=== PATIENT | female | born 1960 | race Caucasian/White ===

== ENCOUNTER → 2017-06-06 | Outpatient (CLI) | payer BC, MEDICARE ==
--- NOTE | 2017-06-06 13:04 | MR ---
EXAMINATION TYPE: MR lumbar spine wo con DATE OF EXAM: 06/06/2017 12:48 PM COMPARISON: 01/25/2013 HISTORY: Low back pain radiating into rt leg Multiplanar, MultiSpin echo imaging of the lumbar spine was performed. L1-L2: Normal disc appearance without desiccation. No herniation, protrusion or disc bulging. No ca nal stenosis is present. Foramina are patent bilaterally. L2-L3: Vacuum disc changes are again noted. Degenerative endplate marrow changes identified. Mild pos terocentral disc protrusion. No evidence for lateral recess stenosis or central stenosis. Visualized foramina are patent bilaterally. Ventral spurring is noted. L3 hemangioma again seen. L3-L4: Normal disc appearance without desiccation. No herniation, protrusion or disc bulging. No ca nal stenosis is present. Foramina are patent bilaterally. L4-L5: Mild disc desiccation noted. Mild posterocentral disc bulge. No herniation identified. No evid ence for central stenosis or foraminal encroachment. No evidence for foraminal encroachment. Mild fac et joint arthropathy. L5-S1: Mild disc desiccation seen. 2 mm anterolisthesis L5 on S1. Severe facet joint arthropathy. Mil d disc bulging posteriorly. No evidence for lateral recess stenosis or central stenosis. Lumbar segments are intact. No paraspinal masses are identified. Conus medullaris has a normal appe arance. IMPRESSION: 1. Progressive degenerative disc disease at L2-3 with the mild posterocentral disc protrusion. 2. Mild disc desiccation L4-5 and L5-S1. Mild disc bulging at each of these levels. 3. Grade 1 anterolisthesis L5 on S1.
== END | disposition home or self-care (01) ==
LOC: RADMRIMAIN 12:05
PROVIDERS: ATTEND Psychiatry & Neurology Neurology
DX: M51.36 Other intervertebral disc degeneration, lumbar region (principal); M51.26 Other intervertebral disc displacement, lumbar region; M47.816 Spondylosis without myelopathy or radiculopathy, lumbar region
CPT/HCPCS: 72148

== ENCOUNTER → 2017-07-28 | Outpatient (CLI) | payer BC, MEDICARE ==
[2017-07-28 12:05] LABS: ALT 54 U/L (9-52); AST 29 U/L (14-36); Alkaline Phosphatase 68 U/L (38-126); Anion Gap 8 mmol/L; Blood Urea Nitrogen 16 mg/dL (7-17); CH 29.4; CHCM 33.3; Calcium 9.8 mg/dL (8.4-10.2); Carbon Dioxide 25 mmol/L (22-30); Chloride 108 mmol/L (98-107); Glucose 81 mg/dL (74-99); HCT 40.6 % (34.0-46.0); HDW 2.91; HGB 13.3 gm/dL (11.4-16.0); MCH 29.1 pg (25.0-35.0); MCHC 32.8 g/dL (31.0-37.0); MCV 88.7 fL (80.0-100.0); Mean Platelet Volume 7.6; Non-African American GFR(MDRD) >60 (>60 ml/min/1.73 sqM); Potassium 4.4 mmol/L (3.5-5.1); RBC 4.58 m/uL (3.80-5.40); RDW 14.1 % (11.5-15.5); Sodium 141 mmol/L (137-145); Total Bilirubin 1.1 mg/dL (0.2-1.3); WBC 5.7 k/uL (3.8-10.6)
[2017-07-28 12:21] LABS: Rheumatoid Factor, Qnt 174 IU/mL (<12)
[2017-07-28 13:24] LABS: Erythrocyte Sedimentation Rate 9 mm/hr (0-20)
== END | disposition home or self-care (01) ==
LOC: LABWHC1 11:32
PROVIDERS: ATTEND Internal Medicine
DX: M06.9 Rheumatoid arthritis, unspecified (principal)
CPT/HCPCS: 36415; 80053; 82746; 85027; 85652; 86431

== ENCOUNTER → 2017-08-08 | Outpatient (CLI) | payer BC, MEDICARE ==
--- NOTE | 2017-08-08 16:35 | US ---
EXAMINATION TYPE: US axilla RT DATE OF EXAM: 08/08/2017 COMPARISON: NONE CLINICAL HISTORY: R22.9 Right Axilla Mass. Right axilla tenderness x 1 month, no palpable by patient or physician, no recent infection or illness Scanned right axilla and single mildly enlarged right axillary lymph node measures 1.3 cm in short ax is and demonstrates eccentric cortical thickening of 5 mm. IMPRESSION: Minimally enlarged mildly suspicious right axillary lymph node demonstrates eccentric co rtical thickening. This appears to be a deep lymph node. Surveillance could be performed. Mammography is also recommended if not recently performed.
== END | disposition home or self-care (01) ==
LOC: RADUSWWP 15:59
PROVIDERS: ATTEND Internal Medicine
DX: R22.9 Localized swelling, mass and lump, unspecified (principal); Z88.0 Allergy status to penicillin; Z88.2 Allergy status to sulfonamides; Z88.1 Allergy status to other antibiotic agents; Z88.5 Allergy status to narcotic agent; Z88.6 Allergy status to analgesic agent; Z88.8 Allergy status to other drugs, medicaments and biological substances; Z91.030 Bee allergy status; Z91.018 Allergy to other foods

== ENCOUNTER → 2017-08-22 | Outpatient (CLI) | payer BC, MEDICARE ==
--- NOTE | 2017-08-22 11:57 | MM ---
Reason for exam: clinical finding. Last mammogram was performed 12 years and 8 months ago. Physical Findings: Nurse did not find any significant physical abnormalities on exam. MG 3D Diag Mammo W/Cad LOGAN Bilateral CC and MLO view(s) were taken. Prior study comparison: December 28, 2004, bilateral screening mammogram. The breast tissue is heterogeneously dense. This may lower the sensitivity of mammography. No suspicious abnormality on the left breast. Upper outer quadrant focal asymmetry on the right breast 10cm from nipple. Possible summation artifact. Precautionary ultrasound will be performed. These results were verbally communicated with the patient and result sheet given to the patient on 08/22/17. ASSESSMENT: Incomplete: need additional imaging evaluation, BI-RAD 0 RECOMMENDATION: Ultrasound of the right breast. (upper outer quadrant)
--- NOTE | 2017-08-22 11:58 | USB ---
Reason for exam: additional evaluation requested from abnormal screening. US Breast Limited RT Right breast ultrasound demonstrates no cystic or solid lesion seen. No suspicious sonographic finding. These results were verbally communicated with the patient and result sheet given to the patient on 08/22/17. ASSESSMENT: Negative, BI-RAD 1 RECOMMENDATION: Routine screening mammogram of both breasts in 1 year.
== END | disposition home or self-care (01) ==
LOC: RADMAMWWP 09:36
PROVIDERS: ATTEND Internal Medicine
DX: R92.8 Other abnormal and inconclusive findings on diagnostic imaging of breast (principal); N64.4 Mastodynia; N63.0 Unspecified lump in unspecified breast
CPT/HCPCS: 76642; G0204; G0279

== ENCOUNTER → 2017-11-10 | Outpatient (CLI) | payer BC, MEDICARE ==
[2017-11-10 14:05] LABS: INR 1.6 (<1.2); Prothrombin Time 14.4 sec (9.0-12.0)
== END | disposition home or self-care (01) ==
LOC: EDSTATUS 11:32 → LABWHC1 13:28
PROVIDERS: ATTEND Internal Medicine
DX: M06.9 Rheumatoid arthritis, unspecified (principal); R94.5 Abnormal results of liver function studies; Z86.718 Personal history of other venous thrombosis and embolism
CPT/HCPCS: 36415; 85610

== ENCOUNTER → 2017-12-13 | Outpatient (CLI) | payer BC, MEDICARE ==
[2017-12-13 20:50] LABS: Cardiolipin Ab IgG Interp NEGATIVE (NEGATIVE); Cardiolipin Ab IgM Interp NEGATIVE (NEGATIVE); Cardiolipin IgA Antibody <0.5 U/mL; Cardiolipin IgM Antibody 2.8 U/mL
== END | disposition home or self-care (01) ==
LOC: LABWHC1 13:53
PROVIDERS: ATTEND Internal Medicine Hematology & Oncology
DX: I82.409 Acute embolism and thrombosis of unspecified deep veins of unspecified lower extremity (principal)
CPT/HCPCS: 36415; 86146; 86147

== ENCOUNTER → 2018-12-04 | Outpatient (CLI) | payer BC, MEDICARE ==
[2018-12-04 13:07] LABS: HCT 41.7 % (34.0-46.0); HGB 13.2 gm/dL (11.4-16.0); MCH 27.8 pg (25.0-35.0); MCHC 31.6 g/dL (31.0-37.0); Platelet Count 290 k/uL (150-450); RBC 4.73 m/uL (3.80-5.40); RDW 14.5 % (11.5-15.5); WBC 6.2 k/uL (3.8-10.6)
[2018-12-04 13:14] LABS: INR 1.8 (<1.2); Prothrombin Time 17.4 sec (9.0-12.0)
[2018-12-04 15:22] LABS: Erythrocyte Sedimentation Rate 9 mm/hr (0-20)
[2018-12-04 19:03] LABS: Albumin 4.2 g/dL (3.80-4.90); Anion Gap 9.2 mmol/L (4.00-12.00); Bilirubin, Conjugated 0.2 mg/dL (0.20-0.40); Bilirubin,Unconjugated 0.5 mg/dL; Carbon Dioxide 24.8 mmol/L (21.6-31.8); Globulin 2.1 g/dL (1.6-3.3); Potassium 3.8 mmol/L (3.5-5.5); Total Bilirubin 0.7 mg/dL (0.2-1.2); Total Protein 6.3 g/dL (6.2-8.2)
[2018-12-04 19:07] LABS: Folate, Serum 3.2 ng/mL; Vitamin D 25 Hydroxy 15.6 ng/mL (30.0-100.0)
== END | disposition home or self-care (01) ==
LOC: LABWHC1 12:15
PROVIDERS: ATTEND Internal Medicine
DX: E55.9 Vitamin D deficiency, unspecified (principal); M06.9 Rheumatoid arthritis, unspecified; Z79.01 Long term (current) use of anticoagulants
CPT/HCPCS: 36415; 80053; 82248; 82306; 82607; 82746; 84439; 84443; 85027; 85610; 85652; 86431

== ENCOUNTER → 2019-03-13 | Outpatient (CLI) | payer BC, MEDICARE ==
--- NOTE | 2019-03-14 13:24 | MM ---
Reason for exam: screening (asymptomatic). Last mammogram was performed 1 year and 7 months ago. Physical Findings: A clinical breast exam by your physician is recommended on an annual basis and results should be correlated with mammographic findings. MG 3D Screening Mammo W/Cad Bilateral CC and MLO view(s) were taken. Prior study comparison: August 22, 2017, bilateral MG 3d diag mammo w/cad LOGAN. December 28, 2004, bilateral screening mammogram. The breast tissue is heterogeneously dense. This may lower the sensitivity of mammography. There is a oval left upper outer quadrant middle depth mass. Right lateral middle depth distortion on 3D CC. ASSESSMENT: Incomplete: need additional imaging evaluation, BI-RAD 0 RECOMMENDATION: Special view mammogram of both breasts. If lesion persists on supplemental views, image directed ultrasound is recommended. [facility] will attempt to contact patient to return for supplemental views and ultrasound if indicated.
== END | disposition home or self-care (01) ==
LOC: RADMAMWWP 09:26
PROVIDERS: ATTEND Internal Medicine
DX: Z12.31 Encounter for screening mammogram for malignant neoplasm of breast (principal)
CPT/HCPCS: 77063; 77067

== ENCOUNTER → 2019-03-19 | Outpatient (CLI) | payer BC, MEDICARE ==
--- NOTE | 2019-03-19 14:45 | MM ---
Reason for exam: additional evaluation requested from abnormal screening. Last mammogram was performed less than 1 month ago. Physical Findings: Nurse did not find any significant physical abnormalities on exam. MG 3D Work Up W/Cad LOGAN Bilateral spot compression CC and spot compression MLO view(s) were taken. ML view(s) were taken of the left breast. Prior study comparison: March 13, 2019, bilateral MG 3d screening mammo w/cad. August 22, 2017, bilateral MG 3d diag mammo w/cad LOGAN. There are scattered fibroglandular densities. Benign appearing bilateral calcifications. These results were verbally communicated with the patient and result sheet given to the patient on 03/19/19. ASSESSMENT: Incomplete: need additional imaging evaluation, BI-RAD 0 RECOMMENDATION: Ultrasound of both breasts.
--- NOTE | 2019-03-19 14:46 | USB ---
Reason for exam: additional evaluation requested from abnormal screening. US Breast Workup Limited LOGAN Left limited breast ultrasound including focal area of concern, retroareolar and axilla demonstrates a 0.7 x 0.3 x 0.8cm cystic lesion at 2 o'clock and a 0.8 x 0.3 x 0.5cm mixed lesion at 3 o'clock. Right limited breast ultrasound including focal area of concern, retroareolar and axilla demonstrates no cystic or solid lesion seen. These results were verbally communicated with the patient and result sheet given to the patient on 03/19/19. ASSESSMENT: Probably benign, BI-RAD 3 RECOMMENDATION: Follow-up diagnostic mammogram and ultrasound of both breasts in 6 months.
== END | disposition home or self-care (01) ==
LOC: RADMAMWWP 13:14
PROVIDERS: ATTEND Internal Medicine
DX: R92.8 Other abnormal and inconclusive findings on diagnostic imaging of breast (principal)
CPT/HCPCS: 77062; 77066

== ENCOUNTER → 2019-07-26 | Outpatient (CLI) | payer BC, MEDICARE ==
[2019-07-26 12:28] LABS: HCT 40.2 % (34.0-46.0); MCH 30.1 pg (25.0-35.0); MCHC 34.9 g/dL (31.0-37.0); MCV 86.2 fL (80.0-100.0); Mean Platelet Volume 6.3; Platelet Count 317 k/uL (150-450); RBC 4.66 m/uL (3.80-5.40); RDW 13.2 % (11.5-15.5); WBC 11.5 k/uL (3.8-10.6)
[2019-07-26 12:41] LABS: INR 0.9 (<1.2); Prothrombin Time 10.1 sec (9.0-12.0)
[2019-07-26 13:46] LABS: Erythrocyte Sedimentation Rate 9 mm/hr (0-20)
[2019-07-26 19:01] LABS: Folate, Serum 5.9 ng/mL
[2019-07-26 19:14] LABS: Albumin 4.1 g/dL (3.80-4.90); Albumin/Globulin Ratio 2.05 (1.60-3.17); Bilirubin, Conjugated 0.4 mg/dL (0.20-0.40); Bilirubin,Unconjugated 1.3 mg/dL; Total Bilirubin 1.7 mg/dL (0.3-1.2); Total Protein 6.1 g/dL (6.2-8.2)
== END | disposition home or self-care (01) ==
LOC: LABWHC1 11:38
PROVIDERS: ATTEND Internal Medicine
DX: M06.9 Rheumatoid arthritis, unspecified (principal); E55.9 Vitamin D deficiency, unspecified; D68.318 Other hemorrhagic disorder due to intrinsic circulating anticoagulants, antibodies, or inhibitors; Z79.899 Other long term (current) drug therapy
CPT/HCPCS: 36415; 80076; 82306; 82607; 82746; 84439; 84443; 85027; 85610; 85652; 86431

== ENCOUNTER → 2019-09-20 | Outpatient (CLI) | payer BC, MEDICARE ==
--- NOTE | 2019-09-20 11:50 | MM ---
Reason for exam: follow-up at short interval from prior study. Last mammogram was performed 6 months ago. Physical Findings: Nurse did not find any significant physical abnormalities on exam. MG 3D Diag Mammo W/Cad LOGAN Bilateral CC and MLO view(s) were taken. XCCL view(s) were taken of the right breast. Prior study comparison: March 19, 2019, bilateral MG 3d work up w/cad LOGAN. March 13, 2019, bilateral MG 3d screening mammo w/cad. There are scattered fibroglandular densities. There is chronic nodularity bilaterally. No significant new findings when compared with previous films. These results were verbally communicated with the patient and result sheet given to the patient on 09/20/19. ASSESSMENT: Incomplete: need additional imaging evaluation, BI-RAD 0 RECOMMENDATION: Ultrasound of both breasts. (upper outer quadrant as follow up from prior)
--- NOTE | 2019-09-20 11:54 | USB ---
Reason for exam: follow-up at short interval from prior study. US Breast Limited BILAT Right limited breast ultrasound including focal area of concern, retroareolar and axilla demonstrates a 2.3 x 2.5 x 1.3cm lymph node at the axilla. Left limited breast ultrasound including focal area of concern, retroareolar and axilla demonstrates a 0.5 x 0.6 x 0.4cm oval, lobular, cystic, benign lesion at 2 o'clock, a 0.8 x 0.4 x 0.2cm oval, cystic, benign lesion at 3 o'clock, questionable ductal ectasia and a 2.1 x 2.3 x 0.8cm lymph node at the axilla. Scanned bilateral upper outer quadrants. These results were verbally communicated with the patient and result sheet given to the patient on 09/20/19. ASSESSMENT: Probably benign, BI-RAD 3 RECOMMENDATION: Follow-up diagnostic mammogram of both breasts in 6 months. Manage on a clinical basis with regard to mildly enlarged bilateral axillary lymph nodes likely reactive. Unchanged in appearance on mammogram back to 2017. These can be followed clinically.
== END | disposition home or self-care (01) ==
LOC: RADMAMWWP 09:27
PROVIDERS: ATTEND Internal Medicine
DX: R92.8 Other abnormal and inconclusive findings on diagnostic imaging of breast (principal)
CPT/HCPCS: 77062; 77066

== ENCOUNTER → 2020-04-24 | Outpatient (CLI) | payer BC, MEDICARE ==
[2020-04-24 09:21] LABS: Basophils # (A) 0.1 k/uL (0-0.2); Basophils % (A) 1 %; Eosinophils # (A) 0.1 k/uL (0-0.7); Eosinophils % (A) 1 %; HCT 38.9 % (34.0-46.0); HGB 12.6 gm/dL (11.4-16.0); Lymphocytes # (A) 1.8 k/uL (1.0-4.8); Lymphocytes % (A) 30 %; MCH 28.6 pg (25.0-35.0); MCHC 32.4 g/dL (31.0-37.0); MCV 88.1 fL (80.0-100.0); Monocytes # (A) 0.3 k/uL (0-1.0); Monocytes % (A) 5 %; Neutrophils # (A) 3.9 k/uL (1.3-7.7); Neutrophils % (A) 62 %; Platelet Count 312 k/uL (150-450); RBC 4.42 m/uL (3.80-5.40); RDW 14.7 % (11.5-15.5); WBC 6.2 k/uL (3.8-10.6)
[2020-04-24 09:31] LABS: INR 1.2 (<1.2); Prothrombin Time 12.3 sec (9.0-12.0)
[2020-04-24 09:35] LABS: ALT 43 U/L (4-34); AST 34 U/L (14-36); African American GFR (CKD) >90 (>60 ml/min/1.73 sqM); Alkaline Phosphatase 70 U/L (38-126); Anion Gap 6 mmol/L; Blood Urea Nitrogen 16 mg/dL (7-17); Calcium 9.2 mg/dL (8.4-10.2); Carbon Dioxide 25 mmol/L (22-30); Chloride 109 mmol/L (98-107); Cholesterol 237 mg/dL (<200); Glucose 98 mg/dL (74-99); HDL Cholesterol 66 mg/dL (40-60); LDL Cholesterol,Calculated 155 mg/dL (0-99); Non-African American GFR(CKD) >90 (>60 ml/min/1.73 sqM); Sodium 140 mmol/L (137-145); Total Bilirubin 1.2 mg/dL (0.2-1.3); Total Protein 6.8 g/dL (6.3-8.2); Triglycerides 80 mg/dL (<150)
[2020-04-24 09:51] LABS: T4, Free (Free Thyroxine) 0.92 ng/dL (0.78-2.19)
--- NOTE | 2020-04-28 11:56 | MM ---
Reason for exam: additional evaluation requested from prior study. Last mammogram was performed 7 months ago. History: Patient is postmenopausal. Physical Findings: Nurse did not find any significant physical abnormalities on exam. MG 3D Diag Mammo W/Cad LOGAN Bilateral CC, MLO, and XCCL view(s) were taken. Prior study comparison: September 20, 2019, bilateral MG 3d diag mammo w/cad LOGAN. March 19, 2019, bilateral MG 3d work up w/cad LOGAN. The breast tissue is heterogeneously dense. This may lower the sensitivity of mammography. There is chronic nodularity bilaterally. These results were verbally communicated with the patient and result sheet given to the patient on 04/24/20. ASSESSMENT: Benign, BI-RAD 2 RECOMMENDATION: Routine screening mammogram of both breasts in 6 months.
--- NOTE | 2020-04-28 11:57 | USB ---
Reason for exam: follow-up at short interval from prior study. History: Patient is postmenopausal. US Breast Limited BILAT Right limited breast ultrasound including focal area of concern, retroareolar and axilla demonstrates a 11mm lymph node at the axilla tail. Left limited breast ultrasound including focal area of concern, retroareolar and axilla demonstrates a 8mm lymph node at the axilla tail. These results were verbally communicated with the patient and result sheet given to the patient on 04/24/20. ASSESSMENT: Benign, BI-RAD 2 RECOMMENDATION: Routine screening mammogram of both breasts in 6 months. Back on schedule.
== END | disposition home or self-care (01) ==
LOC: RADMAMWWP 08:42
PROVIDERS: ATTEND Internal Medicine
DX: R92.8 Other abnormal and inconclusive findings on diagnostic imaging of breast (principal); E03.9 Hypothyroidism, unspecified; M06.9 Rheumatoid arthritis, unspecified; Z79.01 Long term (current) use of anticoagulants; Z79.899 Other long term (current) drug therapy
CPT/HCPCS: 36415; 77062; 77066; 80053; 80061; 80299; 82306; 82607; 84439; 84443; 84481; 85025; 85610

== ENCOUNTER → 2020-07-01 | Outpatient (CLI) | payer BC, MEDICARE ==
[2020-07-01 13:42] LABS: INR 1.4 (<1.2); Prothrombin Time 13.5 sec (9.0-12.0)
== END | disposition home or self-care (01) ==
LOC: LABWHC1 12:44
PROVIDERS: ATTEND Orthopaedic Surgery Hand Surgery
DX: Z01.818 Encounter for other preprocedural examination (principal)
CPT/HCPCS: 36415; 85610

== ENCOUNTER 2020-07-04 16:33 | Emergency (ER) | payer BC, MEDICARE ==
[2020-07-04 16:47] VITALS: TEMP 98.1
[2020-07-04] MEDS ORDERED: SODIUM CHLORIDE 0.9% 1,000 ML IV STA (16:53)
[2020-07-04] MEDS ORDERED: MORPHINE SULFATE 4 MG/ML SYRINGE IV STA (16:53)
--- NOTE | 2020-07-04 16:54 | ED ---
SOB HPI - General Chief Complaint: Shortness of Breath Stated Complaint: trouble breathing Time Seen by Provider: 07/04/20 16:53 Source: patient, RN notes reviewed, old records reviewed Mode of arrival: ambulatory Limitations: no limitations - History of Present Illness Initial Comments: This is a 5-year-old female DF for evaluation she has left under arm pain, patient did recently have carpal surgery L surgery. Head pain and left-sided of her chest. Surgery done by Dr. Rodgers about a week ago she started Coumadin yesterday has history of DVT and PE coming in for concern of possible PE. Otherwise patient has no shortness of breath no cough or congestion no other significant symptoms. Patient here for rule out PE MD Complaint: chest pain (Left-sided chest pain under arm pain), anxiety (Patient feels like she does have a PE) -: days(s) Radiation: left arm Severity: mild Severity scale (1-10): 3 Quality: aching Consistency: constant Improves With: nothing Worsens With: nothing Known History Of: DVT Context: other (Recent surgery) Associated Symptoms: chest pain Treatments Prior to Arrival: none - Related Data Home Medications Medication Instructions Recorded Confirmed Celecoxib [CeleBREX] 200 mg PO DAILY 07/04/20 07/04/20 Ergocalciferol [Vitamin D2] 50,000 unit PO MORRIS 07/04/20 07/04/20 Gabapentin 300 mg PO DAILY 07/04/20 07/04/20 LORazepam [Ativan] 0.5 mg PO DAILY PRN 07/04/20 07/04/20 Meloxicam [Mobic] 7.5 mg PO DAILY 07/04/20 07/04/20 Warfarin Sodium [Jantoven] 6 mg PO DAILY 07/04/20 07/04/20 metHOTREXate sodium [Methotrexate] 20 mg PO MORRIS 07/04/20 07/04/20 Allergies Allergy/AdvReac Type Severity Reaction Status Date / Time cefaclor [From Ceclor] Allergy Unknown Verified 07/04/20 18:57 cephalexin [From Keflex] Allergy Unknown Verified 07/04/20 18:57 cyclobenzaprine Allergy Unknown Verified 07/04/20 18:57 [From Flexeril] Penicillins Allergy Unknown Verified 07/04/20 18:57 Sulfa (Sulfonamide Allergy Unknown Verified 07/04/20 18:57 Antibiotics) acetaminophen [From Tylenol] AdvReac Rash/Hives Verified 07/04/20 18:57 codeine AdvReac Rash/Hives Verified 07/04/20 18:57 erythromycin base AdvReac Rash/Hives Verified 07/04/20 18:57 Review of Systems ROS Statement: Those systems with pertinent positive or pertinent negative responses have been documented in the HPI. ROS Other: All systems not noted in ROS Statement are negative. Past Medical History Additional Past Medical History / Comment(s): Clotting disorder. arthritis. 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 plate neck Past Psychological History: No Psychological Hx Reported Smoking Status: Never smoker Past Alcohol Use History: None Reported Past Drug Use History: None Reported General Exam Limitations: no limitations General appearance: alert, in no apparent distress Head exam: Present: atraumatic, normocephalic, normal inspection Eye exam: Present: normal appearance, PERRL, EOMI. Absent: scleral icterus, conjunctival injection, periorbital swelling ENT exam: Present: normal exam, mucous membranes moist Neck exam: Present: normal inspection. Absent: tenderness, meningismus, lymphadenopathy Respiratory exam: Present: normal lung sounds bilaterally. Absent: respiratory distress, wheezes, rales, rhonchi, stridor Cardiovascular Exam: Present: regular rate, normal rhythm, normal heart sounds. Absent: systolic murmur, diastolic murmur, rubs, gallop, clicks GI/Abdominal exam: Present: soft, normal bowel sounds. Absent: distended, tenderness, guarding, rebound, rigid Extremities exam: Present: normal inspection, full ROM, normal capillary refill. Absent: tenderness, pedal edema, joint swelling, calf tenderness Back exam: Present: normal inspection Neurological exam: Present: alert, oriented X3, CN II-XII intact Psychiatric exam: Present: normal affect, normal mood Skin exam: Present: warm, dry, intact, normal color. Absent: rash Course Vital Signs 07/04/20 07/04/20 16:42 18:45 Temperature 98.1 F Pulse Rate 64 69 Respiratory 20 18 Rate Blood Pressure 194/79 162/82 O2 Sat by Pulse 97 98 Oximetry - Reevaluation(s) Reevaluation #1: 07/04/20 19:02 Medical records reviewed Reevaluation #2: 07/04/20 19:02 Spoke patient regarding findings and symptoms here in the emergency room Reevaluation #3: 07/04/20 19:02 Patient informed of negative speed test, she is happy with results, Medical Decision Making - Medical Decision Making 59 female DF for evaluation rule out PE history of DVT PE been off Coumadin secondary surgery did start Coumadin again yesterday although not currently therapeutic. Patient will continue medication, CT negative for PE and patient can be discharged home - Lab Data Result diagrams: 07/04/20 17:14 07/04/20 17:14 Lab Results 07/04/20 07/04/20 07/04/20 Range/Units 17:14 17:14 17:14 WBC 6.7 (3.8-10.6) k/uL RBC 4.65 (3.80-5.40) m/uL Hgb 13.9 (11.4-16.0) gm/dL Hct 41.6 (34.0-46.0) % MCV 89.5 (80.0-100.0) fL MCH 29.8 (25.0-35.0) pg MCHC 33.4 (31.0-37.0) g/dL RDW 14.1 (11.5-15.5) % Plt Count 315 (150-450) k/uL Neutrophils % 53 % Lymphocytes % 35 % Monocytes % 7 % Eosinophils % 2 % Basophils % 1 % Neutrophils # 3.6 (1.3-7.7) k/uL Lymphocytes # 2.4 (1.0-4.8) k/uL Monocytes # 0.5 (0-1.0) k/uL Eosinophils # 0.1 (0-0.7) k/uL Basophils # 0.1 (0-0.2) k/uL PT 10.3 (9.0-12.0) sec INR 1.0 (<1.2) APTT 22.2 (22.0-30.0) sec D-Dimer 0.70 H (<0.60) mg/L FEU Sodium 139 (137-145) mmol/L Potassium 4.1 (3.5-5.1) mmol/L Chloride 106 (98-107) mmol/L Carbon Dioxide 25 (22-30) mmol/L Anion Gap 8 mmol/L BUN 19 H (7-17) mg/dL Creatinine 0.80 (0.52-1.04) mg/dL Est GFR (CKD-EPI)AfAm >90 (>60 ml/min/1.73 sqM) Est GFR (CKD-EPI)NonAf 81 (>60 ml/min/1.73 sqM) Glucose 167 H (74-99) mg/dL Calcium 9.6 (8.4-10.2) mg/dL Magnesium 2.2 (1.6-2.3) mg/dL Total Bilirubin 0.9 (0.2-1.3) mg/dL AST 27 (14-36) U/L ALT 20 (4-34) U/L Alkaline Phosphatase 79 (38-126) U/L Troponin I (0.000-0.034) ng/mL NT-Pro-B Natriuret Pep pg/mL Total Protein 7.2 (6.3-8.2) g/dL Albumin 4.2 (3.5-5.0) g/dL 07/04/20 07/04/20 Range/Units 17:14 17:14 WBC (3.8-10.6) k/uL RBC (3.80-5.40) m/uL Hgb (11.4-16.0) gm/dL Hct (34.0-46.0) % MCV (80.0-100.0) fL MCH (25.0-35.0) pg MCHC (31.0-37.0) g/dL RDW (11.5-15.5) % Plt Count (150-450) k/uL Neutrophils % % Lymphocytes % % Monocytes % % Eosinophils % % Basophils % % Neutrophils # (1.3-7.7) k/uL Lymphocytes # (1.0-4.8) k/uL Monocytes # (0-1.0) k/uL Eosinophils # (0-0.7) k/uL Basophils # (0-0.2) k/uL PT (9.0-12.0) sec INR (<1.2) APTT (22.0-30.0) sec D-Dimer (<0.60) mg/L FEU Sodium (137-145) mmol/L Potassium (3.5-5.1) mmol/L Chloride (98-107) mmol/L Carbon Dioxide (22-30) mmol/L Anion Gap mmol/L BUN (7-17) mg/dL Creatinine (0.52-1.04) mg/dL Est GFR (CKD-EPI)AfAm (>60 ml/min/1.73 sqM) Est GFR (CKD-EPI)NonAf (>60 ml/min/1.73 sqM) Glucose (74-99) mg/dL Calcium (8.4-10.2) mg/dL Magnesium (1.6-2.3) mg/dL Total Bilirubin (0.2-1.3) mg/dL AST (14-36) U/L ALT (4-34) U/L Alkaline Phosphatase (38-126) U/L Troponin I <0.012 (0.000-0.034) ng/mL NT-Pro-B Natriuret Pep 41 pg/mL Total Protein (6.3-8.2) g/dL Albumin (3.5-5.0) g/dL - EKG Data -: EKG Interpreted by Me (EKG shows sinus rhythm 60 [place] 202 QRS 96 QTc 424) - Radiology Data Radiology results: report reviewed (CT negative for PE), image reviewed Disposition Clinical Impression: Left arm pain Narrative: ro PE Disposition: HOME SELF-CARE Condition: Good Instructions (If sedation given, give patient instructions): Arm Pain (ED) Is patient prescribed a controlled substance at d/c from ED?: No Referrals: Luis Felipe Gay MD [Primary Care Provider] - 1-2 days
[2020-07-04 17:32] LABS: Basophils # (A) 0.1 k/uL (0-0.2); Basophils % (A) 1 %; Eosinophils # (A) 0.1 k/uL (0-0.7); Eosinophils % (A) 2 %; HCT 41.6 % (34.0-46.0); HGB 13.9 gm/dL (11.4-16.0); Lymphocytes # (A) 2.4 k/uL (1.0-4.8); Lymphocytes % (A) 35 %; MCH 29.8 pg (25.0-35.0); MCHC 33.4 g/dL (31.0-37.0); MCV 89.5 fL (80.0-100.0); Monocytes # (A) 0.5 k/uL (0-1.0); Monocytes % (A) 7 %; Neutrophils # (A) 3.6 k/uL (1.3-7.7); Neutrophils % (A) 53 %; Platelet Count 315 k/uL (150-450); RBC 4.65 m/uL (3.80-5.40); RDW 14.1 % (11.5-15.5); WBC 6.7 k/uL (3.8-10.6)
[2020-07-04 17:37] LABS: ALT 20 U/L (4-34); AST 27 U/L (14-36); African American GFR (CKD) >90 (>60 ml/min/1.73 sqM); Albumin 4.2 g/dL (3.5-5.0); Alkaline Phosphatase 79 U/L (38-126); Anion Gap 8 mmol/L; Blood Urea Nitrogen 19 mg/dL (7-17); Calcium 9.6 mg/dL (8.4-10.2); Carbon Dioxide 25 mmol/L (22-30); Chloride 106 mmol/L (98-107); Glucose 167 mg/dL (74-99); Magnesium 2.2 mg/dL (1.6-2.3); Non-African American GFR(CKD) 81 (>60 ml/min/1.73 sqM); Potassium 4.1 mmol/L (3.5-5.1); Sodium 139 mmol/L (137-145); Total Bilirubin 0.9 mg/dL (0.2-1.3); Total Protein 7.2 g/dL (6.3-8.2)
[2020-07-04 17:41] LABS: Partial Thromboplastin Time 22.2 sec (22.0-30.0); Prothrombin Time 10.3 sec (9.0-12.0)
[2020-07-04 17:46] LABS: D-Dimer 0.7 mg/L FEU (<0.60)
--- NOTE | 2020-07-04 18:40 | CT ---
EXAMINATION TYPE: CT angio chest DATE OF EXAM: 07/04/2020 COMPARISON: None HISTORY: LEFT SIDE CHEST PAIN, SOB CT DLP: 441.5 mGycm Automated exposure control for dose reduction was used. CONTRAST: Performed with IV Contrast, patient injected with 100 mL of Isovue 370. There are 3-D post processed images. The lungs are clear of consolidation. There is no evidence of a pulmonary mass. There is no pericardi al effusion. There is no pleural effusion. There is normal contrast opacification of the pulmonary arteries. There are no filling defects. There is mild aneurysm of the ascending aorta that measures 4 cm. There is no dissection. The bony thorax is intact. IMPRESSION: No evidence of pulmonary embolism. Mild cardiomegaly and mild aneurysm of the thoracic aorta.
[2020-07-04 19:02] VITALS: BP 165/80; PULSE 80; RESP 16
== END 2020-07-04 19:01 | disposition home or self-care (01) ==
LOC: EC 16:33
DX: M79.602 Pain in left arm (principal); M19.90 Unspecified osteoarthritis, unspecified site; Z79.01 Long term (current) use of anticoagulants; Z79.1 Long term (current) use of non-steroidal anti-inflammatories (NSAID); Z79.899 Other long term (current) drug therapy; Z88.1 Allergy status to other antibiotic agents; Z88.8 Allergy status to other drugs, medicaments and biological substances; Z88.5 Allergy status to narcotic agent; Z88.2 Allergy status to sulfonamides; Z88.0 Allergy status to penicillin; Z88.6 Allergy status to analgesic agent; Z86.711 Personal history of pulmonary embolism; Z86.718 Personal history of other venous thrombosis and embolism
CPT/HCPCS: 36415; 93005; 85379; 83880; 80053; 83735; 84484; 85025; 85610; 85730; 71275; 99285; 96360; Q9967

== ENCOUNTER → 2021-01-07 | Outpatient (CLI) | payer BC, MEDICARE ==
--- NOTE | 2021-01-07 12:03 | MM ---
Reason for exam: follow-up at short interval from prior study. Last mammogram was performed 8 months ago. History: Patient is postmenopausal. Physical Findings: Nurse Summary: 0.5cm nodule in the left breast at 4 o'clock (nurse ignacio). MG 3D Diag Mammo W/Cad LOGAN Bilateral CC and MLO view(s) were taken. Prior study comparison: April 24, 2020, bilateral MG 3d diag mammo w/cad LOGAN. September 20, 2019, bilateral MG 3d diag mammo w/cad LOGAN. There are scattered fibroglandular densities. Finding: There are typically benign vascular, round, linear calcifications in both breasts. There is a chronic nodularity in the left breast. There is no discrete abnormality. These results were verbally communicated with the patient and result sheet given to the patient on 01/07/21. ASSESSMENT: Incomplete: need additional imaging evaluation, BI-RAD 0 RECOMMENDATION: Ultrasound of the left breast.
--- NOTE | 2021-01-07 12:05 | USB ---
Reason for exam: additional evaluation requested from abnormal screening. History: Patient is postmenopausal. US Breast Limited LT Left limited breast ultrasound including focal area of concern, retroareolar and axilla demonstrates a 1.0 x 0.4 x 0.6cm oval, mixed lesion at 4 o'clock, stable from ultrasound of 09/20/19 3 o'clock lesion and a 1.8cm lymph node at the axilla. These results were verbally communicated with the patient and result sheet given to the patient on 01/07/21. ASSESSMENT: Benign, BI-RAD 2 RECOMMENDATION: Routine screening mammogram of both breasts. Manage patient on a clinical basis.
== END | disposition home or self-care (01) ==
LOC: RADMAMWWP 10:15
PROVIDERS: ATTEND Internal Medicine
DX: N63.20 Unspecified lump in the left breast, unspecified quadrant (principal); R92.8 Other abnormal and inconclusive findings on diagnostic imaging of breast
CPT/HCPCS: 77062; 77066

== ENCOUNTER → 2021-06-29 | Outpatient (CLI) | payer BC, MEDICARE ==
[2021-06-29 16:11] LABS: HCT 41.5 % (37.2-46.3); MCH 27.4 pg (27.0-32.0); MCHC 31.3 g/dL (32.0-37.0); MCV 87.4 fL (80.0-97.0); Mean Platelet Volume 11.4 fL (9.5-12.2); Platelet Count 339 X 10*3/uL (140-440); RBC 4.75 X 10*6/uL (4.10-5.20); RDW 13.4 % (11.5-14.5); WBC 9.06 X 10*3/uL (4.50-10.00)
[2021-06-29 21:51] LABS: African American GFR (CKD) 86.7 (60.0-200.0); Albumin 3.9 g/dL (3.8-4.9); Albumin/Globulin Ratio 1.55 (1.60-3.17); Anion Gap 15.8 mmol/L (4.00-12.00); BUN/Creat Ratio 18.53 Ratio (12.00-20.00); Blood Urea Nitrogen 15.6 mg/dL (9.0-27.0); Carbon Dioxide 19.3 mmol/L (21.6-31.8); Chol/HDL Ratio 3.33 Ratio; Globulin 2.5 g/dL (1.6-3.3); HDL Cholesterol 68.8 mg/dL (40.00-60.00); LDL Cholesterol,Calculated 138.6 mg/dL (0.0-131.0); Non-African American GFR(CKD) 74.8 (60.0-200.0); Potassium 4.2 mmol/L (3.5-5.5); T4, Free (Free Thyroxine) 1.09 ng/dL (0.800-1.800); Total Bilirubin 1.3 mg/dL (0.30-1.20); Total Protein 6.5 g/dL (6.2-8.2); VLDL Calculation 21.6 mg/dL (5.00-40.00)
== END | disposition home or self-care (01) ==
LOC: LABWHC1 08:30
PROVIDERS: ATTEND Internal Medicine
DX: E78.5 Hyperlipidemia, unspecified (principal); R53.82 Chronic fatigue, unspecified
CPT/HCPCS: 36415; 80053; 80061; 82306; 82607; 84439; 84443; 84481; 85027

== ENCOUNTER 2021-09-23 17:26 | Inpatient (IN) | payer BC, MEDICARE ==
--- NOTE | 2021-09-23 17:42 | ED ---
General Adult HPI - General Stated complaint: SOB Time Seen by Provider: 09/23/21 17:26 Source: patient, EMS, RN notes reviewed, old records reviewed Mode of arrival: EMS Limitations: no limitations - History of Present Illness Initial comments: This is a 61-year-old female who presents to the emergency department complaining of difficulty breathing since . Patient states it got progressively worse. Patient states she typically gets bronchitis 3 times here in the past which she thinks this. EMS stated her pulse ox on room air was in the 70s. They put her on a nonrebreather and is still only came up into the 80s. Patient denies chest pain difficulty breathing shortest breath per patient states she did not get COVID vaccine. Patient states she has a blood clotting disorder. Patient is on Coumadin. Patient denies any abdominal pain patient denies nausea vomiting diarrhea. Patient denies headache patient denies any numbness or weakness. Patient denies any syncopal episode. - Related Data Home Medications Medication Instructions Recorded Confirmed Ergocalciferol [Vitamin D2] 50,000 unit PO MORRIS 07/04/20 09/23/21 Meloxicam [Mobic] 7.5 mg PO DAILY 07/04/20 09/23/21 Warfarin Sodium [Jantoven] 6 mg PO DAILY 07/04/20 09/23/21 metHOTREXate sodium [Methotrexate] 20 mg PO FR 07/04/20 09/23/21 Allergies Allergy/AdvReac Type Severity Reaction Status Date / Time cefaclor [From Ceclor] Allergy Unknown Verified 09/23/21 19:51 cephalexin [From Keflex] Allergy Unknown Verified 09/23/21 19:51 cyclobenzaprine Allergy Unknown Verified 09/23/21 19:51 [From Flexeril] Penicillins Allergy Unknown Verified 09/23/21 19:51 Sulfa (Sulfonamide Allergy Unknown Verified 09/23/21 19:51 Antibiotics) acetaminophen [From Tylenol] AdvReac Rash/Hives Verified 09/23/21 19:51 codeine AdvReac Rash/Hives Verified 09/23/21 19:51 erythromycin base AdvReac Rash/Hives Verified 09/23/21 19:51 Review of Systems ROS Statement: Those systems with pertinent positive or pertinent negative responses have been documented in the HPI. ROS Other: All systems not noted in ROS Statement are negative. Past Medical History Past Medical History: Deep Vein Thrombosis (DVT), Fibromyalgia, Pneumonia Additional Past Medical History / Comment(s): Clotting disorder. arthritis. 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 plate neck Past Psychological History: No Psychological Hx Reported Smoking Status: Never smoker Past Alcohol Use History: None Reported Past Drug Use History: None Reported General Exam - General Exam Comments Initial Comments: GENERAL: Patient is well-developed and well-nourished. Patient is nontoxic and well-hydrated and is in mild distress. ENT: Neck is soft and supple. No significant lymphadenopathy is noted. Oropharynx is clear. Moist mucous membranes. Neck has full range of motion without eliciting any pain. EYES: The sclera were anicteric and conjunctiva were pink and moist. Extraocular movements were intact and pupils were equal round and reactive to light. Eyelids were unremarkable. PULMONARY: Patient has crackles on the left side and in the right base. CARDIOVASCULAR: There is a regular rate and rhythm without any murmurs gallops or rubs. ABDOMEN: Soft and nontender with normal bowel sounds. SKIN: Skin is clear with no lesions or rashes and otherwise unremarkable. NEUROLOGIC: Patient is alert and oriented x3. Cranial nerves II through XII are grossly intact. Motor and sensory are also intact. Normal speech, volume and content. Symmetrical smile. MUSCULOSKELETAL: Normal extremities with adequate strength and full range of motion. No lower extremity swelling or edema. No calf tenderness. LYMPHATICS: No significant lymphadenopathy is noted PSYCHIATRIC: Normal psychiatric evaluation. Limitations: no limitations Course Vital Signs 09/23/21 09/23/21 17:29 17:58 Temperature 98.5 F Pulse Rate 78 Respiratory 16 22 Rate Blood Pressure 110/64 O2 Sat by Pulse 80 L Oximetry Medical Decision Making - Medical Decision Making EKG shows normal sinus rhythm at 84 bpm NE interval 194 QRS is 96 QT interval 352 QTC is 4:15. Patient's EKG shows no ST segment elevation or depression. Patient received 125 Solu-Medrol in route to the ER. Patient was initially put on high flow oxygen and was satting about 85%. There were no BiPAP patient's available until later eventually switched to a BiPAP machine and she was doing better felt more comfortable and she was oxygenating 88%. Patient stated she absolutely refuses to be intubated. was in the room when she was asked these questions. I spoke with Dr. Waddell agreed to admit the patient admitted the patient wrote admitting orders. I spoke with Dr. Toshia Pope felt that the patient to be admitted to the floor and I agreed. - Lab Data Result diagrams: 09/23/21 17:53 09/23/21 18:45 Lab Results 09/23/21 09/23/21 09/23/21 Range/Units 17:39 17:53 17:53 WBC 12.1 H (3.8-10.6) k/uL RBC 4.90 (3.80-5.40) m/uL Hgb 13.4 (11.4-16.0) gm/dL Hct 41.4 (34.0-46.0) % MCV 84.5 (80.0-100.0) fL MCH 27.3 (25.0-35.0) pg MCHC 32.3 (31.0-37.0) g/dL RDW 14.1 (11.5-15.5) % Plt Count 289 (150-450) k/uL MPV 9.1 Neutrophils % 80 % Lymphocytes % 11 % Monocytes % 5 % Eosinophils % 1 % Basophils % 1 % Neutrophils # 9.8 H (1.3-7.7) k/uL Lymphocytes # 1.4 (1.0-4.8) k/uL Monocytes # 0.7 (0-1.0) k/uL Eosinophils # 0.1 (0-0.7) k/uL Basophils # 0.1 (0-0.2) k/uL PT 24.2 H (9.0-12.0) sec INR 2.5 H (<1.2) APTT 29.5 (22.0-30.0) sec D-Dimer 32.13 H (<0.60) mg/L FEU Sodium (137-145) mmol/L Potassium (3.5-5.1) mmol/L Chloride (98-107) mmol/L Carbon Dioxide (22-30) mmol/L Anion Gap mmol/L BUN (7-17) mg/dL Creatinine (0.52-1.04) mg/dL Est GFR (CKD-EPI)AfAm (>60 ml/min/1.73 sqM) Est GFR (CKD-EPI)NonAf (>60 ml/min/1.73 sqM) Glucose (74-99) mg/dL Plasma Lactic Acid El (0.7-2.0) mmol/L Calcium (8.4-10.2) mg/dL Magnesium (1.6-2.3) mg/dL Total Bilirubin (0.2-1.3) mg/dL AST (14-36) U/L ALT (4-34) U/L Alkaline Phosphatase (38-126) U/L Troponin I (0.000-0.034) ng/mL NT-Pro-B Natriuret Pep pg/mL Total Protein (6.3-8.2) g/dL Albumin (3.5-5.0) g/dL Coronavirus (PCR) Not Detected (Not Detectd) 09/23/21 09/23/21 09/23/21 Range/Units 17:53 18:45 18:45 WBC (3.8-10.6) k/uL RBC (3.80-5.40) m/uL Hgb (11.4-16.0) gm/dL Hct (34.0-46.0) % MCV (80.0-100.0) fL MCH (25.0-35.0) pg MCHC (31.0-37.0) g/dL RDW (11.5-15.5) % Plt Count (150-450) k/uL MPV Neutrophils % % Lymphocytes % % Monocytes % % Eosinophils % % Basophils % % Neutrophils # (1.3-7.7) k/uL Lymphocytes # (1.0-4.8) k/uL Monocytes # (0-1.0) k/uL Eosinophils # (0-0.7) k/uL Basophils # (0-0.2) k/uL PT (9.0-12.0) sec INR (<1.2) APTT (22.0-30.0) sec D-Dimer (<0.60) mg/L FEU Sodium (137-145) mmol/L Potassium (3.5-5.1) mmol/L Chloride (98-107) mmol/L Carbon Dioxide (22-30) mmol/L Anion Gap mmol/L BUN (7-17) mg/dL Creatinine (0.52-1.04) mg/dL Est GFR (CKD-EPI)AfAm (>60 ml/min/1.73 sqM) Est GFR (CKD-EPI)NonAf (>60 ml/min/1.73 sqM) Glucose (74-99) mg/dL Plasma Lactic Acid El 1.5 (0.7-2.0) mmol/L Calcium (8.4-10.2) mg/dL Magnesium (1.6-2.3) mg/dL Total Bilirubin (0.2-1.3) mg/dL AST (14-36) U/L ALT (4-34) U/L Alkaline Phosphatase (38-126) U/L Troponin I <0.012 (0.000-0.034) ng/mL NT-Pro-B Natriuret Pep 259 pg/mL Total Protein (6.3-8.2) g/dL Albumin (3.5-5.0) g/dL Coronavirus (PCR) (Not Detectd) 09/23/21 Range/Units 18:45 WBC (3.8-10.6) k/uL RBC (3.80-5.40) m/uL Hgb (11.4-16.0) gm/dL Hct (34.0-46.0) % MCV (80.0-100.0) fL MCH (25.0-35.0) pg MCHC (31.0-37.0) g/dL RDW (11.5-15.5) % Plt Count (150-450) k/uL MPV Neutrophils % % Lymphocytes % % Monocytes % % Eosinophils % % Basophils % % Neutrophils # (1.3-7.7) k/uL Lymphocytes # (1.0-4.8) k/uL Monocytes # (0-1.0) k/uL Eosinophils # (0-0.7) k/uL Basophils # (0-0.2) k/uL PT (9.0-12.0) sec INR (<1.2) APTT (22.0-30.0) sec D-Dimer (<0.60) mg/L FEU Sodium 138 (137-145) mmol/L Potassium 3.1 L (3.5-5.1) mmol/L Chloride 106 (98-107) mmol/L Carbon Dioxide 20 L (22-30) mmol/L Anion Gap 12 mmol/L BUN 47 H (7-17) mg/dL Creatinine 1.50 H (0.52-1.04) mg/dL Est GFR (CKD-EPI)AfAm 43 (>60 ml/min/1.73 sqM) Est GFR (CKD-EPI)NonAf 37 (>60 ml/min/1.73 sqM) Glucose 122 H (74-99) mg/dL Plasma Lactic Acid El (0.7-2.0) mmol/L Calcium 8.2 L (8.4-10.2) mg/dL Magnesium 2.6 H (1.6-2.3) mg/dL Total Bilirubin 1.2 (0.2-1.3) mg/dL AST 95 H (14-36) U/L ALT 60 H (4-34) U/L Alkaline Phosphatase 90 (38-126) U/L Troponin I (0.000-0.034) ng/mL NT-Pro-B Natriuret Pep pg/mL Total Protein 6.3 (6.3-8.2) g/dL Albumin 2.9 L (3.5-5.0) g/dL Coronavirus (PCR) (Not Detectd) Critical Care Time Critical Care Time: Yes Total Critical Care Time: 35 Disposition Clinical Impression: Pneumonia, Pneumonia due to COVID-19 virus Disposition: ADMITTED IP TO THIS HOSP Referrals: Luis Felipe Gay MD [Primary Care Provider] - 1-2 days Time of Disposition: 20:54
[2021-09-23 18:12] LABS: Basophils # (A) 0.1 k/uL (0-0.2); Basophils % (A) 1 %; Eosinophils # (A) 0.1 k/uL (0-0.7); Eosinophils % (A) 1 %; HCT 41.4 % (34.0-46.0); HGB 13.4 gm/dL (11.4-16.0); Lymphocytes # (A) 1.4 k/uL (1.0-4.8); Lymphocytes % (A) 11 %; MCH 27.3 pg (25.0-35.0); MCHC 32.3 g/dL (31.0-37.0); MCV 84.5 fL (80.0-100.0); Mean Platelet Volume 9.1; Monocytes # (A) 0.7 k/uL (0-1.0); Monocytes % (A) 5 %; Neutrophils # (A) 9.8 k/uL (1.3-7.7); Neutrophils % (A) 80 %; Platelet Count 289 k/uL (150-450); RDW 14.1 % (11.5-15.5); WBC 12.1 k/uL (3.8-10.6)
[2021-09-23 18:31] LABS: INR 2.5 (<1.2); Partial Thromboplastin Time 29.5 sec (22.0-30.0); Prothrombin Time 24.2 sec (9.0-12.0)
[2021-09-23] MEDS ORDERED: LEVOFLOXACIN 750MG-D5W PMX 750 MG in DEXTROSE/WATER 1 150ML.BAG IVPB STA (18:43)
--- NOTE | 2021-09-23 19:14 | XR ---
EXAMINATION TYPE: XR chest 1V portable DATE OF EXAM: 09/23/2021 COMPARISON: Concurrent CT. HISTORY: Shortness of breath. TECHNIQUE: Single frontal view of the chest is obtained. FINDINGS: There are bilateral diffuse patchy airspace opacities. No pleural effusion, or pneumothora x seen. The cardiac silhouette size is mildly enlarged. The osseous structures are intact. IMPRESSION: Diffuse infiltrates with probable underlying pulmonary edema.
[2021-09-23] MEDS ORDERED: POTASSIUM CHLORIDE ER 20 MEQ TAB.ER PO STA (19:15)
[2021-09-23] MEDS ORDERED: POTASSIUM CHLORIDE 20 MEQ in WATER FOR INJECTION 1 100ML.BAG IVPB ONE (19:45)
[2021-09-23 19:48] LABS: Albumin 2.9 g/dL (3.5-5.0); Calcium 8.2 mg/dL (8.4-10.2); Magnesium 2.6 mg/dL (1.6-2.3); Potassium 3.1 mmol/L (3.5-5.1); Total Bilirubin 1.2 mg/dL (0.2-1.3); Total Protein 6.3 g/dL (6.3-8.2)
[2021-09-23] MEDS ORDERED: LORazepam 2 MG/ML INJ IV STA (19:59)
--- NOTE | 2021-09-23 20:14 | CT ---
EXAMINATION TYPE: CT chest angio for PE DATE OF EXAM: 09/23/2021 COMPARISON: Same-day radiograph. CT 07/04/2020. HISTORY: SOB CT DLP: 463.5 mGycm Automated exposure control for dose reduction was used. CONTRAST: CT Chest for pulmonary embolism performed with with IV Contrast, patient injected with 100 mL of Isov ue 370. FINDINGS: LUNGS: There are bilateral diffuse marked patchy groundglass opacities. There is no pleural effusio n or pneumothorax seen. The tracheobronchial tree is patent. MEDIASTINUM: There is satisfactory enhancement of the pulmonary artery and its branches, there is no CT evidence for pulmonary embolism. There are no greater than 1 cm hilar or mediastinal lymph nodes. No pericardial effusion is seen. OTHER: No additional significant abnormality is seen. Cholecystectomy noted. IMPRESSION: Findings consistent with atypical pneumonia including Covid. No acute PE.
[2021-09-23] MEDS ORDERED: PNEUMONIA PROTOCOL UTILIZED 1 EACH MISC PO PRN (21:19)
[2021-09-23] MEDS ORDERED: SODIUM CHLORIDE 0.9% 1,000 ML IV STA (21:22)
[2021-09-23] MEDS ORDERED: SODIUM CHLORIDE 0.9% 500 ML 500 ML IV ONE (21:22)
[2021-09-23 23:22] LABS: Influenza A Not Detected (Not Detectd); Influenza B Not Detected (Not Detectd)
[2021-09-24] MEDS: dexAMETHasone 2 MG TAB PO SCH (08:48)
--- NOTE | 2021-09-24 10:02 | XR ---
EXAMINATION TYPE: XR chest 1V portable DATE OF EXAM: 09/24/2021 COMPARISON: 09/23/2021 INDICATION: Pneumonia TECHNIQUE: Single frontal view of the chest is obtained. FINDINGS: The heart size is now a prominent. The pulmonary vasculature is prominent. Diffuse scattered infiltrates are present. This has improved from comparison. IMPRESSION: 1. Improving bilateral lung infiltrates. Continued follow-up is recommended.
[2021-09-24 12:22] LABS: INR 2.8 (<1.2); Prothrombin Time 26.7 sec (9.0-12.0)
--- NOTE | 2021-09-24 12:23 | P.CNPUL ---
History of Present Illness Consult date: 09/24/21 Requesting physician: Juan Trevino Reason for consult: dyspnea, cough, hypoxemia, pneumonia, abnormal CXR/CT Chief complaint: Shortness of breath. History of present illness: Pulmonary consult dated 09/24/2021. 61-year-old female who states that she's been having symptoms, since September 10. The symptoms included shortness of breath, cough, fatigue, muscle aches, and generally just not feeling well. The patient is on vaccinated. She tested positive for coronavirus on September 23. Currently, she is on BiPAP with settings of 16/8, at 100%. Her primary care physician is Dr. Dionte Bal. The patient takes Coumadin chronically for her factor V or Leiden factor deficiency. Initially, on room air, her saturations were in the 70s, and on a nonrebreather, only got up into the mid 80s. In addition to the primary hypercoagulable state, she has a history of DVT, fibromyalgia, pneumonia, arthritis, and degenerative disc disease. She is a lifelong nonsmoker. She is getting saline at 50 mL an hour currently. White count 12.1, with a normal hemoglobin, hematocrit, and platelet count. PTT 24.2 INR 2.5, and d-dimer was 32.13. Sodium 1:30, potassium 3.1, chlorides 106, CO2 20, anion gap 12, BUN 47, and creatinine 1.5. Lactic acid was 1.5. AST was 95 with an ALT of 60. Pro-calcitonin level was 0.52. N-terminal proBNP is 259. Chest x-ray reveals diffuse bilateral infiltrates. CT angiogram was negative for pulmonary embolism, but did show diffuse infiltrates consistent with coronavirus pneumonia. Review of Systems REVIEW OF SYSTEMS: CONSTITUTIONAL: Fatigue, weakness, decreased appetite. NEUROLOGIC: [ Negative.] HEENT: [ Negative.] CARDIAC: [Negative.] PULMONARY: Shortness of breath, cough, chest congestion. GI: [Negative.] : [Negative.] RHEUMATOLOGIC: Muscle aches. IMMUNOLOGIC: [ Negative.] ENDOCRINE: [Negative. ] DERMATOLOGIC: [Negative.] Past Medical History Past Medical History: Deep Vein Thrombosis (DVT), Fibromyalgia, Pneumonia Additional Past Medical History / Comment(s): Clotting disorder. arthritis. 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 plate neck Past Psychological History: No Psychological Hx Reported Smoking Status: Never smoker Past Alcohol Use History: None Reported Past Drug Use History: None Reported Medications and Allergies Home Medications Medication Instructions Recorded Confirmed Type Ergocalciferol [Vitamin D2] 50,000 unit PO MORRIS 07/04/20 09/23/21 History Meloxicam [Mobic] 7.5 mg PO DAILY 07/04/20 09/23/21 History Warfarin Sodium [Jantoven] 6 mg PO DAILY 07/04/20 09/23/21 History metHOTREXate sodium [Methotrexate] 20 mg PO FR 07/04/20 09/23/21 History Allergies Allergy/AdvReac Type Severity Reaction Status Date / Time cefaclor [From Ceclor] Allergy Unknown Verified 09/23/21 19:51 cephalexin [From Keflex] Allergy Unknown Verified 09/23/21 19:51 cyclobenzaprine Allergy Unknown Verified 09/23/21 19:51 [From Flexeril] Penicillins Allergy Unknown Verified 09/23/21 19:51 Sulfa (Sulfonamide Allergy Unknown Verified 09/23/21 19:51 Antibiotics) acetaminophen [From Tylenol] AdvReac Rash/Hives Verified 09/23/21 19:51 codeine AdvReac Rash/Hives Verified 09/23/21 19:51 erythromycin base AdvReac Rash/Hives Verified 09/23/21 19:51 Physical Exam Osteopathic Statement: *. No significant issues noted on an osteopathic struc tural exam other than those noted in the History and Physical/Consult. Vitals: Vital Signs Temp Pulse Pulse Resp BP BP Pulse Ox 09/24/21 08:00 98.2 F 72 37 H 125/72 94 L 09/24/21 04:00 26 H 09/24/21 03:24 90 26 H 124/76 88 L 09/23/21 21:00 86 20 113/65 90 L 09/23/21 17:58 22 09/23/21 17:29 98.5 F 78 16 110/64 80 L Intake and Output 09/23/21 09/24/21 09/24/21 22:59 06:59 14:59 Intake Total 0 Balance 0 Intake: Oral 0 Other: # Voids 1 Weight 86.183 kg 86 kg No acute distress, oriented 3. BiPAP mask in place. Saturations are 94%. HEENT examination is grossly unremarkable. Neck supple. Full range of motion. No adenopathy thyromegaly or neck vein distention. Cardiovascular examination reveals regular rhythm rate. S1-S2 normal. No S3 or S4. No discernible murmur noted. Heart rate 72 bpm. Lungs reveal coarse bilateral rhonchi. Breath sounds are equal bilaterally. No wheezes. No crackles. Abdomen soft, with bowel sounds. No masses or tenderness. Extremities are intact. No cyanosis clubbing or edema. Skin is without rash or lesion. Neurologic examination is brief but nonfocal. Results - Laboratory Findings CBC and BMP: 09/23/21 17:53 09/23/21 18:45 PT/INR, D-dimer PT 24.2 sec (9.0-12.0) H 09/23/21 17:53 INR 2.5 (<1.2) H 09/23/21 17:53 D-Dimer 32.13 mg/L FEU (<0.60) H 09/23/21 17:53 Abnormal lab findings: Abnormal Labs 09/23/21 09/23/21 09/23/21 17:53 17:53 18:45 WBC 12.1 H Neutrophils # 9.8 H PT 24.2 H INR 2.5 H D-Dimer 32.13 H Potassium 3.1 L Carbon Dioxide 20 L BUN 47 H Creatinine 1.50 H Glucose 122 H Calcium 8.2 L Magnesium 2.6 H AST 95 H ALT 60 H Albumin 2.9 L Procalcitonin SARS-CoV-2 (PCR) 09/23/21 09/23/21 18:45 Unknown WBC Neutrophils # PT INR D-Dimer Potassium Carbon Dioxide BUN Creatinine Glucose Calcium Magnesium AST ALT Albumin Procalcitonin 0.52 H SARS-CoV-2 (PCR) Detected A - Diagnostic Findings Chest x-ray: image reviewed CT scan - chest: image reviewed Assessment and Plan Assessment: Acute hypoxemic respiratory failure secondary to coronavirus associated pneumonia. Mild transaminitis secondary to coronavirus infection. Primary hypercoagulable state in the form of Leiden factor deficiency/factor V deficiency. Prior history of DVT. History of fibromyalgia. History of arthritis. History of degenerative disc disease. Lifelong non-tobacco user. Plan: Plan dated 09/24/2021. The patient is not a candidate for REM, and she's had symptoms for more than 7 days. Actually sees, symptoms date back to September 10. 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 The patient does qualify for Decadron. In addition, the patient should be on vitamin C, vitamin D3, and zinc. Additional recommendations and suggestions are forthcoming. Prognosis is guarded. The patient is currently on Levaquin. That may disqualify her from [facility]. Time with Patient: Greater than 30
[2021-09-24] MEDS: ZINC SULFATE 220 MG CAP PO SCH (13:02)
[2021-09-24] MEDS: ASCORBIC ACID 500 MG TAB PO SCH ×2 (13:02→21:21)
[2021-09-24] MEDS ORDERED: WARFARIN 0.5 MG TAB PO ONE (18:00)
--- NOTE | 2021-09-24 18:45 | P.HPIM ---
History of Present Illness H&P Date: 09/24/21 Chief Complaint: COVID-19 within 61-year-old female, with history of DVT/clotting disorder-factor V or Leiden factor deficiency , fibromyalgia, arthritis who presents to the emergency department complaining of difficulty breathing since . Patient states it got progressively worse. Patient states she typically gets bronchitis 3 times here in the past which she thinks this. EMS stated her pulse ox on room air was in the 70s. They put her on a nonrebreather and is still only came up into the 80s. Patient denies chest pain difficulty breathing shortest breath per patient states she did not get COVID vaccine. Patient states she has a blood clotting disorder. Patient is on Coumadin. Patient denies any abdominal pain patient denies nausea vomiting diarrhea. Patient denies headache patient denies any numbness or weakness. Patient denies any syncopal episode. Initially, on room air, her saturations were in the 70s, and on a nonrebreather, only got up into the mid 80s. In addition to the primary hypercoagulable state, she has a history of DVT, fibromyalgia, pneumonia, arthritis, and degenerative disc disease. She is a lifelong nonsmoker. She is getting saline at 50 mL an hour currently. White count 12.1, with a normal hemoglobin, hematocrit, and platelet count. PTT 24.2 INR 2.5, and d-dimer was 32.13. Sodium 1:30, potassium 3.1, chlorides 106, CO2 20, anion gap 12, BUN 47, and creatinine 1.5. Lactic acid was 1.5. AST was 95 with an ALT of 60. Pro- calcitonin level was 0.52. N-terminal proBNP is 259. Chest x-ray reveals diffuse bilateral infiltrates. CT angiogram was negative for pulmonary embolism, but did show diffuse infiltrates consistent with coronavirus pneumonia. Review of Systems Inserted review of systems Past Medical History Past Medical History: Deep Vein Thrombosis (DVT), Fibromyalgia, Pneumonia Additional Past Medical History / Comment(s): Clotting disorder. arthritis. 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 plate neck Past Psychological History: No Psychological Hx Reported Smoking Status: Never smoker Past Alcohol Use History: None Reported Past Drug Use History: None Reported Medications and Allergies Home Medications Medication Instructions Recorded Confirmed Type Ergocalciferol [Vitamin D2] 50,000 unit PO MORRIS 07/04/20 09/23/21 History Meloxicam [Mobic] 7.5 mg PO DAILY 07/04/20 09/23/21 History Warfarin Sodium [Jantoven] 6 mg PO DAILY 07/04/20 09/23/21 History metHOTREXate sodium [Methotrexate] 20 mg PO FR 07/04/20 09/23/21 History Allergies Allergy/AdvReac Type Severity Reaction Status Date / Time cefaclor [From Ceclor] Allergy Unknown Verified 09/23/21 19:51 cephalexin [From Keflex] Allergy Unknown Verified 09/23/21 19:51 cyclobenzaprine Allergy Unknown Verified 09/23/21 19:51 [From Flexeril] Penicillins Allergy Unknown Verified 09/23/21 19:51 Sulfa (Sulfonamide Allergy Unknown Verified 09/23/21 19:51 Antibiotics) acetaminophen [From Tylenol] AdvReac Rash/Hives Verified 09/23/21 19:51 codeine AdvReac Rash/Hives Verified 09/23/21 19:51 erythromycin base AdvReac Rash/Hives Verified 09/23/21 19:51 Physical Exam Vitals: Vital Signs Temp Pulse Pulse Resp BP BP Pulse Ox 09/24/21 08:00 98.2 F 72 37 H 125/72 94 L 09/24/21 04:00 26 H 09/24/21 03:24 90 26 H 124/76 88 L 09/23/21 21:00 86 20 113/65 90 L 09/23/21 17:58 22 09/23/21 17:29 98.5 F 78 16 110/64 80 L Intake and Output 09/23/21 09/24/21 09/24/21 22:59 06:59 14:59 Intake Total 0 Balance 0 Intake: Oral 0 Other: # Voids 1 Weight 86.183 kg 86 kg No acute distress, oriented 3. BiPAP mask in place. Saturations are 94%. HEENT examination is grossly unremarkable. Neck supple. Full range of motion. No adenopathy thyromegaly or neck vein distention. Cardiovascular examination reveals regular rhythm rate. S1-S2 normal. No S3 or S4. No discernible murmur noted. Heart rate 72 bpm. Lungs reveal coarse bilateral rhonchi. Breath sounds are equal bilaterally. No wheezes. No crackles. Abdomen soft, with bowel sounds. No masses or tenderness. Extremities are intact. No cyanosis clubbing or edema. Skin is without rash or lesion. Neurologic examination is brief but nonfocal. Results CBC & Chem 7: 09/23/21 17:53 09/23/21 18:45 Labs: Abnormal Lab Results - Last 24 Hours (Table) 09/23/21 09/23/21 09/23/21 Range/Units 17:53 17:53 18:45 WBC 12.1 H (3.8-10.6) k/uL Neutrophils # 9.8 H (1.3-7.7) k/uL PT 24.2 H (9.0-12.0) sec INR 2.5 H (<1.2) D-Dimer 32.13 H (<0.60) mg/L FEU Potassium 3.1 L (3.5-5.1) mmol/L Carbon Dioxide 20 L (22-30) mmol/L BUN 47 H (7-17) mg/dL Creatinine 1.50 H (0.52-1.04) mg/dL Glucose 122 H (74-99) mg/dL Calcium 8.2 L (8.4-10.2) mg/dL Magnesium 2.6 H (1.6-2.3) mg/dL AST 95 H (14-36) U/L ALT 60 H (4-34) U/L Albumin 2.9 L (3.5-5.0) g/dL Procalcitonin (0.02-0.09) ng/mL SARS-CoV-2 (PCR) (Not Detectd) 09/23/21 09/23/21 Range/Units 18:45 Unknown WBC (3.8-10.6) k/uL Neutrophils # (1.3-7.7) k/uL PT (9.0-12.0) sec INR (<1.2) D-Dimer (<0.60) mg/L FEU Potassium (3.5-5.1) mmol/L Carbon Dioxide (22-30) mmol/L BUN (7-17) mg/dL Creatinine (0.52-1.04) mg/dL Glucose (74-99) mg/dL Calcium (8.4-10.2) mg/dL Magnesium (1.6-2.3) mg/dL AST (14-36) U/L ALT (4-34) U/L Albumin (3.5-5.0) g/dL Procalcitonin 0.52 H (0.02-0.09) ng/mL SARS-CoV-2 (PCR) Detected A (Not Detectd) Thrombosis Risk Factor Assmnt - Choose All That Apply Any of the Below Risk Factors Present?: No Other Risk Factors: Yes Each Risk Factor Represents 2 Points: Age 61-74 years Thrombosis Risk Factor Assessment Total Risk Factor Score: 2 Thrombosis Risk Factor Assessment Level: Low Risk Assessment and Plan Assessment: 1. Acute hypoxemic respiratory failure - Patient remains on BiPAP at FiO2 of 100%; keeping O2 saturation barely around 90; we will continue to titrate as able 2. COVID-19 viral pneumonia; pulmonary on board; patient not a candidate for Remdesivir, since onset of symptoms is over one week - Patient has been placed on Decadron, vitamin C, vitamin D3 and sitting - Patient placed on Levaquin from ED which may disqualify her for [facility] 3. Hypercoagulable state; factor V Leiden deficiency; INR is therapeutic at 2.5 ; we will continue with Coumadin and monitor PT/INR daily 4. History of DVT; continue anticoagulation with Coumadin 5. Transaminitis; possibly related to COVID-19 infection; we will monitor liver enzymes periodically 6. History of degenerative disc disease/arthritis; patient takes meloxicam at home and methotrexate at home 7. Fibromyalgia; continue home dose of Mobic 7.5 mg daily DVT prophylaxis; SCDs/Coumadin CODE STATUS; full code
[2021-09-24] MEDS: LEVOFLOXACIN 750MG-D5W PMX 750 MG in DEXTROSE/WATER 1 150ML.BAG IVPB SCH (21:21)
[2021-09-25] MEDS: MELOXICAM 7.5 MG TAB PO SCH ×2 (08:38→12:09)
[2021-09-25] MEDS: dexAMETHasone 2 MG TAB PO SCH ×2 (08:38→12:07)
[2021-09-25] MEDS: ZINC SULFATE 220 MG CAP PO SCH ×2 (08:38→12:10)
[2021-09-25] MEDS: ASCORBIC ACID 500 MG TAB PO SCH ×3 (08:39→19:52)
[2021-09-25] MEDS ORDERED: WARFARIN SODIUM 6 MG PO SCH (09:00)
[2021-09-25 09:35] LABS: Calcium 8.6 mg/dL (8.4-10.2); Potassium 3.7 mmol/L (3.5-5.1)
[2021-09-25 09:39] LABS: INR 3.5 (<1.2); Prothrombin Time 33.3 sec (9.0-12.0)
[2021-09-25 11:40] LABS: ABG Base Excess -3.7 mmol/L; ABG HCO3 21 mmol/L (21-25); ABG Oxygen Saturation 84.7 % (94-97); ABG PCO2 32 mmHg (35-45); ABG PH 7.42 (7.35-7.45); ABG TCO2 22 mmol/L (19-24); Allen Test Performed? Yes
[2021-09-25 11:49] LABS: ABG PO2 49 mmHg (83-108)
[2021-09-25 13:25] LABS: Glucose,Whole Blood 97 mg/dL (75-99)
[2021-09-25] MEDS ORDERED: NALOXONE 0.4 MG/ML 1 ML VIAL IV PRN (13:26)
[2021-09-25 13:45] LABS: Basophils # (A) 0.1 k/uL (0-0.2); Basophils % (A) 0 %; Eosinophils % (A) 0 %; HCT 37.5 % (34.0-46.0); HGB 11.9 gm/dL (11.4-16.0); Hypochromasia Slight; Lymphocytes # (A) 1.3 k/uL (1.0-4.8); Lymphocytes % (A) 8 %; MCH 27.5 pg (25.0-35.0); MCHC 31.6 g/dL (31.0-37.0); MCV 86.8 fL (80.0-100.0); Mean Platelet Volume 9.9; Monocytes # (A) 0.9 k/uL (0-1.0); Monocytes % (A) 5 %; Neutrophils # (A) 14.6 k/uL (1.3-7.7); Neutrophils % (A) 86 %; Platelet Count 309 k/uL (150-450); RBC 4.32 m/uL (3.80-5.40); RDW 14.4 % (11.5-15.5); WBC 17.1 k/uL (3.8-10.6)
--- NOTE | 2021-09-25 14:02 | P.PN ---
Subjective Progress Note Date: 09/25/21 Principal diagnosis: Hypoxemic respiratory failure. Pulmonary consult dated 09/24/2021. 61-year-old female who states that she's been having symptoms, since September 10. The symptoms included shortness of breath, cough, fatigue, muscle aches, and generally just not feeling well. The patient is on vaccinated. She tested positive for coronavirus on September 23. Currently, she is on BiPAP with settings of 16/8, at 100%. Her primary care physician is Dr. Dionte Bal. The patient takes Coumadin chronically for her factor V or Leiden factor deficiency. Initially, on room air, her saturations were in the 70s, and on a nonrebreather, only got up into the mid 80s. In addition to the primary hypercoagulable state, she has a history of DVT, fibromyalgia, pneumonia, arthritis, and degenerative disc disease. She is a lifelong nonsmoker. She is getting saline at 50 mL an hour currently. White count 12.1, with a normal hemoglobin, hematocrit, and platelet count. PTT 24.2 INR 2.5, and d-dimer was 32.13. Sodium 1:30, potassium 3.1, chlorides 106, CO2 20, anion gap 12, BUN 47, and creatinine 1.5. Lactic acid was 1.5. AST was 95 with an ALT of 60. Pro-calcitonin level was 0.52. N-terminal proBNP is 259. Chest x-ray reveals diffuse bilateral infiltrates. CT angiogram was negative for pulmonary embolism, but did show diffuse infiltrates consistent with coronavirus pneumonia. Progress note dated 09/25/2021. 62-year-old female that I saw yesterday in consultation. She's been having coronavirus symptoms since September 10. The patient sees Dr. Dionte Bal as a primary. Yesterday, she was on BiPAP, at 16/8 and 100%. She was doing okay. Today, her saturations are quite low, she is much more tachypnea, and I decided to go ahead and move her to the ICU. The patient may require intubation and mechanical ventilation before the end of the day. CT angiogram was negative for pulmonary embolism. I did speak to her daughter, and her . White count 17.1, hemoglobin 11.9, hematocrit 37.5, platelet count 390,000. PTT is 33.3 INR is 3.5. Blood gases done on 100% show pO2 of only 49, pCO2 32, and a pH is 7.42. Sodium is 142, potassium 3.7, chlorides 113, CO2 21, anion gap 8, BUN 35, with a creatinine of 1.01. Objective - Vital Signs Vital signs: Vital Signs Temp 97 F L 09/25/21 08:00 Pulse 70 09/25/21 08:00 Resp 29 H 09/25/21 08:00 BP 117/56 09/25/21 08:00 Pulse Ox 90 L 09/25/21 08:00 Intake & Output 09/24/21 09/25/21 09/25/21 18:59 06:59 18:59 Intake Total 325 Output Total 400 500 Balance 325 -400 -500 Intake: Intake, IV Titration 225 Amount Sodium Chloride 0.9% 1, 225 000 ml @ 130 mls/hr IV . Q7H42M STA Rx#:[id number] Oral 100 Output: Urine 400 500 Other: Voiding Method External Catheter External Catheter - Exam No acute distress, oriented 3. BiPAP mask in place. Saturations are 88%. HEENT examination is grossly unremarkable. Neck supple. Full range of motion. No adenopathy thyromegaly or neck vein distention. Cardiovascular examination reveals regular rhythm rate. S1-S2 normal. No S3 or S4. No discernible murmur noted. Heart rate 70 bpm. Lungs reveal coarse bilateral rhonchi. Breath sounds are equal bilaterally. No wheezes. No crackles. Abdomen soft, with bowel sounds. No masses or tenderness. Extremities are intact. No cyanosis clubbing or edema. Skin is without rash or lesion. Neurologic examination is brief but nonfocal. - Labs CBC & Chem 7: 09/25/21 09:01 09/25/21 09:01 Labs: Abnormal Lab Results - Last 24 Hours (Table) 09/25/21 09/25/21 09/25/21 Range/Units 09:01 09:01 09:01 WBC 17.1 H (3.8-10.6) k/uL Neutrophils # 14.6 H (1.3-7.7) k/uL PT 33.3 H (9.0-12.0) sec INR 3.5 H (<1.2) ABG pCO2 (35-45) mmHg ABG pO2 (83-108) mmHg ABG O2 Saturation (94-97) % Chloride 113 H (98-107) mmol/L Carbon Dioxide 21 L (22-30) mmol/L BUN 35 H (7-17) mg/dL Glucose 103 H (74-99) mg/dL 09/25/21 Range/Units 11:26 WBC (3.8-10.6) k/uL Neutrophils # (1.3-7.7) k/uL PT (9.0-12.0) sec INR (<1.2) ABG pCO2 32 L (35-45) mmHg ABG pO2 49 L* (83-108) mmHg ABG O2 Saturation 84.7 L (94-97) % Chloride (98-107) mmol/L Carbon Dioxide (22-30) mmol/L BUN (7-17) mg/dL Glucose (74-99) mg/dL Microbiology - Last 24 Hours (Table) 09/23/21 17:40 Blood Culture - Preliminary Blood No Growth after 24 hours 09/23/21 17:53 Blood Culture - Preliminary Blood No Growth after 24 hours Assessment and Plan Assessment: Acute hypoxemic respiratory failure secondary to coronavirus associated pneumonia. Mild transaminitis secondary to coronavirus infection. Primary hypercoagulable state in the form of Leiden factor deficiency/factor V deficiency. Prior history of DVT. History of fibromyalgia. History of arthritis. History of degenerative disc disease. Lifelong non-tobacco user. Plan: Plan dated 09/24/2021. The patient is not a candidate for REM, and she's had symptoms for more than 7 days. Actually sees, symptoms date back to September 10. 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 The patient does qualify for Decadron. In addition, the patient should be on vitamin C, vitamin D3, and zinc. Additional recommendations and suggestions are forthcoming. Prognosis is guarded. The patient is currently on Levaquin. That may disqualify her from [facility]. Plan dated 09/25/2021. The patient's blood gases suggests worsening respiratory status, and therefore, the patient was transferred down to the intensive care unit. The patient was on saline, at 50 mL an hour. Blood gases again showed a pO2 of only 49, and a pCO2 32, with a pH is 7.42. This is on BiPAP, at 100%. I did speak to her and her about the fact that she may require intubation and mechanical ventilation, before the end of the day. She will continue on Coumadin, as well as Decadron, and vitamins. The patient was placed on Levaquin. Her pro- calcitonin level was elevated. This likely disqualifies her for [facility]. We will continue to follow and make recommendations where appropriate. Prognosis is certainly guarded. Time with Patient: Less than 30
[2021-09-25] MEDS ORDERED: CISATRACURIUM 2 MG/ML 5 ML VIAL IV ONE (16:57)
[2021-09-25] MEDS: CISATRACURIUM 200 MG in SODIUM CHLORIDE 0.9% 180 ML IV SCH (17:00)
--- NOTE | 2021-09-25 17:15 | XR ---
EXAMINATION TYPE: XR chest 1V portable DATE OF EXAM: 09/25/2021 COMPARISON: Yesterday HISTORY: Respiratory failure TECHNIQUE: Single view FINDINGS: There is endotracheal tube 1.8 cm from the jahaira. There is nasogastric tube in the body of the stomach. There is patchy pulmonary interstitial and airspace edema. There are chest leads. IMPRESSION: Patchy pulmonary edema which is not significantly different than yesterday and consistent with RDS.
[2021-09-25 17:19] LABS: ABG Base Excess -5.3 mmol/L; ABG HCO3 20 mmol/L (21-25); ABG Oxygen Saturation 91.5 % (94-97); ABG PCO2 37 mmHg (35-45); ABG PH 7.35 (7.35-7.45); ABG PO2 65 mmHg (83-108); ABG TCO2 22 mmol/L (19-24); Allen Test Performed? Yes
[2021-09-25] MEDS ORDERED: HYDROmorphone 1 MG/ML 1 ML SYRINGE ONE (17:33)
--- NOTE | 2021-09-25 17:50 | XR ---
EXAMINATION TYPE: XR chest 1V portable DATE OF EXAM: 09/25/2021 COMPARISON: Today HISTORY: Central line placement TECHNIQUE: Single view FINDINGS: There is left subclavian catheter with the tip in the superior vena cava. Endotracheal tube is 1.4 cm from the jahaira. There is pulmonary interstitial and airspace edema. There are chest leads . There is nasogastric tube in the stomach. IMPRESSION: Catheter in good position. Pulmonary edema without change.
[2021-09-25] MEDS ORDERED: SODIUM CHLORIDE 0.9% 2,000 ML IV ONE (17:53)
[2021-09-25] MEDS ORDERED: WARFARIN 0.5 MG TAB PO ONE (18:00)
--- NOTE | 2021-09-25 19:07 | PCN ---
PROCEDURE NOTE SERVICE ENGINEER: Dr. Pope and Dr. Ansari TRIPLE LUMEN CATHETER PLACEMENT: Indication: Hemodynamic monitoring/Intravenous access. PREOP DIAGNOSIS: Administration of fluids and pressors. POSTOP DIAGNOSIS: Administration of fluids and pressors. DESCRIPTION OF PROCEDURE: A time-out was completed verifying correct patient, procedure, site, positioning, and implant(s) or special equipment if applicable. The patient was placed in a dependent position appropriate for triple lumen catheter placement based on the vein to be cannulated. The patient's left shoulder was prepped and draped in sterile fashion. 1% Lidocaine was used to anesthetize the surrounding skin area. A triple lumen 9F Cordis catheter was introduced into the subclavian vein using Seldinger technique. The catheter was threaded smoothly over the guide wire and appropriate blood return was obtained. Each lumen of the catheter was evacuated of air and flushed with sterile saline. The catheter was then sutured in place to the skin and a sterile dressing applied. Perfusion to the extremity distal to the point of catheter insertion was checked and found to be adequate. There was universal timeout. We used the left subclavian site. There was no immediate complication. The patient tolerated the procedure well. There was good blood return from all 3 ports. The catheter was sutured in place. Sterile dressing was applied by the nurse. MMODL / RICHIEN: [id number] /
--- NOTE | 2021-09-25 19:07 | PCN ---
PROCEDURE NOTE RIGHT RADIAL ART LINE: PREOP DIAGNOSIS: Frequent blood draws and blood gas monitoring. POSTOP DIAGNOSIS: Frequent blood draws and blood gas monitoring. ARTERIAL LINE PLACEMENT: BUSINESS DIVISION CHAIR: Dr. Pope and Dr. Ansari Indications: Hemodynamic monitoring. A time-out was completed verifying correct patient, procedure, site, positioning, and implant(s) or special equipment if applicable. Silvino's test was performed to ensure adequate perfusion. The patient's right wrist was prepped and draped in sterile fashion. 1% Lidocaine was used to anesthetize the area. An 18G Arrow arterial line was introduced into the radial artery. The catheter was threaded over the guide wire and the needle was removed with appropriate pulsatile blood return. Blood loss was minimal. The catheter was then sutured in place to the skin and a sterile dressing applied. Perfusion to the extremity distal to the point of catheter insertion was checked and found to be adequate. The patient tolerated the procedure well and there were no complications. We used the right radial artery. There was universal timeout. The patient tolerated procedure well. There was no immediate complication. There was good blood return and waveform. Catheter was sutured in place. Sterile dressing was applied by the nurse. MMODL / IJN: [id number] /
[2021-09-25] MEDS: CHLORHEXIDINE GLUCONATE 15 ML CUP MUCOUS MEM SCH (19:52)
[2021-09-25] MEDS: LEVOFLOXACIN 750MG-D5W PMX 750 MG in DEXTROSE/WATER 1 150ML.BAG IVPB SCH (20:22)
[2021-09-25] MEDS: NOREPINEPHRINE 32 MG in SODIUM CHLORIDE 0.9% 218 ML IV SCH (23:58)
[2021-09-26 03:27] LABS: Basophils % (A) 0 %; Eosinophils % (A) 0 %; HCT 32.4 % (34.0-46.0); HGB 10.5 gm/dL (11.4-16.0); Hypochromasia Slight; Lymphocytes # (A) 0.8 k/uL (1.0-4.8); Lymphocytes % (A) 6 %; MCH 28.1 pg (25.0-35.0); MCHC 32.5 g/dL (31.0-37.0); MCV 86.7 fL (80.0-100.0); Monocytes # (A) 0.7 k/uL (0-1.0); Monocytes % (A) 5 %; Neutrophils # (A) 12.7 k/uL (1.3-7.7); Neutrophils % (A) 88 %; Platelet Count 250 k/uL (150-450); Poikilocytosis Slight; RBC 3.74 m/uL (3.80-5.40); RDW 14.9 % (11.5-15.5); WBC 14.4 k/uL (3.8-10.6)
[2021-09-26 03:32] LABS: INR 3.6 (<1.2); Prothrombin Time 34.5 sec (9.0-12.0)
[2021-09-26 03:44] LABS: Calcium 7.8 mg/dL (8.4-10.2)
[2021-09-26 04:02] LABS: C Reactive Protein 16.2 mg/dL (<1.0)
[2021-09-26 06:03] LABS: ABG Base Excess -5.5 mmol/L; ABG HCO3 21 mmol/L (21-25); ABG Oxygen Saturation 95.6 % (94-97); ABG PCO2 46 mmHg (35-45); ABG PH 7.27 (7.35-7.45); ABG PO2 82 mmHg (83-108); ABG TCO2 23 mmol/L (19-24); Allen Test Performed? Yes
--- NOTE | 2021-09-26 06:37 | XR ---
EXAMINATION TYPE: XR chest 1V portable DATE OF EXAM: 09/26/2021 CLINICAL HISTORY: Difficulty breathing progress study. TECHNIQUE: Single AP portable semiupright view of the chest is obtained. COMPARISON: Chest x-ray from one day earlier and older studies. CTA chest 3 days ago FINDINGS: Stable endotracheal and orogastric tubes. Stable left-sided subclavian central venous cath eter. Persistent bilateral multifocal and confluent increased opacities greatest in the lower lungs. Cardia c silhouette size is stable and upper limits of normal. Subcutaneous emphysema right supraclavicular region remains present. Osseous structures are intact. IMPRESSION: Bilateral multifocal and confluent opacities redemonstrated show continued slight improve ment over the last few days suggesting improving covid-19 infiltrates. Improving or resolving subcuta neous emphysema also noted.
[2021-09-26] MEDS: CHLORHEXIDINE GLUCONATE 15 ML CUP MUCOUS MEM SCH ×2 (08:54→19:55)
[2021-09-26] MEDS: dexAMETHasone 2 MG TAB PO SCH (08:55)
[2021-09-26] MEDS: ASCORBIC ACID 500 MG TAB PO SCH ×2 (08:55→19:55)
[2021-09-26] MEDS: PANTOPRAZOLE 40 MG/10 ML VIAL IV SCH (08:55)
[2021-09-26] MEDS: ZINC SULFATE 220 MG CAP PO SCH (08:55)
[2021-09-26] MEDS: ERGOCALCIFEROL 1,250 MCG (50,000 IU) CAPSULE PO SCH ×2 (09:00→09:15)
--- NOTE | 2021-09-26 09:13 | P.PN ---
Subjective Progress Note Date: 09/26/21 Principal diagnosis: Hypoxemic respiratory failure. Pulmonary consult dated 09/24/2021. 61-year-old female who states that she's been having symptoms, since September 10. The symptoms included shortness of breath, cough, fatigue, muscle aches, and generally just not feeling well. The patient is on vaccinated. She tested positive for coronavirus on September 23. Currently, she is on BiPAP with settings of 16/8, at 100%. Her primary care physician is Dr. Dionte Bal. The patient takes Coumadin chronically for her factor V or Leiden factor deficiency. Initially, on room air, her saturations were in the 70s, and on a nonrebreather, only got up into the mid 80s. In addition to the primary hypercoagulable state, she has a history of DVT, fibromyalgia, pneumonia, arthritis, and degenerative disc disease. She is a lifelong nonsmoker. She is getting saline at 50 mL an hour currently. White count 12.1, with a normal hemoglobin, hematocrit, and platelet count. PTT 24.2 INR 2.5, and d-dimer was 32.13. Sodium 1:30, potassium 3.1, chlorides 106, CO2 20, anion gap 12, BUN 47, and creatinine 1.5. Lactic acid was 1.5. AST was 95 with an ALT of 60. Pro-calcitonin level was 0.52. N-terminal proBNP is 259. Chest x-ray reveals diffuse bilateral infiltrates. CT angiogram was negative for pulmonary embolism, but did show diffuse infiltrates consistent with coronavirus pneumonia. Progress note dated 09/25/2021. 62-year-old female that I saw yesterday in consultation. She's been having coronavirus symptoms since September 10. The patient sees Dr. Dionte Bal as a primary. Yesterday, she was on BiPAP, at 16/8 and 100%. She was doing okay. Today, her saturations are quite low, she is much more tachypnea, and I decided to go ahead and move her to the ICU. The patient may require intubation and mechanical ventilation before the end of the day. CT angiogram was negative for pulmonary embolism. I did speak to her daughter, and her . White count 17.1, hemoglobin 11.9, hematocrit 37.5, platelet count 390,000. PTT is 33.3 INR is 3.5. Blood gases done on 100% show pO2 of only 49, pCO2 32, and a pH is 7.42. Sodium is 142, potassium 3.7, chlorides 113, CO2 21, anion gap 8, BUN 35, with a creatinine of 1.01. Progress note dated 09/26/2021. 62-year-old female, who was admitted with a diagnosis of hypoxemic respiratory failure secondary to coronavirus associated pneumonia. She's had coronavirus symptoms since September 10. Yesterday, she was transferred down to the intensive care unit for worsening respiratory status, and required intubation and mechanical ventilation. In addition, she had a central line placed and an arterial line placed yesterday. She remains on the ventilator, she is on the volume assist control mode, rate 26, tidal volume 400, FiO2 100%, and PEEP of 15. Arterial blood gases show pO2 of 82, pCO2 46, and a pH is 7.27. The patient's getting saline at 50 mL an hour, Nimbex at 1 mcg/kg/m, propofol at 50 mcg/kg/m, and norepinephrine at 2 mcg/m. Tube feedings have yet to be started. Chest x-ray shows a properly placed endotracheal tube, and diffuse bilateral infiltrates, which are essentially unchanged. White count 14.4, hemoglobin 10.5, hematocrit 32.4, and platelet count 250,000. PTT 34.5 with an INR 3.6. Sodium 143, potassium 4, chlorides 118, CO2 22, anion gap 3, BUN 27, and creatinine 0.95. LDH is 930. C-reactive protein is 16.2. CT angiogram was negative for pulmonary embolism. Objective - Vital Signs Vital signs: Vital Signs Temp 98 F 09/26/21 04:00 Pulse 90 09/26/21 07:00 Resp 26 H 09/26/21 07:00 BP 105/52 09/26/21 06:00 Pulse Ox 90 L 09/26/21 07:00 Intake & Output 09/25/21 09/26/21 09/26/21 18:59 06:59 18:59 Intake Total 1250 1965.790 79.842 Output Total 750 675 50 Balance 500 1290.790 29.842 Weight 90.7 kg Intake: IV 1250 1650 50 0.9 NACL 250 550 50 0.9 NACL bolus 1000 1000 Levofloxacin 750Mg-D5w 100 Pmx 750 mg In Dextrose/ Water 1 150ml.bag @ 100 mls/hr IVPB Q24H AB[facility] Rx#: [id number] Intake, IV Titration 315.790 29.842 Amount Cisatracurium 200 mg In 93.224 29.842 Sodium Chloride 0.9% 180 ml @ 1 MCG/KG/MIN 5.16 mls/hr IV .Q24H AB[facility] Rx#: [id number] Norepinephrine 32 mg In 0.067 Sodium Chloride 0.9% 218 ml @ 0.05 MCG/KG/MIN 2. 016 mls/hr IV .Q24H [facility] Rx#:[id number] propofoL 1,000 mg In 222.499 Empty Bag 1 bag @ Titrate IV .Q0M AB[facility] Rx#: [id number] Output: Urine 750 675 50 Other: Voiding Method External Catheter Indwelling Catheter ABP, PAP, CO, CI - Last Documented Arterial Blood Pressure 93/53 - Exam No acute distress, sedated and paralyzed, with an orally placed endotracheal tube and nasogastric tube. HEENT examination is grossly unremarkable. Neck supple. Full range of motion. No adenopathy thyromegaly or neck vein distention. Cardiovascular examination reveals regular rhythm rate. S1-S2 normal. No S3 or S4. No discernible murmur noted. Heart rate 90 bpm. Heart sounds are distant. Lungs reveal coarse bilateral rhonchi. Breath sounds are equal bilaterally. No wheezes. No crackles. Saturations are 93%. Abdomen soft, without bowel sounds. No masses. Extremities are intact. No cyanosis clubbing or edema. Skin is without rash or lesion. Neurologic examination cannot be assessed as the patient is currently sedated and paralyzed. - Labs CBC & Chem 7: 09/26/21 03:00 09/26/21 03:00 Labs: Abnormal Lab Results - Last 24 Hours (Table) 09/25/21 09/25/21 09/25/21 Range/Units 09:01 09:01 09:01 WBC 17.1 H (3.8-10.6) k/uL RBC (3.80-5.40) m/uL Hgb (11.4-16.0) gm/dL Hct (34.0-46.0) % Neutrophils # 14.6 H (1.3-7.7) k/uL Lymphocytes # (1.0-4.8) k/uL PT 33.3 H (9.0-12.0) sec INR 3.5 H (<1.2) ABG pH (7.35-7.45) ABG pCO2 (35-45) mmHg ABG pO2 (83-108) mmHg ABG HCO3 (21-25) mmol/L ABG O2 Saturation (94-97) % Chloride 113 H (98-107) mmol/L Carbon Dioxide 21 L (22-30) mmol/L BUN 35 H (7-17) mg/dL Glucose 103 H (74-99) mg/dL Calcium (8.4-10.2) mg/dL Lactate Dehydrogenase (313-618) U/L C-Reactive Protein (<1.0) mg/dL 09/25/21 09/25/21 09/26/21 Range/Units 11:26 17:18 03:00 WBC (3.8-10.6) k/uL RBC (3.80-5.40) m/uL Hgb (11.4-16.0) gm/dL Hct (34.0-46.0) % Neutrophils # (1.3-7.7) k/uL Lymphocytes # (1.0-4.8) k/uL PT 34.5 H (9.0-12.0) sec INR 3.6 H (<1.2) ABG pH (7.35-7.45) ABG pCO2 32 L (35-45) mmHg ABG pO2 49 L* 65 L (83-108) mmHg ABG HCO3 20 L (21-25) mmol/L ABG O2 Saturation 84.7 L 91.5 L (94-97) % Chloride (98-107) mmol/L Carbon Dioxide (22-30) mmol/L BUN (7-17) mg/dL Glucose (74-99) mg/dL Calcium (8.4-10.2) mg/dL Lactate Dehydrogenase (313-618) U/L C-Reactive Protein (<1.0) mg/dL 09/26/21 09/26/21 09/26/21 Range/Units 03:00 03:00 05:59 WBC 14.4 H (3.8-10.6) k/uL RBC 3.74 L (3.80-5.40) m/uL Hgb 10.5 L (11.4-16.0) gm/dL Hct 32.4 L (34.0-46.0) % Neutrophils # 12.7 H (1.3-7.7) k/uL Lymphocytes # 0.8 L (1.0-4.8) k/uL PT (9.0-12.0) sec INR (<1.2) ABG pH 7.27 L (7.35-7.45) ABG pCO2 46 H (35-45) mmHg ABG pO2 82 L (83-108) mmHg ABG HCO3 (21-25) mmol/L ABG O2 Saturation (94-97) % Chloride 118 H (98-107) mmol/L Carbon Dioxide (22-30) mmol/L BUN 27 H (7-17) mg/dL Glucose 110 H (74-99) mg/dL Calcium 7.8 L (8.4-10.2) mg/dL Lactate Dehydrogenase 930 H (313-618) U/L C-Reactive Protein 16.2 H (<1.0) mg/dL Microbiology - Last 24 Hours (Table) 09/23/21 17:40 Blood Culture - Preliminary Blood No Growth after 48 hours 09/23/21 17:53 Blood Culture - Preliminary Blood No Growth after 48 hours Assessment and Plan Assessment: Acute hypoxemic respiratory failure secondary to coronavirus associated pneumonia, status post intubation, and mechanical ventilation on 09/25/2021. No evidence of pulmonary embolism on CT angiogram. Mild transaminitis secondary to coronavirus infection. Primary hypercoagulable state in the form of Leiden factor deficiency/factor V deficiency. Prior history of DVT. History of fibromyalgia. History of arthritis. History of degenerative disc disease. Lifelong non-tobacco user. Plan: Plan dated 09/24/2021. The patient is not a candidate for REM, and she's had symptoms for more than 7 days. Actually sees, symptoms date back to September 10. 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 The patient does qualify for Decadron. In addition, the patient should be on vitamin C, vitamin D3, and zinc. Additional recommendations and suggestions are forthcoming. Prognosis is guarded. The patient is currently on Levaquin. That may disqualify her from [facility]. Plan dated 09/25/2021. The patient's blood gases suggests worsening respiratory status, and therefore, the patient was transferred down to the intensive care unit. The patient was on saline, at 50 mL an hour. Blood gases again showed a pO2 of only 49, and a pCO2 32, with a pH is 7.42. This is on BiPAP, at 100%. I did speak to her and her about the fact that she may require intubation and mechanical ventilation, before the end of the day. She will continue on Coumadin, as well as Decadron, and vitamins. The patient was placed on Levaquin. Her pro- calcitonin level was elevated. This likely disqualifies her for [facility]. We will continue to follow and make recommendations where appropriate. Prognosis is certainly guarded. Plan dated 09/26/2021. The patient was intubated and mechanically ventilated yesterday. A right radial art line was placed as was a left-sided triple-lumen catheter. The patient's currently sedated and paralyzed. Tube feedings will start today. She did get fluid resuscitation yesterday. She remains on a small dose of norepinephrine. The patient will have labs ordered for the morning including a CBC, basic metabolic profile, and blood gas. The patient remains on Coumadin. In addition, the patient will have a chest x-ray ordered for the morning. Tube fee dings will be started today. Prognosis is guarded. We will continue to follow and make recommendations where appropriate. Prognosis is certainly very guarded. Time with Patient: Greater than 30
--- NOTE | 2021-09-26 15:40 | P.PN ---
Subjective Progress Note Date: 09/25/21 Principal diagnosis: Acute hypoxemic respiratory failure secondary to coronavirus associated pneumonia. Mild transaminitis secondary to coronavirus infection. Primary hypercoagulable state in the form of Leiden factor deficiency/factor V deficiency 61-year-old female, with history of DVT/clotting disorder-factor V or Leiden factor deficiency , fibromyalgia, arthritis who presents to the emergency department complaining of difficulty breathing since [place]. Patient states it got progressively worse. Patient states she typically gets bronchitis 3 times here in the past which she thinks this. EMS stated her pulse ox on room air was in the 70s. They put her on a nonrebreather and is still only came up into the 80s. Patient denies chest pain difficulty breathing shortest breath per patient states she did not get COVID vaccine. Patient states she has a blood clotting disorder. Patient is on Coumadin. Patient denies any abdominal pain patient denies nausea vomiting diarrhea. Patient denies headache patient denies any numbness or weakness. Patient denies any syncopal episode. Initially, on room air, her saturations were in the 70s, and on a nonrebreather, only got up into the mid 80s. In addition to the primary hypercoagulable state, she has a history of DVT, fibromyalgia, pneumonia, arthritis, and degenerative disc disease. She is a lifelong nonsmoker. She is getting saline at 50 mL an hour currently. White count 12.1, with a normal hemoglobin, hematocrit, and platelet count. PTT 24.2 INR 2.5, and d-dimer was 32.13. Sodium 1:30, potassium 3.1, chlorides 106, CO2 20, anion gap 12, BUN 47, and creatinine 1.5. Lactic acid was 1.5. AST was 95 with an ALT of 60. Pro- calcitonin level was 0.52. N-terminal proBNP is 259. Chest x-ray reveals diffuse bilateral infiltrates. CT angiogram was negative for pulmonary embolism, but did show diffuse infiltrates consistent with coronavirus pneumonia. 09/25/2021 Patient has been evaluated by pulmonary service; continue to decline on BiPAP and is recommended to be transferred to ICU; plan is for possible intubation and mechanical ventilation if patient continues to deteriorate CT angiogram was negative for pulmonary embolism. White count 17.1, hemoglobin 11.9, hematocrit 37.5, platelet count 390,000. PTT is 33.3 INR is 3.5. Blood g ases done on 100% show pO2 of only 49, pCO2 32, and a pH is 7.42. Sodium is 142, potassium 3.7, chlorides 113, CO2 21, anion gap 8, BUN 35, with a creatinine of 1.01. Objective - Vital Signs Vital signs: Vital Signs Temp 97 F L 09/25/21 08:00 Pulse 70 09/25/21 08:00 Resp 29 H 09/25/21 08:00 BP 117/56 09/25/21 08:00 Pulse Ox 90 L 09/25/21 08:00 Intake & Output 09/24/21 09/25/21 09/25/21 18:59 06:59 18:59 Intake Total 325 Output Total 400 500 Balance 325 -400 -500 Intake: Intake, IV Titration 225 Amount Sodium Chloride 0.9% 1, 225 000 ml @ 130 mls/hr IV . Q7H42M STA Rx#:[id number] Oral 100 Output: Urine 400 500 Other: Voiding Method External Catheter External Catheter - Exam PHYSICAL EXAMINATION: GENERAL: The patient is alert and oriented x3, not in any acute distress. Well developed, well nourished. HEENT: Pupils are round and equally reacting to light. EOMI. No scleral icterus. No conjunctival pallor. Normocephalic, atraumatic. No pharyngeal erythema. No thyromegaly. CARDIOVASCULAR: S1 and S2 present. No murmurs, rubs, or gallops. PULMONARY: Scattered wheezing with diffusely decreased breath sound. ABDOMEN: Soft, nontender, nondistended, normoactive bowel sounds. No palpable organomegaly. MUSCULOSKELETAL: No joint swelling or deformity. EXTREMITIES: No cyanosis, clubbing, or pedal edema. NEUROLOGICAL: Gross neurological examination did not reveal any focal deficits. SKIN: No rashes. - Labs CBC & Chem 7: 09/26/21 03:00 09/26/21 03:00 Labs: Abnormal Lab Results - Last 24 Hours (Table) 09/25/21 09/25/21 09/25/21 Range/Units 09:01 09:01 09:01 WBC 17.1 H (3.8-10.6) k/uL Neutrophils # 14.6 H (1.3-7.7) k/uL PT 33.3 H (9.0-12.0) sec INR 3.5 H (<1.2) ABG pCO2 (35-45) mmHg ABG pO2 (83-108) mmHg ABG O2 Saturation (94-97) % Chloride 113 H (98-107) mmol/L Carbon Dioxide 21 L (22-30) mmol/L BUN 35 H (7-17) mg/dL Glucose 103 H (74-99) mg/dL 09/25/21 Range/Units 11:26 WBC (3.8-10.6) k/uL Neutrophils # (1.3-7.7) k/uL PT (9.0-12.0) sec INR (<1.2) ABG pCO2 32 L (35-45) mmHg ABG pO2 49 L* (83-108) mmHg ABG O2 Saturation 84.7 L (94-97) % Chloride (98-107) mmol/L Carbon Dioxide (22-30) mmol/L BUN (7-17) mg/dL Glucose (74-99) mg/dL Microbiology - Last 24 Hours (Table) 09/23/21 17:40 Blood Culture - Preliminary Blood No Growth after 24 hours 09/23/21 17:53 Blood Culture - Preliminary Blood No Growth after 24 hours Assessment and Plan Assessment: 1. Acute hypoxemic respiratory failure - Patient remains on BiPAP at FiO2 of 100%; keeping O2 saturation barely around 90; we will continue to titrate as able 2. COVID-19 viral pneumonia; pulmonary on board; patient not a candidate for Remdesivir, since onset of symptoms is over one week - Patient has been placed on Decadron, vitamin C, vitamin D3 and sitting - Patient placed on Levaquin from ED which may disqualify her for Baricitnib 3. Hypercoagulable state; factor V Leiden deficiency; INR is therapeutic at 2.5; we will continue with Coumadin and monitor PT/INR daily 4. History of DVT; continue anticoagulation with Coumadin 5. Transaminitis; possibly related to COVID-19 infection; we will monitor liver enzymes periodically 6. History of degenerative disc disease/arthritis; patient takes meloxicam at home and methotrexate at home 7. Fibromyalgia; continue home dose of Mobic 7.5 mg daily DVT prophylaxis; SCDs/Coumadin CODE STATUS; full code
--- NOTE | 2021-09-26 15:51 | P.PN ---
Subjective Progress Note Date: 09/26/21 Principal diagnosis: Acute hypoxemic respiratory failure secondary to coronavirus associated pneumonia. Mild transaminitis secondary to coronavirus infection. Primary hypercoagulable state in the form of Leiden factor deficiency/factor V deficiency 61-year-old female, with history of DVT/clotting disorder-factor V or Leiden factor deficiency , fibromyalgia, arthritis who presents to the emergency department complaining of difficulty breathing since [place] [facility]. Patient states it got progressively worse. Patient states she typically gets bronchitis 3 times here in the past which she thinks this. EMS stated her pulse ox on room air was in the 70s. They put her on a nonrebreather and is still only came up into the 80s. Patient denies chest pain difficulty breathing shortest breath per patient states she did not get COVID vaccine. Patient states she has a blood clotting disorder. Patient is on Coumadin. Patient denies any abdominal pain patient denies nausea vomiting diarrhea. Patient denies headache patient denies any numbness or weakness. Patient denies any syncopal episode. Initially, on room air, her saturations were in the 70s, and on a nonrebreather, only got up into the mid 80s. In addition to the primary hypercoagulable state, she has a history of DVT, fibromyalgia, pneumonia, arthritis, and degenerative disc disease. She is a lifelong nonsmoker. She is getting saline at 50 mL an hour currently. White count 12.1, with a normal hemoglobin, hematocrit, and platelet count. PTT 24.2 INR 2.5, and d-dimer was 32.13. Sodium 1:30, potassium 3.1, chlorides 106, CO2 20, anion gap 12, BUN 47, and creatinine 1.5. Lactic acid was 1.5. AST was 95 with an ALT of 60. Pro- calcitonin level was 0.52. N-terminal proBNP is 259. Chest x-ray reveals diffuse bilateral infiltrates. CT angiogram was negative for pulmonary embolism, but did show diffuse infiltrates consistent with coronavirus pneumonia. 09/25/2021 Patient has been evaluated by pulmonary service; continue to decline on BiPAP and is recommended to be transferred to ICU; plan is for possible intubation and mechanical ventilation if patient continues to deteriorate CT angiogram was negative for pulmonary embolism. White count 17.1, hemoglobin 11.9, hematocrit 37.5, platelet count 390,000. PTT is 33.3 INR is 3.5. Blood g ases done on 100% show pO2 of only 49, pCO2 32, and a pH is 7.42. Sodium is 142, potassium 3.7, chlorides 113, CO2 21, anion gap 8, BUN 35, with a creatinine of 1.01. 09/26/2021 Patient is seen and evaluated in ICU; remains on the ventilator. Patient was intubated after transferred to ICU yesterday Arterial blood gases show pO2 of 82, pCO2 46, and a pH is 7.27. Chest x-ray shows a properly placed endotracheal tube, and diffuse bilateral infiltrates, which are essentially unchanged. White count 14.4, hemoglobin 10.5, hematocrit 32.4, and platelet count 250,000. PTT 34.5 with an INR 3.6. Sodium 143, potassium 4, chlorides 118, CO2 22, anion gap 3, BUN 27, and creatinine 0.95. LDH is 930. C-reactive protein is 16.2. CT angiogram was negative for pulmonary embolism. Objective - Vital Signs Vital signs: Vital Signs Temp 98.3 F 09/26/21 12:00 Pulse 82 09/26/21 13:00 Resp 26 H 09/26/21 13:00 BP 131/69 09/26/21 13:00 Pulse Ox 90 L 09/26/21 13:00 Intake & Output 09/25/21 09/26/21 09/26/21 18:59 06:59 18:59 Intake Total 1250 2065.790 348.247 Output Total 750 675 290 Balance 500 1390.790 58.247 Weight 90.7 kg Intake: IV 1250 1650 250 0.9 NACL 250 550 250 0.9 NACL bolus 1000 1000 Levofloxacin 750Mg-D5w 100 Pmx 750 mg In Dextrose/ Water 1 150ml.bag @ 100 mls/hr IVPB Q24H [facility] Rx#: [id number] Intake, IV Titration 415.790 98.247 Amount Cisatracurium 200 mg In 93.224 29.842 Sodium Chloride 0.9% 180 ml @ 1 MCG/KG/MIN 5.16 mls/hr IV .Q24H [facility] Rx#: [id number] Norepinephrine 32 mg In 0.067 7.321 Sodium Chloride 0.9% 218 ml @ 0.05 MCG/KG/MIN 2. 016 mls/hr IV .Q24H [facility] Rx#:[id number] propofoL 1,000 mg In 322.499 61.084 Empty Bag 1 bag @ Titrate IV .Q0M [facility] Rx#: [id number] Output: Urine 750 675 290 Other: Voiding Method External Catheter Indwelling Catheter Indwelling Catheter ABP, PAP, CO, CI - Last Documented Arterial Blood Pressure 134/65 - Exam PHYSICAL EXAMINATION: GENERAL: The patient is alert and oriented x3, not in any acute distress. Well developed, well nourished. HEENT: Pupils are round and equally reacting to light. EOMI. No scleral icterus. No conjunctival pallor. Normocephalic, atraumatic. No pharyngeal erythema. No thyromegaly. CARDIOVASCULAR: S1 and S2 present. No murmurs, rubs, or gallops. PULMONARY: Scattered wheezing with diffusely decreased breath sound. ABDOMEN: Soft, nontender, nondistended, normoactive bowel sounds. No palpable organomegaly. MUSCULOSKELETAL: No joint swelling or deformity. EXTREMITIES: No cyanosis, clubbing, or pedal edema. NEUROLOGICAL: Gross neurological examination did not reveal any focal deficits. SKIN: No rashes. - Labs CBC & Chem 7: 09/26/21 03:00 09/26/21 03:00 Labs: Abnormal Lab Results - Last 24 Hours (Table) 09/25/21 09/25/21 09/26/21 Range/Units 09:01 17:18 03:00 WBC 17.1 H (3.8-10.6) k/uL RBC (3.80-5.40) m/uL Hgb (11.4-16.0) gm/dL Hct (34.0-46.0) % Neutrophils # 14.6 H (1.3-7.7) k/uL Lymphocytes # (1.0-4.8) k/uL PT 34.5 H (9.0-12.0) sec INR 3.6 H (<1.2) ABG pH (7.35-7.45) ABG pCO2 (35-45) mmHg ABG pO2 65 L (83-108) mmHg ABG HCO3 20 L (21-25) mmol/L ABG O2 Saturation 91.5 L (94-97) % Chloride (98-107) mmol/L BUN (7-17) mg/dL Glucose (74-99) mg/dL Calcium (8.4-10.2) mg/dL Lactate Dehydrogenase (313-618) U/L C-Reactive Protein (<1.0) mg/dL 09/26/21 09/26/21 09/26/21 Range/Units 03:00 03:00 05:59 WBC 14.4 H (3.8-10.6) k/uL RBC 3.74 L (3.80-5.40) m/uL Hgb 10.5 L (11.4-16.0) gm/dL Hct 32.4 L (34.0-46.0) % Neutrophils # 12.7 H (1.3-7.7) k/uL Lymphocytes # 0.8 L (1.0-4.8) k/uL PT (9.0-12.0) sec INR (<1.2) ABG pH 7.27 L (7.35-7.45) ABG pCO2 46 H (35-45) mmHg ABG pO2 82 L (83-108) mmHg ABG HCO3 (21-25) mmol/L ABG O2 Saturation (94-97) % Chloride 118 H (98-107) mmol/L BUN 27 H (7-17) mg/dL Glucose 110 H (74-99) mg/dL Calcium 7.8 L (8.4-10.2) mg/dL Lactate Dehydrogenase 930 H (313-618) U/L C-Reactive Protein 16.2 H (<1.0) mg/dL Microbiology - Last 24 Hours (Table) 09/25/21 20:54 Sputum Culture - Preliminary Sputum 09/23/21 17:40 Blood Culture - Preliminary Blood No Growth after 48 hours 09/23/21 17:53 Blood Culture - Preliminary Blood No Growth after 48 hours Assessment and Plan Assessment: 1. Acute hypoxemic respiratory failure - Patient remains on BiPAP at FiO2 of 100%; keeping O2 saturation barely around 90; we will continue to titrate as able 2. COVID-19 viral pneumonia; pulmonary on board; patient not a candidate for Remdesivir, since onset of symptoms is over one week - Patient has been placed on Decadron, vitamin C, vitamin D3 and sitting - Patient placed on Levaquin from ED which may disqualify her for Baricitnib 3. Hypercoagulable state; factor V Leiden deficiency; INR is therapeutic at 2.5; we will continue with Coumadin and monitor PT/INR daily 4. History of DVT; continue anticoagulation with Coumadin 5. Transaminitis; possibly related to COVID-19 infection; we will monitor liver enzymes periodically 6. History of degenerative disc disease/arthritis; patient takes meloxicam at home and methotrexate at home 7. Fibromyalgia; continue home dose of Mobic 7.5 mg daily DVT prophylaxis; SCDs/Coumadin CODE STATUS; full code
[2021-09-26] MEDS: CISATRACURIUM 200 MG in SODIUM CHLORIDE 0.9% 180 ML IV SCH (16:31)
[2021-09-26] MEDS: NOREPINEPHRINE 32 MG in SODIUM CHLORIDE 0.9% 218 ML IV SCH (18:13)
[2021-09-26] MEDS: LEVOFLOXACIN 750MG-D5W PMX 750 MG in DEXTROSE/WATER 1 150ML.BAG IVPB SCH (19:54)
[2021-09-26] MEDS ORDERED: ARTIFICIAL TEARS-HYPROMELLOSE DROPS 15 ML BTL BOTH EYES PRN (22:30)
[2021-09-26] MEDS: ARTIFICIAL TEARS-HYPROMELLOSE DROPS 15 ML BTL BOTH EYES SCH (23:20)
[2021-09-27 03:59] LABS: Basophils % (A) 0 %; Eosinophils % (A) 0 %; HCT 33.4 % (34.0-46.0); HGB 10.9 gm/dL (11.4-16.0); Hypochromasia Slight; Lymphocytes # (A) 1.4 k/uL (1.0-4.8); Lymphocytes % (A) 10 %; MCH 27.9 pg (25.0-35.0); MCHC 32.6 g/dL (31.0-37.0); MCV 85.5 fL (80.0-100.0); Mean Platelet Volume 8.4; Monocytes # (A) 0.8 k/uL (0-1.0); Monocytes % (A) 5 %; Neutrophils % (A) 83 %; Platelet Count 256 k/uL (150-450); Poikilocytosis Slight; RDW 14.6 % (11.5-15.5); WBC 14.4 k/uL (3.8-10.6)
[2021-09-27 04:20] LABS: INR 2.2 (<1.2); Prothrombin Time 21.2 sec (9.0-12.0)
[2021-09-27 04:41] LABS: African American GFR (CKD) >90 (>60 ml/min/1.73 sqM); Anion Gap 6 mmol/L; Blood Urea Nitrogen 23 mg/dL (7-17); Calcium 8.1 mg/dL (8.4-10.2); Carbon Dioxide 20 mmol/L (22-30); Chloride 118 mmol/L (98-107); Glucose 84 mg/dL (74-99); Non-African American GFR(CKD) 88 (>60 ml/min/1.73 sqM); Potassium 4.1 mmol/L (3.5-5.1); Sodium 144 mmol/L (137-145)
[2021-09-27 06:04] LABS: ABG Base Excess -5.5 mmol/L; ABG HCO3 22 mmol/L (21-25); ABG Oxygen Saturation 93.9 % (94-97); ABG PCO2 47 mmHg (35-45); ABG PH 7.27 (7.35-7.45); ABG PO2 72 mmHg (83-108); ABG TCO2 23 mmol/L (19-24); Allen Test Performed? Yes
--- NOTE | 2021-09-27 07:21 | XR ---
EXAMINATION TYPE: XR chest 1V portable DATE OF EXAM: 09/27/2021 COMPARISON: 09/26/2021 HISTORY: Tube placement TECHNIQUE: Single frontal view of the chest is obtained. FINDINGS: ET, NG tube and left-sided central line stable. There is a interstitial infiltrates. Small bilateral effusions. Lucency along the left hilum could reflect a degree of pneumomediastinum. Soft tissue emphysema along the right neck remains. IMPRESSION: 1. Bilateral diffuse infiltrates. Degree of pneumomediastinum involving the left chest in the differe ntial diagnosis. Report called to the patient's nurse 7:00 AM 09/27/2021
--- NOTE | 2021-09-27 07:23 | P.PN ---
Subjective Progress Note Date: 09/27/21 61-year-old female who is in the MICU with COVID-19 related pneumonia. The patient stated that she was having symptoms since September 10. The symptoms included shortness of breath, cough, fatigue, muscle aches, and generally just not feeling well. The patient is non vaccinated. She tested positive for coronavirus on September 23. The patient takes Coumadin chronically for her factor V or Leiden factor deficiency. Initially, on room air, her saturations were in the 70s, and on a nonrebreather, only got up into the mid 80s. In addition to the primary hypercoagulable state, she has a history of DVT, fibromyalgia, pneumonia, arthritis, and degenerative disc disease. She is a lifelong nonsmoker. Chest x-ray reveals diffuse bilateral infiltrates. CT angiogram was negative for pulmonary embolism, but did show diffuse infiltrates consistent with coronavirus pneumonia. Subsequently, the patient was placed on a BiPAP for respiratory support. Following that, on 09/25/2021 required intubation and mechanical ventilation. She remains on the ventilator, she is on the volume assist control mode, rate 26, tidal volume 400, FiO2 100%, and PEEP of 15. Arterial blood gases show pO2 of 72 with a pH of 7.27 and pO2 of 47. The patient's peak airway pressure is 39. The patient static pressure is 37. The chest x-ray from today is showing diffuse bilateral pulmonary infiltrates thought the lung patterson more so on the lung bases. ET tube is around 2 cm above the jahaira. The patient has a subclavian triple lumen catheter on the left. The patient is a or G-tube and good location.. The patient's getting saline at 50 mL an hour, Nimbex at 1 mcg/kg/m, propofol at 50 mcg/kg/m, and norepinephrine at 2 mcg/m. the patient has not was started on enteral feeding for nutritional support. Dietary consultation has been obtained. Meanwhile, the blood work shows normal electrolytes, sodium is at 144, BUN is at 23 with a creatinine of 0.7. The LDH level is at 930 from yesterday with a CRP level of 16.2. The patient has a d-dimer of 9.46. The patient has been maintained on long-term medical evaluation with warfarin and INR from today is at 2.2. The patient meanwhile remains on treatment and the patient is on Decadron 6 mg by mouth on a daily basis. The patient has been covered empirically with Levaquin as an I'm antibiotic coverage. Anticoagulation is with warfarin and daily PT/INR is being monitored and the warfarin has been held for now monitoring her PT/INR. Noted the patient has been taking 6 mg of warfarin on outpatient basis. The patient is also on methotrexate for rheumatoid arthritis. Note that the patient's sputum cultures still pending. Blood culture has been negative. Pro-calcitonin level at a time of admission was 0.52. Objective - Vital Signs Vital signs: Vital Signs Temp 98.1 F 09/27/21 04:00 Pulse 69 09/27/21 07:00 Resp 26 H 09/27/21 07:00 BP 114/60 09/27/21 07:00 Pulse Ox 91 L 09/27/21 07:00 Intake & Output 09/26/21 09/27/21 09/27/21 18:59 06:59 18:59 Intake Total 814.131 908.934 0.248 Output Total 645 530 Balance 169.131 378.934 0.248 Weight 90.3 kg Intake: IV 550 650 0.9 NACL 550 650 Intake, IV Titration 264.131 258.934 0.248 Amount Cisatracurium 200 mg In 87.505 Sodium Chloride 0.9% 180 ml @ 1 MCG/KG/MIN 5.16 mls/hr IV .Q24H [facility] Rx#: [id number] Norepinephrine 32 mg In 15.542 3.808 0.248 Sodium Chloride 0.9% 218 ml @ 0.05 MCG/KG/MIN 2. 016 mls/hr IV .Q24H [facility] Rx#:[id number] propofoL 1,000 mg In 161.084 255.126 Empty Bag 1 bag @ Titrate IV .Q0M [facility] Rx#: [id number] Output: Urine 645 530 Other: Voiding Method Indwelling Catheter Indwelling Catheter ABP, PAP, CO, CI - Last Documented Arterial Blood Pressure 105/49 - Exam No acute distress, sedated and paralyzed, with an orally placed endotracheal tube and nasogastric tube. Head exam was generally normal. There was no scleral icterus or corneal arcus. Mucous membranes were moist. Neck was supple and without jugular venous distension, thyromegaly, or carotid bruits. Carotids were easily palpable bilaterally. There was no adenopathy Lungs were clear to auscultation and percussion, and with normal diaphragmatic excursion. No wheezes or rales were noted. Cardiac exam revealed the PMI to be normally situated and sized. The rhythm was regular and no extrasystoles were noted during several minutes of auscultation. The first and second heart sounds were normal and physiologic splitting of the second heart sound was noted. There were no murmurs, rubs, clicks, or gallops. Abdominal exam revealed normal bowel sounds. The abdomen was soft, non-tender, and without masses, organomegaly, or appreciable enlargement of the abdominal aorta. Examination of the extremities revealed easily palpable radial, femoral and pedal pulses. There was no cyanosis, clubbing or edema. Examination of the skin revealed no evidence of significant rashes, suspicious appearing nevi or other concerning lesions. Neurologic examination cannot be assessed as the patient is currently sedated and paralyzed. - Labs CBC & Chem 7: 09/27/21 03:30 09/27/21 03:30 Labs: Abnormal Lab Results - Last 24 Hours (Table) 09/26/21 09/27/21 09/27/21 Range/Units 15:44 03:30 03:30 WBC 14.4 H (3.8-10.6) k/uL Hgb 10.9 L (11.4-16.0) gm/dL Hct 33.4 L (34.0-46.0) % Neutrophils # 12.0 H (1.3-7.7) k/uL PT 21.2 H (9.0-12.0) sec INR 2.2 H (<1.2) D-Dimer 9.46 H (<0.60) mg/L FEU ABG pH (7.35-7.45) ABG pCO2 (35-45) mmHg ABG pO2 (83-108) mmHg ABG O2 Saturation (94-97) % Chloride (98-107) mmol/L Carbon Dioxide (22-30) mmol/L BUN (7-17) mg/dL Calcium (8.4-10.2) mg/dL 09/27/21 09/27/21 Range/Units 03:30 06:00 WBC (3.8-10.6) k/uL Hgb (11.4-16.0) gm/dL Hct (34.0-46.0) % Neutrophils # (1.3-7.7) k/uL PT (9.0-12.0) sec INR (<1.2) D-Dimer (<0.60) mg/L FEU ABG pH 7.27 L (7.35-7.45) ABG pCO2 47 H (35-45) mmHg ABG pO2 72 L (83-108) mmHg ABG O2 Saturation 93.9 L (94-97) % Chloride 118 H (98-107) mmol/L Carbon Dioxide 20 L (22-30) mmol/L BUN 23 H (7-17) mg/dL Calcium 8.1 L (8.4-10.2) mg/dL Microbiology - Last 24 Hours (Table) 09/23/21 17:40 Blood Culture - Preliminary Blood No Growth after 72 hours 09/23/21 17:53 Blood Culture - Preliminary Blood No Growth after 72 hours 09/25/21 20:54 Gram Stain - Preliminary Sputum Sputum Culture - Preliminary Assessment and Plan Plan: 1 Acute hypoxemic respiratory failure secondary to coronavirus associated pneumonia, status post intubation, and mechanical ventilation on 09/25/2021.No evidence of pulmonary embolism on CT angiogram. The patient continues to have diffuse bilateral pulmonary infiltrates consistent with COVID 19 related pneumonia. The patient is currently on Decadron 6 mg by mouth on a daily basis. The patient is also on long-term anticoagulation with warfarin and INR is therapeutic for now. Anti-coagulation was given to the patient because of an underlying hypercoagulable state. On today's evaluation, the patient continues to have borderline oxygenation. PEEP is at 15 identified to 100%. Inflammatory markers are mildly elevated. D-dimer is also mildly elevated. The chest x-ray from today also shows a mild component of no mediastinum. She is essentially on the left. There is no evidence of any pneumothorax. 2 acute COVID 19 related pneumonia 3 Mild transaminitis secondary to coronavirus infection. 4 Primary hypercoagulable state in the form of Leiden factor deficiency/factor V deficiency. The patient has been maintained on warfarin on outpatient basis. 5 Prior history of DVT. 6 History of fibromyalgia. 7 History of arthritis. 8 History of degenerative disc disease. Plan Continue ventilator support for now. Increase the PEEP up to 18 and gradually wean down the FiO2. Also take the opportunity to drop because of volume down to 3 50 mL. Keep the patient sedated and paralyzed. IV fluids are running in the form of 1 ventilator complete an hour. Wean off the norepinephrine drip and discontinue Repeat inflammatory markers for tomorrow Initiate enteral feeding for nutritional support The patient will be started on Eliquis 5 minutes by mouth twice a day and warfarin will be discontinued I'm not sure why the patient was on methotrexate. Methotrexate will be kept on hold for now. I'm assuming the patient had a component of rheumatoid arthritis. Data chest x-ray in the blood gases. Obtain Doppler of the lower and upper extremity. The patient has some increased swelling in the right upper extremity We'll continue to follow make further recommendations based on her progress. This is a critically care evaluation was done and more than 30 minutes. Time with Patient: Greater than 30
[2021-09-27] MEDS: ZINC SULFATE 220 MG CAP PO SCH (09:30)
[2021-09-27] MEDS: CHLORHEXIDINE GLUCONATE 15 ML CUP MUCOUS MEM SCH ×2 (09:30→21:11)
[2021-09-27] MEDS: APIXABAN 5 MG TAB PO SCH ×2 (09:30→21:11)
[2021-09-27] MEDS: ASCORBIC ACID 500 MG TAB PO SCH ×2 (09:30→21:11)
[2021-09-27] MEDS: dexAMETHasone 2 MG TAB PO SCH (09:31)
[2021-09-27] MEDS: PANTOPRAZOLE 40 MG/10 ML VIAL IV SCH (09:31)
[2021-09-27] MEDS: ARTIFICIAL TEARS-HYPROMELLOSE DROPS 15 ML BTL BOTH EYES SCH ×4 (09:33→21:11)
--- NOTE | 2021-09-27 11:32 | US ---
EXAMINATION TYPE: US venous doppler duplex LE DATE OF EXAM: 09/27/2021 11:24 AM COMPARISON: NONE CLINICAL HISTORY: assess for DVT. Covid patient is ICU. SIDE PERFORMED: Bilateral TECHNIQUE: The lower extremity deep venous system is examined utilizing real time linear array sonog dawson with graded compression, doppler sonography and color-flow sonography. VESSELS IMAGED: Common Femoral Vein Deep Femoral Vein Greater Saphenous Vein * Femoral Vein Popliteal Vein Small Saphenous Vein * Proximal Calf Veins (* superficial vessels) Right Leg: Negative for DVT Left Leg: Positive for DVT. Non occluding DVT seen from CFV through distal FV. Occluding DVT noted p op vein through prox calf veins. IMPRESSION: 1. Exam positive for DVT left common femoral vein through the distal superficial femoral vein. There also appears to be involvement of the popliteal and proximal calf veins.
--- NOTE | 2021-09-27 11:33 | US ---
EXAMINATION TYPE: US venous doppler duplex UE BI DATE OF EXAM: 09/27/2021 COMPARISON: NONE CLINICAL HISTORY: assess for dvt. Exam done portable on covid patient in ICU SIDE PERFORMED: Bilateral Right Arm: Appear negative for DVT Left Arm: Proximal and mid subclavian vein not seen due to bandage covering area, basilic not seen, v isualized portions appear negative for DVT IMPRESSION: Limited exam of the left upper extremity. The visualized portions of the deep venous system bilateral ly demonstrate no definite DVT. See above.
[2021-09-27] MEDS ORDERED: SODIUM CHLORIDE 0.9% 1,000 ML IV ONE (12:09)
[2021-09-27] MEDS: NOREPINEPHRINE 32 MG in SODIUM CHLORIDE 0.9% 218 ML IV SCH (19:49)
[2021-09-27] MEDS: CISATRACURIUM 200 MG in SODIUM CHLORIDE 0.9% 180 ML IV SCH (19:50)
--- NOTE | 2021-09-27 20:04 | PN ---
PROGRESS NOTE DATE OF SERVICE: 09/27/2021 This 61-year-old woman who was admitted with acute Covid-19 pneumonia and acute Covid- 19 bilateral interstitial pneumonia also had mild transaminitis. Patient also had factor 5 Leiden deficiency. Multiple consultants are following the patient closely. The venous ultrasound study showed evidence of medications left leg DVT positive. Otherwise, the patient is being closely monitored. Dr. Harris is following the patient closely. PAST MEDICAL HISTORY: Reviewed. REVIEW OF SYSTEMS: Could not be taken, the patient is mechanically sedated. CURRENT MEDICATIONS: Reviewed include Eliquis, vitamin C, Peridex, dexamethasone. Doses and other medications reviewed. PHYSICAL EXAMINATION: Patient mechanically sedated. Pulse 87, blood pressure 140/58, respiration 20, temperature is normal, pulse ox 94% on 100% FIO2 HEENT: Conjunctivae normal. Oral mucosa moist. NECK: No jugular venous distention. No lymph node enlargement. CARDIOVASCULAR: S1, S2, muffled. No S3, no S4, RESPIRATORY: Diminished breath sounds at the bases. A few scattered rhonchi. ABDOMEN: Soft, nontender. LEGS: No edema, no swelling. NERVOUS SYSTEM: No focal deficits. LAB STUDIES: WBC 14.2, hemoglobin is 13.9. INR is 2.2. D-dimer is 9.46. ASSESSMENT: 1. Acute Covid-19 infection with acute Covid-19 bilateral interstitial pneumonia with acute hypoxic hypercarbic respiratory failure. 2. Acute left leg deep vein thrombosis. 3. Primary hypercoagulable state and factor V Leiden deficiency. 4. Mild transaminitis, possibly secondary to Covid-19. 5. History of deep vein thrombosis. 6. History of DJD. 7. History of fibromyalgia. 8. Acute respiratory acidosis. 9. Increased WBC. 10.Anemia. 11.Elevated inflammatory markers of Covid-19. 12.Obesity with body mass index of 36.4. 13.History of pneumonia. 14.History of DJD. 15.History of cholecystectomy. 16.FULL CODE. RECOMMENDATIONS: In this 61-year-old woman presented with multiple complex medical issues, we will monitor the patient closely, continue with current medications, continue to monitor, continue mechanical ventilation. Closely follow with Dr. Harris. The patient is 100% FIO2 and 18 of PEEP also. At this time continue to monitor. See orders for further details. Prognosis guarded. MMODL / IJN: [id number] /
[2021-09-27] MEDS: LEVOFLOXACIN 750MG-D5W PMX 750 MG in DEXTROSE/WATER 1 150ML.BAG IVPB SCH (21:10)
[2021-09-28 04:28] LABS: Basophils # (A) 0.1 k/uL (0-0.2); Basophils % (A) 0 %; Eosinophils % (A) 0 %; HCT 35.8 % (34.0-46.0); Hypochromasia Moderate; Lymphocytes # (A) 1.4 k/uL (1.0-4.8); Lymphocytes % (A) 7 %; MCHC 30.6 g/dL (31.0-37.0); MCV 88.2 fL (80.0-100.0); Monocytes # (A) 0.9 k/uL (0-1.0); Monocytes % (A) 5 %; Neutrophils # (A) 16.8 k/uL (1.3-7.7); Neutrophils % (A) 86 %; Platelet Count 299 k/uL (150-450); Poikilocytosis Slight; RBC 4.06 m/uL (3.80-5.40); RDW 15.3 % (11.5-15.5); WBC 19.4 k/uL (3.8-10.6)
[2021-09-28 04:54] LABS: African American GFR (CKD) >90 (>60 ml/min/1.73 sqM); Anion Gap 4 mmol/L; Blood Urea Nitrogen 23 mg/dL (7-17); Calcium 7.9 mg/dL (8.4-10.2); Carbon Dioxide 21 mmol/L (22-30); Chloride 119 mmol/L (98-107); Glucose 107 mg/dL (74-99); Non-African American GFR(CKD) 89 (>60 ml/min/1.73 sqM); Potassium 4.4 mmol/L (3.5-5.1); Sodium 144 mmol/L (137-145)
[2021-09-28 05:03] LABS: ABG Base Excess -4.3 mmol/L; ABG HCO3 23 mmol/L (21-25); ABG Oxygen Saturation 91.8 % (94-97); ABG PCO2 54 mmHg (35-45); ABG PH 7.24 (7.35-7.45); ABG PO2 63 mmHg (83-108); ABG TCO2 25 mmol/L (19-24)
[2021-09-28 05:48] LABS: Allen Test Performed? no
--- NOTE | 2021-09-28 07:16 | P.PN ---
Subjective Progress Note Date: 09/28/21 61-year-old female who is in the MICU with COVID-19 related pneumonia. The patient stated that she was having symptoms since September 10. The symptoms included shortness of breath, cough, fatigue, muscle aches, and generally just not feeling well. The patient is non vaccinated. She tested positive for coronavirus on September 23. The patient takes Coumadin chronically for her factor V or Leiden factor deficiency. Initially, on room air, her saturations were in the 70s, and on a nonrebreather, only got up into the mid 80s. In addition to the primary hypercoagulable state, she has a history of DVT, fibromyalgia, pneumonia, arthritis, and degenerative disc disease. She is a lifelong nonsmoker. Chest x-ray reveals diffuse bilateral infiltrates. CT angiogram was negative for pulmonary embolism, but did show diffuse infiltrates consistent with coronavirus pneumonia. Subsequently, the patient was placed on a BiPAP for respiratory support. Following that, on 09/25/2021 required intubation and mechanical ventilation. She remains on the ventilator, she is on the volume assist control mode, rate 26, tidal volume 400, FiO2 100%, and PEEP of 15. Arterial blood gases show pO2 of 72 with a pH of 7.27 and pO2 of 47. The patient's peak airway pressure is 39. The patient static pressure is 37. The chest x-ray from today is showing diffuse bilateral pulmonary infiltrates thought the lung patterson more so on the lung bases. ET tube is around 2 cm above the jahaira. The patient has a subclavian triple lumen catheter on the left. The patient is a or G-tube and good location.. The patient's getting saline at 50 mL an hour, Nimbex at 1 mcg/kg/m, propofol at 50 mcg/kg/m, and norepinephrine at 2 mcg/m. the patient has not was started on enteral feeding for nutritional support. Dietary consultation has been obtained. Meanwhile, the blood work shows normal electrolytes, sodium is at 144, BUN is at 23 with a creatinine of 0.7. The LDH level is at 930 from yesterday with a CRP level of 16.2. The patient has a d-dimer of 9.46. The patient has been maintained on long-term medical evaluation with warfarin and INR from today is at 2.2. The patient meanwhile remains on treatment and the patient is on Decadron 6 mg by mouth on a daily basis. The patient has been covered empirically with Levaquin as an I'm antibiotic coverage. Anticoagulation is with warfarin and daily PT/INR is being monitored and the warfarin has been held for now monitoring her PT/INR. Noted the patient has been taking 6 mg of warfarin on outpatient basis. The patient is also on methotrexate for rheumatoid arthritis. Note that the patient's sputum cultures still pending. Blood culture has been negative. Pro-calcitonin level at a time of admission was 0.52. On 09/28/2021, I'm seeing the patient for a follow-up. This is a 59-year-old. Patient is currently intubated on a mechanical ventilator due to COVID 19 related pneumonia with secondary hypoxic respiratory failure. The patient was intubated on 09/25/2021. At this point in time, the patient has sedated with a combination of propofol which is running at 45 mcg/kg per minute and the patient is off fentanyl. The patient is running Nimbex for paralysis as one might respiratory and per minute. The patient is quite interested mechanical ventilator and she is well sedated and paralyzed at this point in time. She is on assist-control mode of mechanical ventilation and she is currently at the rate of 26, tidal volume of 350, FiO2 is at 70% with a PEEP of 18. The blood gases from today showed a pH of 7.24 with a pCO2 of 54 and pO2 of 63. The peak airway pressure is 37. The static pressure is 35. The chest x-ray shows no jess or interval change and the patient continues to have diffuse bilateral pulmonary infiltrates which is essentially unchanged compared to yesterday. ET tube is in a good location. In terms of her inflammatory markers, no new values are not available from today. The last LDH level was from 09/26/2021 and was 9:30 with a CRP of 16.2. Otherwise, the patient remains on treatment and the patient is c urrently on Decadron running at a dose of 6 mg IV every 24 hours. Anti- coagulation was modified. The patient is currently on Eliquis 5 mg by mouth twice a day. Doppler of the lower extremity was completed yesterday and the Doppler showed evidence of DVT in the left common femoral vein through the distal superficial femoral vein. Based on that, the patient was placed on oral Eliquis. Note that the d-dimer was elevated at 9.46 from yesterday. I took the patient off the warfarin. Her INR from yesterday was at 2.2. Hemodynamically, the patient is stable. She is on no pressors. IV fluids are running at the rate of 50 mL an hour of normal saline. The patient was covered apparently with Levaquin. The Pronestyl level was at 0.5. Cultures are negative thus far. The patient was started on enteral feeding for nutritional support. The patient is currently receiving vital high protein at the rate of 24 mL an hour. She is tolerating her enteral feeding. The overall fluid balance is +2.1 L over the past 24 hours. No other significant events otherwise for now. Objective - Vital Signs Vital signs: Vital Signs Temp 98.4 F 09/28/21 04:00 Pulse 85 09/28/21 07:00 Resp 26 H 09/28/21 07:00 BP 118/58 09/28/21 07:00 Pulse Ox 92 L 09/28/21 07:00 Intake & Output 09/27/21 09/28/21 09/28/21 18:59 06:59 18:59 Intake Total 9428.569 2825.772 74 Output Total 565 715 45 Balance 1397.769 778.772 29 Weight 90.3 kg 92 kg Intake: IV 1450 650 50 0.9 NACL 450 650 50 0.9 NACL bolus 1000 Intake, IV Titration 386.769 441.772 Amount Cisatracurium 200 mg In 200 Sodium Chloride 0.9% 180 ml @ 1 MCG/KG/MIN 5.16 mls/hr IV .Q24H [facility] Rx#: [id number] Norepinephrine 32 mg In 0.248 Sodium Chloride 0.9% 218 ml @ 0.05 MCG/KG/MIN 2. 016 mls/hr IV .Q24H [facility] Rx#:[id number] propofoL 1,000 mg In 386.521 241.772 Empty Bag 1 bag @ Titrate IV .Q0M [facility] Rx#: [id number] Tube Feeding 96 312 24 Other 30 90 Output: Urine 565 715 45 Other: Voiding Method Indwelling Catheter Indwelling Catheter # Bowel Movements 1 ABP, PAP, CO, CI - Last Documented Arterial Blood Pressure 143/47 - Exam No acute distress, sedated and paralyzed, with an orally placed endotracheal tube and nasogastric tube. Head exam was generally normal. There was no scleral icterus or corneal arcus. Mucous membranes were moist. Neck was supple and without jugular venous distension, thyromegaly, or carotid bruits. Carotids were easily palpable bilaterally. There was no adenopathy Lungs were clear to auscultation and percussion, and with normal diaphragmatic excursion. No wheezes or rales were noted. Cardiac exam revealed the PMI to be normally situated and sized. The rhythm was regular and no extrasystoles were noted during several minutes of auscultation. The first and second heart sounds were normal and physiologic splitting of the second heart sound was noted. There were no murmurs, rubs, clicks, or gallops. Abdominal exam revealed normal bowel sounds. The abdomen was soft, non-tender, and without masses, organomegaly, or appreciable enlargement of the abdominal aorta. Examination of the extremities revealed easily palpable radial, femoral and pedal pulses. There was no cyanosis, clubbing or edema. Examination of the skin revealed no evidence of significant rashes, suspicious appearing nevi or other concerning lesions. Neurologic examination cannot be assessed as the patient is currently sedated and paralyzed. - Labs CBC & Chem 7: 09/28/21 04:15 09/28/21 04:15 Labs: Abnormal Lab Results - Last 24 Hours (Table) 09/28/21 09/28/21 09/28/21 Range/Units 04:15 04:15 04:55 WBC 19.4 H (3.8-10.6) k/uL Hgb 11.0 L (11.4-16.0) gm/dL MCHC 30.6 L (31.0-37.0) g/dL Neutrophils # 16.8 H (1.3-7.7) k/uL ABG pH 7.24 L (7.35-7.45) ABG pCO2 54 H (35-45) mmHg ABG pO2 63 L (83-108) mmHg ABG Total CO2 25 H (19-24) mmol/L ABG O2 Saturation 91.8 L (94-97) % Chloride 119 H (98-107) mmol/L Carbon Dioxide 21 L (22-30) mmol/L BUN 23 H (7-17) mg/dL Glucose 107 H (74-99) mg/dL Calcium 7.9 L (8.4-10.2) mg/dL Microbiology - Last 24 Hours (Table) 09/23/21 17:40 Blood Culture - Preliminary Blood No Growth after 96 hours 09/23/21 17:53 Blood Culture - Preliminary Blood No Growth after 96 hours Assessment and Plan Plan: 1 Acute hypoxemic respiratory failure secondary to coronavirus associated pneumonia, status post intubation, and mechanical ventilation on 09/25/2021.No evidence of pulmonary embolism on CT angiogram. The patient continues to have diffuse bilateral pulmonary infiltrates consistent with COVID 19 related pneumo lanie. The patient is currently on Decadron 6 mg by mouth on a daily basis. The patient is also on long-term anticoagulation with warfarin and INR is therapeutic for now. Anti-coagulation was given to the patient because of an underlying hypercoagulable state. The less, the Doppler of the lower extremity showed a DVT in the left common femoral vein and the patient was started on Eliquis 5 mg by mouth twice a day and warfarin was discontinued. For now, the patient is an active of 18 with an FiO2 of 70%. The peak and it static pressures continue to be quite elevated and the patient has diffuse bilateral pulmonary infiltrates on the chest x-ray. Not a whole room for further weaning on today's evaluation. 2 acute COVID 19 related pneumonia 3 Mild transaminitis secondary to coronavirus infection. 4 acute left lower extremity femoral DVT currently on Eliquis. The patient is known to have a Primary hypercoagulable state in the form of Leiden factor deficiency/factor V deficiency. The patient has been maintained on warfarin on outpatient basis. 5 Prior history of DVT. 6 History of fibromyalgia. 7 History of arthritis. 8 History of degenerative disc disease. Plan Continue ventilator support for now. Keep the ventilator settings are unchanged. The PEEP will be kept at 80 with an FiO2 of 70%. No role for any further weaning at this point in time. Continue Decadron Continue anticoagulation with Eliquis 5 mg by mouth twice a day Repeat inflammatory markers for tomorrow Cover The patient with IV cefepime 2 g every 12 hours and discontinue the Levaquin No pressors Repeat inflammatory markers for tomorrow Initiate enteral feeding for nutritional support I'm not sure why the patient was on methotrexate. Methotrexate will be kept on hold for now. I'm assuming the patient had a component of rheumatoid arthritis. lasix 40 mg IVP x1 We'll continue to follow make further recommendations based on her progress. This is a critically care evaluation was done and more than 30 minutes. Time with Patient: Greater than 30
[2021-09-28] MEDS ORDERED: FUROSEMIDE 10 MG/ML 4 ML VIAL IV STA (07:32)
[2021-09-28] MEDS: CISATRACURIUM 200 MG in SODIUM CHLORIDE 0.9% 180 ML IV SCH (08:30)
[2021-09-28] MEDS: CHLORHEXIDINE GLUCONATE 15 ML CUP MUCOUS MEM SCH ×2 (08:34→20:38)
[2021-09-28] MEDS: APIXABAN 5 MG TAB PO SCH ×2 (08:34→20:37)
[2021-09-28] MEDS: ASCORBIC ACID 500 MG TAB PO SCH ×2 (08:35→20:37)
[2021-09-28] MEDS: dexAMETHasone 2 MG TAB PO SCH (08:35)
[2021-09-28] MEDS: ZINC SULFATE 220 MG CAP PO SCH (08:35)
[2021-09-28] MEDS: PANTOPRAZOLE 40 MG/10 ML VIAL IV SCH (08:35)
[2021-09-28] MEDS: CEFEPIME 2 GM in SODIUM CHLORIDE 0.9% 100 ML IVPB SCH ×2 (08:35→20:38)
--- NOTE | 2021-09-28 08:45 | XR ---
EXAMINATION TYPE: XR chest 1V portable DATE OF EXAM: 09/28/2021 Comparison: 09/27/2021 Clinical History: 61-year-old female Tube placement Findings: NG tube and ET tube satisfactory. Left subclavian CVC tip at the cavoatrial junction. Heart upper yañez its of normal in size. Diffuse groundglass and patchy lower lung opacities persist without significan t change. No pneumothorax. Impression: Similar diffuse interstitial and patchy mid and lower lung COVID pneumonia.
[2021-09-28] MEDS: ARTIFICIAL TEARS-HYPROMELLOSE DROPS 15 ML BTL BOTH EYES SCH ×4 (09:13→21:01)
--- NOTE | 2021-09-28 11:07 | CDI ---
Documentation Clarification Form Date: 09/28/2021 10:53:36 AM From: Gracie HairstonGENEVIEVE biswas, CCDS Admit Date: 09/23/2021 09:19:00 PM Patient Name: Matti Estrelal Visit Number: [id number] Discharge Date: ATTENTION: The Clinical Documentation Specialists (CDI) and [facility] Coding Staff appreciate your assistance in clarifying documentation. Please respond to the clarification below the line at the bottom and electronically sign. The CDI & [facility] Coding staff will review the response and follow-up if needed. Please note: Queries are made part of the Legal Health Record. If you have any questions, please contact the author of this message via ITS. Dr. Christine Mcclain: Unspecified anemia is documented in the 09/27 Attending Progress Note without further specificity. Additional specificity regarding the Type and Acuity of Anemia is requested. History/Risk Factors per the 09/24 H/P: DVT, Clotting disorder: Factor V Leiden deficiency on Coumadin, Fibromyalgia, Arthritis, Bronchitis, Pneumonia. Clinical indicators: Presented to the ED on 09/23 via EMS with low pulse ox, in 70s per EMS, put on nrb, up to 80s. Patient has had difficulty breathing since 09/10. Admit with COVID Pneumonia. Hemoglobin 09/23: 13.4; 09/25: 11.9; 09/26: 10.5; 09/27: 10.9; 09/28: 11.0 Hematocrit 09/23: 41.4; 09/25: 37.5; 09/26: 32.4; 09/27: 33.4; 09/28: 35.8 Treatment 09/23: Pulmonary Consulted, Blood Cultures, O2 15L nrb to 60% High Flow to 100% BiPAP. (Intubated on 09/25); IV Levaquin, IV Kcl, IV Ativan, IV Na Cl 500 mls @ 999 mls/hr 131M, IV Na Cl 1,000 mls @ 130 mls/hr q7H. 09/24: po Hexadrol daily, po Vit C BID, po Orazinc daily, IV Levaquin q24. 09/25: Intubated on vent, remains on vent as of 09/28. IV Nimbex, IV Propofol, IV Na Cl 2,000 mls @ 999 mls/hr q2H 09/26: po Vit D2, IV Protonix. 09/27: po Eliquis 5 mg BID, IV Na Cl 1,000 mls @ 999 mls/hr q1H 09/28: IV Lasix 40 mg x1, IV Cefepime q12H. Please clarify the type and acuity of anemia: [ ] Acute blood loss anemia, please specify cause if known: [ ] Acute on chronic blood loss anemia [ ] Chronic blood loss anemia, specify cause if known: [ ] Hemolytic anemia [ ] Drug induced anemia, please specify drug(s) if known: [ ] Nutritional anemia [ ] Unable to determine [ ] Other, please specify: (Template Last Revised: October 2020) Unable to determine MTDD
--- NOTE | 2021-09-28 14:12 | P.PN ---
Subjective Progress Note Date: 09/28/21 This is a 61-year-old female who was recently admitted with acute COVID-19 pneumonia with acute COVID-19 bilateral interstitial pneumonia and also with transaminitis and being closely monitored. Patient remains in the ICU and currently intubated and sedated with an FiO2 of 70% and PEEP is 18. 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 Patient did have a venous Doppler study done recently which showed left leg DVT and patient is maintained on Eliquis will continue. Patient also continues on empiric antibiotics and awaiting for sputum culture finalized. Patient was started on IV cefepime and will continue. Patient is also continued on oral dexamethasone along with vitamin and zinc supplements and will continue. Patient with some mild volume overload and given a dose of IV Lasix push today. Review of systems: Unable to obtain as patient is mechanically intubated and sedated Labs: WBC is 19.4, hemoglobin is 11.0, platelets are 299, sodium is 144, potassium is 4.4, BUN is 23, creatinine 0.73 Active Medications Apixaban (Apixaban 5 Mg Tab) 5 mg PO BID [facility]; Protocol Last Admin: 09/28/21 08:34 Dose: 5 mg Documented by: Artificial Tears (Artificial Tears-Hypromellose Drops 15 Ml Btl) 2 drops BOTH EYES QID [facility] [place] Last Admin: 09/28/21 09:13 Dose: 2 drops Documented by: Ascorbic Acid (Ascorbic Acid 500 Mg Tab) 500 mg PO BID [facility] Last Admin: 09/28/21 08:35 Dose: 500 mg Documented by: Chlorhexidine Gluconate (Chlorhexidine Gluconate 15 Ml Cup) 15 ml MUCOUS MEM BID [facility] Last Admin: 09/28/21 08:34 Dose: 15 ml Documented by: Dexamethasone (Dexamethasone 2 Mg Tab) 6 mg PO DAILY [facility] Last Admin: 09/28/21 08:35 Dose: 6 mg Documented by: Ergocalciferol (Ergocalciferol 1,250 Mcg (50,000 Iu) Capsule) 1,250 mcg PO MORRIS [facility] [place] Last Admin: 09/26/21 09:15 Dose: 1,250 mcg Documented by: Propofol 1,000 mg/ IV Solution 100 mls @ 0 mls/hr IV .Q0M [facility] [place]; Protocol Last Admin: 09/28/21 12:08 Dose: 50 mcg/kg/min, 27.6 mls/hr Documented by: Cisatracurium Besylate 200 mg/ (Sodium Chloride) 200 mls @ 5.16 mls/hr IV .Q24H [facility] [place]; Protocol Last Admin: 09/28/21 08:30 Dose: 2 mcg/kg/min, 10.32 mls/hr Documented by: Norepinephrine Bitartrate 32 (mg/ Sodium Chloride) 250 mls @ 2.016 mls/hr IV .Q24H [facility] [place]; Protocol Last Admin: 09/27/21 19:49 Dose: Not Given Documented by: Cefepime HCl 2 gm/ Sodium (Chloride) 100 mls @ 25 mls/hr IVPB Q12HR [facility] [place] Last Admin: 09/28/21 08:35 Dose: 25 mls/hr Documented by: Miscellaneous Information (Pneumonia Protocol [facility] 1 each PO ONCE PRN PRN Reason: Per Protocol Naloxone HCl (Naloxone 0.4 Mg/Ml 1 Ml Vial) 0.2 mg IV Q2M PRN PRN Reason: Opioid Reversal Pantoprazole Sodium (Pantoprazole 40 Mg/10 Ml Vial) 40 mg IV DAILY [facility] [place] Last Admin: 09/28/21 08:35 Dose: 40 mg Documented by: Zinc Sulfate (Zinc Sulfate 220 Mg Cap) 220 mg PO DAILY [facility] [place] Last Admin: 09/28/21 08:35 Dose: 220 mg Documented by: Physical Exam: Gen: This is a this is a 61-year-old female currently sedated and intubated. HEENT: Head is atraumatic, normocephalic. Pupils equal, round. Sclerae is anicteric. NECK: Supple. No JVD. No lymphadenopathy. No thyromegaly. LUNGS: Clear to auscultation. No wheezes or rhonchi. No intercostal retractions. HEART: Regular rate and rhythm. No murmur. ABDOMEN: Soft. Bowel sounds are present. No masses. No tenderness. EXTREMITIES: No pedal edema. No calf tenderness. NEUROLOGICAL: Patient is awake, alert and oriented x3. Cranial nerves 2 through 12 are grossly intact. Assessment: Acute COVID-19 infection with acute COVID-19 bilateral interstitial pneumonia with hypoxic hypercarbic respiratory failure Acute left leg deep vein thrombosis Primary hypercoagulable state and factor V week deficiency Mild transaminitis, possibly secondary to COVID-19 History of DVT History of degenerative joint disease History of fibromyalgia Acute respiratory acidosis Increased white blood count anemia, unknown etiology Elevated inflammatory markers of COVID-19 Obesity with a body mass index of 36.4 History of pneumonia History of cholecystectomy Full code Plan: Recommend to continue with current medications and follow along closely with multiple medical consultations. Prognosis remains guarded with multiple complex medical issues noted. Patient continues on mechanical ventilation with an FiO2 of 70% and PEEP is 18 with no room for weaning at this time. Recommend continue with current medications and patient has been hard on IV cefepime and will await sputum cultures. Blood cultures thus far remain negative. Recommend patient to continue on Eliquis and monitor closely for any signs of bleeding. Chest x-ray done today shows similar diffuse interstitial and patchy mid and lower lung Covid pneumonia without significant change. Recommend repeat labs and chest x- ray in the morning. Again due to multiple complex medical issues prognosis is guarded. Objective - Vital Signs Vital signs: Vital Signs Temp 98.6 F 09/28/21 12:00 Pulse 85 09/28/21 12:00 Resp 24 09/28/21 12:00 BP 118/58 09/28/21 08:00 Pulse Ox 90 L 09/28/21 12:00 Intake & Output 09/27/21 09/28/21 09/28/21 18:59 06:59 18:59 Intake Total 8659.024 6718.772 652.852 Output Total 226 141 3156 Balance 1397.769 778.772 -1042.148 Weight 90.3 kg 92 kg Intake: IV 1450 650 300 0.9 NACL 450 650 300 0.9 NACL bolus 1000 Intake, IV Titration 386.769 441.772 148.852 Amount Cisatracurium 200 mg In 200 Sodium Chloride 0.9% 180 ml @ 1 MCG/KG/MIN 5.16 mls/hr IV .Q24H [facility] Rx#: [id number] Norepinephrine 32 mg In 0.248 Sodium Chloride 0.9% 218 ml @ 0.05 MCG/KG/MIN 2. 016 mls/hr IV .Q24H [facility] Rx#:[id number] propofoL 1,000 mg In 386.521 241.772 148.852 Empty Bag 1 bag @ Titrate IV .Q0M [facility] Rx#: [id number] Tube Feeding 96 312 144 Other 30 90 60 Output: Urine 535 567 5856 Other: Voiding Method Indwelling Catheter Indwelling Catheter Indwelling Catheter # Bowel Movements 1 ABP, PAP, CO, CI - Last Documented Arterial Blood Pressure 114/55 - Labs CBC & Chem 7: 09/28/21 04:15 09/28/21 04:15 Labs: Abnormal Lab Results - Last 24 Hours (Table) 09/28/21 09/28/21 09/28/21 Range/Units 04:15 04:15 04:55 WBC 19.4 H (3.8-10.6) k/uL Hgb 11.0 L (11.4-16.0) gm/dL MCHC 30.6 L (31.0-37.0) g/dL Neutrophils # 16.8 H (1.3-7.7) k/uL ABG pH 7.24 L (7.35-7.45) ABG pCO2 54 H (35-45) mmHg ABG pO2 63 L (83-108) mmHg ABG Total CO2 25 H (19-24) mmol/L ABG O2 Saturation 91.8 L (94-97) % Chloride 119 H (98-107) mmol/L Carbon Dioxide 21 L (22-30) mmol/L BUN 23 H (7-17) mg/dL Glucose 107 H (74-99) mg/dL Calcium 7.9 L (8.4-10.2) mg/dL Microbiology - Last 24 Hours (Table) 09/25/21 20:54 Gram Stain - Final Sputum Sputum Culture - Final 09/23/21 17:40 Blood Culture - Preliminary Blood No Growth after 96 hours 09/23/21 17:53 Blood Culture - Preliminary Blood No Growth after 96 hours
[2021-09-28] MEDS: NOREPINEPHRINE 32 MG in SODIUM CHLORIDE 0.9% 218 ML IV SCH (18:48)
[2021-09-29] MEDS ORDERED: fentaNYL (PF). 1,000 MCG in SODIUM CHLORIDE 0.9% 80 ML IV SCH (03:00)
[2021-09-29 04:43] LABS: ABG Base Excess 1.7 mmol/L; ABG HCO3 28 mmol/L (21-25); ABG Oxygen Saturation 89.8 % (94-97); ABG PCO2 52 mmHg (35-45); ABG PH 7.33 (7.35-7.45); ABG TCO2 29 mmol/L (19-24)
[2021-09-29 04:58] LABS: ABG PO2 56 mmHg (83-108); Allen Test Performed? no
[2021-09-29] MEDS: SODIUM CHLORIDE 0.9% 1,000 ML IV SCH (05:00)
[2021-09-29 05:18] LABS: African American GFR (CKD) >90 (>60 ml/min/1.73 sqM); Anion Gap 5 mmol/L; Blood Urea Nitrogen 27 mg/dL (7-17); C Reactive Protein 5.8 mg/dL (<1.0); Calcium 7.9 mg/dL (8.4-10.2); Carbon Dioxide 25 mmol/L (22-30); Chloride 114 mmol/L (98-107); Glucose 115 mg/dL (74-99); LDH 650 U/L (313-618); Non-African American GFR(CKD) >90 (>60 ml/min/1.73 sqM); Sodium 144 mmol/L (137-145)
[2021-09-29 05:28] LABS: Basophils % (A) 0 %; Eosinophils # (A) 0.1 k/uL (0-0.7); Eosinophils % (A) 1 %; HCT 33.7 % (34.0-46.0); HGB 10.5 gm/dL (11.4-16.0); Hypochromasia Moderate; Lymphocytes # (A) 1.4 k/uL (1.0-4.8); Lymphocytes % (A) 9 %; MCH 27.2 pg (25.0-35.0); MCHC 31.3 g/dL (31.0-37.0); MCV 87.1 fL (80.0-100.0); Mean Platelet Volume 8.4; Monocytes % (A) 6 %; Neutrophils # (A) 13.5 k/uL (1.3-7.7); Neutrophils % (A) 84 %; Platelet Count 268 k/uL (150-450); Poikilocytosis Slight; RBC 3.87 m/uL (3.80-5.40); RDW 15.3 % (11.5-15.5); WBC 16.1 k/uL (3.8-10.6)
--- NOTE | 2021-09-29 06:27 | XR ---
EXAMINATION TYPE: XR chest 1V portable DATE OF EXAM: 09/29/2021 CLINICAL HISTORY: Difficulty breathing and tube placement progress study. TECHNIQUE: Single AP portable semi-upright view of the chest is obtained. COMPARISON: Chest x-ray from one day earlier and older studies. FINDINGS: Stable endotracheal and orogastric tubes. Stable left-sided subclavian central venous cath eter. Persistent bilateral multifocal and confluent increased opacities greatest in the lower lungs. Cardia c silhouette size is stable and upper limits of normal. Recurrent subcutaneous emphysema is present. There is new small left apical pneumothorax estimated under 5%. New pneumomediastinum is seen. Show v isualization of fusion hardware in the cervical spine. IMPRESSION: Bilateral multifocal and confluent opacities redemonstrated consistent with covid-19 infe ction are redemonstrated. No significant change from one day earlier. New small left apical pneumotho rax estimated under 5%. New Pneumomediastinum. Recurrent overlying subcutaneous emphysema. Results communicated to patient's nurse via telephone at time of dictation. A Document Only message has been documented for Ash Pope [id number] in the Team [employer] Result system on 09/29/2021 6:25 AM, Message ID [id number].
[2021-09-29] MEDS ORDERED: FUROSEMIDE 10 MG/ML 4 ML VIAL IV STA (07:24)
--- NOTE | 2021-09-29 07:30 | P.PN ---
Subjective Progress Note Date: 09/29/21 61-year-old female who is in the MICU with COVID-19 related pneumonia. The patient stated that she was having symptoms since September 10. The symptoms included shortness of breath, cough, fatigue, muscle aches, and generally just not feeling well. The patient is non vaccinated. She tested positive for coronavirus on September 23. The patient takes Coumadin chronically for her factor V or Leiden factor deficiency. Initially, on room air, her saturations were in the 70s, and on a nonrebreather, only got up into the mid 80s. In addition to the primary hypercoagulable state, she has a history of DVT, fibromyalgia, pneumonia, arthritis, and degenerative disc disease. She is a lifelong nonsmoker. Chest x-ray reveals diffuse bilateral infiltrates. CT angiogram was negative for pulmonary embolism, but did show diffuse infiltrates consistent with coronavirus pneumonia. Subsequently, the patient was placed on a BiPAP for respiratory support. Following that, on 09/25/2021 required intubation and mechanical ventilation. She remains on the ventilator, she is on the volume assist control mode, rate 26, tidal volume 400, FiO2 100%, and PEEP of 15. Arterial blood gases show pO2 of 72 with a pH of 7.27 and pO2 of 47. The patient's peak airway pressure is 39. The patient static pressure is 37. The chest x-ray from today is showing diffuse bilateral pulmonary infiltrates thought the lung patterson more so on the lung bases. ET tube is around 2 cm above the jahaira. The patient has a subclavian triple lumen catheter on the left. The patient is a or G-tube and good location.. The patient's getting saline at 50 mL an hour, Nimbex at 1 mcg/kg/m, propofol at 50 mcg/kg/m, and norepinephrine at 2 mcg/m. the patient has not was started on enteral feeding for nutritional support. Dietary consultation has been obtained. Meanwhile, the blood work shows normal electrolytes, sodium is at 144, BUN is at 23 with a creatinine of 0.7. The LDH level is at 930 from yesterday with a CRP level of 16.2. The patient has a d-dimer of 9.46. The patient has been maintained on long-term medical evaluation with warfarin and INR from today is at 2.2. The patient meanwhile remains on treatment and the patient is on Decadron 6 mg by mouth on a daily basis. The patient has been covered empirically with Levaquin as an I'm antibiotic coverage. Anticoagulation is with warfarin and daily PT/INR is being monitored and the warfarin has been held for now monitoring her PT/INR. Noted the patient has been taking 6 mg of warfarin on outpatient basis. The patient is also on methotrexate for rheumatoid arthritis. Note that the patient's sputum cultures still pending. Blood culture has been negative. Pro-calcitonin level at a time of admission was 0.52. On 09/28/2021, I'm seeing the patient for a follow-up. This is a 59-year-old. Patient is currently intubated on a mechanical ventilator due to COVID 19 related pneumonia with secondary hypoxic respiratory failure. The patient was intubated on 09/25/2021. At this point in time, the patient has sedated with a combination of propofol which is running at 45 mcg/kg per minute and the patient is off fentanyl. The patient is running Nimbex for paralysis as one might respiratory and per minute. The patient is quite interested mechanical ventilator and she is well sedated and paralyzed at this point in time. She is on assist-control mode of mechanical ventilation and she is currently at the rate of 26, tidal volume of 350, FiO2 is at 70% with a PEEP of 18. The blood gases from today showed a pH of 7.24 with a pCO2 of 54 and pO2 of 63. The peak airway pressure is 37. The static pressure is 35. The chest x-ray shows no jess or interval change and the patient continues to have diffuse bilateral pulmonary infiltrates which is essentially unchanged compared to yesterday. ET tube is in a good location. In terms of her inflammatory markers, no new values are not available from today. The last LDH level was from 09/26/2021 and was 9:30 with a CRP of 16.2. Otherwise, the patient remains on treatment and the patient is c urrently on Decadron running at a dose of 6 mg IV every 24 hours. Anti- coagulation was modified. The patient is currently on Eliquis 5 mg by mouth twice a day. Doppler of the lower extremity was completed yesterday and the Doppler showed evidence of DVT in the left common femoral vein through the distal superficial femoral vein. Based on that, the patient was placed on oral Eliquis. Note that the d-dimer was elevated at 9.46 from yesterday. I took the patient off the warfarin. Her INR from yesterday was at 2.2. Hemodynamically, the patient is stable. She is on no pressors. IV fluids are running at the rate of 50 mL an hour of normal saline. The patient was covered apparently with Levaquin. The Pronestyl level was at 0.5. Cultures are negative thus far. The patient was started on enteral feeding for nutritional support. The patient is currently receiving vital high protein at the rate of 24 mL an hour. She is tolerating her enteral feeding. The overall fluid balance is +2.1 L over the past 24 hours. No other significant events otherwise for now. 09/29/2021, the patient is being seen for a follow-up. This is a 59-year-old female patient is currently intubated on a mechanical ventilator and she's been intubated since 09/25/2021 for COVID 19 related pneumonia and respiratory failure. The patient remains on a mechanical ventilator this morning. The patient is currently on propofol which is running at 45 Ash as per kilogram per minute and the patient remains on fentanyl at 0.5 mcg/kg/h. The patient is also paralyzed with Nimbex. The ventilator setting today shows an assist- control of 26, tidal volume of 350, FiO2 of 70% with a PEEP of 18. Peak airway pressure is 39. Static pressures 37. The chest x-ray from today obviously showing evidence of subcutaneous emphysema in the neck which is obviously a new finding. There is also a very tiny less than 5% pneumothorax in the left apex. There is diffuse bilateral pulmonary infiltrates consistent with COVID 19 related pneumonia. Note that the subcutaneous emphysema is also extending on her anterior chest area. ET tube is in a good location. The blood gases from today show a pH of 7.33 with a pCO2 of 50-56. In terms of her COVID 19 infection, the patient carries a d-dimer of 2.19. The LDH level is at 650 with a CRP level of 5.8. Note that the LDH level is lower compared to her earlier values. Rest of the blood work essentially negative. The patient has a white cell count of 16 with a hemoglobin of 10.5. Electrodes are still pending for now. The patient remains on empiric antibiotic coverage with IV cefepime. The patient remains on Decadron 6 mg by mouth on a daily basis and the patient is on anticoagulants utilizing Coumadin and we are doing daily PT/INR monitoring. INR from today is still pending. INR from yesterday was therapeutic at 2.2. The patient has been maintained on warfarin on outpatient basis. switched patient to Eliquis which will be easier to manage without monitoring her PT/INR on a daily basis. The cultures of been all negative. The neck fluid balance over the past 24 hours has been +2.1 L. She is on Tube feeds on vital HP @ 24 cc/hr. She is on NSS @ 50 cc/hr Objective - Vital Signs Vital signs: Vital Signs Temp 98.5 F 09/29/21 04:00 Pulse 71 09/29/21 07:00 Resp 26 H 09/29/21 07:00 BP 103/57 09/29/21 07:00 Pulse Ox 87 L 09/29/21 07:00 Intake & Output 09/28/21 09/29/21 09/29/21 18:59 06:59 18:59 Intake Total 9960.362 2625.584 90.146 Output Total 2470 595 30 Balance -1202.768 911.584 60.146 Weight 92 kg Intake: IV 600 550 50 0.9 NACL 600 550 50 Intake, IV Titration 319.232 602.584 16.146 Amount Cefepime 2 gm In Sodium 100 Chloride 0.9% 100 ml @ 25 mls/hr IVPB Q12HR [facility] Rx #:[id number] Cisatracurium 200 mg In 200.000 Sodium Chloride 0.9% 180 ml @ 1 MCG/KG/MIN 5.16 mls/hr IV .Q24H [facility] Rx#: [id number] propofoL 1,000 mg In 319.232 302.584 16.146 Empty Bag 1 bag @ Titrate IV .Q0M [facility] Rx#: [id number] Tube Feeding 288 264 24 Other 60 90 Output: Urine 2470 595 30 Other: Voiding Method Indwelling Catheter Indwelling Catheter ABP, PAP, CO, CI - Last Documented Arterial Blood Pressure 116/43 - Exam No acute distress, sedated and paralyzed, with an orally placed endotracheal tube and nasogastric tube. The patient has evidence of subcutaneous emphysema in the neck and anterior chest area and this can be easily palpated on today's evaluation. Head exam was generally normal. There was no scleral icterus or corneal arcus. Mucous membranes were moist. Neck was supple and without jugular venous distension, thyromegaly, or carotid bruits. Carotids were easily palpable bilaterally. There was no adenopathy Lungs were clear to auscultation and percussion, and with normal diaphragmatic excursion. No wheezes or rales were noted. Cardiac exam revealed the PMI to be normally situated and sized. The rhythm was regular and no extrasystoles were noted during several minutes of auscultation. The first and second heart sounds were normal and physiologic splitting of the second heart sound was noted. There were no murmurs, rubs, clicks, or gallops. Abdominal exam revealed normal bowel sounds. The abdomen was soft, non-tender, and without masses, organomegaly, or appreciable enlargement of the abdominal aorta. Examination of the extremities revealed easily palpable radial, femoral and pedal pulses. There was no cyanosis, clubbing or edema. Examination of the skin revealed no evidence of significant rashes, suspicious appearing nevi or other concerning lesions. Neurologic examination cannot be assessed as the patient is currently sedated and paralyzed. - Labs CBC & Chem 7: 09/29/21 04:48 09/29/21 04:48 Labs: Abnormal Lab Results - Last 24 Hours (Table) 09/29/21 09/29/21 09/29/21 Range/Units 04:40 04:48 04:48 WBC 16.1 H (3.8-10.6) k/uL Hgb 10.5 L (11.4-16.0) gm/dL Hct 33.7 L (34.0-46.0) % Neutrophils # 13.5 H (1.3-7.7) k/uL D-Dimer (<0.60) mg/L FEU ABG pH 7.33 L (7.35-7.45) ABG pCO2 52 H (35-45) mmHg ABG pO2 56 L* (83-108) mmHg ABG HCO3 28 H (21-25) mmol/L ABG Total CO2 29 H (19-24) mmol/L ABG O2 Saturation 89.8 L (94-97) % Chloride 114 H (98-107) mmol/L BUN 27 H (7-17) mg/dL Glucose 115 H (74-99) mg/dL Calcium 7.9 L (8.4-10.2) mg/dL Lactate Dehydrogenase 650 H (313-618) U/L C-Reactive Protein 5.8 H (<1.0) mg/dL 09/29/21 Range/Units 04:48 WBC (3.8-10.6) k/uL Hgb (11.4-16.0) gm/dL Hct (34.0-46.0) % Neutrophils # (1.3-7.7) k/uL D-Dimer 2.19 H (<0.60) mg/L FEU ABG pH (7.35-7.45) ABG pCO2 (35-45) mmHg ABG pO2 (83-108) mmHg ABG HCO3 (21-25) mmol/L ABG Total CO2 (19-24) mmol/L ABG O2 Saturation (94-97) % Chloride (98-107) mmol/L BUN (7-17) mg/dL Glucose (74-99) mg/dL Calcium (8.4-10.2) mg/dL Lactate Dehydrogenase (313-618) U/L C-Reactive Protein (<1.0) mg/dL Microbiology - Last 24 Hours (Table) 09/23/21 17:53 Blood Culture - Preliminary Blood No Growth after 120 hours 09/23/21 17:40 Blood Culture - Preliminary Blood No Growth after 120 hours 09/25/21 20:54 Gram Stain - Final Sputum Sputum Culture - Final Assessment and Plan Plan: 1 Acute hypoxemic respiratory failure secondary to coronavirus associated pneumonia, status post intubation, and mechanical ventilation on 09/25/2021.No evidence of pulmonary embolism on CT angiogram. The patient continues to have diffuse bilateral pulmonary infiltrates consistent with COVID 19 related pneumonia. The patient is currently on Decadron 6 mg by mouth on a daily basis. The patient is also on long-term anticoagulation with warfarin and INR is the rapeutic for now. Anti-coagulation was given to the patient because of an underlying hypercoagulable state. The less, the Doppler of the lower extremity showed a DVT in the left common femoral vein and the patient was started on Eliquis 5 mg by mouth twice a day and warfarin was discontinued. For now, the patient has developed a tiny left apical pneumothorax in addition subcutaneous emphysema. The peak and static pressures are 39 and 37 respectively. I'm suggesting further drop and tidal volume down to 325 and having done that, the static pressure dropped down to 35. We'll make some adjustments on the FiO2 and will bring it up to 80%. We'll give the patient dose of Lasix. Chest x-ray findings was noted. Blood gases was noted. The patient has developed a tiny left apical pneumothorax in addition to subcutaneous emphysema. 2 acute COVID 19 related pneumonia 3 subcutaneous emphysema involving the neck and the chest in addition to a tiny left apical pneumothorax. 4 acute left lower extremity femoral DVT currently on Eliquis. The patient is known to have a Primary hypercoagulable state in the form of Leiden factor deficiency/factor V deficiency. The patient has been maintained on warfarin on outpatient basis. 5 Prior history of DVT. 6 History of fibromyalgia. 7 History of arthritis. 8 History of degenerative disc disease. 9 Mild transaminitis secondary to coronavirus infection. Plan Continue ventilator support for now. Keep the ventilator settings are unch anged. The PEEP will be kept at18 with an FiO2 of 80%. Drop TV to 325 Continue Decadron Continue anticoagulation with Eliquis 5 mg by mouth twice a day Repeat inflammatory markers show improvement Cover The patient with IV cefepime 2 g every 12 hours Lasix 40 mg IVP No pressors enteral feeding for nutritional support I'm not sure why the patient was on methotrexate. Methotrexate will be kept on hold for now. I'm assuming the patient had a component of rheumatoid arthritis. We'll continue to follow make further recommendations based on her progress. This is a critically care evaluation was done and more than 30 minutes. Time with Patient: Greater than 30
[2021-09-29] MEDS: dexAMETHasone 2 MG TAB PO SCH (07:48)
[2021-09-29] MEDS: CHLORHEXIDINE GLUCONATE 15 ML CUP MUCOUS MEM SCH ×2 (07:48→20:06)
[2021-09-29] MEDS: ASCORBIC ACID 500 MG TAB PO SCH ×2 (07:48→20:06)
[2021-09-29] MEDS: APIXABAN 5 MG TAB PO SCH ×2 (07:48→20:06)
[2021-09-29] MEDS: PANTOPRAZOLE 40 MG/10 ML VIAL IV SCH (07:48)
[2021-09-29] MEDS: ZINC SULFATE 220 MG CAP PO SCH (07:48)
[2021-09-29] MEDS: ARTIFICIAL TEARS-HYPROMELLOSE DROPS 15 ML BTL BOTH EYES SCH ×4 (07:49→22:40)
[2021-09-29] MEDS: CEFEPIME 2 GM in SODIUM CHLORIDE 0.9% 100 ML IVPB SCH ×2 (07:49→20:07)
[2021-09-29] MEDS: fentaNYL (PF) 2,500 MCG in SODIUM CHLORIDE 0.9% 200 ML IV SCH (13:18)
[2021-09-29] MEDS: CISATRACURIUM 200 MG in SODIUM CHLORIDE 0.9% 180 ML IV SCH (19:37)
[2021-09-29] MEDS: NOREPINEPHRINE 8 MG in SODIUM CHLORIDE 0.9% 250 ML IV SCH (20:30)
[2021-09-30] MEDS: SODIUM CHLORIDE 0.9% 1,000 ML IV SCH (02:41)
[2021-09-30 04:16] LABS: Basophils # (A) 0.1 k/uL (0-0.2); Basophils % (A) 0 %; Eosinophils # (A) 0.1 k/uL (0-0.7); Eosinophils % (A) 1 %; HCT 34.5 % (34.0-46.0); HGB 10.6 gm/dL (11.4-16.0); Hypochromasia Moderate; Lymphocytes # (A) 1.5 k/uL (1.0-4.8); Lymphocytes % (A) 10 %; MCHC 30.8 g/dL (31.0-37.0); MCV 87.9 fL (80.0-100.0); Mean Platelet Volume 8.1; Monocytes # (A) 1.1 k/uL (0-1.0); Monocytes % (A) 7 %; Neutrophils # (A) 12.8 k/uL (1.3-7.7); Neutrophils % (A) 81 %; Platelet Count 261 k/uL (150-450); Poikilocytosis Slight; RBC 3.93 m/uL (3.80-5.40); RDW 14.9 % (11.5-15.5); WBC 15.8 k/uL (3.8-10.6)
[2021-09-30 04:35] LABS: African American GFR (CKD) >90 (>60 ml/min/1.73 sqM); Anion Gap 1 mmol/L; Blood Urea Nitrogen 35 mg/dL (7-17); C Reactive Protein 5.3 mg/dL (<1.0); Carbon Dioxide 31 mmol/L (22-30); Chloride 111 mmol/L (98-107); Glucose 126 mg/dL (74-99); LDH 599 U/L (313-618); Non-African American GFR(CKD) >90 (>60 ml/min/1.73 sqM); Potassium 4.1 mmol/L (3.5-5.1); Sodium 143 mmol/L (137-145)
[2021-09-30 05:27] LABS: ABG Base Excess 3.3 mmol/L; ABG HCO3 30 mmol/L (21-25); ABG Oxygen Saturation 94.6 % (94-97); ABG PCO2 66 mmHg (35-45); ABG PH 7.27 (7.35-7.45); ABG PO2 75 mmHg (83-108); ABG TCO2 32 mmol/L (19-24); Allen Test Performed? Yes
--- NOTE | 2021-09-30 07:10 | P.PN ---
Subjective Progress Note Date: 09/30/21 61-year-old female who is in the MICU with COVID-19 related pneumonia. The patient stated that she was having symptoms since September 10. The symptoms included shortness of breath, cough, fatigue, muscle aches, and generally just not feeling well. The patient is non vaccinated. She tested positive for coronavirus on September 23. The patient takes Coumadin chronically for her factor V or Leiden factor deficiency. Initially, on room air, her saturations were in the 70s, and on a nonrebreather, only got up into the mid 80s. In addition to the primary hypercoagulable state, she has a history of DVT, fibromyalgia, pneumonia, arthritis, and degenerative disc disease. She is a lifelong nonsmoker. Chest x-ray reveals diffuse bilateral infiltrates. CT angiogram was negative for pulmonary embolism, but did show diffuse infiltrates consistent with coronavirus pneumonia. Subsequently, the patient was placed on a BiPAP for respiratory support. Following that, on 09/25/2021 required intubation and mechanical ventilation. She remains on the ventilator, she is on the volume assist control mode, rate 26, tidal volume 400, FiO2 100%, and PEEP of 15. Arterial blood gases show pO2 of 72 with a pH of 7.27 and pO2 of 47. The patient's peak airway pressure is 39. The patient static pressure is 37. The chest x-ray from today is showing diffuse bilateral pulmonary infiltrates thought the lung patterson more so on the lung bases. ET tube is around 2 cm above the jahaira. The patient has a subclavian triple lumen catheter on the left. The patient is a or G-tube and good location.. The patient's getting saline at 50 mL an hour, Nimbex at 1 mcg/kg/m, propofol at 50 mcg/kg/m, and norepinephrine at 2 mcg/m. the patient has not was started on enteral feeding for nutritional support. Dietary consultation has been obtained. Meanwhile, the blood work shows normal electrolytes, sodium is at 144, BUN is at 23 with a creatinine of 0.7. The LDH level is at 930 from yesterday with a CRP level of 16.2. The patient has a d-dimer of 9.46. The patient has been maintained on long-term medical evaluation with warfarin and INR from today is at 2.2. The patient meanwhile remains on treatment and the patient is on Decadron 6 mg by mouth on a daily basis. The patient has been covered empirically with Levaquin as an I'm antibiotic coverage. Anticoagulation is with warfarin and daily PT/INR is being monitored and the warfarin has been held for now monitoring her PT/INR. Noted the patient has been taking 6 mg of warfarin on outpatient basis. The patient is also on methotrexate for rheumatoid arthritis. Note that the patient's sputum cultures still pending. Blood culture has been negative. Pro-calcitonin level at a time of admission was 0.52. On 09/28/2021, I'm seeing the patient for a follow-up. This is a 59-year-old. Patient is currently intubated on a mechanical ventilator due to COVID 19 related pneumonia with secondary hypoxic respiratory failure. The patient was intubated on 09/25/2021. At this point in time, the patient has sedated with a combination of propofol which is running at 45 mcg/kg per minute and the patient is off fentanyl. The patient is running Nimbex for paralysis as one might respiratory and per minute. The patient is quite interested mechanical ventilator and she is well sedated and paralyzed at this point in time. She is on assist-control mode of mechanical ventilation and she is currently at the rate of 26, tidal volume of 350, FiO2 is at 70% with a PEEP of 18. The blood gases from today showed a pH of 7.24 with a pCO2 of 54 and pO2 of 63. The peak airway pressure is 37. The static pressure is 35. The chest x-ray shows no jess or interval change and the patient continues to have diffuse bilateral pulmonary infiltrates which is essentially unchanged compared to yesterday. ET tube is in a good location. In terms of her inflammatory markers, no new values are not available from today. The last LDH level was from 09/26/2021 and was 9:30 with a CRP of 16.2. Otherwise, the patient remains on treatment and the patient is c urrently on Decadron running at a dose of 6 mg IV every 24 hours. Anti- coagulation was modified. The patient is currently on Eliquis 5 mg by mouth twice a day. Doppler of the lower extremity was completed yesterday and the Doppler showed evidence of DVT in the left common femoral vein through the distal superficial femoral vein. Based on that, the patient was placed on oral Eliquis. Note that the d-dimer was elevated at 9.46 from yesterday. I took the patient off the warfarin. Her INR from yesterday was at 2.2. Hemodynamically, the patient is stable. She is on no pressors. IV fluids are running at the rate of 50 mL an hour of normal saline. The patient was covered apparently with Levaquin. The Pronestyl level was at 0.5. Cultures are negative thus far. The patient was started on enteral feeding for nutritional support. The patient is currently receiving vital high protein at the rate of 24 mL an hour. She is tolerating her enteral feeding. The overall fluid balance is +2.1 L over the past 24 hours. No other significant events otherwise for now. 09/29/2021, the patient is being seen for a follow-up. This is a 59-year-old female patient is currently intubated on a mechanical ventilator and she's been intubated since 09/25/2021 for COVID 19 related pneumonia and respiratory failure. The patient remains on a mechanical ventilator this morning. The patient is currently on propofol which is running at 45 Ash as per kilogram per minute and the patient remains on fentanyl at 0.5 mcg/kg/h. The patient is also paralyzed with Nimbex. The ventilator setting today shows an assist- control of 26, tidal volume of 350, FiO2 of 70% with a PEEP of 18. Peak airway pressure is 39. Static pressures 37. The chest x-ray from today obviously showing evidence of subcutaneous emphysema in the neck which is obviously a new finding. There is also a very tiny less than 5% pneumothorax in the left apex. There is diffuse bilateral pulmonary infiltrates consistent with COVID 19 related pneumonia. Note that the subcutaneous emphysema is also extending on her anterior chest area. ET tube is in a good location. The blood gases from today show a pH of 7.33 with a pCO2 of 50-56. In terms of her COVID 19 infection, the patient carries a d-dimer of 2.19. The LDH level is at 650 with a CRP level of 5.8. Note that the LDH level is lower compared to her earlier values. Rest of the blood work essentially negative. The patient has a white cell count of 16 with a hemoglobin of 10.5. Electrodes are still pending for now. The patient remains on empiric antibiotic coverage with IV cefepime. The patient remains on Decadron 6 mg by mouth on a daily basis and the patient is on anticoagulants utilizing Coumadin and we are doing daily PT/INR monitoring. INR from today is still pending. INR from yesterday was therapeutic at 2.2. The patient has been maintained on warfarin on outpatient basis. switched patient to Eliquis which will be easier to manage without monitoring her PT/INR on a daily basis. The cultures of been all negative. The neck fluid balance over the past 24 hours has been +2.1 L. She is on Tube feeds on vital HP @ 24 cc/hr. She is on NSS @ 50 cc/hr On today's evaluation of 09/30/2021, the patient is being seen for a follow-up. He remains intubated on mechanical ventilator. He remains sedated with propofol running at 50 mcg/kg per minute and fentanyl is running at 1 mcg/kg/h and the patient is also on the Nimbex drip at 1.5 mcg/kg per minute. The patient is adequately sedated paralyzed. The patient is hemodynamically stable. The patient is afebrile. She is producing adequate urine output in the order of 30- 40 mL an hour. On a mechanical ventilator, she is an assist-control mode with a rate of 26, tidal volume of 350, and this was reduced yesterday DrIsis 325 and FiO2 is currently at 80% with a PEEP of 18. The blood gases from today shows a pH of 7.26 with a pCO2 of 66 and pO2 of 74. Chest x-ray showing worsening in the subcutaneous emphysema. No evidence of any pneumothorax. Clinically, the subcutaneous emphysema is also worse. The peak pressure 37. Static pressures 36. The patient has no significant orotracheal secretions. ET tube is in a good location on today's chest x-ray. The patient is covered empirically with IV cefepime. All of the cultures are negative for now. Meanwhile, inflammatory markers are being monitored on a periodic basis. LDH is down to 599 and a CRP level is at 5.3. The patient remains on Decadron 6 mg IV every 24 hours. The patient is also on long-term anticoagulation and I switched her to Eliquis milligrams by mouth twice a day. Her electrolytes showed BUN of 35 with a creatinine of 0.7, resident electrodes are all within normal limits. Serum bicarb is up to 31. The white cell count today is at 15.8 hemoglobin of 10.6. The patient is tolerating enteral feeding for nutritional support and the patient is currently on vital high protein at the rate of 24 mL an hour. I updated the yesterday over the phone and had a lengthy discussion with him and explained to him the ongoing condition. In general, her condition has remained stable. The patient is not showing any significant progress over the past 24-48 hours. Furthermore, there is evidence of subcutaneous emphysema that has developed as a complication of COVID 19 related infection/pneumonia. Objective - Vital Signs Vital signs: Vital Signs Temp 98.4 F 09/30/21 04:00 Pulse 81 09/30/21 06:00 Resp 26 H 09/30/21 06:00 BP 126/60 09/30/21 04:00 Pulse Ox 93 L 09/30/21 06:00 Intake & Output 09/29/21 09/30/21 09/30/21 18:59 06:59 18:59 Intake Total 1023.870 769.046 Output Total 2040 390 Balance -1016.130 379.046 Intake: IV 270 240 0.9 NACL 270 240 Intake, IV Titration 375.870 241.046 Amount Cefepime 2 gm In Sodium 100 Chloride 0.9% 100 ml @ 25 mls/hr IVPB Q12HR [facility] Rx #:[id number] Norepinephrine 8 mg In 15.933 Sodium Chloride 0.9% 250 ml @ 0.05 MCG/KG/MIN 8. 901 mls/hr IV .Q24H [facility] Rx#:[id number] fentaNYL (PF) 2,500 mcg 36.877 66.969 In Sodium Chloride 0.9% 200 ml @ 0.5 MCG/KG/HR 4. 6 mls/hr IV .Q24H [facility] Rx# :[id number] fentaNYL (PF). 1,000 mcg 22.847 In Sodium Chloride 0.9% 80 ml @ 0.5 MCG/KG/HR 4.6 mls/hr IV .[id number] [facility] Rx#:[id number] propofoL 1,000 mg In 216.146 158.144 Empty Bag 1 bag @ Titrate IV .Q0M [facility] Rx#: [id number] Tube Feeding 288 288 Other 90 Output: Urine 2040 390 Other: Voiding Method Indwelling Catheter Indwelling Catheter ABP, PAP, CO, CI - Last Documented Arterial Blood Pressure 160/57 - Exam No acute distress, sedated and paralyzed, with an orally placed endotracheal tube and nasogastric tube. The patient has evidence of subcutaneous emphysema in the neck and anterior chest area and this can be easily palpated on today's evaluation. Head exam was generally normal. There was no scleral icterus or corneal arcus. Mucous membranes were moist. Neck was supple and without jugular venous distension, thyromegaly, or carotid bruits. Carotids were easily palpable bilaterally. There was no adenopathy Lungs were clear to auscultation and percussion, and with normal diaphragmatic excursion. No wheezes or rales were noted. Cardiac exam revealed the PMI to be normally situated and sized. The rhythm was regular and no extrasystoles were noted during several minutes of auscultation. The first and second heart sounds were normal and physiologic splitting of the second heart sound was noted. There were no murmurs, rubs, clicks, or gallops. Abdominal exam revealed normal bowel sounds. The abdomen was soft, non-tender, and without masses, organomegaly, or appreciable enlargement of the abdominal aorta. Examination of the extremities revealed easily palpable radial, femoral and pedal pulses. There was no cyanosis, clubbing or edema. Examination of the skin revealed no evidence of significant rashes, suspicious appearing nevi or other concerning lesions. Neurologic examination cannot be assessed as the patient is currently sedated and paralyzed. - Labs CBC & Chem 7: 09/30/21 04:00 09/30/21 04:00 Labs: Abnormal Lab Results - Last 24 Hours (Table) 09/29/21 09/30/21 09/30/21 Range/Units 04:48 04:00 04:00 WBC 15.8 H (3.8-10.6) k/uL Hgb 10.6 L (11.4-16.0) gm/dL MCHC 30.8 L (31.0-37.0) g/dL Neutrophils # 12.8 H (1.3-7.7) k/uL Monocytes # 1.1 H (0-1.0) k/uL D-Dimer (<0.60) mg/L FEU ABG pH (7.35-7.45) ABG pCO2 (35-45) mmHg ABG pO2 (83-108) mmHg ABG HCO3 (21-25) mmol/L ABG Total CO2 (19-24) mmol/L Chloride 111 H (98-107) mmol/L Carbon Dioxide 31 H (22-30) mmol/L BUN 35 H (7-17) mg/dL Glucose 126 H (74-99) mg/dL Calcium 8.0 L (8.4-10.2) mg/dL C-Reactive Protein 5.3 H (<1.0) mg/dL Procalcitonin 0.18 H (0.02-0.09) ng/mL 09/30/21 09/30/21 Range/Units 04:00 05:40 WBC (3.8-10.6) k/uL Hgb (11.4-16.0) gm/dL MCHC (31.0-37.0) g/dL Neutrophils # (1.3-7.7) k/uL Monocytes # (0-1.0) k/uL D-Dimer 2.30 H (<0.60) mg/L FEU ABG pH 7.27 L (7.35-7.45) ABG pCO2 66 H (35-45) mmHg ABG pO2 75 L (83-108) mmHg ABG HCO3 30 H (21-25) mmol/L ABG Total CO2 32 H (19-24) mmol/L Chloride (98-107) mmol/L Carbon Dioxide (22-30) mmol/L BUN (7-17) mg/dL Glucose (74-99) mg/dL Calcium (8.4-10.2) mg/dL C-Reactive Protein (<1.0) mg/dL Procalcitonin (0.02-0.09) ng/mL Microbiology - Last 24 Hours (Table) 09/23/21 17:40 Blood Culture - Final Blood No Growth after 144 hours 09/23/21 17:53 Blood Culture - Final Blood No Growth after 144 hours Assessment and Plan Plan: 1 Acute hypoxemic respiratory failure secondary to coronavirus associated pneumonia, status post intubation, and mechanical ventilation on 09/25/2021.No evidence of pulmonary embolism on CT angiogram. The patient continues to have diffuse bilateral pulmonary infiltrates consistent with COVID 19 related pneumonia. The patient is currently on Decadron 6 mg by mouth on a daily basis. The patient is also on long-term anticoagulation with warfarin and INR is therapeutic for now. Anti-coagulation was given to the patient because of an underlying hypercoagulable state. The less, the Doppler of the lower extremity showed a DVT in the left common femoral vein and the patient was started on Eliquis 5 mg by mouth twice a day and warfarin was discontinued. For now, the patient has developed a tiny left apical pneumothorax in addition subcutaneous emphysema. The peak and static pressures are 37 and 36 respectively. Tidal volume is 325 and having done that, the static pressure dropped down to 35. We'll make some adjustments on the FiO2 a 80%. The patient has developed a tiny left apical pneumothorax in addition to subcutaneous emphysema. There is interval worsening in the subq emphysema clinically and on the CXR. 2 acute COVID 19 related pneumonia 3 subcutaneous emphysema involving the neck and the chest in addition to a tiny left apical pneumothorax. 4 acute left lower extremity femoral DVT currently on Eliquis. The patient is known to have a Primary hypercoagulable state in the form of Leiden factor deficiency/factor V deficiency. The patient has been maintained on warfarin on outpatient basis. 5 Prior history of DVT. 6 History of fibromyalgia. 7 History of arthritis. 8 History of degenerative disc disease. 9 Mild transaminitis secondary to coronavirus infection. Plan Continue ventilator support for now. Keep the ventilator settings are unchanged. Continue Decadron Continue anticoagulation with Eliquis 5 mg by mouth twice a day Repeat inflammatory markers show improvement Cover The patient with IV cefepime 2 g every 12 hours Lasix 40 mg IVP daily No pressors enteral feeding for nutritional support I'm not sure why the patient was on methotrexate. Methotrexate will be kept on hold for now. I'm assuming the patient had a component of rheumatoid arthritis. ' Updated the family No major changes for today We'll continue to follow make further recommendations based on her progress. This is a critically care evaluation was done and more than 30 minutes. Time with Patient: Greater than 30
[2021-09-30] MEDS ORDERED: FUROSEMIDE 10 MG/ML 4 ML VIAL IV ONE (08:00)
[2021-09-30] MEDS: PANTOPRAZOLE 40 MG/10 ML VIAL IV SCH (08:17)
[2021-09-30] MEDS: CEFEPIME 2 GM in SODIUM CHLORIDE 0.9% 100 ML IVPB SCH ×2 (08:18→21:00)
[2021-09-30] MEDS: CHLORHEXIDINE GLUCONATE 15 ML CUP MUCOUS MEM SCH ×2 (08:18→21:00)
[2021-09-30] MEDS: dexAMETHasone 2 MG TAB PO SCH (08:18)
[2021-09-30] MEDS: ASCORBIC ACID 500 MG TAB PO SCH ×2 (08:18→21:00)
[2021-09-30] MEDS: APIXABAN 5 MG TAB PO SCH ×2 (08:18→21:00)
[2021-09-30] MEDS: ARTIFICIAL TEARS-HYPROMELLOSE DROPS 15 ML BTL BOTH EYES SCH ×4 (08:18→21:01)
[2021-09-30] MEDS: ZINC SULFATE 220 MG CAP PO SCH (08:18)
--- NOTE | 2021-09-30 08:29 | P.PN ---
Subjective Progress Note Date: 09/29/21 This is a 61-year-old female who was recently admitted with acute COVID-19 pneumonia with acute COVID-19 bilateral interstitial pneumonia and also with transaminitis and being closely monitored. Patient remains in the ICU and currently intubated and sedated with an FiO2 of 70% and PEEP is 18. 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 Patient did have a venous Doppler study done recently which showed left leg DVT and patient is maintained on Eliquis will continue. Patient also continues on empiric antibiotics and awaiting for sputum culture finalized. Patient was started on IV cefepime and will continue. Patient is also continued on oral dexamethasone along with vitamin and zinc supplements and will continue. Patient with some mild volume overload and given a dose of IV Lasix push today. 09/29/2021 Patient is seen and evaluated this morning continues to be closely monitored in the ICU and continues to be on mechanical ventilation and sedated. FiO2 was increased at 80% with a PEEP of 18 and oxygen saturations between 87-91%. Patient developing subcutaneous emphysema in the neck and chest wall area and chest x-ray today shows bilateral multifocal and confluent opacification is redemonstrated consistent with COVID-19 infection with a new small left apical pneumothorax estimated under 5% with new pneumomediastinum and recurrent overlying subcutaneous emphysema noted. Patient is white blood count mildly elevated at 16.1 and is continued on oral dexamethasone along with oral eliquis for anticoagulation. Patient continues to be on IV cefepime and blood and sputum cultures are negative thus far. Review of systems: Unable to obtain as patient is mechanically intubated and sedated Labs: WBC is 16.1, hemoglobin is 10.5, platelets are 268, d-dimer is 2.19, sodium is 144, potassium is 4.0, BUN is 27, creatinine 0.68, calcium is 7.9, LDH is 650, CRP is 5.8 Active Medications Apixaban (Apixaban 5 Mg Tab) 5 mg PO BID [facility]; Protocol Last Admin: 09/29/21 07:48 Dose: 5 mg Documented by: Artificial Tears (Artificial Tears-Hypromellose Drops 15 Ml Btl) 2 drops BOTH EYES QID [facility] Last Admin: 09/29/21 13:20 Dose: 2 drops Documented by: Ascorbic Acid (Ascorbic Acid 500 Mg Tab) 500 mg PO BID [facility] Last Admin: 09/29/21 07:48 Dose: 500 mg Documented by: Chlorhexidine Gluconate (Chlorhexidine Gluconate 15 Ml Cup) 15 ml MUCOUS MEM BID [facility] Last Admin: 09/29/21 07:48 Dose: 15 ml Documented by: Dexamethasone (Dexamethasone 2 Mg Tab) 6 mg PO DAILY [facility] Last Admin: 09/29/21 07:48 Dose: 6 mg Documented by: Ergocalciferol (Ergocalciferol 1,250 Mcg (50,000 Iu) Capsule) 1,250 mcg PO MORRIS [facility] Last Admin: 09/26/21 09:15 Dose: 1,250 mcg Documented by: Propofol 1,000 mg/ IV Solution 100 mls @ 0 mls/hr IV .Q0M [facility]; Protocol Last Admin: 09/29/21 13:19 Dose: 45 mcg/kg/min, 24.84 mls/hr Documented by: Cisatracurium Besylate 200 mg/ (Sodium Chloride) 200 mls @ 5.16 mls/hr IV .Q24H [facility]; Protocol Last Titration: 09/29/21 06:55 Dose: Infused Documented by: Cefepime HCl 2 gm/ Sodium (Chloride) 100 mls @ 25 mls/hr IVPB Q12HR [facility] Last Admin: 09/29/21 07:49 Dose: 25 mls/hr Documented by: Sodium Chloride (Saline 0.9%) 1,000 mls @ 20 mls/hr IV .Q24H [facility] Last Admin: 09/29/21 05:00 Dose: 50 mls/hr Documented by: Fentanyl Citrate 2,500 mcg/ (Sodium Chloride) 250 mls @ 4.6 mls/hr IV .Q24H [facility]; Protocol Last Titration: 09/29/21 13:19 Dose: 0.75 mcg/kg/hr, 6.9 mls/hr Documented by: Miscellaneous Information (Pneumonia Protocol Utilized 1 Each Misc) 1 each PO ONCE PRN PRN Reason: Per Protocol Naloxone HCl (Naloxone 0.4 Mg/Ml 1 Ml Vial) 0.2 mg IV Q2M PRN PRN Reason: Opioid Reversal Pantoprazole Sodium (Pantoprazole 40 Mg/10 Ml Vial) 40 mg IV DAILY [facility] Last Admin: 09/29/21 07:48 Dose: 40 mg Documented by: Zinc Sulfate (Zinc Sulfate 220 Mg Cap) 220 mg PO DAILY [facility] Last Admin: 09/29/21 07:48 Dose: 220 mg Documented by: Physical Exam: Gen: This is a this is a 61-year-old female currently sedated and intubated. Temp is 98.9F, pulse is 96, respirations are 26, arterial blood pressure is 106/54, oxygen saturation is 87% on 80% mechanical ventilation with a PEEP of 18 HEENT: Head is atraumatic, normocephalic. Pupils equal, round. Sclerae is anicteric. NECK: Supple. No JVD. No lymphadenopathy. No thyromegaly. LUNGS: Diminished breath sounds bilaterally with coarse rhonchi and crackles noted. No intercostal retractions. HEART: S1, S2 are muffled ABDOMEN: Soft. Bowel sounds are present. No masses. No tenderness. EXTREMITIES: No pedal edema. No calf tenderness. Bilateral upper extremity edema noted NEUROLOGICAL: Patient is currently intubated and sedated Assessment: Acute COVID-19 infection with acute COVID-19 bilateral interstitial pneumonia with hypoxic hypercarbic respiratory failure Subcutaneous emphysema of the neck and chest with a left apical pneumothorax less than 5% Acute left leg deep vein thrombosis Primary hypercoagulable state and factor V week deficiency Mild transaminitis, possibly secondary to COVID-19 History of DVT History of degenerative joint disease History of fibromyalgia Acute respiratory acidosis Increased white blood count anemia, unknown etiology Elevated inflammatory markers of COVID-19 Obesity with a body mass index of 36.4 History of pneumonia History of cholecystectomy Full code Plan: Recommend to continue with current medications and follow along closely with multiple medical consultations. Prognosis remains guarded with multiple complex medical issues noted. Patient continues on mechanical ventilation with an FiO2 of 80% and PEEP is 18. Recommend continue with current medications and patient has been maintained on IV cefepime and sputum cultures and Blood cultures thus far remain negative. Recommend patient to continue on Eliquis and monitor closely for any signs of bleeding. Chest x-ray done today shows new pneumomediastinum with subcutaneous emphysema and a new small left apical pneumothorax estimated under 5%. Recommend repeat labs and chest x-ray in the morning. Again due to multiple complex medical issues prognosis is quite guarded. Objective - Vital Signs Vital signs: Vital Signs Temp 98.8 F 09/29/21 08:00 Pulse 85 09/29/21 09:00 Resp 26 H 09/29/21 09:00 BP 126/60 09/29/21 09:00 Pulse Ox 86 L 09/29/21 09:00 Intake & Output 09/28/21 09/29/21 09/29/21 18:59 06:59 18:59 Intake Total 6234.124 4706.584 330.993 Output Total 2470 595 360 Balance -1202.768 911.584 -29.007 Weight 92 kg Intake: IV 600 550 90 0.9 NACL 600 550 90 Intake, IV Titration 319.232 602.584 138.993 Amount Cefepime 2 gm In Sodium 100 100 Chloride 0.9% 100 ml @ 25 mls/hr IVPB Q12HR [facility] Rx #:[id number] Cisatracurium 200 mg In 200.000 Sodium Chloride 0.9% 180 ml @ 1 MCG/KG/MIN 5.16 mls/hr IV .Q24H [facility] Rx#: [id number] fentaNYL (PF). 1,000 mcg 22.847 In Sodium Chloride 0.9% 80 ml @ 0.5 MCG/KG/HR 4.6 mls/hr IV .[id number] [facility] Rx#:[id number] propofoL 1,000 mg In 319.232 302.584 16.146 Empty Bag 1 bag @ Titrate IV .Q0M [facility] Rx#: [id number] Tube Feeding 288 264 72 Other 60 90 30 Output: Urine 2470 595 360 Other: Voiding Method Indwelling Catheter Indwelling Catheter Indwelling Catheter ABP, PAP, CO, CI - Last Documented Arterial Blood Pressure 155/59 - Labs CBC & Chem 7: 09/30/21 04:00 09/30/21 04:00 Labs: Abnormal Lab Results - Last 24 Hours (Table) 09/29/21 09/29/21 09/29/21 Range/Units 04:40 04:48 04:48 WBC 16.1 H (3.8-10.6) k/uL Hgb 10.5 L (11.4-16.0) gm/dL Hct 33.7 L (34.0-46.0) % Neutrophils # 13.5 H (1.3-7.7) k/uL D-Dimer (<0.60) mg/L FEU ABG pH 7.33 L (7.35-7.45) ABG pCO2 52 H (35-45) mmHg ABG pO2 56 L* (83-108) mmHg ABG HCO3 28 H (21-25) mmol/L ABG Total CO2 29 H (19-24) mmol/L ABG O2 Saturation 89.8 L (94-97) % Chloride 114 H (98-107) mmol/L BUN 27 H (7-17) mg/dL Glucose 115 H (74-99) mg/dL Calcium 7.9 L (8.4-10.2) mg/dL Lactate Dehydrogenase 650 H (313-618) U/L C-Reactive Protein 5.8 H (<1.0) mg/dL 09/29/21 Range/Units 04:48 WBC (3.8-10.6) k/uL Hgb (11.4-16.0) gm/dL Hct (34.0-46.0) % Neutrophils # (1.3-7.7) k/uL D-Dimer 2.19 H (<0.60) mg/L FEU ABG pH (7.35-7.45) ABG pCO2 (35-45) mmHg ABG pO2 (83-108) mmHg ABG HCO3 (21-25) mmol/L ABG Total CO2 (19-24) mmol/L ABG O2 Saturation (94-97) % Chloride (98-107) mmol/L BUN (7-17) mg/dL Glucose (74-99) mg/dL Calcium (8.4-10.2) mg/dL Lactate Dehydrogenase (313-618) U/L C-Reactive Protein (<1.0) mg/dL Microbiology - Last 24 Hours (Table) 09/23/21 17:53 Blood Culture - Preliminary Blood No Growth after 120 hours 09/23/21 17:40 Blood Culture - Preliminary Blood No Growth after 120 hours 09/25/21 20:54 Gram Stain - Final Sputum Sputum Culture - Final
--- NOTE | 2021-09-30 08:39 | XR ---
EXAMINATION TYPE: XR chest 1V portable DATE OF EXAM: 09/30/2021 Comparison: 09/29/2021 Clinical History: 61-year-old female Tube placement Findings: ET tube satisfactory. NG tube courses below the diaphragm. Left subclavian CVC tip at the mid to lowe r SVC. Extensive bilateral subcutaneous emphysema persists. Heart upper limits of normal in size. Dif fuse interstitial changes persist. On the patchy densities in the lower lungs show some improvement n ow. X-rays 7 mm left apical pneumothorax is slightly smaller compared to 1.0 cm, previously. Impression: 1. A trace left apical pneumothorax is minimally smaller 7 mm versus 1 cm, previously. 2. Extensive bilateral subcutaneous emphysema persists. 3. Diffuse interstitial changes and patchy bibasilar opacities persist. Slightly improving aeration i n the lower lungs.
[2021-09-30] MEDS ORDERED: FUROSEMIDE 10 MG/ML 4 ML VIAL IV SCH (09:00)
[2021-09-30] MEDS: FLUCONAZOLE IN NACL,ISO-OSM 100 MG in SALINE 1 50ML.BAG IVPB SCH (11:59)
[2021-09-30] MEDS: CISATRACURIUM 200 MG in SODIUM CHLORIDE 0.9% 180 ML IV SCH (16:47)
[2021-09-30] MEDS: fentaNYL (PF) 2,500 MCG in SODIUM CHLORIDE 0.9% 200 ML IV SCH (16:48)
[2021-09-30] MEDS: NOREPINEPHRINE 8 MG in SODIUM CHLORIDE 0.9% 250 ML IV SCH (19:13)
[2021-10-01] MEDS: fentaNYL (PF) 2,500 MCG in SODIUM CHLORIDE 0.9% 200 ML IV SCH ×2 (02:20→18:40)
[2021-10-01] MEDS: SODIUM CHLORIDE 0.9% 1,000 ML IV SCH (03:38)
[2021-10-01 05:15] LABS: ABG Base Excess 7.9 mmol/L; ABG HCO3 34 mmol/L (21-25); ABG Oxygen Saturation 92.3 % (94-97); ABG PCO2 67 mmHg (35-45); ABG PH 7.32 (7.35-7.45); ABG PO2 64 mmHg (83-108); ABG TCO2 36 mmol/L (19-24); Allen Test Performed? Yes
[2021-10-01 08:25] LABS: Basophils % (A) 0 %; Eosinophils # (A) 0.1 k/uL (0-0.7); Eosinophils % (A) 1 %; HGB 10.6 gm/dL (11.4-16.0); Hypochromasia Marked; Lymphocytes # (A) 1.9 k/uL (1.0-4.8); Lymphocytes % (A) 12 %; MCH 26.8 pg (25.0-35.0); MCHC 30.2 g/dL (31.0-37.0); MCV 88.9 fL (80.0-100.0); Mean Platelet Volume 8.6; Monocytes % (A) 7 %; Neutrophils # (A) 12.1 k/uL (1.3-7.7); Neutrophils % (A) 79 %; Platelet Count 286 k/uL (150-450); Poikilocytosis Slight; RBC 3.93 m/uL (3.80-5.40); RDW 15.2 % (11.5-15.5); WBC 15.2 k/uL (3.8-10.6)
--- NOTE | 2021-10-01 08:36 | XR ---
EXAMINATION TYPE: XR chest 1V portable DATE OF EXAM: 10/01/2021 COMPARISON: 09/30/2021 INDICATION: Tube placement TECHNIQUE: Single frontal view of the chest is obtained. FINDINGS: The heart size is normal. The pulmonary vasculature is normal. Diffuse patchy infiltrate is present. The lung bases. Extensive subcutaneous emphysema is present bilaterally. Endotracheal tube tip is above the jahaira. Nasogastric tube transverses the thorax. Left central veno us catheter has its tip in the superior vena cava no pneumothorax is evident. IMPRESSION: 1. Stable extensive subcutaneous emphysema. 2. No pneumothorax. 3. Patchy bilateral lung infiltrates remain present greater than one bases.
--- NOTE | 2021-10-01 08:36 | P.PN ---
Subjective Progress Note Date: 09/30/21 This is a 61-year-old female who was recently admitted with acute COVID-19 pneumonia with acute COVID-19 bilateral interstitial pneumonia and also with transaminitis and being closely monitored. Patient remains in the ICU and currently intubated and sedated with an FiO2 of 70% and PEEP is 18. 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 Patient did have a venous Doppler study done recently which showed left leg DVT and patient is maintained on Eliquis will continue. Patient also continues on empiric antibiotics and awaiting for sputum culture finalized. Patient was started on IV cefepime and will continue. Patient is also continued on oral dexamethasone along with vitamin and zinc supplements and will continue. Patient with some mild volume overload and given a dose of IV Lasix push today. 09/29/2021 Patient is seen and evaluated this morning continues to be closely monitored in the ICU and continues to be on mechanical ventilation and sedated. FiO2 was increased at 80% with a PEEP of 18 and oxygen saturations between 87-91%. Patient developing subcutaneous emphysema in the neck and chest wall area and chest x-ray today shows bilateral multifocal and confluent opacification is redemonstrated consistent with COVID-19 infection with a new small left apical pneumothorax estimated under 5% with new pneumomediastinum and recurrent overlying subcutaneous emphysema noted. Patient is white blood count mildly elevated at 16.1 and is continued on oral dexamethasone along with oral eliquis for anticoagulation. Patient continues to be on IV cefepime and blood and sputum cultures are negative thus far. 09/30/2021 Patient is seen today continues to be closely monitored in the ICU with multiple medical consultations following. Patient continues to be mechanically intubated and sedated with continued subcutaneous emphysema noted. Chest xray shows a trace left apical pneumothorax that is minimally smaller 7mm versus 1cm previously, extensive bilateral subcutaneous emphysema persists and diffuse interstitial changes and bilateral patchy opacities persist with slight improvement in aeration in the lower lungs. Per nursing staff corbin was clogged with copious amounts of white discharge and will add diflucan and corbin catheter has been changed and draining adequately. Patient continues on IV cefepime. Patient tolerating tube feeds and will continue. Review of systems: Unable to obtain as patient is mechanically intubated and sedated Labs: WBC is 15.8, hemoglobin is 10.6, platelets are 261, d-dimer is 2.30, sodium is 143, potassium 4.1, BUN 35, creatinine 0.72, calcium 8.0, LDH 599, CRP 5.3 Active Medications Apixaban (Apixaban 5 Mg Tab) 5 mg PO BID [facility]; Protocol Last Admin: 09/30/21 08:18 Dose: 5 mg Documented by: Artificial Tears (Artificial Tears-Hypromellose Drops 15 Ml Btl) 2 drops BOTH EYES QID [facility] Last Admin: 09/30/21 08:18 Dose: 2 drops Documented by: Ascorbic Acid (Ascorbic Acid 500 Mg Tab) 500 mg PO BID [facility] Last Admin: 09/30/21 08:18 Dose: 500 mg Documented by: Chlorhexidine Gluconate (Chlorhexidine Gluconate 15 Ml Cup) 15 ml MUCOUS MEM BID [facility] Last Admin: 09/30/21 08:18 Dose: 15 ml Documented by: Dexamethasone (Dexamethasone 2 Mg Tab) 6 mg PO DAILY [facility] Last Admin: 09/30/21 08:18 Dose: 6 mg Documented by: Ergocalciferol (Ergocalciferol 1,250 Mcg (50,000 Iu) Capsule) 1,250 mcg PO MORRIS [facility] Last Admin: 09/26/21 09:15 Dose: 1,250 mcg Documented by: Propofol 1,000 mg/ IV Solution 100 mls @ 0 mls/hr IV .Q0M [facility]; Protocol Last Admin: 09/30/21 15:00 Dose: 50 mcg/kg/min, 27.6 mls/hr Documented by: Cisatracurium Besylate 200 mg/ (Sodium Chloride) 200 mls @ 5.16 mls/hr IV .Q24H [facility]; Protocol Last Admin: 09/29/21 19:37 Dose: Not Given Documented by: Cefepime HCl 2 gm/ Sodium (Chloride) 100 mls @ 25 mls/hr IVPB Q12HR [facility] Last Admin: 09/30/21 08:18 Dose: 25 mls/hr Documented by: Sodium Chloride (Saline 0.9%) 1,000 mls @ 20 mls/hr IV .Q24H [facility] Last Admin: 09/30/21 02:41 Dose: 20 mls/hr Documented by: Fentanyl Citrate 2,500 mcg/ (Sodium Chloride) 250 mls @ 4.6 mls/hr IV .Q24H [facility]; Protocol Last Titration: 09/30/21 06:11 Dose: 1 mcg/kg/hr, 9.2 mls/hr Documented by: Norepinephrine Bitartrate 8 mg (/ Sodium Chloride) 258 mls @ 8.901 mls/hr IV .Q24H [facility]; Protocol Last Titration: 09/29/21 23:15 Dose: 0 mcg/kg/min, 0 mls/hr Documented by: Fluconazole/Sodium Chloride (100 mg/ IV Solution) 50 mls @ 50 mls/hr IVPB DAILY@1200 [facility] Last Admin: 09/30/21 11:59 Dose: 50 mls/hr Documented by: Miscellaneous Information (Pneumonia Protocol Utilized 1 Each Misc) 1 each PO ONCE PRN PRN Reason: Per Protocol Naloxone HCl (Naloxone 0.4 Mg/Ml 1 Ml Vial) 0.2 mg IV Q2M PRN PRN Reason: Opioid Reversal Pantoprazole Sodium (Pantoprazole 40 Mg/10 Ml Vial) 40 mg IV DAILY [facility] Last Admin: 09/30/21 08:17 Dose: 40 mg Documented by: Zinc Sulfate (Zinc Sulfate 220 Mg Cap) 220 mg PO DAILY [facility] Last Admin: 09/30/21 08:18 Dose: 220 mg Documented by: Physical Exam: Gen: This is a this is a 61-year-old female currently sedated and intubated. Temp is 98.7F, pulse is 82, respirations are 26, arterial blood pressure is 162/55, oxygen saturation is 91% on 80% mechanical ventilation with a PEEP of 18 HEENT: Head is atraumatic, normocephalic. Pupils equal, round. Sclerae is anicteric. NECK: Supple. No JVD. No lymphadenopathy. No thyromegaly. subcutaneous emphysema noted in the neck and chest wall area bilateral. LUNGS: Diminished breath sounds bilaterally with coarse rhonchi and crackles n oted. No intercostal retractions. HEART: S1, S2 are muffled ABDOMEN: Soft. Bowel sounds are present. No masses. No tenderness. EXTREMITIES: No pedal edema. No calf tenderness. Bilateral upper extremity edema noted NEUROLOGICAL: Patient is currently intubated and sedated Assessment: Acute COVID-19 infection with acute COVID-19 bilateral interstitial pneumonia with hypoxic hypercarbic respiratory failure Subcutaneous emphysema of the neck and chest with a left apical pneumothorax less than 5% Acute left leg deep vein thrombosis Primary hypercoagulable state and factor V week deficiency Possible candidiasis secondary to prolonged indwelling Corbin catheter Mild transaminitis, possibly secondary to COVID-19 History of DVT History of degenerative joint disease History of fibromyalgia Acute respiratory acidosis Increased white blood count anemia, unknown etiology Elevated inflammatory markers of COVID-19 Obesity with a body mass index of 36.4 History of pneumonia History of cholecystectomy Full code Plan: Recommend to continue with current medications and follow along closely with multiple medical consultations. Prognosis remains guarded with multiple complex medical issues noted. Patient continues on mechanical ventilation with an FiO2 of 80% and PEEP is 18. Recommend continue with current medications and patient has been maintained on IV cefepime and sputum cultures and Blood cultures thus far remain negative. Recommend patient to continue on Eliquis and monitor close ly for any signs of bleeding. Chest x-ray reviewed as mentioned above. Per nursing staff patient was having some copious amounts of white discharge and issues with the Corbin catheter and clogged catheter and Corbin catheter was exchanged and replaced and will start patient on Diflucan. Recommend repeat labs and chest x-ray in the morning. Again due to multiple complex medical issues prognosis is quite guarded. Objective - Vital Signs Vital signs: Vital Signs Temp 98.4 F 09/30/21 04:00 Pulse 81 09/30/21 06:00 Resp 26 H 09/30/21 06:00 BP 126/60 09/30/21 04:00 Pulse Ox 93 L 09/30/21 06:00 Intake & Output 09/29/21 09/30/21 09/30/21 18:59 06:59 18:59 Intake Total 1023.870 769.046 174 Output Total 2040 390 40 Balance -1016.130 379.046 134 Intake: IV 270 240 20 0.9 NACL 270 240 20 Intake, IV Titration 375.870 241.046 100 Amount Cefepime 2 gm In Sodium 100 100 Chloride 0.9% 100 ml @ 25 mls/hr IVPB Q12HR [facility] Rx #:[id number] Norepinephrine 8 mg In 15.933 Sodium Chloride 0.9% 250 ml @ 0.05 MCG/KG/MIN 8. 901 mls/hr IV .Q24H [facility] Rx#:[id number] fentaNYL (PF) 2,500 mcg 36.877 66.969 In Sodium Chloride 0.9% 200 ml @ 0.5 MCG/KG/HR 4. 6 mls/hr IV .Q24H [facility] Rx# :[id number] fentaNYL (PF). 1,000 mcg 22.847 In Sodium Chloride 0.9% 80 ml @ 0.5 MCG/KG/HR 4.6 mls/hr IV .[id number] [facility] Rx#:[id number] propofoL 1,000 mg In 216.146 158.144 Empty Bag 1 bag @ Titrate IV .Q0M [facility] Rx#: [id number] Tube Feeding 288 288 24 Other 90 30 Output: Urine 2040 390 40 Other: Voiding Method Indwelling Catheter Indwelling Catheter Indwelling Catheter ABP, PAP, CO, CI - Last Documented Arterial Blood Pressure 160/57 - Labs CBC & Chem 7: 09/30/21 04:00 09/30/21 04:00 Labs: Abnormal Lab Results - Last 24 Hours (Table) 09/29/21 09/30/21 09/30/21 Range/Units 04:48 04:00 04:00 WBC 15.8 H (3.8-10.6) k/uL Hgb 10.6 L (11.4-16.0) gm/dL MCHC 30.8 L (31.0-37.0) g/dL Neutrophils # 12.8 H (1.3-7.7) k/uL Monocytes # 1.1 H (0-1.0) k/uL D-Dimer (<0.60) mg/L FEU ABG pH (7.35-7.45) ABG pCO2 (35-45) mmHg ABG pO2 (83-108) mmHg ABG HCO3 (21-25) mmol/L ABG Total CO2 (19-24) mmol/L Chloride 111 H (98-107) mmol/L Carbon Dioxide 31 H (22-30) mmol/L BUN 35 H (7-17) mg/dL Glucose 126 H (74-99) mg/dL Calcium 8.0 L (8.4-10.2) mg/dL C-Reactive Protein 5.3 H (<1.0) mg/dL Procalcitonin 0.18 H (0.02-0.09) ng/mL 09/30/21 09/30/21 Range/Units 04:00 05:40 WBC (3.8-10.6) k/uL Hgb (11.4-16.0) gm/dL MCHC (31.0-37.0) g/dL Neutrophils # (1.3-7.7) k/uL Monocytes # (0-1.0) k/uL D-Dimer 2.30 H (<0.60) mg/L FEU ABG pH 7.27 L (7.35-7.45) ABG pCO2 66 H (35-45) mmHg ABG pO2 75 L (83-108) mmHg ABG HCO3 30 H (21-25) mmol/L ABG Total CO2 32 H (19-24) mmol/L Chloride (98-107) mmol/L Carbon Dioxide (22-30) mmol/L BUN (7-17) mg/dL Glucose (74-99) mg/dL Calcium (8.4-10.2) mg/dL C-Reactive Protein (<1.0) mg/dL Procalcitonin (0.02-0.09) ng/mL Microbiology - Last 24 Hours (Table) 09/23/21 17:40 Blood Culture - Final Blood No Growth after 144 hours 09/23/21 17:53 Blood Culture - Final Blood No Growth after 144 hours
--- NOTE | 2021-10-01 08:40 | P.PN ---
Subjective Progress Note Date: 10/01/21 61-year-old female who is in the MICU with COVID-19 related pneumonia. The patient stated that she was having symptoms since September 10. The symptoms included shortness of breath, cough, fatigue, muscle aches, and generally just not feeling well. The patient is non vaccinated. She tested positive for coronavirus on September 23. The patient takes Coumadin chronically for her factor V or Leiden factor deficiency. Initially, on room air, her saturations were in the 70s, and on a nonrebreather, only got up into the mid 80s. In addition to the primary hypercoagulable state, she has a history of DVT, fibromyalgia, pneumonia, arthritis, and degenerative disc disease. She is a lifelong nonsmoker. Chest x-ray reveals diffuse bilateral infiltrates. CT angiogram was negative for pulmonary embolism, but did show diffuse infiltrates consistent with coronavirus pneumonia. Subsequently, the patient was placed on a BiPAP for respiratory support. Following that, on 09/25/2021 required intubation and mechanical ventilation. She remains on the ventilator, she is on the volume assist control mode, rate 26, tidal volume 400, FiO2 100%, and PEEP of 15. Arterial blood gases show pO2 of 72 with a pH of 7.27 and pO2 of 47. The patient's peak airway pressure is 39. The patient static pressure is 37. The chest x-ray from today is showing diffuse bilateral pulmonary infiltrates thought the lung patterson more so on the lung bases. ET tube is around 2 cm above the jahaira. The patient has a subclavian triple lumen catheter on the left. The patient is a or G-tube and good location.. The patient's getting saline at 50 mL an hour, Nimbex at 1 mcg/kg/m, propofol at 50 mcg/kg/m, and norepinephrine at 2 mcg/m. the patient has not was started on enteral feeding for nutritional support. Dietary consultation has been obtained. Meanwhile, the blood work shows normal electrolytes, sodium is at 144, BUN is at 23 with a creatinine of 0.7. The LDH level is at 930 from yesterday with a CRP level of 16.2. The patient has a d-dimer of 9.46. The patient has been maintained on long-term medical evaluation with warfarin and INR from today is at 2.2. The patient meanwhile remains on treatment and the patient is on Decadron 6 mg by mouth on a daily basis. The patient has been covered empirically with Levaquin as an I'm antibiotic coverage. Anticoagulation is with warfarin and daily PT/INR is being monitored and the warfarin has been held for now monitoring her PT/INR. Noted the patient has been taking 6 mg of warfarin on outpatient basis. The patient is also on methotrexate for rheumatoid arthritis. Note that the patient's sputum cultures still pending. Blood culture has been negative. Pro-calcitonin level at a time of admission was 0.52. On 09/28/2021, I'm seeing the patient for a follow-up. This is a 59-year-old. Patient is currently intubated on a mechanical ventilator due to COVID 19 related pneumonia with secondary hypoxic respiratory failure. The patient was intubated on 09/25/2021. At this point in time, the patient has sedated with a combination of propofol which is running at 45 mcg/kg per minute and the patient is off fentanyl. The patient is running Nimbex for paralysis as one might respiratory and per minute. The patient is quite interested mechanical ventilator and she is well sedated and paralyzed at this point in time. She is on assist-control mode of mechanical ventilation and she is currently at the rate of 26, tidal volume of 350, FiO2 is at 70% with a PEEP of 18. The blood gases from today showed a pH of 7.24 with a pCO2 of 54 and pO2 of 63. The peak airway pressure is 37. The static pressure is 35. The chest x-ray shows no jess or interval change and the patient continues to have diffuse bilateral pulmonary infiltrates which is essentially unchanged compared to yesterday. ET tube is in a good location. In terms of her inflammatory markers, no new values are not available from today. The last LDH level was from 09/26/2021 and was 9:30 with a CRP of 16.2. Otherwise, the patient remains on treatment and the patient is c urrently on Decadron running at a dose of 6 mg IV every 24 hours. Anti- coagulation was modified. The patient is currently on Eliquis 5 mg by mouth twice a day. Doppler of the lower extremity was completed yesterday and the Doppler showed evidence of DVT in the left common femoral vein through the distal superficial femoral vein. Based on that, the patient was placed on oral Eliquis. Note that the d-dimer was elevated at 9.46 from yesterday. I took the patient off the warfarin. Her INR from yesterday was at 2.2. Hemodynamically, the patient is stable. She is on no pressors. IV fluids are running at the rate of 50 mL an hour of normal saline. The patient was covered apparently with Levaquin. The Pronestyl level was at 0.5. Cultures are negative thus far. The patient was started on enteral feeding for nutritional support. The patient is currently receiving vital high protein at the rate of 24 mL an hour. She is tolerating her enteral feeding. The overall fluid balance is +2.1 L over the past 24 hours. No other significant events otherwise for now. 09/29/2021, the patient is being seen for a follow-up. This is a 59-year-old female patient is currently intubated on a mechanical ventilator and she's been intubated since 09/25/2021 for COVID 19 related pneumonia and respiratory failure. The patient remains on a mechanical ventilator this morning. The patient is currently on propofol which is running at 45 Ash as per kilogram per minute and the patient remains on fentanyl at 0.5 mcg/kg/h. The patient is also paralyzed with Nimbex. The ventilator setting today shows an assist- control of 26, tidal volume of 350, FiO2 of 70% with a PEEP of 18. Peak airway pressure is 39. Static pressures 37. The chest x-ray from today obviously showing evidence of subcutaneous emphysema in the neck which is obviously a new finding. There is also a very tiny less than 5% pneumothorax in the left apex. There is diffuse bilateral pulmonary infiltrates consistent with COVID 19 related pneumonia. Note that the subcutaneous emphysema is also extending on her anterior chest area. ET tube is in a good location. The blood gases from today show a pH of 7.33 with a pCO2 of 50-56. In terms of her COVID 19 infection, the patient carries a d-dimer of 2.19. The LDH level is at 650 with a CRP level of 5.8. Note that the LDH level is lower compared to her earlier values. Rest of the blood work essentially negative. The patient has a white cell count of 16 with a hemoglobin of 10.5. Electrodes are still pending for now. The patient remains on empiric antibiotic coverage with IV cefepime. The patient remains on Decadron 6 mg by mouth on a daily basis and the patient is on anticoagulants utilizing Coumadin and we are doing daily PT/INR monitoring. INR from today is still pending. INR from yesterday was therapeutic at 2.2. The patient has been maintained on warfarin on outpatient basis. switched patient to Eliquis which will be easier to manage without monitoring her PT/INR on a daily basis. The cultures of been all negative. The neck fluid balance over the past 24 hours has been +2.1 L. She is on Tube feeds on vital HP @ 24 cc/hr. She is on NSS @ 50 cc/hr On today's evaluation of 09/30/2021, the patient is being seen for a follow-up. He remains intubated on mechanical ventilator. He remains sedated with propofol running at 50 mcg/kg per minute and fentanyl is running at 1 mcg/kg/h and the patient is also on the Nimbex drip at 1.5 mcg/kg per minute. The patient is adequately sedated paralyzed. The patient is hemodynamically stable. The patient is afebrile. She is producing adequate urine output in the order of 30- 40 mL an hour. On a mechanical ventilator, she is an assist-control mode with a rate of 26, tidal volume of 350, and this was reduced yesterday DrIsis 325 and FiO2 is currently at 80% with a PEEP of 18. The blood gases from today shows a pH of 7.26 with a pCO2 of 66 and pO2 of 74. Chest x-ray showing worsening in the subcutaneous emphysema. No evidence of any pneumothorax. Clinically, the subcutaneous emphysema is also worse. The peak pressure 37. Static pressures 36. The patient has no significant orotracheal secretions. ET tube is in a good location on today's chest x-ray. The patient is covered empirically with IV cefepime. All of the cultures are negative for now. Meanwhile, inflammatory markers are being monitored on a periodic basis. LDH is down to 599 and a CRP level is at 5.3. The patient remains on Decadron 6 mg IV every 24 hours. The patient is also on long-term anticoagulation and I switched her to Eliquis milligrams by mouth twice a day. Her electrolytes showed BUN of 35 with a creatinine of 0.7, resident electrodes are all within normal limits. Serum bicarb is up to 31. The white cell count today is at 15.8 hemoglobin of 10.6. The patient is tolerating enteral feeding for nutritional support and the patient is currently on vital high protein at the rate of 24 mL an hour. I updated the yesterday over the phone and had a lengthy discussion with him and explained to him the ongoing condition. In general, her condition has remained stable. The patient is not showing any significant progress over the past 24-48 hours. Furthermore, there is evidence of subcutaneous emphysema that has developed as a complication of COVID 19 related infection/pneumonia. 10/01 2021, the patient continues to have extensive subcutaneous emphysema. There is worsening of subcutaneous edema clinically and on today's chest x-ray. Note that there is no evidence of any pneumothorax and ET tube remains in a good location. On today's evaluation, the patient remains sedated on propofol which is currently running at 45 mcg/kg per minute and the fentanyl is running at 1 mcg/kg/h. The patient remains sedated and paralyzed and she is on Nimbex running at 1 mcg/kg per minute. The patient remains on a mechanical ventilator. No ventilator changes were done yesterday. She remains on assist-control at the rate of 26, tidal volume of 325, PEEP is currently at 18 with an FiO2 of 80%. Peak airway pressure is still elevated at 38. No significant orotracheal secretions. The blood gases from today shows a pH of 7.32 with a pCO2 of 67 and pO2 of 64. LDH to from yesterday was 599, CRP was at 5.3, d-dimer is at 2.3. The patient remains on Decadron 6 January grams IV every 24 hours. The patient is in a negative fluid balance of 637 mL over the past 24 hours. She remains on anticoagulation with Eliquis and she is also on empiric antibiotic coverage with IV cefepime. She continues to receive enteral feeding for nutritional support. She is on vital high protein at the rate of 24 mL an hour. No significant progress in her condition. In fact, there is worsening in the subcutaneous emphysema. Otherwise, no pneumothorax, no improvement and chest x-ray findings, no improvement in the blood gas, no improvement in the airway pressures on today's evaluation. She remains sedated and paralyzed. Objective - Vital Signs Vital signs: Vital Signs Temp 98.0 F 10/01/21 08:00 Pulse 86 10/01/21 08:00 Resp 21 10/01/21 08:00 BP 109/49 10/01/21 07:00 Pulse Ox 91 L 10/01/21 08:00 Intake & Output 09/30/21 10/01/21 10/01/21 18:59 06:59 18:59 Intake Total 918 830.154 23 Output Total 1490 480 40 Balance -572 350.154 -17 Intake: IV 240 220 23 .9 3 0.9 NACL 240 220 20 Intake, IV Titration 300 346.154 Amount Cefepime 2 gm In Sodium 100 Chloride 0.9% 100 ml @ 25 mls/hr IVPB Q12HR [facility] Rx #:[id number] fentaNYL (PF) 2,500 mcg 146.154 In Sodium Chloride 0.9% 200 ml @ 0.5 MCG/KG/HR 4. 6 mls/hr IV .Q24H [facility] Rx# :[id number] propofoL 1,000 mg In 200 200 Empty Bag 1 bag @ Titrate IV .Q0M [facility] Rx#: [id number] Tube Feeding 288 264 Other 90 Output: Urine 1490 480 40 Other: Voiding Method Indwelling Catheter Indwelling Catheter ABP, PAP, CO, CI - Last Documented Arterial Blood Pressure 157/61 - Exam No acute distress, sedated and paralyzed, with an orally placed endotracheal tube and nasogastric tube. The patient has evidence of subcutaneous emphysema in the neck and anterior chest area and this can be easily palpated on today's evaluation. Head exam was generally normal. There was no scleral icterus or corneal arcus. Mucous membranes were moist. Neck was supple and without jugular venous distension, thyromegaly, or carotid bruits. Carotids were easily palpable bilaterally. There was no adenopathy Lungs were clear to auscultation and percussion, and with normal diaphragmatic excursion. No wheezes or rales were noted. Cardiac exam revealed the PMI to be normally situated and sized. The rhythm was regular and no extrasystoles were noted during several minutes of auscultation. The first and second heart sounds were normal and physiologic splitting of the second heart sound was noted. There were no murmurs, rubs, clicks, or gallops. Abdominal exam revealed normal bowel sounds. The abdomen was soft, non-tender, and without masses, organomegaly, or appreciable enlargement of the abdominal aorta. Examination of the extremities revealed easily palpable radial, femoral and pedal pulses. There was no cyanosis, clubbing or edema. Examination of the skin revealed no evidence of significant rashes, suspicious appearing nevi or other concerning lesions. Neurologic examination cannot be assessed as the patient is currently sedated and paralyzed. - Labs CBC & Chem 7: 10/01/21 08:13 09/30/21 04:00 Labs: Abnormal Lab Results - Last 24 Hours (Table) 10/01/21 10/01/21 Range/Units 05:10 08:13 WBC 15.2 H (3.8-10.6) k/uL Hgb 10.6 L (11.4-16.0) gm/dL MCHC 30.2 L (31.0-37.0) g/dL Neutrophils # 12.1 H (1.3-7.7) k/uL ABG pH 7.32 L (7.35-7.45) ABG pCO2 67 H (35-45) mmHg ABG pO2 64 L (83-108) mmHg ABG HCO3 34 H (21-25) mmol/L ABG Total CO2 36 H (19-24) mmol/L ABG O2 Saturation 92.3 L (94-97) % Assessment and Plan Plan: 1 Acute hypoxemic respiratory failure/ARDS secondary to coronavirus associated pneumonia, status post intubation, and mechanical ventilation on 09/25/2021.No evidence of pulmonary embolism on CT angiogram. The patient continues to have diffuse bilateral pulmonary infiltrates consistent with COVID 19 related pneumonia. The patient is currently on Decadron 6 mg by mouth on a daily basis. The patient is also on long-term anticoagulation with warfarin and INR is therapeutic for now. Anti-coagulation was given to the patient because of an underlying hypercoagulable state. The less, the Doppler of the lower extremity showed a DVT in the left common femoral vein and the patient was started on Eliquis 5 mg by mouth twice a day and warfarin was discontinued. For now, the patient has developed a tiny left apical pneumothorax in addition subcutaneous emphysema. The peak and static pressures are 38-41 , there is bilateral subcutaneous emphysema with interval worsening. There is no evidence of any pneumothorax at this point in time. No much progress in her condition. She remains on Decadron. Obviously she is in ARDS. Inflammatory markers regarding her covid 19 infection have improved. 2 acute COVID 19 related pneumonia 3 subcutaneous emphysema involving the neck and the chest in addition to a tiny left apical pneumothorax. 4 acute left lower extremity femoral DVT currently on Eliquis. The patient is known to have a Primary hypercoagulable state in the form of Leiden factor deficiency/factor V deficiency. The patient has been maintained on warfarin on outpatient basis. 5 Prior history of DVT. 6 History of fibromyalgia. 7 History of arthritis. 8 History of degenerative disc disease. 9 Mild transaminitis secondary to coronavirus infection. Plan Continue ventilator support for now. Keep the ventilator settings are unchanged. Insert angiocaths to deflate the subcutaneous emphysema Continue Decadron Continue anticoagulation with Eliquis 5 mg by mouth twice a day Repeat inflammatory markers show improvement IV cefepime 2 g every 12 hours No pressors enteral feeding for nutritional support No major changes for today We'll continue to follow make further recommendations based on her progress. This is a critically care evaluation was done and more than 30 minutes. Time with Patient: Greater than 30
[2021-10-01] MEDS: ARTIFICIAL TEARS-HYPROMELLOSE DROPS 15 ML BTL BOTH EYES SCH ×4 (08:42→20:31)
[2021-10-01] MEDS: dexAMETHasone 2 MG TAB PO SCH (08:42)
[2021-10-01] MEDS: ASCORBIC ACID 500 MG TAB PO SCH ×2 (08:42→20:30)
[2021-10-01] MEDS: APIXABAN 5 MG TAB PO SCH ×2 (08:42→20:29)
[2021-10-01] MEDS: PANTOPRAZOLE 40 MG/10 ML VIAL IV SCH (08:42)
[2021-10-01] MEDS: CEFEPIME 2 GM in SODIUM CHLORIDE 0.9% 100 ML IVPB SCH ×2 (08:42→20:30)
[2021-10-01] MEDS: ZINC SULFATE 220 MG CAP PO SCH (08:43)
[2021-10-01] MEDS: CHLORHEXIDINE GLUCONATE 15 ML CUP MUCOUS MEM SCH ×2 (08:43→20:31)
[2021-10-01 08:46] LABS: African American GFR (CKD) >90 (>60 ml/min/1.73 sqM); Anion Gap 0 mmol/L; Blood Urea Nitrogen 43 mg/dL (7-17); C Reactive Protein 4.2 mg/dL (<1.0); Calcium 8.4 mg/dL (8.4-10.2); Carbon Dioxide 35 mmol/L (22-30); Chloride 109 mmol/L (98-107); Glucose 138 mg/dL (74-99); LDH 531 U/L (313-618); Non-African American GFR(CKD) >90 (>60 ml/min/1.73 sqM); Potassium 3.9 mmol/L (3.5-5.1); Sodium 144 mmol/L (137-145)
[2021-10-01] MEDS: FLUCONAZOLE IN NACL,ISO-OSM 100 MG in SALINE 1 50ML.BAG IVPB SCH (11:14)
[2021-10-01 11:27] LABS: Glucose,Whole Blood 133 mg/dL (75-99)
[2021-10-01] MEDS: NOREPINEPHRINE 8 MG in SODIUM CHLORIDE 0.9% 250 ML IV SCH (16:49)
[2021-10-01 18:46] LABS: Glucose,Whole Blood 167 mg/dL (75-99)
[2021-10-02] MEDS: CISATRACURIUM 200 MG in SODIUM CHLORIDE 0.9% 180 ML IV SCH (00:27)
[2021-10-02 04:17] LABS: Basophils % (A) 0 %; Eosinophils # (A) 0.1 k/uL (0-0.7); Eosinophils % (A) 1 %; HCT 32.1 % (34.0-46.0); HGB 9.8 gm/dL (11.4-16.0); Hypochromasia Marked; Lymphocytes # (A) 1.3 k/uL (1.0-4.8); Lymphocytes % (A) 10 %; MCH 27.5 pg (25.0-35.0); MCHC 30.6 g/dL (31.0-37.0); MCV 89.9 fL (80.0-100.0); Mean Platelet Volume 8.4; Monocytes # (A) 0.9 k/uL (0-1.0); Monocytes % (A) 7 %; Neutrophils # (A) 10.6 k/uL (1.3-7.7); Neutrophils % (A) 82 %; Platelet Count 250 k/uL (150-450); RBC 3.57 m/uL (3.80-5.40); RDW 15.1 % (11.5-15.5)
[2021-10-02 04:26] LABS: African American GFR (CKD) >90 (>60 ml/min/1.73 sqM); Anion Gap 3 mmol/L; Blood Urea Nitrogen 44 mg/dL (7-17); Calcium 8.4 mg/dL (8.4-10.2); Carbon Dioxide 33 mmol/L (22-30); Chloride 107 mmol/L (98-107); Glucose 137 mg/dL (74-99); Non-African American GFR(CKD) >90 (>60 ml/min/1.73 sqM); Potassium 4.2 mmol/L (3.5-5.1); Sodium 143 mmol/L (137-145)
[2021-10-02 05:33] LABS: ABG Base Excess 7.3 mmol/L; ABG HCO3 34 mmol/L (21-25); ABG Oxygen Saturation 96.3 % (94-97); ABG PH 7.27 (7.35-7.45); ABG PO2 85 mmHg (83-108); ABG TCO2 36 mmol/L (19-24)
[2021-10-02] MEDS: SODIUM CHLORIDE 0.9% 1,000 ML IV SCH (05:34)
[2021-10-02 05:36] LABS: ABG PCO2 74 mmHg (35-45)
[2021-10-02 05:37] LABS: Allen Test Performed? no
--- NOTE | 2021-10-02 07:13 | P.PN ---
Subjective Progress Note Date: 10/02/21 61-year-old female who is in the MICU with COVID-19 related pneumonia. The patient stated that she was having symptoms since September 10. The symptoms included shortness of breath, cough, fatigue, muscle aches, and generally just not feeling well. The patient is non vaccinated. She tested positive for coronavirus on September 23. The patient takes Coumadin chronically for her factor V or Leiden factor deficiency. Initially, on room air, her saturations were in the 70s, and on a nonrebreather, only got up into the mid 80s. In addition to the primary hypercoagulable state, she has a history of DVT, fibromyalgia, pneumonia, arthritis, and degenerative disc disease. She is a lifelong nonsmoker. Chest x-ray reveals diffuse bilateral infiltrates. CT angiogram was negative for pulmonary embolism, but did show diffuse infiltrates consistent with coronavirus pneumonia. Subsequently, the patient was placed on a BiPAP for respiratory support. Following that, on 09/25/2021 required intubation and mechanical ventilation. She remains on the ventilator, she is on the volume assist control mode, rate 26, tidal volume 400, FiO2 100%, and PEEP of 15. Arterial blood gases show pO2 of 72 with a pH of 7.27 and pO2 of 47. The patient's peak airway pressure is 39. The patient static pressure is 37. The chest x-ray from today is showing diffuse bilateral pulmonary infiltrates thought the lung patterson more so on the lung bases. ET tube is around 2 cm above the jahaira. The patient has a subclavian triple lumen catheter on the left. The patient is a or G-tube and good location.. The patient's getting saline at 50 mL an hour, Nimbex at 1 mcg/kg/m, propofol at 50 mcg/kg/m, and norepinephrine at 2 mcg/m. the patient has not was started on enteral feeding for nutritional support. Dietary consultation has been obtained. Meanwhile, the blood work shows normal electrolytes, sodium is at 144, BUN is at 23 with a creatinine of 0.7. The LDH level is at 930 from yesterday with a CRP level of 16.2. The patient has a d-dimer of 9.46. The patient has been maintained on long-term medical evaluation with warfarin and INR from today is at 2.2. The patient meanwhile remains on treatment and the patient is on Decadron 6 mg by mouth on a daily basis. The patient has been covered empirically with Levaquin as an I'm antibiotic coverage. Anticoagulation is with warfarin and daily PT/INR is being monitored and the warfarin has been held for now monitoring her PT/INR. Noted the patient has been taking 6 mg of warfarin on outpatient basis. The patient is also on methotrexate for rheumatoid arthritis. Note that the patient's sputum cultures still pending. Blood culture has been negative. Pro-calcitonin level at a time of admission was 0.52. On 09/28/2021, I'm seeing the patient for a follow-up. This is a 59-year-old. Patient is currently intubated on a mechanical ventilator due to COVID 19 related pneumonia with secondary hypoxic respiratory failure. The patient was intubated on 09/25/2021. At this point in time, the patient has sedated with a combination of propofol which is running at 45 mcg/kg per minute and the patient is off fentanyl. The patient is running Nimbex for paralysis as one might respiratory and per minute. The patient is quite interested mechanical ventilator and she is well sedated and paralyzed at this point in time. She is on assist-control mode of mechanical ventilation and she is currently at the rate of 26, tidal volume of 350, FiO2 is at 70% with a PEEP of 18. The blood gases from today showed a pH of 7.24 with a pCO2 of 54 and pO2 of 63. The peak airway pressure is 37. The static pressure is 35. The chest x-ray shows no jess or interval change and the patient continues to have diffuse bilateral pulmonary infiltrates which is essentially unchanged compared to yesterday. ET tube is in a good location. In terms of her inflammatory markers, no new values are not available from today. The last LDH level was from 09/26/2021 and was 9:30 with a CRP of 16.2. Otherwise, the patient remains on treatment and the patient is c urrently on Decadron running at a dose of 6 mg IV every 24 hours. Anti- coagulation was modified. The patient is currently on Eliquis 5 mg by mouth twice a day. Doppler of the lower extremity was completed yesterday and the Doppler showed evidence of DVT in the left common femoral vein through the distal superficial femoral vein. Based on that, the patient was placed on oral Eliquis. Note that the d-dimer was elevated at 9.46 from yesterday. I took the patient off the warfarin. Her INR from yesterday was at 2.2. Hemodynamically, the patient is stable. She is on no pressors. IV fluids are running at the rate of 50 mL an hour of normal saline. The patient was covered apparently with Levaquin. The Pronestyl level was at 0.5. Cultures are negative thus far. The patient was started on enteral feeding for nutritional support. The patient is currently receiving vital high protein at the rate of 24 mL an hour. She is tolerating her enteral feeding. The overall fluid balance is +2.1 L over the past 24 hours. No other significant events otherwise for now. 09/29/2021, the patient is being seen for a follow-up. This is a 59-year-old female patient is currently intubated on a mechanical ventilator and she's been intubated since 09/25/2021 for COVID 19 related pneumonia and respiratory failure. The patient remains on a mechanical ventilator this morning. The patient is currently on propofol which is running at 45 Ash as per kilogram per minute and the patient remains on fentanyl at 0.5 mcg/kg/h. The patient is also paralyzed with Nimbex. The ventilator setting today shows an assist- control of 26, tidal volume of 350, FiO2 of 70% with a PEEP of 18. Peak airway pressure is 39. Static pressures 37. The chest x-ray from today obviously showing evidence of subcutaneous emphysema in the neck which is obviously a new finding. There is also a very tiny less than 5% pneumothorax in the left apex. There is diffuse bilateral pulmonary infiltrates consistent with COVID 19 related pneumonia. Note that the subcutaneous emphysema is also extending on her anterior chest area. ET tube is in a good location. The blood gases from today show a pH of 7.33 with a pCO2 of 50-56. In terms of her COVID 19 infection, the patient carries a d-dimer of 2.19. The LDH level is at 650 with a CRP level of 5.8. Note that the LDH level is lower compared to her earlier values. Rest of the blood work essentially negative. The patient has a white cell count of 16 with a hemoglobin of 10.5. Electrodes are still pending for now. The patient remains on empiric antibiotic coverage with IV cefepime. The patient remains on Decadron 6 mg by mouth on a daily basis and the patient is on anticoagulants utilizing Coumadin and we are doing daily PT/INR monitoring. INR from today is still pending. INR from yesterday was therapeutic at 2.2. The patient has been maintained on warfarin on outpatient basis. switched patient to Eliquis which will be easier to manage without monitoring her PT/INR on a daily basis. The cultures of been all negative. The neck fluid balance over the past 24 hours has been +2.1 L. She is on Tube feeds on vital HP @ 24 cc/hr. She is on NSS @ 50 cc/hr On today's evaluation of 09/30/2021, the patient is being seen for a follow-up. He remains intubated on mechanical ventilator. He remains sedated with propofol running at 50 mcg/kg per minute and fentanyl is running at 1 mcg/kg/h and the patient is also on the Nimbex drip at 1.5 mcg/kg per minute. The patient is adequately sedated paralyzed. The patient is hemodynamically stable. The patient is afebrile. She is producing adequate urine output in the order of 30- 40 mL an hour. On a mechanical ventilator, she is an assist-control mode with a rate of 26, tidal volume of 350, and this was reduced yesterday DrIsis 325 and FiO2 is currently at 80% with a PEEP of 18. The blood gases from today shows a pH of 7.26 with a pCO2 of 66 and pO2 of 74. Chest x-ray showing worsening in the subcutaneous emphysema. No evidence of any pneumothorax. Clinically, the subcutaneous emphysema is also worse. The peak pressure 37. Static pressures 36. The patient has no significant orotracheal secretions. ET tube is in a good location on today's chest x-ray. The patient is covered empirically with IV cefepime. All of the cultures are negative for now. Meanwhile, inflammatory markers are being monitored on a periodic basis. LDH is down to 599 and a CRP level is at 5.3. The patient remains on Decadron 6 mg IV every 24 hours. The patient is also on long-term anticoagulation and I switched her to Eliquis milligrams by mouth twice a day. Her electrolytes showed BUN of 35 with a creatinine of 0.7, resident electrodes are all within normal limits. Serum bicarb is up to 31. The white cell count today is at 15.8 hemoglobin of 10.6. The patient is tolerating enteral feeding for nutritional support and the patient is currently on vital high protein at the rate of 24 mL an hour. I updated the yesterday over the phone and had a lengthy discussion with him and explained to him the ongoing condition. In general, her condition has remained stable. The patient is not showing any significant progress over the past 24-48 hours. Furthermore, there is evidence of subcutaneous emphysema that has developed as a complication of COVID 19 related infection/pneumonia. 10/01 2021, the patient continues to have extensive subcutaneous emphysema. There is worsening of subcutaneous edema clinically and on today's chest x-ray. Note that there is no evidence of any pneumothorax and ET tube remains in a good location. On today's evaluation, the patient remains sedated on propofol which is currently running at 45 mcg/kg per minute and the fentanyl is running at 1 mcg/kg/h. The patient remains sedated and paralyzed and she is on Nimbex running at 1 mcg/kg per minute. The patient remains on a mechanical ventilator. No ventilator changes were done yesterday. She remains on assist-control at the rate of 26, tidal volume of 325, PEEP is currently at 18 with an FiO2 of 80%. Peak airway pressure is still elevated at 38. No significant orotracheal secretions. The blood gases from today shows a pH of 7.32 with a pCO2 of 67 and pO2 of 64. LDH to from yesterday was 599, CRP was at 5.3, d-dimer is at 2.3. The patient remains on Decadron 6 January grams IV every 24 hours. The patient is in a negative fluid balance of 637 mL over the past 24 hours. She remains on anticoagulation with Eliquis and she is also on empiric antibiotic coverage with IV cefepime. She continues to receive enteral feeding for nutritional support. She is on vital high protein at the rate of 24 mL an hour. No significant progress in her condition. In fact, there is worsening in the subcutaneous emphysema. Otherwise, no pneumothorax, no improvement and chest x-ray findings, no improvement in the blood gas, no improvement in the airway pressures on today's evaluation. She remains sedated and paralyzed. 10/02/2021, the patient is being seen for a follow-up and the patient remains intubated on a mechanical ventilator. She remains on a propofol 50 mcg/kg per minute, fentanyl is still running at 1 mcg/kg/h and Nimbex is running at 1.5 mcg/kg per minute. She remains on essentially the same ventilator settings pH is at the rate of 26 with a tidal volume of 325, her PEEP is currently at 18 with an FiO2 of 80%. The blood gases from this morning shows a pH of 7.27 with a pCO2 of 74 and pO2 of 85. As such, there is some limited improvement in the oxygenation. The chest x-ray from yesterday was showing extensive subcutaneous emphysema and based on that several liters were applied to the chest to the flatus obtain his emphysema clinically the amount of emphysema is less compared to yesterday. The peak airway pressure still elevated around 37-41. A follow- up chest x-ray from today is pending. Meanwhile, the patient remains on Decadron. The patient is also on IV cefepime 2 g every 12 hours and the patient is also on IV Diflucan. The patient remains on anticoagulation with Eliquis 5 mg by mouth twice a day. No fever. No chills. Cultures were all negative. Remains on a white cell count of 13 with a hemoglobin of 9.8 and a platelet count of 250. Is a 44 with a creatinine of 0.6 and the sodium level is at 143. LDH from yesterday was 531 with a CRP level of 4.2. The patient is tolerating enteral feeding for nutritional support. The patient is currently on vitamin H. Rate of 24 mL an hour. Overall fluid balance has been -600 mL over the past 24 hours and the patient shows no significant signs of fluid overload. Progress has been extremely slow with this patient. No significant improvement in the oxygenation. Her condition is essentially at a standstill as the patient has suffered a COVID 19 associated pneumonia/ARDS. Objective - Vital Signs Vital signs: Vital Signs Temp 97.9 F 10/02/21 04:00 Pulse 64 10/02/21 06:00 Resp 26 H 10/02/21 06:00 BP 98/49 10/02/21 05:00 Pulse Ox 93 L 10/02/21 06:00 Intake & Output 10/01/21 10/02/21 10/02/21 18:59 06:59 18:59 Intake Total 928.614 925.832 Output Total 672 655 Balance 256.614 270.832 Weight 91.5 kg 91 kg Intake: IV 276 276 .9 36 36 0.9 NACL 240 240 Intake, IV Titration 580.614 337.832 Amount Cefepime 2 gm In Sodium 100 Chloride 0.9% 100 ml @ 25 mls/hr IVPB Q12HR [facility] Rx #:[id number] Fluconazole in NaCl,Iso- 50 Osm 100 mg In Saline 1 50ml.bag @ 50 mls/hr IVPB DAILY@1200 [facility] Rx#: [id number] fentaNYL (PF) 2,500 mcg 185.994 141.757 In Sodium Chloride 0.9% 200 ml @ 0.5 MCG/KG/HR 4. 6 mls/hr IV .Q24H [facility] Rx# :[id number] propofoL 1,000 mg In 244.62 196.075 Empty Bag 1 bag @ Titrate IV .Q0M [facility] Rx#: [id number] Tube Feeding 72 312 Output: Urine 672 655 Other: Voiding Method Indwelling Catheter Indwelling Catheter ABP, PAP, CO, CI - Last Documented Arterial Blood Pressure 101/46 - Exam No acute distress, sedated and paralyzed, with an orally placed endotracheal tube and nasogastric tube. The patient has evidence of subcutaneous emphysema in the neck and anterior chest area and this can be easily palpated on today's evaluation. Head exam was generally normal. There was no scleral icterus or corneal arcus. Mucous membranes were moist. Neck was supple and without jugular venous distension, thyromegaly, or carotid bruits. Carotids were easily palpable bilaterally. There was no adenopathy Lungs were clear to auscultation and percussion, and with normal diaphragmatic excursion. No wheezes or rales were noted. Cardiac exam revealed the PMI to be normally situated and sized. The rhythm was regular and no extrasystoles were noted during several minutes of auscultation. The first and second heart sounds were normal and physiologic splitting of the second heart sound was noted. There were no murmurs, rubs, clicks, or gallops. Abdominal exam revealed normal bowel sounds. The abdomen was soft, non-tender, and without masses, organomegaly, or appreciable enlargement of the abdominal aorta. Examination of the extremities revealed easily palpable radial, femoral and pedal pulses. There was no cyanosis, clubbing or edema. Examination of the skin revealed no evidence of significant rashes, suspicious appearing nevi or other concerning lesions. Neurologic examination cannot be assessed as the patient is currently sedated and paralyzed. - Labs CBC & Chem 7: 10/02/21 03:45 10/02/21 03:45 Labs: Abnormal Lab Results - Last 24 Hours (Table) 10/01/21 10/01/21 10/01/21 Range/Units 08:13 08:13 08:13 WBC 15.2 H (3.8-10.6) k/uL RBC (3.80-5.40) m/uL Hgb 10.6 L (11.4-16.0) gm/dL Hct (34.0-46.0) % MCHC 30.2 L (31.0-37.0) g/dL Neutrophils # 12.1 H (1.3-7.7) k/uL D-Dimer 2.58 H (<0.60) mg/L FEU ABG pH (7.35-7.45) ABG pCO2 (35-45) mmHg ABG HCO3 (21-25) mmol/L ABG Total CO2 (19-24) mmol/L Chloride 109 H (98-107) mmol/L Carbon Dioxide 35 H (22-30) mmol/L BUN 43 H (7-17) mg/dL Glucose 138 H (74-99) mg/dL POC Glucose (mg/dL) (75-99) mg/dL C-Reactive Protein 4.2 H (<1.0) mg/dL 10/01/21 10/01/21 10/02/21 Range/Units 11:25 18:44 03:45 WBC 13.0 H (3.8-10.6) k/uL RBC 3.57 L (3.80-5.40) m/uL Hgb 9.8 L (11.4-16.0) gm/dL Hct 32.1 L (34.0-46.0) % MCHC 30.6 L (31.0-37.0) g/dL Neutrophils # 10.6 H (1.3-7.7) k/uL D-Dimer (<0.60) mg/L FEU ABG pH (7.35-7.45) ABG pCO2 (35-45) mmHg ABG HCO3 (21-25) mmol/L ABG Total CO2 (19-24) mmol/L Chloride (98-107) mmol/L Carbon Dioxide (22-30) mmol/L BUN (7-17) mg/dL Glucose (74-99) mg/dL POC Glucose (mg/dL) 133 H 167 H (75-99) mg/dL C-Reactive Protein (<1.0) mg/dL 10/02/21 10/02/21 Range/Units 03:45 05:26 WBC (3.8-10.6) k/uL RBC (3.80-5.40) m/uL Hgb (11.4-16.0) gm/dL Hct (34.0-46.0) % MCHC (31.0-37.0) g/dL Neutrophils # (1.3-7.7) k/uL D-Dimer (<0.60) mg/L FEU ABG pH 7.27 L (7.35-7.45) ABG pCO2 74 H* (35-45) mmHg ABG HCO3 34 H (21-25) mmol/L ABG Total CO2 36 H (19-24) mmol/L Chloride (98-107) mmol/L Carbon Dioxide 33 H (22-30) mmol/L BUN 44 H (7-17) mg/dL Glucose 137 H (74-99) mg/dL POC Glucose (mg/dL) (75-99) mg/dL C-Reactive Protein (<1.0) mg/dL Assessment and Plan Plan: 1 Acute hypoxemic respiratory failure/ARDS secondary to coronavirus associated pneumonia, status post intubation, and mechanical ventilation on 09/25/2021.No evidence of pulmonary embolism on CT angiogram. The patient continues to have diffuse bilateral pulmonary infiltrates consistent with COVID 19 related pneumonia. The patient is currently on Decadron 6 mg by mouth on a daily basis. The patient is also on long-term anticoagulation with warfarin and INR is therapeutic for now. Anti-coagulation was given to the patient because of an underlying hypercoagulable state. The less, the Doppler of the lower extremity showed a DVT in the left common femoral vein and the patient was started on Eliquis 5 mg by mouth twice a day and warfarin was discontinued. For now, the patient has developed a tiny left apical pneumothorax in addition subcutaneous emphysema. The peak and static pressures are 38-41 , there is bilateral subcutaneous emphysema with interval worsening. No major changes in her condition. Some limited improvement in her oxygenation. 2 acute COVID 19 related pneumonia 3 subcutaneous emphysema involving the neck and the chest in addition to a tiny left apical pneumothorax. 4 acute left lower extremity femoral DVT currently on Eliquis. The patient is known to have a Primary hypercoagulable state in the form of Leiden factor deficiency/factor V deficiency. The patient has been maintained on warfarin on outpatient basis. 5 Prior history of DVT. 6 History of fibromyalgia. 7 History of arthritis. 8 History of degenerative disc disease. 9 Mild transaminitis secondary to coronavirus infection. Plan Continue ventilator support for now. Keep the ventilator settings same and drop the FiO2 down to 70%. Keep angiocaths to deflate the subcutaneous emphysema Continue Decadron Continue anticoagulation with Eliquis 5 mg by mouth twice a day Repeat inflammatory markers show improvement IV cefepime 2 g every 12 hours No pressors enteral feeding for nutritional support No major changes for today We'll continue to follow make further recommendations based on her progress. This is a critically care evaluation was done and more than 30 minutes. Time with Patient: Greater than 30
--- NOTE | 2021-10-02 08:06 | XR ---
EXAMINATION TYPE: XR chest 1V portable DATE OF EXAM: 10/02/2021 COMPARISON: 10/01/2021 HISTORY: Tube placement TECHNIQUE: Single frontal view of the chest is obtained. FINDINGS: There is an ET tube 4.6 cm above the jahaira. There is an NG tube within the stomach. There is been a mild reduction in the diffuse subcutaneous emphysema. There are scattered partially consolidative and interstitial opacities bilaterally essentially unchan ged compared to previous. Heart size is normal. The osseous structures are intact. IMPRESSION: ET tube 4.6 cm above the jahaira. No change in the diffuse lung infiltrates. Mild reducti on in the subcutaneous emphysema.
--- NOTE | 2021-10-02 08:42 | P.PN ---
Subjective Progress Note Date: 10/01/21 This is a 61-year-old female who was recently admitted with acute COVID-19 pneumonia with acute COVID-19 bilateral interstitial pneumonia and also with transaminitis and being closely monitored. Patient remains in the ICU and currently intubated and sedated with an FiO2 of 70% and PEEP is 18. 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 Patient did have a venous Doppler study done recently which showed left leg DVT and patient is maintained on Eliquis will continue. Patient also continues on empiric antibiotics and awaiting for sputum culture finalized. Patient was started on IV cefepime and will continue. Patient is also continued on oral dexamethasone along with vitamin and zinc supplements and will continue. Patient with some mild volume overload and given a dose of IV Lasix push today. 09/29/2021 Patient is seen and evaluated this morning continues to be closely monitored in the ICU and continues to be on mechanical ventilation and sedated. FiO2 was increased at 80% with a PEEP of 18 and oxygen saturations between 87-91%. Patient developing subcutaneous emphysema in the neck and chest wall area and chest x-ray today shows bilateral multifocal and confluent opacification is redemonstrated consistent with COVID-19 infection with a new small left apical pneumothorax estimated under 5% with new pneumomediastinum and recurrent overlying subcutaneous emphysema noted. Patient is white blood count mildly elevated at 16.1 and is continued on oral dexamethasone along with oral eliquis for anticoagulation. Patient continues to be on IV cefepime and blood and sputum cultures are negative thus far. 09/30/2021 Patient is seen today continues to be closely monitored in the ICU with multiple medical consultations following. Patient continues to be mechanically intubated and sedated with continued subcutaneous emphysema noted. Chest xray shows a trace left apical pneumothorax that is minimally smaller 7mm versus 1cm previously, extensive bilateral subcutaneous emphysema persists and diffuse interstitial changes and bilateral patchy opacities persist with slight improvement in aeration in the lower lungs. Per nursing staff corbin was clogged with copious amounts of white discharge and will add diflucan and corbin catheter has been changed and draining adequately. Patient continues on IV cefepime. Patient tolerating tube feeds and will continue. 10/01/2021 Patient is seen and evaluated in follow up this morning and continues to be closely monitored. Multiple medical consultations following and patient c ontinues to be on mechanical vent and sedated. Patient continues on IV Cefepime and diflucan. Patient chest xray today shows stable extensive subcutaneous emphysema, no pneumothorax, and patchy bilateral lung infiltrates remain present. INflammatory markers trending down. Review of systems: Unable to obtain as patient is mechanically intubated and sedated Labs: WBC is 15.2, hemoglobin is 10.6, platelets are 286, d-dimer is 2.58, sodium is 144, potassium 3.9, BUN 43, creatinine 0.68, calcium 8.4, LDH 531, CRP 4.2 Active Medications Apixaban (Apixaban 5 Mg Tab) 5 mg PO BID [facility]; Protocol Last Admin: 10/01/21 08:42 Dose: 5 mg Documented by: Artificial Tears (Artificial Tears-Hypromellose Drops 15 Ml Btl) 2 drops BOTH EYES QID [facility] Last Admin: 10/01/21 11:14 Dose: 2 drops Documented by: Ascorbic Acid (Ascorbic Acid 500 Mg Tab) 500 mg PO BID [facility] Last Admin: 10/01/21 08:42 Dose: 500 mg Documented by: Chlorhexidine Gluconate (Chlorhexidine Gluconate 15 Ml Cup) 15 ml MUCOUS MEM BID [facility] Last Admin: 10/01/21 08:43 Dose: 15 ml Documented by: Dexamethasone (Dexamethasone 2 Mg Tab) 6 mg PO DAILY [facility] Last Admin: 10/01/21 08:42 Dose: 6 mg Documented by: Ergocalciferol (Ergocalciferol 1,250 Mcg (50,000 Iu) Capsule) 1,250 mcg PO [facility] Last Admin: 09/26/21 09:15 Dose: 1,250 mcg Documented by: Propofol 1,000 mg/ IV Solution 100 mls @ 0 mls/hr IV .Q0M [facility]; Protocol Last Admin: 10/01/21 12:51 Dose: 50 mcg/kg/min, 27.6 mls/hr Documented by: Cisatracurium Besylate 200 mg/ (Sodium Chloride) 200 mls @ 5.16 mls/hr IV .Q24H [facility]; Protocol Last Admin: 09/30/21 16:47 Dose: Not Given Documented by: Cefepime HCl 2 gm/ Sodium (Chloride) 100 mls @ 25 mls/hr IVPB Q12HR [facility] Last Admin: 10/01/21 08:42 Dose: 25 mls/hr Documented by: Sodium Chloride (Saline 0.9%) 1,000 mls @ 20 mls/hr IV .Q24H [facility] Last Admin: 10/01/21 03:38 Dose: Not Given Documented by: Fentanyl Citrate 2,500 mcg/ (Sodium Chloride) 250 mls @ 4.6 mls/hr IV .Q24H [facility]; Protocol Last Titration: 10/01/21 09:01 Dose: 1.5 mcg/kg/hr, 13.8 mls/hr Documented by: Norepinephrine Bitartrate 8 mg (/ Sodium Chloride) 258 mls @ 8.901 mls/hr IV .Q24H [facility]; Protocol Last Admin: 09/30/21 19:13 Dose: Not Given Documented by: Fluconazole/Sodium Chloride (100 mg/ IV Solution) 50 mls @ 50 mls/hr IVPB DAILY@1200 [facility] Last Admin: 10/01/21 11:14 Dose: 50 mls/hr Documented by: Miscellaneous Information (Pneumonia Protocol Utilized 1 Each Misc) 1 each PO ONCE PRN PRN Reason: Per Protocol Naloxone HCl (Naloxone 0.4 Mg/Ml 1 Ml Vial) 0.2 mg IV Q2M PRN PRN Reason: Opioid Reversal Pantoprazole Sodium (Pantoprazole 40 Mg/10 Ml Vial) 40 mg IV DAILY [facility] Last Admin: 10/01/21 08:42 Dose: 40 mg Documented by: Zinc Sulfate (Zinc Sulfate 220 Mg Cap) 220 mg PO DAILY [facility] Last Admin: 10/01/21 08:43 Dose: 220 mg Documented by: Physical Exam: Gen: This is a this is a 61-year-old female currently sedated and intubated. Temp is 98.0F, pulse is 86, respirations are 26, arterial blood pressure is 157/61, oxygen saturation is 91% on 80% mechanical ventilation with a PEEP of 18 HEENT: Head is atraumatic, normocephalic. Pupils equal, round. Sclerae is a nicteric. NECK: Supple. No JVD. No lymphadenopathy. No thyromegaly. subcutaneous emphysema noted in the neck and chest wall area bilaterally. LUNGS: Diminished breath sounds bilaterally with coarse rhonchi and crackles noted. No intercostal retractions. HEART: S1, S2 are muffled ABDOMEN: Soft. Bowel sounds are present. No masses. No tenderness. EXTREMITIES: No pedal edema. No calf tenderness. Bilateral upper extremity edema noted NEUROLOGICAL: Patient is currently intubated and sedated Assessment: Acute COVID-19 infection with acute COVID-19 bilateral interstitial pneumonia with hypoxic hypercarbic respiratory failure Subcutaneous emphysema of the neck and chest with a left apical pneumothorax less than 5% Acute left leg deep vein thrombosis Primary hypercoagulable state and factor V week deficiency Possible candidiasis secondary to prolonged indwelling Corbin catheter Mild transaminitis, possibly secondary to COVID-19 History of DVT History of degenerative joint disease History of fibromyalgia Acute respiratory acidosis Increased white blood count anemia, unknown etiology Elevated inflammatory markers of COVID-19 Obesity with a body mass index of 36.4 History of pneumonia History of cholecystectomy Full code Plan: Recommend to continue with current medications and follow along closely with multiple medical consultations. Prognosis remains guarded with multiple complex medical issues noted. Patient continues on mechanical ventilation with an FiO2 of 80% and PEEP is 18. No room for titrating today. Recommend continue with current medications and patient has been maintained on IV cefepime and sputum cultures and Blood cultures thus far remain negative. Diflucan added as well. Recommend patient to continue on Eliquis and monitor closely for any signs of bleeding. Chest x-ray reviewed as mentioned above. Recommend repeat labs and chest x-ray in the morning. Again due to multiple complex medical issues prognosis is quite guarded. Objective - Vital Signs Vital signs: Vital Signs Temp 98.0 F 10/01/21 08:00 Pulse 86 10/01/21 08:00 Resp 21 10/01/21 08:00 BP 109/49 10/01/21 07:00 Pulse Ox 91 L 10/01/21 08:00 Intake & Output 09/30/21 10/01/21 10/01/21 18:59 06:59 18:59 Intake Total 918 830.154 23 Output Total 1490 480 40 Balance -572 350.154 -17 Intake: IV 240 220 23 .9 3 0.9 NACL 240 220 20 Intake, IV Titration 300 346.154 Amount Cefepime 2 gm In Sodium 100 Chloride 0.9% 100 ml @ 25 mls/hr IVPB Q12HR [facility] Rx #:[id number] fentaNYL (PF) 2,500 mcg 146.154 In Sodium Chloride 0.9% 200 ml @ 0.5 MCG/KG/HR 4. 6 mls/hr IV .Q24H [facility] Rx# :[id number] propofoL 1,000 mg In 200 200 Empty Bag 1 bag @ Titrate IV .Q0M [facility] Rx#: [id number] Tube Feeding 288 264 Other 90 Output: Urine 1490 480 40 Other: Voiding Method Indwelling Catheter Indwelling Catheter ABP, PAP, CO, CI - Last Documented Arterial Blood Pressure 157/61 - Labs CBC & Chem 7: 10/02/21 03:45 10/02/21 03:45 Labs: Abnormal Lab Results - Last 24 Hours (Table) 10/01/21 10/01/21 Range/Units 05:10 08:13 WBC 15.2 H (3.8-10.6) k/uL Hgb 10.6 L (11.4-16.0) gm/dL MCHC 30.2 L (31.0-37.0) g/dL Neutrophils # 12.1 H (1.3-7.7) k/uL ABG pH 7.32 L (7.35-7.45) ABG pCO2 67 H (35-45) mmHg ABG pO2 64 L (83-108) mmHg ABG HCO3 34 H (21-25) mmol/L ABG Total CO2 36 H (19-24) mmol/L ABG O2 Saturation 92.3 L (94-97) %
[2021-10-02 10:00] LABS: ABG Base Excess 8.7 mmol/L; ABG HCO3 35 mmol/L (21-25); ABG Oxygen Saturation 91.4 % (94-97); ABG PCO2 69 mmHg (35-45); ABG PH 7.31 (7.35-7.45); ABG PO2 63 mmHg (83-108); ABG TCO2 37 mmol/L (19-24)
[2021-10-02] MEDS: dexAMETHasone 2 MG TAB PO SCH (10:19)
[2021-10-02] MEDS: APIXABAN 5 MG TAB PO SCH ×2 (10:19→20:32)
[2021-10-02] MEDS: CEFEPIME 2 GM in SODIUM CHLORIDE 0.9% 100 ML IVPB SCH ×2 (10:20→20:33)
[2021-10-02] MEDS: PANTOPRAZOLE 40 MG/10 ML VIAL IV SCH (10:20)
[2021-10-02] MEDS: CHLORHEXIDINE GLUCONATE 15 ML CUP MUCOUS MEM SCH ×2 (10:20→20:33)
[2021-10-02] MEDS: ZINC SULFATE 220 MG CAP PO SCH (10:20)
[2021-10-02] MEDS: ASCORBIC ACID 500 MG TAB PO SCH ×2 (10:21→20:33)
[2021-10-02 11:48] LABS: Glucose,Whole Blood 123 mg/dL (75-99)
[2021-10-02] MEDS: ARTIFICIAL TEARS-HYPROMELLOSE DROPS 15 ML BTL BOTH EYES SCH ×4 (12:15→20:34)
[2021-10-02] MEDS: FLUCONAZOLE IN NACL,ISO-OSM 100 MG in SALINE 1 50ML.BAG IVPB SCH (13:08)
--- NOTE | 2021-10-02 18:18 | PN ---
PROGRESS NOTE DATE OF SERVICE: 10/02/2021 This is a 61-year-old woman who was admitted with COVID-19 pneumonia and acute hypoxic respiratory failure on mechanical ventilation. The patient also had acute left leg DVT. The most recent chest x-ray which was done today and reviewed personally by me showed bilateral consolidations and multiple consultants are following the patient closely. The cultures are negative so far. The patient still has acute respiratory acidosis. PAST MEDICAL HISTORY: Reviewed. REVIEW OF SYSTEMS: Could not be taken, the patient is mechanically sedated. CURRENT MEDICATIONS: Reviewed include Eliquis, Artificial Tears, vitamin C, cefepime, chlorhexidine, Hexadrol. Doses reviewed. PHYSICAL EXAMINATION: Patient is mechanically sedated. Pulse is 64, blood pressure 101/46, respirations 26, temperature 97.9, pulse ox 93% on mechanical sedation, 80% FIO2, PEEP of 18. HEENT: Conjunctivae normal. Oral mucosa moist. NECK: No jugular venous distention. No lymph node enlargement. CARDIOVASCULAR: S1, S2, muffled. No S3, no S4, RESPIRATORY: Diminished breath sounds at the bases. A few scattered rhonchi. ABDOMEN: Soft, obese. LEGS: No edema, no swelling. NERVOUS SYSTEM: Mechanically sedated. LABS: WBC 13, hemoglobin 16.2. Other labs are noted. ASSESSMENT: 1. Acute COVID-19 infection with acute COVID-19 bilateral interstitial pneumonia with acute hypoxic hypercarbic respiratory failure. 2. Subcutaneous emphysema of the neck and chest with left pneumothorax less than 5%. 3. Acute left leg deep vein thrombosis. 4. Acute respiratory acidosis. 5. Primary hypercoagulable state and factor 5 deficiency. 6. Possible ( ) secondary to prolonged indwelling Golden catheter. 7. Mild transaminitis possibly secondary to COVID-19. 8. History of DVT. 9. History of DJD. 10.History of fibromyalgia. 11.Acute respiratory acidosis. 12.Increased WBC. 13.Anemia of undetermined etiology. 14.Elevated inflammatory markers of COVID-19. 15.Obesity, body mass of 36.4. 16.History of pneumonia. 17.History of cholecystectomy. 18.FULL CODE. RECOMMENDATIONS: Recommend to continue current management and continue symptomatic treatment. Continue mechanical vent. Continue antibiotics. Follow the cultures. The prognosis is extremely guarded because of multiple complex medical issues. Further recommendations to follow. MMODL / IJN: [id number] /
[2021-10-02] MEDS: fentaNYL (PF) 2,500 MCG in SODIUM CHLORIDE 0.9% 200 ML IV SCH (22:48)
[2021-10-03] MEDS: DOCUSATE ORAL SOLN 100 MG/10 ML CUP PO PRN ×2 (00:23→14:39)
[2021-10-03] MEDS: CISATRACURIUM 200 MG in SODIUM CHLORIDE 0.9% 180 ML IV SCH (04:32)
[2021-10-03 04:55] LABS: African American GFR (CKD) >90 (>60 ml/min/1.73 sqM); Anion Gap 1 mmol/L; Blood Urea Nitrogen 43 mg/dL (7-17); Calcium 8.5 mg/dL (8.4-10.2); Carbon Dioxide 33 mmol/L (22-30); Chloride 107 mmol/L (98-107); Glucose 162 mg/dL (74-99); Non-African American GFR(CKD) >90 (>60 ml/min/1.73 sqM); Potassium 4.3 mmol/L (3.5-5.1); Sodium 141 mmol/L (137-145)
[2021-10-03 04:56] LABS: Basophils % (A) 0 %; Eosinophils % (A) 0 %; HCT 31.7 % (34.0-46.0); HGB 9.5 gm/dL (11.4-16.0); Hypochromasia Marked; Lymphocytes # (A) 0.9 k/uL (1.0-4.8); Lymphocytes % (A) 9 %; MCH 27.2 pg (25.0-35.0); MCV 90.4 fL (80.0-100.0); Mean Platelet Volume 9.3; Monocytes # (A) 0.6 k/uL (0-1.0); Monocytes % (A) 6 %; Neutrophils # (A) 8.4 k/uL (1.3-7.7); Neutrophils % (A) 83 %; Platelet Count 252 k/uL (150-450); RBC 3.51 m/uL (3.80-5.40); WBC 10.1 k/uL (3.8-10.6)
[2021-10-03 06:05] LABS: ABG Base Excess 8.6 mmol/L; ABG HCO3 34 mmol/L (21-25); ABG Oxygen Saturation 90.9 % (94-97); ABG PCO2 64 mmHg (35-45); ABG PH 7.34 (7.35-7.45); ABG PO2 61 mmHg (83-108); ABG TCO2 36 mmol/L (19-24); Allen Test Performed? Yes
--- NOTE | 2021-10-03 06:56 | XR ---
EXAMINATION TYPE: XR chest 1V portable DATE OF EXAM: 10/03/2021 COMPARISON: 10/01/2021 HISTORY: Difficulty breathing TECHNIQUE: Single frontal view of the chest is obtained. FINDINGS: There are interstitial and partially consolidative opacities in the mid and lower lung zon es with mild interval improvement in the left lung base. There is no pneumothorax or large pleural effusion. Heart size normal vasculature is not congested. There is been significant reduction in the subcutaneous emphysema compared to previous. ET tube is 4 cm above the jahaira. There is been no change in the left central venous catheter or NG t ube. The osseous structures remain intact IMPRESSION: Significant reduction in the subcutaneous emphysema. 2. Mild interval improvement in the left lung infiltrates and stable right lung infiltrates.
--- NOTE | 2021-10-03 08:02 | P.PN ---
Subjective Progress Note Date: 10/03/21 61-year-old female who is in the MICU with COVID-19 related pneumonia. The patient stated that she was having symptoms since September 10. The symptoms included shortness of breath, cough, fatigue, muscle aches, and generally just not feeling well. The patient is non vaccinated. She tested positive for coronavirus on September 23. The patient takes Coumadin chronically for her factor V or Leiden factor deficiency. Initially, on room air, her saturations were in the 70s, and on a nonrebreather, only got up into the mid 80s. In addition to the primary hypercoagulable state, she has a history of DVT, fibromyalgia, pneumonia, arthritis, and degenerative disc disease. She is a lifelong nonsmoker. Chest x-ray reveals diffuse bilateral infiltrates. CT angiogram was negative for pulmonary embolism, but did show diffuse infiltrates consistent with coronavirus pneumonia. Subsequently, the patient was placed on a BiPAP for respiratory support. Following that, on 09/25/2021 required intubation and mechanical ventilation. She remains on the ventilator, she is on the volume assist control mode, rate 26, tidal volume 400, FiO2 100%, and PEEP of 15. Arterial blood gases show pO2 of 72 with a pH of 7.27 and pO2 of 47. The patient's peak airway pressure is 39. The patient static pressure is 37. The chest x-ray from today is showing diffuse bilateral pulmonary infiltrates thought the lung patterson more so on the lung bases. ET tube is around 2 cm above the jahaira. The patient has a subclavian triple lumen catheter on the left. The patient is a or G-tube and good location.. The patient's getting saline at 50 mL an hour, Nimbex at 1 mcg/kg/m, propofol at 50 mcg/kg/m, and norepinephrine at 2 mcg/m. the patient has not was started on enteral feeding for nutritional support. Dietary consultation has been obtained. Meanwhile, the blood work shows normal electrolytes, sodium is at 144, BUN is at 23 with a creatinine of 0.7. The LDH level is at 930 from yesterday with a CRP level of 16.2. The patient has a d-dimer of 9.46. The patient has been maintained on long-term medical evaluation with warfarin and INR from today is at 2.2. The patient meanwhile remains on treatment and the patient is on Decadron 6 mg by mouth on a daily basis. The patient has been covered empirically with Levaquin as an I'm antibiotic coverage. Anticoagulation is with warfarin and daily PT/INR is being monitored and the warfarin has been held for now monitoring her PT/INR. Noted the patient has been taking 6 mg of warfarin on outpatient basis. The patient is also on methotrexate for rheumatoid arthritis. Note that the patient's sputum cultures still pending. Blood culture has been negative. Pro-calcitonin level at a time of admission was 0.52. On 09/28/2021, I'm seeing the patient for a follow-up. This is a 59-year-old. Patient is currently intubated on a mechanical ventilator due to COVID 19 related pneumonia with secondary hypoxic respiratory failure. The patient was intubated on 09/25/2021. At this point in time, the patient has sedated with a combination of propofol which is running at 45 mcg/kg per minute and the patient is off fentanyl. The patient is running Nimbex for paralysis as one might respiratory and per minute. The patient is quite interested mechanical ventilator and she is well sedated and paralyzed at this point in time. She is on assist-control mode of mechanical ventilation and she is currently at the rate of 26, tidal volume of 350, FiO2 is at 70% with a PEEP of 18. The blood gases from today showed a pH of 7.24 with a pCO2 of 54 and pO2 of 63. The peak airway pressure is 37. The static pressure is 35. The chest x-ray shows no jess or interval change and the patient continues to have diffuse bilateral pulmonary infiltrates which is essentially unchanged compared to yesterday. ET tube is in a good location. In terms of her inflammatory markers, no new values are not available from today. The last LDH level was from 09/26/2021 and was 9:30 with a CRP of 16.2. Otherwise, the patient remains on treatment and the patient is c urrently on Decadron running at a dose of 6 mg IV every 24 hours. Anti- coagulation was modified. The patient is currently on Eliquis 5 mg by mouth twice a day. Doppler of the lower extremity was completed yesterday and the Doppler showed evidence of DVT in the left common femoral vein through the distal superficial femoral vein. Based on that, the patient was placed on oral Eliquis. Note that the d-dimer was elevated at 9.46 from yesterday. I took the patient off the warfarin. Her INR from yesterday was at 2.2. Hemodynamically, the patient is stable. She is on no pressors. IV fluids are running at the rate of 50 mL an hour of normal saline. The patient was covered apparently with Levaquin. The Pronestyl level was at 0.5. Cultures are negative thus far. The patient was started on enteral feeding for nutritional support. The patient is currently receiving vital high protein at the rate of 24 mL an hour. She is tolerating her enteral feeding. The overall fluid balance is +2.1 L over the past 24 hours. No other significant events otherwise for now. 09/29/2021, the patient is being seen for a follow-up. This is a 59-year-old female patient is currently intubated on a mechanical ventilator and she's been intubated since 09/25/2021 for COVID 19 related pneumonia and respiratory failure. The patient remains on a mechanical ventilator this morning. The patient is currently on propofol which is running at 45 Ash as per kilogram per minute and the patient remains on fentanyl at 0.5 mcg/kg/h. The patient is also paralyzed with Nimbex. The ventilator setting today shows an assist- control of 26, tidal volume of 350, FiO2 of 70% with a PEEP of 18. Peak airway pressure is 39. Static pressures 37. The chest x-ray from today obviously showing evidence of subcutaneous emphysema in the neck which is obviously a new finding. There is also a very tiny less than 5% pneumothorax in the left apex. There is diffuse bilateral pulmonary infiltrates consistent with COVID 19 related pneumonia. Note that the subcutaneous emphysema is also extending on her anterior chest area. ET tube is in a good location. The blood gases from today show a pH of 7.33 with a pCO2 of 50-56. In terms of her COVID 19 infection, the patient carries a d-dimer of 2.19. The LDH level is at 650 with a CRP level of 5.8. Note that the LDH level is lower compared to her earlier values. Rest of the blood work essentially negative. The patient has a white cell count of 16 with a hemoglobin of 10.5. Electrodes are still pending for now. The patient remains on empiric antibiotic coverage with IV cefepime. The patient remains on Decadron 6 mg by mouth on a daily basis and the patient is on anticoagulants utilizing Coumadin and we are doing daily PT/INR monitoring. INR from today is still pending. INR from yesterday was therapeutic at 2.2. The patient has been maintained on warfarin on outpatient basis. switched patient to Eliquis which will be easier to manage without monitoring her PT/INR on a daily basis. The cultures of been all negative. The neck fluid balance over the past 24 hours has been +2.1 L. She is on Tube feeds on vital HP @ 24 cc/hr. She is on NSS @ 50 cc/hr On today's evaluation of 09/30/2021, the patient is being seen for a follow-up. He remains intubated on mechanical ventilator. He remains sedated with propofol running at 50 mcg/kg per minute and fentanyl is running at 1 mcg/kg/h and the patient is also on the Nimbex drip at 1.5 mcg/kg per minute. The patient is adequately sedated paralyzed. The patient is hemodynamically stable. The patient is afebrile. She is producing adequate urine output in the order of 30- 40 mL an hour. On a mechanical ventilator, she is an assist-control mode with a rate of 26, tidal volume of 350, and this was reduced yesterday DrIsis 325 and FiO2 is currently at 80% with a PEEP of 18. The blood gases from today shows a pH of 7.26 with a pCO2 of 66 and pO2 of 74. Chest x-ray showing worsening in the subcutaneous emphysema. No evidence of any pneumothorax. Clinically, the subcutaneous emphysema is also worse. The peak pressure 37. Static pressures 36. The patient has no significant orotracheal secretions. ET tube is in a good location on today's chest x-ray. The patient is covered empirically with IV cefepime. All of the cultures are negative for now. Meanwhile, inflammatory markers are being monitored on a periodic basis. LDH is down to 599 and a CRP level is at 5.3. The patient remains on Decadron 6 mg IV every 24 hours. The patient is also on long-term anticoagulation and I switched her to Eliquis milligrams by mouth twice a day. Her electrolytes showed BUN of 35 with a creatinine of 0.7, resident electrodes are all within normal limits. Serum bicarb is up to 31. The white cell count today is at 15.8 hemoglobin of 10.6. The patient is tolerating enteral feeding for nutritional support and the patient is currently on vital high protein at the rate of 24 mL an hour. I updated the yesterday over the phone and had a lengthy discussion with him and explained to him the ongoing condition. In general, her condition has remained stable. The patient is not showing any significant progress over the past 24-48 hours. Furthermore, there is evidence of subcutaneous emphysema that has developed as a complication of COVID 19 related infection/pneumonia. 10/01 2021, the patient continues to have extensive subcutaneous emphysema. There is worsening of subcutaneous edema clinically and on today's chest x-ray. Note that there is no evidence of any pneumothorax and ET tube remains in a good location. On today's evaluation, the patient remains sedated on propofol which is currently running at 45 mcg/kg per minute and the fentanyl is running at 1 mcg/kg/h. The patient remains sedated and paralyzed and she is on Nimbex running at 1 mcg/kg per minute. The patient remains on a mechanical ventilator. No ventilator changes were done yesterday. She remains on assist-control at the rate of 26, tidal volume of 325, PEEP is currently at 18 with an FiO2 of 80%. Peak airway pressure is still elevated at 38. No significant orotracheal secretions. The blood gases from today shows a pH of 7.32 with a pCO2 of 67 and pO2 of 64. LDH to from yesterday was 599, CRP was at 5.3, d-dimer is at 2.3. The patient remains on Decadron 6 January grams IV every 24 hours. The patient is in a negative fluid balance of 637 mL over the past 24 hours. She remains on anticoagulation with Eliquis and she is also on empiric antibiotic coverage with IV cefepime. She continues to receive enteral feeding for nutritional support. She is on vital high protein at the rate of 24 mL an hour. No significant progress in her condition. In fact, there is worsening in the subcutaneous emphysema. Otherwise, no pneumothorax, no improvement and chest x-ray findings, no improvement in the blood gas, no improvement in the airway pressures on today's evaluation. She remains sedated and paralyzed. 10/02/2021, the patient is being seen for a follow-up and the patient remains intubated on a mechanical ventilator. She remains on a propofol 50 mcg/kg per minute, fentanyl is still running at 1 mcg/kg/h and Nimbex is running at 1.5 mcg/kg per minute. She remains on essentially the same ventilator settings pH is at the rate of 26 with a tidal volume of 325, her PEEP is currently at 18 with an FiO2 of 80%. The blood gases from this morning shows a pH of 7.27 with a pCO2 of 74 and pO2 of 85. As such, there is some limited improvement in the oxygenation. The chest x-ray from yesterday was showing extensive subcutaneous emphysema and based on that several liters were applied to the chest to the flatus obtain his emphysema clinically the amount of emphysema is less compared to yesterday. The peak airway pressure still elevated around 37-41. A follow- up chest x-ray from today is pending. Meanwhile, the patient remains on Decadron. The patient is also on IV cefepime 2 g every 12 hours and the patient is also on IV Diflucan. The patient remains on anticoagulation with Eliquis 5 mg by mouth twice a day. No fever. No chills. Cultures were all negative. Remains on a white cell count of 13 with a hemoglobin of 9.8 and a platelet count of 250. Is a 44 with a creatinine of 0.6 and the sodium level is at 143. LDH from yesterday was 531 with a CRP level of 4.2. The patient is tolerating enteral feeding for nutritional support. The patient is currently on vitamin H. Rate of 24 mL an hour. Overall fluid balance has been -600 mL over the past 24 hours and the patient shows no significant signs of fluid overload. Progress has been extremely slow with this patient. No significant improvement in the oxygenation. Her condition is essentially at a standstill as the patient has suffered a COVID 19 associated pneumonia/ARDS. 10/03/2021, the patient remains essentially unchanged. In fact I haven't seen much of a progress on this patient's condition over the past 1 week. She remains in ARDS post COVID 19 related pneumonia on the chest x-ray showed diffuse bilateral pulmonary infiltrates along with some subcutaneous emphysema. The patient remains sedated and paralyzed. The patient remains on propofol running at 50 mcg/kg per minute and the patient is also on fentanyl at 1 mcg/kg per minute and the patient is also on Nimbex at 1.5 Ash respiratory kilo gram per minutes. The mechanical ventilator settings essentially unchanged. I was able to drop her FiO2 down to 65%. PEEP is at 18. The Tidal volumes of 325 and the rate is at 26. Peak airway pressure is 41. Chest x-ray is unchanged. This appears emphysema has somewhat improved. angio Catheter replaced in to deflate the edema further. She remains on anticoagulation with Eliquis regarding her lower extremity DVT. Inflammatory markers have not been checked today. Most recent inflammatory markers showed marked drop in the LDH and a CRP. The patient remains on Decadron. The patient remains on Eliquis. Decadron is being used at a dose of 60 mg IV on a daily basis. The patient remains on empiric antibiotic coverage with IV cefepime and Diflucan. He modynamically stable. She is on no pressors. No fever. No chills. Her overall fluid balance has been -221 mL over the past 24 hours. She continues to have some edema in the upper and lower extremities bilaterally. She is tolerating her enteral feeding for nutritional support. She is on vitamin H. The rate of 24 mL an hour. She is having bowel movements with the help of Colace. Cardiac rhythm remains sinus. Her white cell count of 10.1 with a hemoglobin of 9.5. Platelet count is at 252. Creatinine is at 43 with a creatinine of 0.5. Cultures of been all negative. The patient has been on cefepime since 09/28/2021. Objective - Vital Signs Vital signs: Vital Signs Temp 97.7 F 10/03/21 04:00 Pulse 53 L 10/03/21 07:00 Resp 26 H 10/03/21 07:00 BP 117/51 10/03/21 04:00 Pulse Ox 92 L 10/03/21 07:00 Intake & Output 10/02/21 10/03/21 10/03/21 18:59 06:59 18:59 Intake Total 884.243 896.414 Output Total 585 680 Balance 299.243 216.414 Weight 93.3 kg Intake: IV 240 240 .9 240 240 Intake, IV Titration 308.243 320.414 Amount Cisatracurium 200 mg In 200 Sodium Chloride 0.9% 180 ml @ 1 MCG/KG/MIN 5.16 mls/hr IV .Q24H [facility] Rx#: [id number] fentaNYL (PF) 2,500 mcg 108.243 In Sodium Chloride 0.9% 200 ml @ 0.5 MCG/KG/HR 4. 6 mls/hr IV .Q24H [facility] Rx# :[id number] propofoL 1,000 mg In 200 120.414 Empty Bag 1 bag @ Titrate IV .Q0M [facility] Rx#: [id number] Tube Feeding 336 336 Output: Urine 585 680 Other: Voiding Method Indwelling Catheter Indwelling Catheter ABP, PAP, CO, CI - Last Documented Arterial Blood Pressure 115/54 - Exam No acute distress, sedated and paralyzed, with an orally placed endotracheal tube and nasogastric tube. The patient has evidence of subcutaneous emphysema in the neck and anterior chest area and this can be easily palpated on today's evaluation. Head exam was generally normal. There was no scleral icterus or corneal arcus. Mucous membranes were moist. Neck was supple and without jugular venous distension, thyromegaly, or carotid bruits. Carotids were easily palpable bilaterally. There was no adenopathy Lungs were clear to auscultation and percussion, and with normal diaphragmatic excursion. No wheezes or rales were noted. Cardiac exam revealed the PMI to be normally situated and sized. The rhythm was regular and no extrasystoles were noted during several minutes of auscultation. The first and second heart sounds were normal and physiologic splitting of the second heart sound was noted. There were no murmurs, rubs, clicks, or gallops. Abdominal exam revealed normal bowel sounds. The abdomen was soft, non-tender, and without masses, organomegaly, or appreciable enlargement of the abdominal aorta. Examination of the extremities revealed easily palpable radial, femoral and pedal pulses. There was no cyanosis, clubbing or edema. Examination of the skin revealed no evidence of significant rashes, suspicious appearing nevi or other concerning lesions. Neurologic examination cannot be assessed as the patient is currently sedated and paralyzed. - Labs CBC & Chem 7: 10/03/21 04:10 10/03/21 04:10 Labs: Abnormal Lab Results - Last 24 Hours (Table) 10/02/21 10/02/21 10/03/21 Range/Units 09:56 11:46 04:10 RBC 3.51 L (3.80-5.40) m/uL Hgb 9.5 L (11.4-16.0) gm/dL Hct 31.7 L (34.0-46.0) % MCHC 30.0 L (31.0-37.0) g/dL Neutrophils # 8.4 H (1.3-7.7) k/uL Lymphocytes # 0.9 L (1.0-4.8) k/uL ABG pH 7.31 L (7.35-7.45) ABG pCO2 69 H (35-45) mmHg ABG pO2 63 L (83-108) mmHg ABG HCO3 35 H (21-25) mmol/L ABG Total CO2 37 H (19-24) mmol/L ABG O2 Saturation 91.4 L (94-97) % Carbon Dioxide (22-30) mmol/L BUN (7-17) mg/dL Glucose (74-99) mg/dL POC Glucose (mg/dL) 123 H (75-99) mg/dL 10/03/21 10/03/21 Range/Units 04:10 06:01 RBC (3.80-5.40) m/uL Hgb (11.4-16.0) gm/dL Hct (34.0-46.0) % MCHC (31.0-37.0) g/dL Neutrophils # (1.3-7.7) k/uL Lymphocytes # (1.0-4.8) k/uL ABG pH 7.34 L (7.35-7.45) ABG pCO2 64 H (35-45) mmHg ABG pO2 61 L (83-108) mmHg ABG HCO3 34 H (21-25) mmol/L ABG Total CO2 36 H (19-24) mmol/L ABG O2 Saturation 90.9 L (94-97) % Carbon Dioxide 33 H (22-30) mmol/L BUN 43 H (7-17) mg/dL Glucose 162 H (74-99) mg/dL POC Glucose (mg/dL) (75-99) mg/dL Assessment and Plan Plan: 1 Acute hypoxemic respiratory failure/ARDS secondary to coronavirus associated pneumonia, status post intubation, and mechanical ventilation on 09/25/2021.No evidence of pulmonary embolism on CT angiogram. The patient continues to have diffuse bilateral pulmonary infiltrates consistent with COVID 19 related pneumonia. The patient is currently on Decadron 6 mg by mouth on a daily basis. The patient is also on long-term anticoagulation with warfarin and INR is therapeutic for now. Anti-coagulation was given to the patient because of an underlying hypercoagulable state. The less, the Doppler of the lower extremity showed a DVT in the left common femoral vein and the patient was started on Eliquis 5 mg by mouth twice a day and warfarin was discontinued. For now, the patient has developed a tiny left apical pneumothorax in addition subcutaneous emphysema that recovered. The peak and static pressures are 41 , there is bilateral subcutaneous emphysema without interval worsening and the patient has bilateral angiocaths. No major changes in her condition. Some limited im provement in her oxygenation. She has an Fio2 of 65 and PEEP is 18 2 acute COVID 19 related pneumonia 3 subcutaneous emphysema involving the neck and the chest in addition to a tiny left apical pneumothorax. 4 acute left lower extremity femoral DVT currently on Eliquis. The patient is known to have a Primary hypercoagulable state in the form of Leiden factor deficiency/factor V deficiency. The patient has been maintained on warfarin on outpatient basis. 5 Prior history of DVT. 6 History of fibromyalgia. 7 History of arthritis. 8 History of degenerative disc disease. 9 Mild transaminitis secondary to coronavirus infection. Plan Continue ventilator support for now. Keep the ventilator settings Keep angiocaths to deflate the subcutaneous emphysema Continue Decadron Continue anticoagulation with Eliquis 5 mg by mouth twice a day Repeat inflammatory markers show improvement IV cefepime 2 g every 12 hours , completed total of 7 day course and then stop. The patient's cultures of been all negative. No pressors enteral feeding for nutritional support No major changes for today I contacted the and I gave a detailed explanation to him regarding her condition. I also contacted the daughter. Unfortunately, not a lot of improvement and has been achieved on this patient's condition over the past 1 week. She continues to be in ARDS with limited improvement in oxygenation over the past. With this being said, her prognosis is extremely poor. On today's evaluation, we'll give the patient and paralytic holiday. Repeat another blood gas probably around noontime and decide if there is any room for further weaning of the FiO2 and PEEP. We'll continue to follow make further recommendations based on her progress. This is a critically care evaluation was done and more than 30 minutes. Time with Patient: Greater than 30
[2021-10-03] MEDS: PANTOPRAZOLE 40 MG/10 ML VIAL IV SCH (08:16)
[2021-10-03] MEDS: dexAMETHasone 2 MG TAB PO SCH (08:21)
[2021-10-03] MEDS: CHLORHEXIDINE GLUCONATE 15 ML CUP MUCOUS MEM SCH ×2 (08:21→19:52)
[2021-10-03] MEDS: ASCORBIC ACID 500 MG TAB PO SCH ×2 (08:21→19:52)
[2021-10-03] MEDS: APIXABAN 5 MG TAB PO SCH ×2 (08:21→19:52)
[2021-10-03] MEDS: ZINC SULFATE 220 MG CAP PO SCH (08:21)
[2021-10-03] MEDS: NOREPINEPHRINE 8 MG in SODIUM CHLORIDE 0.9% 250 ML IV SCH ×2 (08:22→19:39)
[2021-10-03] MEDS: SODIUM CHLORIDE 0.9% 1,000 ML IV SCH (08:24)
[2021-10-03] MEDS: CEFEPIME 2 GM in SODIUM CHLORIDE 0.9% 100 ML IVPB SCH ×2 (08:26→19:52)
[2021-10-03] MEDS: ERGOCALCIFEROL 1,250 MCG (50,000 IU) CAPSULE PO SCH (08:38)
[2021-10-03] MEDS: CLEVIDIPINE BUTYRATE 25 MG in EMPTY BAG 1 BAG IV SCH ×3 (09:17→21:10)
[2021-10-03] MEDS: ARTIFICIAL TEARS-HYPROMELLOSE DROPS 15 ML BTL BOTH EYES SCH ×4 (09:32→22:35)
[2021-10-03 12:14] LABS: ABG Base Excess 8.4 mmol/L; ABG HCO3 35 mmol/L (21-25); ABG Oxygen Saturation 89.2 % (94-97); ABG PH 7.28 (7.35-7.45); ABG PO2 60 mmHg (83-108); ABG TCO2 37 mmol/L (19-24)
[2021-10-03 12:15] LABS: ABG PCO2 74 mmHg (35-45)
[2021-10-03] MEDS: FLUCONAZOLE IN NACL,ISO-OSM 100 MG in SALINE 1 50ML.BAG IVPB SCH (12:40)
[2021-10-03 12:53] LABS: Glucose,Whole Blood 195 mg/dL (75-99)
[2021-10-03 14:18] LABS: Glucose,Whole Blood 216 mg/dL (75-99)
[2021-10-03] MEDS: INSULIN ASPART (NovoLOG) 100 UNIT/ML VIAL SQ SCH ×2 (14:20→18:29)
--- NOTE | 2021-10-03 17:31 | PN ---
PROGRESS NOTE DATE OF SERVICE: 10/03/2021 This 61-year-old woman was admitted with Covid-19 infection with Covid-19 bilateral interstitial pneumonia, on mechanical ventilation. The patient is on PEEP of 18. The patient also had left DVT. Dr. Harris is planning weaning at this time. Most recent chest x-ray which was reviewed personally by me showed significant bilateral interstitial pneumonia highly suggestive of Covid-19, predominantly lower lobes. Patient has got acute respiratory acidosis also. PAST MEDICAL HISTORY: Reviewed. REVIEW OF SYSTEMS: Could not be taken, the patient is mechanically sedated. CURRENT MEDICATIONS: Reviewed include Eliquis, vitamin C, cefepime, Peridex. Doses and other medications are reviewed. PHYSICAL EXAMINATION: Patient is mechanically ventilated. Pulse 75, blood pressure is 149/57, respiration 26, temperature normal, pulse ox 91% on mechanical ventilation. HEENT: Conjunctivae normal. Oral mucosa moist. NECK: No jugular venous distention. No lymph node enlargement. CARDIOVASCULAR: S1, S2, muffled. No S3, no S4, RESPIRATORY: Diminished breath sounds at the bases. A few scattered rhonchi and crackles. ABDOMEN: Soft, nontender. LEGS: No edema, no swelling. NERVOUS SYSTEM: No focal deficits. LABS: Accu-Cheks noted. WBC 10.2, hemoglobin 9.6. Chest x-ray reviewed personally. ASSESSMENT: 1. Acute Covid-19 infection with acute Covid-19 bilateral interstitial pneumonia with acute hypoxic hypercarbic respiratory failure on mechanical ventilation. 2. Subcutaneous emphysema of the neck as well as left pneumothorax less than 5%. 3. Acute left leg deep vein thrombosis. 4. Acute respiratory acidosis. 5. Primary hypercoagulable state and factor 5 deficiency. 6. Mild transaminitis, possibly secondary to Covid-19. 7. History of DVT. 8. History of DJD. 9. History of fibromyalgia. 10.Increased WBC. 11.Anemia of undetermined etiology. 12.Elevated inflammatory markers of Covid-19. 13.Obesity with body mass index of 36.4. 14.History of pneumonia. 15.History of cholecystectomy. 16.FULL CODE. RECOMMENDATIONS: Recommend to continue current management, continue symptomatic treatment. Continue with bronchodilators. Continue with broad-spectrum IV antibiotics. Continue mechanical ventilation. Cultures are negative so far. Further weaning events per Pulmonary. Closely monitor. Further recommendations to follow. MMODL / IJN: [id number] /
[2021-10-03 17:44] LABS: Glucose,Whole Blood 240 mg/dL (75-99)
[2021-10-03 23:52] LABS: Glucose,Whole Blood 168 mg/dL (75-99)
[2021-10-04] MEDS: fentaNYL (PF) 2,500 MCG in SODIUM CHLORIDE 0.9% 200 ML IV SCH (01:16)
[2021-10-04] MEDS: SODIUM CHLORIDE 0.9% 1,000 ML IV SCH (01:18)
[2021-10-04] MEDS: CISATRACURIUM 200 MG in SODIUM CHLORIDE 0.9% 180 ML IV SCH ×2 (01:33→02:18)
[2021-10-04 01:55] LABS: Potassium 4.1 mmol/L (3.5-5.1)
[2021-10-04] MEDS: INSULIN ASPART (NovoLOG) 100 UNIT/ML VIAL SQ SCH ×5 (02:18→23:58)
[2021-10-04 04:55] LABS: Basophils # (A) 0.1 k/uL (0-0.2); Basophils % (A) 1 %; Eosinophils # (A) 0.1 k/uL (0-0.7); Eosinophils % (A) 1 %; HCT 29.5 % (34.0-46.0); HGB 9.2 gm/dL (11.4-16.0); Hypochromasia Moderate; Lymphocytes % (A) 9 %; MCHC 31.3 g/dL (31.0-37.0); MCV 89.4 fL (80.0-100.0); Mean Platelet Volume 9.1; Monocytes # (A) 0.7 k/uL (0-1.0); Monocytes % (A) 7 %; Neutrophils # (A) 8.8 k/uL (1.3-7.7); Neutrophils % (A) 82 %; Platelet Count 241 k/uL (150-450); RDW 15.3 % (11.5-15.5); WBC 10.8 k/uL (3.8-10.6)
[2021-10-04 05:27] LABS: ALT 48 U/L (4-34); AST 29 U/L (14-36); African American GFR (CKD) >90 (>60 ml/min/1.73 sqM); Albumin 2.1 g/dL (3.5-5.0); Alkaline Phosphatase 48 U/L (38-126); Anion Gap -2 mmol/L; Blood Urea Nitrogen 35 mg/dL (7-17); Calcium 8.4 mg/dL (8.4-10.2); Carbon Dioxide 35 mmol/L (22-30); Chloride 107 mmol/L (98-107); Glucose 133 mg/dL (74-99); Non-African American GFR(CKD) >90 (>60 ml/min/1.73 sqM); Potassium 3.9 mmol/L (3.5-5.1); Sodium 140 mmol/L (137-145); Total Bilirubin 0.4 mg/dL (0.2-1.3); Total Protein 4.7 g/dL (6.3-8.2)
[2021-10-04 05:36] LABS: ABG Base Excess 9.6 mmol/L; ABG HCO3 35 mmol/L (21-25); ABG Oxygen Saturation 94.3 % (94-97); ABG PCO2 59 mmHg (35-45); ABG PH 7.38 (7.35-7.45); ABG PO2 69 mmHg (83-108); ABG TCO2 37 mmol/L (19-24)
[2021-10-04 05:38] LABS: Allen Test Performed? no
--- NOTE | 2021-10-04 07:21 | XR ---
EXAMINATION TYPE: XR chest 1V portable DATE OF EXAM: 10/04/2021 COMPARISON: 10/03/2021 INDICATION: Mechanical ventilator difficulty breathing TECHNIQUE: Single frontal view of the chest is obtained. FINDINGS: The heart size is normal. The pulmonary vasculature is indistinct. Diffuse increased lung markings are present bilaterally Endotracheal tube tip is above the jahaira. Left-sided central venous catheter is present with the tip in the distal superior vena cava region. Nasogastric tube transverses the thorax. Extensive subcutan eous emphysema is present. No pneumothorax. IMPRESSION: 1. Diffuse increased lung markings are nonspecific but can be compatible with RDS and atypical pneumo lanie. 2. multiple lines and catheters discussed above.
[2021-10-04] MEDS: dexAMETHasone 2 MG TAB PO SCH (10:25)
[2021-10-04] MEDS: PANTOPRAZOLE 40 MG/10 ML VIAL IV SCH (10:25)
[2021-10-04] MEDS: ZINC SULFATE 220 MG CAP PO SCH (10:25)
[2021-10-04] MEDS: APIXABAN 5 MG TAB PO SCH ×2 (10:25→20:18)
[2021-10-04] MEDS: ASCORBIC ACID 500 MG TAB PO SCH ×2 (10:25→20:18)
[2021-10-04] MEDS: CHLORHEXIDINE GLUCONATE 15 ML CUP MUCOUS MEM SCH ×2 (10:26→20:18)
[2021-10-04] MEDS: CEFEPIME 2 GM in SODIUM CHLORIDE 0.9% 100 ML IVPB SCH ×2 (10:27→20:18)
[2021-10-04] MEDS: ARTIFICIAL TEARS-HYPROMELLOSE DROPS 15 ML BTL BOTH EYES SCH ×4 (10:27→23:05)
[2021-10-04 11:26] LABS: Glucose,Whole Blood 134 mg/dL (75-99)
[2021-10-04] MEDS: FLUCONAZOLE IN NACL,ISO-OSM 100 MG in SALINE 1 50ML.BAG IVPB SCH (12:13)
--- NOTE | 2021-10-04 14:57 | P.PN ---
Subjective Progress Note Date: 10/04/21 Principal diagnosis: Acute hypoxic respiratory failure secondary to COVID-19 pneumonia 10/03/2021, the patient remains essentially unchanged. In fact I haven't seen much of a progress on this patient's condition over the past 1 week. She remains in ARDS post COVID 19 related pneumonia on the chest x-ray showed diffuse bilateral pulmonary infiltrates along with some subcutaneous emphysema. The patient remains sedated and paralyzed. The patient remains on propofol running at 50 mcg/kg per minute and the patient is also on fentanyl at 1 mcg/kg per minute and the patient is also on Nimbex at 1.5 Ash respiratory kilo gram per minutes. The mechanical ventilator settings essentially unchanged. I was able to drop her FiO2 down to 65%. PEEP is at 18. The Tidal volumes of 325 and the rate is at 26. Peak airway pressure is 41. Chest x-ray is unchanged. This appears emphysema has somewhat improved. angio Catheter replaced in to deflate the edema further. She remains on anticoagulation with Eliquis regarding her lower extremity DVT. Inflammatory markers have not been checked today. Most recent inflammatory markers showed marked drop in the LDH and a CRP. The patient remains on Decadron. The patient remains on Eliquis. Decadron is being used at a dose of 60 mg IV on a daily basis. The patient remains on empiric antibiotic coverage with IV cefepime and Diflucan. Hemodynamically stable. She is on no pressors. No fever. No chills. Her overall fluid balance has been -221 mL over the past 24 hours. She continues to have some edema in the upper and lower extremities bilaterally. She is tolerating her enteral feeding for nutritional support. She is on vitamin H. The rate of 24 mL an hour. She is having bowel movements with the help of Col ricky. Cardiac rhythm remains sinus. Her white cell count of 10.1 with a hemoglobin of 9.5. Platelet count is at 252. Creatinine is at 43 with a creatinine of 0.5. Cultures of been all negative. The patient has been on cefepime since 09/28/2021. Patient was reevaluated today on 10/04/2021, patient remains in the ICU, intubated and mechanically ventilated. Patient was initially intubated on 09/25/2021, her ventilator settings are assist control rate 26, volume 325 FiO2 65% and PEEP is 18. ABG showed a pO2 of 69 pCO2 of 59 pH of 7.38. Respiratory rate was increased to 30 and the flow rate was cut down to 50 L/m. Patient remains on propofol at 60 mcg/kg/m Nimbex at 2 mcg/kg/m fentanyl 1 mcg/kg/h, and on clevidipine at 4 mg per hour. Patient is receiving enteral feeding vital HP at . Patient is on Decadron 6 mg IV push daily, she is on Eliquis because she was diagnosed as having left lower extremity deep vein thrombosis. Chest x-ray continues to show bilateral interstitial infiltrates, subcu emphysema, adequate positioning of the endotracheal tube, and that catheter/triple-lumen catheter. Patient is sedated and paralyzed. WBC count is 10.8 hemoglobin is 9.2. Electrolytes are normal renal profile is normal liver enzymes are relatively unremarkable. Slightly elevated ALT 48, blood sugar is 134 today. Objective - Vital Signs Vital signs: Vital Signs Temp 97.5 F L 10/04/21 09:15 Pulse 72 10/04/21 13:00 Resp 29 H 10/04/21 13:00 BP 131/54 10/04/21 13:00 Pulse Ox 88 L 10/04/21 13:00 Intake & Output 10/03/21 10/04/21 10/04/21 18:59 06:59 18:59 Intake Total 5510.039 2596.353 548.620 Output Total 1075 745 280 Balance -58.153 550.353 268.620 Weight 94.5 kg 94.5 kg Intake: IV 220 240 120 .9 220 240 120 Intake, IV Titration 442.847 677.353 224.620 Amount Cefepime 2 gm In Sodium 100 Chloride 0.9% 100 ml @ 25 mls/hr IVPB Q12HR [facility] Rx #:[id number] Cisatracurium 200 mg In 75.981 96.105 23.306 Sodium Chloride 0.9% 180 ml @ 1 MCG/KG/MIN 5.16 mls/hr IV .Q24H [facility] Rx#: [id number] Clevidipine Butyrate 25 68.233 60.800 mg In Empty Bag 1 bag @ 1 MG/HR 2 mls/hr IV .Q24H [facility] Rx#:[id number] Fluconazole in NaCl,Iso- 50 50 Osm 100 mg In Saline 1 50ml.bag @ 50 mls/hr IVPB DAILY@1200 [facility] Rx#: [id number] fentaNYL (PF) 2,500 mcg 276.766 In Sodium Chloride 0.9% 200 ml @ 0.5 MCG/KG/HR 4. 6 mls/hr IV .Q24H [facility] Rx# :[id number] propofoL 1,000 mg In 248.633 243.682 51.314 Empty Bag 1 bag @ Titrate IV .Q0M [facility] Rx#: [id number] Tube Feeding 264 288 144 Other 90 90 60 Output: Urine 1075 745 280 Other: Voiding Method Indwelling Catheter Indwelling Catheter Indwelling Catheter ABP, PAP, CO, CI - Last Documented Arterial Blood Pressure 122/47 - Exam Physical Exam: Revealed a 61-year-old female in no distress. Intubated, sedated and paralyzed. Head: Atraumatic, normocephalic, endotracheal tube and orogastric tube is intact. There is evidence of subcutaneous emphysema in the neck region and anterior chest wall. HEENT:[Neck is supple.] [No neck masses.] [No thyromegaly.] [No JVD.] Subcutaneous emphysema is noted. Chest: [Symmetrical chest expansion crackles at the bases bilaterally. Cardiac Exam: [Distant S1 and S2, no S3 gallop. Abdomen: [Soft, nontender, no megaly, no rebound, no guarding, normal bowel sounds.] Extremities: [No clubbing, trace of bipedal edema, no cyanosis.] Good pulses bi laterally. Neurological Exam: Cannot assess, patient is sedated and paralyzed. Psychiatric: Cannot assess patient is sedated and paralyzed. Skin: No rashes. - Labs CBC & Chem 7: 10/04/21 04:40 10/04/21 04:40 Labs: Abnormal Lab Results - Last 24 Hours (Table) 10/03/21 10/03/21 10/04/21 Range/Units 17:43 23:50 01:30 WBC (3.8-10.6) k/uL RBC (3.80-5.40) m/uL Hgb (11.4-16.0) gm/dL Hct (34.0-46.0) % Neutrophils # (1.3-7.7) k/uL ABG pCO2 (35-45) mmHg ABG pO2 (83-108) mmHg ABG HCO3 (21-25) mmol/L ABG Total CO2 (19-24) mmol/L Carbon Dioxide 35 H (22-30) mmol/L BUN (7-17) mg/dL Glucose (74-99) mg/dL POC Glucose (mg/dL) 240 H 168 H (75-99) mg/dL ALT (4-34) U/L Total Protein (6.3-8.2) g/dL Albumin (3.5-5.0) g/dL 10/04/21 10/04/21 10/04/21 Range/Units 04:40 04:40 05:30 WBC 10.8 H (3.8-10.6) k/uL RBC 3.30 L (3.80-5.40) m/uL Hgb 9.2 L (11.4-16.0) gm/dL Hct 29.5 L (34.0-46.0) % Neutrophils # 8.8 H (1.3-7.7) k/uL ABG pCO2 59 H (35-45) mmHg ABG pO2 69 L (83-108) mmHg ABG HCO3 35 H (21-25) mmol/L ABG Total CO2 37 H (19-24) mmol/L Carbon Dioxide 35 H (22-30) mmol/L BUN 35 H (7-17) mg/dL Glucose 133 H (74-99) mg/dL POC Glucose (mg/dL) (75-99) mg/dL ALT 48 H (4-34) U/L Total Protein 4.7 L (6.3-8.2) g/dL Albumin 2.1 L (3.5-5.0) g/dL 10/04/21 Range/Units 11:25 WBC (3.8-10.6) k/uL RBC (3.80-5.40) m/uL Hgb (11.4-16.0) gm/dL Hct (34.0-46.0) % Neutrophils # (1.3-7.7) k/uL ABG pCO2 (35-45) mmHg ABG pO2 (83-108) mmHg ABG HCO3 (21-25) mmol/L ABG Total CO2 (19-24) mmol/L Carbon Dioxide (22-30) mmol/L BUN (7-17) mg/dL Glucose (74-99) mg/dL POC Glucose (mg/dL) 134 H (75-99) mg/dL ALT (4-34) U/L Total Protein (6.3-8.2) g/dL Albumin (3.5-5.0) g/dL Assessment and Plan Assessment: Impression: Acute hypoxic respiratory failure secondary to COVID-19 pneumonia and complicated with ARDS. Patient was intubated on 09/25/2021. CT angiogram was negative for pulmonary embolism, however the patient was found to have DVT and she is on Eliquis. Patient continues to have relatively high peak airway pressure and plateau pressure. She has subcutaneous emphysema, this is a complication from COVID-19 pneumonia. Acute COVID-19 pneumonia Subcutaneous emphysema Acute left lower extremity DVT, on Eliquis. Prior history of DVT History of fibromyalgia Degenerative joint disease Mildly elevated liver enzymes secondary to cardona virus infection. Recommendation: Continue ventilatory support. Adjust on daily basis based on ABG and based on airway mechanics. Continue nutritional support/enteral feeding Continue to monitor closely the subcutaneous emphysema Continue GI and DVT prophylaxis, patient is on Protonix is also on Eliquis. Continue cefepime until she finishes a full course then discontinue. Continue COVID-19 cocktail. Continue to monitor inflammatory markers and address accordingly Continue Decadron. Prognosis remains relatively guarded Patient is critically ill. Critical care time is over 30 minutes. Time with Patient: Greater than 30
[2021-10-04] MEDS: DOCUSATE ORAL SOLN 100 MG/10 ML CUP PO PRN (17:30)
[2021-10-04 17:36] LABS: Glucose,Whole Blood 197 mg/dL (75-99)
[2021-10-04] MEDS: CLEVIDIPINE BUTYRATE 25 MG in EMPTY BAG 1 BAG IV SCH ×3 (19:05→22:23)
[2021-10-04] MEDS ORDERED: Potassium Replacement Protocol 1 EACH MISC MISCELLANE PRN (20:57)
[2021-10-04] MEDS ORDERED: POTASSIUM BICARBONATE/CIT AC 20 MEQ TABLET.EFF NG-TUBE SCH (21:00)
[2021-10-04] MEDS: NOREPINEPHRINE 8 MG in SODIUM CHLORIDE 0.9% 250 ML IV SCH (23:04)
[2021-10-04 23:42] LABS: Glucose,Whole Blood 177 mg/dL (75-99)
[2021-10-05] MEDS: CLEVIDIPINE BUTYRATE 25 MG in EMPTY BAG 1 BAG IV SCH ×6 (00:08→22:27)
[2021-10-05] MEDS: SODIUM CHLORIDE 0.9% 1,000 ML IV SCH (01:41)
[2021-10-05] MEDS: CISATRACURIUM 200 MG in SODIUM CHLORIDE 0.9% 180 ML IV SCH ×2 (01:53→20:01)
[2021-10-05] MEDS: fentaNYL (PF) 2,500 MCG in SODIUM CHLORIDE 0.9% 200 ML IV SCH (02:04)
--- NOTE | 2021-10-05 02:43 | P.PN ---
Subjective Progress Note Date: 10/04/21 This is a 61-year-old female who was recently admitted with acute COVID-19 pneumonia with acute COVID-19 bilateral interstitial pneumonia and also with transaminitis and being closely monitored. Patient remains in the ICU and currently intubated and sedated with an FiO2 of 70% and PEEP is 18. 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 Patient did have a venous Doppler study done recently which showed left leg DVT and patient is maintained on Eliquis will continue. Patient also continues on empiric antibiotics and awaiting for sputum culture finalized. Patient was started on IV cefepime and will continue. Patient is also continued on oral dexamethasone along with vitamin and zinc supplements and will continue. Patient with some mild volume overload and given a dose of IV Lasix push today. 09/29/2021 Patient is seen and evaluated this morning continues to be closely monitored in the ICU and continues to be on mechanical ventilation and sedated. FiO2 was increased at 80% with a PEEP of 18 and oxygen saturations between 87-91%. Patient developing subcutaneous emphysema in the neck and chest wall area and chest x-ray today shows bilateral multifocal and confluent opacification is redemonstrated consistent with COVID-19 infection with a new small left apical pneumothorax estimated under 5% with new pneumomediastinum and recurrent overlying subcutaneous emphysema noted. Patient is white blood count mildly elevated at 16.1 and is continued on oral dexamethasone along with oral eliquis for anticoagulation. Patient continues to be on IV cefepime and blood and sputum cultures are negative thus far. 09/30/2021 Patient is seen today continues to be closely monitored in the ICU with multiple medical consultations following. Patient continues to be mechanically intubated and sedated with continued subcutaneous emphysema noted. Chest xray shows a trace left apical pneumothorax that is minimally smaller 7mm versus 1cm previously, extensive bilateral subcutaneous emphysema persists and diffuse interstitial changes and bilateral patchy opacities persist with slight improvement in aeration in the lower lungs. Per nursing staff corbin was clogged with copious amounts of white discharge and will add diflucan and corbin catheter has been changed and draining adequately. Patient continues on IV cefepime. Patient tolerating tube feeds and will continue. 10/01/2021 Patient is seen and evaluated in follow up this morning and continues to be closely monitored. Multiple medical consultations following and patient c ontinues to be on mechanical vent and sedated. Patient continues on IV Cefepime and diflucan. Patient chest xray today shows stable extensive subcutaneous emphysema, no pneumothorax, and patchy bilateral lung infiltrates remain present. INflammatory markers trending down. 10/04/2021 Patient is seen in follow-up continues to be closely monitored in the ICU. Patient remains on mechanical vent with an FI02 of 65% and peep is 18. Weaning trials being attempted with pulmonary black top raker following closely. Patient continues with extensive subq emphysema noted on exam. Review of systems: Unable to obtain as patient is mechanically intubated and sedated Labs: WBC is 10.8, hemoglobin is 9.2, platelets are 241, sodium is 140, potassium 3.9, BUN 35, creatinine 0.57, calcium 8.4 Active Medications Apixaban (Apixaban 5 Mg Tab) 5 mg PO BID [facility]; Protocol Last Admin: 10/04/21 10:25 Dose: 5 mg Documented by: Artificial Tears (Artificial Tears-Hypromellose Drops 15 Ml Btl) 2 drops BOTH EYES QID [facility] Last Admin: 10/04/21 16:37 Dose: 2 drops Documented by: Ascorbic Acid (Ascorbic Acid 500 Mg Tab) 500 mg PO BID [facility] Last Admin: 10/04/21 10:25 Dose: 500 mg Documented by: Chlorhexidine Gluconate (Chlorhexidine Gluconate 15 Ml Cup) 15 ml MUCOUS MEM BID [facility] Last Admin: 10/04/21 10:26 Dose: 15 ml Documented by: Dexamethasone (Dexamethasone 2 Mg Tab) 6 mg PO DAILY [facility] Last Admin: 10/04/21 10:25 Dose: 6 mg Documented by: Docusate Sodium (Docusate Oral Soln 100 Mg/10 Ml Cup) 100 mg PO DAILY PRN PRN Reason: Constipation Last Admin: 10/03/21 14:39 Dose: 100 mg Documented by: Ergocalciferol (Ergocalciferol 1,250 Mcg (50,000 Iu) Capsule) 1,250 mcg PO MORRIS [facility] Last Admin: 10/03/21 08:38 Dose: Not Given Documented by: Propofol 1,000 mg/ IV Solution 100 mls @ 0 mls/hr IV .Q0M [facility]; Protocol Last Admin: 10/04/21 16:36 Dose: 50 mcg/kg/min, 28.35 mls/hr Documented by: Cisatracurium Besylate 200 mg/ (Sodium Chloride) 200 mls @ 5.16 mls/hr IV .Q24H [facility]; Protocol Last Titration: 10/04/21 09:00 Dose: 2 mcg/kg/min, 10.32 mls/hr Documented by: Cefepime HCl 2 gm/ Sodium (Chloride) 100 mls @ 25 mls/hr IVPB Q12HR [facility] Last Admin: 10/04/21 10:27 Dose: 25 mls/hr Documented by: Sodium Chloride (Saline 0.9%) 1,000 mls @ 20 mls/hr IV .Q24H [facility] Last Admin: 10/04/21 01:18 Dose: 20 mls/hr Documented by: Fentanyl Citrate 2,500 mcg/ (Sodium Chloride) 250 mls @ 4.6 mls/hr IV .Q24H [facility]; Protocol Last Titration: 10/04/21 04:29 Dose: 1 mcg/kg/hr, 9.2 mls/hr Documented by: Norepinephrine Bitartrate 8 mg (/ Sodium Chloride) 258 mls @ 8.901 mls/hr IV .Q24H [facility]; Protocol Last Admin: 10/03/21 19:39 Dose: Not Given Documented by: Fluconazole/Sodium Chloride (100 mg/ IV Solution) 50 mls @ 50 mls/hr IVPB DAILY@1200 [facility] Last Admin: 10/04/21 12:13 Dose: 50 mls/hr Documented by: Clevidipine 25 mg/ IV Solution 50 mls @ 2 mls/hr IV .Q24H [facility]; Protocol Last Titration: 10/04/21 03:41 Dose: Infused Documented by: Insulin Aspart (Insulin Aspart (Novolog) 100 Unit/Ml Vial) 0 unit SQ Q6HR [facility]; Protocol Last Admin: 10/04/21 12:12 Dose: 1 unit Documented by: Miscellaneous Information (Pneumonia Protocol Utilized 1 Each Misc) 1 each PO ONCE PRN PRN Reason: Per Protocol Naloxone HCl (Naloxone 0.4 Mg/Ml 1 Ml Vial) 0.2 mg IV Q2M PRN PRN Reason: Opioid Reversal Pantoprazole Sodium (Pantoprazole 40 Mg/10 Ml Vial) 40 mg IV DAILY [facility] Last Admin: 10/04/21 10:25 Dose: 40 mg Documented by: Zinc Sulfate (Zinc Sulfate 220 Mg Cap) 220 mg PO DAILY [facility] Last Admin: 10/04/21 10:25 Dose: 220 mg Documented by: Physical Exam: Gen: This is a this is a 61-year-old female currently sedated and intubated. Temp is 97.5F, pulse is 52, respirations are 26, arterial blood pressure is 122/47, blood pressure is 102/54 oxygen saturation is 96% on 65% mechanical ventilation with a PEEP of 18 HEENT: Head is atraumatic, normocephalic. Pupils equal, round. Sclerae is anicteric. NECK: Supple. No JVD. No lymphadenopathy. No thyromegaly. subcutaneous emphysema noted in the neck and chest wall area bilaterally. LUNGS: Diminished breath sounds bilaterally with coarse rhonchi and crackles noted. No intercostal retractions. HEART: S1, S2 are muffled ABDOMEN: Soft. Bowel sounds are present. No masses. No tenderness. EXTREMITIES: No pedal edema. No calf tenderness. Bilateral upper extremity edema noted NEUROLOGICAL: Patient is currently intubated and sedated Assessment: Acute COVID-19 infection with acute COVID-19 bilateral interstitial pneumonia with hypoxic hypercarbic respiratory failure on mechanical vent Subcutaneous emphysema of the neck and chest with a left apical pneumothorax less than 5% Acute left leg deep vein thrombosis Acute respiratory acidosis Primary hypercoagulable state and factor V week deficiency Possible candidiasis secondary to prolonged indwelling Corbin catheter Mild transaminitis, possibly secondary to COVID-19 History of DVT History of degenerative joint disease History of fibromyalgia Acute respiratory acidosis Increased white blood count anemia, of undetermined etiology Elevated inflammatory markers of COVID-19 Obesity with a body mass index of 38.1 History of pneumonia History of cholecystectomy Full code Plan: Recommend to continue with current medications and follow along closely with multiple medical consultations. Prognosis remains guarded with multiple complex medical issues noted. Patient continues on mechanical ventilation with an FiO2 of 65% and PEEP is 18. Attempts at weaning trials being done. Recommend continue with current medications and patient has been maintained on IV cefepime and sputum cultures and Blood cultures thus far remain negative. Diflucan as well. Recommend patient to continue on Eliquis and monitor closely for any si gns of bleeding. Chest x-ray reviewed as mentioned above. Recommend repeat labs and continued close monitoring. Again due to multiple complex medical issues prognosis is quite guarded. Objective - Vital Signs Vital signs: Vital Signs Temp 97.9 F 10/04/21 04:00 Pulse 53 L 10/04/21 07:00 Resp 26 H 10/04/21 07:00 BP 98/55 10/04/21 07:00 Pulse Ox 96 10/04/21 07:00 Intake & Output 10/03/21 10/04/21 10/04/21 18:59 06:59 18:59 Intake Total 1594.269 9363.353 44 Output Total 1075 745 40 Balance -58.153 550.353 4 Weight 94.5 kg Intake: IV 220 240 20 .9 220 240 20 Intake, IV Titration 442.847 677.353 Amount Cisatracurium 200 mg In 75.981 96.105 Sodium Chloride 0.9% 180 ml @ 1 MCG/KG/MIN 5.16 mls/hr IV .Q24H [facility] Rx#: [id number] Clevidipine Butyrate 25 68.233 60.800 mg In Empty Bag 1 bag @ 1 MG/HR 2 mls/hr IV .Q24H [facility] Rx#:[id number] Fluconazole in NaCl,Iso- 50 Osm 100 mg In Saline 1 50ml.bag @ 50 mls/hr IVPB DAILY@1200 [facility] Rx#: [id number] fentaNYL (PF) 2,500 mcg 276.766 In Sodium Chloride 0.9% 200 ml @ 0.5 MCG/KG/HR 4. 6 mls/hr IV .Q24H [facility] Rx# :[id number] propofoL 1,000 mg In 248.633 243.682 Empty Bag 1 bag @ Titrate IV .Q0M [facility] Rx#: [id number] Tube Feeding 264 288 24 Other 90 90 Output: Urine 1075 745 40 Other: Voiding Method Indwelling Catheter Indwelling Catheter ABP, PAP, CO, CI - Last Documented Arterial Blood Pressure 101/46 - Labs CBC & Chem 7: 10/04/21 04:40 10/04/21 04:40 Labs: Abnormal Lab Results - Last 24 Hours (Table) 10/03/21 10/03/21 10/03/21 Range/Units 12:08 12:51 14:16 WBC (3.8-10.6) k/uL RBC (3.80-5.40) m/uL Hgb (11.4-16.0) gm/dL Hct (34.0-46.0) % Neutrophils # (1.3-7.7) k/uL ABG pH 7.28 L (7.35-7.45) ABG pCO2 74 H* (35-45) mmHg ABG pO2 60 L (83-108) mmHg ABG HCO3 35 H (21-25) mmol/L ABG Total CO2 37 H (19-24) mmol/L ABG O2 Saturation 89.2 L (94-97) % Carbon Dioxide (22-30) mmol/L BUN (7-17) mg/dL Glucose (74-99) mg/dL POC Glucose (mg/dL) 195 H 216 H (75-99) mg/dL ALT (4-34) U/L Total Protein (6.3-8.2) g/dL Albumin (3.5-5.0) g/dL 10/03/21 10/03/21 10/04/21 Range/Units 17:43 23:50 01:30 WBC (3.8-10.6) k/uL RBC (3.80-5.40) m/uL Hgb (11.4-16.0) gm/dL Hct (34.0-46.0) % Neutrophils # (1.3-7.7) k/uL ABG pH (7.35-7.45) ABG pCO2 (35-45) mmHg ABG pO2 (83-108) mmHg ABG HCO3 (21-25) mmol/L ABG Total CO2 (19-24) mmol/L ABG O2 Saturation (94-97) % Carbon Dioxide 35 H (22-30) mmol/L BUN (7-17) mg/dL Glucose (74-99) mg/dL POC Glucose (mg/dL) 240 H 168 H (75-99) mg/dL ALT (4-34) U/L Total Protein (6.3-8.2) g/dL Albumin (3.5-5.0) g/dL 10/04/21 10/04/21 10/04/21 Range/Units 04:40 04:40 05:30 WBC 10.8 H (3.8-10.6) k/uL RBC 3.30 L (3.80-5.40) m/uL Hgb 9.2 L (11.4-16.0) gm/dL Hct 29.5 L (34.0-46.0) % Neutrophils # 8.8 H (1.3-7.7) k/uL ABG pH (7.35-7.45) ABG pCO2 59 H (35-45) mmHg ABG pO2 69 L (83-108) mmHg ABG HCO3 35 H (21-25) mmol/L ABG Total CO2 37 H (19-24) mmol/L ABG O2 Saturation (94-97) % Carbon Dioxide 35 H (22-30) mmol/L BUN 35 H (7-17) mg/dL Glucose 133 H (74-99) mg/dL POC Glucose (mg/dL) (75-99) mg/dL ALT 48 H (4-34) U/L Total Protein 4.7 L (6.3-8.2) g/dL Albumin 2.1 L (3.5-5.0) g/dL
[2021-10-05 05:10] LABS: African American GFR (CKD) >90 (>60 ml/min/1.73 sqM); Anion Gap 2 mmol/L; Basophils # (A) 0.1 k/uL (0-0.2); Basophils % (A) 1 %; Blood Urea Nitrogen 35 mg/dL (7-17); Calcium 8.7 mg/dL (8.4-10.2); Carbon Dioxide 35 mmol/L (22-30); Chloride 102 mmol/L (98-107); Eosinophils # (A) 0.1 k/uL (0-0.7); Eosinophils % (A) 1 %; Glucose 147 mg/dL (74-99); HCT 35.3 % (34.0-46.0); HGB 11.2 gm/dL (11.4-16.0); Hypochromasia Moderate; Lymphocytes # (A) 1.5 k/uL (1.0-4.8); Lymphocytes % (A) 8 %; MCH 28.2 pg (25.0-35.0); MCHC 31.6 g/dL (31.0-37.0); MCV 89.2 fL (80.0-100.0); Mean Platelet Volume 8.9; Monocytes # (A) 1.1 k/uL (0-1.0); Monocytes % (A) 6 %; Neutrophils # (A) 15.1 k/uL (1.3-7.7); Neutrophils % (A) 84 %; Non-African American GFR(CKD) >90 (>60 ml/min/1.73 sqM); Platelet Count 358 k/uL (150-450); Potassium 4.1 mmol/L (3.5-5.1); RBC 3.96 m/uL (3.80-5.40); Sodium 139 mmol/L (137-145); WBC 18.1 k/uL (3.8-10.6)
[2021-10-05 06:07] LABS: ABG Base Excess 12.5 mmol/L; ABG HCO3 38 mmol/L (21-25); ABG Oxygen Saturation 90.1 % (94-97); ABG PCO2 63 mmHg (35-45); ABG PH 7.39 (7.35-7.45); ABG TCO2 40 mmol/L (19-24)
[2021-10-05 06:10] LABS: ABG PO2 58 mmHg (83-108); Allen Test Performed? No
[2021-10-05 06:19] LABS: Glucose,Whole Blood 135 mg/dL (75-99)
[2021-10-05] MEDS: INSULIN ASPART (NovoLOG) 100 UNIT/ML VIAL SQ SCH ×3 (06:29→18:07)
--- NOTE | 2021-10-05 06:33 | XR ---
EXAMINATION TYPE: XR chest 1V portable DATE OF EXAM: 10/05/2021 CLINICAL HISTORY: Difficulty breathing progress study. TECHNIQUE: Single AP portable semiupright view of the chest is obtained. COMPARISON: Chest x-ray from one day earlier and older studies. FINDINGS: Stable endotracheal and orogastric tubes. Stable left-sided subclavian central venous cath eter. Persistent bilateral multifocal and confluent increased opacities. Cardiac silhouette size is stable and upper limits of normal. Increasing overlying subcutaneous emphysema is present. There is recurren t tiny left apical pneumothorax estimated under 5%. Pneumomediastinum is redemonstrated. Minimal visu alization of fusion hardware in the cervical spine. IMPRESSION: Recurrent tiny left apical pneumothorax estimated under 5%. Worsening overlying subcutane ous emphysema. Pneumomediastinum redemonstrated. Multifocal and confluent opacities redemonstrated co nsistent with covid-19 infection and/or ARDS are redemonstrated. No significant change from one day marga duncan
[2021-10-05] MEDS: PANTOPRAZOLE 40 MG/10 ML VIAL IV SCH (08:51)
[2021-10-05] MEDS: CHLORHEXIDINE GLUCONATE 15 ML CUP MUCOUS MEM SCH ×2 (08:51→20:43)
[2021-10-05] MEDS: ASCORBIC ACID 500 MG TAB PO SCH ×2 (08:52→20:43)
[2021-10-05] MEDS: APIXABAN 5 MG TAB PO SCH (08:52)
[2021-10-05] MEDS: CEFEPIME 2 GM in SODIUM CHLORIDE 0.9% 100 ML IVPB SCH (08:52)
[2021-10-05] MEDS: dexAMETHasone 2 MG TAB PO SCH (08:52)
[2021-10-05] MEDS: ZINC SULFATE 220 MG CAP PO SCH (08:52)
[2021-10-05] MEDS: ARTIFICIAL TEARS-HYPROMELLOSE DROPS 15 ML BTL BOTH EYES SCH ×4 (08:53→20:43)
[2021-10-05 11:55] LABS: Glucose,Whole Blood 152 mg/dL (75-99)
--- NOTE | 2021-10-05 12:38 | P.PN ---
Subjective Progress Note Date: 10/05/21 Principal diagnosis: Acute hypoxic respiratory failure secondary to COVID-19 pneumonia 10/03/2021, the patient remains essentially unchanged. In fact I haven't seen much of a progress on this patient's condition over the past 1 week. She remains in ARDS post COVID 19 related pneumonia on the chest x-ray showed diffuse bilateral pulmonary infiltrates along with some subcutaneous emphysema. The patient remains sedated and paralyzed. The patient remains on propofol running at 50 mcg/kg per minute and the patient is also on fentanyl at 1 mcg/kg per minute and the patient is also on Nimbex at 1.5 Ash respiratory kilo gram per minutes. The mechanical ventilator settings essentially unchanged. I was able to drop her FiO2 down to 65%. PEEP is at 18. The Tidal volumes of 325 and the rate is at 26. Peak airway pressure is 41. Chest x-ray is unchanged. This appears emphysema has somewhat improved. angio Catheter replaced in to deflate the edema further. She remains on anticoagulation with Eliquis regarding her lower extremity DVT. Inflammatory markers have not been checked today. Most recent inflammatory markers showed marked drop in the LDH and a CRP. The patient remains on Decadron. The patient remains on Eliquis. Decadron is being used at a dose of 60 mg IV on a daily basis. The patient remains on empiric antibiotic coverage with IV cefepime and Diflucan. Hemodynamically stable. She is on no pressors. No fever. No chills. Her overall fluid balance has been -221 mL over the past 24 hours. She continues to have some edema in the upper and lower extremities bilaterally. She is tolerating her enteral feeding for nutritional support. She is on vitamin H. The rate of 24 mL an hour. She is having bowel movements with the help of Col ricky. Cardiac rhythm remains sinus. Her white cell count of 10.1 with a hemoglobin of 9.5. Platelet count is at 252. Creatinine is at 43 with a creatinine of 0.5. Cultures of been all negative. The patient has been on cefepime since 09/28/2021. Patient was reevaluated today on 10/04/2021, patient remains in the ICU, intubated and mechanically ventilated. Patient was initially intubated on 09/25/2021, her ventilator settings are assist control rate 26, volume 325 FiO2 65% and PEEP is 18. ABG showed a pO2 of 69 pCO2 of 59 pH of 7.38. Respiratory rate was increased to 30 and the flow rate was cut down to 50 L/m. Patient remains on propofol at 60 mcg/kg/m Nimbex at 2 mcg/kg/m fentanyl 1 mcg/kg/h, and on clevidipine at 4 mg per hour. Patient is receiving enteral feeding vital HP at . Patient is on Decadron 6 mg IV push daily, she is on Eliquis because she was diagnosed as having left lower extremity deep vein thrombosis. Chest x-ray continues to show bilateral interstitial infiltrates, subcu emphysema, adequate positioning of the endotracheal tube, and that catheter/triple-lumen catheter. Patient is sedated and paralyzed. WBC count is 10.8 hemoglobin is 9.2. Electrolytes are normal renal profile is normal liver enzymes are relatively unremarkable. Slightly elevated ALT 48, blood sugar is 134 today. Patient was reevaluated today on 10/05/2021, patient remains in the ICU, intubated, mechanically ventilated. Patient is on assist control rate of 30, tidal volume is 325, PEEP was cut down to 14, it was initially at 18, FiO2 is 65%. And I plan to taper the FiO2 down if tolerated. ABG earlier today showed a pO2 of 58 pCO2 of 63 pH of 7.39, however her O2 saturation on the monitor. Pulse oximetry is actually 99%. Hence I cut down the PEEP, and kept her on the same FiO2 for now. She seemed to be doing a bit better with lower PEEP. Patient remains on Nimbex at 2 mcg/kg/m fentanyl and 0.5 mcg/kg per hour. Patient is receiving vital HP at 10 mL per hour. And she is on propofol at 40 mcg/kg/m. Peak airway pressure today is 57 plateau pressure is 31. Patient is off clevidipine this morning. And considering her leukocytosis is noted on the WBC count today being 18, I will keep the patient on cefepime for now. Asked x- ray is basically showing no major change. And today I discussed her condition with her daughter over the phone, and recommended a tracheostomy and PEG tube placement, the daughter requested Dr. balbuena to do it. And we will consult Dr. balbuena for that purpose. Not much of a change otherwise over the last 24 hours, patient remains on Eliquis for left lower extremity deep vein thrombosis. A hayward seems to have worsening subcutaneous emphysema today, I went ahead and placed to 14-gauge Angiocaths, one in the left anterior chest and one in the right anterior chest in the subcutaneous tissue. Hoping that will decompress her subcutaneous emphysema. This was done under sterile conditions. Objective - Vital Signs Vital signs: Vital Signs Temp 97.9 F 10/05/21 09:00 Pulse 58 L 10/05/21 11:00 Resp 30 H 10/05/21 11:00 BP 130/69 10/05/21 11:00 Pulse Ox 94 L 10/05/21 11:00 Intake & Output 10/04/21 10/05/21 10/05/21 18:59 06:59 18:59 Intake Total 768.556 4890.029 174.333 Output Total 580 1245 135 Balance 218.620 104.029 39.333 Weight 94.5 kg 95.7 kg Intake: IV 220 260 40 .9 220 260 40 Intake, IV Titration 324.620 919.029 114.333 Amount Cefepime 2 gm In Sodium 100 Chloride 0.9% 100 ml @ 25 mls/hr IVPB Q12HR [facility] Rx #:[id number] Cisatracurium 200 mg In 23.306 159.795 Sodium Chloride 0.9% 180 ml @ 1 MCG/KG/MIN 5.16 mls/hr IV .Q24H [facility] Rx#: [id number] Clevidipine Butyrate 25 260.667 14.333 mg In Empty Bag 1 bag @ 1 MG/HR 2 mls/hr IV .Q24H [facility] Rx#:[id number] Fluconazole in NaCl,Iso- 50 Osm 100 mg In Saline 1 50ml.bag @ 50 mls/hr IVPB DAILY@1200 [facility] Rx#: [id number] fentaNYL (PF) 2,500 mcg 198.567 In Sodium Chloride 0.9% 200 ml @ 0.5 MCG/KG/HR 4. 6 mls/hr IV .Q24H [facility] Rx# :[id number] propofoL 1,000 mg In 151.314 300.000 100 Empty Bag 1 bag @ Titrate IV .Q0M [facility] Rx#: [id number] Tube Feeding 194 140 20 Other 60 30 Output: Urine 580 1245 135 Other: Voiding Method Indwelling Catheter Indwelling Catheter Indwelling Catheter ABP, PAP, CO, CI - Last Documented Arterial Blood Pressure 168/58 - Exam Physical Exam: Revealed a 61-year-old female in no distress. Intubated, sedated and paralyzed. Head: Atraumatic, normocephalic, endotracheal tube and orogastric tube is intact. Worsening subcutaneous emphysema noted in the anterior chest wall area and in the neck area bilaterally. HEENT:[Neck is supple.] [No neck masses.] [No thyromegaly.] [No JVD.] Subcutaneous emphysema is noted. Chest: [Symmetrical chest expansion crackles at the bases bilaterally. Cardiac Exam: [Distant S1 and S2, no S3 gallop. Abdomen: [Soft, nontender, no megaly, no rebound, no guarding, normal bowel sounds.] Extremities: [No clubbing, trace of bipedal edema, no cyanosis.] Good pulses bilaterally. Neurological Exam: Cannot assess, patient is sedated and paralyzed. Psychiatric: Cannot assess patient is sedated and paralyzed. Skin: No rashes. - Labs CBC & Chem 7: 10/05/21 04:22 10/05/21 04:22 Labs: Abnormal Lab Results - Last 24 Hours (Table) 10/04/21 10/04/21 10/05/21 Range/Units 17:33 23:41 04:22 WBC 18.1 H (3.8-10.6) k/uL Hgb 11.2 L (11.4-16.0) gm/dL RDW 16.0 H (11.5-15.5) % Neutrophils # 15.1 H (1.3-7.7) k/uL Monocytes # 1.1 H (0-1.0) k/uL D-Dimer (<0.60) mg/L FEU ABG pCO2 (35-45) mmHg ABG pO2 (83-108) mmHg ABG HCO3 (21-25) mmol/L ABG Total CO2 (19-24) mmol/L ABG O2 Saturation (94-97) % Carbon Dioxide (22-30) mmol/L BUN (7-17) mg/dL Glucose (74-99) mg/dL POC Glucose (mg/dL) 197 H 177 H (75-99) mg/dL C-Reactive Protein (<1.0) mg/dL 10/05/21 10/05/21 10/05/21 Range/Units 04:22 04:22 04:22 WBC (3.8-10.6) k/uL Hgb (11.4-16.0) gm/dL RDW (11.5-15.5) % Neutrophils # (1.3-7.7) k/uL Monocytes # (0-1.0) k/uL D-Dimer 1.69 H (<0.60) mg/L FEU ABG pCO2 (35-45) mmHg ABG pO2 (83-108) mmHg ABG HCO3 (21-25) mmol/L ABG Total CO2 (19-24) mmol/L ABG O2 Saturation (94-97) % Carbon Dioxide 35 H (22-30) mmol/L BUN 35 H (7-17) mg/dL Glucose 147 H (74-99) mg/dL POC Glucose (mg/dL) (75-99) mg/dL C-Reactive Protein 2.1 H (<1.0) mg/dL 10/05/21 10/05/21 10/05/21 Range/Units 05:22 06:17 11:53 WBC (3.8-10.6) k/uL Hgb (11.4-16.0) gm/dL RDW (11.5-15.5) % Neutrophils # (1.3-7.7) k/uL Monocytes # (0-1.0) k/uL D-Dimer (<0.60) mg/L FEU ABG pCO2 63 H (35-45) mmHg ABG pO2 58 L* (83-108) mmHg ABG HCO3 38 H (21-25) mmol/L ABG Total CO2 40 H (19-24) mmol/L ABG O2 Saturation 90.1 L (94-97) % Carbon Dioxide (22-30) mmol/L BUN (7-17) mg/dL Glucose (74-99) mg/dL POC Glucose (mg/dL) 135 H 152 H (75-99) mg/dL C-Reactive Protein (<1.0) mg/dL Assessment and Plan Assessment: Impression: Acute hypoxic respiratory failure secondary to COVID-19 pneumonia and complicated with ARDS. Patient was intubated on 09/25/2021. Acute deep vein thrombosis, on Eliquis. Says involving the left lower extrem ity. Acute COVID-19 pneumonia Subcutaneous emphysema, this is a complication of COVID-19 infection/pneumonia Prior history of DVT History of fibromyalgia Degenerative joint disease Mildly elevated liver enzymes secondary to cardona virus infection. Recommendation: Continue ventilatory support. Patient is now on rate of 30 tidal volume 325 PEEP 14 and FiO2 is at 65%. Continue nutritional support/enteral feeding Continue to monitor closely the subcutaneous emphysema, two 14 gauge Angio catheters were placed in anterior chest wall area. Continue GI and DVT prophylaxis, patient is on Protonix is also on Eliquis. Continue cefepime, we'll extend the course of cefepime mostly because of her leukocytosis today. Continue COVID-19 cocktail. Continue to monitor inflammatory markers and address accordingly Continue Decadron. Prognosis remains relatively guarded Discussed her condition today and updated her daughter of her status. Consulted general surgery for tracheostomy and PEG tube placement Patient is critically ill. Critical care time is over 30 minutes. Time with Patient: Greater than 30
[2021-10-05] MEDS: FLUCONAZOLE IN NACL,ISO-OSM 100 MG in SALINE 1 50ML.BAG IVPB SCH (12:54)
--- NOTE | 2021-10-05 13:30 | P.GSCN ---
<Bernadette Hallman - Last Filed: 10/05/21 12:45> History of Present Illness Consult date: 10/05/21 Reason for Consult: PEG tube and tracheostomy placement Requesting physician: Jose Manuel Ramirez History of present illness: CHIEF COMPLAINT: Shortness of breath HISTORY OF PRESENT ILLNESS: This is a 61-year-old female who presented to the emergency department on 09/23/2021 which complaints of shortness of breath and difficulty breathing since . He is admitted to the ICU with acute hypoxic respiratory failure secondary to COVID-19 pneumonia and complicated with acute respiratory distress syndrome. She was intubated on 09/25/2021. She remains intubated on mechanical ventilation and sedated. She was diagnosed with an acute deep vein thrombosis and is currently on Eliquis. Patient has not been making much improvement and general surgery was consulted for PEG tube placement and tracheostomy. Patient is on assist-control rate of 30, tidal volume is 325, peak cut down to 14, FiO2 is 65% ABG showed pO2 of 58 pCO2 of 63 pH of 7.39 patient remains on Nimbex. PAST MEDICAL HISTORY: Factor V Leiden, DVT, fibromyalgia, pneumonia PAST SURGICAL HISTORY: Cholecystectomy, hysterectomy, carpal tunnel surgery, cervical surgery MEDICATIONS: See list. ALLERGIES: See list. SOCIAL HISTORY: No illicit drug use. REVIEW OF SYSTEMS: Unable to obtain due to intubation and sedation PHYSICAL EXAM: VITAL SIGNS: Reviewed GENERAL: Intubated on mechanical ventilation, sedated. HEENT: No sclera icterus. Atraumatic. Intubated. ABDOMEN: Soft. Obese. Nondistended. NEUROLOGIC: Intubated and sedated. LABORATORY DATA: WBC 18.1 hemoglobin 11.2 platelet count 350,000 d-dimer 1.69 Sodium 139 potassium 4.1 BUN 35 creatinine 0.5 glucose 147 therapy 2.1 IMAGING: Chest x-ray shows recurrent tiny left apical pneumothorax estimated under 5%. Worsening overlying subcutaneous emphysema. Pneumomediastinum redemonstrated. Multifocal and confluent opacities redemonstrated consistent with COVID-19 infection and or ARDS are redemonstrated. No significant change from 1 day earlier. ASSESSMENT: 1. Acute hypoxic respiratory failure secondary to COVID-19 pneumonia and complicated with ARDS currently intubated and on enteral nutrition 2. Requiring tracheostomy and gastrostomy tube secondary to above 3. Left lower extremity DVT currently on Eliquis PLAN: 1. Continue symptomatic and supportive care 2. Hold Eliquis 3. Further recommendations forthcoming per surgeon on timing Thank you for this consultation. The impression and plan of care has been dictated as directed. I performed a history and examination of this patient, discussed the same with the dictator. I agree with the dictator's note ,documented as a scribe. Any additional findings or plans will be noted. Past Medical History Past Medical History: Deep Vein Thrombosis (DVT), Fibromyalgia, Pneumonia Additional Past Medical History / Comment(s): Clotting disorder. arthritis. 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 plate neck Past Psychological History: No Psychological Hx Reported Smoking Status: Never smoker Past Alcohol Use History: None Reported Past Drug Use History: None Reported Medications and Allergies Home Medications Medication Instructions Recorded Confirmed Type Ergocalciferol [Vitamin D2] 50,000 unit PO MORRIS 07/04/20 09/23/21 History Meloxicam [Mobic] 7.5 mg PO DAILY 07/04/20 09/23/21 History Warfarin Sodium [Jantoven] 6 mg PO DAILY 07/04/20 09/23/21 History metHOTREXate sodium [Methotrexate] 20 mg PO FR 07/04/20 09/23/21 History Allergies Allergy/AdvReac Type Severity Reaction Status Date / Time cefaclor [From Ceclor] Allergy Unknown Verified 09/23/21 19:51 cephalexin [From Keflex] Allergy Unknown Verified 09/23/21 19:51 cyclobenzaprine Allergy Unknown Verified 09/23/21 19:51 [From Flexeril] Penicillins Allergy Unknown Verified 09/23/21 19:51 Sulfa (Sulfonamide Allergy Unknown Verified 09/23/21 19:51 Antibiotics) acetaminophen [From Tylenol] AdvReac Rash/Hives Verified 09/23/21 19:51 codeine AdvReac Rash/Hives Verified 09/23/21 19:51 erythromycin base AdvReac Rash/Hives Verified 09/23/21 19:51 Surgical - Exam Vital Signs Temp Pulse Resp BP Pulse Ox 98.5 F 78 16 110/64 80 L 09/23/21 17:29 09/23/21 17:29 09/23/21 17:29 09/23/21 17:29 09/23/21 17:29 Results - Labs 10/05/21 04:22 10/05/21 04:22 Abnormal Lab Results - Last 24 Hours (Table) 10/04/21 10/04/21 10/05/21 Range/Units 17:33 23:41 04:22 WBC 18.1 H (3.8-10.6) k/uL Hgb 11.2 L (11.4-16.0) gm/dL RDW 16.0 H (11.5-15.5) % Neutrophils # 15.1 H (1.3-7.7) k/uL Monocytes # 1.1 H (0-1.0) k/uL D-Dimer (<0.60) mg/L FEU ABG pCO2 (35-45) mmHg ABG pO2 (83-108) mmHg ABG HCO3 (21-25) mmol/L ABG Total CO2 (19-24) mmol/L ABG O2 Saturation (94-97) % Carbon Dioxide (22-30) mmol/L BUN (7-17) mg/dL Glucose (74-99) mg/dL POC Glucose (mg/dL) 197 H 177 H (75-99) mg/dL C-Reactive Protein (<1.0) mg/dL 10/05/21 10/05/21 10/05/21 Range/Units 04:22 04:22 04:22 WBC (3.8-10.6) k/uL Hgb (11.4-16.0) gm/dL RDW (11.5-15.5) % Neutrophils # (1.3-7.7) k/uL Monocytes # (0-1.0) k/uL D-Dimer 1.69 H (<0.60) mg/L FEU ABG pCO2 (35-45) mmHg ABG pO2 (83-108) mmHg ABG HCO3 (21-25) mmol/L ABG Total CO2 (19-24) mmol/L ABG O2 Saturation (94-97) % Carbon Dioxide 35 H (22-30) mmol/L BUN 35 H (7-17) mg/dL Glucose 147 H (74-99) mg/dL POC Glucose (mg/dL) (75-99) mg/dL C-Reactive Protein 2.1 H (<1.0) mg/dL 10/05/21 10/05/21 10/05/21 Range/Units 05:22 06:17 11:53 WBC (3.8-10.6) k/uL Hgb (11.4-16.0) gm/dL RDW (11.5-15.5) % Neutrophils # (1.3-7.7) k/uL Monocytes # (0-1.0) k/uL D-Dimer (<0.60) mg/L FEU ABG pCO2 63 H (35-45) mmHg ABG pO2 58 L* (83-108) mmHg ABG HCO3 38 H (21-25) mmol/L ABG Total CO2 40 H (19-24) mmol/L ABG O2 Saturation 90.1 L (94-97) % Carbon Dioxide (22-30) mmol/L BUN (7-17) mg/dL Glucose (74-99) mg/dL POC Glucose (mg/dL) 135 H 152 H (75-99) mg/dL C-Reactive Protein (<1.0) mg/dL Diabetes panel 10/05/21 Range/Units 04:22 Sodium 139 (137-145) mmol/L Potassium 4.1 (3.5-5.1) mmol/L Chloride 102 (98-107) mmol/L Carbon Dioxide 35 H (22-30) mmol/L BUN 35 H (7-17) mg/dL Creatinine 0.55 (0.52-1.04) mg/dL Glucose 147 H (74-99) mg/dL Calcium 8.7 (8.4-10.2) mg/dL Calcium panel 10/05/21 Range/Units 04:22 Calcium 8.7 (8.4-10.2) mg/dL Pituitary panel 10/05/21 Range/Units 04:22 Sodium 139 (137-145) mmol/L Potassium 4.1 (3.5-5.1) mmol/L Chloride 102 (98-107) mmol/L Carbon Dioxide 35 H (22-30) mmol/L BUN 35 H (7-17) mg/dL Creatinine 0.55 (0.52-1.04) mg/dL Glucose 147 H (74-99) mg/dL Calcium 8.7 (8.4-10.2) mg/dL Adrenal panel 10/05/21 Range/Units 04:22 Sodium 139 (137-145) mmol/L Potassium 4.1 (3.5-5.1) mmol/L Chloride 102 (98-107) mmol/L Carbon Dioxide 35 H (22-30) mmol/L BUN 35 H (7-17) mg/dL Creatinine 0.55 (0.52-1.04) mg/dL Glucose 147 H (74-99) mg/dL Calcium 8.7 (8.4-10.2) mg/dL <Pedrito Nelson - Last Filed: 10/05/21 14:41> History of Present Illness History of present illness: I have personally seen and examined the patient, reviewed the OWNER CONSULTING ENGINEER /PAs history, exam and MDM and agree with the assessment and plan as written. Based on total visit time, I have performed more than 50% of the visit. As above. Patient remains critically ill with Covid pneumonia. Patient's chest x-ray and examination reveals significant subcutaneous emphysema. Small pneumothorax on the left. The patient's PEEP was decreased today and she is maintaining her sats. Will hold eloquis for possible tracheostomy and PEG tube placement as long as the patient's condition remains stable or improving. Called the patient's daughter Carla who I know and she was not available so I left a message and will try her again later. Surgical - Exam Vital Signs Temp Pulse Resp BP Pulse Ox 98.5 F 78 16 110/64 80 L 09/23/21 17:29 09/23/21 17:29 09/23/21 17:29 09/23/21 17:29 09/23/21 17:29 Results - Labs 10/05/21 04:22 10/05/21 04:22 Abnormal Lab Results - Last 24 Hours (Table) 10/04/21 10/04/21 10/05/21 Range/Units 17:33 23:41 04:22 WBC 18.1 H (3.8-10.6) k/uL Hgb 11.2 L (11.4-16.0) gm/dL RDW 16.0 H (11.5-15.5) % Neutrophils # 15.1 H (1.3-7.7) k/uL Monocytes # 1.1 H (0-1.0) k/uL D-Dimer (<0.60) mg/L FEU ABG pCO2 (35-45) mmHg ABG pO2 (83-108) mmHg ABG HCO3 (21-25) mmol/L ABG Total CO2 (19-24) mmol/L ABG O2 Saturation (94-97) % Carbon Dioxide (22-30) mmol/L BUN (7-17) mg/dL Glucose (74-99) mg/dL POC Glucose (mg/dL) 197 H 177 H (75-99) mg/dL C-Reactive Protein (<1.0) mg/dL 10/05/21 10/05/21 10/05/21 Range/Units 04:22 04:22 04:22 WBC (3.8-10.6) k/uL Hgb (11.4-16.0) gm/dL RDW (11.5-15.5) % Neutrophils # (1.3-7.7) k/uL Monocytes # (0-1.0) k/uL D-Dimer 1.69 H (<0.60) mg/L FEU ABG pCO2 (35-45) mmHg ABG pO2 (83-108) mmHg ABG HCO3 (21-25) mmol/L ABG Total CO2 (19-24) mmol/L ABG O2 Saturation (94-97) % Carbon Dioxide 35 H (22-30) mmol/L BUN 35 H (7-17) mg/dL Glucose 147 H (74-99) mg/dL POC Glucose (mg/dL) (75-99) mg/dL C-Reactive Protein 2.1 H (<1.0) mg/dL 10/05/21 10/05/21 10/05/21 Range/Units 05:22 06:17 11:53 WBC (3.8-10.6) k/uL Hgb (11.4-16.0) gm/dL RDW (11.5-15.5) % Neutrophils # (1.3-7.7) k/uL Monocytes # (0-1.0) k/uL D-Dimer (<0.60) mg/L FEU ABG pCO2 63 H (35-45) mmHg ABG pO2 58 L* (83-108) mmHg ABG HCO3 38 H (21-25) mmol/L ABG Total CO2 40 H (19-24) mmol/L ABG O2 Saturation 90.1 L (94-97) % Carbon Dioxide (22-30) mmol/L BUN (7-17) mg/dL Glucose (74-99) mg/dL POC Glucose (mg/dL) 135 H 152 H (75-99) mg/dL C-Reactive Protein (<1.0) mg/dL Diabetes panel 10/05/21 Range/Units 04:22 Sodium 139 (137-145) mmol/L Potassium 4.1 (3.5-5.1) mmol/L Chloride 102 (98-107) mmol/L Carbon Dioxide 35 H (22-30) mmol/L BUN 35 H (7-17) mg/dL Creatinine 0.55 (0.52-1.04) mg/dL Glucose 147 H (74-99) mg/dL Calcium 8.7 (8.4-10.2) mg/dL Calcium panel 10/05/21 Range/Units 04:22 Calcium 8.7 (8.4-10.2) mg/dL Pituitary panel 10/05/21 Range/Units 04:22 Sodium 139 (137-145) mmol/L Potassium 4.1 (3.5-5.1) mmol/L Chloride 102 (98-107) mmol/L Carbon Dioxide 35 H (22-30) mmol/L BUN 35 H (7-17) mg/dL Creatinine 0.55 (0.52-1.04) mg/dL Glucose 147 H (74-99) mg/dL Calcium 8.7 (8.4-10.2) mg/dL Adrenal panel 10/05/21 Range/Units 04:22 Sodium 139 (137-145) mmol/L Potassium 4.1 (3.5-5.1) mmol/L Chloride 102 (98-107) mmol/L Carbon Dioxide 35 H (22-30) mmol/L BUN 35 H (7-17) mg/dL Creatinine 0.55 (0.52-1.04) mg/dL Glucose 147 H (74-99) mg/dL Calcium 8.7 (8.4-10.2) mg/dL
--- NOTE | 2021-10-05 13:56 | P.PN ---
Subjective Progress Note Date: 10/05/21 This is a 61-year-old female who was recently admitted with acute COVID-19 pneumonia with acute COVID-19 bilateral interstitial pneumonia and also with transaminitis and being closely monitored. Patient remains in the ICU and currently intubated and sedated with an FiO2 of 70% and PEEP is 18. 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 Patient did have a venous Doppler study done recently which showed left leg DVT and patient is maintained on Eliquis will continue. Patient also continues on empiric antibiotics and awaiting for sputum culture finalized. Patient was started on IV cefepime and will continue. Patient is also continued on oral dexamethasone along with vitamin and zinc supplements and will continue. Patient with some mild volume overload and given a dose of IV Lasix push today. 09/29/2021 Patient is seen and evaluated this morning continues to be closely monitored in the ICU and continues to be on mechanical ventilation and sedated. FiO2 was increased at 80% with a PEEP of 18 and oxygen saturations between 87-91%. Patient developing subcutaneous emphysema in the neck and chest wall area and chest x-ray today shows bilateral multifocal and confluent opacification is redemonstrated consistent with COVID-19 infection with a new small left apical pneumothorax estimated under 5% with new pneumomediastinum and recurrent overlying subcutaneous emphysema noted. Patient is white blood count mildly elevated at 16.1 and is continued on oral dexamethasone along with oral eliquis for anticoagulation. Patient continues to be on IV cefepime and blood and sputum cultures are negative thus far. 09/30/2021 Patient is seen today continues to be closely monitored in the ICU with multiple medical consultations following. Patient continues to be mechanically intubated and sedated with continued subcutaneous emphysema noted. Chest xray shows a trace left apical pneumothorax that is minimally smaller 7mm versus 1cm previously, extensive bilateral subcutaneous emphysema persists and diffuse interstitial changes and bilateral patchy opacities persist with slight improvement in aeration in the lower lungs. Per nursing staff corbin was clogged with copious amounts of white discharge and will add diflucan and corbin catheter has been changed and draining adequately. Patient continues on IV cefepime. Patient tolerating tube feeds and will continue. 10/01/2021 Patient is seen and evaluated in follow up this morning and continues to be closely monitored. Multiple medical consultations following and patient c ontinues to be on mechanical vent and sedated. Patient continues on IV Cefepime and diflucan. Patient chest xray today shows stable extensive subcutaneous emphysema, no pneumothorax, and patchy bilateral lung infiltrates remain present. INflammatory markers trending down. 10/04/2021 Patient is seen in follow-up continues to be closely monitored in the ICU. Patient remains on mechanical vent with an FI02 of 65% and peep is 18. Weaning trials being attempted with pulmonary supervisor plate forming following closely. Patient continues with extensive subq emphysema noted on exam. 10/05/2021 Patient Is seen and evaluated this morning with continued attempts at weaning and continues on mechanical vent and intubated with pulmonary supervisor plate forming following closely. Patient remains on Eliquis which will be held as surgery Dr. Nelson was consulted for possible PEG and trach tube placement for unsuccessful attempts at weaning from ventilation and prolonged hospitalization on mechanical vent. Chest x-ray today shows recurrent tiny left apical pneumothorax estimated under 5% with worsening overlying subcutaneous emphysema and again pneumomediastinum redemonstrated with multifocal confluent opacification's redemonstrated consistent with COVID-19 infection and/or arts are redemonstrated with no significant change from one day previously. Patient continues on FiO2 of 65% and PEEP was weaned down to 14 today. IV cefepime discontinued. Review of systems: Unable to obtain as patient is mechanically intubated and sedated Labs: WBC is 18.1, hemoglobin is 11.2, platelets are 358, d-dimer is 1.69, sodium 139, potassium 4.1, BUN 35, creatinine 0.55, calcium 8.7, CRP 2.1 Active Medications Artificial Tears (Artificial Tears-Hypromellose Drops 15 Ml Btl) 2 drops BOTH EYES QID [facility] Last Admin: 10/05/21 12:56 Dose: 2 drops Documented by: Ascorbic Acid (Ascorbic Acid 500 Mg Tab) 500 mg PO BID [facility] Last Admin: 10/05/21 08:52 Dose: 500 mg Documented by: Chlorhexidine Gluconate (Chlorhexidine Gluconate 15 Ml Cup) 15 ml MUCOUS MEM BID [facility] Last Admin: 10/05/21 08:51 Dose: 15 ml Documented by: Dexamethasone (Dexamethasone 2 Mg Tab) 6 mg PO DAILY [facility] Last Admin: 10/05/21 08:52 Dose: 6 mg Documented by: Docusate Sodium (Docusate Oral Soln 100 Mg/10 Ml Cup) 100 mg PO DAILY PRN PRN Reason: Constipation Last Admin: 10/04/21 17:30 Dose: 100 mg Documented by: Ergocalciferol (Ergocalciferol 1,250 Mcg (50,000 Iu) Capsule) 1,250 mcg PO [facility] Last Admin: 10/03/21 08:38 Dose: Not Given Documented by: Propofol 1,000 mg/ IV Solution 100 mls @ 0 mls/hr IV .Q0M [facility]; Protocol Last Admin: 10/05/21 09:15 Dose: 50 mcg/kg/min, 28.71 mls/hr Documented by: Cisatracurium Besylate 200 mg/ (Sodium Chloride) 200 mls @ 5.16 mls/hr IV .Q24H [facility]; Protocol Last Admin: 10/05/21 01:53 Dose: 2 mcg/kg/min, 10.32 mls/hr Documented by: Sodium Chloride (Saline 0.9%) 1,000 mls @ 20 mls/hr IV .Q24H [facility] Last Admin: 10/05/21 01:41 Dose: Not Given Documented by: Fentanyl Citrate 2,500 mcg/ (Sodium Chloride) 250 mls @ 4.6 mls/hr IV .Q24H [facility]; Protocol Last Admin: 10/05/21 02:04 Dose: 1 mcg/kg/hr, 9.2 mls/hr Documented by: Norepinephrine Bitartrate 8 mg (/ Sodium Chloride) 258 mls @ 8.901 mls/hr IV .Q24H [facility]; Protocol Last Admin: 10/04/21 23:04 Dose: Not Given Documented by: Fluconazole/Sodium Chloride (100 mg/ IV Solution) 50 mls @ 50 mls/hr IVPB DAILY@1200 [facility] Last Admin: 10/05/21 12:54 Dose: 50 mls/hr Documented by: Clevidipine 25 mg/ IV Solution 50 mls @ 2 mls/hr IV .Q24H [facility]; Protocol Last Titration: 10/05/21 11:40 Dose: 4 mg/hr, 8 mls/hr Documented by: Insulin Aspart (Insulin Aspart (Novolog) 100 Unit/Ml Vial) 0 unit SQ Q6HR [facility]; Protocol Last Admin: 10/05/21 12:19 Dose: 1 unit Documented by: Miscellaneous Information (Pneumonia Protocol Utilized 1 Each Mis) 1 each PO ONCE PRN PRN Reason: Per Protocol Miscellaneous Information (Potassium Replacement Protocol 1 Each [facility] [place]) 1 each MISCELLANE DAILY PRN; Protocol PRN Reason: Per Protocol Naloxone HCl (Naloxone 0.4 Mg/Ml 1 Ml Vial) 0.2 mg IV Q2M PRN PRN Reason: Opioid Reversal Pantoprazole Sodium (Pantoprazole 40 Mg/10 Ml Vial) 40 mg IV DAILY [facility] Last Admin: 10/05/21 08:51 Dose: 40 mg Documented by: Zinc Sulfate (Zinc Sulfate 220 Mg Cap) 220 mg PO DAILY [facility] Last Admin: 10/05/21 08:52 Dose: 220 mg Documented by: Physical Exam: Gen: This is a 61-year-old female currently sedated and intubated. Temp is 97.9F, pulse is 30, respirations are 30, blood pressure is 90/53, oxygen saturation is 96% on 65% mechanical ventilation with a PEEP of 14 HEENT: Head is atraumatic, normocephalic. Pupils equal, round. Sclerae is anicteric. NECK: Supple. No JVD. No lymphadenopathy. No thyromegaly. subcutaneous emphysema noted in the neck and chest wall area bilaterally. LUNGS: Diminished breath sounds bilaterally with coarse rhonchi and crackles noted. No intercostal retractions. HEART: S1, S2 are muffled ABDOMEN: Soft. Bowel sounds are present. No masses. No tenderness. EXTREMITIES: No pedal edema. No calf tenderness. Bilateral upper extremity edema noted NEUROLOGICAL: Patient is currently intubated and sedated Assessment: Acute COVID-19 infection with acute COVID-19 bilateral interstitial pneumonia with hypoxic hypercarbic respiratory failure on mechanical vent Subcutaneous emphysema of the neck and chest with a left apical pneumothorax less than 5% Acute left leg deep vein thrombosis Acute respiratory acidosis Primary hypercoagulable state and factor V week deficiency Possible candidiasis secondary to prolonged indwelling Corbin catheter Mild transaminitis, possibly secondary to COVID-19 History of DVT History of degenerative joint disease History of fibromyalgia Acute respiratory acidosis Increased white blood count anemia, of undetermined etiology Elevated inflammatory markers of COVID-19 Obesity with a body mass index of 38.1 Full code Plan: Recommend to continue with current medications and follow along closely with multiple medical consultations. Prognosis remains guarded with multiple complex medical issues noted. Patient continues on mechanical ventilation with an FiO2 of 65% and PEEP is being titrated down to 14. . Attempts at weaning trials being done. Patient has had prolonged hospitalization and prolonged mechanical ventilation and general surgery Dr. Nelson consulted for PEG and trach placement. Will hold eliquis. Recommend continue with current medications and patient has been maintained on IV cefepime and sputum cultures and Blood cultures thus far remain negative. Cefepime discontinued. Chest x-ray reviewed as mentioned above. Recommend repeat labs and continued close monitoring. Again due to multiple complex medical issues prognosis is quite guarded. Objective - Vital Signs Vital signs: Vital Signs Temp 97.9 F 10/05/21 08:00 Pulse 71 10/05/21 08:00 Resp 30 H 10/05/21 08:00 BP 98/54 10/05/21 08:00 Pulse Ox 90 L 10/05/21 08:00 Intake & Output 10/04/21 10/05/21 10/05/21 18:59 06:59 18:59 Intake Total 522.009 1156.029 74.333 Output Total 580 1245 135 Balance 218.620 104.029 -60.667 Weight 94.5 kg 95.7 kg Intake: IV 220 260 40 .9 220 260 40 Intake, IV Titration 324.620 919.029 14.333 Amount Cefepime 2 gm In Sodium 100 Chloride 0.9% 100 ml @ 25 mls/hr IVPB Q12HR [facility] Rx #:[id number] Cisatracurium 200 mg In 23.306 159.795 Sodium Chloride 0.9% 180 ml @ 1 MCG/KG/MIN 5.16 mls/hr IV .Q24H [facility] Rx#: [id number] Clevidipine Butyrate 25 260.667 14.333 mg In Empty Bag 1 bag @ 1 MG/HR 2 mls/hr IV .Q24H [facility] Rx#:[id number] Fluconazole in NaCl,Iso- 50 Osm 100 mg In Saline 1 50ml.bag @ 50 mls/hr IVPB DAILY@1200 [facility] Rx#: [id number] fentaNYL (PF) 2,500 mcg 198.567 In Sodium Chloride 0.9% 200 ml @ 0.5 MCG/KG/HR 4. 6 mls/hr IV .Q24H [facility] Rx# :[id number] propofoL 1,000 mg In 151.314 300.000 Empty Bag 1 bag @ Titrate IV .Q0M [facility] Rx#: [id number] Tube Feeding 194 140 20 Other 60 30 Output: Urine 580 1245 135 Other: Voiding Method Indwelling Catheter Indwelling Catheter ABP, PAP, CO, CI - Last Documented Arterial Blood Pressure 168/58 - Labs CBC & Chem 7: 10/05/21 04:22 10/05/21 04:22 Labs: Abnormal Lab Results - Last 24 Hours (Table) 10/04/21 10/04/21 10/04/21 Range/Units 11:25 17:33 23:41 WBC (3.8-10.6) k/uL Hgb (11.4-16.0) gm/dL RDW (11.5-15.5) % Neutrophils # (1.3-7.7) k/uL Monocytes # (0-1.0) k/uL D-Dimer (<0.60) mg/L FEU ABG pCO2 (35-45) mmHg ABG pO2 (83-108) mmHg ABG HCO3 (21-25) mmol/L ABG Total CO2 (19-24) mmol/L ABG O2 Saturation (94-97) % Carbon Dioxide (22-30) mmol/L BUN (7-17) mg/dL Glucose (74-99) mg/dL POC Glucose (mg/dL) 134 H 197 H 177 H (75-99) mg/dL C-Reactive Protein (<1.0) mg/dL 10/05/21 10/05/21 10/05/21 Range/Units 04:22 04:22 04:22 WBC 18.1 H (3.8-10.6) k/uL Hgb 11.2 L (11.4-16.0) gm/dL RDW 16.0 H (11.5-15.5) % Neutrophils # 15.1 H (1.3-7.7) k/uL Monocytes # 1.1 H (0-1.0) k/uL D-Dimer 1.69 H (<0.60) mg/L FEU ABG pCO2 (35-45) mmHg ABG pO2 (83-108) mmHg ABG HCO3 (21-25) mmol/L ABG Total CO2 (19-24) mmol/L ABG O2 Saturation (94-97) % Carbon Dioxide 35 H (22-30) mmol/L BUN 35 H (7-17) mg/dL Glucose 147 H (74-99) mg/dL POC Glucose (mg/dL) (75-99) mg/dL C-Reactive Protein (<1.0) mg/dL 10/05/21 10/05/21 10/05/21 Range/Units 04:22 05:22 06:17 WBC (3.8-10.6) k/uL Hgb (11.4-16.0) gm/dL RDW (11.5-15.5) % Neutrophils # (1.3-7.7) k/uL Monocytes # (0-1.0) k/uL D-Dimer (<0.60) mg/L FEU ABG pCO2 63 H (35-45) mmHg ABG pO2 58 L* (83-108) mmHg ABG HCO3 38 H (21-25) mmol/L ABG Total CO2 40 H (19-24) mmol/L ABG O2 Saturation 90.1 L (94-97) % Carbon Dioxide (22-30) mmol/L BUN (7-17) mg/dL Glucose (74-99) mg/dL POC Glucose (mg/dL) 135 H (75-99) mg/dL C-Reactive Protein 2.1 H (<1.0) mg/dL
[2021-10-05] MEDS ORDERED: bisacodyL 10 MG SUPP RECTAL STA (16:28)
[2021-10-05 16:46] LABS: Potassium 4.1 mmol/L (3.5-5.1)
[2021-10-05 16:47] LABS: Magnesium 2.3 mg/dL (1.6-2.3)
[2021-10-05] MEDS: DOCUSATE ORAL SOLN 100 MG/10 ML CUP PO PRN (16:57)
[2021-10-05 17:31] LABS: Glucose,Whole Blood 196 mg/dL (75-99)
[2021-10-05] MEDS: NOREPINEPHRINE 8 MG in SODIUM CHLORIDE 0.9% 250 ML IV SCH (19:19)
[2021-10-05 21:52] LABS: ABG Base Excess -0.6 mmol/L; ABG HCO3 24 mmol/L (21-25); ABG Oxygen Saturation 84.4 % (94-97); ABG PCO2 35 mmHg (35-45); ABG PH 7.43 (7.35-7.45); ABG TCO2 25 mmol/L (19-24); Allen Test Performed? Yes
--- NOTE | 2021-10-05 22:05 | XR ---
EXAMINATION TYPE: XR chest 1V portable DATE OF EXAM: 10/05/2021 COMPARISON: 10/05/2021 HISTORY: Respiratory failure TECHNIQUE: FINDINGS: Endotracheal tube is 11 mm from the jahaira. There is moderate pulmonary interstitial and ai rspace edema. There is extensive soft tissue air over the chest. Left subclavian catheter with tip in the superior vena cava. There is nasogastric tube in the stomach. There are chest leads. IMPRESSION: Moderate pulmonary edema is consistent with RDS and unchanged. Extensive soft tissue air without change. No pneumothorax. Endotracheal tube is low and should be pulled back 2 cm.
[2021-10-05 22:06] LABS: ABG PO2 47 mmHg (83-108)
[2021-10-05 23:53] LABS: Glucose,Whole Blood 137 mg/dL (75-99)
[2021-10-05 23:57] LABS: ABG Base Excess 13.2 mmol/L; ABG HCO3 38 mmol/L (21-25); ABG Oxygen Saturation 93.4 % (94-97); ABG PCO2 60 mmHg (35-45); ABG PH 7.41 (7.35-7.45); ABG PO2 69 mmHg (83-108); ABG TCO2 40 mmol/L (19-24)
[2021-10-05 23:58] LABS: Allen Test Performed? No
[2021-10-06] MEDS ORDERED: LIDOCAINE 2% SYG (PF) 100 MG/5 ML IV ONE (00:11)
[2021-10-06] MEDS: LIDOCAINE-D5W PMX 2G/250ML 2,000 MG in DEXTROSE/WATER 1 250ML.BAG IV SCH (00:16)
[2021-10-06] MEDS: INSULIN ASPART (NovoLOG) 100 UNIT/ML VIAL SQ SCH ×4 (00:16→17:56)
[2021-10-06] MEDS: SODIUM CHLORIDE 0.9% 1,000 ML IV SCH (02:15)
[2021-10-06] MEDS: CLEVIDIPINE BUTYRATE 25 MG in EMPTY BAG 1 BAG IV SCH ×3 (02:19→09:17)
[2021-10-06 04:40] LABS: African American GFR (CKD) >90 (>60 ml/min/1.73 sqM); Anion Gap 2 mmol/L; Blood Urea Nitrogen 30 mg/dL (7-17); Calcium 8.7 mg/dL (8.4-10.2); Carbon Dioxide 36 mmol/L (22-30); Chloride 100 mmol/L (98-107); Glucose 130 mg/dL (74-99); Non-African American GFR(CKD) >90 (>60 ml/min/1.73 sqM); Sodium 138 mmol/L (137-145)
[2021-10-06 05:35] LABS: Anisocytosis Slight; HCT 36.1 % (34.0-46.0); HGB 11.2 gm/dL (11.4-16.0); Hypochromasia Moderate; MCH 27.6 pg (25.0-35.0); MCHC 31.2 g/dL (31.0-37.0); MCV 88.5 fL (80.0-100.0); Mean Platelet Volume 9.3; Platelet Count 325 k/uL (150-450); RBC 4.08 m/uL (3.80-5.40); RDW 16.1 % (11.5-15.5); WBC 16.1 k/uL (3.8-10.6)
[2021-10-06 05:54] LABS: ABG Base Excess 14.8 mmol/L; ABG HCO3 39 mmol/L (21-25); ABG Oxygen Saturation 93.9 % (94-97); ABG PCO2 58 mmHg (35-45); ABG PH 7.44 (7.35-7.45); ABG PO2 67 mmHg (83-108); ABG TCO2 41 mmol/L (19-24)
[2021-10-06 06:28] LABS: Allen Test Performed? No
[2021-10-06 07:04] LABS: Band Neutrophils % 10 %; Eosinophils # (M) 0.32 k/uL (0-0.7); Lymphocytes # (M) 3.06 k/uL (1.0-4.8); Metamyelocytes # (M) 0.16 k/uL (0); Metamyelocytes % 1 %; Monocytes # (M) 0.48 k/uL (0-1.0); Neutrophils % (M) 67 %; Nucleated Red Blood Cells 0 /100 WBC (0-0); Total Cells Counted 200
[2021-10-06 07:05] LABS: Basophilic Stippling Present; Polychromasia Present
--- NOTE | 2021-10-06 07:43 | XR ---
EXAMINATION TYPE: XR chest 1V portable DATE OF EXAM: 10/06/2021 COMPARISON: 10/05/2021 INDICATION: Assess lungs, difficulty breathing TECHNIQUE: Single frontal view of the chest is obtained. FINDINGS: The heart size is normal. The pulmonary vasculature is indistinct. Diffuse increased lung markings are present bilaterally. Overlying subcutaneous emphysema is present which appears slightly improved. Endotracheal tube tip is 1.9 cm above the jahaira. Nasogastric tube transverses the thorax. No pneumot horax is identified. Left central venous catheter is present with the tip in the distal superior vena cava region. IMPRESSION: 1. Multiple lines and catheters discussed above. 2. Diffuse increased nonspecific lung markings similar to comparison. Continued follow-up is recommen ded.
[2021-10-06] MEDS: ASCORBIC ACID 500 MG TAB PO SCH ×2 (09:06→19:55)
[2021-10-06] MEDS: ZINC SULFATE 220 MG CAP PO SCH (09:06)
[2021-10-06] MEDS: PANTOPRAZOLE 40 MG/10 ML VIAL IV SCH (09:06)
[2021-10-06] MEDS: dexAMETHasone 2 MG TAB PO SCH (09:06)
[2021-10-06] MEDS: CHLORHEXIDINE GLUCONATE 15 ML CUP MUCOUS MEM SCH ×2 (09:06→19:55)
[2021-10-06] MEDS: ARTIFICIAL TEARS-HYPROMELLOSE DROPS 15 ML BTL BOTH EYES SCH ×4 (09:25→19:54)
[2021-10-06] MEDS: CISATRACURIUM 200 MG in SODIUM CHLORIDE 0.9% 180 ML IV SCH (10:16)
[2021-10-06] MEDS: fentaNYL (PF) 2,500 MCG in SODIUM CHLORIDE 0.9% 200 ML IV SCH ×2 (10:17→17:34)
[2021-10-06 11:42] LABS: Glucose,Whole Blood 149 mg/dL (75-99)
--- NOTE | 2021-10-06 12:19 | ECHOF ---
Referral Reason:LV function MEASUREMENTS -------- HEIGHT: 157.5 cm WEIGHT: 96.2 kg BP: FINDINGS -------- This was a technically difficult study with suboptimal views. Pt. on a vent. Limited study due to covid 19 exposure. Unable to visualize the heart . CONCLUSIONS -------- 1. Pt. on a vent. 2. Limited study due to covid 19 exposure. Unable to visualize the heart. CELL TENDER HELPER: Selma Cerda RDCS
--- NOTE | 2021-10-06 12:41 | P.CRDCN ---
History of Present Illness Consult date: 10/06/21 History of present illness: HISTORY OF PRESENTING ILLNESS This is a pleasant 61-year-old female past medical history significant for factor V Leiden treated with warfarin, DVT, fibromyalgia, pneumonia. She does not follow with a mounter. This patient was admitted with Covid pneumonia on 09/23/2021. She was admitted to the ICU with acute hypoxic respiratory luz maria lure secondary to Covid pneumonia requiring intubation and mechanical ventilation on 09/25/2021. She is found to have an acute deep vein thrombosis and is currently being treated with request. We have been asked to see in consultation for ventricular tachycardia. Patient was noted last night to have nonsustained runs of ventricular tachycardia, multifocal PVCs, and ectopy. Patient is on levo. Patient was started on a lidocaine drip, patient's ectopy has greatly improved only having occasional PVCs. Patient examined resting comfortably mechanically ventilated. Will obtain a magnesium level and supplement if needed. Will check a troponin. Will order an echocardiogram. Blood pressure 111/52, heart rate 68, respirations 30, 93% on mechanical ventilation, afebrile. DIAGNOSTICS Telemetry monitoring shows patient in sinus rhythm Echocardiogram pending Chest xray diffuse increased nonspecific lung markings similar to comparison. Laboratory reviewed, WBC 16.1, hemoglobin 11.2, platelets 325, sodium 138, potassium 4, BUN 30, creatinine 0.55. Current cardiac medications include Lasix 40 mg IV daily, Levo gtt Review of Systems REVIEW OF SYSTEMS At the time of my exam: CONSTITUTIONAL: Denies fever or chills. EYES: Negative for vision changes ENT: Negative for hearing loss CARDIOVASCULAR: Denies chest pain, shortness of breath, diaphoresis, orthopnea, PND or palpitations. VASCULAR: Denies edema RESPIRATORY: Denies cough. GASTROINTESTINAL: Denies abdominal pain, diarrhea, constipation, nausea or vomiting. MUSCULOSKELETAL: Denies myalgias. NEUROLOGIC: Denies numbness, tingling, headache or weakness. ENDOCRINE: Denies fatigue, weight change, polydipsia or polyurina. GENITOURINARY: Denies burning, hematuria or urgency with micturation. HEMATOLOGIC: Denies history of anemia or bleeding. DERMATOLOGY: Denies rash or skin sores PSYCH: Negative for depression or hallucinations. Past Medical History Past Medical History: Deep Vein Thrombosis (DVT), Fibromyalgia, Pneumonia Additional Past Medical History / Comment(s): Clotting disorder. arthritis. 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 plate neck Past Psychological History: No Psychological Hx Reported Smoking Status: Never smoker Past Alcohol Use History: None Reported Past Drug Use History: None Reported Medications and Allergies Home Medications Medication Instructions Recorded Confirmed Type Ergocalciferol [Vitamin D2] 50,000 unit PO MORRIS 07/04/20 09/23/21 History Meloxicam [Mobic] 7.5 mg PO DAILY 07/04/20 09/23/21 History Warfarin Sodium [Jantoven] 6 mg PO DAILY 07/04/20 09/23/21 History metHOTREXate sodium [Methotrexate] 20 mg PO FR 07/04/20 09/23/21 History Allergies Allergy/AdvReac Type Severity Reaction Status Date / Time cefaclor [From Ceclor] Allergy Unknown Verified 09/23/21 19:51 cephalexin [From Keflex] Allergy Unknown Verified 09/23/21 19:51 cyclobenzaprine Allergy Unknown Verified 09/23/21 19:51 [From Flexeril] Penicillins Allergy Unknown Verified 09/23/21 19:51 Sulfa (Sulfonamide Allergy Unknown Verified 09/23/21 19:51 Antibiotics) acetaminophen [From Tylenol] AdvReac Rash/Hives Verified 09/23/21 19:51 codeine AdvReac Rash/Hives Verified 09/23/21 19:51 erythromycin base AdvReac Rash/Hives Verified 09/23/21 19:51 Physical Exam Vitals: Vital Signs Temp Pulse Resp BP Pulse Ox 10/06/21 10:00 68 30 H 111/52 93 L 10/06/21 09:00 64 30 H 118/57 92 L 10/06/21 08:00 97.8 F 67 30 H 110/56 93 L 10/06/21 07:00 61 30 H 119/59 93 L 10/06/21 06:00 70 30 H 110/57 94 L 10/06/21 05:00 62 30 H 133/56 95 10/06/21 04:00 97.5 F L 69 30 H 135/57 95 10/06/21 03:00 70 30 H 146/74 94 L 10/06/21 02:00 67 30 H 119/56 93 L 10/06/21 01:00 72 30 H 127/55 93 L 10/06/21 00:00 97.8 F 74 30 H 159/77 94 L 10/05/21 23:16 68 30 H 157/71 95 10/05/21 23:00 75 30 H 140/76 95 10/05/21 22:00 74 30 H 123/83 93 L 10/05/21 21:00 60 30 H 92/54 95 10/05/21 20:00 98.2 F 59 L 30 H 97/49 95 10/05/21 19:00 69 30 H 94/54 96 10/05/21 18:00 64 30 H 132/63 93 L 10/05/21 17:00 70 30 H 128/60 92 L 10/05/21 16:00 98.1 F 70 30 H 142/68 90 L 10/05/21 15:00 75 30 H 156/72 91 L 10/05/21 14:00 79 30 H 155/67 91 L 10/05/21 13:00 67 30 H 163/69 90 L Intake and Output 10/05/21 10/06/21 10/06/21 22:59 06:59 14:59 Intake Total 898.562 628.692 288.722 Output Total 1020 1100 200 Balance -121.438 -471.308 88.722 Intake: IV 160 90 30 .9 160 90 30 Intake, IV Titration 598.562 388.692 198.722 Amount Cisatracurium 200 mg In 187.136 34.056 141.255 Sodium Chloride 0.9% 180 ml @ 1 MCG/KG/MIN 5.16 mls/hr IV .Q24H [facility] Rx#: [id number] Clevidipine Butyrate 25 60.000 93.467 57.467 mg In Empty Bag 1 bag @ 1 MG/HR 2 mls/hr IV .Q24H [facility] Rx#:[id number] fentaNYL (PF) 2,500 mcg 166.827 83.173 In Sodium Chloride 0.9% 200 ml @ 0.5 MCG/KG/HR 4. 6 mls/hr IV .Q24H [facility] Rx# :[id number] propofoL 1,000 mg In 184.599 177.996 Empty Bag 1 bag @ Titrate IV .Q0M [facility] Rx#: [id number] Tube Feeding 80 90 30 Other 60 60 30 Output: Urine 1020 1100 200 Other: Voiding Method Indwelling Catheter Indwelling Catheter Indwelling Catheter Weight 96.3 kg 96.3 kg Limited due to Covid pneumonia PHYSICAL EXAMINATION Vital signs reviewed CONSTITUTIONAL: No apparent distress. HEENT: Head is normocephalic. NECK: No JVD. RESPIRATORY: Sedated and mechanically ventilated CARDIAC: Regular rate and rhythm. NEUROLOGIC EXAMINATION: Patient is sedated Results 10/06/21 04:03 10/06/21 04:03 CBC 10/06/21 Range/Units 04:03 WBC 16.1 H (3.8-10.6) k/uL RBC 4.08 (3.80-5.40) m/uL Hgb 11.2 L (11.4-16.0) gm/dL Hct 36.1 (34.0-46.0) % Plt Count 325 (150-450) k/uL Comprehensive Metabolic Panel 10/05/21 10/06/21 Range/Units 16:03 04:03 Sodium 138 (137-145) mmol/L Potassium 4.1 4.0 (3.5-5.1) mmol/L Chloride 100 (98-107) mmol/L Carbon Dioxide 36 H (22-30) mmol/L BUN 30 H (7-17) mg/dL Creatinine 0.55 (0.52-1.04) mg/dL Glucose 130 H (74-99) mg/dL Calcium 8.7 (8.4-10.2) mg/dL Current Medications Generic Name Dose Route Start Last Admin Trade Name Freq PRN Reason Stop Dose Admin Artificial Tears 2 drops 09/26/21 23:00 10/06/21 09:25 Artificial Tears-Hypromellose Drops 15 Ml Btl BOTH EYES 2 drops QID [facility] Administration Ascorbic Acid 500 mg 09/24/21 12:15 10/06/21 09:06 Ascorbic Acid 500 Mg Tab PO 500 mg BID [facility] Administration Chlorhexidine Gluconate 15 ml 09/25/21 21:00 10/06/21 09:06 Chlorhexidine Gluconate 15 Ml Cup MUCOUS MEM 15 ml BID ABRA[facility]AM Administration Dexamethasone 6 mg 09/24/21 09:00 10/06/21 09:06 Dexamethasone 2 Mg Tab PO 6 mg DAILY [facility] Administration Docusate Sodium 100 mg 10/02/21 19:23 10/05/21 16:57 Docusate Oral Soln 100 Mg/10 Ml Cup PO 100 mg DAILY PRN Administration Constipation Ergocalciferol 1,250 mcg 09/26/21 09:00 10/03/21 08:38 Ergocalciferol 1,250 Mcg (50,000 Iu) Capsule PO Not Given MORRIS AB[facility] Furosemide 40 mg 10/06/21 11:30 Furosemide 10 Mg/Ml 4 Ml Vial IV DAILY AB[facility] Propofol 1,000 mg/ IV Solution 100 mls @ 0 mls/hr 09/25/21 16:30 10/06/21 05:02 IV 50 mcg/kg/min .Q0M [facility]AM 28.71 mls/hr Administration Protocol Titrate Cisatracurium Besylate 200 mg/ 200 mls @ 5.16 mls/hr 09/25/21 16:30 10/06/21 10:16 Sodium Chloride IV 2.5 mcg/kg/min .Q24H [facility] 12.9 mls/hr Administration Protocol 1 MCG/KG/MIN Sodium Chloride 1,000 mls @ 20 mls/hr 09/29/21 05:00 10/06/21 02:15 Saline 0.9% IV 20 mls/hr .Q24H [facility] Administration Fentanyl Citrate 2,500 mcg/ 250 mls @ 4.6 mls/hr 09/29/21 12:30 10/06/21 10:17 Sodium Chloride IV 1 mcg/kg/hr .Q24H [facility] 9.2 mls/hr Administration Protocol 0.5 MCG/KG/HR Norepinephrine Bitartrate 8 mg 258 mls @ 8.901 mls/hr 09/29/21 19:15 10/05/21 19:19 / Sodium Chloride IV Not Given .Q24H [facility] Protocol 0.05 MCG/KG/MIN Fluconazole/Sodium Chloride 50 mls @ 50 mls/hr 09/30/21 12:00 10/05/21 12:54 100 mg/ IV Solution IVPB 50 mls/hr DAILY@1200 [facility] Administration Clevidipine 25 mg/ IV Solution 50 mls @ 2 mls/hr 10/03/21 09:15 10/06/21 10:23 IV 0 mg/hr .Q24H [facility] 0 mls/hr Titration Protocol 1 MG/HR Lidocaine HCl/Dextrose 2,000 250 mls @ 7.5 mls/hr 10/06/21 00:15 10/06/21 00:16 mg/ IV Solution IV 1 mg/min .Q24H [facility] 7.5 mls/hr Administration 1 MG/MIN Insulin Aspart 0 unit 10/03/21 13:15 10/06/21 05:03 Insulin Aspart (Novolog) 100 Unit/Ml Vial SQ Not Given Q6HR [facility] Protocol Miscellaneous Information 1 each 09/23/21 21:19 Pneumonia Protocol Utilized 1 Each Misc PO ONCE PRN Per Protocol Miscellaneous Information 1 each 10/04/21 20:57 Potassium Replacement Protocol 1 Each Misc MISCELLANE DAILY PRN Per Protocol Protocol Naloxone HCl 0.2 mg 09/25/21 13:26 Naloxone 0.4 Mg/Ml 1 Ml Vial IV Q2M PRN Opioid Reversal Pantoprazole Sodium 40 mg 09/26/21 09:00 10/06/21 09:06 Pantoprazole 40 Mg/10 Ml Vial IV 40 mg DAILY ABRA[facility]AM Administration Zinc Sulfate 220 mg 09/24/21 12:15 10/06/21 09:06 Zinc Sulfate 220 Mg Cap PO 220 mg DAILY AB[facility]AM Administration Intake and Output 10/05/21 10/06/21 10/06/21 22:59 06:59 14:59 Intake Total 898.562 628.692 288.722 Output Total 1020 1100 200 Balance -121.438 -471.308 88.722 Intake: IV 160 90 30 .9 160 90 30 Intake, IV Titration 598.562 388.692 198.722 Amount Cisatracurium 200 mg In 187.136 34.056 141.255 Sodium Chloride 0.9% 180 ml @ 1 MCG/KG/MIN 5.16 mls/hr IV .Q24H [facility] Rx#: [id number] Clevidipine Butyrate 25 60.000 93.467 57.467 mg In Empty Bag 1 bag @ 1 MG/HR 2 mls/hr IV .Q24H [facility] Rx#:[id number] fentaNYL (PF) 2,500 mcg 166.827 83.173 In Sodium Chloride 0.9% 200 ml @ 0.5 MCG/KG/HR 4. 6 mls/hr IV .Q24H [facility] Rx# :[id number] propofoL 1,000 mg In 184.599 177.996 Empty Bag 1 bag @ Titrate IV .Q0M [facility] Rx#: [id number] Tube Feeding 80 90 30 Other 60 60 30 Output: Urine 1020 1100 200 Other: Voiding Method Indwelling Catheter Indwelling Catheter Indwelling Catheter Weight 96.3 kg 96.3 kg Patient Weight 10/07/21 06:59 Weight 96.3 kg 10/06/21 04:03 10/06/21 04:03 Assessment and Plan Assessment: Nonsustained ventricular tachycardia Left lower extremity deep vein thrombosis Acute hypoxic respiratory failure secondary to Covid pneumonia requiring mechanical ventilation Factor V Leiden Plan: Continue with lidocaine drip for 24 hours Check magnesium level stat, supplement if necessary Check troponin x1 Obtained an EKG Obtain a 2-D echocardiogram Continue with Eliqus Continue on levo and titrate as blood pressure tolerates Continue with all other current cardiac medications Continue telemetry monitoring Further recommendations based on clinical course The above impression and plan of care have been discussed and directed by the signing physician. Genesis Jewell, nurse practitioner, acting as scribe for signing physician.
[2021-10-06] MEDS: FLUCONAZOLE IN NACL,ISO-OSM 100 MG in SALINE 1 50ML.BAG IVPB SCH (12:56)
[2021-10-06] MEDS: FUROSEMIDE 10 MG/ML 4 ML VIAL IV SCH (12:56)
--- NOTE | 2021-10-06 13:48 | P.PN ---
Subjective Progress Note Date: 10/06/21 Principal diagnosis: Acute hypoxic respiratory failure secondary to COVID-19 pneumonia 10/03/2021, the patient remains essentially unchanged. In fact I haven't seen much of a progress on this patient's condition over the past 1 week. She remains in ARDS post COVID 19 related pneumonia on the chest x-ray showed diffuse bilateral pulmonary infiltrates along with some subcutaneous emphysema. The patient remains sedated and paralyzed. The patient remains on propofol running at 50 mcg/kg per minute and the patient is also on fentanyl at 1 mcg/kg per minute and the patient is also on Nimbex at 1.5 Ash respiratory kilo gram per minutes. The mechanical ventilator settings essentially unchanged. I was able to drop her FiO2 down to 65%. PEEP is at 18. The Tidal volumes of 325 and the rate is at 26. Peak airway pressure is 41. Chest x-ray is unchanged. This appears emphysema has somewhat improved. angio Catheter replaced in to deflate the edema further. She remains on anticoagulation with Eliquis regarding her lower extremity DVT. Inflammatory markers have not been checked today. Most recent inflammatory markers showed marked drop in the LDH and a CRP. The patient remains on Decadron. The patient remains on Eliquis. Decadron is being used at a dose of 60 mg IV on a daily basis. The patient remains on empiric antibiotic coverage with IV cefepime and Diflucan. Hemodynamically stable. She is on no pressors. No fever. No chills. Her overall fluid balance has been -221 mL over the past 24 hours. She continues to have some edema in the upper and lower extremities bilaterally. She is tolerating her enteral feeding for nutritional support. She is on vitamin H. The rate of 24 mL an hour. She is having bowel movements with the help of Col ricky. Cardiac rhythm remains sinus. Her white cell count of 10.1 with a hemoglobin of 9.5. Platelet count is at 252. Creatinine is at 43 with a creatinine of 0.5. Cultures of been all negative. The patient has been on cefepime since 09/28/2021. Patient was reevaluated today on 10/04/2021, patient remains in the ICU, intubated and mechanically ventilated. Patient was initially intubated on 09/25/2021, her ventilator settings are assist control rate 26, volume 325 FiO2 65% and PEEP is 18. ABG showed a pO2 of 69 pCO2 of 59 pH of 7.38. Respiratory rate was increased to 30 and the flow rate was cut down to 50 L/m. Patient remains on propofol at 60 mcg/kg/m Nimbex at 2 mcg/kg/m fentanyl 1 mcg/kg/h, and on clevidipine at 4 mg per hour. Patient is receiving enteral feeding vital HP at . Patient is on Decadron 6 mg IV push daily, she is on Eliquis because she was diagnosed as having left lower extremity deep vein thrombosis. Chest x-ray continues to show bilateral interstitial infiltrates, subcu emphysema, adequate positioning of the endotracheal tube, and that catheter/triple-lumen catheter. Patient is sedated and paralyzed. WBC count is 10.8 hemoglobin is 9.2. Electrolytes are normal renal profile is normal liver enzymes are relatively unremarkable. Slightly elevated ALT 48, blood sugar is 134 today. Patient was reevaluated today on 10/05/2021, patient remains in the ICU, intubated, mechanically ventilated. Patient is on assist control rate of 30, tidal volume is 325, PEEP was cut down to 14, it was initially at 18, FiO2 is 65%. And I plan to taper the FiO2 down if tolerated. ABG earlier today showed a pO2 of 58 pCO2 of 63 pH of 7.39, however her O2 saturation on the monitor. Pulse oximetry is actually 99%. Hence I cut down the PEEP, and kept her on the same FiO2 for now. She seemed to be doing a bit better with lower PEEP. Patient remains on Nimbex at 2 mcg/kg/m fentanyl and 0.5 mcg/kg per hour. Patient is receiving vital HP at 10 mL per hour. And she is on propofol at 40 mcg/kg/m. Peak airway pressure today is 57 plateau pressure is 31. Patient is off clevidipine this morning. And considering her leukocytosis is noted on the WBC count today being 18, I will keep the patient on cefepime for now. Asked x- ray is basically showing no major change. And today I discussed her condition with her daughter over the phone, and recommended a tracheostomy and PEG tube placement, the daughter requested Dr. balbuena to do it. And we will consult Dr. balbuena for that purpose. Not much of a change otherwise over the last 24 hours, patient remains on Eliquis for left lower extremity deep vein thrombosis. A hayward seems to have worsening subcutaneous emphysema today, I went ahead and placed to 14-gauge Angiocaths, one in the left anterior chest and one in the right anterior chest in the subcutaneous tissue. Hoping that will decompress her subcutaneous emphysema. This was done under sterile conditions. Patient was reevaluated today on 10/06/2021, patient remains intubated and mechanically ventilated, remains in the ICU, she developed last night intermittent episodes of nonsustained ventricular tachycardia, patient was seen by cardiology on consultation, recommended lidocaine, and she is on lidocaine drip. Patient required increase in her FiO2, and she is now on assist control rate of 30, tidal volume 325 FiO2 is 100%, PEEP is at 14, increased PEEP to 16 this morning. FiO2 was increased apparently last night the 100%. ABG this mor minna on 100% FiO2 showed a pO2 of 67 pCO2 of 58 pH of 7.44. I did cut down the FiO2 to 90%, and I recommended that the patient could be tried on prone position hopefully today. Also recommended a dose of Lasix 40 mg IV push to be given. Chest x-ray continues to show significantdisease, ARDS, not much of a change noted on the chest x-ray, continues to have significant subcutaneous emphysema but clinically improved compared to the subcutaneous emphysema noted yesterday. Ration is now on lidocaine drip, she is also on propofol 50 Nimbex at 2.5, fentanyl at 1 mcg/kg/h, and IV fluid at 20 mL per hour in the form of 0.9 normal saline. Again her PEEP was increased to 16. During my evaluation, patient was noted to be in sinus rhythm, no arrhythmia noted, however the patient is on lidocaine drip. CBC showed leukocytosis with WBC of 16.1 hemoglobin is 11.2. Basic metabolic profile is normal, bicarb is 36. Blood sugar is 130. Magnesium is 2.5. Objective - Vital Signs Vital signs: Vital Signs Temp 97.8 F 10/06/21 12:00 Pulse 64 10/06/21 13:00 Resp 31 H 10/06/21 13:00 BP 146/73 10/06/21 13:00 Pulse Ox 93 L 10/06/21 13:00 Intake & Output 10/05/21 10/06/21 10/06/21 18:59 06:59 18:59 Intake Total 222.676 9846.587 378.722 Output Total 1675 1280 425 Balance -909.000 -74.413 -46.278 Weight 96.3 kg 96.3 kg Intake: IV 240 150 60 .9 240 150 60 Intake, IV Titration 356.000 845.587 198.722 Amount Cisatracurium 200 mg In 221.192 141.255 Sodium Chloride 0.9% 180 ml @ 1 MCG/KG/MIN 5.16 mls/hr IV .Q24H [facility] Rx#: [id number] Clevidipine Butyrate 25 56.000 111.800 57.467 mg In Empty Bag 1 bag @ 1 MG/HR 2 mls/hr IV .Q24H [facility] Rx#:[id number] fentaNYL (PF) 2,500 mcg 250.000 In Sodium Chloride 0.9% 200 ml @ 0.5 MCG/KG/HR 4. 6 mls/hr IV .Q24H [facility] Rx# :[id number] propofoL 1,000 mg In 300 262.595 Empty Bag 1 bag @ Titrate IV .Q0M [facility] Rx#: [id number] Tube Feeding 110 120 60 Other 60 90 60 Output: Urine 1675 1280 425 Other: Voiding Method Indwelling Catheter Indwelling Catheter Indwelling Catheter ABP, PAP, CO, CI - Last Documented Arterial Blood Pressure 168/58 - Exam Physical Exam: Revealed a 61-year-old female in no distress. Intubated, sedated and paralyzed. Head: Atraumatic, normocephalic, endotracheal tube and orogastric tube is intact. Less upper cutaneous emphysema noted clinically on examination today. Patient continues to have angiocatheters bilaterally HEENT:[Neck is supple.] [No neck masses.] [No thyromegaly.] [No JVD.] Subcutaneous emphysema is noted. But significantly less. Chest: [Symmetrical chest expansion crackles at the bases bilaterally. Cardiac Exam: [Distant S1 and S2, no S3 gallop. Abdomen: [Soft, nontender, no megaly, no rebound, no guarding, normal bowel sounds.] Extremities: [No clubbing, trace of bipedal edema, no cyanosis.] Good pulses bilaterally. Neurological Exam: Cannot assess, patient is sedated and paralyzed. Psychiatric: Cannot assess patient is sedated and paralyzed. Skin: No rashes. - Labs CBC & Chem 7: 10/06/21 04:03 10/06/21 04:03 Labs: Abnormal Lab Results - Last 24 Hours (Table) 10/05/21 10/05/21 10/05/21 Range/Units 17:29 21:48 23:49 WBC (3.8-10.6) k/uL Hgb (11.4-16.0) gm/dL RDW (11.5-15.5) % Neutrophils # (Manual) (1.3-7.7) k/uL Metamyelocytes # (Man) (0) k/uL ABG pCO2 60 H (35-45) mmHg ABG pO2 47 L* 69 L (83-108) mmHg ABG HCO3 38 H (21-25) mmol/L ABG Total CO2 25 H 40 H (19-24) mmol/L ABG O2 Saturation 84.4 L 93.4 L (94-97) % Carbon Dioxide (22-30) mmol/L BUN (7-17) mg/dL Glucose (74-99) mg/dL POC Glucose (mg/dL) 196 H (75-99) mg/dL Magnesium (1.6-2.3) mg/dL 10/05/21 10/06/21 10/06/21 Range/Units 23:51 04:03 04:03 WBC 16.1 H (3.8-10.6) k/uL Hgb 11.2 L (11.4-16.0) gm/dL RDW 16.1 H (11.5-15.5) % Neutrophils # (Manual) 12.30 H (1.3-7.7) k/uL Metamyelocytes # (Man) 0.16 H (0) k/uL ABG pCO2 (35-45) mmHg ABG pO2 (83-108) mmHg ABG HCO3 (21-25) mmol/L ABG Total CO2 (19-24) mmol/L ABG O2 Saturation (94-97) % Carbon Dioxide 36 H (22-30) mmol/L BUN 30 H (7-17) mg/dL Glucose 130 H (74-99) mg/dL POC Glucose (mg/dL) 137 H (75-99) mg/dL Magnesium (1.6-2.3) mg/dL 0110/06/21 10/06/21 Range/Units 04:03 05:47 11:40 WBC (3.8-10.6) k/uL Hgb (11.4-16.0) gm/dL RDW (11.5-15.5) % Neutrophils # (Manual) (1.3-7.7) k/uL Metamyelocytes # (Man) (0) k/uL ABG pCO2 58 H (35-45) mmHg ABG pO2 67 L (83-108) mmHg ABG HCO3 39 H (21-25) mmol/L ABG Total CO2 41 H (19-24) mmol/L ABG O2 Saturation 93.9 L (94-97) % Carbon Dioxide (22-30) mmol/L BUN (7-17) mg/dL Glucose (74-99) mg/dL POC Glucose (mg/dL) 149 H (75-99) mg/dL Magnesium 2.5 H (1.6-2.3) mg/dL Assessment and Plan Assessment: Impression: Acute hypoxic respiratory failure secondary to COVID-19 pneumonia and complicated with ARDS. Patient was intubated on 09/25/2021. Acute deep vein thrombosis, on Eliquis. Presently on hold as the patient may undergo tracheostomy and PEG tube placement tomorrow. Acute COVID-19 pneumonia Subcutaneous emphysema, this is a complication of COVID-19 infection/pneumonia Prior history of DVT History of fibromyalgia Degenerative joint disease Mildly elevated liver enzymes secondary to cardona virus infection. Nonsustained ventricular tachycardia, requiring lidocaine drip, being followed by cardiology. Recommendation: Continue lidocaine drip. Will start trials of prone positioning on this patient. Since the patient is requiring relatively high FiO2 and she is on relatively high PEEP at 16 today. Continue ventilatory support. Titrate oxygen accordingly and maintain O2 saturation above 93%. Continue nutritional support/enteral feeding Continue to monitor closely the subcutaneous emphysema on a today seems to be less compared to the last few days. Continue GI and DVT prophylaxis, patient is on Protonix , Eliquis is presently on hold until the patient gets a tracheostomy place. Continue cefepime, empirically. Continue COVID-19 cocktail. Continue to monitor inflammatory markers and address accordingly Continue Decadron. Prognosis remains relatively guarded Today I had a long discussion with the family of this patient including and daughter, updated on her status, and made aware of her critical illness, and made aware that she is quite ill, prognosis is guarded, and mortality is anywhere between 60-70% at this point. Patient is critically ill. Critical care time is over 30 minutes. Time with Patient: Greater than 30
--- NOTE | 2021-10-06 14:59 | P.PN ---
Subjective Progress Note Date: 10/06/21 This is a 61-year-old female who was recently admitted with acute COVID-19 pneumonia with acute COVID-19 bilateral interstitial pneumonia and also with transaminitis and being closely monitored. Patient remains in the ICU and currently intubated and sedated with an FiO2 of 70% and PEEP is 18. 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 Patient did have a venous Doppler study done recently which showed left leg DVT and patient is maintained on Eliquis will continue. Patient also continues on empiric antibiotics and awaiting for sputum culture finalized. Patient was started on IV cefepime and will continue. Patient is also continued on oral dexamethasone along with vitamin and zinc supplements and will continue. Patient with some mild volume overload and given a dose of IV Lasix push today. 09/29/2021 Patient is seen and evaluated this morning continues to be closely monitored in the ICU and continues to be on mechanical ventilation and sedated. FiO2 was increased at 80% with a PEEP of 18 and oxygen saturations between 87-91%. Patient developing subcutaneous emphysema in the neck and chest wall area and chest x-ray today shows bilateral multifocal and confluent opacification is redemonstrated consistent with COVID-19 infection with a new small left apical pneumothorax estimated under 5% with new pneumomediastinum and recurrent overlying subcutaneous emphysema noted. Patient is white blood count mildly elevated at 16.1 and is continued on oral dexamethasone along with oral eliquis for anticoagulation. Patient continues to be on IV cefepime and blood and sputum cultures are negative thus far. 09/30/2021 Patient is seen today continues to be closely monitored in the ICU with multiple medical consultations following. Patient continues to be mechanically intubated and sedated with continued subcutaneous emphysema noted. Chest xray shows a trace left apical pneumothorax that is minimally smaller 7mm versus 1cm previously, extensive bilateral subcutaneous emphysema persists and diffuse interstitial changes and bilateral patchy opacities persist with slight improvement in aeration in the lower lungs. Per nursing staff corbin was clogged with copious amounts of white discharge and will add diflucan and corbin catheter has been changed and draining adequately. Patient continues on IV cefepime. Patient tolerating tube feeds and will continue. 10/01/2021 Patient is seen and evaluated in follow up this morning and continues to be closely monitored. Multiple medical consultations following and patient c ontinues to be on mechanical vent and sedated. Patient continues on IV Cefepime and diflucan. Patient chest xray today shows stable extensive subcutaneous emphysema, no pneumothorax, and patchy bilateral lung infiltrates remain present. INflammatory markers trending down. 10/04/2021 Patient is seen in follow-up continues to be closely monitored in the ICU. Patient remains on mechanical vent with an FI02 of 65% and peep is 18. Weaning trials being attempted with pulmonary gear and spline grinder following closely. Patient continues with extensive subq emphysema noted on exam. 10/05/2021 Patient Is seen and evaluated this morning with continued attempts at weaning and continues on mechanical vent and intubated with pulmonary gear and spline grinder following closely. Patient remains on Eliquis which will be held as surgery Dr. Nelson was consulted for possible PEG and trach tube placement for unsuccessful attempts at weaning from ventilation and prolonged hospitalization on mechanical vent. Chest x-ray today shows recurrent tiny left apical pneumothorax estimated under 5% with worsening overlying subcutaneous emphysema and again pneumomediastinum redemonstrated with multifocal confluent opacification's redemonstrated consistent with COVID-19 infection and/or arts are redemonstrated with no significant change from one day previously. Patient continues on FiO2 of 65% and PEEP was weaned down to 14 today. IV cefepime discontinued. 10/06/2021 Patient is seen in follow-up this morning per nursing staff patient had multiple runs of ectopy an irregular heart rate and rhythms with PVCs and cardiology consulted. Patient was placed on lidocaine drip and was originally on eliquis is currently on hold for possible PEG and trach placement with general surgery following. Patient had difficulty maintaining oxygen saturations and FiO2 was increased to 100% and PEEP continues at 14. Multiple medical consultations following and patient continues on oral steroids along with vitamin and zinc supplements along with fluconazole. Patient being started on IV Lasix daily and recommend close monitoring of electrolytes and kidney functions. Review of systems: Unable to obtain as patient is mechanically intubated and sedated Labs: WBC is 16.1, hemoglobin is 11.2, platelets are 325, sodium is 138, potassium 4.0, BUN 30, creatinine 0.55, calcium 8.7, magnesium 2.5, troponin 0.012. Active Medications Artificial Tears (Artificial Tears-Hypromellose Drops 15 Ml Btl) 2 drops BOTH EYES QID [facility] Last Admin: 10/06/21 13:13 Dose: 2 drops Documented by: Ascorbic Acid (Ascorbic Acid 500 Mg Tab) 500 mg PO BID [facility] Last Admin: 10/06/21 09:06 Dose: 500 mg Documented by: Chlorhexidine Gluconate (Chlorhexidine Gluconate 15 Ml Cup) 15 ml MUCOUS MEM BID [facility] Last Admin: 10/06/21 09:06 Dose: 15 ml Documented by: Dexamethasone (Dexamethasone 2 Mg Tab) 6 mg PO DAILY [facility] Last Admin: 10/06/21 09:06 Dose: 6 mg Documented by: Docusate Sodium (Docusate Oral Soln 100 Mg/10 Ml Cup) 100 mg PO DAILY PRN PRN Reason: Constipation Last Admin: 10/05/21 16:57 Dose: 100 mg Documented by: Ergocalciferol (Ergocalciferol 1,250 Mcg (50,000 Iu) Capsule) 1,250 mcg PO MORRIS [facility] Last Admin: 10/03/21 08:38 Dose: Not Given Documented by: Furosemide (Furosemide 10 Mg/Ml 4 Ml Vial) 40 mg IV DAILY [facility] Last Admin: 10/06/21 12:56 Dose: 40 mg Documented by: Propofol 1,000 mg/ IV Solution 100 mls @ 0 mls/hr IV .Q0M [facility]; Protocol Last Admin: 10/06/21 05:02 Dose: 50 mcg/kg/min, 28.71 mls/hr Documented by: Cisatracurium Besylate 200 mg/ (Sodium Chloride) 200 mls @ 5.16 mls/hr IV .Q24H [facility]; Protocol Last Admin: 10/06/21 10:16 Dose: 2.5 mcg/kg/min, 12.9 mls/hr Documented by: Sodium Chloride (Saline 0.9%) 1,000 mls @ 20 mls/hr IV .Q24H [facility] Last Admin: 10/06/21 02:15 Dose: 20 mls/hr Documented by: Fentanyl Citrate 2,500 mcg/ (Sodium Chloride) 250 mls @ 4.6 mls/hr IV .Q24H [facility]; Protocol Last Admin: 10/06/21 10:17 Dose: 1 mcg/kg/hr, 9.2 mls/hr Documented by: Norepinephrine Bitartrate 8 mg (/ Sodium Chloride) 258 mls @ 8.901 mls/hr IV .Q24H [facility]; Protocol Last Admin: 10/05/21 19:19 Dose: Not Given Documented by: Fluconazole/Sodium Chloride (100 mg/ IV Solution) 50 mls @ 50 mls/hr IVPB DAILY@1200 [facility] Last Admin: 10/06/21 12:56 Dose: 50 mls/hr Documented by: Clevidipine 25 mg/ IV Solution 50 mls @ 2 mls/hr IV .Q24H [facility]; Protocol Last Titration: 10/06/21 10:23 Dose: 0 mg/hr, 0 mls/hr Documented by: Lidocaine HCl/Dextrose 2,000 (mg/ IV Solution) 250 mls @ 7.5 mls/hr IV .Q24H [facility] Last Admin: 10/06/21 00:16 Dose: 1 mg/min, 7.5 mls/hr Documented by: Insulin Aspart (Insulin Aspart (Novolog) 100 Unit/Ml Vial) 0 unit SQ Q6HR [facility]; Protocol Last Admin: 10/06/21 12:56 Dose: 1 unit Documented by: Miscellaneous Information (Pneumonia Protocol Utilized 1 Each Misc) 1 each PO ONCE PRN PRN Reason: Per Protocol Miscellaneous Information (Potassium Replacement Protocol 1 Each Misc) 1 each MISCELLANE DAILY PRN; Protocol PRN Reason: Per Protocol Naloxone HCl (Naloxone 0.4 Mg/Ml 1 Ml Vial) 0.2 mg IV Q2M PRN PRN Reason: Opioid Reversal Pantoprazole Sodium (Pantoprazole 40 Mg/10 Ml Vial) 40 mg IV DAILY [facility] Last Admin: 10/06/21 09:06 Dose: 40 mg Documented by: Zinc Sulfate (Zinc Sulfate 220 Mg Cap) 220 mg PO DAILY [facility] Last Admin: 10/06/21 09:06 Dose: 220 mg Documented by: Physical Exam: Gen: This is a 61-year-old female currently sedated and intubated. Temp is 97.8F, pulse is 67, respirations are 30, blood pressure is 110/56, oxygen saturation is 93% on 100% mechanical ventilation with a PEEP of 14 HEENT: Head is atraumatic, normocephalic. Pupils equal, round. Sclerae is anicteric. NECK: Supple. No JVD. No lymphadenopathy. No thyromegaly. subcutaneous emphysema noted in the neck and chest wall area bilaterally. LUNGS: Diminished breath sounds bilaterally with coarse rhonchi and crackles not ed. No intercostal retractions. HEART: S1, S2 are muffled ABDOMEN: Soft. Bowel sounds are present. No masses. No tenderness. EXTREMITIES: No pedal edema. No calf tenderness. Bilateral upper extremity edema noted NEUROLOGICAL: Patient is currently intubated and sedated Assessment: Acute COVID-19 infection with acute COVID-19 bilateral interstitial pneumonia with hypoxic hypercarbic respiratory failure on mechanical vent Subcutaneous emphysema of the neck and chest with a left apical pneumothorax less than 5% Non-sustained ventricular tachycardia Acute left leg deep vein thrombosis Acute respiratory acidosis Primary hypercoagulable state and factor V week deficiency Possible candidiasis secondary to prolonged indwelling Corbin catheter Mild transaminitis, possibly secondary to COVID-19 History of DVT History of degenerative joint disease History of fibromyalgia Acute respiratory acidosis Increased white blood count anemia, of undetermined etiology Elevated inflammatory markers of COVID-19 Obesity with a body mass index of 38.1 Full code Plan: Recommend to continue with current medications and follow along closely with multiple medical consultations. Prognosis remains guarded with multiple complex medical issues noted. Patient continues on mechanical ventilation and having difficulties overnight maintaining oxygen saturations an FiO2 increased to 100% with PEEP 14. . No room for weaning attempts today. Patient is not currently on Levophed although had frequent runs of ectopy and PVCs and cardiology was consulted Limited 2-D echo was done although on diagnostic.. She was started on lidocaine drip and cardiology now following. Patient has had prolonged hospitalization and prolonged mechanical ventilation and general surgery Dr. Nelson consulted for PEG and trach placement. Will continue to hold eliquis. Recommend to continue with current medications. Chest x-ray reviewed as mentioned above. Recommend repeat labs and continued close monitoring. Again due to multiple complex medical issues prognosis is quite guarded. Objective - Vital Signs Vital signs: Vital Signs Temp 97.5 F L 10/06/21 04:00 Pulse 70 10/06/21 06:00 Resp 30 H 10/06/21 06:00 BP 110/57 10/06/21 06:00 Pulse Ox 94 L 10/06/21 06:00 Intake & Output 10/05/21 10/06/21 10/06/21 18:59 06:59 18:59 Intake Total 063.326 7164.414 Output Total 1675 1280 Balance -909.000 -157.586 Weight 96.3 kg Intake: IV 240 150 .9 240 150 Intake, IV Titration 356.000 762.414 Amount Cisatracurium 200 mg In 221.192 Sodium Chloride 0.9% 180 ml @ 1 MCG/KG/MIN 5.16 mls/hr IV .Q24H [facility] Rx#: [id number] Clevidipine Butyrate 25 56.000 111.800 mg In Empty Bag 1 bag @ 1 MG/HR 2 mls/hr IV .Q24H [facility] Rx#:[id number] fentaNYL (PF) 2,500 mcg 166.827 In Sodium Chloride 0.9% 200 ml @ 0.5 MCG/KG/HR 4. 6 mls/hr IV .Q24H [facility] Rx# :[id number] propofoL 1,000 mg In 300 262.595 Empty Bag 1 bag @ Titrate IV .Q0M [facility] Rx#: [id number] Tube Feeding 110 120 Other 60 90 Output: Urine 1675 1280 Other: Voiding Method Indwelling Catheter Indwelling Catheter ABP, PAP, CO, CI - Last Documented Arterial Blood Pressure 168/58 - Labs CBC & Chem 7: 10/06/21 04:03 10/06/21 04:03 Labs: Abnormal Lab Results - Last 24 Hours (Table) 10/05/21 10/05/21 10/05/21 Range/Units 11:53 17:29 21:48 WBC (3.8-10.6) k/uL Hgb (11.4-16.0) gm/dL RDW (11.5-15.5) % Neutrophils # (Manual) (1.3-7.7) k/uL Metamyelocytes # (Man) (0) k/uL ABG pCO2 (35-45) mmHg ABG pO2 47 L* (83-108) mmHg ABG HCO3 (21-25) mmol/L ABG Total CO2 25 H (19-24) mmol/L ABG O2 Saturation 84.4 L (94-97) % Carbon Dioxide (22-30) mmol/L BUN (7-17) mg/dL Glucose (74-99) mg/dL POC Glucose (mg/dL) 152 H 196 H (75-99) mg/dL 10/05/21 10/05/21 10/06/21 Range/Units 23:49 23:51 04:03 WBC 16.1 H (3.8-10.6) k/uL Hgb 11.2 L (11.4-16.0) gm/dL RDW 16.1 H (11.5-15.5) % Neutrophils # (Manual) 12.30 H (1.3-7.7) k/uL Metamyelocytes # (Man) 0.16 H (0) k/uL ABG pCO2 60 H (35-45) mmHg ABG pO2 69 L (83-108) mmHg ABG HCO3 38 H (21-25) mmol/L ABG Total CO2 40 H (19-24) mmol/L ABG O2 Saturation 93.4 L (94-97) % Carbon Dioxide (22-30) mmol/L BUN (7-17) mg/dL Glucose (74-99) mg/dL POC Glucose (mg/dL) 137 H (75-99) mg/dL 10/06/21 10/06/21 Range/Units 04:03 05:47 WBC (3.8-10.6) k/uL Hgb (11.4-16.0) gm/dL RDW (11.5-15.5) % Neutrophils # (Manual) (1.3-7.7) k/uL Metamyelocytes # (Man) (0) k/uL ABG pCO2 58 H (35-45) mmHg ABG pO2 67 L (83-108) mmHg ABG HCO3 39 H (21-25) mmol/L ABG Total CO2 41 H (19-24) mmol/L ABG O2 Saturation 93.9 L (94-97) % Carbon Dioxide 36 H (22-30) mmol/L BUN 30 H (7-17) mg/dL Glucose 130 H (74-99) mg/dL POC Glucose (mg/dL) (75-99) mg/dL
--- NOTE | 2021-10-06 15:17 | P.PN ---
<Bernadette Hallman - Last Filed: 10/06/21 15:06> Subjective Progress Note Date: 10/06/21 CHIEF COMPLAINT: Shortness of breath, COVID-19 infection HISTORY OF PRESENT ILLNESS: A 61-year-old female who is admitted to the ICU and was intubated on 09/25/2021 from complications related to COVID-19 pneumonia and acute respiratory distress syndrome. Patient has remained mechanically ventilated and sedated. Respiratory status has declined today and she required increase in her FiO2 with assist control rate of 30, tidal volume FiO2 is 100%. PHYSICAL EXAM: VITAL SIGNS: Reviewed. GENERAL: Well-developed in no acute distress. HEENT: No sclera icterus. Extraocular movements grossly intact. Moist buccal mucosa. Head is atraumatic, normocephalic. ABDOMEN: Soft. Nondistended. Nontender. NEUROLOGIC: Alert and oriented. Cranial nerves II through XII grossly intact. ASSESSMENT: 1. Acute hypoxic respiratory failure secondary to COVID-19 pneumonia and complicated with ARDS currently intubated and on enteral nutrition 2. Requiring tracheostomy and gastrostomy tube secondary to above 3. Left lower extremity DVT currently on Eliquis PLAN: 1. Continue symptomatic and supportive care 2. Hold Eliquis 3. NPO after midnight (hold enteral feedings) 4. Plan for PEG tube and tracheostomy placement The impression and plan of care has been dictated as directed. I performed a history and examination of this patient, discussed the same with the dictator. I agree with the dictator's note ,documented as a scribe. Any additional findings or plans will be noted. Objective - Vital Signs Vital signs: Vital Signs Temp 97.8 F 10/06/21 12:00 Pulse 66 10/06/21 14:00 Resp 30 H 10/06/21 14:00 BP 156/82 10/06/21 14:00 Pulse Ox 94 L 10/06/21 14:00 Intake & Output 10/05/21 10/06/21 10/06/21 18:59 06:59 18:59 Intake Total 143.065 4780.587 498.722 Output Total 1675 1280 1275 Balance -909.000 -74.413 -776.278 Weight 96.3 kg 96.3 kg Intake: IV 240 150 70 .9 240 150 70 Intake, IV Titration 356.000 845.587 298.722 Amount Cisatracurium 200 mg In 221.192 141.255 Sodium Chloride 0.9% 180 ml @ 1 MCG/KG/MIN 5.16 mls/hr IV .Q24H [facility] Rx#: [id number] Clevidipine Butyrate 25 56.000 111.800 57.467 mg In Empty Bag 1 bag @ 1 MG/HR 2 mls/hr IV .Q24H [facility] Rx#:[id number] fentaNYL (PF) 2,500 mcg 250.000 In Sodium Chloride 0.9% 200 ml @ 0.5 MCG/KG/HR 4. 6 mls/hr IV .Q24H [facility] Rx# :[id number] propofoL 1,000 mg In 300 262.595 100 Empty Bag 1 bag @ Titrate IV .Q0M [facility] Rx#: [id number] Tube Feeding 110 120 70 Other 60 90 60 Output: Urine 1675 1280 1275 Other: Voiding Method Indwelling Catheter Indwelling Catheter Indwelling Catheter ABP, PAP, CO, CI - Last Documented Arterial Blood Pressure 168/58 - Labs CBC & Chem 7: 10/06/21 04:03 10/06/21 04:03 Labs: Abnormal Lab Results - Last 24 Hours (Table) 10/05/21 10/05/21 10/05/21 Range/Units 17:29 21:48 23:49 WBC (3.8-10.6) k/uL Hgb (11.4-16.0) gm/dL RDW (11.5-15.5) % Neutrophils # (Manual) (1.3-7.7) k/uL Metamyelocytes # (Man) (0) k/uL ABG pCO2 60 H (35-45) mmHg ABG pO2 47 L* 69 L (83-108) mmHg ABG HCO3 38 H (21-25) mmol/L ABG Total CO2 25 H 40 H (19-24) mmol/L ABG O2 Saturation 84.4 L 93.4 L (94-97) % Carbon Dioxide (22-30) mmol/L BUN (7-17) mg/dL Glucose (74-99) mg/dL POC Glucose (mg/dL) 196 H (75-99) mg/dL Magnesium (1.6-2.3) mg/dL 10/05/21 10/06/21 10/06/21 Range/Units 23:51 04:03 04:03 WBC 16.1 H (3.8-10.6) k/uL Hgb 11.2 L (11.4-16.0) gm/dL RDW 16.1 H (11.5-15.5) % Neutrophils # (Manual) 12.30 H (1.3-7.7) k/uL Metamyelocytes # (Man) 0.16 H (0) k/uL ABG pCO2 (35-45) mmHg ABG pO2 (83-108) mmHg ABG HCO3 (21-25) mmol/L ABG Total CO2 (19-24) mmol/L ABG O2 Saturation (94-97) % Carbon Dioxide 36 H (22-30) mmol/L BUN 30 H (7-17) mg/dL Glucose 130 H (74-99) mg/dL POC Glucose (mg/dL) 137 H (75-99) mg/dL Magnesium (1.6-2.3) mg/dL 10/06/21 10/06/21 10/06/21 Range/Units 04:03 05:47 11:40 WBC (3.8-10.6) k/uL Hgb (11.4-16.0) gm/dL RDW (11.5-15.5) % Neutrophils # (Manual) (1.3-7.7) k/uL Metamyelocytes # (Man) (0) k/uL ABG pCO2 58 H (35-45) mmHg ABG pO2 67 L (83-108) mmHg ABG HCO3 39 H (21-25) mmol/L ABG Total CO2 41 H (19-24) mmol/L ABG O2 Saturation 93.9 L (94-97) % Carbon Dioxide (22-30) mmol/L BUN (7-17) mg/dL Glucose (74-99) mg/dL POC Glucose (mg/dL) 149 H (75-99) mg/dL Magnesium 2.5 H (1.6-2.3) mg/dL <Pedrito Nelson - Last Filed: 10/06/21 17:53> Subjective I have personally seen and examined the patient, reviewed the INFORMATION SYSTEMS ANALYST /PAs history, exam and MDM and agree with the assessment and plan as written. Based on total visit time, I have performed more than 50% of the visit. As above. The patient developed worsening respiratory status earlier today with increased FiO2 and PEEP. Tentatively have patient scheduled for tracheostomy and PEG tube placement tomorrow if the patient's respiratory status is improved. Objective - Vital Signs Vital signs: Vital Signs Temp 97.8 F 10/06/21 12:00 Pulse 73 10/06/21 15:00 Resp 30 H 10/06/21 15:00 BP 124/67 10/06/21 15:00 Pulse Ox 95 10/06/21 15:00 Intake & Output 10/05/21 10/06/21 10/06/21 18:59 06:59 18:59 Intake Total 167.524 3439.587 518.722 Output Total 1675 1280 1725 Balance -909.000 -74.413 -1206.278 Weight 96.3 kg 96.3 kg Intake: IV 240 150 80 .9 240 150 80 Intake, IV Titration 356.000 845.587 298.722 Amount Cisatracurium 200 mg In 221.192 141.255 Sodium Chloride 0.9% 180 ml @ 1 MCG/KG/MIN 5.16 mls/hr IV .Q24H [facility] Rx#: [id number] Clevidipine Butyrate 25 56.000 111.800 57.467 mg In Empty Bag 1 bag @ 1 MG/HR 2 mls/hr IV .Q24H [facility] Rx#:[id number] fentaNYL (PF) 2,500 mcg 250.000 In Sodium Chloride 0.9% 200 ml @ 0.5 MCG/KG/HR 4. 6 mls/hr IV .Q24H [facility] Rx# :[id number] propofoL 1,000 mg In 300 262.595 100 Empty Bag 1 bag @ Titrate IV .Q0M [facility] Rx#: [id number] Tube Feeding 110 120 80 Other 60 90 60 Output: Urine 1675 1280 1725 Other: Voiding Method Indwelling Catheter Indwelling Catheter Indwelling Catheter ABP, PAP, CO, CI - Last Documented Arterial Blood Pressure 168/58 - Labs CBC & Chem 7: 10/06/21 04:03 10/06/21 04:03 Labs: Abnormal Lab Results - Last 24 Hours (Table) 10/05/21 10/05/21 10/05/21 Range/Units 04:22 21:48 23:49 WBC (3.8-10.6) k/uL Hgb (11.4-16.0) gm/dL RDW (11.5-15.5) % Neutrophils # (Manual) (1.3-7.7) k/uL Metamyelocytes # (Man) (0) k/uL ABG pCO2 60 H (35-45) mmHg ABG pO2 47 L* 69 L (83-108) mmHg ABG HCO3 38 H (21-25) mmol/L ABG Total CO2 25 H 40 H (19-24) mmol/L ABG O2 Saturation 84.4 L 93.4 L (94-97) % Carbon Dioxide (22-30) mmol/L BUN (7-17) mg/dL Glucose (74-99) mg/dL POC Glucose (mg/dL) (75-99) mg/dL Magnesium (1.6-2.3) mg/dL Procalcitonin 0.14 H (0.02-0.09) ng/mL 10/05/21 10/06/21 10/06/21 Range/Units 23:51 04:03 04:03 WBC 16.1 H (3.8-10.6) k/uL Hgb 11.2 L (11.4-16.0) gm/dL RDW 16.1 H (11.5-15.5) % Neutrophils # (Manual) 12.30 H (1.3-7.7) k/uL Metamyelocytes # (Man) 0.16 H (0) k/uL ABG pCO2 (35-45) mmHg ABG pO2 (83-108) mmHg ABG HCO3 (21-25) mmol/L ABG Total CO2 (19-24) mmol/L ABG O2 Saturation (94-97) % Carbon Dioxide 36 H (22-30) mmol/L BUN 30 H (7-17) mg/dL Glucose 130 H (74-99) mg/dL POC Glucose (mg/dL) 137 H (75-99) mg/dL Magnesium (1.6-2.3) mg/dL Procalcitonin (0.02-0.09) ng/mL 10/06/21 10/06/21 10/06/21 Range/Units 04:03 05:47 11:40 WBC (3.8-10.6) k/uL Hgb (11.4-16.0) gm/dL RDW (11.5-15.5) % Neutrophils # (Manual) (1.3-7.7) k/uL Metamyelocytes # (Man) (0) k/uL ABG pCO2 58 H (35-45) mmHg ABG pO2 67 L (83-108) mmHg ABG HCO3 39 H (21-25) mmol/L ABG Total CO2 41 H (19-24) mmol/L ABG O2 Saturation 93.9 L (94-97) % Carbon Dioxide (22-30) mmol/L BUN (7-17) mg/dL Glucose (74-99) mg/dL POC Glucose (mg/dL) 149 H (75-99) mg/dL Magnesium 2.5 H (1.6-2.3) mg/dL Procalcitonin (0.02-0.09) ng/mL 10/06/21 Range/Units 17:47 WBC (3.8-10.6) k/uL Hgb (11.4-16.0) gm/dL RDW (11.5-15.5) % Neutrophils # (Manual) (1.3-7.7) k/uL Metamyelocytes # (Man) (0) k/uL ABG pCO2 (35-45) mmHg ABG pO2 (83-108) mmHg ABG HCO3 (21-25) mmol/L ABG Total CO2 (19-24) mmol/L ABG O2 Saturation (94-97) % Carbon Dioxide (22-30) mmol/L BUN (7-17) mg/dL Glucose (74-99) mg/dL POC Glucose (mg/dL) 195 H (75-99) mg/dL Magnesium (1.6-2.3) mg/dL Procalcitonin (0.02-0.09) ng/mL
[2021-10-06 17:48] LABS: Glucose,Whole Blood 195 mg/dL (75-99)
[2021-10-06] MEDS ORDERED: SODIUM CHLORIDE 0.9% 1,000 ML IV ONE (18:01)
--- NOTE | 2021-10-06 18:42 | XR ---
EXAMINATION TYPE: XR chest 1V portable DATE OF EXAM: 10/06/2021 COMPARISON: 10/06/2021 HISTORY: Short of breath TECHNIQUE: Single view FINDINGS: Endotracheal tube is 1.4 cm from the jahaira. There is some pulmonary interstitial edema. Th ere is soft tissue air over the entire chest. There is left-sided central venous catheter with tip in the superior vena cava. No pneumothorax. Trachea is midline. Heart size is normal. There is nasogast alejandra tube in the stomach. IMPRESSION: Extensive soft tissue air without change. Pulmonary interstitial edema appears the same o r slightly improved.
[2021-10-06] MEDS: NOREPINEPHRINE 32 MG in SODIUM CHLORIDE 0.9% 218 ML IV SCH (19:53)
[2021-10-07 00:06] LABS: Glucose,Whole Blood 124 mg/dL (75-99)
[2021-10-07] MEDS: LIDOCAINE-D5W PMX 2G/250ML 2,000 MG in DEXTROSE/WATER 1 250ML.BAG IV SCH (00:38)
[2021-10-07] MEDS: INSULIN ASPART (NovoLOG) 100 UNIT/ML VIAL SQ SCH ×4 (00:38→18:13)
[2021-10-07] MEDS: CISATRACURIUM 200 MG in SODIUM CHLORIDE 0.9% 180 ML IV SCH ×2 (00:38→16:45)
[2021-10-07] MEDS: SODIUM CHLORIDE 0.9% 1,000 ML IV SCH (01:36)
[2021-10-07] MEDS: CLEVIDIPINE BUTYRATE 25 MG in EMPTY BAG 1 BAG IV SCH ×4 (01:36→19:13)
[2021-10-07 05:44] LABS: African American GFR (CKD) >90 (>60 ml/min/1.73 sqM); Anion Gap 6 mmol/L; Blood Urea Nitrogen 35 mg/dL (7-17); Calcium 8.7 mg/dL (8.4-10.2); Carbon Dioxide 34 mmol/L (22-30); Chloride 99 mmol/L (98-107); Glucose 131 mg/dL (74-99); Non-African American GFR(CKD) 86 (>60 ml/min/1.73 sqM); Potassium 3.7 mmol/L (3.5-5.1); Sodium 139 mmol/L (137-145)
[2021-10-07 05:45] LABS: Anisocytosis Slight; Basophils # (A) 0.1 k/uL (0-0.2); Basophils % (A) 1 %; Eosinophils # (A) 0.2 k/uL (0-0.7); Eosinophils % (A) 1 %; HCT 37.7 % (34.0-46.0); HGB 11.7 gm/dL (11.4-16.0); Hypochromasia Moderate; Lymphocytes # (A) 1.6 k/uL (1.0-4.8); Lymphocytes % (A) 10 %; MCH 27.6 pg (25.0-35.0); MCV 89.2 fL (80.0-100.0); Mean Platelet Volume 9.3; Monocytes % (A) 6 %; Neutrophils # (A) 12.9 k/uL (1.3-7.7); Platelet Count 325 k/uL (150-450); RBC 4.23 m/uL (3.80-5.40); RDW 16.8 % (11.5-15.5); WBC 15.9 k/uL (3.8-10.6)
[2021-10-07 05:58] LABS: Band Neutrophils % 6 %; Lymphocytes # (M) 1.91 k/uL (1.0-4.8); Metamyelocytes # (M) 0.64 k/uL (0); Metamyelocytes % 4 %; Monocytes # (M) 0.48 k/uL (0-1.0); Myelocytes # (M) 0.16 k/uL (0); Myelocytes % 1 %; Neutrophils % (M) 74 %; Nucleated Red Blood Cells 0 /100 WBC (0-0); Total Cells Counted 200
[2021-10-07 05:59] LABS: Anisocytosis (M) Present; Polychromasia Present; Toxic Granulation Present
[2021-10-07 06:00] LABS: ABG Base Excess 11.7 mmol/L; ABG HCO3 36 mmol/L (21-25); ABG Oxygen Saturation 90.9 % (94-97); ABG PCO2 57 mmHg (35-45); ABG PH 7.41 (7.35-7.45); ABG PO2 61 mmHg (83-108); ABG TCO2 38 mmol/L (19-24); Allen Test Performed? Yes
[2021-10-07] MEDS ORDERED: POTASSIUM CHLORIDE 20 MEQ in WATER FOR INJECTION 1 100ML.BAG IVPB ONE (06:00)
[2021-10-07] MEDS: dexAMETHasone 2 MG TAB PO SCH (07:55)
[2021-10-07] MEDS: CHLORHEXIDINE GLUCONATE 15 ML CUP MUCOUS MEM SCH ×2 (07:55→19:59)
[2021-10-07] MEDS: ARTIFICIAL TEARS-HYPROMELLOSE DROPS 15 ML BTL BOTH EYES SCH ×4 (07:56→19:59)
[2021-10-07] MEDS: ASCORBIC ACID 500 MG TAB PO SCH ×2 (07:56→19:59)
[2021-10-07] MEDS: FUROSEMIDE 10 MG/ML 4 ML VIAL IV SCH (07:56)
[2021-10-07] MEDS: PANTOPRAZOLE 40 MG/10 ML VIAL IV SCH (07:56)
[2021-10-07] MEDS: ZINC SULFATE 220 MG CAP PO SCH (07:56)
--- NOTE | 2021-10-07 10:16 | XR ---
EXAMINATION TYPE: XR chest 1V portable DATE OF EXAM: 10/07/2021 COMPARISON: 10/06/2021 INDICATION: Assess lungs TECHNIQUE: Single frontal view of the chest is obtained. FINDINGS: The heart size is mildly prominent. The pulmonary vasculature is prominent. Diffuse increased lung markings are present, stable from comparison. There is diffuse subcutaneous emphysema present bilaterally. No pneumothorax is evident. Left central venous catheter is present with the tip in the superior vena cava region. Endotracheal t ube tip is above the jahaira. Nasogastric tube transverses the thorax. IMPRESSION: 1. Multiple lines and catheters discussed above. 2. Stable bilateral lung infiltrates.
[2021-10-07 11:52] LABS: Glucose,Whole Blood 196 mg/dL (75-99)
--- NOTE | 2021-10-07 11:55 | P.PN ---
Subjective Progress Note Date: 10/07/21 This is a pleasant 61-year-old female past medical history significant for factor V Leiden treated with warfarin, DVT, fibromyalgia, pneumonia. 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 She is acute hypoxic respiratory failure secondary to Covid pneumonia requiring intubation and mechanical ventilation. Nicola mayes remains on Eliquis for DVT. She began having nonsustained runs of ventricular tachycardia, multifocal PVCs, and ectopy. she was started on a lidocaine drip. She is only having occasional PVCs. Will discontinue the lidocaine drip and monitor patient for ectopy. Patient examined today in ICU vented with no signs of acute distress. Patient is maintaining her blood pressure and is not requiring pressors at this time blood pressure 10/47, heart rate 63, respirations 30, afebrile, mechanically ventilated. Troponin was negative. DIAGNOSTICS Telemetry monitoring shows patient in sinus rhythm with occasional PVCs Echocardiogram was limited due to Covid, unable to visualize heart. Chest xray stable bilateral lung infiltrates Laboratory reviewed, WBC 15.9, hemoglobin 11.7, platelets 325, sodium 139, potassium 3.7, BUN 35, creatinine 0.75. Current cardiac medications include Lasix 40 mg IV daily, lido gtt Objective - Vital Signs Vital signs: Vital Signs Temp 95.9 F L 10/07/21 08:00 Pulse 63 10/07/21 10:00 Resp 30 H 10/07/21 10:00 BP 103/57 10/07/21 10:00 Pulse Ox 93 L 10/07/21 10:00 Intake & Output 10/06/21 10/07/21 10/07/21 18:59 06:59 18:59 Intake Total 1728.722 835.270 257.352 Output Total 2425 600 400 Balance -696.278 235.270 -142.648 Weight 96.3 kg 96.3 kg Intake: IV 1120 120 .9 120 120 Sodium Chloride 0.9% 1, 1000 000 ml @ 999 mls/hr IV . Q1H1M [facility] Rx#:[id number] Intake, IV Titration 398.722 645.270 227.352 Amount Cisatracurium 200 mg In 141.255 239.08 Sodium Chloride 0.9% 180 ml @ 1 MCG/KG/MIN 5.16 mls/hr IV .Q24H [facility] Rx#: [id number] Clevidipine Butyrate 25 57.467 38.267 40.2 mg In Empty Bag 1 bag @ 1 MG/HR 2 mls/hr IV .Q24H [facility] Rx#:[id number] Lidocaine-D5w Pmx 2G/ 182.75 250Ml 2,000 mg In Dextrose/Water 1 250ml. bag @ 1 MG/MIN 7.5 mls/hr IV .Q24H [facility] Rx#: [id number] Potassium Chloride 20 meq 100 In Water For Injection 1 100ml.bag @ 50 mls/hr IVPB ONCE [facility] Rx#: [id number] propofoL 1,000 mg In 200 185.173 87.152 Empty Bag 1 bag @ Titrate IV .Q0M [facility] Rx#: [id number] Oral 30 Tube Feeding 120 40 Other 90 30 Output: Urine 2425 600 400 Other: Voiding Method Indwelling Catheter Indwelling Catheter Indwelling Catheter ABP, PAP, CO, CI - Last Documented Arterial Blood Pressure 127/56 - Exam Limited due to Covid pneumonia PHYSICAL EXAMINATION Vital signs reviewed CONSTITUTIONAL: No apparent distress. HEENT: Head is normocephalic. NECK: No JVD. RESPIRATORY: Sedated and mechanically ventilated CARDIAC: Regular rate and rhythm. NEUROLOGIC EXAMINATION: Patient is sedated - Labs CBC & Chem 7: 10/07/21 04:25 10/07/21 04:25 Labs: Abnormal Lab Results - Last 24 Hours (Table) 10/05/21 10/06/21 10/06/21 Range/Units 04:22 04:03 11:40 WBC (3.8-10.6) k/uL RDW (11.5-15.5) % Neutrophils # (1.3-7.7) k/uL Neutrophils # (Manual) (1.3-7.7) k/uL Metamyelocytes # (Man) (0) k/uL Myelocytes # (Manual) (0) k/uL ABG pCO2 (35-45) mmHg ABG pO2 (83-108) mmHg ABG HCO3 (21-25) mmol/L ABG Total CO2 (19-24) mmol/L ABG O2 Saturation (94-97) % Carbon Dioxide (22-30) mmol/L BUN (7-17) mg/dL Glucose (74-99) mg/dL POC Glucose (mg/dL) 149 H (75-99) mg/dL Magnesium 2.5 H (1.6-2.3) mg/dL Procalcitonin 0.14 H (0.02-0.09) ng/mL 10/06/21 10/07/21 10/07/21 Range/Units 17:47 00:05 04:25 WBC 15.9 H (3.8-10.6) k/uL RDW 16.8 H (11.5-15.5) % Neutrophils # 12.9 H (1.3-7.7) k/uL Neutrophils # (Manual) 12.70 H (1.3-7.7) k/uL Metamyelocytes # (Man) 0.64 H (0) k/uL Myelocytes # (Manual) 0.16 H (0) k/uL ABG pCO2 (35-45) mmHg ABG pO2 (83-108) mmHg ABG HCO3 (21-25) mmol/L ABG Total CO2 (19-24) mmol/L ABG O2 Saturation (94-97) % Carbon Dioxide (22-30) mmol/L BUN (7-17) mg/dL Glucose (74-99) mg/dL POC Glucose (mg/dL) 195 H 124 H (75-99) mg/dL Magnesium (1.6-2.3) mg/dL Procalcitonin (0.02-0.09) ng/mL 10/07/21 10/07/21 Range/Units 04:25 05:55 WBC (3.8-10.6) k/uL RDW (11.5-15.5) % Neutrophils # (1.3-7.7) k/uL Neutrophils # (Manual) (1.3-7.7) k/uL Metamyelocytes # (Man) (0) k/uL Myelocytes # (Manual) (0) k/uL ABG pCO2 57 H (35-45) mmHg ABG pO2 61 L (83-108) mmHg ABG HCO3 36 H (21-25) mmol/L ABG Total CO2 38 H (19-24) mmol/L ABG O2 Saturation 90.9 L (94-97) % Carbon Dioxide 34 H (22-30) mmol/L BUN 35 H (7-17) mg/dL Glucose 131 H (74-99) mg/dL POC Glucose (mg/dL) (75-99) mg/dL Magnesium (1.6-2.3) mg/dL Procalcitonin (0.02-0.09) ng/mL Assessment and Plan Assessment: Nonsustained ventricular tachycardia Left lower extremity deep vein thrombosis Acute hypoxic respiratory failure secondary to Covid pneumonia requiring mechanical ventilation Factor V Leiden Plan: Disontinue lidocaine drip, continue to monitor patient for ectopyor V. tach Continue with Eliqus Continue on levo and titrate as blood pressure tolerates Continue with all other current cardiac medications Continue telemetry monitoring Further recommendations based on clinical course The above impression and plan of care have been discussed and directed by the signing physician. Genesis Jewell, nurse practitioner, acting as scribe for signing physician.
[2021-10-07] MEDS: fentaNYL (PF) 2,500 MCG in SODIUM CHLORIDE 0.9% 200 ML IV SCH (11:57)
[2021-10-07] MEDS: FLUCONAZOLE IN NACL,ISO-OSM 100 MG in SALINE 1 50ML.BAG IVPB SCH (12:00)
--- NOTE | 2021-10-07 12:25 | P.PN ---
Subjective Progress Note Date: 10/07/21 Principal diagnosis: Acute hypoxic respiratory failure secondary to COVID-19 pneumonia 10/03/2021, the patient remains essentially unchanged. In fact I haven't seen much of a progress on this patient's condition over the past 1 week. She remains in ARDS post COVID 19 related pneumonia on the chest x-ray showed diffuse bilateral pulmonary infiltrates along with some subcutaneous emphysema. The patient remains sedated and paralyzed. The patient remains on propofol running at 50 mcg/kg per minute and the patient is also on fentanyl at 1 mcg/kg per minute and the patient is also on Nimbex at 1.5 Ash respiratory kilo gram per minutes. The mechanical ventilator settings essentially unchanged. I was able to drop her FiO2 down to 65%. PEEP is at 18. The Tidal volumes of 325 and the rate is at 26. Peak airway pressure is 41. Chest x-ray is unchanged. This appears emphysema has somewhat improved. angio Catheter replaced in to deflate the edema further. She remains on anticoagulation with Eliquis regarding her lower extremity DVT. Inflammatory markers have not been checked today. Most recent inflammatory markers showed marked drop in the LDH and a CRP. The patient remains on Decadron. The patient remains on Eliquis. Decadron is being used at a dose of 60 mg IV on a daily basis. The patient remains on empiric antibiotic coverage with IV cefepime and Diflucan. Hemodynamically stable. She is on no pressors. No fever. No chills. Her overall fluid balance has been -221 mL over the past 24 hours. She continues to have some edema in the upper and lower extremities bilaterally. She is tolerating her enteral feeding for nutritional support. She is on vitamin H. The rate of 24 mL an hour. She is having bowel movements with the help of Col ricky. Cardiac rhythm remains sinus. Her white cell count of 10.1 with a hemoglobin of 9.5. Platelet count is at 252. Creatinine is at 43 with a creatinine of 0.5. Cultures of been all negative. The patient has been on cefepime since 09/28/2021. Patient was reevaluated today on 10/04/2021, patient remains in the ICU, intubated and mechanically ventilated. Patient was initially intubated on 09/25/2021, her ventilator settings are assist control rate 26, volume 325 FiO2 65% and PEEP is 18. ABG showed a pO2 of 69 pCO2 of 59 pH of 7.38. Respiratory rate was increased to 30 and the flow rate was cut down to 50 L/m. Patient remains on propofol at 60 mcg/kg/m Nimbex at 2 mcg/kg/m fentanyl 1 mcg/kg/h, and on clevidipine at 4 mg per hour. Patient is receiving enteral feeding vital HP at . Patient is on Decadron 6 mg IV push daily, she is on Eliquis because she was diagnosed as having left lower extremity deep vein thrombosis. Chest x-ray continues to show bilateral interstitial infiltrates, subcu emphysema, adequate positioning of the endotracheal tube, and that catheter/triple-lumen catheter. Patient is sedated and paralyzed. WBC count is 10.8 hemoglobin is 9.2. Electrolytes are normal renal profile is normal liver enzymes are relatively unremarkable. Slightly elevated ALT 48, blood sugar is 134 today. Patient was reevaluated today on 10/05/2021, patient remains in the ICU, intubated, mechanically ventilated. Patient is on assist control rate of 30, tidal volume is 325, PEEP was cut down to 14, it was initially at 18, FiO2 is 65%. And I plan to taper the FiO2 down if tolerated. ABG earlier today showed a pO2 of 58 pCO2 of 63 pH of 7.39, however her O2 saturation on the monitor. Pulse oximetry is actually 99%. Hence I cut down the PEEP, and kept her on the same FiO2 for now. She seemed to be doing a bit better with lower PEEP. Patient remains on Nimbex at 2 mcg/kg/m fentanyl and 0.5 mcg/kg per hour. Patient is receiving vital HP at 10 mL per hour. And she is on propofol at 40 mcg/kg/m. Peak airway pressure today is 57 plateau pressure is 31. Patient is off clevidipine this morning. And considering her leukocytosis is noted on the WBC count today being 18, I will keep the patient on cefepime for now. Asked x- ray is basically showing no major change. And today I discussed her condition with her daughter over the phone, and recommended a tracheostomy and PEG tube placement, the daughter requested Dr. balbuena to do it. And we will consult Dr. balbuena for that purpose. Not much of a change otherwise over the last 24 hours, patient remains on Eliquis for left lower extremity deep vein thrombosis. A hayward seems to have worsening subcutaneous emphysema today, I went ahead and placed to 14-gauge Angiocaths, one in the left anterior chest and one in the right anterior chest in the subcutaneous tissue. Hoping that will decompress her subcutaneous emphysema. This was done under sterile conditions. Patient was reevaluated today on 10/06/2021, patient remains intubated and mechanically ventilated, remains in the ICU, she developed last night intermittent episodes of nonsustained ventricular tachycardia, patient was seen by cardiology on consultation, recommended lidocaine, and she is on lidocaine drip. Patient required increase in her FiO2, and she is now on assist control rate of 30, tidal volume 325 FiO2 is 100%, PEEP is at 14, increased PEEP to 16 this morning. FiO2 was increased apparently last night the 100%. ABG this mor minna on 100% FiO2 showed a pO2 of 67 pCO2 of 58 pH of 7.44. I did cut down the FiO2 to 90%, and I recommended that the patient could be tried on prone position hopefully today. Also recommended a dose of Lasix 40 mg IV push to be given. Chest x-ray continues to show significantdisease, ARDS, not much of a change noted on the chest x-ray, continues to have significant subcutaneous emphysema but clinically improved compared to the subcutaneous emphysema noted yesterday. Ration is now on lidocaine drip, she is also on propofol 50 Nimbex at 2.5, fentanyl at 1 mcg/kg/h, and IV fluid at 20 mL per hour in the form of 0.9 normal saline. Again her PEEP was increased to 16. During my evaluation, patient was noted to be in sinus rhythm, no arrhythmia noted, however the patient is on lidocaine drip. CBC showed leukocytosis with WBC of 16.1 hemoglobin is 11.2. Basic metabolic profile is normal, bicarb is 36. Blood sugar is 130. Magnesium is 2.5. Reevaluated today on 10/07/21, patient remains in the ICU, intubated and mechanically ventilated. Remains on assist control rate of 30 tidal volume 325 FiO2 90% overnight and I cut it down to 80% this morning, she is on a PEEP of 16. ABG showed a pO2 of 61 pCO2 57 pH of 7.41 and this was on 90%. Electrolytes are normal renal profile is normal her bicarb is 34. WBC count is 15.9 hemoglobin 11.2. Chest x-ray continues to show bilateral infiltrates consistent with COVID-19 pneumonia, not much of a change noted on the chest x- ray. Patient remains on multiple drips including fentanyl 1 mcg/kg/h, propofol 50 mcg/kg/m, Nimbex 2 mcg/kg/m, lidocaine 1 mg/m. No further issues related to her arrhythmias. Remains on lidocaine patient is supposed to have tracheostomy and PEG tube placement today, and that is yet to be decided upon by Dr. balbuena on the case. Overall not much of a change overnight, patient continues to have significant subcutaneous emphysema. Remains on enteral feeding which is presently on hold because of plans for tracheostomy. Patient has been up to goal. Sedate I updated her family including her and her daughter about her overall status. And they are very well aware that she is critically ill, and prognosis is guarded, but definitely not futile and not hopeless yet. Objective - Vital Signs Vital signs: Vital Signs Temp 95.9 F L 10/07/21 08:00 Pulse 63 10/07/21 10:00 Resp 30 H 10/07/21 10:00 BP 103/57 10/07/21 10:00 Pulse Ox 93 L 10/07/21 10:00 Intake & Output 10/06/21 10/07/21 10/07/21 18:59 06:59 18:59 Intake Total 1728.722 835.270 613.152 Output Total 2425 600 750 Balance -696.278 235.270 -136.848 Weight 96.3 kg 96.3 kg Intake: IV 1120 120 .9 120 120 Sodium Chloride 0.9% 1, 1000 000 ml @ 999 mls/hr IV . Q1H1M [facility] Rx#:[id number] Intake, IV Titration 398.722 645.270 573.152 Amount Cisatracurium 200 mg In 141.255 239.08 Sodium Chloride 0.9% 180 ml @ 1 MCG/KG/MIN 5.16 mls/hr IV .Q24H [facility] Rx#: [id number] Clevidipine Butyrate 25 57.467 38.267 49.867 mg In Empty Bag 1 bag @ 1 MG/HR 2 mls/hr IV .Q24H [facility] Rx#:[id number] Lidocaine-D5w Pmx 2G/ 182.75 250Ml 2,000 mg In Dextrose/Water 1 250ml. bag @ 1 MG/MIN 7.5 mls/hr IV .Q24H [facility] Rx#: [id number] Potassium Chloride 20 meq 100 In Water For Injection 1 100ml.bag @ 50 mls/hr IVPB ONCE ONE Rx#: [id number] fentaNYL (PF) 2,500 mcg 236.133 In Sodium Chloride 0.9% 200 ml @ 0.5 MCG/KG/HR 4. 6 mls/hr IV .Q24H [facility] Rx# :[id number] propofoL 1,000 mg In 200 185.173 187.152 Empty Bag 1 bag @ Titrate IV .Q0M [facility] Rx#: [id number] Oral 40 Tube Feeding 120 40 Other 90 30 Output: Urine 2425 600 750 Other: Voiding Method Indwelling Catheter Indwelling Catheter Indwelling Catheter ABP, PAP, CO, CI - Last Documented Arterial Blood Pressure 127/56 - Exam Physical Exam: Revealed a 61-year-old female in no distress. Intubated, sedated and paralyzed. Head: Atraumatic, normocephalic, endotracheal tube and orogastric tube is intact. Subcutaneous emphysema persists, mostly in the upper chest wall area. HEENT:[Neck is supple.] [No neck masses.] [No thyromegaly.] [No JVD.] Subcutaneous emphysema is noted. But significantly less. Chest: [Symmetrical chest expansion crackles and rhonchi at the bases. Cardiac Exam: [Distant S1 and S2, no S3 gallop. No murmur. Abdomen: [Soft, nontender, no megaly, no rebound, no guarding, normal bowel sounds.] Extremities: [No clubbing, trace of bipedal edema, no cyanosis.] Good pulses bilaterally. Neurological Exam: Cannot assess, patient is sedated and paralyzed. Psychiatric: Cannot assess patient is sedated and paralyzed. Skin: No rashes. - Labs CBC & Chem 7: 10/07/21 04:25 10/07/21 04:25 Labs: Abnormal Lab Results - Last 24 Hours (Table) 10/05/21 10/06/21 10/06/21 Range/Units 04:22 04:03 17:47 WBC (3.8-10.6) k/uL RDW (11.5-15.5) % Neutrophils # (1.3-7.7) k/uL Neutrophils # (Manual) (1.3-7.7) k/uL Metamyelocytes # (Man) (0) k/uL Myelocytes # (Manual) (0) k/uL ABG pCO2 (35-45) mmHg ABG pO2 (83-108) mmHg ABG HCO3 (21-25) mmol/L ABG Total CO2 (19-24) mmol/L ABG O2 Saturation (94-97) % Carbon Dioxide (22-30) mmol/L BUN (7-17) mg/dL Glucose (74-99) mg/dL POC Glucose (mg/dL) 195 H (75-99) mg/dL Magnesium 2.5 H (1.6-2.3) mg/dL Procalcitonin 0.14 H (0.02-0.09) ng/mL 10/07/21 10/07/21 10/07/21 Range/Units 00:05 04:25 04:25 WBC 15.9 H (3.8-10.6) k/uL RDW 16.8 H (11.5-15.5) % Neutrophils # 12.9 H (1.3-7.7) k/uL Neutrophils # (Manual) 12.70 H (1.3-7.7) k/uL Metamyelocytes # (Man) 0.64 H (0) k/uL Myelocytes # (Manual) 0.16 H (0) k/uL ABG pCO2 (35-45) mmHg ABG pO2 (83-108) mmHg ABG HCO3 (21-25) mmol/L ABG Total CO2 (19-24) mmol/L ABG O2 Saturation (94-97) % Carbon Dioxide 34 H (22-30) mmol/L BUN 35 H (7-17) mg/dL Glucose 131 H (74-99) mg/dL POC Glucose (mg/dL) 124 H (75-99) mg/dL Magnesium (1.6-2.3) mg/dL Procalcitonin (0.02-0.09) ng/mL 10/07/21 10/07/21 Range/Units 05:55 11:50 WBC (3.8-10.6) k/uL RDW (11.5-15.5) % Neutrophils # (1.3-7.7) k/uL Neutrophils # (Manual) (1.3-7.7) k/uL Metamyelocytes # (Man) (0) k/uL Myelocytes # (Manual) (0) k/uL ABG pCO2 57 H (35-45) mmHg ABG pO2 61 L (83-108) mmHg ABG HCO3 36 H (21-25) mmol/L ABG Total CO2 38 H (19-24) mmol/L ABG O2 Saturation 90.9 L (94-97) % Carbon Dioxide (22-30) mmol/L BUN (7-17) mg/dL Glucose (74-99) mg/dL POC Glucose (mg/dL) 196 H (75-99) mg/dL Magnesium (1.6-2.3) mg/dL Procalcitonin (0.02-0.09) ng/mL Assessment and Plan Assessment: Impression: Acute hypoxic respiratory failure secondary to COVID-19 pneumonia and co mplicated with ARDS. Patient was intubated on 09/25/2021. Acute deep vein thrombosis, on Eliquis. Presently on hold as the patient may undergo tracheostomy and PEG tube placement tomorrow. Acute COVID-19 pneumonia Subcutaneous emphysema, this is a complication of COVID-19 infection/pneumonia Prior history of DVT History of fibromyalgia Degenerative joint disease Mildly elevated liver enzymes secondary to cardona virus infection. Nonsustained ventricular tachycardia, remains on lidocaine. 1 mg/m. Recommendation: Continue lidocaine drip. As per cardiology. Proceed with tracheostomy and PEG tube placement if possible today. Patient did poorly with prone positions, hence no further trials to prone the patient. Continue ventilatory support. Titrate oxygen accordingly and maintain O2 satur ation above 93%. Continue nutritional support/enteral feeding Continue to monitor closely the subcutaneous emphysema on a today seems to be less compared to the last few days. Continue GI and DVT prophylaxis, patient is on Protonix , resume Eliquis after tracheostomy Continue cefepime, empirically. Continue COVID-19 cocktail. Continue to monitor inflammatory markers and address accordingly Continue Decadron. Prognosis remains relatively guarded Mayra was updated yesterday on her status. Patient is critically ill. Critical care time is over 30 minutes. Time with Patient: Greater than 30
--- NOTE | 2021-10-07 16:12 | P.PN ---
Subjective Progress Note Date: 10/07/21 This is a 61-year-old female who was recently admitted with acute COVID-19 pneumonia with acute COVID-19 bilateral interstitial pneumonia and also with transaminitis and being closely monitored. Patient remains in the ICU and currently intubated and sedated with an FiO2 of 70% and PEEP is 18. 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 Patient did have a venous Doppler study done recently which showed left leg DVT and patient is maintained on Eliquis will continue. Patient also continues on empiric antibiotics and awaiting for sputum culture finalized. Patient was started on IV cefepime and will continue. Patient is also continued on oral dexamethasone along with vitamin and zinc supplements and will continue. Patient with some mild volume overload and given a dose of IV Lasix push today. 09/29/2021 Patient is seen and evaluated this morning continues to be closely monitored in the ICU and continues to be on mechanical ventilation and sedated. FiO2 was increased at 80% with a PEEP of 18 and oxygen saturations between 87-91%. Patient developing subcutaneous emphysema in the neck and chest wall area and chest x-ray today shows bilateral multifocal and confluent opacification is redemonstrated consistent with COVID-19 infection with a new small left apical pneumothorax estimated under 5% with new pneumomediastinum and recurrent overlying subcutaneous emphysema noted. Patient is white blood count mildly elevated at 16.1 and is continued on oral dexamethasone along with oral eliquis for anticoagulation. Patient continues to be on IV cefepime and blood and sputum cultures are negative thus far. 09/30/2021 Patient is seen today continues to be closely monitored in the ICU with multiple medical consultations following. Patient continues to be mechanically intubated and sedated with continued subcutaneous emphysema noted. Chest xray shows a trace left apical pneumothorax that is minimally smaller 7mm versus 1cm previously, extensive bilateral subcutaneous emphysema persists and diffuse interstitial changes and bilateral patchy opacities persist with slight improvement in aeration in the lower lungs. Per nursing staff corbin was clogged with copious amounts of white discharge and will add diflucan and corbin catheter has been changed and draining adequately. Patient continues on IV cefepime. Patient tolerating tube feeds and will continue. 10/01/2021 Patient is seen and evaluated in follow up this morning and continues to be closely monitored. Multiple medical consultations following and patient c ontinues to be on mechanical vent and sedated. Patient continues on IV Cefepime and diflucan. Patient chest xray today shows stable extensive subcutaneous emphysema, no pneumothorax, and patchy bilateral lung infiltrates remain present. INflammatory markers trending down. 10/04/2021 Patient is seen in follow-up continues to be closely monitored in the ICU. Patient remains on mechanical vent with an FI02 of 65% and peep is 18. Weaning trials being attempted with pulmonary interactive media marketing director following closely. Patient continues with extensive subq emphysema noted on exam. 10/05/2021 Patient Is seen and evaluated this morning with continued attempts at weaning and continues on mechanical vent and intubated with pulmonary interactive media marketing director following closely. Patient remains on Eliquis which will be held as surgery Dr. Nelson was consulted for possible PEG and trach tube placement for unsuccessful attempts at weaning from ventilation and prolonged hospitalization on mechanical vent. Chest x-ray today shows recurrent tiny left apical pneumothorax estimated under 5% with worsening overlying subcutaneous emphysema and again pneumomediastinum redemonstrated with multifocal confluent opacification's redemonstrated consistent with COVID-19 infection and/or arts are redemonstrated with no significant change from one day previously. Patient continues on FiO2 of 65% and PEEP was weaned down to 14 today. IV cefepime discontinued. 10/06/2021 Patient is seen in follow-up this morning per nursing staff patient had multiple runs of ectopy an irregular heart rate and rhythms with PVCs and cardiology consulted. Patient was placed on lidocaine drip and was originally on eliquis is currently on hold for possible PEG and trach placement with general surgery following. Patient had difficulty maintaining oxygen saturations and FiO2 was increased to 100% and PEEP continues at 14. Multiple medical consultations following and patient continues on oral steroids along with vitamin and zinc supplements along with fluconazole. Patient being started on IV Lasix daily and recommend close monitoring of electrolytes and kidney functions. 10/07/2021 Patient is seen in follow-up this morning continues to be monitored closely in the ICU with multiple medical consultations following. Patient is currently on mechanical vent with an FiO2 of 80% and PEEP is 16. General surgery also following for possible PEG and trach placement and will need to discuss with surgery about when this will occur. Patient remains on fluconazole. She also continues on vitamin and zinc supplements along with oral dexamethasone, clevidipine, Nimbex, IV Lasix, fentanyl and propofol and is off norepinephrine. Chest x-ray shows stable bilateral lung infiltrates. Review of systems: Unable to obtain as patient is mechanically intubated and sedated Labs: WBC is 15.9, hemoglobin is 11.7, platelets 325, sodium 139, potassium 3.7, BUN 35, creatinine 0.75, calcium 8.7. Active Medications Artificial Tears (Artificial Tears-Hypromellose Drops 15 Ml Btl) 2 drops BOTH EYES QID [facility] Last Admin: 10/07/21 12:01 Dose: 2 drops Documented by: Ascorbic Acid (Ascorbic Acid 500 Mg Tab) 500 mg PO BID [facility] Last Admin: 10/07/21 07:56 Dose: 500 mg Documented by: Chlorhexidine Gluconate (Chlorhexidine Gluconate 15 Ml Cup) 15 ml MUCOUS MEM BID [facility] Last Admin: 10/07/21 07:55 Dose: 15 ml Documented by: Dexamethasone (Dexamethasone 2 Mg Tab) 6 mg PO DAILY [facility] Last Admin: 10/07/21 07:55 Dose: 6 mg Documented by: Docusate Sodium (Docusate Oral Soln 100 Mg/10 Ml Cup) 100 mg PO DAILY PRN PRN Reason: Constipation Last Admin: 10/05/21 16:57 Dose: 100 mg Documented by: Ergocalciferol (Ergocalciferol 1,250 Mcg (50,000 Iu) Capsule) 1,250 mcg PO [facility] Last Admin: 10/03/21 08:38 Dose: Not Given Documented by: Furosemide (Furosemide 10 Mg/Ml 4 Ml Vial) 40 mg IV DAILY [facility] Last Admin: 10/07/21 07:56 Dose: 40 mg Documented by: Propofol 1,000 mg/ IV Solution 100 mls @ 0 mls/hr IV .Q0M [facility]; Protocol Last Admin: 10/07/21 12:00 Dose: 50 mcg/kg/min, 28.89 mls/hr Documented by: Cisatracurium Besylate 200 mg/ (Sodium Chloride) 200 mls @ 5.16 mls/hr IV .Q24H [facility]; Protocol Last Titration: 10/07/21 04:48 Dose: 2 mcg/kg/min, 10.32 mls/hr Documented by: Sodium Chloride (Saline 0.9%) 1,000 mls @ 20 mls/hr IV .Q24H [facility] Last Admin: 10/07/21 01:36 Dose: 20 mls/hr Documented by: Fentanyl Citrate 2,500 mcg/ (Sodium Chloride) 250 mls @ 4.6 mls/hr IV .Q24H [facility]; Protocol Last Admin: 10/07/21 11:57 Dose: 1 mcg/kg/hr, 9.2 mls/hr Documented by: Fluconazole/Sodium Chloride (100 mg/ IV Solution) 50 mls @ 50 mls/hr IVPB DAILY@1200 [facility] Last Admin: 10/07/21 12:00 Dose: 50 mls/hr Documented by: Clevidipine 25 mg/ IV Solution 50 mls @ 2 mls/hr IV .Q24H [facility]; Protocol Last Titration: 10/07/21 10:56 Dose: 2 mg/hr, 4 mls/hr Documented by: Lidocaine HCl/Dextrose 2,000 (mg/ IV Solution) 250 mls @ 7.5 mls/hr IV .Q24H [facility] Last Admin: 10/07/21 00:38 Dose: 1 mg/min, 7.5 mls/hr Documented by: Norepinephrine Bitartrate 32 (mg/ Sodium Chloride) 250 mls @ 2.257 mls/hr IV .Q24H [facility]; Protocol Last Admin: 10/06/21 19:53 Dose: Not Given Documented by: Insulin Aspart (Insulin Aspart (Novolog) 100 Unit/Ml Vial) 0 unit SQ Q6HR [facility]; Protocol Last Admin: 10/07/21 12:00 Dose: 2 unit Documented by: Miscellaneous Information (Pneumonia Protocol Utilized 1 Each Misc) 1 each PO ONCE PRN PRN Reason: Per Protocol Miscellaneous Information (Potassium Replacement Protocol 1 Each Misc) 1 each MISCELLANE DAILY PRN; Protocol PRN Reason: Per Protocol Naloxone HCl (Naloxone 0.4 Mg/Ml 1 Ml Vial) 0.2 mg IV Q2M PRN PRN Reason: Opioid Reversal Pantoprazole Sodium (Pantoprazole 40 Mg/10 Ml Vial) 40 mg IV DAILY [facility] Last Admin: 10/07/21 07:56 Dose: 40 mg Documented by: Zinc Sulfate (Zinc Sulfate 220 Mg Cap) 220 mg PO DAILY [facility] Last Admin: 10/07/21 07:56 Dose: 220 mg Documented by: Physical Exam: Gen: This is a 61-year-old female currently sedated and intubated. mechanical ventilation Fio2 titrated down to 80% with a PEEP of 16 HEENT: Head is atraumatic, normocephalic. Pupils equal, round. Sclerae is anicteric. NECK: Supple. No JVD. No lymphadenopathy. No thyromegaly. subcutaneous emphysema noted in the neck and chest wall area bilaterally. LUNGS: Diminished breath sounds bilaterally with coarse rhonchi and crackles noted. No intercostal retractions. HEART: S1, S2 are muffled ABDOMEN: Soft. Bowel sounds are present. No masses. No tenderness. EXTREMITIES: No pedal edema. No calf tenderness. Bilateral upper extremity moon ma noted NEUROLOGICAL: Patient is currently intubated and sedated Assessment: Acute COVID-19 infection with acute COVID-19 bilateral interstitial pneumonia with hypoxic hypercarbic respiratory failure on mechanical vent Subcutaneous emphysema of the neck and chest with a left apical pneumothorax l ess than 5% Non-sustained ventricular tachycardia Acute left leg deep vein thrombosis Acute respiratory acidosis Primary hypercoagulable state and factor V week deficiency Possible candidiasis secondary to prolonged indwelling Corbin catheter Mild transaminitis, possibly secondary to COVID-19 History of DVT History of degenerative joint disease History of fibromyalgia Acute respiratory acidosis Increased white blood count anemia, of undetermined etiology Elevated inflammatory markers of COVID-19 Obesity with a body mass index of 38.1 Full code Plan: Recommend to continue with current medications and follow along closely with multiple medical consultations. Prognosis remains guarded with multiple complex medical issues noted. Patient continues on mechanical ventilation and having difficulties overnight maintaining oxygen saturations an FiO2 was at 100% and titrated down to 80% with PEEP 14. No room for weaning attempts today. Cardiology following and continued on lidocaine drip. Patient has had prolonged hospitalization and prolonged mechanical ventilation and general surgery Dr. Nelson consulted for PEG and trach placement. Will continue to hold eliquis. Recommend to continue with current medications. Chest x-ray reviewed as mentioned above. Recommend repeat labs and continued close monitoring. Again due to multiple complex medical issues prognosis is quite guarded. Objective - Vital Signs Vital signs: Vital Signs Temp 97.4 F L 10/07/21 04:00 Pulse 67 10/07/21 07:00 Resp 30 H 10/07/21 07:00 BP 109/53 10/07/21 07:00 Pulse Ox 91 L 10/07/21 07:00 Intake & Output 10/06/21 10/07/21 10/07/21 18:59 06:59 18:59 Intake Total 1728.722 835.270 127.352 Output Total 2425 600 Balance -696.278 235.270 127.352 Weight 96.3 kg 96.3 kg Intake: IV 1120 120 .9 120 120 Sodium Chloride 0.9% 1, 1000 000 ml @ 999 mls/hr IV . Q1H1M [facility] Rx#:[id number] Intake, IV Titration 398.722 645.270 127.352 Amount Cisatracurium 200 mg In 141.255 239.08 Sodium Chloride 0.9% 180 ml @ 1 MCG/KG/MIN 5.16 mls/hr IV .Q24H [facility] Rx#: [id number] Clevidipine Butyrate 25 57.467 38.267 40.2 mg In Empty Bag 1 bag @ 1 MG/HR 2 mls/hr IV .Q24H [facility] Rx#:[id number] Lidocaine-D5w Pmx 2G/ 182.75 250Ml 2,000 mg In Dextrose/Water 1 250ml. bag @ 1 MG/MIN 7.5 mls/hr IV .Q24H [facility] Rx#: [id number] propofoL 1,000 mg In 200 185.173 87.152 Empty Bag 1 bag @ Titrate IV .Q0M [facility] Rx#: [id number] Tube Feeding 120 40 Other 90 30 Output: Urine 2425 600 Other: Voiding Method Indwelling Catheter Indwelling Catheter ABP, PAP, CO, CI - Last Documented Arterial Blood Pressure 124/50 - Labs CBC & Chem 7: 10/07/21 04:25 10/07/21 04:25 Labs: Abnormal Lab Results - Last 24 Hours (Table) 10/05/21 10/06/21 10/06/21 Range/Units 04:22 04:03 11:40 WBC (3.8-10.6) k/uL RDW (11.5-15.5) % Neutrophils # (1.3-7.7) k/uL Neutrophils # (Manual) (1.3-7.7) k/uL Metamyelocytes # (Man) (0) k/uL Myelocytes # (Manual) (0) k/uL ABG pCO2 (35-45) mmHg ABG pO2 (83-108) mmHg ABG HCO3 (21-25) mmol/L ABG Total CO2 (19-24) mmol/L ABG O2 Saturation (94-97) % Carbon Dioxide (22-30) mmol/L BUN (7-17) mg/dL Glucose (74-99) mg/dL POC Glucose (mg/dL) 149 H (75-99) mg/dL Magnesium 2.5 H (1.6-2.3) mg/dL Procalcitonin 0.14 H (0.02-0.09) ng/mL 10/06/21 10/07/21 10/07/21 Range/Units 17:47 00:05 04:25 WBC 15.9 H (3.8-10.6) k/uL RDW 16.8 H (11.5-15.5) % Neutrophils # 12.9 H (1.3-7.7) k/uL Neutrophils # (Manual) 12.70 H (1.3-7.7) k/uL Metamyelocytes # (Man) 0.64 H (0) k/uL Myelocytes # (Manual) 0.16 H (0) k/uL ABG pCO2 (35-45) mmHg ABG pO2 (83-108) mmHg ABG HCO3 (21-25) mmol/L ABG Total CO2 (19-24) mmol/L ABG O2 Saturation (94-97) % Carbon Dioxide (22-30) mmol/L BUN (7-17) mg/dL Glucose (74-99) mg/dL POC Glucose (mg/dL) 195 H 124 H (75-99) mg/dL Magnesium (1.6-2.3) mg/dL Procalcitonin (0.02-0.09) ng/mL 10/07/21 10/07/21 Range/Units 04:25 05:55 WBC (3.8-10.6) k/uL RDW (11.5-15.5) % Neutrophils # (1.3-7.7) k/uL Neutrophils # (Manual) (1.3-7.7) k/uL Metamyelocytes # (Man) (0) k/uL Myelocytes # (Manual) (0) k/uL ABG pCO2 57 H (35-45) mmHg ABG pO2 61 L (83-108) mmHg ABG HCO3 36 H (21-25) mmol/L ABG Total CO2 38 H (19-24) mmol/L ABG O2 Saturation 90.9 L (94-97) % Carbon Dioxide 34 H (22-30) mmol/L BUN 35 H (7-17) mg/dL Glucose 131 H (74-99) mg/dL POC Glucose (mg/dL) (75-99) mg/dL Magnesium (1.6-2.3) mg/dL Procalcitonin (0.02-0.09) ng/mL
--- NOTE | 2021-10-07 17:25 | P.PN ---
Subjective Progress Note Date: 10/07/21 Principal diagnosis: Respiratory failure Patient has been somewhat stable on the ventilator since yesterday evening. They tried to prone position the patient yesterday and the patient did not tolerate that well. Patient is on 80% FiO2 and 16 of PEEP. X-rays still show significant volume of subcutaneous emphysema without obvious pneumothorax. No further ventricular tachycardia and lidocaine drip was being weaned off. Objective - Vital Signs Vital signs: Vital Signs Temp 97.2 F L 10/07/21 16:00 Pulse 64 10/07/21 16:00 Resp 31 H 10/07/21 16:00 BP 119/64 10/07/21 16:00 Pulse Ox 91 L 10/07/21 16:00 Intake & Output 10/06/21 10/07/21 10/07/21 18:59 06:59 18:59 Intake Total 1728.722 894.557 8669.345 Output Total 2425 600 1350 Balance -696.278 235.270 -310.655 Weight 96.3 kg 96.3 kg Intake: IV 1120 120 .9 120 120 Sodium Chloride 0.9% 1, 1000 000 ml @ 999 mls/hr IV . Q1H1M [facility] Rx#:[id number] Intake, IV Titration 398.722 645.270 979.345 Amount Cisatracurium 200 mg In 141.255 239.08 123.324 Sodium Chloride 0.9% 180 ml @ 1 MCG/KG/MIN 5.16 mls/hr IV .Q24H [facility] Rx#: [id number] Clevidipine Butyrate 25 57.467 38.267 49.867 mg In Empty Bag 1 bag @ 1 MG/HR 2 mls/hr IV .Q24H [facility] Rx#:[id number] Fluconazole in NaCl,Iso- 50 Osm 100 mg In Saline 1 50ml.bag @ 50 mls/hr IVPB DAILY@1200 [facility] Rx#: [id number] Lidocaine-D5w Pmx 2G/ 182.75 108.125 250Ml 2,000 mg In Dextrose/Water 1 250ml. bag @ 1 MG/MIN 7.5 mls/hr IV .Q24H [facility] Rx#: [id number] Potassium Chloride 20 meq 100 In Water For Injection 1 100ml.bag @ 50 mls/hr IVPB ONCE [facility] Rx#: [id number] Sodium Chloride 0.9% 1, 40 000 ml @ 20 mls/hr IV . Q24H [facility] Rx#:[id number] fentaNYL (PF) 2,500 mcg 236.133 In Sodium Chloride 0.9% 200 ml @ 0.5 MCG/KG/HR 4. 6 mls/hr IV .Q24H [facility] Rx# :[id number] propofoL 1,000 mg In 200 185.173 271.896 Empty Bag 1 bag @ Titrate IV .Q0M [facility] Rx#: [id number] Oral 60 Tube Feeding 120 40 Other 90 30 Output: Urine 2425 600 1350 Other: Voiding Method Indwelling Catheter Indwelling Catheter Indwelling Catheter ABP, PAP, CO, CI - Last Documented Arterial Blood Pressure 119/53 - Exam Neck and chest with subcutaneous emphysema and angiocatheters present overall volume of swelling slightly decreased Abdomen: Soft, nontender, nondistended - Labs CBC & Chem 7: 10/07/21 04:25 10/07/21 04:25 Labs: Abnormal Lab Results - Last 24 Hours (Table) 10/06/21 10/07/21 10/07/21 Range/Units 17:47 00:05 04:25 WBC 15.9 H (3.8-10.6) k/uL RDW 16.8 H (11.5-15.5) % Neutrophils # 12.9 H (1.3-7.7) k/uL Neutrophils # (Manual) 12.70 H (1.3-7.7) k/uL Metamyelocytes # (Man) 0.64 H (0) k/uL Myelocytes # (Manual) 0.16 H (0) k/uL ABG pCO2 (35-45) mmHg ABG pO2 (83-108) mmHg ABG HCO3 (21-25) mmol/L ABG Total CO2 (19-24) mmol/L ABG O2 Saturation (94-97) % Carbon Dioxide (22-30) mmol/L BUN (7-17) mg/dL Glucose (74-99) mg/dL POC Glucose (mg/dL) 195 H 124 H (75-99) mg/dL 10/07/21 10/07/21 10/07/21 Range/Units 04:25 05:55 11:50 WBC (3.8-10.6) k/uL RDW (11.5-15.5) % Neutrophils # (1.3-7.7) k/uL Neutrophils # (Manual) (1.3-7.7) k/uL Metamyelocytes # (Man) (0) k/uL Myelocytes # (Manual) (0) k/uL ABG pCO2 57 H (35-45) mmHg ABG pO2 61 L (83-108) mmHg ABG HCO3 36 H (21-25) mmol/L ABG Total CO2 38 H (19-24) mmol/L ABG O2 Saturation 90.9 L (94-97) % Carbon Dioxide 34 H (22-30) mmol/L BUN 35 H (7-17) mg/dL Glucose 131 H (74-99) mg/dL POC Glucose (mg/dL) 196 H (75-99) mg/dL Assessment and Plan (1) Respiratory failure Narrative/Plan: Since initially seen 48 hours ago the patient has had a decline in her respiratory status. She does seem about the same or maybe slightly improved fr om yesterday morning. Patient did not tolerate prone positioning. I had the patient evaluated by anesthesia. Dr. Sanchez came and assessed the patient earlier this afternoon as she was scheduled for tracheostomy and PEG tube placement. After discussing with him we decided to hold off on tracheostomy and PEG tube placement today given the concerns for perioperative morbidity and mortality. We'll continue to reassess on a daily basis. Case discussed with the patient's daughter Carla by phone. Current Visit: Yes Status: Acute Code(s): J96.90 - RESPIRATORY FAILURE, UNSP, UNSP W HYPOXIA OR HYPERCAPNIA SNOMED Code(s): 507687288
[2021-10-07 18:02] LABS: Glucose,Whole Blood 134 mg/dL (75-99)
[2021-10-07] MEDS: NOREPINEPHRINE 32 MG in SODIUM CHLORIDE 0.9% 218 ML IV SCH (18:14)
[2021-10-07] MEDS: APIXABAN 5 MG TAB PO SCH (19:59)
[2021-10-08 00:11] LABS: Glucose,Whole Blood 149 mg/dL (75-99)
[2021-10-08] MEDS: LIDOCAINE-D5W PMX 2G/250ML 2,000 MG in DEXTROSE/WATER 1 250ML.BAG IV SCH ×2 (00:22→23:52)
[2021-10-08] MEDS: INSULIN ASPART (NovoLOG) 100 UNIT/ML VIAL SQ SCH ×5 (00:23→23:52)
[2021-10-08] MEDS: CLEVIDIPINE BUTYRATE 25 MG in EMPTY BAG 1 BAG IV SCH (03:50)
[2021-10-08] MEDS: SODIUM CHLORIDE 0.9% 1,000 ML IV SCH (04:05)
[2021-10-08 04:53] LABS: ABG Base Excess 13.5 mmol/L; ABG HCO3 38 mmol/L (21-25); ABG Oxygen Saturation 91.4 % (94-97); ABG PCO2 57 mmHg (35-45); ABG PH 7.43 (7.35-7.45); ABG PO2 61 mmHg (83-108); ABG TCO2 40 mmol/L (19-24); Allen Test Performed? Yes
[2021-10-08 05:41] LABS: Anisocytosis Slight; Basophils % (A) 0 %; Eosinophils # (A) 0.1 k/uL (0-0.7); Eosinophils % (A) 1 %; HGB 10.4 gm/dL (11.4-16.0); Hypochromasia Moderate; Lymphocytes # (A) 1.3 k/uL (1.0-4.8); Lymphocytes % (A) 10 %; MCH 26.8 pg (25.0-35.0); MCHC 29.8 g/dL (31.0-37.0); MCV 89.9 fL (80.0-100.0); Mean Platelet Volume 7.9; Monocytes # (A) 0.7 k/uL (0-1.0); Monocytes % (A) 5 %; Neutrophils # (A) 10.6 k/uL (1.3-7.7); Neutrophils % (A) 82 %; Platelet Count 255 k/uL (150-450); RDW 17.2 % (11.5-15.5)
[2021-10-08 05:52] LABS: Calcium 8.4 mg/dL (8.4-10.2); Potassium 4.2 mmol/L (3.5-5.1)
[2021-10-08] MEDS: NOREPINEPHRINE 32 MG in SODIUM CHLORIDE 0.9% 218 ML IV SCH (05:53)
--- NOTE | 2021-10-08 06:05 | XR ---
EXAMINATION TYPE: XR chest 1V portable DATE OF EXAM: 10/08/2021 CLINICAL HISTORY: Difficulty breathing progress study. TECHNIQUE: Single AP portable semiupright view of the chest is obtained. COMPARISON: Chest x-ray from one day earlier and older studies FINDINGS: Stable endotracheal and orogastric tubes. Stable left-sided subclavian central venous cath eter. Persistent bilateral multifocal and confluent increased opacities. Cardiac silhouette size is stable and upper limits of normal. Persistent overlying subcutaneous emphysema is present. No visualized pne umothorax currently. Pneumomediastinum is redemonstrated. Osseous structures are intact. IMPRESSION colon overlying subcutaneous emphysema and pneumomediastinum redemonstrated. Bilateral Mul tifocal and confluent opacities redemonstrated consistent with covid-19 infection and/or ARDS are red emonstrated. No significant change from one day earlier.
[2021-10-08] MEDS ORDERED: NOREPINEPHRIN 4 MG-0.9% NS PMX 4 MG/250 ML ML IV ONE (06:51)
[2021-10-08] MEDS: CISATRACURIUM 200 MG in SODIUM CHLORIDE 0.9% 180 ML IV SCH ×2 (06:58→20:49)
[2021-10-08] MEDS: NOREPINEPHRINE 4 MG in SODIUM CHLORIDE 0.9% 250 ML IV SCH ×2 (07:15→19:31)
[2021-10-08] MEDS: ASCORBIC ACID 500 MG TAB PO SCH ×2 (08:26→19:49)
[2021-10-08] MEDS: dexAMETHasone 2 MG TAB PO SCH (08:26)
[2021-10-08] MEDS: ZINC SULFATE 220 MG CAP PO SCH (08:26)
[2021-10-08] MEDS: APIXABAN 5 MG TAB PO SCH ×2 (08:26→19:49)
[2021-10-08] MEDS: ARTIFICIAL TEARS-HYPROMELLOSE DROPS 15 ML BTL BOTH EYES SCH ×4 (08:26→19:49)
[2021-10-08] MEDS: PANTOPRAZOLE 40 MG/10 ML VIAL IV SCH (08:26)
[2021-10-08] MEDS: CHLORHEXIDINE GLUCONATE 15 ML CUP MUCOUS MEM SCH ×2 (08:26→19:49)
[2021-10-08] MEDS: FUROSEMIDE 10 MG/ML 4 ML VIAL IV SCH (08:26)
--- NOTE | 2021-10-08 11:15 | P.PN ---
Subjective This is a pleasant 61-year-old female past medical history significant for factor V Leiden treated with warfarin, DVT, fibromyalgia, pneumonia. 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 She is acute hypoxic respiratory failure secondary to Covid pneumonia requiring intubation and mechanical ventilation. Patient remains on Eliquis for DVT. we have be asked to see for nonsustained runs of ventricular tachycardia, multifocal PVCs, and ectopy. The lidocaine drip has been discontinued for 24 hours. She was start on clevidipine, she then became hypotension. Clevidipine was stopped and levo was restarted. She she began having idioventricular beats with the levo. Levo was stopped. Patient's blood pressure has been maintained on her own at 127/54. If patient becomes hypotensive again will consider starting dopamine over the levo to prevent ec topy. She is examined today in ICU vented with no signs of acute distress. Patient's heart rate 55, respirations 30, afebrile, mechanically ventilated. DIAGNOSTICS Telemetry monitoring shows patient in sinus rhythm with occasional PVCs Chest xray subcutaneous emphysema and pneumomediastinum redemonstrated. Bilateral multifocal anti-insulin outpacing these stent with Covid. No significant changes from prior Laboratory reviewed, WBC 10.4, hemoglobin 13, platelets 255, sodium 138, potassium 4.2, BUN 29, creatinine 0.84. Objective - Vital Signs Vital signs: Vital Signs Temp 97.9 F 10/08/21 08:00 Pulse 55 L 10/08/21 10:00 Resp 30 H 10/08/21 10:00 BP 105/55 10/08/21 09:00 Pulse Ox 94 L 10/08/21 10:00 Intake & Output 10/07/21 10/08/21 10/08/21 18:59 06:59 18:59 Intake Total 1159.345 858.953 224.801 Output Total 1450 830 410 Balance -290.655 28.953 -185.199 Weight 96.8 kg 96.8 kg Intake: IV 110 10 .9 110 10 Intake, IV Titration 1089.345 538.953 204.801 Amount Cisatracurium 200 mg In 123.324 154.757 Sodium Chloride 0.9% 180 ml @ 1 MCG/KG/MIN 5.16 mls/hr IV .Q24H [facility] Rx#: [id number] Clevidipine Butyrate 25 49.867 85.133 0 mg In Empty Bag 1 bag @ 1 MG/HR 2 mls/hr IV .Q24H [facility] Rx#:[id number] Fluconazole in NaCl,Iso- 50 Osm 100 mg In Saline 1 50ml.bag @ 50 mls/hr IVPB DAILY@1200 [facility] Rx#: [id number] Lidocaine-D5w Pmx 2G/ 108.125 70.125 250Ml 2,000 mg In Dextrose/Water 1 250ml. bag @ 1 MG/MIN 7.5 mls/hr IV .Q24H [facility] Rx#: [id number] Norepinephrine 32 mg In 0.948 Sodium Chloride 0.9% 218 ml @ 0.05 MCG/KG/MIN 2. 257 mls/hr IV .Q24H [facility] Rx#:[id number] Norepinephrine 4 mg In 18.44 Sodium Chloride 0.9% 250 ml @ 0.05 MCG/KG/MIN 18. 44 mls/hr IV .[id number] [facility] Rx#:[id number] Potassium Chloride 20 meq 100 In Water For Injection 1 100ml.bag @ 50 mls/hr IVPB ONCE ONE Rx#: [id number] Sodium Chloride 0.9% 1, 50 10 30 000 ml @ 20 mls/hr IV . Q24H [facility] Rx#:[id number] fentaNYL (PF) 2,500 mcg 236.133 In Sodium Chloride 0.9% 200 ml @ 0.5 MCG/KG/HR 4. 6 mls/hr IV .Q24H [facility] Rx# :[id number] propofoL 1,000 mg In 371.896 288.115 86.236 Empty Bag 1 bag @ Titrate IV .Q0M [facility] Rx#: [id number] Oral 60 Tube Feeding 10 120 10 Other 90 Output: Urine 1450 830 410 Other: Voiding Method Indwelling Catheter Indwelling Catheter Indwelling Catheter ABP, PAP, CO, CI - Last Documented Arterial Blood Pressure 178/65 - Exam Limited due to Covid pneumonia PHYSICAL EXAMINATION Vital signs reviewed CONSTITUTIONAL: No apparent distress. HEENT: Head is normocephalic. NECK: No JVD. RESPIRATORY: Sedated and mechanically ventilated CARDIAC: Regular rate and rhythm. NEUROLOGIC EXAMINATION: Patient is sedated - Labs CBC & Chem 7: 10/08/21 04:52 10/08/21 04:52 Labs: Abnormal Lab Results - Last 24 Hours (Table) 10/07/21 10/07/21 10/08/21 Range/Units 11:50 18:00 00:09 WBC (3.8-10.6) k/uL Hgb (11.4-16.0) gm/dL MCHC (31.0-37.0) g/dL RDW (11.5-15.5) % Neutrophils # (1.3-7.7) k/uL ABG pCO2 (35-45) mmHg ABG pO2 (83-108) mmHg ABG HCO3 (21-25) mmol/L ABG Total CO2 (19-24) mmol/L ABG O2 Saturation (94-97) % Carbon Dioxide (22-30) mmol/L BUN (7-17) mg/dL Glucose (74-99) mg/dL POC Glucose (mg/dL) 196 H 134 H 149 H (75-99) mg/dL 10/08/21 10/08/21 10/08/21 Range/Units 04:50 04:52 04:52 WBC 13.0 H (3.8-10.6) k/uL Hgb 10.4 L (11.4-16.0) gm/dL MCHC 29.8 L (31.0-37.0) g/dL RDW 17.2 H (11.5-15.5) % Neutrophils # 10.6 H (1.3-7.7) k/uL ABG pCO2 57 H (35-45) mmHg ABG pO2 61 L (83-108) mmHg ABG HCO3 38 H (21-25) mmol/L ABG Total CO2 40 H (19-24) mmol/L ABG O2 Saturation 91.4 L (94-97) % Carbon Dioxide 36 H (22-30) mmol/L BUN 29 H (7-17) mg/dL Glucose 111 H (74-99) mg/dL POC Glucose (mg/dL) (75-99) mg/dL Assessment and Plan Assessment: Nonsustained ventricular tachycardia Idioventricular rhythm Hypotensive History of hypertension Left lower extremity deep vein thrombosis Acute hypoxic respiratory failure secondary to Covid pneumonia requiring mechanical ventilation Factor V Leiden Plan: Continue with Eliqus Continue monitor blood patient becomes hypotensive will consider starting dopamine over levo Continue with all other current cardiac medications Continue telemetry monitoring Further recommendations based on clinical course The above impression and plan of care have been discussed and directed by the signing physician. Genesis Jewell, nurse practitioner, acting as scribe for signing physician.
[2021-10-08 11:37] LABS: Glucose,Whole Blood 148 mg/dL (75-99)
[2021-10-08] MEDS: FLUCONAZOLE IN NACL,ISO-OSM 100 MG in SALINE 1 50ML.BAG IVPB SCH (11:59)
--- NOTE | 2021-10-08 12:08 | P.PN ---
Subjective Progress Note Date: 10/08/21 Principal diagnosis: Acute hypoxic respiratory failure secondary to COVID-19 pneumonia 10/03/2021, the patient remains essentially unchanged. In fact I haven't seen much of a progress on this patient's condition over the past 1 week. She remains in ARDS post COVID 19 related pneumonia on the chest x-ray showed diffuse bilateral pulmonary infiltrates along with some subcutaneous emphysema. The patient remains sedated and paralyzed. The patient remains on propofol running at 50 mcg/kg per minute and the patient is also on fentanyl at 1 mcg/kg per minute and the patient is also on Nimbex at 1.5 Ash respiratory kilo gram per minutes. The mechanical ventilator settings essentially unchanged. I was able to drop her FiO2 down to 65%. PEEP is at 18. The Tidal volumes of 325 and the rate is at 26. Peak airway pressure is 41. Chest x-ray is unchanged. This appears emphysema has somewhat improved. angio Catheter replaced in to deflate the edema further. She remains on anticoagulation with Eliquis regarding her lower extremity DVT. Inflammatory markers have not been checked today. Most recent inflammatory markers showed marked drop in the LDH and a CRP. The patient remains on Decadron. The patient remains on Eliquis. Decadron is being used at a dose of 60 mg IV on a daily basis. The patient remains on empiric antibiotic coverage with IV cefepime and Diflucan. Hemodynamically stable. She is on no pressors. No fever. No chills. Her overall fluid balance has been -221 mL over the past 24 hours. She continues to have some edema in the upper and lower extremities bilaterally. She is tolerating her enteral feeding for nutritional support. She is on vitamin H. The rate of 24 mL an hour. She is having bowel movements with the help of Col ricky. Cardiac rhythm remains sinus. Her white cell count of 10.1 with a hemoglobin of 9.5. Platelet count is at 252. Creatinine is at 43 with a creatinine of 0.5. Cultures of been all negative. The patient has been on cefepime since 09/28/2021. Patient was reevaluated today on 10/04/2021, patient remains in the ICU, intubated and mechanically ventilated. Patient was initially intubated on 09/25/2021, her ventilator settings are assist control rate 26, volume 325 FiO2 65% and PEEP is 18. ABG showed a pO2 of 69 pCO2 of 59 pH of 7.38. Respiratory rate was increased to 30 and the flow rate was cut down to 50 L/m. Patient remains on propofol at 60 mcg/kg/m Nimbex at 2 mcg/kg/m fentanyl 1 mcg/kg/h, and on clevidipine at 4 mg per hour. Patient is receiving enteral feeding vital HP at . Patient is on Decadron 6 mg IV push daily, she is on Eliquis because she was diagnosed as having left lower extremity deep vein thrombosis. Chest x-ray continues to show bilateral interstitial infiltrates, subcu emphysema, adequate positioning of the endotracheal tube, and that catheter/triple-lumen catheter. Patient is sedated and paralyzed. WBC count is 10.8 hemoglobin is 9.2. Electrolytes are normal renal profile is normal liver enzymes are relatively unremarkable. Slightly elevated ALT 48, blood sugar is 134 today. Patient was reevaluated today on 10/05/2021, patient remains in the ICU, intubated, mechanically ventilated. Patient is on assist control rate of 30, tidal volume is 325, PEEP was cut down to 14, it was initially at 18, FiO2 is 65%. And I plan to taper the FiO2 down if tolerated. ABG earlier today showed a pO2 of 58 pCO2 of 63 pH of 7.39, however her O2 saturation on the monitor. Pulse oximetry is actually 99%. Hence I cut down the PEEP, and kept her on the same FiO2 for now. She seemed to be doing a bit better with lower PEEP. Patient remains on Nimbex at 2 mcg/kg/m fentanyl and 0.5 mcg/kg per hour. Patient is receiving vital HP at 10 mL per hour. And she is on propofol at 40 mcg/kg/m. Peak airway pressure today is 57 plateau pressure is 31. Patient is off clevidipine this morning. And considering her leukocytosis is noted on the WBC count today being 18, I will keep the patient on cefepime for now. Asked x- ray is basically showing no major change. And today I discussed her condition with her daughter over the phone, and recommended a tracheostomy and PEG tube placement, the daughter requested Dr. balbuena to do it. And we will consult Dr. balbuena for that purpose. Not much of a change otherwise over the last 24 hours, patient remains on Eliquis for left lower extremity deep vein thrombosis. A hayward seems to have worsening subcutaneous emphysema today, I went ahead and placed to 14-gauge Angiocaths, one in the left anterior chest and one in the right anterior chest in the subcutaneous tissue. Hoping that will decompress her subcutaneous emphysema. This was done under sterile conditions. Patient was reevaluated today on 10/06/2021, patient remains intubated and mechanically ventilated, remains in the ICU, she developed last night intermittent episodes of nonsustained ventricular tachycardia, patient was seen by cardiology on consultation, recommended lidocaine, and she is on lidocaine drip. Patient required increase in her FiO2, and she is now on assist control rate of 30, tidal volume 325 FiO2 is 100%, PEEP is at 14, increased PEEP to 16 this morning. FiO2 was increased apparently last night the 100%. ABG this mor minna on 100% FiO2 showed a pO2 of 67 pCO2 of 58 pH of 7.44. I did cut down the FiO2 to 90%, and I recommended that the patient could be tried on prone position hopefully today. Also recommended a dose of Lasix 40 mg IV push to be given. Chest x-ray continues to show significantdisease, ARDS, not much of a change noted on the chest x-ray, continues to have significant subcutaneous emphysema but clinically improved compared to the subcutaneous emphysema noted yesterday. Ration is now on lidocaine drip, she is also on propofol 50 Nimbex at 2.5, fentanyl at 1 mcg/kg/h, and IV fluid at 20 mL per hour in the form of 0.9 normal saline. Again her PEEP was increased to 16. During my evaluation, patient was noted to be in sinus rhythm, no arrhythmia noted, however the patient is on lidocaine drip. CBC showed leukocytosis with WBC of 16.1 hemoglobin is 11.2. Basic metabolic profile is normal, bicarb is 36. Blood sugar is 130. Magnesium is 2.5. Reevaluated today on 10/07/21, patient remains in the ICU, intubated and mechanically ventilated. Remains on assist control rate of 30 tidal volume 325 FiO2 90% overnight and I cut it down to 80% this morning, she is on a PEEP of 16. ABG showed a pO2 of 61 pCO2 57 pH of 7.41 and this was on 90%. Electrolytes are normal renal profile is normal her bicarb is 34. WBC count is 15.9 hemoglobin 11.2. Chest x-ray continues to show bilateral infiltrates consistent with COVID-19 pneumonia, not much of a change noted on the chest x- ray. Patient remains on multiple drips including fentanyl 1 mcg/kg/h, propofol 50 mcg/kg/m, Nimbex 2 mcg/kg/m, lidocaine 1 mg/m. No further issues related to her arrhythmias. Remains on lidocaine patient is supposed to have tracheostomy and PEG tube placement today, and that is yet to be decided upon by Dr. balbuena on the case. Overall not much of a change overnight, patient continues to have significant subcutaneous emphysema. Remains on enteral feeding which is presently on hold because of plans for tracheostomy. Patient has been up to goal. Sedate I updated her family including her and her daughter about her overall status. And they are very well aware that she is critically ill, and prognosis is guarded, but definitely not futile and not hopeless yet. Reevaluated today on 10/08/21, patient remains in the ICU, intubated, mechanically ventilated, does not seem to be doing much better today. Patient is basically about the same, remains on assist control rate of 30 tidal volume 325 FiO2 is up to 85% PEEP remains at 16. Try to increase the PEEP, however there was a significant increase in her peak airway pressure and plateau pressure. Presently her peak airway pressure is 38, and plateau pressure is 34. Patient remains on propofol at 40 mcg/kg/m Nimbex of 0.5 but granted kilo per minute fentanyl 1 mcg/kg/h clevidipine 5 mg per hour. Chest x-ray is basically about the same, continues to show bilateral infiltrates and most likely underlying ARDS. Her labs showed WBC count of 13.0 hemoglobin 10.4. Electrolytes are normal renal profile is normal. ABG showed a pO2 of 61 pCO2 57 pH of 7.47. This was on 75%, and increase her FiO2 to 80% O2 saturation seems to be marginal on the monitor. Patient is off lidocaine drip today. Objective - Vital Signs Vital signs: Vital Signs Temp 97.9 F 10/08/21 08:00 Pulse 64 10/08/21 11:00 Resp 31 H 10/08/21 11:00 BP 148/67 10/08/21 11:00 Pulse Ox 91 L 10/08/21 11:00 Intake & Output 10/07/21 10/08/21 10/08/21 18:59 06:59 18:59 Intake Total 1159.345 858.953 264.801 Output Total 1476 436 1713 Balance -290.655 28.953 -1245.199 Weight 96.8 kg 96.8 kg Intake: IV 110 10 .9 110 10 Intake, IV Titration 1089.345 538.953 224.801 Amount Cisatracurium 200 mg In 123.324 154.757 Sodium Chloride 0.9% 180 ml @ 1 MCG/KG/MIN 5.16 mls/hr IV .Q24H [facility] Rx#: [id number] Clevidipine Butyrate 25 49.867 85.133 0 mg In Empty Bag 1 bag @ 1 MG/HR 2 mls/hr IV .Q24H [facility] Rx#:[id number] Fluconazole in NaCl,Iso- 50 Osm 100 mg In Saline 1 50ml.bag @ 50 mls/hr IVPB DAILY@1200 [facility] Rx#: [id number] Lidocaine-D5w Pmx 2G/ 108.125 70.125 250Ml 2,000 mg In Dextrose/Water 1 250ml. bag @ 1 MG/MIN 7.5 mls/hr IV .Q24H [facility] Rx#: [id number] Norepinephrine 32 mg In 0.948 Sodium Chloride 0.9% 218 ml @ 0.05 MCG/KG/MIN 2. 257 mls/hr IV .Q24H [facility] Rx#:[id number] Norepinephrine 4 mg In 18.44 Sodium Chloride 0.9% 250 ml @ 0.05 MCG/KG/MIN 18. 44 mls/hr IV .[id number] [facility] Rx#:[id number] Potassium Chloride 20 meq 100 In Water For Injection 1 100ml.bag @ 50 mls/hr IVPB ONCE ONE Rx#: [id number] Sodium Chloride 0.9% 1, 50 10 50 000 ml @ 20 mls/hr IV . Q24H [facility] Rx#:[id number] fentaNYL (PF) 2,500 mcg 236.133 In Sodium Chloride 0.9% 200 ml @ 0.5 MCG/KG/HR 4. 6 mls/hr IV .Q24H [facility] Rx# :[id number] propofoL 1,000 mg In 371.896 288.115 86.236 Empty Bag 1 bag @ Titrate IV .Q0M [facility] Rx#: [id number] Oral 60 Tube Feeding 10 120 30 Other 90 Output: Urine 5882 666 2557 Other: Voiding Method Indwelling Catheter Indwelling Catheter Indwelling Catheter ABP, PAP, CO, CI - Last Documented Arterial Blood Pressure 163/57 - Exam Physical Exam: Revealed a 61-year-old female in no distress. Intubated, sedated and paralyzed. Head: Atraumatic, normocephalic, endotracheal tube and orogastric tube is intact. Subcutaneous emphysema is about the same. HEENT:[Neck is supple.] [No neck masses.] [No thyromegaly.] [No JVD.] Subcutaneous emphysema is noted. But significantly less. Chest: [Symmetrical chest expansion crackles and rhonchi at the bases. Cardiac Exam: [Distant S1 and S2, no S3 gallop. No murmur. Abdomen: [Soft, nontender, no megaly, no rebound, no guarding, normal bowel sounds.] Extremities: [No clubbing, trace of bipedal edema, no cyanosis.] Good pulses bilaterally. Neurological Exam: Cannot assess, patient is sedated and paralyzed. Psychiatric: Cannot assess patient is sedated and paralyzed. Skin: No rashes. - Labs CBC & Chem 7: 10/08/21 04:52 10/08/21 04:52 Labs: Abnormal Lab Results - Last 24 Hours (Table) 10/07/21 10/08/21 10/08/21 Range/Units 18:00 00:09 04:50 WBC (3.8-10.6) k/uL Hgb (11.4-16.0) gm/dL MCHC (31.0-37.0) g/dL RDW (11.5-15.5) % Neutrophils # (1.3-7.7) k/uL ABG pCO2 57 H (35-45) mmHg ABG pO2 61 L (83-108) mmHg ABG HCO3 38 H (21-25) mmol/L ABG Total CO2 40 H (19-24) mmol/L ABG O2 Saturation 91.4 L (94-97) % Carbon Dioxide (22-30) mmol/L BUN (7-17) mg/dL Glucose (74-99) mg/dL POC Glucose (mg/dL) 134 H 149 H (75-99) mg/dL 10/08/21 10/08/21 10/08/21 Range/Units 04:52 04:52 11:36 WBC 13.0 H (3.8-10.6) k/uL Hgb 10.4 L (11.4-16.0) gm/dL MCHC 29.8 L (31.0-37.0) g/dL RDW 17.2 H (11.5-15.5) % Neutrophils # 10.6 H (1.3-7.7) k/uL ABG pCO2 (35-45) mmHg ABG pO2 (83-108) mmHg ABG HCO3 (21-25) mmol/L ABG Total CO2 (19-24) mmol/L ABG O2 Saturation (94-97) % Carbon Dioxide 36 H (22-30) mmol/L BUN 29 H (7-17) mg/dL Glucose 111 H (74-99) mg/dL POC Glucose (mg/dL) 148 H (75-99) mg/dL Assessment and Plan Assessment: Impression: Acute hypoxic respiratory failure secondary to COVID-19 pneumonia and complicated with ARDS. Patient was intubated on 09/25/2021. Patient was supposed to have tracheostomy yesterday, however this was delayed by surgery until next week, hence the patient was placed back on Eliquis. Acute deep vein thrombosis, on Eliquis. Acute COVID-19 pneumonia Subcutaneous emphysema, this is a complication of COVID-19 infection/pneumonia Prior history of DVT History of fibromyalgia Degenerative joint disease Mildly elevated liver enzymes secondary to cardona virus infection. Nonsustained ventricular tachycardia, treated with lidocaine, presently she is off lidocaine drip. Recommendation: Continue ventilatory support. Agree with the leg tracheostomy until next week. Considering the patient had poor tolerance to prone positions, no further trials will be given. Patient also had poor tolerance to increasing PEEP. Hence people remain at 16 for now. Continue ventilatory support. Titrate oxygen accordingly and maintain O2 saturation above 93%. Continue nutritional support/enteral feeding Continue to monitor closely the subcutaneous emphysema Continue GI and DVT prophylaxis, patient is on Protonix , resume Eliquis Continue cefepime, empirically. Continue COVID-19 cocktail. Continue to monitor inflammatory markers and address accordingly Continue Decadron. Prognosis remains relatively guarded Patient is critically ill. Critical care time is over 30 minutes. Time with Patient: Greater than 30
--- NOTE | 2021-10-08 15:20 | P.PN ---
Subjective Progress Note Date: 10/08/21 This is a 61-year-old female who was recently admitted with acute COVID-19 pneumonia with acute COVID-19 bilateral interstitial pneumonia and also with transaminitis and being closely monitored. Patient remains in the ICU and currently intubated and sedated with an FiO2 of 70% and PEEP is 18. 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 Patient did have a venous Doppler study done recently which showed left leg DVT and patient is maintained on Eliquis will continue. Patient also continues on empiric antibiotics and awaiting for sputum culture finalized. Patient was started on IV cefepime and will continue. Patient is also continued on oral dexamethasone along with vitamin and zinc supplements and will continue. Patient with some mild volume overload and given a dose of IV Lasix push today. 09/29/2021 Patient is seen and evaluated this morning continues to be closely monitored in the ICU and continues to be on mechanical ventilation and sedated. FiO2 was increased at 80% with a PEEP of 18 and oxygen saturations between 87-91%. Patient developing subcutaneous emphysema in the neck and chest wall area and chest x-ray today shows bilateral multifocal and confluent opacification is redemonstrated consistent with COVID-19 infection with a new small left apical pneumothorax estimated under 5% with new pneumomediastinum and recurrent overlying subcutaneous emphysema noted. Patient is white blood count mildly elevated at 16.1 and is continued on oral dexamethasone along with oral eliquis for anticoagulation. Patient continues to be on IV cefepime and blood and sputum cultures are negative thus far. 09/30/2021 Patient is seen today continues to be closely monitored in the ICU with multiple medical consultations following. Patient continues to be mechanically intubated and sedated with continued subcutaneous emphysema noted. Chest xray shows a trace left apical pneumothorax that is minimally smaller 7mm versus 1cm previously, extensive bilateral subcutaneous emphysema persists and diffuse interstitial changes and bilateral patchy opacities persist with slight improvement in aeration in the lower lungs. Per nursing staff corbin was clogged with copious amounts of white discharge and will add diflucan and corbin catheter has been changed and draining adequately. Patient continues on IV cefepime. Patient tolerating tube feeds and will continue. 10/01/2021 Patient is seen and evaluated in follow up this morning and continues to be closely monitored. Multiple medical consultations following and patient c ontinues to be on mechanical vent and sedated. Patient continues on IV Cefepime and diflucan. Patient chest xray today shows stable extensive subcutaneous emphysema, no pneumothorax, and patchy bilateral lung infiltrates remain present. INflammatory markers trending down. 10/04/2021 Patient is seen in follow-up continues to be closely monitored in the ICU. Patient remains on mechanical vent with an FI02 of 65% and peep is 18. Weaning trials being attempted with pulmonary webbing weaver following closely. Patient continues with extensive subq emphysema noted on exam. 10/05/2021 Patient Is seen and evaluated this morning with continued attempts at weaning and continues on mechanical vent and intubated with pulmonary webbing weaver following closely. Patient remains on Eliquis which will be held as surgery Dr. Nelson was consulted for possible PEG and trach tube placement for unsuccessful attempts at weaning from ventilation and prolonged hospitalization on mechanical vent. Chest x-ray today shows recurrent tiny left apical pneumothorax estimated under 5% with worsening overlying subcutaneous emphysema and again pneumomediastinum redemonstrated with multifocal confluent opacification's redemonstrated consistent with COVID-19 infection and/or arts are redemonstrated with no significant change from one day previously. Patient continues on FiO2 of 65% and PEEP was weaned down to 14 today. IV cefepime discontinued. 10/06/2021 Patient is seen in follow-up this morning per nursing staff patient had multiple runs of ectopy an irregular heart rate and rhythms with PVCs and cardiology consulted. Patient was placed on lidocaine drip and was originally on eliquis is currently on hold for possible PEG and trach placement with general surgery following. Patient had difficulty maintaining oxygen saturations and FiO2 was increased to 100% and PEEP continues at 14. Multiple medical consultations following and patient continues on oral steroids along with vitamin and zinc supplements along with fluconazole. Patient being started on IV Lasix daily and recommend close monitoring of electrolytes and kidney functions. 10/07/2021 Patient is seen in follow-up this morning continues to be monitored closely in the ICU with multiple medical consultations following. Patient is currently on mechanical vent with an FiO2 of 80% and PEEP is 16. General surgery also following for possible PEG and trach placement and will need to discuss with surgery about when this will occur. Patient remains on fluconazole. She also continues on vitamin and zinc supplements along with oral dexamethasone, clevidipine, Nimbex, IV Lasix, fentanyl and propofol and is off norepinephrine. Chest x-ray shows stable bilateral lung infiltrates. 10/08/2021 Patient is seen this morning continues to be on mechanical vent with an FiO2 of 85% and PEEP of 16. Patient continues with extensive subcutaneous emphysema and plans are for possible PEG and trach placement although on hold until possibly next week once more stable. Patient continues on Cleviprex along with fentanyl and propofol and is receiving IV Lasix daily. Patient also continues on lidocaine drip which is currently on hold and cardiology is following closely. Anticoagulant was resumed for now again until more stable to undergo PEG and trach placement. Chest x-ray today shows persistent bilateral multifocal and confluent increased opacification is with persistent overlying subcutaneous emphysema noted in pneumomediastinum is again redemonstrated. Review of systems: Unable to obtain as patient is mechanically intubated and sedated Labs: WBC is 13.0, hemoglobin is 10.4, platelets are 255, sodium is 138, potassium 4.2, BUN 29, creatinine 0.84, calcium is 8.4 Active Medications Apixaban (Apixaban 5 Mg Tab) 5 mg PO BID [facility]; Protocol Last Admin: 10/08/21 08:26 Dose: 5 mg Documented by: Artificial Tears (Artificial Tears-Hypromellose Drops 15 Ml Btl) 2 drops BOTH EYES QID [facility] Last Admin: 10/08/21 12:24 Dose: 2 drops Documented by: Ascorbic Acid (Ascorbic Acid 500 Mg Tab) 500 mg PO BID [facility] Last Admin: 10/08/21 08:26 Dose: 500 mg Documented by: Chlorhexidine Gluconate (Chlorhexidine Gluconate 15 Ml Cup) 15 ml MUCOUS MEM BID [facility] Last Admin: 10/08/21 08:26 Dose: 15 ml Documented by: Dexamethasone (Dexamethasone 2 Mg Tab) 6 mg PO DAILY [facility] Last Admin: 10/08/21 08:26 Dose: 6 mg Documented by: Docusate Sodium (Docusate Oral Soln 100 Mg/10 Ml Cup) 100 mg PO DAILY PRN PRN Reason: Constipation Last Admin: 10/05/21 16:57 Dose: 100 mg Documented by: Ergocalciferol (Ergocalciferol 1,250 Mcg (50,000 Iu) Capsule) 1,250 mcg PO [facility] Last Admin: 10/03/21 08:38 Dose: Not Given Documented by: Furosemide (Furosemide 10 Mg/Ml 4 Ml Vial) 40 mg IV DAILY [facility] Last Admin: 10/08/21 08:26 Dose: 40 mg Documented by: Propofol 1,000 mg/ IV Solution 100 mls @ 0 mls/hr IV .Q0M [facility]; Protocol Last Admin: 10/08/21 10:26 Dose: 40 mcg/kg/min, 23.232 mls/hr Documented by: Cisatracurium Besylate 200 mg/ (Sodium Chloride) 200 mls @ 5.16 mls/hr IV .Q24H [facility]; Protocol Last Titration: 10/08/21 12:24 Dose: 3 mcg/kg/min, 15.48 mls/hr Documented by: Sodium Chloride (Saline 0.9%) 1,000 mls @ 20 mls/hr IV .Q24H [facility] Last Admin: 10/08/21 04:05 Dose: 20 mls/hr Documented by: Fentanyl Citrate 2,500 mcg/ (Sodium Chloride) 250 mls @ 4.6 mls/hr IV .Q24H [facility] ; Protocol Last Admin: 10/07/21 11:57 Dose: 1 mcg/kg/hr, 9.2 mls/hr Documented by: Fluconazole/Sodium Chloride (100 mg/ IV Solution) 50 mls @ 50 mls/hr IVPB DAILY@1200 [facility] Last Admin: 10/08/21 11:59 Dose: 50 mls/hr Documented by: Clevidipine 25 mg/ IV Solution 50 mls @ 2 mls/hr IV .Q24H [facility]; Protocol Last Titration: 10/08/21 10:27 Dose: 4 mg/hr, 8 mls/hr Documented by: Lidocaine HCl/Dextrose 2,000 (mg/ IV Solution) 250 mls @ 7.5 mls/hr IV .Q24H [facility] Last Infusion: 10/08/21 09:45 Dose: 0 mg/min, 0 mls/hr Documented by: Norepinephrine Bitartrate 4 mg (/ Sodium Chloride) 254 mls @ 18.44 mls/hr IV .[id number] [facility]; Protocol Last Titration: 10/08/21 09:45 Dose: 0 mcg/kg/min, 0 mls/hr Documented by: Insulin Aspart (Insulin Aspart (Novolog) 100 Unit/Ml Vial) 0 unit SQ Q6HR [facility]; Protocol Last Admin: 10/08/21 11:59 Dose: 1 unit Documented by: Miscellaneous Information (Pneumonia Protocol Utilized 1 Each [facility]) 1 each PO ONCE PRN PRN Reason: Per Protocol Miscellaneous Information (Potassium Replacement Protocol 1 Each [facility]) 1 each MISCELLANE DAILY PRN; Protocol PRN Reason: Per Protocol Naloxone HCl (Naloxone 0.4 Mg/Ml 1 Ml Vial) 0.2 mg IV Q2M PRN PRN Reason: Opioid Reversal Pantoprazole Sodium (Pantoprazole 40 Mg/10 Ml Vial) 40 mg IV DAILY [facility] Last Admin: 10/08/21 08:26 Dose: 40 mg Documented by: Zinc Sulfate (Zinc Sulfate 220 Mg Cap) 220 mg PO DAILY [facility] Last Admin: 10/08/21 08:26 Dose: 220 mg Documented by: Physical Exam: Gen: This is a 61-year-old female currently sedated and intubated. mechanical ventilation Fio2 titrated down to 85% with a PEEP of 16 HEENT: Head is atraumatic, normocephalic. Pupils equal, round. Sclerae is anicteric. NECK: Supple. No JVD. No lymphadenopathy. No thyromegaly. subcutaneous emphysema noted in the neck and chest wall area bilaterally. LUNGS: Diminished breath sounds bilaterally with coarse rhonchi and crackles noted. No intercostal retractions. HEART: S1, S2 are muffled ABDOMEN: Soft. Bowel sounds are present. No masses. No tenderness. EXTREMITIES: No pedal edema. No calf tenderness. Bilateral upper extremity edema noted NEUROLOGICAL: Patient is currently intubated and sedated Assessment: Acute COVID-19 infection with acute COVID-19 bilateral interstitial pneumonia with hypoxic hypercarbic respiratory failure on mechanical vent Subcutaneous emphysema of the neck and chest with a left apical pneumothorax less than 5% Non-sustained ventricular tachycardia Acute left leg deep vein thrombosis Acute respiratory acidosis Primary hypercoagulable state and factor V week deficiency Possible candidiasis secondary to prolonged indwelling Corbin catheter Mild transaminitis, possibly secondary to COVID-19 History of DVT History of degenerative joint disease History of fibromyalgia Acute respiratory acidosis Increased white blood count anemia, of undetermined etiology Elevated inflammatory markers of COVID-19 Obesity with a body mass index of 38.1 Full code Plan: Recommend to continue with current medications and follow along closely with multiple medical consultations. Prognosis remains guarded with multiple complex medical issues noted. Patient continues on mechanical ventilation and FiO2 titrated down to 85% with PEEP 16. No room for weaning attempts today. Cardiology following and anticoagulant being resumed until patient is more stable for PEG and trach placement. Patient has had prolonged hospitalization and prolonged mechanical ventilation and general surgery Dr. Nelson following for PEG and trach placement. Not likely to occur before sometime next week. Per nursing staff patient has been off and on of Cleviprex and Levophed as blood pressure and heart rate are extremely variable. Recommend to continue with current medications. Chest x-ray reviewed as mentioned above. Recommend repeat labs and continued close monitoring. Again due to multiple complex medical issues overall prognosis is quite guarded. Objective - Vital Signs Vital signs: Vital Signs Temp 97.8 F 10/08/21 04:00 Pulse 49 L 10/08/21 07:00 Resp 30 H 10/08/21 07:00 BP 90/46 10/08/21 07:00 Pulse Ox 98 10/08/21 07:00 Intake & Output 10/07/21 10/08/21 10/08/21 18:59 06:59 18:59 Intake Total 1159.345 858.953 41.186 Output Total 1450 830 60 Balance -290.655 28.953 -18.814 Weight 96.8 kg Intake: IV 110 10 .9 110 10 Intake, IV Titration 1089.345 538.953 21.186 Amount Cisatracurium 200 mg In 123.324 154.757 Sodium Chloride 0.9% 180 ml @ 1 MCG/KG/MIN 5.16 mls/hr IV .Q24H [facility] Rx#: [id number] Clevidipine Butyrate 25 49.867 85.133 mg In Empty Bag 1 bag @ 1 MG/HR 2 mls/hr IV .Q24H [facility] Rx#:[id number] Fluconazole in NaCl,Iso- 50 Osm 100 mg In Saline 1 50ml.bag @ 50 mls/hr IVPB DAILY@1200 [facility] Rx#: [id number] Lidocaine-D5w Pmx 2G/ 108.125 250Ml 2,000 mg In Dextrose/Water 1 250ml. bag @ 1 MG/MIN 7.5 mls/hr IV .Q24H [facility] Rx#: [id number] Norepinephrine 32 mg In 0.948 Sodium Chloride 0.9% 218 ml @ 0.05 MCG/KG/MIN 2. 257 mls/hr IV .Q24H [facility] Rx#:[id number] Potassium Chloride 20 meq 100 In Water For Injection 1 100ml.bag @ 50 mls/hr IVPB ONCE ONE Rx#: [id number] Sodium Chloride 0.9% 1, 50 10 000 ml @ 20 mls/hr IV . Q24H [facility] Rx#:[id number] fentaNYL (PF) 2,500 mcg 236.133 In Sodium Chloride 0.9% 200 ml @ 0.5 MCG/KG/HR 4. 6 mls/hr IV .Q24H [facility] Rx# :[id number] propofoL 1,000 mg In 371.896 288.115 21.186 Empty Bag 1 bag @ Titrate IV .Q0M [facility] Rx#: [id number] Oral 60 Tube Feeding 10 120 10 Other 90 Output: Urine 1450 830 60 Other: Voiding Method Indwelling Catheter Indwelling Catheter ABP, PAP, CO, CI - Last Documented Arterial Blood Pressure 103/53 - Labs CBC & Chem 7: 10/08/21 04:52 10/08/21 04:52 Labs: Abnormal Lab Results - Last 24 Hours (Table) 10/07/21 10/07/21 10/08/21 Range/Units 11:50 18:00 00:09 WBC (3.8-10.6) k/uL Hgb (11.4-16.0) gm/dL MCHC (31.0-37.0) g/dL RDW (11.5-15.5) % Neutrophils # (1.3-7.7) k/uL ABG pCO2 (35-45) mmHg ABG pO2 (83-108) mmHg ABG HCO3 (21-25) mmol/L ABG Total CO2 (19-24) mmol/L ABG O2 Saturation (94-97) % Carbon Dioxide (22-30) mmol/L BUN (7-17) mg/dL Glucose (74-99) mg/dL POC Glucose (mg/dL) 196 H 134 H 149 H (75-99) mg/dL 10/08/21 10/08/21 10/08/21 Range/Units 04:50 04:52 04:52 WBC 13.0 H (3.8-10.6) k/uL Hgb 10.4 L (11.4-16.0) gm/dL MCHC 29.8 L (31.0-37.0) g/dL RDW 17.2 H (11.5-15.5) % Neutrophils # 10.6 H (1.3-7.7) k/uL ABG pCO2 57 H (35-45) mmHg ABG pO2 61 L (83-108) mmHg ABG HCO3 38 H (21-25) mmol/L ABG Total CO2 40 H (19-24) mmol/L ABG O2 Saturation 91.4 L (94-97) % Carbon Dioxide 36 H (22-30) mmol/L BUN 29 H (7-17) mg/dL Glucose 111 H (74-99) mg/dL POC Glucose (mg/dL) (75-99) mg/dL
[2021-10-08] MEDS: fentaNYL (PF) 2,500 MCG in SODIUM CHLORIDE 0.9% 200 ML IV SCH (16:48)
--- NOTE | 2021-10-08 17:05 | P.PN ---
Subjective Progress Note Date: 10/08/21 CHIEF COMPLAINT: Respiratory failure HISTORY OF PRESENT ILLNESS: Patient remains on mechanical ventilation. She is on PEEP of 16 and FiO2 of 85%. She remains on propofol, Nimbex and fentanyl. Patient is off a lidocaine drip today. Afebrile. WBC 13 hemoglobin 10.4 PHYSICAL EXAM: VITAL SIGNS: Reviewed. GENERAL: Well-developed in no acute distress. HEENT: Moist buccal mucosa. Head is atraumatic, normocephalic. ABDOMEN: Soft. Nondistended. Nontender. NEUROLOGIC: Intubated and sedated ASSESSMENT: 1. Acute hypoxic respiratory failure secondary to COVID-19 pneumonia requiring mechanical ventilation. 2. Severe protein calorie nutrition PLAN: -Tracheostomy and PEG tube placement are postponed until next week -Further recommendations forthcoming per surgeon -Continue to reassess on a daily basis -Continue ICU management and supportive care Physician Packaging Line Operator note has been reviewed by physician. Signing provider agrees with the documented findings, assessment, and plan of care. Objective - Vital Signs Vital signs: Vital Signs Temp 97.9 F 10/08/21 08:00 Pulse 81 10/08/21 15:00 Resp 30 H 10/08/21 15:00 BP 135/59 10/08/21 15:00 Pulse Ox 92 L 10/08/21 15:00 Intake & Output 10/07/21 10/08/21 10/08/21 18:59 06:59 18:59 Intake Total 1159.345 858.953 822.891 Output Total 7336 851 1485 Balance -290.655 28.953 -1287.109 Weight 96.8 kg 96.8 kg Intake: IV 110 10 .9 110 10 Intake, IV Titration 1089.345 538.953 752.891 Amount Cisatracurium 200 mg In 123.324 154.757 70.09 Sodium Chloride 0.9% 180 ml @ 1 MCG/KG/MIN 5.16 mls/hr IV .Q24H [facility] Rx#: [id number] Clevidipine Butyrate 25 49.867 85.133 48 mg In Empty Bag 1 bag @ 1 MG/HR 2 mls/hr IV .Q24H [facility] Rx#:[id number] Fluconazole in NaCl,Iso- 50 Osm 100 mg In Saline 1 50ml.bag @ 50 mls/hr IVPB DAILY@1200 [facility] Rx#: [id number] Lidocaine-D5w Pmx 2G/ 108.125 70.125 250Ml 2,000 mg In Dextrose/Water 1 250ml. bag @ 1 MG/MIN 7.5 mls/hr IV .Q24H [facility] Rx#: [id number] Norepinephrine 32 mg In 0.948 Sodium Chloride 0.9% 218 ml @ 0.05 MCG/KG/MIN 2. 257 mls/hr IV .Q24H [facility] Rx#:[id number] Norepinephrine 4 mg In 18.44 Sodium Chloride 0.9% 250 ml @ 0.05 MCG/KG/MIN 18. 44 mls/hr IV .[id number] [facility] Rx#:[id number] Potassium Chloride 20 meq 100 In Water For Injection 1 100ml.bag @ 50 mls/hr IVPB ONCE ONE Rx#: [id number] Sodium Chloride 0.9% 1, 50 10 110 000 ml @ 20 mls/hr IV . Q24H [facility] Rx#:[id number] fentaNYL (PF) 2,500 mcg 236.133 250 In Sodium Chloride 0.9% 200 ml @ 0.5 MCG/KG/HR 4. 6 mls/hr IV .Q24H [facility] Rx# :[id number] propofoL 1,000 mg In 371.896 288.115 186.236 Empty Bag 1 bag @ Titrate IV .Q0M [facility] Rx#: [id number] Oral 60 Tube Feeding 10 120 60 Other 90 Output: Urine 1472 216 9265 Other: Voiding Method Indwelling Catheter Indwelling Catheter Indwelling Catheter ABP, PAP, CO, CI - Last Documented Arterial Blood Pressure 135/58 - Labs CBC & Chem 7: 10/08/21 04:52 10/08/21 04:52 Labs: Abnormal Lab Results - Last 24 Hours (Table) 10/07/21 10/08/21 10/08/21 Range/Units 18:00 00:09 04:50 WBC (3.8-10.6) k/uL Hgb (11.4-16.0) gm/dL MCHC (31.0-37.0) g/dL RDW (11.5-15.5) % Neutrophils # (1.3-7.7) k/uL ABG pCO2 57 H (35-45) mmHg ABG pO2 61 L (83-108) mmHg ABG HCO3 38 H (21-25) mmol/L ABG Total CO2 40 H (19-24) mmol/L ABG O2 Saturation 91.4 L (94-97) % Carbon Dioxide (22-30) mmol/L BUN (7-17) mg/dL Glucose (74-99) mg/dL POC Glucose (mg/dL) 134 H 149 H (75-99) mg/dL 10/08/21 10/08/21 10/08/21 Range/Units 04:52 04:52 11:36 WBC 13.0 H (3.8-10.6) k/uL Hgb 10.4 L (11.4-16.0) gm/dL MCHC 29.8 L (31.0-37.0) g/dL RDW 17.2 H (11.5-15.5) % Neutrophils # 10.6 H (1.3-7.7) k/uL ABG pCO2 (35-45) mmHg ABG pO2 (83-108) mmHg ABG HCO3 (21-25) mmol/L ABG Total CO2 (19-24) mmol/L ABG O2 Saturation (94-97) % Carbon Dioxide 36 H (22-30) mmol/L BUN 29 H (7-17) mg/dL Glucose 111 H (74-99) mg/dL POC Glucose (mg/dL) 148 H (75-99) mg/dL
[2021-10-08 18:02] LABS: Glucose,Whole Blood 165 mg/dL (75-99)
[2021-10-08 23:47] LABS: Glucose,Whole Blood 105 mg/dL (75-99)
[2021-10-09] MEDS: CLEVIDIPINE BUTYRATE 25 MG in EMPTY BAG 1 BAG IV SCH ×7 (01:50→23:43)
[2021-10-09] MEDS: SODIUM CHLORIDE 0.9% 1,000 ML IV SCH ×2 (02:15→23:43)
[2021-10-09 04:57] LABS: ABG Base Excess 11.8 mmol/L; ABG HCO3 36 mmol/L (21-25); ABG Oxygen Saturation 91.8 % (94-97); ABG PCO2 56 mmHg (35-45); ABG PH 7.42 (7.35-7.45); ABG PO2 62 mmHg (83-108); ABG TCO2 38 mmol/L (19-24); Allen Test Performed? Yes
[2021-10-09 05:45] LABS: Anisocytosis Slight; Basophils # (A) 0.1 k/uL (0-0.2); Basophils % (A) 0 %; Eosinophils # (A) 0.2 k/uL (0-0.7); Eosinophils % (A) 1 %; HCT 39.1 % (34.0-46.0); HGB 11.6 gm/dL (11.4-16.0); Hypochromasia Marked; Lymphocytes # (A) 1.6 k/uL (1.0-4.8); Lymphocytes % (A) 9 %; MCH 26.9 pg (25.0-35.0); MCHC 29.6 g/dL (31.0-37.0); MCV 90.7 fL (80.0-100.0); Mean Platelet Volume 7.9; Monocytes # (A) 1.1 k/uL (0-1.0); Monocytes % (A) 6 %; Neutrophils % (A) 82 %; Platelet Count 298 k/uL (150-450); RBC 4.32 m/uL (3.80-5.40); RDW 17.4 % (11.5-15.5); WBC 17.1 k/uL (3.8-10.6)
[2021-10-09] MEDS: INSULIN ASPART (NovoLOG) 100 UNIT/ML VIAL SQ SCH ×4 (06:04→23:07)
[2021-10-09 06:05] LABS: Glucose,Whole Blood 118 mg/dL (75-99)
[2021-10-09 06:39] LABS: Albumin 2.8 g/dL (3.5-5.0); Calcium 8.7 mg/dL (8.4-10.2); Potassium 3.8 mmol/L (3.5-5.1); Total Bilirubin 0.8 mg/dL (0.2-1.3); Total Protein 5.9 g/dL (6.3-8.2)
[2021-10-09] MEDS ORDERED: POTASSIUM BICARBONATE/CIT AC 20 MEQ TABLET.EFF NG-TUBE SCH (07:00)
[2021-10-09] MEDS: CISATRACURIUM 200 MG in SODIUM CHLORIDE 0.9% 180 ML IV SCH ×2 (07:42→16:41)
[2021-10-09] MEDS: PANTOPRAZOLE 40 MG/10 ML VIAL IV SCH (08:21)
[2021-10-09] MEDS: ARTIFICIAL TEARS-HYPROMELLOSE DROPS 15 ML BTL BOTH EYES SCH ×4 (08:21→23:07)
[2021-10-09] MEDS: CHLORHEXIDINE GLUCONATE 15 ML CUP MUCOUS MEM SCH ×2 (08:22→22:54)
[2021-10-09] MEDS: ASCORBIC ACID 500 MG TAB PO SCH ×2 (08:22→22:54)
[2021-10-09] MEDS: APIXABAN 5 MG TAB PO SCH ×2 (08:22→22:54)
[2021-10-09] MEDS: ZINC SULFATE 220 MG CAP PO SCH (08:22)
[2021-10-09] MEDS: dexAMETHasone 2 MG TAB PO SCH (08:22)
[2021-10-09] MEDS: FUROSEMIDE 10 MG/ML 4 ML VIAL IV SCH (08:22)
--- NOTE | 2021-10-09 11:16 | XR ---
EXAMINATION TYPE: XR chest 1V DATE OF EXAM: 10/09/2021 11:10 AM COMPARISON:Chest radiograph from one day prior. TECHNIQUE: Portable AP radiograph of the chest.. CLINICAL INDICATION:Female, 61 years old with history of covid; FINDINGS: Lungs/Pleura: Similar multifocal airspace opacities. No evidence of pneumothorax or pleural effusion. Pulmonary vascularity: Unremarkable. Heart/mediastinum: Cardiomediastinal silhouette is partially obscured due to overlying and adjacent o pacities. Musculoskeletal: No acute osseous pathology. Other findings: Subcutaneous emphysema scattered throughout the visualized thorax. Lines/Tubes: Endotracheal tube with distal tip at the level of the aortic arch Nasogastric tube with its distal tip and side-port projecting under the diaphragm. Left central venous catheter with distal tip at the cavoatrial junction. IMPRESSION: 1. Similar multifocal airspace opacities. 2. Stable support lines and tubes. 3. Similar Subcutaneous emphysema scattered throughout the visualized thorax.
--- NOTE | 2021-10-09 11:34 | P.PN ---
Subjective Progress Note Date: 10/09/21 This is a 61-year-old female who was recently admitted with acute COVID-19 pneumonia with acute COVID-19 bilateral interstitial pneumonia and also with transaminitis and being closely monitored. Patient remains in the ICU and currently intubated and sedated with an FiO2 of 70% and PEEP is 18. 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 Patient did have a venous Doppler study done recently which showed left leg DVT and patient is maintained on Eliquis will continue. Patient also continues on empiric antibiotics and awaiting for sputum culture finalized. Patient was started on IV cefepime and will continue. Patient is also continued on oral dexamethasone along with vitamin and zinc supplements and will continue. Patient with some mild volume overload and given a dose of IV Lasix push today. 09/29/2021 Patient is seen and evaluated this morning continues to be closely monitored in the ICU and continues to be on mechanical ventilation and sedated. FiO2 was increased at 80% with a PEEP of 18 and oxygen saturations between 87-91%. Patient developing subcutaneous emphysema in the neck and chest wall area and chest x-ray today shows bilateral multifocal and confluent opacification is redemonstrated consistent with COVID-19 infection with a new small left apical pneumothorax estimated under 5% with new pneumomediastinum and recurrent overlying subcutaneous emphysema noted. Patient is white blood count mildly elevated at 16.1 and is continued on oral dexamethasone along with oral eliquis for anticoagulation. Patient continues to be on IV cefepime and blood and sputum cultures are negative thus far. 09/30/2021 Patient is seen today continues to be closely monitored in the ICU with multiple medical consultations following. Patient continues to be mechanically intubated and sedated with continued subcutaneous emphysema noted. Chest xray shows a trace left apical pneumothorax that is minimally smaller 7mm versus 1cm previously, extensive bilateral subcutaneous emphysema persists and diffuse interstitial changes and bilateral patchy opacities persist with slight improvement in aeration in the lower lungs. Per nursing staff corbin was clogged with copious amounts of white discharge and will add diflucan and corbin catheter has been changed and draining adequately. Patient continues on IV cefepime. Patient tolerating tube feeds and will continue. 10/01/2021 Patient is seen and evaluated in follow up this morning and continues to be closely monitored. Multiple medical consultations following and patient cont inues to be on mechanical vent and sedated. Patient continues on IV Cefepime and diflucan. Patient chest xray today shows stable extensive subcutaneous emphysema, no pneumothorax, and patchy bilateral lung infiltrates remain present. INflammatory markers trending down. 10/04/2021 Patient is seen in follow-up continues to be closely monitored in the ICU. Patient remains on mechanical vent with an FI02 of 65% and peep is 18. Weaning trials being attempted with pulmonary marketing education teacher following closely. Patient continues with extensive subq emphysema noted on exam. 10/05/2021 Patient Is seen and evaluated this morning with continued attempts at weaning and continues on mechanical vent and intubated with pulmonary marketing education teacher following closely. Patient remains on Eliquis which will be held as surgery Dr. Nelson was consulted for possible PEG and trach tube placement for unsuccessful attempts at weaning from ventilation and prolonged hospitalization on mechanical vent. Chest x-ray today shows recurrent tiny left apical pneumothorax estimated under 5% with worsening overlying subcutaneous emphysema and again pneumomediastinum redemonstrated with multifocal confluent opacification's r edemonstrated consistent with COVID-19 infection and/or arts are redemonstrated with no significant change from one day previously. Patient continues on FiO2 of 65% and PEEP was weaned down to 14 today. IV cefepime discontinued. 10/06/2021 Patient is seen in follow-up this morning per nursing staff patient had multiple runs of ectopy an irregular heart rate and rhythms with PVCs and cardiology consulted. Patient was placed on lidocaine drip and was originally on eliquis is currently on hold for possible PEG and trach placement with general surgery following. Patient had difficulty maintaining oxygen saturations and FiO2 was increased to 100% and PEEP continues at 14. Multiple medical consultations following and patient continues on oral steroids along with vitamin and zinc supplements along with fluconazole. Patient being started on IV Lasix daily and recommend close monitoring of electrolytes and kidney functions. 10/07/2021 Patient is seen in follow-up this morning continues to be monitored closely in the ICU with multiple medical consultations following. Patient is currently on mechanical vent with an FiO2 of 80% and PEEP is 16. General surgery also following for possible PEG and trach placement and will need to discuss with surgery about when this will occur. Patient remains on fluconazole. She also continues on vitamin and zinc supplements along with oral dexamethasone, clevidipine, Nimbex, IV Lasix, fentanyl and propofol and is off norepinephrine. Chest x-ray shows stable bilateral lung infiltrates. 10/08/2021 Patient is seen this morning continues to be on mechanical vent with an FiO2 of 85% and PEEP of 16. Patient continues with extensive subcutaneous emphysema and plans are for possible PEG and trach placement although on hold until possibly n ext week once more stable. Patient continues on Cleviprex along with fentanyl and propofol and is receiving IV Lasix daily. Patient also continues on lidocaine drip which is currently on hold and cardiology is following closely. Anticoagulant was resumed for now again until more stable to undergo PEG and trach placement. Chest x-ray today shows persistent bilateral multifocal and confluent increased opacification is with persistent overlying subcutaneous emphysema noted in pneumomediastinum is again redemonstrated. Labs:WBC is 13.0, hemoglobin is 10.4, platelets are 255, sodium is 138, po tassium 4.2, BUN 29, creatinine 0.84, calcium is 8.4 Patient evaluated today in ICU mechanical ventilation with FiO2 of 80%. Chest x-ray this morning shows similar multifocal airspace opacities and stable support lines and tubes. Similar subcutaneous emphysema scattered throughout the visualized thorax. PEG and trach plan for next week once more stable. Current meds include Cleviprex, Nimbex, fentanyl, propofol. She is receiving IV fluconazole, as well as IV Lasix. Levophed and Lidocaine gtt;s are on hold. Positive bowel sounds. Current vitals afebrile, heart rate 71, blood pressure 135/60 and oxygen saturation is 93%. Respirations 30. Labs today, white count 17, hemoglobin 11.6, sodium 139, potassium 3.8, BUN 34, creatinine 0.91, CO2 33, calcium 8.7, ALT 54, albumin 2.8 with blood sugars in the 100s. Review of systems: Unable to obtain as patient is mechanically intubated and sedated Physical Exam: Gen: This is a 61-year-old female currently sedated and intubated. mechanical ventilation Fio2 titrated down to 80% HEENT: Head is atraumatic, normocephalic. Pupils equal, round. Sclerae is anicteric. NECK: Supple. No JVD. No lymphadenopathy. No thyromegaly. subcutaneous emphysema noted in the neck and chest wall area bilaterally. LUNGS: Diminished breath sounds bilaterally with coarse rhonchi and crackles noted. No intercostal retractions. HEART: S1, S2 are muffled ABDOMEN: Soft. Bowel sounds are present. No masses. No tenderness. EXTREMITIES: No pedal edema. No calf tenderness. Bilateral upper extremity edema noted NEUROLOGICAL: Patient is currently intubated and sedated Assessment: Acute COVID-19 infection with acute COVID-19 bilateral interstitial pneumonia with hypoxic hypercarbic respiratory failure on mechanical vent Subcutaneous emphysema of the neck and chest with a left apical pneumothorax less than 5% Non-sustained ventricular tachycardia Acute left leg deep vein thrombosis Acute respiratory acidosis Primary hypercoagulable state and factor V week deficiency Possible candidiasis secondary to prolonged indwelling Corbin catheter Mild transaminitis, possibly secondary to COVID-19 History of DVT History of degenerative joint disease History of fibromyalgia Acute respiratory acidosis Increased white blood count anemia, of undetermined etiology Elevated inflammatory markers of COVID-19 Obesity with a body mass index of 38.1 Full code DVT Prophylaxis: Eliquis GI Prophylaxis: Protonix Plan: Recommend to continue with current medications and follow along closely with multiple medical consultations. Prognosis remains guarded with multiple complex medical issues noted. Patient continues on mechanical ventilation and FiO2 titrated down to 80%. No room for weaning attempts today. Patient has had prolonged hospitalization and prolonged mechanical ventilation and general surgery Dr. Nelson following for PEG and trach placement. Not likely to occur before sometime next week. Per nursing staff patient has been off and on of Cleviprex and Levophed as blood pressure and heart rate are extremely variable. Recommend to continue with current medications. Chest x-ray reviewed as mentioned above. Recommend repeat labs and continued close monitoring. Again due to multiple complex medical issues overall prognosis is quite guarded. Objective - Vital Signs Vital signs: Vital Signs Temp 97.6 F 10/09/21 08:00 Pulse 71 10/09/21 09:00 Resp 30 H 10/09/21 09:00 BP 135/60 10/09/21 09:00 Pulse Ox 93 L 10/09/21 09:00 Intake & Output 10/08/21 10/09/21 10/09/21 18:59 06:59 18:59 Intake Total 912.891 956.843 432.070 Output Total 2560 820 150 Balance -1647.109 136.843 282.070 Weight 96.8 kg 102.3 kg Intake: IV 10 260 40 .9 10 260 40 Intake, IV Titration 812.891 476.843 342.070 Amount Cisatracurium 200 mg In 70.09 129.91 195.736 Sodium Chloride 0.9% 180 ml @ 1 MCG/KG/MIN 5.16 mls/hr IV .Q24H [facility] Rx#: [id number] Clevidipine Butyrate 25 48 46.933 46.334 mg In Empty Bag 1 bag @ 1 MG/HR 2 mls/hr IV .Q24H [facility] Rx#:[id number] Lidocaine-D5w Pmx 2G/ 70.125 250Ml 2,000 mg In Dextrose/Water 1 250ml. bag @ 1 MG/MIN 7.5 mls/hr IV .Q24H [facility] Rx#: [id number] Norepinephrine 4 mg In 18.44 Sodium Chloride 0.9% 250 ml @ 0.05 MCG/KG/MIN 18. 44 mls/hr IV .[id number] [facility] Rx#:[id number] Sodium Chloride 0.9% 1, 170 000 ml @ 20 mls/hr IV . Q24H [facility] Rx#:[id number] fentaNYL (PF) 2,500 mcg 250 In Sodium Chloride 0.9% 200 ml @ 0.5 MCG/KG/HR 4. 6 mls/hr IV .Q24H [facility] Rx# :[id number] propofoL 1,000 mg In 186.236 300 100 Empty Bag 1 bag @ Titrate IV .Q0M [facility] Rx#: [id number] Tube Feeding 90 130 20 Other 90 30 Output: Urine 2560 820 150 Other: Voiding Method Indwelling Catheter Indwelling Catheter Indwelling Catheter ABP, PAP, CO, CI - Last Documented Arterial Blood Pressure 150/56 - Labs CBC & Chem 7: 10/09/21 05:32 10/09/21 05:32 Labs: Abnormal Lab Results - Last 24 Hours (Table) 10/08/21 10/08/21 10/08/21 Range/Units 11:36 18:01 23:46 WBC (3.8-10.6) k/uL MCHC (31.0-37.0) g/dL RDW (11.5-15.5) % Neutrophils # (1.3-7.7) k/uL Monocytes # (0-1.0) k/uL ABG pCO2 (35-45) mmHg ABG pO2 (83-108) mmHg ABG HCO3 (21-25) mmol/L ABG Total CO2 (19-24) mmol/L ABG O2 Saturation (94-97) % Carbon Dioxide (22-30) mmol/L BUN (7-17) mg/dL Glucose (74-99) mg/dL POC Glucose (mg/dL) 148 H 165 H 105 H (75-99) mg/dL ALT (4-34) U/L Total Protein (6.3-8.2) g/dL Albumin (3.5-5.0) g/dL 10/09/21 10/09/21 10/09/21 Range/Units 04:55 05:32 05:32 WBC 17.1 H (3.8-10.6) k/uL MCHC 29.6 L (31.0-37.0) g/dL RDW 17.4 H (11.5-15.5) % Neutrophils # 14.0 H (1.3-7.7) k/uL Monocytes # 1.1 H (0-1.0) k/uL ABG pCO2 56 H (35-45) mmHg ABG pO2 62 L (83-108) mmHg ABG HCO3 36 H (21-25) mmol/L ABG Total CO2 38 H (19-24) mmol/L ABG O2 Saturation 91.8 L (94-97) % Carbon Dioxide 33 H (22-30) mmol/L BUN 34 H (7-17) mg/dL Glucose 127 H (74-99) mg/dL POC Glucose (mg/dL) (75-99) mg/dL ALT 54 H (4-34) U/L Total Protein 5.9 L (6.3-8.2) g/dL Albumin 2.8 L (3.5-5.0) g/dL 10/09/21 Range/Units 06:03 WBC (3.8-10.6) k/uL MCHC (31.0-37.0) g/dL RDW (11.5-15.5) % Neutrophils # (1.3-7.7) k/uL Monocytes # (0-1.0) k/uL ABG pCO2 (35-45) mmHg ABG pO2 (83-108) mmHg ABG HCO3 (21-25) mmol/L ABG Total CO2 (19-24) mmol/L ABG O2 Saturation (94-97) % Carbon Dioxide (22-30) mmol/L BUN (7-17) mg/dL Glucose (74-99) mg/dL POC Glucose (mg/dL) 118 H (75-99) mg/dL ALT (4-34) U/L Total Protein (6.3-8.2) g/dL Albumin (3.5-5.0) g/dL
--- NOTE | 2021-10-09 12:30 | P.PN ---
Subjective Progress Note Date: 10/09/21 Principal diagnosis: Acute hypoxic respiratory failure secondary to COVID-19 pneumonia 10/03/2021, the patient remains essentially unchanged. In fact I haven't seen much of a progress on this patient's condition over the past 1 week. She remains in ARDS post COVID 19 related pneumonia on the chest x-ray showed diffuse bilateral pulmonary infiltrates along with some subcutaneous emphysema. The patient remains sedated and paralyzed. The patient remains on propofol running at 50 mcg/kg per minute and the patient is also on fentanyl at 1 mcg/kg per minute and the patient is also on Nimbex at 1.5 Ash respiratory kilo gram per minutes. The mechanical ventilator settings essentially unchanged. I was able to drop her FiO2 down to 65%. PEEP is at 18. The Tidal volumes of 325 and the rate is at 26. Peak airway pressure is 41. Chest x-ray is unchanged. This appears emphysema has somewhat improved. angio Catheter replaced in to deflate the edema further. She remains on anticoagulation with Eliquis regarding her lower extremity DVT. Inflammatory markers have not been checked today. Most recent inflammatory markers showed marked drop in the LDH and a CRP. The patient remains on Decadron. The patient remains on Eliquis. Decadron is being used at a dose of 60 mg IV on a daily basis. The patient remains on empiric antibiotic coverage with IV cefepime and Diflucan. Hemodynamically stable. She is on no pressors. No fever. No chills. Her overall fluid balance has been -221 mL over the past 24 hours. She continues to have some edema in the upper and lower extremities bilaterally. She is tolerating her enteral feeding for nutritional support. She is on vitamin H. The rate of 24 mL an hour. She is having bowel movements with the help of Col ricky. Cardiac rhythm remains sinus. Her white cell count of 10.1 with a hemoglobin of 9.5. Platelet count is at 252. Creatinine is at 43 with a creatinine of 0.5. Cultures of been all negative. The patient has been on cefepime since 09/28/2021. Patient was reevaluated today on 10/04/2021, patient remains in the ICU, intubated and mechanically ventilated. Patient was initially intubated on 09/25/2021, her ventilator settings are assist control rate 26, volume 325 FiO2 65% and PEEP is 18. ABG showed a pO2 of 69 pCO2 of 59 pH of 7.38. Respiratory rate was increased to 30 and the flow rate was cut down to 50 L/m. Patient remains on propofol at 60 mcg/kg/m Nimbex at 2 mcg/kg/m fentanyl 1 mcg/kg/h, and on clevidipine at 4 mg per hour. Patient is receiving enteral feeding vital HP at . Patient is on Decadron 6 mg IV push daily, she is on Eliquis because she was diagnosed as having left lower extremity deep vein thrombosis. Chest x-ray continues to show bilateral interstitial infiltrates, subcu emphysema, adequate positioning of the endotracheal tube, and that catheter/triple-lumen catheter. Patient is sedated and paralyzed. WBC count is 10.8 hemoglobin is 9.2. Electrolytes are normal renal profile is normal liver enzymes are relatively unremarkable. Slightly elevated ALT 48, blood sugar is 134 today. Patient was reevaluated today on 10/05/2021, patient remains in the ICU, intubated, mechanically ventilated. Patient is on assist control rate of 30, tidal volume is 325, PEEP was cut down to 14, it was initially at 18, FiO2 is 65%. And I plan to taper the FiO2 down if tolerated. ABG earlier today showed a pO2 of 58 pCO2 of 63 pH of 7.39, however her O2 saturation on the monitor. Pulse oximetry is actually 99%. Hence I cut down the PEEP, and kept her on the same FiO2 for now. She seemed to be doing a bit better with lower PEEP. Patient remains on Nimbex at 2 mcg/kg/m fentanyl and 0.5 mcg/kg per hour. Patient is receiving vital HP at 10 mL per hour. And she is on propofol at 40 mcg/kg/m. Peak airway pressure today is 57 plateau pressure is 31. Patient is off clevidipine this morning. And considering her leukocytosis is noted on the WBC count today being 18, I will keep the patient on cefepime for now. Asked x- ray is basically showing no major change. And today I discussed her condition with her daughter over the phone, and recommended a tracheostomy and PEG tube placement, the daughter requested Dr. balbuena to do it. And we will consult Dr. balbuena for that purpose. Not much of a change otherwise over the last 24 hours, patient remains on Eliquis for left lower extremity deep vein thrombosis. A hayward seems to have worsening subcutaneous emphysema today, I went ahead and placed to 14-gauge Angiocaths, one in the left anterior chest and one in the right anterior chest in the subcutaneous tissue. Hoping that will decompress her subcutaneous emphysema. This was done under sterile conditions. Patient was reevaluated today on 10/06/2021, patient remains intubated and mechanically ventilated, remains in the ICU, she developed last night intermittent episodes of nonsustained ventricular tachycardia, patient was seen by cardiology on consultation, recommended lidocaine, and she is on lidocaine drip. Patient required increase in her FiO2, and she is now on assist control rate of 30, tidal volume 325 FiO2 is 100%, PEEP is at 14, increased PEEP to 16 this morning. FiO2 was increased apparently last night the 100%. ABG this mor minna on 100% FiO2 showed a pO2 of 67 pCO2 of 58 pH of 7.44. I did cut down the FiO2 to 90%, and I recommended that the patient could be tried on prone position hopefully today. Also recommended a dose of Lasix 40 mg IV push to be given. Chest x-ray continues to show significantdisease, ARDS, not much of a change noted on the chest x-ray, continues to have significant subcutaneous emphysema but clinically improved compared to the subcutaneous emphysema noted yesterday. Ration is now on lidocaine drip, she is also on propofol 50 Nimbex at 2.5, fentanyl at 1 mcg/kg/h, and IV fluid at 20 mL per hour in the form of 0.9 normal saline. Again her PEEP was increased to 16. During my evaluation, patient was noted to be in sinus rhythm, no arrhythmia noted, however the patient is on lidocaine drip. CBC showed leukocytosis with WBC of 16.1 hemoglobin is 11.2. Basic metabolic profile is normal, bicarb is 36. Blood sugar is 130. Magnesium is 2.5. Reevaluated today on 10/07/21, patient remains in the ICU, intubated and mechanically ventilated. Remains on assist control rate of 30 tidal volume 325 FiO2 90% overnight and I cut it down to 80% this morning, she is on a PEEP of 16. ABG showed a pO2 of 61 pCO2 57 pH of 7.41 and this was on 90%. Electrolytes are normal renal profile is normal her bicarb is 34. WBC count is 15.9 hemoglobin 11.2. Chest x-ray continues to show bilateral infiltrates consistent with COVID-19 pneumonia, not much of a change noted on the chest x- ray. Patient remains on multiple drips including fentanyl 1 mcg/kg/h, propofol 50 mcg/kg/m, Nimbex 2 mcg/kg/m, lidocaine 1 mg/m. No further issues related to her arrhythmias. Remains on lidocaine patient is supposed to have tracheostomy and PEG tube placement today, and that is yet to be decided upon by Dr. balbuena on the case. Overall not much of a change overnight, patient continues to have significant subcutaneous emphysema. Remains on enteral feeding which is presently on hold because of plans for tracheostomy. Patient has been up to goal. Sedate I updated her family including her and her daughter about her overall status. And they are very well aware that she is critically ill, and prognosis is guarded, but definitely not futile and not hopeless yet. Reevaluated today on 10/08/21, patient remains in the ICU, intubated, mechanically ventilated, does not seem to be doing much better today. Patient is basically about the same, remains on assist control rate of 30 tidal volume 325 FiO2 is up to 85% PEEP remains at 16. Try to increase the PEEP, however there was a significant increase in her peak airway pressure and plateau pressure. Presently her peak airway pressure is 38, and plateau pressure is 34. Patient remains on propofol at 40 mcg/kg/m Nimbex of 0.5 but granted kilo per minute fentanyl 1 mcg/kg/h clevidipine 5 mg per hour. Chest x-ray is basically about the same, continues to show bilateral infiltrates and most likely underlying ARDS. Her labs showed WBC count of 13.0 hemoglobin 10.4. Electrolytes are normal renal profile is normal. ABG showed a pO2 of 61 pCO2 57 pH of 7.47. This was on 75%, and increase her FiO2 to 80% O2 saturation seems to be marginal on the monitor. Patient is off lidocaine drip today. Reevaluated today on 10/09/21, patient remains in the ICU, intubated and mechanically ventilated. Not much of the changes noted in the last few days, remains on assist control rate of 11/18/2024 FiO2 80% and PEEP of 16. ABG remains marginal, her pO2 is 62 pCO2 56 pH of 7.42. Patient remains on Nimbex at 3 mcg/kg/m fentanyl 1 mcg/kg/h propofol 40 mcg/kg/m, she is on clevidipine for milligrams per hour, IV fluids at KVO. Her WBC count is 17.1, and hemoglobin is 11.6. Electrolytes are normal and renal profile is normal. Chest x-ray continues to show multifocalopacities. And subcutaneous emphysema. No evidence of pneumothorax. Endotracheal tube, nasogastric tube and left central line are all in proper positions. Objective - Vital Signs Vital signs: Vital Signs Temp 97.6 F 10/09/21 08:00 Pulse 87 10/09/21 11:00 Resp 30 H 10/09/21 11:00 BP 128/60 10/09/21 11:00 Pulse Ox 92 L 10/09/21 11:00 Intake & Output 10/08/21 10/09/21 10/09/21 18:59 06:59 18:59 Intake Total 912.891 956.843 432.070 Output Total 2560 820 150 Balance -1647.109 136.843 282.070 Weight 96.8 kg 102.3 kg Intake: IV 10 260 40 .9 10 260 40 Intake, IV Titration 812.891 476.843 342.070 Amount Cisatracurium 200 mg In 70.09 129.91 195.736 Sodium Chloride 0.9% 180 ml @ 1 MCG/KG/MIN 5.16 mls/hr IV .Q24H [facility] Rx#: [id number] Clevidipine Butyrate 25 48 46.933 46.334 mg In Empty Bag 1 bag @ 1 MG/HR 2 mls/hr IV .Q24H [facility] Rx#:[id number] Lidocaine-D5w Pmx 2G/ 70.125 250Ml 2,000 mg In Dextrose/Water 1 250ml. bag @ 1 MG/MIN 7.5 mls/hr IV .Q24H [facility] Rx#: [id number] Norepinephrine 4 mg In 18.44 Sodium Chloride 0.9% 250 ml @ 0.05 MCG/KG/MIN 18. 44 mls/hr IV .[id number] [facility] Rx#:[id number] Sodium Chloride 0.9% 1, 170 000 ml @ 20 mls/hr IV . Q24H [facility] Rx#:[id number] fentaNYL (PF) 2,500 mcg 250 In Sodium Chloride 0.9% 200 ml @ 0.5 MCG/KG/HR 4. 6 mls/hr IV .Q24H [facility] Rx# :[id number] propofoL 1,000 mg In 186.236 300 100 Empty Bag 1 bag @ Titrate IV .Q0M [facility] Rx#: [id number] Tube Feeding 90 130 20 Other 90 30 Output: Urine 2560 820 150 Other: Voiding Method Indwelling Catheter Indwelling Catheter Indwelling Catheter ABP, PAP, CO, CI - Last Documented Arterial Blood Pressure 162/70 - Exam Physical Exam: Revealed a 61-year-old female in no distress. Intubated, sedated and paralyzed. Head: Atraumatic, normocephalic, endotracheal tube and orogastric tube is intact. HEENT:[Neck is supple.] [No neck masses.] [No thyromegaly.] [No JVD.] Chest: [Symmetrical chest expansion crackles and rhonchi at the bases. Cardiac Exam: [Distant S1 and S2, no S3 gallop. No murmur. Abdomen: [Soft, nontender, no megaly, no rebound, no guarding, normal bowel sounds.] Extremities: [No clubbing, trace of bipedal edema, no cyanosis.] Good pulses bilaterally. Neurological Exam: Cannot assess, patient is sedated and paralyzed. Psychiatric: Cannot assess patient is sedated and paralyzed. Skin: No rashes. - Labs CBC & Chem 7: 10/09/21 05:32 10/09/21 05:32 Labs: Abnormal Lab Results - Last 24 Hours (Table) 10/08/21 10/08/21 10/09/21 Range/Units 18:01 23:46 04:55 WBC (3.8-10.6) k/uL MCHC (31.0-37.0) g/dL RDW (11.5-15.5) % Neutrophils # (1.3-7.7) k/uL Monocytes # (0-1.0) k/uL ABG pCO2 56 H (35-45) mmHg ABG pO2 62 L (83-108) mmHg ABG HCO3 36 H (21-25) mmol/L ABG Total CO2 38 H (19-24) mmol/L ABG O2 Saturation 91.8 L (94-97) % Carbon Dioxide (22-30) mmol/L BUN (7-17) mg/dL Glucose (74-99) mg/dL POC Glucose (mg/dL) 165 H 105 H (75-99) mg/dL ALT (4-34) U/L Total Protein (6.3-8.2) g/dL Albumin (3.5-5.0) g/dL 10/09/21 10/09/21 10/09/21 Range/Units 05:32 05:32 06:03 WBC 17.1 H (3.8-10.6) k/uL MCHC 29.6 L (31.0-37.0) g/dL RDW 17.4 H (11.5-15.5) % Neutrophils # 14.0 H (1.3-7.7) k/uL Monocytes # 1.1 H (0-1.0) k/uL ABG pCO2 (35-45) mmHg ABG pO2 (83-108) mmHg ABG HCO3 (21-25) mmol/L ABG Total CO2 (19-24) mmol/L ABG O2 Saturation (94-97) % Carbon Dioxide 33 H (22-30) mmol/L BUN 34 H (7-17) mg/dL Glucose 127 H (74-99) mg/dL POC Glucose (mg/dL) 118 H (75-99) mg/dL ALT 54 H (4-34) U/L Total Protein 5.9 L (6.3-8.2) g/dL Albumin 2.8 L (3.5-5.0) g/dL Assessment and Plan Assessment: Impression: Acute hypoxic respiratory failure secondary to COVID-19 pneumonia and complicated with ARDS. Patient was intubated on 09/25/2021. Possible tracheostomy in few days. Acute deep vein thrombosis, on Eliquis. Acute COVID-19 pneumonia Subcutaneous emphysema, this is a complication of COVID-19 infection/pneumonia Prior history of DVT History of fibromyalgia Degenerative joint disease Mildly elevated liver enzymes secondary to cardona virus infection. Nonsustained ventricular tachycardia, resolved with lidocaine drip. Presently off lidocaine. Recommendation: Continue ventilatory support. Tracheostomy next week possible Continue ventilatory support. Titrate oxygen accordingly and maintain O2 saturation above 93%. Continue nutritional support/enteral feeding Continue to monitor closely the subcutaneous emphysema Continue GI and DVT prophylaxis, patient is on Protonix , resume Eliquis Continue cefepime, empirically. Continue COVID-19 cocktail. Continue to monitor inflammatory markers Continue Decadron. Patient is critically ill. Critical care time is over 30 minutes. Time with Patient: Greater than 30
--- NOTE | 2021-10-09 12:40 | P.PN ---
Progress Note - Text Progress Note Date: 10/09/21 Patient remains unchanged from yesterday. She is scheduled for tracheostomy PEG tube on Monday.
[2021-10-09 12:43] LABS: Glucose,Whole Blood 190 mg/dL (75-99)
[2021-10-09] MEDS: NOREPINEPHRINE 4 MG in SODIUM CHLORIDE 0.9% 250 ML IV SCH ×2 (12:45→23:16)
[2021-10-09] MEDS: FLUCONAZOLE IN NACL,ISO-OSM 100 MG in SALINE 1 50ML.BAG IVPB SCH (12:48)
--- NOTE | 2021-10-09 14:46 | PN ---
PROGRESS NOTE This 61-year-old lady was admitted to hospital with COVID pneumonia, intubated on vent. We have been consulted because of ventricular tachycardia. She was briefly on lidocaine. That has been stopped and she remains in sinus rhythm with episodes of bradycardia at times. On exam, comfortable at rest. Vital signs are stable. Chest exam reveals diminished air entry at the bases. Heart exam reveals first and second heart sounds. No gallop. No murmur. Abdomen is soft. Examination of extremities did not reveal any edema. Peripheral pulses are felt. Labs show a hemoglobin of 11.6, platelet count is 298, potassium is 3.8. Creatinine is 0.9. ASSESSMENT: 1. Ventricular tachycardia. 2. COVID pneumonia. 3. Respiratory failure. PLAN: Patient is stable from cardiac standpoint. Continue current medications. MMODL / IJN: [id number] /
[2021-10-09] MEDS: fentaNYL (PF) 2,500 MCG in SODIUM CHLORIDE 0.9% 200 ML IV SCH (15:20)
[2021-10-09 17:51] LABS: Glucose,Whole Blood 167 mg/dL (75-99)
[2021-10-09 23:05] LABS: Glucose,Whole Blood 136 mg/dL (75-99)
[2021-10-09] MEDS: LIDOCAINE-D5W PMX 2G/250ML 2,000 MG in DEXTROSE/WATER 1 250ML.BAG IV SCH (23:16)
[2021-10-10 01:37] LABS: LD Isoenzymes 1 19 % (19-38); LD Isoenzymes 2 29 % (30-43); LD Isoenzymes 3 18 % (16-26); LD Isoenzymes 4 12 % (3-12); LD Isoenzymes 5 22 % (3-14); Lactacte Dehydrogenase(LD) ISO 263 U/L (120-250)
[2021-10-10] MEDS: CISATRACURIUM 200 MG in SODIUM CHLORIDE 0.9% 180 ML IV SCH ×2 (02:59→16:44)
[2021-10-10] MEDS: CLEVIDIPINE BUTYRATE 25 MG in EMPTY BAG 1 BAG IV SCH ×6 (03:38→23:45)
[2021-10-10 03:53] LABS: Anisocytosis Slight; Basophils # (A) 0.1 k/uL (0-0.2); Basophils % (A) 1 %; Eosinophils # (A) 0.2 k/uL (0-0.7); Eosinophils % (A) 1 %; HCT 32.7 % (34.0-46.0); HGB 10.7 gm/dL (11.4-16.0); Hypochromasia Moderate; Lymphocytes # (A) 1.5 k/uL (1.0-4.8); Lymphocytes % (A) 9 %; MCH 29.4 pg (25.0-35.0); MCHC 32.8 g/dL (31.0-37.0); MCV 89.6 fL (80.0-100.0); Mean Platelet Volume 9.2; Monocytes # (A) 0.9 k/uL (0-1.0); Monocytes % (A) 6 %; Neutrophils # (A) 12.7 k/uL (1.3-7.7); Neutrophils % (A) 82 %; Platelet Count 266 k/uL (150-450); RBC 3.65 m/uL (3.80-5.40); RDW 17.6 % (11.5-15.5); WBC 15.6 k/uL (3.8-10.6)
[2021-10-10 04:14] LABS: African American GFR (CKD) >90 (>60 ml/min/1.73 sqM); Anion Gap 1 mmol/L; Blood Urea Nitrogen 35 mg/dL (7-17); Calcium 8.2 mg/dL (8.4-10.2); Carbon Dioxide 37 mmol/L (22-30); Chloride 100 mmol/L (98-107); Glucose 117 mg/dL (74-99); Non-African American GFR(CKD) >90 (>60 ml/min/1.73 sqM); Potassium 3.9 mmol/L (3.5-5.1); Sodium 138 mmol/L (137-145)
[2021-10-10 05:27] LABS: ABG Base Excess 13.9 mmol/L; ABG HCO3 37 mmol/L (21-25); ABG Oxygen Saturation 96.9 % (94-97); ABG PCO2 48 mmHg (35-45); ABG PO2 79 mmHg (83-108); ABG TCO2 39 mmol/L (19-24); Allen Test Performed? Yes
[2021-10-10 05:37] LABS: Glucose,Whole Blood 101 mg/dL (75-99)
[2021-10-10] MEDS: INSULIN ASPART (NovoLOG) 100 UNIT/ML VIAL SQ SCH ×4 (05:38→23:42)
[2021-10-10] MEDS ORDERED: POTASSIUM BICARBONATE/CIT AC 20 MEQ TABLET.EFF NG-TUBE SCH (06:00)
--- NOTE | 2021-10-10 07:49 | XR ---
EXAMINATION TYPE: XR chest 1V portable DATE OF EXAM: 10/10/2021 COMPARISON: Chest x-ray 10/09/2021 HISTORY: Respiratory failure, intubated TECHNIQUE: Single frontal view of the chest is obtained. FINDINGS: Endotracheal tube, NG tube, left-sided central venous catheter are all again noted. There are overlying appropriate positions. Bilateral airspace disease is suspected, there is extensive subc utaneous emphysema, suspected pneumomediastinum change. No evident pneumothorax or pleural effusion, cardiac mediastinal silhouette is stable. IMPRESSION: Correlate for pneumonia, ARDS, additional findings above
[2021-10-10] MEDS: PANTOPRAZOLE 40 MG/10 ML VIAL IV SCH (08:01)
[2021-10-10] MEDS: FUROSEMIDE 10 MG/ML 4 ML VIAL IV SCH (08:02)
[2021-10-10] MEDS: APIXABAN 5 MG TAB PO SCH ×2 (08:02→20:16)
[2021-10-10] MEDS: dexAMETHasone 2 MG TAB PO SCH (08:02)
[2021-10-10] MEDS: ERGOCALCIFEROL 1,250 MCG (50,000 IU) CAPSULE PO SCH ×2 (08:02→08:06)
[2021-10-10] MEDS: CHLORHEXIDINE GLUCONATE 15 ML CUP MUCOUS MEM SCH ×2 (08:02→20:16)
[2021-10-10] MEDS: ASCORBIC ACID 500 MG TAB PO SCH ×2 (08:02→20:17)
[2021-10-10] MEDS: ARTIFICIAL TEARS-HYPROMELLOSE DROPS 15 ML BTL BOTH EYES SCH ×4 (08:03→23:06)
[2021-10-10] MEDS: CEFEPIME 2 GM in SODIUM CHLORIDE 0.9% 100 ML IVPB SCH ×3 (08:06→23:45)
[2021-10-10] MEDS: ZINC SULFATE 220 MG CAP PO SCH (08:06)
[2021-10-10 11:41] LABS: Glucose,Whole Blood 166 mg/dL (75-99)
--- NOTE | 2021-10-10 12:06 | P.PN ---
Progress Note - Text Progress Note Date: 10/10/21 Patient maintained stable. She is planned for tracheostomy and PEG tube tomorrow with Dr. Markham.
[2021-10-10] MEDS: FLUCONAZOLE IN NACL,ISO-OSM 100 MG in SALINE 1 50ML.BAG IVPB SCH (12:33)
--- NOTE | 2021-10-10 13:19 | P.PN ---
Subjective Progress Note Date: 10/10/21 This is a 61-year-old female who was recently admitted with acute COVID-19 pneumonia with acute COVID-19 bilateral interstitial pneumonia and also with transaminitis and being closely monitored. Patient remains in the ICU and currently intubated and sedated with an FiO2 of 70% and PEEP is 18. 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 Patient did have a venous Doppler study done recently which showed left leg DVT and patient is maintained on Eliquis will continue. Patient also continues on empiric antibiotics and awaiting for sputum culture finalized. Patient was started on IV cefepime and will continue. Patient is also continued on oral dexamethasone along with vitamin and zinc supplements and will continue. Patient with some mild volume overload and given a dose of IV Lasix push today. 09/29/2021 Patient is seen and evaluated this morning continues to be closely monitored in the ICU and continues to be on mechanical ventilation and sedated. FiO2 was increased at 80% with a PEEP of 18 and oxygen saturations between 87-91%. Patient developing subcutaneous emphysema in the neck and chest wall area and chest x-ray today shows bilateral multifocal and confluent opacification is redemonstrated consistent with COVID-19 infection with a new small left apical pneumothorax estimated under 5% with new pneumomediastinum and recurrent overlying subcutaneous emphysema noted. Patient is white blood count mildly elevated at 16.1 and is continued on oral dexamethasone along with oral eliquis for anticoagulation. Patient continues to be on IV cefepime and blood and sputum cultures are negative thus far. 09/30/2021 Patient is seen today continues to be closely monitored in the ICU with multiple medical consultations following. Patient continues to be mechanically intubated and sedated with continued subcutaneous emphysema noted. Chest xray shows a trace left apical pneumothorax that is minimally smaller 7mm versus 1cm previously, extensive bilateral subcutaneous emphysema persists and diffuse interstitial changes and bilateral patchy opacities persist with slight improvement in aeration in the lower lungs. Per nursing staff corbin was clogged with copious amounts of white discharge and will add diflucan and corbin catheter has been changed and draining adequately. Patient continues on IV cefepime. Patient tolerating tube feeds and will continue. 10/01/2021 Patient is seen and evaluated in follow up this morning and continues to be closely monitored. Multiple medical consultations following and patient cont inues to be on mechanical vent and sedated. Patient continues on IV Cefepime and diflucan. Patient chest xray today shows stable extensive subcutaneous emphysema, no pneumothorax, and patchy bilateral lung infiltrates remain present. INflammatory markers trending down. 10/04/2021 Patient is seen in follow-up continues to be closely monitored in the ICU. Patient remains on mechanical vent with an FI02 of 65% and peep is 18. 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 Patient continues with extensive subq emphysema noted on exam. 10/05/2021 Patient Is seen and evaluated this morning with continued attempts at weaning and continues on mechanical vent and intubated with pulmonary sole leather cutting machine operator following closely. Patient remains on Eliquis which will be held as surgery Dr. Nelson was consulted for possible PEG and trach tube placement for unsuccessful attempts at weaning from ventilation and prolonged hospitalization on mechanical vent. Chest x-ray today shows recurrent tiny left apical pneumothorax estimated under 5% with worsening overlying subcutaneous emphysema and again pneumomediastinum redemonstrated with multifocal confluent opacification's r edemonstrated consistent with COVID-19 infection and/or arts are redemonstrated with no significant change from one day previously. Patient continues on FiO2 of 65% and PEEP was weaned down to 14 today. IV cefepime discontinued. 10/06/2021 Patient is seen in follow-up this morning per nursing staff patient had multiple runs of ectopy an irregular heart rate and rhythms with PVCs and cardiology consulted. Patient was placed on lidocaine drip and was originally on eliquis is currently on hold for possible PEG and trach placement with general surgery following. Patient had difficulty maintaining oxygen saturations and FiO2 was increased to 100% and PEEP continues at 14. Multiple medical consultations following and patient continues on oral steroids along with vitamin and zinc supplements along with fluconazole. Patient being started on IV Lasix daily and recommend close monitoring of electrolytes and kidney functions. 10/07/2021 Patient is seen in follow-up this morning continues to be monitored closely in the ICU with multiple medical consultations following. Patient is currently on mechanical vent with an FiO2 of 80% and PEEP is 16. General surgery also following for possible PEG and trach placement and will need to discuss with surgery about when this will occur. Patient remains on fluconazole. She also continues on vitamin and zinc supplements along with oral dexamethasone, clevidipine, Nimbex, IV Lasix, fentanyl and propofol and is off norepinephrine. Chest x-ray shows stable bilateral lung infiltrates. 10/08/2021 Patient is seen this morning continues to be on mechanical vent with an FiO2 of 85% and PEEP of 16. Patient continues with extensive subcutaneous emphysema and plans are for possible PEG and trach placement although on hold until possibly n ext week once more stable. Patient continues on Cleviprex along with fentanyl and propofol and is receiving IV Lasix daily. Patient also continues on lidocaine drip which is currently on hold and cardiology is following closely. Anticoagulant was resumed for now again until more stable to undergo PEG and trach placement. Chest x-ray today shows persistent bilateral multifocal and confluent increased opacification is with persistent overlying subcutaneous emphysema noted in pneumomediastinum is again redemonstrated. Labs:WBC is 13.0, hemoglobin is 10.4, platelets are 255, sodium is 138, po tassium 4.2, BUN 29, creatinine 0.84, calcium is 8.4 Patient evaluated today in ICU mechanical ventilation with FiO2 of 80%. Chest x-ray this morning shows similar multifocal airspace opacities and stable support lines and tubes. Similar subcutaneous emphysema scattered throughout the visualized thorax. PEG and trach plan for next week once more stable. Current meds include Cleviprex, Nimbex, fentanyl, propofol. She is receiving IV fluconazole, as well as IV Lasix. Levophed and Lidocaine gtt;s are on hold. Positive bowel sounds. Current vitals afebrile, heart rate 71, blood pressure 135/60 and oxygen saturation is 93%. Respirations 30. Labs today, white count 17, hemoglobin 11.6, sodium 139, potassium 3.8, BUN 34, creatinine 0.91, CO2 33, calcium 8.7, ALT 54, albumin 2.8 with blood sugars in the 100s. 10/10/2021 Patient evaluated today in the ICU on the mechanical VENT with fio2 of 100%. Positive bowel movement today, Stage 2 pressure ulcer on coccyx per RN, optifoam ordered. Per RN they were unable to patient as she was desaturating. They're unable to wean Fi02 currently as she does desaturate with any time of movement. She was lying more on her right side during evaluation and pulse ox was dropping into high 80s she was being repositioned by nurses. Plan is to PEG/TRACH patient tomorrow. Last family update was 4 days ago. We will call and discuss case today. Patient is afebrile, heart rate 84, respirations 30, blood pressure 141/55, 92% oxygen saturation on 100% Fi02, which was increased today up from 70 Fi02%. Labs today show WBC of 15.6, hgbl 10.7, sodium 138, potassium 3.9, chloride 100, CO2 37, glucose 117, calcium 8.2. Chest xray today shows pneumonia, ARDS. Review of systems: Unable to obtain as patient is mechanically intubated and sedated Physical Exam: Gen: This is a 61-year-old female currently sedated and intubated. mechanical ventilation Fio2 100% HEENT: Head is atraumatic, normocephalic. Pupils equal, round. Sclerae is anicteric. NECK: Supple. No JVD. No lymphadenopathy. No thyromegaly. subcutaneous emphysema noted in the neck and chest wall area bilaterally. LUNGS: Diminished breath sounds bilaterally with coarse rhonchi and crackles noted. Having intercostal retractions and desaturating with movement HEART: S1, S2 are muffled ABDOMEN: Soft. Bowel sounds are present. No masses. No tenderness. +BM on 10/10 EXTREMITIES: Trace pedal edema +2 bilat dorsalis pedis pulse. No calf tenderness. Bilateral upper extremity edema noted NEUROLOGICAL: Patient is currently intubated and sedated Assessment: Acute COVID-19 infection with acute COVID-19 bilateral interstitial pneumonia with hypoxic hypercarbic respiratory failure on mechanical vent now 100% Fi02 Subcutaneous emphysema of the neck and chest with a left apical pneumothorax less than 5% Non-sustained ventricular tachycardia, lidocaine gtt off, resolved, stable per cardiology perspective Acute left leg deep vein thrombosis Acute respiratory acidosis Primary hypercoagulable state and factor V week deficiency Possible candidiasis secondary to prolonged indwelling Corbin catheter Mild transaminitis, possibly secondary to COVID-19 History of DVT History of degenerative joint disease History of fibromyalgia Acute respiratory acidosis Increased white blood count, stable anemia, of undetermined etiology Elevated inflammatory markers of COVID-19 Obesity with a body mass index of 38.1 Full code DVT Prophylaxis: Eliquis GI Prophylaxis: Protonix Plan: Recommend to continue with current medications and follow along closely with multiple medical consultations. Prognosis remains guarded with multiple complex medical issues noted. Patient continues on mechanical ventilation and FiO2 has now been increased back up to 100% today. Unable to tolerate much movement as she desaturates. Patient has had prolonged hospitalization and prolonged m echanical ventilation and general surgery Dr. Nelson following for PEG and trach placement which is tentative for tomorrow. Per nursing staff patient has been off and on of Cleviprex and Levophed as blood pressure and heart rate are extremely variable. Now with stage 2 pressure ulcer reported by nurse. Recommend to continue with current medications. Chest x-ray reviewed as mentioned above. Recommend repeat labs and continued close monitoring. Again due to multiple complex medical issues overall prognosis is quite guarded. Will attempt to discuss prognosis with family today. Objective - Vital Signs Vital signs: Vital Signs Temp 97.9 F 10/10/21 08:00 Pulse 84 10/10/21 12:00 Resp 30 H 10/10/21 12:00 BP 144/64 10/10/21 12:00 Pulse Ox 92 L 10/10/21 12:00 Intake & Output 10/09/21 10/10/21 10/10/21 18:59 06:59 18:59 Intake Total 8997.783 4764.947 355.745 Output Total 1510 865 585 Balance -128.041 157.947 -229.255 Weight 94.6 kg Intake: IV 270 273 75 .9 220 240 60 Fluconazole in NaCl,Iso- 50 Osm 100 mg In Saline 1 50ml.bag @ 50 mls/hr IVPB DAILY@1200 [facility] Rx#: [id number] pressure bag 33 15 Intake, IV Titration 911.959 549.947 230.745 Amount Cefepime 2 gm In Sodium 100 Chloride 0.9% 100 ml @ 25 mls/hr IVPB Q8HR [facility] Rx# :[id number] Cisatracurium 200 mg In 300.484 159.444 Sodium Chloride 0.9% 180 ml @ 1 MCG/KG/MIN 5.16 mls/hr IV .Q24H [facility] Rx#: [id number] Clevidipine Butyrate 25 140.667 110.867 0 mg In Empty Bag 1 bag @ 1 MG/HR 2 mls/hr IV .Q24H [facility] Rx#:[id number] fentaNYL (PF) 2,500 mcg 207.307 In Sodium Chloride 0.9% 200 ml @ 0.5 MCG/KG/HR 4. 6 mls/hr IV .Q24H [facility] Rx# :[id number] propofoL 1,000 mg In 263.501 279.636 130.745 Empty Bag 1 bag @ Titrate IV .Q0M [facility] Rx#: [id number] Tube Feeding 110 110 50 Other 90 90 Output: Urine 1510 865 585 Other: Voiding Method Indwelling Catheter Indwelling Catheter Indwelling Catheter # Bowel Movements 1 ABP, PAP, CO, CI - Last Documented Arterial Blood Pressure 141/55 - Labs CBC & Chem 7: 10/10/21 03:45 10/10/21 03:45 Labs: Abnormal Lab Results - Last 24 Hours (Table) 10/05/21 10/09/21 10/09/21 Range/Units 04:22 17:50 23:03 WBC (3.8-10.6) k/uL RBC (3.80-5.40) m/uL Hgb (11.4-16.0) gm/dL Hct (34.0-46.0) % RDW (11.5-15.5) % Neutrophils # (1.3-7.7) k/uL ABG pH (7.35-7.45) ABG pCO2 (35-45) mmHg ABG pO2 (83-108) mmHg ABG HCO3 (21-25) mmol/L ABG Total CO2 (19-24) mmol/L Carbon Dioxide (22-30) mmol/L BUN (7-17) mg/dL Glucose (74-99) mg/dL POC Glucose (mg/dL) 167 H 136 H (75-99) mg/dL Calcium (8.4-10.2) mg/dL LD Isoenzymes 263 H (120-250) U/L LD 2 29 L (30-43) % LD 5 22 H (3-14) % 10/10/21 10/10/21 10/10/21 Range/Units 03:45 03:45 05:25 WBC 15.6 H (3.8-10.6) k/uL RBC 3.65 L (3.80-5.40) m/uL Hgb 10.7 L (11.4-16.0) gm/dL Hct 32.7 L (34.0-46.0) % RDW 17.6 H (11.5-15.5) % Neutrophils # 12.7 H (1.3-7.7) k/uL ABG pH 7.50 H (7.35-7.45) ABG pCO2 48 H (35-45) mmHg ABG pO2 79 L (83-108) mmHg ABG HCO3 37 H (21-25) mmol/L ABG Total CO2 39 H (19-24) mmol/L Carbon Dioxide 37 H (22-30) mmol/L BUN 35 H (7-17) mg/dL Glucose 117 H (74-99) mg/dL POC Glucose (mg/dL) (75-99) mg/dL Calcium 8.2 L (8.4-10.2) mg/dL LD Isoenzymes (120-250) U/L LD 2 (30-43) % LD 5 (3-14) % 10/10/21 10/10/21 Range/Units 05:35 11:40 WBC (3.8-10.6) k/uL RBC (3.80-5.40) m/uL Hgb (11.4-16.0) gm/dL Hct (34.0-46.0) % RDW (11.5-15.5) % Neutrophils # (1.3-7.7) k/uL ABG pH (7.35-7.45) ABG pCO2 (35-45) mmHg ABG pO2 (83-108) mmHg ABG HCO3 (21-25) mmol/L ABG Total CO2 (19-24) mmol/L Carbon Dioxide (22-30) mmol/L BUN (7-17) mg/dL Glucose (74-99) mg/dL POC Glucose (mg/dL) 101 H 166 H (75-99) mg/dL Calcium (8.4-10.2) mg/dL LD Isoenzymes (120-250) U/L LD 2 (30-43) % LD 5 (3-14) %
--- NOTE | 2021-10-10 13:21 | P.PN ---
Subjective Progress Note Date: 10/10/21 Principal diagnosis: Acute hypoxic respiratory failure secondary to COVID-19 pneumonia 10/03/2021, the patient remains essentially unchanged. In fact I haven't seen much of a progress on this patient's condition over the past 1 week. She remains in ARDS post COVID 19 related pneumonia on the chest x-ray showed diffuse bilateral pulmonary infiltrates along with some subcutaneous emphysema. The patient remains sedated and paralyzed. The patient remains on propofol running at 50 mcg/kg per minute and the patient is also on fentanyl at 1 mcg/kg per minute and the patient is also on Nimbex at 1.5 Ash respiratory kilo gram per minutes. The mechanical ventilator settings essentially unchanged. I was able to drop her FiO2 down to 65%. PEEP is at 18. The Tidal volumes of 325 and the rate is at 26. Peak airway pressure is 41. Chest x-ray is unchanged. This appears emphysema has somewhat improved. angio Catheter replaced in to deflate the edema further. She remains on anticoagulation with Eliquis regarding her lower extremity DVT. Inflammatory markers have not been checked today. Most recent inflammatory markers showed marked drop in the LDH and a CRP. The patient remains on Decadron. The patient remains on Eliquis. Decadron is being used at a dose of 60 mg IV on a daily basis. The patient remains on empiric antibiotic coverage with IV cefepime and Diflucan. Hemodynamically stable. She is on no pressors. No fever. No chills. Her overall fluid balance has been -221 mL over the past 24 hours. She continues to have some edema in the upper and lower extremities bilaterally. She is tolerating her enteral feeding for nutritional support. She is on vitamin H. The rate of 24 mL an hour. She is having bowel movements with the help of Col ricky. Cardiac rhythm remains sinus. Her white cell count of 10.1 with a hemoglobin of 9.5. Platelet count is at 252. Creatinine is at 43 with a creatinine of 0.5. Cultures of been all negative. The patient has been on cefepime since 09/28/2021. Patient was reevaluated today on 10/04/2021, patient remains in the ICU, intubated and mechanically ventilated. Patient was initially intubated on 09/25/2021, her ventilator settings are assist control rate 26, volume 325 FiO2 65% and PEEP is 18. ABG showed a pO2 of 69 pCO2 of 59 pH of 7.38. Respiratory rate was increased to 30 and the flow rate was cut down to 50 L/m. Patient remains on propofol at 60 mcg/kg/m Nimbex at 2 mcg/kg/m fentanyl 1 mcg/kg/h, and on clevidipine at 4 mg per hour. Patient is receiving enteral feeding vital HP at . Patient is on Decadron 6 mg IV push daily, she is on Eliquis because she was diagnosed as having left lower extremity deep vein thrombosis. Chest x-ray continues to show bilateral interstitial infiltrates, subcu emphysema, adequate positioning of the endotracheal tube, and that catheter/triple-lumen catheter. Patient is sedated and paralyzed. WBC count is 10.8 hemoglobin is 9.2. Electrolytes are normal renal profile is normal liver enzymes are relatively unremarkable. Slightly elevated ALT 48, blood sugar is 134 today. Patient was reevaluated today on 10/05/2021, patient remains in the ICU, intubated, mechanically ventilated. Patient is on assist control rate of 30, tidal volume is 325, PEEP was cut down to 14, it was initially at 18, FiO2 is 65%. And I plan to taper the FiO2 down if tolerated. ABG earlier today showed a pO2 of 58 pCO2 of 63 pH of 7.39, however her O2 saturation on the monitor. Pulse oximetry is actually 99%. Hence I cut down the PEEP, and kept her on the same FiO2 for now. She seemed to be doing a bit better with lower PEEP. Patient remains on Nimbex at 2 mcg/kg/m fentanyl and 0.5 mcg/kg per hour. Patient is receiving vital HP at 10 mL per hour. And she is on propofol at 40 mcg/kg/m. Peak airway pressure today is 57 plateau pressure is 31. Patient is off clevidipine this morning. And considering her leukocytosis is noted on the WBC count today being 18, I will keep the patient on cefepime for now. Asked x- ray is basically showing no major change. And today I discussed her condition with her daughter over the phone, and recommended a tracheostomy and PEG tube placement, the daughter requested Dr. balbuena to do it. And we will consult Dr. balbuena for that purpose. Not much of a change otherwise over the last 24 hours, patient remains on Eliquis for left lower extremity deep vein thrombosis. A hayward seems to have worsening subcutaneous emphysema today, I went ahead and placed to 14-gauge Angiocaths, one in the left anterior chest and one in the right anterior chest in the subcutaneous tissue. Hoping that will decompress her subcutaneous emphysema. This was done under sterile conditions. Patient was reevaluated today on 10/06/2021, patient remains intubated and mechanically ventilated, remains in the ICU, she developed last night intermittent episodes of nonsustained ventricular tachycardia, patient was seen by cardiology on consultation, recommended lidocaine, and she is on lidocaine drip. Patient required increase in her FiO2, and she is now on assist control rate of 30, tidal volume 325 FiO2 is 100%, PEEP is at 14, increased PEEP to 16 this morning. FiO2 was increased apparently last night the 100%. ABG this mor minna on 100% FiO2 showed a pO2 of 67 pCO2 of 58 pH of 7.44. I did cut down the FiO2 to 90%, and I recommended that the patient could be tried on prone position hopefully today. Also recommended a dose of Lasix 40 mg IV push to be given. Chest x-ray continues to show significantdisease, ARDS, not much of a change noted on the chest x-ray, continues to have significant subcutaneous emphysema but clinically improved compared to the subcutaneous emphysema noted yesterday. Ration is now on lidocaine drip, she is also on propofol 50 Nimbex at 2.5, fentanyl at 1 mcg/kg/h, and IV fluid at 20 mL per hour in the form of 0.9 normal saline. Again her PEEP was increased to 16. During my evaluation, patient was noted to be in sinus rhythm, no arrhythmia noted, however the patient is on lidocaine drip. CBC showed leukocytosis with WBC of 16.1 hemoglobin is 11.2. Basic metabolic profile is normal, bicarb is 36. Blood sugar is 130. Magnesium is 2.5. Reevaluated today on 10/07/21, patient remains in the ICU, intubated and mechanically ventilated. Remains on assist control rate of 30 tidal volume 325 FiO2 90% overnight and I cut it down to 80% this morning, she is on a PEEP of 16. ABG showed a pO2 of 61 pCO2 57 pH of 7.41 and this was on 90%. Electrolytes are normal renal profile is normal her bicarb is 34. WBC count is 15.9 hemoglobin 11.2. Chest x-ray continues to show bilateral infiltrates consistent with COVID-19 pneumonia, not much of a change noted on the chest x- ray. Patient remains on multiple drips including fentanyl 1 mcg/kg/h, propofol 50 mcg/kg/m, Nimbex 2 mcg/kg/m, lidocaine 1 mg/m. No further issues related to her arrhythmias. Remains on lidocaine patient is supposed to have tracheostomy and PEG tube placement today, and that is yet to be decided upon by Dr. balbuena on the case. Overall not much of a change overnight, patient continues to have significant subcutaneous emphysema. Remains on enteral feeding which is presently on hold because of plans for tracheostomy. Patient has been up to goal. Sedate I updated her family including her and her daughter about her overall status. And they are very well aware that she is critically ill, and prognosis is guarded, but definitely not futile and not hopeless yet. Reevaluated today on 10/08/21, patient remains in the ICU, intubated, mechanically ventilated, does not seem to be doing much better today. Patient is basically about the same, remains on assist control rate of 30 tidal volume 325 FiO2 is up to 85% PEEP remains at 16. Try to increase the PEEP, however there was a significant increase in her peak airway pressure and plateau pressure. Presently her peak airway pressure is 38, and plateau pressure is 34. Patient remains on propofol at 40 mcg/kg/m Nimbex of 0.5 but granted kilo per minute fentanyl 1 mcg/kg/h clevidipine 5 mg per hour. Chest x-ray is basically about the same, continues to show bilateral infiltrates and most likely underlying ARDS. Her labs showed WBC count of 13.0 hemoglobin 10.4. Electrolytes are normal renal profile is normal. ABG showed a pO2 of 61 pCO2 57 pH of 7.47. This was on 75%, and increase her FiO2 to 80% O2 saturation seems to be marginal on the monitor. Patient is off lidocaine drip today. Reevaluated today on 10/09/21, patient remains in the ICU, intubated and mechanically ventilated. Not much of the changes noted in the last few days, remains on assist control rate of 11/18/2024 FiO2 80% and PEEP of 16. ABG remains marginal, her pO2 is 62 pCO2 56 pH of 7.42. Patient remains on Nimbex at 3 mcg/kg/m fentanyl 1 mcg/kg/h propofol 40 mcg/kg/m, she is on clevidipine for milligrams per hour, IV fluids at KVO. Her WBC count is 17.1, and hemoglobin is 11.6. Electrolytes are normal and renal profile is normal. Chest x-ray continues to show multifocalopacities. And subcutaneous emphysema. No evidence of pneumothorax. Endotracheal tube, nasogastric tube and left central line are all in proper positions. Reevaluated today on 10/10/21, patient remains in the ICU, intubated and mechanically ventilated. She is presently on assist control rate of 30 tidal volume 325 FiO2 70% PEEP of 16. Her ABG showed a pO2 of 79 pCO2 48 pH of 7.50. Chest x-ray is basically showing no change. Continues to have bilateral infiltrates. Electrolytes are normal bicarb is 37 BUN is 35 creatinine 0.69 WBC count is 15.6 hemoglobin is 10.7. Patient remains on vital HPI 10 mL per hour. She is off level Prax, and her blood pressure seems to be relatively stable. Patient remains sedated and paralyzed, she is on propofol at 50 mcg/kg/m Nimbex at 3 mcg/kg/m fentanyl 12 mcg/kg/h, she is supposed to undergo tracheostomy and PEG tube placement next week, her Eliquis was restarted, needs to be placed on hold once the decision was made whether she is undergoing tracheostomy and PEG tube tomorrow by Dr. balbuena Objective - Vital Signs Vital signs: Vital Signs Temp 97.9 F 10/10/21 08:00 Pulse 84 10/10/21 12:00 Resp 30 H 10/10/21 12:00 BP 144/64 10/10/21 12:00 Pulse Ox 92 L 10/10/21 12:00 Intake & Output 10/09/21 10/10/21 10/10/21 18:59 06:59 18:59 Intake Total 8089.495 8227.947 355.745 Output Total 1510 865 585 Balance -128.041 157.947 -229.255 Weight 94.6 kg Intake: IV 270 273 75 .9 220 240 60 Fluconazole in NaCl,Iso- 50 Osm 100 mg In Saline 1 50ml.bag @ 50 mls/hr IVPB DAILY@1200 [facility] Rx#: [id number] pressure bag 33 15 Intake, IV Titration 911.959 549.947 230.745 Amount Cefepime 2 gm In Sodium 100 Chloride 0.9% 100 ml @ 25 mls/hr IVPB Q8HR [facility] Rx# :[id number] Cisatracurium 200 mg In 300.484 159.444 Sodium Chloride 0.9% 180 ml @ 1 MCG/KG/MIN 5.16 mls/hr IV .Q24H [facility] Rx#: [id number] Clevidipine Butyrate 25 140.667 110.867 0 mg In Empty Bag 1 bag @ 1 MG/HR 2 mls/hr IV .Q24H [facility] Rx#:[id number] fentaNYL (PF) 2,500 mcg 207.307 In Sodium Chloride 0.9% 200 ml @ 0.5 MCG/KG/HR 4. 6 mls/hr IV .Q24H [facility] Rx# :[id number] propofoL 1,000 mg In 263.501 279.636 130.745 Empty Bag 1 bag @ Titrate IV .Q0M [facility] Rx#: [id number] Tube Feeding 110 110 50 Other 90 90 Output: Urine 1510 865 585 Other: Voiding Method Indwelling Catheter Indwelling Catheter Indwelling Catheter # Bowel Movements 1 ABP, PAP, CO, CI - Last Documented Arterial Blood Pressure 141/55 - Exam Physical Exam: Revealed a 61-year-old female in no distress. Intubated, sedated and paralyzed. Head: Atraumatic, normocephalic, endotracheal tube and orogastric tube is intact. HEENT:[Neck is supple.] [No neck masses.] [No thyromegaly.] [No JVD.] Chest: [Symmetrical chest expansion crackles and rhonchi at the bases. Cardiac Exam: [Distant S1 and S2, no S3 gallop. No murmur. Abdomen: [Soft, nontender, no megaly, no rebound, no guarding, normal bowel sounds.] Extremities: [No clubbing, trace of bipedal edema, no cyanosis.] Good pulses bilaterally. Neurological Exam: Cannot assess, patient is sedated and paralyzed. Psychiatric: Cannot assess patient is sedated and paralyzed. Skin: No rashes. - Labs CBC & Chem 7: 10/10/21 03:45 10/10/21 03:45 Labs: Abnormal Lab Results - Last 24 Hours (Table) 10/05/21 10/09/21 10/09/21 Range/Units 04:22 17:50 23:03 WBC (3.8-10.6) k/uL RBC (3.80-5.40) m/uL Hgb (11.4-16.0) gm/dL Hct (34.0-46.0) % RDW (11.5-15.5) % Neutrophils # (1.3-7.7) k/uL ABG pH (7.35-7.45) ABG pCO2 (35-45) mmHg ABG pO2 (83-108) mmHg ABG HCO3 (21-25) mmol/L ABG Total CO2 (19-24) mmol/L Carbon Dioxide (22-30) mmol/L BUN (7-17) mg/dL Glucose (74-99) mg/dL POC Glucose (mg/dL) 167 H 136 H (75-99) mg/dL Calcium (8.4-10.2) mg/dL LD Isoenzymes 263 H (120-250) U/L LD 2 29 L (30-43) % LD 5 22 H (3-14) % 10/10/21 10/10/21 10/10/21 Range/Units 03:45 03:45 05:25 WBC 15.6 H (3.8-10.6) k/uL RBC 3.65 L (3.80-5.40) m/uL Hgb 10.7 L (11.4-16.0) gm/dL Hct 32.7 L (34.0-46.0) % RDW 17.6 H (11.5-15.5) % Neutrophils # 12.7 H (1.3-7.7) k/uL ABG pH 7.50 H (7.35-7.45) ABG pCO2 48 H (35-45) mmHg ABG pO2 79 L (83-108) mmHg ABG HCO3 37 H (21-25) mmol/L ABG Total CO2 39 H (19-24) mmol/L Carbon Dioxide 37 H (22-30) mmol/L BUN 35 H (7-17) mg/dL Glucose 117 H (74-99) mg/dL POC Glucose (mg/dL) (75-99) mg/dL Calcium 8.2 L (8.4-10.2) mg/dL LD Isoenzymes (120-250) U/L LD 2 (30-43) % LD 5 (3-14) % 10/10/21 10/10/21 Range/Units 05:35 11:40 WBC (3.8-10.6) k/uL RBC (3.80-5.40) m/uL Hgb (11.4-16.0) gm/dL Hct (34.0-46.0) % RDW (11.5-15.5) % Neutrophils # (1.3-7.7) k/uL ABG pH (7.35-7.45) ABG pCO2 (35-45) mmHg ABG pO2 (83-108) mmHg ABG HCO3 (21-25) mmol/L ABG Total CO2 (19-24) mmol/L Carbon Dioxide (22-30) mmol/L BUN (7-17) mg/dL Glucose (74-99) mg/dL POC Glucose (mg/dL) 101 H 166 H (75-99) mg/dL Calcium (8.4-10.2) mg/dL LD Isoenzymes (120-250) U/L LD 2 (30-43) % LD 5 (3-14) % Assessment and Plan Assessment: Impression: Acute hypoxic respiratory failure secondary to COVID-19 pneumonia and complicated with ARDS. Patient was intubated on 09/25/2021. Possible tracheostomy in the next couple of days possibly tomorrow Acute deep vein thrombosis, on Eliquis. May have to placed on hold if a decision is made to have tracheostomy tomorrow. Acute COVID-19 pneumonia Subcutaneous emphysema, this is a complication of COVID-19 infection/pneumonia Prior history of DVT History of fibromyalgia Degenerative joint disease Mildly elevated liver enzymes secondary to cardona virus infection. Nonsustained ventricular tachycardia, resolved Recommendation: Continue ventilatory support. Tracheostomy next week possible Continue ventilatory support. No changes were made today and her ventilatory settings. Continue to titrate oxygen and FiO2 as tolerated. Continue nutritional support/enteral feeding Continue to monitor closely the subcutaneous emphysema Continue GI and DVT prophylaxis, patient is on Protonix , will decide on Eliquis depending whether the decision is to proceed with tracheostomy and PEG tube placement tomorrow. Continue cefepime, empirically. Continue COVID-19 cocktail. Continue to monitor inflammatory markers Continue Decadron. Patient is critically ill. Critical care time is over 30 minutes. Time with Patient: Greater than 30
--- NOTE | 2021-10-10 14:15 | P.PN ---
Subjective Overall clinical condition remains unchanged from cardiac standpoint she is in sinus rhythm and does not have any episodes of ventricular tachycardia with very little movement patient is becoming hypoxic Patient is on a liquid is for DVT Physical exam shows that she is in sinus rhythm blood pressure is well- controlled Continue to watch her on telemetric Prognosis guarded Objective - Vital Signs Vital signs: Vital Signs Temp 97.9 F 10/10/21 08:00 Pulse 84 10/10/21 12:00 Resp 30 H 10/10/21 12:00 BP 144/64 10/10/21 12:00 Pulse Ox 92 L 10/10/21 12:00 Intake & Output 10/09/21 10/10/21 10/10/21 18:59 06:59 18:59 Intake Total 5175.885 2041.947 355.745 Output Total 1510 865 585 Balance -128.041 157.947 -229.255 Weight 94.6 kg Intake: IV 270 273 75 .9 220 240 60 Fluconazole in NaCl,Iso- 50 Osm 100 mg In Saline 1 50ml.bag @ 50 mls/hr IVPB DAILY@1200 [facility] Rx#: [id number] pressure bag 33 15 Intake, IV Titration 911.959 549.947 230.745 Amount Cefepime 2 gm In Sodium 100 Chloride 0.9% 100 ml @ 25 mls/hr IVPB Q8HR [facility] Rx# :[id number] Cisatracurium 200 mg In 300.484 159.444 Sodium Chloride 0.9% 180 ml @ 1 MCG/KG/MIN 5.16 mls/hr IV .Q24H [facility] Rx#: [id number] Clevidipine Butyrate 25 140.667 110.867 0 mg In Empty Bag 1 bag @ 1 MG/HR 2 mls/hr IV .Q24H [facility] Rx#:[id number] fentaNYL (PF) 2,500 mcg 207.307 In Sodium Chloride 0.9% 200 ml @ 0.5 MCG/KG/HR 4. 6 mls/hr IV .Q24H [facility] Rx# :[id number] propofoL 1,000 mg In 263.501 279.636 130.745 Empty Bag 1 bag @ Titrate IV .Q0M [facility] Rx#: [id number] Tube Feeding 110 110 50 Other 90 90 Output: Urine 1510 865 585 Other: Voiding Method Indwelling Catheter Indwelling Catheter Indwelling Catheter # Bowel Movements 1 ABP, PAP, CO, CI - Last Documented Arterial Blood Pressure 141/55 - Labs CBC & Chem 7: 10/10/21 03:45 10/10/21 03:45 Labs: Abnormal Lab Results - Last 24 Hours (Table) 10/05/21 10/09/21 10/09/21 Range/Units 04:22 17:50 23:03 WBC (3.8-10.6) k/uL RBC (3.80-5.40) m/uL Hgb (11.4-16.0) gm/dL Hct (34.0-46.0) % RDW (11.5-15.5) % Neutrophils # (1.3-7.7) k/uL ABG pH (7.35-7.45) ABG pCO2 (35-45) mmHg ABG pO2 (83-108) mmHg ABG HCO3 (21-25) mmol/L ABG Total CO2 (19-24) mmol/L Carbon Dioxide (22-30) mmol/L BUN (7-17) mg/dL Glucose (74-99) mg/dL POC Glucose (mg/dL) 167 H 136 H (75-99) mg/dL Calcium (8.4-10.2) mg/dL LD Isoenzymes 263 H (120-250) U/L LD 2 29 L (30-43) % LD 5 22 H (3-14) % 10/10/21 10/10/21 10/10/21 Range/Units 03:45 03:45 05:25 WBC 15.6 H (3.8-10.6) k/uL RBC 3.65 L (3.80-5.40) m/uL Hgb 10.7 L (11.4-16.0) gm/dL Hct 32.7 L (34.0-46.0) % RDW 17.6 H (11.5-15.5) % Neutrophils # 12.7 H (1.3-7.7) k/uL ABG pH 7.50 H (7.35-7.45) ABG pCO2 48 H (35-45) mmHg ABG pO2 79 L (83-108) mmHg ABG HCO3 37 H (21-25) mmol/L ABG Total CO2 39 H (19-24) mmol/L Carbon Dioxide 37 H (22-30) mmol/L BUN 35 H (7-17) mg/dL Glucose 117 H (74-99) mg/dL POC Glucose (mg/dL) (75-99) mg/dL Calcium 8.2 L (8.4-10.2) mg/dL LD Isoenzymes (120-250) U/L LD 2 (30-43) % LD 5 (3-14) % 10/10/21 10/10/21 Range/Units 05:35 11:40 WBC (3.8-10.6) k/uL RBC (3.80-5.40) m/uL Hgb (11.4-16.0) gm/dL Hct (34.0-46.0) % RDW (11.5-15.5) % Neutrophils # (1.3-7.7) k/uL ABG pH (7.35-7.45) ABG pCO2 (35-45) mmHg ABG pO2 (83-108) mmHg ABG HCO3 (21-25) mmol/L ABG Total CO2 (19-24) mmol/L Carbon Dioxide (22-30) mmol/L BUN (7-17) mg/dL Glucose (74-99) mg/dL POC Glucose (mg/dL) 101 H 166 H (75-99) mg/dL Calcium (8.4-10.2) mg/dL LD Isoenzymes (120-250) U/L LD 2 (30-43) % LD 5 (3-14) %
[2021-10-10] MEDS: NOREPINEPHRINE 4 MG in SODIUM CHLORIDE 0.9% 250 ML IV SCH (16:43)
[2021-10-10 18:04] LABS: Glucose,Whole Blood 149 mg/dL (75-99)
[2021-10-10] MEDS: fentaNYL (PF) 2,500 MCG in SODIUM CHLORIDE 0.9% 200 ML IV SCH (19:55)
[2021-10-10] MEDS: LIDOCAINE-D5W PMX 2G/250ML 2,000 MG in DEXTROSE/WATER 1 250ML.BAG IV SCH (23:42)
[2021-10-10 23:43] LABS: Glucose,Whole Blood 125 mg/dL (75-99)
[2021-10-11] MEDS: CISATRACURIUM 200 MG in SODIUM CHLORIDE 0.9% 180 ML IV SCH ×3 (00:46→22:33)
[2021-10-11] MEDS: CLEVIDIPINE BUTYRATE 25 MG in EMPTY BAG 1 BAG IV SCH ×5 (02:11→22:44)
[2021-10-11] MEDS: SODIUM CHLORIDE 0.9% 1,000 ML IV SCH ×2 (02:12→22:52)
[2021-10-11] MEDS: NOREPINEPHRINE 4 MG in SODIUM CHLORIDE 0.9% 250 ML IV SCH (04:32)
[2021-10-11 04:38] LABS: Anisocytosis Slight; Basophils # (A) 0.1 k/uL (0-0.2); Basophils % (A) 0 %; Eosinophils # (A) 0.3 k/uL (0-0.7); Eosinophils % (A) 2 %; HCT 34.5 % (34.0-46.0); HGB 10.6 gm/dL (11.4-16.0); Hypochromasia Moderate; Lymphocytes # (A) 1.8 k/uL (1.0-4.8); Lymphocytes % (A) 11 %; MCHC 30.7 g/dL (31.0-37.0); MCV 91.1 fL (80.0-100.0); Mean Platelet Volume 7.7; Monocytes % (A) 6 %; Neutrophils % (A) 79 %; Platelet Count 248 k/uL (150-450); RBC 3.79 m/uL (3.80-5.40); WBC 16.5 k/uL (3.8-10.6)
[2021-10-11 04:57] LABS: African American GFR (CKD) >90 (>60 ml/min/1.73 sqM); Anion Gap 1 mmol/L; Blood Urea Nitrogen 32 mg/dL (7-17); Calcium 8.4 mg/dL (8.4-10.2); Carbon Dioxide 36 mmol/L (22-30); Chloride 99 mmol/L (98-107); Glucose 115 mg/dL (74-99); Non-African American GFR(CKD) >90 (>60 ml/min/1.73 sqM); Potassium 3.6 mmol/L (3.5-5.1); Sodium 136 mmol/L (137-145)
[2021-10-11 05:30] LABS: Glucose,Whole Blood 111 mg/dL (75-99)
[2021-10-11] MEDS: INSULIN ASPART (NovoLOG) 100 UNIT/ML VIAL SQ SCH ×4 (05:31→23:55)
[2021-10-11 05:41] LABS: ABG Base Excess 12.9 mmol/L; ABG HCO3 37 mmol/L (21-25); ABG Oxygen Saturation 92.4 % (94-97); ABG PCO2 51 mmHg (35-45); ABG PH 7.47 (7.35-7.45); ABG PO2 62 mmHg (83-108); ABG TCO2 38 mmol/L (19-24); Allen Test Performed? Yes
[2021-10-11] MEDS ORDERED: POTASSIUM BICARBONATE/CIT AC 20 MEQ TABLET.EFF NG-TUBE SCH (06:00)
--- NOTE | 2021-10-11 06:29 | XR ---
"EXAMINATION TYPE: XR chest 1V portable DATE OF EXAM: 10/11/2021 CLINICAL HISTORY: Difficulty breathing progress study. TECHNIQUE: Single AP portable semiupright view of the chest is obtained. COMPARISON: Chest x-ray from one day earlier and older studies. FINDINGS: Stable endotracheal and orogastric tubes. Stable left-sided subclavian central venous cath eter. Persistent bilateral multifocal and confluent increased opacities. New Lateral left-sided pneumothorax estimated 10-20%. No new mediastinal shift. Cardiac silhouette size i s stable and upper limits of normal. Persistent overlying subcutaneous emphysema is present. Pneumome diastinum is redemonstrated. Osseous structures are intact. IMPRESSION: New left-sided pneumothorax estimated 10-20%. Overlying subcutaneous emphysema and pneumo mediastinum redemonstrated. Bilateral Multifocal and confluent opacities redemonstrated consistent wi th covid-19 infection and/or ARDS are redemonstrated. No significant change from one day earlier. Case discussed with patient's ICU nurse via telephone at time of dictation. A Document Only message has been documented for Jose Manuel Ramirez in the [employer] | Critical Result s ystem on 10/11/2021 6:26 AM, Message ID [id number]."
--- NOTE | 2021-10-11 07:33 | P.PN ---
Subjective Progress Note Date: 10/11/21 Principal diagnosis: Cardiac arrhythmia/COVID-19 pneumonia The patient is a 62-year-old female patient who was admitted to the intensive care unit with COVID-19 pneumonia and subsequently she developed acute hypoxic respiratory failure requiring intubation and mechanical ventilation. The infection was complicated by deep venous thrombosis. We consulted to see the patient mainly because of cardiac arrhythmia mainly in the term of ventricular arrhythmia. Subsequently the patient was started on lidocaine. Currently she is off lidocaine. She has been maintaining normal sinus rhythm without any more evidence of ventricular arrhythmia. An echocardiogram was attempted but was technically very difficult. She remains hemodynamically stable with a chest x-ray was reviewed today and continues to show signs of pneumonia along with left sided pneumothorax. Objective - Vital Signs Vital signs: Vital Signs Temp 97.9 F 10/11/21 04:00 Pulse 62 10/11/21 07:00 Resp 30 H 10/11/21 07:00 BP 119/62 10/11/21 07:00 Pulse Ox 100 10/11/21 07:00 Intake & Output 10/10/21 10/11/21 10/11/21 18:59 06:59 18:59 Intake Total 2507.171 8986.834 Output Total 1735 725 Balance -323.316 484.834 Weight 94 kg Intake: IV 213 479 .9 180 440 pressure bag 33 39 Intake, IV Titration 968.684 560.834 Amount Cefepime 2 gm In Sodium 100 Chloride 0.9% 100 ml @ 25 mls/hr IVPB Q8HR [facility] Rx# :[id number] Cisatracurium 200 mg In 200 124.356 Sodium Chloride 0.9% 180 ml @ 1 MCG/KG/MIN 5.16 mls/hr IV .Q24H [facility] Rx#: [id number] Clevidipine Butyrate 25 120.300 169.233 mg In Empty Bag 1 bag @ 1 MG/HR 2 mls/hr IV .Q24H [facility] Rx#:[id number] fentaNYL (PF) 2,500 mcg 250 In Sodium Chloride 0.9% 200 ml @ 0.5 MCG/KG/HR 4. 6 mls/hr IV .Q24H [facility] Rx# :[id number] propofoL 1,000 mg In 298.384 267.245 Empty Bag 1 bag @ Titrate IV .Q0M [facility] Rx#: [id number] Tube Feeding 170 110 Other 60 60 Output: Urine 1735 725 Other: Voiding Method Indwelling Catheter Indwelling Catheter # Bowel Movements 1 ABP, PAP, CO, CI - Last Documented Arterial Blood Pressure 142/57 - Constitutional General appearance: Present: no acute distress - Labs CBC & Chem 7: 10/11/21 04:05 10/11/21 04:05 Labs: Abnormal Lab Results - Last 24 Hours (Table) 10/10/21 10/10/21 10/10/21 Range/Units 11:40 18:03 23:41 WBC (3.8-10.6) k/uL RBC (3.80-5.40) m/uL Hgb (11.4-16.0) gm/dL MCHC (31.0-37.0) g/dL RDW (11.5-15.5) % Neutrophils # (1.3-7.7) k/uL ABG pH (7.35-7.45) ABG pCO2 (35-45) mmHg ABG pO2 (83-108) mmHg ABG HCO3 (21-25) mmol/L ABG Total CO2 (19-24) mmol/L ABG O2 Saturation (94-97) % Sodium (137-145) mmol/L Carbon Dioxide (22-30) mmol/L BUN (7-17) mg/dL Glucose (74-99) mg/dL POC Glucose (mg/dL) 166 H 149 H 125 H (75-99) mg/dL 10/11/21 10/11/21 10/11/21 Range/Units 04:05 04:05 05:28 WBC 16.5 H (3.8-10.6) k/uL RBC 3.79 L (3.80-5.40) m/uL Hgb 10.6 L (11.4-16.0) gm/dL MCHC 30.7 L (31.0-37.0) g/dL RDW 18.0 H (11.5-15.5) % Neutrophils # 13.0 H (1.3-7.7) k/uL ABG pH (7.35-7.45) ABG pCO2 (35-45) mmHg ABG pO2 (83-108) mmHg ABG HCO3 (21-25) mmol/L ABG Total CO2 (19-24) mmol/L ABG O2 Saturation (94-97) % Sodium 136 L (137-145) mmol/L Carbon Dioxide 36 H (22-30) mmol/L BUN 32 H (7-17) mg/dL Glucose 115 H (74-99) mg/dL POC Glucose (mg/dL) 111 H (75-99) mg/dL 10/11/21 Range/Units 05:37 WBC (3.8-10.6) k/uL RBC (3.80-5.40) m/uL Hgb (11.4-16.0) gm/dL MCHC (31.0-37.0) g/dL RDW (11.5-15.5) % Neutrophils # (1.3-7.7) k/uL ABG pH 7.47 H (7.35-7.45) ABG pCO2 51 H (35-45) mmHg ABG pO2 62 L (83-108) mmHg ABG HCO3 37 H (21-25) mmol/L ABG Total CO2 38 H (19-24) mmol/L ABG O2 Saturation 92.4 L (94-97) % Sodium (137-145) mmol/L Carbon Dioxide (22-30) mmol/L BUN (7-17) mg/dL Glucose (74-99) mg/dL POC Glucose (mg/dL) (75-99) mg/dL Assessment and Plan Assessment: Assessment #1 COVID-19 pneumonia #2 acute hypoxic respiratory failure #3 acute deep venous thrombosis #4 subcutaneous emphysema #5 ventricular arrhythmia in the term of nonsustained VT which has resolved Plan #1 the patient has been stable from the arrhythmia standpoint overview #2 continue the current medical regimen #3 continue supportive care #4 continue monitoring the electrolytes especially potassium and magnesium #5 follow-up with the patient
[2021-10-11] MEDS: ARTIFICIAL TEARS-HYPROMELLOSE DROPS 15 ML BTL BOTH EYES SCH ×4 (08:03→20:55)
[2021-10-11] MEDS: ZINC SULFATE 220 MG CAP PO SCH (08:04)
[2021-10-11] MEDS: ASCORBIC ACID 500 MG TAB PO SCH ×2 (08:04→20:54)
[2021-10-11] MEDS: CEFEPIME 2 GM in SODIUM CHLORIDE 0.9% 100 ML IVPB SCH ×3 (08:04→23:56)
[2021-10-11] MEDS: APIXABAN 5 MG TAB PO SCH (08:04)
[2021-10-11] MEDS: PANTOPRAZOLE 40 MG/10 ML VIAL IV SCH (08:04)
[2021-10-11] MEDS: FUROSEMIDE 10 MG/ML 4 ML VIAL IV SCH (08:04)
[2021-10-11] MEDS: dexAMETHasone 2 MG TAB PO SCH (08:04)
[2021-10-11] MEDS: CHLORHEXIDINE GLUCONATE 15 ML CUP MUCOUS MEM SCH ×2 (08:05→20:54)
--- NOTE | 2021-10-11 09:57 | PCN ---
PROCEDURE NOTE PROCEDURE: Placement of left chest tube. PREOPERATIVE DIAGNOSIS: Left pneumothorax. POSTOPERATIVE DIAGNOSIS: Left pneumothorax. OPERATORS: 1. Dr. Pope. 2. Dr. Granado. PROCEDURE DESCRIPTION: We used a 28-Samoan chest tube. The area was prepped in the usual way. A small incision was made between the anterior and mid axillary line at the level of the fifth intercostal space. A blunt dissection was used to puncture into the pleural space. There was a whoosh of air. The 28 Samoan chest tube was placed. There was no immediate complication. The chest tube was sutured into place. A sterile dressing was applied. The patient tolerated the procedure well. A chest x-ray will be ordered to check placement.The chest x-ray showed excellent placement of the chest tube. MMMAKL / RICHIEN: [id number] / MTDD
--- NOTE | 2021-10-11 10:33 | PCN ---
PROCEDURE NOTE PULMONARY/CRITICAL CARE PROCEDURE NOTE: Placement of left radial arterial line. PREOPERATIVE DIAGNOSIS: Multiple blood draws and also blood gases. POSTOPERATIVE DIAGNOSIS: Multiple blood gases and respiratory failure. OPERATORS: 1. Dr. Pope. 2. Dr. Granado. PROCEDURE DESCRIPTION: A time-out was completed verifying correct patient, procedure, site, positioning, and implant(s) or special equipment if applicable. Silvino's test was performed to ensure adequate perfusion. The patient's left wrist was prepped and draped in sterile fashion. 1% Lidocaine was used to anesthetize the area. An 18G Arrow arterial line was introduced into the left radial artery. The catheter was threaded over the guide wire and the needle was removed with appropriate pulsatile blood return. There was good blood return and waveform. Blood loss was minimal. The catheter was then sutured in place to the skin and a sterile dressing applied by the nurse. Perfusion to the extremity distal to the point of catheter insertion was checked and found to be adequate. The patient tolerated the procedure well and there were no immediate complications. MMODL / IJN: [id number] /
--- NOTE | 2021-10-11 10:51 | XR ---
EXAMINATION TYPE: XR chest 1V portable DATE OF EXAM: 10/11/2021 CLINICAL HISTORY: Pneumothorax status post chest tube insertion. TECHNIQUE: Single AP portable semiupright view of the chest is obtained. COMPARISON: Chest x-ray from earlier today and older studies FINDINGS: Stable endotracheal and orogastric tubes. Stable left-sided subclavian central venous cath eter. New left-sided chest tube with resolution of the small left-sided pneumothorax. Persistent bilateral multifocal and confluent increased opacities. Cardiac silhouette size is stable and upper limits of normal. Persistent overlying subcutaneous emphysema and pneumomediastinum are re demonstrated. Osseous structures are intact. IMPRESSION: New left-sided chest tube with resolution of prior visualized small left-sided pneumothor ax.
--- NOTE | 2021-10-11 11:33 | P.PN ---
<Alden Hallmanee - Last Filed: 10/11/21 11:19> Subjective Progress Note Date: 10/11/21 CHIEF COMPLAINT: Shortness of breath, COVID-19 infection HISTORY OF PRESENT ILLNESS: A 61-year-old female who is admitted to the ICU and was intubated on 09/25/2021 from complications related to COVID-19 pneumonia and acute respiratory distress syndrome. Patient has remained mechanically ventilated and sedated. Repeat chest x-ray showed left sided pneumothorax 10- 20%. Subcutaneous emphysema and pneumomediastinum redemonstrated. This morning she underwent placement of a left chest tube. FiO2 80%, PEEP 16. Eliquis was held this morning. PHYSICAL EXAM: VITAL SIGNS: Reviewed. GENERAL: Sedated on mechanical ventilation. HEENT: No sclera icterus. Head is atraumatic, normocephalic. Facial and neck and chest swelling. CHEST: Left chest tube in place. ABDOMEN: Soft. Nondistended. Nontender. NEUROLOGIC: Sedated and intubated. ASSESSMENT: 1. Acute hypoxic respiratory failure secondary to COVID-19 pneumonia and complicated with ARDS currently intubated and on enteral nutrition 2. Requiring tracheostomy and gastrostomy tube secondary to above 3. Left lower extremity DVT currently on Eliquis, now on hold PLAN: 1. Continue symptomatic and supportive care 2. Hold Eliquis 3. NPO after midnight (hold enteral feedings) 4. Plan for PEG tube and tracheostomy placement tomorrow The impression and plan of care has been dictated as directed. I performed a history and examination of this patient, discussed the same with the dictator. I agree with the dictator's note ,documented as a scribe. Any additional findings or plans will be noted. Objective - Vital Signs Vital signs: Vital Signs Temp 98.1 F 10/11/21 08:00 Pulse 72 10/11/21 11:00 Resp 30 H 10/11/21 11:00 BP 98/58 10/11/21 09:00 Pulse Ox 94 L 10/11/21 11:00 Intake & Output 10/10/21 10/11/21 10/11/21 18:59 06:59 18:59 Intake Total 8381.894 7580.834 358.216 Output Total 4296 963 0761 Balance -323.316 484.834 -671.784 Weight 94 kg Intake: IV 213 479 192 .9 180 440 80 Cefepime 2 gm In Sodium 100 Chloride 0.9% 100 ml @ 25 mls/hr IVPB Q8HR [facility] Rx# :[id number] pressure bag 33 39 12 Intake, IV Titration 968.684 560.834 96.216 Amount Cefepime 2 gm In Sodium 100 Chloride 0.9% 100 ml @ 25 mls/hr IVPB Q8HR [facility] Rx# :[id number] Cisatracurium 200 mg In 200 124.356 Sodium Chloride 0.9% 180 ml @ 1 MCG/KG/MIN 5.16 mls/hr IV .Q24H [facility] Rx#: [id number] Clevidipine Butyrate 25 120.300 169.233 mg In Empty Bag 1 bag @ 1 MG/HR 2 mls/hr IV .Q24H [facility] Rx#:[id number] fentaNYL (PF) 2,500 mcg 250 In Sodium Chloride 0.9% 200 ml @ 0.5 MCG/KG/HR 4. 6 mls/hr IV .Q24H [facility] Rx# :[id number] propofoL 1,000 mg In 298.384 267.245 96.216 Empty Bag 1 bag @ Titrate IV .Q0M [facility] Rx#: [id number] Tube Feeding 170 110 40 Other 60 60 30 Output: Urine 3520 305 4817 Other: Voiding Method Indwelling Catheter Indwelling Catheter Indwelling Catheter # Bowel Movements 1 ABP, PAP, CO, CI - Last Documented Arterial Blood Pressure 157/81 - Labs CBC & Chem 7: 10/11/21 04:05 10/11/21 04:05 Labs: Abnormal Lab Results - Last 24 Hours (Table) 10/10/21 10/10/21 10/10/21 Range/Units 11:40 18:03 23:41 WBC (3.8-10.6) k/uL RBC (3.80-5.40) m/uL Hgb (11.4-16.0) gm/dL MCHC (31.0-37.0) g/dL RDW (11.5-15.5) % Neutrophils # (1.3-7.7) k/uL ABG pH (7.35-7.45) ABG pCO2 (35-45) mmHg ABG pO2 (83-108) mmHg ABG HCO3 (21-25) mmol/L ABG Total CO2 (19-24) mmol/L ABG O2 Saturation (94-97) % Sodium (137-145) mmol/L Carbon Dioxide (22-30) mmol/L BUN (7-17) mg/dL Glucose (74-99) mg/dL POC Glucose (mg/dL) 166 H 149 H 125 H (75-99) mg/dL 10/11/21 10/11/21 10/11/21 Range/Units 04:05 04:05 05:28 WBC 16.5 H (3.8-10.6) k/uL RBC 3.79 L (3.80-5.40) m/uL Hgb 10.6 L (11.4-16.0) gm/dL MCHC 30.7 L (31.0-37.0) g/dL RDW 18.0 H (11.5-15.5) % Neutrophils # 13.0 H (1.3-7.7) k/uL ABG pH (7.35-7.45) ABG pCO2 (35-45) mmHg ABG pO2 (83-108) mmHg ABG HCO3 (21-25) mmol/L ABG Total CO2 (19-24) mmol/L ABG O2 Saturation (94-97) % Sodium 136 L (137-145) mmol/L Carbon Dioxide 36 H (22-30) mmol/L BUN 32 H (7-17) mg/dL Glucose 115 H (74-99) mg/dL POC Glucose (mg/dL) 111 H (75-99) mg/dL 10/11/21 Range/Units 05:37 WBC (3.8-10.6) k/uL RBC (3.80-5.40) m/uL Hgb (11.4-16.0) gm/dL MCHC (31.0-37.0) g/dL RDW (11.5-15.5) % Neutrophils # (1.3-7.7) k/uL ABG pH 7.47 H (7.35-7.45) ABG pCO2 51 H (35-45) mmHg ABG pO2 62 L (83-108) mmHg ABG HCO3 37 H (21-25) mmol/L ABG Total CO2 38 H (19-24) mmol/L ABG O2 Saturation 92.4 L (94-97) % Sodium (137-145) mmol/L Carbon Dioxide (22-30) mmol/L BUN (7-17) mg/dL Glucose (74-99) mg/dL POC Glucose (mg/dL) (75-99) mg/dL <[email or web address] - Last Filed: 10/11/21 17:59> Subjective As above. Patient had chest tube placed today for a larger pneumothorax. Hopefully this will help with the patient's respiratory status and subcutaneous emphysema. Discuss case again with the patient's daughter. Tentatively patient placed on the schedule tomorrow for tracheostomy and PEG tube placement. Eloquis has been held. Objective - Vital Signs Vital signs: Vital Signs Temp 97.8 F 10/11/21 16:00 Pulse 78 10/11/21 17:00 Resp 30 H 10/11/21 17:00 BP 121/53 10/11/21 17:00 Pulse Ox 90 L 10/11/21 17:00 Intake & Output 10/10/21 10/11/21 10/11/21 18:59 06:59 18:59 Intake Total 1659.346 1383.834 1328.900 Output Total 3006 876 0874 Balance -323.316 484.834 -1301.100 Weight 94 kg 94 kg Intake: IV 213 479 457 .9 180 440 180 Cefepime 2 gm In Sodium 200 Chloride 0.9% 100 ml @ 25 mls/hr IVPB Q8HR [facility] Rx# :[id number] Fluconazole in NaCl,Iso- 50 Osm 100 mg In Saline 1 50ml.bag @ 50 mls/hr IVPB DAILY@1200 [facility] Rx#: [id number] pressure bag 33 39 27 Intake, IV Titration 968.684 560.834 731.900 Amount Cefepime 2 gm In Sodium 100 Chloride 0.9% 100 ml @ 25 mls/hr IVPB Q8HR [facility] Rx# :[id number] Cisatracurium 200 mg In 200 124.356 172.516 Sodium Chloride 0.9% 180 ml @ 1 MCG/KG/MIN 5.16 mls/hr IV .Q24H [facility] Rx#: [id number] Clevidipine Butyrate 25 120.300 169.233 80.767 mg In Empty Bag 1 bag @ 1 MG/HR 2 mls/hr IV .Q24H [facility] Rx#:[id number] fentaNYL (PF) 2,500 mcg 250 199.947 In Sodium Chloride 0.9% 200 ml @ 0.5 MCG/KG/HR 4. 6 mls/hr IV .Q24H [facility] Rx# :[id number] propofoL 1,000 mg In 298.384 267.245 278.670 Empty Bag 1 bag @ Titrate IV .Q0M [facility] Rx#: [id number] Tube Feeding 170 110 80 Other 60 60 60 Output: Urine 3500 487 0386 Other: Voiding Method Indwelling Catheter Indwelling Catheter Indwelling Catheter # Bowel Movements 1 ABP, PAP, CO, CI - Last Documented Arterial Blood Pressure 134/63 - Labs CBC & Chem 7: 10/11/21 14:10 10/11/21 04:05 Labs: Abnormal Lab Results - Last 24 Hours (Table) 10/10/21 10/10/21 10/11/21 Range/Units 18:03 23:41 04:05 WBC 16.5 H (3.8-10.6) k/uL RBC 3.79 L (3.80-5.40) m/uL Hgb 10.6 L (11.4-16.0) gm/dL MCHC 30.7 L (31.0-37.0) g/dL RDW 18.0 H (11.5-15.5) % Neutrophils # 13.0 H (1.3-7.7) k/uL APTT (22.0-30.0) sec ABG pH (7.35-7.45) ABG pCO2 (35-45) mmHg ABG pO2 (83-108) mmHg ABG HCO3 (21-25) mmol/L ABG Total CO2 (19-24) mmol/L ABG O2 Saturation (94-97) % Sodium (137-145) mmol/L Carbon Dioxide (22-30) mmol/L BUN (7-17) mg/dL Glucose (74-99) mg/dL POC Glucose (mg/dL) 149 H 125 H (75-99) mg/dL 10/11/21 10/11/21 10/11/21 Range/Units 04:05 05:28 05:37 WBC (3.8-10.6) k/uL RBC (3.80-5.40) m/uL Hgb (11.4-16.0) gm/dL MCHC (31.0-37.0) g/dL RDW (11.5-15.5) % Neutrophils # (1.3-7.7) k/uL APTT (22.0-30.0) sec ABG pH 7.47 H (7.35-7.45) ABG pCO2 51 H (35-45) mmHg ABG pO2 62 L (83-108) mmHg ABG HCO3 37 H (21-25) mmol/L ABG Total CO2 38 H (19-24) mmol/L ABG O2 Saturation 92.4 L (94-97) % Sodium 136 L (137-145) mmol/L Carbon Dioxide 36 H (22-30) mmol/L BUN 32 H (7-17) mg/dL Glucose 115 H (74-99) mg/dL POC Glucose (mg/dL) 111 H (75-99) mg/dL 10/11/21 10/11/21 10/11/21 Range/Units 11:42 14:10 14:10 WBC 18.0 H (3.8-10.6) k/uL RBC 3.73 L (3.80-5.40) m/uL Hgb 10.7 L (11.4-16.0) gm/dL MCHC (31.0-37.0) g/dL RDW 17.9 H (11.5-15.5) % Neutrophils # (1.3-7.7) k/uL APTT 21.8 L (22.0-30.0) sec ABG pH (7.35-7.45) ABG pCO2 (35-45) mmHg ABG pO2 (83-108) mmHg ABG HCO3 (21-25) mmol/L ABG Total CO2 (19-24) mmol/L ABG O2 Saturation (94-97) % Sodium (137-145) mmol/L Carbon Dioxide (22-30) mmol/L BUN (7-17) mg/dL Glucose (74-99) mg/dL POC Glucose (mg/dL) 164 H (75-99) mg/dL 10/11/21 Range/Units 17:45 WBC (3.8-10.6) k/uL RBC (3.80-5.40) m/uL Hgb (11.4-16.0) gm/dL MCHC (31.0-37.0) g/dL RDW (11.5-15.5) % Neutrophils # (1.3-7.7) k/uL APTT (22.0-30.0) sec ABG pH (7.35-7.45) ABG pCO2 (35-45) mmHg ABG pO2 (83-108) mmHg ABG HCO3 (21-25) mmol/L ABG Total CO2 (19-24) mmol/L ABG O2 Saturation (94-97) % Sodium (137-145) mmol/L Carbon Dioxide (22-30) mmol/L BUN (7-17) mg/dL Glucose (74-99) mg/dL POC Glucose (mg/dL) 164 H (75-99) mg/dL Assessment and Plan (1) Respiratory failure Current Visit: Yes Status: Acute Code(s): J96.90 - RESPIRATORY FAILURE, UNSP, UNSP W HYPOXIA OR HYPERCAPNIA SNOMED Code(s): 797890390
[2021-10-11 11:44] LABS: Glucose,Whole Blood 164 mg/dL (75-99)
[2021-10-11] MEDS: FLUCONAZOLE IN NACL,ISO-OSM 100 MG in SALINE 1 50ML.BAG IVPB SCH (11:46)
[2021-10-11] MEDS: LACTATED RINGERS 1,000 ML IV SCH (12:02)
--- NOTE | 2021-10-11 12:25 | P.PN ---
Subjective Progress Note Date: 10/11/21 Principal diagnosis: Hypoxemic respiratory failure. Pulmonary consult dated 09/24/2021. 61-year-old female who states that she's been having symptoms, since September 10. The symptoms included shortness of breath, cough, fatigue, muscle aches, and generally just not feeling well. The patient is on vaccinated. She tested positive for coronavirus on September 23. Currently, she is on BiPAP with settings of 16/8, at 100%. Her primary care physician is Dr. Dionte Bal. The patient takes Coumadin chronically for her factor V or Leiden factor deficiency. Initially, on room air, her saturations were in the 70s, and on a nonrebreather, only got up into the mid 80s. In addition to the primary hypercoagulable state, she has a history of DVT, fibromyalgia, pneumonia, arthritis, and degenerative disc disease. She is a lifelong nonsmoker. She is getting saline at 50 mL an hour currently. White count 12.1, with a normal hemoglobin, hematocrit, and platelet count. PTT 24.2 INR 2.5, and d-dimer was 32.13. Sodium 1:30, potassium 3.1, chlorides 106, CO2 20, anion gap 12, BUN 47, and creatinine 1.5. Lactic acid was 1.5. AST was 95 with an ALT of 60. Pro-calcitonin level was 0.52. N-terminal proBNP is 259. Chest x-ray reveals diffuse bilateral infiltrates. CT angiogram was negative for pulmonary embolism, but did show diffuse infiltrates consistent with coronavirus pneumonia. Progress note dated 09/25/2021. 62-year-old female that I saw yesterday in consultation. She's been having coronavirus symptoms since September 10. The patient sees Dr. Dionte Bal as a primary. Yesterday, she was on BiPAP, at 16/8 and 100%. She was doing okay. Today, her saturations are quite low, she is much more tachypnea, and I decided to go ahead and move her to the ICU. The patient may require intubation and mechanical ventilation before the end of the day. CT angiogram was negative for pulmonary embolism. I did speak to her daughter, and her . White count 17.1, hemoglobin 11.9, hematocrit 37.5, platelet count 390,000. PTT is 33.3 INR is 3.5. Blood gases done on 100% show pO2 of only 49, pCO2 32, and a pH is 7.42. Sodium is 142, potassium 3.7, chlorides 113, CO2 21, anion gap 8, BUN 35, with a creatinine of 1.01. Progress note dated 09/26/2021. 62-year-old female, who was admitted with a diagnosis of hypoxemic respiratory failure secondary to coronavirus associated pneumonia. She's had coronavirus symptoms since September 10. Yesterday, she was transferred down to the intensive care unit for worsening respiratory status, and required intubation and mechanical ventilation. In addition, she had a central line placed and an arterial line placed yesterday. She remains on the ventilator, she is on the volume assist control mode, rate 26, tidal volume 400, FiO2 100%, and PEEP of 15. Arterial blood gases show pO2 of 82, pCO2 46, and a pH is 7.27. The patient's getting saline at 50 mL an hour, Nimbex at 1 mcg/kg/m, propofol at 50 mcg/kg/m, and norepinephrine at 2 mcg/m. Tube feedings have yet to be started. Chest x-ray shows a properly placed endotracheal tube, and diffuse bilateral infiltrates, which are essentially unchanged. White count 14.4, hemoglobin 10.5, hematocrit 32.4, and platelet count 250,000. PTT 34.5 with an INR 3.6. Sodium 143, potassium 4, chlorides 118, CO2 22, anion gap 3, BUN 27, and creatinine 0.95. LDH is 930. C-reactive protein is 16.2. CT angiogram was negative for pulmonary embolism. Reevaluated today on 10/08/21, patient remains in the ICU, intubated, mechanically ventilated, does not seem to be doing much better today. Patient is basically about the same, remains on assist control rate of 30 tidal volume 325 FiO2 is up to 85% PEEP remains at 16. Try to increase the PEEP, however there was a significant increase in her peak airway pressure and plateau pressure. Presently her peak airway pressure is 38, and plateau pressure is 34. Patient remains on propofol at 40 mcg/kg/m Nimbex of 0.5 but granted kilo per minute fentanyl 1 mcg/kg/h clevidipine 5 mg per hour. Chest x-ray is basically about the same, continues to show bilateral infiltrates and most likely underlying ARDS. Her labs showed WBC count of 13.0 hemoglobin 10.4. Electrolytes are normal renal profile is normal. ABG showed a pO2 of 61 pCO2 57 pH of 7.47. This was on 75%, and increase her FiO2 to 80% O2 saturation seems to be marginal on the monitor. Patient is off lidocaine drip today. Reevaluated today on 10/09/21, patient remains in the ICU, intubated and mechanically ventilated. Not much of the changes noted in the last few days, remains on assist control rate of 11/18/2024 FiO2 80% and PEEP of 16. ABG remains marginal, her pO2 is 62 pCO2 56 pH of 7.42. Patient remains on Nimbex at 3 mcg/kg/m fentanyl 1 mcg/kg/h propofol 40 mcg/kg/m, she is on clevidipine for milligrams per hour, IV fluids at KVO. Her WBC count is 17.1, and hemoglobin is 11.6. Electrolytes are normal and renal profile is normal. Chest x-ray continues to show multifocalopacities. And subcutaneous emphysema. No evidence of pneumothorax. Endotracheal tube, nasogastric tube and left central line are all in proper positions. Reevaluated today on 10/10/21, patient remains in the ICU, intubated and mechanically ventilated. She is presently on assist control rate of 30 tidal volume 325 FiO2 70% PEEP of 16. Her ABG showed a pO2 of 79 pCO2 48 pH of 7.50. Chest x-ray is basically showing no change. Continues to have bilateral infiltrates. Electrolytes are normal bicarb is 37 BUN is 35 creatinine 0.69 WBC count is 15.6 hemoglobin is 10.7. Patient remains on vital HPI 10 mL per hour. She is off level Prax, and her blood pressure seems to be relatively stable. Patient remains sedated and paralyzed, she is on propofol at 50 mcg/kg/m Nimbex at 3 mcg/kg/m fentanyl 12 mcg/kg/h, she is supposed to undergo tracheostomy and PEG tube placement next week, her Eliquis was restarted, needs to be placed on hold once the decision was made whether she is undergoing tracheostomy and PEG tube tomorrow by Dr. balbuena Progress note dated 10/11/2021. 61-year-old female admitted back on September 23. She came in with a diagnosis of coronavirus associated pneumonia. She came to the intensive care unit on the eighth, and was intubated for respiratory failure on 09/25/2021. The patient remains on mechanical ventilator. The patient's on the volume assist control mode, rate 30, tidal volume 325, FiO2 90%, PEEP of 16. Blood gases show pO2 of 62, pCO2 of 51, and a pH is 7.47. The patient's getting saline at 20 mL an hour, propofol at 40 mcg/kg/m, fentanyl at 1 mcg/kg/h, Nimbex at 3 mcg/kg/m, and vital high protein at 10 mL an hour, which is goal. The patient's chest x-ray showed a left-sided pneumothorax, about 20-25%. A #28-Maori chest tube was inserted today. Also, a fresh arterial line was placed today, and the left radial artery. White count 16.5, hemoglobin 10.6, hematocrit 34.5, platelet count 2 48,000. Sodium 136, potassium 3.6, chlorides 99, CO2 36, anion gap 1, BUN 32, with a creatinine 0.7. Microbiologic studies are all negative. Chest x-ray shows a very properly placed left-sided chest tube, with complete resolution of prior left-sided pneumothorax. Objective - Vital Signs Vital signs: Vital Signs Temp 97.8 F 10/11/21 12:00 Pulse 84 10/11/21 12:00 Resp 30 H 10/11/21 12:00 BP 162/70 10/11/21 12:00 Pulse Ox 91 L 10/11/21 12:00 Intake & Output 10/10/21 10/11/21 10/11/21 18:59 06:59 18:59 Intake Total 7420.571 3285.834 666.606 Output Total 2243 303 4360 Balance -323.316 484.834 -863.394 Weight 94 kg Intake: IV 213 479 265 .9 180 440 100 Cefepime 2 gm In Sodium 100 Chloride 0.9% 100 ml @ 25 mls/hr IVPB Q8HR [facility] Rx# :[id number] Fluconazole in NaCl,Iso- 50 Osm 100 mg In Saline 1 50ml.bag @ 50 mls/hr IVPB DAILY@1200 [facility] Rx#: [id number] pressure bag 33 39 15 Intake, IV Titration 968.684 560.834 291.606 Amount Cefepime 2 gm In Sodium 100 Chloride 0.9% 100 ml @ 25 mls/hr IVPB Q8HR [facility] Rx# :[id number] Cisatracurium 200 mg In 200 124.356 172.516 Sodium Chloride 0.9% 180 ml @ 1 MCG/KG/MIN 5.16 mls/hr IV .Q24H [facility] Rx#: [id number] Clevidipine Butyrate 25 120.300 169.233 6.8 mg In Empty Bag 1 bag @ 1 MG/HR 2 mls/hr IV .Q24H [facility] Rx#:[id number] fentaNYL (PF) 2,500 mcg 250 In Sodium Chloride 0.9% 200 ml @ 0.5 MCG/KG/HR 4. 6 mls/hr IV .Q24H [facility] Rx# :[id number] propofoL 1,000 mg In 298.384 267.245 112.290 Empty Bag 1 bag @ Titrate IV .Q0M [facility] Rx#: [id number] Tube Feeding 170 110 50 Other 60 60 60 Output: Urine 6572 806 6649 Other: Voiding Method Indwelling Catheter Indwelling Catheter Indwelling Catheter # Bowel Movements 1 ABP, PAP, CO, CI - Last Documented Arterial Blood Pressure 132/71 - Exam No acute distress, sedated and paralyzed, with an orally placed endotracheal tube and nasogastric tube. Saturations are 91%. HEENT examination is grossly unremarkable. Neck supple. Full range of motion. No adenopathy thyromegaly or neck vein distention. Cardiovascular examination reveals regular rhythm rate. S1-S2 normal. No S3 or S4. No discernible murmur noted. Heart rate 84 bpm. Heart sounds are distant. Lungs reveal coarse bilateral rhonchi. Breath sounds are equal bilaterally. No wheezes. No crackles. Saturations are 93%. Abdomen soft, without bowel sounds. No masses. Extremities are intact. No cyanosis clubbing or edema. Skin is without rash or lesion. Neurologic examination cannot be assessed as the patient is currently sedated and paralyzed. - Labs CBC & Chem 7: 10/11/21 04:05 10/11/21 04:05 Labs: Abnormal Lab Results - Last 24 Hours (Table) 10/10/21 10/10/21 10/11/21 Range/Units 18:03 23:41 04:05 WBC 16.5 H (3.8-10.6) k/uL RBC 3.79 L (3.80-5.40) m/uL Hgb 10.6 L (11.4-16.0) gm/dL MCHC 30.7 L (31.0-37.0) g/dL RDW 18.0 H (11.5-15.5) % Neutrophils # 13.0 H (1.3-7.7) k/uL ABG pH (7.35-7.45) ABG pCO2 (35-45) mmHg ABG pO2 (83-108) mmHg ABG HCO3 (21-25) mmol/L ABG Total CO2 (19-24) mmol/L ABG O2 Saturation (94-97) % Sodium (137-145) mmol/L Carbon Dioxide (22-30) mmol/L BUN (7-17) mg/dL Glucose (74-99) mg/dL POC Glucose (mg/dL) 149 H 125 H (75-99) mg/dL 10/11/21 10/11/21 10/11/21 Range/Units 04:05 05:28 05:37 WBC (3.8-10.6) k/uL RBC (3.80-5.40) m/uL Hgb (11.4-16.0) gm/dL MCHC (31.0-37.0) g/dL RDW (11.5-15.5) % Neutrophils # (1.3-7.7) k/uL ABG pH 7.47 H (7.35-7.45) ABG pCO2 51 H (35-45) mmHg ABG pO2 62 L (83-108) mmHg ABG HCO3 37 H (21-25) mmol/L ABG Total CO2 38 H (19-24) mmol/L ABG O2 Saturation 92.4 L (94-97) % Sodium 136 L (137-145) mmol/L Carbon Dioxide 36 H (22-30) mmol/L BUN 32 H (7-17) mg/dL Glucose 115 H (74-99) mg/dL POC Glucose (mg/dL) 111 H (75-99) mg/dL 10/11/21 Range/Units 11:42 WBC (3.8-10.6) k/uL RBC (3.80-5.40) m/uL Hgb (11.4-16.0) gm/dL MCHC (31.0-37.0) g/dL RDW (11.5-15.5) % Neutrophils # (1.3-7.7) k/uL ABG pH (7.35-7.45) ABG pCO2 (35-45) mmHg ABG pO2 (83-108) mmHg ABG HCO3 (21-25) mmol/L ABG Total CO2 (19-24) mmol/L ABG O2 Saturation (94-97) % Sodium (137-145) mmol/L Carbon Dioxide (22-30) mmol/L BUN (7-17) mg/dL Glucose (74-99) mg/dL POC Glucose (mg/dL) 164 H (75-99) mg/dL Assessment and Plan Assessment: Acute hypoxemic respiratory failure secondary to coronavirus associated pneumonia, status post intubation, and mechanical ventilation on 09/25/2021. No evidence of pulmonary embolism on CT angiogram. Acute left-sided pneumothorax, status post chest tube placement, 10/11/2021. Extensive subcutaneous emphysema, as a complication of mechanical ventilation and coronavirus associated pneumonia. Acute deep vein thrombosis. Mild transaminitis secondary to coronavirus infection. Primary hypercoagulable state in the form of Leiden factor deficiency/factor V deficiency. Prior history of DVT. History of fibromyalgia. History of arthritis. History of degenerative disc disease. Lifelong non-tobacco user. Plan: Plan dated 09/24/2021. The patient is not a candidate for REM, and she's had symptoms for more than 7 days. Actually sees, symptoms date back to September 10. 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 The patient does qualify for Decadron. In addition, the patient should be on vitamin C, vitamin D3, and zinc. Additional recommendations and suggestions are forthcoming. Prognosis is guarded. The patient is currently on Levaquin. That may disqualify her from [facility]. Plan dated 09/25/2021. The patient's blood gases suggests worsening respiratory status, and therefore, the patient was transferred down to the intensive care unit. The patient was on saline, at 50 mL an hour. Blood gases again showed a pO2 of only 49, and a pCO2 32, with a pH is 7.42. This is on BiPAP, at 100%. I did speak to her and her about the fact that she may require intubation and mechanical ventilation, before the end of the day. She will continue on Coumadin, as well as Decadron, and vitamins. The patient was placed on Levaquin. Her pro- calcitonin level was elevated. This likely disqualifies her for [facility]. We will continue to follow and make recommendations where appropriate. Prognosis is certainly guarded. Plan dated 09/26/2021. The patient was intubated and mechanically ventilated yesterday. A right radial art line was placed as was a left-sided triple-lumen catheter. The patient's currently sedated and paralyzed. Tube feedings will start today. She did get fluid resuscitation yesterday. She remains on a small dose of norepinephrine. The patient will have labs ordered for the morning including a CBC, basic metabolic profile, and blood gas. The patient remains on Coumadin. In addition, the patient will have a chest x-ray ordered for the morning. Tube feedings will be started today. Prognosis is guarded. We will continue to follow and make recommendations where appropriate. Prognosis is certainly very guarded. Plan dated 10/11/2021. Labs, x-rays, and medications are reviewed. A left-sided chest tube was placed by our team today. In addition, surgery has been consulted for possible tracheostomy and PEG tube placement. The patient remains on propofol, fentanyl, and Nimbex. The patient is on the mechanical ventilator, on 90% FiO2 and PEEP o f 16. Additional recommendations and suggestions are forthcoming. Tube feedings are currently going to be placed on hold for possible tracheostomy and PEG tube placement. We will continue to follow and make recommendations where appropriate. Time with Patient: Greater than 30
[2021-10-11 14:21] LABS: Anisocytosis Slight; HGB 10.7 gm/dL (11.4-16.0); Hypochromasia Marked; MCH 28.6 pg (25.0-35.0); MCHC 31.5 g/dL (31.0-37.0); Mean Platelet Volume 7.7; Platelet Count 259 k/uL (150-450); RBC 3.73 m/uL (3.80-5.40); RDW 17.9 % (11.5-15.5)
[2021-10-11] MEDS ORDERED: LIDOCAINE 1% INJ 10MG/ML (20 ML MDV) ONE (14:31)
--- NOTE | 2021-10-11 14:35 | XR ---
EXAMINATION TYPE: XR chest 1V DATE OF EXAM: 10/11/2021 COMPARISON: NONE HISTORY: Pain TECHNIQUE: Single frontal view of the chest is obtained. FINDINGS: Stable endotracheal and orogastric tubes. Stable left-sided subclavian central venous cath eter. left-sided chest tube noted. Persistent bilateral multifocal and confluent increased opacities. Cardiac silhouette size is stable and upper limits of normal. Persistent overlying subcutaneous emphysema and pneumomediastinum are red emonstrated. Osseous structures are intact. IMPRESSION: 1. Severe diffuse subcutaneous emphysema cannot exclude pneumomediastinum. 2. Diffuse bilateral infiltrates are stable.
[2021-10-11 14:39] LABS: INR 0.9 (<1.2); Prothrombin Time 10.3 sec (9.0-12.0)
[2021-10-11] MEDS ORDERED: LIDOCAINE 1% INJ 10MG/ML (20 ML MDV) SQ ONE (15:00)
[2021-10-11 15:16] LABS: Partial Thromboplastin Time 21.8 sec (22.0-30.0)
--- NOTE | 2021-10-11 15:31 | XR ---
EXAMINATION TYPE: XR chest 1V confirm line [facility] DATE OF EXAM: 10/11/2021 CLINICAL HISTORY: PICC line placement. TECHNIQUE: Single AP portable semi-upright view of the chest is obtained. COMPARISON: Chest x-ray from earlier today an older studies FINDINGS: New Right-sided PICC line terminates in the SVC. Stable endotracheal and orogastric tubes. Stable left-sided subclavian central venous catheter. Stabl e left-sided chest tube . Persistent bilateral multifocal and confluent increased opacities. Cardiac silhouette size is stable and upper limits of normal. Persistent overlying subcutaneous emphysema and pneumomediastinum are re demonstrated. Osseous structures are intact. IMPRESSION: As above.
[2021-10-11] MEDS: fentaNYL (PF) 2,500 MCG in SODIUM CHLORIDE 0.9% 200 ML IV SCH ×2 (17:39→22:34)
[2021-10-11 17:46] LABS: Glucose,Whole Blood 164 mg/dL (75-99)
--- NOTE | 2021-10-11 17:54 | XR ---
EXAMINATION TYPE: XR chest 1V DATE OF EXAM: 10/11/2021 5:38 PM COMPARISON: Same day radiograph TECHNIQUE: Frontal view of the chest. CLINICAL INDICATION:Female, 61 years old with history of NG tube placement ; FINDINGS: Lungs/Pleura: Multifocal airspace opacities. A visceral pleural line is seen in the right new from pr ior. Pulmonary vascularity: Unremarkable. Heart/mediastinum: Cardiomediastinal silhouette is partially obscured due to overlying and adjacent o pacities. Musculoskeletal:No acute osseous pathology. Other findings: Subcutaneous emphysema scattered throughout the visualized thorax. Lines/Tubes: Endotracheal tube with distal tip 2.5 cm above the jahaira Interval placement of nasogastric and side-port projecting under the diaphragm. Right-sided PICC line with distal tip at the cavoatrial junction. Left central venous catheter with distal tip at the cavoatrial junction. Left thoracotomy tube is present without evidence of pneumothorax. IMPRESSION: 1. New small Right pneumothorax. 2. Interval placement of nasogastric tube with tip and side-port in appropriate position. Remainder o f the lines and tubes are in appropriate position. 3. Left thoracotomy tube without appreciable pneumothorax. 4. Similar multifocal airspace opacities. 5. Subcutaneous emphysema has been seen before.
--- NOTE | 2021-10-11 18:05 | P.PN ---
Subjective Progress Note Date: 10/11/21 This is a 61-year-old female who was recently admitted with acute COVID-19 pneumonia with acute COVID-19 bilateral interstitial pneumonia and also with transaminitis and being closely monitored. Patient remains in the ICU and currently intubated and sedated with an FiO2 of 70% and PEEP is 18. 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 Patient did have a venous Doppler study done recently which showed left leg DVT and patient is maintained on Eliquis will continue. Patient also continues on empiric antibiotics and awaiting for sputum culture finalized. Patient was started on IV cefepime and will continue. Patient is also continued on oral dexamethasone along with vitamin and zinc supplements and will continue. Patient with some mild volume overload and given a dose of IV Lasix push today. 09/29/2021 Patient is seen and evaluated this morning continues to be closely monitored in the ICU and continues to be on mechanical ventilation and sedated. FiO2 was increased at 80% with a PEEP of 18 and oxygen saturations between 87-91%. Patient developing subcutaneous emphysema in the neck and chest wall area and chest x-ray today shows bilateral multifocal and confluent opacification is redemonstrated consistent with COVID-19 infection with a new small left apical pneumothorax estimated under 5% with new pneumomediastinum and recurrent overlying subcutaneous emphysema noted. Patient is white blood count mildly elevated at 16.1 and is continued on oral dexamethasone along with oral eliquis for anticoagulation. Patient continues to be on IV cefepime and blood and sputum cultures are negative thus far. 09/30/2021 Patient is seen today continues to be closely monitored in the ICU with multiple medical consultations following. Patient continues to be mechanically intubated and sedated with continued subcutaneous emphysema noted. Chest xray shows a trace left apical pneumothorax that is minimally smaller 7mm versus 1cm previously, extensive bilateral subcutaneous emphysema persists and diffuse interstitial changes and bilateral patchy opacities persist with slight improvement in aeration in the lower lungs. Per nursing staff corbin was clogged with copious amounts of white discharge and will add diflucan and corbin catheter has been changed and draining adequately. Patient continues on IV cefepime. Patient tolerating tube feeds and will continue. 10/01/2021 Patient is seen and evaluated in follow up this morning and continues to be closely monitored. Multiple medical consultations following and patient c ontinues to be on mechanical vent and sedated. Patient continues on IV Cefepime and diflucan. Patient chest xray today shows stable extensive subcutaneous emphysema, no pneumothorax, and patchy bilateral lung infiltrates remain present. INflammatory markers trending down. 10/04/2021 Patient is seen in follow-up continues to be closely monitored in the ICU. Patient remains on mechanical vent with an FI02 of 65% and peep is 18. Weaning trials being attempted with pulmonary public relations sales marketing following closely. Patient continues with extensive subq emphysema noted on exam. 10/05/2021 Patient Is seen and evaluated this morning with continued attempts at weaning and continues on mechanical vent and intubated with pulmonary public relations sales marketing following closely. Patient remains on Eliquis which will be held as surgery Dr. Nelson was consulted for possible PEG and trach tube placement for unsuccessful attempts at weaning from ventilation and prolonged hospitalization on mechanical vent. Chest x-ray today shows recurrent tiny left apical pneumothorax estimated under 5% with worsening overlying subcutaneous emphysema and again pneumomediastinum redemonstrated with multifocal confluent opacification's redemonstrated consistent with COVID-19 infection and/or arts are redemonstrated with no significant change from one day previously. Patient continues on FiO2 of 65% and PEEP was weaned down to 14 today. IV cefepime discontinued. 10/06/2021 Patient is seen in follow-up this morning per nursing staff patient had multiple runs of ectopy an irregular heart rate and rhythms with PVCs and cardiology consulted. Patient was placed on lidocaine drip and was originally on eliquis is currently on hold for possible PEG and trach placement with general surgery following. Patient had difficulty maintaining oxygen saturations and FiO2 was increased to 100% and PEEP continues at 14. Multiple medical consultations following and patient continues on oral steroids along with vitamin and zinc supplements along with fluconazole. Patient being started on IV Lasix daily and recommend close monitoring of electrolytes and kidney functions. 10/07/2021 Patient is seen in follow-up this morning continues to be monitored closely in the ICU with multiple medical consultations following. Patient is currently on mechanical vent with an FiO2 of 80% and PEEP is 16. General surgery also following for possible PEG and trach placement and will need to discuss with surgery about when this will occur. Patient remains on fluconazole. She also continues on vitamin and zinc supplements along with oral dexamethasone, clevidipine, Nimbex, IV Lasix, fentanyl and propofol and is off norepinephrine. Chest x-ray shows stable bilateral lung infiltrates. 10/08/2021 Patient is seen this morning continues to be on mechanical vent with an FiO2 of 85% and PEEP of 16. Patient continues with extensive subcutaneous emphysema and plans are for possible PEG and trach placement although on hold until possibly next week once more stable. Patient continues on Cleviprex along with fentanyl and propofol and is receiving IV Lasix daily. Patient also continues on lidocaine drip which is currently on hold and cardiology is following closely. Anticoagulant was resumed for now again until more stable to undergo PEG and trach placement. Chest x-ray today shows persistent bilateral multifocal and confluent increased opacification is with persistent overlying subcutaneous emphysema noted in pneumomediastinum is again redemonstrated. 10/09/2021 Patient evaluated today in ICU mechanical ventilation with FiO2 of 80%. Chest x-ray this morning shows similar multifocal airspace opacities and stable support lines and tubes. Similar subcutaneous emphysema scattered throughout the visualized thorax. PEG and trach plan for next week once more stable. Current meds include Cleviprex, Nimbex, fentanyl, propofol. She is receiving IV fluconazole, as well as IV Lasix. Levophed and Lidocaine gtt;s are on hold. Positive bowel sounds. Current vitals afebrile, heart rate 71, blood pressure 135/60 and oxygen saturation is 93%. Respirations 30. Labs today, white count 17, hemoglobin 11.6, sodium 139, potassium 3.8, BUN 34, creatinine 0.91, CO2 33, calcium 8.7, ALT 54, albumin 2.8 with blood sugars in the 100s. 10/10/2021 Patient evaluated today in the ICU on the mechanical VENT with fio2 of 100%. Positive bowel movement today, Stage 2 pressure ulcer on coccyx per RN, optifoam ordered. Per RN they were unable to patient as she was desaturating. They're unable to wean Fi02 currently as she does desaturate with any time of movement. She was lying more on her right side during evaluation and pulse ox was dropping into high 80s she was being repositioned by nurses. Plan is to PEG/TRACH patient tomorrow. Last family update was 4 days ago. We will call and discuss case today. Patient is afebrile, heart rate 84, respirations 30, blood pressure 141/55, 92% oxygen saturation on 100% Fi02, which was increased today up from 70 Fi02%. Labs today show WBC of 15.6, hgbl 10.7, sodium 138, potassium 3.9, chloride 100, CO2 37, glucose 117, calcium 8.2. Chest xray today shows pneumonia, ARDS. 10/11/2021 Patient is seen and evaluated in follow-up this morning continues to be closely monitored in the ICU and patient is continued on FiO2 of 90% and PEEP is 16 with multiple medical consultations following. Chest x-ray today shows new left- sided pneumothorax estimated 10-20% with overlying subcutaneous emphysema and pneumomediastinum redemonstrated with bilateral multifocal and confluent op acification's redemonstrated consistent with COVID-19 infection and/or arts and no significant change from one day previous. Patient is status post left chest tube insertion with pulmonary public relations sales marketing. Cardiology following and patient is off lidocaine drip and maintaining sinus rhythm. Patient also continues on vitamin and zinc supplements along with oral dexamethasone and patient continues on IV Lasix 40 mg daily. Patient also continues off norepinephrine and is currently maintained on IV cefepime along with fluconazole. General surgery following as well and plan is for peg and trach placement in the am Review of systems: Unable to obtain as patient is mechanically intubated and sedated Labs: WBC is 18.0, hemoglobin is 10.7, platelets are 259, sodium is 136, potassium 3.6, BUN 32, creatinine 0.70 Active Medications Artificial Tears (Artificial Tears-Hypromellose Drops 15 Ml Btl) 2 drops BOTH EYES QID [facility] Last Admin: 10/11/21 08:03 Dose: 2 drops Documented by: Ascorbic Acid (Ascorbic Acid 500 Mg Tab) 500 mg PO BID [facility] Last Admin: 10/11/21 08:04 Dose: 500 mg Documented by: Chlorhexidine Gluconate (Chlorhexidine Gluconate 15 Ml Cup) 15 ml MUCOUS MEM BID [facility] Last Admin: 10/11/21 08:05 Dose: 15 ml Documented by: Dexamethasone (Dexamethasone 2 Mg Tab) 6 mg PO DAILY [facility] Last Admin: 10/11/21 08:04 Dose: 6 mg Documented by: Docusate Sodium (Docusate Oral Soln 100 Mg/10 Ml Cup) 100 mg PO DAILY PRN PRN Reason: Constipation Last Admin: 10/05/21 16:57 Dose: 100 mg Documented by: Ergocalciferol (Ergocalciferol 1,250 Mcg (50,000 Iu) Capsule) 1,250 mcg PO MORRIS [facility] Last Admin: 10/10/21 08:06 Dose: 1,250 mcg Documented by: Furosemide (Furosemide 10 Mg/Ml 4 Ml Vial) 40 mg IV DAILY [facility] Last Admin: 10/11/21 08:04 Dose: 40 mg Documented by: Propofol 1,000 mg/ IV Solution 100 mls @ 0 mls/hr IV .Q0M [facility]; Protocol Last Titration: 10/11/21 05:42 Dose: 40 mcg/kg/min, 22.56 mls/hr Documented by: Cisatracurium Besylate 200 mg/ (Sodium Chloride) 200 mls @ 5.16 mls/hr IV .Q24H [facility]; Protocol Last Admin: 10/11/21 00:46 Dose: 3 mcg/kg/min, 15.48 mls/hr Documented by: Sodium Chloride (Saline 0.9%) 1,000 mls @ 20 mls/hr IV .Q24H [facility] Last Admin: 10/11/21 02:12 Dose: 20 mls/hr Documented by: Fentanyl Citrate 2,500 mcg/ (Sodium Chloride) 250 mls @ 4.6 mls/hr IV .Q24H [facility]; Protocol Last Admin: 10/10/21 19:55 Dose: 1 mcg/kg/hr, 9.2 mls/hr Documented by: Fluconazole/Sodium Chloride (100 mg/ IV Solution) 50 mls @ 50 mls/hr IVPB DAILY@1200 [facility] Last Admin: 10/10/21 12:33 Dose: 50 mls/hr Documented by: Clevidipine 25 mg/ IV Solution 50 mls @ 2 mls/hr IV .Q24H [facility]; Protocol Last Titration: 10/11/21 05:02 Dose: 2 mg/hr, 4 mls/hr Documented by: Lidocaine HCl/Dextrose 2,000 (mg/ IV Solution) 250 mls @ 7.5 mls/hr IV .Q24H [facility] Last Admin: 10/10/21 23:42 Dose: Not Given Documented by: Norepinephrine Bitartrate 4 mg (/ Sodium Chloride) 254 mls @ 18.44 mls/hr IV .[id number] [facility]; Protocol Last Admin: 10/11/21 04:32 Dose: Not Given Documented by: Cefepime HCl 2 gm/ Sodium (Chloride) 100 mls @ 25 mls/hr IVPB Q8HR [facility] Last Admin: 10/11/21 08:04 Dose: 25 mls/hr Documented by: Insulin Aspart (Insulin Aspart (Novolog) 100 Unit/Ml Vial) 0 unit SQ Q6HR [facility]; Protocol Last Admin: 10/11/21 05:31 Dose: Not Given Documented by: Miscellaneous Information (Pneumonia Protocol Utilized 1 Each [facility] [place]) 1 each PO ONCE PRN PRN Reason: Per Protocol Miscellaneous Information (Potassium Replacement Protocol 1 Each [facility] [place]) 1 each MISCELLANE DAILY PRN; Protocol PRN Reason: Per Protocol Naloxone HCl (Naloxone 0.4 Mg/Ml 1 Ml Vial) 0.2 mg IV Q2M PRN PRN Reason: Opioid Reversal Non-Formulary Medication (Pharmacy To Dose 1 Each [facility] [place]) 1 each MISCELLANE DIRECTED PRN PRN Reason: See Comments Pantoprazole Sodium (Pantoprazole 40 Mg/10 Ml Vial) 40 mg IV DAILY [facility] Last Admin: 10/11/21 08:04 Dose: 40 mg Documented by: Zinc Sulfate (Zinc Sulfate 220 Mg Cap) 220 mg PO DAILY [facility] Last Admin: 10/11/21 08:04 Dose: 220 mg Documented by: Physical Exam: Gen: This is a 61-year-old female currently sedated and intubated. mechanical ventilation Fio2 90% with a PEEP of 16 HEENT: Head is atraumatic, normocephalic. Pupils equal, round. Sclerae is anicteric. NECK: Supple. No JVD. No lymphadenopathy. No thyromegaly. subcutaneous emphysema noted in the neck and chest wall area bilaterally extensive. LUNGS: Diminished breath sounds bilaterally with coarse rhonchi and crackles noted. Left more diminished than right. No intercostal retractions. HEART: S1, S2 are muffled ABDOMEN: Soft. Bowel sounds are present. No masses. No tenderness. EXTREMITIES: No pedal edema. No calf tenderness. Bilateral upper extremity edema noted NEUROLOGICAL: Patient is currently intubated and sedated Assessment: Acute COVID-19 infection with acute COVID-19 bilateral interstitial pneumonia with hypoxic hypercarbic respiratory failure on mechanical vent Subcutaneous emphysema of the neck and chest with a left pneumothorax 10-15% Left pneumothorax status post chest tube placement Non-sustained ventricular tachycardia, currently sinus Acute left leg deep vein thrombosis Acute respiratory acidosis Primary hypercoagulable state and factor V week deficiency candidiasis secondary to prolonged indwelling Corbin catheter Mild transaminitis, possibly secondary to COVID-19 History of DVT History of degenerative joint disease History of fibromyalgia Acute respiratory acidosis Increased white blood count anemia, of undetermined etiology Elevated inflammatory markers of COVID-19 Obesity with a body mass index of 38.1 Full code Plan: Recommend to continue with current medications and follow along closely with multiple medical consultations. Prognosis remains guarded with multiple complex medical issues noted. Patient continues on mechanical ventilation and FiO2 90% with PEEP 16. No room for weaning attempts today. Cardiology following and anticoagulant on hold for PEG and trach placement. Patient is in sinus rhythm currently and off lidocaine. Peg and trach in the am. Recommend to continue with current medications. Chest x-ray reviewed as mentioned above and is status post chest tube placement on the left. Recommend repeat labs and continued close monitoring. Again due to multiple complex medical issues overall prognosis is extremely poor and quite guarded. Objective - Vital Signs Vital signs: Vital Signs Temp 97.9 F 10/11/21 04:00 Pulse 62 10/11/21 07:00 Resp 30 H 10/11/21 07:00 BP 119/62 10/11/21 07:00 Pulse Ox 100 10/11/21 07:00 Intake & Output 10/10/21 10/11/21 10/11/21 18:59 06:59 18:59 Intake Total 1509.466 9490.834 Output Total 1735 725 Balance -323.316 484.834 Weight 94 kg Intake: IV 213 479 .9 180 440 pressure bag 33 39 Intake, IV Titration 968.684 560.834 Amount Cefepime 2 gm In Sodium 100 Chloride 0.9% 100 ml @ 25 mls/hr IVPB Q8HR [facility] Rx# :[id number] Cisatracurium 200 mg In 200 124.356 Sodium Chloride 0.9% 180 ml @ 1 MCG/KG/MIN 5.16 mls/hr IV .Q24H [facility] Rx#: [id number] Clevidipine Butyrate 25 120.300 169.233 mg In Empty Bag 1 bag @ 1 MG/HR 2 mls/hr IV .Q24H [facility] Rx#:[id number] fentaNYL (PF) 2,500 mcg 250 In Sodium Chloride 0.9% 200 ml @ 0.5 MCG/KG/HR 4. 6 mls/hr IV .Q24H [facility] Rx# :[id number] propofoL 1,000 mg In 298.384 267.245 Empty Bag 1 bag @ Titrate IV .Q0M [facility] Rx#: [id number] Tube Feeding 170 110 Other 60 60 Output: Urine 1735 725 Other: Voiding Method Indwelling Catheter Indwelling Catheter # Bowel Movements 1 ABP, PAP, CO, CI - Last Documented Arterial Blood Pressure 142/57 - Labs CBC & Chem 7: 10/11/21 14:10 10/11/21 04:05 Labs: Abnormal Lab Results - Last 24 Hours (Table) 10/10/21 10/10/21 10/10/21 Range/Units 11:40 18:03 23:41 WBC (3.8-10.6) k/uL RBC (3.80-5.40) m/uL Hgb (11.4-16.0) gm/dL MCHC (31.0-37.0) g/dL RDW (11.5-15.5) % Neutrophils # (1.3-7.7) k/uL ABG pH (7.35-7.45) ABG pCO2 (35-45) mmHg ABG pO2 (83-108) mmHg ABG HCO3 (21-25) mmol/L ABG Total CO2 (19-24) mmol/L ABG O2 Saturation (94-97) % Sodium (137-145) mmol/L Carbon Dioxide (22-30) mmol/L BUN (7-17) mg/dL Glucose (74-99) mg/dL POC Glucose (mg/dL) 166 H 149 H 125 H (75-99) mg/dL 10/11/21 10/11/21 10/11/21 Range/Units 04:05 04:05 05:28 WBC 16.5 H (3.8-10.6) k/uL RBC 3.79 L (3.80-5.40) m/uL Hgb 10.6 L (11.4-16.0) gm/dL MCHC 30.7 L (31.0-37.0) g/dL RDW 18.0 H (11.5-15.5) % Neutrophils # 13.0 H (1.3-7.7) k/uL ABG pH (7.35-7.45) ABG pCO2 (35-45) mmHg ABG pO2 (83-108) mmHg ABG HCO3 (21-25) mmol/L ABG Total CO2 (19-24) mmol/L ABG O2 Saturation (94-97) % Sodium 136 L (137-145) mmol/L Carbon Dioxide 36 H (22-30) mmol/L BUN 32 H (7-17) mg/dL Glucose 115 H (74-99) mg/dL POC Glucose (mg/dL) 111 H (75-99) mg/dL 10/11/21 Range/Units 05:37 WBC (3.8-10.6) k/uL RBC (3.80-5.40) m/uL Hgb (11.4-16.0) gm/dL MCHC (31.0-37.0) g/dL RDW (11.5-15.5) % Neutrophils # (1.3-7.7) k/uL ABG pH 7.47 H (7.35-7.45) ABG pCO2 51 H (35-45) mmHg ABG pO2 62 L (83-108) mmHg ABG HCO3 37 H (21-25) mmol/L ABG Total CO2 38 H (19-24) mmol/L ABG O2 Saturation 92.4 L (94-97) % Sodium (137-145) mmol/L Carbon Dioxide (22-30) mmol/L BUN (7-17) mg/dL Glucose (74-99) mg/dL POC Glucose (mg/dL) (75-99) mg/dL
--- NOTE | 2021-10-11 18:57 | PCN ---
PROCEDURE NOTE PROCEDURE: Right-sided chest tube placement. PREOPERATIVE DIAGNOSIS: Right pleural effusion. POSTOPERATIVE DIAGNOSIS: Right pleural effusion. OPERATORS: 1. Dr. Pope. 2. Dr. Granado. PROCEDURE DESCRIPTION: The area where a #28 [place] tube was to be inserted was cleansed with Betadine. The area was draped. A small incision was made at the level of the fifth intercostal space, between the anterior and mid axillary line. Blunt dissection took place with forceps. There was a whoosh of air once the pleural space was entered. A #28 [place] tube was inserted in that opening. The chest tube was sutured in place. There was no immediate complication. The tube was connected to a Pleur-evac. The patient tolerated the procedure well. A sterile dressing was applied. A chest x-ray was ordered to check placement and to exclude a persistent right-sided pneumothorax. MMODL / IJN: [id number] /
--- NOTE | 2021-10-11 19:19 | XR ---
EXAMINATION TYPE: XR chest 1V portable DATE OF EXAM: 10/11/2021 6:47 PM COMPARISON:Multiple radiographs, with the most recent on same day earlier in the day. TECHNIQUE: Frontal view of the chest. CLINICAL INDICATION:Female, 61 years old with history of chest tube placement; FINDINGS: Lungs/Pleura: There is pneumothorax in the right is no longer visualized. Similar multifocal airspace opacities scattered throughout the lungs. Pulmonary vascularity: Mild pulmonary vascular congestion. Heart/mediastinum: Cardiomediastinal silhouette is unremarkable. Musculoskeletal:No acute osseous pathology. Other findings: Subcutaneous emphysema scattered throughout the visualized thorax. Lines/Tubes: Endotracheal tube with distal tip 4.2 cm above the jahaira Nasogastric tube with its distal tip and side-port projecting under the diaphragm. Right thoracotomy tube is present without evidence of pneumothorax. Left thoracotomy tube is present without evidence of pneumothorax. Right-sided PICC line with distal tip at the cavoatrial junction. Left internal jugular central venous catheter with distal tip at the cavoatrial junction. IMPRESSION: 1. Interval placement of right thoracotomy tube with no appreciable pneumothorax. 2. Other lines and tubes are in appropriate position. 3. Multifocal pneumonia.
[2021-10-11 23:47] LABS: Glucose,Whole Blood 136 mg/dL (75-99)
[2021-10-12 00:24] LABS: Anisocytosis Slight; Basophils # (A) 0.2 k/uL (0-0.2); Basophils % (A) 1 %; Eosinophils # (A) 0.1 k/uL (0-0.7); Eosinophils % (A) 0 %; HCT 31.8 % (34.0-46.0); HGB 10.1 gm/dL (11.4-16.0); Hypochromasia Moderate; Lymphocytes # (A) 1.2 k/uL (1.0-4.8); Lymphocytes % (A) 5 %; MCH 28.5 pg (25.0-35.0); MCHC 31.8 g/dL (31.0-37.0); MCV 89.7 fL (80.0-100.0); Mean Platelet Volume 9.3; Monocytes # (A) 1.6 k/uL (0-1.0); Monocytes % (A) 7 %; Neutrophils # (A) 20.3 k/uL (1.3-7.7); Neutrophils % (A) 87 %; Platelet Count 290 k/uL (150-450); RBC 3.55 m/uL (3.80-5.40); RDW 17.7 % (11.5-15.5); WBC 23.4 k/uL (3.8-10.6)
[2021-10-12 00:41] LABS: INR 0.9 (<1.2); Prothrombin Time 10.4 sec (9.0-12.0)
[2021-10-12 01:01] LABS: Partial Thromboplastin Time 21.5 sec (22.0-30.0)
[2021-10-12] MEDS ORDERED: Kcentra PER PHARMACY 1 EACH MISC MISCELLANE PRN (01:18)
[2021-10-12] MEDS ORDERED: PHYTONADIONE 10 MG in SODIUM CHLORIDE 0.9% 50 ML IVPB STA (01:18)
[2021-10-12] MEDS ORDERED: HUMAN PROTHROMBIN COMPLX IV ONE (01:30)
[2021-10-12] MEDS: CLEVIDIPINE BUTYRATE 25 MG in EMPTY BAG 1 BAG IV SCH ×4 (01:39→19:40)
[2021-10-12] MEDS ORDERED: HUMAN PROTHROMBIN COMPLX 500 UNIT/16 ML VIAL IV ONE (01:50)
[2021-10-12 06:16] LABS: ABG Base Excess 12.1 mmol/L; ABG HCO3 37 mmol/L (21-25); ABG Oxygen Saturation 95.6 % (94-97); ABG PCO2 58 mmHg (35-45); ABG PH 7.41 (7.35-7.45); ABG PO2 74 mmHg (83-108); ABG TCO2 39 mmol/L (19-24); Allen Test Performed? Yes
[2021-10-12] MEDS: CISATRACURIUM 200 MG in SODIUM CHLORIDE 0.9% 180 ML IV SCH ×2 (06:21→18:51)
[2021-10-12 06:26] LABS: Glucose,Whole Blood 129 mg/dL (75-99)
[2021-10-12] MEDS: INSULIN ASPART (NovoLOG) 100 UNIT/ML VIAL SQ SCH ×4 (06:28→23:11)
--- NOTE | 2021-10-12 07:21 | P.PN ---
Subjective Progress Note Date: 10/12/21 Principal diagnosis: Cardiac arrhythmia/COVID-19 pneumonia The patient is a 62-year-old female patient who was admitted to the intensive care unit with COVID-19 pneumonia and subsequently she developed acute hypoxic respiratory failure requiring intubation and mechanical ventilation. The infection was complicated by deep venous thrombosis. The patient was evaluated today. She has been maintaining normal sinus mechanism and no evidence of any more ventricular arrhythmia. Hemodynamically she is stable and not requiring any vasopressors. Yesterday she underwent left sided chest tube placement for pneumothorax. An echocardiogram was attempted to assess ejection fraction but that was unsuccessful because the patient [place] habit[place]. She continues to be intubated on mechanical ventilation. Objective - Vital Signs Vital signs: Vital Signs Temp 97.5 F L 10/12/21 06:17 Pulse 79 10/12/21 07:00 Resp 30 H 10/12/21 07:00 BP 109/61 10/12/21 07:00 Pulse Ox 94 L 10/12/21 07:00 Intake & Output 10/11/21 10/12/21 10/12/21 18:59 06:59 18:59 Intake Total 9923.976 7680.388 118.357 Output Total 3080 695 40 Balance -4873.380 6917.388 78.357 Weight 94 kg 94.5 kg Intake: IV 526 320 20 .9 240 220 20 Cefepime 2 gm In Sodium 200 100 Chloride 0.9% 100 ml @ 25 mls/hr IVPB Q8HR [facility] Rx# :[id number] Fluconazole in NaCl,Iso- 50 Osm 100 mg In Saline 1 50ml.bag @ 50 mls/hr IVPB DAILY@1200 [facility] Rx#: [id number] pressure bag 36 Intake, IV Titration 731.900 844.388 98.357 Amount Cisatracurium 200 mg In 172.516 360.992 Sodium Chloride 0.9% 180 ml @ 1 MCG/KG/MIN 5.16 mls/hr IV .Q24H [facility] Rx#: [id number] Clevidipine Butyrate 25 80.767 174.133 1.067 mg In Empty Bag 1 bag @ 1 MG/HR 2 mls/hr IV .Q24H [facility] Rx#:[id number] fentaNYL (PF) 2,500 mcg 199.947 45.233 In Sodium Chloride 0.9% 200 ml @ 0.5 MCG/KG/HR 4. 6 mls/hr IV .Q24H [facility] Rx# :[id number] propofoL 1,000 mg In 278.670 264.03 97.29 Empty Bag 1 bag @ Titrate IV .Q0M [facility] Rx#: [id number] Tube Feeding 110 40 Blood Product 611 Ffp 24 Cpd Unit 291 [id number] Ffp 24 Cpd Unit 320 [id number] Other 60 30 Output: Chest Tube Drainage 15 Chest Tube Right Lateral 15 Chest Urine 3080 680 40 Other: Voiding Method Indwelling Catheter Indwelling Catheter ABP, PAP, CO, CI - Last Documented Arterial Blood Pressure 103/49 - Constitutional General appearance: Present: no acute distress - Labs CBC & Chem 7: 10/12/21 00:10 10/11/21 04:05 Labs: Abnormal Lab Results - Last 24 Hours (Table) 10/11/21 10/11/21 10/11/21 Range/Units 11:42 14:10 14:10 WBC 18.0 H (3.8-10.6) k/uL RBC 3.73 L (3.80-5.40) m/uL Hgb 10.7 L (11.4-16.0) gm/dL Hct (34.0-46.0) % RDW 17.9 H (11.5-15.5) % Neutrophils # (1.3-7.7) k/uL Monocytes # (0-1.0) k/uL APTT 21.8 L (22.0-30.0) sec D-Dimer (<0.60) mg/L FEU ABG pCO2 (35-45) mmHg ABG pO2 (83-108) mmHg ABG HCO3 (21-25) mmol/L ABG Total CO2 (19-24) mmol/L POC Glucose (mg/dL) 164 H (75-99) mg/dL 10/11/21 10/11/21 10/11/21 Range/Units 17:45 23:45 23:46 WBC (3.8-10.6) k/uL RBC (3.80-5.40) m/uL Hgb (11.4-16.0) gm/dL Hct (34.0-46.0) % RDW (11.5-15.5) % Neutrophils # (1.3-7.7) k/uL Monocytes # (0-1.0) k/uL APTT 21.5 L (22.0-30.0) sec D-Dimer 1.24 H (<0.60) mg/L FEU ABG pCO2 (35-45) mmHg ABG pO2 (83-108) mmHg ABG HCO3 (21-25) mmol/L ABG Total CO2 (19-24) mmol/L POC Glucose (mg/dL) 164 H 136 H (75-99) mg/dL 10/12/21 10/12/21 10/12/21 Range/Units 00:10 06:13 06:24 WBC 23.4 H (3.8-10.6) k/uL RBC 3.55 L (3.80-5.40) m/uL Hgb 10.1 L (11.4-16.0) gm/dL Hct 31.8 L (34.0-46.0) % RDW 17.7 H (11.5-15.5) % Neutrophils # 20.3 H (1.3-7.7) k/uL Monocytes # 1.6 H (0-1.0) k/uL APTT (22.0-30.0) sec D-Dimer (<0.60) mg/L FEU ABG pCO2 58 H (35-45) mmHg ABG pO2 74 L (83-108) mmHg ABG HCO3 37 H (21-25) mmol/L ABG Total CO2 39 H (19-24) mmol/L POC Glucose (mg/dL) 129 H (75-99) mg/dL Assessment and Plan Assessment: Assessment #1 COVID-19 pneumonia #2 acute hypoxic respiratory failure #3 history of deep venous thrombosis #4 subcutaneous emphysema #5 ventricular arrhythmia in the term of nonsustained VT which has resolved Plan #1 the patient has been stable from the arrhythmia standpoint overview #2 continue the current medical regimen #3 continue supportive care #4 determine the need for anticoagulation for the DVT, acute versus chronic #5 follow-up with the patient
[2021-10-12] MEDS ORDERED: SODIUM CHLORIDE 0.9% 1,000 ML IV ONE (07:30)
[2021-10-12 07:32] LABS: Anisocytosis Slight; Basophils # (A) 0.1 k/uL (0-0.2); Basophils % (A) 0 %; Eosinophils # (A) 0.3 k/uL (0-0.7); Eosinophils % (A) 2 %; HCT 20.4 % (34.0-46.0); Hypochromasia Moderate; Lymphocytes # (A) 1.7 k/uL (1.0-4.8); Lymphocytes % (A) 10 %; MCH 28.6 pg (25.0-35.0); MCHC 31.9 g/dL (31.0-37.0); MCV 89.6 fL (80.0-100.0); Monocytes # (A) 1.1 k/uL (0-1.0); Monocytes % (A) 6 %; Neutrophils # (A) 14.1 k/uL (1.3-7.7); Neutrophils % (A) 81 %; Platelet Count 194 k/uL (150-450); RBC 2.27 m/uL (3.80-5.40); RDW 17.8 % (11.5-15.5); WBC 17.3 k/uL (3.8-10.6)
[2021-10-12] MEDS: NOREPINEPHRINE 8 MG in SODIUM CHLORIDE 0.9% 250 ML IV SCH ×2 (07:44→23:54)
[2021-10-12 07:45] LABS: HGB 6.5 gm/dL (11.4-16.0)
[2021-10-12 07:46] LABS: African American GFR (CKD) >90 (>60 ml/min/1.73 sqM); Anion Gap 1 mmol/L; Blood Urea Nitrogen 30 mg/dL (7-17); Calcium 8.2 mg/dL (8.4-10.2); Carbon Dioxide 36 mmol/L (22-30); Chloride 101 mmol/L (98-107); Glucose 125 mg/dL (74-99); Non-African American GFR(CKD) >90 (>60 ml/min/1.73 sqM); Potassium 3.6 mmol/L (3.5-5.1); Sodium 138 mmol/L (137-145)
[2021-10-12 07:57] LABS: Prothrombin Time 10.6 sec (9.0-12.0)
[2021-10-12] MEDS: CEFEPIME 2 GM in SODIUM CHLORIDE 0.9% 100 ML IVPB SCH ×3 (08:10→23:11)
[2021-10-12 08:18] LABS: Partial Thromboplastin Time 20.6 sec (22.0-30.0)
--- NOTE | 2021-10-12 08:24 | XR ---
EXAMINATION TYPE: XR chest 1V portable DATE OF EXAM: 10/12/2021 Comparison: 10/11/2021 Clinical History: 61 year-old female respiratory failure Findings: Jahaira is difficult to clearly identify on the present exam. The ET tube tip may be approximately 1 c m from the jahaira. NG tube courses below the diaphragm. Bilateral chest tubes are present. No appreci able pneumothorax. Left subclavian CVC tip at the lower SVC. Right PICC tip at the cavoatrial junctio n. Continued diffuse interstitial opacities and more focal bibasilar opacities. Subcutaneous emphysem a persists along the upper chest with slight improvement on the left. Impression: 1. Jahaira difficult to visualize on the present exam. The ET tube tip may be 1 cm from the jahaira. At tention on follow-up. It may need to be pulled back by 1 to 2 cm. 2. Bilateral chest tubes in place. No appreciable pneumothorax. 3. Continued interstitial changes and patchy left greater than right bibasilar airspace disease.
--- NOTE | 2021-10-12 09:12 | IR ---
PICC LINE PLACEMENT: HISTORY: Infection requiring long-term antibiotic therapy PROCEDURE: Ultrasound guidance of PICC line placement. COMPLICATIONS: None ANESTHESIA: 1. 1% Lidocaine locally. FINDINGS/TECHNIQUE: The procedure was explained to the patient. The risks, complications, benefits and alternatives were discussed and any questions were answered. Informed consent was obtained. The patient was placed supine on the fluoroscopic table and prepped and draped in the usual sterile fash ion. Utilizing a 21 gauge needle and sonographic guidance, access in the right basilic vein was ach ieved and there is placement of a 0.018 guidewire. The vein is patent. A 5-F. sheath was placed ove r the guidewire. The guidewire and dilator were removed and a 5-F. Double lumen PICC line was placed through the sheath with the chest x-ray confirming the tip at the level of the SVC. The sheath was removed, the catheter was flushed and sutured into position. The patient was stable throughout the p rocedure and remained stable upon discharge from the Department of Radiology. The vein puncture was patent under ultrasound. A chery scale image was obtained to document patency of the vein punctured. All elements of the maximal barrier technique were utilized. IMPRESSION: 1. Successful PICC line placement under ultrasound performed bedside within the ICU.
[2021-10-12 09:30] LABS: ALT 28 U/L (4-34); AST 19 U/L (14-36); Albumin 2.4 g/dL (3.5-5.0); Alkaline Phosphatase 50 U/L (38-126); Total Bilirubin 0.7 mg/dL (0.2-1.3); Total Protein 4.7 g/dL (6.3-8.2)
[2021-10-12] MEDS: ARTIFICIAL TEARS-HYPROMELLOSE DROPS 15 ML BTL BOTH EYES SCH ×4 (10:03→21:49)
[2021-10-12] MEDS: PANTOPRAZOLE 40 MG/10 ML VIAL IV SCH (10:06)
[2021-10-12] MEDS: CHLORHEXIDINE GLUCONATE 15 ML CUP MUCOUS MEM SCH ×2 (10:06→20:51)
[2021-10-12] MEDS: dexAMETHasone 2 MG TAB PO SCH (10:07)
[2021-10-12] MEDS: ASCORBIC ACID 500 MG TAB PO SCH ×2 (10:07→20:51)
[2021-10-12] MEDS: ZINC SULFATE 220 MG CAP PO SCH (10:08)
--- NOTE | 2021-10-12 10:15 | P.PN ---
Subjective Progress Note Date: 10/12/21 Principal diagnosis: Hypoxemic respiratory failure. Pulmonary consult dated 09/24/2021. 61-year-old female who states that she's been having symptoms, since September 10. The symptoms included shortness of breath, cough, fatigue, muscle aches, and generally just not feeling well. The patient is on vaccinated. She tested positive for coronavirus on September 23. Currently, she is on BiPAP with settings of 16/8, at 100%. Her primary care physician is Dr. Dionte Bal. The patient takes Coumadin chronically for her factor V or Leiden factor deficiency. Initially, on room air, her saturations were in the 70s, and on a nonrebreather, only got up into the mid 80s. In addition to the primary hypercoagulable state, she has a history of DVT, fibromyalgia, pneumonia, arthritis, and degenerative disc disease. She is a lifelong nonsmoker. She is getting saline at 50 mL an hour currently. White count 12.1, with a normal hemoglobin, hematocrit, and platelet count. PTT 24.2 INR 2.5, and d-dimer was 32.13. Sodium 1:30, potassium 3.1, chlorides 106, CO2 20, anion gap 12, BUN 47, and creatinine 1.5. Lactic acid was 1.5. AST was 95 with an ALT of 60. Pro-calcitonin level was 0.52. N-terminal proBNP is 259. Chest x-ray reveals diffuse bilateral infiltrates. CT angiogram was negative for pulmonary embolism, but did show diffuse infiltrates consistent with coronavirus pneumonia. Progress note dated 09/25/2021. 62-year-old female that I saw yesterday in consultation. She's been having coronavirus symptoms since September 10. The patient sees Dr. Dionte Bal as a primary. Yesterday, she was on BiPAP, at 16/8 and 100%. She was doing okay. Today, her saturations are quite low, she is much more tachypnea, and I decided to go ahead and move her to the ICU. The patient may require intubation and mechanical ventilation before the end of the day. CT angiogram was negative for pulmonary embolism. I did speak to her daughter, and her . White count 17.1, hemoglobin 11.9, hematocrit 37.5, platelet count 390,000. PTT is 33.3 INR is 3.5. Blood gases done on 100% show pO2 of only 49, pCO2 32, and a pH is 7.42. Sodium is 142, potassium 3.7, chlorides 113, CO2 21, anion gap 8, BUN 35, with a creatinine of 1.01. Progress note dated 09/26/2021. 62-year-old female, who was admitted with a diagnosis of hypoxemic respiratory failure secondary to coronavirus associated pneumonia. She's had coronavirus symptoms since September 10. Yesterday, she was transferred down to the intensive care unit for worsening respiratory status, and required intubation and mechanical ventilation. In addition, she had a central line placed and an arterial line placed yesterday. She remains on the ventilator, she is on the volume assist control mode, rate 26, tidal volume 400, FiO2 100%, and PEEP of 15. Arterial blood gases show pO2 of 82, pCO2 46, and a pH is 7.27. The patient's getting saline at 50 mL an hour, Nimbex at 1 mcg/kg/m, propofol at 50 mcg/kg/m, and norepinephrine at 2 mcg/m. Tube feedings have yet to be started. Chest x-ray shows a properly placed endotracheal tube, and diffuse bilateral infiltrates, which are essentially unchanged. White count 14.4, hemoglobin 10.5, hematocrit 32.4, and platelet count 250,000. PTT 34.5 with an INR 3.6. Sodium 143, potassium 4, chlorides 118, CO2 22, anion gap 3, BUN 27, and creatinine 0.95. LDH is 930. C-reactive protein is 16.2. CT angiogram was negative for pulmonary embolism. Reevaluated today on 10/08/21, patient remains in the ICU, intubated, mechanically ventilated, does not seem to be doing much better today. Patient is basically about the same, remains on assist control rate of 30 tidal volume 325 FiO2 is up to 85% PEEP remains at 16. Try to increase the PEEP, however there was a significant increase in her peak airway pressure and plateau pressure. Presently her peak airway pressure is 38, and plateau pressure is 34. Patient remains on propofol at 40 mcg/kg/m Nimbex of 0.5 but granted kilo per minute fentanyl 1 mcg/kg/h clevidipine 5 mg per hour. Chest x-ray is basically about the same, continues to show bilateral infiltrates and most likely underlying ARDS. Her labs showed WBC count of 13.0 hemoglobin 10.4. Electrolytes are normal renal profile is normal. ABG showed a pO2 of 61 pCO2 57 pH of 7.47. This was on 75%, and increase her FiO2 to 80% O2 saturation seems to be marginal on the monitor. Patient is off lidocaine drip today. Reevaluated today on 10/09/21, patient remains in the ICU, intubated and mechanically ventilated. Not much of the changes noted in the last few days, remains on assist control rate of 11/18/2024 FiO2 80% and PEEP of 16. ABG remains marginal, her pO2 is 62 pCO2 56 pH of 7.42. Patient remains on Nimbex at 3 mcg/kg/m fentanyl 1 mcg/kg/h propofol 40 mcg/kg/m, she is on clevidipine for milligrams per hour, IV fluids at KVO. Her WBC count is 17.1, and hemoglobin is 11.6. Electrolytes are normal and renal profile is normal. Chest x-ray continues to show multifocalopacities. And subcutaneous emphysema. No evidence of pneumothorax. Endotracheal tube, nasogastric tube and left central line are all in proper positions. Reevaluated today on 10/10/21, patient remains in the ICU, intubated and mechanically ventilated. She is presently on assist control rate of 30 tidal volume 325 FiO2 70% PEEP of 16. Her ABG showed a pO2 of 79 pCO2 48 pH of 7.50. Chest x-ray is basically showing no change. Continues to have bilateral infiltrates. Electrolytes are normal bicarb is 37 BUN is 35 creatinine 0.69 WBC count is 15.6 hemoglobin is 10.7. Patient remains on vital HPI 10 mL per hour. She is off level Prax, and her blood pressure seems to be relatively stable. Patient remains sedated and paralyzed, she is on propofol at 50 mcg/kg/m Nimbex at 3 mcg/kg/m fentanyl 12 mcg/kg/h, she is supposed to undergo tracheostomy and PEG tube placement next week, her Eliquis was restarted, needs to be placed on hold once the decision was made whether she is undergoing tracheostomy and PEG tube tomorrow by Dr. balbuena Progress note dated 10/11/2021. 61-year-old female admitted back on September 23. She came in with a diagnosis of coronavirus associated pneumonia. She came to the intensive care unit on the , and was intubated for respiratory failure on 09/25/2021. The patient remains on mechanical ventilator. The patient's on the volume assist control mode, rate 30, tidal volume 325, FiO2 90%, PEEP of 16. Blood gases show pO2 of 62, pCO2 of 51, and a pH is 7.47. The patient's getting saline at 20 mL an hour, propofol at 40 mcg/kg/m, fentanyl at 1 mcg/kg/h, Nimbex at 3 mcg/kg/m, and vital high protein at 10 mL an hour, which is goal. The patient's chest x-ray showed a left-sided pneumothorax, about 20-25%. A #28-Chinese chest tube was inserted today. Also, a fresh arterial line was placed today, and the left radial artery. White count 16.5, hemoglobin 10.6, hematocrit 34.5, platelet count 2 48,000. Sodium 136, potassium 3.6, chlorides 99, CO2 36, anion gap 1, BUN 32, with a creatinine 0.7. Microbiologic studies are all negative. Chest x-ray shows a very properly placed left-sided chest tube, with complete resolution of prior left-sided pneumothorax. Progress note dated 10/12/2021. 61-year-old female admitted back on 09/23/2021. She came in with a diagnosis of coronavirus associated pneumonia. The patient came to the intensive care unit on 09/25/2021, and was intubated on 09/25/2021 for worsening respiratory status. The patient remains on the mechanical ventilator. The patient was to have a tracheostomy and PEG tube placed today, but unfortunately, her hospital course is now been complicated by bilateral pneumothorax, requiring bilateral chest tube placements on October 11, and bleeding from the left chest tube site, since yesterday. That is despite the fact that the patient received fresh frozen plasma, vitamin K, and 4 factor prothrombin complex concentrate. Currently, the patient remains on the volume assist control, rate 30, tidal volume 325, FiO2 90%, and PEEP of 16. Blood gases show pO2 of 74, pCO2 of 58, and a pH is 7.41. The patient's on saline at KVO, propofol at 40 mics per kilogram per minute, Nimbex at 3 mcg/kg/m, fentanyl at 1 mcg/kg/h, norepinephrine at 2 mcg/m, and tube feeds are currently on hold. I did order 1 unit packed red blood cells. I told the nurse to call the physician, they canceled the anticipated surgery today. I was able to speak to the patient's , Taco, at [phone]. He was going to talk to the family about CODE STATUS, and possibly withdrawing life support. White count 17.3, hemoglobin 6.5, down from 10.1, hematocrit 20.4, and platelet count 194,000. PT 10.6 INR 1 PTT fibrinogen 326, and d-dimer is 0.92. Sodium 138, potassium 3.6, chlorides 101, CO2 36, anion gap 1, BUN 30, creatinine 0.69. Sputum is negative. Blood cultures are negative. Chest x-ray shows bilateral chest tubes, without pneumothorax, and diffuse patchy bilateral infiltrates. Objective - Vital Signs Vital signs: Vital Signs Temp 97.4 F L 10/12/21 09:11 Pulse 54 L 10/12/21 09:11 Resp 30 H 10/12/21 09:11 BP 98/50 10/12/21 09:11 Pulse Ox 100 10/12/21 09:11 Intake & Output 10/11/21 10/12/21 10/12/21 18:59 06:59 18:59 Intake Total 1225.823 7369.388 160.999 Output Total 3080 695 40 Balance -4461.915 4471.388 120.999 Weight 94 kg 94.5 kg Intake: IV 526 320 20 .9 240 220 20 Cefepime 2 gm In Sodium 200 100 Chloride 0.9% 100 ml @ 25 mls/hr IVPB Q8HR [facility] Rx# :[id number] Fluconazole in NaCl,Iso- 50 Osm 100 mg In Saline 1 50ml.bag @ 50 mls/hr IVPB DAILY@1200 [facility] Rx#: [id number] pressure bag 36 Intake, IV Titration 731.900 844.388 140.999 Amount Cisatracurium 200 mg In 172.516 360.992 16.856 Sodium Chloride 0.9% 180 ml @ 1 MCG/KG/MIN 5.16 mls/hr IV .Q24H [facility] Rx#: [id number] Clevidipine Butyrate 25 80.767 174.133 1.067 mg In Empty Bag 1 bag @ 1 MG/HR 2 mls/hr IV .Q24H [facility] Rx#:[id number] Norepinephrine 8 mg In 16.61 Sodium Chloride 0.9% 250 ml @ 0.05 MCG/KG/MIN 9. 143 mls/hr IV .Q24H [facility] Rx#:[id number] fentaNYL (PF) 2,500 mcg 199.947 45.233 In Sodium Chloride 0.9% 200 ml @ 0.5 MCG/KG/HR 4. 6 mls/hr IV .Q24H [facility] Rx# :[id number] propofoL 1,000 mg In 278.670 264.03 106.466 Empty Bag 1 bag @ Titrate IV .Q0M [facility] Rx#: [id number] Tube Feeding 110 40 Blood Product 611 0 Ffp 24 Cpd Unit 291 [id number] Ffp 24 Cpd Unit 320 [id number] Rc As-1 Unit 0 [id number] Other 60 30 Output: Chest Tube Drainage 15 Chest Tube Right Lateral 15 Chest Urine 3080 680 40 Other: Voiding Method Indwelling Catheter Indwelling Catheter ABP, PAP, CO, CI - Last Documented Arterial Blood Pressure 103/49 - Exam No acute distress, sedated and paralyzed, with an orally placed endotracheal tube and nasogastric tube. Saturations are 99 %. HEENT examination is grossly unremarkable. Neck supple. Full range of motion. No adenopathy thyromegaly or neck vein distention. Cardiovascular examination reveals regular rhythm rate. S1-S2 normal. No S3 or S4. No discernible murmur noted. Heart rate 58 bpm. Heart sounds are distant. Lungs reveal coarse bilateral rhonchi. Breath sounds are equal bilaterally. No wheezes. No crackles. Saturations are 99%. The patient has bilateral chest tubes. Abdomen soft, without bowel sounds. No masses. Extremities are intact. No cyanosis clubbing or edema. Skin is without rash or lesion. Neurologic examination cannot be assessed as the patient is currently sedated and paralyzed. - Labs CBC & Chem 7: 10/12/21 07:20 10/12/21 07:20 Labs: Abnormal Lab Results - Last 24 Hours (Table) 10/11/21 10/11/21 10/11/21 Range/Units 11:42 14:10 14:10 WBC 18.0 H (3.8-10.6) k/uL RBC 3.73 L (3.80-5.40) m/uL Hgb 10.7 L (11.4-16.0) gm/dL Hct (34.0-46.0) % RDW 17.9 H (11.5-15.5) % Neutrophils # (1.3-7.7) k/uL Monocytes # (0-1.0) k/uL APTT 21.8 L (22.0-30.0) sec D-Dimer (<0.60) mg/L FEU ABG pCO2 (35-45) mmHg ABG pO2 (83-108) mmHg ABG HCO3 (21-25) mmol/L ABG Total CO2 (19-24) mmol/L Carbon Dioxide (22-30) mmol/L BUN (7-17) mg/dL Glucose (74-99) mg/dL POC Glucose (mg/dL) 164 H (75-99) mg/dL Calcium (8.4-10.2) mg/dL Total Protein (6.3-8.2) g/dL Albumin (3.5-5.0) g/dL Crossmatch 10/11/21 10/11/21 10/11/21 Range/Units 17:45 23:45 23:46 WBC (3.8-10.6) k/uL RBC (3.80-5.40) m/uL Hgb (11.4-16.0) gm/dL Hct (34.0-46.0) % RDW (11.5-15.5) % Neutrophils # (1.3-7.7) k/uL Monocytes # (0-1.0) k/uL APTT 21.5 L (22.0-30.0) sec D-Dimer 1.24 H (<0.60) mg/L FEU ABG pCO2 (35-45) mmHg ABG pO2 (83-108) mmHg ABG HCO3 (21-25) mmol/L ABG Total CO2 (19-24) mmol/L Carbon Dioxide (22-30) mmol/L BUN (7-17) mg/dL Glucose (74-99) mg/dL POC Glucose (mg/dL) 164 H 136 H (75-99) mg/dL Calcium (8.4-10.2) mg/dL Total Protein (6.3-8.2) g/dL Albumin (3.5-5.0) g/dL Crossmatch 10/12/21 10/12/21 10/12/21 Range/Units 00:10 02:23 06:13 WBC 23.4 H (3.8-10.6) k/uL RBC 3.55 L (3.80-5.40) m/uL Hgb 10.1 L (11.4-16.0) gm/dL Hct 31.8 L (34.0-46.0) % RDW 17.7 H (11.5-15.5) % Neutrophils # 20.3 H (1.3-7.7) k/uL Monocytes # 1.6 H (0-1.0) k/uL APTT (22.0-30.0) sec D-Dimer (<0.60) mg/L FEU ABG pCO2 58 H (35-45) mmHg ABG pO2 74 L (83-108) mmHg ABG HCO3 37 H (21-25) mmol/L ABG Total CO2 39 H (19-24) mmol/L Carbon Dioxide (22-30) mmol/L BUN (7-17) mg/dL Glucose (74-99) mg/dL POC Glucose (mg/dL) (75-99) mg/dL Calcium (8.4-10.2) mg/dL Total Protein (6.3-8.2) g/dL Albumin (3.5-5.0) g/dL Crossmatch See Detail 10/12/21 10/12/21 10/12/21 Range/Units 06:24 07:20 07:20 WBC 17.3 H (3.8-10.6) k/uL RBC 2.27 L (3.80-5.40) m/uL Hgb 6.5 L* D (11.4-16.0) gm/dL Hct 20.4 L (34.0-46.0) % RDW 17.8 H (11.5-15.5) % Neutrophils # 14.1 H (1.3-7.7) k/uL Monocytes # 1.1 H (0-1.0) k/uL APTT (22.0-30.0) sec D-Dimer (<0.60) mg/L FEU ABG pCO2 (35-45) mmHg ABG pO2 (83-108) mmHg ABG HCO3 (21-25) mmol/L ABG Total CO2 (19-24) mmol/L Carbon Dioxide 36 H (22-30) mmol/L BUN 30 H (7-17) mg/dL Glucose 125 H (74-99) mg/dL POC Glucose (mg/dL) 129 H (75-99) mg/dL Calcium 8.2 L (8.4-10.2) mg/dL Total Protein 4.7 L (6.3-8.2) g/dL Albumin 2.4 L (3.5-5.0) g/dL Crossmatch 10/12/21 Range/Units 07:20 WBC (3.8-10.6) k/uL RBC (3.80-5.40) m/uL Hgb (11.4-16.0) gm/dL Hct (34.0-46.0) % RDW (11.5-15.5) % Neutrophils # (1.3-7.7) k/uL Monocytes # (0-1.0) k/uL APTT 20.6 L (22.0-30.0) sec D-Dimer 0.92 H (<0.60) mg/L FEU ABG pCO2 (35-45) mmHg ABG pO2 (83-108) mmHg ABG HCO3 (21-25) mmol/L ABG Total CO2 (19-24) mmol/L Carbon Dioxide (22-30) mmol/L BUN (7-17) mg/dL Glucose (74-99) mg/dL POC Glucose (mg/dL) (75-99) mg/dL Calcium (8.4-10.2) mg/dL Total Protein (6.3-8.2) g/dL Albumin (3.5-5.0) g/dL Crossmatch Assessment and Plan Assessment: Acute hypoxemic respiratory failure secondary to coronavirus associated pneumonia, status post intubation, and mechanical ventilation on 09/25/2021. No evidence of pulmonary embolism on CT angiogram. Acute bilateral pneumothoraces, status post bilateral chest tube placements, on 10/11/2021. Acute blood loss anemia. Extensive subcutaneous emphysema, as a complication of mechanical ventilation and coronavirus associated pneumonia. Acute deep vein thrombosis. Mild transaminitis secondary to coronavirus infection. Primary hypercoagulable state in the form of Leiden factor deficiency/factor V deficiency. Prior history of DVT. History of fibromyalgia. History of arthritis. History of degenerative disc disease. Lifelong non-tobacco user. Plan: Plan dated 09/24/2021. The patient is not a candidate for REM, and she's had symptoms for more than 7 days. Actually sees, symptoms date back to September 10. 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 The patient does qualify for Decadron. In addition, the patient should be on vitamin C, vitamin D3, and zinc. Additional recommendations and suggestions are forthcoming. Prognosis is guarded. The patient is currently on Levaquin. That may disqualify her from [facility]. Plan dated 09/25/2021. The patient's blood gases suggests worsening respiratory status, and therefore, the patient was transferred down to the intensive care unit. The patient was on saline, at 50 mL an hour. Blood gases again showed a pO2 of only 49, and a pCO2 32, with a pH is 7.42. This is on BiPAP, at 100%. I did speak to her and her about the fact that she may require intubation and mechanical ventilation, before the end of the day. She will continue on Coumadin, as well as Decadron, and vitamins. The patient was placed on Levaquin. Her pro- calcitonin level was elevated. This likely disqualifies her for BANNER. We will continue to follow and make recommendations where appropriate. Prognosis is certainly guarded. Plan dated 09/26/2021. The patient was intubated and mechanically ventilated yesterday. A right radial art line was placed as was a left-sided triple-lumen catheter. The patient's currently sedated and paralyzed. Tube feedings will start today. She did get fluid resuscitation yesterday. She remains on a small dose of norepinephrine. The patient will have labs ordered for the morning including a CBC, basic metabolic profile, and blood gas. The patient remains on Coumadin. In addition , the patient will have a chest x-ray ordered for the morning. Tube feedings will be started today. Prognosis is guarded. We will continue to follow and make recommendations where appropriate. Prognosis is certainly very guarded. Plan dated 10/11/2021. Labs, x-rays, and medications are reviewed. A left-sided chest tube was placed by our team today. In addition, surgery has been consulted for possible tracheostomy and PEG tube placement. The patient remains on propofol, fentanyl, and Nimbex. The patient is on the mechanical ventilator, on 90% FiO2 and PEEP of 16. Additional recommendations and suggestions are forthcoming. Tube feedings are currently going to be placed on hold for possible tracheostomy and PEG tube placement. We will continue to follow and make recommendations where appropriate. Plan dated 10/12/2021. The patient developed bilateral pneumothoraces, and required bilateral chest tube placements, on October 11. There is some bleeding from the left-sided ches t tube. The patient did receive vitamin K, fresh shows some plasma, and 4 factor prothrombin complex concentrate. In addition, the patient is going to receive 1 unit of packed red blood cells. I asked the nurse to call the surgeon to delay surgery. I was able to speak to the patient's , Taco. He is going to talk to the rest of the family about CODE STATUS and whether or not they wish to withdrawal of I support. I spoke to him for about 20 minutes on the phone. The patient remains on propofol, fentanyl, Nimbex, and norepinephrine. Prognosis is poor. We will continue to follow and make recommendations where appropriate. Time with Patient: Greater than 30
[2021-10-12 11:57] LABS: Anisocytosis Slight; Basophils # (A) 0.1 k/uL (0-0.2); Basophils % (A) 0 %; Eosinophils # (A) 0.5 k/uL (0-0.7); Eosinophils % (A) 3 %; HCT 23.3 % (34.0-46.0); HGB 7.7 gm/dL (11.4-16.0); Hypochromasia Moderate; Lymphocytes # (A) 1.6 k/uL (1.0-4.8); Lymphocytes % (A) 11 %; MCH 29.2 pg (25.0-35.0); MCHC 32.9 g/dL (31.0-37.0); MCV 88.7 fL (80.0-100.0); Mean Platelet Volume 9.7; Monocytes % (A) 7 %; Neutrophils # (A) 11.2 k/uL (1.3-7.7); Neutrophils % (A) 78 %; Platelet Count 173 k/uL (150-450); Poikilocytosis Slight; RBC 2.63 m/uL (3.80-5.40); RDW 17.5 % (11.5-15.5); WBC 14.4 k/uL (3.8-10.6)
[2021-10-12 12:03] LABS: Glucose,Whole Blood 128 mg/dL (75-99)
[2021-10-12] MEDS: FLUCONAZOLE IN NACL,ISO-OSM 100 MG in SALINE 1 50ML.BAG IVPB SCH (12:57)
[2021-10-12] MEDS: FUROSEMIDE 10 MG/ML 4 ML VIAL IV SCH (13:11)
--- NOTE | 2021-10-12 14:27 | P.PN ---
<Alden Hallmanee - Last Filed: 10/12/21 14:21> Subjective Progress Note Date: 10/12/21 CHIEF COMPLAINT: Shortness of breath, COVID-19 infection HISTORY OF PRESENT ILLNESS: A 61-year-old female who is admitted to the ICU and was intubated on 09/25/2021 from complications related to COVID-19 pneumonia and acute respiratory distress syndrome. Patient has remained mechanically ventilated and sedated. Patient was seen and examined in the ICU as a follow- up. Yesterday patient underwent a second right chest tube placement for pleural effusion. She was initially scheduled to undergo tracheostomy and PEG tube placement today however she had bleeding from her left chest tube and the PEG tube and tracheostomy was canceled per recommendations from pulmonary/ICU intensivists. She had a drop in her hemoglobin to 6.5, she is status post 2 units of FFP and 1 unit of PRBC transfusion. Also received vitamin K and K Centra. FiO2 90%, PEEP of 16. Patient was hypotensive started on Levophed. PHYSICAL EXAM: VITAL SIGNS: Reviewed. GENERAL: Sedated on mechanical ventilation. HEENT: No sclera icterus. Head is atraumatic, normocephalic. Facial and neck and chest swelling. CHEST: Left and right chest tube in place. ABDOMEN: Soft. Nondistended. Nontender. NEUROLOGIC: Sedated and intubated. ASSESSMENT: 1. Acute hypoxic respiratory failure secondary to COVID-19 pneumonia and complicated with ARDS currently intubated and on enteral nutrition 2. Requiring tracheostomy and gastrostomy tube secondary to above 3. Left lower extremity DVT currently on Eliquis, now on hold 4. Pneumothorax with bilateral chest tubes 5. Acute blood loss anemia secondary to chest tube PLAN: 1. Continue symptomatic and supportive care 2. Hold Eliquis 3. PEG tube and tracheostomy placement canceled for today 4. Will await decision making by family, they will be addressing CODE STATUS and possible comfort care The impression and plan of care has been dictated as directed. I performed a history and examination of this patient, discussed the same with the dictator. I agree with the dictator's note ,documented as a scribe. Any additional findings or plans will be noted. Objective - Vital Signs Vital signs: Vital Signs Temp 97.4 F L 10/12/21 09:11 Pulse 54 L 10/12/21 09:11 Resp 30 H 10/12/21 09:11 BP 98/50 10/12/21 09:11 Pulse Ox 100 10/12/21 09:11 Intake & Output 10/11/21 10/12/21 10/12/21 18:59 06:59 18:59 Intake Total 8341.757 3785.388 160.999 Output Total 3080 695 40 Balance -9204.572 4060.388 120.999 Weight 94 kg 94.5 kg Intake: IV 526 320 20 .9 240 220 20 Cefepime 2 gm In Sodium 200 100 Chloride 0.9% 100 ml @ 25 mls/hr IVPB Q8HR [facility] Rx# :[id number] Fluconazole in NaCl,Iso- 50 Osm 100 mg In Saline 1 50ml.bag @ 50 mls/hr IVPB DAILY@1200 [facility] Rx#: [id number] pressure bag 36 Intake, IV Titration 731.900 844.388 140.999 Amount Cisatracurium 200 mg In 172.516 360.992 16.856 Sodium Chloride 0.9% 180 ml @ 1 MCG/KG/MIN 5.16 mls/hr IV .Q24H [facility] Rx#: [id number] Clevidipine Butyrate 25 80.767 174.133 1.067 mg In Empty Bag 1 bag @ 1 MG/HR 2 mls/hr IV .Q24H [facility] Rx#:[id number] Norepinephrine 8 mg In 16.61 Sodium Chloride 0.9% 250 ml @ 0.05 MCG/KG/MIN 9. 143 mls/hr IV .Q24H [facility] Rx#:[id number] fentaNYL (PF) 2,500 mcg 199.947 45.233 In Sodium Chloride 0.9% 200 ml @ 0.5 MCG/KG/HR 4. 6 mls/hr IV .Q24H [facility] Rx# :[id number] propofoL 1,000 mg In 278.670 264.03 106.466 Empty Bag 1 bag @ Titrate IV .Q0M [facility] Rx#: [id number] Tube Feeding 110 40 Blood Product 611 0 Ffp 24 Cpd Unit 291 [id number] Ffp 24 Cpd Unit 320 [id number] Rc As-1 Unit 0 [id number] Other 60 30 Output: Chest Tube Drainage 15 Chest Tube Right Lateral 15 Chest Urine 3080 680 40 Other: Voiding Method Indwelling Catheter Indwelling Catheter ABP, PAP, CO, CI - Last Documented Arterial Blood Pressure 103/49 - Labs CBC & Chem 7: 10/12/21 11:47 10/12/21 07:20 Labs: Abnormal Lab Results - Last 24 Hours (Table) 10/11/21 10/11/21 10/11/21 Range/Units 11:42 14:10 14:10 WBC 18.0 H (3.8-10.6) k/uL RBC 3.73 L (3.80-5.40) m/uL Hgb 10.7 L (11.4-16.0) gm/dL Hct (34.0-46.0) % RDW 17.9 H (11.5-15.5) % Neutrophils # (1.3-7.7) k/uL Monocytes # (0-1.0) k/uL APTT 21.8 L (22.0-30.0) sec D-Dimer (<0.60) mg/L FEU ABG pCO2 (35-45) mmHg ABG pO2 (83-108) mmHg ABG HCO3 (21-25) mmol/L ABG Total CO2 (19-24) mmol/L Carbon Dioxide (22-30) mmol/L BUN (7-17) mg/dL Glucose (74-99) mg/dL POC Glucose (mg/dL) 164 H (75-99) mg/dL Calcium (8.4-10.2) mg/dL Total Protein (6.3-8.2) g/dL Albumin (3.5-5.0) g/dL Crossmatch 10/11/21 10/11/21 10/11/21 Range/Units 17:45 23:45 23:46 WBC (3.8-10.6) k/uL RBC (3.80-5.40) m/uL Hgb (11.4-16.0) gm/dL Hct (34.0-46.0) % RDW (11.5-15.5) % Neutrophils # (1.3-7.7) k/uL Monocytes # (0-1.0) k/uL APTT 21.5 L (22.0-30.0) sec D-Dimer 1.24 H (<0.60) mg/L FEU ABG pCO2 (35-45) mmHg ABG pO2 (83-108) mmHg ABG HCO3 (21-25) mmol/L ABG Total CO2 (19-24) mmol/L Carbon Dioxide (22-30) mmol/L BUN (7-17) mg/dL Glucose (74-99) mg/dL POC Glucose (mg/dL) 164 H 136 H (75-99) mg/dL Calcium (8.4-10.2) mg/dL Total Protein (6.3-8.2) g/dL Albumin (3.5-5.0) g/dL Crossmatch 10/12/21 10/12/21 10/12/21 Range/Units 00:10 02:23 06:13 WBC 23.4 H (3.8-10.6) k/uL RBC 3.55 L (3.80-5.40) m/uL Hgb 10.1 L (11.4-16.0) gm/dL Hct 31.8 L (34.0-46.0) % RDW 17.7 H (11.5-15.5) % Neutrophils # 20.3 H (1.3-7.7) k/uL Monocytes # 1.6 H (0-1.0) k/uL APTT (22.0-30.0) sec D-Dimer (<0.60) mg/L FEU ABG pCO2 58 H (35-45) mmHg ABG pO2 74 L (83-108) mmHg ABG HCO3 37 H (21-25) mmol/L ABG Total CO2 39 H (19-24) mmol/L Carbon Dioxide (22-30) mmol/L BUN (7-17) mg/dL Glucose (74-99) mg/dL POC Glucose (mg/dL) (75-99) mg/dL Calcium (8.4-10.2) mg/dL Total Protein (6.3-8.2) g/dL Albumin (3.5-5.0) g/dL Crossmatch See Detail 10/12/21 10/12/21 10/12/21 Range/Units 06:24 07:20 07:20 WBC 17.3 H (3.8-10.6) k/uL RBC 2.27 L (3.80-5.40) m/uL Hgb 6.5 L* D (11.4-16.0) gm/dL Hct 20.4 L (34.0-46.0) % RDW 17.8 H (11.5-15.5) % Neutrophils # 14.1 H (1.3-7.7) k/uL Monocytes # 1.1 H (0-1.0) k/uL APTT (22.0-30.0) sec D-Dimer (<0.60) mg/L FEU ABG pCO2 (35-45) mmHg ABG pO2 (83-108) mmHg ABG HCO3 (21-25) mmol/L ABG Total CO2 (19-24) mmol/L Carbon Dioxide 36 H (22-30) mmol/L BUN 30 H (7-17) mg/dL Glucose 125 H (74-99) mg/dL POC Glucose (mg/dL) 129 H (75-99) mg/dL Calcium 8.2 L (8.4-10.2) mg/dL Total Protein 4.7 L (6.3-8.2) g/dL Albumin 2.4 L (3.5-5.0) g/dL Crossmatch 10/12/21 Range/Units 07:20 WBC (3.8-10.6) k/uL RBC (3.80-5.40) m/uL Hgb (11.4-16.0) gm/dL Hct (34.0-46.0) % RDW (11.5-15.5) % Neutrophils # (1.3-7.7) k/uL Monocytes # (0-1.0) k/uL APTT 20.6 L (22.0-30.0) sec D-Dimer 0.92 H (<0.60) mg/L FEU ABG pCO2 (35-45) mmHg ABG pO2 (83-108) mmHg ABG HCO3 (21-25) mmol/L ABG Total CO2 (19-24) mmol/L Carbon Dioxide (22-30) mmol/L BUN (7-17) mg/dL Glucose (74-99) mg/dL POC Glucose (mg/dL) (75-99) mg/dL Calcium (8.4-10.2) mg/dL Total Protein (6.3-8.2) g/dL Albumin (3.5-5.0) g/dL Crossmatch <Pedrito Nelson - Last Filed: 10/12/21 17:08> Subjective As above. 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 Based on total visit time, I have performed more than 50% of the visit. Spoke to the patient's daughter and her for 20-30 minutes at the bedside. Surgery was held today given the patient's instability earlier and the consideration for life support withdrawal. Family still discussing options and in the meanwhile will tentatively schedule for repeat attempts at tracheostomy and PEG tube placement on . Risks of both procedures discussed with both of them at length and these were noted to include but not limited to bleeding, infection, catheter misplacement, bowel injury, ventilatory dependence, cardiac complications, and . They express understanding and state they will continue to discuss extent of care. Objective - Vital Signs Vital signs: Vital Signs Temp 97.4 F L 10/12/21 10:15 Pulse 54 L 10/12/21 16:00 Resp 30 H 10/12/21 16:00 BP 85/48 10/12/21 13:00 Pulse Ox 100 10/12/21 16:00 Intake & Output 10/11/21 10/12/21 10/12/21 18:59 06:59 18:59 Intake Total 2567.155 7419.388 946.164 Output Total 3080 695 335 Balance -0020.623 1694.388 611.164 Weight 94 kg 94.5 kg 94.5 kg Intake: IV 526 320 327 .9 240 220 200 Cefepime 2 gm In Sodium 200 100 100 Chloride 0.9% 100 ml @ 25 mls/hr IVPB Q8HR [facility] Rx# :[id number] Fluconazole in NaCl,Iso- 50 Osm 100 mg In Saline 1 50ml.bag @ 50 mls/hr IVPB DAILY@1200 [facility] Rx#: [id number] pressure bag 36 27 Intake, IV Titration 731.900 844.388 249.164 Amount Cisatracurium 200 mg In 172.516 360.992 16.856 Sodium Chloride 0.9% 180 ml @ 1 MCG/KG/MIN 5.16 mls/hr IV .Q24H [facility] Rx#: [id number] Clevidipine Butyrate 25 80.767 174.133 1.067 mg In Empty Bag 1 bag @ 1 MG/HR 2 mls/hr IV .Q24H [facility] Rx#:[id number] Norepinephrine 8 mg In 33.951 Sodium Chloride 0.9% 250 ml @ 0.05 MCG/KG/MIN 9. 143 mls/hr IV .Q24H [facility] Rx#:[id number] fentaNYL (PF) 2,500 mcg 199.947 45.233 In Sodium Chloride 0.9% 200 ml @ 0.5 MCG/KG/HR 4. 6 mls/hr IV .Q24H [facility] Rx# :[id number] propofoL 1,000 mg In 278.670 264.03 197.290 Empty Bag 1 bag @ Titrate IV .Q0M [facility] Rx#: [id number] Tube Feeding 110 40 30 Blood Product 611 310 Ffp 24 Cpd Unit 291 [id number] Ffp 24 Cpd Unit 320 [id number] Rc As-1 Unit 310 [id number] Other 60 30 30 Output: Chest Tube Drainage 15 Chest Tube Right Lateral 15 Chest Urine 3080 680 335 Other: Voiding Method Indwelling Catheter Indwelling Catheter Indwelling Catheter ABP, PAP, CO, CI - Last Documented Arterial Blood Pressure 155/60 - Labs CBC & Chem 7: 10/12/21 16:58 10/12/21 07:20 Labs: Abnormal Lab Results - Last 24 Hours (Table) 10/11/21 10/11/21 10/11/21 Range/Units 17:45 23:45 23:46 WBC (3.8-10.6) k/uL RBC (3.80-5.40) m/uL Hgb (11.4-16.0) gm/dL Hct (34.0-46.0) % RDW (11.5-15.5) % Neutrophils # (1.3-7.7) k/uL Lymphocytes # (1.0-4.8) k/uL Monocytes # (0-1.0) k/uL APTT 21.5 L (22.0-30.0) sec D-Dimer 1.24 H (<0.60) mg/L FEU ABG pCO2 (35-45) mmHg ABG pO2 (83-108) mmHg ABG HCO3 (21-25) mmol/L ABG Total CO2 (19-24) mmol/L Carbon Dioxide (22-30) mmol/L BUN (7-17) mg/dL Glucose (74-99) mg/dL POC Glucose (mg/dL) 164 H 136 H (75-99) mg/dL Calcium (8.4-10.2) mg/dL Total Protein (6.3-8.2) g/dL Albumin (3.5-5.0) g/dL Crossmatch 10/12/21 10/12/21 10/12/21 Range/Units 00:10 02:23 06:13 WBC 23.4 H (3.8-10.6) k/uL RBC 3.55 L (3.80-5.40) m/uL Hgb 10.1 L (11.4-16.0) gm/dL Hct 31.8 L (34.0-46.0) % RDW 17.7 H (11.5-15.5) % Neutrophils # 20.3 H (1.3-7.7) k/uL Lymphocytes # (1.0-4.8) k/uL Monocytes # 1.6 H (0-1.0) k/uL APTT (22.0-30.0) sec D-Dimer (<0.60) mg/L FEU ABG pCO2 58 H (35-45) mmHg ABG pO2 74 L (83-108) mmHg ABG HCO3 37 H (21-25) mmol/L ABG Total CO2 39 H (19-24) mmol/L Carbon Dioxide (22-30) mmol/L BUN (7-17) mg/dL Glucose (74-99) mg/dL POC Glucose (mg/dL) (75-99) mg/dL Calcium (8.4-10.2) mg/dL Total Protein (6.3-8.2) g/dL Albumin (3.5-5.0) g/dL Crossmatch See Detail 10/12/21 10/12/21 10/12/21 Range/Units 06:24 07:20 07:20 WBC 17.3 H (3.8-10.6) k/uL RBC 2.27 L (3.80-5.40) m/uL Hgb 6.5 L* D (11.4-16.0) gm/dL Hct 20.4 L (34.0-46.0) % RDW 17.8 H (11.5-15.5) % Neutrophils # 14.1 H (1.3-7.7) k/uL Lymphocytes # (1.0-4.8) k/uL Monocytes # 1.1 H (0-1.0) k/uL APTT (22.0-30.0) sec D-Dimer (<0.60) mg/L FEU ABG pCO2 (35-45) mmHg ABG pO2 (83-108) mmHg ABG HCO3 (21-25) mmol/L ABG Total CO2 (19-24) mmol/L Carbon Dioxide 36 H (22-30) mmol/L BUN 30 H (7-17) mg/dL Glucose 125 H (74-99) mg/dL POC Glucose (mg/dL) 129 H (75-99) mg/dL Calcium 8.2 L (8.4-10.2) mg/dL Total Protein 4.7 L (6.3-8.2) g/dL Albumin 2.4 L (3.5-5.0) g/dL Crossmatch 10/12/21 10/12/21 10/12/21 Range/Units 07:20 11:47 12:02 WBC 14.4 H (3.8-10.6) k/uL RBC 2.63 L (3.80-5.40) m/uL Hgb 7.7 L (11.4-16.0) gm/dL Hct 23.3 L (34.0-46.0) % RDW 17.5 H (11.5-15.5) % Neutrophils # 11.2 H (1.3-7.7) k/uL Lymphocytes # (1.0-4.8) k/uL Monocytes # (0-1.0) k/uL APTT 20.6 L (22.0-30.0) sec D-Dimer 0.92 H (<0.60) mg/L FEU ABG pCO2 (35-45) mmHg ABG pO2 (83-108) mmHg ABG HCO3 (21-25) mmol/L ABG Total CO2 (19-24) mmol/L Carbon Dioxide (22-30) mmol/L BUN (7-17) mg/dL Glucose (74-99) mg/dL POC Glucose (mg/dL) 128 H (75-99) mg/dL Calcium (8.4-10.2) mg/dL Total Protein (6.3-8.2) g/dL Albumin (3.5-5.0) g/dL Crossmatch 10/12/21 Range/Units 16:58 WBC 14.9 H (3.8-10.6) k/uL RBC 2.76 L (3.80-5.40) m/uL Hgb 7.9 L (11.4-16.0) gm/dL Hct 24.7 L (34.0-46.0) % RDW 17.9 H (11.5-15.5) % Neutrophils # 13.0 H (1.3-7.7) k/uL Lymphocytes # 0.9 L (1.0-4.8) k/uL Monocytes # (0-1.0) k/uL APTT (22.0-30.0) sec D-Dimer (<0.60) mg/L FEU ABG pCO2 (35-45) mmHg ABG pO2 (83-108) mmHg ABG HCO3 (21-25) mmol/L ABG Total CO2 (19-24) mmol/L Carbon Dioxide (22-30) mmol/L BUN (7-17) mg/dL Glucose (74-99) mg/dL POC Glucose (mg/dL) (75-99) mg/dL Calcium (8.4-10.2) mg/dL Total Protein (6.3-8.2) g/dL Albumin (3.5-5.0) g/dL Crossmatch Assessment and Plan (1) Respiratory failure Current Visit: Yes Status: Acute Code(s): J96.90 - RESPIRATORY FAILURE, UNSP, UNSP W HYPOXIA OR HYPERCAPNIA SNOMED Code(s): 653308274
--- NOTE | 2021-10-12 14:41 | P.PN ---
Subjective Progress Note Date: 10/12/21 This is a 61-year-old female who was recently admitted with acute COVID-19 pneumonia with acute COVID-19 bilateral interstitial pneumonia and also with transaminitis and being closely monitored. Patient remains in the ICU and currently intubated and sedated with an FiO2 of 70% and PEEP is 18. 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 Patient did have a venous Doppler study done recently which showed left leg DVT and patient is maintained on Eliquis will continue. Patient also continues on empiric antibiotics and awaiting for sputum culture finalized. Patient was started on IV cefepime and will continue. Patient is also continued on oral dexamethasone along with vitamin and zinc supplements and will continue. Patient with some mild volume overload and given a dose of IV Lasix push today. 09/29/2021 Patient is seen and evaluated this morning continues to be closely monitored in the ICU and continues to be on mechanical ventilation and sedated. FiO2 was increased at 80% with a PEEP of 18 and oxygen saturations between 87-91%. Patient developing subcutaneous emphysema in the neck and chest wall area and chest x-ray today shows bilateral multifocal and confluent opacification is redemonstrated consistent with COVID-19 infection with a new small left apical pneumothorax estimated under 5% with new pneumomediastinum and recurrent overlying subcutaneous emphysema noted. Patient is white blood count mildly elevated at 16.1 and is continued on oral dexamethasone along with oral eliquis for anticoagulation. Patient continues to be on IV cefepime and blood and sputum cultures are negative thus far. 09/30/2021 Patient is seen today continues to be closely monitored in the ICU with multiple medical consultations following. Patient continues to be mechanically intubated and sedated with continued subcutaneous emphysema noted. Chest xray shows a trace left apical pneumothorax that is minimally smaller 7mm versus 1cm previously, extensive bilateral subcutaneous emphysema persists and diffuse interstitial changes and bilateral patchy opacities persist with slight improvement in aeration in the lower lungs. Per nursing staff corbin was clogged with copious amounts of white discharge and will add diflucan and corbin catheter has been changed and draining adequately. Patient continues on IV cefepime. Patient tolerating tube feeds and will continue. 10/01/2021 Patient is seen and evaluated in follow up this morning and continues to be closely monitored. Multiple medical consultations following and patient c ontinues to be on mechanical vent and sedated. Patient continues on IV Cefepime and diflucan. Patient chest xray today shows stable extensive subcutaneous emphysema, no pneumothorax, and patchy bilateral lung infiltrates remain present. INflammatory markers trending down. 10/04/2021 Patient is seen in follow-up continues to be closely monitored in the ICU. Patient remains on mechanical vent with an FI02 of 65% and peep is 18. Weaning trials being attempted with pulmonary ballroom dance instructor following closely. Patient continues with extensive subq emphysema noted on exam. 10/05/2021 Patient Is seen and evaluated this morning with continued attempts at weaning and continues on mechanical vent and intubated with pulmonary ballroom dance instructor following closely. Patient remains on Eliquis which will be held as surgery Dr. Nelson was consulted for possible PEG and trach tube placement for unsuccessful attempts at weaning from ventilation and prolonged hospitalization on mechanical vent. Chest x-ray today shows recurrent tiny left apical pneumothorax estimated under 5% with worsening overlying subcutaneous emphysema and again pneumomediastinum redemonstrated with multifocal confluent opacification's redemonstrated consistent with COVID-19 infection and/or arts are redemonstrated with no significant change from one day previously. Patient continues on FiO2 of 65% and PEEP was weaned down to 14 today. IV cefepime discontinued. 10/06/2021 Patient is seen in follow-up this morning per nursing staff patient had multiple runs of ectopy an irregular heart rate and rhythms with PVCs and cardiology consulted. Patient was placed on lidocaine drip and was originally on eliquis is currently on hold for possible PEG and trach placement with general surgery following. Patient had difficulty maintaining oxygen saturations and FiO2 was increased to 100% and PEEP continues at 14. Multiple medical consultations following and patient continues on oral steroids along with vitamin and zinc supplements along with fluconazole. Patient being started on IV Lasix daily and recommend close monitoring of electrolytes and kidney functions. 10/07/2021 Patient is seen in follow-up this morning continues to be monitored closely in the ICU with multiple medical consultations following. Patient is currently on mechanical vent with an FiO2 of 80% and PEEP is 16. General surgery also following for possible PEG and trach placement and will need to discuss with surgery about when this will occur. Patient remains on fluconazole. She also continues on vitamin and zinc supplements along with oral dexamethasone, clevidipine, Nimbex, IV Lasix, fentanyl and propofol and is off norepinephrine. Chest x-ray shows stable bilateral lung infiltrates. 10/08/2021 Patient is seen this morning continues to be on mechanical vent with an FiO2 of 85% and PEEP of 16. Patient continues with extensive subcutaneous emphysema and plans are for possible PEG and trach placement although on hold until possibly next week once more stable. Patient continues on Cleviprex along with fentanyl and propofol and is receiving IV Lasix daily. Patient also continues on lidocaine drip which is currently on hold and cardiology is following closely. Anticoagulant was resumed for now again until more stable to undergo PEG and trach placement. Chest x-ray today shows persistent bilateral multifocal and confluent increased opacification is with persistent overlying subcutaneous emphysema noted in pneumomediastinum is again redemonstrated. 10/09/2021 Patient evaluated today in ICU mechanical ventilation with FiO2 of 80%. Chest x-ray this morning shows similar multifocal airspace opacities and stable support lines and tubes. Similar subcutaneous emphysema scattered throughout the visualized thorax. PEG and trach plan for next week once more stable. Current meds include Cleviprex, Nimbex, fentanyl, propofol. She is receiving IV fluconazole, as well as IV Lasix. Levophed and Lidocaine gtt;s are on hold. Positive bowel sounds. Current vitals afebrile, heart rate 71, blood pressure 135/60 and oxygen saturation is 93%. Respirations 30. Labs today, white count 17, hemoglobin 11.6, sodium 139, potassium 3.8, BUN 34, creatinine 0.91, CO2 33, calcium 8.7, ALT 54, albumin 2.8 with blood sugars in the 100s. 10/10/2021 Patient evaluated today in the ICU on the mechanical VENT with fio2 of 100%. Positive bowel movement today, Stage 2 pressure ulcer on coccyx per RN, optifoam ordered. Per RN they were unable to patient as she was desaturating. They're unable to wean Fi02 currently as she does desaturate with any time of movement. She was lying more on her right side during evaluation and pulse ox was dropping into high 80s she was being repositioned by nurses. Plan is to PEG/TRACH patient tomorrow. Last family update was 4 days ago. We will call and discuss case today. Patient is afebrile, heart rate 84, respirations 30, blood pressure 141/55, 92% oxygen saturation on 100% Fi02, which was increased today up from 70 Fi02%. Labs today show WBC of 15.6, hgbl 10.7, sodium 138, potassium 3.9, chloride 100, CO2 37, glucose 117, calcium 8.2. Chest xray today shows pneumonia, ARDS. 10/11/2021 Patient is seen and evaluated in follow-up this morning continues to be closely monitored in the ICU and patient is continued on FiO2 of 90% and PEEP is 16 with multiple medical consultations following. Chest x-ray today shows new left- sided pneumothorax estimated 10-20% with overlying subcutaneous emphysema and pneumomediastinum redemonstrated with bilateral multifocal and confluent op acification's redemonstrated consistent with COVID-19 infection and/or arts and no significant change from one day previous. Patient is status post left chest tube insertion with pulmonary ballroom dance instructor. Cardiology following and patient is off lidocaine drip and maintaining sinus rhythm. Patient also continues on vitamin and zinc supplements along with oral dexamethasone and patient continues on IV Lasix 40 mg daily. Patient also continues off norepinephrine and is currently maintained on IV cefepime along with fluconazole. General surgery following as well and plan is for peg and trach placement in the am 10/12/2021 Patient is seen in the ICU this morning continues to be closely monitored by multiple medical consultations. Patient was scheduled for PEG and trach placement with general surgery Dr. Nelson today although canceled as patient became hypotensive requiring Levophed along with acute blood loss anemia and hemoglobin dropped to 6.5 this morning requiring 1 unit of PRBC. Patient continues with left chest tube with pneumothorax and chest x-ray today shows the jahaira is difficult to clearly identify on the present exam and the ET tube may be approximately 1 cm from the jahaira and there are bilateral chest tubes present with continued diffuse interstitial opacification is and more focal bibasilar opacification is with subcutaneous emphysema persists along the upper chest with slight improvement on the left. No appreciable pneumothorax noted. Patient having worsening right pleural effusion last night and received a right- sided chest tube with pulmonary ballroom dance instructor. FiO2 is 90% and PEEP of 16. Again overall prognosis remains extremely poor and guarded. Review of systems: Unable to obtain as patient is mechanically intubated and sedated Labs: WBC is 17.3, hemoglobin is 6.5, platelets are 194, d-dimer 0.92, sodium 138, potassium 3.6, BUN 30, creatinine 0.69, calcium 8.2 Active Medications Artificial Tears (Artificial Tears-Hypromellose Drops 15 Ml Btl) 2 drops BOTH EYES QID [facility] Last Admin: 10/12/21 10:03 Dose: 2 drops Documented by: Ascorbic Acid (Ascorbic Acid 500 Mg Tab) 500 mg PO BID [facility] Last Admin: 10/12/21 10:07 Dose: 500 mg Documented by: Chlorhexidine Gluconate (Chlorhexidine Gluconate 15 Ml Cup) 15 ml MUCOUS MEM BID [facility] Last Admin: 10/12/21 10:06 Dose: 15 ml Documented by: Dexamethasone (Dexamethasone 2 Mg Tab) 6 mg PO DAILY [facility] Last Admin: 10/12/21 10:07 Dose: 6 mg Documented by: Docusate Sodium (Docusate Oral Soln 100 Mg/10 Ml Cup) 100 mg PO DAILY PRN PRN Reason: Constipation Last Admin: 10/05/21 16:57 Dose: 100 mg Documented by: Ergocalciferol (Ergocalciferol 1,250 Mcg (50,000 Iu) Capsule) 1,250 mcg PO [facility]IS [facility] Last Admin: 10/10/21 08:06 Dose: 1,250 mcg Documented by: Furosemide (Furosemide 10 Mg/Ml 4 Ml Vial) 40 mg IV DAILY [facility] Last Admin: 10/12/21 13:11 Dose: Not Given Documented by: Propofol 1,000 mg/ IV Solution 100 mls @ 0 mls/hr IV .Q0M [facility]; Protocol Last Titration: 10/12/21 07:20 Dose: 40 mcg/kg/min, 22.68 mls/hr Documented by: Cisatracurium Besylate 200 mg/ (Sodium Chloride) 200 mls @ 5.16 mls/hr IV .Q24H [facility]; Protocol Last Titration: 10/12/21 07:10 Dose: 3 mcg/kg/min, 15.48 mls/hr Documented by: Sodium Chloride (Saline 0.9%) 1,000 mls @ 20 mls/hr IV .Q24H [facility] Last Admin: 10/11/21 22:52 Dose: 20 mls/hr Documented by: Fentanyl Citrate 2,500 mcg/ (Sodium Chloride) 250 mls @ 4.6 mls/hr IV .Q24H [facility]; Protocol Last Admin: 10/11/21 22:34 Dose: 1 mcg/kg/hr, 9.2 mls/hr Documented by: Fluconazole/Sodium Chloride (100 mg/ IV Solution) 50 mls @ 50 mls/hr IVPB DAILY@1200 [facility] Last Admin: 10/12/21 12:57 Dose: 50 mls/hr Documented by: Clevidipine 25 mg/ IV Solution 50 mls @ 2 mls/hr IV .Q24H [facility]; Protocol Last Titration: 10/12/21 07:07 Dose: 0 mg/hr, 0 mls/hr Documented by: Cefepime HCl 2 gm/ Sodium (Chloride) 100 mls @ 25 mls/hr IVPB Q8HR [facility] Last Admin: 10/12/21 08:10 Dose: 25 mls/hr Documented by: Lactated Ringer's (Lactated Ringers) 1,000 mls @ 20 mls/hr IV .Q24H [facility] Last Admin: 10/11/21 12:02 Dose: Not Given Documented by: Norepinephrine Bitartrate 8 mg (/ Sodium Chloride) 258 mls @ 9.143 mls/hr IV .Q24H [facility]; Protocol Last Titration: 10/12/21 11:00 Dose: 0 mcg/kg/min, 0 mls/hr Documented by: Insulin Aspart (Insulin Aspart (Novolog) 100 Unit/Ml Vial) 0 unit SQ Q6HR [facility]; Protocol Last Admin: 10/12/21 13:11 Dose: Not Given Documented by: Miscellaneous Information (Pneumonia Protocol Utilized 1 Each Misc) 1 each PO ONCE PRN PRN Reason: Per Protocol Miscellaneous Information (Potassium Replacement Protocol 1 Each Misc) 1 each MISCELLANE DAILY PRN; Protocol PRN Reason: Per Protocol Naloxone HCl (Naloxone 0.4 Mg/Ml 1 Ml Vial) 0.2 mg IV Q2M PRN PRN Reason: Opioid Reversal Pantoprazole Sodium (Pantoprazole 40 Mg/10 Ml Vial) 40 mg IV DAILY [facility] Last Admin: 10/12/21 10:06 Dose: 40 mg Documented by: Zinc Sulfate (Zinc Sulfate 220 Mg Cap) 220 mg PO DAILY [facility] Last Admin: 10/12/21 10:08 Dose: 220 mg Documented by: Physical Exam: Gen: This is a 61-year-old female currently sedated and intubated. mechanical ventilation Fio2 90% with a PEEP of 16 HEENT: Head is atraumatic, normocephalic. Pupils equal, round. Sclerae is anicteric. NECK: Supple. No JVD. No lymphadenopathy. No thyromegaly. subcutaneous emphysema noted in the neck and chest wall area bilaterally extensive. LUNGS: Diminished breath sounds bilaterally with coarse rhonchi and crackles noted. Left more diminished than right. No intercostal retractions. Bilateral chest tubes of the left and right HEART: S1, S2 are muffled ABDOMEN: Soft. Bowel sounds are present. No masses. No tenderness. EXTREMITIES: No pedal edema. No calf tenderness. Bilateral upper extremity edema noted NEUROLOGICAL: Patient is currently intubated and sedated Assessment: Acute COVID-19 infection with acute COVID-19 bilateral interstitial pneumonia with hypoxic hypercarbic respiratory failure on mechanical vent Subcutaneous emphysema of the neck and chest with a left pneumothorax 10-15% Left pneumothorax status post chest tube placement Right-sided pleural effusion with new small right pneumothorax status post chest tube placement Acute blood loss anemia secondary to bilateral chest tube placements with a drop in hemoglobin to 6.5 and was given 1 unit of PRBC Non-sustained ventricular tachycardia, currently sinus Acute left leg deep vein thrombosis Acute respiratory acidosis Primary hypercoagulable state and factor V week deficiency candidiasis secondary to prolonged indwelling Corbin catheter Mild transaminitis, possibly secondary to COVID-19 History of DVT History of degenerative joint disease History of fibromyalgia Acute respiratory acidosis Increased white blood count anemia, of undetermined etiology Elevated inflammatory markers of COVID-19 Obesity with a body mass index of 38.1 Full code Plan: Recommend to continue with current medications and follow along closely with multiple medical consultations. Prognosis remains guarded with multiple complex medical issues noted. Patient continues on mechanical ventilation and FiO2 90% with PEEP 16. No room for weaning attempts today. Patient is status post bilateral chest tube placements of the left and right for bilateral pneumothorax and chest x-ray today in follow-up continues to show patchy bilateral bases and no evidence of pneumothorax today. Patient was scheduled for PEG and trach placement although on hold secondary to these chest tubes and patient became hypotensive requiring Levophed and also had a drop in hemoglobin requiring a unit of PRBC and was given vitamin K along with fresh frozen plasma. Cardiology following and anticoagulant on hold for PEG and trach placement. Surgical interventional PEG and trach have been canceled today. Recommend to continue with current medications. Chest x-ray reviewed as mentioned above and is status post chest tube placement on the left and right with no evidence of pneumothorax at this time. Recommend repeat labs and continued close monitoring. Again due to multiple complex medical issues overall prognosis is extremely poor and quite guarded. Family to discuss further about CODE STATUS and treatment plan moving further. Pulmonary ballroom dance instructor had a lengthy discussion with the family today. Again prognosis is extremely poor and guarded. Objective - Vital Signs Vital signs: Vital Signs Temp 97.4 F L 10/12/21 09:11 Pulse 54 L 10/12/21 09:11 Resp 30 H 10/12/21 09:11 BP 98/50 10/12/21 09:11 Pulse Ox 100 10/12/21 09:11 Intake & Output 10/11/21 10/12/21 10/12/21 18:59 06:59 18:59 Intake Total 4683.476 4195.388 160.999 Output Total 3080 695 40 Balance -1206.647 0758.388 120.999 Weight 94 kg 94.5 kg Intake: IV 526 320 20 .9 240 220 20 Cefepime 2 gm In Sodium 200 100 Chloride 0.9% 100 ml @ 25 mls/hr IVPB Q8HR [facility] Rx# :[id number] Fluconazole in NaCl,Iso- 50 Osm 100 mg In Saline 1 50ml.bag @ 50 mls/hr IVPB DAILY@1200 [facility] Rx#: [id number] pressure bag 36 Intake, IV Titration 731.900 844.388 140.999 Amount Cisatracurium 200 mg In 172.516 360.992 16.856 Sodium Chloride 0.9% 180 ml @ 1 MCG/KG/MIN 5.16 mls/hr IV .Q24H [facility] Rx#: [id number] Clevidipine Butyrate 25 80.767 174.133 1.067 mg In Empty Bag 1 bag @ 1 MG/HR 2 mls/hr IV .Q24H [facility] Rx#:[id number] Norepinephrine 8 mg In 16.61 Sodium Chloride 0.9% 250 ml @ 0.05 MCG/KG/MIN 9. 143 mls/hr IV .Q24H [facility] Rx#:[id number] fentaNYL (PF) 2,500 mcg 199.947 45.233 In Sodium Chloride 0.9% 200 ml @ 0.5 MCG/KG/HR 4. 6 mls/hr IV .Q24H [facility] Rx# :[id number] propofoL 1,000 mg In 278.670 264.03 106.466 Empty Bag 1 bag @ Titrate IV .Q0M [facility] Rx#: [id number] Tube Feeding 110 40 Blood Product 611 0 Ffp 24 Cpd Unit 291 [id number] Ffp 24 Cpd Unit 320 [id number] Rc As-1 Unit 0 [id number] Other 60 30 Output: Chest Tube Drainage 15 Chest Tube Right Lateral 15 Chest Urine 3080 680 40 Other: Voiding Method Indwelling Catheter Indwelling Catheter ABP, PAP, CO, CI - Last Documented Arterial Blood Pressure 103/49 - Labs CBC & Chem 7: 10/12/21 11:47 10/12/21 07:20 Labs: Abnormal Lab Results - Last 24 Hours (Table) 10/11/21 10/11/21 10/11/21 Range/Units 11:42 14:10 14:10 WBC 18.0 H (3.8-10.6) k/uL RBC 3.73 L (3.80-5.40) m/uL Hgb 10.7 L (11.4-16.0) gm/dL Hct (34.0-46.0) % RDW 17.9 H (11.5-15.5) % Neutrophils # (1.3-7.7) k/uL Monocytes # (0-1.0) k/uL APTT 21.8 L (22.0-30.0) sec D-Dimer (<0.60) mg/L FEU ABG pCO2 (35-45) mmHg ABG pO2 (83-108) mmHg ABG HCO3 (21-25) mmol/L ABG Total CO2 (19-24) mmol/L Carbon Dioxide (22-30) mmol/L BUN (7-17) mg/dL Glucose (74-99) mg/dL POC Glucose (mg/dL) 164 H (75-99) mg/dL Calcium (8.4-10.2) mg/dL Total Protein (6.3-8.2) g/dL Albumin (3.5-5.0) g/dL Crossmatch 10/11/21 10/11/21 10/11/21 Range/Units 17:45 23:45 23:46 WBC (3.8-10.6) k/uL RBC (3.80-5.40) m/uL Hgb (11.4-16.0) gm/dL Hct (34.0-46.0) % RDW (11.5-15.5) % Neutrophils # (1.3-7.7) k/uL Monocytes # (0-1.0) k/uL APTT 21.5 L (22.0-30.0) sec D-Dimer 1.24 H (<0.60) mg/L FEU ABG pCO2 (35-45) mmHg ABG pO2 (83-108) mmHg ABG HCO3 (21-25) mmol/L ABG Total CO2 (19-24) mmol/L Carbon Dioxide (22-30) mmol/L BUN (7-17) mg/dL Glucose (74-99) mg/dL POC Glucose (mg/dL) 164 H 136 H (75-99) mg/dL Calcium (8.4-10.2) mg/dL Total Protein (6.3-8.2) g/dL Albumin (3.5-5.0) g/dL Crossmatch 10/12/21 10/12/21 10/12/21 Range/Units 00:10 02:23 06:13 WBC 23.4 H (3.8-10.6) k/uL RBC 3.55 L (3.80-5.40) m/uL Hgb 10.1 L (11.4-16.0) gm/dL Hct 31.8 L (34.0-46.0) % RDW 17.7 H (11.5-15.5) % Neutrophils # 20.3 H (1.3-7.7) k/uL Monocytes # 1.6 H (0-1.0) k/uL APTT (22.0-30.0) sec D-Dimer (<0.60) mg/L FEU ABG pCO2 58 H (35-45) mmHg ABG pO2 74 L (83-108) mmHg ABG HCO3 37 H (21-25) mmol/L ABG Total CO2 39 H (19-24) mmol/L Carbon Dioxide (22-30) mmol/L BUN (7-17) mg/dL Glucose (74-99) mg/dL POC Glucose (mg/dL) (75-99) mg/dL Calcium (8.4-10.2) mg/dL Total Protein (6.3-8.2) g/dL Albumin (3.5-5.0) g/dL Crossmatch See Detail 10/12/21 10/12/21 10/12/21 Range/Units 06:24 07:20 07:20 WBC 17.3 H (3.8-10.6) k/uL RBC 2.27 L (3.80-5.40) m/uL Hgb 6.5 L* D (11.4-16.0) gm/dL Hct 20.4 L (34.0-46.0) % RDW 17.8 H (11.5-15.5) % Neutrophils # 14.1 H (1.3-7.7) k/uL Monocytes # 1.1 H (0-1.0) k/uL APTT (22.0-30.0) sec D-Dimer (<0.60) mg/L FEU ABG pCO2 (35-45) mmHg ABG pO2 (83-108) mmHg ABG HCO3 (21-25) mmol/L ABG Total CO2 (19-24) mmol/L Carbon Dioxide 36 H (22-30) mmol/L BUN 30 H (7-17) mg/dL Glucose 125 H (74-99) mg/dL POC Glucose (mg/dL) 129 H (75-99) mg/dL Calcium 8.2 L (8.4-10.2) mg/dL Total Protein 4.7 L (6.3-8.2) g/dL Albumin 2.4 L (3.5-5.0) g/dL Crossmatch 10/12/21 Range/Units 07:20 WBC (3.8-10.6) k/uL RBC (3.80-5.40) m/uL Hgb (11.4-16.0) gm/dL Hct (34.0-46.0) % RDW (11.5-15.5) % Neutrophils # (1.3-7.7) k/uL Monocytes # (0-1.0) k/uL APTT 20.6 L (22.0-30.0) sec D-Dimer 0.92 H (<0.60) mg/L FEU ABG pCO2 (35-45) mmHg ABG pO2 (83-108) mmHg ABG HCO3 (21-25) mmol/L ABG Total CO2 (19-24) mmol/L Carbon Dioxide (22-30) mmol/L BUN (7-17) mg/dL Glucose (74-99) mg/dL POC Glucose (mg/dL) (75-99) mg/dL Calcium (8.4-10.2) mg/dL Total Protein (6.3-8.2) g/dL Albumin (3.5-5.0) g/dL Crossmatch
[2021-10-12] MEDS: LACTATED RINGERS 1,000 ML IV SCH (16:44)
[2021-10-12 17:03] LABS: Anisocytosis Slight; Basophils % (A) 0 %; Eosinophils # (A) 0.2 k/uL (0-0.7); Eosinophils % (A) 1 %; HCT 24.7 % (34.0-46.0); HGB 7.9 gm/dL (11.4-16.0); Hypochromasia Moderate; Lymphocytes # (A) 0.9 k/uL (1.0-4.8); Lymphocytes % (A) 6 %; MCH 28.5 pg (25.0-35.0); MCHC 31.9 g/dL (31.0-37.0); MCV 89.4 fL (80.0-100.0); Mean Platelet Volume 9.4; Monocytes # (A) 0.6 k/uL (0-1.0); Monocytes % (A) 4 %; Neutrophils % (A) 88 %; Platelet Count 197 k/uL (150-450); Poikilocytosis Slight; RBC 2.76 m/uL (3.80-5.40); RDW 17.9 % (11.5-15.5); WBC 14.9 k/uL (3.8-10.6)
[2021-10-12 18:50] LABS: Glucose,Whole Blood 172 mg/dL (75-99)
[2021-10-12 23:07] LABS: Glucose,Whole Blood 133 mg/dL (75-99)
[2021-10-13] MEDS: SODIUM CHLORIDE 0.9% 1,000 ML IV SCH (01:46)
[2021-10-13] MEDS: fentaNYL (PF) 2,500 MCG in SODIUM CHLORIDE 0.9% 200 ML IV SCH (02:52)
[2021-10-13 04:29] LABS: Anisocytosis Slight; Basophils % (A) 0 %; Eosinophils # (A) 0.1 k/uL (0-0.7); Eosinophils % (A) 1 %; HCT 22.8 % (34.0-46.0); HGB 7.3 gm/dL (11.4-16.0); Hypochromasia Moderate; Lymphocytes # (A) 1.6 k/uL (1.0-4.8); Lymphocytes % (A) 9 %; MCH 28.4 pg (25.0-35.0); MCHC 31.9 g/dL (31.0-37.0); MCV 89.1 fL (80.0-100.0); Mean Platelet Volume 9.4; Monocytes % (A) 5 %; Neutrophils # (A) 15.1 k/uL (1.3-7.7); Neutrophils % (A) 84 %; Platelet Count 208 k/uL (150-450); Poikilocytosis Moderate; RBC 2.56 m/uL (3.80-5.40); RDW 18.4 % (11.5-15.5)
[2021-10-13 04:46] LABS: African American GFR (CKD) >90 (>60 ml/min/1.73 sqM); Anion Gap 2 mmol/L; Blood Urea Nitrogen 27 mg/dL (7-17); Calcium 8.1 mg/dL (8.4-10.2); Carbon Dioxide 32 mmol/L (22-30); Chloride 104 mmol/L (98-107); Glucose 106 mg/dL (74-99); Non-African American GFR(CKD) >90 (>60 ml/min/1.73 sqM); Potassium 3.6 mmol/L (3.5-5.1); Sodium 138 mmol/L (137-145)
[2021-10-13] MEDS ORDERED: Potassium Replacement Protocol 1 EACH MISC MISCELLANE PRN (04:54)
[2021-10-13] MEDS ORDERED: POTASSIUM BICARBONATE/CIT AC 20 MEQ TABLET.EFF NG-TUBE SCH (05:00)
[2021-10-13 05:21] LABS: ABG Base Excess 9.7 mmol/L; ABG HCO3 34 mmol/L (21-25); ABG Oxygen Saturation 98.1 % (94-97); ABG PCO2 50 mmHg (35-45); ABG PH 7.44 (7.35-7.45); ABG PO2 89 mmHg (83-108); ABG TCO2 35 mmol/L (19-24); Allen Test Performed? Yes
[2021-10-13 05:27] LABS: Glucose,Whole Blood 102 mg/dL (75-99)
[2021-10-13] MEDS: INSULIN ASPART (NovoLOG) 100 UNIT/ML VIAL SQ SCH ×3 (05:31→18:06)
[2021-10-13] MEDS: CISATRACURIUM 200 MG in SODIUM CHLORIDE 0.9% 180 ML IV SCH ×2 (06:30→18:29)
[2021-10-13] MEDS: CLEVIDIPINE BUTYRATE 25 MG in EMPTY BAG 1 BAG IV SCH ×5 (06:52→15:47)
--- NOTE | 2021-10-13 07:16 | P.PN ---
Subjective Progress Note Date: 10/13/21 Principal diagnosis: Cardiac arrhythmia/COVID-19 pneumonia The patient is a 62-year-old female patient who was admitted to the intensive care unit with COVID-19 pneumonia and subsequently she developed acute hypoxic respiratory failure requiring intubation and mechanical ventilation. The infection was complicated by deep venous thrombosis. The patient was evaluated this morning. Last night she required small doses of norepinephrine but currently she is off norepinephrine. She has been gaining normal sinus mechanism and no more evidence of ventricular arrhythmia noted. . She continues to be on Lasix IV as well. Kidney function is within normal limits. Hemoglobin is 7.2. At this point we'll continue supportive care. Consider starting the patient on anticoagulation Objective - Vital Signs Vital signs: Vital Signs Temp 97.4 F L 10/13/21 04:00 Pulse 79 10/13/21 07:00 Resp 30 H 10/13/21 07:00 BP 135/58 10/13/21 07:00 Pulse Ox 89 L 10/13/21 07:00 Intake & Output 10/12/21 10/13/21 10/13/21 18:59 06:59 18:59 Intake Total 1004.347 0455.184 30 Output Total 405 734 35 Balance 788.022 656.184 -5 Weight 94.5 kg Intake: IV 373 343 20 .9 240 240 20 Cefepime 2 gm In Sodium 100 100 Chloride 0.9% 100 ml @ 25 mls/hr IVPB Q8HR [facility] Rx# :[id number] pressure bag 33 3 Intake, IV Titration 430.022 837.184 Amount Cisatracurium 200 mg In 197.714 180.342 Sodium Chloride 0.9% 180 ml @ 1 MCG/KG/MIN 5.16 mls/hr IV .Q24H [facility] Rx#: [id number] Clevidipine Butyrate 25 1.067 39.267 mg In Empty Bag 1 bag @ 1 MG/HR 2 mls/hr IV .Q24H [facility] Rx#:[id number] Norepinephrine 8 mg In 33.951 22.064 Sodium Chloride 0.9% 250 ml @ 0.05 MCG/KG/MIN 9. 143 mls/hr IV .Q24H [facility] Rx#:[id number] fentaNYL (PF) 2,500 mcg 250 In Sodium Chloride 0.9% 200 ml @ 0.5 MCG/KG/HR 4. 6 mls/hr IV .Q24H [facility] Rx# :[id number] propofoL 1,000 mg In 197.290 345.511 Empty Bag 1 bag @ Titrate IV .Q0M [facility] Rx#: [id number] Tube Feeding 50 120 10 Blood Product 310 Rc As-1 Unit 310 [id number] Other 30 90 Output: Chest Tube Drainage 39 Chest Tube Left Lateral 13 Chest Chest Tube Right Lateral 26 Chest Urine 405 695 35 Other: Voiding Method Indwelling Catheter Indwelling Catheter ABP, PAP, CO, CI - Last Documented Arterial Blood Pressure 143/50 - Constitutional General appearance: Present: no acute distress - Labs CBC & Chem 7: 10/13/21 04:13 10/13/21 04:13 Labs: Abnormal Lab Results - Last 24 Hours (Table) 10/12/21 10/12/21 10/12/21 Range/Units 02:23 07:20 07:20 WBC 17.3 H (3.8-10.6) k/uL RBC 2.27 L (3.80-5.40) m/uL Hgb 6.5 L* D (11.4-16.0) gm/dL Hct 20.4 L (34.0-46.0) % RDW 17.8 H (11.5-15.5) % Neutrophils # 14.1 H (1.3-7.7) k/uL Lymphocytes # (1.0-4.8) k/uL Monocytes # 1.1 H (0-1.0) k/uL APTT (22.0-30.0) sec D-Dimer (<0.60) mg/L FEU ABG pCO2 (35-45) mmHg ABG HCO3 (21-25) mmol/L ABG Total CO2 (19-24) mmol/L ABG O2 Saturation (94-97) % Carbon Dioxide 36 H (22-30) mmol/L BUN 30 H (7-17) mg/dL Glucose 125 H (74-99) mg/dL POC Glucose (mg/dL) (75-99) mg/dL Calcium 8.2 L (8.4-10.2) mg/dL Total Protein 4.7 L (6.3-8.2) g/dL Albumin 2.4 L (3.5-5.0) g/dL Crossmatch See Detail 10/12/21 10/12/21 10/12/21 Range/Units 07:20 11:47 12:02 WBC 14.4 H (3.8-10.6) k/uL RBC 2.63 L (3.80-5.40) m/uL Hgb 7.7 L (11.4-16.0) gm/dL Hct 23.3 L (34.0-46.0) % RDW 17.5 H (11.5-15.5) % Neutrophils # 11.2 H (1.3-7.7) k/uL Lymphocytes # (1.0-4.8) k/uL Monocytes # (0-1.0) k/uL APTT 20.6 L (22.0-30.0) sec D-Dimer 0.92 H (<0.60) mg/L FEU ABG pCO2 (35-45) mmHg ABG HCO3 (21-25) mmol/L ABG Total CO2 (19-24) mmol/L ABG O2 Saturation (94-97) % Carbon Dioxide (22-30) mmol/L BUN (7-17) mg/dL Glucose (74-99) mg/dL POC Glucose (mg/dL) 128 H (75-99) mg/dL Calcium (8.4-10.2) mg/dL Total Protein (6.3-8.2) g/dL Albumin (3.5-5.0) g/dL Crossmatch 10/12/21 10/12/21 10/12/21 Range/Units 16:58 18:48 23:05 WBC 14.9 H (3.8-10.6) k/uL RBC 2.76 L (3.80-5.40) m/uL Hgb 7.9 L (11.4-16.0) gm/dL Hct 24.7 L (34.0-46.0) % RDW 17.9 H (11.5-15.5) % Neutrophils # 13.0 H (1.3-7.7) k/uL Lymphocytes # 0.9 L (1.0-4.8) k/uL Monocytes # (0-1.0) k/uL APTT (22.0-30.0) sec D-Dimer (<0.60) mg/L FEU ABG pCO2 (35-45) mmHg ABG HCO3 (21-25) mmol/L ABG Total CO2 (19-24) mmol/L ABG O2 Saturation (94-97) % Carbon Dioxide (22-30) mmol/L BUN (7-17) mg/dL Glucose (74-99) mg/dL POC Glucose (mg/dL) 172 H 133 H (75-99) mg/dL Calcium (8.4-10.2) mg/dL Total Protein (6.3-8.2) g/dL Albumin (3.5-5.0) g/dL Crossmatch 10/13/21 10/13/21 10/13/21 Range/Units 04:13 04:13 05:17 WBC 18.0 H (3.8-10.6) k/uL RBC 2.56 L (3.80-5.40) m/uL Hgb 7.3 L (11.4-16.0) gm/dL Hct 22.8 L (34.0-46.0) % RDW 18.4 H (11.5-15.5) % Neutrophils # 15.1 H (1.3-7.7) k/uL Lymphocytes # (1.0-4.8) k/uL Monocytes # (0-1.0) k/uL APTT (22.0-30.0) sec D-Dimer (<0.60) mg/L FEU ABG pCO2 50 H (35-45) mmHg ABG HCO3 34 H (21-25) mmol/L ABG Total CO2 35 H (19-24) mmol/L ABG O2 Saturation 98.1 H (94-97) % Carbon Dioxide 32 H (22-30) mmol/L BUN 27 H (7-17) mg/dL Glucose 106 H (74-99) mg/dL POC Glucose (mg/dL) (75-99) mg/dL Calcium 8.1 L (8.4-10.2) mg/dL Total Protein (6.3-8.2) g/dL Albumin (3.5-5.0) g/dL Crossmatch 10/13/21 Range/Units 05:25 WBC (3.8-10.6) k/uL RBC (3.80-5.40) m/uL Hgb (11.4-16.0) gm/dL Hct (34.0-46.0) % RDW (11.5-15.5) % Neutrophils # (1.3-7.7) k/uL Lymphocytes # (1.0-4.8) k/uL Monocytes # (0-1.0) k/uL APTT (22.0-30.0) sec D-Dimer (<0.60) mg/L FEU ABG pCO2 (35-45) mmHg ABG HCO3 (21-25) mmol/L ABG Total CO2 (19-24) mmol/L ABG O2 Saturation (94-97) % Carbon Dioxide (22-30) mmol/L BUN (7-17) mg/dL Glucose (74-99) mg/dL POC Glucose (mg/dL) 102 H (75-99) mg/dL Calcium (8.4-10.2) mg/dL Total Protein (6.3-8.2) g/dL Albumin (3.5-5.0) g/dL Crossmatch Assessment and Plan Assessment: Assessment #1 COVID-19 pneumonia #2 acute hypoxic respiratory failure #3 history of deep venous thrombosis #4 subcutaneous emphysema #5 ventricular arrhythmia in the term of nonsustained VT which has resolved Plan #1 the patient has been stable from the arrhythmia standpoint overview #2 continue the current medical regimen #3 continue IV Lasix with continuing monitoring her kidney function and electrolyte #4 start the patient on oral anticoagulation #5 follow-up with the patient
--- NOTE | 2021-10-13 07:27 | XR ---
EXAMINATION TYPE: XR chest 1V portable DATE OF EXAM: 10/13/2021 COMPARISON: 10/12/2021 HISTORY: SOB, Follow Up FINDINGS: Indwelling tubes and catheters are unchanged. Bilateral chest tubes without sizable pneumothorax iden tified this time. Subcutaneous air persists. Persistent interstitial changes bilaterally with airspace disease at the bilateral lung bases unchang ed. Stable appearance of the cardio-mediastinal structures at this time. Pleural effusion unchanged. IMPRESSION: 1. Stable portable chest. Clinical correlation and follow up until resolution is recommended.
[2021-10-13] MEDS: PANTOPRAZOLE 40 MG/10 ML VIAL IV SCH (08:48)
[2021-10-13] MEDS: FUROSEMIDE 10 MG/ML 4 ML VIAL IV SCH (08:48)
[2021-10-13] MEDS: CEFEPIME 2 GM in SODIUM CHLORIDE 0.9% 100 ML IVPB SCH ×2 (08:48→15:49)
[2021-10-13] MEDS: dexAMETHasone 2 MG TAB PO SCH (08:49)
[2021-10-13] MEDS: ASCORBIC ACID 500 MG TAB PO SCH ×2 (08:49→20:26)
[2021-10-13] MEDS: ZINC SULFATE 220 MG CAP PO SCH (08:49)
[2021-10-13] MEDS: ARTIFICIAL TEARS-HYPROMELLOSE DROPS 15 ML BTL BOTH EYES SCH ×4 (08:51→20:27)
[2021-10-13] MEDS: CHLORHEXIDINE GLUCONATE 15 ML CUP MUCOUS MEM SCH ×2 (08:51→20:25)
--- NOTE | 2021-10-13 09:02 | P.PN ---
Subjective Progress Note Date: 10/13/21 Principal diagnosis: Hypoxemic respiratory failure. Pulmonary consult dated 09/24/2021. 61-year-old female who states that she's been having symptoms, since September 10. The symptoms included shortness of breath, cough, fatigue, muscle aches, and generally just not feeling well. The patient is on vaccinated. She tested positive for coronavirus on September 23. Currently, she is on BiPAP with settings of 16/8, at 100%. Her primary care physician is Dr. Dionte Bal. The patient takes Coumadin chronically for her factor V or Leiden factor deficiency. Initially, on room air, her saturations were in the 70s, and on a nonrebreather, only got up into the mid 80s. In addition to the primary hypercoagulable state, she has a history of DVT, fibromyalgia, pneumonia, arthritis, and degenerative disc disease. She is a lifelong nonsmoker. She is getting saline at 50 mL an hour currently. White count 12.1, with a normal hemoglobin, hematocrit, and platelet count. PTT 24.2 INR 2.5, and d-dimer was 32.13. Sodium 1:30, potassium 3.1, chlorides 106, CO2 20, anion gap 12, BUN 47, and creatinine 1.5. Lactic acid was 1.5. AST was 95 with an ALT of 60. Pro-calcitonin level was 0.52. N-terminal proBNP is 259. Chest x-ray reveals diffuse bilateral infiltrates. CT angiogram was negative for pulmonary embolism, but did show diffuse infiltrates consistent with coronavirus pneumonia. Progress note dated 09/25/2021. 62-year-old female that I saw yesterday in consultation. She's been having coronavirus symptoms since September 10. The patient sees Dr. Dionte Bal as a primary. Yesterday, she was on BiPAP, at 16/8 and 100%. She was doing okay. Today, her saturations are quite low, she is much more tachypnea, and I decided to go ahead and move her to the ICU. The patient may require intubation and mechanical ventilation before the end of the day. CT angiogram was negative for pulmonary embolism. I did speak to her daughter, and her . White count 17.1, hemoglobin 11.9, hematocrit 37.5, platelet count 390,000. PTT is 33.3 INR is 3.5. Blood gases done on 100% show pO2 of only 49, pCO2 32, and a pH is 7.42. Sodium is 142, potassium 3.7, chlorides 113, CO2 21, anion gap 8, BUN 35, with a creatinine of 1.01. Progress note dated 09/26/2021. 62-year-old female, who was admitted with a diagnosis of hypoxemic respiratory failure secondary to coronavirus associated pneumonia. She's had coronavirus symptoms since September 10. Yesterday, she was transferred down to the intensive care unit for worsening respiratory status, and required intubation and mechanical ventilation. In addition, she had a central line placed and an arterial line placed yesterday. She remains on the ventilator, she is on the volume assist control mode, rate 26, tidal volume 400, FiO2 100%, and PEEP of 15. Arterial blood gases show pO2 of 82, pCO2 46, and a pH is 7.27. The patient's getting saline at 50 mL an hour, Nimbex at 1 mcg/kg/m, propofol at 50 mcg/kg/m, and norepinephrine at 2 mcg/m. Tube feedings have yet to be started. Chest x-ray shows a properly placed endotracheal tube, and diffuse bilateral infiltrates, which are essentially unchanged. White count 14.4, hemoglobin 10.5, hematocrit 32.4, and platelet count 250,000. PTT 34.5 with an INR 3.6. Sodium 143, potassium 4, chlorides 118, CO2 22, anion gap 3, BUN 27, and creatinine 0.95. LDH is 930. C-reactive protein is 16.2. CT angiogram was negative for pulmonary embolism. Reevaluated today on 10/08/21, patient remains in the ICU, intubated, mechanically ventilated, does not seem to be doing much better today. Patient is basically about the same, remains on assist control rate of 30 tidal volume 325 FiO2 is up to 85% PEEP remains at 16. Try to increase the PEEP, however there was a significant increase in her peak airway pressure and plateau pressure. Presently her peak airway pressure is 38, and plateau pressure is 34. Patient remains on propofol at 40 mcg/kg/m Nimbex of 0.5 but granted kilo per minute fentanyl 1 mcg/kg/h clevidipine 5 mg per hour. Chest x-ray is basically about the same, continues to show bilateral infiltrates and most likely underlying ARDS. Her labs showed WBC count of 13.0 hemoglobin 10.4. Electrolytes are normal renal profile is normal. ABG showed a pO2 of 61 pCO2 57 pH of 7.47. This was on 75%, and increase her FiO2 to 80% O2 saturation seems to be marginal on the monitor. Patient is off lidocaine drip today. Reevaluated today on 10/09/21, patient remains in the ICU, intubated and mechanically ventilated. Not much of the changes noted in the last few days, remains on assist control rate of 11/18/2024 FiO2 80% and PEEP of 16. ABG remains marginal, her pO2 is 62 pCO2 56 pH of 7.42. Patient remains on Nimbex at 3 mcg/kg/m fentanyl 1 mcg/kg/h propofol 40 mcg/kg/m, she is on clevidipine for milligrams per hour, IV fluids at KVO. Her WBC count is 17.1, and hemoglobin is 11.6. Electrolytes are normal and renal profile is normal. Chest x-ray continues to show multifocalopacities. And subcutaneous emphysema. No evidence of pneumothorax. Endotracheal tube, nasogastric tube and left central line are all in proper positions. Reevaluated today on 10/10/21, patient remains in the ICU, intubated and mechanically ventilated. She is presently on assist control rate of 30 tidal volume 325 FiO2 70% PEEP of 16. Her ABG showed a pO2 of 79 pCO2 48 pH of 7.50. Chest x-ray is basically showing no change. Continues to have bilateral infiltrates. Electrolytes are normal bicarb is 37 BUN is 35 creatinine 0.69 WBC count is 15.6 hemoglobin is 10.7. Patient remains on vital HPI 10 mL per hour. She is off level Prax, and her blood pressure seems to be relatively stable. Patient remains sedated and paralyzed, she is on propofol at 50 mcg/kg/m Nimbex at 3 mcg/kg/m fentanyl 12 mcg/kg/h, she is supposed to undergo tracheostomy and PEG tube placement next week, her Eliquis was restarted, needs to be placed on hold once the decision was made whether she is undergoing tracheostomy and PEG tube tomorrow by Dr. balbuena Progress note dated 10/11/2021. 61-year-old female admitted back on September 23. She came in with a diagnosis of coronavirus associated pneumonia. She came to the intensive care unit on the , and was intubated for respiratory failure on 09/25/2021. The patient remains on mechanical ventilator. The patient's on the volume assist control mode, rate 30, tidal volume 325, FiO2 90%, PEEP of 16. Blood gases show pO2 of 62, pCO2 of 51, and a pH is 7.47. The patient's getting saline at 20 mL an hour, propofol at 40 mcg/kg/m, fentanyl at 1 mcg/kg/h, Nimbex at 3 mcg/kg/m, and vital high protein at 10 mL an hour, which is goal. The patient's chest x-ray showed a left-sided pneumothorax, about 20-25%. A #28-Arabic chest tube was inserted today. Also, a fresh arterial line was placed today, and the left radial artery. White count 16.5, hemoglobin 10.6, hematocrit 34.5, platelet count 2 48,000. Sodium 136, potassium 3.6, chlorides 99, CO2 36, anion gap 1, BUN 32, with a creatinine 0.7. Microbiologic studies are all negative. Chest x-ray shows a very properly placed left-sided chest tube, with complete resolution of prior left-sided pneumothorax. Progress note dated 10/12/2021. 61-year-old female admitted back on 09/23/2021. She came in with a diagnosis of coronavirus associated pneumonia. The patient came to the intensive care unit on 09/25/2021, and was intubated on 09/25/2021 for worsening respiratory status. The patient remains on the mechanical ventilator. The patient was to have a tracheostomy and PEG tube placed today, but unfortunately, her hospital course is now been complicated by bilateral pneumothorax, requiring bilateral chest tube placements on October 11, and bleeding from the left chest tube site, since yesterday. That is despite the fact that the patient received fresh frozen plasma, vitamin K, and 4 factor prothrombin complex concentrate. Currently, the patient remains on the volume assist control, rate 30, tidal volume 325, FiO2 90%, and PEEP of 16. Blood gases show pO2 of 74, pCO2 of 58, and a pH is 7.41. The patient's on saline at KVO, propofol at 40 mics per kilogram per minute, Nimbex at 3 mcg/kg/m, fentanyl at 1 mcg/kg/h, norepinephrine at 2 mcg/m, and tube feeds are currently on hold. I did order 1 unit packed red blood cells. I told the nurse to call the physician, they canceled the anticipated surgery today. I was able to speak to the patient's , Taco, at [phone]. He was going to talk to the family about CODE STATUS, and possibly withdrawing life support. White count 17.3, hemoglobin 6.5, down from 10.1, hematocrit 20.4, and platelet count 194,000. PT 10.6 INR 1 PTT fibrinogen 326, and d-dimer is 0.92. Sodium 138, potassium 3.6, chlorides 101, CO2 36, anion gap 1, BUN 30, creatinine 0.69. Sputum is negative. Blood cultures are negative. Chest x-ray shows bilateral chest tubes, without pneumothorax, and diffuse patchy bilateral infiltrates. Progress note dated 10/13/2021. 61-year-old female, admitted back on 09/23/2021. She was admitted with a diagnosis of coronavirus associated pneumonia. He came to the intensive care unit on 09/25/2021, and was intubated on the same day for worsening respiratory status. She remains on mechanical ventilator. The patient was to have a trache ostomy and PEG tube placed, but that was put on hold. She did develop bilateral pneumothoraces, and required bilateral chest tube insertions. At one point, she was bleeding from the left chest tube site. That subsequently, has stopped. She remains on the ventilator, volume assist control, rate 30, tidal volume 325, FiO2 60%, and PEEP of 16. Blood gases show pO2 of 89, pCO2 of 50, and pH is 7. 44. The patient's currently on Nimbex at 3 mics per kilogram per minute, propofol at 50 mcg/kg/m, fentanyl 1 mcg/kg/h, Cleveprex at 11 mg an hour, saline at 20 mL an hour, and vital high protein at 10 mL an hour, which is goal. The tube feeds are currently on hold in anticipation of tracheostomy and PEG tube placement. White count 18, hemoglobin 7.3, hematocrit 22.8, and platelet count 208,000. Sodium 138, potassium 3.6, chlorides 104, CO2 32, anion gap 2, BUN 27, and creatinine 0.62. Microbiologic studies are negative. Chest x-ray shows bilateral chest tubes. No sizable pneumothorax is noted. Subcutaneous air persist. Persistent interstitial densities are noted bilaterally. Objective - Vital Signs Vital signs: Vital Signs Temp 97.4 F L 10/13/21 04:00 Pulse 79 10/13/21 07:00 Resp 30 H 10/13/21 07:00 BP 135/58 10/13/21 07:00 Pulse Ox 89 L 10/13/21 07:00 Intake & Output 10/12/21 10/13/21 10/13/21 18:59 06:59 18:59 Intake Total 2717.883 5168.184 157.95 Output Total 405 734 35 Balance 788.022 656.184 122.95 Weight 94.5 kg Intake: IV 373 343 20 .9 240 240 20 Cefepime 2 gm In Sodium 100 100 Chloride 0.9% 100 ml @ 25 mls/hr IVPB Q8HR [facility] Rx# :[id number] pressure bag 33 3 Intake, IV Titration 430.022 837.184 127.95 Amount Cisatracurium 200 mg In 197.714 180.342 Sodium Chloride 0.9% 180 ml @ 1 MCG/KG/MIN 5.16 mls/hr IV .Q24H [facility] Rx#: [id number] Clevidipine Butyrate 25 1.067 39.267 42.9 mg In Empty Bag 1 bag @ 1 MG/HR 2 mls/hr IV .Q24H [facility] Rx#:[id number] Norepinephrine 8 mg In 33.951 22.064 Sodium Chloride 0.9% 250 ml @ 0.05 MCG/KG/MIN 9. 143 mls/hr IV .Q24H [facility] Rx#:[id number] fentaNYL (PF) 2,500 mcg 250 In Sodium Chloride 0.9% 200 ml @ 0.5 MCG/KG/HR 4. 6 mls/hr IV .Q24H [facility] Rx# :[id number] propofoL 1,000 mg In 197.290 345.511 85.05 Empty Bag 1 bag @ Titrate IV .Q0M [facility] Rx#: [id number] Tube Feeding 50 120 10 Blood Product 310 Rc As-1 Unit 310 [id number] Other 30 90 Output: Chest Tube Drainage 39 Chest Tube Left Lateral 13 Chest Chest Tube Right Lateral 26 Chest Urine 405 695 35 Other: Voiding Method Indwelling Catheter Indwelling Catheter ABP, PAP, CO, CI - Last Documented Arterial Blood Pressure 143/50 - Exam No acute distress, sedated and paralyzed, with an orally placed endotracheal tube and nasogastric tube. Saturations are 97 %. HEENT examination is grossly unremarkable. Neck supple. Full range of motion. No adenopathy thyromegaly or neck vein distention. Cardiovascular examination reveals regular rhythm rate. S1-S2 normal. No S3 or S4. No discernible murmur noted. Heart rate 79 bpm. Heart sounds are distant. Lungs reveal coarse bilateral rhonchi. Breath sounds are equal bilaterally. No wheezes. No crackles. Saturations are 99%. The patient has bilateral chest tubes. Abdomen soft, without bowel sounds. No masses. Extremities are intact. No cyanosis clubbing or edema. Skin is without rash or lesion. Neurologic examination cannot be assessed as the patient is currently sedated and paralyzed. - Labs CBC & Chem 7: 10/13/21 04:13 10/13/21 04:13 Labs: Abnormal Lab Results - Last 24 Hours (Table) 10/12/21 10/12/21 10/12/21 Range/Units 02:23 07:20 11:47 WBC 14.4 H (3.8-10.6) k/uL RBC 2.63 L (3.80-5.40) m/uL Hgb 7.7 L (11.4-16.0) gm/dL Hct 23.3 L (34.0-46.0) % RDW 17.5 H (11.5-15.5) % Neutrophils # 11.2 H (1.3-7.7) k/uL Lymphocytes # (1.0-4.8) k/uL ABG pCO2 (35-45) mmHg ABG HCO3 (21-25) mmol/L ABG Total CO2 (19-24) mmol/L ABG O2 Saturation (94-97) % Carbon Dioxide 36 H (22-30) mmol/L BUN 30 H (7-17) mg/dL Glucose 125 H (74-99) mg/dL POC Glucose (mg/dL) (75-99) mg/dL Calcium 8.2 L (8.4-10.2) mg/dL Total Protein 4.7 L (6.3-8.2) g/dL Albumin 2.4 L (3.5-5.0) g/dL Crossmatch See Detail 10/12/21 10/12/21 10/12/21 Range/Units 12:02 16:58 18:48 WBC 14.9 H (3.8-10.6) k/uL RBC 2.76 L (3.80-5.40) m/uL Hgb 7.9 L (11.4-16.0) gm/dL Hct 24.7 L (34.0-46.0) % RDW 17.9 H (11.5-15.5) % Neutrophils # 13.0 H (1.3-7.7) k/uL Lymphocytes # 0.9 L (1.0-4.8) k/uL ABG pCO2 (35-45) mmHg ABG HCO3 (21-25) mmol/L ABG Total CO2 (19-24) mmol/L ABG O2 Saturation (94-97) % Carbon Dioxide (22-30) mmol/L BUN (7-17) mg/dL Glucose (74-99) mg/dL POC Glucose (mg/dL) 128 H 172 H (75-99) mg/dL Calcium (8.4-10.2) mg/dL Total Protein (6.3-8.2) g/dL Albumin (3.5-5.0) g/dL Crossmatch 10/12/21 10/13/21 10/13/21 Range/Units 23:05 04:13 04:13 WBC 18.0 H (3.8-10.6) k/uL RBC 2.56 L (3.80-5.40) m/uL Hgb 7.3 L (11.4-16.0) gm/dL Hct 22.8 L (34.0-46.0) % RDW 18.4 H (11.5-15.5) % Neutrophils # 15.1 H (1.3-7.7) k/uL Lymphocytes # (1.0-4.8) k/uL ABG pCO2 (35-45) mmHg ABG HCO3 (21-25) mmol/L ABG Total CO2 (19-24) mmol/L ABG O2 Saturation (94-97) % Carbon Dioxide 32 H (22-30) mmol/L BUN 27 H (7-17) mg/dL Glucose 106 H (74-99) mg/dL POC Glucose (mg/dL) 133 H (75-99) mg/dL Calcium 8.1 L (8.4-10.2) mg/dL Total Protein (6.3-8.2) g/dL Albumin (3.5-5.0) g/dL Crossmatch 10/13/21 10/13/21 Range/Units 05:17 05:25 WBC (3.8-10.6) k/uL RBC (3.80-5.40) m/uL Hgb (11.4-16.0) gm/dL Hct (34.0-46.0) % RDW (11.5-15.5) % Neutrophils # (1.3-7.7) k/uL Lymphocytes # (1.0-4.8) k/uL ABG pCO2 50 H (35-45) mmHg ABG HCO3 34 H (21-25) mmol/L ABG Total CO2 35 H (19-24) mmol/L ABG O2 Saturation 98.1 H (94-97) % Carbon Dioxide (22-30) mmol/L BUN (7-17) mg/dL Glucose (74-99) mg/dL POC Glucose (mg/dL) 102 H (75-99) mg/dL Calcium (8.4-10.2) mg/dL Total Protein (6.3-8.2) g/dL Albumin (3.5-5.0) g/dL Crossmatch Assessment and Plan Assessment: Acute hypoxemic respiratory failure secondary to coronavirus associated pneumonia, status post intubation, and mechanical ventilation on 09/25/2021. No evidence of pulmonary embolism on CT angiogram. Acute bilateral pneumothoraces, status post bilateral chest tube placements, on 10/11/2021. Acute blood loss anemia. Extensive subcutaneous emphysema, as a complication of mechanical ventilation and coronavirus associated pneumonia. Acute deep vein thrombosis. Mild transaminitis secondary to coronavirus infection. Primary hypercoagulable state in the form of Leiden factor deficiency/factor V deficiency. Prior history of DVT. History of fibromyalgia. History of arthritis. History of degenerative disc disease. Lifelong non-tobacco user. Plan: Plan dated 09/24/2021. The patient is not a candidate for REM, and she's had symptoms for more than 7 days. Actually sees, symptoms date back to September 10. 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 The patient does qualify for Decadron. In addition, the patient should be on vitamin C, vitamin D3, and zinc. Additional recommendations and suggestions are forthcoming. Prognosis is guarded. The patient is currently on Levaquin. That may disqualify her from [facility]. Plan dated 09/25/2021. The patient's blood gases suggests worsening respiratory status, and therefore, the patient was transferred down to the intensive care unit. The patient was on saline, at 50 mL an hour. Blood gases again showed a pO2 of only 49, and a pCO2 32, with a pH is 7.42. This is on BiPAP, at 100%. I did speak to her and her about the fact that she may require intubation and mechanical ventilation, before the end of the day. She will continue on Coumadin, as well as Decadron, and vitamins. The patient was placed on Levaquin. Her pro- calcitonin level was elevated. This likely disqualifies her for [facility]. We will continue to follow and make recommendations where appropriate. Prognosis is certainly guarded. Plan dated 09/26/2021. The patient was intubated and mechanically ventilated yesterday. A right radial art line was placed as was a left-sided triple-lumen catheter. The patient's currently sedated and paralyzed. Tube feedings will start today. She did get fluid resuscitation yesterday. She remains on a small dose of norepinephrine. The patient will have labs ordered for the morning including a CBC, basic metabolic profile, and blood gas. The patient remains on Coumadin. In addition, the patient will have a chest x-ray ordered for the morning. Tube feedings will be started today. Prognosis is guarded. We will continue to follow and make recommendations where appropriate. Prognosis is certainly very guarded. Plan dated 10/11/2021. Labs, x-rays, and medications are reviewed. A left-sided chest tube was placed by our team today. In addition, surgery has been consulted for possible tracheostomy and PEG tube placement. The patient remains on propofol, fentanyl, and Nimbex. The patient is on the mechanical ventilator, on 90% FiO2 and PEEP of 16. Additional recommendations and suggestions are forthcoming. Tube feedings are currently going to be placed on hold for possible tracheostomy and PEG tube placement. We will continue to follow and make recommendations where appropriate. Plan dated 10/12/2021. The patient developed bilateral pneumothoraces, and required bilateral chest tube placements, on October 11. There is some bleeding from the left-sided chest tube. The patient did receive vitamin K, fresh shows some plasma, and 4 factor prothrombin complex concentrate. In addition, the patient is going to r eceive 1 unit of packed red blood cells. I asked the nurse to call the surgeon to delay surgery. I was able to speak to the patient's , Taco. He is going to talk to the rest of the family about CODE STATUS and whether or not they wish to withdrawal of I support. I spoke to him for about 20 minutes on the phone. The patient remains on propofol, fentanyl, Nimbex, and norepinephrine. Prognosis is poor. We will continue to follow and make recommendations where appropriate. Plan dated 10/13/2021. The patient hopefully will proceed to tracheostomy and PEG tube placement. The patient's currently much more stable today than she was yesterday. We did talk to the about CODE STATUS. He has not made any decision as yet. The patient remains on Nimbex, propofol, and fentanyl. The patient is also receiving Cleveprex for elevated blood pressure. We will continue to follow pr mitchell recommendations where appropriate. Prognosis is guarded. Labs, x-rays, and medications are all reviewed. Time with Patient: Greater than 30
[2021-10-13 12:01] LABS: Glucose,Whole Blood 169 mg/dL (75-99)
[2021-10-13] MEDS: FLUCONAZOLE IN NACL,ISO-OSM 100 MG in SALINE 1 50ML.BAG IVPB SCH (12:19)
[2021-10-13] MEDS: LACTATED RINGERS 1,000 ML IV SCH (12:19)
--- NOTE | 2021-10-13 13:17 | P.PN ---
<Lexx,Renee - Last Filed: 10/13/21 13:12> Subjective Progress Note Date: 10/13/21 CHIEF COMPLAINT: Shortness of breath, COVID-19 infection HISTORY OF PRESENT ILLNESS: A 61-year-old female who is admitted to the ICU and was intubated on 09/25/2021 from complications related to COVID-19 pneumonia and acute respiratory distress syndrome. Patient has remained mechanically ventilated and sedated. Patient was seen and examined in the ICU as a follow- up. She continues to have a chest tube in place bilaterally. She has had some improvement through the night. No further bleeding from her chest tube sites. Hemoglobin is stable at 7.3. FiO2 60%, PEEP 16. She remains on Levophed, Nimbex. Cosmetician discussed with family patient's poor prognosis yesterday, however family would like to keep patient a full code and proceed with care including PEG tube placement and tracheostomy placement. PHYSICAL EXAM: VITAL SIGNS: Reviewed. GENERAL: Sedated on mechanical ventilation. HEENT: No sclera icterus. Head is atraumatic, normocephalic. Facial and neck and chest swelling. CHEST: Left and right chest tube in place. ABDOMEN: Soft. Nondistended. Nontender. NEUROLOGIC: Sedated and intubated. ASSESSMENT: 1. Acute hypoxic respiratory failure secondary to COVID-19 pneumonia and co mplicated with ARDS currently intubated and on enteral nutrition 2. Requiring tracheostomy and gastrostomy tube secondary to above 3. Left lower extremity DVT currently on Eliquis, now on hold 4. Pneumothorax with bilateral chest tubes 5. Acute blood loss anemia secondary to chest tube PLAN: 1. Continue symptomatic and supportive care 2. Hold Eliquis 3. PEG tube and tracheostomy placement scheduled for tomorrow The impression and plan of care has been dictated as directed. I performed a history and examination of this patient, discussed the same with the dictator. I agree with the dictator's note ,documented as a scribe. Any additional findings or plans will be noted. Objective - Vital Signs Vital signs: Vital Signs Temp 97.6 F 10/13/21 12:00 Pulse 85 10/13/21 13:00 Resp 30 H 10/13/21 13:00 BP 128/62 10/13/21 13:00 Pulse Ox 88 L 10/13/21 13:00 Intake & Output 10/12/21 10/13/21 10/13/21 18:59 06:59 18:59 Intake Total 3419.961 7558.184 657.95 Output Total 805 828 8108 Balance 788.022 656.184 -607.05 Weight 94.5 kg Intake: IV 373 343 220 .9 240 240 120 Cefepime 2 gm In Sodium 100 100 100 Chloride 0.9% 100 ml @ 25 mls/hr IVPB Q8HR [facility] Rx# :[id number] pressure bag 33 3 Intake, IV Titration 430.022 837.184 277.95 Amount Cisatracurium 200 mg In 197.714 180.342 Sodium Chloride 0.9% 180 ml @ 1 MCG/KG/MIN 5.16 mls/hr IV .Q24H [facility] Rx#: [id number] Clevidipine Butyrate 25 1.067 39.267 92.9 mg In Empty Bag 1 bag @ 1 MG/HR 2 mls/hr IV .Q24H [facility] Rx#:[id number] Norepinephrine 8 mg In 33.951 22.064 Sodium Chloride 0.9% 250 ml @ 0.05 MCG/KG/MIN 9. 143 mls/hr IV .Q24H [facility] Rx#:[id number] fentaNYL (PF) 2,500 mcg 250 In Sodium Chloride 0.9% 200 ml @ 0.5 MCG/KG/HR 4. 6 mls/hr IV .Q24H [facility] Rx# :[id number] propofoL 1,000 mg In 197.290 345.511 185.05 Empty Bag 1 bag @ Titrate IV .Q0M [facility] Rx#: [id number] Tube Feeding 50 120 70 Blood Product 310 Rc As-1 Unit 310 [id number] Other 30 90 90 Output: Chest Tube Drainage 39 Chest Tube Left Lateral 13 Chest Chest Tube Right Lateral 26 Chest Urine 229 632 2459 Other: Voiding Method Indwelling Catheter Indwelling Catheter Indwelling Catheter ABP, PAP, CO, CI - Last Documented Arterial Blood Pressure 131/51 - Labs CBC & Chem 7: 10/13/21 04:13 10/13/21 04:13 Labs: Abnormal Lab Results - Last 24 Hours (Table) 10/12/21 10/12/21 10/12/21 Range/Units 16:58 18:48 23:05 WBC 14.9 H (3.8-10.6) k/uL RBC 2.76 L (3.80-5.40) m/uL Hgb 7.9 L (11.4-16.0) gm/dL Hct 24.7 L (34.0-46.0) % RDW 17.9 H (11.5-15.5) % Neutrophils # 13.0 H (1.3-7.7) k/uL Lymphocytes # 0.9 L (1.0-4.8) k/uL ABG pCO2 (35-45) mmHg ABG HCO3 (21-25) mmol/L ABG Total CO2 (19-24) mmol/L ABG O2 Saturation (94-97) % Carbon Dioxide (22-30) mmol/L BUN (7-17) mg/dL Glucose (74-99) mg/dL POC Glucose (mg/dL) 172 H 133 H (75-99) mg/dL Calcium (8.4-10.2) mg/dL 10/13/21 10/13/21 10/13/21 Range/Units 04:13 04:13 05:17 WBC 18.0 H (3.8-10.6) k/uL RBC 2.56 L (3.80-5.40) m/uL Hgb 7.3 L (11.4-16.0) gm/dL Hct 22.8 L (34.0-46.0) % RDW 18.4 H (11.5-15.5) % Neutrophils # 15.1 H (1.3-7.7) k/uL Lymphocytes # (1.0-4.8) k/uL ABG pCO2 50 H (35-45) mmHg ABG HCO3 34 H (21-25) mmol/L ABG Total CO2 35 H (19-24) mmol/L ABG O2 Saturation 98.1 H (94-97) % Carbon Dioxide 32 H (22-30) mmol/L BUN 27 H (7-17) mg/dL Glucose 106 H (74-99) mg/dL POC Glucose (mg/dL) (75-99) mg/dL Calcium 8.1 L (8.4-10.2) mg/dL 10/13/21 10/13/21 Range/Units 05:25 11:59 WBC (3.8-10.6) k/uL RBC (3.80-5.40) m/uL Hgb (11.4-16.0) gm/dL Hct (34.0-46.0) % RDW (11.5-15.5) % Neutrophils # (1.3-7.7) k/uL Lymphocytes # (1.0-4.8) k/uL ABG pCO2 (35-45) mmHg ABG HCO3 (21-25) mmol/L ABG Total CO2 (19-24) mmol/L ABG O2 Saturation (94-97) % Carbon Dioxide (22-30) mmol/L BUN (7-17) mg/dL Glucose (74-99) mg/dL POC Glucose (mg/dL) 102 H 169 H (75-99) mg/dL Calcium (8.4-10.2) mg/dL <Pedrito Nelson - Last Filed: 10/14/21 13:47> Subjective I have personally seen and examined the patient, reviewed the [employer] /PAs history, exam and MDM and agree with the assessment and plan as written. Based on total visit time, I have performed more than 50% of the visit. As above. Patient has had some improvement in her pulmonary status. Remains on the schedule for tracheostomy and PEG tube placement tomorrow. Objective - Vital Signs Vital signs: Vital Signs Temp 97.4 F L 10/14/21 12:00 Pulse 93 10/14/21 13:00 Resp 30 H 10/14/21 13:00 BP 127/68 10/14/21 12:00 Pulse Ox 97 10/14/21 13:00 Intake & Output 10/13/21 10/14/21 10/14/21 18:59 06:59 18:59 Intake Total 1268.027 918.108 657.033 Output Total 9838 838 4300 Balance -621.973 198.108 -942.967 Weight 96 kg Intake: IV 358 276 313 .9 240 240 120 Cefepime 2 gm In Sodium 100 75 Chloride 0.9% 100 ml @ 25 mls/hr IVPB Q8HR [facility] Rx# :[id number] Fluconazole in NaCl,Iso- 100 Osm 100 mg In Saline 1 50ml.bag @ 50 mls/hr IVPB DAILY@1200 [facility] Rx#: [id number] pressure bag 18 36 18 Intake, IV Titration 690.027 602.108 344.033 Amount Cisatracurium 200 mg In 185.502 Sodium Chloride 0.9% 180 ml @ 1 MCG/KG/MIN 5.16 mls/hr IV .Q24H [facility] Rx#: [id number] Clevidipine Butyrate 25 240.567 50 44.033 mg In Empty Bag 1 bag @ 1 MG/HR 2 mls/hr IV .Q24H [facility] Rx#:[id number] Norepinephrine 8 mg In 14.628 Sodium Chloride 0.9% 250 ml @ 0.05 MCG/KG/MIN 9. 143 mls/hr IV .Q24H [facility] Rx#:[id number] Potassium Chloride 10 meq 100 In Water For Injection 1 100ml.bag @ 100 mls/hr IVPB Q1HR [facility] Rx#: [id number] fentaNYL (PF) 2,500 mcg 239.2 In Sodium Chloride 0.9% 200 ml @ 0.5 MCG/KG/HR 4. 6 mls/hr IV .Q24H [facility] Rx# :[id number] propofoL 1,000 mg In 263.958 298.28 200 Empty Bag 1 bag @ Titrate IV .Q0M [facility] Rx#: [id number] Tube Feeding 130 40 Other 90 Output: Chest Tube Drainage 5 0 Chest Tube Left Lateral 5 0 Chest Chest Tube Right Lateral 0 Chest Urine 2539 701 2303 Other: Voiding Method Indwelling Catheter Indwelling Catheter Indwelling Catheter ABP, PAP, CO, CI - Last Documented Arterial Blood Pressure 157/68 - Labs CBC & Chem 7: 10/14/21 08:40 10/14/21 08:40 Labs: Abnormal Lab Results - Last 24 Hours (Table) 10/13/21 10/13/21 10/14/21 Range/Units 17:55 23:46 05:50 WBC (3.8-10.6) k/uL RBC (3.80-5.40) m/uL Hgb (11.4-16.0) gm/dL Hct (34.0-46.0) % RDW (11.5-15.5) % Neutrophils # (1.3-7.7) k/uL Monocytes # (0-1.0) k/uL ABG pCO2 57 H (35-45) mmHg ABG pO2 53 L* (83-108) mmHg ABG HCO3 34 H (21-25) mmol/L ABG Total CO2 36 H (19-24) mmol/L ABG O2 Saturation 86.6 L (94-97) % Potassium (3.5-5.1) mmol/L Carbon Dioxide (22-30) mmol/L BUN (7-17) mg/dL Glucose (74-99) mg/dL POC Glucose (mg/dL) 191 H 111 H (75-99) mg/dL 10/14/21 10/14/21 10/14/21 Range/Units 06:09 08:40 08:40 WBC 21.7 H (3.8-10.6) k/uL RBC 3.00 L (3.80-5.40) m/uL Hgb 8.7 L (11.4-16.0) gm/dL Hct 27.4 L (34.0-46.0) % RDW 18.6 H (11.5-15.5) % Neutrophils # 17.4 H (1.3-7.7) k/uL Monocytes # 1.3 H (0-1.0) k/uL ABG pCO2 (35-45) mmHg ABG pO2 (83-108) mmHg ABG HCO3 (21-25) mmol/L ABG Total CO2 (19-24) mmol/L ABG O2 Saturation (94-97) % Potassium 3.4 L (3.5-5.1) mmol/L Carbon Dioxide 35 H (22-30) mmol/L BUN 25 H (7-17) mg/dL Glucose 111 H (74-99) mg/dL POC Glucose (mg/dL) 118 H (75-99) mg/dL 10/14/21 Range/Units 11:31 WBC (3.8-10.6) k/uL RBC (3.80-5.40) m/uL Hgb (11.4-16.0) gm/dL Hct (34.0-46.0) % RDW (11.5-15.5) % Neutrophils # (1.3-7.7) k/uL Monocytes # (0-1.0) k/uL ABG pCO2 (35-45) mmHg ABG pO2 (83-108) mmHg ABG HCO3 (21-25) mmol/L ABG Total CO2 (19-24) mmol/L ABG O2 Saturation (94-97) % Potassium (3.5-5.1) mmol/L Carbon Dioxide (22-30) mmol/L BUN (7-17) mg/dL Glucose (74-99) mg/dL POC Glucose (mg/dL) 110 H (75-99) mg/dL Assessment and Plan (1) Respiratory failure Current Visit: Yes Status: Acute Code(s): J96.90 - RESPIRATORY FAILURE, UNSP, UNSP W HYPOXIA OR HYPERCAPNIA SNOMED Code(s): 258842945
--- NOTE | 2021-10-13 16:43 | CDI ---
Documentation Clarification Form Date: 10/13/2021 04:31:19 PM From: Gracie HairstonGENEVIEVE biswas, CCDS Admit Date: 09/23/2021 09:19:00 PM Patient Name: Matti Estrella Visit Number: [id number] Discharge Date: ATTENTION: The Clinical Documentation Specialists (CDI) and [facility] Coding Staff appreciate your assistance in clarifying documentation. Please respond to the clarification below the line at the bottom and electronically sign. The CDI & [facility] Coding staff will review the response and follow-up if needed. Please note: Queries are made part of the Legal Health Record. If you have any questions, please contact the author of this message via ITS. Dr. Anand Garcia: Per the 10/13 Attending Physician Progress Note: Patient was scheduled for PEG and Trach placement with general surgery Dr. Nelson today although canceled as patient became hypotensive requiring Levophed along with acute blood loss anemia and hemoglobin dropped to 6.5 this morning requiring 1 unit of PRBC. Additional clarification regarding the patient's condition resulting in Hypotension requiring Vasopressors and Blood Transfusion. Patient history/risk factors per the 09/24 H/P: DVT, Clotting disorder: Factor V or Leiden Factor Deficiency on Coumadin, Fibromyalgia, Arthritis, Bronchitis, Pneumonia. Clinical Indicators: Presented to the ED on 09/23 via EMS with SOB. Admit with Pneumonia due to COVID 19 virus. 10/12 VS: T 97.4, P 58, R 30 (vent), BP 87/48, PO 100 (intubated/vent) 10/12 LAB: WBC 17.3, RBC 2.27, Hgb 6.5, Hct 20.4, Neut 14.1, [place] 1.1; APTT 20.6, D Dimer 0.92; CO2 36, BUN 30, Glucose 125, Calcium 8.2, Total Protein 4.7, Albumin 2.4 10/12 ABG: pCO2 58, pO2 74, HCO3 37, total CO 2 39 Treatment 10/12: Blood Transfusions: 2 Units FFP, 1 Unit PRBCs, IV Vit K 51 mls @ 100 mls/hr, IV Prothrombin Complex (Human) 504 mls/hr q9M, IV Na Cl 1,000 mls @ 999 ls/hr q1H, IV Levophed 258 mls @ 9.143 mls/hr q24H Please clarify the following: : [ x ] Septic Shock [ ] Hypovolemic Shock [ ] Hemorrhagic Shock [ ] Other, please specify [ ] Unable to determine (Template Last Revised: November 2020) MTDD
[2021-10-13 17:57] LABS: Glucose,Whole Blood 191 mg/dL (75-99)
[2021-10-13 23:47] LABS: Glucose,Whole Blood 111 mg/dL (75-99)
[2021-10-14] MEDS: INSULIN ASPART (NovoLOG) 100 UNIT/ML VIAL SQ SCH ×4 (00:27→18:54)
[2021-10-14] MEDS: CEFEPIME 2 GM in SODIUM CHLORIDE 0.9% 100 ML IVPB SCH ×2 (00:32→08:14)
[2021-10-14] MEDS: CLEVIDIPINE BUTYRATE 25 MG in EMPTY BAG 1 BAG IV SCH ×3 (01:00→22:37)
--- NOTE | 2021-10-14 01:12 | P.PN ---
Subjective Progress Note Date: 10/13/21 This is a 61-year-old female who was recently admitted with acute COVID-19 pneumonia with acute COVID-19 bilateral interstitial pneumonia and also with transaminitis and being closely monitored. Patient remains in the ICU and currently intubated and sedated with an FiO2 of 70% and PEEP is 18. 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 Patient did have a venous Doppler study done recently which showed left leg DVT and patient is maintained on Eliquis will continue. Patient also continues on empiric antibiotics and awaiting for sputum culture finalized. Patient was started on IV cefepime and will continue. Patient is also continued on oral dexamethasone along with vitamin and zinc supplements and will continue. Patient with some mild volume overload and given a dose of IV Lasix push today. 09/29/2021 Patient is seen and evaluated this morning continues to be closely monitored in the ICU and continues to be on mechanical ventilation and sedated. FiO2 was increased at 80% with a PEEP of 18 and oxygen saturations between 87-91%. Patient developing subcutaneous emphysema in the neck and chest wall area and chest x-ray today shows bilateral multifocal and confluent opacification is redemonstrated consistent with COVID-19 infection with a new small left apical pneumothorax estimated under 5% with new pneumomediastinum and recurrent overlying subcutaneous emphysema noted. Patient is white blood count mildly elevated at 16.1 and is continued on oral dexamethasone along with oral eliquis for anticoagulation. Patient continues to be on IV cefepime and blood and sputum cultures are negative thus far. 09/30/2021 Patient is seen today continues to be closely monitored in the ICU with multiple medical consultations following. Patient continues to be mechanically intubated and sedated with continued subcutaneous emphysema noted. Chest xray shows a trace left apical pneumothorax that is minimally smaller 7mm versus 1cm previously, extensive bilateral subcutaneous emphysema persists and diffuse interstitial changes and bilateral patchy opacities persist with slight improvement in aeration in the lower lungs. Per nursing staff corbin was clogged with copious amounts of white discharge and will add diflucan and corbin catheter has been changed and draining adequately. Patient continues on IV cefepime. Patient tolerating tube feeds and will continue. 10/01/2021 Patient is seen and evaluated in follow up this morning and continues to be closely monitored. Multiple medical consultations following and patient c ontinues to be on mechanical vent and sedated. Patient continues on IV Cefepime and diflucan. Patient chest xray today shows stable extensive subcutaneous emphysema, no pneumothorax, and patchy bilateral lung infiltrates remain present. INflammatory markers trending down. 10/04/2021 Patient is seen in follow-up continues to be closely monitored in the ICU. Patient remains on mechanical vent with an FI02 of 65% and peep is 18. Weaning trials being attempted with pulmonary aluminum molding machine operator following closely. Patient continues with extensive subq emphysema noted on exam. 10/05/2021 Patient Is seen and evaluated this morning with continued attempts at weaning and continues on mechanical vent and intubated with pulmonary aluminum molding machine operator following closely. Patient remains on Eliquis which will be held as surgery Dr. Nelson was consulted for possible PEG and trach tube placement for unsuccessful attempts at weaning from ventilation and prolonged hospitalization on mechanical vent. Chest x-ray today shows recurrent tiny left apical pneumothorax estimated under 5% with worsening overlying subcutaneous emphysema and again pneumomediastinum redemonstrated with multifocal confluent opacification's redemonstrated consistent with COVID-19 infection and/or arts are redemonstrated with no significant change from one day previously. Patient continues on FiO2 of 65% and PEEP was weaned down to 14 today. IV cefepime discontinued. 10/06/2021 Patient is seen in follow-up this morning per nursing staff patient had multiple runs of ectopy an irregular heart rate and rhythms with PVCs and cardiology consulted. Patient was placed on lidocaine drip and was originally on eliquis is currently on hold for possible PEG and trach placement with general surgery following. Patient had difficulty maintaining oxygen saturations and FiO2 was increased to 100% and PEEP continues at 14. Multiple medical consultations following and patient continues on oral steroids along with vitamin and zinc supplements along with fluconazole. Patient being started on IV Lasix daily and recommend close monitoring of electrolytes and kidney functions. 10/07/2021 Patient is seen in follow-up this morning continues to be monitored closely in the ICU with multiple medical consultations following. Patient is currently on mechanical vent with an FiO2 of 80% and PEEP is 16. General surgery also following for possible PEG and trach placement and will need to discuss with surgery about when this will occur. Patient remains on fluconazole. She also continues on vitamin and zinc supplements along with oral dexamethasone, clevidipine, Nimbex, IV Lasix, fentanyl and propofol and is off norepinephrine. Chest x-ray shows stable bilateral lung infiltrates. 10/08/2021 Patient is seen this morning continues to be on mechanical vent with an FiO2 of 85% and PEEP of 16. Patient continues with extensive subcutaneous emphysema and plans are for possible PEG and trach placement although on hold until possibly next week once more stable. Patient continues on Cleviprex along with fentanyl and propofol and is receiving IV Lasix daily. Patient also continues on lidocaine drip which is currently on hold and cardiology is following closely. Anticoagulant was resumed for now again until more stable to undergo PEG and trach placement. Chest x-ray today shows persistent bilateral multifocal and confluent increased opacification is with persistent overlying subcutaneous emphysema noted in pneumomediastinum is again redemonstrated. 10/09/2021 Patient evaluated today in ICU mechanical ventilation with FiO2 of 80%. Chest x-ray this morning shows similar multifocal airspace opacities and stable support lines and tubes. Similar subcutaneous emphysema scattered throughout the visualized thorax. PEG and trach plan for next week once more stable. Current meds include Cleviprex, Nimbex, fentanyl, propofol. She is receiving IV fluconazole, as well as IV Lasix. Levophed and Lidocaine gtt;s are on hold. Positive bowel sounds. Current vitals afebrile, heart rate 71, blood pressure 135/60 and oxygen saturation is 93%. Respirations 30. Labs today, white count 17, hemoglobin 11.6, sodium 139, potassium 3.8, BUN 34, creatinine 0.91, CO2 33, calcium 8.7, ALT 54, albumin 2.8 with blood sugars in the 100s. 10/10/2021 Patient evaluated today in the ICU on the mechanical VENT with fio2 of 100%. Positive bowel movement today, Stage 2 pressure ulcer on coccyx per RN, optifoam ordered. Per RN they were unable to patient as she was desaturating. They're unable to wean Fi02 currently as she does desaturate with any time of movement. She was lying more on her right side during evaluation and pulse ox was dropping into high 80s she was being repositioned by nurses. Plan is to PEG/TRACH patient tomorrow. Last family update was 4 days ago. We will call and discuss case today. Patient is afebrile, heart rate 84, respirations 30, blood pressure 141/55, 92% oxygen saturation on 100% Fi02, which was increased today up from 70 Fi02%. Labs today show WBC of 15.6, hgbl 10.7, sodium 138, potassium 3.9, chloride 100, CO2 37, glucose 117, calcium 8.2. Chest xray today shows pneumonia, ARDS. 10/11/2021 Patient is seen and evaluated in follow-up this morning continues to be closely monitored in the ICU and patient is continued on FiO2 of 90% and PEEP is 16 with multiple medical consultations following. Chest x-ray today shows new left- sided pneumothorax estimated 10-20% with overlying subcutaneous emphysema and pneumomediastinum redemonstrated with bilateral multifocal and confluent op acification's redemonstrated consistent with COVID-19 infection and/or arts and no significant change from one day previous. Patient is status post left chest tube insertion with pulmonary aluminum molding machine operator. Cardiology following and patient is off lidocaine drip and maintaining sinus rhythm. Patient also continues on vitamin and zinc supplements along with oral dexamethasone and patient continues on IV Lasix 40 mg daily. Patient also continues off norepinephrine and is currently maintained on IV cefepime along with fluconazole. General surgery following as well and plan is for peg and trach placement in the am 10/12/2021 Patient is seen in the ICU this morning continues to be closely monitored by multiple medical consultations. Patient was scheduled for PEG and trach placement with general surgery Dr. Nelson today although canceled as patient became hypotensive requiring Levophed along with acute blood loss anemia and hemoglobin dropped to 6.5 this morning requiring 1 unit of PRBC. Patient continues with left chest tube with pneumothorax and chest x-ray today shows the jahaira is difficult to clearly identify on the present exam and the ET tube may be approximately 1 cm from the jahaira and there are bilateral chest tubes present with continued diffuse interstitial opacification is and more focal bibasilar opacification is with subcutaneous emphysema persists along the upper chest with slight improvement on the left. No appreciable pneumothorax noted. Patient having worsening right pleural effusion last night and received a right- sided chest tube with pulmonary aluminum molding machine operator. FiO2 is 90% and PEEP of 16. Again overall prognosis remains extremely poor and guarded. 10/13/2021 Patient is seen in follow-up this morning in the ICU with multiple medical consultations following. Lengthy discussion was had with pulmonary aluminum molding machine operator and family members and would like to continue with full CODE STATUS and plan is in place for PEG tube and tracheostomy placement tomorrow. Anticoagulant on hold and Dr. Nelson plans for surgery tomorrow. Patient continues on oral dexamethasone along with IV cefepime, vitamin and zinc supplements. Patient also continues on Cleviprex and Nimbex. Patient also continues on fentanyl and propofol and will continue. Chest x-ray today shows stable portable chest with bilateral chest tubes without sizable pneumothorax identified and continued subcutaneous air persists with persistent interstitial changes bilaterally with airspace disease in the bilateral lung bases that are unchanged. FiO2 is 60% and PEEP of 16. Review of systems: Unable to obtain as patient is mechanically intubated and sedated Labs: WBC is 18, hemoglobin is 7.3, platelets are 208, sodium is 138, potassium 3.6, BUN 27, creatinine 0.62, calcium 8.1 Active Medications Artificial Tears (Artificial Tears-Hypromellose Drops 15 Ml Btl) 2 drops BOTH EYES QID [facility] Last Admin: 10/13/21 12:20 Dose: 2 drops Documented by: Ascorbic Acid (Ascorbic Acid 500 Mg Tab) 500 mg PO BID [facility] Last Admin: 10/13/21 08:49 Dose: 500 mg Documented by: Chlorhexidine Gluconate (Chlorhexidine Gluconate 15 Ml Cup) 15 ml MUCOUS MEM BID [facility] Last Admin: 10/13/21 08:51 Dose: 15 ml Documented by: Dexamethasone (Dexamethasone 2 Mg Tab) 6 mg PO DAILY [facility] Last Admin: 10/13/21 08:49 Dose: 6 mg Documented by: Docusate Sodium (Docusate Oral Soln 100 Mg/10 Ml Cup) 100 mg PO DAILY PRN PRN Reason: Constipation Last Admin: 10/05/21 16:57 Dose: 100 mg Documented by: Ergocalciferol (Ergocalciferol 1,250 Mcg (50,000 Iu) Capsule) 1,250 mcg PO [facility] Last Admin: 10/10/21 08:06 Dose: 1,250 mcg Documented by: Furosemide (Furosemide 10 Mg/Ml 4 Ml Vial) 40 mg IV DAILY [facility] Last Admin: 10/13/21 08:48 Dose: 40 mg Documented by: Propofol 1,000 mg/ IV Solution 100 mls @ 0 mls/hr IV .Q0M [facility]; Protocol Last Admin: 10/13/21 13:16 Dose: 50 mcg/kg/min, 28.35 mls/hr Documented by: Cisatracurium Besylate 200 mg/ (Sodium Chloride) 200 mls @ 5.16 mls/hr IV .Q24H [facility]; Protocol Last Admin: 10/13/21 06:30 Dose: 3 mcg/kg/min, 15.48 mls/hr Documented by: Sodium Chloride (Saline 0.9%) 1,000 mls @ 20 mls/hr IV .Q24H [facility] Last Admin: 10/13/21 01:46 Dose: Not Given Documented by: Fentanyl Citrate 2,500 mcg/ (Sodium Chloride) 250 mls @ 4.6 mls/hr IV .Q24H [facility]; Protocol Last Admin: 10/13/21 02:52 Dose: 1 mcg/kg/hr, 9.2 mls/hr Documented by: Fluconazole/Sodium Chloride (100 mg/ IV Solution) 50 mls @ 50 mls/hr IVPB DAILY@1200 [facility] Last Admin: 10/13/21 12:19 Dose: 50 mls/hr Documented by: Clevidipine 25 mg/ IV Solution 50 mls @ 2 mls/hr IV .Q24H [facility]; Protocol Last Admin: 10/13/21 13:26 Dose: 11 mg/hr, 22 mls/hr Documented by: Cefepime HCl 2 gm/ Sodium (Chloride) 100 mls @ 25 mls/hr IVPB Q8HR [facility] Last Admin: 10/13/21 08:48 Dose: 25 mls/hr Documented by: Lactated Ringer's (Lactated Ringers) 1,000 mls @ 20 mls/hr IV .Q24H [facility] Last Admin: 10/13/21 12:19 Dose: 20 mls/hr Documented by: Norepinephrine Bitartrate 8 mg (/ Sodium Chloride) 258 mls @ 9.143 mls/hr IV .Q24H [facility]; Protocol Last Titration: 10/13/21 05:31 Dose: 0 mcg/kg/min, 0 mls/hr Documented by: Insulin Aspart (Insulin Aspart (Novolog) 100 Unit/Ml Vial) 0 unit SQ Q6HR [facility]; Protocol Last Admin: 10/13/21 12:19 Dose: 2 unit Documented by: Miscellaneous Information (Pneumonia Protocol Utilized 1 Each Misc) 1 each PO ONCE PRN PRN Reason: Per Protocol Miscellaneous Information (Potassium Replacement Protocol 1 Each Misc) 1 each MISCELLANE DAILY PRN; Protocol PRN Reason: Per Protocol Naloxone HCl (Naloxone 0.4 Mg/Ml 1 Ml Vial) 0.2 mg IV Q2M PRN PRN Reason: Opioid Reversal Pantoprazole Sodium (Pantoprazole 40 Mg/10 Ml Vial) 40 mg IV DAILY [facility] Last Admin: 10/13/21 08:48 Dose: 40 mg Documented by: Zinc Sulfate (Zinc Sulfate 220 Mg Cap) 220 mg PO DAILY [facility] Last Admin: 10/13/21 08:49 Dose: 220 mg Documented by: Physical Exam: Gen: This is a 61-year-old female currently sedated and intubated. mechanical ventilation Fio2 60% with a PEEP of 16 HEENT: Head is atraumatic, normocephalic. Pupils equal, round. Sclerae is anicteric. NECK: Supple. No JVD. No lymphadenopathy. No thyromegaly. subcutaneous emphysema noted in the neck and chest wall area bilaterally extensive. LUNGS: Diminished breath sounds bilaterally with coarse rhonchi and crackles noted. Left more diminished than right. No intercostal retractions. Bilateral chest tubes of the left and right HEART: S1, S2 are muffled ABDOMEN: Soft. Bowel sounds are present. No masses. No tenderness. EXTREMITIES: No pedal edema. No calf tenderness. Bilateral upper extremity edema noted NEUROLOGICAL: Patient is currently intubated and sedated Assessment: Acute COVID-19 infection with acute COVID-19 bilateral interstitial pneumonia with hypoxic hypercarbic respiratory failure on mechanical vent Subcutaneous emphysema of the neck and chest with a left pneumothorax 10-15% Left pneumothorax status post chest tube placement Right-sided pleural effusion with new small right pneumothorax status post chest tube placement Acute blood loss anemia secondary to bilateral chest tube placements with a drop in hemoglobin to 6.5 and was given 1 unit of PRBC, possible hypovolemic shock requiring pressor support Non-sustained ventricular tachycardia, currently sinus Acute left leg deep vein thrombosis Acute respiratory acidosis Primary hypercoagulable state and factor V week deficiency candidiasis secondary to prolonged indwelling Corbin catheter Mild transaminitis, possibly secondary to COVID-19 History of DVT History of degenerative joint disease History of fibromyalgia Acute respiratory acidosis Increased white blood count anemia, of undetermined etiology Elevated inflammatory markers of COVID-19 Obesity with a body mass index of 38.1 Full code Plan: Recommend to continue with current medications and follow along closely with multiple medical consultations. Prognosis remains extremely poor and guarded with multiple complex medical issues noted. Patient continues on mechanical ventilation and FiO2 60% with PEEP 16. Patient is status post bilateral chest tube placements of the left and right for bilateral pneumothorax. Patient was scheduled for PEG and trach placement and is tentatively planned for 10/14/21. Cardiology following and anticoagulant on hold for PEG and trach placement. Recommend to continue with current medications. Recommend repeat labs and continued close monitoring. Again due to multiple complex medical issues overall prognosis is extremely poor and quite guarded. Family to discuss further about CODE STATUS and treatment plan moving further. Family would like to continue full code and is agreeable to peg and trach. Aware of guarded prognosis. Objective - Vital Signs Vital signs: Vital Signs Temp 97.4 F L 10/13/21 04:00 Pulse 79 10/13/21 07:00 Resp 30 H 10/13/21 07:00 BP 135/58 10/13/21 07:00 Pulse Ox 89 L 10/13/21 07:00 Intake & Output 10/12/21 10/13/21 10/13/21 18:59 06:59 18:59 Intake Total 5650.191 4636.184 157.95 Output Total 405 734 35 Balance 788.022 656.184 122.95 Weight 94.5 kg Intake: IV 373 343 20 .9 240 240 20 Cefepime 2 gm In Sodium 100 100 Chloride 0.9% 100 ml @ 25 mls/hr IVPB Q8HR [facility] Rx# :[id number] pressure bag 33 3 Intake, IV Titration 430.022 837.184 127.95 Amount Cisatracurium 200 mg In 197.714 180.342 Sodium Chloride 0.9% 180 ml @ 1 MCG/KG/MIN 5.16 mls/hr IV .Q24H [facility] Rx#: [id number] Clevidipine Butyrate 25 1.067 39.267 42.9 mg In Empty Bag 1 bag @ 1 MG/HR 2 mls/hr IV .Q24H [facility] Rx#:[id number] Norepinephrine 8 mg In 33.951 22.064 Sodium Chloride 0.9% 250 ml @ 0.05 MCG/KG/MIN 9. 143 mls/hr IV .Q24H [facility] Rx#:[id number] fentaNYL (PF) 2,500 mcg 250 In Sodium Chloride 0.9% 200 ml @ 0.5 MCG/KG/HR 4. 6 mls/hr IV .Q24H [facility] Rx# :[id number] propofoL 1,000 mg In 197.290 345.511 85.05 Empty Bag 1 bag @ Titrate IV .Q0M [facility] Rx#: [id number] Tube Feeding 50 120 10 Blood Product 310 Rc As-1 Unit 310 [id number] Other 30 90 Output: Chest Tube Drainage 39 Chest Tube Left Lateral 13 Chest Chest Tube Right Lateral 26 Chest Urine 405 695 35 Other: Voiding Method Indwelling Catheter Indwelling Catheter ABP, PAP, CO, CI - Last Documented Arterial Blood Pressure 143/50 - Labs CBC & Chem 7: 10/13/21 04:13 10/13/21 04:13 Labs: Abnormal Lab Results - Last 24 Hours (Table) 10/12/21 10/12/21 10/12/21 Range/Units 02:23 07:20 11:47 WBC 14.4 H (3.8-10.6) k/uL RBC 2.63 L (3.80-5.40) m/uL Hgb 7.7 L (11.4-16.0) gm/dL Hct 23.3 L (34.0-46.0) % RDW 17.5 H (11.5-15.5) % Neutrophils # 11.2 H (1.3-7.7) k/uL Lymphocytes # (1.0-4.8) k/uL ABG pCO2 (35-45) mmHg ABG HCO3 (21-25) mmol/L ABG Total CO2 (19-24) mmol/L ABG O2 Saturation (94-97) % Carbon Dioxide (22-30) mmol/L BUN (7-17) mg/dL Glucose (74-99) mg/dL POC Glucose (mg/dL) (75-99) mg/dL Calcium (8.4-10.2) mg/dL Total Protein 4.7 L (6.3-8.2) g/dL Albumin 2.4 L (3.5-5.0) g/dL Crossmatch See Detail 10/12/21 10/12/21 10/12/21 Range/Units 12:02 16:58 18:48 WBC 14.9 H (3.8-10.6) k/uL RBC 2.76 L (3.80-5.40) m/uL Hgb 7.9 L (11.4-16.0) gm/dL Hct 24.7 L (34.0-46.0) % RDW 17.9 H (11.5-15.5) % Neutrophils # 13.0 H (1.3-7.7) k/uL Lymphocytes # 0.9 L (1.0-4.8) k/uL ABG pCO2 (35-45) mmHg ABG HCO3 (21-25) mmol/L ABG Total CO2 (19-24) mmol/L ABG O2 Saturation (94-97) % Carbon Dioxide (22-30) mmol/L BUN (7-17) mg/dL Glucose (74-99) mg/dL POC Glucose (mg/dL) 128 H 172 H (75-99) mg/dL Calcium (8.4-10.2) mg/dL Total Protein (6.3-8.2) g/dL Albumin (3.5-5.0) g/dL Crossmatch 10/12/21 10/13/21 10/13/21 Range/Units 23:05 04:13 04:13 WBC 18.0 H (3.8-10.6) k/uL RBC 2.56 L (3.80-5.40) m/uL Hgb 7.3 L (11.4-16.0) gm/dL Hct 22.8 L (34.0-46.0) % RDW 18.4 H (11.5-15.5) % Neutrophils # 15.1 H (1.3-7.7) k/uL Lymphocytes # (1.0-4.8) k/uL ABG pCO2 (35-45) mmHg ABG HCO3 (21-25) mmol/L ABG Total CO2 (19-24) mmol/L ABG O2 Saturation (94-97) % Carbon Dioxide 32 H (22-30) mmol/L BUN 27 H (7-17) mg/dL Glucose 106 H (74-99) mg/dL POC Glucose (mg/dL) 133 H (75-99) mg/dL Calcium 8.1 L (8.4-10.2) mg/dL Total Protein (6.3-8.2) g/dL Albumin (3.5-5.0) g/dL Crossmatch 10/13/21 10/13/21 Range/Units 05:17 05:25 WBC (3.8-10.6) k/uL RBC (3.80-5.40) m/uL Hgb (11.4-16.0) gm/dL Hct (34.0-46.0) % RDW (11.5-15.5) % Neutrophils # (1.3-7.7) k/uL Lymphocytes # (1.0-4.8) k/uL ABG pCO2 50 H (35-45) mmHg ABG HCO3 34 H (21-25) mmol/L ABG Total CO2 35 H (19-24) mmol/L ABG O2 Saturation 98.1 H (94-97) % Carbon Dioxide (22-30) mmol/L BUN (7-17) mg/dL Glucose (74-99) mg/dL POC Glucose (mg/dL) 102 H (75-99) mg/dL Calcium (8.4-10.2) mg/dL Total Protein (6.3-8.2) g/dL Albumin (3.5-5.0) g/dL Crossmatch
[2021-10-14] MEDS: SODIUM CHLORIDE 0.9% 1,000 ML IV SCH (04:50)
[2021-10-14] MEDS: fentaNYL (PF) 2,500 MCG in SODIUM CHLORIDE 0.9% 200 ML IV SCH (04:52)
[2021-10-14 05:54] LABS: ABG Base Excess 8.6 mmol/L; ABG HCO3 34 mmol/L (21-25); ABG Oxygen Saturation 86.6 % (94-97); ABG PCO2 57 mmHg (35-45); ABG PH 7.38 (7.35-7.45); ABG TCO2 36 mmol/L (19-24); Allen Test Performed? Yes
[2021-10-14 06:11] LABS: Glucose,Whole Blood 118 mg/dL (75-99)
[2021-10-14 06:13] LABS: ABG PO2 53 mmHg (83-108)
--- NOTE | 2021-10-14 07:44 | P.PN ---
Subjective Progress Note Date: 10/14/21 Principal diagnosis: Cardiac arrhythmia/COVID-19 pneumonia The patient is a 62-year-old female patient who was admitted to the intensive care unit with COVID-19 pneumonia and subsequently she developed acute hypoxic respiratory failure requiring intubation and mechanical ventilation. The infection was complicated by deep venous thrombosis. She has been untreated for long time right now. The patient was evaluated this morning. Unfortunately she continues to be intubated on mechanical ventilation. She continues to be a small dose of norepinephrine. She is in process of having tracheostomy and PEG tube later on today. For that reason anticoagulation are on hold at this point. Otherwise she has been maintaining normal sinus mechanism. No evidence of any ventricular arrhythmia anymore at this point. Objective - Vital Signs Vital signs: Vital Signs Temp 97.5 F L 10/14/21 04:00 Pulse 84 10/14/21 07:00 Resp 30 H 10/14/21 07:00 BP 123/67 10/13/21 19:00 Pulse Ox 92 L 10/14/21 07:00 Intake & Output 10/13/21 10/14/21 10/14/21 18:59 06:59 18:59 Intake Total 1268.027 918.108 Output Total 1890 720 Balance -621.973 198.108 Weight 96 kg Intake: IV 358 276 .9 240 240 Cefepime 2 gm In Sodium 100 Chloride 0.9% 100 ml @ 25 mls/hr IVPB Q8HR [facility] Rx# :[id number] pressure bag 18 36 Intake, IV Titration 690.027 602.108 Amount Cisatracurium 200 mg In 185.502 Sodium Chloride 0.9% 180 ml @ 1 MCG/KG/MIN 5.16 mls/hr IV .Q24H [facility] Rx#: [id number] Clevidipine Butyrate 25 240.567 50 mg In Empty Bag 1 bag @ 1 MG/HR 2 mls/hr IV .Q24H [facility] Rx#:[id number] Norepinephrine 8 mg In 14.628 Sodium Chloride 0.9% 250 ml @ 0.05 MCG/KG/MIN 9. 143 mls/hr IV .Q24H [facility] Rx#:[id number] fentaNYL (PF) 2,500 mcg 239.2 In Sodium Chloride 0.9% 200 ml @ 0.5 MCG/KG/HR 4. 6 mls/hr IV .Q24H [facility] Rx# :[id number] propofoL 1,000 mg In 263.958 298.28 Empty Bag 1 bag @ Titrate IV .Q0M [facility] Rx#: [id number] Tube Feeding 130 40 Other 90 Output: Chest Tube Drainage 5 Chest Tube Left Lateral 5 Chest Urine 1890 715 Other: Voiding Method Indwelling Catheter Indwelling Catheter ABP, PAP, CO, CI - Last Documented Arterial Blood Pressure 123/50 - Constitutional General appearance: Present: no acute distress - Labs CBC & Chem 7: 10/13/21 04:13 10/13/21 04:13 Labs: Abnormal Lab Results - Last 24 Hours (Table) 10/13/21 10/13/21 10/13/21 Range/Units 11:59 17:55 23:46 ABG pCO2 (35-45) mmHg ABG pO2 (83-108) mmHg ABG HCO3 (21-25) mmol/L ABG Total CO2 (19-24) mmol/L ABG O2 Saturation (94-97) % POC Glucose (mg/dL) 169 H 191 H 111 H (75-99) mg/dL 10/14/21 10/14/21 Range/Units 05:50 06:09 ABG pCO2 57 H (35-45) mmHg ABG pO2 53 L* (83-108) mmHg ABG HCO3 34 H (21-25) mmol/L ABG Total CO2 36 H (19-24) mmol/L ABG O2 Saturation 86.6 L (94-97) % POC Glucose (mg/dL) 118 H (75-99) mg/dL Assessment and Plan Assessment: Assessment #1 COVID-19 pneumonia #2 acute hypoxic respiratory failure #3 history of deep venous thrombosis #4 subcutaneous emphysema #5 ventricular arrhythmia in the term of nonsustained VT which has resolved Plan #1 continue the current medical regimen #2 hold oral anticoagulation because she is in process of having tracheostomy and PEG tube #3 follow-up with the patient
[2021-10-14] MEDS: CHLORHEXIDINE GLUCONATE 15 ML CUP MUCOUS MEM SCH ×2 (08:08→21:10)
[2021-10-14] MEDS: FUROSEMIDE 10 MG/ML 4 ML VIAL IV SCH (08:08)
[2021-10-14] MEDS: PANTOPRAZOLE 40 MG/10 ML VIAL IV SCH (08:08)
--- NOTE | 2021-10-14 08:32 | XR ---
EXAMINATION TYPE: XR chest 1V portable DATE OF EXAM: 10/14/2021 COMPARISON: 10/13/2021 INDICATION: Ventilated difficulty breathing TECHNIQUE: Single frontal view of the chest is obtained. FINDINGS: The heart size is upper limit of normal. The pulmonary vasculature is normal. Mild diffuse increased lung markings are present. This is improved from comparison. Endotracheal tube tip is above the jahaira. Nasogastric tube transverses the thorax. Left-sided chest tube is present. Right-sided PICC line is present with tip in superior vena cava region. Left central venous catheter is present with tip in superior vena cava. Right-sided chest tube is present. No pne umothorax is evident either side. Subcutaneous emphysema is present. IMPRESSION: 1. Improving infiltrate with bibasilar residual. Continued follow-up is recommended. 2. Multiple lines and catheters discussed above.
[2021-10-14 08:58] LABS: Anisocytosis Slight; Basophils # (A) 0.1 k/uL (0-0.2); Basophils % (A) 1 %; Eosinophils # (A) 0.4 k/uL (0-0.7); Eosinophils % (A) 2 %; HCT 27.4 % (34.0-46.0); HGB 8.7 gm/dL (11.4-16.0); Hypochromasia Marked; Lymphocytes # (A) 2.2 k/uL (1.0-4.8); Lymphocytes % (A) 10 %; MCH 28.9 pg (25.0-35.0); MCHC 31.7 g/dL (31.0-37.0); MCV 91.1 fL (80.0-100.0); Mean Platelet Volume 8.5; Monocytes # (A) 1.3 k/uL (0-1.0); Monocytes % (A) 6 %; Neutrophils # (A) 17.4 k/uL (1.3-7.7); Neutrophils % (A) 80 %; Platelet Count 279 k/uL (150-450); Poikilocytosis Slight; RDW 18.6 % (11.5-15.5); WBC 21.7 k/uL (3.8-10.6)
[2021-10-14 09:18] LABS: African American GFR (CKD) >90 (>60 ml/min/1.73 sqM); Anion Gap 0 mmol/L; Blood Urea Nitrogen 25 mg/dL (7-17); Calcium 8.4 mg/dL (8.4-10.2); Carbon Dioxide 35 mmol/L (22-30); Chloride 103 mmol/L (98-107); Glucose 111 mg/dL (74-99); Non-African American GFR(CKD) >90 (>60 ml/min/1.73 sqM); Potassium 3.4 mmol/L (3.5-5.1); Sodium 138 mmol/L (137-145)
[2021-10-14] MEDS: ARTIFICIAL TEARS-HYPROMELLOSE DROPS 15 ML BTL BOTH EYES SCH ×4 (09:47→21:10)
[2021-10-14] MEDS: ASCORBIC ACID 500 MG TAB PO SCH ×2 (09:47→21:10)
[2021-10-14] MEDS: NOREPINEPHRINE 8 MG in SODIUM CHLORIDE 0.9% 250 ML IV SCH (09:48)
[2021-10-14] MEDS: dexAMETHasone 2 MG TAB PO SCH (09:48)
[2021-10-14] MEDS: ZINC SULFATE 220 MG CAP PO SCH (09:48)
--- NOTE | 2021-10-14 10:44 | P.PN ---
Subjective Progress Note Date: 10/14/21 Principal diagnosis: Hypoxemic respiratory failure. Pulmonary consult dated 09/24/2021. 61-year-old female who states that she's been having symptoms, since September 10. The symptoms included shortness of breath, cough, fatigue, muscle aches, and generally just not feeling well. The patient is on vaccinated. She tested positive for coronavirus on September 23. Currently, she is on BiPAP with settings of 16/8, at 100%. Her primary care physician is Dr. Dionte Bal. The patient takes Coumadin chronically for her factor V or Leiden factor deficiency. Initially, on room air, her saturations were in the 70s, and on a nonrebreather, only got up into the mid 80s. In addition to the primary hypercoagulable state, she has a history of DVT, fibromyalgia, pneumonia, arthritis, and degenerative disc disease. She is a lifelong nonsmoker. She is getting saline at 50 mL an hour currently. White count 12.1, with a normal hemoglobin, hematocrit, and platelet count. PTT 24.2 INR 2.5, and d-dimer was 32.13. Sodium 1:30, potassium 3.1, chlorides 106, CO2 20, anion gap 12, BUN 47, and creatinine 1.5. Lactic acid was 1.5. AST was 95 with an ALT of 60. Pro-calcitonin level was 0.52. N-terminal proBNP is 259. Chest x-ray reveals diffuse bilateral infiltrates. CT angiogram was negative for pulmonary embolism, but did show diffuse infiltrates consistent with coronavirus pneumonia. Progress note dated 09/25/2021. 62-year-old female that I saw yesterday in consultation. She's been having coronavirus symptoms since September 10. The patient sees Dr. Dionte Bal as a primary. Yesterday, she was on BiPAP, at 16/8 and 100%. She was doing okay. Today, her saturations are quite low, she is much more tachypnea, and I decided to go ahead and move her to the ICU. The patient may require intubation and mechanical ventilation before the end of the day. CT angiogram was negative for pulmonary embolism. I did speak to her daughter, and her . White count 17.1, hemoglobin 11.9, hematocrit 37.5, platelet count 390,000. PTT is 33.3 INR is 3.5. Blood gases done on 100% show pO2 of only 49, pCO2 32, and a pH is 7.42. Sodium is 142, potassium 3.7, chlorides 113, CO2 21, anion gap 8, BUN 35, with a creatinine of 1.01. Progress note dated 09/26/2021. 62-year-old female, who was admitted with a diagnosis of hypoxemic respiratory failure secondary to coronavirus associated pneumonia. She's had coronavirus symptoms since September 10. Yesterday, she was transferred down to the intensive care unit for worsening respiratory status, and required intubation and mechanical ventilation. In addition, she had a central line placed and an arterial line placed yesterday. She remains on the ventilator, she is on the volume assist control mode, rate 26, tidal volume 400, FiO2 100%, and PEEP of 15. Arterial blood gases show pO2 of 82, pCO2 46, and a pH is 7.27. The patient's getting saline at 50 mL an hour, Nimbex at 1 mcg/kg/m, propofol at 50 mcg/kg/m, and norepinephrine at 2 mcg/m. Tube feedings have yet to be started. Chest x-ray shows a properly placed endotracheal tube, and diffuse bilateral infiltrates, which are essentially unchanged. White count 14.4, hemoglobin 10.5, hematocrit 32.4, and platelet count 250,000. PTT 34.5 with an INR 3.6. Sodium 143, potassium 4, chlorides 118, CO2 22, anion gap 3, BUN 27, and creatinine 0.95. LDH is 930. C-reactive protein is 16.2. CT angiogram was negative for pulmonary embolism. Reevaluated today on 10/08/21, patient remains in the ICU, intubated, mechanically ventilated, does not seem to be doing much better today. Patient is basically about the same, remains on assist control rate of 30 tidal volume 325 FiO2 is up to 85% PEEP remains at 16. Try to increase the PEEP, however there was a significant increase in her peak airway pressure and plateau pressure. Presently her peak airway pressure is 38, and plateau pressure is 34. Patient remains on propofol at 40 mcg/kg/m Nimbex of 0.5 but granted kilo per minute fentanyl 1 mcg/kg/h clevidipine 5 mg per hour. Chest x-ray is basically about the same, continues to show bilateral infiltrates and most likely underlying ARDS. Her labs showed WBC count of 13.0 hemoglobin 10.4. Electrolytes are normal renal profile is normal. ABG showed a pO2 of 61 pCO2 57 pH of 7.47. This was on 75%, and increase her FiO2 to 80% O2 saturation seems to be marginal on the monitor. Patient is off lidocaine drip today. Reevaluated today on 10/09/21, patient remains in the ICU, intubated and mechanically ventilated. Not much of the changes noted in the last few days, remains on assist control rate of 11/18/2024 FiO2 80% and PEEP of 16. ABG remains marginal, her pO2 is 62 pCO2 56 pH of 7.42. Patient remains on Nimbex at 3 mcg/kg/m fentanyl 1 mcg/kg/h propofol 40 mcg/kg/m, she is on clevidipine for milligrams per hour, IV fluids at KVO. Her WBC count is 17.1, and hemoglobin is 11.6. Electrolytes are normal and renal profile is normal. Chest x-ray continues to show multifocalopacities. And subcutaneous emphysema. No evidence of pneumothorax. Endotracheal tube, nasogastric tube and left central line are all in proper positions. Reevaluated today on 10/10/21, patient remains in the ICU, intubated and mechanically ventilated. She is presently on assist control rate of 30 tidal volume 325 FiO2 70% PEEP of 16. Her ABG showed a pO2 of 79 pCO2 48 pH of 7.50. Chest x-ray is basically showing no change. Continues to have bilateral infiltrates. Electrolytes are normal bicarb is 37 BUN is 35 creatinine 0.69 WBC count is 15.6 hemoglobin is 10.7. Patient remains on vital HPI 10 mL per hour. She is off level Prax, and her blood pressure seems to be relatively stable. Patient remains sedated and paralyzed, she is on propofol at 50 mcg/kg/m Nimbex at 3 mcg/kg/m fentanyl 12 mcg/kg/h, she is supposed to undergo tracheostomy and PEG tube placement next week, her Eliquis was restarted, needs to be placed on hold once the decision was made whether she is undergoing tracheostomy and PEG tube tomorrow by Dr. balbuena Progress note dated 10/11/2021. 61-year-old female admitted back on September 23. She came in with a diagnosis of coronavirus associated pneumonia. She came to the intensive care unit on the , and was intubated for respiratory failure on 09/25/2021. The patient remains on mechanical ventilator. The patient's on the volume assist control mode, rate 30, tidal volume 325, FiO2 90%, PEEP of 16. Blood gases show pO2 of 62, pCO2 of 51, and a pH is 7.47. The patient's getting saline at 20 mL an hour, propofol at 40 mcg/kg/m, fentanyl at 1 mcg/kg/h, Nimbex at 3 mcg/kg/m, and vital high protein at 10 mL an hour, which is goal. The patient's chest x-ray showed a left-sided pneumothorax, about 20-25%. A #[id number] chest tube was inserted today. Also, a fresh arterial line was placed today, and the left radial artery. White count 16.5, hemoglobin 10.6, hematocrit 34.5, platelet count 2 48,000. Sodium 136, potassium 3.6, chlorides 99, CO2 36, anion gap 1, BUN 32, with a creatinine 0.7. Microbiologic studies are all negative. Chest x-ray shows a very properly placed left-sided chest tube, with complete resolution of prior left-sided pneumothorax. Progress note dated 10/12/2021. 61-year-old female admitted back on 09/23/2021. She came in with a diagnosis of coronavirus associated pneumonia. The patient came to the intensive care unit on 09/25/2021, and was intubated on 09/25/2021 for worsening respiratory status. The patient remains on the mechanical ventilator. The patient was to have a tracheostomy and PEG tube placed today, but unfortunately, her hospital course is now been complicated by bilateral pneumothorax, requiring bilateral chest tube placements on October 11, and bleeding from the left chest tube site, since yesterday. That is despite the fact that the patient received fresh frozen plasma, vitamin K, and 4 factor prothrombin complex concentrate. Currently, the patient remains on the volume assist control, rate 30, tidal volume 325, FiO2 90%, and PEEP of 16. Blood gases show pO2 of 74, pCO2 of 58, and a pH is 7.41. The patient's on saline at KVO, propofol at 40 mics per kilogram per minute, Nimbex at 3 mcg/kg/m, fentanyl at 1 mcg/kg/h, norepinephrine at 2 mcg/m, and tube feeds are currently on hold. I did order 1 unit packed red blood cells. I told the nurse to call the physician, they canceled the anticipated surgery today. I was able to speak to the patient's , Taco, at [phone]. He was going to talk to the family about CODE STATUS, and possibly withdrawing life support. White count 17.3, hemoglobin 6.5, down from 10.1, hematocrit 20.4, and platelet count 194,000. PT 10.6 INR 1 PTT fibrinogen 326, and d-dimer is 0.92. Sodium 138, potassium 3.6, chlorides 101, CO2 36, anion gap 1, BUN 30, creatinine 0.69. Sputum is negative. Blood cultures are negative. Chest x-ray shows bilateral chest tubes, without pneumothorax, and diffuse patchy bilateral infiltrates. Progress note dated 10/13/2021. 61-year-old female, admitted back on 09/23/2021. She was admitted with a diagnosis of coronavirus associated pneumonia. He came to the intensive care unit on 09/25/2021, and was intubated on the same day for worsening respiratory status. She remains on mechanical ventilator. The patient was to have a trache ostomy and PEG tube placed, but that was put on hold. She did develop bilateral pneumothoraces, and required bilateral chest tube insertions. At one point, she was bleeding from the left chest tube site. That subsequently, has stopped. She remains on the ventilator, volume assist control, rate 30, tidal volume 325, FiO2 60%, and PEEP of 16. Blood gases show pO2 of 89, pCO2 of 50, and pH is 7. 44. The patient's currently on Nimbex at 3 mics per kilogram per minute, propofol at 50 mcg/kg/m, fentanyl 1 mcg/kg/h, Cleveprex at 11 mg an hour, saline at 20 mL an hour, and vital high protein at 10 mL an hour, which is goal. The tube feeds are currently on hold in anticipation of tracheostomy and PEG tube placement. White count 18, hemoglobin 7.3, hematocrit 22.8, and platelet count 208,000. Sodium 138, potassium 3.6, chlorides 104, CO2 32, anion gap 2, BUN 27, and creatinine 0.62. Microbiologic studies are negative. Chest x-ray shows bilateral chest tubes. No sizable pneumothorax is noted. Subcutaneous air persist. Persistent interstitial densities are noted bilaterally. Progress note dated 10/14/2021. 61-year-old female, admitted back on 09/23/2021. She was admitted with a diagnosis of coronavirus associated pneumonia. She came to the intensive care unit 2 days later, on September 25. She was intubated on the same day, for worsening hypoxemic respiratory failure. The patient is apparently scheduled to have a tracheostomy and PEG tube placement performed today. Tube feeds are on hold. She remains on the ventilator. She is on the volume assist control mode, rate 30, tidal volume 325, FiO2 70%, and PEEP of 16. Arterial blood gases on 60%, show pO2 of 53, pCO2 of 57, and pH is 7.38. The patient's on Cleveprex at 4 mg an hour, fentanyl 1.5 mcg/kg/h, Nimbex at 3 mcg/kg/m, propofol at 50 mcg/kg/m, and saline at KVO. The patient is again seen in room 253. White count was 21.7. Hemoglobin 8.7, hematocrit 27.4, and platelet count was normal. Sodium 138, potassium 3.4, chlorides 103, CO2 35, BUN 25, and creatinine 0.59. Chest x-ray shows improving bilateral infiltrates. Objective - Vital Signs Vital signs: Vital Signs Temp 97.5 F L 10/14/21 09:00 Pulse 75 10/14/21 10:00 Resp 30 H 10/14/21 10:00 BP 123/67 10/13/21 19:00 Pulse Ox 97 10/14/21 10:00 Intake & Output 10/13/21 10/14/21 10/14/21 18:59 06:59 18:59 Intake Total 1268.027 918.108 213.033 Output Total 1890 720 750 Balance -621.973 198.108 -536.967 Weight 96 kg Intake: IV 358 276 69 .9 240 240 60 Cefepime 2 gm In Sodium 100 Chloride 0.9% 100 ml @ 25 mls/hr IVPB Q8HR [facility] Rx# :[id number] pressure bag 18 36 9 Intake, IV Titration 690.027 602.108 144.033 Amount Cisatracurium 200 mg In 185.502 Sodium Chloride 0.9% 180 ml @ 1 MCG/KG/MIN 5.16 mls/hr IV .Q24H [facility] Rx#: [id number] Clevidipine Butyrate 25 240.567 50 44.033 mg In Empty Bag 1 bag @ 1 MG/HR 2 mls/hr IV .Q24H [facility] Rx#:[id number] Norepinephrine 8 mg In 14.628 Sodium Chloride 0.9% 250 ml @ 0.05 MCG/KG/MIN 9. 143 mls/hr IV .Q24H [facility] Rx#:[id number] fentaNYL (PF) 2,500 mcg 239.2 In Sodium Chloride 0.9% 200 ml @ 0.5 MCG/KG/HR 4. 6 mls/hr IV .Q24H [facility] Rx# :[id number] propofoL 1,000 mg In 263.958 298.28 100 Empty Bag 1 bag @ Titrate IV .Q0M [facility] Rx#: [id number] Tube Feeding 130 40 Other 90 Output: Chest Tube Drainage 5 Chest Tube Left Lateral 5 Chest Urine 1890 715 750 Other: Voiding Method Indwelling Catheter Indwelling Catheter ABP, PAP, CO, CI - Last Documented Arterial Blood Pressure 97/50 - Exam No acute distress, sedated and paralyzed, with an orally placed endotracheal tube and nasogastric tube. Saturations are 97 %. HEENT examination is grossly unremarkable. Neck supple. Full range of motion. No adenopathy thyromegaly or neck vein distention. Cardiovascular examination reveals regular rhythm rate. S1-S2 normal. No S3 or S4. No discernible murmur noted. Heart rate 75 bpm. Heart sounds are distant. Lungs reveal coarse bilateral rhonchi. Breath sounds are equal bilaterally. No wheezes. No crackles. Saturations are 99%. The patient has bilateral chest tubes. Abdomen soft, without bowel sounds. No masses. Extremities are intact. No cyanosis clubbing or edema. Skin is without rash or lesion. Neurologic examination cannot be assessed as the patient is currently sedated and paralyzed. - Labs CBC & Chem 7: 10/14/21 08:40 10/14/21 08:40 Labs: Abnormal Lab Results - Last 24 Hours (Table) 10/13/21 10/13/21 10/13/21 Range/Units 11:59 17:55 23:46 WBC (3.8-10.6) k/uL RBC (3.80-5.40) m/uL Hgb (11.4-16.0) gm/dL Hct (34.0-46.0) % RDW (11.5-15.5) % Neutrophils # (1.3-7.7) k/uL Monocytes # (0-1.0) k/uL ABG pCO2 (35-45) mmHg ABG pO2 (83-108) mmHg ABG HCO3 (21-25) mmol/L ABG Total CO2 (19-24) mmol/L ABG O2 Saturation (94-97) % Potassium (3.5-5.1) mmol/L Carbon Dioxide (22-30) mmol/L BUN (7-17) mg/dL Glucose (74-99) mg/dL POC Glucose (mg/dL) 169 H 191 H 111 H (75-99) mg/dL 10/14/21 10/14/21 10/14/21 Range/Units 05:50 06:09 08:40 WBC (3.8-10.6) k/uL RBC (3.80-5.40) m/uL Hgb (11.4-16.0) gm/dL Hct (34.0-46.0) % RDW (11.5-15.5) % Neutrophils # (1.3-7.7) k/uL Monocytes # (0-1.0) k/uL ABG pCO2 57 H (35-45) mmHg ABG pO2 53 L* (83-108) mmHg ABG HCO3 34 H (21-25) mmol/L ABG Total CO2 36 H (19-24) mmol/L ABG O2 Saturation 86.6 L (94-97) % Potassium 3.4 L (3.5-5.1) mmol/L Carbon Dioxide 35 H (22-30) mmol/L BUN 25 H (7-17) mg/dL Glucose 111 H (74-99) mg/dL POC Glucose (mg/dL) 118 H (75-99) mg/dL 10/14/21 Range/Units 08:40 WBC 21.7 H (3.8-10.6) k/uL RBC 3.00 L (3.80-5.40) m/uL Hgb 8.7 L (11.4-16.0) gm/dL Hct 27.4 L (34.0-46.0) % RDW 18.6 H (11.5-15.5) % Neutrophils # 17.4 H (1.3-7.7) k/uL Monocytes # 1.3 H (0-1.0) k/uL ABG pCO2 (35-45) mmHg ABG pO2 (83-108) mmHg ABG HCO3 (21-25) mmol/L ABG Total CO2 (19-24) mmol/L ABG O2 Saturation (94-97) % Potassium (3.5-5.1) mmol/L Carbon Dioxide (22-30) mmol/L BUN (7-17) mg/dL Glucose (74-99) mg/dL POC Glucose (mg/dL) (75-99) mg/dL Assessment and Plan Assessment: Acute hypoxemic respiratory failure secondary to coronavirus associated pneumonia, status post intubation, and mechanical ventilation on 09/25/2021, with anticipated tracheostomy and PEG tube placement on 10/14/2021. No evidence of pulmonary embolism on CT angiogram. Acute bilateral pneumothoraces, status post bilateral chest tube placements, on 10/11/2021. Acute blood loss anemia. Extensive subcutaneous emphysema, as a complication of mechanical ventilation and coronavirus associated pneumonia. Acute deep vein thrombosis. Mild transaminitis secondary to coronavirus infection. Primary hypercoagulable state in the form of Leiden factor deficiency/factor V deficiency. Prior history of DVT. History of fibromyalgia. History of arthritis. History of degenerative disc disease. Lifelong non-tobacco user. Plan: Plan dated 09/24/2021. The patient is not a candidate for REM, and she's had symptoms for more than 7 days. Actually sees, symptoms date back to September 10. 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 The patient does qualify for Decadron. In addition, the patient should be on vitamin C, vitamin D3, and zinc. Additional recommendations and suggestions are forthcoming. Prognosis is guarded. The patient is currently on Levaquin. That may disqualify her from [facility]. Plan dated 09/25/2021. The patient's blood gases suggests worsening respiratory status, and therefore, the patient was transferred down to the intensive care unit. The patient was on saline, at 50 mL an hour. Blood gases again showed a pO2 of only 49, and a pCO2 32, with a pH is 7.42. This is on BiPAP, at 100%. I did speak to her and her about the fact that she may require intubation and mechanical holly tilation, before the end of the day. She will continue on Coumadin, as well as Decadron, and vitamins. The patient was placed on Levaquin. Her pro-calcitonin level was elevated. This likely disqualifies her for [facility]. We will continue to follow and make recommendations where appropriate. Prognosis is certainly guarded. Plan dated 09/26/2021. The patient was intubated and mechanically ventilated yesterday. A right radial art line was placed as was a left-sided triple-lumen catheter. The patient's currently sedated and paralyzed. Tube feedings will start today. She did get fluid resuscitation yesterday. She remains on a small dose of norepinephrine. The patient will have labs ordered for the morning including a CBC, basic metabolic profile, and blood gas. The patient remains on Coumadin. In addition, the patient will have a chest x-ray ordered for the morning. Tube feedings will be started today. Prognosis is guarded. We will continue to follow and make recommendations where appropriate. Prognosis is certainly very guarded. Plan dated 10/11/2021. Labs, x-rays, and medications are reviewed. A left-sided chest tube was placed by our team today. In addition, surgery has been consulted for possible tracheostomy and PEG tube placement. The patient remains on propofol, fentanyl, and Nimbex. The patient is on the mechanical ventilator, on 90% FiO2 and PEEP of 16. Additional recommendations and suggestions are forthcoming. Tube feedings are currently going to be placed on hold for possible tracheostomy and PEG tube placement. We will continue to follow and make recommendations where appropriate. Plan dated 10/12/2021. The patient developed bilateral pneumothoraces, and required bilateral chest tube placements, on October 11. There is some bleeding from the left-sided chest tube. The patient did receive vitamin K, fresh shows some plasma, and 4 f actor prothrombin complex concentrate. In addition, the patient is going to receive 1 unit of packed red blood cells. I asked the nurse to call the surgeon to delay surgery. I was able to speak to the patient's , Taco. He is going to talk to the rest of the family about CODE STATUS and whether or not they wish to withdrawal of I support. I spoke to him for about 20 minutes on the phone. The patient remains on propofol, fentanyl, Nimbex, and norepinephrine. Prognosis is poor. We will continue to follow and make recommendations where appropriate. Plan dated 10/13/2021. The patient hopefully will proceed to tracheostomy and PEG tube placement. The patient's currently much more stable today than she was yesterday. We did talk to the about CODE STATUS. He has not made any decision as yet. The patient remains on Nimbex, propofol, and fentanyl. The patient is also r eceiving Cleveprex for elevated blood pressure. We will continue to follow make recommendations where appropriate. Prognosis is guarded. Labs, x-rays, and medications are all reviewed. Plan dated 10/14/2021. The patient should have a tracheostomy and PEG tube placed today. Currently, the patient remains on fentanyl, Nimbex, and propofol. In addition, the patient's on Cleveprex for blood pressure control. The patient's FiO2 was increased from 60% up to 70%, based on the blood gas today. We will continue to follow and make recommendations where appropriate. Labs, x-rays, and medication s are all reviewed. Prognosis is guarded. I did speak to the about CODE STATUS. The patient is full code for now. Time with Patient: Greater than 30
[2021-10-14] MEDS ORDERED: Potassium Replacement Protocol 1 EACH MISC MISCELLANE PRN ×3 (10:50→22:16)
[2021-10-14] MEDS ORDERED: POTASSIUM CHLORIDE 20 MEQ in WATER FOR INJECTION 1 100ML.BAG IVPB SCH (11:00)
[2021-10-14] MEDS ORDERED: POTASSIUM CHLORIDE 10 MEQ in WATER FOR INJECTION 1 100ML.BAG IVPB SCH (11:00)
[2021-10-14 11:32] LABS: Glucose,Whole Blood 110 mg/dL (75-99)
[2021-10-14] MEDS: FLUCONAZOLE IN NACL,ISO-OSM 100 MG in SALINE 1 50ML.BAG IVPB SCH (12:10)
[2021-10-14] MEDS: POTASSIUM CHLORIDE 10 MEQ in WATER FOR INJECTION 1 100ML.BAG IVPB SCH ×4 (13:00→18:10)
[2021-10-14] MEDS: LACTATED RINGERS 1,000 ML IV SCH (14:50)
[2021-10-14] MEDS: CISATRACURIUM 200 MG in SODIUM CHLORIDE 0.9% 180 ML IV SCH (15:00)
[2021-10-14] MEDS ORDERED: fentaNYL (PF) 50 MCG/ML 2 ML AMP ONE (15:50)
[2021-10-14] MEDS ORDERED: PHENYLEPHRINE-0.9% NACL SYG 1,000 MCG/10 ML SYRINGE ONE (15:50)
[2021-10-14] MEDS ORDERED: ROCURONIUM 10 MG/ML (5 ML VIAL) IV ONE (15:50)
[2021-10-14] MEDS ORDERED: SODIUM CHLORIDE 0.9% 1,000 ML IV ONE ×2 (16:13→17:10)
--- NOTE | 2021-10-14 17:49 | P.OP ---
Date of Procedure: 10/14/21 Procedure(s) Performed: PREOPERATIVE DIAGNOSIS: Respiratory failure, malnutrition POSTOPERATIVE DIAGNOSIS: Same PROCEDURE: Tracheostomy, EGD with PEG tube placement SURGEON: Leslie EBL: Minimal ANESTHESIA: General COMPLICATIONS: None OPERATIVE PROCEDURE: Patient was kept on her hospital bed in the supine pos ition. A shoulder roll was utilized. The neck was prepped and draped in usual sterile fashion. The skin was infiltrated with local anesthesia. A small cervical incision was created using the scalpel. Dissection through the subcutaneous fat and platysma layer took place using electrocautery. The underlying strap muscles were divided in the midline. The thyroid isthmus was divided using electrocautery as well. No bleeding was seen. The trachea was easily identified at this time. From the patient's x-ray I suspected the patient's balloon was distal to the third tracheal ring. Ventilation was held. A vertical tracheostomy was created using electrocautery. This went through the first and second tracheal ring. The student was utilized. Carefully the endotracheal tube was withdrawn just proximal to our tracheostomy. The 8-[place] Shiley nonfenestrated tracheostomy catheter was advanced under direct visualization into the trachea. This was then connected to the ventilator. Po sitive end tidal CO2 was confirmed. The tracheal ties were utilized. The tube was sutured to the skin superiorly using 2 separate 0 silk sutures. The skin was closed using 3-0 Vicryl sutures. A dressing was applied. The patient was kept in the supine position on the operating room table. The Olympus gastroscope was inserted into the oropharynx and passed under direct visualization to the region of the duodenum. No obstruction was seen. The pylorus was widely patent. The stomach was carefully inspected. The stomach was fully insufflated with air. The abdominal wall was inspected. The light was seen shining through the abdominal wall in the left upper quadrant. This site was chosen for PEG tube placement. The area was prepped in the usual sterile fashion. A small vertical incision was made using the scalpel. The Seldinger needle was advanced into the lumen of the stomach the wire was advanced. The wire was grasped with an endoscopic snare. The wire was pulled through the oropharynx. The catheter was then threaded over the guidewire and the guidewire and catheter were pulled anteriorly until the hub of the PEG tube catheter was seated against the anterior wall the stomach. The circular bolster was applied and tightened down. The endoscope was then readvanced into the stomach. There was no evidence of any bleeding and there was appropriate tightness on the bolster. The catheter was cut appropriately. The dual port feeding adapter was applied. DISPOSITION: Stable to ICU
[2021-10-14 18:36] LABS: Glucose,Whole Blood 91 mg/dL (75-99)
[2021-10-14] MEDS: POTASSIUM BICARBONATE/CIT AC 20 MEQ TABLET.EFF NG-TUBE SCH (22:47)
--- NOTE | 2021-10-14 23:13 | P.PN ---
Subjective Progress Note Date: 10/14/21 This is a 61-year-old female who was recently admitted with acute COVID-19 pneumonia with acute COVID-19 bilateral interstitial pneumonia and also with transaminitis and being closely monitored. Patient remains in the ICU and currently intubated and sedated with an FiO2 of 70% and PEEP is 18. 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 Patient did have a venous Doppler study done recently which showed left leg DVT and patient is maintained on Eliquis will continue. Patient also continues on empiric antibiotics and awaiting for sputum culture finalized. Patient was started on IV cefepime and will continue. Patient is also continued on oral dexamethasone along with vitamin and zinc supplements and will continue. Patient with some mild volume overload and given a dose of IV Lasix push today. 09/29/2021 Patient is seen and evaluated this morning continues to be closely monitored in the ICU and continues to be on mechanical ventilation and sedated. FiO2 was increased at 80% with a PEEP of 18 and oxygen saturations between 87-91%. Patient developing subcutaneous emphysema in the neck and chest wall area and chest x-ray today shows bilateral multifocal and confluent opacification is redemonstrated consistent with COVID-19 infection with a new small left apical pneumothorax estimated under 5% with new pneumomediastinum and recurrent overlying subcutaneous emphysema noted. Patient is white blood count mildly elevated at 16.1 and is continued on oral dexamethasone along with oral eliquis for anticoagulation. Patient continues to be on IV cefepime and blood and sputum cultures are negative thus far. 09/30/2021 Patient is seen today continues to be closely monitored in the ICU with multiple medical consultations following. Patient continues to be mechanically intubated and sedated with continued subcutaneous emphysema noted. Chest xray shows a trace left apical pneumothorax that is minimally smaller 7mm versus 1cm previously, extensive bilateral subcutaneous emphysema persists and diffuse interstitial changes and bilateral patchy opacities persist with slight improvement in aeration in the lower lungs. Per nursing staff corbin was clogged with copious amounts of white discharge and will add diflucan and corbin catheter has been changed and draining adequately. Patient continues on IV cefepime. Patient tolerating tube feeds and will continue. 10/01/2021 Patient is seen and evaluated in follow up this morning and continues to be closely monitored. Multiple medical consultations following and patient c ontinues to be on mechanical vent and sedated. Patient continues on IV Cefepime and diflucan. Patient chest xray today shows stable extensive subcutaneous emphysema, no pneumothorax, and patchy bilateral lung infiltrates remain present. INflammatory markers trending down. 10/04/2021 Patient is seen in follow-up continues to be closely monitored in the ICU. Patient remains on mechanical vent with an FI02 of 65% and peep is 18. Weaning trials being attempted with pulmonary research animal attendant following closely. Patient continues with extensive subq emphysema noted on exam. 10/05/2021 Patient Is seen and evaluated this morning with continued attempts at weaning and continues on mechanical vent and intubated with pulmonary research animal attendant following closely. Patient remains on Eliquis which will be held as surgery Dr. Nelson was consulted for possible PEG and trach tube placement for unsuccessful attempts at weaning from ventilation and prolonged hospitalization on mechanical vent. Chest x-ray today shows recurrent tiny left apical pneumothorax estimated under 5% with worsening overlying subcutaneous emphysema and again pneumomediastinum redemonstrated with multifocal confluent opacification's redemonstrated consistent with COVID-19 infection and/or arts are redemonstrated with no significant change from one day previously. Patient continues on FiO2 of 65% and PEEP was weaned down to 14 today. IV cefepime discontinued. 10/06/2021 Patient is seen in follow-up this morning per nursing staff patient had multiple runs of ectopy an irregular heart rate and rhythms with PVCs and cardiology consulted. Patient was placed on lidocaine drip and was originally on eliquis is currently on hold for possible PEG and trach placement with general surgery following. Patient had difficulty maintaining oxygen saturations and FiO2 was increased to 100% and PEEP continues at 14. Multiple medical consultations following and patient continues on oral steroids along with vitamin and zinc supplements along with fluconazole. Patient being started on IV Lasix daily and recommend close monitoring of electrolytes and kidney functions. 10/07/2021 Patient is seen in follow-up this morning continues to be monitored closely in the ICU with multiple medical consultations following. Patient is currently on mechanical vent with an FiO2 of 80% and PEEP is 16. General surgery also following for possible PEG and trach placement and will need to discuss with surgery about when this will occur. Patient remains on fluconazole. She also continues on vitamin and zinc supplements along with oral dexamethasone, clevidipine, Nimbex, IV Lasix, fentanyl and propofol and is off norepinephrine. Chest x-ray shows stable bilateral lung infiltrates. 10/08/2021 Patient is seen this morning continues to be on mechanical vent with an FiO2 of 85% and PEEP of 16. Patient continues with extensive subcutaneous emphysema and plans are for possible PEG and trach placement although on hold until possibly next week once more stable. Patient continues on Cleviprex along with fentanyl and propofol and is receiving IV Lasix daily. Patient also continues on lidocaine drip which is currently on hold and cardiology is following closely. Anticoagulant was resumed for now again until more stable to undergo PEG and trach placement. Chest x-ray today shows persistent bilateral multifocal and confluent increased opacification is with persistent overlying subcutaneous emphysema noted in pneumomediastinum is again redemonstrated. 10/09/2021 Patient evaluated today in ICU mechanical ventilation with FiO2 of 80%. Chest x-ray this morning shows similar multifocal airspace opacities and stable support lines and tubes. Similar subcutaneous emphysema scattered throughout the visualized thorax. PEG and trach plan for next week once more stable. Current meds include Cleviprex, Nimbex, fentanyl, propofol. She is receiving IV fluconazole, as well as IV Lasix. Levophed and Lidocaine gtt;s are on hold. Positive bowel sounds. Current vitals afebrile, heart rate 71, blood pressure 135/60 and oxygen saturation is 93%. Respirations 30. Labs today, white count 17, hemoglobin 11.6, sodium 139, potassium 3.8, BUN 34, creatinine 0.91, CO2 33, calcium 8.7, ALT 54, albumin 2.8 with blood sugars in the 100s. 10/10/2021 Patient evaluated today in the ICU on the mechanical VENT with fio2 of 100%. Positive bowel movement today, Stage 2 pressure ulcer on coccyx per RN, optifoam ordered. Per RN they were unable to patient as she was desaturating. They're unable to wean Fi02 currently as she does desaturate with any time of movement. She was lying more on her right side during evaluation and pulse ox was dropping into high 80s she was being repositioned by nurses. Plan is to PEG/TRACH patient tomorrow. Last family update was 4 days ago. We will call and discuss case today. Patient is afebrile, heart rate 84, respirations 30, blood pressure 141/55, 92% oxygen saturation on 100% Fi02, which was increased today up from 70 Fi02%. Labs today show WBC of 15.6, hgbl 10.7, sodium 138, potassium 3.9, chloride 100, CO2 37, glucose 117, calcium 8.2. Chest xray today shows pneumonia, ARDS. 10/11/2021 Patient is seen and evaluated in follow-up this morning continues to be closely monitored in the ICU and patient is continued on FiO2 of 90% and PEEP is 16 with multiple medical consultations following. Chest x-ray today shows new left- sided pneumothorax estimated 10-20% with overlying subcutaneous emphysema and pneumomediastinum redemonstrated with bilateral multifocal and confluent op acification's redemonstrated consistent with COVID-19 infection and/or arts and no significant change from one day previous. Patient is status post left chest tube insertion with pulmonary research animal attendant. Cardiology following and patient is off lidocaine drip and maintaining sinus rhythm. Patient also continues on vitamin and zinc supplements along with oral dexamethasone and patient continues on IV Lasix 40 mg daily. Patient also continues off norepinephrine and is currently maintained on IV cefepime along with fluconazole. General surgery following as well and plan is for peg and trach placement in the am 10/12/2021 Patient is seen in the ICU this morning continues to be closely monitored by multiple medical consultations. Patient was scheduled for PEG and trach placement with general surgery Dr. Nelson today although canceled as patient became hypotensive requiring Levophed along with acute blood loss anemia and hemoglobin dropped to 6.5 this morning requiring 1 unit of PRBC. Patient continues with left chest tube with pneumothorax and chest x-ray today shows the jahaira is difficult to clearly identify on the present exam and the ET tube may be approximately 1 cm from the jahaira and there are bilateral chest tubes present with continued diffuse interstitial opacification is and more focal bibasilar opacification is with subcutaneous emphysema persists along the upper chest with slight improvement on the left. No appreciable pneumothorax noted. Patient having worsening right pleural effusion last night and received a right- sided chest tube with pulmonary research animal attendant. FiO2 is 90% and PEEP of 16. Again overall prognosis remains extremely poor and guarded. 10/13/2021 Patient is seen in follow-up this morning in the ICU with multiple medical consultations following. Lengthy discussion was had with pulmonary research animal attendant and family members and would like to continue with full CODE STATUS and plan is in place for PEG tube and tracheostomy placement tomorrow. Anticoagulant on hold and Dr. Nelson plans for surgery tomorrow. Patient continues on oral dexamethasone along with IV cefepime, vitamin and zinc supplements. Patient also continues on Cleviprex and Nimbex. Patient also continues on fentanyl and propofol and will continue. Chest x-ray today shows stable portable chest with bilateral chest tubes without sizable pneumothorax identified and continued subcutaneous air persists with persistent interstitial changes bilaterally with airspace disease in the bilateral lung bases that are unchanged. FiO2 is 60% and PEEP of 16. 10/14/2021 Patient is seen and evaluated in the ICU being closely monitored with multiple medical consultations following. at the bedside today and had detailed discussion with overall prognosis. Plan is to proceed with PEG tube and tracheostomy placement with surgery Dr. Nelson today and anticoagulant continues to be on hold for this procedure. Patient continues on mechanical ventilation with an FiO2 of 70% and PEEP of 16. Chest x-ray today shows improving infiltrate with bibasilar residual and bilateral chest tubes remain present with no pneumothorax evident on either side and again subcutaneous emphysema is noted. Review of systems: Unable to obtain as patient is mechanically intubated and sedated Labs: WBC is 21.7, hemoglobin is 8.7, platelets are 279, sodium is 138, potassium 3.4, BUN 25, creatinine 0.59, calcium 8.4, magnesium 2.1 Physical Exam: Gen: This is a 61-year-old female currently sedated and intubated. mechanical ventilation Fio2 70% with a PEEP of 16 HEENT: Head is atraumatic, normocephalic. Pupils equal, round. Sclerae is anicteric. NECK: Supple. No JVD. No lymphadenopathy. No thyromegaly. subcutaneous emphysema noted in the neck and chest wall area bilaterally extensive. LUNGS: Diminished breath sounds bilaterally with coarse rhonchi and crackles noted. Left more diminished than right. No intercostal retractions. Bilateral chest tubes of the left and right HEART: S1, S2 are muffled ABDOMEN: Soft. Bowel sounds are present. No masses. No tenderness. EXTREMITIES: No pedal edema. No calf tenderness. Bilateral upper extremity edema noted NEUROLOGICAL: Patient is currently intubated and sedated Assessment: Acute COVID-19 infection with acute COVID-19 bilateral interstitial pneumonia with hypoxic hypercarbic respiratory failure on mechanical vent Subcutaneous emphysema of the neck and chest with a left pneumothorax 10-15% Left pneumothorax status post chest tube placement Right-sided pleural effusion with new small right pneumothorax status post chest tube placement Acute blood loss anemia secondary to bilateral chest tube placements with a drop in hemoglobin to 6.5 and was given 1 unit of PRBC, possible hypovolemic shock requiring pressor support Non-sustained ventricular tachycardia, currently sinus Acute left leg deep vein thrombosis Acute respiratory acidosis Primary hypercoagulable state and factor V week deficiency candidiasis secondary to prolonged indwelling Corbin catheter Mild transaminitis, possibly secondary to COVID-19 History of DVT History of degenerative joint disease History of fibromyalgia Acute respiratory acidosis Increased white blood count anemia, of undetermined etiology Elevated inflammatory markers of COVID-19 Obesity with a body mass index of 38.1 Full code Plan: Recommend to continue with current medications and follow along closely with multiple medical consultations. Prognosis remains extremely poor and guarded with multiple complex medical issues noted. Patient continues on mechanical ventilation and FiO2 70% with PEEP 16. Patient is status post bilateral chest tube placements of the left and right for bilateral pneumothorax. Patient scheduled for PEG and trach placement today with DR. Nelson. Cardiology following and anticoagulant on hold for PEG and trach placement. Recommend to continue with current medications. Recommend repeat labs and continued close monitoring. Again due to multiple complex medical issues overall prognosis is extremely poor and quite guarded. Family to discuss further about CODE STATUS and treatment plan moving further and spoke with the at the bedside and would like to see how patient tolerates tracheostomy and peg tube. Family would like to continue full code and is agreeable to peg and trach. Aware of guarded prognosis. Objective - Vital Signs Vital signs: Vital Signs Temp 97.5 F L 10/14/21 08:00 Pulse 85 10/14/21 08:00 Resp 30 H 10/14/21 08:00 BP 123/67 10/13/21 19:00 Pulse Ox 93 L 10/14/21 08:00 Intake & Output 10/13/21 10/14/21 10/14/21 18:59 06:59 18:59 Intake Total 1268.027 918.108 123 Output Total 1890 720 50 Balance -621.973 198.108 73 Weight 96 kg Intake: IV 358 276 23 .9 240 240 20 Cefepime 2 gm In Sodium 100 Chloride 0.9% 100 ml @ 25 mls/hr IVPB Q8HR [facility] Rx# :[id number] pressure bag 18 36 3 Intake, IV Titration 690.027 602.108 100 Amount Cisatracurium 200 mg In 185.502 Sodium Chloride 0.9% 180 ml @ 1 MCG/KG/MIN 5.16 mls/hr IV .Q24H [facility] Rx#: [id number] Clevidipine Butyrate 25 240.567 50 mg In Empty Bag 1 bag @ 1 MG/HR 2 mls/hr IV .Q24H [facility] Rx#:[id number] Norepinephrine 8 mg In 14.628 Sodium Chloride 0.9% 250 ml @ 0.05 MCG/KG/MIN 9. 143 mls/hr IV .Q24H [facility] Rx#:[id number] fentaNYL (PF) 2,500 mcg 239.2 In Sodium Chloride 0.9% 200 ml @ 0.5 MCG/KG/HR 4. 6 mls/hr IV .Q24H [facility] Rx# :[id number] propofoL 1,000 mg In 263.958 298.28 100 Empty Bag 1 bag @ Titrate IV .Q0M [facility] Rx#: [id number] Tube Feeding 130 40 Other 90 Output: Chest Tube Drainage 5 Chest Tube Left Lateral 5 Chest Urine 1890 715 50 Other: Voiding Method Indwelling Catheter Indwelling Catheter ABP, PAP, CO, CI - Last Documented Arterial Blood Pressure 136/53 - Labs CBC & Chem 7: 10/14/21 08:40 10/14/21 21:30 Labs: Abnormal Lab Results - Last 24 Hours (Table) 10/13/21 10/13/21 10/13/21 Range/Units 11:59 17:55 23:46 WBC (3.8-10.6) k/uL RBC (3.80-5.40) m/uL Hgb (11.4-16.0) gm/dL Hct (34.0-46.0) % RDW (11.5-15.5) % Neutrophils # (1.3-7.7) k/uL Monocytes # (0-1.0) k/uL ABG pCO2 (35-45) mmHg ABG pO2 (83-108) mmHg ABG HCO3 (21-25) mmol/L ABG Total CO2 (19-24) mmol/L ABG O2 Saturation (94-97) % Potassium (3.5-5.1) mmol/L Carbon Dioxide (22-30) mmol/L BUN (7-17) mg/dL Glucose (74-99) mg/dL POC Glucose (mg/dL) 169 H 191 H 111 H (75-99) mg/dL 10/14/21 10/14/21 10/14/21 Range/Units 05:50 06:09 08:40 WBC (3.8-10.6) k/uL RBC (3.80-5.40) m/uL Hgb (11.4-16.0) gm/dL Hct (34.0-46.0) % RDW (11.5-15.5) % Neutrophils # (1.3-7.7) k/uL Monocytes # (0-1.0) k/uL ABG pCO2 57 H (35-45) mmHg ABG pO2 53 L* (83-108) mmHg ABG HCO3 34 H (21-25) mmol/L ABG Total CO2 36 H (19-24) mmol/L ABG O2 Saturation 86.6 L (94-97) % Potassium 3.4 L (3.5-5.1) mmol/L Carbon Dioxide 35 H (22-30) mmol/L BUN 25 H (7-17) mg/dL Glucose 111 H (74-99) mg/dL POC Glucose (mg/dL) 118 H (75-99) mg/dL 10/14/21 Range/Units 08:40 WBC 21.7 H (3.8-10.6) k/uL RBC 3.00 L (3.80-5.40) m/uL Hgb 8.7 L (11.4-16.0) gm/dL Hct 27.4 L (34.0-46.0) % RDW 18.6 H (11.5-15.5) % Neutrophils # 17.4 H (1.3-7.7) k/uL Monocytes # 1.3 H (0-1.0) k/uL ABG pCO2 (35-45) mmHg ABG pO2 (83-108) mmHg ABG HCO3 (21-25) mmol/L ABG Total CO2 (19-24) mmol/L ABG O2 Saturation (94-97) % Potassium (3.5-5.1) mmol/L Carbon Dioxide (22-30) mmol/L BUN (7-17) mg/dL Glucose (74-99) mg/dL POC Glucose (mg/dL) (75-99) mg/dL
[2021-10-15] MEDS: POTASSIUM BICARBONATE/CIT AC 20 MEQ TABLET.EFF NG-TUBE SCH (00:02)
[2021-10-15 00:17] LABS: Glucose,Whole Blood 110 mg/dL (75-99)
[2021-10-15] MEDS: INSULIN ASPART (NovoLOG) 100 UNIT/ML VIAL SQ SCH ×4 (01:36→18:27)
[2021-10-15] MEDS: CISATRACURIUM 200 MG in SODIUM CHLORIDE 0.9% 180 ML IV SCH ×2 (01:38→18:29)
[2021-10-15] MEDS: CLEVIDIPINE BUTYRATE 25 MG in EMPTY BAG 1 BAG IV SCH ×3 (02:52→20:10)
[2021-10-15 05:15] LABS: Anisocytosis Slight; Basophils # (A) 0.1 k/uL (0-0.2); Basophils % (A) 1 %; Eosinophils # (A) 0.6 k/uL (0-0.7); Eosinophils % (A) 3 %; HCT 27.2 % (34.0-46.0); HGB 8.3 gm/dL (11.4-16.0); Hypochromasia Marked; Lymphocytes # (A) 1.8 k/uL (1.0-4.8); Lymphocytes % (A) 9 %; MCH 28.4 pg (25.0-35.0); MCHC 30.7 g/dL (31.0-37.0); MCV 92.6 fL (80.0-100.0); Macrocytosis Slight; Mean Platelet Volume 9.2; Monocytes # (A) 1.4 k/uL (0-1.0); Monocytes % (A) 6 %; Neutrophils # (A) 17.4 k/uL (1.3-7.7); Neutrophils % (A) 81 %; Platelet Count 244 k/uL (150-450); Poikilocytosis Slight; RBC 2.93 m/uL (3.80-5.40); RDW 18.6 % (11.5-15.5); WBC 21.5 k/uL (3.8-10.6)
[2021-10-15 05:25] LABS: African American GFR (CKD) >90 (>60 ml/min/1.73 sqM); Anion Gap 1 mmol/L; Blood Urea Nitrogen 22 mg/dL (7-17); Calcium 8.1 mg/dL (8.4-10.2); Carbon Dioxide 32 mmol/L (22-30); Chloride 104 mmol/L (98-107); Glucose 101 mg/dL (74-99); Non-African American GFR(CKD) >90 (>60 ml/min/1.73 sqM); Potassium 3.9 mmol/L (3.5-5.1); Sodium 137 mmol/L (137-145)
[2021-10-15] MEDS ORDERED: Potassium Replacement Protocol 1 EACH MISC MISCELLANE PRN (05:47)
[2021-10-15 05:55] LABS: ABG Base Excess 8.4 mmol/L; ABG HCO3 34 mmol/L (21-25); ABG Oxygen Saturation 97.9 % (94-97); ABG PCO2 61 mmHg (35-45); ABG PH 7.35 (7.35-7.45); ABG PO2 93 mmHg (83-108); ABG TCO2 36 mmol/L (19-24); Allen Test Performed? Yes
[2021-10-15] MEDS ORDERED: POTASSIUM BICARBONATE/CIT AC 20 MEQ TABLET.EFF NG-TUBE SCH (06:00)
[2021-10-15] MEDS: SODIUM CHLORIDE 0.9% 1,000 ML IV SCH (06:06)
[2021-10-15] MEDS: fentaNYL (PF) 2,500 MCG in SODIUM CHLORIDE 0.9% 200 ML IV SCH (06:22)
--- NOTE | 2021-10-15 07:10 | P.PN ---
Subjective Progress Note Date: 10/15/21 Principal diagnosis: Cardiac arrhythmia/COVID-19 pneumonia The patient is a 62-year-old female patient who was admitted to the intensive care unit with COVID-19 pneumonia and subsequently she developed acute hypoxic respiratory failure requiring intubation and mechanical ventilation. The infection was complicated by deep venous thrombosis. She has been untreated for long time right now. The patient was evaluated today. She underwent a PEG and trach tube yesterday. She has been not experiencing any ventricular arrhythmia so far. From the cardiac standpoint of view, we recommend continue the current medical regimen and restart the patient back on oral anticoagulation and follow-up with the patient on when necessary case. Objective - Vital Signs Vital signs: Vital Signs Temp 97.5 F L 10/15/21 04:00 Pulse 71 10/15/21 06:00 Resp 33 H 10/15/21 06:00 BP 114/56 10/15/21 06:00 Pulse Ox 100 10/15/21 06:00 Intake & Output 10/14/21 10/15/21 10/15/21 18:59 06:59 18:59 Intake Total 1909.499 766.340 5.364 Output Total 2167 1125 Balance -257.501 -358.660 5.364 Weight 95 kg Intake: IV 1051 276 .9 240 240 Cefepime 2 gm In Sodium 75 Chloride 0.9% 100 ml @ 25 mls/hr IVPB Q8HR [facility] Rx# :[id number] Fluconazole in NaCl,Iso- 100 Osm 100 mg In Saline 1 50ml.bag @ 50 mls/hr IVPB DAILY@1200 [facility] Rx#: [id number] pressure bag 36 36 Intake, IV Titration 858.499 490.340 5.364 Amount Cisatracurium 200 mg In 233.196 76.540 Sodium Chloride 0.9% 180 ml @ 1 MCG/KG/MIN 5.16 mls/hr IV .Q24H [facility] Rx#: [id number] Clevidipine Butyrate 25 44.033 63.8 mg In Empty Bag 1 bag @ 1 MG/HR 2 mls/hr IV .Q24H [facility] Rx#:[id number] Norepinephrine 8 mg In 0 5.364 Sodium Chloride 0.9% 250 ml @ 0.05 MCG/KG/MIN 9. 143 mls/hr IV .Q24H [facility] Rx#:[id number] Potassium Chloride 10 meq 100 In Water For Injection 1 100ml.bag @ 100 mls/hr IVPB Q1HR [facility] Rx#: [id number] Potassium Chloride 20 meq 100 In Water For Injection 1 100ml.bag @ 50 mls/hr IVPB Q2H [facility] Rx#: [id number] fentaNYL (PF) 2,500 mcg 250.000 In Sodium Chloride 0.9% 200 ml @ 0.5 MCG/KG/HR 4. 6 mls/hr IV .Q24H [facility] Rx# :[id number] propofoL 1,000 mg In 381.27 100 Empty Bag 1 bag @ Titrate IV .Q0M [facility] Rx#: [id number] Output: Chest Tube Drainage 25 20 Chest Tube Left Lateral 25 0 Chest Chest Tube Right Lateral 0 20 Chest Urine 2140 1105 Estimated Blood Loss 2 Other: Voiding Method Indwelling Catheter Indwelling Catheter ABP, PAP, CO, CI - Last Documented Arterial Blood Pressure 137/53 - Constitutional General appearance: Present: no acute distress - Labs CBC & Chem 7: 10/15/21 04:00 10/15/21 04:00 Labs: Abnormal Lab Results - Last 24 Hours (Table) 10/14/21 10/14/21 10/14/21 Range/Units 08:40 08:40 11:31 WBC 21.7 H (3.8-10.6) k/uL RBC 3.00 L (3.80-5.40) m/uL Hgb 8.7 L (11.4-16.0) gm/dL Hct 27.4 L (34.0-46.0) % MCHC (31.0-37.0) g/dL RDW 18.6 H (11.5-15.5) % Neutrophils # 17.4 H (1.3-7.7) k/uL Monocytes # 1.3 H (0-1.0) k/uL ABG pCO2 (35-45) mmHg ABG HCO3 (21-25) mmol/L ABG Total CO2 (19-24) mmol/L ABG O2 Saturation (94-97) % Potassium 3.4 L (3.5-5.1) mmol/L Carbon Dioxide 35 H (22-30) mmol/L BUN 25 H (7-17) mg/dL Glucose 111 H (74-99) mg/dL POC Glucose (mg/dL) 110 H (75-99) mg/dL Calcium (8.4-10.2) mg/dL 10/14/21 10/15/21 10/15/21 Range/Units 21:30 00:16 04:00 WBC (3.8-10.6) k/uL RBC (3.80-5.40) m/uL Hgb (11.4-16.0) gm/dL Hct (34.0-46.0) % MCHC (31.0-37.0) g/dL RDW (11.5-15.5) % Neutrophils # (1.3-7.7) k/uL Monocytes # (0-1.0) k/uL ABG pCO2 (35-45) mmHg ABG HCO3 (21-25) mmol/L ABG Total CO2 (19-24) mmol/L ABG O2 Saturation (94-97) % Potassium 3.3 L (3.5-5.1) mmol/L Carbon Dioxide 32 H (22-30) mmol/L BUN 22 H (7-17) mg/dL Glucose 101 H (74-99) mg/dL POC Glucose (mg/dL) 110 H (75-99) mg/dL Calcium 8.1 L (8.4-10.2) mg/dL 10/15/21 10/15/21 Range/Units 04:00 05:50 WBC 21.5 H (3.8-10.6) k/uL RBC 2.93 L (3.80-5.40) m/uL Hgb 8.3 L (11.4-16.0) gm/dL Hct 27.2 L (34.0-46.0) % MCHC 30.7 L (31.0-37.0) g/dL RDW 18.6 H (11.5-15.5) % Neutrophils # 17.4 H (1.3-7.7) k/uL Monocytes # 1.4 H (0-1.0) k/uL ABG pCO2 61 H (35-45) mmHg ABG HCO3 34 H (21-25) mmol/L ABG Total CO2 36 H (19-24) mmol/L ABG O2 Saturation 97.9 H (94-97) % Potassium (3.5-5.1) mmol/L Carbon Dioxide (22-30) mmol/L BUN (7-17) mg/dL Glucose (74-99) mg/dL POC Glucose (mg/dL) (75-99) mg/dL Calcium (8.4-10.2) mg/dL Assessment and Plan Assessment: Assessment #1 COVID-19 pneumonia #2 acute hypoxic respiratory failure #3 history of deep venous thrombosis #4 subcutaneous emphysema #5 ventricular arrhythmia in the term of nonsustained VT which has resolved Plan #1 continue the current medical regimen #2 restart the patient back on oral anticoagulation #3 from a cardiac standpoint overview will follow-up with the patient on when necessary.
--- NOTE | 2021-10-15 07:59 | XR ---
EXAMINATION TYPE: XR chest 1V portable DATE OF EXAM: 10/15/2021 COMPARISON: 10/14/2021 INDICATION: Assess lungs TECHNIQUE: Single frontal view of the chest is obtained. FINDINGS: The heart size is normal. The pulmonary vasculature is prominent. Diffuse increased lung markings are present greater on the right base. Over the interval was placement of a tracheostomy tube with the tip in the midline. Bilateral chest t ubes remain present. Endotracheal tube and nasogastric tube is been removed. PICC line enters on the right tip in the distal superior vena cava region. Subcutaneous emphysema on the right is diminished. IMPRESSION: 1. Patchy bilateral lung infiltrates greater at the right base. 2. Multiple lines and catheters discussed above.
[2021-10-15] MEDS: dexAMETHasone 2 MG TAB PO SCH (08:04)
[2021-10-15] MEDS: ASCORBIC ACID 500 MG TAB PO SCH ×2 (08:04→20:11)
[2021-10-15] MEDS: FUROSEMIDE 10 MG/ML 4 ML VIAL IV SCH (08:04)
[2021-10-15] MEDS: CHLORHEXIDINE GLUCONATE 15 ML CUP MUCOUS MEM SCH ×2 (08:05→20:11)
[2021-10-15] MEDS: ZINC SULFATE 220 MG CAP PO SCH (08:05)
[2021-10-15] MEDS: PANTOPRAZOLE 40 MG/10 ML VIAL IV SCH (08:05)
[2021-10-15] MEDS: ARTIFICIAL TEARS-HYPROMELLOSE DROPS 15 ML BTL BOTH EYES SCH ×4 (08:05→20:12)
[2021-10-15] MEDS: APIXABAN 5 MG TAB PO SCH ×2 (09:29→20:11)
--- NOTE | 2021-10-15 11:35 | P.PN ---
<LexxBernadette - Last Filed: 10/15/21 11:27> Subjective Progress Note Date: 10/15/21 CHIEF COMPLAINT: Shortness of breath, COVID-19 infection HISTORY OF PRESENT ILLNESS: A 61-year-old female who is admitted to the ICU and was intubated on 09/25/2021 from complications related to COVID-19 pneumonia and acute respiratory distress syndrome. Patient has remained mechanically ventilated and sedated. I Yesterday she underwent tracheostomy and PEG tube placement. Today she is seen and examined in the ICU. FiO2 50%, PEEP 16. Tube feedings had not been initiated yet this morning. No reported leakage from the tracheostomy site. She's been afebrile. PHYSICAL EXAM: VITAL SIGNS: Reviewed. GENERAL: Sedated on mechanical ventilation. HEENT: No sclera icterus. Head is atraumatic, normocephalic. Tracheostomy intact, no active bleeding or drainage noted. CHEST: Left and right chest tube in place. ABDOMEN: Soft. Nondistended. Nontender. NEUROLOGIC: Sedated with mechanical ventilation. ASSESSMENT: 1. Acute hypoxic respiratory failure secondary to COVID-19 pneumonia and complicated with ARDS currently intubated and on enteral nutrition 2. Requiring tracheostomy and gastrostomy tube secondary to above 3. Left lower extremity DVT, Eliquis resumed 4. Pneumothorax with bilateral chest tubes 5. Acute blood loss anemia secondary to chest tube, resolved PLAN: 1. Continue symptomatic and supportive care 2. Begin tube feeds at 20 mL per hour, increase rate by 10 mL per hour every 6 hours until goal achieved. 3. Head of bed greater than 45 at all times during feeding, check residuals every 4 hours and hold if greater than 100 mL 4. Dietitian consultation for nutrition support, PEG tube feedings Thank you for this consultation. The impression and plan of care has been dictated as directed. I performed a history and examination of this patient, discussed the same with the dictator. I agree with the dictator's note ,documented as a scribe. Any additional findings or plans will be noted. Objective - Vital Signs Vital signs: Vital Signs Temp 94.1 F L 10/15/21 09:00 Pulse 68 10/15/21 09:00 Resp 30 H 10/15/21 09:00 BP 114/56 10/15/21 06:00 Pulse Ox 95 10/15/21 09:00 Intake & Output 10/14/21 10/15/21 10/15/21 18:59 06:59 18:59 Intake Total 1909.499 866.340 99.163 Output Total 2167 1125 580 Balance -257.501 -258.660 -480.837 Weight 95 kg 95 kg Intake: IV 1051 276 69 .9 240 240 60 Cefepime 2 gm In Sodium 75 Chloride 0.9% 100 ml @ 25 mls/hr IVPB Q8HR [facility] Rx# :[id number] Fluconazole in NaCl,Iso- 100 Osm 100 mg In Saline 1 50ml.bag @ 50 mls/hr IVPB DAILY@1200 [facility] Rx#: [id number] pressure bag 36 36 9 Intake, IV Titration 858.499 590.340 30.163 Amount Cisatracurium 200 mg In 233.196 76.540 Sodium Chloride 0.9% 180 ml @ 1 MCG/KG/MIN 5.16 mls/hr IV .Q24H [facility] Rx#: [id number] Clevidipine Butyrate 25 44.033 63.8 0 mg In Empty Bag 1 bag @ 1 MG/HR 2 mls/hr IV .Q24H [facility] Rx#:[id number] Norepinephrine 8 mg In 0 16.823 Sodium Chloride 0.9% 250 ml @ 0.05 MCG/KG/MIN 9. 143 mls/hr IV .Q24H [facility] Rx#:[id number] Potassium Chloride 10 meq 100 In Water For Injection 1 100ml.bag @ 100 mls/hr IVPB Q1HR [facility] Rx#: [id number] Potassium Chloride 20 meq 100 In Water For Injection 1 100ml.bag @ 50 mls/hr IVPB Q2H [facility] Rx#: [id number] fentaNYL (PF) 2,500 mcg 250.000 13.34 In Sodium Chloride 0.9% 200 ml @ 0.5 MCG/KG/HR 4. 6 mls/hr IV .Q24H [facility] Rx# :[id number] propofoL 1,000 mg In 381.27 200 Empty Bag 1 bag @ Titrate IV .Q0M [facility] Rx#: [id number] Output: Chest Tube Drainage 25 20 Chest Tube Left Lateral 25 0 Chest Chest Tube Right Lateral 0 20 Chest Urine 2140 1105 580 Estimated Blood Loss 2 Other: Voiding Method Indwelling Catheter Indwelling Catheter ABP, PAP, CO, CI - Last Documented Arterial Blood Pressure 163/58 - Labs CBC & Chem 7: 10/15/21 04:00 10/15/21 04:00 Labs: Abnormal Lab Results - Last 24 Hours (Table) 10/14/21 10/14/21 10/15/21 Range/Units 11:31 21:30 00:16 WBC (3.8-10.6) k/uL RBC (3.80-5.40) m/uL Hgb (11.4-16.0) gm/dL Hct (34.0-46.0) % MCHC (31.0-37.0) g/dL RDW (11.5-15.5) % Neutrophils # (1.3-7.7) k/uL Monocytes # (0-1.0) k/uL ABG pCO2 (35-45) mmHg ABG HCO3 (21-25) mmol/L ABG Total CO2 (19-24) mmol/L ABG O2 Saturation (94-97) % Potassium 3.3 L (3.5-5.1) mmol/L Carbon Dioxide (22-30) mmol/L BUN (7-17) mg/dL Glucose (74-99) mg/dL POC Glucose (mg/dL) 110 H 110 H (75-99) mg/dL Calcium (8.4-10.2) mg/dL 10/15/21 10/15/21 10/15/21 Range/Units 04:00 04:00 05:50 WBC 21.5 H (3.8-10.6) k/uL RBC 2.93 L (3.80-5.40) m/uL Hgb 8.3 L (11.4-16.0) gm/dL Hct 27.2 L (34.0-46.0) % MCHC 30.7 L (31.0-37.0) g/dL RDW 18.6 H (11.5-15.5) % Neutrophils # 17.4 H (1.3-7.7) k/uL Monocytes # 1.4 H (0-1.0) k/uL ABG pCO2 61 H (35-45) mmHg ABG HCO3 34 H (21-25) mmol/L ABG Total CO2 36 H (19-24) mmol/L ABG O2 Saturation 97.9 H (94-97) % Potassium (3.5-5.1) mmol/L Carbon Dioxide 32 H (22-30) mmol/L BUN 22 H (7-17) mg/dL Glucose 101 H (74-99) mg/dL POC Glucose (mg/dL) (75-99) mg/dL Calcium 8.1 L (8.4-10.2) mg/dL <Pedrito Nelson - Last Filed: 10/15/21 12:05> Subjective I have personally seen and examined the patient, reviewed the EX CHEF /PAs history, exam and MDM and agree with the assessment and plan as written. Based on total visit time, I have performed more than 50% of the visit. As above. Tracheostomy slightly positional with some lower volumes at times. No air leak. No bleeding. Begin tube feeds today. Objective - Vital Signs Vital signs: Vital Signs Temp 94.1 F L 10/15/21 09:00 Pulse 68 10/15/21 09:00 Resp 30 H 10/15/21 09:00 BP 114/56 10/15/21 06:00 Pulse Ox 95 10/15/21 09:00 Intake & Output 10/14/21 10/15/21 10/15/21 18:59 06:59 18:59 Intake Total 1909.499 866.340 99.163 Output Total 2167 1125 580 Balance -257.501 -258.660 -480.837 Weight 95 kg 95 kg Intake: IV 1051 276 69 .9 240 240 60 Cefepime 2 gm In Sodium 75 Chloride 0.9% 100 ml @ 25 mls/hr IVPB Q8HR [facility] Rx# :[id number] Fluconazole in NaCl,Iso- 100 Osm 100 mg In Saline 1 50ml.bag @ 50 mls/hr IVPB DAILY@1200 [facility] Rx#: [id number] pressure bag 36 36 9 Intake, IV Titration 858.499 590.340 30.163 Amount Cisatracurium 200 mg In 233.196 76.540 Sodium Chloride 0.9% 180 ml @ 1 MCG/KG/MIN 5.16 mls/hr IV .Q24H [facility] Rx#: [id number] Clevidipine Butyrate 25 44.033 63.8 0 mg In Empty Bag 1 bag @ 1 MG/HR 2 mls/hr IV .Q24H [facility] Rx#:[id number] Norepinephrine 8 mg In 0 16.823 Sodium Chloride 0.9% 250 ml @ 0.05 MCG/KG/MIN 9. 143 mls/hr IV .Q24H [facility] Rx#:[id number] Potassium Chloride 10 meq 100 In Water For Injection 1 100ml.bag @ 100 mls/hr IVPB Q1HR [facility] Rx#: [id number] Potassium Chloride 20 meq 100 In Water For Injection 1 100ml.bag @ 50 mls/hr IVPB Q2H [facility] Rx#: [id number] fentaNYL (PF) 2,500 mcg 250.000 13.34 In Sodium Chloride 0.9% 200 ml @ 0.5 MCG/KG/HR 4. 6 mls/hr IV .Q24H [facility] Rx# :[id number] propofoL 1,000 mg In 381.27 200 Empty Bag 1 bag @ Titrate IV .Q0M [facility] Rx#: [id number] Output: Chest Tube Drainage 25 20 Chest Tube Left Lateral 25 0 Chest Chest Tube Right Lateral 0 20 Chest Urine 2140 1105 580 Estimated Blood Loss 2 Other: Voiding Method Indwelling Catheter Indwelling Catheter ABP, PAP, CO, CI - Last Documented Arterial Blood Pressure 163/58 - Labs CBC & Chem 7: 10/15/21 04:00 10/15/21 04:00 Labs: Abnormal Lab Results - Last 24 Hours (Table) 10/14/21 10/15/21 10/15/21 Range/Units 21:30 00:16 04:00 WBC (3.8-10.6) k/uL RBC (3.80-5.40) m/uL Hgb (11.4-16.0) gm/dL Hct (34.0-46.0) % MCHC (31.0-37.0) g/dL RDW (11.5-15.5) % Neutrophils # (1.3-7.7) k/uL Monocytes # (0-1.0) k/uL ABG pCO2 (35-45) mmHg ABG HCO3 (21-25) mmol/L ABG Total CO2 (19-24) mmol/L ABG O2 Saturation (94-97) % Potassium 3.3 L (3.5-5.1) mmol/L Carbon Dioxide 32 H (22-30) mmol/L BUN 22 H (7-17) mg/dL Glucose 101 H (74-99) mg/dL POC Glucose (mg/dL) 110 H (75-99) mg/dL Calcium 8.1 L (8.4-10.2) mg/dL 10/15/21 10/15/21 Range/Units 04:00 05:50 WBC 21.5 H (3.8-10.6) k/uL RBC 2.93 L (3.80-5.40) m/uL Hgb 8.3 L (11.4-16.0) gm/dL Hct 27.2 L (34.0-46.0) % MCHC 30.7 L (31.0-37.0) g/dL RDW 18.6 H (11.5-15.5) % Neutrophils # 17.4 H (1.3-7.7) k/uL Monocytes # 1.4 H (0-1.0) k/uL ABG pCO2 61 H (35-45) mmHg ABG HCO3 34 H (21-25) mmol/L ABG Total CO2 36 H (19-24) mmol/L ABG O2 Saturation 97.9 H (94-97) % Potassium (3.5-5.1) mmol/L Carbon Dioxide (22-30) mmol/L BUN (7-17) mg/dL Glucose (74-99) mg/dL POC Glucose (mg/dL) (75-99) mg/dL Calcium (8.4-10.2) mg/dL Assessment and Plan (1) Respiratory failure Current Visit: Yes Status: Acute Code(s): J96.90 - RESPIRATORY FAILURE, UNSP, UNSP W HYPOXIA OR HYPERCAPNIA SNOMED Code(s): 579147100
--- NOTE | 2021-10-15 11:43 | P.PN ---
Subjective Progress Note Date: 10/15/21 Principal diagnosis: Hypoxemic respiratory failure. Pulmonary consult dated 09/24/2021. 61-year-old female who states that she's been having symptoms, since September 10. The symptoms included shortness of breath, cough, fatigue, muscle aches, and generally just not feeling well. The patient is on vaccinated. She tested positive for coronavirus on September 23. Currently, she is on BiPAP with settings of 16/8, at 100%. Her primary care physician is Dr. Dionte Bal. The patient takes Coumadin chronically for her factor V or Leiden factor deficiency. Initially, on room air, her saturations were in the 70s, and on a nonrebreather, only got up into the mid 80s. In addition to the primary hypercoagulable state, she has a history of DVT, fibromyalgia, pneumonia, arthritis, and degenerative disc disease. She is a lifelong nonsmoker. She is getting saline at 50 mL an hour currently. White count 12.1, with a normal hemoglobin, hematocrit, and platelet count. PTT 24.2 INR 2.5, and d-dimer was 32.13. Sodium 1:30, potassium 3.1, chlorides 106, CO2 20, anion gap 12, BUN 47, and creatinine 1.5. Lactic acid was 1.5. AST was 95 with an ALT of 60. Pro-calcitonin level was 0.52. N-terminal proBNP is 259. Chest x-ray reveals diffuse bilateral infiltrates. CT angiogram was negative for pulmonary embolism, but did show diffuse infiltrates consistent with coronavirus pneumonia. Progress note dated 09/25/2021. 62-year-old female that I saw yesterday in consultation. She's been having coronavirus symptoms since September 10. The patient sees Dr. Dionte Bal as a primary. Yesterday, she was on BiPAP, at 16/8 and 100%. She was doing okay. Today, her saturations are quite low, she is much more tachypnea, and I decided to go ahead and move her to the ICU. The patient may require intubation and mechanical ventilation before the end of the day. CT angiogram was negative for pulmonary embolism. I did speak to her daughter, and her . White count 17.1, hemoglobin 11.9, hematocrit 37.5, platelet count 390,000. PTT is 33.3 INR is 3.5. Blood gases done on 100% show pO2 of only 49, pCO2 32, and a pH is 7.42. Sodium is 142, potassium 3.7, chlorides 113, CO2 21, anion gap 8, BUN 35, with a creatinine of 1.01. Progress note dated 09/26/2021. 62-year-old female, who was admitted with a diagnosis of hypoxemic respiratory failure secondary to coronavirus associated pneumonia. She's had coronavirus symptoms since September 10. Yesterday, she was transferred down to the intensive care unit for worsening respiratory status, and required intubation and mechanical ventilation. In addition, she had a central line placed and an arterial line placed yesterday. She remains on the ventilator, she is on the volume assist control mode, rate 26, tidal volume 400, FiO2 100%, and PEEP of 15. Arterial blood gases show pO2 of 82, pCO2 46, and a pH is 7.27. The patient's getting saline at 50 mL an hour, Nimbex at 1 mcg/kg/m, propofol at 50 mcg/kg/m, and norepinephrine at 2 mcg/m. Tube feedings have yet to be started. Chest x-ray shows a properly placed endotracheal tube, and diffuse bilateral infiltrates, which are essentially unchanged. White count 14.4, hemoglobin 10.5, hematocrit 32.4, and platelet count 250,000. PTT 34.5 with an INR 3.6. Sodium 143, potassium 4, chlorides 118, CO2 22, anion gap 3, BUN 27, and creatinine 0.95. LDH is 930. C-reactive protein is 16.2. CT angiogram was negative for pulmonary embolism. Reevaluated today on 10/08/21, patient remains in the ICU, intubated, mechanically ventilated, does not seem to be doing much better today. Patient is basically about the same, remains on assist control rate of 30 tidal volume 325 FiO2 is up to 85% PEEP remains at 16. Try to increase the PEEP, however there was a significant increase in her peak airway pressure and plateau pressure. Presently her peak airway pressure is 38, and plateau pressure is 34. Patient remains on propofol at 40 mcg/kg/m Nimbex of 0.5 but granted kilo per minute fentanyl 1 mcg/kg/h clevidipine 5 mg per hour. Chest x-ray is basically about the same, continues to show bilateral infiltrates and most likely underlying ARDS. Her labs showed WBC count of 13.0 hemoglobin 10.4. Electrolytes are normal renal profile is normal. ABG showed a pO2 of 61 pCO2 57 pH of 7.47. This was on 75%, and increase her FiO2 to 80% O2 saturation seems to be marginal on the monitor. Patient is off lidocaine drip today. Reevaluated today on 10/09/21, patient remains in the ICU, intubated and mechanically ventilated. Not much of the changes noted in the last few days, remains on assist control rate of 11/18/2024 FiO2 80% and PEEP of 16. ABG remains marginal, her pO2 is 62 pCO2 56 pH of 7.42. Patient remains on Nimbex at 3 mcg/kg/m fentanyl 1 mcg/kg/h propofol 40 mcg/kg/m, she is on clevidipine for milligrams per hour, IV fluids at KVO. Her WBC count is 17.1, and hemoglobin is 11.6. Electrolytes are normal and renal profile is normal. Chest x-ray continues to show multifocalopacities. And subcutaneous emphysema. No evidence of pneumothorax. Endotracheal tube, nasogastric tube and left central line are all in proper positions. Reevaluated today on 10/10/21, patient remains in the ICU, intubated and mechanically ventilated. She is presently on assist control rate of 30 tidal volume 325 FiO2 70% PEEP of 16. Her ABG showed a pO2 of 79 pCO2 48 pH of 7.50. Chest x-ray is basically showing no change. Continues to have bilateral infiltrates. Electrolytes are normal bicarb is 37 BUN is 35 creatinine 0.69 WBC count is 15.6 hemoglobin is 10.7. Patient remains on vital HPI 10 mL per hour. She is off level Prax, and her blood pressure seems to be relatively stable. Patient remains sedated and paralyzed, she is on propofol at 50 mcg/kg/m Nimbex at 3 mcg/kg/m fentanyl 12 mcg/kg/h, she is supposed to undergo tracheostomy and PEG tube placement next week, her Eliquis was restarted, needs to be placed on hold once the decision was made whether she is undergoing tracheostomy and PEG tube tomorrow by Dr. balbuena Progress note dated 10/11/2021. 61-year-old female admitted back on September 23. She came in with a diagnosis of coronavirus associated pneumonia. She came to the intensive care unit on the , and was intubated for respiratory failure on 09/25/2021. The patient remains on mechanical ventilator. The patient's on the volume assist control mode, rate 30, tidal volume 325, FiO2 90%, PEEP of 16. Blood gases show pO2 of 62, pCO2 of 51, and a pH is 7.47. The patient's getting saline at 20 mL an hour, propofol at 40 mcg/kg/m, fentanyl at 1 mcg/kg/h, Nimbex at 3 mcg/kg/m, and vital high protein at 10 mL an hour, which is goal. The patient's chest x-ray showed a left-sided pneumothorax, about 20-25%. A #28-Greenlandic chest tube was inserted today. Also, a fresh arterial line was placed today, and the left radial artery. White count 16.5, hemoglobin 10.6, hematocrit 34.5, platelet count 2 48,000. Sodium 136, potassium 3.6, chlorides 99, CO2 36, anion gap 1, BUN 32, with a creatinine 0.7. Microbiologic studies are all negative. Chest x-ray shows a very properly placed left-sided chest tube, with complete resolution of prior left-sided pneumothorax. Progress note dated 10/12/2021. 61-year-old female admitted back on 09/23/2021. She came in with a diagnosis of coronavirus associated pneumonia. The patient came to the intensive care unit on 09/25/2021, and was intubated on 09/25/2021 for worsening respiratory status. The patient remains on the mechanical ventilator. The patient was to have a tracheostomy and PEG tube placed today, but unfortunately, her hospital course is now been complicated by bilateral pneumothorax, requiring bilateral chest tube placements on October 11, and bleeding from the left chest tube site, since yesterday. That is despite the fact that the patient received fresh frozen plasma, vitamin K, and 4 factor prothrombin complex concentrate. Currently, the patient remains on the volume assist control, rate 30, tidal volume 325, FiO2 90%, and PEEP of 16. Blood gases show pO2 of 74, pCO2 of 58, and a pH is 7.41. The patient's on saline at KVO, propofol at 40 mics per kilogram per minute, Nimbex at 3 mcg/kg/m, fentanyl at 1 mcg/kg/h, norepinephrine at 2 mcg/m, and tube feeds are currently on hold. I did order 1 unit packed red blood cells. I told the nurse to call the physician, they canceled the anticipated surgery today. I was able to speak to the patient's , Taco, at [phone]. He was going to talk to the family about CODE STATUS, and possibly withdrawing life support. White count 17.3, hemoglobin 6.5, down from 10.1, hematocrit 20.4, and platelet count 194,000. PT 10.6 INR 1 PTT fibrinogen 326, and d-dimer is 0.92. Sodium 138, potassium 3.6, chlorides 101, CO2 36, anion gap 1, BUN 30, creatinine 0.69. Sputum is negative. Blood cultures are negative. Chest x-ray shows bilateral chest tubes, without pneumothorax, and diffuse patchy bilateral infiltrates. Progress note dated 10/13/2021. 61-year-old female, admitted back on 09/23/2021. She was admitted with a diagnosis of coronavirus associated pneumonia. He came to the intensive care unit on 09/25/2021, and was intubated on the same day for worsening respiratory status. She remains on mechanical ventilator. The patient was to have a trache ostomy and PEG tube placed, but that was put on hold. She did develop bilateral pneumothoraces, and required bilateral chest tube insertions. At one point, she was bleeding from the left chest tube site. That subsequently, has stopped. She remains on the ventilator, volume assist control, rate 30, tidal volume 325, FiO2 60%, and PEEP of 16. Blood gases show pO2 of 89, pCO2 of 50, and pH is 7. 44. The patient's currently on Nimbex at 3 mics per kilogram per minute, propofol at 50 mcg/kg/m, fentanyl 1 mcg/kg/h, Cleveprex at 11 mg an hour, saline at 20 mL an hour, and vital high protein at 10 mL an hour, which is goal. The tube feeds are currently on hold in anticipation of tracheostomy and PEG tube placement. White count 18, hemoglobin 7.3, hematocrit 22.8, and platelet count 208,000. Sodium 138, potassium 3.6, chlorides 104, CO2 32, anion gap 2, BUN 27, and creatinine 0.62. Microbiologic studies are negative. Chest x-ray shows bilateral chest tubes. No sizable pneumothorax is noted. Subcutaneous air persist. Persistent interstitial densities are noted bilaterally. Progress note dated 10/14/2021. 61-year-old female, admitted back on 09/23/2021. She was admitted with a diagnosis of coronavirus associated pneumonia. She came to the intensive care unit 2 days later, on September 25. She was intubated on the same day, for worsening hypoxemic respiratory failure. The patient is apparently scheduled to have a tracheostomy and PEG tube placement performed today. Tube feeds are on hold. She remains on the ventilator. She is on the volume assist control mode, rate 30, tidal volume 325, FiO2 70%, and PEEP of 16. Arterial blood gases on 60%, show pO2 of 53, pCO2 of 57, and pH is 7.38. The patient's on Cleveprex at 4 mg an hour, fentanyl 1.5 mcg/kg/h, Nimbex at 3 mcg/kg/m, propofol at 50 mcg/kg/m, and saline at KVO. The patient is again seen in room 253. White count was 21.7. Hemoglobin 8.7, hematocrit 27.4, and platelet count was normal. Sodium 138, potassium 3.4, chlorides 103, CO2 35, BUN 25, and creatinine 0.59. Chest x-ray shows improving bilateral infiltrates. Progress note dated 10/15/2021. 61-year-old female, admitted back on 09/23/2021. She is again seen in room 253. She was admitted with a diagnosis of coronavirus associated pneumonia. She came to the intensive care unit on 09/25/2021. She was intubated on 09/25/2021, for worsening respiratory status. The patient underwent tracheostomy and PEG tube placement yesterday, 10/14/2021. She remains on the ventilator. She is on the volume assist control mode, rate 30, tidal volume 325, FiO2 60%, to be dropped down to 50%, and a PEEP of 16. Blood gases show pO2 of 93, pCO2 61, pH is 7.35. The patient is on saline at KVO, propofol at 40 mcg/kg/m, Nimbex at 3 mcg/kg/m, and fentanyl 1 mcg/kg/h. The patient's also on norepinephrine at 2 mcg/m. Tube feedings are on hold. The patient has [address] This is slightly from the right chest tube. Thus far, microbiology is negative. We will discontinue the Diflucan. Currently, the patient is not on any antibiotics. We'll resume the patient's Eliquis, at 5 mg twice a day. White count 21.5, hemoglobin 8.3, hematocrit 27.2, and platelet count normal. Sodium 137, potassium 3.9, chlorides 104, CO2 32, anion gap 1, BUN 22, and creatinine 0.52. Chest x-ray shows patchy bilateral lung infiltrates. Objective - Vital Signs Vital signs: Vital Signs Temp 94.1 F L 10/15/21 09:00 Pulse 68 10/15/21 09:00 Resp 30 H 10/15/21 09:00 BP 114/56 10/15/21 06:00 Pulse Ox 95 10/15/21 09:00 Intake & Output 10/14/21 10/15/21 10/15/21 18:59 06:59 18:59 Intake Total 1909.499 866.340 99.163 Output Total 2167 1125 580 Balance -257.501 -258.660 -480.837 Weight 95 kg 95 kg Intake: IV 1051 276 69 .9 240 240 60 Cefepime 2 gm In Sodium 75 Chloride 0.9% 100 ml @ 25 mls/hr IVPB Q8HR [facility] Rx# :[id number] Fluconazole in NaCl,Iso- 100 Osm 100 mg In Saline 1 50ml.bag @ 50 mls/hr IVPB DAILY@1200 [facility] Rx#: [id number] pressure bag 36 36 9 Intake, IV Titration 858.499 590.340 30.163 Amount Cisatracurium 200 mg In 233.196 76.540 Sodium Chloride 0.9% 180 ml @ 1 MCG/KG/MIN 5.16 mls/hr IV .Q24H [facility] Rx#: [id number] Clevidipine Butyrate 25 44.033 63.8 0 mg In Empty Bag 1 bag @ 1 MG/HR 2 mls/hr IV .Q24H [facility] Rx#:[id number] Norepinephrine 8 mg In 0 16.823 Sodium Chloride 0.9% 250 ml @ 0.05 MCG/KG/MIN 9. 143 mls/hr IV .Q24H [facility] Rx#:[id number] Potassium Chloride 10 meq 100 In Water For Injection 1 100ml.bag @ 100 mls/hr IVPB Q1HR [facility] Rx#: [id number] Potassium Chloride 20 meq 100 In Water For Injection 1 100ml.bag @ 50 mls/hr IVPB Q2H [facility] Rx#: [id number] fentaNYL (PF) 2,500 mcg 250.000 13.34 In Sodium Chloride 0.9% 200 ml @ 0.5 MCG/KG/HR 4. 6 mls/hr IV .Q24H [facility] Rx# :[id number] propofoL 1,000 mg In 381.27 200 Empty Bag 1 bag @ Titrate IV .Q0M [facility] Rx#: [id number] Output: Chest Tube Drainage 25 20 Chest Tube Left Lateral 25 0 Chest Chest Tube Right Lateral 0 20 Chest Urine 2140 1105 580 Estimated Blood Loss 2 Other: Voiding Method Indwelling Catheter Indwelling Catheter ABP, PAP, CO, CI - Last Documented Arterial Blood Pressure 163/58 - Exam No acute distress, sedated and paralyzed, with a midline tracheostomy tube. HEENT examination is grossly unremarkable. Neck supple. Full range of motion. No adenopathy thyromegaly or neck vein distention. Midline tracheostomy tube is noted. Cardiovascular examination reveals regular rhythm rate. S1-S2 normal. No S3 or S4. No discernible murmur noted. Heart rate 68 bpm. Heart sounds are distant. Lungs reveal coarse bilateral rhonchi. Breath sounds are equal bilaterally. No wheezes. No crackles. Saturations are 99%. The patient has bilateral chest tubes. Abdomen soft, without bowel sounds. No masses. A PEG tube is now noted. Extremities are intact. No cyanosis clubbing or edema. Skin is without rash or lesion. Neurologic examination cannot be assessed as the patient is currently sedated and paralyzed. - Labs CBC & Chem 7: 10/15/21 04:00 10/15/21 04:00 Labs: Abnormal Lab Results - Last 24 Hours (Table) 10/14/21 10/15/21 10/15/21 Range/Units 21:30 00:16 04:00 WBC (3.8-10.6) k/uL RBC (3.80-5.40) m/uL Hgb (11.4-16.0) gm/dL Hct (34.0-46.0) % MCHC (31.0-37.0) g/dL RDW (11.5-15.5) % Neutrophils # (1.3-7.7) k/uL Monocytes # (0-1.0) k/uL ABG pCO2 (35-45) mmHg ABG HCO3 (21-25) mmol/L ABG Total CO2 (19-24) mmol/L ABG O2 Saturation (94-97) % Potassium 3.3 L (3.5-5.1) mmol/L Carbon Dioxide 32 H (22-30) mmol/L BUN 22 H (7-17) mg/dL Glucose 101 H (74-99) mg/dL POC Glucose (mg/dL) 110 H (75-99) mg/dL Calcium 8.1 L (8.4-10.2) mg/dL 10/15/21 10/15/21 Range/Units 04:00 05:50 WBC 21.5 H (3.8-10.6) k/uL RBC 2.93 L (3.80-5.40) m/uL Hgb 8.3 L (11.4-16.0) gm/dL Hct 27.2 L (34.0-46.0) % MCHC 30.7 L (31.0-37.0) g/dL RDW 18.6 H (11.5-15.5) % Neutrophils # 17.4 H (1.3-7.7) k/uL Monocytes # 1.4 H (0-1.0) k/uL ABG pCO2 61 H (35-45) mmHg ABG HCO3 34 H (21-25) mmol/L ABG Total CO2 36 H (19-24) mmol/L ABG O2 Saturation 97.9 H (94-97) % Potassium (3.5-5.1) mmol/L Carbon Dioxide (22-30) mmol/L BUN (7-17) mg/dL Glucose (74-99) mg/dL POC Glucose (mg/dL) (75-99) mg/dL Calcium (8.4-10.2) mg/dL Assessment and Plan Assessment: Acute hypoxemic respiratory failure secondary to coronavirus associated pneumonia, status post intubation, and mechanical ventilation on 09/25/2021, with tracheostomy and PEG tube placement on 10/14/2021. No evidence of pulmonary embolism on CT angiogram. Acute bilateral pneumothoraces, status post bilateral chest tube placements, on 10/11/2021. Acute blood loss anemia. Extensive subcutaneous emphysema, as a complication of mechanical ventilation and coronavirus associated pneumonia. Acute deep vein thrombosis. Mild transaminitis secondary to coronavirus infection. Primary hypercoagulable state in the form of Leiden factor deficiency/factor V deficiency. Prior history of DVT. History of fibromyalgia. History of arthritis. History of degenerative disc disease. Lifelong non-tobacco user. Plan: Plan dated 09/24/2021. The patient is not a candidate for REM, and she's had symptoms for more than 7 days. Actually sees, symptoms date back to September 10. 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 The patient does qualify for Decadron. In addition, the patient should be on vitamin C, vitamin D3, and zinc. Additional recommendations and suggestions are forthcoming. Prognosis is guarded. The patient is currently on Levaquin. That may disqualify her from [facility]. Plan dated 09/25/2021. The patient's blood gases suggests worsening respiratory status, and therefore, the patient was transferred down to the intensive care unit. The patient was on saline, at 50 mL an hour. Blood gases again showed a pO2 of only 49, and a pCO2 32, with a pH is 7.42. This is on BiPAP, at 100%. I did speak to her and her about the fact that she may require intubation and mechanical ventilation, before the end of the day. She will continue on Coumadin, as well as Decadron, and vitamins. The patient was placed on Levaquin. Her pro- calcitonin level was elevated. This likely disqualifies her for [facility]. We will continue to follow and make recommendations where appropriate. Prognosis is certainly guarded. Plan dated 09/26/2021. The patient was intubated and mechanically ventilated yesterday. A right radial art line was placed as was a left-sided triple-lumen catheter. The patient's currently sedated and paralyzed. Tube feedings will start today. She did get fluid resuscitation yesterday. She remains on a small dose of norepinephrine. The patient will have labs ordered for the morning including a CBC, basic metabolic profile, and blood gas. The patient remains on Coumadin. In addition, the patient will have a chest x-ray ordered for the morning. Tube feedings will be started today. Prognosis is guarded. We will continue to follow and make recommendations where appropriate. Prognosis is certainly very guarded. Plan dated 10/11/2021. Labs, x-rays, and medications are reviewed. A left-sided chest tube was placed by our team today. In addition, surgery has been consulted for possible tracheostomy and PEG tube placement. The patient remains on propofol, fentanyl, and Nimbex. The patient is on the mechanical ventilator, on 90% FiO2 and PEEP of 16. Additional recommendations and suggestions are forthcoming. Tube feedings are currently going to be placed on hold for possible tracheostomy and PEG tube placement. We will continue to follow and make recommendations where appropriate. Plan dated 10/12/2021. The patient developed bilateral pneumothoraces, and required bilateral chest tube placements, on October 11. There is some bleeding from the left-sided chest tube. The patient did receive vitamin K, fresh shows some plasma, and 4 factor prothrombin complex concentrate. In addition, the patient is going to receive 1 unit of packed red blood cells. I asked the nurse to call the surgeon to delay surgery. I was able to speak to the patient's , Taco. He is going to talk to the rest of the family about CODE STATUS and whether or not they wish to withdrawal of I support. I spoke to him for about 20 minutes on the phone. The patient remains on propofol, fentanyl, Nimbex, and norepinephrine. Prognosis is poor. We will continue to follow and make recommendations where appropriate. Plan dated 10/13/2021. The patient hopefully will proceed to tracheostomy and PEG tube placement. The patient's currently much more stable today than she was yesterday. We did talk to the about CODE STATUS. He has not made any decision as yet. The patient remains on Nimbex, propofol, and fentanyl. The patient is also receiving Cleveprex for elevated blood pressure. We will continue to follow make recommendations where appropriate. Prognosis is guarded. Labs, x-rays, and medications are all reviewed. Plan dated 10/14/2021. The patient should have a tracheostomy and PEG tube placed today. Currently, the patient remains on fentanyl, Nimbex, and propofol. In addition, the patient's on Cleveprex for blood pressure control. The patient's FiO2 was incre ased from 60% up to 70%, based on the blood gas today. We will continue to follow and make recommendations where appropriate. Labs, x-rays, and medications are all reviewed. Prognosis is guarded. I did speak to the about CODE STATUS. The patient is full code for now. Plan dated 10/15/2021. The patient had a tracheostomy and PEG tube placed on October 14. The patient remains on propofol, Nimbex, and fentanyl. We will attempt to discontinue the Nimbex at possible. The patient is started back on Eliquis, at 5 mg twice a day. Currently, we are going to DC Diflucan. There is a small air leak on the right chest tube area chest x-ray does not show any evidence of pneumothorax. She does have bilateral diffuse infiltrates. Currently, the patient is a full code. I did speak to the a couple days ago. Prognosis is guarded. We will continue to follow make recommendations where appropriate. The patient has now been in the hospital for 22 days. Time with Patient: Greater than 30
[2021-10-15 12:13] LABS: Glucose,Whole Blood 167 mg/dL (75-99)
[2021-10-15 13:48] LABS: Glucose,Whole Blood 151 mg/dL (75-99)
[2021-10-15] MEDS: NOREPINEPHRINE 8 MG in SODIUM CHLORIDE 0.9% 250 ML IV SCH (15:42)
[2021-10-15] MEDS: LACTATED RINGERS 1,000 ML IV SCH (15:42)
[2021-10-15 17:34] LABS: Glucose,Whole Blood 162 mg/dL (75-99)
[2021-10-16 00:29] LABS: Glucose,Whole Blood 134 mg/dL (75-99)
[2021-10-16] MEDS: INSULIN ASPART (NovoLOG) 100 UNIT/ML VIAL SQ SCH ×5 (01:00→23:36)
[2021-10-16] MEDS: CISATRACURIUM 200 MG in SODIUM CHLORIDE 0.9% 180 ML IV SCH ×2 (01:01→06:18)
--- NOTE | 2021-10-16 01:11 | P.PN ---
Subjective Progress Note Date: 10/15/21 This is a 61-year-old female who was recently admitted with acute COVID-19 pneumonia with acute COVID-19 bilateral interstitial pneumonia and also with transaminitis and being closely monitored. Patient remains in the ICU and currently intubated and sedated with an FiO2 of 70% and PEEP is 18. 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 Patient did have a venous Doppler study done recently which showed left leg DVT and patient is maintained on Eliquis will continue. Patient also continues on empiric antibiotics and awaiting for sputum culture finalized. Patient was started on IV cefepime and will continue. Patient is also continued on oral dexamethasone along with vitamin and zinc supplements and will continue. Patient with some mild volume overload and given a dose of IV Lasix push today. 09/29/2021 Patient is seen and evaluated this morning continues to be closely monitored in the ICU and continues to be on mechanical ventilation and sedated. FiO2 was increased at 80% with a PEEP of 18 and oxygen saturations between 87-91%. Patient developing subcutaneous emphysema in the neck and chest wall area and chest x-ray today shows bilateral multifocal and confluent opacification is redemonstrated consistent with COVID-19 infection with a new small left apical pneumothorax estimated under 5% with new pneumomediastinum and recurrent overlying subcutaneous emphysema noted. Patient is white blood count mildly elevated at 16.1 and is continued on oral dexamethasone along with oral eliquis for anticoagulation. Patient continues to be on IV cefepime and blood and sputum cultures are negative thus far. 09/30/2021 Patient is seen today continues to be closely monitored in the ICU with multiple medical consultations following. Patient continues to be mechanically intubated and sedated with continued subcutaneous emphysema noted. Chest xray shows a trace left apical pneumothorax that is minimally smaller 7mm versus 1cm previously, extensive bilateral subcutaneous emphysema persists and diffuse interstitial changes and bilateral patchy opacities persist with slight improvement in aeration in the lower lungs. Per nursing staff corbin was clogged with copious amounts of white discharge and will add diflucan and corbin catheter has been changed and draining adequately. Patient continues on IV cefepime. Patient tolerating tube feeds and will continue. 10/01/2021 Patient is seen and evaluated in follow up this morning and continues to be closely monitored. Multiple medical consultations following and patient c ontinues to be on mechanical vent and sedated. Patient continues on IV Cefepime and diflucan. Patient chest xray today shows stable extensive subcutaneous emphysema, no pneumothorax, and patchy bilateral lung infiltrates remain present. INflammatory markers trending down. 10/04/2021 Patient is seen in follow-up continues to be closely monitored in the ICU. Patient remains on mechanical vent with an FI02 of 65% and peep is 18. Weaning trials being attempted with pulmonary paper folder following closely. Patient continues with extensive subq emphysema noted on exam. 10/05/2021 Patient Is seen and evaluated this morning with continued attempts at weaning and continues on mechanical vent and intubated with pulmonary paper folder following closely. Patient remains on Eliquis which will be held as surgery Dr. Nelson was consulted for possible PEG and trach tube placement for unsuccessful attempts at weaning from ventilation and prolonged hospitalization on mechanical vent. Chest x-ray today shows recurrent tiny left apical pneumothorax estimated under 5% with worsening overlying subcutaneous emphysema and again pneumomediastinum redemonstrated with multifocal confluent opacification's redemonstrated consistent with COVID-19 infection and/or arts are redemonstrated with no significant change from one day previously. Patient continues on FiO2 of 65% and PEEP was weaned down to 14 today. IV cefepime discontinued. 10/06/2021 Patient is seen in follow-up this morning per nursing staff patient had multiple runs of ectopy an irregular heart rate and rhythms with PVCs and cardiology consulted. Patient was placed on lidocaine drip and was originally on eliquis is currently on hold for possible PEG and trach placement with general surgery following. Patient had difficulty maintaining oxygen saturations and FiO2 was increased to 100% and PEEP continues at 14. Multiple medical consultations following and patient continues on oral steroids along with vitamin and zinc supplements along with fluconazole. Patient being started on IV Lasix daily and recommend close monitoring of electrolytes and kidney functions. 10/07/2021 Patient is seen in follow-up this morning continues to be monitored closely in the ICU with multiple medical consultations following. Patient is currently on mechanical vent with an FiO2 of 80% and PEEP is 16. General surgery also following for possible PEG and trach placement and will need to discuss with surgery about when this will occur. Patient remains on fluconazole. She also continues on vitamin and zinc supplements along with oral dexamethasone, clevidipine, Nimbex, IV Lasix, fentanyl and propofol and is off norepinephrine. Chest x-ray shows stable bilateral lung infiltrates. 10/08/2021 Patient is seen this morning continues to be on mechanical vent with an FiO2 of 85% and PEEP of 16. Patient continues with extensive subcutaneous emphysema and plans are for possible PEG and trach placement although on hold until possibly next week once more stable. Patient continues on Cleviprex along with fentanyl and propofol and is receiving IV Lasix daily. Patient also continues on lidocaine drip which is currently on hold and cardiology is following closely. Anticoagulant was resumed for now again until more stable to undergo PEG and trach placement. Chest x-ray today shows persistent bilateral multifocal and confluent increased opacification is with persistent overlying subcutaneous emphysema noted in pneumomediastinum is again redemonstrated. 10/09/2021 Patient evaluated today in ICU mechanical ventilation with FiO2 of 80%. Chest x-ray this morning shows similar multifocal airspace opacities and stable support lines and tubes. Similar subcutaneous emphysema scattered throughout the visualized thorax. PEG and trach plan for next week once more stable. Current meds include Cleviprex, Nimbex, fentanyl, propofol. She is receiving IV fluconazole, as well as IV Lasix. Levophed and Lidocaine gtt;s are on hold. Positive bowel sounds. Current vitals afebrile, heart rate 71, blood pressure 135/60 and oxygen saturation is 93%. Respirations 30. Labs today, white count 17, hemoglobin 11.6, sodium 139, potassium 3.8, BUN 34, creatinine 0.91, CO2 33, calcium 8.7, ALT 54, albumin 2.8 with blood sugars in the 100s. 10/10/2021 Patient evaluated today in the ICU on the mechanical VENT with fio2 of 100%. Positive bowel movement today, Stage 2 pressure ulcer on coccyx per RN, optifoam ordered. Per RN they were unable to patient as she was desaturating. They're unable to wean Fi02 currently as she does desaturate with any time of movement. She was lying more on her right side during evaluation and pulse ox was dropping into high 80s she was being repositioned by nurses. Plan is to PEG/TRACH patient tomorrow. Last family update was 4 days ago. We will call and discuss case today. Patient is afebrile, heart rate 84, respirations 30, blood pressure 141/55, 92% oxygen saturation on 100% Fi02, which was increased today up from 70 Fi02%. Labs today show WBC of 15.6, hgbl 10.7, sodium 138, potassium 3.9, chloride 100, CO2 37, glucose 117, calcium 8.2. Chest xray today shows pneumonia, ARDS. 10/11/2021 Patient is seen and evaluated in follow-up this morning continues to be closely monitored in the ICU and patient is continued on FiO2 of 90% and PEEP is 16 with multiple medical consultations following. Chest x-ray today shows new left- sided pneumothorax estimated 10-20% with overlying subcutaneous emphysema and pneumomediastinum redemonstrated with bilateral multifocal and confluent op acification's redemonstrated consistent with COVID-19 infection and/or arts and no significant change from one day previous. Patient is status post left chest tube insertion with pulmonary paper folder. Cardiology following and patient is off lidocaine drip and maintaining sinus rhythm. Patient also continues on vitamin and zinc supplements along with oral dexamethasone and patient continues on IV Lasix 40 mg daily. Patient also continues off norepinephrine and is currently maintained on IV cefepime along with fluconazole. General surgery following as well and plan is for peg and trach placement in the am 10/12/2021 Patient is seen in the ICU this morning continues to be closely monitored by multiple medical consultations. Patient was scheduled for PEG and trach placement with general surgery Dr. Nelson today although canceled as patient became hypotensive requiring Levophed along with acute blood loss anemia and hemoglobin dropped to 6.5 this morning requiring 1 unit of PRBC. Patient continues with left chest tube with pneumothorax and chest x-ray today shows the jahaira is difficult to clearly identify on the present exam and the ET tube may be approximately 1 cm from the jahaira and there are bilateral chest tubes present with continued diffuse interstitial opacification is and more focal bibasilar opacification is with subcutaneous emphysema persists along the upper chest with slight improvement on the left. No appreciable pneumothorax noted. Patient having worsening right pleural effusion last night and received a right- sided chest tube with pulmonary paper folder. FiO2 is 90% and PEEP of 16. Again overall prognosis remains extremely poor and guarded. 10/13/2021 Patient is seen in follow-up this morning in the ICU with multiple medical consultations following. Lengthy discussion was had with pulmonary paper folder and family members and would like to continue with full CODE STATUS and plan is in place for PEG tube and tracheostomy placement tomorrow. Anticoagulant on hold and Dr. Nelson plans for surgery tomorrow. Patient continues on oral dexamethasone along with IV cefepime, vitamin and zinc supplements. Patient also continues on Cleviprex and Nimbex. Patient also continues on fentanyl and propofol and will continue. Chest x-ray today shows stable portable chest with bilateral chest tubes without sizable pneumothorax identified and continued subcutaneous air persists with persistent interstitial changes bilaterally with airspace disease in the bilateral lung bases that are unchanged. FiO2 is 60% and PEEP of 16. 10/14/2021 Patient is seen and evaluated in the ICU being closely monitored with multiple medical consultations following. at the bedside today and had detailed discussion with overall prognosis. Plan is to proceed with PEG tube and tracheostomy placement with surgery Dr. Nelson today and anticoagulant continues to be on hold for this procedure. Patient continues on mechanical ventilation with an FiO2 of 70% and PEEP of 16. Chest x-ray today shows improving infiltrate with bibasilar residual and bilateral chest tubes remain present with no pneumothorax evident on either side and again subcutaneous emphysema is noted. 10/15/2021 Patient is seen in the ICU being closely monitored. Patient is status post PEG and trach placement yesterday. Chest x-ray today shows bilateral patchy lung infiltrates greater at the right base with diffuse increased lung markings and bilateral chest tubes remain present and subcutaneous emphysema on the right is diminished. Patient continues with an FI02 of 60 and peep is 16. To resume tube feeds per surgery. Patient continues on norepinephrine and sedation. Patient is receiving IV lasix daily. Review of systems: Unable to obtain as patient is mechanically intubated and sedated Labs: WBC is 21.5, hemoglobin is 8.3, platelets are 244, sodium is 137, potassium is 3.9, BUN is 22, creatinine is 0.52, calcium is 8.1 Active Medications Apixaban (Apixaban 5 Mg Tab) 5 mg PO BID [facility]; Protocol Last Admin: 10/15/21 20:11 Dose: 5 mg Documented by: Artificial Tears (Artificial Tears-Hypromellose Drops 15 Ml Btl) 2 drops BOTH EYES QID [facility] Last Admin: 10/15/21 20:12 Dose: 2 drops Documented by: Ascorbic Acid (Ascorbic Acid 500 Mg Tab) 500 mg PO BID [facility] Last Admin: 10/15/21 20:11 Dose: 500 mg Documented by: Chlorhexidine Gluconate (Chlorhexidine Gluconate 15 Ml Cup) 15 ml MUCOUS MEM BID [facility] Last Admin: 10/15/21 20:11 Dose: 15 ml Documented by: Dexamethasone (Dexamethasone 2 Mg Tab) 6 mg PO DAILY [facility] Last Admin: 10/15/21 08:04 Dose: 6 mg Documented by: Docusate Sodium (Docusate Oral Soln 100 Mg/10 Ml Cup) 100 mg PO DAILY PRN PRN Reason: Constipation Last Admin: 10/05/21 16:57 Dose: 100 mg Documented by: Ergocalciferol (Ergocalciferol 1,250 Mcg (50,000 Iu) Capsule) 1,250 mcg PO MORRIS [facility] Last Admin: 10/10/21 08:06 Dose: 1,250 mcg Documented by: Furosemide (Furosemide 10 Mg/Ml 4 Ml Vial) 40 mg IV DAILY [facility] Last Admin: 10/15/21 08:04 Dose: 40 mg Documented by: Propofol 1,000 mg/ IV Solution 100 mls @ 0 mls/hr IV .Q0M [facility]; Protocol Last Admin: 10/16/21 00:10 Dose: 50 mcg/kg/min, 28.5 mls/hr Documented by: Cisatracurium Besylate 200 mg/ (Sodium Chloride) 200 mls @ 5.16 mls/hr IV .Q24H [facility]; Protocol Last Admin: 10/16/21 01:01 Dose: 6 mcg/kg/min, 30.96 mls/hr Documented by: Sodium Chloride (Saline 0.9%) 1,000 mls @ 20 mls/hr IV .Q24H [facility] Last Admin: 10/15/21 06:06 Dose: Not Given Documented by: Fentanyl Citrate 2,500 mcg/ (Sodium Chloride) 250 mls @ 4.6 mls/hr IV .Q24H [facility]; Protocol Last Titration: 10/15/21 07:20 Dose: 1 mcg/kg/hr, 9.2 mls/hr Documented by: Clevidipine 25 mg/ IV Solution 50 mls @ 2 mls/hr IV .Q24H [facility]; Protocol Last Titration: 10/15/21 22:45 Dose: 0 mg/hr, 0 mls/hr Documented by: Lactated Ringer's (Lactated Ringers) 1,000 mls @ 20 mls/hr IV .Q24H [facility] Last Admin: 10/15/21 15:42 Dose: Not Given Documented by: Norepinephrine Bitartrate 8 mg (/ Sodium Chloride) 258 mls @ 9.143 mls/hr IV .Q24H [facility]; Protocol Last Titration: 10/15/21 23:00 Dose: 0.02 mcg/kg/min, 3.657 mls/hr Documented by: Insulin Aspart (Insulin Aspart (Novolog) 100 Unit/Ml Vial) 0 unit SQ Q6HR [facility]; Protocol Last Admin: 10/16/21 01:00 Dose: 1 unit Documented by: Miscellaneous Information (Pneumonia Protocol Utilized 1 Each Misc) 1 each PO ONCE PRN PRN Reason: Per Protocol Miscellaneous Information (Potassium Replacement Protocol 1 Each Misc) 1 each MISCELLANE DAILY PRN; Protocol PRN Reason: Per Protocol Naloxone HCl (Naloxone 0.4 Mg/Ml 1 Ml Vial) 0.2 mg IV Q2M PRN PRN Reason: Opioid Reversal Pantoprazole Sodium (Pantoprazole 40 Mg/10 Ml Vial) 40 mg IV DAILY [facility] Last Admin: 10/15/21 08:05 Dose: 40 mg Documented by: Zinc Sulfate (Zinc Sulfate 220 Mg Cap) 220 mg PO DAILY [facility] Last Admin: 10/15/21 08:05 Dose: 220 mg Documented by: Physical Exam: Gen: This is a 61-year-old female currently sedated and intubated. mechanical ventilation Fio2 60% with a PEEP of 16 HEENT: Head is atraumatic, normocephalic. Pupils equal, round. Sclerae is anicteric. tracheostomy noted NECK: Supple. No JVD. No lymphadenopathy. No thyromegaly. subcutaneous emphysema noted in the neck and chest wall area bilaterally extensive. LUNGS: Diminished breath sounds bilaterally with coarse rhonchi and crackles noted. Left more diminished than right. No intercostal retractions. Bilateral chest tubes of the left and right HEART: S1, S2 are muffled ABDOMEN: Soft. Bowel sounds are present. No masses. No tenderness. peg tube noted. EXTREMITIES: No pedal edema. No calf tenderness. generalized edema noted NEUROLOGICAL: Patient is currently intubated and sedated Assessment: Acute COVID-19 infection with acute COVID-19 bilateral interstitial pneumonia with hypoxic hypercarbic respiratory failure on mechanical vent Subcutaneous emphysema of the neck and chest with a left pneumothorax 10-15% status post peg tube and tracheostomy placement Left pneumothorax status post chest tube placement Right-sided pleural effusion with new small right pneumothorax status post chest tube placement Acute blood loss anemia secondary to bilateral chest tube placements with a drop in hemoglobin to 6.5 and was given 1 unit of PRBC, possible hypovolemic shock requiring pressor support Non-sustained ventricular tachycardia, currently sinus Acute left leg deep vein thrombosis Acute respiratory acidosis Primary hypercoagulable state and factor V week deficiency candidiasis secondary to prolonged indwelling Corbin catheter Mild transaminitis, possibly secondary to COVID-19 History of DVT History of degenerative joint disease History of fibromyalgia Acute respiratory acidosis Increased white blood count anemia, of undetermined etiology Elevated inflammatory markers of COVID-19 Obesity with a body mass index of 38.1 Full code Plan: Recommend to continue with current medications and follow along closely with multiple medical consultations. Prognosis remains extremely poor and guarded with multiple complex medical issues noted. Patient continues on mechanical ventilation via tracheostomy and FiO2 60% with PEEP of 16. Patient is status post bilateral chest tube placements of the left and right for bilateral pneumothorax. Patient underwent PEG and trach placement yesterday and will be resuming tube feeding. Eliquis resumed. Recommend to continue with current medications. Recommend repeat labs and continued close monitoring. Again due to multiple complex medical issues overall prognosis is extremely poor and quite guarded. Family would like to continue full code and is aware of overall extremely guarded and poor prognosis. Objective - Vital Signs Vital signs: Vital Signs Temp 97.5 F L 10/15/21 04:00 Pulse 68 10/15/21 09:00 Resp 30 H 10/15/21 09:00 BP 114/56 10/15/21 06:00 Pulse Ox 95 10/15/21 09:00 Intake & Output 10/14/21 10/15/21 10/15/21 18:59 06:59 18:59 Intake Total 1909.499 866.340 53.163 Output Total 2167 1125 30 Balance -257.501 -258.660 23.163 Weight 95 kg 95 kg Intake: IV 1051 276 23 .9 240 240 20 Cefepime 2 gm In Sodium 75 Chloride 0.9% 100 ml @ 25 mls/hr IVPB Q8HR [facility] Rx# :[id number] Fluconazole in NaCl,Iso- 100 Osm 100 mg In Saline 1 50ml.bag @ 50 mls/hr IVPB DAILY@1200 [facility] Rx#: [id number] pressure bag 36 36 3 Intake, IV Titration 858.499 590.340 30.163 Amount Cisatracurium 200 mg In 233.196 76.540 Sodium Chloride 0.9% 180 ml @ 1 MCG/KG/MIN 5.16 mls/hr IV .Q24H [facility] Rx#: [id number] Clevidipine Butyrate 25 44.033 63.8 mg In Empty Bag 1 bag @ 1 MG/HR 2 mls/hr IV .Q24H [facility] Rx#:[id number] Norepinephrine 8 mg In 0 16.823 Sodium Chloride 0.9% 250 ml @ 0.05 MCG/KG/MIN 9. 143 mls/hr IV .Q24H [facility] Rx#:[id number] Potassium Chloride 10 meq 100 In Water For Injection 1 100ml.bag @ 100 mls/hr IVPB Q1HR [facility] Rx#: [id number] Potassium Chloride 20 meq 100 In Water For Injection 1 100ml.bag @ 50 mls/hr IVPB Q2H [facility] Rx#: [id number] fentaNYL (PF) 2,500 mcg 250.000 13.34 In Sodium Chloride 0.9% 200 ml @ 0.5 MCG/KG/HR 4. 6 mls/hr IV .Q24H [facility] Rx# :[id number] propofoL 1,000 mg In 381.27 200 Empty Bag 1 bag @ Titrate IV .Q0M [facility] Rx#: [id number] Output: Chest Tube Drainage 25 20 Chest Tube Left Lateral 25 0 Chest Chest Tube Right Lateral 0 20 Chest Urine 2140 1105 30 Estimated Blood Loss 2 Other: Voiding Method Indwelling Catheter Indwelling Catheter ABP, PAP, CO, CI - Last Documented Arterial Blood Pressure 163/58 - Labs CBC & Chem 7: 10/15/21 04:00 10/15/21 04:00 Labs: Abnormal Lab Results - Last 24 Hours (Table) 10/14/21 10/14/21 10/15/21 Range/Units 11:31 21:30 00:16 WBC (3.8-10.6) k/uL RBC (3.80-5.40) m/uL Hgb (11.4-16.0) gm/dL Hct (34.0-46.0) % MCHC (31.0-37.0) g/dL RDW (11.5-15.5) % Neutrophils # (1.3-7.7) k/uL Monocytes # (0-1.0) k/uL ABG pCO2 (35-45) mmHg ABG HCO3 (21-25) mmol/L ABG Total CO2 (19-24) mmol/L ABG O2 Saturation (94-97) % Potassium 3.3 L (3.5-5.1) mmol/L Carbon Dioxide (22-30) mmol/L BUN (7-17) mg/dL Glucose (74-99) mg/dL POC Glucose (mg/dL) 110 H 110 H (75-99) mg/dL Calcium (8.4-10.2) mg/dL 10/15/21 10/15/21 10/15/21 Range/Units 04:00 04:00 05:50 WBC 21.5 H (3.8-10.6) k/uL RBC 2.93 L (3.80-5.40) m/uL Hgb 8.3 L (11.4-16.0) gm/dL Hct 27.2 L (34.0-46.0) % MCHC 30.7 L (31.0-37.0) g/dL RDW 18.6 H (11.5-15.5) % Neutrophils # 17.4 H (1.3-7.7) k/uL Monocytes # 1.4 H (0-1.0) k/uL ABG pCO2 61 H (35-45) mmHg ABG HCO3 34 H (21-25) mmol/L ABG Total CO2 36 H (19-24) mmol/L ABG O2 Saturation 97.9 H (94-97) % Potassium (3.5-5.1) mmol/L Carbon Dioxide 32 H (22-30) mmol/L BUN 22 H (7-17) mg/dL Glucose 101 H (74-99) mg/dL POC Glucose (mg/dL) (75-99) mg/dL Calcium 8.1 L (8.4-10.2) mg/dL
[2021-10-16] MEDS: fentaNYL (PF) 2,500 MCG in SODIUM CHLORIDE 0.9% 200 ML IV SCH ×2 (04:39→21:14)
[2021-10-16] MEDS: SODIUM CHLORIDE 0.9% 1,000 ML IV SCH (05:42)
[2021-10-16 05:49] LABS: Glucose,Whole Blood 96 mg/dL (75-99)
[2021-10-16 05:55] LABS: ABG Base Excess 12.3 mmol/L; ABG HCO3 37 mmol/L (21-25); ABG Oxygen Saturation 96.9 % (94-97); ABG PCO2 58 mmHg (35-45); ABG PH 7.41 (7.35-7.45); ABG PO2 80 mmHg (83-108); ABG TCO2 39 mmol/L (19-24); Allen Test Performed? Yes
--- NOTE | 2021-10-16 06:31 | XR ---
EXAMINATION TYPE: XR chest 1V portable DATE OF EXAM: 10/16/2021 COMPARISON: 10/15/2021 HISTORY: Shortness of breath TECHNIQUE: Single frontal view of the chest is obtained. FINDINGS: There is been no change in the chest tubes or right-sided PICC line tracheostomy There is moderate diffuse airspace and interstitial infiltrate in the right lung unchanged. There is mild partially consolidative Heart size is normal. The pulmonary vasculature is not congested. There is no pneumothorax or large p leural infiltrate in the left lung base which is stable. IMPRESSION: No change in the acute cardiopulmonary disease.
[2021-10-16] MEDS: NOREPINEPHRINE 8 MG in SODIUM CHLORIDE 0.9% 250 ML IV SCH (08:23)
[2021-10-16] MEDS: APIXABAN 5 MG TAB PO SCH ×2 (08:25→19:43)
[2021-10-16] MEDS: ARTIFICIAL TEARS-HYPROMELLOSE DROPS 15 ML BTL BOTH EYES SCH ×4 (08:26→19:44)
[2021-10-16] MEDS: PANTOPRAZOLE 40 MG/10 ML VIAL IV SCH (08:29)
[2021-10-16] MEDS: FUROSEMIDE 10 MG/ML 4 ML VIAL IV SCH (08:29)
[2021-10-16] MEDS: CHLORHEXIDINE GLUCONATE 15 ML CUP MUCOUS MEM SCH ×2 (08:29→19:43)
[2021-10-16] MEDS: ASCORBIC ACID 500 MG TAB PO SCH ×2 (08:29→19:43)
[2021-10-16] MEDS: dexAMETHasone 2 MG TAB PO SCH (08:29)
[2021-10-16] MEDS: ZINC SULFATE 220 MG CAP PO SCH (08:29)
[2021-10-16 08:43] LABS: Anisocytosis Slight; Basophils # (A) 0.1 k/uL (0-0.2); Basophils % (A) 1 %; Eosinophils # (A) 0.2 k/uL (0-0.7); Eosinophils % (A) 1 %; HCT 28.2 % (34.0-46.0); HGB 8.9 gm/dL (11.4-16.0); Hypochromasia Marked; Lymphocytes # (A) 1.8 k/uL (1.0-4.8); Lymphocytes % (A) 11 %; MCH 29.7 pg (25.0-35.0); MCHC 31.7 g/dL (31.0-37.0); MCV 93.7 fL (80.0-100.0); Macrocytosis Slight; Mean Platelet Volume 8.8; Monocytes % (A) 6 %; Neutrophils # (A) 13.6 k/uL (1.3-7.7); Neutrophils % (A) 81 %; Platelet Count 278 k/uL (150-450); Poikilocytosis Slight; RBC 3.01 m/uL (3.80-5.40); RDW 19.2 % (11.5-15.5); WBC 16.9 k/uL (3.8-10.6)
[2021-10-16] MEDS: CLEVIDIPINE BUTYRATE 25 MG in EMPTY BAG 1 BAG IV SCH ×2 (08:43→13:52)
[2021-10-16 08:51] LABS: African American GFR (CKD) >90 (>60 ml/min/1.73 sqM); Anion Gap 2 mmol/L; Blood Urea Nitrogen 19 mg/dL (7-17); Calcium 8.1 mg/dL (8.4-10.2); Carbon Dioxide 33 mmol/L (22-30); Chloride 102 mmol/L (98-107); Glucose 114 mg/dL (74-99); Non-African American GFR(CKD) >90 (>60 ml/min/1.73 sqM); Potassium 3.6 mmol/L (3.5-5.1); Sodium 137 mmol/L (137-145)
[2021-10-16] MEDS: ROCURONIUM 400 MG in SODIUM CHLORIDE 0.9% 100 ML IV SCH ×2 (10:57→18:51)
--- NOTE | 2021-10-16 12:25 | P.PN ---
Subjective Progress Note Date: 10/16/21 Principal diagnosis: Hypoxemic respiratory failure. Pulmonary consult dated 09/24/2021. 61-year-old female who states that she's been having symptoms, since September 10. The symptoms included shortness of breath, cough, fatigue, muscle aches, and generally just not feeling well. The patient is on vaccinated. She tested positive for coronavirus on September 23. Currently, she is on BiPAP with settings of 16/8, at 100%. Her primary care physician is Dr. Dionte Bal. The patient takes Coumadin chronically for her factor V or Leiden factor deficiency. Initially, on room air, her saturations were in the 70s, and on a nonrebreather, only got up into the mid 80s. In addition to the primary hypercoagulable state, she has a history of DVT, fibromyalgia, pneumonia, arthritis, and degenerative disc disease. She is a lifelong nonsmoker. She is getting saline at 50 mL an hour currently. White count 12.1, with a normal hemoglobin, hematocrit, and platelet count. PTT 24.2 INR 2.5, and d-dimer was 32.13. Sodium 1:30, potassium 3.1, chlorides 106, CO2 20, anion gap 12, BUN 47, and creatinine 1.5. Lactic acid was 1.5. AST was 95 with an ALT of 60. Pro-calcitonin level was 0.52. N-terminal proBNP is 259. Chest x-ray reveals diffuse bilateral infiltrates. CT angiogram was negative for pulmonary embolism, but did show diffuse infiltrates consistent with coronavirus pneumonia. Progress note dated 09/25/2021. 62-year-old female that I saw yesterday in consultation. She's been having coronavirus symptoms since September 10. The patient sees Dr. Dionte Bal as a primary. Yesterday, she was on BiPAP, at 16/8 and 100%. She was doing okay. Today, her saturations are quite low, she is much more tachypnea, and I decided to go ahead and move her to the ICU. The patient may require intubation and mechanical ventilation before the end of the day. CT angiogram was negative for pulmonary embolism. I did speak to her daughter, and her . White count 17.1, hemoglobin 11.9, hematocrit 37.5, platelet count 390,000. PTT is 33.3 INR is 3.5. Blood gases done on 100% show pO2 of only 49, pCO2 32, and a pH is 7.42. Sodium is 142, potassium 3.7, chlorides 113, CO2 21, anion gap 8, BUN 35, with a creatinine of 1.01. Progress note dated 09/26/2021. 62-year-old female, who was admitted with a diagnosis of hypoxemic respiratory failure secondary to coronavirus associated pneumonia. She's had coronavirus symptoms since September 10. Yesterday, she was transferred down to the intensive care unit for worsening respiratory status, and required intubation and mechanical ventilation. In addition, she had a central line placed and an arterial line placed yesterday. She remains on the ventilator, she is on the volume assist control mode, rate 26, tidal volume 400, FiO2 100%, and PEEP of 15. Arterial blood gases show pO2 of 82, pCO2 46, and a pH is 7.27. The patient's getting saline at 50 mL an hour, Nimbex at 1 mcg/kg/m, propofol at 50 mcg/kg/m, and norepinephrine at 2 mcg/m. Tube feedings have yet to be started. Chest x-ray shows a properly placed endotracheal tube, and diffuse bilateral infiltrates, which are essentially unchanged. White count 14.4, hemoglobin 10.5, hematocrit 32.4, and platelet count 250,000. PTT 34.5 with an INR 3.6. Sodium 143, potassium 4, chlorides 118, CO2 22, anion gap 3, BUN 27, and creatinine 0.95. LDH is 930. C-reactive protein is 16.2. CT angiogram was negative for pulmonary embolism. Reevaluated today on 10/08/21, patient remains in the ICU, intubated, mechanically ventilated, does not seem to be doing much better today. Patient is basically about the same, remains on assist control rate of 30 tidal volume 325 FiO2 is up to 85% PEEP remains at 16. Try to increase the PEEP, however there was a significant increase in her peak airway pressure and plateau pressure. Presently her peak airway pressure is 38, and plateau pressure is 34. Patient remains on propofol at 40 mcg/kg/m Nimbex of 0.5 but granted kilo per minute fentanyl 1 mcg/kg/h clevidipine 5 mg per hour. Chest x-ray is basically about the same, continues to show bilateral infiltrates and most likely underlying ARDS. Her labs showed WBC count of 13.0 hemoglobin 10.4. Electrolytes are normal renal profile is normal. ABG showed a pO2 of 61 pCO2 57 pH of 7.47. This was on 75%, and increase her FiO2 to 80% O2 saturation seems to be marginal on the monitor. Patient is off lidocaine drip today. Reevaluated today on 10/09/21, patient remains in the ICU, intubated and mechanically ventilated. Not much of the changes noted in the last few days, remains on assist control rate of 11/18/2024 FiO2 80% and PEEP of 16. ABG remains marginal, her pO2 is 62 pCO2 56 pH of 7.42. Patient remains on Nimbex at 3 mcg/kg/m fentanyl 1 mcg/kg/h propofol 40 mcg/kg/m, she is on clevidipine for milligrams per hour, IV fluids at KVO. Her WBC count is 17.1, and hemoglobin is 11.6. Electrolytes are normal and renal profile is normal. Chest x-ray continues to show multifocalopacities. And subcutaneous emphysema. No evidence of pneumothorax. Endotracheal tube, nasogastric tube and left central line are all in proper positions. Reevaluated today on 10/10/21, patient remains in the ICU, intubated and mechanically ventilated. She is presently on assist control rate of 30 tidal volume 325 FiO2 70% PEEP of 16. Her ABG showed a pO2 of 79 pCO2 48 pH of 7.50. Chest x-ray is basically showing no change. Continues to have bilateral infiltrates. Electrolytes are normal bicarb is 37 BUN is 35 creatinine 0.69 WBC count is 15.6 hemoglobin is 10.7. Patient remains on vital HPI 10 mL per hour. She is off level Prax, and her blood pressure seems to be relatively stable. Patient remains sedated and paralyzed, she is on propofol at 50 mcg/kg/m Nimbex at 3 mcg/kg/m fentanyl 12 mcg/kg/h, she is supposed to undergo tracheostomy and PEG tube placement next week, her Eliquis was restarted, needs to be placed on hold once the decision was made whether she is undergoing tracheostomy and PEG tube tomorrow by Dr. balbuena Progress note dated 10/11/2021. 61-year-old female admitted back on September 23. She came in with a diagnosis of coronavirus associated pneumonia. She came to the intensive care unit on the , and was intubated for respiratory failure on 09/25/2021. The patient remains on mechanical ventilator. The patient's on the volume assist control mode, rate 30, tidal volume 325, FiO2 90%, PEEP of 16. Blood gases show pO2 of 62, pCO2 of 51, and a pH is 7.47. The patient's getting saline at 20 mL an hour, propofol at 40 mcg/kg/m, fentanyl at 1 mcg/kg/h, Nimbex at 3 mcg/kg/m, and vital high protein at 10 mL an hour, which is goal. The patient's chest x-ray showed a left-sided pneumothorax, about 20-25%. A #28-Bengali chest tube was inserted today. Also, a fresh arterial line was placed today, and the left radial artery. White count 16.5, hemoglobin 10.6, hematocrit 34.5, platelet count 2 48,000. Sodium 136, potassium 3.6, chlorides 99, CO2 36, anion gap 1, BUN 32, with a creatinine 0.7. Microbiologic studies are all negative. Chest x-ray shows a very properly placed left-sided chest tube, with complete resolution of prior left-sided pneumothorax. Progress note dated 10/12/2021. 61-year-old female admitted back on 09/23/2021. She came in with a diagnosis of coronavirus associated pneumonia. The patient came to the intensive care unit on 09/25/2021, and was intubated on 09/25/2021 for worsening respiratory status. The patient remains on the mechanical ventilator. The patient was to have a tracheostomy and PEG tube placed today, but unfortunately, her hospital course is now been complicated by bilateral pneumothorax, requiring bilateral chest tube placements on October 11, and bleeding from the left chest tube site, since yesterday. That is despite the fact that the patient received fresh frozen plasma, vitamin K, and 4 factor prothrombin complex concentrate. Currently, the patient remains on the volume assist control, rate 30, tidal volume 325, FiO2 90%, and PEEP of 16. Blood gases show pO2 of 74, pCO2 of 58, and a pH is 7.41. The patient's on saline at KVO, propofol at 40 mics per kilogram per minute, Nimbex at 3 mcg/kg/m, fentanyl at 1 mcg/kg/h, norepinephrine at 2 mcg/m, and tube feeds are currently on hold. I did order 1 unit packed red blood cells. I told the nurse to call the physician, they canceled the anticipated surgery today. I was able to speak to the patient's , Taco, at [phone]. He was going to talk to the family about CODE STATUS, and possibly withdrawing life support. White count 17.3, hemoglobin 6.5, down from 10.1, hematocrit 20.4, and platelet count 194,000. PT 10.6 INR 1 PTT fibrinogen 326, and d-dimer is 0.92. Sodium 138, potassium 3.6, chlorides 101, CO2 36, anion gap 1, BUN 30, creatinine 0.69. Sputum is negative. Blood cultures are negative. Chest x-ray shows bilateral chest tubes, without pneumothorax, and diffuse patchy bilateral infiltrates. Progress note dated 10/13/2021. 61-year-old female, admitted back on 09/23/2021. She was admitted with a diagnosis of coronavirus associated pneumonia. He came to the intensive care unit on 09/25/2021, and was intubated on the same day for worsening respiratory status. She remains on mechanical ventilator. The patient was to have a trache ostomy and PEG tube placed, but that was put on hold. She did develop bilateral pneumothoraces, and required bilateral chest tube insertions. At one point, she was bleeding from the left chest tube site. That subsequently, has stopped. She remains on the ventilator, volume assist control, rate 30, tidal volume 325, FiO2 60%, and PEEP of 16. Blood gases show pO2 of 89, pCO2 of 50, and pH is 7. 44. The patient's currently on Nimbex at 3 mics per kilogram per minute, propofol at 50 mcg/kg/m, fentanyl 1 mcg/kg/h, Cleveprex at 11 mg an hour, saline at 20 mL an hour, and vital high protein at 10 mL an hour, which is goal. The tube feeds are currently on hold in anticipation of tracheostomy and PEG tube placement. White count 18, hemoglobin 7.3, hematocrit 22.8, and platelet count 208,000. Sodium 138, potassium 3.6, chlorides 104, CO2 32, anion gap 2, BUN 27, and creatinine 0.62. Microbiologic studies are negative. Chest x-ray shows bilateral chest tubes. No sizable pneumothorax is noted. Subcutaneous air persist. Persistent interstitial densities are noted bilaterally. Progress note dated 10/14/2021. 61-year-old female, admitted back on 09/23/2021. She was admitted with a diagnosis of coronavirus associated pneumonia. She came to the intensive care unit 2 days later, on September 25. She was intubated on the same day, for worsening hypoxemic respiratory failure. The patient is apparently scheduled to have a tracheostomy and PEG tube placement performed today. Tube feeds are on hold. She remains on the ventilator. She is on the volume assist control mode, rate 30, tidal volume 325, FiO2 70%, and PEEP of 16. Arterial blood gases on 60%, show pO2 of 53, pCO2 of 57, and pH is 7.38. The patient's on Cleveprex at 4 mg an hour, fentanyl 1.5 mcg/kg/h, Nimbex at 3 mcg/kg/m, propofol at 50 mcg/kg/m, and saline at KVO. The patient is again seen in room 253. White count was 21.7. Hemoglobin 8.7, hematocrit 27.4, and platelet count was normal. Sodium 138, potassium 3.4, chlorides 103, CO2 35, BUN 25, and creatinine 0.59. Chest x-ray shows improving bilateral infiltrates. Progress note dated 10/15/2021. 61-year-old female, admitted back on 09/23/2021. She is again seen in room 253. She was admitted with a diagnosis of coronavirus associated pneumonia. She came to the intensive care unit on 09/25/2021. She was intubated on 09/25/2021, for worsening respiratory status. The patient underwent tracheostomy and PEG tube placement yesterday, 10/14/2021. She remains on the ventilator. She is on the volume assist control mode, rate 30, tidal volume 325, FiO2 60%, to be dropped down to 50%, and a PEEP of 16. Blood gases show pO2 of 93, pCO2 61, pH is 7.35. The patient is on saline at KVO, propofol at 40 mcg/kg/m, Nimbex at 3 mcg/kg/m, and fentanyl 1 mcg/kg/h. The patient's also on norepinephrine at 2 mcg/m. Tube feedings are on hold. The patient has [address] This is slightly from the right chest tube. Thus far, microbiology is negative. We will discontinue the Diflucan. Currently, the patient is not on any antibiotics. We'll resume the patient's Eliquis, at 5 mg twice a day. White count 21.5, hemoglobin 8.3, hematocrit 27.2, and platelet count normal. Sodium 137, potassium 3.9, chlorides 104, CO2 32, anion gap 1, BUN 22, and creatinine 0.52. Chest x-ray shows patchy bilateral lung infiltrates. Progress note dated 10/16/2021. 61-year-old female, admitted back on 09/23/2021. The patient was again seen in room 253. She was admitted with a diagnosis of coronavirus associated pneumonia. She came to the intensive care unit on September 25. She was intubated on 09/25/2021. The patient underwent tracheostomy and PEG tube placement on 10/14/2021. She remains on the ventilator. Currently, she is on the volume assist control mode, rate 30, with a respiratory rate of 33. Tidal volume is 325. FiO2 60%, and PEEP of 16. Blood gases show pO2 of 80, pCO2 of 58, and a pH is 7.41. The patient is currently on propofol at 50 mcg/kg/m, saline at 20 mL an hour, Nimbex at 5 mcg/kg/m, and fentanyl 1.5 mcg/kg/h. The patient's also getting Cleveprex 5 mg an hour, and vital 1.2 at 10 mL an hour, which is goal. Chest x-ray shows no change. Microbiologic studies are currently negative. There is a small intermittent leak from the right-sided chest tube. The left- sided chest tube shows no leak so ever. The patient should be paralyzed, but apparently is overbreathing the ventilator. We will switch to a different paralytic. In addition, the ventilator may need to be switched out. White count 16.9, hemoglobin 8.9, hematocrit 29.2, and platelet count 278,000. Sodium 137, potassium 3.6, 2, CO2 33, anion gap 2, BUN 19, and creatinine 0.5. Objective - Vital Signs Vital signs: Vital Signs Temp 97.1 F L 10/16/21 08:00 Pulse 99 10/16/21 09:00 Resp 33 H 10/16/21 09:00 BP 151/78 10/16/21 09:00 Pulse Ox 85 L 10/16/21 09:00 Intake & Output 10/15/21 10/16/21 10/16/21 18:59 06:59 18:59 Intake Total 709.448 5991.380 342.137 Output Total 3655 1150 245 Balance -2946.901 307.380 97.137 Weight 95 kg 94.8 kg Intake: IV 253 299 46 .9 220 260 40 pressure bag 33 39 6 Intake, IV Titration 107.515 1153.380 146.137 Amount Cisatracurium 200 mg In 154.936 363.572 Sodium Chloride 0.9% 180 ml @ 1 MCG/KG/MIN 5.16 mls/hr IV .Q24H [facility] Rx#: [id number] Clevidipine Butyrate 25 0 50.666 11.333 mg In Empty Bag 1 bag @ 1 MG/HR 2 mls/hr IV .Q24H ABRAHAM Rx#:[id number] Norepinephrine 8 mg In 16.823 24.929 Sodium Chloride 0.9% 250 ml @ 0.05 MCG/KG/MIN 9. 143 mls/hr IV .Q24H [facility] Rx#:[id number] Rocuronium 400 mg In 12.111 Sodium Chloride 0.9% 100 ml @ 5 MCG/KG/MIN 9.954 mls/hr IV .Q14H4M [facility] Rx# :[id number] fentaNYL (PF) 2,500 mcg 13.34 196.113 22.693 In Sodium Chloride 0.9% 200 ml @ 0.5 MCG/KG/HR 4. 6 mls/hr IV .Q24H [facility] Rx# :[id number] propofoL 1,000 mg In 200 393.1 100 Empty Bag 1 bag @ Titrate IV .Q0M ABRAHAM Rx#: [id number] Tube Feeding 40 130 20 Other 30 130 Output: Chest Tube Drainage 45 Chest Tube Left Lateral 15 Chest Chest Tube Right Lateral 30 Chest Urine 3655 1150 200 Other: Voiding Method Indwelling Catheter Indwelling Catheter Indwelling Catheter ABP, PAP, CO, CI - Last Documented Arterial Blood Pressure 115/69 - Exam No acute distress, sedated and paralyzed, with a midline tracheostomy tube. HEENT examination is grossly unremarkable. Neck supple. Full range of motion. No adenopathy thyromegaly or neck vein distention. Midline tracheostomy tube is noted. Cardiovascular examination reveals regular rhythm rate. S1-S2 normal. No S3 or S4. No discernible murmur noted. Heart rate 99 bpm. Heart sounds are distant. Lungs reveal coarse bilateral rhonchi. Breath sounds are equal bilaterally. No wheezes. No crackles. Saturations are 90 %. The patient has bilateral chest tubes. Abdomen soft, without bowel sounds. No masses. A PEG tube is now noted. Extremities are intact. No cyanosis clubbing or edema. Skin is without rash or lesion. Neurologic examination cannot be assessed as the patient is currently sedated and paralyzed. - Labs CBC & Chem 7: 10/16/21 08:00 10/16/21 08:00 Labs: Abnormal Lab Results - Last 24 Hours (Table) 10/15/21 10/15/21 10/16/21 Range/Units 13:47 17:32 00:27 WBC (3.8-10.6) k/uL RBC (3.80-5.40) m/uL Hgb (11.4-16.0) gm/dL Hct (34.0-46.0) % RDW (11.5-15.5) % Neutrophils # (1.3-7.7) k/uL ABG pCO2 (35-45) mmHg ABG pO2 (83-108) mmHg ABG HCO3 (21-25) mmol/L ABG Total CO2 (19-24) mmol/L Carbon Dioxide (22-30) mmol/L BUN (7-17) mg/dL Creatinine (0.52-1.04) mg/dL Glucose (74-99) mg/dL POC Glucose (mg/dL) 151 H 162 H 134 H (75-99) mg/dL Calcium (8.4-10.2) mg/dL 10/16/21 10/16/21 10/16/21 Range/Units 05:50 08:00 08:00 WBC 16.9 H (3.8-10.6) k/uL RBC 3.01 L (3.80-5.40) m/uL Hgb 8.9 L (11.4-16.0) gm/dL Hct 28.2 L (34.0-46.0) % RDW 19.2 H (11.5-15.5) % Neutrophils # 13.6 H (1.3-7.7) k/uL ABG pCO2 58 H (35-45) mmHg ABG pO2 80 L (83-108) mmHg ABG HCO3 37 H (21-25) mmol/L ABG Total CO2 39 H (19-24) mmol/L Carbon Dioxide 33 H (22-30) mmol/L BUN 19 H (7-17) mg/dL Creatinine 0.50 L (0.52-1.04) mg/dL Glucose 114 H (74-99) mg/dL POC Glucose (mg/dL) (75-99) mg/dL Calcium 8.1 L (8.4-10.2) mg/dL Assessment and Plan Assessment: Acute hypoxemic respiratory failure secondary to coronavirus associated pneumonia, status post intubation, and mechanical ventilation on 09/25/2021, with tracheostomy and PEG tube placement on 10/14/2021. No evidence of pulmonary embolism on CT angiogram. Acute bilateral pneumothoraces, status post bilateral chest tube placements, on 10/11/2021. Acute blood loss anemia. Extensive subcutaneous emphysema, as a complication of mechanical ventilation and coronavirus associated pneumonia. Acute deep vein thrombosis. Mild transaminitis secondary to coronavirus infection. Primary hypercoagulable state in the form of Leiden factor deficiency/factor V deficiency. Prior history of DVT. History of fibromyalgia. History of arthritis. History of degenerative disc disease. Lifelong non-tobacco user. Plan: Plan dated 09/24/2021. The patient is not a candidate for REM, and she's had symptoms for more than 7 days. Actually sees, symptoms date back to September 10. 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 The patient does qualify for Decadron. In addition, the patient should be on vitamin C, vitamin D3, and zinc. Additional recommendations and suggestions are forthcoming. Prognosis is guarded. The patient is currently on Levaquin. That may disqualify her from [facility]. Plan dated 09/25/2021. The patient's blood gases suggests worsening respiratory status, and therefore, the patient was transferred down to the intensive care unit. The patient was on saline, at 50 mL an hour. Blood gases again showed a pO2 of only 49, and a pCO2 32, with a pH is 7.42. This is on BiPAP, at 100%. I did speak to her and her about the fact that she may require intubation and mechanical ventilation, before the end of the day. She will continue on Coumadin, as well as Decadron, and vitamins. The patient was placed on Levaquin. Her pro- calcitonin level was elevated. This likely disqualifies her for [facility]. We will continue to follow and make recommendations where appropriate. Prognosis is certainly guarded. Plan dated 09/26/2021. The patient was intubated and mechanically ventilated yesterday. A right radial art line was placed as was a left-sided triple-lumen catheter. The patient's currently sedated and paralyzed. Tube feedings will start today. She did get fluid resuscitation yesterday. She remains on a small dose of norepinephrine. The patient will have labs ordered for the morning including a CBC, basic m etabolic profile, and blood gas. The patient remains on Coumadin. In addition, the patient will have a chest x-ray ordered for the morning. Tube feedings will be started today. Prognosis is guarded. We will continue to follow and make recommendations where appropriate. Prognosis is certainly very guarded. Plan dated 10/11/2021. Labs, x-rays, and medications are reviewed. A left-sided chest tube was placed by our team today. In addition, surgery has been consulted for possible tracheostomy and PEG tube placement. The patient remains on propofol, fentanyl, and Nimbex. The patient is on the mechanical ventilator, on 90% FiO2 and PEEP of 16. Additional recommendations and suggestions are forthcoming. Tube feedings are currently going to be placed on hold for possible tracheostomy and PEG tube placement. We will continue to follow and make recommendations where appropriate. Plan dated 10/12/2021. The patient developed bilateral pneumothoraces, and required bilateral chest t ube placements, on October 11. There is some bleeding from the left-sided chest tube. The patient did receive vitamin K, fresh shows some plasma, and 4 factor prothrombin complex concentrate. In addition, the patient is going to receive 1 unit of packed red blood cells. I asked the nurse to call the surgeon to delay surgery. I was able to speak to the patient's , Taco. He is going to t alk to the rest of the family about CODE STATUS and whether or not they wish to withdrawal of I support. I spoke to him for about 20 minutes on the phone. The patient remains on propofol, fentanyl, Nimbex, and norepinephrine. Prognosis is poor. We will continue to follow and make recommendations where appropriate. Plan dated 10/13/2021. The patient hopefully will proceed to tracheostomy and PEG tube placement. The patient's currently much more stable today than she was yesterday. We did talk to the about CODE STATUS. He has not made any decision as yet. The patient remains on Nimbex, propofol, and fentanyl. The patient is also receiving Cleveprex for elevated blood pressure. We will continue to follow make recommendations where appropriate. Prognosis is guarded. Labs, x-rays, and medications are all reviewed. Plan dated 10/14/2021. The patient should have a tracheostomy and PEG tube placed today. Currently, the patient remains on fentanyl, Nimbex, and propofol. In addition, the patient's on Cleveprex for blood pressure control. The patient's FiO2 was increased from 60% up to 70%, based on the blood gas today. We will continue to follow and make recommendations where appropriate. Labs, x-rays, and medications are all reviewed. Prognosis is guarded. I did speak to the about CODE STATUS. The patient is full code for now. Plan dated 10/15/2021. The patient had a tracheostomy and PEG tube placed on October 14. The patient remains on propofol, Nimbex, and fentanyl. We will attempt to discontinue the Nimbex at possible. The patient is started back on Eliquis, at 5 mg twice a day. Currently, we are going to DC Diflucan. There is a small air leak on the right chest tube area chest x-ray does not show any evidence of pneumothorax. She does have bilateral diffuse infiltrates. Currently, the patient is a full code. I did speak to the a couple days ago. Prognosis is guarded. We will continue to follow make recommendations where appropriate. The patient has now been in the hospital for 22 days. Plan dated 10/16/2021. The patient had a tracheostomy tube placed and PEG tube placement on October 14. The patient remains on Nimbex fentanyl and propofol. Interestingly, she does not appear that she is properly paralyzed. We may need to change to different paralytic or change off the ventilator. The patient remains on Cleveprex at 5 mg an hour. The patient's microbiologic studies are negative. Chest x-ray s hows no changes. Additional recommendations and suggestions are forthcoming. We will continue to follow make recommendations where appropriate. Culture data as mentioned is negative. The patient is not on any antibiotics. Prognosis is guarded. Time with Patient: Greater than 30
[2021-10-16 13:15] LABS: Glucose,Whole Blood 193 mg/dL (75-99)
--- NOTE | 2021-10-16 13:25 | XR ---
EXAMINATION TYPE: XR chest 1V portable DATE OF EXAM: 10/16/2021 COMPARISON: 10/16/2021 HISTORY: Covid pneumonia TECHNIQUE: Single frontal view of the chest is obtained. FINDINGS. No change in the tracheostomy tube, right PICC line, and chest tubes. No change in the diffuse interstitial and alveolar infiltrates. No pneumothorax or large pleural effusion. The osseous structures are intact. IMPRESSION: Acute cardiopulmonary disease as described above with no interval change.
[2021-10-16] MEDS: LACTATED RINGERS 1,000 ML IV SCH (13:51)
--- NOTE | 2021-10-16 14:09 | P.PN ---
Subjective Progress Note Date: 10/16/21 CHIEF COMPLAINT: Coronavirus pneumonia HISTORY OF PRESENT ILLNESS: The patient is a 61-year-old female status post tracheostomy and gastrostomy placement 10/14/2021. She is on anticoagulation. Patient is on full mechanical ventilatory support. She is on tube feeds. ROS: No fevers or chills. No new chest pain. No productive sputum PHYSICAL EXAM: VITAL SIGNS: Reviewed CONSTITUTIONAL: Well developed and in no acute distress. EYES: Conjuctivae without sclera icterus. Extraocular movements grossly intact. HEAD, EARS, NOSE, THROAT: Moist buccal mucosa. Head is atraumatic, normocephalic. No nasal drainage. Tracheostomy site intact. RESPIRATORY: Non-labored respirations and equal bilateral excursions. CARDIOVASCULAR: Palpable 2+ radial pulses. ABDOMEN: Gastrostomy tube intact. MUSCULOSKELETAL: No gross deformity of the lower extremities noted. No clubbing. No cyanosis. SKIN: Good skin turgor. Well perfused. NEUROLOGIC: Cranial nerves II through XII grossly intact. No focal or lateralizing signs. PSYCH: Sedated. CLINICAL LABS: Reviewed. WBC elevated over 16,000. ASSESSMENT: 1. Coronavirus pneumonia with complications 2. Status post tracheostomy and gastrostomy 3. Leukocytosis with sepsis 4. Anticoagulated PLAN: 1. Monitor for bleeding. 2. Tube feeds per dietitian Objective - Vital Signs Vital signs: Vital Signs Temp 97.1 F L 10/16/21 08:00 Pulse 99 10/16/21 09:00 Resp 33 H 10/16/21 09:00 BP 151/78 10/16/21 09:00 Pulse Ox 85 L 10/16/21 09:00 Intake & Output 10/15/21 10/16/21 10/16/21 18:59 06:59 18:59 Intake Total 020.593 5186.380 330.026 Output Total 3655 1150 245 Balance -2946.901 307.380 85.026 Weight 95 kg 94.8 kg Intake: IV 253 299 46 .9 220 260 40 pressure bag 33 39 6 Intake, IV Titration 841.341 7584.380 134.026 Amount Cisatracurium 200 mg In 154.936 363.572 Sodium Chloride 0.9% 180 ml @ 1 MCG/KG/MIN 5.16 mls/hr IV .Q24H [facility] Rx#: [id number] Clevidipine Butyrate 25 0 50.666 11.333 mg In Empty Bag 1 bag @ 1 MG/HR 2 mls/hr IV .Q24H [facility] Rx#:[id number] Norepinephrine 8 mg In 16.823 24.929 Sodium Chloride 0.9% 250 ml @ 0.05 MCG/KG/MIN 9. 143 mls/hr IV .Q24H [facility] Rx#:[id number] fentaNYL (PF) 2,500 mcg 13.34 196.113 22.693 In Sodium Chloride 0.9% 200 ml @ 0.5 MCG/KG/HR 4. 6 mls/hr IV .Q24H [facility] Rx# :[id number] propofoL 1,000 mg In 200 393.1 100 Empty Bag 1 bag @ Titrate IV .Q0M [facility] Rx#: [id number] Tube Feeding 40 130 20 Other 30 130 Output: Chest Tube Drainage 45 Chest Tube Left Lateral 15 Chest Chest Tube Right Lateral 30 Chest Urine 3655 1150 200 Other: Voiding Method Indwelling Catheter Indwelling Catheter Indwelling Catheter ABP, PAP, CO, CI - Last Documented Arterial Blood Pressure 115/69 - Labs CBC & Chem 7: 10/16/21 08:00 10/16/21 08:00 Labs: Abnormal Lab Results - Last 24 Hours (Table) 10/15/21 10/15/21 10/15/21 Range/Units 12:11 13:47 17:32 WBC (3.8-10.6) k/uL RBC (3.80-5.40) m/uL Hgb (11.4-16.0) gm/dL Hct (34.0-46.0) % RDW (11.5-15.5) % Neutrophils # (1.3-7.7) k/uL ABG pCO2 (35-45) mmHg ABG pO2 (83-108) mmHg ABG HCO3 (21-25) mmol/L ABG Total CO2 (19-24) mmol/L Carbon Dioxide (22-30) mmol/L BUN (7-17) mg/dL Creatinine (0.52-1.04) mg/dL Glucose (74-99) mg/dL POC Glucose (mg/dL) 167 H 151 H 162 H (75-99) mg/dL Calcium (8.4-10.2) mg/dL 10/16/21 10/16/21 10/16/21 Range/Units 00:27 05:50 08:00 WBC 16.9 H (3.8-10.6) k/uL RBC 3.01 L (3.80-5.40) m/uL Hgb 8.9 L (11.4-16.0) gm/dL Hct 28.2 L (34.0-46.0) % RDW 19.2 H (11.5-15.5) % Neutrophils # 13.6 H (1.3-7.7) k/uL ABG pCO2 58 H (35-45) mmHg ABG pO2 80 L (83-108) mmHg ABG HCO3 37 H (21-25) mmol/L ABG Total CO2 39 H (19-24) mmol/L Carbon Dioxide (22-30) mmol/L BUN (7-17) mg/dL Creatinine (0.52-1.04) mg/dL Glucose (74-99) mg/dL POC Glucose (mg/dL) 134 H (75-99) mg/dL Calcium (8.4-10.2) mg/dL 10/16/21 Range/Units 08:00 WBC (3.8-10.6) k/uL RBC (3.80-5.40) m/uL Hgb (11.4-16.0) gm/dL Hct (34.0-46.0) % RDW (11.5-15.5) % Neutrophils # (1.3-7.7) k/uL ABG pCO2 (35-45) mmHg ABG pO2 (83-108) mmHg ABG HCO3 (21-25) mmol/L ABG Total CO2 (19-24) mmol/L Carbon Dioxide 33 H (22-30) mmol/L BUN 19 H (7-17) mg/dL Creatinine 0.50 L (0.52-1.04) mg/dL Glucose 114 H (74-99) mg/dL POC Glucose (mg/dL) (75-99) mg/dL Calcium 8.1 L (8.4-10.2) mg/dL
[2021-10-16] MEDS ORDERED: SODIUM CHLORIDE 0.9% 1,000 ML IV ONE (14:23)
[2021-10-16 15:56] LABS: ABG Base Excess 15.5 mmol/L; ABG HCO3 37 mmol/L (21-25); ABG PCO2 40 mmHg (35-45); ABG PO2 185 mmHg (83-108); ABG TCO2 39 mmol/L (19-24); Allen Test Performed? Yes
[2021-10-16 16:08] LABS: ABG PH 7.58 (7.35-7.45)
[2021-10-16 18:17] LABS: Glucose,Whole Blood 132 mg/dL (75-99)
--- NOTE | 2021-10-16 18:48 | PCN ---
PROCEDURE NOTE PULMONARY/CRITICAL CARE PROCEDURE NOTE: PROCEDURE PERFORMED: Bronchoscopy, airway examination and therapeutic lavage. PREOP DIAGNOSIS: Increased airway pressures. POSTOP DIAGNOSIS: Increased airway pressures. OPERATORS: Dr. Pope, Dr. Ansari DESCRIPTION OF PROCEDURE: There was informed consent. There was universal timeout. We used a portable bronchoscope at the bedside. The patient's procedure took place in room 253. The patient was currently sedated and paralyzed at the time of the procedure. The patient was on 100% oxygen on the ventilator. The bronchoscope was inserted through the bronchoscope adapter connected to the tracheostomy tube. There were some secretions noted in the tracheostomy tube. They were suctioned. Next the bronchoscope was pushed down into the lung. We evaluated the right lung and left lung. We looked at the right upper lobe, right middle lobe, right lower lobe on the right, left upper lobe proper, lingula and left lower lobe on the left. There was minimal secretions. There was no dominant mass or tumor. There was no bleeding. No samples were taken. During the procedure, under direct visualization, we manipulated the tracheostomy tube to see if we could improve our returned tidal volumes. We did determine that the patient's tracheostomy tube needed to be in a slightly different position than it was to get better returns on the ventilator. The bronchoscope was then withdrawn. The patient tolerated the procedure well. There was no immediate complication. No samples were taken. TORY / RICHIEN: [id number] /
[2021-10-16 23:31] LABS: Glucose,Whole Blood 129 mg/dL (75-99)
[2021-10-17] MEDS: ROCURONIUM 400 MG in SODIUM CHLORIDE 0.9% 100 ML IV SCH ×3 (01:55→17:27)
[2021-10-17] MEDS: SODIUM CHLORIDE 0.9% 1,000 ML IV SCH (04:22)
[2021-10-17] MEDS: CLEVIDIPINE BUTYRATE 25 MG in EMPTY BAG 1 BAG IV SCH ×4 (04:27→23:15)
[2021-10-17 05:08] LABS: ABG Base Excess 9.1 mmol/L; ABG HCO3 33 mmol/L (21-25); ABG Oxygen Saturation 89.7 % (94-97); ABG PCO2 47 mmHg (35-45); ABG PH 7.46 (7.35-7.45); ABG TCO2 35 mmol/L (19-24)
[2021-10-17 05:11] LABS: ABG PO2 54 mmHg (83-108); Allen Test Performed? no
[2021-10-17 06:14] LABS: African American GFR (CKD) >90 (>60 ml/min/1.73 sqM); Anion Gap 5 mmol/L; Blood Urea Nitrogen 20 mg/dL (7-17); Calcium 7.2 mg/dL (8.4-10.2); Carbon Dioxide 27 mmol/L (22-30); Chloride 106 mmol/L (98-107); Glucose 104 mg/dL (74-99); Non-African American GFR(CKD) >90 (>60 ml/min/1.73 sqM); Potassium 2.9 mmol/L (3.5-5.1); Sodium 138 mmol/L (137-145)
--- NOTE | 2021-10-17 06:26 | XR ---
EXAMINATION TYPE: XR chest 1V portable DATE OF EXAM: 10/17/2021 COMPARISON: 10/16/2021 HISTORY: Shortness of breath TECHNIQUE: Single frontal view of the chest is obtained. FINDINGS: No change in tracheostomy tube, chest tube and right sided PICC line. No change in diffuse axial and airspace infiltrates. No pneumothorax or large pleural effusion. Osseous structures intact. IMPRESSION: No interval change in the acute cardiopulmonary disease.
[2021-10-17 06:59] LABS: Glucose,Whole Blood 120 mg/dL (75-99)
[2021-10-17] MEDS: INSULIN ASPART (NovoLOG) 100 UNIT/ML VIAL SQ SCH ×3 (07:03→17:36)
[2021-10-17 07:28] LABS: ABG HCO3 34 mmol/L (21-25); ABG Oxygen Saturation 95.4 % (94-97); ABG PCO2 48 mmHg (35-45); ABG PH 7.46 (7.35-7.45); ABG PO2 69 mmHg (83-108); ABG TCO2 35 mmol/L (19-24); Allen Test Performed? Yes
[2021-10-17] MEDS: NOREPINEPHRINE 8 MG in SODIUM CHLORIDE 0.9% 250 ML IV SCH (08:04)
[2021-10-17] MEDS: APIXABAN 5 MG TAB PO SCH ×2 (08:07→08:08)
[2021-10-17] MEDS: ARTIFICIAL TEARS-HYPROMELLOSE DROPS 15 ML BTL BOTH EYES SCH ×4 (08:08→21:01)
[2021-10-17] MEDS: ASCORBIC ACID 500 MG TAB PO SCH ×2 (08:08→21:00)
[2021-10-17] MEDS: dexAMETHasone 2 MG TAB PO SCH (08:09)
[2021-10-17] MEDS: CHLORHEXIDINE GLUCONATE 15 ML CUP MUCOUS MEM SCH ×2 (08:09→21:00)
[2021-10-17] MEDS: ZINC SULFATE 220 MG CAP PO SCH (08:13)
[2021-10-17] MEDS: PANTOPRAZOLE 40 MG/10 ML VIAL IV SCH (08:13)
[2021-10-17] MEDS: FUROSEMIDE 10 MG/ML 4 ML VIAL IV SCH (08:13)
[2021-10-17] MEDS: ERGOCALCIFEROL 1,250 MCG (50,000 IU) CAPSULE PO SCH (08:14)
[2021-10-17 08:57] LABS: ALT 24 U/L (4-34); AST 19 U/L (14-36); African American GFR (CKD) >90 (>60 ml/min/1.73 sqM); Albumin 2.3 g/dL (3.5-5.0); Alkaline Phosphatase 51 U/L (38-126); Anion Gap 4 mmol/L; Blood Urea Nitrogen 21 mg/dL (7-17); Calcium 7.8 mg/dL (8.4-10.2); Carbon Dioxide 32 mmol/L (22-30); Chloride 100 mmol/L (98-107); Glucose 111 mg/dL (74-99); Non-African American GFR(CKD) >90 (>60 ml/min/1.73 sqM); Potassium 3.1 mmol/L (3.5-5.1); Sodium 136 mmol/L (137-145); Total Bilirubin 0.4 mg/dL (0.2-1.3); Total Protein 4.6 g/dL (6.3-8.2)
[2021-10-17 08:59] LABS: Anisocytosis Slight; Basophils # (A) 0.1 k/uL (0-0.2); Basophils % (A) 0 %; Eosinophils # (A) 0.2 k/uL (0-0.7); Eosinophils % (A) 1 %; HCT 24.4 % (34.0-46.0); HGB 8.2 gm/dL (11.4-16.0); Hypochromasia Moderate; Lymphocytes # (A) 1.8 k/uL (1.0-4.8); Lymphocytes % (A) 12 %; MCH 30.7 pg (25.0-35.0); MCHC 33.7 g/dL (31.0-37.0); MCV 91.2 fL (80.0-100.0); Mean Platelet Volume 8.8; Monocytes # (A) 1.1 k/uL (0-1.0); Monocytes % (A) 7 %; Neutrophils # (A) 12.6 k/uL (1.3-7.7); Neutrophils % (A) 80 %; Platelet Count 271 k/uL (150-450); Poikilocytosis Slight; RBC 2.68 m/uL (3.80-5.40); RDW 18.8 % (11.5-15.5); WBC 15.8 k/uL (3.8-10.6)
[2021-10-17 11:21] LABS: Glucose,Whole Blood 131 mg/dL (75-99)
--- NOTE | 2021-10-17 11:43 | PCN ---
PROCEDURE NOTE PROCEDURE: Right radial arterial line. PREOP DIAGNOSIS: Frequent blood draws and blood gas monitoring. POSTOP DIAGNOSIS: Frequent blood draws and blood gas monitoring. There was universal timeout. PERCOLATOR OPERATOR: Dr. Pope and Dr. Ansari. ARTERIAL LINE PLACEMENT: Indications: Hemodynamic monitoring. A time-out was completed verifying correct patient, procedure, site, positioning, and implant(s) or special equipment if applicable. Silvino's test was performed to ensure adequate perfusion. The patient's right wrist was prepped and draped in sterile fashion. 1% Lidocaine was used to anesthetize the area. An 18G Arrow arterial line was introduced into the radial artery. The catheter was threaded over the guide wire and the needle was removed with appropriate pulsatile blood return. Blood loss was minimal. The catheter was then sutured in place to the skin and a sterile dressing applied. Perfusion to the extremity distal to the point of catheter insertion was checked and found to be adequate. The patient tolerated the procedure well and there were no complications. The catheter was sutured in place and sterile dressing was applied by the nurse. Again, there was no immediate complication and the patient tolerated the procedure very well. MMODL / IJN: [id number] /
[2021-10-17] MEDS: LACTATED RINGERS 1,000 ML IV SCH (12:01)
[2021-10-17] MEDS: fentaNYL (PF) 2,500 MCG in SODIUM CHLORIDE 0.9% 200 ML IV SCH (12:54)
--- NOTE | 2021-10-17 13:32 | P.PN ---
Subjective Progress Note Date: 10/17/21 Principal diagnosis: Hypoxemic respiratory failure. Pulmonary consult dated 09/24/2021. 61-year-old female who states that she's been having symptoms, since September 10. The symptoms included shortness of breath, cough, fatigue, muscle aches, and generally just not feeling well. The patient is on vaccinated. She tested positive for coronavirus on September 23. Currently, she is on BiPAP with settings of 16/8, at 100%. Her primary care physician is Dr. Dionte Bal. The patient takes Coumadin chronically for her factor V or Leiden factor deficiency. Initially, on room air, her saturations were in the 70s, and on a nonrebreather, only got up into the mid 80s. In addition to the primary hypercoagulable state, she has a history of DVT, fibromyalgia, pneumonia, arthritis, and degenerative disc disease. She is a lifelong nonsmoker. She is getting saline at 50 mL an hour currently. White count 12.1, with a normal hemoglobin, hematocrit, and platelet count. PTT 24.2 INR 2.5, and d-dimer was 32.13. Sodium 1:30, potassium 3.1, chlorides 106, CO2 20, anion gap 12, BUN 47, and creatinine 1.5. Lactic acid was 1.5. AST was 95 with an ALT of 60. Pro-calcitonin level was 0.52. N-terminal proBNP is 259. Chest x-ray reveals diffuse bilateral infiltrates. CT angiogram was negative for pulmonary embolism, but did show diffuse infiltrates consistent with coronavirus pneumonia. Progress note dated 09/25/2021. 62-year-old female that I saw yesterday in consultation. She's been having coronavirus symptoms since September 10. The patient sees Dr. Dionte Bal as a primary. Yesterday, she was on BiPAP, at 16/8 and 100%. She was doing okay. Today, her saturations are quite low, she is much more tachypnea, and I decided to go ahead and move her to the ICU. The patient may require intubation and mechanical ventilation before the end of the day. CT angiogram was negative for pulmonary embolism. I did speak to her daughter, and her . White count 17.1, hemoglobin 11.9, hematocrit 37.5, platelet count 390,000. PTT is 33.3 INR is 3.5. Blood gases done on 100% show pO2 of only 49, pCO2 32, and a pH is 7.42. Sodium is 142, potassium 3.7, chlorides 113, CO2 21, anion gap 8, BUN 35, with a creatinine of 1.01. Progress note dated 09/26/2021. 62-year-old female, who was admitted with a diagnosis of hypoxemic respiratory failure secondary to coronavirus associated pneumonia. She's had coronavirus symptoms since September 10. Yesterday, she was transferred down to the intensive care unit for worsening respiratory status, and required intubation and mechanical ventilation. In addition, she had a central line placed and an arterial line placed yesterday. She remains on the ventilator, she is on the volume assist control mode, rate 26, tidal volume 400, FiO2 100%, and PEEP of 15. Arterial blood gases show pO2 of 82, pCO2 46, and a pH is 7.27. The patient's getting saline at 50 mL an hour, Nimbex at 1 mcg/kg/m, propofol at 50 mcg/kg/m, and norepinephrine at 2 mcg/m. Tube feedings have yet to be started. Chest x-ray shows a properly placed endotracheal tube, and diffuse bilateral infiltrates, which are essentially unchanged. White count 14.4, hemoglobin 10.5, hematocrit 32.4, and platelet count 250,000. PTT 34.5 with an INR 3.6. Sodium 143, potassium 4, chlorides 118, CO2 22, anion gap 3, BUN 27, and creatinine 0.95. LDH is 930. C-reactive protein is 16.2. CT angiogram was negative for pulmonary embolism. Reevaluated today on 10/08/21, patient remains in the ICU, intubated, mechanically ventilated, does not seem to be doing much better today. Patient is basically about the same, remains on assist control rate of 30 tidal volume 325 FiO2 is up to 85% PEEP remains at 16. Try to increase the PEEP, however there was a significant increase in her peak airway pressure and plateau pressure. Presently her peak airway pressure is 38, and plateau pressure is 34. Patient remains on propofol at 40 mcg/kg/m Nimbex of 0.5 but granted kilo per minute fentanyl 1 mcg/kg/h clevidipine 5 mg per hour. Chest x-ray is basically about the same, continues to show bilateral infiltrates and most likely underlying ARDS. Her labs showed WBC count of 13.0 hemoglobin 10.4. Electrolytes are normal renal profile is normal. ABG showed a pO2 of 61 pCO2 57 pH of 7.47. This was on 75%, and increase her FiO2 to 80% O2 saturation seems to be marginal on the monitor. Patient is off lidocaine drip today. Reevaluated today on 10/09/21, patient remains in the ICU, intubated and mechanically ventilated. Not much of the changes noted in the last few days, remains on assist control rate of 11/18/2024 FiO2 80% and PEEP of 16. ABG remains marginal, her pO2 is 62 pCO2 56 pH of 7.42. Patient remains on Nimbex at 3 mcg/kg/m fentanyl 1 mcg/kg/h propofol 40 mcg/kg/m, she is on clevidipine for milligrams per hour, IV fluids at KVO. Her WBC count is 17.1, and hemoglobin is 11.6. Electrolytes are normal and renal profile is normal. Chest x-ray continues to show multifocalopacities. And subcutaneous emphysema. No evidence of pneumothorax. Endotracheal tube, nasogastric tube and left central line are all in proper positions. Reevaluated today on 10/10/21, patient remains in the ICU, intubated and mechanically ventilated. She is presently on assist control rate of 30 tidal volume 325 FiO2 70% PEEP of 16. Her ABG showed a pO2 of 79 pCO2 48 pH of 7.50. Chest x-ray is basically showing no change. Continues to have bilateral infiltrates. Electrolytes are normal bicarb is 37 BUN is 35 creatinine 0.69 WBC count is 15.6 hemoglobin is 10.7. Patient remains on vital HPI 10 mL per hour. She is off level Prax, and her blood pressure seems to be relatively stable. Patient remains sedated and paralyzed, she is on propofol at 50 mcg/kg/m Nimbex at 3 mcg/kg/m fentanyl 12 mcg/kg/h, she is supposed to undergo tracheostomy and PEG tube placement next week, her Eliquis was restarted, needs to be placed on hold once the decision was made whether she is undergoing tracheostomy and PEG tube tomorrow by Dr. balbuena Progress note dated 10/11/2021. 61-year-old female admitted back on September 23. She came in with a diagnosis of coronavirus associated pneumonia. She came to the intensive care unit on the , and was intubated for respiratory failure on 09/25/2021. The patient remains on mechanical ventilator. The patient's on the volume assist control mode, rate 30, tidal volume 325, FiO2 90%, PEEP of 16. Blood gases show pO2 of 62, pCO2 of 51, and a pH is 7.47. The patient's getting saline at 20 mL an hour, propofol at 40 mcg/kg/m, fentanyl at 1 mcg/kg/h, Nimbex at 3 mcg/kg/m, and vital high protein at 10 mL an hour, which is goal. The patient's chest x-ray showed a left-sided pneumothorax, about 20-25%. A #28-Indonesian chest tube was inserted today. Also, a fresh arterial line was placed today, and the left radial artery. White count 16.5, hemoglobin 10.6, hematocrit 34.5, platelet count 2 48,000. Sodium 136, potassium 3.6, chlorides 99, CO2 36, anion gap 1, BUN 32, with a creatinine 0.7. Microbiologic studies are all negative. Chest x-ray shows a very properly placed left-sided chest tube, with complete resolution of prior left-sided pneumothorax. Progress note dated 10/12/2021. 61-year-old female admitted back on 09/23/2021. She came in with a diagnosis of coronavirus associated pneumonia. The patient came to the intensive care unit on 09/25/2021, and was intubated on 09/25/2021 for worsening respiratory status. The patient remains on the mechanical ventilator. The patient was to have a tracheostomy and PEG tube placed today, but unfortunately, her hospital course is now been complicated by bilateral pneumothorax, requiring bilateral chest tube placements on October 11, and bleeding from the left chest tube site, since yesterday. That is despite the fact that the patient received fresh frozen plasma, vitamin K, and 4 factor prothrombin complex concentrate. Currently, the patient remains on the volume assist control, rate 30, tidal volume 325, FiO2 90%, and PEEP of 16. Blood gases show pO2 of 74, pCO2 of 58, and a pH is 7.41. The patient's on saline at KVO, propofol at 40 mics per kilogram per minute, Nimbex at 3 mcg/kg/m, fentanyl at 1 mcg/kg/h, norepinephrine at 2 mcg/m, and tube feeds are currently on hold. I did order 1 unit packed red blood cells. I told the nurse to call the physician, they canceled the anticipated surgery today. I was able to speak to the patient's , Taco, at [phone]. He was going to talk to the family about [facility], and possibly withdrawing life support. White count 17.3, hemoglobin 6.5, down from 10.1, hematocrit 20.4, and platelet count 194,000. PT 10.6 INR 1 PTT fibrinogen 326, and d-dimer is 0.92. Sodium 138, potassium 3.6, chlorides 101, CO2 36, anion gap 1, BUN 30, creatinine 0.69. Sputum is negative. Blood cultures are negative. Chest x-ray shows bilateral chest tubes, without pneumothorax, and diffuse patchy bilateral infiltrates. Progress note dated 10/13/2021. 61-year-old female, admitted back on 09/23/2021. She was admitted with a diagnosis of coronavirus associated pneumonia. He came to the intensive care unit on 09/25/2021, and was intubated on the same day for worsening respiratory status. She remains on mechanical ventilator. The patient was to have a trache ostomy and PEG tube placed, but that was put on hold. She did develop bilateral pneumothoraces, and required bilateral chest tube insertions. At one point, she was bleeding from the left chest tube site. That subsequently, has stopped. She remains on the ventilator, volume assist control, rate 30, tidal volume 325, FiO2 60%, and PEEP of 16. Blood gases show pO2 of 89, pCO2 of 50, and pH is 7. 44. The patient's currently on Nimbex at 3 mics per kilogram per minute, propofol at 50 mcg/kg/m, fentanyl 1 mcg/kg/h, Cleveprex at 11 mg an hour, saline at 20 mL an hour, and vital high protein at 10 mL an hour, which is goal. The tube feeds are currently on hold in anticipation of tracheostomy and PEG tube placement. White count 18, hemoglobin 7.3, hematocrit 22.8, and platelet count 208,000. Sodium 138, potassium 3.6, chlorides 104, CO2 32, anion gap 2, BUN 27, and creatinine 0.62. Microbiologic studies are negative. Chest x-ray shows bilateral chest tubes. No sizable pneumothorax is noted. Subcutaneous air persist. Persistent interstitial densities are noted bilaterally. Progress note dated 10/14/2021. 61-year-old female, admitted back on 09/23/2021. She was admitted with a diagnosis of coronavirus associated pneumonia. She came to the intensive care unit 2 days later, on September 25. She was intubated on the same day, for worsening hypoxemic respiratory failure. The patient is apparently scheduled to have a tracheostomy and PEG tube placement performed today. Tube feeds are on hold. She remains on the ventilator. She is on the volume assist control mode, rate 30, tidal volume 325, FiO2 70%, and PEEP of 16. Arterial blood gases on 60%, show pO2 of 53, pCO2 of 57, and pH is 7.38. The patient's on Cleveprex at 4 mg an hour, fentanyl 1.5 mcg/kg/h, Nimbex at 3 mcg/kg/m, propofol at 50 mcg/kg/m, and saline at KVO. The patient is again seen in room 253. White count was 21.7. Hemoglobin 8.7, hematocrit 27.4, and platelet count was normal. Sodium 138, potassium 3.4, chlorides 103, CO2 35, BUN 25, and creatinine 0.59. Chest x-ray shows improving bilateral infiltrates. Progress note dated 10/15/2021. 61-year-old female, admitted back on 09/23/2021. She is again seen in room 253. She was admitted with a diagnosis of coronavirus associated pneumonia. She came to the intensive care unit on 09/25/2021. She was intubated on 09/25/2021, for worsening respiratory status. The patient underwent tracheostomy and PEG tube placement yesterday, 10/14/2021. She remains on the ventilator. She is on the volume assist control mode, rate 30, tidal volume 325, FiO2 60%, to be dropped down to 50%, and a PEEP of 16. Blood gases show pO2 of 93, pCO2 61, pH is 7.35. The patient is on saline at KVO, propofol at 40 mcg/kg/m, Nimbex at 3 mcg/kg/m, and fentanyl 1 mcg/kg/h. The patient's also on norepinephrine at 2 mcg/m. Tube feedings are on hold. The patient has [address] This is slightly from the right chest tube. Thus far, microbiology is negative. We will discontinue the Diflucan. Currently, the patient is not on any antibiotics. We'll resume the patient's Eliquis, at 5 mg twice a day. White count 21.5, hemoglobin 8.3, hematocrit 27.2, and platelet count normal. Sodium 137, potassium 3.9, chlorides 104, CO2 32, anion gap 1, BUN 22, and creatinine 0.52. Chest x-ray shows patchy bilateral lung infiltrates. Progress note dated 10/16/2021. 61-year-old female, admitted back on 09/23/2021. The patient was again seen in room 253. She was admitted with a diagnosis of coronavirus associated pneumonia. She came to the intensive care unit on September 25. She was intubated on 09/25/2021. The patient underwent tracheostomy and PEG tube placement on 10/14/2021. She remains on the ventilator. Currently, she is on the volume assist control mode, rate 30, with a respiratory rate of 33. Tidal volume is 325. FiO2 60%, and PEEP of 16. Blood gases show pO2 of 80, pCO2 of 58, and a pH is 7.41. The patient is currently on propofol at 50 mcg/kg/m, saline at 20 mL an hour, Nimbex at 5 mcg/kg/m, and fentanyl 1.5 mcg/kg/h. The patient's also getting Cleveprex 5 mg an hour, and vital 1.2 at 10 mL an hour, which is goal. Chest x-ray shows no change. Microbiologic studies are currently negative. There is a small intermittent leak from the right-sided chest tube. The left- sided chest tube shows no leak so ever. The patient should be paralyzed, but apparently is overbreathing the ventilator. We will switch to a different paralytic. In addition, the ventilator may need to be switched out. White count 16.9, hemoglobin 8.9, hematocrit 29.2, and platelet count 278,000. Sodium 137, potassium 3.6, 2, CO2 33, anion gap 2, BUN 19, and creatinine 0.5. Progress note dated 10/17/2021. 61-year-old female, admitted back on 09/23/2021. The patient was again seen in room 253. She was admitted with a diagnosis of coronavirus associated pneumonia. She came to the intensive care unit on 09/25/2021, and was intubated on the same day. The patient underwent tracheostomy and PEG tube placement on 10/14/2021. She remains on the ventilator. Yesterday, or having issues with her tracheostomy tube. Her returned tidal lines were much lower than that should've been. We were able to do a bronchoscopy, suction her airway, and reposition the tracheostomy tube, which I believe was against the wall of the trachea. Currently, she is doing much better. She is on the volume assist control mode, rate 30, tidal volume 420, FiO2 80%, and PEEP of 16. Blood gases show a PaO2 of 69, pCO2 of 48, pH is 7.46. The patient is on propofol at 50 mcg/kg/m, saline at 20 mL an hour, fentanyl 1.5 mcg/kg/h, and rocuronium at 11 mcg/kg/m. The patient is also getting vital 1.2 at 10 mL an hour, which is goal. Today we will attempt to wean the FiO2. In addition, the patient will need a new arterial line, at the right radial site. Current labs include a white count 15.8, hemoglobin 8.2, hematocrit 24.4, and platelet count 271,000. Sodium 136, potassium 3.1, chlorides 100, CO2 32, anion gap 4, BUN 21, and creatinine 0.48. Chest x-ray today, shows diffuse infiltrates, and is largely unchanged. Objective - Vital Signs Vital signs: Vital Signs Temp 97.1 F L 10/17/21 08:00 Pulse 89 10/17/21 11:00 Resp 30 H 10/17/21 11:00 BP 158/83 10/17/21 11:00 Pulse Ox 99 10/17/21 11:00 Intake & Output 10/16/21 10/17/21 10/17/21 18:59 06:59 18:59 Intake Total 1277.526 945.252 753.313 Output Total 2350 585 1900 Balance -1072.474 360.252 -1146.687 Weight 94.5 kg Intake: IV 253 299 115 .9 220 260 100 pressure bag 33 39 15 Intake, IV Titration 724.526 486.252 468.313 Amount Cisatracurium 200 mg In 200 Sodium Chloride 0.9% 180 ml @ 1 MCG/KG/MIN 5.16 mls/hr IV .Q24H [facility] Rx#: [id number] Clevidipine Butyrate 25 61.833 29.5 0 mg In Empty Bag 1 bag @ 1 MG/HR 2 mls/hr IV .Q24H ABRAHAM Rx#:[id number] Norepinephrine 8 mg In 0 21.942 Sodium Chloride 0.9% 250 ml @ 0.05 MCG/KG/MIN 9. 143 mls/hr IV .Q24H [facility] Rx#:[id number] Rocuronium 400 mg In 140.000 140.000 140.000 Sodium Chloride 0.9% 100 ml @ 5 MCG/KG/MIN 9.954 mls/hr IV .Q14H4M [facility] Rx# :[id number] fentaNYL (PF) 2,500 mcg 22.693 194.81 228.313 In Sodium Chloride 0.9% 200 ml @ 0.5 MCG/KG/HR 4. 6 mls/hr IV .Q24H [facility] Rx# :[id number] propofoL 1,000 mg In 300 100 100 Empty Bag 1 bag @ Titrate IV .Q0M [facility] Rx#: [id number] Tube Feeding 110 160 40 Other 190 130 Output: Chest Tube Drainage 45 15 Chest Tube Left Lateral 15 0 Chest Chest Tube Right Lateral 30 15 Chest Urine 2305 585 1885 Other: Voiding Method Indwelling Catheter Indwelling Catheter Indwelling Catheter ABP, PAP, CO, CI - Last Documented Arterial Blood Pressure 166/69 - Exam No acute distress, sedated and paralyzed, with a midline tracheostomy tube. HEENT examination is grossly unremarkable. Neck supple. Full range of motion. No adenopathy thyromegaly or neck vein distention. Midline tracheostomy tube is noted. Cardiovascular examination reveals regular rhythm rate. S1-S2 normal. No S3 or S4. No discernible murmur noted. Heart rate 89 bpm. Heart sounds are distant. Lungs reveal coarse bilateral rhonchi. Breath sounds are equal bilaterally. No wheezes. No crackles. Saturations are 99 %. The patient has bilateral chest tubes. Abdomen soft, without bowel sounds. No masses. A PEG tube is now noted. Extremities are intact. No cyanosis clubbing or edema. Skin is without rash or lesion. Neurologic examination cannot be assessed as the patient is currently sedated and paralyzed. - Labs CBC & Chem 7: 10/17/21 08:33 10/17/21 08:33 Labs: Abnormal Lab Results - Last 24 Hours (Table) 10/16/21 10/16/21 10/16/21 Range/Units 15:29 18:16 23:29 WBC (3.8-10.6) k/uL RBC (3.80-5.40) m/uL Hgb (11.4-16.0) gm/dL Hct (34.0-46.0) % RDW (11.5-15.5) % Neutrophils # (1.3-7.7) k/uL Monocytes # (0-1.0) k/uL ABG pH 7.58 H* (7.35-7.45) ABG pCO2 (35-45) mmHg ABG pO2 185 H (83-108) mmHg ABG HCO3 37 H (21-25) mmol/L ABG Total CO2 39 H (19-24) mmol/L ABG O2 Saturation 100.0 H (94-97) % Sodium (137-145) mmol/L Potassium (3.5-5.1) mmol/L Carbon Dioxide (22-30) mmol/L BUN (7-17) mg/dL Creatinine (0.52-1.04) mg/dL Glucose (74-99) mg/dL POC Glucose (mg/dL) 132 H 129 H (75-99) mg/dL Calcium (8.4-10.2) mg/dL Total Protein (6.3-8.2) g/dL Albumin (3.5-5.0) g/dL 10/17/21 10/17/21 10/17/21 Range/Units 04:58 05:00 06:57 WBC (3.8-10.6) k/uL RBC (3.80-5.40) m/uL Hgb (11.4-16.0) gm/dL Hct (34.0-46.0) % RDW (11.5-15.5) % Neutrophils # (1.3-7.7) k/uL Monocytes # (0-1.0) k/uL ABG pH 7.46 H (7.35-7.45) ABG pCO2 47 H (35-45) mmHg ABG pO2 54 L* (83-108) mmHg ABG HCO3 33 H (21-25) mmol/L ABG Total CO2 35 H (19-24) mmol/L ABG O2 Saturation 89.7 L (94-97) % Sodium (137-145) mmol/L Potassium 2.9 L (3.5-5.1) mmol/L Carbon Dioxide (22-30) mmol/L BUN 20 H (7-17) mg/dL Creatinine 0.39 L (0.52-1.04) mg/dL Glucose 104 H (74-99) mg/dL POC Glucose (mg/dL) 120 H (75-99) mg/dL Calcium 7.2 L (8.4-10.2) mg/dL Total Protein (6.3-8.2) g/dL Albumin (3.5-5.0) g/dL 10/17/21 10/17/21 10/17/21 Range/Units 07:26 08:33 08:33 WBC 15.8 H (3.8-10.6) k/uL RBC 2.68 L (3.80-5.40) m/uL Hgb 8.2 L (11.4-16.0) gm/dL Hct 24.4 L (34.0-46.0) % RDW 18.8 H (11.5-15.5) % Neutrophils # 12.6 H (1.3-7.7) k/uL Monocytes # 1.1 H (0-1.0) k/uL ABG pH 7.46 H (7.35-7.45) ABG pCO2 48 H (35-45) mmHg ABG pO2 69 L (83-108) mmHg ABG HCO3 34 H (21-25) mmol/L ABG Total CO2 35 H (19-24) mmol/L ABG O2 Saturation (94-97) % Sodium 136 L (137-145) mmol/L Potassium 3.1 L (3.5-5.1) mmol/L Carbon Dioxide 32 H (22-30) mmol/L BUN 21 H (7-17) mg/dL Creatinine 0.48 L (0.52-1.04) mg/dL Glucose 111 H (74-99) mg/dL POC Glucose (mg/dL) (75-99) mg/dL Calcium 7.8 L (8.4-10.2) mg/dL Total Protein 4.6 L (6.3-8.2) g/dL Albumin 2.3 L (3.5-5.0) g/dL 10/17/21 Range/Units 11:20 WBC (3.8-10.6) k/uL RBC (3.80-5.40) m/uL Hgb (11.4-16.0) gm/dL Hct (34.0-46.0) % RDW (11.5-15.5) % Neutrophils # (1.3-7.7) k/uL Monocytes # (0-1.0) k/uL ABG pH (7.35-7.45) ABG pCO2 (35-45) mmHg ABG pO2 (83-108) mmHg ABG HCO3 (21-25) mmol/L ABG Total CO2 (19-24) mmol/L ABG O2 Saturation (94-97) % Sodium (137-145) mmol/L Potassium (3.5-5.1) mmol/L Carbon Dioxide (22-30) mmol/L BUN (7-17) mg/dL Creatinine (0.52-1.04) mg/dL Glucose (74-99) mg/dL POC Glucose (mg/dL) 131 H (75-99) mg/dL Calcium (8.4-10.2) mg/dL Total Protein (6.3-8.2) g/dL Albumin (3.5-5.0) g/dL Assessment and Plan Assessment: Acute hypoxemic respiratory failure secondary to coronavirus associated pneumonia, status post intubation, and mechanical ventilation on 09/25/2021, with tracheostomy and PEG tube placement on 10/14/2021. No evidence of pulmonary embolism on CT angiogram. Acute bilateral pneumothoraces, status post bilateral chest tube placements, on 10/11/2021. Status post bronchoscopy, on 10/16/2021, to reposition the tracheostomy tube. Acute blood loss anemia. Extensive subcutaneous emphysema, as a complication of mechanical ventilation and coronavirus associated pneumonia. Acute deep vein thrombosis. Mild transaminitis secondary to coronavirus infection. Primary hypercoagulable state in the form of Leiden factor deficiency/factor V deficiency. Prior history of DVT. History of fibromyalgia. History of arthritis. History of degenerative disc disease. Lifelong non-tobacco user. Plan: Plan dated 09/24/2021. The patient is not a candidate for REM, and she's had symptoms for more than 7 days. Actually sees, symptoms date back to September 10. 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 The patient does qualify for Decadron. In addition, the patient should be on vitamin C, vitamin D3, and zinc. Additional recommendations and suggestions are forthcoming. Prognosis is guarded. The patient is currently on Levaquin. That may disqualify her from [facility]. Plan dated 09/25/2021. The patient's blood gases suggests worsening respiratory status, and therefore, the patient was transferred down to the intensive care unit. The patient was on saline, at 50 mL an hour. Blood gases again showed a pO2 of only 49, and a pCO2 32, with a pH is 7.42. This is on BiPAP, at 100%. I did speak to her and her about the fact that she may require intubation and mechanical ventilation, before the end of the day. She will continue on Coumadin, as well as Decadron, and vitamins. The patient was placed on Levaquin. Her pro- calcitonin level was elevated. This likely disqualifies her for [facility]. We will continue to follow and make recommendations where appropriate. Prognosis is certainly guarded. Plan dated 09/26/2021. The patient was intubated and mechanically ventilated yesterday. A right radial art line was placed as was a left-sided triple-lumen catheter. The patient's currently sedated and paralyzed. Tube feedings will start today. She did get fluid resuscitation yesterday. She remains on a small dose of norepinephrine. The patient will have labs ordered for the morning including a CBC, basic metabolic profile, and blood gas. The patient remains on Coumadin. In addition, the patient will have a chest x-ray ordered for the morning. Tube feedings will be started today. Prognosis is guarded. We will continue to follow and make recommendations where appropriate. Prognosis is certainly very guarded. Plan dated 10/11/2021. Labs, x-rays, and medications are reviewed. A left-sided chest tube was placed by our team today. In addition, surgery has been consulted for possible tra cheostomy and PEG tube placement. The patient remains on propofol, fentanyl, and Nimbex. The patient is on the mechanical ventilator, on 90% FiO2 and PEEP of 16. Additional recommendations and suggestions are forthcoming. Tube feedings are currently going to be placed on hold for possible tracheostomy and PEG tube placement. We will continue to follow and make recommendations where appropriate. Plan dated 10/12/2021. The patient developed bilateral pneumothoraces, and required bilateral chest tube placements, on October 11. There is some bleeding from the left-sided chest tube. The patient did receive vitamin K, fresh shows some plasma, and 4 factor prothrombin complex concentrate. In addition, the patient is going to receive 1 unit of packed red blood cells. I asked the nurse to call the surgeon to delay surgery. I was able to speak to the patient's , Taco. He is going to talk to the rest of the family about CODE STATUS and whether or not they wish to withdrawal of I support. I spoke to him for about 20 minutes on the phone. The patient remains on propofol, fentanyl, Nimbex, and norepinephrine. Prognosis is poor. We will continue to follow and make recommendations where appropriate. Plan dated 10/13/2021. The patient hopefully will proceed to tracheostomy and PEG tube placement. The patient's currently much more stable today than she was yesterday. We did talk to the about CODE STATUS. He has not made any decision as yet. The patient remains on Nimbex, propofol, and fentanyl. The patient is also receiving Cleveprex for elevated blood pressure. We will continue to follow make recommendations where appropriate. Prognosis is guarded. Labs, x-rays, and medications are all reviewed. Plan dated 10/14/2021. The patient should have a tracheostomy and PEG tube placed today. Currently, the patient remains on fentanyl, Nimbex, and propofol. In addition, the patient's on Cleveprex for blood pressure control. The patient's FiO2 was increased from 60% up to 70%, based on the blood gas today. We will continue to follow and make recommendations where appropriate. Labs, x-rays, and medications are all reviewed. Prognosis is guarded. I did speak to the about CODE STATUS. The patient is full code for now. Plan dated 10/15/2021. The patient had a tracheostomy and PEG tube placed on October 14. The patient remains on propofol, Nimbex, and fentanyl. We will attempt to discontinue the Nimbex at possible. The patient is started back on Eliquis, at 5 mg twice a day. Currently, we are going to DC Diflucan. There is a small air leak on the right chest tube area chest x-ray does not show any evidence of pneumothorax. She does have bilateral diffuse infiltrates. Currently, the patient is a full code. I did speak to the a couple days ago. Prognosis is guarded. We will continue to follow make recommendations where appropriate. The patient has now been in the hospital for 22 days. Plan dated 10/16/2021. The patient had a tracheostomy tube placed and PEG tube placement on October 14. The patient remains on Nimbex fentanyl and propofol. Interestingly, she does not appear that she is properly paralyzed. We may need to change to different paralytic or change off the ventilator. The patient remains on Cleveprex at 5 mg an hour. The patient's microbiologic studies are negative. Chest x-ray shows no changes. Additional recommendations and suggestions are forthcoming. We will continue to follow make recommendations where appropriate. Culture data as mentioned is negative. The patient is not on any antibiotics. Prognosis is guarded. Plan dated 10/17/2021. The patient had a bronchoscopy performed yesterday, to help reposition the tracheostomy tube. I believe that was up against the wall of the trachea. The patient's exhaled tidal volumes are much lower than that should've been. The patient remains on rocuronium, fentanyl, and propofol. In addition, the patient had a new arterial line placed, in the right radial artery. The other arterial line was not working properly. Culture data thus far negative. The patient is currently not on antibiotics. We will continue to follow and make recommendations where appropriate. Prognosis is guarded. I did speak to the mayuri mayes's and daughter yesterday. Time with Patient: Greater than 30
--- NOTE | 2021-10-17 14:52 | P.PN ---
Subjective Progress Note Date: 10/17/21 CHIEF COMPLAINT: Coronavirus pneumonia HISTORY OF PRESENT ILLNESS: The patient is a 61-year-old female status post tracheostomy and gastrostomy placement 10/14/2021. She had an arterial line placement including bronchoscopy today. She is on full mechanical ventilation. ROS: No fevers or chills. No new chest pain. PHYSICAL EXAM: VITAL SIGNS: Reviewed CONSTITUTIONAL: Well developed and in no acute distress. EYES: Conjuctivae without sclera icterus. Extraocular movements grossly intact. HEAD, EARS, NOSE, THROAT: Moist buccal mucosa. Head is atraumatic, normocephalic. No nasal drainage. Tracheostomy site intact. RESPIRATORY: Non-labored respirations and equal bilateral excursions. CARDIOVASCULAR: Palpable 2+ radial pulses. ABDOMEN: Gastrostomy tube intact. MUSCULOSKELETAL: No gross deformity of the lower extremities noted. No clubbing. No cyanosis. SKIN: Good skin turgor. Well perfused. NEUROLOGIC: Cranial nerves II through XII grossly intact. No focal or lateralizing signs. PSYCH: Sedated. CLINICAL LABS: Reviewed. WBC elevated over 16,000, trending downward. ASSESSMENT: 1. Coronavirus pneumonia with complications 2. Status post tracheostomy and gastrostomy 3. Leukocytosis with sepsis PLAN: 1. Supportive management for pneumonia. 2. Continue ventilatory support Objective - Vital Signs Vital signs: Vital Signs Temp 97.2 F L 10/17/21 12:00 Pulse 90 10/17/21 14:00 Resp 30 H 10/17/21 14:00 BP 147/71 10/17/21 14:00 Pulse Ox 91 L 10/17/21 14:00 Intake & Output 10/16/21 10/17/21 10/17/21 18:59 06:59 18:59 Intake Total 1277.526 945.252 852.313 Output Total 2350 585 2325 Balance -1072.474 360.252 -1472.687 Weight 94.5 kg Intake: IV 253 299 184 .9 220 260 160 pressure bag 33 39 24 Intake, IV Titration 724.526 486.252 468.313 Amount Cisatracurium 200 mg In 200 Sodium Chloride 0.9% 180 ml @ 1 MCG/KG/MIN 5.16 mls/hr IV .Q24H [facility] Rx#: [id number] Clevidipine Butyrate 25 61.833 29.5 0 mg In Empty Bag 1 bag @ 1 MG/HR 2 mls/hr IV .Q24H [facility] Rx#:[id number] Norepinephrine 8 mg In 0 21.942 Sodium Chloride 0.9% 250 ml @ 0.05 MCG/KG/MIN 9. 143 mls/hr IV .Q24H [facility] Rx#:[id number] Rocuronium 400 mg In 140.000 140.000 140.000 Sodium Chloride 0.9% 100 ml @ 5 MCG/KG/MIN 9.954 mls/hr IV .Q14H4M [facility] Rx# :[id number] fentaNYL (PF) 2,500 mcg 22.693 194.81 228.313 In Sodium Chloride 0.9% 200 ml @ 0.5 MCG/KG/HR 4. 6 mls/hr IV .Q24H [facility] Rx# :[id number] propofoL 1,000 mg In 300 100 100 Empty Bag 1 bag @ Titrate IV .Q0M [facility] Rx#: [id number] Tube Feeding 110 160 70 Other 190 130 Output: Chest Tube Drainage 45 15 Chest Tube Left Lateral 15 0 Chest Chest Tube Right Lateral 30 15 Chest Urine 2305 585 2310 Other: Voiding Method Indwelling Catheter Indwelling Catheter Indwelling Catheter ABP, PAP, CO, CI - Last Documented Arterial Blood Pressure 155/64 - Labs CBC & Chem 7: 10/17/21 08:33 10/17/21 08:33 Labs: Abnormal Lab Results - Last 24 Hours (Table) 10/16/21 10/16/21 10/16/21 Range/Units 15:29 18:16 23:29 WBC (3.8-10.6) k/uL RBC (3.80-5.40) m/uL Hgb (11.4-16.0) gm/dL Hct (34.0-46.0) % RDW (11.5-15.5) % Neutrophils # (1.3-7.7) k/uL Monocytes # (0-1.0) k/uL ABG pH 7.58 H* (7.35-7.45) ABG pCO2 (35-45) mmHg ABG pO2 185 H (83-108) mmHg ABG HCO3 37 H (21-25) mmol/L ABG Total CO2 39 H (19-24) mmol/L ABG O2 Saturation 100.0 H (94-97) % Sodium (137-145) mmol/L Potassium (3.5-5.1) mmol/L Carbon Dioxide (22-30) mmol/L BUN (7-17) mg/dL Creatinine (0.52-1.04) mg/dL Glucose (74-99) mg/dL POC Glucose (mg/dL) 132 H 129 H (75-99) mg/dL Calcium (8.4-10.2) mg/dL Total Protein (6.3-8.2) g/dL Albumin (3.5-5.0) g/dL 10/17/21 10/17/21 10/17/21 Range/Units 04:58 05:00 06:57 WBC (3.8-10.6) k/uL RBC (3.80-5.40) m/uL Hgb (11.4-16.0) gm/dL Hct (34.0-46.0) % RDW (11.5-15.5) % Neutrophils # (1.3-7.7) k/uL Monocytes # (0-1.0) k/uL ABG pH 7.46 H (7.35-7.45) ABG pCO2 47 H (35-45) mmHg ABG pO2 54 L* (83-108) mmHg ABG HCO3 33 H (21-25) mmol/L ABG Total CO2 35 H (19-24) mmol/L ABG O2 Saturation 89.7 L (94-97) % Sodium (137-145) mmol/L Potassium 2.9 L (3.5-5.1) mmol/L Carbon Dioxide (22-30) mmol/L BUN 20 H (7-17) mg/dL Creatinine 0.39 L (0.52-1.04) mg/dL Glucose 104 H (74-99) mg/dL POC Glucose (mg/dL) 120 H (75-99) mg/dL Calcium 7.2 L (8.4-10.2) mg/dL Total Protein (6.3-8.2) g/dL Albumin (3.5-5.0) g/dL 10/17/21 10/17/21 10/17/21 Range/Units 07:26 08:33 08:33 WBC 15.8 H (3.8-10.6) k/uL RBC 2.68 L (3.80-5.40) m/uL Hgb 8.2 L (11.4-16.0) gm/dL Hct 24.4 L (34.0-46.0) % RDW 18.8 H (11.5-15.5) % Neutrophils # 12.6 H (1.3-7.7) k/uL Monocytes # 1.1 H (0-1.0) k/uL ABG pH 7.46 H (7.35-7.45) ABG pCO2 48 H (35-45) mmHg ABG pO2 69 L (83-108) mmHg ABG HCO3 34 H (21-25) mmol/L ABG Total CO2 35 H (19-24) mmol/L ABG O2 Saturation (94-97) % Sodium 136 L (137-145) mmol/L Potassium 3.1 L (3.5-5.1) mmol/L Carbon Dioxide 32 H (22-30) mmol/L BUN 21 H (7-17) mg/dL Creatinine 0.48 L (0.52-1.04) mg/dL Glucose 111 H (74-99) mg/dL POC Glucose (mg/dL) (75-99) mg/dL Calcium 7.8 L (8.4-10.2) mg/dL Total Protein 4.6 L (6.3-8.2) g/dL Albumin 2.3 L (3.5-5.0) g/dL 10/17/21 Range/Units 11:20 WBC (3.8-10.6) k/uL RBC (3.80-5.40) m/uL Hgb (11.4-16.0) gm/dL Hct (34.0-46.0) % RDW (11.5-15.5) % Neutrophils # (1.3-7.7) k/uL Monocytes # (0-1.0) k/uL ABG pH (7.35-7.45) ABG pCO2 (35-45) mmHg ABG pO2 (83-108) mmHg ABG HCO3 (21-25) mmol/L ABG Total CO2 (19-24) mmol/L ABG O2 Saturation (94-97) % Sodium (137-145) mmol/L Potassium (3.5-5.1) mmol/L Carbon Dioxide (22-30) mmol/L BUN (7-17) mg/dL Creatinine (0.52-1.04) mg/dL Glucose (74-99) mg/dL POC Glucose (mg/dL) 131 H (75-99) mg/dL Calcium (8.4-10.2) mg/dL Total Protein (6.3-8.2) g/dL Albumin (3.5-5.0) g/dL
[2021-10-17 17:28] LABS: Glucose,Whole Blood 200 mg/dL (75-99)
--- NOTE | 2021-10-17 22:14 | P.PN ---
Subjective Progress Note Date: 10/16/21 This is a 61-year-old female who was recently admitted with acute COVID-19 pneumonia with acute COVID-19 bilateral interstitial pneumonia and also with transaminitis and being closely monitored. Patient remains in the ICU and currently intubated and sedated with an FiO2 of 70% and PEEP is 18. 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 Patient did have a venous Doppler study done recently which showed left leg DVT and patient is maintained on Eliquis will continue. Patient also continues on empiric antibiotics and awaiting for sputum culture finalized. Patient was started on IV cefepime and will continue. Patient is also continued on oral dexamethasone along with vitamin and zinc supplements and will continue. Patient with some mild volume overload and given a dose of IV Lasix push today. 09/29/2021 Patient is seen and evaluated this morning continues to be closely monitored in the ICU and continues to be on mechanical ventilation and sedated. FiO2 was increased at 80% with a PEEP of 18 and oxygen saturations between 87-91%. Patient developing subcutaneous emphysema in the neck and chest wall area and chest x-ray today shows bilateral multifocal and confluent opacification is redemonstrated consistent with COVID-19 infection with a new small left apical pneumothorax estimated under 5% with new pneumomediastinum and recurrent overlying subcutaneous emphysema noted. Patient is white blood count mildly elevated at 16.1 and is continued on oral dexamethasone along with oral eliquis for anticoagulation. Patient continues to be on IV cefepime and blood and sputum cultures are negative thus far. 09/30/2021 Patient is seen today continues to be closely monitored in the ICU with multiple medical consultations following. Patient continues to be mechanically intubated and sedated with continued subcutaneous emphysema noted. Chest xray shows a trace left apical pneumothorax that is minimally smaller 7mm versus 1cm previously, extensive bilateral subcutaneous emphysema persists and diffuse interstitial changes and bilateral patchy opacities persist with slight improvement in aeration in the lower lungs. Per nursing staff corbin was clogged with copious amounts of white discharge and will add diflucan and corbin catheter has been changed and draining adequately. Patient continues on IV cefepime. Patient tolerating tube feeds and will continue. 10/01/2021 Patient is seen and evaluated in follow up this morning and continues to be closely monitored. Multiple medical consultations following and patient con tinues to be on mechanical vent and sedated. Patient continues on IV Cefepime and diflucan. Patient chest xray today shows stable extensive subcutaneous emphysema, no pneumothorax, and patchy bilateral lung infiltrates remain present. INflammatory markers trending down. 10/04/2021 Patient is seen in follow-up continues to be closely monitored in the ICU. Patient remains on mechanical vent with an FI02 of 65% and peep is 18. Weaning trials being attempted with pulmonary raised printer following closely. Patient continues with extensive subq emphysema noted on exam. 10/05/2021 Patient Is seen and evaluated this morning with continued attempts at weaning and continues on mechanical vent and intubated with pulmonary raised printer following closely. Patient remains on Eliquis which will be held as surgery Dr. Nelson was consulted for possible PEG and trach tube placement for unsuccessful attempts at weaning from ventilation and prolonged hospitalization on mechanical vent. Chest x-ray today shows recurrent tiny left apical pneumothorax estimated under 5% with worsening overlying subcutaneous emphysema and again pneumomediastinum redemonstrated with multifocal confluent opacification's redemonstrated consistent with COVID-19 infection and/or arts are redemonstrated with no significant change from one day previously. Patient continues on FiO2 of 65% and PEEP was weaned down to 14 today. IV cefepime discontinued. 10/06/2021 Patient is seen in follow-up this morning per nursing staff patient had multiple runs of ectopy an irregular heart rate and rhythms with PVCs and cardiology consulted. Patient was placed on lidocaine drip and was originally on eliquis is currently on hold for possible PEG and trach placement with general surgery following. Patient had difficulty maintaining oxygen saturations and FiO2 was increased to 100% and PEEP continues at 14. Multiple medical consultations following and patient continues on oral steroids along with vitamin and zinc supplements along with fluconazole. Patient being started on IV Lasix daily and recommend close monitoring of electrolytes and kidney functions. 10/07/2021 Patient is seen in follow-up this morning continues to be monitored closely in the ICU with multiple medical consultations following. Patient is currently on mechanical vent with an FiO2 of 80% and PEEP is 16. General surgery also following for possible PEG and trach placement and will need to discuss with surgery about when this will occur. Patient remains on fluconazole. She also continues on vitamin and zinc supplements along with oral dexamethasone, clevidipine, Nimbex, IV Lasix, fentanyl and propofol and is off norepinephrine. Chest x-ray shows stable bilateral lung infiltrates. 10/08/2021 Patient is seen this morning continues to be on mechanical vent with an FiO2 of 85% and PEEP of 16. Patient continues with extensive subcutaneous emphysema and plans are for possible PEG and trach placement although on hold until possibly next week once more stable. Patient continues on Cleviprex along with fentanyl and propofol and is receiving IV Lasix daily. Patient also continues on lidocaine drip which is currently on hold and cardiology is following closely. Anticoagulant was resumed for now again until more stable to undergo PEG and trach placement. Chest x-ray today shows persistent bilateral multifocal and confluent increased opacification is with persistent overlying subcutaneous emphysema noted in pneumomediastinum is again redemonstrated. 10/09/2021 Patient evaluated today in ICU mechanical ventilation with FiO2 of 80%. Chest x-ray this morning shows similar multifocal airspace opacities and stable support lines and tubes. Similar subcutaneous emphysema scattered throughout the visualized thorax. PEG and trach plan for next week once more stable. Current meds include Cleviprex, Nimbex, fentanyl, propofol. She is receiving IV fluconazole, as well as IV Lasix. Levophed and Lidocaine gtt;s are on hold. Positive bowel sounds. Current vitals afebrile, heart rate 71, blood pressure 135/60 and oxygen saturation is 93%. Respirations 30. Labs today, white count 17, hemoglobin 11.6, sodium 139, potassium 3.8, BUN 34, creatinine 0.91, CO2 33, calcium 8.7, ALT 54, albumin 2.8 with blood sugars in the 100s. 10/10/2021 Patient evaluated today in the ICU on the mechanical VENT with fio2 of 100%. Po sitive bowel movement today, Stage 2 pressure ulcer on coccyx per RN, optifoam ordered. Per RN they were unable to patient as she was desaturating. They're unable to wean Fi02 currently as she does desaturate with any time of movement. She was lying more on her right side during evaluation and pulse ox was dropping into high 80s she was being repositioned by nurses. Plan is to PEG/TRACH patient tomorrow. Last family update was 4 days ago. We will call and discuss case today. Patient is afebrile, heart rate 84, respirations 30, blood pressure 141/55, 92% oxygen saturation on 100% Fi02, which was increased today up from 70 Fi02%. Labs today show WBC of 15.6, hgbl 10.7, sodium 138, potassium 3.9, chloride 100, CO2 37, glucose 117, calcium 8.2. Chest xray today shows pneumonia, ARDS. 10/11/2021 Patient is seen and evaluated in follow-up this morning continues to be closely monitored in the ICU and patient is continued on FiO2 of 90% and PEEP is 16 with multiple medical consultations following. Chest x-ray today shows new left- sided pneumothorax estimated 10-20% with overlying subcutaneous emphysema and pneumomediastinum redemonstrated with bilateral multifocal and confluent opac ification's redemonstrated consistent with COVID-19 infection and/or arts and no significant change from one day previous. Patient is status post left chest tube insertion with pulmonary raised printer. Cardiology following and patient is off lidocaine drip and maintaining sinus rhythm. Patient also continues on vitamin and zinc supplements along with oral dexamethasone and patient continues on IV Lasix 40 mg daily. Patient also continues off norepinephrine and is currently maintained on IV cefepime along with fluconazole. General surgery following as well and plan is for peg and trach placement in the am 10/12/2021 Patient is seen in the ICU this morning continues to be closely monitored by multiple medical consultations. Patient was scheduled for PEG and trach placement with general surgery Dr. Nelson today although canceled as patient became hypotensive requiring Levophed along with acute blood loss anemia and hemoglobin dropped to 6.5 this morning requiring 1 unit of PRBC. Patient continues with left chest tube with pneumothorax and chest x-ray today shows the jahaira is difficult to clearly identify on the present exam and the ET tube may be approximately 1 cm from the jahaira and there are bilateral chest tubes present with continued diffuse interstitial opacification is and more focal bibasilar opacification is with subcutaneous emphysema persists along the upper chest with slight improvement on the left. No appreciable pneumothorax noted. Patient having worsening right pleural effusion last night and received a right- sided chest tube with pulmonary raised printer. FiO2 is 90% and PEEP of 16. Again overall prognosis remains extremely poor and guarded. 10/13/2021 Patient is seen in follow-up this morning in the ICU with multiple medical consultations following. Lengthy discussion was had with pulmonary raised printer and family members and would like to continue with full CODE STATUS and plan is in place for PEG tube and tracheostomy placement tomorrow. Anticoagulant on hold and Dr. Nelson plans for surgery tomorrow. Patient continues on oral dexamethasone along with IV cefepime, vitamin and zinc supplements. Patient also continues on Cleviprex and Nimbex. Patient also continues on fentanyl and propofol and will continue. Chest x-ray today shows stable portable chest with bilateral chest tubes without sizable pneumothorax identified and continued subcutaneous air persists with persistent interstitial changes bilaterally with airspace disease in the bilateral lung bases that are unchanged. FiO2 is 60% and PEEP of 16. 10/14/2021 Patient is seen and evaluated in the ICU being closely monitored with multiple medical consultations following. at the bedside today and had detailed discussion with overall prognosis. Plan is to proceed with PEG tube and tracheostomy placement with surgery Dr. Nelson today and anticoagulant continues to be on hold for this procedure. Patient continues on mechanical ventilation with an FiO2 of 70% and PEEP of 16. Chest x-ray today shows improving infiltrate with bibasilar residual and bilateral chest tubes remain present with no pneumothorax evident on either side and again subcutaneous emphysema is noted. 10/15/2021 Patient is seen in the ICU being closely monitored. Patient is status post PEG and trach placement yesterday. Chest x-ray today shows bilateral patchy lung infiltrates greater at the right base with diffuse increased lung markings and bilateral chest tubes remain present and subcutaneous emphysema on the right is diminished. Patient continues with an FI02 of 60 and peep is 16. To resume tube feeds per surgery. Patient continues on norepinephrine and sedation. Patient is receiving IV lasix daily. 10/16/2021 Patient is currently in the MICU and remains on ventilator. Status post tracheostomy and PEG tube placement on 10/14/2021. Patient is sedated and paralyzed. Also on Cleviprex. Chest x-ray showed no acute cardiopulmonary disease with no interval changes. Laboratory data showed WBC 16.9 hemoglobin 8.9 and platelets 278 BUN 19 and creatinine 0.5 and calcium 8.1 patient is being continued on dexamethasone 6 mg daily, Lasix 40 mg IV daily and multivitamins and anticoagulation with Eliquis. Pulmonary and general surgery is on board. Current medications reviewed. Review of systems: Unable to obtain as patient is mechanically intubated and sedated Objective - Vital Signs Vital signs: Vital Signs Temp 97.8 F 10/16/21 12:00 Pulse 91 10/16/21 14:00 Resp 30 H 10/16/21 14:00 BP 104/59 10/16/21 14:00 Pulse Ox 97 10/16/21 14:00 Intake & Output 10/15/21 10/16/21 10/16/21 18:59 06:59 18:59 Intake Total 921.339 8194.380 587.637 Output Total 3655 1150 2195 Balance -2946.901 307.380 -1607.363 Weight 95 kg 94.8 kg Intake: IV 253 299 161 .9 220 260 140 pressure bag 33 39 21 Intake, IV Titration 679.479 2356.380 196.637 Amount Cisatracurium 200 mg In 154.936 363.572 Sodium Chloride 0.9% 180 ml @ 1 MCG/KG/MIN 5.16 mls/hr IV .Q24H ABRA[facility]AM Rx#: [id number] Clevidipine Butyrate 25 0 50.666 61.833 mg In Empty Bag 1 bag @ 1 MG/HR 2 mls/hr IV .Q24H ABRAHAM Rx#:[id number] Norepinephrine 8 mg In 16.823 24.929 Sodium Chloride 0.9% 250 ml @ 0.05 MCG/KG/MIN 9. 143 mls/hr IV .Q24H [facility] Rx#:[id number] Rocuronium 400 mg In 12.111 Sodium Chloride 0.9% 100 ml @ 5 MCG/KG/MIN 9.954 mls/hr IV .Q14H4M [facility] Rx# :[id number] fentaNYL (PF) 2,500 mcg 13.34 196.113 22.693 In Sodium Chloride 0.9% 200 ml @ 0.5 MCG/KG/HR 4. 6 mls/hr IV .Q24H [facility] Rx# :[id number] propofoL 1,000 mg In 200 393.1 100 Empty Bag 1 bag @ Titrate IV .Q0M ABRAH[facility] Rx#: [id number] Tube Feeding 40 130 70 Other 30 160 Output: Chest Tube Drainage 45 Chest Tube Left Lateral 15 Chest Chest Tube Right Lateral 30 Chest Urine 3655 1150 2150 Other: Voiding Method Indwelling Catheter Indwelling Catheter Indwelling Catheter ABP, PAP, CO, CI - Last Documented Arterial Blood Pressure 102/54 - Exam Physical Exam: Gen: This is a 61-year-old female currently sedated and intubated. mechanical ventilation Fio2 60% with a PEEP of 16 HEENT: Head is atraumatic, normocephalic. Pupils equal, round. Sclerae is anicteric. tracheostomy noted NECK: Supple. No JVD. No lymphadenopathy. No thyromegaly. subcutaneous emphysema noted in the neck and chest wall area bilaterally extensive. LUNGS: Diminished breath sounds bilaterally with coarse rhonchi and crackles noted. Left more diminished than right. No intercostal retractions. Bilateral chest tubes of the left and right HEART: S1, S2 are muffled ABDOMEN: Soft. Bowel sounds are present. No masses. No tenderness. peg tube noted. EXTREMITIES: No pedal edema. No calf tenderness. generalized edema noted NEUROLOGICAL: Patient is currently intubated and sedated - Labs CBC & Chem 7: 10/17/21 08:33 10/17/21 08:33 Labs: Abnormal Lab Results - Last 24 Hours (Table) 10/15/21 10/16/21 10/16/21 Range/Units 17:32 00:27 05:50 WBC (3.8-10.6) k/uL RBC (3.80-5.40) m/uL Hgb (11.4-16.0) gm/dL Hct (34.0-46.0) % RDW (11.5-15.5) % Neutrophils # (1.3-7.7) k/uL ABG pCO2 58 H (35-45) mmHg ABG pO2 80 L (83-108) mmHg ABG HCO3 37 H (21-25) mmol/L ABG Total CO2 39 H (19-24) mmol/L Carbon Dioxide (22-30) mmol/L BUN (7-17) mg/dL Creatinine (0.52-1.04) mg/dL Glucose (74-99) mg/dL POC Glucose (mg/dL) 162 H 134 H (75-99) mg/dL Calcium (8.4-10.2) mg/dL 10/16/21 10/16/21 10/16/21 Range/Units 08:00 08:00 13:14 WBC 16.9 H (3.8-10.6) k/uL RBC 3.01 L (3.80-5.40) m/uL Hgb 8.9 L (11.4-16.0) gm/dL Hct 28.2 L (34.0-46.0) % RDW 19.2 H (11.5-15.5) % Neutrophils # 13.6 H (1.3-7.7) k/uL ABG pCO2 (35-45) mmHg ABG pO2 (83-108) mmHg ABG HCO3 (21-25) mmol/L ABG Total CO2 (19-24) mmol/L Carbon Dioxide 33 H (22-30) mmol/L BUN 19 H (7-17) mg/dL Creatinine 0.50 L (0.52-1.04) mg/dL Glucose 114 H (74-99) mg/dL POC Glucose (mg/dL) 193 H (75-99) mg/dL Calcium 8.1 L (8.4-10.2) mg/dL Assessment and Plan Assessment: Assessment: Acute COVID-19 infection with acute COVID-19 bilateral interstitial pneumonia with hypoxic hypercarbic respiratory failure on mechanical vent.S/p trach and PEG placement on 10/14/2021 Subcutaneous emphysema of the neck and chest with a left pneumothorax 10-15% status post peg tube and tracheostomy placement Left pneumothorax status post chest tube placement Right-sided pleural effusion with new small right pneumothorax status post chest tube placement Acute blood loss anemia secondary to bilateral chest tube placements with a drop in hemoglobin to 6.5 and was given 1 unit of PRBC, possible hypovolemic shock requiring pressor support Non-sustained ventricular tachycardia, currently sinus Acute left leg deep vein thrombosis Acute respiratory acidosis Primary hypercoagulable state and factor V week deficiency candidiasis secondary to prolonged indwelling Corbin catheter Mild transaminitis, possibly secondary to COVID-19 History of DVT History of degenerative joint disease History of fibromyalgia Acute respiratory acidosis Increased white blood count anemia, of undetermined etiology Elevated inflammatory markers of COVID-19 Obesity with a body mass index of 38.1 Full code Plan: Recommend to continue with current medications and follow along closely with multiple medical consultations. Prognosis remains extremely poor and guarded with multiple complex medical issues noted. Patient continues on mechanical ventilation via tracheostomy and FiO2 60% with PEEP of 16. Patient is status post bilateral chest tube placements of the left and right for bilateral pneumothorax. Patient underwent PEG and trach placement yesterday and will be resuming tube feeding. Og resumed. Recommend to continue with current medications. Recommend repeat labs and continued close monitoring. Again due to multiple complex medical issues overall prognosis is extremely poor and quite guarded. Family would like to continue full code and is aware of overall extremely guarded and poor prognosis. Time with Patient: Greater than 30
--- NOTE | 2021-10-17 22:17 | P.PN ---
Subjective Progress Note Date: 10/17/21 This is a 61-year-old female who was recently admitted with acute COVID-19 pneumonia with acute COVID-19 bilateral interstitial pneumonia and also with transaminitis and being closely monitored. Patient remains in the ICU and currently intubated and sedated with an FiO2 of 70% and PEEP is 18. 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 Patient did have a venous Doppler study done recently which showed left leg DVT and patient is maintained on Eliquis will continue. Patient also continues on empiric antibiotics and awaiting for sputum culture finalized. Patient was started on IV cefepime and will continue. Patient is also continued on oral dexamethasone along with vitamin and zinc supplements and will continue. Patient with some mild volume overload and given a dose of IV Lasix push today. 09/29/2021 Patient is seen and evaluated this morning continues to be closely monitored in the ICU and continues to be on mechanical ventilation and sedated. FiO2 was increased at 80% with a PEEP of 18 and oxygen saturations between 87-91%. Patient developing subcutaneous emphysema in the neck and chest wall area and chest x-ray today shows bilateral multifocal and confluent opacification is redemonstrated consistent with COVID-19 infection with a new small left apical pneumothorax estimated under 5% with new pneumomediastinum and recurrent overlying subcutaneous emphysema noted. Patient is white blood count mildly elevated at 16.1 and is continued on oral dexamethasone along with oral eliquis for anticoagulation. Patient continues to be on IV cefepime and blood and sputum cultures are negative thus far. 09/30/2021 Patient is seen today continues to be closely monitored in the ICU with multiple medical consultations following. Patient continues to be mechanically intubated and sedated with continued subcutaneous emphysema noted. Chest xray shows a trace left apical pneumothorax that is minimally smaller 7mm versus 1cm previously, extensive bilateral subcutaneous emphysema persists and diffuse interstitial changes and bilateral patchy opacities persist with slight improvement in aeration in the lower lungs. Per nursing staff corbin was clogged with copious amounts of white discharge and will add diflucan and corbin catheter has been changed and draining adequately. Patient continues on IV cefepime. Patient tolerating tube feeds and will continue. 10/01/2021 Patient is seen and evaluated in follow up this morning and continues to be closely monitored. Multiple medical consultations following and patient con tinues to be on mechanical vent and sedated. Patient continues on IV Cefepime and diflucan. Patient chest xray today shows stable extensive subcutaneous emphysema, no pneumothorax, and patchy bilateral lung infiltrates remain present. INflammatory markers trending down. 10/04/2021 Patient is seen in follow-up continues to be closely monitored in the ICU. Patient remains on mechanical vent with an FI02 of 65% and peep is 18. Weaning trials being attempted with pulmonary student driving instructor following closely. Patient continues with extensive subq emphysema noted on exam. 10/05/2021 Patient Is seen and evaluated this morning with continued attempts at weaning and continues on mechanical vent and intubated with pulmonary student driving instructor following closely. Patient remains on Eliquis which will be held as surgery Dr. Nelson was consulted for possible PEG and trach tube placement for unsuccessful attempts at weaning from ventilation and prolonged hospitalization on mechanical vent. Chest x-ray today shows recurrent tiny left apical pneumothorax estimated under 5% with worsening overlying subcutaneous emphysema and again pneumomediastinum redemonstrated with multifocal confluent opacification's redemonstrated consistent with COVID-19 infection and/or arts are redemonstrated with no significant change from one day previously. Patient continues on FiO2 of 65% and PEEP was weaned down to 14 today. IV cefepime discontinued. 10/06/2021 Patient is seen in follow-up this morning per nursing staff patient had multiple runs of ectopy an irregular heart rate and rhythms with PVCs and cardiology consulted. Patient was placed on lidocaine drip and was originally on eliquis is currently on hold for possible PEG and trach placement with general surgery following. Patient had difficulty maintaining oxygen saturations and FiO2 was increased to 100% and PEEP continues at 14. Multiple medical consultations following and patient continues on oral steroids along with vitamin and zinc supplements along with fluconazole. Patient being started on IV Lasix daily and recommend close monitoring of electrolytes and kidney functions. 10/07/2021 Patient is seen in follow-up this morning continues to be monitored closely in the ICU with multiple medical consultations following. Patient is currently on mechanical vent with an FiO2 of 80% and PEEP is 16. General surgery also following for possible PEG and trach placement and will need to discuss with surgery about when this will occur. Patient remains on fluconazole. She also continues on vitamin and zinc supplements along with oral dexamethasone, clevidipine, Nimbex, IV Lasix, fentanyl and propofol and is off norepinephrine. Chest x-ray shows stable bilateral lung infiltrates. 10/08/2021 Patient is seen this morning continues to be on mechanical vent with an FiO2 of 85% and PEEP of 16. Patient continues with extensive subcutaneous emphysema and plans are for possible PEG and trach placement although on hold until possibly next week once more stable. Patient continues on Cleviprex along with fentanyl and propofol and is receiving IV Lasix daily. Patient also continues on lidocaine drip which is currently on hold and cardiology is following closely. Anticoagulant was resumed for now again until more stable to undergo PEG and trach placement. Chest x-ray today shows persistent bilateral multifocal and confluent increased opacification is with persistent overlying subcutaneous emphysema noted in pneumomediastinum is again redemonstrated. 10/09/2021 Patient evaluated today in ICU mechanical ventilation with FiO2 of 80%. Chest x-ray this morning shows similar multifocal airspace opacities and stable support lines and tubes. Similar subcutaneous emphysema scattered throughout the visualized thorax. PEG and trach plan for next week once more stable. Current meds include Cleviprex, Nimbex, fentanyl, propofol. She is receiving IV fluconazole, as well as IV Lasix. Levophed and Lidocaine gtt;s are on hold. Positive bowel sounds. Current vitals afebrile, heart rate 71, blood pressure 135/60 and oxygen saturation is 93%. Respirations 30. Labs today, white count 17, hemoglobin 11.6, sodium 139, potassium 3.8, BUN 34, creatinine 0.91, CO2 33, calcium 8.7, ALT 54, albumin 2.8 with blood sugars in the 100s. 10/10/2021 Patient evaluated today in the ICU on the mechanical VENT with fio2 of 100%. Po sitive bowel movement today, Stage 2 pressure ulcer on coccyx per RN, optifoam ordered. Per RN they were unable to patient as she was desaturating. They're unable to wean Fi02 currently as she does desaturate with any time of movement. She was lying more on her right side during evaluation and pulse ox was dropping into high 80s she was being repositioned by nurses. Plan is to PEG/TRACH patient tomorrow. Last family update was 4 days ago. We will call and discuss case today. Patient is afebrile, heart rate 84, respirations 30, blood pressure 141/55, 92% oxygen saturation on 100% Fi02, which was increased today up from 70 Fi02%. Labs today show WBC of 15.6, hgbl 10.7, sodium 138, potassium 3.9, chloride 100, CO2 37, glucose 117, calcium 8.2. Chest xray today shows pneumonia, ARDS. 10/11/2021 Patient is seen and evaluated in follow-up this morning continues to be closely monitored in the ICU and patient is continued on FiO2 of 90% and PEEP is 16 with multiple medical consultations following. Chest x-ray today shows new left- sided pneumothorax estimated 10-20% with overlying subcutaneous emphysema and pneumomediastinum redemonstrated with bilateral multifocal and confluent opac ification's redemonstrated consistent with COVID-19 infection and/or arts and no significant change from one day previous. Patient is status post left chest tube insertion with pulmonary student driving instructor. Cardiology following and patient is off lidocaine drip and maintaining sinus rhythm. Patient also continues on vitamin and zinc supplements along with oral dexamethasone and patient continues on IV Lasix 40 mg daily. Patient also continues off norepinephrine and is currently maintained on IV cefepime along with fluconazole. General surgery following as well and plan is for peg and trach placement in the am 10/12/2021 Patient is seen in the ICU this morning continues to be closely monitored by multiple medical consultations. Patient was scheduled for PEG and trach placement with general surgery Dr. Nelson today although canceled as patient became hypotensive requiring Levophed along with acute blood loss anemia and hemoglobin dropped to 6.5 this morning requiring 1 unit of PRBC. Patient continues with left chest tube with pneumothorax and chest x-ray today shows the jahaira is difficult to clearly identify on the present exam and the ET tube may be approximately 1 cm from the jahaira and there are bilateral chest tubes present with continued diffuse interstitial opacification is and more focal bibasilar opacification is with subcutaneous emphysema persists along the upper chest with slight improvement on the left. No appreciable pneumothorax noted. Patient having worsening right pleural effusion last night and received a right- sided chest tube with pulmonary student driving instructor. FiO2 is 90% and PEEP of 16. Again overall prognosis remains extremely poor and guarded. 10/13/2021 Patient is seen in follow-up this morning in the ICU with multiple medical consultations following. Lengthy discussion was had with pulmonary student driving instructor and family members and would like to continue with full CODE STATUS and plan is in place for PEG tube and tracheostomy placement tomorrow. Anticoagulant on hold and Dr. Nelson plans for surgery tomorrow. Patient continues on oral dexamethasone along with IV cefepime, vitamin and zinc supplements. Patient also continues on Cleviprex and Nimbex. Patient also continues on fentanyl and propofol and will continue. Chest x-ray today shows stable portable chest with bilateral chest tubes without sizable pneumothorax identified and continued subcutaneous air persists with persistent interstitial changes bilaterally with airspace disease in the bilateral lung bases that are unchanged. FiO2 is 60% and PEEP of 16. 10/14/2021 Patient is seen and evaluated in the ICU being closely monitored with multiple medical consultations following. at the bedside today and had detailed discussion with overall prognosis. Plan is to proceed with PEG tube and tracheostomy placement with surgery Dr. Nelson today and anticoagulant continues to be on hold for this procedure. Patient continues on mechanical ventilation with an FiO2 of 70% and PEEP of 16. Chest x-ray today shows improving infiltrate with bibasilar residual and bilateral chest tubes remain present with no pneumothorax evident on either side and again subcutaneous emphysema is noted. 10/15/2021 Patient is seen in the ICU being closely monitored. Patient is status post PEG and trach placement yesterday. Chest x-ray today shows bilateral patchy lung infiltrates greater at the right base with diffuse increased lung markings and bilateral chest tubes remain present and subcutaneous emphysema on the right is diminished. Patient continues with an FI02 of 60 and peep is 16. To resume tube feeds per surgery. Patient continues on norepinephrine and sedation. Patient is receiving IV lasix daily. 10/16/2021 Patient is currently in the MICU and remains on ventilator. Status post tracheostomy and PEG tube placement on 10/14/2021. Patient is sedated and paralyzed. Also on Cleviprex. Chest x-ray showed no acute cardiopulmonary disease with no interval changes. Laboratory data showed WBC 16.9 hemoglobin 8.9 and platelets 278 BUN 19 and creatinine 0.5 and calcium 8.1 patient is being continued on dexamethasone 6 mg daily, Lasix 40 mg IV daily and multivitamins and anticoagulation with Eliquis. Pulmonary and general surgery is on board. 10/17/2021 Patient is in the MICU. Remains on the current ventilator via tracheostomy. Status post tracheostomy and PEG tube placement on 10/14/2021. Sedated and paralyzed and also on fentanyl drip. Currently on assist control with tidal volume of 420, FiO2 80% and PEEP of 16. Respiratory of 30. Chest x-ray showed no interval change in acute cardiopulmonary disease Laboratory data showed WBC 15.8 hemoglobin 8.2 and platelets 271 Sodium 136 potassium 3.1 chloride 100 bicarb is 32 BUN 21 creatinine 0.48 and albumin 2.3 Patient is being continued on Lasix IV, dexamethasone and anticoagulation with Eliquis. Current medications reviewed. Review of systems: Unable to obtain as patient is mechanically intubated and s edated Objective - Vital Signs Vital signs: Vital Signs Temp 97.2 F L 10/17/21 12:00 Pulse 90 10/17/21 14:00 Resp 30 H 10/17/21 14:00 BP 147/71 10/17/21 14:00 Pulse Ox 91 L 10/17/21 14:00 Intake & Output 10/16/21 10/17/21 10/17/21 18:59 06:59 18:59 Intake Total 1277.526 945.252 852.313 Output Total 2350 585 2325 Balance -1072.474 360.252 -1472.687 Weight 94.5 kg Intake: IV 253 299 184 .9 220 260 160 pressure bag 33 39 24 Intake, IV Titration 724.526 486.252 468.313 Amount Cisatracurium 200 mg In 200 Sodium Chloride 0.9% 180 ml @ 1 MCG/KG/MIN 5.16 mls/hr IV .Q24H ABRAHAM Rx#: [id number] Clevidipine Butyrate 25 61.833 29.5 0 mg In Empty Bag 1 bag @ 1 MG/HR 2 mls/hr IV .Q24H ABRAHAM Rx#:[id number] Norepinephrine 8 mg In 0 21.942 Sodium Chloride 0.9% 250 ml @ 0.05 MCG/KG/MIN 9. 143 mls/hr IV .Q24H ABRAHAM Rx#:[id number] Rocuronium 400 mg In 140.000 140.000 140.000 Sodium Chloride 0.9% 100 ml @ 5 MCG/KG/MIN 9.954 mls/hr IV .Q14H4M [facility] Rx# :[id number] fentaNYL (PF) 2,500 mcg 22.693 194.81 228.313 In Sodium Chloride 0.9% 200 ml @ 0.5 MCG/KG/HR 4. 6 mls/hr IV .Q24H [facility] Rx# :[id number] propofoL 1,000 mg In 300 100 100 Empty Bag 1 bag @ Titrate IV .Q0M ABRAHAM Rx#: [id number] Tube Feeding 110 160 70 Other 190 130 Output: Chest Tube Drainage 45 15 Chest Tube Left Lateral 15 0 Chest Chest Tube Right Lateral 30 15 Chest Urine 2305 585 2310 Other: Voiding Method Indwelling Catheter Indwelling Catheter Indwelling Catheter ABP, PAP, CO, CI - Last Documented Arterial Blood Pressure 155/64 - Exam Physical Exam: Gen: This is a 61-year-old female currently sedated and intubated. mechanical ventilation Fio2 60% with a PEEP of 16 HEENT: Head is atraumatic, normocephalic. Pupils equal, round. Sclerae is anicteric. tracheostomy noted NECK: Supple. No JVD. No lymphadenopathy. No thyromegaly. subcutaneous emphysema noted in the neck and chest wall area bilaterally extensive. LUNGS: Diminished breath sounds bilaterally with coarse rhonchi and crackles noted. Left more diminished than right. No intercostal retractions. Bilateral chest tubes of the left and right HEART: S1, S2 are muffled ABDOMEN: Soft. Bowel sounds are present. No masses. No tenderness. peg tube noted. EXTREMITIES: No pedal edema. No calf tenderness. generalized edema noted NEUROLOGICAL: Patient is currently intubated and sedated - Labs CBC & Chem 7: 10/17/21 08:33 10/17/21 08:33 Labs: Abnormal Lab Results - Last 24 Hours (Table) 10/16/21 10/16/21 10/16/21 Range/Units 15:29 18:16 23:29 WBC (3.8-10.6) k/uL RBC (3.80-5.40) m/uL Hgb (11.4-16.0) gm/dL Hct (34.0-46.0) % RDW (11.5-15.5) % Neutrophils # (1.3-7.7) k/uL Monocytes # (0-1.0) k/uL ABG pH 7.58 H* (7.35-7.45) ABG pCO2 (35-45) mmHg ABG pO2 185 H (83-108) mmHg ABG HCO3 37 H (21-25) mmol/L ABG Total CO2 39 H (19-24) mmol/L ABG O2 Saturation 100.0 H (94-97) % Sodium (137-145) mmol/L Potassium (3.5-5.1) mmol/L Carbon Dioxide (22-30) mmol/L BUN (7-17) mg/dL Creatinine (0.52-1.04) mg/dL Glucose (74-99) mg/dL POC Glucose (mg/dL) 132 H 129 H (75-99) mg/dL Calcium (8.4-10.2) mg/dL Total Protein (6.3-8.2) g/dL Albumin (3.5-5.0) g/dL 10/17/21 10/17/21 10/17/21 Range/Units 04:58 05:00 06:57 WBC (3.8-10.6) k/uL RBC (3.80-5.40) m/uL Hgb (11.4-16.0) gm/dL Hct (34.0-46.0) % RDW (11.5-15.5) % Neutrophils # (1.3-7.7) k/uL Monocytes # (0-1.0) k/uL ABG pH 7.46 H (7.35-7.45) ABG pCO2 47 H (35-45) mmHg ABG pO2 54 L* (83-108) mmHg ABG HCO3 33 H (21-25) mmol/L ABG Total CO2 35 H (19-24) mmol/L ABG O2 Saturation 89.7 L (94-97) % Sodium (137-145) mmol/L Potassium 2.9 L (3.5-5.1) mmol/L Carbon Dioxide (22-30) mmol/L BUN 20 H (7-17) mg/dL Creatinine 0.39 L (0.52-1.04) mg/dL Glucose 104 H (74-99) mg/dL POC Glucose (mg/dL) 120 H (75-99) mg/dL Calcium 7.2 L (8.4-10.2) mg/dL Total Protein (6.3-8.2) g/dL Albumin (3.5-5.0) g/dL 10/17/21 10/17/21 10/17/21 Range/Units 07:26 08:33 08:33 WBC 15.8 H (3.8-10.6) k/uL RBC 2.68 L (3.80-5.40) m/uL Hgb 8.2 L (11.4-16.0) gm/dL Hct 24.4 L (34.0-46.0) % RDW 18.8 H (11.5-15.5) % Neutrophils # 12.6 H (1.3-7.7) k/uL Monocytes # 1.1 H (0-1.0) k/uL ABG pH 7.46 H (7.35-7.45) ABG pCO2 48 H (35-45) mmHg ABG pO2 69 L (83-108) mmHg ABG HCO3 34 H (21-25) mmol/L ABG Total CO2 35 H (19-24) mmol/L ABG O2 Saturation (94-97) % Sodium 136 L (137-145) mmol/L Potassium 3.1 L (3.5-5.1) mmol/L Carbon Dioxide 32 H (22-30) mmol/L BUN 21 H (7-17) mg/dL Creatinine 0.48 L (0.52-1.04) mg/dL Glucose 111 H (74-99) mg/dL POC Glucose (mg/dL) (75-99) mg/dL Calcium 7.8 L (8.4-10.2) mg/dL Total Protein 4.6 L (6.3-8.2) g/dL Albumin 2.3 L (3.5-5.0) g/dL 10/17/21 Range/Units 11:20 WBC (3.8-10.6) k/uL RBC (3.80-5.40) m/uL Hgb (11.4-16.0) gm/dL Hct (34.0-46.0) % RDW (11.5-15.5) % Neutrophils # (1.3-7.7) k/uL Monocytes # (0-1.0) k/uL ABG pH (7.35-7.45) ABG pCO2 (35-45) mmHg ABG pO2 (83-108) mmHg ABG HCO3 (21-25) mmol/L ABG Total CO2 (19-24) mmol/L ABG O2 Saturation (94-97) % Sodium (137-145) mmol/L Potassium (3.5-5.1) mmol/L Carbon Dioxide (22-30) mmol/L BUN (7-17) mg/dL Creatinine (0.52-1.04) mg/dL Glucose (74-99) mg/dL POC Glucose (mg/dL) 131 H (75-99) mg/dL Calcium (8.4-10.2) mg/dL Total Protein (6.3-8.2) g/dL Albumin (3.5-5.0) g/dL Assessment and Plan Assessment: Assessment: Acute COVID-19 infection with acute COVID-19 bilateral interstitial pneumonia with hypoxic hypercarbic respiratory failure on mechanical vent.S/p trach and PEG placement on 10/14/2021 Subcutaneous emphysema of the neck and chest with a left pneumothorax 10-15% status post peg tube and tracheostomy placement Left pneumothorax status post chest tube placement Right-sided pleural effusion with new small right pneumothorax status post chest tube placement Acute blood loss anemia secondary to bilateral chest tube placements with a drop in hemoglobin to 6.5 and was given 1 unit of PRBC, possible hypovolemic shock requiring pressor support Non-sustained ventricular tachycardia, currently sinus Acute left leg deep vein thrombosis Acute respiratory acidosis Primary hypercoagulable state and factor V week deficiency candidiasis secondary to prolonged indwelling Corbin catheter Mild transaminitis, possibly secondary to COVID-19 History of DVT History of degenerative joint disease History of fibromyalgia Acute respiratory acidosis Increased white blood count anemia, of undetermined etiology Elevated inflammatory markers of COVID-19 Obesity with a body mass index of 38.1 Full code Plan: Recommend to continue with current medications and follow along closely with multiple medical consultations. Prognosis remains extremely poor and guarded with multiple complex medical issues noted. Patient continues on mechanical ventilation via tracheostomy and FiO2 60% with PEEP of 16. Patient is status post bilateral chest tube placements of the left and right for bilateral pneumothorax. Patient underwent PEG and trach placement yesterday and will be resuming tube feeding. Eliquis resumed. Recommend to continue with current medications. Recommend repeat labs and continued close monitoring. Again due to multiple complex medical issues overall prognosis is extremely poor and quite guarded. Family would like to continue full code and is aware of overall extremely guarded and poor prognosis.
[2021-10-17 23:04] LABS: Glucose,Whole Blood 135 mg/dL (75-99)
[2021-10-18] MEDS: ROCURONIUM 400 MG in SODIUM CHLORIDE 0.9% 100 ML IV SCH ×4 (00:25→23:52)
[2021-10-18] MEDS: INSULIN ASPART (NovoLOG) 100 UNIT/ML VIAL SQ SCH ×5 (00:40→23:55)
[2021-10-18] MEDS: fentaNYL (PF) 2,500 MCG in SODIUM CHLORIDE 0.9% 200 ML IV SCH ×2 (02:44→16:28)
[2021-10-18] MEDS: SODIUM CHLORIDE 0.9% 1,000 ML IV SCH ×2 (02:53→23:59)
[2021-10-18] MEDS: CLEVIDIPINE BUTYRATE 25 MG in EMPTY BAG 1 BAG IV SCH ×2 (03:34→11:33)
[2021-10-18 05:12] LABS: Glucose,Whole Blood 117 mg/dL (75-99)
[2021-10-18 05:18] LABS: ABG Base Excess 12.5 mmol/L; ABG HCO3 36 mmol/L (21-25); ABG Oxygen Saturation 85.7 % (94-97); ABG PCO2 49 mmHg (35-45); ABG PH 7.47 (7.35-7.45); ABG TCO2 38 mmol/L (19-24); Allen Test Performed? Yes
[2021-10-18 05:22] LABS: ABG PO2 49 mmHg (83-108)
[2021-10-18 05:33] LABS: Anisocytosis Slight; Basophils # (A) 0.1 k/uL (0-0.2); Basophils % (A) 1 %; Eosinophils # (A) 0.2 k/uL (0-0.7); Eosinophils % (A) 1 %; HCT 26.1 % (34.0-46.0); HGB 8.3 gm/dL (11.4-16.0); Hypochromasia Moderate; Lymphocytes # (A) 2.4 k/uL (1.0-4.8); Lymphocytes % (A) 12 %; MCHC 31.8 g/dL (31.0-37.0); MCV 91.4 fL (80.0-100.0); Macrocytosis Slight; Mean Platelet Volume 8.3; Monocytes # (A) 1.5 k/uL (0-1.0); Monocytes % (A) 7 %; Neutrophils # (A) 15.2 k/uL (1.3-7.7); Neutrophils % (A) 77 %; Platelet Count 321 k/uL (150-450); Poikilocytosis Slight; RBC 2.86 m/uL (3.80-5.40); WBC 19.7 k/uL (3.8-10.6)
[2021-10-18 05:47] LABS: ALT 24 U/L (4-34); AST 20 U/L (14-36); African American GFR (CKD) >90 (>60 ml/min/1.73 sqM); Albumin 2.6 g/dL (3.5-5.0); Alkaline Phosphatase 63 U/L (38-126); Anion Gap 1 mmol/L; Blood Urea Nitrogen 23 mg/dL (7-17); Calcium 8.1 mg/dL (8.4-10.2); Carbon Dioxide 36 mmol/L (22-30); Chloride 102 mmol/L (98-107); Glucose 107 mg/dL (74-99); Non-African American GFR(CKD) >90 (>60 ml/min/1.73 sqM); Potassium 3.3 mmol/L (3.5-5.1); Sodium 139 mmol/L (137-145); Total Bilirubin 0.6 mg/dL (0.2-1.3)
[2021-10-18] MEDS: NOREPINEPHRINE 8 MG in SODIUM CHLORIDE 0.9% 250 ML IV SCH (06:16)
--- NOTE | 2021-10-18 07:24 | XR ---
EXAMINATION TYPE: XR chest 1V portable DATE OF EXAM: 10/18/2021 Comparison: 10/17/2021 Clinical History: 61-year-old female SOB Findings: Tracheostomy cannula. Bilateral chest tubes. No appreciable pneumothorax. Right PICC tip upper right atrium. Part of the limits of normal in size. Diffuse interstitial and patchy opacities persist, righ t greater than left and also greatest at the lung bases. Impression: 1. Overall stable exam with interstitial changes and patchy bilateral opacities, right greater than l eft, and greater at the lung bases. 2. Bilateral chest tubes. No appreciable pneumothorax.
--- NOTE | 2021-10-18 07:26 | P.PN ---
Subjective 61-year-old female who is in the MICU with COVID-19 related pneumonia. The patient stated that she was having symptoms since September 10. The symptoms included shortness of breath, cough, fatigue, muscle aches, and generally just not feeling well. The patient is non vaccinated. She tested positive for coronavirus on September 23. The patient takes Coumadin chronically for her factor V or Leiden factor deficiency. Initially, on room air, her saturations were in the 70s, and on a nonrebreather, only got up into the mid 80s. In addition to the primary hypercoagulable state, she has a history of DVT, fibromyalgia, pneumonia, arthritis, and degenerative disc disease. She is a lifelong nonsmoker. Chest x-ray reveals diffuse bilateral infiltrates. CT angiogram was negative for pulmonary embolism, but did show diffuse infiltrates consistent with coronavirus pneumonia. Subsequently, the patient was placed on a BiPAP for respiratory support. Following that, on 09/25/2021 required intubation and mechanical ventilation. On today's evaluation of 10/18/2021, the patient remains on a mechanical ventilator. The patient remains sedated and paralyzed. She had a complicated COVID 19 pneumonia course here in the intensive care unit. The patient developed bilateral pneumothoraces and currently she still has bilateral chest tubes in place. This morning, the patient remains sedated and the patient is currently on propofol at 50 mcg/kg per minute, fentanyl at 2 mcg/kg per minute and the patient is paralyzed with rocuronium running at 10 g. The patient is adequately sedated and paralyzed for now. This morning, she is on a mechanical ventilator on assist control mode at the rate of 30, tidal volume of 420, FiO2 of 70% with a PEEP of 16. Peak airway pressure is 45. The static air pressure is 42. The chest x-ray from today showing no evidence of any pneumothorax. There is still diffuse bilateral pulmonary infiltrates. There are bilateral chest tubes. Chest tubes are in good location. No evidence of any pneumotho rax. The blood gases from this morning shows a pH of 7.47 with a pCO2 of 49 and pO2 of 49 and this was done and FiO2 of 60% and based on his affect was brought up to 70%. Meanwhile, the patient is on IV fluids. She is on normal saline at the rate of 20 mL an hour. Norepinephrine is being is less for hemodynamic support and it is running at 0.08 mcg/kg/m.. The patient remains on Decadron 6 mg by mouth on a daily basis and the patient is also on anticoagulation with Eliquis 5 mg by mouth twice a day. All of the cultures of been negative. The white cell count from this morning is at 19.7 with a hemoglobin of 8.3 and platelet count of 321. Sodium is at 139 with a potassium level of 3.3 and currently is 102 with a bicarb is of 36 creatinine is at 23 with a creatinine of 0.5. LFTs are all within normal limits. Noted the patient underwent a bronchoscopy on 10/16/2020. This was done strictly for airway inspection. No cultures were obtained. The patient is currently on no antibiotics. Inflammatory markers showed a pro-calcitonin level of 0.14 from 10/05/2020 and the patient also has LDH of 531 from 10/01/2021. The patient has a PICC line in her right upper extremity. There is a double-lumen PICC line. Objective - Vital Signs Vital signs: Vital Signs Temp 98.7 F 10/18/21 04:00 Pulse 78 10/18/21 06:00 Resp 30 H 10/18/21 06:00 BP 95/47 10/18/21 06:00 Pulse Ox 93 L 10/18/21 06:00 Intake & Output 10/17/21 10/18/21 10/18/21 18:59 06:59 18:59 Intake Total 3949.492 1516.330 Output Total 2540 753 Balance -1262.020 438.330 Weight 94.5 kg Intake: IV 276 276 .9 240 240 pressure bag 36 36 Intake, IV Titration 731.980 735.330 Amount Clevidipine Butyrate 25 23.667 77.333 mg In Empty Bag 1 bag @ 1 MG/HR 2 mls/hr IV .Q24H [facility] Rx#:[id number] Norepinephrine 8 mg In 0 6.704 Sodium Chloride 0.9% 250 ml @ 0.05 MCG/KG/MIN 9. 143 mls/hr IV .Q24H [facility] Rx#:[id number] Rocuronium 400 mg In 280.000 140 Sodium Chloride 0.9% 100 ml @ 5 MCG/KG/MIN 9.954 mls/hr IV .Q14H4M [facility] Rx# :[id number] fentaNYL (PF) 2,500 mcg 228.313 250 In Sodium Chloride 0.9% 200 ml @ 0.5 MCG/KG/HR 4. 6 mls/hr IV .Q24H [facility] Rx# :[id number] propofoL 1,000 mg In 200 261.293 Empty Bag 1 bag @ Titrate IV .Q0M [facility] Rx#: [id number] Tube Feeding 110 60 Other 160 120 Output: Chest Tube Drainage 15 8 Chest Tube Left Lateral 0 0 Chest Chest Tube Right Lateral 15 8 Chest Urine 2525 745 Other: Voiding Method Indwelling Catheter Indwelling Catheter ABP, PAP, CO, CI - Last Documented Arterial Blood Pressure 85/48 - Exam No acute distress, sedated and paralyzed, with tracheostomy tube in place. The patient has evidence of subcutaneous emphysema in the neck and anterior chest area and this can be easily palpated on today's evaluation. Head exam was generally normal. There was no scleral icterus or corneal arcus. Mucous membranes were moist. Neck was supple and without jugular venous distension, thyromegaly, or carotid bruits. Carotids were easily palpable bilaterally. There was no adenopathy Lungs were clear to auscultation and percussion, and with normal diaphragmatic excursion. No wheezes or rales were noted. Cardiac exam revealed the PMI to be normally situated and sized. The rhythm was regular and no extrasystoles were noted during several minutes of auscultation. The first and second heart sounds were normal and physiologic splitting of the second heart sound was noted. There were no murmurs, rubs, clicks, or gallops. The patient has bilateral chest tubes. No evidence of any air leak. Output from the chest tubes are minimal at this point in time. Abdominal exam revealed normal bowel sounds. The abdomen was soft, non-tender, and without masses, organomegaly, or appreciable enlargement of the abdominal aorta. The patient has a PEG tube also in place Examination of the extremities revealed easily palpable radial, femoral and pedal pulses. There was no cyanosis, clubbing or edema. Examination of the skin revealed no evidence of significant rashes, suspicious appearing nevi or other concerning lesions. Neurologic examination cannot be assessed as the patient is currently sedated and paralyzed. - Labs CBC & Chem 7: 10/18/21 05:17 10/18/21 05:17 Labs: Abnormal Lab Results - Last 24 Hours (Table) 10/17/21 10/17/21 10/17/21 Range/Units 07:26 08:33 08:33 WBC 15.8 H (3.8-10.6) k/uL RBC 2.68 L (3.80-5.40) m/uL Hgb 8.2 L (11.4-16.0) gm/dL Hct 24.4 L (34.0-46.0) % RDW 18.8 H (11.5-15.5) % Neutrophils # 12.6 H (1.3-7.7) k/uL Monocytes # 1.1 H (0-1.0) k/uL ABG pH 7.46 H (7.35-7.45) ABG pCO2 48 H (35-45) mmHg ABG pO2 69 L (83-108) mmHg ABG HCO3 34 H (21-25) mmol/L ABG Total CO2 35 H (19-24) mmol/L ABG O2 Saturation (94-97) % Sodium 136 L (137-145) mmol/L Potassium 3.1 L (3.5-5.1) mmol/L Carbon Dioxide 32 H (22-30) mmol/L BUN 21 H (7-17) mg/dL Creatinine 0.48 L (0.52-1.04) mg/dL Glucose 111 H (74-99) mg/dL POC Glucose (mg/dL) (75-99) mg/dL Calcium 7.8 L (8.4-10.2) mg/dL Total Protein 4.6 L (6.3-8.2) g/dL Albumin 2.3 L (3.5-5.0) g/dL 10/17/21 10/17/21 10/17/21 Range/Units 11:20 17:27 23:02 WBC (3.8-10.6) k/uL RBC (3.80-5.40) m/uL Hgb (11.4-16.0) gm/dL Hct (34.0-46.0) % RDW (11.5-15.5) % Neutrophils # (1.3-7.7) k/uL Monocytes # (0-1.0) k/uL ABG pH (7.35-7.45) ABG pCO2 (35-45) mmHg ABG pO2 (83-108) mmHg ABG HCO3 (21-25) mmol/L ABG Total CO2 (19-24) mmol/L ABG O2 Saturation (94-97) % Sodium (137-145) mmol/L Potassium (3.5-5.1) mmol/L Carbon Dioxide (22-30) mmol/L BUN (7-17) mg/dL Creatinine (0.52-1.04) mg/dL Glucose (74-99) mg/dL POC Glucose (mg/dL) 131 H 200 H 135 H (75-99) mg/dL Calcium (8.4-10.2) mg/dL Total Protein (6.3-8.2) g/dL Albumin (3.5-5.0) g/dL 10/18/21 10/18/21 10/18/21 Range/Units 05:10 05:15 05:17 WBC 19.7 H (3.8-10.6) k/uL RBC 2.86 L (3.80-5.40) m/uL Hgb 8.3 L (11.4-16.0) gm/dL Hct 26.1 L (34.0-46.0) % RDW 19.0 H (11.5-15.5) % Neutrophils # 15.2 H (1.3-7.7) k/uL Monocytes # 1.5 H (0-1.0) k/uL ABG pH 7.47 H (7.35-7.45) ABG pCO2 49 H (35-45) mmHg ABG pO2 49 L* (83-108) mmHg ABG HCO3 36 H (21-25) mmol/L ABG Total CO2 38 H (19-24) mmol/L ABG O2 Saturation 85.7 L (94-97) % Sodium (137-145) mmol/L Potassium (3.5-5.1) mmol/L Carbon Dioxide (22-30) mmol/L BUN (7-17) mg/dL Creatinine (0.52-1.04) mg/dL Glucose (74-99) mg/dL POC Glucose (mg/dL) 117 H (75-99) mg/dL Calcium (8.4-10.2) mg/dL Total Protein (6.3-8.2) g/dL Albumin (3.5-5.0) g/dL 10/18/21 Range/Units 05:17 WBC (3.8-10.6) k/uL RBC (3.80-5.40) m/uL Hgb (11.4-16.0) gm/dL Hct (34.0-46.0) % RDW (11.5-15.5) % Neutrophils # (1.3-7.7) k/uL Monocytes # (0-1.0) k/uL ABG pH (7.35-7.45) ABG pCO2 (35-45) mmHg ABG pO2 (83-108) mmHg ABG HCO3 (21-25) mmol/L ABG Total CO2 (19-24) mmol/L ABG O2 Saturation (94-97) % Sodium (137-145) mmol/L Potassium 3.3 L (3.5-5.1) mmol/L Carbon Dioxide 36 H (22-30) mmol/L BUN 23 H (7-17) mg/dL Creatinine (0.52-1.04) mg/dL Glucose 107 H (74-99) mg/dL POC Glucose (mg/dL) (75-99) mg/dL Calcium 8.1 L (8.4-10.2) mg/dL Total Protein 5.0 L (6.3-8.2) g/dL Albumin 2.6 L (3.5-5.0) g/dL Assessment and Plan Plan: 1 Acute hypoxemic respiratory failure/ARDS secondary to coronavirus associated pneumonia, status post intubation, and mechanical ventilation on 09/25/2021.No evidence of pulmonary embolism on CT angiogram. The patient continues to have diffuse bilateral pulmonary infiltrates consistent with COVID 19 related pneumonia. Patient subsequently developed bilateral pneumothoraces. The patient has bilateral chest tubes and the chest tubes were inserted on 2021. The patient remains intubated on a mechanical ventilator. The patient has a tracheostomy on 10/14/2021 . The chest x-ray from today shows diffuse bilateral pulmonary infiltrates consistent with ARDS. Because of irregular pressures are quite elevated. No evidence of any pneumothorax on today's chest x-ray. Lungs are well expanded. No evidence of any air leak through the chest tube. The patient is having borderline oxygenation. Remains on Decadron. Remains on anticoagulation with Eliquis. Remains sedated. He remains paralyzed. No signs of any infection at this point in time. 2 acute COVID 19 related pneumonia 3 Acute bilateral pneumothoraces, status post bilateral chest tube placements, on 10/11/2021. subcutaneous emphysema, as a complication of mechanical ventilation and coronavirus associated pneumonia. 4 acute left lower extremity femoral DVT currently on Eliquis. The patient is known to have a Primary hypercoagulable state in the form of Leiden factor deficiency/factor V deficiency. The patient has been maintained on warfarin on outpatient basis. 5 Prior history of DVT. 6 History of fibromyalgia. 7 History of arthritis. 8 History of degenerative disc disease. 9 Mild transaminitis secondary to coronavirus infection. Plan Continue ventilator support for now. Keep the ventilator settings Keep chest tube in place for another 24 hours Continue Decadron Continue anticoagulation with Eliquis 5 mg by mouth twice a day Wean off pressors if possible. The patient fact is running a high blood pressure for now enteral feeding for nutritional support, vital 1.2 @ 10cc/hr No major changes for today Repeat another blood gas probably around noontime and decide if there is any room for further weaning of the FiO2 and PEEP. We'll continue to follow make further recommendations based on her progress. This is a critically care evaluation was done and more than 30 minutes. Time with Patient: Greater than 30
[2021-10-18] MEDS: ASCORBIC ACID 500 MG TAB PO SCH ×2 (08:06→20:20)
[2021-10-18] MEDS: CHLORHEXIDINE GLUCONATE 15 ML CUP MUCOUS MEM SCH ×2 (08:06→20:20)
[2021-10-18] MEDS: dexAMETHasone 2 MG TAB PO SCH (08:06)
[2021-10-18] MEDS: APIXABAN 5 MG TAB PO SCH ×2 (08:06→20:20)
[2021-10-18] MEDS: ZINC SULFATE 220 MG CAP PO SCH (08:06)
[2021-10-18] MEDS: POTASSIUM BICARBONATE/CIT AC 20 MEQ TABLET.EFF NG-TUBE SCH ×4 (08:06→16:53)
[2021-10-18] MEDS: PANTOPRAZOLE 40 MG/10 ML VIAL IV SCH (08:06)
[2021-10-18] MEDS: FUROSEMIDE 10 MG/ML 4 ML VIAL IV SCH (08:07)
[2021-10-18] MEDS: ARTIFICIAL TEARS-HYPROMELLOSE DROPS 15 ML BTL BOTH EYES SCH ×4 (08:07→22:00)
[2021-10-18 11:28] LABS: Glucose,Whole Blood 173 mg/dL (75-99)
[2021-10-18] MEDS: LACTATED RINGERS 1,000 ML IV SCH (11:31)
--- NOTE | 2021-10-18 15:34 | P.PN ---
Subjective Progress Note Date: 10/18/21 Principal diagnosis: Respiratory failure Patient remains sedated on the ventilator. Oxygen requirements increased slightly since I saw her on Monday. She is tolerating tube feeds at goal. She has had intermittent episodes of high blood pressure and low blood pressure. No further issues with volumes related to the tracheostomy catheter. Objective - Vital Signs Vital signs: Vital Signs Temp 96.6 F L 10/18/21 12:00 Pulse 80 10/18/21 15:00 Resp 30 H 10/18/21 15:00 BP 120/64 10/18/21 11:00 Pulse Ox 90 L 10/18/21 15:00 Intake & Output 10/17/21 10/18/21 10/18/21 18:59 06:59 18:59 Intake Total 1481.643 6575.330 979.349 Output Total 2540 753 1820 Balance -1262.020 578.330 -840.651 Weight 94.5 kg 94.5 kg Intake: IV 276 276 207 LR 240 240 180 pressure bag 36 36 27 Intake, IV Titration 731.980 875.330 532.349 Amount Clevidipine Butyrate 25 23.667 77.333 64.333 mg In Empty Bag 1 bag @ 1 MG/HR 2 mls/hr IV .Q24H [facility] Rx#:[id number] Norepinephrine 8 mg In 0 6.704 36.937 Sodium Chloride 0.9% 250 ml @ 0.05 MCG/KG/MIN 9. 143 mls/hr IV .Q24H [facility] Rx#:[id number] Rocuronium 400 mg In 280.000 280 140 Sodium Chloride 0.9% 100 ml @ 5 MCG/KG/MIN 9.954 mls/hr IV .Q14H4M [facility] Rx# :[id number] fentaNYL (PF) 2,500 mcg 228.313 250 In Sodium Chloride 0.9% 200 ml @ 0.5 MCG/KG/HR 4. 6 mls/hr IV .Q24H [facility] Rx# :[id number] propofoL 1,000 mg In 200 261.293 291.079 Empty Bag 1 bag @ Titrate IV .Q0M [facility] Rx#: [id number] Tube Feeding 110 60 80 Other 160 120 160 Output: Chest Tube Drainage 15 8 35 Chest Tube Left Lateral 0 0 20 Chest Chest Tube Right Lateral 15 8 15 Chest Urine 2525 745 1785 Other: Voiding Method Indwelling Catheter Indwelling Catheter Indwelling Catheter ABP, PAP, CO, CI - Last Documented Arterial Blood Pressure 119/47 - Exam Tracheostomy site clean and dry, no air leak or signs of infection Abdomen soft nondistended nontender, PEG tube in place - Labs CBC & Chem 7: 10/18/21 05:17 10/18/21 13:40 Labs: Abnormal Lab Results - Last 24 Hours (Table) 10/17/21 10/17/21 10/18/21 Range/Units 17:27 23:02 05:10 WBC (3.8-10.6) k/uL RBC (3.80-5.40) m/uL Hgb (11.4-16.0) gm/dL Hct (34.0-46.0) % RDW (11.5-15.5) % Neutrophils # (1.3-7.7) k/uL Monocytes # (0-1.0) k/uL ABG pH (7.35-7.45) ABG pCO2 (35-45) mmHg ABG pO2 (83-108) mmHg ABG HCO3 (21-25) mmol/L ABG Total CO2 (19-24) mmol/L ABG O2 Saturation (94-97) % Potassium (3.5-5.1) mmol/L Carbon Dioxide (22-30) mmol/L BUN (7-17) mg/dL Glucose (74-99) mg/dL POC Glucose (mg/dL) 200 H 135 H 117 H (75-99) mg/dL Calcium (8.4-10.2) mg/dL Total Protein (6.3-8.2) g/dL Albumin (3.5-5.0) g/dL 10/18/21 10/18/21 10/18/21 Range/Units 05:15 05:17 05:17 WBC 19.7 H (3.8-10.6) k/uL RBC 2.86 L (3.80-5.40) m/uL Hgb 8.3 L (11.4-16.0) gm/dL Hct 26.1 L (34.0-46.0) % RDW 19.0 H (11.5-15.5) % Neutrophils # 15.2 H (1.3-7.7) k/uL Monocytes # 1.5 H (0-1.0) k/uL ABG pH 7.47 H (7.35-7.45) ABG pCO2 49 H (35-45) mmHg ABG pO2 49 L* (83-108) mmHg ABG HCO3 36 H (21-25) mmol/L ABG Total CO2 38 H (19-24) mmol/L ABG O2 Saturation 85.7 L (94-97) % Potassium 3.3 L (3.5-5.1) mmol/L Carbon Dioxide 36 H (22-30) mmol/L BUN 23 H (7-17) mg/dL Glucose 107 H (74-99) mg/dL POC Glucose (mg/dL) (75-99) mg/dL Calcium 8.1 L (8.4-10.2) mg/dL Total Protein 5.0 L (6.3-8.2) g/dL Albumin 2.6 L (3.5-5.0) g/dL 10/18/21 10/18/21 Range/Units 11:26 13:40 WBC (3.8-10.6) k/uL RBC (3.80-5.40) m/uL Hgb (11.4-16.0) gm/dL Hct (34.0-46.0) % RDW (11.5-15.5) % Neutrophils # (1.3-7.7) k/uL Monocytes # (0-1.0) k/uL ABG pH (7.35-7.45) ABG pCO2 (35-45) mmHg ABG pO2 (83-108) mmHg ABG HCO3 (21-25) mmol/L ABG Total CO2 (19-24) mmol/L ABG O2 Saturation (94-97) % Potassium 3.4 L (3.5-5.1) mmol/L Carbon Dioxide (22-30) mmol/L BUN (7-17) mg/dL Glucose (74-99) mg/dL POC Glucose (mg/dL) 173 H (75-99) mg/dL Calcium (8.4-10.2) mg/dL Total Protein (6.3-8.2) g/dL Albumin (3.5-5.0) g/dL Assessment and Plan (1) Respiratory failure Narrative/Plan: Patient's PEG tube and tracheostomy tubes. Appeared to be functioning well. No evidence of infection. Continue supportive care. Current Visit: Yes Status: Acute Code(s): J96.90 - RESPIRATORY FAILURE, U NSP, UNSP W HYPOXIA OR HYPERCAPNIA SNOMED Code(s): 570277010
[2021-10-18] MEDS: DOCUSATE ORAL SOLN 100 MG/10 ML CUP PO PRN (15:53)
[2021-10-18 17:35] LABS: Glucose,Whole Blood 168 mg/dL (75-99)
[2021-10-18 23:42] LABS: Glucose,Whole Blood 137 mg/dL (75-99)
--- NOTE | 2021-10-19 01:27 | P.PN ---
Subjective Progress Note Date: 10/18/21 This is a 61-year-old female who was recently admitted with acute COVID-19 pneumonia with acute COVID-19 bilateral interstitial pneumonia and also with transaminitis and being closely monitored. Patient remains in the ICU and currently intubated and sedated with an FiO2 of 70% and PEEP is 18. 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 Patient did have a venous Doppler study done recently which showed left leg DVT and patient is maintained on Eliquis will continue. Patient also continues on empiric antibiotics and awaiting for sputum culture finalized. Patient was started on IV cefepime and will continue. Patient is also continued on oral dexamethasone along with vitamin and zinc supplements and will continue. Patient with some mild volume overload and given a dose of IV Lasix push today. 09/29/2021 Patient is seen and evaluated this morning continues to be closely monitored in the ICU and continues to be on mechanical ventilation and sedated. FiO2 was increased at 80% with a PEEP of 18 and oxygen saturations between 87-91%. Patient developing subcutaneous emphysema in the neck and chest wall area and chest x-ray today shows bilateral multifocal and confluent opacification is redemonstrated consistent with COVID-19 infection with a new small left apical pneumothorax estimated under 5% with new pneumomediastinum and recurrent overlying subcutaneous emphysema noted. Patient is white blood count mildly elevated at 16.1 and is continued on oral dexamethasone along with oral eliquis for anticoagulation. Patient continues to be on IV cefepime and blood and sputum cultures are negative thus far. 09/30/2021 Patient is seen today continues to be closely monitored in the ICU with multiple medical consultations following. Patient continues to be mechanically intubated and sedated with continued subcutaneous emphysema noted. Chest xray shows a trace left apical pneumothorax that is minimally smaller 7mm versus 1cm previously, extensive bilateral subcutaneous emphysema persists and diffuse interstitial changes and bilateral patchy opacities persist with slight improvement in aeration in the lower lungs. Per nursing staff corbin was clogged with copious amounts of white discharge and will add diflucan and corbin catheter has been changed and draining adequately. Patient continues on IV cefepime. Patient tolerating tube feeds and will continue. 10/01/2021 Patient is seen and evaluated in follow up this morning and continues to be closely monitored. Multiple medical consultations following and patient c ontinues to be on mechanical vent and sedated. Patient continues on IV Cefepime and diflucan. Patient chest xray today shows stable extensive subcutaneous emphysema, no pneumothorax, and patchy bilateral lung infiltrates remain present. INflammatory markers trending down. 10/04/2021 Patient is seen in follow-up continues to be closely monitored in the ICU. Patient remains on mechanical vent with an FI02 of 65% and peep is 18. Weaning trials being attempted with pulmonary pc tech following closely. Patient continues with extensive subq emphysema noted on exam. 10/05/2021 Patient Is seen and evaluated this morning with continued attempts at weaning and continues on mechanical vent and intubated with pulmonary pc tech following closely. Patient remains on Eliquis which will be held as surgery Dr. Nelson was consulted for possible PEG and trach tube placement for unsuccessful attempts at weaning from ventilation and prolonged hospitalization on mechanical vent. Chest x-ray today shows recurrent tiny left apical pneumothorax estimated under 5% with worsening overlying subcutaneous emphysema and again pneumomediastinum redemonstrated with multifocal confluent opacification's redemonstrated consistent with COVID-19 infection and/or arts are redemonstrated with no significant change from one day previously. Patient continues on FiO2 of 65% and PEEP was weaned down to 14 today. IV cefepime discontinued. 10/06/2021 Patient is seen in follow-up this morning per nursing staff patient had multiple runs of ectopy an irregular heart rate and rhythms with PVCs and cardiology consulted. Patient was placed on lidocaine drip and was originally on eliquis is currently on hold for possible PEG and trach placement with general surgery following. Patient had difficulty maintaining oxygen saturations and FiO2 was increased to 100% and PEEP continues at 14. Multiple medical consultations following and patient continues on oral steroids along with vitamin and zinc supplements along with fluconazole. Patient being started on IV Lasix daily and recommend close monitoring of electrolytes and kidney functions. 10/07/2021 Patient is seen in follow-up this morning continues to be monitored closely in the ICU with multiple medical consultations following. Patient is currently on mechanical vent with an FiO2 of 80% and PEEP is 16. General surgery also following for possible PEG and trach placement and will need to discuss with surgery about when this will occur. Patient remains on fluconazole. She also continues on vitamin and zinc supplements along with oral dexamethasone, clevidipine, Nimbex, IV Lasix, fentanyl and propofol and is off norepinephrine. Chest x-ray shows stable bilateral lung infiltrates. 10/08/2021 Patient is seen this morning continues to be on mechanical vent with an FiO2 of 85% and PEEP of 16. Patient continues with extensive subcutaneous emphysema and plans are for possible PEG and trach placement although on hold until possibly next week once more stable. Patient continues on Cleviprex along with fentanyl and propofol and is receiving IV Lasix daily. Patient also continues on lidocaine drip which is currently on hold and cardiology is following closely. Anticoagulant was resumed for now again until more stable to undergo PEG and trach placement. Chest x-ray today shows persistent bilateral multifocal and confluent increased opacification is with persistent overlying subcutaneous emphysema noted in pneumomediastinum is again redemonstrated. 10/09/2021 Patient evaluated today in ICU mechanical ventilation with FiO2 of 80%. Chest x-ray this morning shows similar multifocal airspace opacities and stable support lines and tubes. Similar subcutaneous emphysema scattered throughout the visualized thorax. PEG and trach plan for next week once more stable. Current meds include Cleviprex, Nimbex, fentanyl, propofol. She is receiving IV fluconazole, as well as IV Lasix. Levophed and Lidocaine gtt;s are on hold. Positive bowel sounds. Current vitals afebrile, heart rate 71, blood pressure 135/60 and oxygen saturation is 93%. Respirations 30. Labs today, white count 17, hemoglobin 11.6, sodium 139, potassium 3.8, BUN 34, creatinine 0.91, CO2 33, calcium 8.7, ALT 54, albumin 2.8 with blood sugars in the 100s. 10/10/2021 Patient evaluated today in the ICU on the mechanical VENT with fio2 of 100%. Positive bowel movement today, Stage 2 pressure ulcer on coccyx per RN, optifoam ordered. Per RN they were unable to patient as she was desaturating. They're unable to wean Fi02 currently as she does desaturate with any time of movement. She was lying more on her right side during evaluation and pulse ox was dropping into high 80s she was being repositioned by nurses. Plan is to PEG/TRACH patient tomorrow. Last family update was 4 days ago. We will call and discuss case today. Patient is afebrile, heart rate 84, respirations 30, blood pressure 141/55, 92% oxygen saturation on 100% Fi02, which was increased today up from 70 Fi02%. Labs today show WBC of 15.6, hgbl 10.7, sodium 138, potassium 3.9, chloride 100, CO2 37, glucose 117, calcium 8.2. Chest xray today shows pneumonia, ARDS. 10/11/2021 Patient is seen and evaluated in follow-up this morning continues to be closely monitored in the ICU and patient is continued on FiO2 of 90% and PEEP is 16 with multiple medical consultations following. Chest x-ray today shows new left- sided pneumothorax estimated 10-20% with overlying subcutaneous emphysema and pneumomediastinum redemonstrated with bilateral multifocal and confluent op acification's redemonstrated consistent with COVID-19 infection and/or arts and no significant change from one day previous. Patient is status post left chest tube insertion with pulmonary pc tech. Cardiology following and patient is off lidocaine drip and maintaining sinus rhythm. Patient also continues on vitamin and zinc supplements along with oral dexamethasone and patient continues on IV Lasix 40 mg daily. Patient also continues off norepinephrine and is currently maintained on IV cefepime along with fluconazole. General surgery following as well and plan is for peg and trach placement in the am 10/12/2021 Patient is seen in the ICU this morning continues to be closely monitored by multiple medical consultations. Patient was scheduled for PEG and trach placement with general surgery Dr. Nelson today although canceled as patient became hypotensive requiring Levophed along with acute blood loss anemia and hemoglobin dropped to 6.5 this morning requiring 1 unit of PRBC. Patient continues with left chest tube with pneumothorax and chest x-ray today shows the jahaira is difficult to clearly identify on the present exam and the ET tube may be approximately 1 cm from the jahaira and there are bilateral chest tubes present with continued diffuse interstitial opacification is and more focal bibasilar opacification is with subcutaneous emphysema persists along the upper chest with slight improvement on the left. No appreciable pneumothorax noted. Patient having worsening right pleural effusion last night and received a right- sided chest tube with pulmonary pc tech. FiO2 is 90% and PEEP of 16. Again overall prognosis remains extremely poor and guarded. 10/13/2021 Patient is seen in follow-up this morning in the ICU with multiple medical consultations following. Lengthy discussion was had with pulmonary pc tech and family members and would like to continue with full CODE STATUS and plan is in place for PEG tube and tracheostomy placement tomorrow. Anticoagulant on hold and Dr. Nelson plans for surgery tomorrow. Patient continues on oral dexamethasone along with IV cefepime, vitamin and zinc supplements. Patient also continues on Cleviprex and Nimbex. Patient also continues on fentanyl and propofol and will continue. Chest x-ray today shows stable portable chest with bilateral chest tubes without sizable pneumothorax identified and continued subcutaneous air persists with persistent interstitial changes bilaterally with airspace disease in the bilateral lung bases that are unchanged. FiO2 is 60% and PEEP of 16. 10/14/2021 Patient is seen and evaluated in the ICU being closely monitored with multiple medical consultations following. at the bedside today and had detailed discussion with overall prognosis. Plan is to proceed with PEG tube and tracheostomy placement with surgery Dr. Nelson today and anticoagulant continues to be on hold for this procedure. Patient continues on mechanical ventilation with an FiO2 of 70% and PEEP of 16. Chest x-ray today shows improving infiltrate with bibasilar residual and bilateral chest tubes remain present with no pneumothorax evident on either side and again subcutaneous emphysema is noted. 10/15/2021 Patient is seen in the ICU being closely monitored. Patient is status post PEG and trach placement yesterday. Chest x-ray today shows bilateral patchy lung infiltrates greater at the right base with diffuse increased lung markings and bilateral chest tubes remain present and subcutaneous emphysema on the right is diminished. Patient continues with an FI02 of 60 and peep is 16. To resume tube feeds per surgery. Patient continues on norepinephrine and sedation. Patient is receiving IV lasix daily. 10/16/2021 Patient is currently in the MICU and remains on ventilator. Status post tracheostomy and PEG tube placement on 10/14/2021. Patient is sedated and paralyzed. Also on Cleviprex. Chest x-ray showed no acute cardiopulmonary disease with no interval changes. Laboratory data showed WBC 16.9 hemoglobin 8.9 and platelets 278 BUN 19 and creatinine 0.5 and calcium 8.1 patient is being continued on dexamethasone 6 mg daily, Lasix 40 mg IV daily and multivitamins and anticoagulation with Eliquis. Pulmonary and general surgery is on board. 10/17/2021 Patient is in the MICU. Remains on the current ventilator via tracheostomy. Status post tracheostomy and PEG tube placement on 10/14/2021. Sedated and paralyzed and also on fentanyl drip. Currently on assist control with tidal volume of 420, FiO2 80% and PEEP of 16. Respiratory of 30. Chest x-ray showed no interval change in acute cardiopulmonary disease Laboratory data showed WBC 15.8 hemoglobin 8.2 and platelets 271 Sodium 136 potassium 3.1 chloride 100 bicarb is 32 BUN 21 creatinine 0.48 and albumin 2.3 Patient is being continued on Lasix IV, dexamethasone and anticoagulation with Eliquis. 10/18/2021 Patient is seen in follow-up and continues in the ICU with multiple medical consultations following. Patient continues on mechanical vent with an FI02 of 70% and peep is 16. Chest xray shows overall stable exam with interstitial changes and bilateral patchy infiltrates with right greater than left and greater at the bases with bilateral chest tubes noted. no appreciable pneumothorax. Patient continues on propofol and fentanyl along with cleviprex and rocuronium. Eliquis has been resumed. Potassium is 3.3 and will be replaced per protocol. Patient also continues to receive IV lasix daily. Review of systems: Unable to obtain as patient is mechanically intubated and sedated Labs: WBC is 2.7, hemoglobin is 8.3, platelets are 321, sodium is 139, potassium 3.3, BUN 23, creatinine 0.54, calcium 8.1 Active Medications Apixaban (Apixaban 5 Mg Tab) 5 mg PO BID [facility]; Protocol Last Admin: 10/18/21 08:06 Dose: 5 mg Documented by: Artificial Tears (Artificial Tears-Hypromellose Drops 15 Ml Btl) 2 drops BOTH EYES QID [facility] Last Admin: 10/18/21 12:38 Dose: 2 drops Documented by: Ascorbic Acid (Ascorbic Acid 500 Mg Tab) 500 mg PO BID [facility] Last Admin: 10/18/21 08:06 Dose: 500 mg Documented by: Chlorhexidine Gluconate (Chlorhexidine Gluconate 15 Ml Cup) 15 ml MUCOUS MEM BID [facility] Last Admin: 10/18/21 08:06 Dose: 15 ml Documented by: Dexamethasone (Dexamethasone 2 Mg Tab) 6 mg PO DAILY [facility] Last Admin: 10/18/21 08:06 Dose: 6 mg Documented by: Docusate Sodium (Docusate Oral Soln 100 Mg/10 Ml Cup) 100 mg PO DAILY PRN PRN Reason: Constipation Last Admin: 10/05/21 16:57 Dose: 100 mg Documented by: Ergocalciferol (Ergocalciferol 1,250 Mcg (50,000 Iu) Capsule) 1,250 mcg PO [facility] Last Admin: 10/17/21 08:14 Dose: 1,250 mcg Documented by: Furosemide (Furosemide 10 Mg/Ml 4 Ml Vial) 40 mg IV DAILY [facility] Last Admin: 10/18/21 08:07 Dose: 40 mg Documented by: Propofol 1,000 mg/ IV Solution 100 mls @ 0 mls/hr IV .Q0M [facility]; Protocol Last Admin: 10/18/21 09:47 Dose: 60 mcg/kg/min, 34.02 mls/hr Documented by: Sodium Chloride (Saline 0.9%) 1,000 mls @ 20 mls/hr IV .Q24H [facility] Last Admin: 10/18/21 02:53 Dose: 20 mls/hr Documented by: Fentanyl Citrate 2,500 mcg/ (Sodium Chloride) 250 mls @ 4.6 mls/hr IV .Q24H [facility]; Protocol Last Admin: 10/18/21 02:44 Dose: 2 mcg/kg/hr, 18.4 mls/hr Documented by: Clevidipine 25 mg/ IV Solution 50 mls @ 2 mls/hr IV .Q24H [facility]; Protocol Last Titration: 10/18/21 12:15 Dose: 2 mg/hr, 4 mls/hr Documented by: Lactated Ringer's (Lactated Ringers) 1,000 mls @ 20 mls/hr IV .Q24H [facility] Last Admin: 10/18/21 11:31 Dose: 20 mls/hr Documented by: Norepinephrine Bitartrate 8 mg (/ Sodium Chloride) 258 mls @ 9.143 mls/hr IV .Q24H [facility]; Protocol Last Titration: 10/18/21 10:38 Dose: 0 mcg/kg/min, 0 mls/hr Documented by: Rocuronium Howell 400 mg/ (Sodium Chloride) 140 mls @ 9.954 mls/hr IV .Q14H4M [facility]; Protocol Last Admin: 10/18/21 07:50 Dose: 11 mcg/kg/min, 21.899 mls/hr Documented by: Insulin Aspart (Insulin Aspart (Novolog) 100 Unit/Ml Vial) 0 unit SQ Q6HR [facility]; Protocol Last Admin: 10/18/21 11:32 Dose: 2 unit Documented by: Miscellaneous Information (Pneumonia Protocol Utilized 1 Each Misc) 1 each PO ONCE PRN PRN Reason: Per Protocol Miscellaneous Information (Potassium Replacement Protocol 1 Each Misc) 1 each MISCELLANE DAILY PRN; Protocol PRN Reason: Per Protocol Naloxone HCl (Naloxone 0.4 Mg/Ml 1 Ml Vial) 0.2 mg IV Q2M PRN PRN Reason: Opioid Reversal Pantoprazole Sodium (Pantoprazole 40 Mg/10 Ml Vial) 40 mg IV DAILY [facility] Last Admin: 10/18/21 08:06 Dose: 40 mg Documented by: Zinc Sulfate (Zinc Sulfate 220 Mg Cap) 220 mg PO DAILY [facility] Last Admin: 10/18/21 08:06 Dose: 220 mg Documented by: Physical Exam: Gen: This is a 61-year-old female currently sedated and intubated. mechanical ventilation Fio2 70% with a PEEP of 16 HEENT: Head is atraumatic, normocephalic. Pupils equal, round. Sclerae is anicteric. tracheostomy noted NECK: Supple. No JVD. No lymphadenopathy. No thyromegaly. tracheostomy noted LUNGS: Diminished breath sounds bilaterally with coarse rhonchi and crackles noted. No intercostal retractions. Bilateral chest tubes of the left and right HEART: S1, S2 are muffled ABDOMEN: Soft. Bowel sounds are present. No masses. No tenderness. peg tube noted. EXTREMITIES: No pedal edema. No calf tenderness. generalized edema noted NEUROLOGICAL: Patient is currently intubated and sedated Assessment: Acute COVID-19 infection with acute COVID-19 bilateral interstitial pneumonia with hypoxic hypercarbic respiratory failure on mechanical vent status post trach and peg tube placement on 10/14/2021 Subcutaneous emphysema of the neck and chest Left pneumothorax status post chest tube placement Right-sided pleural effusion with new small right pneumothorax status post chest tube placement Acute blood loss anemia secondary to bilateral chest tube placements with a drop in hemoglobin to 6.5 and was given 1 unit of PRBC, possible hypovolemic shock requiring pressor support, currently hypertensive and off pressors Non-sustained ventricular tachycardia, currently sinus Acute left leg deep vein thrombosis Acute respiratory acidosis Primary hypercoagulable state and factor V week deficiency Mild transaminitis, possibly secondary to COVID-19 History of degenerative joint disease History of fibromyalgia Elevated inflammatory markers of COVID-19 Obesity with a body mass index of 38.1 Full code Plan: Recommend to continue with current medications and follow along closely with multiple medical consultations. Prognosis remains extremely poor and guarded with multiple complex medical issues noted. Patient continues on mechanical ventilation via tracheostomy and FiO2 70% with PEEP of 16. Recommend to continue with current medications. Recommend repeat labs and continued close monitoring. Again due to multiple complex medical issues overall prognosis is extremely poor and quite guarded. Objective - Vital Signs Vital signs: Vital Signs Temp 98.7 F 10/18/21 04:00 Pulse 63 10/18/21 07:00 Resp 30 H 10/18/21 07:00 BP 114/63 10/18/21 07:00 Pulse Ox 95 10/18/21 07:00 Intake & Output 10/17/21 10/18/21 10/18/21 18:59 06:59 18:59 Intake Total 8208.323 2775.330 105.668 Output Total 2540 753 110 Balance -1262.020 578.330 -4.332 Weight 94.5 kg Intake: IV 276 276 46 .9 240 240 40 pressure bag 36 36 6 Intake, IV Titration 731.980 875.330 59.668 Amount Clevidipine Butyrate 25 23.667 77.333 mg In Empty Bag 1 bag @ 1 MG/HR 2 mls/hr IV .Q24H [facility] Rx#:[id number] Norepinephrine 8 mg In 0 6.704 11.946 Sodium Chloride 0.9% 250 ml @ 0.05 MCG/KG/MIN 9. 143 mls/hr IV .Q24H [facility] Rx#:[id number] Rocuronium 400 mg In 280.000 280 Sodium Chloride 0.9% 100 ml @ 5 MCG/KG/MIN 9.954 mls/hr IV .Q14H4M [facility] Rx# :[id number] fentaNYL (PF) 2,500 mcg 228.313 250 In Sodium Chloride 0.9% 200 ml @ 0.5 MCG/KG/HR 4. 6 mls/hr IV .Q24H [facility] Rx# :[id number] propofoL 1,000 mg In 200 261.293 47.722 Empty Bag 1 bag @ Titrate IV .Q0M [facility] Rx#: [id number] Tube Feeding 110 60 Other 160 120 Output: Chest Tube Drainage 15 8 Chest Tube Left Lateral 0 0 Chest Chest Tube Right Lateral 15 8 Chest Urine 5702 745 110 Other: Voiding Method Indwelling Catheter Indwelling Catheter ABP, PAP, CO, CI - Last Documented Arterial Blood Pressure 127/53 - Labs CBC & Chem 7: 10/18/21 05:17 10/18/21 13:40 Labs: Abnormal Lab Results - Last 24 Hours (Table) 10/17/21 10/17/21 10/17/21 Range/Units 11:20 17:27 23:02 WBC (3.8-10.6) k/uL RBC (3.80-5.40) m/uL Hgb (11.4-16.0) gm/dL Hct (34.0-46.0) % RDW (11.5-15.5) % Neutrophils # (1.3-7.7) k/uL Monocytes # (0-1.0) k/uL ABG pH (7.35-7.45) ABG pCO2 (35-45) mmHg ABG pO2 (83-108) mmHg ABG HCO3 (21-25) mmol/L ABG Total CO2 (19-24) mmol/L ABG O2 Saturation (94-97) % Potassium (3.5-5.1) mmol/L Carbon Dioxide (22-30) mmol/L BUN (7-17) mg/dL Glucose (74-99) mg/dL POC Glucose (mg/dL) 131 H 200 H 135 H (75-99) mg/dL Calcium (8.4-10.2) mg/dL Total Protein (6.3-8.2) g/dL Albumin (3.5-5.0) g/dL 10/18/21 10/18/21 10/18/21 Range/Units 05:10 05:15 05:17 WBC 19.7 H (3.8-10.6) k/uL RBC 2.86 L (3.80-5.40) m/uL Hgb 8.3 L (11.4-16.0) gm/dL Hct 26.1 L (34.0-46.0) % RDW 19.0 H (11.5-15.5) % Neutrophils # 15.2 H (1.3-7.7) k/uL Monocytes # 1.5 H (0-1.0) k/uL ABG pH 7.47 H (7.35-7.45) ABG pCO2 49 H (35-45) mmHg ABG pO2 49 L* (83-108) mmHg ABG HCO3 36 H (21-25) mmol/L ABG Total CO2 38 H (19-24) mmol/L ABG O2 Saturation 85.7 L (94-97) % Potassium (3.5-5.1) mmol/L Carbon Dioxide (22-30) mmol/L BUN (7-17) mg/dL Glucose (74-99) mg/dL POC Glucose (mg/dL) 117 H (75-99) mg/dL Calcium (8.4-10.2) mg/dL Total Protein (6.3-8.2) g/dL Albumin (3.5-5.0) g/dL 10/18/21 Range/Units 05:17 WBC (3.8-10.6) k/uL RBC (3.80-5.40) m/uL Hgb (11.4-16.0) gm/dL Hct (34.0-46.0) % RDW (11.5-15.5) % Neutrophils # (1.3-7.7) k/uL Monocytes # (0-1.0) k/uL ABG pH (7.35-7.45) ABG pCO2 (35-45) mmHg ABG pO2 (83-108) mmHg ABG HCO3 (21-25) mmol/L ABG Total CO2 (19-24) mmol/L ABG O2 Saturation (94-97) % Potassium 3.3 L (3.5-5.1) mmol/L Carbon Dioxide 36 H (22-30) mmol/L BUN 23 H (7-17) mg/dL Glucose 107 H (74-99) mg/dL POC Glucose (mg/dL) (75-99) mg/dL Calcium 8.1 L (8.4-10.2) mg/dL Total Protein 5.0 L (6.3-8.2) g/dL Albumin 2.6 L (3.5-5.0) g/dL
[2021-10-19] MEDS: CLEVIDIPINE BUTYRATE 25 MG in EMPTY BAG 1 BAG IV SCH ×3 (01:59→18:00)
[2021-10-19 04:33] LABS: Anisocytosis Slight; Basophils % (A) 0 %; Eosinophils # (A) 0.1 k/uL (0-0.7); Eosinophils % (A) 1 %; HCT 24.8 % (34.0-46.0); HGB 7.6 gm/dL (11.4-16.0); Hypochromasia Marked; Lymphocytes % (A) 14 %; MCH 28.2 pg (25.0-35.0); MCHC 30.8 g/dL (31.0-37.0); MCV 91.7 fL (80.0-100.0); Macrocytosis Slight; Mean Platelet Volume 8.5; Monocytes % (A) 7 %; Neutrophils # (A) 11.4 k/uL (1.3-7.7); Neutrophils % (A) 77 %; Platelet Count 342 k/uL (150-450); Poikilocytosis Moderate; RBC 2.71 m/uL (3.80-5.40); RDW 19.2 % (11.5-15.5); WBC 14.8 k/uL (3.8-10.6)
[2021-10-19 04:48] LABS: ALT 20 U/L (4-34); AST 17 U/L (14-36); African American GFR (CKD) >90 (>60 ml/min/1.73 sqM); Albumin 2.4 g/dL (3.5-5.0); Alkaline Phosphatase 59 U/L (38-126); Anion Gap 4 mmol/L; Blood Urea Nitrogen 24 mg/dL (7-17); Calcium 7.9 mg/dL (8.4-10.2); Carbon Dioxide 35 mmol/L (22-30); Chloride 100 mmol/L (98-107); Glucose 100 mg/dL (74-99); Non-African American GFR(CKD) >90 (>60 ml/min/1.73 sqM); Potassium 3.6 mmol/L (3.5-5.1); Sodium 139 mmol/L (137-145); Total Bilirubin 0.6 mg/dL (0.2-1.3); Total Protein 4.6 g/dL (6.3-8.2)
[2021-10-19 05:22] LABS: ABG Base Excess 14.2 mmol/L; ABG HCO3 37 mmol/L (21-25); ABG Oxygen Saturation 95.4 % (94-97); ABG PCO2 41 mmHg (35-45); ABG PH 7.55 (7.35-7.45); ABG PO2 66 mmHg (83-108); ABG TCO2 38 mmol/L (19-24); Allen Test Performed? Yes
[2021-10-19 05:56] LABS: Glucose,Whole Blood 114 mg/dL (75-99)
--- NOTE | 2021-10-19 06:11 | XR ---
EXAMINATION TYPE: XR chest 1V portable DATE OF EXAM: 10/19/2021 CLINICAL HISTORY: Difficulty breathing progress study. TECHNIQUE: Single AP portable supine view of the chest is obtained. COMPARISON: Chest x-ray from one day earlier and older studies. FINDINGS: Stable right-sided PICC line. Stable tracheostomy tube. Stable bilateral chest tubes. Persistent bilateral multifocal and confluent increased opacities greatest in the lower lungs. Cardi ac silhouette size is stable and upper limits of normal. No pneumothorax seen currently. Anterior fus ion plate in the cervical spine is noted. IMPRESSION: Bilateral Multifocal and confluent opacities greatest in the lower lungs consistent with covid-19 infection and/or ARDS all redemonstrated. No significant change from one day earlier. Bilate ral chest tubes without pneumothorax redemonstrated.
--- NOTE | 2021-10-19 06:55 | P.PN ---
Subjective Progress Note Date: 10/19/21 61-year-old female who is in the MICU with COVID-19 related pneumonia. The patient stated that she was having symptoms since September 10. The symptoms included shortness of breath, cough, fatigue, muscle aches, and generally just not feeling well. The patient is non vaccinated. She tested positive for coronavirus on September 23. The patient takes Coumadin chronically for her factor V or Leiden factor deficiency. Initially, on room air, her saturations were in the 70s, and on a nonrebreather, only got up into the mid 80s. In addition to the primary hypercoagulable state, she has a history of DVT, fibromyalgia, pneumonia, arthritis, and degenerative disc disease. She is a lifelong nonsmoker. Chest x-ray reveals diffuse bilateral infiltrates. CT angiogram was negative for pulmonary embolism, but did show diffuse infiltrates consistent with coronavirus pneumonia. Subsequently, the patient was placed on a BiPAP for respiratory support. Following that, on 09/25/2021 required intubation and mechanical ventilation. On today's evaluation of 10/18/2021, the patient remains on a mechanical ventilator. The patient remains sedated and paralyzed. She had a complicated COVID 19 pneumonia course here in the intensive care unit. The patient developed bilateral pneumothoraces and currently she still has bilateral chest tubes in place. This morning, the patient remains sedated and the patient is currently on propofol at 50 mcg/kg per minute, fentanyl at 2 mcg/kg per minute and the patient is paralyzed with rocuronium running at 10 g. The patient is adequately sedated and paralyzed for now. This morning, she is on a mechanical ventilator on assist control mode at the rate of 30, tidal volume of 420, FiO2 of 70% with a PEEP of 16. Peak airway pressure is 45. The static air pressure is 42. The chest x-ray from today showing no evidence of any pneumothorax. There is still diffuse bilateral pulmonary infiltrates. There are bilateral chest tubes. Chest tubes are in good location. No evidence of any pneumothorax. The blood gases from this morning shows a pH of 7.47 with a pCO2 of 49 and pO2 of 49 and this was done and FiO2 of 60% and based on his affect was brought up to 70%. Meanwhile, the patient is on IV fluids. She is on normal saline at the rate of 20 mL an hour. Norepinephrine is being is less for hemodynamic support and it is running at 0.08 mcg/kg/m.. The patient remains on Decadron 6 mg by mouth on a daily basis and the patient is also on antic oagulation with Eliquis 5 mg by mouth twice a day. All of the cultures of been negative. The white cell count from this morning is at 19.7 with a hemoglobin of 8.3 and platelet count of 321. Sodium is at 139 with a potassium level of 3.3 and currently is 102 with a bicarb is of 36 creatinine is at 23 with a creatinine of 0.5. LFTs are all within normal limits. Noted the patient underwent a bronchoscopy on 10/16/2020. This was done strictly for airway inspection. No cultures were obtained. The patient is currently on no antibiotics. Inflammatory markers showed a pro-calcitonin level of 0.14 from 10/05/2020 and the patient also has LDH of 531 from 10/01/2021. The patient has a PICC line in her right upper extremity. There is a double-lumen PICC line. 10/19/2021, the patient is being seen for a follow-up. The patient remains essentially the same as yesterday. No major interval exchange architect the past 24 hours. She remains on propofol running at 60 mg/kg per minute and fentanyl is running at 2 mcg/kg/h and the patient is also paralyzed utilizing rocuronium running at 10 g. The patient is well sedated and paralyzed for now. She is afebrile and she is hemodynamically stable. She remains on assist control mode with a tidal volume of 420, rate of 30, FiO2 of 65% with a PEEP of 16. Peak pressures remains elevated at 46. Static pressures around 43. Chest x-ray shows no interval change compared to yesterday. No evidence of any pneumothorax. There is diffuse bilateral pulmonary infiltrates. There is evidence of bilateral chest tubes. No evidence of any air leaks through the chest tubes. Output from the chest tube is minimal at this point in time and is essentially serosanguineous. Blood gases from today showed a pH of 7.55 with a pCO2 of 41 and pO2 of 66. Patient is having significant fluctuation in her blood pressure. Yesterday for example she was on low-dose pressors. Subsequently, her blood pressure went up as high as systolic over the 180 range. The pressors were discontinued and the patient was started on Cleviprex drip for blood pressure control. Currently she is off all these drips. Her blood pressure is slightly hypertensive on mornings evaluation. Her white cell count is at 14.8 with a hemoglobin of 7.6 and a platelet count of 342. Sodium is at 139, BUN is at 24 with a creatinine of 0.5 and a blood sugar is at 100. LFTs are normal. Cultures are all negative. She has a double-lumen PICC line in her right upper extremity. Inflammatory markers have been essentially dropping and the patient is not receiving any antibiotic coverage for now. She remains on Decadron at a dose of 6 mg by mouth daily basis and she remains also on Eliquis 5 mg by mouth twice a day. She is receiving enteral feeding for nutritional support. She is currently on vital AF at the rate of 10 mL an hour. IV fluids are currently at KVO. She is receiving daily Lasix 40 mg IV every 24 hours. Fluid balance is negative approximately 700 mL over the past 24 hours. Objective - Vital Signs Vital signs: Vital Signs Temp 97.8 F 10/18/21 16:00 Pulse 80 10/19/21 06:00 Resp 30 H 10/19/21 06:00 BP 120/64 10/18/21 11:00 Pulse Ox 96 10/19/21 06:00 Intake & Output 10/18/21 10/18/21 10/19/21 06:59 18:59 06:59 Intake Total 2767.697 8777.530 922.101 Output Total 753 2025 980 Balance 578.330 -485.470 -57.899 Weight 94.5 kg 94.5 kg 94 kg Intake: IV 276 276 276 0.9 NS 240 240 240 pressure bag 36 36 36 Intake, IV Titration 875.330 903.530 406.101 Amount Clevidipine Butyrate 25 77.333 64.333 44.767 mg In Empty Bag 1 bag @ 1 MG/HR 2 mls/hr IV .Q24H [facility] Rx#:[id number] Norepinephrine 8 mg In 6.704 58.118 21.334 Sodium Chloride 0.9% 250 ml @ 0.05 MCG/KG/MIN 9. 143 mls/hr IV .Q24H [facility] Rx#:[id number] Rocuronium 400 mg In 280 140 140 Sodium Chloride 0.9% 100 ml @ 5 MCG/KG/MIN 9.954 mls/hr IV .Q14H4M [facility] Rx# :[id number] fentaNYL (PF) 2,500 mcg 250 250 In Sodium Chloride 0.9% 200 ml @ 0.5 MCG/KG/HR 4. 6 mls/hr IV .Q24H [facility] Rx# :[id number] propofoL 1,000 mg In 261.293 391.079 200 Empty Bag 1 bag @ Titrate IV .Q0M [facility] Rx#: [id number] Tube Feeding 60 110 120 Other 120 250 120 Output: Chest Tube Drainage 8 70 70 Chest Tube Left Lateral 0 40 62 Chest Chest Tube Right Lateral 8 30 8 Chest Urine 745 1955 910 Other: Voiding Method Indwelling Catheter Indwelling Catheter Indwelling Catheter ABP, PAP, CO, CI - Last Documented Arterial Blood Pressure 156/53 - Exam No acute distress, sedated and paralyzed, with tracheostomy tube in place. The patient has evidence of subcutaneous emphysema in the neck and anterior chest area and this can be easily palpated on today's evaluation. Head exam was generally normal. There was no scleral icterus or corneal arcus. Mucous membranes were moist. Neck was supple and without jugular venous distension, thyromegaly, or carotid bruits. Carotids were easily palpable bilaterally. There was no adenopathy Lungs were clear to auscultation and percussion, and with normal diaphragmatic excursion. No wheezes or rales were noted. Cardiac exam revealed the PMI to be normally situated and sized. The rhythm was regular and no extrasystoles were noted during several minutes of auscultation. The first and second heart sounds were normal and physiologic splitting of the second heart sound was noted. There were no murmurs, rubs, clicks, or gallops. The patient has bilateral chest tubes. No evidence of any air leak. Output from the chest tubes are minimal at this point in time. Abdominal exam revealed normal bowel sounds. The abdomen was soft, non-tender, and without masses, organomegaly, or appreciable enlargement of the abdominal aorta. The patient has a PEG tube also in place Examination of the extremities revealed easily palpable radial, femoral and pedal pulses. There was no cyanosis, clubbing or edema. Examination of the skin revealed no evidence of significant rashes, suspicious appearing nevi or other concerning lesions. Neurologic examination cannot be assessed as the patient is currently sedated and paralyzed. - Labs CBC & Chem 7: 10/19/21 03:00 10/19/21 03:00 Labs: Abnormal Lab Results - Last 24 Hours (Table) 10/18/21 10/18/21 10/18/21 Range/Units 11:26 13:40 17:33 WBC (3.8-10.6) k/uL RBC (3.80-5.40) m/uL Hgb (11.4-16.0) gm/dL Hct (34.0-46.0) % MCHC (31.0-37.0) g/dL RDW (11.5-15.5) % Neutrophils # (1.3-7.7) k/uL ABG pH (7.35-7.45) ABG pO2 (83-108) mmHg ABG HCO3 (21-25) mmol/L ABG Total CO2 (19-24) mmol/L Potassium 3.4 L (3.5-5.1) mmol/L Carbon Dioxide (22-30) mmol/L BUN (7-17) mg/dL Glucose (74-99) mg/dL POC Glucose (mg/dL) 173 H 168 H (75-99) mg/dL Calcium (8.4-10.2) mg/dL Total Protein (6.3-8.2) g/dL Albumin (3.5-5.0) g/dL 10/18/21 10/19/21 10/19/21 Range/Units 23:40 03:00 03:00 WBC 14.8 H (3.8-10.6) k/uL RBC 2.71 L (3.80-5.40) m/uL Hgb 7.6 L (11.4-16.0) gm/dL Hct 24.8 L (34.0-46.0) % MCHC 30.8 L (31.0-37.0) g/dL RDW 19.2 H (11.5-15.5) % Neutrophils # 11.4 H (1.3-7.7) k/uL ABG pH (7.35-7.45) ABG pO2 (83-108) mmHg ABG HCO3 (21-25) mmol/L ABG Total CO2 (19-24) mmol/L Potassium (3.5-5.1) mmol/L Carbon Dioxide 35 H (22-30) mmol/L BUN 24 H (7-17) mg/dL Glucose 100 H (74-99) mg/dL POC Glucose (mg/dL) 137 H (75-99) mg/dL Calcium 7.9 L (8.4-10.2) mg/dL Total Protein 4.6 L (6.3-8.2) g/dL Albumin 2.4 L (3.5-5.0) g/dL 10/19/21 10/19/21 Range/Units 05:20 05:54 WBC (3.8-10.6) k/uL RBC (3.80-5.40) m/uL Hgb (11.4-16.0) gm/dL Hct (34.0-46.0) % MCHC (31.0-37.0) g/dL RDW (11.5-15.5) % Neutrophils # (1.3-7.7) k/uL ABG pH 7.55 H (7.35-7.45) ABG pO2 66 L (83-108) mmHg ABG HCO3 37 H (21-25) mmol/L ABG Total CO2 38 H (19-24) mmol/L Potassium (3.5-5.1) mmol/L Carbon Dioxide (22-30) mmol/L BUN (7-17) mg/dL Glucose (74-99) mg/dL POC Glucose (mg/dL) 114 H (75-99) mg/dL Calcium (8.4-10.2) mg/dL Total Protein (6.3-8.2) g/dL Albumin (3.5-5.0) g/dL Assessment and Plan Plan: 1 Acute hypoxemic respiratory failure/ARDS secondary to coronavirus associated pneumonia, status post intubation, and mechanical ventilation on 09/25/2021.No evidence of pulmonary embolism on CT angiogram. The patient continues to have diffuse bilateral pulmonary infiltrates consistent with COVID 19 related pneumonia. Patient subsequently developed bilateral pneumothoraces. The patient has bilateral chest tubes and the chest tubes were inserted on 10/11/2021. The patient remains intubated on a mechanical ventilator. The patient has a tracheostomy on 10/14/2021 . The chest x-ray from today shows diffuse bilateral pulmonary infiltrates consistent with ARDS. Change Compared to Yesterday. Chest Tubes Are Essentially in Place. The Patient Remains on Decadron. The Patient Remains on Anticoagulation with Eliquis. Blood Gases Remained Abnormal and the Patient Shows Borderline Oxygenation. There Is a Component of Alkalosis with a pH of 7.55 and Morning Blood Gases. 2 acute COVID 19 related pneumonia 3 Acute bilateral pneumothoraces, status post bilateral chest tube placements, on 10/11/2021. subcutaneous emphysema, as a complication of mechanical ventilation and coronavirus associated pneumonia. 4 acute left lower extremity femoral DVT currently on Eliquis. The patient is known to have a Primary hypercoagulable state in the form of Leiden factor deficiency/factor V deficiency. The patient has been maintained on warfarin on outpatient basis. 5 Prior history of DVT. 6 History of fibromyalgia. 7 History of arthritis. 8 History of degenerative disc disease. 9 Mild transaminitis secondary to coronavirus infection. Plan Continue ventilator support for now. Will drop the tidal volume to 400. Will drop respiratory rate down to 26. Repeated blood gases and 3 hours. Keep chest tube in place for another 24 hours Continue Decadron Continue anticoagulation with Eliquis 5 mg by mouth twice a day Discontinue pressors enteral feeding for nutritional support, vital 1.2 @ 10cc/hr No major changes for today Prognosis remains poor. The patient is not having any major progress over the past several days. Obviously she carries a very poor prognosis. She is a case of post overnight he relates pneumonia/ARDS with prolonged respiratory failure. We'll continue to follow make further recommendations based on her progress. This is a critically care evaluation was done and more than 30 minutes. Time with Patient: Greater than 30
[2021-10-19] MEDS ORDERED: POTASSIUM BICARBONATE/CIT AC 20 MEQ TABLET.EFF NG-TUBE SCH (07:00)
[2021-10-19] MEDS: ROCURONIUM 400 MG in SODIUM CHLORIDE 0.9% 100 ML IV SCH ×2 (08:21→16:46)
[2021-10-19] MEDS: fentaNYL (PF) 2,500 MCG in SODIUM CHLORIDE 0.9% 200 ML IV SCH ×2 (08:23→22:28)
[2021-10-19] MEDS: INSULIN ASPART (NovoLOG) 100 UNIT/ML VIAL SQ SCH ×4 (08:27→23:41)
[2021-10-19] MEDS: NOREPINEPHRINE 8 MG in SODIUM CHLORIDE 0.9% 250 ML IV SCH (08:28)
[2021-10-19] MEDS: ZINC SULFATE 220 MG CAP PO SCH (09:24)
[2021-10-19] MEDS: APIXABAN 5 MG TAB PO SCH ×2 (09:24→20:41)
[2021-10-19] MEDS: PANTOPRAZOLE 40 MG/10 ML VIAL IV SCH (09:25)
[2021-10-19] MEDS: dexAMETHasone 2 MG TAB PO SCH (09:25)
[2021-10-19] MEDS: CHLORHEXIDINE GLUCONATE 15 ML CUP MUCOUS MEM SCH ×2 (09:25→20:41)
[2021-10-19] MEDS: FUROSEMIDE 10 MG/ML 4 ML VIAL IV SCH (09:25)
[2021-10-19] MEDS: ASCORBIC ACID 500 MG TAB PO SCH ×2 (09:25→20:41)
[2021-10-19] MEDS: ARTIFICIAL TEARS-HYPROMELLOSE DROPS 15 ML BTL BOTH EYES SCH ×4 (11:08→20:42)
--- NOTE | 2021-10-19 11:41 | P.PN ---
Subjective Progress Note Date: 10/19/21 Principal diagnosis: Respiratory failure Patient remains sedated on the ventilator. Patient's oxygen down to 65% FiO2. Tolerating tube feeds. Blood pressure more stable today. Objective - Vital Signs Vital signs: Vital Signs Temp 98.2 F 10/19/21 09:00 Pulse 84 10/19/21 11:00 Resp 26 H 10/19/21 11:00 BP 120/64 10/18/21 11:00 Pulse Ox 90 L 10/19/21 11:00 Intake & Output 10/18/21 10/19/21 10/19/21 18:59 06:59 18:59 Intake Total 0544.995 8993.101 349.638 Output Total 2025 980 550 Balance -485.470 332.101 -200.362 Weight 94.5 kg 94 kg Intake: IV 276 276 115 0.9 NS 240 240 100 pressure bag 36 36 15 Intake, IV Titration 903.530 796.101 164.638 Amount Clevidipine Butyrate 25 64.333 44.767 0 mg In Empty Bag 1 bag @ 1 MG/HR 2 mls/hr IV .Q24H [facility] Rx#:[id number] Norepinephrine 8 mg In 58.118 21.334 Sodium Chloride 0.9% 250 ml @ 0.05 MCG/KG/MIN 9. 143 mls/hr IV .Q24H [facility] Rx#:[id number] Rocuronium 400 mg In 140 280 Sodium Chloride 0.9% 100 ml @ 5 MCG/KG/MIN 9.954 mls/hr IV .Q14H4M [facility] Rx# :[id number] fentaNYL (PF) 2,500 mcg 250 250 In Sodium Chloride 0.9% 200 ml @ 0.5 MCG/KG/HR 4. 6 mls/hr IV .Q24H [facility] Rx# :[id number] propofoL 1,000 mg In 391.079 200 164.638 Empty Bag 1 bag @ Titrate IV .Q0M [facility] Rx#: [id number] Tube Feeding 110 120 40 Other 250 120 30 Output: Chest Tube Drainage 70 70 20 Chest Tube Left Lateral 40 62 20 Chest Chest Tube Right Lateral 30 8 Chest Urine 1955 910 530 Other: Voiding Method Indwelling Catheter Indwelling Catheter Indwelling Catheter ABP, PAP, CO, CI - Last Documented Arterial Blood Pressure 139/51 - Exam Tracheostomy site clean and dry, no air leak or signs of infection Abdomen soft nondistended nontender, PEG tube in place - Labs CBC & Chem 7: 10/19/21 03:00 10/19/21 03:00 Labs: Abnormal Lab Results - Last 24 Hours (Table) 10/18/21 10/18/21 10/18/21 Range/Units 13:40 17:33 23:40 WBC (3.8-10.6) k/uL RBC (3.80-5.40) m/uL Hgb (11.4-16.0) gm/dL Hct (34.0-46.0) % MCHC (31.0-37.0) g/dL RDW (11.5-15.5) % Neutrophils # (1.3-7.7) k/uL ABG pH (7.35-7.45) ABG pO2 (83-108) mmHg ABG HCO3 (21-25) mmol/L ABG Total CO2 (19-24) mmol/L Potassium 3.4 L (3.5-5.1) mmol/L Carbon Dioxide (22-30) mmol/L BUN (7-17) mg/dL Glucose (74-99) mg/dL POC Glucose (mg/dL) 168 H 137 H (75-99) mg/dL Calcium (8.4-10.2) mg/dL Total Protein (6.3-8.2) g/dL Albumin (3.5-5.0) g/dL 10/19/21 10/19/21 10/19/21 Range/Units 03:00 03:00 05:20 WBC 14.8 H (3.8-10.6) k/uL RBC 2.71 L (3.80-5.40) m/uL Hgb 7.6 L (11.4-16.0) gm/dL Hct 24.8 L (34.0-46.0) % MCHC 30.8 L (31.0-37.0) g/dL RDW 19.2 H (11.5-15.5) % Neutrophils # 11.4 H (1.3-7.7) k/uL ABG pH 7.55 H (7.35-7.45) ABG pO2 66 L (83-108) mmHg ABG HCO3 37 H (21-25) mmol/L ABG Total CO2 38 H (19-24) mmol/L Potassium (3.5-5.1) mmol/L Carbon Dioxide 35 H (22-30) mmol/L BUN 24 H (7-17) mg/dL Glucose 100 H (74-99) mg/dL POC Glucose (mg/dL) (75-99) mg/dL Calcium 7.9 L (8.4-10.2) mg/dL Total Protein 4.6 L (6.3-8.2) g/dL Albumin 2.4 L (3.5-5.0) g/dL 10/19/21 Range/Units 05:54 WBC (3.8-10.6) k/uL RBC (3.80-5.40) m/uL Hgb (11.4-16.0) gm/dL Hct (34.0-46.0) % MCHC (31.0-37.0) g/dL RDW (11.5-15.5) % Neutrophils # (1.3-7.7) k/uL ABG pH (7.35-7.45) ABG pO2 (83-108) mmHg ABG HCO3 (21-25) mmol/L ABG Total CO2 (19-24) mmol/L Potassium (3.5-5.1) mmol/L Carbon Dioxide (22-30) mmol/L BUN (7-17) mg/dL Glucose (74-99) mg/dL POC Glucose (mg/dL) 114 H (75-99) mg/dL Calcium (8.4-10.2) mg/dL Total Protein (6.3-8.2) g/dL Albumin (3.5-5.0) g/dL Assessment and Plan (1) Respiratory failure Narrative/Plan: Patient doing about the same today. May be slight improvements. No issues with the tracheostomy or PEG tube at this time. We'll follow. Current Visit: Yes Status: Acute Code(s): J96.90 - RESPIRATORY FAILURE, UNSP, UNSP W HYPOXIA OR HYPERCAPNIA SNOMED Code(s): 392029801
[2021-10-19 11:47] LABS: Glucose,Whole Blood 171 mg/dL (75-99)
[2021-10-19] MEDS: LACTATED RINGERS 1,000 ML IV SCH (14:53)
[2021-10-19 17:44] LABS: Glucose,Whole Blood 193 mg/dL (75-99)
[2021-10-19] MEDS ORDERED: CLEVIDIPINE BUTYRATE 25 MG/50 ML VIAL IV ONE (19:08)
[2021-10-19 23:41] LABS: Glucose,Whole Blood 129 mg/dL (75-99)
--- NOTE | 2021-10-20 01:30 | P.PN ---
Subjective Progress Note Date: 10/19/21 This is a 61-year-old female who was recently admitted with acute COVID-19 pneumonia with acute COVID-19 bilateral interstitial pneumonia and also with transaminitis and being closely monitored. Patient remains in the ICU and currently intubated and sedated with an FiO2 of 70% and PEEP is 18. 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 Patient did have a venous Doppler study done recently which showed left leg DVT and patient is maintained on Eliquis will continue. Patient also continues on empiric antibiotics and awaiting for sputum culture finalized. Patient was started on IV cefepime and will continue. Patient is also continued on oral dexamethasone along with vitamin and zinc supplements and will continue. Patient with some mild volume overload and given a dose of IV Lasix push today. 09/29/2021 Patient is seen and evaluated this morning continues to be closely monitored in the ICU and continues to be on mechanical ventilation and sedated. FiO2 was increased at 80% with a PEEP of 18 and oxygen saturations between 87-91%. Patient developing subcutaneous emphysema in the neck and chest wall area and chest x-ray today shows bilateral multifocal and confluent opacification is redemonstrated consistent with COVID-19 infection with a new small left apical pneumothorax estimated under 5% with new pneumomediastinum and recurrent overlying subcutaneous emphysema noted. Patient is white blood count mildly elevated at 16.1 and is continued on oral dexamethasone along with oral eliquis for anticoagulation. Patient continues to be on IV cefepime and blood and sputum cultures are negative thus far. 09/30/2021 Patient is seen today continues to be closely monitored in the ICU with multiple medical consultations following. Patient continues to be mechanically intubated and sedated with continued subcutaneous emphysema noted. Chest xray shows a trace left apical pneumothorax that is minimally smaller 7mm versus 1cm previously, extensive bilateral subcutaneous emphysema persists and diffuse interstitial changes and bilateral patchy opacities persist with slight improvement in aeration in the lower lungs. Per nursing staff corbin was clogged with copious amounts of white discharge and will add diflucan and corbin catheter has been changed and draining adequately. Patient continues on IV cefepime. Patient tolerating tube feeds and will continue. 10/01/2021 Patient is seen and evaluated in follow up this morning and continues to be closely monitored. Multiple medical consultations following and patient c ontinues to be on mechanical vent and sedated. Patient continues on IV Cefepime and diflucan. Patient chest xray today shows stable extensive subcutaneous emphysema, no pneumothorax, and patchy bilateral lung infiltrates remain present. INflammatory markers trending down. 10/04/2021 Patient is seen in follow-up continues to be closely monitored in the ICU. Patient remains on mechanical vent with an FI02 of 65% and peep is 18. Weaning trials being attempted with pulmonary laborer wharf following closely. Patient continues with extensive subq emphysema noted on exam. 10/05/2021 Patient Is seen and evaluated this morning with continued attempts at weaning and continues on mechanical vent and intubated with pulmonary laborer wharf following closely. Patient remains on Eliquis which will be held as surgery Dr. Nelson was consulted for possible PEG and trach tube placement for unsuccessful attempts at weaning from ventilation and prolonged hospitalization on mechanical vent. Chest x-ray today shows recurrent tiny left apical pneumothorax estimated under 5% with worsening overlying subcutaneous emphysema and again pneumomediastinum redemonstrated with multifocal confluent opacification's redemonstrated consistent with COVID-19 infection and/or arts are redemonstrated with no significant change from one day previously. Patient continues on FiO2 of 65% and PEEP was weaned down to 14 today. IV cefepime discontinued. 10/06/2021 Patient is seen in follow-up this morning per nursing staff patient had multiple runs of ectopy an irregular heart rate and rhythms with PVCs and cardiology consulted. Patient was placed on lidocaine drip and was originally on eliquis is currently on hold for possible PEG and trach placement with general surgery following. Patient had difficulty maintaining oxygen saturations and FiO2 was increased to 100% and PEEP continues at 14. Multiple medical consultations following and patient continues on oral steroids along with vitamin and zinc supplements along with fluconazole. Patient being started on IV Lasix daily and recommend close monitoring of electrolytes and kidney functions. 10/07/2021 Patient is seen in follow-up this morning continues to be monitored closely in the ICU with multiple medical consultations following. Patient is currently on mechanical vent with an FiO2 of 80% and PEEP is 16. General surgery also following for possible PEG and trach placement and will need to discuss with surgery about when this will occur. Patient remains on fluconazole. She also continues on vitamin and zinc supplements along with oral dexamethasone, clevidipine, Nimbex, IV Lasix, fentanyl and propofol and is off norepinephrine. Chest x-ray shows stable bilateral lung infiltrates. 10/08/2021 Patient is seen this morning continues to be on mechanical vent with an FiO2 of 85% and PEEP of 16. Patient continues with extensive subcutaneous emphysema and plans are for possible PEG and trach placement although on hold until possibly next week once more stable. Patient continues on Cleviprex along with fentanyl and propofol and is receiving IV Lasix daily. Patient also continues on lidocaine drip which is currently on hold and cardiology is following closely. Anticoagulant was resumed for now again until more stable to undergo PEG and trach placement. Chest x-ray today shows persistent bilateral multifocal and confluent increased opacification is with persistent overlying subcutaneous emphysema noted in pneumomediastinum is again redemonstrated. 10/09/2021 Patient evaluated today in ICU mechanical ventilation with FiO2 of 80%. Chest x-ray this morning shows similar multifocal airspace opacities and stable support lines and tubes. Similar subcutaneous emphysema scattered throughout the visualized thorax. PEG and trach plan for next week once more stable. Current meds include Cleviprex, Nimbex, fentanyl, propofol. She is receiving IV fluconazole, as well as IV Lasix. Levophed and Lidocaine gtt;s are on hold. Positive bowel sounds. Current vitals afebrile, heart rate 71, blood pressure 135/60 and oxygen saturation is 93%. Respirations 30. Labs today, white count 17, hemoglobin 11.6, sodium 139, potassium 3.8, BUN 34, creatinine 0.91, CO2 33, calcium 8.7, ALT 54, albumin 2.8 with blood sugars in the 100s. 10/10/2021 Patient evaluated today in the ICU on the mechanical VENT with fio2 of 100%. Positive bowel movement today, Stage 2 pressure ulcer on coccyx per RN, optifoam ordered. Per RN they were unable to patient as she was desaturating. They're unable to wean Fi02 currently as she does desaturate with any time of movement. She was lying more on her right side during evaluation and pulse ox was dropping into high 80s she was being repositioned by nurses. Plan is to PEG/TRACH patient tomorrow. Last family update was 4 days ago. We will call and discuss case today. Patient is afebrile, heart rate 84, respirations 30, blood pressure 141/55, 92% oxygen saturation on 100% Fi02, which was increased today up from 70 Fi02%. Labs today show WBC of 15.6, hgbl 10.7, sodium 138, potassium 3.9, chloride 100, CO2 37, glucose 117, calcium 8.2. Chest xray today shows pneumonia, ARDS. 10/11/2021 Patient is seen and evaluated in follow-up this morning continues to be closely monitored in the ICU and patient is continued on FiO2 of 90% and PEEP is 16 with multiple medical consultations following. Chest x-ray today shows new left- sided pneumothorax estimated 10-20% with overlying subcutaneous emphysema and pneumomediastinum redemonstrated with bilateral multifocal and confluent op acification's redemonstrated consistent with COVID-19 infection and/or arts and no significant change from one day previous. Patient is status post left chest tube insertion with pulmonary laborer wharf. Cardiology following and patient is off lidocaine drip and maintaining sinus rhythm. Patient also continues on vitamin and zinc supplements along with oral dexamethasone and patient continues on IV Lasix 40 mg daily. Patient also continues off norepinephrine and is currently maintained on IV cefepime along with fluconazole. General surgery following as well and plan is for peg and trach placement in the am 10/12/2021 Patient is seen in the ICU this morning continues to be closely monitored by multiple medical consultations. Patient was scheduled for PEG and trach placement with general surgery Dr. Nelson today although canceled as patient became hypotensive requiring Levophed along with acute blood loss anemia and hemoglobin dropped to 6.5 this morning requiring 1 unit of PRBC. Patient continues with left chest tube with pneumothorax and chest x-ray today shows the jahaira is difficult to clearly identify on the present exam and the ET tube may be approximately 1 cm from the jahaira and there are bilateral chest tubes present with continued diffuse interstitial opacification is and more focal bibasilar opacification is with subcutaneous emphysema persists along the upper chest with slight improvement on the left. No appreciable pneumothorax noted. Patient having worsening right pleural effusion last night and received a right- sided chest tube with pulmonary laborer wharf. FiO2 is 90% and PEEP of 16. Again overall prognosis remains extremely poor and guarded. 10/13/2021 Patient is seen in follow-up this morning in the ICU with multiple medical consultations following. Lengthy discussion was had with pulmonary laborer wharf and family members and would like to continue with full CODE STATUS and plan is in place for PEG tube and tracheostomy placement tomorrow. Anticoagulant on hold and Dr. Nelson plans for surgery tomorrow. Patient continues on oral dexamethasone along with IV cefepime, vitamin and zinc supplements. Patient also continues on Cleviprex and Nimbex. Patient also continues on fentanyl and propofol and will continue. Chest x-ray today shows stable portable chest with bilateral chest tubes without sizable pneumothorax identified and continued subcutaneous air persists with persistent interstitial changes bilaterally with airspace disease in the bilateral lung bases that are unchanged. FiO2 is 60% and PEEP of 16. 10/14/2021 Patient is seen and evaluated in the ICU being closely monitored with multiple medical consultations following. at the bedside today and had detailed discussion with overall prognosis. Plan is to proceed with PEG tube and tracheostomy placement with surgery Dr. Nelson today and anticoagulant continues to be on hold for this procedure. Patient continues on mechanical ventilation with an FiO2 of 70% and PEEP of 16. Chest x-ray today shows improving infiltrate with bibasilar residual and bilateral chest tubes remain present with no pneumothorax evident on either side and again subcutaneous emphysema is noted. 10/15/2021 Patient is seen in the ICU being closely monitored. Patient is status post PEG and trach placement yesterday. Chest x-ray today shows bilateral patchy lung infiltrates greater at the right base with diffuse increased lung markings and bilateral chest tubes remain present and subcutaneous emphysema on the right is diminished. Patient continues with an FI02 of 60 and peep is 16. To resume tube feeds per surgery. Patient continues on norepinephrine and sedation. Patient is receiving IV lasix daily. 10/16/2021 Patient is currently in the MICU and remains on ventilator. Status post tracheostomy and PEG tube placement on 10/14/2021. Patient is sedated and paralyzed. Also on Cleviprex. Chest x-ray showed no acute cardiopulmonary disease with no interval changes. Laboratory data showed WBC 16.9 hemoglobin 8.9 and platelets 278 BUN 19 and creatinine 0.5 and calcium 8.1 patient is being continued on dexamethasone 6 mg daily, Lasix 40 mg IV daily and multivitamins and anticoagulation with Eliquis. Pulmonary and general surgery is on board. 10/17/2021 Patient is in the MICU. Remains on the current ventilator via tracheostomy. Status post tracheostomy and PEG tube placement on 10/14/2021. Sedated and paralyzed and also on fentanyl drip. Currently on assist control with tidal volume of 420, FiO2 80% and PEEP of 16. Respiratory of 30. Chest x-ray showed no interval change in acute cardiopulmonary disease Laboratory data showed WBC 15.8 hemoglobin 8.2 and platelets 271 Sodium 136 potassium 3.1 chloride 100 bicarb is 32 BUN 21 creatinine 0.48 and albumin 2.3 Patient is being continued on Lasix IV, dexamethasone and anticoagulation with Eliquis. 10/18/2021 Patient is seen in follow-up and continues in the ICU with multiple medical consultations following. Patient continues on mechanical vent with an FI02 of 70% and peep is 16. Chest xray shows overall stable exam with interstitial changes and bilateral patchy infiltrates with right greater than left and greater at the bases with bilateral chest tubes noted. no appreciable pneumothorax. Patient continues on propofol and fentanyl along with cleviprex and rocuronium. Eliquis has been resumed. Potassium is 3.3 and will be replaced per protocol. Patient also continues to receive IV lasix daily. 10/19/2021 Patient is seen this morning and continues to be in the ICU with multiple medical consultations following. Patient continues with bilateral chest tubes and remains on mechanical ventilation with an FiO2 of 65% and PEEP is 16. Chest x-ray today shows Bilateral multifocal and confluent opacification greatest in the lower lungs consistent with COVID-19 infection and/or ARDS all redemon strated with no significant change from one day earlier and continued bilateral chest tubes without pneumothorax redemonstrated. Review of systems: Unable to obtain as patient is mechanically intubated and sedated Labs: WBC is 14.8, hemoglobin is 7.6, platelets are 342, sodium is 139, potassium 3.6, BUN 24, creatinine 0.53, calcium is 7.9. Active Medications Apixaban (Apixaban 5 Mg Tab) 5 mg PO BID [facility]; Protocol Last Admin: 10/19/21 09:24 Dose: 5 mg Documented by: Artificial Tears (Artificial Tears-Hypromellose Drops 15 Ml Btl) 2 drops BOTH EYES QID [facility] Last Admin: 10/19/21 11:08 Dose: 2 drops Documented by: Ascorbic Acid (Ascorbic Acid 500 Mg Tab) 500 mg PO BID [facility] Last Admin: 10/19/21 09:25 Dose: 500 mg Documented by: Chlorhexidine Gluconate (Chlorhexidine Gluconate 15 Ml Cup) 15 ml MUCOUS MEM BID [facility] Last Admin: 10/19/21 09:25 Dose: 15 ml Documented by: Dexamethasone (Dexamethasone 2 Mg Tab) 6 mg PO DAILY [facility] Last Admin: 10/19/21 09:25 Dose: 6 mg Documented by: Docusate Sodium (Docusate Oral Soln 100 Mg/10 Ml Cup) 100 mg PO DAILY PRN PRN Reason: Constipation Last Admin: 10/18/21 15:53 Dose: 100 mg Documented by: Ergocalciferol (Ergocalciferol 1,250 Mcg (50,000 Iu) Capsule) 1,250 mcg PO [facility] Last Admin: 10/17/21 08:14 Dose: 1,250 mcg Documented by: Furosemide (Furosemide 10 Mg/Ml 4 Ml Vial) 40 mg IV DAILY [facility] Last Admin: 10/19/21 09:25 Dose: 40 mg Documented by: Propofol 1,000 mg/ IV Solution 100 mls @ 0 mls/hr IV .Q0M [facility]; Protocol Last Admin: 10/19/21 10:15 Dose: 60 mcg/kg/min, 34.02 mls/hr Documented by: Sodium Chloride (Saline 0.9%) 1,000 mls @ 20 mls/hr IV .Q24H [facility] Last Admin: 10/18/21 23:59 Dose: 20 mls/hr Documented by: Fentanyl Citrate 2,500 mcg/ (Sodium Chloride) 250 mls @ 4.6 mls/hr IV .Q24H [facility]; Protocol Last Admin: 10/19/21 08:23 Dose: 2 mcg/kg/hr, 18.4 mls/hr Documented by: Clevidipine 25 mg/ IV Solution 50 mls @ 2 mls/hr IV .Q24H [facility]; Protocol Last Admin: 10/19/21 09:26 Dose: 3 mg/hr, 6 mls/hr Documented by: Lactated Ringer's (Lactated Ringers) 1,000 mls @ 20 mls/hr IV .Q24H [facility] Last Admin: 10/18/21 11:31 Dose: 20 mls/hr Documented by: Norepinephrine Bitartrate 8 mg (/ Sodium Chloride) 258 mls @ 9.143 mls/hr IV .Q24H [facility]; Protocol Last Admin: 10/19/21 08:28 Dose: Not Given Documented by: Rocuronium [place] 400 mg/ (Sodium Chloride) 140 mls @ 9.954 mls/hr IV .Q14H4M [facility]; Protocol Last Admin: 10/19/21 08:21 Dose: 10 mcg/kg/min, 19.908 mls/hr Documented by: Insulin Aspart (Insulin Aspart (Novolog) 100 Unit/Ml Vial) 0 unit SQ Q6HR [facility]; Protocol Last Admin: 10/19/21 12:08 Dose: 2 unit Documented by: Miscellaneous Information (Pneumonia Protocol Utilized 1 Each Misc) 1 each PO ONCE PRN PRN Reason: Per Protocol Miscellaneous Information (Potassium Replacement Protocol 1 Each Misc) 1 each MISCELLANE DAILY PRN; Protocol PRN Reason: Per Protocol Naloxone HCl (Naloxone 0.4 Mg/Ml 1 Ml Vial) 0.2 mg IV Q2M PRN PRN Reason: Opioid Reversal Pantoprazole Sodium (Pantoprazole 40 Mg/10 Ml Vial) 40 mg IV DAILY [facility] Last Admin: 10/19/21 09:25 Dose: 40 mg Documented by: Zinc Sulfate (Zinc Sulfate 220 Mg Cap) 220 mg PO DAILY [facility] Last Admin: 10/19/21 09:24 Dose: 220 mg Documented by: Physical Exam: Gen: This is a 61-year-old female currently sedated and intubated. mechanical ventilation Fio2 65% with a PEEP of 16 HEENT: Head is atraumatic, normocephalic. Pupils equal, round. Sclerae is anicteric. tracheostomy noted NECK: Supple. No JVD. No lymphadenopathy. No thyromegaly. tracheostomy noted LUNGS: Diminished breath sounds bilaterally with coarse rhonchi and crackles noted. No intercostal retractions. Bilateral chest tubes noted HEART: S1, S2 are muffled ABDOMEN: Soft. Bowel sounds are present. No masses. No tenderness. peg tube noted. EXTREMITIES: No pedal edema. No calf tenderness. generalized edema noted NEUROLOGICAL: Patient is currently intubated and sedated Assessment: Acute COVID-19 infection with acute COVID-19 bilateral interstitial pneumonia with hypoxic hypercarbic respiratory failure on mechanical vent status post trach and peg tube placement on 10/14/2021 Subcutaneous emphysema of the neck and chest Left pneumothorax status post chest tube placement Right-sided pleural effusion with new small right pneumothorax status post chest tube placement Acute blood loss anemia secondary to bilateral chest tube placements with a drop in hemoglobin to 6.5 and was given 1 unit of PRBC, possible hypovolemic shock requiring pressor support, currently hypertensive and off pressors Non-sustained ventricular tachycardia, currently sinus Acute left leg deep vein thrombosis Acute respiratory acidosis Primary hypercoagulable state and factor V week deficiency Mild transaminitis, possibly secondary to COVID-19 History of degenerative joint disease History of fibromyalgia Elevated inflammatory markers of COVID-19 Obesity with a body mass index of 38.1 Full code Plan: Recommend to continue with current medications and follow along closely with multiple medical consultations. Prognosis remains extremely poor and guarded with multiple complex medical issues noted. Patient continues on mechanical ventilation via tracheostomy and FiO2 65% with PEEP of 16. Recommend to continue with current medications. Patient continues on cleviprex along with propofol and fentanyl, and rocuronium. Recommend repeat labs and continued close monitoring. Again due to multiple complex medical issues overall prognosis is extremely poor and quite guarded. Objective - Vital Signs Vital signs: Vital Signs Temp 97.8 F 10/18/21 16:00 Pulse 90 10/19/21 08:00 Resp 27 H 10/19/21 08:00 BP 120/64 10/18/21 11:00 Pulse Ox 94 L 10/19/21 08:00 Intake & Output 10/18/21 10/19/21 10/19/21 18:59 06:59 18:59 Intake Total 4123.349 6777.101 123 Output Total 5 980 30 Balance -485.470 332.101 93 Weight 94.5 kg 94 kg Intake: IV 276 276 23 0.9 NS 240 240 20 pressure bag 36 36 3 Intake, IV Titration 903.530 796.101 100 Amount Clevidipine Butyrate 25 64.333 44.767 mg In Empty Bag 1 bag @ 1 MG/HR 2 mls/hr IV .Q24H [facility] Rx#:[id number] Norepinephrine 8 mg In 58.118 21.334 Sodium Chloride 0.9% 250 ml @ 0.05 MCG/KG/MIN 9. 143 mls/hr IV .Q24H [facility] Rx#:[id number] Rocuronium 400 mg In 140 280 Sodium Chloride 0.9% 100 ml @ 5 MCG/KG/MIN 9.954 mls/hr IV .Q14H4M [facility] Rx# :[id number] fentaNYL (PF) 2,500 mcg 250 250 In Sodium Chloride 0.9% 200 ml @ 0.5 MCG/KG/HR 4. 6 mls/hr IV .Q24H [facility] Rx# :[id number] propofoL 1,000 mg In 391.079 200 100 Empty Bag 1 bag @ Titrate IV .Q0M [facility] Rx#: [id number] Tube Feeding 110 120 Other 250 120 Output: Chest Tube Drainage 70 70 Chest Tube Left Lateral 40 62 Chest Chest Tube Right Lateral 30 8 Chest Urine 1955 910 30 Other: Voiding Method Indwelling Catheter Indwelling Catheter ABP, PAP, CO, CI - Last Documented Arterial Blood Pressure 161/56 - Labs CBC & Chem 7: 10/19/21 03:00 10/19/21 03:00 Labs: Abnormal Lab Results - Last 24 Hours (Table) 10/18/21 10/18/21 10/18/21 Range/Units 11:26 13:40 17:33 WBC (3.8-10.6) k/uL RBC (3.80-5.40) m/uL Hgb (11.4-16.0) gm/dL Hct (34.0-46.0) % MCHC (31.0-37.0) g/dL RDW (11.5-15.5) % Neutrophils # (1.3-7.7) k/uL ABG pH (7.35-7.45) ABG pO2 (83-108) mmHg ABG HCO3 (21-25) mmol/L ABG Total CO2 (19-24) mmol/L Potassium 3.4 L (3.5-5.1) mmol/L Carbon Dioxide (22-30) mmol/L BUN (7-17) mg/dL Glucose (74-99) mg/dL POC Glucose (mg/dL) 173 H 168 H (75-99) mg/dL Calcium (8.4-10.2) mg/dL Total Protein (6.3-8.2) g/dL Albumin (3.5-5.0) g/dL 10/18/21 10/19/21 10/19/21 Range/Units 23:40 03:00 03:00 WBC 14.8 H (3.8-10.6) k/uL RBC 2.71 L (3.80-5.40) m/uL Hgb 7.6 L (11.4-16.0) gm/dL Hct 24.8 L (34.0-46.0) % MCHC 30.8 L (31.0-37.0) g/dL RDW 19.2 H (11.5-15.5) % Neutrophils # 11.4 H (1.3-7.7) k/uL ABG pH (7.35-7.45) ABG pO2 (83-108) mmHg ABG HCO3 (21-25) mmol/L ABG Total CO2 (19-24) mmol/L Potassium (3.5-5.1) mmol/L Carbon Dioxide 35 H (22-30) mmol/L BUN 24 H (7-17) mg/dL Glucose 100 H (74-99) mg/dL POC Glucose (mg/dL) 137 H (75-99) mg/dL Calcium 7.9 L (8.4-10.2) mg/dL Total Protein 4.6 L (6.3-8.2) g/dL Albumin 2.4 L (3.5-5.0) g/dL 10/19/21 10/19/21 Range/Units 05:20 05:54 WBC (3.8-10.6) k/uL RBC (3.80-5.40) m/uL Hgb (11.4-16.0) gm/dL Hct (34.0-46.0) % MCHC (31.0-37.0) g/dL RDW (11.5-15.5) % Neutrophils # (1.3-7.7) k/uL ABG pH 7.55 H (7.35-7.45) ABG pO2 66 L (83-108) mmHg ABG HCO3 37 H (21-25) mmol/L ABG Total CO2 38 H (19-24) mmol/L Potassium (3.5-5.1) mmol/L Carbon Dioxide (22-30) mmol/L BUN (7-17) mg/dL Glucose (74-99) mg/dL POC Glucose (mg/dL) 114 H (75-99) mg/dL Calcium (8.4-10.2) mg/dL Total Protein (6.3-8.2) g/dL Albumin (3.5-5.0) g/dL
[2021-10-20] MEDS: ROCURONIUM 400 MG in SODIUM CHLORIDE 0.9% 100 ML IV SCH ×4 (01:31→22:31)
[2021-10-20] MEDS: SODIUM CHLORIDE 0.9% 1,000 ML IV SCH (02:29)
[2021-10-20] MEDS: NOREPINEPHRINE 8 MG in SODIUM CHLORIDE 0.9% 250 ML IV SCH ×2 (02:29→13:19)
[2021-10-20 04:58] LABS: Anisocytosis Slight; Basophils % (A) 0 %; Eosinophils # (A) 0.3 k/uL (0-0.7); Eosinophils % (A) 2 %; HCT 25.7 % (34.0-46.0); HGB 8.1 gm/dL (11.4-16.0); Hypochromasia Marked; Lymphocytes # (A) 2.1 k/uL (1.0-4.8); Lymphocytes % (A) 15 %; MCH 29.5 pg (25.0-35.0); MCHC 31.6 g/dL (31.0-37.0); MCV 93.4 fL (80.0-100.0); Macrocytosis Slight; Mean Platelet Volume 8.3; Monocytes % (A) 8 %; Neutrophils % (A) 74 %; Platelet Count 295 k/uL (150-450); Poikilocytosis Slight; RBC 2.75 m/uL (3.80-5.40); RDW 18.7 % (11.5-15.5); WBC 13.5 k/uL (3.8-10.6)
[2021-10-20 05:16] LABS: ALT 17 U/L (4-34); AST 17 U/L (14-36); African American GFR (CKD) >90 (>60 ml/min/1.73 sqM); Albumin 2.6 g/dL (3.5-5.0); Alkaline Phosphatase 59 U/L (38-126); Anion Gap 4 mmol/L; Blood Urea Nitrogen 23 mg/dL (7-17); Calcium 8.3 mg/dL (8.4-10.2); Carbon Dioxide 36 mmol/L (22-30); Chloride 100 mmol/L (98-107); Glucose 96 mg/dL (74-99); Non-African American GFR(CKD) >90 (>60 ml/min/1.73 sqM); Potassium 3.1 mmol/L (3.5-5.1); Sodium 140 mmol/L (137-145); Total Bilirubin 0.7 mg/dL (0.2-1.3)
[2021-10-20] MEDS: POTASSIUM BICARBONATE/CIT AC 20 MEQ TABLET.EFF NG-TUBE SCH ×4 (05:48→16:52)
[2021-10-20 05:57] LABS: Glucose,Whole Blood 105 mg/dL (75-99)
[2021-10-20] MEDS: INSULIN ASPART (NovoLOG) 100 UNIT/ML VIAL SQ SCH ×3 (05:59→18:37)
[2021-10-20 06:14] LABS: ABG Base Excess 14.3 mmol/L; ABG HCO3 38 mmol/L (21-25); ABG Oxygen Saturation 94.4 % (94-97); ABG PCO2 48 mmHg (35-45); ABG PO2 65 mmHg (83-108); ABG TCO2 39 mmol/L (19-24); Allen Test Performed? Yes
--- NOTE | 2021-10-20 07:30 | XR ---
EXAMINATION TYPE: XR chest 1V portable DATE OF EXAM: 10/20/2021 COMPARISON: 10/19/2021 HISTORY: SOB, Follow Up FINDINGS: Indwelling tubes and catheters are unchanged. No change in scattered mixed interstitial and alveolar infiltrates. Stable appearance of the cardio-mediastinal structures at this time. IMPRESSION: 1. Stable portable chest. Clinical correlation and follow up until resolution is recommended.
--- NOTE | 2021-10-20 08:52 | P.PN ---
Subjective Progress Note Date: 10/20/21 61-year-old female who is in the MICU with COVID-19 related pneumonia. The patient stated that she was having symptoms since September 10. The symptoms included shortness of breath, cough, fatigue, muscle aches, and generally just not feeling well. The patient is non vaccinated. She tested positive for coronavirus on September 23. The patient takes Coumadin chronically for her factor V or Leiden factor deficiency. Initially, on room air, her saturations were in the 70s, and on a nonrebreather, only got up into the mid 80s. In addition to the primary hypercoagulable state, she has a history of DVT, fibromyalgia, pneumonia, arthritis, and degenerative disc disease. She is a lifelong nonsmoker. Chest x-ray reveals diffuse bilateral infiltrates. CT angiogram was negative for pulmonary embolism, but did show diffuse infiltrates consistent with coronavirus pneumonia. Subsequently, the patient was placed on a BiPAP for respiratory support. Following that, on 09/25/2021 required intubation and mechanical ventilation. On today's evaluation of 10/18/2021, the patient remains on a mechanical ventilator. The patient remains sedated and paralyzed. She had a complicated COVID 19 pneumonia course here in the intensive care unit. The patient developed bilateral pneumothoraces and currently she still has bilateral chest tubes in place. This morning, the patient remains sedated and the patient is currently on propofol at 50 mcg/kg per minute, fentanyl at 2 mcg/kg per minute and the patient is paralyzed with rocuronium running at 10 g. The patient is adequately sedated and paralyzed for now. This morning, she is on a mechanical ventilator on assist control mode at the rate of 30, tidal volume of 420, FiO2 of 70% with a PEEP of 16. Peak airway pressure is 45. The static air pressure is 42. The chest x-ray from today showing no evidence of any pneumothorax. There is still diffuse bilateral pulmonary infiltrates. There are bilateral chest tubes. Chest tubes are in good location. No evidence of any pneumothorax. The blood gases from this morning shows a pH of 7.47 with a pCO2 of 49 and pO2 of 49 and this was done and FiO2 of 60% and based on his affect was brought up to 70%. Meanwhile, the patient is on IV fluids. She is on normal saline at the rate of 20 mL an hour. Norepinephrine is being is less for hemodynamic support and it is running at 0.08 mcg/kg/m.. The patient remains on Decadron 6 mg by mouth on a daily basis and the patient is also on antic oagulation with Eliquis 5 mg by mouth twice a day. All of the cultures of been negative. The white cell count from this morning is at 19.7 with a hemoglobin of 8.3 and platelet count of 321. Sodium is at 139 with a potassium level of 3.3 and currently is 102 with a bicarb is of 36 creatinine is at 23 with a creatinine of 0.5. LFTs are all within normal limits. Noted the patient underwent a bronchoscopy on 10/16/2020. This was done strictly for airway inspection. No cultures were obtained. The patient is currently on no antibiotics. Inflammatory markers showed a pro-calcitonin level of 0.14 from 10/05/2020 and the patient also has LDH of 531 from 10/01/2021. The patient has a PICC line in her right upper extremity. There is a double-lumen PICC line. 10/19/2021, the patient is being seen for a follow-up. The patient remains essentially the same as yesterday. 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 She remains on propofol running at 60 mg/kg per minute and fentanyl is running at 2 mcg/kg/h and the patient is also paralyzed utilizing rocuronium running at 10 g. The patient is well sedated and paralyzed for now. She is afebrile and she is hemodynamically stable. She remains on assist control mode with a tidal volume of 420, rate of 30, FiO2 of 65% with a PEEP of 16. Peak pressures remains elevated at 46. Static pressures around 43. Chest x-ray shows no interval change compared to yesterday. No evidence of any pneumothorax. There is diffuse bilateral pulmonary infiltrates. There is evidence of bilateral chest tubes. No evidence of any air leaks through the chest tubes. Output from the chest tube is minimal at this point in time and is essentially serosanguineous. Blood gases from today showed a pH of 7.55 with a pCO2 of 41 and pO2 of 66. Patient is having significant fluctuation in her blood pressure. Yesterday for example she was on low-dose pressors. Subsequently, her blood pressure went up as high as systolic over the 180 range. The pressors were discontinued and the patient was started on Cleviprex drip for blood pressure control. Currently she is off all these drips. Her blood pressure is slightly hypertensive on mornings evaluation. Her white cell count is at 14.8 with a hemoglobin of 7.6 and a platelet count of 342. Sodium is at 139, BUN is at 24 with a creatinine of 0.5 and a blood sugar is at 100. LFTs are normal. Cultures are all negative. She has a double-lumen PICC line in her right upper extremity. Inflammatory markers have been essentially dropping and the patient is not receiving any antibiotic coverage for now. She remains on Decadron at a dose of 6 mg by mouth daily basis and she remains also on Eliquis 5 mg by mouth twice a day. She is receiving enteral feeding for nutritional support. She is currently on vital AF at the rate of 10 mL an hour. IV fluids are currently at KVO. She is receiving daily Lasix 40 mg IV every 24 hours. Fluid balance is negative approximately 700 mL over the past 24 hours. On 2021, the patient is being seen for a follow-up. This morning, she is on propofol running at the rate of 50 mcg/kg per minute and the patient is also on fentanyl running at 1.5 mcg/kg/h. The patient is still on rocuronium for paralysis. Chest x-ray shows adequate expansion of both lungs. No evidence of any pneumothorax. No evidence of any subcutaneous emphysema. Chest tubes are in place. ET tube is in a good location. No evidence of any air leaks of the chest tube and I think it's reasonable to remove both of the chest tubes out today. Meanwhile, the patient remains on a mechanical ventilator. She is on assist-control at the rate of 26 and a tidal volume of 400 and FiO2 of 60% with a PEEP of 16. Peak airway pressures around 38. Static pressures 36. The pH is at 7.49 with a pCO2 of 48 and pO2 of 65. No respiratory secretions for now. She is afebrile. She is hemodynamically stable. She is on no pressors. She is still on Decadron 6 mg on a daily basis. Anticoagulations with Eliquis 5 mg by mouth twice a day The patient also had a DVT of the left lower extremity and previous history of hypercoagulability. Enterofeeding is still in the form of vital AF at the rate of 10 mL an hour. The patient is also receiving daily Lasix 40 mg IV every 24 hours. She is off Cleviprex for now. The blood work from today shows a white cell count of 15.5 with a hemoglobin of 8.4 and the plated count of 295. The sodium is 140 with a potassium level of 3.1, serum bicarbonate of 36 with a BUN of 23 and a creatinine of 0.5. LFTs are all within normal limits. Objective - Vital Signs Vital signs: Vital Signs Temp 98.5 F 10/19/21 20:00 Pulse 69 10/20/21 07:00 Resp 26 H 10/20/21 07:00 BP 136/64 10/20/21 06:00 Pulse Ox 90 L 10/20/21 07:00 Intake & Output 10/19/21 10/20/21 10/20/21 18:59 06:59 18:59 Intake Total 421.497 1521.994 261.018 Output Total 1900 654 50 Balance -903.590 888.994 211.018 Weight 94 kg 93 kg Intake: IV 276 276 23 0.9 NS 240 240 20 pressure bag 36 36 3 Intake, IV Titration 102.269 1440.994 228.018 Amount Clevidipine Butyrate 25 50 22.9 mg In Empty Bag 1 bag @ 1 MG/HR 2 mls/hr IV .Q24H [facility] Rx#:[id number] Norepinephrine 8 mg In 178.609 Sodium Chloride 0.9% 250 ml @ 0.05 MCG/KG/MIN 9. 143 mls/hr IV .Q24H [facility] Rx#:[id number] Rocuronium 400 mg In 140 140 131.061 Sodium Chloride 0.9% 100 ml @ 5 MCG/KG/MIN 9.954 mls/hr IV .Q14H4M [facility] Rx# :[id number] fentaNYL (PF) 2,500 mcg 356.107 In Sodium Chloride 0.9% 200 ml @ 0.5 MCG/KG/HR 4. 6 mls/hr IV .Q24H [facility] Rx# :[id number] propofoL 1,000 mg In 330.410 389.378 96.957 Empty Bag 1 bag @ Titrate IV .Q0M [facility] Rx#: [id number] Tube Feeding 110 120 10 Other 90 60 Output: Chest Tube Drainage 60 24 Chest Tube Left Lateral 60 20 Chest Chest Tube Right Lateral 4 Chest Urine 1840 630 50 Other: Voiding Method Indwelling Catheter Indwelling Catheter ABP, PAP, CO, CI - Last Documented Arterial Blood Pressure 116/43 - Exam No acute distress, sedated and paralyzed, with tracheostomy tube in place. The patient has evidence of subcutaneous emphysema in the neck and anterior chest area and this can be easily palpated on today's evaluation. Head exam was generally normal. There was no scleral icterus or corneal arcus. Mucous membranes were moist. Neck was supple and without jugular venous distension, thyromegaly, or carotid bruits. Carotids were easily palpable bilaterally. There was no adenopathy Lungs were clear to auscultation and percussion, and with normal diaphragmatic excursion. No wheezes or rales were noted. Cardiac exam revealed the PMI to be normally situated and sized. The rhythm was regular and no extrasystoles were noted during several minutes of auscultation. The first and second heart sounds were normal and physiologic splitting of the second heart sound was noted. There were no murmurs, rubs, clicks, or gallops. The patient has bilateral chest tubes. No evidence of any air leak. Output from the chest tubes are minimal at this point in time. Abdominal exam revealed normal bowel sounds. The abdomen was soft, non-tender, and without masses, organomegaly, or appreciable enlargement of the abdominal aorta. The patient has a PEG tube also in place Examination of the extremities revealed easily palpable radial, femoral and pedal pulses. There was no cyanosis, clubbing or edema. Examination of the skin revealed no evidence of significant rashes, suspicious appearing nevi or other concerning lesions. Neurologic examination cannot be assessed as the patient is currently sedated and paralyzed. - Labs CBC & Chem 7: 10/20/21 04:40 10/20/21 04:40 Labs: Abnormal Lab Results - Last 24 Hours (Table) 10/19/21 10/19/21 10/19/21 Range/Units 11:46 17:43 23:40 WBC (3.8-10.6) k/uL RBC (3.80-5.40) m/uL Hgb (11.4-16.0) gm/dL Hct (34.0-46.0) % RDW (11.5-15.5) % Neutrophils # (1.3-7.7) k/uL ABG pH (7.35-7.45) ABG pCO2 (35-45) mmHg ABG pO2 (83-108) mmHg ABG HCO3 (21-25) mmol/L ABG Total CO2 (19-24) mmol/L Potassium (3.5-5.1) mmol/L Carbon Dioxide (22-30) mmol/L BUN (7-17) mg/dL Creatinine (0.52-1.04) mg/dL POC Glucose (mg/dL) 171 H 193 H 129 H (75-99) mg/dL Calcium (8.4-10.2) mg/dL Total Protein (6.3-8.2) g/dL Albumin (3.5-5.0) g/dL 10/20/21 10/20/21 10/20/21 Range/Units 04:40 04:40 05:56 WBC 13.5 H (3.8-10.6) k/uL RBC 2.75 L (3.80-5.40) m/uL Hgb 8.1 L (11.4-16.0) gm/dL Hct 25.7 L (34.0-46.0) % RDW 18.7 H (11.5-15.5) % Neutrophils # 10.0 H (1.3-7.7) k/uL ABG pH (7.35-7.45) ABG pCO2 (35-45) mmHg ABG pO2 (83-108) mmHg ABG HCO3 (21-25) mmol/L ABG Total CO2 (19-24) mmol/L Potassium 3.1 L (3.5-5.1) mmol/L Carbon Dioxide 36 H (22-30) mmol/L BUN 23 H (7-17) mg/dL Creatinine 0.50 L (0.52-1.04) mg/dL POC Glucose (mg/dL) 105 H (75-99) mg/dL Calcium 8.3 L (8.4-10.2) mg/dL Total Protein 5.0 L (6.3-8.2) g/dL Albumin 2.6 L (3.5-5.0) g/dL 10/20/21 Range/Units 06:10 WBC (3.8-10.6) k/uL RBC (3.80-5.40) m/uL Hgb (11.4-16.0) gm/dL Hct (34.0-46.0) % RDW (11.5-15.5) % Neutrophils # (1.3-7.7) k/uL ABG pH 7.50 H (7.35-7.45) ABG pCO2 48 H (35-45) mmHg ABG pO2 65 L (83-108) mmHg ABG HCO3 38 H (21-25) mmol/L ABG Total CO2 39 H (19-24) mmol/L Potassium (3.5-5.1) mmol/L Carbon Dioxide (22-30) mmol/L BUN (7-17) mg/dL Creatinine (0.52-1.04) mg/dL POC Glucose (mg/dL) (75-99) mg/dL Calcium (8.4-10.2) mg/dL Total Protein (6.3-8.2) g/dL Albumin (3.5-5.0) g/dL Assessment and Plan Plan: 1 Acute hypoxemic respiratory failure/ARDS secondary to coronavirus associated pneumonia, status post intubation, and mechanical ventilation on 09/25/2021.No evidence of pulmonary embolism on CT angiogram. The patient continues to have diffuse bilateral pulmonary infiltrates consistent with COVID 19 related pneumonia. Patient subsequently developed bilateral pneumothoraces. The patient has bilateral chest tubes and the chest tubes were inserted on 10/11/2021. The patient remains intubated on a mechanical ventilator. The patient has a tracheostomy on 10/14/2021 . The chest x-ray from today shows diffuse bilateral pulmonary infiltrates consistent with ARDS. The patient remains on anticoagulation with Eliquis. The patient remains hemodynamically stable. No evidence of any pneumothorax and I made recommendations to wean down the PEEP down to 15 and remove the bilateral chest tubes. The follow-up chest x-ray is to be done after removal of the chest tube. 2 acute COVID 19 related pneumonia 3 Acute bilateral pneumothoraces, status post bilateral chest tube placements, on 10/11/2021. subcutaneous emphysema, as a complication of mechanical ventilation and coronavirus associated pneumonia. No evidence of any air leak on the Pleur-evac. Noted this 70 output from the chest tube. 4 acute left lower extremity femoral DVT currently on Eliquis. The patient is known to have a Primary hypercoagulable state in the form of Leiden factor deficiency/factor V deficiency. The patient has been maintained on warfarin on outpatient basis. The patient is currently on Eliquis 5 mg by mouth twice a day. 5 Prior history of DVT. 6 History of fibromyalgia. 7 History of arthritis. 8 History of degenerative disc disease. 9 Mild transaminitis secondary to coronavirus infection. Plan Continue ventilator support for now. Keep the same ventilator setting and drop the PEEP down to 15. Remove the chest tubes today Give the patient paralytic holiday and keep the combination of propofol and fentanyl. Keep chest tube in place for another 24 hours Continue Decadron Continue anticoagulation with Eliquis 5 mg by mouth twice a day Discontinue pressors enteral feeding for nutritional support, vital 1.2 @ 10cc/hr No major changes for today Prognosis remains poor. The patient is not having any major progress over the past several days. Obviously she carries a very poor prognosis. She is a case of post overnight he relates pneumonia/ARDS with prolonged respiratory failure. We'll continue to follow make further recommendations based on her progress. This is a critically care evaluation was done and more than 30 minutes. Time with Patient: Greater than 30
[2021-10-20] MEDS: PANTOPRAZOLE 40 MG/10 ML VIAL IV SCH (09:42)
[2021-10-20] MEDS: CHLORHEXIDINE GLUCONATE 15 ML CUP MUCOUS MEM SCH ×2 (09:42→20:14)
[2021-10-20] MEDS: ZINC SULFATE 220 MG CAP PO SCH (09:43)
[2021-10-20] MEDS: ASCORBIC ACID 500 MG TAB PO SCH ×2 (09:44→20:14)
[2021-10-20] MEDS: dexAMETHasone 2 MG TAB PO SCH (09:44)
[2021-10-20] MEDS: APIXABAN 5 MG TAB PO SCH ×2 (09:45→20:14)
[2021-10-20] MEDS: ARTIFICIAL TEARS-HYPROMELLOSE DROPS 15 ML BTL BOTH EYES SCH ×4 (09:46→22:33)
[2021-10-20] MEDS: FUROSEMIDE 10 MG/ML 4 ML VIAL IV SCH (09:47)
[2021-10-20] MEDS: CLEVIDIPINE BUTYRATE 25 MG in EMPTY BAG 1 BAG IV SCH ×2 (11:00→15:26)
[2021-10-20 12:40] LABS: Glucose,Whole Blood 142 mg/dL (75-99)
--- NOTE | 2021-10-20 14:53 | P.PN ---
Subjective Progress Note Date: 10/20/21 CHIEF COMPLAINT: Respiratory failure HISTORY OF PRESENT ILLNESS: Patient remains on mechanical ventilation. FiO2 60% and PEEP of 16. She is scheduled to have chest tubes removed today. She is tolerating her tube feeds. Her tube feeds are at goal a 10 mL per hour. She does have a small tracheostomy air leak. But is holding her tidal volumes. Afebrile. WBC 13 PHYSICAL EXAM: VITAL SIGNS: Reviewed. GENERAL: Well-developed in no acute distress. HEENT: Moist buccal mucosa. Head is atraumatic, normocephalic. Tracheostomy site clean dry and intact ABDOMEN: Soft. Nondistended. Nontender. PEG tube site clean dry and intact NEUROLOGIC: Intubated and sedated ASSESSMENT: 1. Acute hypoxic respiratory failure secondary to COVID-19 pneumonia requiring mechanical ventilation. Status post tracheostomy placement 2. Severe protein calorie nutrition status post PEG tube placement PLAN: -Continue ICU management -Continue supportive care Physician Basket Braider note has been reviewed by physician. Signing provider agrees with the documented findings, assessment, and plan of care. Objective - Vital Signs Vital signs: Vital Signs Temp 98.1 F 10/20/21 12:00 Pulse 82 10/20/21 13:00 Resp 27 H 10/20/21 13:00 BP 151/69 10/20/21 11:00 Pulse Ox 86 L 10/20/21 13:00 Intake & Output 10/19/21 10/20/21 10/20/21 18:59 06:59 18:59 Intake Total 258.839 6023.994 645.702 Output Total 5267 377 0070 Balance -903.590 888.994 -994.298 Weight 94 kg 93 kg Intake: IV 276 276 164 0.9 NS 240 240 140 pressure bag 36 36 24 Intake, IV Titration 280.277 7736.994 371.702 Amount Clevidipine Butyrate 25 50 22.9 1.834 mg In Empty Bag 1 bag @ 1 MG/HR 2 mls/hr IV .Q24H [facility] Rx#:[id number] Norepinephrine 8 mg In 178.609 Sodium Chloride 0.9% 250 ml @ 0.05 MCG/KG/MIN 9. 143 mls/hr IV .Q24H [facility] Rx#:[id number] Rocuronium 400 mg In 140 140 131.061 Sodium Chloride 0.9% 100 ml @ 5 MCG/KG/MIN 9.954 mls/hr IV .Q14H4M [facility] Rx# :[id number] fentaNYL (PF) 2,500 mcg 356.107 In Sodium Chloride 0.9% 200 ml @ 0.5 MCG/KG/HR 4. 6 mls/hr IV .Q24H [facility] Rx# :[id number] propofoL 1,000 mg In 330.410 389.378 238.807 Empty Bag 1 bag @ Titrate IV .Q0M [facility] Rx#: [id number] Tube Feeding 110 120 80 Other 90 60 30 Output: Chest Tube Drainage 60 24 Chest Tube Left Lateral 60 20 Chest Chest Tube Right Lateral 4 Chest Urine 1844 837 6269 Other: Voiding Method Indwelling Catheter Indwelling Catheter ABP, PAP, CO, CI - Last Documented Arterial Blood Pressure 143/48 - Labs CBC & Chem 7: 10/20/21 04:40 10/20/21 12:27 Labs: Abnormal Lab Results - Last 24 Hours (Table) 10/19/21 10/19/21 10/20/21 Range/Units 17:43 23:40 04:40 WBC 13.5 H (3.8-10.6) k/uL RBC 2.75 L (3.80-5.40) m/uL Hgb 8.1 L (11.4-16.0) gm/dL Hct 25.7 L (34.0-46.0) % RDW 18.7 H (11.5-15.5) % Neutrophils # 10.0 H (1.3-7.7) k/uL ABG pH (7.35-7.45) ABG pCO2 (35-45) mmHg ABG pO2 (83-108) mmHg ABG HCO3 (21-25) mmol/L ABG Total CO2 (19-24) mmol/L Potassium (3.5-5.1) mmol/L Carbon Dioxide (22-30) mmol/L BUN (7-17) mg/dL Creatinine (0.52-1.04) mg/dL POC Glucose (mg/dL) 193 H 129 H (75-99) mg/dL Calcium (8.4-10.2) mg/dL Total Protein (6.3-8.2) g/dL Albumin (3.5-5.0) g/dL 10/20/21 10/20/21 10/20/21 Range/Units 04:40 05:56 06:10 WBC (3.8-10.6) k/uL RBC (3.80-5.40) m/uL Hgb (11.4-16.0) gm/dL Hct (34.0-46.0) % RDW (11.5-15.5) % Neutrophils # (1.3-7.7) k/uL ABG pH 7.50 H (7.35-7.45) ABG pCO2 48 H (35-45) mmHg ABG pO2 65 L (83-108) mmHg ABG HCO3 38 H (21-25) mmol/L ABG Total CO2 39 H (19-24) mmol/L Potassium 3.1 L (3.5-5.1) mmol/L Carbon Dioxide 36 H (22-30) mmol/L BUN 23 H (7-17) mg/dL Creatinine 0.50 L (0.52-1.04) mg/dL POC Glucose (mg/dL) 105 H (75-99) mg/dL Calcium 8.3 L (8.4-10.2) mg/dL Total Protein 5.0 L (6.3-8.2) g/dL Albumin 2.6 L (3.5-5.0) g/dL 10/20/21 Range/Units 12:27 WBC (3.8-10.6) k/uL RBC (3.80-5.40) m/uL Hgb (11.4-16.0) gm/dL Hct (34.0-46.0) % RDW (11.5-15.5) % Neutrophils # (1.3-7.7) k/uL ABG pH (7.35-7.45) ABG pCO2 (35-45) mmHg ABG pO2 (83-108) mmHg ABG HCO3 (21-25) mmol/L ABG Total CO2 (19-24) mmol/L Potassium (3.5-5.1) mmol/L Carbon Dioxide (22-30) mmol/L BUN (7-17) mg/dL Creatinine (0.52-1.04) mg/dL POC Glucose (mg/dL) 142 H (75-99) mg/dL Calcium (8.4-10.2) mg/dL Total Protein (6.3-8.2) g/dL Albumin (3.5-5.0) g/dL
[2021-10-20] MEDS: LACTATED RINGERS 1,000 ML IV SCH (16:53)
[2021-10-20 17:30] LABS: Glucose,Whole Blood 230 mg/dL (75-99)
[2021-10-20] MEDS: fentaNYL (PF) 2,500 MCG in SODIUM CHLORIDE 0.9% 200 ML IV SCH (18:26)
[2021-10-20 18:34] LABS: Glucose,Whole Blood 201 mg/dL (75-99)
[2021-10-20 23:57] LABS: Glucose,Whole Blood 109 mg/dL (75-99)
[2021-10-21] MEDS: INSULIN ASPART (NovoLOG) 100 UNIT/ML VIAL SQ SCH ×4 (00:17→17:50)
--- NOTE | 2021-10-21 00:25 | P.PN ---
Subjective Progress Note Date: 10/20/21 This is a 61-year-old female who was recently admitted with acute COVID-19 pneumonia with acute COVID-19 bilateral interstitial pneumonia and also with transaminitis and being closely monitored. Patient remains in the ICU and currently intubated and sedated with an FiO2 of 70% and PEEP is 18. 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 Patient did have a venous Doppler study done recently which showed left leg DVT and patient is maintained on Eliquis will continue. Patient also continues on empiric antibiotics and awaiting for sputum culture finalized. Patient was started on IV cefepime and will continue. Patient is also continued on oral dexamethasone along with vitamin and zinc supplements and will continue. Patient with some mild volume overload and given a dose of IV Lasix push today. 09/29/2021 Patient is seen and evaluated this morning continues to be closely monitored in the ICU and continues to be on mechanical ventilation and sedated. FiO2 was increased at 80% with a PEEP of 18 and oxygen saturations between 87-91%. Patient developing subcutaneous emphysema in the neck and chest wall area and chest x-ray today shows bilateral multifocal and confluent opacification is redemonstrated consistent with COVID-19 infection with a new small left apical pneumothorax estimated under 5% with new pneumomediastinum and recurrent overlying subcutaneous emphysema noted. Patient is white blood count mildly elevated at 16.1 and is continued on oral dexamethasone along with oral eliquis for anticoagulation. Patient continues to be on IV cefepime and blood and sputum cultures are negative thus far. 09/30/2021 Patient is seen today continues to be closely monitored in the ICU with multiple medical consultations following. Patient continues to be mechanically intubated and sedated with continued subcutaneous emphysema noted. Chest xray shows a trace left apical pneumothorax that is minimally smaller 7mm versus 1cm previously, extensive bilateral subcutaneous emphysema persists and diffuse interstitial changes and bilateral patchy opacities persist with slight improvement in aeration in the lower lungs. Per nursing staff corbin was clogged with copious amounts of white discharge and will add diflucan and corbin catheter has been changed and draining adequately. Patient continues on IV cefepime. Patient tolerating tube feeds and will continue. 10/01/2021 Patient is seen and evaluated in follow up this morning and continues to be closely monitored. Multiple medical consultations following and patient c ontinues to be on mechanical vent and sedated. Patient continues on IV Cefepime and diflucan. Patient chest xray today shows stable extensive subcutaneous emphysema, no pneumothorax, and patchy bilateral lung infiltrates remain present. INflammatory markers trending down. 10/04/2021 Patient is seen in follow-up continues to be closely monitored in the ICU. Patient remains on mechanical vent with an FI02 of 65% and peep is 18. Weaning trials being attempted with pulmonary clinical assoc following closely. Patient continues with extensive subq emphysema noted on exam. 10/05/2021 Patient Is seen and evaluated this morning with continued attempts at weaning and continues on mechanical vent and intubated with pulmonary clinical assoc following closely. Patient remains on Eliquis which will be held as surgery Dr. Nelson was consulted for possible PEG and trach tube placement for unsuccessful attempts at weaning from ventilation and prolonged hospitalization on mechanical vent. Chest x-ray today shows recurrent tiny left apical pneumothorax estimated under 5% with worsening overlying subcutaneous emphysema and again pneumomediastinum redemonstrated with multifocal confluent opacification's redemonstrated consistent with COVID-19 infection and/or arts are redemonstrated with no significant change from one day previously. Patient continues on FiO2 of 65% and PEEP was weaned down to 14 today. IV cefepime discontinued. 10/06/2021 Patient is seen in follow-up this morning per nursing staff patient had multiple runs of ectopy an irregular heart rate and rhythms with PVCs and cardiology consulted. Patient was placed on lidocaine drip and was originally on eliquis is currently on hold for possible PEG and trach placement with general surgery following. Patient had difficulty maintaining oxygen saturations and FiO2 was increased to 100% and PEEP continues at 14. Multiple medical consultations following and patient continues on oral steroids along with vitamin and zinc supplements along with fluconazole. Patient being started on IV Lasix daily and recommend close monitoring of electrolytes and kidney functions. 10/07/2021 Patient is seen in follow-up this morning continues to be monitored closely in the ICU with multiple medical consultations following. Patient is currently on mechanical vent with an FiO2 of 80% and PEEP is 16. General surgery also following for possible PEG and trach placement and will need to discuss with surgery about when this will occur. Patient remains on fluconazole. She also continues on vitamin and zinc supplements along with oral dexamethasone, clevidipine, Nimbex, IV Lasix, fentanyl and propofol and is off norepinephrine. Chest x-ray shows stable bilateral lung infiltrates. 10/08/2021 Patient is seen this morning continues to be on mechanical vent with an FiO2 of 85% and PEEP of 16. Patient continues with extensive subcutaneous emphysema and plans are for possible PEG and trach placement although on hold until possibly next week once more stable. Patient continues on Cleviprex along with fentanyl and propofol and is receiving IV Lasix daily. Patient also continues on lidocaine drip which is currently on hold and cardiology is following closely. Anticoagulant was resumed for now again until more stable to undergo PEG and trach placement. Chest x-ray today shows persistent bilateral multifocal and confluent increased opacification is with persistent overlying subcutaneous emphysema noted in pneumomediastinum is again redemonstrated. 10/09/2021 Patient evaluated today in ICU mechanical ventilation with FiO2 of 80%. Chest x-ray this morning shows similar multifocal airspace opacities and stable support lines and tubes. Similar subcutaneous emphysema scattered throughout the visualized thorax. PEG and trach plan for next week once more stable. Current meds include Cleviprex, Nimbex, fentanyl, propofol. She is receiving IV fluconazole, as well as IV Lasix. Levophed and Lidocaine gtt;s are on hold. Positive bowel sounds. Current vitals afebrile, heart rate 71, blood pressure 135/60 and oxygen saturation is 93%. Respirations 30. Labs today, white count 17, hemoglobin 11.6, sodium 139, potassium 3.8, BUN 34, creatinine 0.91, CO2 33, calcium 8.7, ALT 54, albumin 2.8 with blood sugars in the 100s. 10/10/2021 Patient evaluated today in the ICU on the mechanical VENT with fio2 of 100%. Positive bowel movement today, Stage 2 pressure ulcer on coccyx per RN, optifoam ordered. Per RN they were unable to patient as she was desaturating. They're unable to wean Fi02 currently as she does desaturate with any time of movement. She was lying more on her right side during evaluation and pulse ox was dropping into high 80s she was being repositioned by nurses. Plan is to PEG/TRACH patient tomorrow. Last family update was 4 days ago. We will call and discuss case today. Patient is afebrile, heart rate 84, respirations 30, blood pressure 141/55, 92% oxygen saturation on 100% Fi02, which was increased today up from 70 Fi02%. Labs today show WBC of 15.6, hgbl 10.7, sodium 138, potassium 3.9, chloride 100, CO2 37, glucose 117, calcium 8.2. Chest xray today shows pneumonia, ARDS. 10/11/2021 Patient is seen and evaluated in follow-up this morning continues to be closely monitored in the ICU and patient is continued on FiO2 of 90% and PEEP is 16 with multiple medical consultations following. Chest x-ray today shows new left- sided pneumothorax estimated 10-20% with overlying subcutaneous emphysema and pneumomediastinum redemonstrated with bilateral multifocal and confluent op acification's redemonstrated consistent with COVID-19 infection and/or arts and no significant change from one day previous. Patient is status post left chest tube insertion with pulmonary clinical assoc. Cardiology following and patient is off lidocaine drip and maintaining sinus rhythm. Patient also continues on vitamin and zinc supplements along with oral dexamethasone and patient continues on IV Lasix 40 mg daily. Patient also continues off norepinephrine and is currently maintained on IV cefepime along with fluconazole. General surgery following as well and plan is for peg and trach placement in the am 10/12/2021 Patient is seen in the ICU this morning continues to be closely monitored by multiple medical consultations. Patient was scheduled for PEG and trach placement with general surgery Dr. Nelson today although canceled as patient became hypotensive requiring Levophed along with acute blood loss anemia and hemoglobin dropped to 6.5 this morning requiring 1 unit of PRBC. Patient continues with left chest tube with pneumothorax and chest x-ray today shows the jahaira is difficult to clearly identify on the present exam and the ET tube may be approximately 1 cm from the jahaira and there are bilateral chest tubes present with continued diffuse interstitial opacification is and more focal bibasilar opacification is with subcutaneous emphysema persists along the upper chest with slight improvement on the left. No appreciable pneumothorax noted. Patient having worsening right pleural effusion last night and received a right- sided chest tube with pulmonary clinical assoc. FiO2 is 90% and PEEP of 16. Again overall prognosis remains extremely poor and guarded. 10/13/2021 Patient is seen in follow-up this morning in the ICU with multiple medical consultations following. Lengthy discussion was had with pulmonary clinical assoc and family members and would like to continue with full CODE STATUS and plan is in place for PEG tube and tracheostomy placement tomorrow. Anticoagulant on hold and Dr. Nelson plans for surgery tomorrow. Patient continues on oral dexamethasone along with IV cefepime, vitamin and zinc supplements. Patient also continues on Cleviprex and Nimbex. Patient also continues on fentanyl and propofol and will continue. Chest x-ray today shows stable portable chest with bilateral chest tubes without sizable pneumothorax identified and continued subcutaneous air persists with persistent interstitial changes bilaterally with airspace disease in the bilateral lung bases that are unchanged. FiO2 is 60% and PEEP of 16. 10/14/2021 Patient is seen and evaluated in the ICU being closely monitored with multiple medical consultations following. at the bedside today and had detailed discussion with overall prognosis. Plan is to proceed with PEG tube and tracheostomy placement with surgery Dr. Nelson today and anticoagulant continues to be on hold for this procedure. Patient continues on mechanical ventilation with an FiO2 of 70% and PEEP of 16. Chest x-ray today shows improving infiltrate with bibasilar residual and bilateral chest tubes remain present with no pneumothorax evident on either side and again subcutaneous emphysema is noted. 10/15/2021 Patient is seen in the ICU being closely monitored. Patient is status post PEG and trach placement yesterday. Chest x-ray today shows bilateral patchy lung infiltrates greater at the right base with diffuse increased lung markings and bilateral chest tubes remain present and subcutaneous emphysema on the right is diminished. Patient continues with an FI02 of 60 and peep is 16. To resume tube feeds per surgery. Patient continues on norepinephrine and sedation. Patient is receiving IV lasix daily. 10/16/2021 Patient is currently in the MICU and remains on ventilator. Status post tracheostomy and PEG tube placement on 10/14/2021. Patient is sedated and paralyzed. Also on Cleviprex. Chest x-ray showed no acute cardiopulmonary disease with no interval changes. Laboratory data showed WBC 16.9 hemoglobin 8.9 and platelets 278 BUN 19 and creatinine 0.5 and calcium 8.1 patient is being continued on dexamethasone 6 mg daily, Lasix 40 mg IV daily and multivitamins and anticoagulation with Eliquis. Pulmonary and general surgery is on board. 10/17/2021 Patient is in the MICU. Remains on the current ventilator via tracheostomy. Status post tracheostomy and PEG tube placement on 10/14/2021. Sedated and paralyzed and also on fentanyl drip. Currently on assist control with tidal volume of 420, FiO2 80% and PEEP of 16. Respiratory of 30. Chest x-ray showed no interval change in acute cardiopulmonary disease Laboratory data showed WBC 15.8 hemoglobin 8.2 and platelets 271 Sodium 136 potassium 3.1 chloride 100 bicarb is 32 BUN 21 creatinine 0.48 and albumin 2.3 Patient is being continued on Lasix IV, dexamethasone and anticoagulation with Eliquis. 10/18/2021 Patient is seen in follow-up and continues in the ICU with multiple medical consultations following. Patient continues on mechanical vent with an FI02 of 70% and peep is 16. Chest xray shows overall stable exam with interstitial changes and bilateral patchy infiltrates with right greater than left and greater at the bases with bilateral chest tubes noted. no appreciable pneumothorax. Patient continues on propofol and fentanyl along with cleviprex and rocuronium. Eliquis has been resumed. Potassium is 3.3 and will be replaced per protocol. Patient also continues to receive IV lasix daily. 10/19/2021 Patient is seen this morning and continues to be in the ICU with multiple medical consultations following. Patient continues with bilateral chest tubes and remains on mechanical ventilation with an FiO2 of 65% and PEEP is 16. Chest x-ray today shows Bilateral multifocal and confluent opacification greatest in the lower lungs consistent with COVID-19 infection and/or ARDS all redemon strated with no significant change from one day earlier and continued bilateral chest tubes without pneumothorax redemonstrated. 10/20/2021 Patient continues to be in the ICU under close critical monitoring with multiple medical consultations following. Patient continues with bilateral chest tubes although per nursing staff may possibly discontinued today. Chest x-ray today shows stable portable chest with no change in scattered mixed interstitial and alveolar infiltrates. Patient remains on mechanical ventilation via tracheostomy with an FiO2 of 55% and PEEP is 15. Patient continues on Cleviprex along with rocuronium and sedation. Review of systems: Unable to obtain as patient is mechanically intubated and sedated Labs: WBC is 13.5, hemoglobin is 8.1, platelets are 295, sodium is 140, potassium is 3.1 and replaced and currently 3.5, BUN is 23, creatinine is 0.50, calcium is 8. 3 Active Medications Apixaban (Apixaban 5 Mg Tab) 5 mg PO BID [facility]; Protocol Last Admin: 10/20/21 09:45 Dose: 5 mg Documented by: Artificial Tears (Artificial Tears-Hypromellose Drops 15 Ml Btl) 2 drops BOTH EYES QID [facility] Last Admin: 10/20/21 09:46 Dose: 2 drops Documented by: Ascorbic Acid (Ascorbic Acid 500 Mg Tab) 500 mg PO BID [facility] Last Admin: 10/20/21 09:44 Dose: 500 mg Documented by: Chlorhexidine Gluconate (Chlorhexidine Gluconate 15 Ml Cup) 15 ml MUCOUS MEM BID [facility] Last Admin: 10/20/21 09:42 Dose: 15 ml Documented by: Dexamethasone (Dexamethasone 2 Mg Tab) 6 mg PO DAILY [facility] Last Admin: 10/20/21 09:44 Dose: 6 mg Documented by: Docusate Sodium (Docusate Oral Soln 100 Mg/10 Ml Cup) 100 mg PO DAILY PRN PRN Reason: Constipation Last Admin: 10/18/21 15:53 Dose: 100 mg Documented by: Ergocalciferol (Ergocalciferol 1,250 Mcg (50,000 Iu) Capsule) 1,250 mcg PO [facility] Last Admin: 10/17/21 08:14 Dose: 1,250 mcg Documented by: Furosemide (Furosemide 10 Mg/Ml 4 Ml Vial) 40 mg IV DAILY [facility] Last Admin: 10/20/21 09:47 Dose: 40 mg Documented by: Propofol 1,000 mg/ IV Solution 100 mls @ 0 mls/hr IV .Q0M [facility]; Protocol Last Admin: 10/20/21 13:20 Dose: 50 mcg/kg/min, 27.9 mls/hr Documented by: Sodium Chloride (Saline 0.9%) 1,000 mls @ 20 mls/hr IV .Q24H [facility] Last Admin: 10/20/21 02:29 Dose: Not Given Documented by: Fentanyl Citrate 2,500 mcg/ (Sodium Chloride) 250 mls @ 4.6 mls/hr IV .Q24H [facility]; Protocol Last Titration: 10/20/21 06:00 Dose: 1.5 mcg/kg/hr, 13.8 mls/hr Documented by: Clevidipine 25 mg/ IV Solution 50 mls @ 2 mls/hr IV .Q24H [facility]; Protocol Last Titration: 10/20/21 11:30 Dose: 1 mg/hr, 2 mls/hr Documented by: Lactated Ringer's (Lactated Ringers) 1,000 mls @ 20 mls/hr IV .Q24H [facility] Last Admin: 10/19/21 14:53 Dose: 20 mls/hr Documented by: Norepinephrine Bitartrate 8 mg (/ Sodium Chloride) 258 mls @ 9.143 mls/hr IV .Q24H [facility]; Protocol Last Admin: 10/20/21 13:19 Dose: Not Given Documented by: Rocuronium Allen 400 mg/ (Sodium Chloride) 140 mls @ 9.954 mls/hr IV .Q14H4M [facility]; Protocol Last Admin: 10/20/21 08:06 Dose: 10 mcg/kg/min, 19.908 mls/hr Documented by: Insulin Aspart (Insulin Aspart (Novolog) 100 Unit/Ml Vial) 0 unit SQ Q6HR [facility]; Protocol Last Admin: 10/20/21 13:19 Dose: 1 unit Documented by: Miscellaneous Information (Pneumonia Protocol Utilized 1 Each Misc) 1 each PO ONCE PRN PRN Reason: Per Protocol Miscellaneous Information (Potassium Replacement Protocol 1 Each Misc) 1 each MISCELLANE DAILY PRN; Protocol PRN Reason: Per Protocol Naloxone HCl (Naloxone 0.4 Mg/Ml 1 Ml Vial) 0.2 mg IV Q2M PRN PRN Reason: Opioid Reversal Pantoprazole Sodium (Pantoprazole 40 Mg/10 Ml Vial) 40 mg IV DAILY [facility] Last Admin: 10/20/21 09:42 Dose: 40 mg Documented by: Potassium Bicarbonate (Potassium Bicarbonate/Cit Ac 20 Meq Tablet.Eff) 20 meq NG-TUBE Q1HR [facility]; Protocol Stop: 10/20/21 15:01 Zinc Sulfate (Zinc Sulfate 220 Mg Cap) 220 mg PO DAILY [facility] Last Admin: 10/20/21 09:43 Dose: 220 mg Documented by: Physical Exam: Gen: This is a 61-year-old female currently sedated and intubated. mechanical ventilation Fio2 55% with a PEEP of 15 HEENT: Head is atraumatic, normocephalic. Pupils equal, round. Sclerae is anicteric. tracheostomy noted NECK: Supple. No JVD. No lymphadenopathy. No thyromegaly. tracheostomy noted LUNGS: Diminished breath sounds bilaterally with coarse rhonchi and crackles noted. No intercostal retractions. Bilateral chest tubes noted HEART: S1, S2 are muffled ABDOMEN: Soft. Bowel sounds are present. No masses. No tenderness. peg tube noted. EXTREMITIES: No pedal edema. No calf tenderness. generalized edema noted NEUROLOGICAL: Patient is currently intubated and sedated Assessment: Acute COVID-19 infection with acute COVID-19 bilateral interstitial pneumonia with hypoxic hypercarbic respiratory failure on mechanical vent status post trach and peg tube placement on 10/14/2021 Subcutaneous emphysema of the neck and chest, improved Left pneumothorax status post chest tube placement Right-sided pleural effusion with new small right pneumothorax status post chest tube placement Acute blood loss anemia secondary to bilateral chest tube placements with a drop in hemoglobin to 6.5 and was given 1 unit of PRBC, possible hypovolemic shock requiring pressor support, currently hypertensive and off pressors, continues on cleviprex Non-sustained ventricular tachycardia, currently sinus Acute left leg deep vein thrombosis Acute respiratory acidosis Primary hypercoagulable state and factor V deficiency Mild transaminitis, possibly secondary to COVID-19 History of degenerative joint disease History of fibromyalgia Elevated inflammatory markers of COVID-19 Obesity with a body mass index of 38.1 Full code Plan: Recommend to continue with current medications and follow along closely with multiple medical consultations. Prognosis remains extremely poor and guarded with multiple complex medical issues noted. Patient continues on mechanical ventilation via tracheostomy and FiO2 55% with PEEP of 15. Recommend to continue with current medications. Patient continues on cleviprex along with propofol and fentanyl, and rocuronium. RN attempting to wean rocuronium. Plans are for possible chest tube removal later today. Recommend repeat labs and continued close monitoring. Again due to multiple complex medical issues overall prognosis is extremely poor and quite guarded. Objective - Vital Signs Vital signs: Vital Signs Temp 98.5 F 10/19/21 20:00 Pulse 68 10/20/21 08:00 Resp 26 H 10/20/21 08:00 BP 136/64 10/20/21 06:00 Pulse Ox 96 10/20/21 08:00 Intake & Output 10/19/21 10/20/21 10/20/21 18:59 06:59 18:59 Intake Total 807.588 1315.994 261.018 Output Total 1900 654 50 Balance -903.590 888.994 211.018 Weight 94 kg 93 kg Intake: IV 276 276 23 0.9 NS 240 240 20 pressure bag 36 36 3 Intake, IV Titration 666.871 8076.994 228.018 Amount Clevidipine Butyrate 25 50 22.9 mg In Empty Bag 1 bag @ 1 MG/HR 2 mls/hr IV .Q24H [facility] Rx#:[id number] Norepinephrine 8 mg In 178.609 Sodium Chloride 0.9% 250 ml @ 0.05 MCG/KG/MIN 9. 143 mls/hr IV .Q24H [facility] Rx#:[id number] Rocuronium 400 mg In 140 140 131.061 Sodium Chloride 0.9% 100 ml @ 5 MCG/KG/MIN 9.954 mls/hr IV .Q14H4M [facility] Rx# :[id number] fentaNYL (PF) 2,500 mcg 356.107 In Sodium Chloride 0.9% 200 ml @ 0.5 MCG/KG/HR 4. 6 mls/hr IV .Q24H [facility] Rx# :[id number] propofoL 1,000 mg In 330.410 389.378 96.957 Empty Bag 1 bag @ Titrate IV .Q0M [facility] Rx#: [id number] Tube Feeding 110 120 10 Other 90 60 Output: Chest Tube Drainage 60 24 Chest Tube Left Lateral 60 20 Chest Chest Tube Right Lateral 4 Chest Urine 1840 630 50 Other: Voiding Method Indwelling Catheter Indwelling Catheter ABP, PAP, CO, CI - Last Documented Arterial Blood Pressure 140/48 - Labs CBC & Chem 7: 10/20/21 04:40 10/20/21 12:27 Labs: Abnormal Lab Results - Last 24 Hours (Table) 10/19/21 10/19/21 10/19/21 Range/Units 11:46 17:43 23:40 WBC (3.8-10.6) k/uL RBC (3.80-5.40) m/uL Hgb (11.4-16.0) gm/dL Hct (34.0-46.0) % RDW (11.5-15.5) % Neutrophils # (1.3-7.7) k/uL ABG pH (7.35-7.45) ABG pCO2 (35-45) mmHg ABG pO2 (83-108) mmHg ABG HCO3 (21-25) mmol/L ABG Total CO2 (19-24) mmol/L Potassium (3.5-5.1) mmol/L Carbon Dioxide (22-30) mmol/L BUN (7-17) mg/dL Creatinine (0.52-1.04) mg/dL POC Glucose (mg/dL) 171 H 193 H 129 H (75-99) mg/dL Calcium (8.4-10.2) mg/dL Total Protein (6.3-8.2) g/dL Albumin (3.5-5.0) g/dL 10/20/21 10/20/21 10/20/21 Range/Units 04:40 04:40 05:56 WBC 13.5 H (3.8-10.6) k/uL RBC 2.75 L (3.80-5.40) m/uL Hgb 8.1 L (11.4-16.0) gm/dL Hct 25.7 L (34.0-46.0) % RDW 18.7 H (11.5-15.5) % Neutrophils # 10.0 H (1.3-7.7) k/uL ABG pH (7.35-7.45) ABG pCO2 (35-45) mmHg ABG pO2 (83-108) mmHg ABG HCO3 (21-25) mmol/L ABG Total CO2 (19-24) mmol/L Potassium 3.1 L (3.5-5.1) mmol/L Carbon Dioxide 36 H (22-30) mmol/L BUN 23 H (7-17) mg/dL Creatinine 0.50 L (0.52-1.04) mg/dL POC Glucose (mg/dL) 105 H (75-99) mg/dL Calcium 8.3 L (8.4-10.2) mg/dL Total Protein 5.0 L (6.3-8.2) g/dL Albumin 2.6 L (3.5-5.0) g/dL 10/20/21 Range/Units 06:10 WBC (3.8-10.6) k/uL RBC (3.80-5.40) m/uL Hgb (11.4-16.0) gm/dL Hct (34.0-46.0) % RDW (11.5-15.5) % Neutrophils # (1.3-7.7) k/uL ABG pH 7.50 H (7.35-7.45) ABG pCO2 48 H (35-45) mmHg ABG pO2 65 L (83-108) mmHg ABG HCO3 38 H (21-25) mmol/L ABG Total CO2 39 H (19-24) mmol/L Potassium (3.5-5.1) mmol/L Carbon Dioxide (22-30) mmol/L BUN (7-17) mg/dL Creatinine (0.52-1.04) mg/dL POC Glucose (mg/dL) (75-99) mg/dL Calcium (8.4-10.2) mg/dL Total Protein (6.3-8.2) g/dL Albumin (3.5-5.0) g/dL
[2021-10-21] MEDS: SODIUM CHLORIDE 0.9% 1,000 ML IV SCH (01:18)
[2021-10-21] MEDS: CLEVIDIPINE BUTYRATE 25 MG in EMPTY BAG 1 BAG IV SCH ×3 (02:44→23:45)
[2021-10-21] MEDS: ROCURONIUM 400 MG in SODIUM CHLORIDE 0.9% 100 ML IV SCH (05:02)
[2021-10-21 05:08] LABS: ABG HCO3 38 mmol/L (21-25); ABG Oxygen Saturation 90.3 % (94-97); ABG PCO2 53 mmHg (35-45); ABG PH 7.46 (7.35-7.45); ABG TCO2 40 mmol/L (19-24); Allen Test Performed? Yes
[2021-10-21 05:10] LABS: ABG PO2 58 mmHg (83-108)
[2021-10-21 05:43] LABS: Anisocytosis Slight; Basophils % (A) 0 %; Eosinophils # (A) 0.2 k/uL (0-0.7); Eosinophils % (A) 1 %; HCT 27.7 % (34.0-46.0); HGB 8.4 gm/dL (11.4-16.0); Hypochromasia Marked; Lymphocytes # (A) 2.3 k/uL (1.0-4.8); Lymphocytes % (A) 16 %; MCH 28.4 pg (25.0-35.0); MCHC 30.3 g/dL (31.0-37.0); MCV 93.6 fL (80.0-100.0); Macrocytosis Slight; Mean Platelet Volume 8.3; Monocytes # (A) 0.9 k/uL (0-1.0); Monocytes % (A) 6 %; Neutrophils # (A) 10.7 k/uL (1.3-7.7); Neutrophils % (A) 75 %; Platelet Count 360 k/uL (150-450); Poikilocytosis Moderate; RBC 2.96 m/uL (3.80-5.40); RDW 18.8 % (11.5-15.5); WBC 14.4 k/uL (3.8-10.6)
[2021-10-21 05:47] LABS: Glucose,Whole Blood 116 mg/dL (75-99)
[2021-10-21 06:29] LABS: African American GFR (CKD) >90 (>60 ml/min/1.73 sqM); Anion Gap 3 mmol/L; Blood Urea Nitrogen 22 mg/dL (7-17); Calcium 8.3 mg/dL (8.4-10.2); Carbon Dioxide 36 mmol/L (22-30); Chloride 102 mmol/L (98-107); Glucose 105 mg/dL (74-99); Non-African American GFR(CKD) >90 (>60 ml/min/1.73 sqM); Potassium 3.8 mmol/L (3.5-5.1); Sodium 141 mmol/L (137-145)
[2021-10-21] MEDS ORDERED: POTASSIUM BICARBONATE/CIT AC 20 MEQ TABLET.EFF NG-TUBE SCH (08:00)
[2021-10-21] MEDS: PANTOPRAZOLE 40 MG/10 ML VIAL IV SCH (08:02)
[2021-10-21] MEDS: FUROSEMIDE 10 MG/ML 4 ML VIAL IV SCH (08:02)
--- NOTE | 2021-10-21 08:33 | XR ---
EXAMINATION TYPE: XR chest 1V portable DATE OF EXAM: 10/21/2021 Comparison: 10/20/2021 Clinical History: 61-year-old female covid Findings: Tracheostomy cannula. Partially visualized ACDF hardware. The lateral chest tubes. No appreciable pne umothorax. Right PICC tip at the lower SVC. Mild interstitial density. Mild groundglass in the lower lungs similar to slightly improved. Impression: Interstitial changes and basilar groundglass, similar to slightly improved. Bilateral chest tubes wit hout appreciable pneumothorax.
[2021-10-21] MEDS: NOREPINEPHRINE 8 MG in SODIUM CHLORIDE 0.9% 250 ML IV SCH (08:34)
[2021-10-21] MEDS: CHLORHEXIDINE GLUCONATE 15 ML CUP MUCOUS MEM SCH ×2 (08:36→20:00)
[2021-10-21] MEDS: ARTIFICIAL TEARS-HYPROMELLOSE DROPS 15 ML BTL BOTH EYES SCH ×4 (08:36→23:11)
[2021-10-21] MEDS: APIXABAN 5 MG TAB PO SCH ×2 (08:38→20:00)
[2021-10-21] MEDS: dexAMETHasone 2 MG TAB PO SCH (08:38)
[2021-10-21] MEDS: ASCORBIC ACID 500 MG TAB PO SCH ×2 (08:38→20:00)
[2021-10-21] MEDS: ZINC SULFATE 220 MG CAP PO SCH (08:38)
--- NOTE | 2021-10-21 09:21 | P.PN ---
Subjective Progress Note Date: 10/21/21 61-year-old female who is in the MICU with COVID-19 related pneumonia. The patient stated that she was having symptoms since September 10. The symptoms included shortness of breath, cough, fatigue, muscle aches, and generally just not feeling well. The patient is non vaccinated. She tested positive for coronavirus on September 23. The patient takes Coumadin chronically for her factor V or Leiden factor deficiency. Initially, on room air, her saturations were in the 70s, and on a nonrebreather, only got up into the mid 80s. In addition to the primary hypercoagulable state, she has a history of DVT, fibromyalgia, pneumonia, arthritis, and degenerative disc disease. She is a lifelong nonsmoker. Chest x-ray reveals diffuse bilateral infiltrates. CT angiogram was negative for pulmonary embolism, but did show diffuse infiltrates consistent with coronavirus pneumonia. Subsequently, the patient was placed on a BiPAP for respiratory support. Following that, on 09/25/2021 required intubation and mechanical ventilation. On today's evaluation of 10/18/2021, the patient remains on a mechanical ventilator. The patient remains sedated and paralyzed. She had a complicated COVID 19 pneumonia course here in the intensive care unit. The patient developed bilateral pneumothoraces and currently she still has bilateral chest tubes in place. This morning, the patient remains sedated and the patient is currently on propofol at 50 mcg/kg per minute, fentanyl at 2 mcg/kg per minute and the patient is paralyzed with rocuronium running at 10 g. The patient is adequately sedated and paralyzed for now. This morning, she is on a mechanical ventilator on assist control mode at the rate of 30, tidal volume of 420, FiO2 of 70% with a PEEP of 16. Peak airway pressure is 45. The static air pressure is 42. The chest x-ray from today showing no evidence of any pneumothorax. There is still diffuse bilateral pulmonary infiltrates. There are bilateral chest tubes. Chest tubes are in good location. No evidence of any pneumothorax. The blood gases from this morning shows a pH of 7.47 with a pCO2 of 49 and pO2 of 49 and this was done and FiO2 of 60% and based on his affect was brought up to 70%. Meanwhile, the patient is on IV fluids. She is on normal saline at the rate of 20 mL an hour. Norepinephrine is being is less for hemodynamic support and it is running at 0.08 mcg/kg/m.. The patient remains on Decadron 6 mg by mouth on a daily basis and the patient is also on antic oagulation with Eliquis 5 mg by mouth twice a day. All of the cultures of been negative. The white cell count from this morning is at 19.7 with a hemoglobin of 8.3 and platelet count of 321. Sodium is at 139 with a potassium level of 3.3 and currently is 102 with a bicarb is of 36 creatinine is at 23 with a creatinine of 0.5. LFTs are all within normal limits. Noted the patient underwent a bronchoscopy on 10/16/2020. This was done strictly for airway inspection. No cultures were obtained. The patient is currently on no antibiotics. Inflammatory markers showed a pro-calcitonin level of 0.14 from 10/05/2020 and the patient also has LDH of 531 from 10/01/2021. The patient has a PICC line in her right upper extremity. There is a double-lumen PICC line. 10/19/2021, the patient is being seen for a follow-up. The patient remains essentially the same as yesterday. No major interval change management lead the past 24 hours. She remains on propofol running at 60 mg/kg per minute and fentanyl is running at 2 mcg/kg/h and the patient is also paralyzed utilizing rocuronium running at 10 g. The patient is well sedated and paralyzed for now. She is afebrile and she is hemodynamically stable. She remains on assist control mode with a tidal volume of 420, rate of 30, FiO2 of 65% with a PEEP of 16. Peak pressures remains elevated at 46. Static pressures around 43. Chest x-ray shows no interval change compared to yesterday. No evidence of any pneumothorax. There is diffuse bilateral pulmonary infiltrates. There is evidence of bilateral chest tubes. No evidence of any air leaks through the chest tubes. Output from the chest tube is minimal at this point in time and is essentially serosanguineous. Blood gases from today showed a pH of 7.55 with a pCO2 of 41 and pO2 of 66. Patient is having significant fluctuation in her blood pressure. Yesterday for example she was on low-dose pressors. Subsequently, her blood pressure went up as high as systolic over the 180 range. The pressors were discontinued and the patient was started on Cleviprex drip for blood pressure control. Currently she is off all these drips. Her blood pressure is slightly hypertensive on mornings evaluation. Her white cell count is at 14.8 with a hemoglobin of 7.6 and a platelet count of 342. Sodium is at 139, BUN is at 24 with a creatinine of 0.5 and a blood sugar is at 100. LFTs are normal. Cultures are all negative. She has a double-lumen PICC line in her right upper extremity. Inflammatory markers have been essentially dropping and the patient is not receiving any antibiotic coverage for now. She remains on Decadron at a dose of 6 mg by mouth daily basis and she remains also on Eliquis 5 mg by mouth twice a day. She is receiving enteral feeding for nutritional support. She is currently on vital AF at the rate of 10 mL an hour. IV fluids are currently at KVO. She is receiving daily Lasix 40 mg IV every 24 hours. Fluid balance is negative approximately 700 mL over the past 24 hours. On 2021, the patient is being seen for a follow-up. This morning, she is on propofol running at the rate of 50 mcg/kg per minute and the patient is also on fentanyl running at 1.5 mcg/kg/h. The patient is still on rocuronium for paralysis. Chest x-ray shows adequate expansion of both lungs. No evidence of any pneumothorax. No evidence of any subcutaneous emphysema. Chest tubes are in place. ET tube is in a good location. No evidence of any air leaks of the chest tube and I think it's reasonable to remove both of the chest tubes out today. Meanwhile, the patient remains on a mechanical ventilator. She is on assist-control at the rate of 26 and a tidal volume of 400 and FiO2 of 60% with a PEEP of 16. Peak airway pressures around 38. Static pressures 36. The pH is at 7.49 with a pCO2 of 48 and pO2 of 65. No respiratory secretions for now. She is afebrile. She is hemodynamically stable. She is on no pressors. She is still on Decadron 6 mg on a daily basis. Anticoagulations with Eliquis 5 mg by mouth twice a day The patient also had a DVT of the left lower extremity and previous history of hypercoagulability. Enterofeeding is still in the form of vital AF at the rate of 10 mL an hour. The patient is also receiving daily Lasix 40 mg IV every 24 hours. She is off Cleviprex for now. The blood work from today shows a white cell count of 15.5 with a hemoglobin of 8.4 and the plated count of 295. The sodium is 140 with a potassium level of 3.1, serum bicarbonate of 36 with a BUN of 23 and a creatinine of 0.5. LFTs are all within normal limits. 10/21 2021, seeing the patient for a follow-up. I had a lengthy discussion with the yesterday. Unfortunately, prognosis been limited on this patient. She remains on a propofol and fentanyl combination. Propofol is running at 60 mcg/kg per minute and fentanyl is running at 1.5 mcg/kg per hour. The patient continues to be paralyzed with rocuronium. We managed to pull of the chest tubes today. The patient did not have any pneumothorax and today's chest x-ray. No evidence of any air leak for the past several days. Without it's reasonable to follow the chest tubes on both sides. She is on assist control mode. Overnight, the patient she did have some limited desaturation. Blood gas showed a pH of 7.46 with a pCO2 of 53 and pO2 of 58 and this was on FiO2 of 70% with a PEEP of 15. Based on that, the fight was brought up to 80% and currently her pulse ox is 99-100%. Based on that, drop the FiO2 down to 70%. Adenopathy down to 14. Her current tidal volumes of 400 with a rate of 26. Chest x-ray still showing unchanged bilateral pulmonary infiltrates. Hemoglobin is at 8.4. White cell count is at 14.4. Electrolytes are normal. Creatinine is at 0.5. Blood sugars of 116. No recent inflammatory markers checked. She remains on Decadron and current dose is at 6 mg by mouth daily. She remains also on anticoagulation with Eliquis 5 mg by mouth twice a day as the patient has DVT and history of hypercoagulable state. Hemodynamically stable. We are going to give this patient and paralytic holiday. She is receiving enteral feeding for nutritional support. She is currently on vital high protein at the rate of 10 mL an hour. At the same time, the patient has a tracheostomy tube which is a Shiley #8. Golden catheter is in place. She has a PICC line in the right upper extremity. He is receiving Lasix 40 mg IV on a daily basis and the patient is in a negative fluid balance of 1.4 L. Objective - Vital Signs Vital signs: Vital Signs Temp 98.1 F 10/21/21 04:00 Pulse 84 10/21/21 09:00 Resp 27 H 10/21/21 09:00 BP 116/70 10/21/21 08:00 Pulse Ox 99 10/21/21 09:00 Intake & Output 10/20/21 10/21/21 10/21/21 18:59 06:59 18:59 Intake Total 1241.052 683.000 206.96 Output Total 2540 795 145 Balance -1298.948 -112 61.96 Weight 92 kg Intake: IV 229 143 26 0.9 NS 190 110 20 pressure bag 39 33 6 Intake, IV Titration 822.052 430.000 130.96 Amount Clevidipine Butyrate 25 9.701 50.000 50 mg In Empty Bag 1 bag @ 1 MG/HR 2 mls/hr IV .Q24H [facility]RA[facility] Rx#:[id number] Rocuronium 400 mg In 271.061 280 Sodium Chloride 0.9% 100 ml @ 5 MCG/KG/MIN 9.954 mls/hr IV .Q14H4M [facility] Rx# :[id number] fentaNYL (PF) 2,500 mcg 143.893 In Sodium Chloride 0.9% 200 ml @ 0.5 MCG/KG/HR 4. 6 mls/hr IV .Q24H [facility] Rx# :[id number] propofoL 1,000 mg In 397.397 100 80.96 Empty Bag 1 bag @ Titrate IV .Q0M [facility] Rx#: [id number] Tube Feeding 130 110 20 Other 60 30 Output: Chest Tube Drainage 10 Chest Tube Left Lateral 10 Chest Urine 2540 785 145 Other: Voiding Method Indwelling Catheter Indwelling Catheter ABP, PAP, CO, CI - Last Documented Arterial Blood Pressure 126/57 - Exam No acute distress, sedated and paralyzed, with tracheostomy tube in place. The patient has a #6 Shiley tracheostomy tube in place. No evidence of any subcutaneous emphysema. Head exam was generally normal. There was no scleral icterus or corneal arcus. Mucous membranes were moist. Neck was supple and without jugular venous distension, thyromegaly, or carotid bruits. Carotids were easily palpable bilaterally. There was no adenopathy Lungs were clear to auscultation and percussion, and with normal diaphragmatic excursion. No wheezes or rales were noted. The chest tubes have been removed. Cardiac exam revealed the PMI to be normally situated and sized. The rhythm was regular and no extrasystoles were noted during several minutes of auscultation. The first and second heart sounds were normal and physiologic splitting of the second heart sound was noted. There were no murmurs, rubs, clicks, or gallops. Abdominal exam revealed normal bowel sounds. The abdomen was soft, non-tender, and without masses, organomegaly, or appreciable enlargement of the abdominal aorta. The patient has a PEG tube also in place Examination of the extremities revealed easily palpable radial, femoral and pedal pulses. There was no cyanosis, clubbing or edema. Examination of the skin revealed no evidence of significant rashes, suspicious appearing nevi or other concerning lesions. Neurologic examination cannot be assessed as the patient is currently sedated and paralyzed. - Labs CBC & Chem 7: 10/21/21 05:15 10/21/21 05:15 Labs: Abnormal Lab Results - Last 24 Hours (Table) 10/20/21 10/20/21 10/20/21 Range/Units 12:27 17:30 18:32 WBC (3.8-10.6) k/uL RBC (3.80-5.40) m/uL Hgb (11.4-16.0) gm/dL Hct (34.0-46.0) % MCHC (31.0-37.0) g/dL RDW (11.5-15.5) % Neutrophils # (1.3-7.7) k/uL ABG pH (7.35-7.45) ABG pCO2 (35-45) mmHg ABG pO2 (83-108) mmHg ABG HCO3 (21-25) mmol/L ABG Total CO2 (19-24) mmol/L ABG O2 Saturation (94-97) % Carbon Dioxide (22-30) mmol/L BUN (7-17) mg/dL Glucose (74-99) mg/dL POC Glucose (mg/dL) 142 H 230 H 201 H (75-99) mg/dL Calcium (8.4-10.2) mg/dL 10/20/21 10/21/21 10/21/21 Range/Units 23:56 05:04 05:15 WBC 14.4 H (3.8-10.6) k/uL RBC 2.96 L (3.80-5.40) m/uL Hgb 8.4 L (11.4-16.0) gm/dL Hct 27.7 L (34.0-46.0) % MCHC 30.3 L (31.0-37.0) g/dL RDW 18.8 H (11.5-15.5) % Neutrophils # 10.7 H (1.3-7.7) k/uL ABG pH 7.46 H (7.35-7.45) ABG pCO2 53 H (35-45) mmHg ABG pO2 58 L* (83-108) mmHg ABG HCO3 38 H (21-25) mmol/L ABG Total CO2 40 H (19-24) mmol/L ABG O2 Saturation 90.3 L (94-97) % Carbon Dioxide (22-30) mmol/L BUN (7-17) mg/dL Glucose (74-99) mg/dL POC Glucose (mg/dL) 109 H (75-99) mg/dL Calcium (8.4-10.2) mg/dL 10/21/21 10/21/21 Range/Units 05:15 05:45 WBC (3.8-10.6) k/uL RBC (3.80-5.40) m/uL Hgb (11.4-16.0) gm/dL Hct (34.0-46.0) % MCHC (31.0-37.0) g/dL RDW (11.5-15.5) % Neutrophils # (1.3-7.7) k/uL ABG pH (7.35-7.45) ABG pCO2 (35-45) mmHg ABG pO2 (83-108) mmHg ABG HCO3 (21-25) mmol/L ABG Total CO2 (19-24) mmol/L ABG O2 Saturation (94-97) % Carbon Dioxide 36 H (22-30) mmol/L BUN 22 H (7-17) mg/dL Glucose 105 H (74-99) mg/dL POC Glucose (mg/dL) 116 H (75-99) mg/dL Calcium 8.3 L (8.4-10.2) mg/dL Assessment and Plan Plan: 1 Acute hypoxemic respiratory failure/ARDS secondary to coronavirus associated pneumonia, status post intubation, and mechanical ventilation on 09/25/2021.No evidence of pulmonary embolism on CT angiogram. The patient continues to have diffuse bilateral pulmonary infiltrates consistent with COVID 19 related pneumonia. Patient subsequently developed bilateral pneumothoraces. The patient has bilateral chest tubes and the chest tubes were inserted on 10/11/2021. The patient remains intubated on a mechanical ventilator. The patient has a tracheostomy on 10/14/2021 . The chest x-ray from today shows diffuse bilateral pulmonary infiltrates consistent with ARDS. The patient remains on anticoagulation with Eliquis. The patient remains hemodynamically stable. Chest x-ray was noted. Blood gases was noted. The patient remains sedated and paralyzed. The patient remains on Decadron. 2 acute COVID 19 related pneumonia 3 Acute bilateral pneumothoraces, status post bilateral chest tube placements, on 10/11/2021. subcutaneous emphysema, as a complication of mechanical ventilation and coronavirus associated pneumonia. No evidence of any air leak on the Pleur-evac. Noted this 70 output from the chest tube. 4 acute left lower extremity femoral DVT currently on Eliquis. The patient is known to have a Primary hypercoagulable state in the form of Leiden factor deficiency/factor V deficiency. The patient has been maintained on warfarin on outpatient basis. The patient is currently on Eliquis 5 mg by mouth twice a day. 5 Prior history of DVT. 6 History of fibromyalgia. 7 History of arthritis. 8 History of degenerative disc disease. 9 Mild transaminitis secondary to coronavirus infection. Plan Continue ventilator support for now. Keep the same ventilator setting and drop the PEEP down to 1. Drop the PEEP down to 14 and FiO2 is at 70%. Monitor the oxygenation. Remove the chest tubes today, the chest tubes were removed successfully. We'll continue monitoring the chest x-ray. Give the patient paralytic holiday and keep the combination of propofol and fentanyl. Keep chest tube in place for another 24 hours Continue Decadron and the reduced dose up to 4 mg by mouth daily Continue anticoagulation with Eliquis 5 mg by mouth twice a day enteral feeding for nutritional support, vital 1.2 @ 10cc/hr No major changes for today Prognosis remains poor. The patient is not having any major progress over the past several days. Obviously she carries a very poor prognosis. She is a case of post overnight he relates pneumonia/ARDS with prolonged respiratory failure. We'll continue to follow make further recommendations based on her progress. This is a critically care evaluation was done and more than 30 minutes. The was updated on her condition. We decided to continue the treatment for now as long as the patient is stable and she continues to be in a single organ damage. I think her prognosis poor based on the above. We'll continue to follow. 3 Time with Patient: Greater than 30
--- NOTE | 2021-10-21 11:12 | P.PN ---
<Alicia Hooks - Last Filed: 10/21/21 11:09> Subjective Progress Note Date: 10/21/21 CHIEF COMPLAINT: Respiratory failure HISTORY OF PRESENT ILLNESS: Patient remains on mechanical ventilation. Critical care adjusted vent settings. FiO2 at 70% and PEEP at 14. Patient's chest tubes have been removed. She is tolerating her tube feeds. Her tube feeds are at goal a 10 mL per hour. Afebrile WBC 14.4 hemoglobin 8.4 PHYSICAL EXAM: VITAL SIGNS: Reviewed. GENERAL: Well-developed in no acute distress. HEENT: Moist buccal mucosa. Head is atraumatic, normocephalic. Tracheostomy site clean dry and intact ABDOMEN: Soft. Nondistended. Nontender. PEG tube site clean dry and intact NEUROLOGIC: Intubated and sedated ASSESSMENT: 1. Acute hypoxic respiratory failure secondary to COVID-19 pneumonia requiring mechanical ventilation. Status post tracheostomy placement 2. Severe protein calorie nutrition status post PEG tube placement PLAN: -Continue ICU management -Continue supportive care Physician Financial Advisor note has been reviewed by physician. Signing provider agrees with the documented findings, assessment, and plan of care. Objective - Vital Signs Vital signs: Vital Signs Temp 98.1 F 10/21/21 04:00 Pulse 76 10/21/21 10:00 Resp 26 H 10/21/21 10:00 BP 116/70 10/21/21 08:00 Pulse Ox 98 10/21/21 10:00 Intake & Output 10/20/21 10/21/21 10/21/21 18:59 06:59 18:59 Intake Total 1241.052 683.000 453.513 Output Total 2540 795 495 Balance -1298.948 -112 -41.487 Weight 92 kg Intake: IV 229 143 52 0.9 NS 190 110 40 pressure bag 39 33 12 Intake, IV Titration 822.052 430.000 331.513 Amount Clevidipine Butyrate 25 9.701 50.000 63 mg In Empty Bag 1 bag @ 1 MG/HR 2 mls/hr IV .Q24H [facility] Rx#:[id number] Rocuronium 400 mg In 271.061 280 101.533 Sodium Chloride 0.9% 100 ml @ 5 MCG/KG/MIN 9.954 mls/hr IV .Q14H4M [facility] Rx# :[id number] fentaNYL (PF) 2,500 mcg 143.893 In Sodium Chloride 0.9% 200 ml @ 0.5 MCG/KG/HR 4. 6 mls/hr IV .Q24H [facility] Rx# :[id number] propofoL 1,000 mg In 397.397 100 166.98 Empty Bag 1 bag @ Titrate IV .Q0M [facility] Rx#: [id number] Tube Feeding 130 110 40 Other 60 30 Output: Chest Tube Drainage 10 Chest Tube Left Lateral 10 Chest Urine 2540 785 495 Other: Voiding Method Indwelling Catheter Indwelling Catheter ABP, PAP, CO, CI - Last Documented Arterial Blood Pressure 135/60 - Labs CBC & Chem 7: 10/21/21 05:15 10/21/21 05:15 Labs: Abnormal Lab Results - Last 24 Hours (Table) 10/20/21 10/20/21 10/20/21 Range/Units 12:27 17:30 18:32 WBC (3.8-10.6) k/uL RBC (3.80-5.40) m/uL Hgb (11.4-16.0) gm/dL Hct (34.0-46.0) % MCHC (31.0-37.0) g/dL RDW (11.5-15.5) % Neutrophils # (1.3-7.7) k/uL ABG pH (7.35-7.45) ABG pCO2 (35-45) mmHg ABG pO2 (83-108) mmHg ABG HCO3 (21-25) mmol/L ABG Total CO2 (19-24) mmol/L ABG O2 Saturation (94-97) % Carbon Dioxide (22-30) mmol/L BUN (7-17) mg/dL Glucose (74-99) mg/dL POC Glucose (mg/dL) 142 H 230 H 201 H (75-99) mg/dL Calcium (8.4-10.2) mg/dL 10/20/21 10/21/21 10/21/21 Range/Units 23:56 05:04 05:15 WBC 14.4 H (3.8-10.6) k/uL RBC 2.96 L (3.80-5.40) m/uL Hgb 8.4 L (11.4-16.0) gm/dL Hct 27.7 L (34.0-46.0) % MCHC 30.3 L (31.0-37.0) g/dL RDW 18.8 H (11.5-15.5) % Neutrophils # 10.7 H (1.3-7.7) k/uL ABG pH 7.46 H (7.35-7.45) ABG pCO2 53 H (35-45) mmHg ABG pO2 58 L* (83-108) mmHg ABG HCO3 38 H (21-25) mmol/L ABG Total CO2 40 H (19-24) mmol/L ABG O2 Saturation 90.3 L (94-97) % Carbon Dioxide (22-30) mmol/L BUN (7-17) mg/dL Glucose (74-99) mg/dL POC Glucose (mg/dL) 109 H (75-99) mg/dL Calcium (8.4-10.2) mg/dL 10/21/21 10/21/21 Range/Units 05:15 05:45 WBC (3.8-10.6) k/uL RBC (3.80-5.40) m/uL Hgb (11.4-16.0) gm/dL Hct (34.0-46.0) % MCHC (31.0-37.0) g/dL RDW (11.5-15.5) % Neutrophils # (1.3-7.7) k/uL ABG pH (7.35-7.45) ABG pCO2 (35-45) mmHg ABG pO2 (83-108) mmHg ABG HCO3 (21-25) mmol/L ABG Total CO2 (19-24) mmol/L ABG O2 Saturation (94-97) % Carbon Dioxide 36 H (22-30) mmol/L BUN 22 H (7-17) mg/dL Glucose 105 H (74-99) mg/dL POC Glucose (mg/dL) 116 H (75-99) mg/dL Calcium 8.3 L (8.4-10.2) mg/dL <Pedrito Nelson - Last Filed: 10/21/21 14:14> Subjective I have personally seen and examined the patient, reviewed the SHIRT TURNER /PAs history, exam and MDM and agree with the assessment and plan as written. Based on total visit time, I have performed more than 50% of the visit. As above. Patient doing about the same. Her bolster was loosened. Will have the tracheostomy sutures removed. Will follow on an as-needed basis. Please call if any issues with the tracheostomy or PEG tube arise. Objective - Vital Signs Vital signs: Vital Signs Temp 99.3 F 10/21/21 13:00 Pulse 93 10/21/21 14:00 Resp 29 H 10/21/21 14:00 BP 116/70 10/21/21 08:00 Pulse Ox 91 L 10/21/21 14:00 Intake & Output 10/20/21 10/21/21 10/21/21 18:59 06:59 18:59 Intake Total 1241.052 683.000 845.513 Output Total 2540 795 1105 Balance -1298.948 -112 -259.487 Weight 92 kg Intake: IV 229 143 104 0.9 NS 190 110 80 pressure bag 39 33 24 Intake, IV Titration 822.052 430.000 581.513 Amount Clevidipine Butyrate 25 9.701 50.000 63 mg In Empty Bag 1 bag @ 1 MG/HR 2 mls/hr IV .Q24H [facility] Rx#:[id number] Rocuronium 400 mg In 271.061 280 101.533 Sodium Chloride 0.9% 100 ml @ 5 MCG/KG/MIN 9.954 mls/hr IV .Q14H4M [facility] Rx# :[id number] fentaNYL (PF) 2,500 mcg 143.893 250 In Sodium Chloride 0.9% 200 ml @ 0.5 MCG/KG/HR 4. 6 mls/hr IV .Q24H [facility] Rx# :[id number] propofoL 1,000 mg In 397.397 100 166.98 Empty Bag 1 bag @ Titrate IV .Q0M [facility] Rx#: [id number] Tube Feeding 130 110 100 Other 60 60 Output: Chest Tube Drainage 10 Chest Tube Left Lateral 10 Chest Urine 2540 785 1105 Other: Voiding Method Indwelling Catheter Indwelling Catheter Indwelling Catheter ABP, PAP, CO, CI - Last Documented Arterial Blood Pressure 120/58 - Labs CBC & Chem 7: 10/21/21 05:15 10/21/21 05:15 Labs: Abnormal Lab Results - Last 24 Hours (Table) 10/20/21 10/20/21 10/20/21 Range/Units 17:30 18:32 23:56 WBC (3.8-10.6) k/uL RBC (3.80-5.40) m/uL Hgb (11.4-16.0) gm/dL Hct (34.0-46.0) % MCHC (31.0-37.0) g/dL RDW (11.5-15.5) % Neutrophils # (1.3-7.7) k/uL ABG pH (7.35-7.45) ABG pCO2 (35-45) mmHg ABG pO2 (83-108) mmHg ABG HCO3 (21-25) mmol/L ABG Total CO2 (19-24) mmol/L ABG O2 Saturation (94-97) % Carbon Dioxide (22-30) mmol/L BUN (7-17) mg/dL Glucose (74-99) mg/dL POC Glucose (mg/dL) 230 H 201 H 109 H (75-99) mg/dL Calcium (8.4-10.2) mg/dL 10/21/21 10/21/21 10/21/21 Range/Units 05:04 05:15 05:15 WBC 14.4 H (3.8-10.6) k/uL RBC 2.96 L (3.80-5.40) m/uL Hgb 8.4 L (11.4-16.0) gm/dL Hct 27.7 L (34.0-46.0) % MCHC 30.3 L (31.0-37.0) g/dL RDW 18.8 H (11.5-15.5) % Neutrophils # 10.7 H (1.3-7.7) k/uL ABG pH 7.46 H (7.35-7.45) ABG pCO2 53 H (35-45) mmHg ABG pO2 58 L* (83-108) mmHg ABG HCO3 38 H (21-25) mmol/L ABG Total CO2 40 H (19-24) mmol/L ABG O2 Saturation 90.3 L (94-97) % Carbon Dioxide 36 H (22-30) mmol/L BUN 22 H (7-17) mg/dL Glucose 105 H (74-99) mg/dL POC Glucose (mg/dL) (75-99) mg/dL Calcium 8.3 L (8.4-10.2) mg/dL 10/21/21 10/21/21 Range/Units 05:45 11:53 WBC (3.8-10.6) k/uL RBC (3.80-5.40) m/uL Hgb (11.4-16.0) gm/dL Hct (34.0-46.0) % MCHC (31.0-37.0) g/dL RDW (11.5-15.5) % Neutrophils # (1.3-7.7) k/uL ABG pH (7.35-7.45) ABG pCO2 (35-45) mmHg ABG pO2 (83-108) mmHg ABG HCO3 (21-25) mmol/L ABG Total CO2 (19-24) mmol/L ABG O2 Saturation (94-97) % Carbon Dioxide (22-30) mmol/L BUN (7-17) mg/dL Glucose (74-99) mg/dL POC Glucose (mg/dL) 116 H 220 H (75-99) mg/dL Calcium (8.4-10.2) mg/dL Assessment and Plan (1) Respiratory failure Current Visit: Yes Status: Acute Code(s): J96.90 - RESPIRATORY FAILURE, UNSP, UNSP W HYPOXIA OR HYPERCAPNIA SNOMED Code(s): 053675235
[2021-10-21 11:55] LABS: Glucose,Whole Blood 220 mg/dL (75-99)
[2021-10-21] MEDS: fentaNYL (PF) 2,500 MCG in SODIUM CHLORIDE 0.9% 200 ML IV SCH (13:24)
[2021-10-21] MEDS: LACTATED RINGERS 1,000 ML IV SCH (15:22)
[2021-10-21 17:42] LABS: Glucose,Whole Blood 144 mg/dL (75-99)
[2021-10-22 00:29] LABS: Glucose,Whole Blood 126 mg/dL (75-99)
[2021-10-22] MEDS: INSULIN ASPART (NovoLOG) 100 UNIT/ML VIAL SQ SCH ×5 (00:29→23:20)
--- NOTE | 2021-10-22 01:12 | P.PN ---
Subjective Progress Note Date: 10/21/21 This is a 61-year-old female who was recently admitted with acute COVID-19 pneumonia with acute COVID-19 bilateral interstitial pneumonia and also with transaminitis and being closely monitored. Patient remains in the ICU and currently intubated and sedated with an FiO2 of 70% and PEEP is 18. 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 Patient did have a venous Doppler study done recently which showed left leg DVT and patient is maintained on Eliquis will continue. Patient also continues on empiric antibiotics and awaiting for sputum culture finalized. Patient was started on IV cefepime and will continue. Patient is also continued on oral dexamethasone along with vitamin and zinc supplements and will continue. Patient with some mild volume overload and given a dose of IV Lasix push today. 09/29/2021 Patient is seen and evaluated this morning continues to be closely monitored in the ICU and continues to be on mechanical ventilation and sedated. FiO2 was increased at 80% with a PEEP of 18 and oxygen saturations between 87-91%. Patient developing subcutaneous emphysema in the neck and chest wall area and chest x-ray today shows bilateral multifocal and confluent opacification is redemonstrated consistent with COVID-19 infection with a new small left apical pneumothorax estimated under 5% with new pneumomediastinum and recurrent overlying subcutaneous emphysema noted. Patient is white blood count mildly elevated at 16.1 and is continued on oral dexamethasone along with oral eliquis for anticoagulation. Patient continues to be on IV cefepime and blood and sputum cultures are negative thus far. 09/30/2021 Patient is seen today continues to be closely monitored in the ICU with multiple medical consultations following. Patient continues to be mechanically intubated and sedated with continued subcutaneous emphysema noted. Chest xray shows a trace left apical pneumothorax that is minimally smaller 7mm versus 1cm previously, extensive bilateral subcutaneous emphysema persists and diffuse interstitial changes and bilateral patchy opacities persist with slight improvement in aeration in the lower lungs. Per nursing staff corbin was clogged with copious amounts of white discharge and will add diflucan and corbin catheter has been changed and draining adequately. Patient continues on IV cefepime. Patient tolerating tube feeds and will continue. 10/01/2021 Patient is seen and evaluated in follow up this morning and continues to be closely monitored. Multiple medical consultations following and patient c ontinues to be on mechanical vent and sedated. Patient continues on IV Cefepime and diflucan. Patient chest xray today shows stable extensive subcutaneous emphysema, no pneumothorax, and patchy bilateral lung infiltrates remain present. INflammatory markers trending down. 10/04/2021 Patient is seen in follow-up continues to be closely monitored in the ICU. Patient remains on mechanical vent with an FI02 of 65% and peep is 18. Weaning trials being attempted with pulmonary operations superintendent following closely. Patient continues with extensive subq emphysema noted on exam. 10/05/2021 Patient Is seen and evaluated this morning with continued attempts at weaning and continues on mechanical vent and intubated with pulmonary operations superintendent following closely. Patient remains on Eliquis which will be held as surgery Dr. Nelson was consulted for possible PEG and trach tube placement for unsuccessful attempts at weaning from ventilation and prolonged hospitalization on mechanical vent. Chest x-ray today shows recurrent tiny left apical pneumothorax estimated under 5% with worsening overlying subcutaneous emphysema and again pneumomediastinum redemonstrated with multifocal confluent opacification's redemonstrated consistent with COVID-19 infection and/or arts are redemonstrated with no significant change from one day previously. Patient continues on FiO2 of 65% and PEEP was weaned down to 14 today. IV cefepime discontinued. 10/06/2021 Patient is seen in follow-up this morning per nursing staff patient had multiple runs of ectopy an irregular heart rate and rhythms with PVCs and cardiology consulted. Patient was placed on lidocaine drip and was originally on eliquis is currently on hold for possible PEG and trach placement with general surgery following. Patient had difficulty maintaining oxygen saturations and FiO2 was increased to 100% and PEEP continues at 14. Multiple medical consultations following and patient continues on oral steroids along with vitamin and zinc supplements along with fluconazole. Patient being started on IV Lasix daily and recommend close monitoring of electrolytes and kidney functions. 10/07/2021 Patient is seen in follow-up this morning continues to be monitored closely in the ICU with multiple medical consultations following. Patient is currently on mechanical vent with an FiO2 of 80% and PEEP is 16. General surgery also following for possible PEG and trach placement and will need to discuss with surgery about when this will occur. Patient remains on fluconazole. She also continues on vitamin and zinc supplements along with oral dexamethasone, clevidipine, Nimbex, IV Lasix, fentanyl and propofol and is off norepinephrine. Chest x-ray shows stable bilateral lung infiltrates. 10/08/2021 Patient is seen this morning continues to be on mechanical vent with an FiO2 of 85% and PEEP of 16. Patient continues with extensive subcutaneous emphysema and plans are for possible PEG and trach placement although on hold until possibly next week once more stable. Patient continues on Cleviprex along with fentanyl and propofol and is receiving IV Lasix daily. Patient also continues on lidocaine drip which is currently on hold and cardiology is following closely. Anticoagulant was resumed for now again until more stable to undergo PEG and trach placement. Chest x-ray today shows persistent bilateral multifocal and confluent increased opacification is with persistent overlying subcutaneous emphysema noted in pneumomediastinum is again redemonstrated. 10/09/2021 Patient evaluated today in ICU mechanical ventilation with FiO2 of 80%. Chest x-ray this morning shows similar multifocal airspace opacities and stable support lines and tubes. Similar subcutaneous emphysema scattered throughout the visualized thorax. PEG and trach plan for next week once more stable. Current meds include Cleviprex, Nimbex, fentanyl, propofol. She is receiving IV fluconazole, as well as IV Lasix. Levophed and Lidocaine gtt;s are on hold. Positive bowel sounds. Current vitals afebrile, heart rate 71, blood pressure 135/60 and oxygen saturation is 93%. Respirations 30. Labs today, white count 17, hemoglobin 11.6, sodium 139, potassium 3.8, BUN 34, creatinine 0.91, CO2 33, calcium 8.7, ALT 54, albumin 2.8 with blood sugars in the 100s. 10/10/2021 Patient evaluated today in the ICU on the mechanical VENT with fio2 of 100%. Positive bowel movement today, Stage 2 pressure ulcer on coccyx per RN, optifoam ordered. Per RN they were unable to patient as she was desaturating. They're unable to wean Fi02 currently as she does desaturate with any time of movement. She was lying more on her right side during evaluation and pulse ox was dropping into high 80s she was being repositioned by nurses. Plan is to PEG/TRACH patient tomorrow. Last family update was 4 days ago. We will call and discuss case today. Patient is afebrile, heart rate 84, respirations 30, blood pressure 141/55, 92% oxygen saturation on 100% Fi02, which was increased today up from 70 Fi02%. Labs today show WBC of 15.6, hgbl 10.7, sodium 138, potassium 3.9, chloride 100, CO2 37, glucose 117, calcium 8.2. Chest xray today shows pneumonia, ARDS. 10/11/2021 Patient is seen and evaluated in follow-up this morning continues to be closely monitored in the ICU and patient is continued on FiO2 of 90% and PEEP is 16 with multiple medical consultations following. Chest x-ray today shows new left- sided pneumothorax estimated 10-20% with overlying subcutaneous emphysema and pneumomediastinum redemonstrated with bilateral multifocal and confluent op acification's redemonstrated consistent with COVID-19 infection and/or arts and no significant change from one day previous. Patient is status post left chest tube insertion with pulmonary operations superintendent. Cardiology following and patient is off lidocaine drip and maintaining sinus rhythm. Patient also continues on vitamin and zinc supplements along with oral dexamethasone and patient continues on IV Lasix 40 mg daily. Patient also continues off norepinephrine and is currently maintained on IV cefepime along with fluconazole. General surgery following as well and plan is for peg and trach placement in the am 10/12/2021 Patient is seen in the ICU this morning continues to be closely monitored by multiple medical consultations. Patient was scheduled for PEG and trach placement with general surgery Dr. Nelson today although canceled as patient became hypotensive requiring Levophed along with acute blood loss anemia and hemoglobin dropped to 6.5 this morning requiring 1 unit of PRBC. Patient continues with left chest tube with pneumothorax and chest x-ray today shows the jahaira is difficult to clearly identify on the present exam and the ET tube may be approximately 1 cm from the jahaira and there are bilateral chest tubes present with continued diffuse interstitial opacification is and more focal bibasilar opacification is with subcutaneous emphysema persists along the upper chest with slight improvement on the left. No appreciable pneumothorax noted. Patient having worsening right pleural effusion last night and received a right- sided chest tube with pulmonary operations superintendent. FiO2 is 90% and PEEP of 16. Again overall prognosis remains extremely poor and guarded. 10/13/2021 Patient is seen in follow-up this morning in the ICU with multiple medical consultations following. Lengthy discussion was had with pulmonary operations superintendent and family members and would like to continue with full CODE STATUS and plan is in place for PEG tube and tracheostomy placement tomorrow. Anticoagulant on hold and Dr. Nelson plans for surgery tomorrow. Patient continues on oral dexamethasone along with IV cefepime, vitamin and zinc supplements. Patient also continues on Cleviprex and Nimbex. Patient also continues on fentanyl and propofol and will continue. Chest x-ray today shows stable portable chest with bilateral chest tubes without sizable pneumothorax identified and continued subcutaneous air persists with persistent interstitial changes bilaterally with airspace disease in the bilateral lung bases that are unchanged. FiO2 is 60% and PEEP of 16. 10/14/2021 Patient is seen and evaluated in the ICU being closely monitored with multiple medical consultations following. at the bedside today and had detailed discussion with overall prognosis. Plan is to proceed with PEG tube and tracheostomy placement with surgery Dr. Nelson today and anticoagulant continues to be on hold for this procedure. Patient continues on mechanical ventilation with an FiO2 of 70% and PEEP of 16. Chest x-ray today shows improving infiltrate with bibasilar residual and bilateral chest tubes remain present with no pneumothorax evident on either side and again subcutaneous emphysema is noted. 10/15/2021 Patient is seen in the ICU being closely monitored. Patient is status post PEG and trach placement yesterday. Chest x-ray today shows bilateral patchy lung infiltrates greater at the right base with diffuse increased lung markings and bilateral chest tubes remain present and subcutaneous emphysema on the right is diminished. Patient continues with an FI02 of 60 and peep is 16. To resume tube feeds per surgery. Patient continues on norepinephrine and sedation. Patient is receiving IV lasix daily. 10/16/2021 Patient is currently in the MICU and remains on ventilator. Status post tracheostomy and PEG tube placement on 10/14/2021. Patient is sedated and paralyzed. Also on Cleviprex. Chest x-ray showed no acute cardiopulmonary disease with no interval changes. Laboratory data showed WBC 16.9 hemoglobin 8.9 and platelets 278 BUN 19 and creatinine 0.5 and calcium 8.1 patient is being continued on dexamethasone 6 mg daily, Lasix 40 mg IV daily and multivitamins and anticoagulation with Eliquis. Pulmonary and general surgery is on board. 10/17/2021 Patient is in the MICU. Remains on the current ventilator via tracheostomy. Status post tracheostomy and PEG tube placement on 10/14/2021. Sedated and paralyzed and also on fentanyl drip. Currently on assist control with tidal volume of 420, FiO2 80% and PEEP of 16. Respiratory of 30. Chest x-ray showed no interval change in acute cardiopulmonary disease Laboratory data showed WBC 15.8 hemoglobin 8.2 and platelets 271 Sodium 136 potassium 3.1 chloride 100 bicarb is 32 BUN 21 creatinine 0.48 and albumin 2.3 Patient is being continued on Lasix IV, dexamethasone and anticoagulation with Eliquis. 10/18/2021 Patient is seen in follow-up and continues in the ICU with multiple medical consultations following. Patient continues on mechanical vent with an FI02 of 70% and peep is 16. Chest xray shows overall stable exam with interstitial changes and bilateral patchy infiltrates with right greater than left and greater at the bases with bilateral chest tubes noted. no appreciable pneumothorax. Patient continues on propofol and fentanyl along with cleviprex and rocuronium. Eliquis has been resumed. Potassium is 3.3 and will be replaced per protocol. Patient also continues to receive IV lasix daily. 10/19/2021 Patient is seen this morning and continues to be in the ICU with multiple medical consultations following. Patient continues with bilateral chest tubes and remains on mechanical ventilation with an FiO2 of 65% and PEEP is 16. Chest x-ray today shows Bilateral multifocal and confluent opacification greatest in the lower lungs consistent with COVID-19 infection and/or ARDS all redemon strated with no significant change from one day earlier and continued bilateral chest tubes without pneumothorax redemonstrated. 10/20/2021 Patient continues to be in the ICU under close critical monitoring with multiple medical consultations following. Patient continues with bilateral chest tubes although per nursing staff may possibly discontinued today. Chest x-ray today shows stable portable chest with no change in scattered mixed interstitial and alveolar infiltrates. Patient remains on mechanical ventilation via tracheostomy with an FiO2 of 55% and PEEP is 15. Patient continues on Cleviprex along with rocuronium and sedation. 10/21/2021 Patient continues in the MICU being closely monitored. Chest tubes were removed today and chest xray stable with interstitial changes and basilar ground glass, that is similar to previous with slight improvement. Patient continues on mechanical vent with an FI02 of 70% and peep is 14. Patient remains sedated and per nursing staff working on weaning paralytics. Patient continued on rocuronium. Patient is tolerating tube feeds and also continues on IV lasix daily with generalized edema noted throughout. Review of systems: Unable to obtain as patient is mechanically intubated and sedated Labs: WBC is 14.4, hemoglobin is 8.4, platelets are 360, sodium is 141, potassium is 3.8 , BUN is 22, creatinine is 0.52, calcium is 8.3 Active Medications Apixaban (Apixaban 5 Mg Tab) 5 mg PO BID [facility]; Protocol Last Admin: 10/21/21 20:00 Dose: 5 mg Documented by: Artificial Tears (Artificial Tears-Hypromellose Drops 15 Ml Btl) 2 drops BOTH EYES QID [facility] Last Admin: 10/21/21 23:11 Dose: Not Given Documented by: Ascorbic Acid (Ascorbic Acid 500 Mg Tab) 500 mg PO BID [facility] Last Admin: 10/21/21 20:00 Dose: 500 mg Documented by: Chlorhexidine Gluconate (Chlorhexidine Gluconate 15 Ml Cup) 15 ml MUCOUS MEM BID [facility] Last Admin: 10/21/21 20:00 Dose: 15 ml Documented by: Dexamethasone (Dexamethasone 2 Mg Tab) 4 mg PO DAILY [facility] Docusate Sodium (Docusate Oral Soln 100 Mg/10 Ml Cup) 100 mg PO DAILY PRN PRN Reason: Constipation Last Admin: 10/18/21 15:53 Dose: 100 mg Documented by: Ergocalciferol (Ergocalciferol 1,250 Mcg (50,000 Iu) Capsule) 1,250 mcg PO MORRIS [facility] Last Admin: 10/17/21 08:14 Dose: 1,250 mcg Documented by: Furosemide (Furosemide 10 Mg/Ml 4 Ml Vial) 40 mg IV DAILY [facility] Last Admin: 10/21/21 08:02 Dose: 40 mg Documented by: Propofol 1,000 mg/ IV Solution 100 mls @ 0 mls/hr IV .Q0M [facility]; Protocol Last Admin: 10/21/21 21:39 Dose: 60 mcg/kg/min, 33.12 mls/hr Documented by: Sodium Chloride (Saline 0.9%) 1,000 mls @ 20 mls/hr IV .Q24H [facility] Last Admin: 10/21/21 01:18 Dose: Not Given Documented by: Fentanyl Citrate 2,500 mcg/ (Sodium Chloride) 250 mls @ 4.6 mls/hr IV .Q24H [facility]; Protocol Last Admin: 10/21/21 13:24 Dose: 1.5 mcg/kg/hr, 13.8 mls/hr Documented by: Clevidipine 25 mg/ IV Solution 50 mls @ 2 mls/hr IV .Q24H [facility]; Protocol Last Admin: 10/21/21 23:45 Dose: 2 mg/hr, 4 mls/hr Documented by: Lactated Ringer's (Lactated Ringers) 1,000 mls @ 20 mls/hr IV .Q24H [facility] Last Admin: 10/21/21 15:22 Dose: 20 mls/hr Documented by: Norepinephrine Bitartrate 8 mg (/ Sodium Chloride) 258 mls @ 9.143 mls/hr IV .Q24H [facility]; Protocol Last Titration: 10/21/21 22:50 Dose: 0 mcg/kg/min, 0 mls/hr Documented by: Rocuronium [place] 400 mg/ (Sodium Chloride) 140 mls @ 9.954 mls/hr IV .Q14H4M [facility]; Protocol Last Titration: 10/21/21 09:17 Dose: 0 mcg/kg/min, 0 mls/hr Documented by: Insulin Aspart (Insulin Aspart (Novolog) 100 Unit/Ml Vial) 0 unit SQ Q6HR [facility]; Protocol Last Admin: 10/22/21 00:29 Dose: Not Given Documented by: Miscellaneous Information (Pneumonia Protocol Utilized 1 Each Misc) 1 each PO ONCE PRN PRN Reason: Per Protocol Miscellaneous Information (Potassium Replacement Protocol 1 Each Misc) 1 each MISCELLANE DAILY PRN; Protocol PRN Reason: Per Protocol Naloxone HCl (Naloxone 0.4 Mg/Ml 1 Ml Vial) 0.2 mg IV Q2M PRN PRN Reason: Opioid Reversal Pantoprazole Sodium (Pantoprazole 40 Mg/10 Ml Vial) 40 mg IV DAILY [facility] Last Admin: 10/21/21 08:02 Dose: 40 mg Documented by: Zinc Sulfate (Zinc Sulfate 220 Mg Cap) 220 mg PO DAILY [facility] Last Admin: 10/21/21 08:38 Dose: 220 mg Documented by: Physical Exam: Gen: This is a 61-year-old female currently sedated and intubated. mechanical ventilation Fio2 70% with a PEEP of 14 HEENT: Head is atraumatic, normocephalic. Pupils equal, round. Sclerae is anicteric. tracheostomy noted NECK: Supple. No JVD. No lymphadenopathy. No thyromegaly. tracheostomy noted LUNGS: Diminished breath sounds bilaterally with coarse rhonchi and crackles noted. No intercostal retractions. Bilateral chest tubes removed HEART: S1, S2 are muffled ABDOMEN: Soft. Bowel sounds are present. No masses. No tenderness. peg tube noted. EXTREMITIES: No pedal edema. No calf tenderness. generalized edema noted NEUROLOGICAL: Patient is currently intubated and sedated Assessment: Acute COVID-19 infection with acute COVID-19 bilateral interstitial pneumonia with hypoxic hypercarbic respiratory failure on mechanical vent status post trach and peg tube placement on 10/14/2021 Subcutaneous emphysema of the neck and chest, improving bilateral pneumothoraces with chest tube placement and is status post removal of chest tubes today 2.3.2021 Acute blood loss anemia secondary to bilateral chest tube placements, possible hypovolemic shock requiring pressor support, currently hypertensive and off pressors, continues on cleviprex Non-sustained ventricular tachycardia, currently sinus Acute left leg deep vein thrombosis Acute respiratory acidosis Primary hypercoagulable state and factor V deficiency Mild transaminitis, possibly secondary to COVID-19 History of degenerative joint disease History of fibromyalgia Elevated inflammatory markers of COVID-19 Obesity with a body mass index of 38.1 Full code Plan: Recommend to continue with current medications and follow along closely with multiple medical consultations. Prognosis remains extremely poor and guarded with multiple complex medical issues noted. Patient continues on mechanical ventilation via tracheostomy and FiO2 70% with PEEP of 14. Recommend to continue with current medications. Patient continues on cleviprex along with propofol and fentanyl, and rocuronium. RN attempting to wean rocuronium. chest tubes removed today. Recommend repeat labs and continued close monitoring. Again due to multiple complex medical issues overall prognosis is extremely poor and quite guarded. Objective - Vital Signs Vital signs: Vital Signs Temp 98.1 F 10/21/21 04:00 Pulse 84 10/21/21 09:00 Resp 27 H 10/21/21 09:00 BP 116/70 10/21/21 08:00 Pulse Ox 99 10/21/21 09:00 Intake & Output 10/20/21 10/21/21 10/21/21 18:59 06:59 18:59 Intake Total 1241.052 683.000 308.493 Output Total 2540 795 145 Balance -1298.948 -112 163.493 Weight 92 kg Intake: IV 229 143 26 0.9 NS 190 110 20 pressure bag 39 33 6 Intake, IV Titration 822.052 430.000 232.493 Amount Clevidipine Butyrate 25 9.701 50.000 50 mg In Empty Bag 1 bag @ 1 MG/HR 2 mls/hr IV .Q24H [facility] Rx#:[id number] Rocuronium 400 mg In 271.061 280 101.533 Sodium Chloride 0.9% 100 ml @ 5 MCG/KG/MIN 9.954 mls/hr IV .Q14H4M [facility] Rx# :[id number] fentaNYL (PF) 2,500 mcg 143.893 In Sodium Chloride 0.9% 200 ml @ 0.5 MCG/KG/HR 4. 6 mls/hr IV .Q24H [facility] Rx# :[id number] propofoL 1,000 mg In 397.397 100 80.96 Empty Bag 1 bag @ Titrate IV .Q0M [facility] Rx#: [id number] Tube Feeding 130 110 20 Other 60 30 Output: Chest Tube Drainage 10 Chest Tube Left Lateral 10 Chest Urine 2540 785 145 Other: Voiding Method Indwelling Catheter Indwelling Catheter ABP, PAP, CO, CI - Last Documented Arterial Blood Pressure 126/57 - Labs CBC & Chem 7: 10/21/21 05:15 10/21/21 05:15 Labs: Abnormal Lab Results - Last 24 Hours (Table) 10/20/21 10/20/21 10/20/21 Range/Units 12:27 17:30 18:32 WBC (3.8-10.6) k/uL RBC (3.80-5.40) m/uL Hgb (11.4-16.0) gm/dL Hct (34.0-46.0) % MCHC (31.0-37.0) g/dL RDW (11.5-15.5) % Neutrophils # (1.3-7.7) k/uL ABG pH (7.35-7.45) ABG pCO2 (35-45) mmHg ABG pO2 (83-108) mmHg ABG HCO3 (21-25) mmol/L ABG Total CO2 (19-24) mmol/L ABG O2 Saturation (94-97) % Carbon Dioxide (22-30) mmol/L BUN (7-17) mg/dL Glucose (74-99) mg/dL POC Glucose (mg/dL) 142 H 230 H 201 H (75-99) mg/dL Calcium (8.4-10.2) mg/dL 10/20/21 10/21/21 10/21/21 Range/Units 23:56 05:04 05:15 WBC 14.4 H (3.8-10.6) k/uL RBC 2.96 L (3.80-5.40) m/uL Hgb 8.4 L (11.4-16.0) gm/dL Hct 27.7 L (34.0-46.0) % MCHC 30.3 L (31.0-37.0) g/dL RDW 18.8 H (11.5-15.5) % Neutrophils # 10.7 H (1.3-7.7) k/uL ABG pH 7.46 H (7.35-7.45) ABG pCO2 53 H (35-45) mmHg ABG pO2 58 L* (83-108) mmHg ABG HCO3 38 H (21-25) mmol/L ABG Total CO2 40 H (19-24) mmol/L ABG O2 Saturation 90.3 L (94-97) % Carbon Dioxide (22-30) mmol/L BUN (7-17) mg/dL Glucose (74-99) mg/dL POC Glucose (mg/dL) 109 H (75-99) mg/dL Calcium (8.4-10.2) mg/dL 10/21/21 10/21/21 Range/Units 05:15 05:45 WBC (3.8-10.6) k/uL RBC (3.80-5.40) m/uL Hgb (11.4-16.0) gm/dL Hct (34.0-46.0) % MCHC (31.0-37.0) g/dL RDW (11.5-15.5) % Neutrophils # (1.3-7.7) k/uL ABG pH (7.35-7.45) ABG pCO2 (35-45) mmHg ABG pO2 (83-108) mmHg ABG HCO3 (21-25) mmol/L ABG Total CO2 (19-24) mmol/L ABG O2 Saturation (94-97) % Carbon Dioxide 36 H (22-30) mmol/L BUN 22 H (7-17) mg/dL Glucose 105 H (74-99) mg/dL POC Glucose (mg/dL) 116 H (75-99) mg/dL Calcium 8.3 L (8.4-10.2) mg/dL
[2021-10-22] MEDS: CLEVIDIPINE BUTYRATE 25 MG in EMPTY BAG 1 BAG IV SCH (02:00)
[2021-10-22] MEDS: SODIUM CHLORIDE 0.9% 1,000 ML IV SCH (02:07)
[2021-10-22 03:49] LABS: Anisocytosis Slight; Basophils % (A) 0 %; Eosinophils # (A) 0.2 k/uL (0-0.7); Eosinophils % (A) 1 %; HCT 27.5 % (34.0-46.0); HGB 8.5 gm/dL (11.4-16.0); Hypochromasia Marked; Lymphocytes # (A) 2.4 k/uL (1.0-4.8); Lymphocytes % (A) 12 %; MCH 29.2 pg (25.0-35.0); MCHC 30.9 g/dL (31.0-37.0); MCV 94.3 fL (80.0-100.0); Macrocytosis Slight; Mean Platelet Volume 7.9; Monocytes # (A) 1.2 k/uL (0-1.0); Monocytes % (A) 6 %; Neutrophils % (A) 80 %; Platelet Count 393 k/uL (150-450); Poikilocytosis Moderate; RBC 2.92 m/uL (3.80-5.40); RDW 18.4 % (11.5-15.5)
[2021-10-22 04:09] LABS: African American GFR (CKD) >90 (>60 ml/min/1.73 sqM); Anion Gap 2 mmol/L; Blood Urea Nitrogen 23 mg/dL (7-17); Calcium 8.3 mg/dL (8.4-10.2); Carbon Dioxide 36 mmol/L (22-30); Chloride 99 mmol/L (98-107); Glucose 121 mg/dL (74-99); Non-African American GFR(CKD) >90 (>60 ml/min/1.73 sqM); Potassium 3.3 mmol/L (3.5-5.1); Sodium 137 mmol/L (137-145)
[2021-10-22] MEDS: POTASSIUM BICARBONATE/CIT AC 20 MEQ TABLET.EFF NG-TUBE SCH ×4 (04:30→17:14)
[2021-10-22 05:19] LABS: Glucose,Whole Blood 117 mg/dL (75-99)
[2021-10-22 05:27] LABS: ABG Base Excess 14.7 mmol/L; ABG HCO3 39 mmol/L (21-25); ABG Oxygen Saturation 90.9 % (94-97); ABG PCO2 54 mmHg (35-45); ABG PH 7.46 (7.35-7.45); ABG TCO2 40 mmol/L (19-24); Allen Test Performed? Yes
[2021-10-22 05:30] LABS: ABG PO2 59 mmHg (83-108)
[2021-10-22] MEDS: fentaNYL (PF) 2,500 MCG in SODIUM CHLORIDE 0.9% 200 ML IV SCH (06:13)
--- NOTE | 2021-10-22 08:31 | XR ---
EXAMINATION TYPE: XR chest 1V portable DATE OF EXAM: 10/22/2021 HISTORY: Shortness of breath. COMPARISON: 10/21/2021 TECHNIQUE: Single view of the chest is submitted. FINDINGS: There is a large right-sided pneumothorax seen estimated at greater than 90%. No evidence for left-si ded pneumothorax. It appears bilateral chest tubes have been removed when compared to prior study. Tr acheostomy tube and right-sided PICC line remain in place. Scattered interstitial changes left lung. The heart is stable. Hilar and mediastinal structures are within normal limits. Degenerative changes are seen of the dorsal spine. IMPRESSION: 1. Interval development of a large greater than 90% right-sided pneumothorax. Results were communicated via telephone at the time of exam completion to the patient's nurse.
--- NOTE | 2021-10-22 08:33 | P.PN ---
Subjective Progress Note Date: 10/22/21 61-year-old female who is in the MICU with COVID-19 related pneumonia. The patient stated that she was having symptoms since September 10. The symptoms included shortness of breath, cough, fatigue, muscle aches, and generally just not feeling well. The patient is non vaccinated. She tested positive for coronavirus on September 23. The patient takes Coumadin chronically for her factor V or Leiden factor deficiency. Initially, on room air, her saturations were in the 70s, and on a nonrebreather, only got up into the mid 80s. In addition to the primary hypercoagulable state, she has a history of DVT, fibromyalgia, pneumonia, arthritis, and degenerative disc disease. She is a lifelong nonsmoker. Chest x-ray reveals diffuse bilateral infiltrates. CT angiogram was negative for pulmonary embolism, but did show diffuse infiltrates consistent with coronavirus pneumonia. Subsequently, the patient was placed on a BiPAP for respiratory support. Following that, on 09/25/2021 required intubation and mechanical ventilation. On today's evaluation of 10/18/2021, the patient remains on a mechanical ventilator. The patient remains sedated and paralyzed. She had a complicated COVID 19 pneumonia course here in the intensive care unit. The patient developed bilateral pneumothoraces and currently she still has bilateral chest tubes in place. This morning, the patient remains sedated and the patient is currently on propofol at 50 mcg/kg per minute, fentanyl at 2 mcg/kg per minute and the patient is paralyzed with rocuronium running at 10 g. The patient is adequately sedated and paralyzed for now. This morning, she is on a mechanical ventilator on assist control mode at the rate of 30, tidal volume of 420, FiO2 of 70% with a PEEP of 16. Peak airway pressure is 45. The static air pressure is 42. The chest x-ray from today showing no evidence of any pneumothorax. There is still diffuse bilateral pulmonary infiltrates. There are bilateral chest tubes. Chest tubes are in good location. No evidence of any pneumothorax. The blood gases from this morning shows a pH of 7.47 with a pCO2 of 49 and pO2 of 49 and this was done and FiO2 of 60% and based on his affect was brought up to 70%. Meanwhile, the patient is on IV fluids. She is on normal saline at the rate of 20 mL an hour. Norepinephrine is being is less for hemodynamic support and it is running at 0.08 mcg/kg/m.. The patient remains on Decadron 6 mg by mouth on a daily basis and the patient is also on antic oagulation with Eliquis 5 mg by mouth twice a day. All of the cultures of been negative. The white cell count from this morning is at 19.7 with a hemoglobin of 8.3 and platelet count of 321. Sodium is at 139 with a potassium level of 3.3 and currently is 102 with a bicarb is of 36 creatinine is at 23 with a creatinine of 0.5. LFTs are all within normal limits. Noted the patient underwent a bronchoscopy on 10/16/2020. This was done strictly for airway inspection. No cultures were obtained. The patient is currently on no antibiotics. Inflammatory markers showed a pro-calcitonin level of 0.14 from 10/05/2020 and the patient also has LDH of 531 from 10/01/2021. The patient has a PICC line in her right upper extremity. There is a double-lumen PICC line. 10/19/2021, the patient is being seen for a follow-up. The patient remains essentially the same as yesterday. No major interval tire changer aircraft the past 24 hours. She remains on propofol running at 60 mg/kg per minute and fentanyl is running at 2 mcg/kg/h and the patient is also paralyzed utilizing rocuronium running at 10 g. The patient is well sedated and paralyzed for now. She is afebrile and she is hemodynamically stable. She remains on assist control mode with a tidal volume of 420, rate of 30, FiO2 of 65% with a PEEP of 16. Peak pressures remains elevated at 46. Static pressures around 43. Chest x-ray shows no interval change compared to yesterday. No evidence of any pneumothorax. There is diffuse bilateral pulmonary infiltrates. There is evidence of bilateral chest tubes. No evidence of any air leaks through the chest tubes. Output from the chest tube is minimal at this point in time and is essentially serosanguineous. Blood gases from today showed a pH of 7.55 with a pCO2 of 41 and pO2 of 66. Patient is having significant fluctuation in her blood pressure. Yesterday for example she was on low-dose pressors. Subsequently, her blood pressure went up as high as systolic over the 180 range. The pressors were discontinued and the patient was started on Cleviprex drip for blood pressure control. Currently she is off all these drips. Her blood pressure is slightly hypertensive on mornings evaluation. Her white cell count is at 14.8 with a hemoglobin of 7.6 and a platelet count of 342. Sodium is at 139, BUN is at 24 with a creatinine of 0.5 and a blood sugar is at 100. LFTs are normal. Cultures are all negative. She has a double-lumen PICC line in her right upper extremity. Inflammatory markers have been essentially dropping and the patient is not receiving any antibiotic coverage for now. She remains on Decadron at a dose of 6 mg by mouth daily basis and she remains also on Eliquis 5 mg by mouth twice a day. She is receiving enteral feeding for nutritional support. She is currently on vital AF at the rate of 10 mL an hour. IV fluids are currently at KVO. She is receiving daily Lasix 40 mg IV every 24 hours. Fluid balance is negative approximately 700 mL over the past 24 hours. On 2021, the patient is being seen for a follow-up. This morning, she is on propofol running at the rate of 50 mcg/kg per minute and the patient is also on fentanyl running at 1.5 mcg/kg/h. The patient is still on rocuronium for paralysis. Chest x-ray shows adequate expansion of both lungs. No evidence of any pneumothorax. No evidence of any subcutaneous emphysema. Chest tubes are in place. ET tube is in a good location. No evidence of any air leaks of the chest tube and I think it's reasonable to remove both of the chest tubes out today. Meanwhile, the patient remains on a mechanical ventilator. She is on assist-control at the rate of 26 and a tidal volume of 400 and FiO2 of 60% with a PEEP of 16. Peak airway pressures around 38. Static pressures 36. The pH is at 7.49 with a pCO2 of 48 and pO2 of 65. No respiratory secretions for now. She is afebrile. She is hemodynamically stable. She is on no pressors. She is still on Decadron 6 mg on a daily basis. Anticoagulations with Eliquis 5 mg by mouth twice a day The patient also had a DVT of the left lower extremity and previous history of hypercoagulability. Enterofeeding is still in the form of vital AF at the rate of 10 mL an hour. The patient is also receiving daily Lasix 40 mg IV every 24 hours. She is off Cleviprex for now. The blood work from today shows a white cell count of 15.5 with a hemoglobin of 8.4 and the plated count of 295. The sodium is 140 with a potassium level of 3.1, serum bicarbonate of 36 with a BUN of 23 and a creatinine of 0.5. LFTs are all within normal limits. 10/21 2021, seeing the patient for a follow-up. I had a lengthy discussion with the yesterday. Unfortunately, prognosis been limited on this patient. She remains on a propofol and fentanyl combination. Propofol is running at 60 mcg/kg per minute and fentanyl is running at 1.5 mcg/kg per hour. The patient continues to be paralyzed with rocuronium. We managed to pull of the chest tubes today. The patient did not have any pneumothorax and today's chest x-ray. No evidence of any air leak for the past several days. Without it's reasonable to follow the chest tubes on both sides. She is on assist control mode. Overnight, the patient she did have some limited desaturation. Blood gas showed a pH of 7.46 with a pCO2 of 53 and pO2 of 58 and this was on FiO2 of 70% with a PEEP of 15. Based on that, the fight was brought up to 80% and currently her pulse ox is 99-100%. Based on that, drop the FiO2 down to 70%. Adenopathy down to 14. Her current tidal volumes of 400 with a rate of 26. Chest x-ray still showing unchanged bilateral pulmonary infiltrates. Hemoglobin is at 8.4. White cell count is at 14.4. Electrolytes are normal. Creatinine is at 0.5. Blood sugars of 116. No recent inflammatory markers checked. She remains on Decadron and current dose is at 6 mg by mouth daily. She remains also on anticoagulation with Eliquis 5 mg by mouth twice a day as the patient has DVT and history of hypercoagulable state. Hemodynamically stable. We are going to give this patient and paralytic holiday. She is receiving enteral feeding for nutritional support. She is currently on vital high protein at the rate of 10 mL an hour. At the same time, the patient has a tracheostomy tube which is a Shiley #8. Golden catheter is in place. She has a PICC line in the right upper extremity. He is receiving Lasix 40 mg IV on a daily basis and the patient is in a negative fluid balance of 1.4 L. 10/22/2021, the patient is being seen for a follow-up. Note that this yesterday, the patient was taken off the paralytics. The chest tubes were removed. The patient was kept on sedation with accommodation propofol and fentanyl. The PEEP was dropped down to 13. The patient was doing fine throughout the night and earlier this morning the patient desaturated. Pulse ox dropped and the patient was placed on 100% FiO2 along with a PEEP of 13. The patient became hypotensive and started on norepinephrine at 0.08 mcg/kg per minute. Subsequent chest x-ray showed a large and she pneumothorax on the right. The blood gases from this morning showed a pH of 7.46 with a pCO2 of 54 and pO2 of 59. The patient was peak airway pressure during and both the peak and static pressures were quite elevated in the high 40 range at 48 and 46 respectively. There was no air entry on the right. Immediately, and right- sided chest tube was inserted. The tension was released. The hemodynamics improved. The patient started turning his volumes back. I put her on pressure control mode of mechanical ventilation and she is currently a day rate of 26, pressure control of 25, FiO2 of 100% with a PEEP of 13. Generated tidal volumes around 3 80 mL and a follow-up chest x-ray on the blood gases are still pending for now. The patient remains sedated on a mechanical ventilator. The patient has a Shiley tracheostomy tube in place. This morning, she remains on a combin ation of propofol and fentanyl. White cell count is at 20 with a hemoglobin of 8.5 and a platelet count of 393. Rest of the electrolytes are normal, BUN is at 23 with a creatinine of 0.3. Sodium is at 137. The patient remains on and correlation with Eliquis 5 mg by mouth twice a day. She is on enteral feeding for nutritional support with vital high protein. Overall fluid balance over the past 24 hours has been -1.4 L. The patient is receiving daily Lasix as mentioned. Objective - Vital Signs Vital signs: Vital Signs Temp 98.3 F 10/22/21 04:00 Pulse 84 10/22/21 07:00 Resp 26 H 10/22/21 07:00 BP 114/57 10/22/21 07:00 Pulse Ox 95 10/22/21 07:00 Intake & Output 10/21/21 10/22/21 10/22/21 18:59 06:59 18:59 Intake Total 7848.166 0426.756 33 Output Total 1325 835 110 Balance -56.617 271.756 -77 Weight 90.5 kg Intake: IV 209 253 23 0.9 NS 170 220 20 pressure bag 39 33 3 Intake, IV Titration 819.383 563.756 Amount Clevidipine Butyrate 25 98.066 26.333 mg In Empty Bag 1 bag @ 1 MG/HR 2 mls/hr IV .Q24H [facility] Rx#:[id number] Norepinephrine 8 mg In 2.804 27.521 Sodium Chloride 0.9% 250 ml @ 0.05 MCG/KG/MIN 9. 143 mls/hr IV .Q24H [facility]RA[facility] Rx#:[id number] Rocuronium 400 mg In 101.533 Sodium Chloride 0.9% 100 ml @ 5 MCG/KG/MIN 9.954 mls/hr IV .Q14H4M [facility] Rx# :[id number] fentaNYL (PF) 2,500 mcg 250 232.07 In Sodium Chloride 0.9% 200 ml @ 0.5 MCG/KG/HR 4. 6 mls/hr IV .Q24H [facility] Rx# :[id number] propofoL 1,000 mg In 366.98 277.832 Empty Bag 1 bag @ Titrate IV .Q0M [facility] Rx#: [id number] Tube Feeding 150 140 10 Other 90 150 Output: Urine 1325 835 110 Other: Voiding Method Indwelling Catheter Indwelling Catheter ABP, PAP, CO, CI - Last Documented Arterial Blood Pressure 148/54 - Exam No acute distress, sedated and she is off paralysis, with tracheostomy tube in place. The patient has a #6 Shiley tracheostomy tube in place. No evidence of any subcutaneous emphysema. Head exam was generally normal. There was no scleral icterus or corneal arcus. Mucous membranes were moist. Neck was supple and without jugular venous distension, thyromegaly, or carotid bruits. Carotids were easily palpable bilaterally. There was no adenopathy Lungs revealed absent breath sounds on the right and a right-sided chest tube was inserted with improvement in the breast on the right. There was diminished breath sounds in the right prior to the chest tube insertion. Cardiac exam revealed the PMI to be normally situated and sized. The rhythm was regular and no extrasystoles were noted during several minutes of auscultation. The first and second heart sounds were normal and physiologic splitting of the second heart sound was noted. There were no murmurs, rubs, clicks, or gallops. Abdominal exam revealed normal bowel sounds. The abdomen was soft, non-tender, and without masses, organomegaly, or appreciable enlargement of the abdominal aorta. The patient has a PEG tube also in place Examination of the extremities revealed easily palpable radial, femoral and pedal pulses. There was no cyanosis, clubbing or edema. Examination of the skin revealed no evidence of significant rashes, suspicious appearing nevi or other concerning lesions. Neurologic examination cannot be assessed as the patient is currently sedated off paralysis. - Labs CBC & Chem 7: 10/22/21 03:35 10/22/21 03:35 Labs: Abnormal Lab Results - Last 24 Hours (Table) 10/21/21 10/21/21 10/22/21 Range/Units 11:53 17:40 00:27 WBC (3.8-10.6) k/uL RBC (3.80-5.40) m/uL Hgb (11.4-16.0) gm/dL Hct (34.0-46.0) % MCHC (31.0-37.0) g/dL RDW (11.5-15.5) % Neutrophils # (1.3-7.7) k/uL Monocytes # (0-1.0) k/uL ABG pH (7.35-7.45) ABG pCO2 (35-45) mmHg ABG pO2 (83-108) mmHg ABG HCO3 (21-25) mmol/L ABG Total CO2 (19-24) mmol/L ABG O2 Saturation (94-97) % Potassium (3.5-5.1) mmol/L Carbon Dioxide (22-30) mmol/L BUN (7-17) mg/dL Creatinine (0.52-1.04) mg/dL Glucose (74-99) mg/dL POC Glucose (mg/dL) 220 H 144 H 126 H (75-99) mg/dL Calcium (8.4-10.2) mg/dL 10/22/21 10/22/21 10/22/21 Range/Units 03:35 03:35 05:18 WBC 20.0 H (3.8-10.6) k/uL RBC 2.92 L (3.80-5.40) m/uL Hgb 8.5 L (11.4-16.0) gm/dL Hct 27.5 L (34.0-46.0) % MCHC 30.9 L (31.0-37.0) g/dL RDW 18.4 H (11.5-15.5) % Neutrophils # 16.0 H (1.3-7.7) k/uL Monocytes # 1.2 H (0-1.0) k/uL ABG pH (7.35-7.45) ABG pCO2 (35-45) mmHg ABG pO2 (83-108) mmHg ABG HCO3 (21-25) mmol/L ABG Total CO2 (19-24) mmol/L ABG O2 Saturation (94-97) % Potassium 3.3 L (3.5-5.1) mmol/L Carbon Dioxide 36 H (22-30) mmol/L BUN 23 H (7-17) mg/dL Creatinine 0.37 L (0.52-1.04) mg/dL Glucose 121 H (74-99) mg/dL POC Glucose (mg/dL) 117 H (75-99) mg/dL Calcium 8.3 L (8.4-10.2) mg/dL 10/22/21 Range/Units 05:23 WBC (3.8-10.6) k/uL RBC (3.80-5.40) m/uL Hgb (11.4-16.0) gm/dL Hct (34.0-46.0) % MCHC (31.0-37.0) g/dL RDW (11.5-15.5) % Neutrophils # (1.3-7.7) k/uL Monocytes # (0-1.0) k/uL ABG pH 7.46 H (7.35-7.45) ABG pCO2 54 H (35-45) mmHg ABG pO2 59 L* (83-108) mmHg ABG HCO3 39 H (21-25) mmol/L ABG Total CO2 40 H (19-24) mmol/L ABG O2 Saturation 90.9 L (94-97) % Potassium (3.5-5.1) mmol/L Carbon Dioxide (22-30) mmol/L BUN (7-17) mg/dL Creatinine (0.52-1.04) mg/dL Glucose (74-99) mg/dL POC Glucose (mg/dL) (75-99) mg/dL Calcium (8.4-10.2) mg/dL Assessment and Plan Plan: 1 Acute hypoxemic respiratory failure/ARDS secondary to coronavirus associated pneumonia, status post intubation, and mechanical ventilation on 09/25/2021.No evidence of pulmonary embolism on CT angiogram. The patient continues to have diffuse bilateral pulmonary infiltrates consistent with COVID 19 related pneumonia. Patient subsequently developed bilateral pneumothoraces. The patient has bilateral chest tubes and the chest tubes were inserted on 10/11/2021. The patient remains intubated on a mechanical ventilator. The patient has a tracheostomy on 10/14/2021 . The chest x-ray from today shows diffuse bilateral pulmonary infiltrates consistent with ARDS. The patient remains on anticoagulation with Eliquis. The patient had her chest tubes removed yesterday. Earlier this morning, the patient was found to have a tension pneumothorax on the right. The patient acutely became hypotensive, hypoxic and the patient's was identified to have a right-sided pneumothorax. A chest tube was inserted on an emergent basis with subsequent improvement in the airway pressures, oxygenation, hemodynamics. Patient is currently on a pressure control mode of mechanical ventilation. Necessary ventilators changes or rebound based on the blood. The chest x-ray findings. For now, the patient has a positive air leak through the right-sided chest that has been inserted. Post chest tube insertion chest x-ray still pending for now. Patient is off paralytics. The patient sedated with a combination of propofol and fentanyl. 2 acute COVID 19 related pneumonia 3 Acute bilateral pneumothoraces, status post bilateral chest tube placements, on 10/11/2021. subcutaneous emphysema, as a complication of mechanical ventilation and coronavirus associated pneumonia. No evidence of any air leak on the Pleur-evac. Noted this 70 output from the chest tube. 4 acute left lower extremity femoral DVT currently on Eliquis. The patient is known to have a Primary hypercoagulable state in the form of Leiden factor deficiency/factor V deficiency. The patient has been maintained on warfarin on outpatient basis. The patient is currently on Eliquis 5 mg by mouth twice a day. 5 Prior history of DVT. 6 History of fibromyalgia. 7 History of arthritis. 8 History of degenerative disc disease. 9 Mild transaminitis secondary to coronavirus infection. Plan Continue ventilator support for now. Patient is currently on a pressure control mode of mechanical ventilation with a pressure control of 25, PEEP is at 13, FiO2 is at 100% with a rate of 26. Follow-up chest x-ray is pending. Follow-up blood gases pending. Hemodynamically improved post chest tube insertion. Pressors will be discontinued gradually. Give the patient combination of propofol and fentanyl. The patient is off paralytics for now Continue Decadron and the reduced dose up to 4 mg by mouth daily Continue anticoagulation with Eliquis 5 mg by mouth twice a day enteral feeding for nutritional support, vital 1.2 @ 10cc/hr Prognosis remains poor. The patient is not having any major progress over the past several days. Obviously she carries a very poor prognosis. She is a case of post overnight he relates pneumonia/ARDS with prolonged respiratory failure. We'll continue to follow make further recommendations based on her progress. This is a critically care evaluation was done and more than 30 minutes. 3 Time with Patient: Greater than 30
--- NOTE | 2021-10-22 08:35 | P.PCN ---
Date of Procedure: 10/22/21 Preoperative Diagnosis: Tension pneumothorax, right-sided Postoperative Diagnosis: Tension pneumothorax, right-sided Procedure(s) Performed: Chest tube, right Anesthesia: local Surgeon: Armen Harris Finished Carpet Inspector #1: Ashley Granado Estimated Blood Loss (ml): 0 Pathology: none sent Condition: critical Disposition: ICU Operative Findings: A time-out was completed verifying correct patient, procedure, site, positioning, and special equipment if applicable. The patient was positioned appropriately for chest tube placement. The patient' s right chest was prepped and draped in sterile fashion. 1% Lidocaine was used to anesthetize the surrounding skin area. A 2 cm skin incision was made in the mid-axillary line at the inframammarycrease. Utilizing blunt dissection a subcutaneous tunnel was created cephalad just adjacent to the superior rib. The pleural space was entered bluntly and gush of air was observed. A finger was inserted into the pleural space to check for anatomy and guide tube insertion. A 28 F thoracostomy tube was inserted using a Thao clamp and positioned appropriately. The chest tube was sutured securely to the skin and a sterile dressing applied. A pleurevac was attached to the chest tube and a chest x-ray obtained. I p ersonally performed this procedure and I was was present for the entire procedure. Estimated Blood Loss: 0 cc The patient tolerated the procedure well and there were no complications.
--- NOTE | 2021-10-22 08:46 | XR ---
EXAMINATION TYPE: XR chest 1V portable DATE OF EXAM: 10/22/2021 HISTORY: Shortness of breath. COMPARISON: Earlier in the day TECHNIQUE: Single view of the chest is submitted. FINDINGS: Right-sided chest tube has been placed with marked improvement of right-sided pneumothorax however th ere is persistent pneumothorax identified estimated at approximately 15%. Interstitial infiltrates persist bilaterally. Tracheostomy tube. The heart is stable. Hilar and mediastinal structures are within normal limits. Degenerative changes are seen of the dorsal spine. IMPRESSION: 1. Right-sided chest tube has been placed with marked improvement of right-sided pneumothorax howeve r there is persistent pneumothorax identified estimated at approximately 15%.
[2021-10-22] MEDS: CHLORHEXIDINE GLUCONATE 15 ML CUP MUCOUS MEM SCH ×2 (09:02→19:56)
[2021-10-22] MEDS: dexAMETHasone 2 MG TAB PO SCH (09:02)
[2021-10-22] MEDS: FUROSEMIDE 10 MG/ML 4 ML VIAL IV SCH (09:03)
[2021-10-22] MEDS: APIXABAN 5 MG TAB PO SCH ×2 (09:03→19:56)
[2021-10-22] MEDS: ZINC SULFATE 220 MG CAP PO SCH (09:03)
[2021-10-22] MEDS: ASCORBIC ACID 500 MG TAB PO SCH ×2 (09:03→19:56)
[2021-10-22] MEDS: PANTOPRAZOLE 40 MG/10 ML VIAL IV SCH (09:04)
[2021-10-22 09:05] LABS: ABG Base Excess 14.5 mmol/L; ABG HCO3 38 mmol/L (21-25); ABG Oxygen Saturation 99.9 % (94-97); ABG PCO2 53 mmHg (35-45); ABG PH 7.47 (7.35-7.45); ABG PO2 138 mmHg (83-108); ABG TCO2 40 mmol/L (19-24); Allen Test Performed? Yes
[2021-10-22] MEDS: ARTIFICIAL TEARS-HYPROMELLOSE DROPS 15 ML BTL BOTH EYES SCH ×4 (09:05→21:50)
[2021-10-22] MEDS: NOREPINEPHRINE 8 MG in SODIUM CHLORIDE 0.9% 250 ML IV SCH (09:07)
[2021-10-22 12:06] LABS: Glucose,Whole Blood 169 mg/dL (75-99)
[2021-10-22] MEDS: LACTATED RINGERS 1,000 ML IV SCH (17:05)
[2021-10-22 18:02] LABS: Glucose,Whole Blood 153 mg/dL (75-99)
[2021-10-22 22:42] LABS: ABG Base Excess 16.8 mmol/L; ABG HCO3 38 mmol/L (21-25); ABG Oxygen Saturation 85.6 % (94-97); ABG PCO2 37 mmHg (35-45); ABG TCO2 39 mmol/L (19-24)
[2021-10-22 22:54] LABS: ABG PH 7.63 (7.35-7.45); ABG PO2 43 mmHg (83-108); Allen Test Performed? NO
--- NOTE | 2021-10-22 23:01 | XR ---
EXAMINATION TYPE: XR chest 1V portable DATE OF EXAM: 10/22/2021 COMPARISON: NONE HISTORY: Chest tube hypoxemia TECHNIQUE: FINDINGS: There is right-sided chest tube over the right mid lung field. There is approximate 70% rig ht-sided pneumothorax. No tension. There is tracheostomy tube. There is a right subclavian catheter w ith tip in the superior cava. There is infiltrate and atelectasis in the mid and lower lung patterson. IMPRESSION: Pneumothorax has increased compared to the exam. Morning. Pulmonary interstitial infiltra sera increased.
[2021-10-22 23:17] LABS: Glucose,Whole Blood 106 mg/dL (75-99)
[2021-10-23] MEDS: fentaNYL (PF) 2,500 MCG in SODIUM CHLORIDE 0.9% 200 ML IV SCH ×2 (01:07→17:12)
[2021-10-23] MEDS: SODIUM CHLORIDE 0.9% 1,000 ML IV SCH (02:12)
[2021-10-23 04:31] LABS: Anisocytosis Slight; Basophils % (A) 0 %; Eosinophils # (A) 0.1 k/uL (0-0.7); Eosinophils % (A) 1 %; HCT 24.9 % (34.0-46.0); HGB 7.7 gm/dL (11.4-16.0); Hypochromasia Marked; Lymphocytes # (A) 2.2 k/uL (1.0-4.8); Lymphocytes % (A) 16 %; MCHC 31.1 g/dL (31.0-37.0); MCV 93.2 fL (80.0-100.0); Mean Platelet Volume 8.5; Monocytes # (A) 0.6 k/uL (0-1.0); Monocytes % (A) 4 %; Neutrophils # (A) 10.6 k/uL (1.3-7.7); Neutrophils % (A) 78 %; Platelet Count 314 k/uL (150-450); Poikilocytosis Moderate; RBC 2.67 m/uL (3.80-5.40); WBC 13.7 k/uL (3.8-10.6)
[2021-10-23 04:41] LABS: African American GFR (CKD) >90 (>60 ml/min/1.73 sqM); Anion Gap 1 mmol/L; Blood Urea Nitrogen 19 mg/dL (7-17); Calcium 8.1 mg/dL (8.4-10.2); Carbon Dioxide 37 mmol/L (22-30); Chloride 102 mmol/L (98-107); Glucose 94 mg/dL (74-99); Non-African American GFR(CKD) >90 (>60 ml/min/1.73 sqM); Sodium 140 mmol/L (137-145)
[2021-10-23 05:52] LABS: Glucose,Whole Blood 109 mg/dL (75-99)
[2021-10-23] MEDS: POTASSIUM BICARBONATE/CIT AC 20 MEQ TABLET.EFF NG-TUBE SCH ×5 (05:52→16:35)
[2021-10-23 05:57] LABS: ABG Base Excess 15.3 mmol/L; ABG HCO3 37 mmol/L (21-25); ABG Oxygen Saturation 94.7 % (94-97); ABG PCO2 39 mmHg (35-45); ABG PO2 63 mmHg (83-108); ABG TCO2 38 mmol/L (19-24)
[2021-10-23] MEDS: INSULIN ASPART (NovoLOG) 100 UNIT/ML VIAL SQ SCH ×4 (05:58→23:19)
[2021-10-23 05:59] LABS: ABG PH 7.58 (7.35-7.45); Allen Test Performed? No
--- NOTE | 2021-10-23 06:06 | XR ---
EXAMINATION TYPE: XR chest 1V portable DATE OF EXAM: 10/23/2021 CLINICAL HISTORY: Difficulty breathing progress study. TECHNIQUE: Single AP portable semiupright view of the chest is obtained. COMPARISON: Chest x-ray from one day earlier and older studies. FINDINGS: Stable right-sided PICC line. Stable tracheostomy tube. Stable right-sided chest tube . Persistent bilateral multifocal and confluent increased opacities greatest in the mid to lower lungs. Cardiac silhouette size is stable and upper limits of normal. Right-sided pneumothorax redemonstrat ed though improved from one day earlier now estimated near 10-15%. Anterior fusion plate in the cervi maciej spine is noted. IMPRESSION: Bilateral Multifocal and confluent opacities greatest in the mid to lower lungs consisten t with covid-19 infection and/or ARDS are redemonstrated and stable. Right-sided chest tube with smal l apical pneumothorax estimated 10-15% improved from one day earlier.
[2021-10-23] MEDS: NOREPINEPHRINE 8 MG in SODIUM CHLORIDE 0.9% 250 ML IV SCH ×2 (06:57→08:55)
--- NOTE | 2021-10-23 08:27 | P.PN ---
Subjective Progress Note Date: 10/23/21 61-year-old female who is in the MICU with COVID-19 related pneumonia. The patient stated that she was having symptoms since September 10. The symptoms included shortness of breath, cough, fatigue, muscle aches, and generally just not feeling well. The patient is non vaccinated. She tested positive for coronavirus on September 23. The patient takes Coumadin chronically for her factor V or Leiden factor deficiency. Initially, on room air, her saturations were in the 70s, and on a nonrebreather, only got up into the mid 80s. In addition to the primary hypercoagulable state, she has a history of DVT, fibromyalgia, pneumonia, arthritis, and degenerative disc disease. She is a lifelong nonsmoker. Chest x-ray reveals diffuse bilateral infiltrates. CT angiogram was negative for pulmonary embolism, but did show diffuse infiltrates consistent with coronavirus pneumonia. Subsequently, the patient was placed on a BiPAP for respiratory support. Following that, on 09/25/2021 required intubation and mechanical ventilation. On today's evaluation of 10/18/2021, the patient remains on a mechanical ventilator. The patient remains sedated and paralyzed. She had a complicated COVID 19 pneumonia course here in the intensive care unit. The patient developed bilateral pneumothoraces and currently she still has bilateral chest tubes in place. This morning, the patient remains sedated and the patient is currently on propofol at 50 mcg/kg per minute, fentanyl at 2 mcg/kg per minute and the patient is paralyzed with rocuronium running at 10 g. The patient is adequately sedated and paralyzed for now. This morning, she is on a mechanical ventilator on assist control mode at the rate of 30, tidal volume of 420, FiO2 of 70% with a PEEP of 16. Peak airway pressure is 45. The static air pressure is 42. The chest x-ray from today showing no evidence of any pneumothorax. There is still diffuse bilateral pulmonary infiltrates. There are bilateral chest tubes. Chest tubes are in good location. No evidence of any pneumothorax. The blood gases from this morning shows a pH of 7.47 with a pCO2 of 49 and pO2 of 49 and this was done and FiO2 of 60% and based on his affect was brought up to 70%. Meanwhile, the patient is on IV fluids. She is on normal saline at the rate of 20 mL an hour. Norepinephrine is being is less for hemodynamic support and it is running at 0.08 mcg/kg/m.. The patient remains on Decadron 6 mg by mouth on a daily basis and the patient is also on antic oagulation with Eliquis 5 mg by mouth twice a day. All of the cultures of been negative. The white cell count from this morning is at 19.7 with a hemoglobin of 8.3 and platelet count of 321. Sodium is at 139 with a potassium level of 3.3 and currently is 102 with a bicarb is of 36 creatinine is at 23 with a creatinine of 0.5. LFTs are all within normal limits. Noted the patient underwent a bronchoscopy on 10/16/2020. This was done strictly for airway inspection. No cultures were obtained. The patient is currently on no antibiotics. Inflammatory markers showed a pro-calcitonin level of 0.14 from 10/05/2020 and the patient also has LDH of 531 from 10/01/2021. The patient has a PICC line in her right upper extremity. There is a double-lumen PICC line. 10/19/2021, the patient is being seen for a follow-up. The patient remains essentially the same as yesterday. No major interval change management analyst the past 24 hours. She remains on propofol running at 60 mg/kg per minute and fentanyl is running at 2 mcg/kg/h and the patient is also paralyzed utilizing rocuronium running at 10 g. The patient is well sedated and paralyzed for now. She is afebrile and she is hemodynamically stable. She remains on assist control mode with a tidal volume of 420, rate of 30, FiO2 of 65% with a PEEP of 16. Peak pressures remains elevated at 46. Static pressures around 43. Chest x-ray shows no interval change compared to yesterday. No evidence of any pneumothorax. There is diffuse bilateral pulmonary infiltrates. There is evidence of bilateral chest tubes. No evidence of any air leaks through the chest tubes. Output from the chest tube is minimal at this point in time and is essentially serosanguineous. Blood gases from today showed a pH of 7.55 with a pCO2 of 41 and pO2 of 66. Patient is having significant fluctuation in her blood pressure. Yesterday for example she was on low-dose pressors. Subsequently, her blood pressure went up as high as systolic over the 180 range. The pressors were discontinued and the patient was started on Cleviprex drip for blood pressure control. Currently she is off all these drips. Her blood pressure is slightly hypertensive on mornings evaluation. Her white cell count is at 14.8 with a hemoglobin of 7.6 and a platelet count of 342. Sodium is at 139, BUN is at 24 with a creatinine of 0.5 and a blood sugar is at 100. LFTs are normal. Cultures are all negative. She has a double-lumen PICC line in her right upper extremity. Inflammatory markers have been essentially dropping and the patient is not receiving any antibiotic coverage for now. She remains on Decadron at a dose of 6 mg by mouth daily basis and she remains also on Eliquis 5 mg by mouth twice a day. She is receiving enteral feeding for nutritional support. She is currently on vital AF at the rate of 10 mL an hour. IV fluids are currently at KVO. She is receiving daily Lasix 40 mg IV every 24 hours. Fluid balance is negative approximately 700 mL over the past 24 hours. On 2021, the patient is being seen for a follow-up. This morning, she is on propofol running at the rate of 50 mcg/kg per minute and the patient is also on fentanyl running at 1.5 mcg/kg/h. The patient is still on rocuronium for paralysis. Chest x-ray shows adequate expansion of both lungs. No evidence of any pneumothorax. No evidence of any subcutaneous emphysema. Chest tubes are in place. ET tube is in a good location. No evidence of any air leaks of the chest tube and I think it's reasonable to remove both of the chest tubes out today. Meanwhile, the patient remains on a mechanical ventilator. She is on assist-control at the rate of 26 and a tidal volume of 400 and FiO2 of 60% with a PEEP of 16. Peak airway pressures around 38. Static pressures 36. The pH is at 7.49 with a pCO2 of 48 and pO2 of 65. No respiratory secretions for now. She is afebrile. She is hemodynamically stable. She is on no pressors. She is still on Decadron 6 mg on a daily basis. Anticoagulations with Eliquis 5 mg by mouth twice a day The patient also had a DVT of the left lower extremity and previous history of hypercoagulability. Enterofeeding is still in the form of vital AF at the rate of 10 mL an hour. The patient is also receiving daily Lasix 40 mg IV every 24 hours. She is off Cleviprex for now. The blood work from today shows a white cell count of 15.5 with a hemoglobin of 8.4 and the plated count of 295. The sodium is 140 with a potassium level of 3.1, serum bicarbonate of 36 with a BUN of 23 and a creatinine of 0.5. LFTs are all within normal limits. 10/21 2021, seeing the patient for a follow-up. I had a lengthy discussion with the yesterday. Unfortunately, prognosis been limited on this patient. She remains on a propofol and fentanyl combination. Propofol is running at 60 mcg/kg per minute and fentanyl is running at 1.5 mcg/kg per hour. The patient continues to be paralyzed with rocuronium. We managed to pull of the chest tubes today. The patient did not have any pneumothorax and today's chest x-ray. No evidence of any air leak for the past several days. Without it's reasonable to follow the chest tubes on both sides. She is on assist control mode. Overnight, the patient she did have some limited desaturation. Blood gas showed a pH of 7.46 with a pCO2 of 53 and pO2 of 58 and this was on FiO2 of 70% with a PEEP of 15. Based on that, the fight was brought up to 80% and currently her pulse ox is 99-100%. Based on that, drop the FiO2 down to 70%. Adenopathy down to 14. Her current tidal volumes of 400 with a rate of 26. Chest x-ray still showing unchanged bilateral pulmonary infiltrates. Hemoglobin is at 8.4. White cell count is at 14.4. Electrolytes are normal. Creatinine is at 0.5. Blood sugars of 116. No recent inflammatory markers checked. She remains on Decadron and current dose is at 6 mg by mouth daily. She remains also on anticoagulation with Eliquis 5 mg by mouth twice a day as the patient has DVT and history of hypercoagulable state. Hemodynamically stable. We are going to give this patient and paralytic holiday. She is receiving enteral feeding for nutritional support. She is currently on vital high protein at the rate of 10 mL an hour. At the same time, the patient has a tracheostomy tube which is a Shiley #8. Golden catheter is in place. She has a PICC line in the right upper extremity. He is receiving Lasix 40 mg IV on a daily basis and the patient is in a negative fluid balance of 1.4 L. 10/22/2021, the patient is being seen for a follow-up. Note that this yesterday, the patient was taken off the paralytics. The chest tubes were removed. The patient was kept on sedation with accommodation propofol and fentanyl. The PEEP was dropped down to 13. The patient was doing fine throughout the night and earlier this morning the patient desaturated. Pulse ox dropped and the patient was placed on 100% FiO2 along with a PEEP of 13. The patient became hypotensive and started on norepinephrine at 0.08 mcg/kg per minute. Subsequent chest x-ray showed a large and she pneumothorax on the right. The blood gases from this morning showed a pH of 7.46 with a pCO2 of 54 and pO2 of 59. The patient was peak airway pressure during and both the peak and static pressures were quite elevated in the high 40 range at 48 and 46 respectively. There was no air entry on the right. Immediately, and right- sided chest tube was inserted. The tension was released. The hemodynamics improved. The patient started turning his volumes back. I put her on pressure control mode of mechanical ventilation and she is currently a day rate of 26, pressure control of 25, FiO2 of 100% with a PEEP of 13. Generated tidal volumes around 3 80 mL and a follow-up chest x-ray on the blood gases are still pending for now. The patient remains sedated on a mechanical ventilator. The patient has a Shiley tracheostomy tube in place. This morning, she remains on a combin ation of propofol and fentanyl. White cell count is at 20 with a hemoglobin of 8.5 and a platelet count of 393. Rest of the electrolytes are normal, BUN is at 23 with a creatinine of 0.3. Sodium is at 137. The patient remains on and correlation with Eliquis 5 mg by mouth twice a day. She is on enteral feeding for nutritional support with vital high protein. Overall fluid balance over the past 24 hours has been -1.4 L. The patient is receiving daily Lasix as mentioned. 10/23/2021, seeing the patient for a follow-up. The patient was having some issues with right-sided pneumothorax. Yesterday morning, the patient had a tension pneumothorax on the right and immediately chest tube was inserted. There was adequate expansion of the right lung. Subsequently, at around 10 PM yesterday, the patient developed again issues with pneumothorax. The chest tube had to be many plated. I repeated the chest x-ray and a chest tube was still in the right hemithorax. After administrating the chest tube, air leak started again and the right lung partially expanded. There was improvement in o xygenation at that point. Note that on and off, the patient was requiring pressors overnight. This morning, she is off the pressors. She is on a pressure control mode of mechanical ventilation. Her pressure control is at 25 with a PEEP of 13 with an FiO2 of 100% and the rate of 26. Morning blood gases showed a pH of 7.58 with a pCO2 of 39 and pO2 of 63 and this was done and FiO2 of 90%. Current pulse ox is 91% and the patient's FiO2 is at 80%. She has persistent air leak in the right-sided chest tube. Output in terms of fluid is minimal in the order of 120 mL since the chest was inserted yesterday morning. The patient remains off paralytics patient remains on propofol at a dose of 50 mg/kg per minute and she remains also on fentanyl. She is off Nimbex for now. She is receiving enteral feeding for nutritional support via PEG tube. She remains on long-term and to coagulation with Eliquis 5 mg by mouth twice a day. Cardiac rhythm is sinus. In terms of her blood work from today, the patient has a white cell count of 13.7 with a hemoglobin of 7.7 and the platelet count of 31 4. Sodium is at 140 and the potassium needs to be replaced at 3.0. Serum bicarb is at 37. Creatinine is at 0.44. No other issues otherwise. Activation for now is the persistent air leak and persistent pneumothorax on the right lung. The size of the pneumothorax is improved and is not affecting his oxygenation significantly. As such, this will be monitored. Right-sided chest tube is functional and there is ongoing air leak. Objective - Vital Signs Vital signs: Vital Signs Temp 98.9 F 10/23/21 04:00 Pulse 105 H 10/23/21 07:00 Resp 27 H 10/23/21 07:00 BP 108/53 10/23/21 06:00 Pulse Ox 100 10/23/21 07:00 Intake & Output 10/22/21 10/23/21 10/23/21 18:59 06:59 18:59 Intake Total 381.183 9039.238 34.829 Output Total 2510 700 30 Balance -1623.732 540.238 4.829 Weight 90.5 kg 91.9 kg Intake: IV 276 276 23 0.9 NS 240 240 20 pressure bag 36 36 3 Intake, IV Titration 400.268 754.238 1.829 Amount Norepinephrine 8 mg In 100.268 127.346 1.829 Sodium Chloride 0.9% 250 ml @ 0.05 MCG/KG/MIN 9. 143 mls/hr IV .Q24H [facility] Rx#:[id number] fentaNYL (PF) 2,500 mcg 332.953 In Sodium Chloride 0.9% 200 ml @ 0.5 MCG/KG/HR 4. 6 mls/hr IV .Q24H [facility] Rx# :[id number] propofoL 1,000 mg In 300 293.939 Empty Bag 1 bag @ Titrate IV .Q0M [facility] Rx#: [id number] Tube Feeding 130 120 10 Other 80 90 Output: Chest Tube Drainage 50 80 Chest Tube Right 50 80 Urine 2460 620 30 Other: Voiding Method Indwelling Catheter Indwelling Catheter ABP, PAP, CO, CI - Last Documented Arterial Blood Pressure 133/52 - Exam No acute distress, sedated and she is off paralysis, with tracheostomy tube in place. The patient has a #6 Shiley tracheostomy tube in place. No evidence of any subcutaneous emphysema. Head exam was generally normal. There was no scleral icterus or corneal arcus. Mucous membranes were moist. Neck was supple and without jugular venous distension, thyromegaly, or carotid bruits. Carotids were easily palpable bilaterally. There was no adenopathy Lungs revealed absent breath sounds on the right and a right-sided chest tube was inserted with improvement in the breast on the right. There was diminished breath sounds in the right prior to the chest tube insertion. The patient has p ersistent air leak and the chest tube. Total amount of output has been 120 mL since the chest tube insertion yesterday. Cardiac exam revealed the PMI to be normally situated and sized. The rhythm was regular and no extrasystoles were noted during several minutes of auscultation. The first and second heart sounds were normal and physiologic splitting of the second heart sound was noted. There were no murmurs, rubs, clicks, or gallops. Abdominal exam revealed normal bowel sounds. The abdomen was soft, non-tender, and without masses, organomegaly, or appreciable enlargement of the abdominal aorta. The patient has a PEG tube also in place Examination of the extremities revealed easily palpable radial, femoral and pedal pulses. There was no cyanosis, clubbing or edema. Examination of the skin revealed no evidence of significant rashes, suspicious appearing nevi or other concerning lesions. Neurologic examination cannot be assessed as the patient is currently sedated off paralysis. - Labs CBC & Chem 7: 10/23/21 04:20 10/23/21 04:20 Labs: Abnormal Lab Results - Last 24 Hours (Table) 10/22/21 10/22/21 10/22/21 Range/Units 08:55 12:05 18:00 WBC (3.8-10.6) k/uL RBC (3.80-5.40) m/uL Hgb (11.4-16.0) gm/dL Hct (34.0-46.0) % RDW (11.5-15.5) % Neutrophils # (1.3-7.7) k/uL ABG pH 7.47 H (7.35-7.45) ABG pCO2 53 H (35-45) mmHg ABG pO2 138 H (83-108) mmHg ABG HCO3 38 H (21-25) mmol/L ABG Total CO2 40 H (19-24) mmol/L ABG O2 Saturation 99.9 H (94-97) % Potassium (3.5-5.1) mmol/L Carbon Dioxide (22-30) mmol/L BUN (7-17) mg/dL Creatinine (0.52-1.04) mg/dL POC Glucose (mg/dL) 169 H 153 H (75-99) mg/dL Calcium (8.4-10.2) mg/dL 10/22/21 10/22/21 10/23/21 Range/Units 22:36 23:16 04:20 WBC 13.7 H (3.8-10.6) k/uL RBC 2.67 L (3.80-5.40) m/uL Hgb 7.7 L (11.4-16.0) gm/dL Hct 24.9 L (34.0-46.0) % RDW 18.0 H (11.5-15.5) % Neutrophils # 10.6 H (1.3-7.7) k/uL ABG pH 7.63 H* (7.35-7.45) ABG pCO2 (35-45) mmHg ABG pO2 43 L* (83-108) mmHg ABG HCO3 38 H (21-25) mmol/L ABG Total CO2 39 H (19-24) mmol/L ABG O2 Saturation 85.6 L (94-97) % Potassium (3.5-5.1) mmol/L Carbon Dioxide (22-30) mmol/L BUN (7-17) mg/dL Creatinine (0.52-1.04) mg/dL POC Glucose (mg/dL) 106 H (75-99) mg/dL Calcium (8.4-10.2) mg/dL 10/23/21 10/23/21 10/23/21 Range/Units 04:20 05:43 05:49 WBC (3.8-10.6) k/uL RBC (3.80-5.40) m/uL Hgb (11.4-16.0) gm/dL Hct (34.0-46.0) % RDW (11.5-15.5) % Neutrophils # (1.3-7.7) k/uL ABG pH 7.58 H* (7.35-7.45) ABG pCO2 (35-45) mmHg ABG pO2 63 L (83-108) mmHg ABG HCO3 37 H (21-25) mmol/L ABG Total CO2 38 H (19-24) mmol/L ABG O2 Saturation (94-97) % Potassium 3.0 L (3.5-5.1) mmol/L Carbon Dioxide 37 H (22-30) mmol/L BUN 19 H (7-17) mg/dL Creatinine 0.44 L (0.52-1.04) mg/dL POC Glucose (mg/dL) 109 H (75-99) mg/dL Calcium 8.1 L (8.4-10.2) mg/dL Assessment and Plan Plan: 1 Acute hypoxemic respiratory failure/ARDS secondary to coronavirus associated pneumonia, status post intubation, and mechanical ventilation on 09/25/2021.No evidence of pulmonary embolism on CT angiogram. The patient continues to have diffuse bilateral pulmonary infiltrates consistent with COVID 19 related pneumonia. Patient subsequently developed bilateral pneumothoraces. The patient has bilateral chest tubes and the chest tubes were inserted on 10/11/2021. The patient remains intubated on a mechanical ventilator. The patient has a tracheostomy on 10/14/2021 . The chest x-ray from today shows diffuse bilateral pulmonary infiltrates consistent with ARDS. The patient remains on anticoagulation with Eliquis. The patient had her chest tubes removed yesterday. Earlier this morning, the patient was found to have a tension pneumothorax on the right. The patient acutely became hypotensive, hypoxic and the patient's was identified to have a right-sided pneumothorax. A chest tube was inserted on an emergent basis with subsequent improvement in the airway pressures, oxygenation, hemodynamics. Overnight, the patient continued to have issues with right-sided pneumothorax. There was recurrence in the right-sided pneumothorax. The chest tube was manipulated. Air leak is present for now and the patient has persistent air leak with each breath. Right lung is expanded and there is some residual pneumothorax in order of 10% in the right lung. Oxygenation is improved. No evidence of a tension pneumothorax. The patient's hemodynamics is also improvement in the patient is off pressors for now. Patient is currently on a pressure control mode of mechanical ventilation. 2 acute COVID 19 related pneumonia 3 Acute bilateral pneumothoraces, status post bilateral chest tube placements, on 10/11/2021. subcutaneous emphysema, as a complication of mechanical ventilation and coronavirus associated pneumonia. The bilateral chest tubes were removed on 10/21/2021. The right-sided chest tube was reinserted on 10/22/2021 for a recurrent right-sided pneumothorax and there is persistent air leak and persistent pneumothorax on the right. 4 acute left lower extremity femoral DVT currently on Eliquis. The patient is known to have a Primary hypercoagulable state in the form of Leiden factor deficiency/factor V deficiency. The patient has been maintained on warfarin on outpatient basis. The patient is currently on Eliquis 5 mg by mouth twice a day. 5 Prior history of DVT. 6 History of fibromyalgia. 7 History of arthritis. 8 History of degenerative disc disease. 9 Mild transaminitis secondary to coronavirus infection. Plan Continue ventilator support for now. Dropped a pressure control to 22 cm of water and keep the FiO2 at 80% with a PEEP of 13. Monitor the output from the chest tube and monitor the air leak We'll need to repeat chest x-ray prominent around 2 PM today Repeat also the blood gases on the same time No need for paralytics Continue propofol and fentanyl Continue Decadron and the reduced dose up to 4 mg by mouth daily Continue anticoagulation with Eliquis 5 mg by mouth twice a day enteral feeding for nutritional support, vital 1.2 @ 10cc/hr Prognosis remains poor. The patient is not having any major progress over the past several days. Obviously she carries a very poor prognosis. She is a case of post overnight he relates pneumonia/ARDS with prolonged respiratory failure. We'll continue to follow make further recommendations based on her progress. This is a critically care evaluation was done and more than 30 minutes. 3 Time with Patient: Greater than 30
[2021-10-23] MEDS: ARTIFICIAL TEARS-HYPROMELLOSE DROPS 15 ML BTL BOTH EYES SCH ×4 (09:00→23:18)
[2021-10-23] MEDS: dexAMETHasone 2 MG TAB PO SCH (09:03)
[2021-10-23] MEDS: APIXABAN 5 MG TAB PO SCH ×2 (09:03→20:15)
[2021-10-23] MEDS: ASCORBIC ACID 500 MG TAB PO SCH ×2 (09:03→20:15)
[2021-10-23] MEDS: ZINC SULFATE 220 MG CAP PO SCH (09:03)
[2021-10-23] MEDS: FUROSEMIDE 10 MG/ML 4 ML VIAL IV SCH (09:04)
[2021-10-23] MEDS: CHLORHEXIDINE GLUCONATE 15 ML CUP MUCOUS MEM SCH ×2 (09:04→20:15)
[2021-10-23] MEDS: PANTOPRAZOLE 40 MG/10 ML VIAL IV SCH (09:04)
[2021-10-23 11:45] LABS: Glucose,Whole Blood 184 mg/dL (75-99)
[2021-10-23] MEDS: LACTATED RINGERS 1,000 ML IV SCH (12:22)
--- NOTE | 2021-10-23 14:07 | XR ---
EXAMINATION TYPE: XR chest 1V portable DATE OF EXAM: 10/23/2021 COMPARISON: Chest radiograph 10/22/2021 HISTORY: Shortness of breath. COMPARISON: Earlier in the day TECHNIQUE: Single view of the chest is submitted. FINDINGS: Right-sided chest tube tip over the right midlung in similar position to prior. Partially visualize d ACDF. Interval increase in the size of the right-sided pneumothorax estimated at approximately 25%. There i s now a basilar component of the pneumothorax as well. Interstitial infiltrates persist bilaterally. Tracheostomy tube. The heart is stable. Hilar and mediastinal structures are within normal limits. IMPRESSION: 1. Interval increase in the size of the right-sided pneumothorax estimated at approximately 25%, pre viously 15%.
[2021-10-23] MEDS ORDERED: Potassium Replacement Protocol 1 EACH MISC MISCELLANE PRN (14:27)
[2021-10-23 14:48] LABS: ABG Base Excess 14.4 mmol/L; ABG HCO3 38 mmol/L (21-25); ABG PCO2 48 mmHg (35-45); ABG PO2 167 mmHg (83-108); ABG TCO2 39 mmol/L (19-24)
[2021-10-23 14:49] LABS: Allen Test Performed? no
[2021-10-23 17:40] LABS: Glucose,Whole Blood 191 mg/dL (75-99)
[2021-10-23 23:16] LABS: Glucose,Whole Blood 131 mg/dL (75-99)
[2021-10-24 04:27] LABS: Anisocytosis Slight; HCT 23.8 % (34.0-46.0); HGB 7.1 gm/dL (11.4-16.0); Hypochromasia Marked; MCH 27.7 pg (25.0-35.0); MCHC 29.7 g/dL (31.0-37.0); MCV 93.3 fL (80.0-100.0); Mean Platelet Volume 9.2; Platelet Count 317 k/uL (150-450); Poikilocytosis Slight; RBC 2.55 m/uL (3.80-5.40); RDW 17.1 % (11.5-15.5); WBC 14.2 k/uL (3.8-10.6)
[2021-10-24] MEDS: ROCURONIUM 400 MG in SODIUM CHLORIDE 0.9% 100 ML IV SCH ×3 (04:28→23:38)
[2021-10-24] MEDS: SODIUM CHLORIDE 0.9% 1,000 ML IV SCH ×2 (04:29→23:38)
[2021-10-24 05:10] LABS: African American GFR (CKD) >90 (>60 ml/min/1.73 sqM); Anion Gap -2 mmol/L; Blood Urea Nitrogen 20 mg/dL (7-17); Calcium 7.8 mg/dL (8.4-10.2); Carbon Dioxide 38 mmol/L (22-30); Chloride 104 mmol/L (98-107); Glucose 103 mg/dL (74-99); Non-African American GFR(CKD) >90 (>60 ml/min/1.73 sqM); Potassium 3.4 mmol/L (3.5-5.1); Sodium 140 mmol/L (137-145)
[2021-10-24 05:25] LABS: Glucose,Whole Blood 121 mg/dL (75-99)
[2021-10-24] MEDS: POTASSIUM BICARBONATE/CIT AC 20 MEQ TABLET.EFF NG-TUBE SCH ×4 (05:36→14:41)
[2021-10-24] MEDS: INSULIN ASPART (NovoLOG) 100 UNIT/ML VIAL SQ SCH ×4 (05:36→23:36)
[2021-10-24 06:00] LABS: ABG Base Excess 13.9 mmol/L; ABG HCO3 37 mmol/L (21-25); ABG PCO2 47 mmHg (35-45); ABG PO2 96 mmHg (83-108); ABG TCO2 39 mmol/L (19-24); Allen Test Performed? Yes
--- NOTE | 2021-10-24 06:22 | XR ---
EXAMINATION TYPE: XR chest 1V portable DATE OF EXAM: 10/24/2021 CLINICAL HISTORY: Difficulty breathing progress study. TECHNIQUE: Single AP portable semiupright view of the chest is obtained. COMPARISON: Chest x-ray from one day earlier and older studies. FINDINGS: Stable right-sided PICC line. Stable tracheostomy tube. Stable right-sided chest tube . Persistent bilateral multifocal and confluent increased opacities. Cardiac silhouette size is stable and upper limits of normal. Right-sided pneumothorax redemonstrated though improved from one day ear lier now estimated near 10-15% at the upper aspect. Pneumomediastinum is suspected. IMPRESSION: Bilateral Multifocal and confluent opacities consistent with covid-19 infection and/or AR DS are redemonstrated and stable. Right-sided chest tube with small apical pneumothorax estimated 10- 15% improved from one day earlier. Pneumomediastinum noted.
[2021-10-24] MEDS: fentaNYL (PF) 2,500 MCG in SODIUM CHLORIDE 0.9% 200 ML IV SCH ×2 (08:37→18:22)
[2021-10-24] MEDS: NOREPINEPHRINE 8 MG in SODIUM CHLORIDE 0.9% 250 ML IV SCH ×3 (09:04→23:39)
[2021-10-24] MEDS: PANTOPRAZOLE 40 MG/10 ML VIAL IV SCH (09:10)
[2021-10-24] MEDS: APIXABAN 5 MG TAB PO SCH ×2 (09:10→20:30)
[2021-10-24] MEDS: FUROSEMIDE 10 MG/ML 4 ML VIAL IV SCH (09:10)
[2021-10-24] MEDS: CHLORHEXIDINE GLUCONATE 15 ML CUP MUCOUS MEM SCH ×2 (09:10→20:30)
[2021-10-24] MEDS: ARTIFICIAL TEARS-HYPROMELLOSE DROPS 15 ML BTL BOTH EYES SCH ×4 (09:11→21:32)
[2021-10-24] MEDS: ASCORBIC ACID 500 MG TAB PO SCH ×2 (09:11→20:30)
[2021-10-24] MEDS: dexAMETHasone 2 MG TAB PO SCH (09:11)
[2021-10-24] MEDS: ERGOCALCIFEROL 1,250 MCG (50,000 IU) CAPSULE PO SCH (09:11)
[2021-10-24] MEDS: ZINC SULFATE 220 MG CAP PO SCH (09:11)
--- NOTE | 2021-10-24 10:21 | P.PN ---
Subjective Progress Note Date: 10/24/21 61-year-old female who is in the MICU with COVID-19 related pneumonia. The patient stated that she was having symptoms since September 10. The symptoms included shortness of breath, cough, fatigue, muscle aches, and generally just not feeling well. The patient is non vaccinated. She tested positive for coronavirus on September 23. The patient takes Coumadin chronically for her factor V or Leiden factor deficiency. Initially, on room air, her saturations were in the 70s, and on a nonrebreather, only got up into the mid 80s. In addition to the primary hypercoagulable state, she has a history of DVT, fibromyalgia, pneumonia, arthritis, and degenerative disc disease. She is a lifelong nonsmoker. Chest x-ray reveals diffuse bilateral infiltrates. CT angiogram was negative for pulmonary embolism, but did show diffuse infiltrates consistent with coronavirus pneumonia. Subsequently, the patient was placed on a BiPAP for respiratory support. Following that, on 09/25/2021 required intubation and mechanical ventilation. On today's evaluation of 10/18/2021, the patient remains on a mechanical ventilator. The patient remains sedated and paralyzed. She had a complicated COVID 19 pneumonia course here in the intensive care unit. The patient developed bilateral pneumothoraces and currently she still has bilateral chest tubes in place. This morning, the patient remains sedated and the patient is currently on propofol at 50 mcg/kg per minute, fentanyl at 2 mcg/kg per minute and the patient is paralyzed with rocuronium running at 10 g. The patient is adequately sedated and paralyzed for now. This morning, she is on a mechanical ventilator on assist control mode at the rate of 30, tidal volume of 420, FiO2 of 70% with a PEEP of 16. Peak airway pressure is 45. The static air pressure is 42. The chest x-ray from today showing no evidence of any pneumothorax. There is still diffuse bilateral pulmonary infiltrates. There are bilateral chest tubes. Chest tubes are in good location. No evidence of any pneumothorax. The blood gases from this morning shows a pH of 7.47 with a pCO2 of 49 and pO2 of 49 and this was done and FiO2 of 60% and based on his affect was brought up to 70%. Meanwhile, the patient is on IV fluids. She is on normal saline at the rate of 20 mL an hour. Norepinephrine is being is less for hemodynamic support and it is running at 0.08 mcg/kg/m.. The patient remains on Decadron 6 mg by mouth on a daily basis and the patient is also on antic oagulation with Eliquis 5 mg by mouth twice a day. All of the cultures of been negative. The white cell count from this morning is at 19.7 with a hemoglobin of 8.3 and platelet count of 321. Sodium is at 139 with a potassium level of 3.3 and currently is 102 with a bicarb is of 36 creatinine is at 23 with a creatinine of 0.5. LFTs are all within normal limits. Noted the patient underwent a bronchoscopy on 10/16/2020. This was done strictly for airway inspection. No cultures were obtained. The patient is currently on no antibiotics. Inflammatory markers showed a pro-calcitonin level of 0.14 from 10/05/2020 and the patient also has LDH of 531 from 10/01/2021. The patient has a PICC line in her right upper extremity. There is a double-lumen PICC line. 10/19/2021, the patient is being seen for a follow-up. The patient remains essentially the same as yesterday. No major interval [employer] the past 24 hours. She remains on propofol running at 60 mg/kg per minute and fentanyl is running at 2 mcg/kg/h and the patient is also paralyzed utilizing rocuronium running at 10 g. The patient is well sedated and paralyzed for now. She is afebrile and she is hemodynamically stable. She remains on assist control mode with a tidal volume of 420, rate of 30, FiO2 of 65% with a PEEP of 16. Peak pressures remains elevated at 46. Static pressures around 43. Chest x-ray shows no interval change compared to yesterday. No evidence of any pneumothorax. There is diffuse bilateral pulmonary infiltrates. There is evidence of bilateral chest tubes. No evidence of any air leaks through the chest tubes. Output from the chest tube is minimal at this point in time and is essentially serosanguineous. Blood gases from today showed a pH of 7.55 with a pCO2 of 41 and pO2 of 66. Patient is having significant fluctuation in her blood pressure. Yesterday for example she was on low-dose pressors. Subsequently, her blood pressure went up as high as systolic over the 180 range. The pressors were discontinued and the patient was started on Cleviprex drip for blood pressure control. Currently she is off all these drips. Her blood pressure is slightly hypertensive on mornings evaluation. Her white cell count is at 14.8 with a hemoglobin of 7.6 and a platelet count of 342. Sodium is at 139, BUN is at 24 with a creatinine of 0.5 and a blood sugar is at 100. LFTs are normal. Cultures are all negative. She has a double-lumen PICC line in her right upper extremity. Inflammatory markers have been essentially dropping and the patient is not receiving any antibiotic coverage for now. She remains on Decadron at a dose of 6 mg by mouth daily basis and she remains also on Eliquis 5 mg by mouth twice a day. She is receiving enteral feeding for nutritional support. She is currently on vital AF at the rate of 10 mL an hour. IV fluids are currently at KVO. She is receiving daily Lasix 40 mg IV every 24 hours. Fluid balance is negative approximately 700 mL over the past 24 hours. On 2021, the patient is being seen for a follow-up. This morning, she is on propofol running at the rate of 50 mcg/kg per minute and the patient is also on fentanyl running at 1.5 mcg/kg/h. The patient is still on rocuronium for paralysis. Chest x-ray shows adequate expansion of both lungs. No evidence of any pneumothorax. No evidence of any subcutaneous emphysema. Chest tubes are in place. ET tube is in a good location. No evidence of any air leaks of the chest tube and I think it's reasonable to remove both of the chest tubes out today. Meanwhile, the patient remains on a mechanical ventilator. She is on assist-control at the rate of 26 and a tidal volume of 400 and FiO2 of 60% with a PEEP of 16. Peak airway pressures around 38. Static pressures 36. The pH is at 7.49 with a pCO2 of 48 and pO2 of 65. No respiratory secretions for now. She is afebrile. She is hemodynamically stable. She is on no pressors. She is still on Decadron 6 mg on a daily basis. Anticoagulations with Eliquis 5 mg by mouth twice a day The patient also had a DVT of the left lower extremity and previous history of hypercoagulability. Enterofeeding is still in the form of vital AF at the rate of 10 mL an hour. The patient is also receiving daily Lasix 40 mg IV every 24 hours. She is off Cleviprex for now. The blood work from today shows a white cell count of 15.5 with a hemoglobin of 8.4 and the plated count of 295. The sodium is 140 with a potassium level of 3.1, serum bicarbonate of 36 with a BUN of 23 and a creatinine of 0.5. LFTs are all within normal limits. 10/21 2021, seeing the patient for a follow-up. I had a lengthy discussion with the yesterday. Unfortunately, prognosis been limited on this patient. She remains on a propofol and fentanyl combination. Propofol is running at 60 mcg/kg per minute and fentanyl is running at 1.5 mcg/kg per hour. The patient continues to be paralyzed with rocuronium. We managed to pull of the chest tubes today. The patient did not have any pneumothorax and today's chest x-ray. No evidence of any air leak for the past several days. Without it's reasonable to follow the chest tubes on both sides. She is on assist control mode. Overnight, the patient she did have some limited desaturation. Blood gas showed a pH of 7.46 with a pCO2 of 53 and pO2 of 58 and this was on FiO2 of 70% with a PEEP of 15. Based on that, the fight was brought up to 80% and currently her pulse ox is 99-100%. Based on that, drop the FiO2 down to 70%. Adenopathy down to 14. Her current tidal volumes of 400 with a rate of 26. Chest x-ray still showing unchanged bilateral pulmonary infiltrates. Hemoglobin is at 8.4. White cell count is at 14.4. Electrolytes are normal. Creatinine is at 0.5. Blood sugars of 116. No recent inflammatory markers checked. She remains on Decadron and current dose is at 6 mg by mouth daily. She remains also on anticoagulation with Eliquis 5 mg by mouth twice a day as the patient has DVT and history of hypercoagulable state. Hemodynamically stable. We are going to give this patient and paralytic holiday. She is receiving enteral feeding for nutritional support. She is currently on vital high protein at the rate of 10 mL an hour. At the same time, the patient has a tracheostomy tube which is a Shiley #8. Golden catheter is in place. She has a PICC line in the right upper extremity. He is receiving Lasix 40 mg IV on a daily basis and the patient is in a negative fluid balance of 1.4 L. 10/22/2021, the patient is being seen for a follow-up. Note that this yesterday, the patient was taken off the paralytics. The chest tubes were removed. The patient was kept on sedation with accommodation propofol and fentanyl. The PEEP was dropped down to 13. The patient was doing fine throughout the night and earlier this morning the patient desaturated. Pulse ox dropped and the patient was placed on 100% FiO2 along with a PEEP of 13. The patient became hypotensive and started on norepinephrine at 0.08 mcg/kg per minute. Subsequent chest x-ray showed a large and she pneumothorax on the right. The blood gases from this morning showed a pH of 7.46 with a pCO2 of 54 and pO2 of 59. The patient was peak airway pressure during and both the peak and static pressures were quite elevated in the high 40 range at 48 and 46 respectively. There was no air entry on the right. Immediately, and right- sided chest tube was inserted. The tension was released. The hemodynamics improved. The patient started turning his volumes back. I put her on pressure control mode of mechanical ventilation and she is currently a day rate of 26, pressure control of 25, FiO2 of 100% with a PEEP of 13. Generated tidal volumes around 3 80 mL and a follow-up chest x-ray on the blood gases are still pending for now. The patient remains sedated on a mechanical ventilator. The patient has a Shiley tracheostomy tube in place. This morning, she remains on a combin ation of propofol and fentanyl. White cell count is at 20 with a hemoglobin of 8.5 and a platelet count of 393. Rest of the electrolytes are normal, BUN is at 23 with a creatinine of 0.3. Sodium is at 137. The patient remains on and correlation with Eliquis 5 mg by mouth twice a day. She is on enteral feeding for nutritional support with vital high protein. Overall fluid balance over the past 24 hours has been -1.4 L. The patient is receiving daily Lasix as mentioned. 10/23/2021, seeing the patient for a follow-up. The patient was having some issues with right-sided pneumothorax. Yesterday morning, the patient had a tension pneumothorax on the right and immediately chest tube was inserted. There was adequate expansion of the right lung. Subsequently, at around 10 PM yesterday, the patient developed again issues with pneumothorax. The chest tube had to be many plated. I repeated the chest x-ray and a chest tube was still in the right hemithorax. After administrating the chest tube, air leak started again and the right lung partially expanded. There was improvement in o xygenation at that point. Note that on and off, the patient was requiring pressors overnight. This morning, she is off the pressors. She is on a pressure control mode of mechanical ventilation. Her pressure control is at 25 with a PEEP of 13 with an FiO2 of 100% and the rate of 26. Morning blood gases showed a pH of 7.58 with a pCO2 of 39 and pO2 of 63 and this was done and FiO2 of 90%. Current pulse ox is 91% and the patient's FiO2 is at 80%. She has persistent air leak in the right-sided chest tube. Output in terms of fluid is minimal in the order of 120 mL since the chest was inserted yesterday morning. The patient remains off paralytics patient remains on propofol at a dose of 50 mg/kg per minute and she remains also on fentanyl. She is off Nimbex for now. She is receiving enteral feeding for nutritional support via PEG tube. She remains on long-term and to coagulation with Eliquis 5 mg by mouth twice a day. Cardiac rhythm is sinus. In terms of her blood work from today, the patient has a white cell count of 13.7 with a hemoglobin of 7.7 and the platelet count of 31 4. Sodium is at 140 and the potassium needs to be replaced at 3.0. Serum bicarb is at 37. Creatinine is at 0.44. No other issues otherwise. Activation for now is the persistent air leak and persistent pneumothorax on the right lung. The size of the pneumothorax is improved and is not affecting his oxygenation significantly. As such, this will be monitored. Right-sided chest tube is functional and there is ongoing air leak. 10/24/2021, the patient remains on a mechanical ventilator. This morning, she is sedated with a combination of propofol and fentanyl. Propofol is running at 45 mcg/kg per minute and the fentanyl is running at 1.5 mcg/kg/h. I have taken this patient off paralytics. Meanwhile, switch this patient a pressure control mode of mechanical ventilation at the rate of 26, pressure control of 22, FiO2 of 70% with a PEEP of 13. The chest x-ray from today showing a small right apical pneumothorax. Chest tube is in a good location. There are still persistent air leak and the chest tube. Tracheostomy tube is high in the trachea. Nevertheless, there is no air leaks. The patient continues to have diffuse bilateral pulmonary infiltrates more so in the right lower lobe. The blood gases from today shows a pH of 7.50 with a pCO2 of 47 and pO2 of 96 and this was on FiO2 of 70%. Otherwise, the patient remains hemodynamically stable. She remains on anticoagulation and the patient remains on Eliquis 5 mg by mouth twice a day.. The patient is also on Decadron as well as a 4 mg by mouth daily no other new complaints otherwise for now. The patient is receiving enteral feeding for nutritional support via PEG tube. She is currently on vital high protein at the rate of 10 mL an hour. The blood work from today shows a white cell count 14.2 with hemoglobin of 7.1 and a platelet count of 317. Sodium is at 140 with potassium level of 3.4 which is going to be replaced. BUN is at 20 with a creatinine of 0.4. Blood sugar is at 103. No other significant events overnight. No synovitis fluid overload. Overall fluid balance over the past 24 hours has been -1083 cc. Objective - Vital Signs Vital signs: Vital Signs Temp 99.4 F 10/24/21 08:00 Pulse 97 10/24/21 10:00 Resp 27 H 10/24/21 10:00 BP 105/59 10/24/21 10:00 Pulse Ox 84 L 10/24/21 10:00 Intake & Output 10/23/21 10/24/21 10/24/21 18:59 06:59 18:59 Intake Total 1112.898 803.339 368.75 Output Total 1800 455 100 Balance -687.102 348.339 268.75 Weight 91.9 kg Intake: IV 253 299 46 0.9 NS 220 260 40 pressure bag 33 39 6 Intake, IV Titration 549.898 334.339 212.75 Amount Norepinephrine 8 mg In 91.428 137.384 Sodium Chloride 0.9% 250 ml @ 0.05 MCG/KG/MIN 9. 143 mls/hr IV .Q24H [facility] Rx#:[id number] fentaNYL (PF) 2,500 mcg 158.47 212.75 In Sodium Chloride 0.9% 200 ml @ 0.5 MCG/KG/HR 4. 6 mls/hr IV .Q24H [facility] Rx# :[id number] propofoL 1,000 mg In 300.000 196.955 Empty Bag 1 bag @ Titrate IV .Q0M [facility] Rx#: [id number] Tube Feeding 120 110 20 Other 190 60 90 Output: Chest Tube Drainage 5 Chest Tube Right 5 Urine 1800 450 100 Other: Voiding Method Indwelling Catheter Indwelling Catheter Indwelling Catheter ABP, PAP, CO, CI - Last Documented Arterial Blood Pressure 128/56 - Exam No acute distress, sedated and she is off paralysis, with tracheostomy tube in place. The patient has a #6 [address] tracheostomy tube in place. No evidence of any subcutaneous emphysema. Head exam was generally normal. There was no scleral icterus or corneal arcus. Mucous membranes were moist. Neck was supple and without jugular venous distension, thyromegaly, or carotid bruits. Carotids were easily palpable bilaterally. There was no adenopathy Lungs revealed absent breath sounds on the right and a right-sided chest tube was inserted with improvement in the breast on the right. There was diminished breath sounds in the right prior to the chest tube insertion. The patient has persistent air leak and the chest tube. Total amount of output has been 120 mL since the chest tube insertion yesterday. Cardiac exam revealed the PMI to be normally situated and sized. The rhythm was regular and no extrasystoles were noted during several minutes of auscultation. The first and second heart sounds were normal and physiologic splitting of the second heart sound was noted. There were no murmurs, rubs, clicks, or gallops. Abdominal exam revealed normal bowel sounds. The abdomen was soft, non-tender, and without masses, organomegaly, or appreciable enlargement of the abdominal aorta. The patient has a PEG tube also in place Examination of the extremities revealed easily palpable radial, femoral and pedal pulses. There was no cyanosis, clubbing or edema. Examination of the skin revealed no evidence of significant rashes, suspicious appearing nevi or other concerning lesions. Neurologic examination cannot be assessed as the patient is currently sedated off paralysis. - Labs CBC & Chem 7: 10/24/21 04:15 10/24/21 04:15 Labs: Abnormal Lab Results - Last 24 Hours (Table) 10/23/21 10/23/21 10/23/21 Range/Units 11:44 12:30 14:46 WBC (3.8-10.6) k/uL RBC (3.80-5.40) m/uL Hgb (11.4-16.0) gm/dL Hct (34.0-46.0) % MCHC (31.0-37.0) g/dL RDW (11.5-15.5) % ABG pH 7.50 H (7.35-7.45) ABG pCO2 48 H (35-45) mmHg ABG pO2 167 H (83-108) mmHg ABG HCO3 38 H (21-25) mmol/L ABG Total CO2 39 H (19-24) mmol/L ABG O2 Saturation 100.0 H (94-97) % Potassium 3.4 L (3.5-5.1) mmol/L Carbon Dioxide (22-30) mmol/L BUN (7-17) mg/dL Creatinine (0.52-1.04) mg/dL Glucose (74-99) mg/dL POC Glucose (mg/dL) 184 H (75-99) mg/dL Calcium (8.4-10.2) mg/dL 10/23/21 10/23/21 10/24/21 Range/Units 17:39 23:15 04:15 WBC 14.2 H (3.8-10.6) k/uL RBC 2.55 L (3.80-5.40) m/uL Hgb 7.1 L (11.4-16.0) gm/dL Hct 23.8 L (34.0-46.0) % MCHC 29.7 L (31.0-37.0) g/dL RDW 17.1 H (11.5-15.5) % ABG pH (7.35-7.45) ABG pCO2 (35-45) mmHg ABG pO2 (83-108) mmHg ABG HCO3 (21-25) mmol/L ABG Total CO2 (19-24) mmol/L ABG O2 Saturation (94-97) % Potassium (3.5-5.1) mmol/L Carbon Dioxide (22-30) mmol/L BUN (7-17) mg/dL Creatinine (0.52-1.04) mg/dL Glucose (74-99) mg/dL POC Glucose (mg/dL) 191 H 131 H (75-99) mg/dL Calcium (8.4-10.2) mg/dL 10/24/21 10/24/21 10/24/21 Range/Units 04:15 05:23 05:44 WBC (3.8-10.6) k/uL RBC (3.80-5.40) m/uL Hgb (11.4-16.0) gm/dL Hct (34.0-46.0) % MCHC (31.0-37.0) g/dL RDW (11.5-15.5) % ABG pH 7.50 H (7.35-7.45) ABG pCO2 47 H (35-45) mmHg ABG pO2 (83-108) mmHg ABG HCO3 37 H (21-25) mmol/L ABG Total CO2 39 H (19-24) mmol/L ABG O2 Saturation 99.0 H (94-97) % Potassium 3.4 L (3.5-5.1) mmol/L Carbon Dioxide 38 H (22-30) mmol/L BUN 20 H (7-17) mg/dL Creatinine 0.46 L (0.52-1.04) mg/dL Glucose 103 H (74-99) mg/dL POC Glucose (mg/dL) 121 H (75-99) mg/dL Calcium 7.8 L (8.4-10.2) mg/dL Assessment and Plan Plan: 1 Acute hypoxemic respiratory failure/ARDS secondary to coronavirus associated pneumonia, status post intubation, and mechanical ventilation on 09/25/2021.No evidence of pulmonary embolism on CT angiogram. The patient continues to have diffuse bilateral pulmonary infiltrates consistent with COVID 19 related pneumonia. Patient subsequently developed bilateral pneumothoraces. The patient has bilateral chest tubes and the chest tubes were inserted on 10/11/2021. The patient remains intubated on a mechanical ventilator. The patient has a tracheostomy on 10/14/2021 . The chest x-ray from today shows diffuse bilateral pulmonary infiltrates consistent with ARDS. The patient remains on anticoagulation with Eliquis. The patient had her chest tubes removed yesterday. Earlier this morning, the patient was found to have a tension pneumothorax on the right. The patient acutely became hypotensive, hypoxic and the patient's was identified to have a right-sided pneumothorax. A chest tube was inserted on an emergent basis with subsequent improvement in the airway pressures, oxygenation, hemodynamics. Overnight, the patient continued to have issues with right-sided pneumothorax. There was recurrence in the right-sided pneumothorax. The chest tube was manipulated. Air leak is present for now and the patient has persistent air leak with each breath. His evaluation, the patient remains sedated without paralytics. The patient remains on pressure control mode of mechanical ventilation. Oxidation is stable. Patient continues to have persistent air leak on the right. Chest tube is in a good location. There is a small tiny right apical pneumothorax on today's chest x-ray. 2 acute COVID 19 related pneumonia 3 Acute bilateral pneumothoraces, status post bilateral chest tube placements, on 10/11/2021. subcutaneous emphysema, as a complication of mechanical ventilation and coronavirus associated pneumonia. The bilateral chest tubes were removed on 10/21/2021. The right-sided chest tube was reinserted on 10/22/2021 for a recurrent right-sided pneumothorax and there is persistent air leak and persistent pneumothorax on the right. 4 acute left lower extremity femoral DVT currently on Eliquis. The patient is known to have a Primary hypercoagulable state in the form of Leiden factor deficiency/factor V deficiency. The patient has been maintained on warfarin on outpatient basis. The patient is currently on Eliquis 5 mg by mouth twice a day. 5 Prior history of DVT. 6 History of fibromyalgia. 7 History of arthritis. 8 History of degenerative disc disease. 9 Mild transaminitis secondary to coronavirus infection. Plan Continue ventilator support for now. Dropped a pressure control to 18 cm of water and keep the FiO2 at 70% with a PEEP of 13. Monitor the output from the chest tube and monitor the air leak No need for paralytics Continue propofol and wean off fentanyl and discontinue fentanyl. He'll be also reasonable to assess the patient's mental status and give the patient sedation holiday and assess if she is still awake as the patient has had prolonged hospitalization for complications related COVID 19 pneumonia. Continue Decadron and the reduced dose up to 4 mg by mouth daily Continue anticoagulation with Eliquis 5 mg by mouth twice a day enteral feeding for nutritional support, vital 1.2 @ 10cc/hr Prognosis remains poor. The patient is not having any major progress over the past several days. Obviously she carries a very poor prognosis. She is a case of post overnight he relates pneumonia/ARDS with prolonged respiratory failure. We'll continue to follow make further recommendations based on her progress. This is a critically care evaluation was done and more than 30 minutes. 3
[2021-10-24] MEDS: CLEVIDIPINE BUTYRATE 25 MG in EMPTY BAG 1 BAG IV SCH ×3 (11:07→15:39)
[2021-10-24 11:26] LABS: African American GFR (CKD) >90 (>60 ml/min/1.73 sqM); Anion Gap -1 mmol/L; Blood Urea Nitrogen 20 mg/dL (7-17); Calcium 8.1 mg/dL (8.4-10.2); Carbon Dioxide 37 mmol/L (22-30); Chloride 103 mmol/L (98-107); Glucose 119 mg/dL (74-99); Non-African American GFR(CKD) >90 (>60 ml/min/1.73 sqM); Potassium 3.3 mmol/L (3.5-5.1); Sodium 139 mmol/L (137-145)
[2021-10-24 12:10] LABS: Glucose,Whole Blood 167 mg/dL (75-99)
[2021-10-24] MEDS: LACTATED RINGERS 1,000 ML IV SCH (12:12)
--- NOTE | 2021-10-24 13:51 | XR ---
EXAMINATION TYPE: XR chest 1V portable DATE OF EXAM: 10/24/2021 CLINICAL HISTORY: Hypoxia progress study. TECHNIQUE: Single AP portable semiupright view of the chest is obtained. COMPARISON: Chest x-ray from earlier today an older studies FINDINGS: Stable right-sided PICC line. Stable tracheostomy tube. Stable right-sided chest tube . Persistent bilateral multifocal and confluent increased opacities. Cardiac silhouette size is stable and upper limits of normal. Right-sided pneumothorax redemonstrated slightly worsened from earlier t vipin now estimated near 15-20%. Pneumomediastinum is redemonstrated. Anterior fusion plate in the cer vical spine is seen. IMPRESSION: Bilateral Multifocal and confluent opacities consistent with covid-19 infection and/or AR DS are redemonstrated and stable. Right-sided chest tube with small apical pneumothorax estimated at 15-20% slightly worsened from earlier today. Pneumomediastinum redemonstrated.
[2021-10-24 17:24] LABS: Glucose,Whole Blood 149 mg/dL (75-99)
--- NOTE | 2021-10-24 22:50 | P.PN ---
Subjective Progress Note Date: 10/22/21 This is a 61-year-old female who was recently admitted with acute COVID-19 pneumonia with acute COVID-19 bilateral interstitial pneumonia and also with transaminitis and being closely monitored. Patient remains in the ICU and currently intubated and sedated with an FiO2 of 70% and PEEP is 18. 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 Patient did have a venous Doppler study done recently which showed left leg DVT and patient is maintained on Eliquis will continue. Patient also continues on empiric antibiotics and awaiting for sputum culture finalized. Patient was started on IV cefepime and will continue. Patient is also continued on oral dexamethasone along with vitamin and zinc supplements and will continue. Patient with some mild volume overload and given a dose of IV Lasix push today. 09/29/2021 Patient is seen and evaluated this morning continues to be closely monitored in the ICU and continues to be on mechanical ventilation and sedated. FiO2 was increased at 80% with a PEEP of 18 and oxygen saturations between 87-91%. Patient developing subcutaneous emphysema in the neck and chest wall area and chest x-ray today shows bilateral multifocal and confluent opacification is redemonstrated consistent with COVID-19 infection with a new small left apical pneumothorax estimated under 5% with new pneumomediastinum and recurrent overlying subcutaneous emphysema noted. Patient is white blood count mildly elevated at 16.1 and is continued on oral dexamethasone along with oral eliquis for anticoagulation. Patient continues to be on IV cefepime and blood and sputum cultures are negative thus far. 09/30/2021 Patient is seen today continues to be closely monitored in the ICU with multiple medical consultations following. Patient continues to be mechanically intubated and sedated with continued subcutaneous emphysema noted. Chest xray shows a trace left apical pneumothorax that is minimally smaller 7mm versus 1cm previously, extensive bilateral subcutaneous emphysema persists and diffuse interstitial changes and bilateral patchy opacities persist with slight improvement in aeration in the lower lungs. Per nursing staff corbin was clogged with copious amounts of white discharge and will add diflucan and corbin catheter has been changed and draining adequately. Patient continues on IV cefepime. Patient tolerating tube feeds and will continue. 10/01/2021 Patient is seen and evaluated in follow up this morning and continues to be closely monitored. Multiple medical consultations following and patient con tinues to be on mechanical vent and sedated. Patient continues on IV Cefepime and diflucan. Patient chest xray today shows stable extensive subcutaneous emphysema, no pneumothorax, and patchy bilateral lung infiltrates remain present. INflammatory markers trending down. 10/04/2021 Patient is seen in follow-up continues to be closely monitored in the ICU. Patient remains on mechanical vent with an FI02 of 65% and peep is 18. Weaning trials being attempted with pulmonary cosmetic manager following closely. Patient continues with extensive subq emphysema noted on exam. 10/05/2021 Patient Is seen and evaluated this morning with continued attempts at weaning and continues on mechanical vent and intubated with pulmonary cosmetic manager following closely. Patient remains on Eliquis which will be held as surgery Dr. Nelson was consulted for possible PEG and trach tube placement for unsuccessful attempts at weaning from ventilation and prolonged hospitalization on mechanical vent. Chest x-ray today shows recurrent tiny left apical pneumothorax estimated under 5% with worsening overlying subcutaneous emphysema and again pneumomediastinum redemonstrated with multifocal confluent opacification's redemonstrated consistent with COVID-19 infection and/or arts are redemonstrated with no significant change from one day previously. Patient continues on FiO2 of 65% and PEEP was weaned down to 14 today. IV cefepime discontinued. 10/06/2021 Patient is seen in follow-up this morning per nursing staff patient had multiple runs of ectopy an irregular heart rate and rhythms with PVCs and cardiology consulted. Patient was placed on lidocaine drip and was originally on eliquis is currently on hold for possible PEG and trach placement with general surgery following. Patient had difficulty maintaining oxygen saturations and FiO2 was increased to 100% and PEEP continues at 14. Multiple medical consultations following and patient continues on oral steroids along with vitamin and zinc supplements along with fluconazole. Patient being started on IV Lasix daily and recommend close monitoring of electrolytes and kidney functions. 10/07/2021 Patient is seen in follow-up this morning continues to be monitored closely in the ICU with multiple medical consultations following. Patient is currently on mechanical vent with an FiO2 of 80% and PEEP is 16. General surgery also following for possible PEG and trach placement and will need to discuss with surgery about when this will occur. Patient remains on fluconazole. She also continues on vitamin and zinc supplements along with oral dexamethasone, clevidipine, Nimbex, IV Lasix, fentanyl and propofol and is off norepinephrine. Chest x-ray shows stable bilateral lung infiltrates. 10/08/2021 Patient is seen this morning continues to be on mechanical vent with an FiO2 of 85% and PEEP of 16. Patient continues with extensive subcutaneous emphysema and plans are for possible PEG and trach placement although on hold until possibly next week once more stable. Patient continues on Cleviprex along with fentanyl and propofol and is receiving IV Lasix daily. Patient also continues on lidocaine drip which is currently on hold and cardiology is following closely. Anticoagulant was resumed for now again until more stable to undergo PEG and trach placement. Chest x-ray today shows persistent bilateral multifocal and confluent increased opacification is with persistent overlying subcutaneous emphysema noted in pneumomediastinum is again redemonstrated. 10/09/2021 Patient evaluated today in ICU mechanical ventilation with FiO2 of 80%. Chest x-ray this morning shows similar multifocal airspace opacities and stable support lines and tubes. Similar subcutaneous emphysema scattered throughout the visualized thorax. PEG and trach plan for next week once more stable. Current meds include Cleviprex, Nimbex, fentanyl, propofol. She is receiving IV fluconazole, as well as IV Lasix. Levophed and Lidocaine gtt;s are on hold. Positive bowel sounds. Current vitals afebrile, heart rate 71, blood pressure 135/60 and oxygen saturation is 93%. Respirations 30. Labs today, white count 17, hemoglobin 11.6, sodium 139, potassium 3.8, BUN 34, creatinine 0.91, CO2 33, calcium 8.7, ALT 54, albumin 2.8 with blood sugars in the 100s. 10/10/2021 Patient evaluated today in the ICU on the mechanical VENT with fio2 of 100%. Po sitive bowel movement today, Stage 2 pressure ulcer on coccyx per RN, optifoam ordered. Per RN they were unable to patient as she was desaturating. They're unable to wean Fi02 currently as she does desaturate with any time of movement. She was lying more on her right side during evaluation and pulse ox was dropping into high 80s she was being repositioned by nurses. Plan is to PEG/TRACH patient tomorrow. Last family update was 4 days ago. We will call and discuss case today. Patient is afebrile, heart rate 84, respirations 30, blood pressure 141/55, 92% oxygen saturation on 100% Fi02, which was increased today up from 70 Fi02%. Labs today show WBC of 15.6, hgbl 10.7, sodium 138, potassium 3.9, chloride 100, CO2 37, glucose 117, calcium 8.2. Chest xray today shows pneumonia, ARDS. 10/11/2021 Patient is seen and evaluated in follow-up this morning continues to be closely monitored in the ICU and patient is continued on FiO2 of 90% and PEEP is 16 with multiple medical consultations following. Chest x-ray today shows new left- sided pneumothorax estimated 10-20% with overlying subcutaneous emphysema and pneumomediastinum redemonstrated with bilateral multifocal and confluent opac ification's redemonstrated consistent with COVID-19 infection and/or arts and no significant change from one day previous. Patient is status post left chest tube insertion with pulmonary cosmetic manager. Cardiology following and patient is off lidocaine drip and maintaining sinus rhythm. Patient also continues on vitamin and zinc supplements along with oral dexamethasone and patient continues on IV Lasix 40 mg daily. Patient also continues off norepinephrine and is currently maintained on IV cefepime along with fluconazole. General surgery following as well and plan is for peg and trach placement in the am 10/12/2021 Patient is seen in the ICU this morning continues to be closely monitored by multiple medical consultations. Patient was scheduled for PEG and trach placement with general surgery Dr. Nelson today although canceled as patient became hypotensive requiring Levophed along with acute blood loss anemia and hemoglobin dropped to 6.5 this morning requiring 1 unit of PRBC. Patient continues with left chest tube with pneumothorax and chest x-ray today shows the jahaira is difficult to clearly identify on the present exam and the ET tube may be approximately 1 cm from the jahaira and there are bilateral chest tubes present with continued diffuse interstitial opacification is and more focal bibasilar opacification is with subcutaneous emphysema persists along the upper chest with slight improvement on the left. No appreciable pneumothorax noted. Patient having worsening right pleural effusion last night and received a right- sided chest tube with pulmonary cosmetic manager. FiO2 is 90% and PEEP of 16. Again overall prognosis remains extremely poor and guarded. 10/13/2021 Patient is seen in follow-up this morning in the ICU with multiple medical consultations following. Lengthy discussion was had with pulmonary cosmetic manager and family members and would like to continue with full CODE STATUS and plan is in place for PEG tube and tracheostomy placement tomorrow. Anticoagulant on hold and Dr. Nelson plans for surgery tomorrow. Patient continues on oral dexamethasone along with IV cefepime, vitamin and zinc supplements. Patient also continues on Cleviprex and Nimbex. Patient also continues on fentanyl and propofol and will continue. Chest x-ray today shows stable portable chest with bilateral chest tubes without sizable pneumothorax identified and continued subcutaneous air persists with persistent interstitial changes bilaterally with airspace disease in the bilateral lung bases that are unchanged. FiO2 is 60% and PEEP of 16. 10/14/2021 Patient is seen and evaluated in the ICU being closely monitored with multiple medical consultations following. at the bedside today and had detailed discussion with overall prognosis. Plan is to proceed with PEG tube and tracheostomy placement with surgery Dr. Nelson today and anticoagulant continues to be on hold for this procedure. Patient continues on mechanical ventilation with an FiO2 of 70% and PEEP of 16. Chest x-ray today shows improving infiltrate with bibasilar residual and bilateral chest tubes remain present with no pneumothorax evident on either side and again subcutaneous emphysema is noted. 10/15/2021 Patient is seen in the ICU being closely monitored. Patient is status post PEG and trach placement yesterday. Chest x-ray today shows bilateral patchy lung infiltrates greater at the right base with diffuse increased lung markings and bilateral chest tubes remain present and subcutaneous emphysema on the right is diminished. Patient continues with an FI02 of 60 and peep is 16. To resume tube feeds per surgery. Patient continues on norepinephrine and sedation. Patient is receiving IV lasix daily. 10/16/2021 Patient is currently in the MICU and remains on ventilator. Status post tracheostomy and PEG tube placement on 10/14/2021. Patient is sedated and paralyzed. Also on Cleviprex. Chest x-ray showed no acute cardiopulmonary disease with no interval changes. Laboratory data showed WBC 16.9 hemoglobin 8.9 and platelets 278 BUN 19 and creatinine 0.5 and calcium 8.1 patient is being continued on dexamethasone 6 mg daily, Lasix 40 mg IV daily and multivitamins and anticoagulation with Eliquis. Pulmonary and general surgery is on board. 10/17/2021 Patient is in the MICU. Remains on the current ventilator via tracheostomy. Status post tracheostomy and PEG tube placement on 10/14/2021. Sedated and paralyzed and also on fentanyl drip. Currently on assist control with tidal volume of 420, FiO2 80% and PEEP of 16. Respiratory of 30. Chest x-ray showed no interval change in acute cardiopulmonary disease Laboratory data showed WBC 15.8 hemoglobin 8.2 and platelets 271 Sodium 136 potassium 3.1 chloride 100 bicarb is 32 BUN 21 creatinine 0.48 and albumin 2.3 Patient is being continued on Lasix IV, dexamethasone and anticoagulation with Eliquis. 10/18/2021 Patient is seen in follow-up and continues in the ICU with multiple medical consultations following. Patient continues on mechanical vent with an FI02 of 70% and peep is 16. Chest xray shows overall stable exam with interstitial changes and bilateral patchy infiltrates with right greater than left and greater at the bases with bilateral chest tubes noted. no appreciable pneumothorax. Patient continues on propofol and fentanyl along with cleviprex and rocuronium. Eliquis has been resumed. Potassium is 3.3 and will be replaced per protocol. Patient also continues to receive IV lasix daily. 10/19/2021 Patient is seen this morning and continues to be in the ICU with multiple medical consultations following. Patient continues with bilateral chest tubes and remains on mechanical ventilation with an FiO2 of 65% and PEEP is 16. Chest x-ray today shows Bilateral multifocal and confluent opacification greatest in the lower lungs consistent with COVID-19 infection and/or ARDS all redemonst rated with no significant change from one day earlier and continued bilateral chest tubes without pneumothorax redemonstrated. 10/20/2021 Patient continues to be in the ICU under close critical monitoring with multiple medical consultations following. Patient continues with bilateral chest tubes although per nursing staff may possibly discontinued today. Chest x-ray today shows stable portable chest with no change in scattered mixed interstitial and alveolar infiltrates. Patient remains on mechanical ventilation via tracheostomy with an FiO2 of 55% and PEEP is 15. Patient continues on Cleviprex along with rocuronium and sedation. 10/21/2021 Patient continues in the MICU being closely monitored. Chest tubes were removed today and chest xray stable with interstitial changes and basilar ground glass, that is similar to previous with slight improvement. Patient continues on mechanical vent with an FI02 of 70% and peep is 14. Patient remains sedated and per nursing staff working on weaning paralytics. Patient continued on rocuronium. Patient is tolerating tube feeds and also continues on IV lasix daily with generalized edema noted throughout. 10/22/2021 Patient is currently MICU. Patient was taken off paralytic and chest tubes yesterday. Continued on pressure support with PEEP of 13. 88 this morning patient again desaturated. Patient became hypotensive and patient was started on norepinephrine. Chest x-ray showed large pneumothorax on the right. Right chest tube was r einserted. Patient is on pressure control. Remains sedated and mechanically ventilated. Laboratory data showed WBC 13.7 hemoglobin 7.7 and platelets 314 Sodium 140 potassium 3.0 chloride 102 bicarb is 37 BUN 19 and creatinine 0.44 and calcium 8.1 Patient is being continued dexamethasone multivitamins and anticoagulation with Eliquis. Patient is also on IV Lasix. Potassium will be replaced. Current medications reviewed. Review of systems: Unable to obtain as patient is mechanically intubated and sedated Objective - Vital Signs Vital signs: Vital Signs Temp 99.0 F 10/22/21 20:00 Pulse 66 10/22/21 21:00 Resp 26 H 10/22/21 21:00 BP 106/51 10/22/21 20:00 Pulse Ox 94 L 10/22/21 21:00 Intake & Output 10/22/21 10/22/21 10/23/21 06:59 18:59 06:59 Intake Total 1106.756 886.268 175.142 Output Total 835 2510 265 Balance 271.756 -1623.732 -89.858 Weight 90.5 kg 90.5 kg Intake: IV 253 276 69 0.9 NS 220 240 60 pressure bag 33 36 9 Intake, IV Titration 563.756 400.268 46.142 Amount Clevidipine Butyrate 25 26.333 mg In Empty Bag 1 bag @ 1 MG/HR 2 mls/hr IV .Q24H [facility] Rx#:[id number] Norepinephrine 8 mg In 27.521 100.268 46.142 Sodium Chloride 0.9% 250 ml @ 0.05 MCG/KG/MIN 9. 143 mls/hr IV .Q24H [facility] Rx#:[id number] fentaNYL (PF) 2,500 mcg 232.07 In Sodium Chloride 0.9% 200 ml @ 0.5 MCG/KG/HR 4. 6 mls/hr IV .Q24H [facility] Rx# :[id number] propofoL 1,000 mg In 277.832 300 Empty Bag 1 bag @ Titrate IV .Q0M [facility] Rx#: [id number] Tube Feeding 140 130 30 Other 150 80 30 Output: Chest Tube Drainage 50 40 Chest Tube Right 50 40 Urine 835 2460 225 Other: Voiding Method Indwelling Catheter Indwelling Catheter Indwelling Catheter ABP, PAP, CO, CI - Last Documented Arterial Blood Pressure 96/47 - Exam Physical Exam: Gen: This is a 61-year-old female currently sedated and intubated. mechanical ventilation Fio2 60% with a PEEP of 16 HEENT: Head is atraumatic, normocephalic. Pupils equal, round. Sclerae is anicteric. tracheostomy noted NECK: Supple. No JVD. No lymphadenopathy. No thyromegaly. subcutaneous emphysema noted in the neck and chest wall area bilaterally extensive. LUNGS: Diminished breath sounds bilaterally with coarse rhonchi and crackles noted. Left more diminished than right. No intercostal retractions. Chest tube in place. HEART: S1, S2 are muffled ABDOMEN: Soft. Bowel sounds are present. No masses. No tenderness. peg tube noted. EXTREMITIES: No pedal edema. No calf tenderness. generalized edema noted NEUROLOGICAL: Patient is currently intubated and sedated - Labs CBC & Chem 7: 10/24/21 04:15 10/24/21 17:21 Labs: Abnormal Lab Results - Last 24 Hours (Table) 10/22/21 10/22/21 10/22/21 Range/Units 00:27 03:35 03:35 WBC 20.0 H (3.8-10.6) k/uL RBC 2.92 L (3.80-5.40) m/uL Hgb 8.5 L (11.4-16.0) gm/dL Hct 27.5 L (34.0-46.0) % MCHC 30.9 L (31.0-37.0) g/dL RDW 18.4 H (11.5-15.5) % Neutrophils # 16.0 H (1.3-7.7) k/uL Monocytes # 1.2 H (0-1.0) k/uL ABG pH (7.35-7.45) ABG pCO2 (35-45) mmHg ABG pO2 (83-108) mmHg ABG HCO3 (21-25) mmol/L ABG Total CO2 (19-24) mmol/L ABG O2 Saturation (94-97) % Potassium 3.3 L (3.5-5.1) mmol/L Carbon Dioxide 36 H (22-30) mmol/L BUN 23 H (7-17) mg/dL Creatinine 0.37 L (0.52-1.04) mg/dL Glucose 121 H (74-99) mg/dL POC Glucose (mg/dL) 126 H (75-99) mg/dL Calcium 8.3 L (8.4-10.2) mg/dL 10/22/21 10/22/21 10/22/21 Range/Units 05:18 05:23 08:55 WBC (3.8-10.6) k/uL RBC (3.80-5.40) m/uL Hgb (11.4-16.0) gm/dL Hct (34.0-46.0) % MCHC (31.0-37.0) g/dL RDW (11.5-15.5) % Neutrophils # (1.3-7.7) k/uL Monocytes # (0-1.0) k/uL ABG pH 7.46 H 7.47 H (7.35-7.45) ABG pCO2 54 H 53 H (35-45) mmHg ABG pO2 59 L* 138 H (83-108) mmHg ABG HCO3 39 H 38 H (21-25) mmol/L ABG Total CO2 40 H 40 H (19-24) mmol/L ABG O2 Saturation 90.9 L 99.9 H (94-97) % Potassium (3.5-5.1) mmol/L Carbon Dioxide (22-30) mmol/L BUN (7-17) mg/dL Creatinine (0.52-1.04) mg/dL Glucose (74-99) mg/dL POC Glucose (mg/dL) 117 H (75-99) mg/dL Calcium (8.4-10.2) mg/dL 10/22/21 10/22/21 Range/Units 12:05 18:00 WBC (3.8-10.6) k/uL RBC (3.80-5.40) m/uL Hgb (11.4-16.0) gm/dL Hct (34.0-46.0) % MCHC (31.0-37.0) g/dL RDW (11.5-15.5) % Neutrophils # (1.3-7.7) k/uL Monocytes # (0-1.0) k/uL ABG pH (7.35-7.45) ABG pCO2 (35-45) mmHg ABG pO2 (83-108) mmHg ABG HCO3 (21-25) mmol/L ABG Total CO2 (19-24) mmol/L ABG O2 Saturation (94-97) % Potassium (3.5-5.1) mmol/L Carbon Dioxide (22-30) mmol/L BUN (7-17) mg/dL Creatinine (0.52-1.04) mg/dL Glucose (74-99) mg/dL POC Glucose (mg/dL) 169 H 153 H (75-99) mg/dL Calcium (8.4-10.2) mg/dL Assessment and Plan Assessment: Assessment: Acute COVID-19 infection with acute COVID-19 bilateral interstitial pneumonia with hypoxic hypercarbic respiratory failure on mechanical vent.S/p trach and PEG placement on 10/14/2021.Patient developed pneumothorax and chest tube was reinserted on 08/21/2022 due to tension pneumothorax on the right. Subcutaneous emphysema of the neck and chest with a left pneumothorax 10-15%. Chest tubes removed. status post peg tube and tracheostomy placement Left pneumothorax status post chest tube placement Right-sided pleural effusion with new small right pneumothorax status post chest tube placement Acute blood loss anemia secondary to bilateral chest tube placements with a drop in hemoglobin to 6.5 and was given 1 unit of PRBC, possible hypovolemic shock requiring pressor support Non-sustained ventricular tachycardia, currently sinus Acute left leg deep vein thrombosis Acute respiratory acidosis Primary hypercoagulable state and factor V week deficiency candidiasis secondary to prolonged indwelling Corbin catheter Mild transaminitis, possibly secondary to COVID-19 History of DVT History of degenerative joint disease History of fibromyalgia Acute respiratory acidosis Increased white blood count anemia, of undetermined etiology Elevated inflammatory markers of COVID-19 Obesity with a body mass index of 38.1 Full code Plan: Patient developed right-sided tension pneumothorax and chest tube was reinserted. Recommend to continue with current medications and follow along closely with multiple medical consultations. Prognosis remains extremely poor and guarded with multiple complex medical issues noted. Patient continues on mechanical ventilation via tracheostomy and FiO2 70% with PEEP of 14. Recommend to continue with current medications. Recommend repeat labs and continued close monitoring. Again due to multiple complex medical issues overall prognosis is extremely poor and quite guarded. Time with Patient: Greater than 30
--- NOTE | 2021-10-24 22:53 | P.PN ---
Subjective Progress Note Date: 10/23/21 This is a 61-year-old female who was recently admitted with acute COVID-19 pneumonia with acute COVID-19 bilateral interstitial pneumonia and also with transaminitis and being closely monitored. Patient remains in the ICU and currently intubated and sedated with an FiO2 of 70% and PEEP is 18. 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 Patient did have a venous Doppler study done recently which showed left leg DVT and patient is maintained on Eliquis will continue. Patient also continues on empiric antibiotics and awaiting for sputum culture finalized. Patient was started on IV cefepime and will continue. Patient is also continued on oral dexamethasone along with vitamin and zinc supplements and will continue. Patient with some mild volume overload and given a dose of IV Lasix push today. 09/29/2021 Patient is seen and evaluated this morning continues to be closely monitored in the ICU and continues to be on mechanical ventilation and sedated. FiO2 was increased at 80% with a PEEP of 18 and oxygen saturations between 87-91%. Patient developing subcutaneous emphysema in the neck and chest wall area and chest x-ray today shows bilateral multifocal and confluent opacification is redemonstrated consistent with COVID-19 infection with a new small left apical pneumothorax estimated under 5% with new pneumomediastinum and recurrent overlying subcutaneous emphysema noted. Patient is white blood count mildly elevated at 16.1 and is continued on oral dexamethasone along with oral eliquis for anticoagulation. Patient continues to be on IV cefepime and blood and sputum cultures are negative thus far. 09/30/2021 Patient is seen today continues to be closely monitored in the ICU with multiple medical consultations following. Patient continues to be mechanically intubated and sedated with continued subcutaneous emphysema noted. Chest xray shows a trace left apical pneumothorax that is minimally smaller 7mm versus 1cm previously, extensive bilateral subcutaneous emphysema persists and diffuse interstitial changes and bilateral patchy opacities persist with slight improvement in aeration in the lower lungs. Per nursing staff corbin was clogged with copious amounts of white discharge and will add diflucan and corbin catheter has been changed and draining adequately. Patient continues on IV cefepime. Patient tolerating tube feeds and will continue. 10/01/2021 Patient is seen and evaluated in follow up this morning and continues to be closely monitored. Multiple medical consultations following and patient con tinues to be on mechanical vent and sedated. Patient continues on IV Cefepime and diflucan. Patient chest xray today shows stable extensive subcutaneous emphysema, no pneumothorax, and patchy bilateral lung infiltrates remain present. INflammatory markers trending down. 10/04/2021 Patient is seen in follow-up continues to be closely monitored in the ICU. Patient remains on mechanical vent with an FI02 of 65% and peep is 18. Weaning trials being attempted with pulmonary physical medicine physician following closely. Patient continues with extensive subq emphysema noted on exam. 10/05/2021 Patient Is seen and evaluated this morning with continued attempts at weaning and continues on mechanical vent and intubated with pulmonary physical medicine physician following closely. Patient remains on Eliquis which will be held as surgery Dr. Nelson was consulted for possible PEG and trach tube placement for unsuccessful attempts at weaning from ventilation and prolonged hospitalization on mechanical vent. Chest x-ray today shows recurrent tiny left apical pneumothorax estimated under 5% with worsening overlying subcutaneous emphysema and again pneumomediastinum redemonstrated with multifocal confluent opacification's redemonstrated consistent with COVID-19 infection and/or arts are redemonstrated with no significant change from one day previously. Patient continues on FiO2 of 65% and PEEP was weaned down to 14 today. IV cefepime discontinued. 10/06/2021 Patient is seen in follow-up this morning per nursing staff patient had multiple runs of ectopy an irregular heart rate and rhythms with PVCs and cardiology consulted. Patient was placed on lidocaine drip and was originally on eliquis is currently on hold for possible PEG and trach placement with general surgery following. Patient had difficulty maintaining oxygen saturations and FiO2 was increased to 100% and PEEP continues at 14. Multiple medical consultations following and patient continues on oral steroids along with vitamin and zinc supplements along with fluconazole. Patient being started on IV Lasix daily and recommend close monitoring of electrolytes and kidney functions. 10/07/2021 Patient is seen in follow-up this morning continues to be monitored closely in the ICU with multiple medical consultations following. Patient is currently on mechanical vent with an FiO2 of 80% and PEEP is 16. General surgery also following for possible PEG and trach placement and will need to discuss with surgery about when this will occur. Patient remains on fluconazole. She also continues on vitamin and zinc supplements along with oral dexamethasone, clevidipine, Nimbex, IV Lasix, fentanyl and propofol and is off norepinephrine. Chest x-ray shows stable bilateral lung infiltrates. 10/08/2021 Patient is seen this morning continues to be on mechanical vent with an FiO2 of 85% and PEEP of 16. Patient continues with extensive subcutaneous emphysema and plans are for possible PEG and trach placement although on hold until possibly next week once more stable. Patient continues on Cleviprex along with fentanyl and propofol and is receiving IV Lasix daily. Patient also continues on lidocaine drip which is currently on hold and cardiology is following closely. Anticoagulant was resumed for now again until more stable to undergo PEG and trach placement. Chest x-ray today shows persistent bilateral multifocal and confluent increased opacification is with persistent overlying subcutaneous emphysema noted in pneumomediastinum is again redemonstrated. 10/09/2021 Patient evaluated today in ICU mechanical ventilation with FiO2 of 80%. Chest x-ray this morning shows similar multifocal airspace opacities and stable support lines and tubes. Similar subcutaneous emphysema scattered throughout the visualized thorax. PEG and trach plan for next week once more stable. Current meds include Cleviprex, Nimbex, fentanyl, propofol. She is receiving IV fluconazole, as well as IV Lasix. Levophed and Lidocaine gtt;s are on hold. Positive bowel sounds. Current vitals afebrile, heart rate 71, blood pressure 135/60 and oxygen saturation is 93%. Respirations 30. Labs today, white count 17, hemoglobin 11.6, sodium 139, potassium 3.8, BUN 34, creatinine 0.91, CO2 33, calcium 8.7, ALT 54, albumin 2.8 with blood sugars in the 100s. 10/10/2021 Patient evaluated today in the ICU on the mechanical VENT with fio2 of 100%. Po sitive bowel movement today, Stage 2 pressure ulcer on coccyx per RN, optifoam ordered. Per RN they were unable to patient as she was desaturating. They're unable to wean Fi02 currently as she does desaturate with any time of movement. She was lying more on her right side during evaluation and pulse ox was dropping into high 80s she was being repositioned by nurses. Plan is to PEG/TRACH patient tomorrow. Last family update was 4 days ago. We will call and discuss case today. Patient is afebrile, heart rate 84, respirations 30, blood pressure 141/55, 92% oxygen saturation on 100% Fi02, which was increased today up from 70 Fi02%. Labs today show WBC of 15.6, hgbl 10.7, sodium 138, potassium 3.9, chloride 100, CO2 37, glucose 117, calcium 8.2. Chest xray today shows pneumonia, ARDS. 10/11/2021 Patient is seen and evaluated in follow-up this morning continues to be closely monitored in the ICU and patient is continued on FiO2 of 90% and PEEP is 16 with multiple medical consultations following. Chest x-ray today shows new left- sided pneumothorax estimated 10-20% with overlying subcutaneous emphysema and pneumomediastinum redemonstrated with bilateral multifocal and confluent opac ification's redemonstrated consistent with COVID-19 infection and/or arts and no significant change from one day previous. Patient is status post left chest tube insertion with pulmonary physical medicine physician. Cardiology following and patient is off lidocaine drip and maintaining sinus rhythm. Patient also continues on vitamin and zinc supplements along with oral dexamethasone and patient continues on IV Lasix 40 mg daily. Patient also continues off norepinephrine and is currently maintained on IV cefepime along with fluconazole. General surgery following as well and plan is for peg and trach placement in the am 10/12/2021 Patient is seen in the ICU this morning continues to be closely monitored by multiple medical consultations. Patient was scheduled for PEG and trach placement with general surgery Dr. Nelson today although canceled as patient became hypotensive requiring Levophed along with acute blood loss anemia and hemoglobin dropped to 6.5 this morning requiring 1 unit of PRBC. Patient continues with left chest tube with pneumothorax and chest x-ray today shows the jahaira is difficult to clearly identify on the present exam and the ET tube may be approximately 1 cm from the jahaira and there are bilateral chest tubes present with continued diffuse interstitial opacification is and more focal bibasilar opacification is with subcutaneous emphysema persists along the upper chest with slight improvement on the left. No appreciable pneumothorax noted. Patient having worsening right pleural effusion last night and received a right- sided chest tube with pulmonary physical medicine physician. FiO2 is 90% and PEEP of 16. Again overall prognosis remains extremely poor and guarded. 10/13/2021 Patient is seen in follow-up this morning in the ICU with multiple medical consultations following. Lengthy discussion was had with pulmonary physical medicine physician and family members and would like to continue with full CODE STATUS and plan is in place for PEG tube and tracheostomy placement tomorrow. Anticoagulant on hold and Dr. Nelson plans for surgery tomorrow. Patient continues on oral dexamethasone along with IV cefepime, vitamin and zinc supplements. Patient also continues on Cleviprex and Nimbex. Patient also continues on fentanyl and propofol and will continue. Chest x-ray today shows stable portable chest with bilateral chest tubes without sizable pneumothorax identified and continued subcutaneous air persists with persistent interstitial changes bilaterally with airspace disease in the bilateral lung bases that are unchanged. FiO2 is 60% and PEEP of 16. 10/14/2021 Patient is seen and evaluated in the ICU being closely monitored with multiple medical consultations following. at the bedside today and had detailed discussion with overall prognosis. Plan is to proceed with PEG tube and tracheostomy placement with surgery Dr. Nelson today and anticoagulant continues to be on hold for this procedure. Patient continues on mechanical ventilation with an FiO2 of 70% and PEEP of 16. Chest x-ray today shows improving infiltrate with bibasilar residual and bilateral chest tubes remain present with no pneumothorax evident on either side and again subcutaneous emphysema is noted. 10/15/2021 Patient is seen in the ICU being closely monitored. Patient is status post PEG and trach placement yesterday. Chest x-ray today shows bilateral patchy lung infiltrates greater at the right base with diffuse increased lung markings and bilateral chest tubes remain present and subcutaneous emphysema on the right is diminished. Patient continues with an FI02 of 60 and peep is 16. To resume tube feeds per surgery. Patient continues on norepinephrine and sedation. Patient is receiving IV lasix daily. 10/16/2021 Patient is currently in the MICU and remains on ventilator. Status post tracheostomy and PEG tube placement on 10/14/2021. Patient is sedated and paralyzed. Also on Cleviprex. Chest x-ray showed no acute cardiopulmonary disease with no interval changes. Laboratory data showed WBC 16.9 hemoglobin 8.9 and platelets 278 BUN 19 and creatinine 0.5 and calcium 8.1 patient is being continued on dexamethasone 6 mg daily, Lasix 40 mg IV daily and multivitamins and anticoagulation with Eliquis. Pulmonary and general surgery is on board. 10/17/2021 Patient is in the MICU. Remains on the current ventilator via tracheostomy. Status post tracheostomy and PEG tube placement on 10/14/2021. Sedated and paralyzed and also on fentanyl drip. Currently on assist control with tidal volume of 420, FiO2 80% and PEEP of 16. Respiratory of 30. Chest x-ray showed no interval change in acute cardiopulmonary disease Laboratory data showed WBC 15.8 hemoglobin 8.2 and platelets 271 Sodium 136 potassium 3.1 chloride 100 bicarb is 32 BUN 21 creatinine 0.48 and albumin 2.3 Patient is being continued on Lasix IV, dexamethasone and anticoagulation with Eliquis. 10/18/2021 Patient is seen in follow-up and continues in the ICU with multiple medical consultations following. Patient continues on mechanical vent with an FI02 of 70% and peep is 16. Chest xray shows overall stable exam with interstitial changes and bilateral patchy infiltrates with right greater than left and greater at the bases with bilateral chest tubes noted. no appreciable pneumothorax. Patient continues on propofol and fentanyl along with cleviprex and rocuronium. Eliquis has been resumed. Potassium is 3.3 and will be replaced per protocol. Patient also continues to receive IV lasix daily. 10/19/2021 Patient is seen this morning and continues to be in the ICU with multiple medical consultations following. Patient continues with bilateral chest tubes and remains on mechanical ventilation with an FiO2 of 65% and PEEP is 16. Chest x-ray today shows Bilateral multifocal and confluent opacification greatest in the lower lungs consistent with COVID-19 infection and/or ARDS all redemonst rated with no significant change from one day earlier and continued bilateral chest tubes without pneumothorax redemonstrated. 10/20/2021 Patient continues to be in the ICU under close critical monitoring with multiple medical consultations following. Patient continues with bilateral chest tubes although per nursing staff may possibly discontinued today. Chest x-ray today shows stable portable chest with no change in scattered mixed interstitial and alveolar infiltrates. Patient remains on mechanical ventilation via tracheostomy with an FiO2 of 55% and PEEP is 15. Patient continues on Cleviprex along with rocuronium and sedation. 10/21/2021 Patient continues in the MICU being closely monitored. Chest tubes were removed today and chest xray stable with interstitial changes and basilar ground glass, that is similar to previous with slight improvement. Patient continues on mechanical vent with an FI02 of 70% and peep is 14. Patient remains sedated and per nursing staff working on weaning paralytics. Patient continued on rocuronium. Patient is tolerating tube feeds and also continues on IV lasix daily with generalized edema noted throughout. 10/22/2021 Patient is currently MICU. Patient was taken off paralytic and chest tubes yesterday. Continued on pressure support with PEEP of 13. 88 this morning patient again desaturated. Patient became hypotensive and patient was started on norepinephrine. Chest x-ray showed large pneumothorax on the right. Right chest tube was r einserted. Patient is on pressure control. Remains sedated and mechanically ventilated. Laboratory data showed WBC 13.7 hemoglobin 7.7 and platelets 314 Sodium 140 potassium 3.0 chloride 102 bicarb is 37 BUN 19 and creatinine 0.44 and calcium 8.1 Patient is being continued dexamethasone multivitamins and anticoagulation with Eliquis. Patient is also on IV Lasix. Potassium will be replaced. 10/23/2021 Patient is currently MICU. Patient is on mechanical ventilator via trach tube. Patient developed right-sided tension pneumothorax. Again patient had issues with pneumothorax around 10 PM yesterday. Chest tube has to be replaced. Patient is also requiring pressor support. Off pressors this morning. On pressure support. PEEP of 13 and FiO2 100%. Laboratory data showed WBC 13.7 hemoglobin 7.7 and platelets 314 Sodium 140 potassium 3.0 chloride 102 bicarb is 37 BUN 19 and creatinine 0.44 and calcium 8.1 cultures have been negative. Patient is being current on dexamethasone, Eliquis and also IV Lasix 40 mg daily. Current medications reviewed. Review of systems: Unable to obtain as patient is mechanically intubated and sedated Objective - Vital Signs Vital signs: Vital Signs Temp 99.8 F H 10/23/21 12:00 Pulse 92 10/23/21 15:00 Resp 28 H 10/23/21 15:00 BP 101/60 10/23/21 15:00 Pulse Ox 99 10/23/21 15:00 Intake & Output 10/22/21 10/23/21 10/23/21 18:59 06:59 18:59 Intake Total 676.660 2835.238 644.210 Output Total 2510 700 1670 Balance -1623.732 540.238 -1025.790 Weight 90.5 kg 91.9 kg Intake: IV 276 276 184 0.9 NS 240 240 160 pressure bag 36 36 24 Intake, IV Titration 400.268 754.238 210.210 Amount Norepinephrine 8 mg In 100.268 127.346 10.210 Sodium Chloride 0.9% 250 ml @ 0.05 MCG/KG/MIN 9. 143 mls/hr IV .Q24H [facility] Rx#:[id number] fentaNYL (PF) 2,500 mcg 332.953 In Sodium Chloride 0.9% 200 ml @ 0.5 MCG/KG/HR 4. 6 mls/hr IV .Q24H [facility] Rx# :[id number] propofoL 1,000 mg In 300 293.939 200.000 Empty Bag 1 bag @ Titrate IV .Q0M [facility] Rx#: [id number] Tube Feeding 130 120 90 Other 80 90 160 Output: Chest Tube Drainage 50 80 Chest Tube Right 50 80 Urine 2460 620 1670 Other: Voiding Method Indwelling Catheter Indwelling Catheter Indwelling Catheter ABP, PAP, CO, CI - Last Documented Arterial Blood Pressure 101/52 - Exam Physical Exam: Gen: This is a 61-year-old female currently sedated and intubated. mechanical ventilation Fio2 60% with a PEEP of 16 HEENT: Head is atraumatic, normocephalic. Pupils equal, round. Sclerae is anicteric. tracheostomy noted NECK: Supple. No JVD. No lymphadenopathy. No thyromegaly. subcutaneous emphysema noted in the neck and chest wall area bilaterally extensive. LUNGS: Diminished breath sounds bilaterally with coarse rhonchi and crackles noted. Left more diminished than right. No intercostal retractions. Chest tube in place. HEART: S1, S2 are muffled ABDOMEN: Soft. Bowel sounds are present. No masses. No tenderness. peg tube noted. EXTREMITIES: No pedal edema. No calf tenderness. generalized edema noted NEUROLOGICAL: Patient is currently intubated and sedated - Labs CBC & Chem 7: 10/24/21 04:15 10/24/21 17:21 Labs: Abnormal Lab Results - Last 24 Hours (Table) 10/22/21 10/22/21 10/22/21 Range/Units 18:00 22:36 23:16 WBC (3.8-10.6) k/uL RBC (3.80-5.40) m/uL Hgb (11.4-16.0) gm/dL Hct (34.0-46.0) % RDW (11.5-15.5) % Neutrophils # (1.3-7.7) k/uL ABG pH 7.63 H* (7.35-7.45) ABG pCO2 (35-45) mmHg ABG pO2 43 L* (83-108) mmHg ABG HCO3 38 H (21-25) mmol/L ABG Total CO2 39 H (19-24) mmol/L ABG O2 Saturation 85.6 L (94-97) % Potassium (3.5-5.1) mmol/L Carbon Dioxide (22-30) mmol/L BUN (7-17) mg/dL Creatinine (0.52-1.04) mg/dL POC Glucose (mg/dL) 153 H 106 H (75-99) mg/dL Calcium (8.4-10.2) mg/dL 10/23/21 10/23/21 10/23/21 Range/Units 04:20 04:20 05:43 WBC 13.7 H (3.8-10.6) k/uL RBC 2.67 L (3.80-5.40) m/uL Hgb 7.7 L (11.4-16.0) gm/dL Hct 24.9 L (34.0-46.0) % RDW 18.0 H (11.5-15.5) % Neutrophils # 10.6 H (1.3-7.7) k/uL ABG pH 7.58 H* (7.35-7.45) ABG pCO2 (35-45) mmHg ABG pO2 63 L (83-108) mmHg ABG HCO3 37 H (21-25) mmol/L ABG Total CO2 38 H (19-24) mmol/L ABG O2 Saturation (94-97) % Potassium 3.0 L (3.5-5.1) mmol/L Carbon Dioxide 37 H (22-30) mmol/L BUN 19 H (7-17) mg/dL Creatinine 0.44 L (0.52-1.04) mg/dL POC Glucose (mg/dL) (75-99) mg/dL Calcium 8.1 L (8.4-10.2) mg/dL 10/23/21 10/23/21 10/23/21 Range/Units 05:49 11:44 12:30 WBC (3.8-10.6) k/uL RBC (3.80-5.40) m/uL Hgb (11.4-16.0) gm/dL Hct (34.0-46.0) % RDW (11.5-15.5) % Neutrophils # (1.3-7.7) k/uL ABG pH (7.35-7.45) ABG pCO2 (35-45) mmHg ABG pO2 (83-108) mmHg ABG HCO3 (21-25) mmol/L ABG Total CO2 (19-24) mmol/L ABG O2 Saturation (94-97) % Potassium 3.4 L (3.5-5.1) mmol/L Carbon Dioxide (22-30) mmol/L BUN (7-17) mg/dL Creatinine (0.52-1.04) mg/dL POC Glucose (mg/dL) 109 H 184 H (75-99) mg/dL Calcium (8.4-10.2) mg/dL 10/23/21 Range/Units 14:46 WBC (3.8-10.6) k/uL RBC (3.80-5.40) m/uL Hgb (11.4-16.0) gm/dL Hct (34.0-46.0) % RDW (11.5-15.5) % Neutrophils # (1.3-7.7) k/uL ABG pH 7.50 H (7.35-7.45) ABG pCO2 48 H (35-45) mmHg ABG pO2 167 H (83-108) mmHg ABG HCO3 38 H (21-25) mmol/L ABG Total CO2 39 H (19-24) mmol/L ABG O2 Saturation 100.0 H (94-97) % Potassium (3.5-5.1) mmol/L Carbon Dioxide (22-30) mmol/L BUN (7-17) mg/dL Creatinine (0.52-1.04) mg/dL POC Glucose (mg/dL) (75-99) mg/dL Calcium (8.4-10.2) mg/dL Assessment and Plan Assessment: Assessment: Acute COVID-19 infection with acute COVID-19 bilateral interstitial pneumonia with hypoxic hypercarbic respiratory failure on mechanical vent.S/p trach and PEG placement on 10/14/2021.Patient developed pneumothorax and chest tube was reinserted on 08/21/2022 due to tension pneumothorax on the right. Subcutaneous emphysema of the neck and chest with a left pneumothorax 10-15%. Chest tubes removed. status post peg tube and tracheostomy placement Left pneumothorax status post chest tube placement Right-sided pleural effusion with new small right pneumothorax status post chest tube placement Acute blood loss anemia secondary to bilateral chest tube placements with a drop in hemoglobin to 6.5 and was given 1 unit of PRBC, possible hypovolemic shock requiring pressor support Non-sustained ventricular tachycardia, currently sinus Acute left leg deep vein thrombosis Acute respiratory acidosis Primary hypercoagulable state and factor V week deficiency candidiasis secondary to prolonged indwelling Corbin catheter Mild transaminitis, possibly secondary to COVID-19 History of DVT History of degenerative joint disease History of fibromyalgia Acute respiratory acidosis Increased white blood count anemia, of undetermined etiology Elevated inflammatory markers of COVID-19 Obesity with a body mass index of 38.1 Full code Plan: Patient developed right-sided tension pneumothorax and chest tube was reinserted on 10/22/21.Patient is requiring pressor support. Currently on sedation. Recommend to continue with current medications and follow along closely with multiple medical consultations. Prognosis remains extremely poor and guarded with multiple complex medical issues noted. Patient continues on mechanical ventilation via tracheostomy and FiO2 70% with PEEP of 14. Recommend to continue with current medications. Recommend repeat labs and continued close monitoring. Again due to multiple complex medical issues overall prognosis is extremely poor and quite guarded. Time with Patient: Greater than 30
--- NOTE | 2021-10-24 22:55 | P.PN ---
Subjective Progress Note Date: 10/24/21 This is a 61-year-old female who was recently admitted with acute COVID-19 pneumonia with acute COVID-19 bilateral interstitial pneumonia and also with transaminitis and being closely monitored. Patient remains in the ICU and currently intubated and sedated with an FiO2 of 70% and PEEP is 18. 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 Patient did have a venous Doppler study done recently which showed left leg DVT and patient is maintained on Eliquis will continue. Patient also continues on empiric antibiotics and awaiting for sputum culture finalized. Patient was started on IV cefepime and will continue. Patient is also continued on oral dexamethasone along with vitamin and zinc supplements and will continue. Patient with some mild volume overload and given a dose of IV Lasix push today. 09/29/2021 Patient is seen and evaluated this morning continues to be closely monitored in the ICU and continues to be on mechanical ventilation and sedated. FiO2 was increased at 80% with a PEEP of 18 and oxygen saturations between 87-91%. Patient developing subcutaneous emphysema in the neck and chest wall area and chest x-ray today shows bilateral multifocal and confluent opacification is redemonstrated consistent with COVID-19 infection with a new small left apical pneumothorax estimated under 5% with new pneumomediastinum and recurrent overlying subcutaneous emphysema noted. Patient is white blood count mildly elevated at 16.1 and is continued on oral dexamethasone along with oral eliquis for anticoagulation. Patient continues to be on IV cefepime and blood and sputum cultures are negative thus far. 09/30/2021 Patient is seen today continues to be closely monitored in the ICU with multiple medical consultations following. Patient continues to be mechanically intubated and sedated with continued subcutaneous emphysema noted. Chest xray shows a trace left apical pneumothorax that is minimally smaller 7mm versus 1cm previously, extensive bilateral subcutaneous emphysema persists and diffuse interstitial changes and bilateral patchy opacities persist with slight improvement in aeration in the lower lungs. Per nursing staff corbin was clogged with copious amounts of white discharge and will add diflucan and corbin catheter has been changed and draining adequately. Patient continues on IV cefepime. Patient tolerating tube feeds and will continue. 10/01/2021 Patient is seen and evaluated in follow up this morning and continues to be closely monitored. Multiple medical consultations following and patient con tinues to be on mechanical vent and sedated. Patient continues on IV Cefepime and diflucan. Patient chest xray today shows stable extensive subcutaneous emphysema, no pneumothorax, and patchy bilateral lung infiltrates remain present. INflammatory markers trending down. 10/04/2021 Patient is seen in follow-up continues to be closely monitored in the ICU. Patient remains on mechanical vent with an FI02 of 65% and peep is 18. Weaning trials being attempted with pulmonary office asst following closely. Patient continues with extensive subq emphysema noted on exam. 10/05/2021 Patient Is seen and evaluated this morning with continued attempts at weaning and continues on mechanical vent and intubated with pulmonary office asst following closely. Patient remains on Eliquis which will be held as surgery Dr. Nelson was consulted for possible PEG and trach tube placement for unsuccessful attempts at weaning from ventilation and prolonged hospitalization on mechanical vent. Chest x-ray today shows recurrent tiny left apical pneumothorax estimated under 5% with worsening overlying subcutaneous emphysema and again pneumomediastinum redemonstrated with multifocal confluent opacification's redemonstrated consistent with COVID-19 infection and/or arts are redemonstrated with no significant change from one day previously. Patient continues on FiO2 of 65% and PEEP was weaned down to 14 today. IV cefepime discontinued. 10/06/2021 Patient is seen in follow-up this morning per nursing staff patient had multiple runs of ectopy an irregular heart rate and rhythms with PVCs and cardiology consulted. Patient was placed on lidocaine drip and was originally on eliquis is currently on hold for possible PEG and trach placement with general surgery following. Patient had difficulty maintaining oxygen saturations and FiO2 was increased to 100% and PEEP continues at 14. Multiple medical consultations following and patient continues on oral steroids along with vitamin and zinc supplements along with fluconazole. Patient being started on IV Lasix daily and recommend close monitoring of electrolytes and kidney functions. 10/07/2021 Patient is seen in follow-up this morning continues to be monitored closely in the ICU with multiple medical consultations following. Patient is currently on mechanical vent with an FiO2 of 80% and PEEP is 16. General surgery also following for possible PEG and trach placement and will need to discuss with surgery about when this will occur. Patient remains on fluconazole. She also continues on vitamin and zinc supplements along with oral dexamethasone, clevidipine, Nimbex, IV Lasix, fentanyl and propofol and is off norepinephrine. Chest x-ray shows stable bilateral lung infiltrates. 10/08/2021 Patient is seen this morning continues to be on mechanical vent with an FiO2 of 85% and PEEP of 16. Patient continues with extensive subcutaneous emphysema and plans are for possible PEG and trach placement although on hold until possibly next week once more stable. Patient continues on Cleviprex along with fentanyl and propofol and is receiving IV Lasix daily. Patient also continues on lidocaine drip which is currently on hold and cardiology is following closely. Anticoagulant was resumed for now again until more stable to undergo PEG and trach placement. Chest x-ray today shows persistent bilateral multifocal and confluent increased opacification is with persistent overlying subcutaneous emphysema noted in pneumomediastinum is again redemonstrated. 10/09/2021 Patient evaluated today in ICU mechanical ventilation with FiO2 of 80%. Chest x-ray this morning shows similar multifocal airspace opacities and stable support lines and tubes. Similar subcutaneous emphysema scattered throughout the visualized thorax. PEG and trach plan for next week once more stable. Current meds include Cleviprex, Nimbex, fentanyl, propofol. She is receiving IV fluconazole, as well as IV Lasix. Levophed and Lidocaine gtt;s are on hold. Positive bowel sounds. Current vitals afebrile, heart rate 71, blood pressure 135/60 and oxygen saturation is 93%. Respirations 30. Labs today, white count 17, hemoglobin 11.6, sodium 139, potassium 3.8, BUN 34, creatinine 0.91, CO2 33, calcium 8.7, ALT 54, albumin 2.8 with blood sugars in the 100s. 10/10/2021 Patient evaluated today in the ICU on the mechanical VENT with fio2 of 100%. Po sitive bowel movement today, Stage 2 pressure ulcer on coccyx per RN, optifoam ordered. Per RN they were unable to patient as she was desaturating. They're unable to wean Fi02 currently as she does desaturate with any time of movement. She was lying more on her right side during evaluation and pulse ox was dropping into high 80s she was being repositioned by nurses. Plan is to PEG/TRACH patient tomorrow. Last family update was 4 days ago. We will call and discuss case today. Patient is afebrile, heart rate 84, respirations 30, blood pressure 141/55, 92% oxygen saturation on 100% Fi02, which was increased today up from 70 Fi02%. Labs today show WBC of 15.6, hgbl 10.7, sodium 138, potassium 3.9, chloride 100, CO2 37, glucose 117, calcium 8.2. Chest xray today shows pneumonia, ARDS. 10/11/2021 Patient is seen and evaluated in follow-up this morning continues to be closely monitored in the ICU and patient is continued on FiO2 of 90% and PEEP is 16 with multiple medical consultations following. Chest x-ray today shows new left- sided pneumothorax estimated 10-20% with overlying subcutaneous emphysema and pneumomediastinum redemonstrated with bilateral multifocal and confluent opac ification's redemonstrated consistent with COVID-19 infection and/or arts and no significant change from one day previous. Patient is status post left chest tube insertion with pulmonary office asst. Cardiology following and patient is off lidocaine drip and maintaining sinus rhythm. Patient also continues on vitamin and zinc supplements along with oral dexamethasone and patient continues on IV Lasix 40 mg daily. Patient also continues off norepinephrine and is currently maintained on IV cefepime along with fluconazole. General surgery following as well and plan is for peg and trach placement in the am 10/12/2021 Patient is seen in the ICU this morning continues to be closely monitored by multiple medical consultations. Patient was scheduled for PEG and trach placement with general surgery Dr. Nelson today although canceled as patient became hypotensive requiring Levophed along with acute blood loss anemia and hemoglobin dropped to 6.5 this morning requiring 1 unit of PRBC. Patient continues with left chest tube with pneumothorax and chest x-ray today shows the jahaira is difficult to clearly identify on the present exam and the ET tube may be approximately 1 cm from the jahaira and there are bilateral chest tubes present with continued diffuse interstitial opacification is and more focal bibasilar opacification is with subcutaneous emphysema persists along the upper chest with slight improvement on the left. No appreciable pneumothorax noted. Patient having worsening right pleural effusion last night and received a right- sided chest tube with pulmonary office asst. FiO2 is 90% and PEEP of 16. Again overall prognosis remains extremely poor and guarded. 10/13/2021 Patient is seen in follow-up this morning in the ICU with multiple medical consultations following. Lengthy discussion was had with pulmonary office asst and family members and would like to continue with full CODE STATUS and plan is in place for PEG tube and tracheostomy placement tomorrow. Anticoagulant on hold and Dr. Nelson plans for surgery tomorrow. Patient continues on oral dexamethasone along with IV cefepime, vitamin and zinc supplements. Patient also continues on Cleviprex and Nimbex. Patient also continues on fentanyl and propofol and will continue. Chest x-ray today shows stable portable chest with bilateral chest tubes without sizable pneumothorax identified and continued subcutaneous air persists with persistent interstitial changes bilaterally with airspace disease in the bilateral lung bases that are unchanged. FiO2 is 60% and PEEP of 16. 10/14/2021 Patient is seen and evaluated in the ICU being closely monitored with multiple medical consultations following. at the bedside today and had detailed discussion with overall prognosis. Plan is to proceed with PEG tube and tracheostomy placement with surgery Dr. Nelson today and anticoagulant continues to be on hold for this procedure. Patient continues on mechanical ventilation with an FiO2 of 70% and PEEP of 16. Chest x-ray today shows improving infiltrate with bibasilar residual and bilateral chest tubes remain present with no pneumothorax evident on either side and again subcutaneous emphysema is noted. 10/15/2021 Patient is seen in the ICU being closely monitored. Patient is status post PEG and trach placement yesterday. Chest x-ray today shows bilateral patchy lung infiltrates greater at the right base with diffuse increased lung markings and bilateral chest tubes remain present and subcutaneous emphysema on the right is diminished. Patient continues with an FI02 of 60 and peep is 16. To resume tube feeds per surgery. Patient continues on norepinephrine and sedation. Patient is receiving IV lasix daily. 10/16/2021 Patient is currently in the MICU and remains on ventilator. Status post tracheostomy and PEG tube placement on 10/14/2021. Patient is sedated and paralyzed. Also on Cleviprex. Chest x-ray showed no acute cardiopulmonary disease with no interval changes. Laboratory data showed WBC 16.9 hemoglobin 8.9 and platelets 278 BUN 19 and creatinine 0.5 and calcium 8.1 patient is being continued on dexamethasone 6 mg daily, Lasix 40 mg IV daily and multivitamins and anticoagulation with Eliquis. Pulmonary and general surgery is on board. 10/17/2021 Patient is in the MICU. Remains on the current ventilator via tracheostomy. Status post tracheostomy and PEG tube placement on 10/14/2021. Sedated and paralyzed and also on fentanyl drip. Currently on assist control with tidal volume of 420, FiO2 80% and PEEP of 16. Respiratory of 30. Chest x-ray showed no interval change in acute cardiopulmonary disease Laboratory data showed WBC 15.8 hemoglobin 8.2 and platelets 271 Sodium 136 potassium 3.1 chloride 100 bicarb is 32 BUN 21 creatinine 0.48 and albumin 2.3 Patient is being continued on Lasix IV, dexamethasone and anticoagulation with Eliquis. 10/18/2021 Patient is seen in follow-up and continues in the ICU with multiple medical consultations following. Patient continues on mechanical vent with an FI02 of 70% and peep is 16. Chest xray shows overall stable exam with interstitial changes and bilateral patchy infiltrates with right greater than left and greater at the bases with bilateral chest tubes noted. no appreciable pneumothorax. Patient continues on propofol and fentanyl along with cleviprex and rocuronium. Eliquis has been resumed. Potassium is 3.3 and will be replaced per protocol. Patient also continues to receive IV lasix daily. 10/19/2021 Patient is seen this morning and continues to be in the ICU with multiple medical consultations following. Patient continues with bilateral chest tubes and remains on mechanical ventilation with an FiO2 of 65% and PEEP is 16. Chest x-ray today shows Bilateral multifocal and confluent opacification greatest in the lower lungs consistent with COVID-19 infection and/or ARDS all redemonst rated with no significant change from one day earlier and continued bilateral chest tubes without pneumothorax redemonstrated. 10/20/2021 Patient continues to be in the ICU under close critical monitoring with multiple medical consultations following. Patient continues with bilateral chest tubes although per nursing staff may possibly discontinued today. Chest x-ray today shows stable portable chest with no change in scattered mixed interstitial and alveolar infiltrates. Patient remains on mechanical ventilation via tracheostomy with an FiO2 of 55% and PEEP is 15. Patient continues on Cleviprex along with rocuronium and sedation. 10/21/2021 Patient continues in the MICU being closely monitored. Chest tubes were removed today and chest xray stable with interstitial changes and basilar ground glass, that is similar to previous with slight improvement. Patient continues on mechanical vent with an FI02 of 70% and peep is 14. Patient remains sedated and per nursing staff working on weaning paralytics. Patient continued on rocuronium. Patient is tolerating tube feeds and also continues on IV lasix daily with generalized edema noted throughout. 10/22/2021 Patient is currently MICU. Patient was taken off paralytic and chest tubes yesterday. Continued on pressure support with PEEP of 13. 88 this morning patient again desaturated. Patient became hypotensive and patient was started on norepinephrine. Chest x-ray showed large pneumothorax on the right. Right chest tube was r einserted. Patient is on pressure control. Remains sedated and mechanically ventilated. Laboratory data showed WBC 13.7 hemoglobin 7.7 and platelets 314 Sodium 140 potassium 3.0 chloride 102 bicarb is 37 BUN 19 and creatinine 0.44 and calcium 8.1 Patient is being continued dexamethasone multivitamins and anticoagulation with Eliquis. Patient is also on IV Lasix. Potassium will be replaced. 10/23/2021 Patient is currently MICU. Patient is on mechanical ventilator via trach tube. Patient developed right-sided tension pneumothorax. Again patient had issues with pneumothorax around 10 PM yesterday. Chest tube has to be replaced. Patient is also requiring pressor support. Off pressors this morning. On pressure support. PEEP of 13 and FiO2 100%. Laboratory data showed WBC 13.7 hemoglobin 7.7 and platelets 314 Sodium 140 potassium 3.0 chloride 102 bicarb is 37 BUN 19 and creatinine 0.44 and calcium 8.1 cultures have been negative. Patient is being current on dexamethasone, Eliquis and also IV Lasix 40 mg daily. 10/24/2021 Patient is currently in the MICU. Currently on mechanical ventilator via tracheal tube. Continue propofol and fentanyl. Remains pressure support with PEEP of 13 FiO2 reduced to 70%. Chest x-ray showed bilateral multifocal and confluent opacities consistent with COVID-19 infection and ARDS are redemonstrated and stable. Right-sided chest tube with small apical pneumothorax estimated 10 to 15% improved from 1 day earlier. Pneumo mediastinum noted. Laboratory data showed WBC 14.2 hemoglobin 7.1 and platelets 317 Sodium 140 potassium 3.2 chloride 104 bicarb is 38 BUN 20 and creatinine 0.46 and calcium 7.8. Patient is being continued on dexamethasone, Eliquis and also on IV Lasix. Currently on multivitamins. Current medications reviewed. Review of systems: Unable to obtain as patient is mechanically intubated and sedated Objective - Vital Signs Vital signs: Vital Signs Temp 99.1 F 0206/22 20:00 Pulse 81 10/24/21 21:00 Resp 26 H 10/24/21 21:00 BP 105/59 10/24/21 10:00 Pulse Ox 98 10/24/21 21:00 Intake & Output 10/24/21 10/24/21 10/25/21 06:59 18:59 06:59 Intake Total 801.429 7328.369 114.651 Output Total 455 2715 60 Balance 348.339 -1301.631 54.651 Weight 91.9 kg Intake: IV 299 276 46 0.9 NS 260 240 40 pressure bag 39 36 6 Intake, IV Titration 334.339 787.369 18.651 Amount Clevidipine Butyrate 25 74.0 mg In Empty Bag 1 bag @ 1 MG/HR 2 mls/hr IV .Q24H [facility] Rx#:[id number] Norepinephrine 8 mg In 137.384 0 18.651 Sodium Chloride 0.9% 250 ml @ 0.05 MCG/KG/MIN 9. 143 mls/hr IV .Q24H [facility] Rx#:[id number] fentaNYL (PF) 2,500 mcg 421.974 In Sodium Chloride 0.9% 200 ml @ 0.5 MCG/KG/HR 4. 6 mls/hr IV .Q24H [facility] Rx# :[id number] propofoL 1,000 mg In 196.955 291.395 Empty Bag 1 bag @ Titrate IV .Q0M [facility] Rx#: [id number] Tube Feeding 110 110 20 Other 60 240 30 Output: Chest Tube Drainage 5 20 Chest Tube Right 5 20 Urine 450 2695 60 Other: Voiding Method Indwelling Catheter Indwelling Catheter Indwelling Catheter ABP, PAP, CO, CI - Last Documented Arterial Blood Pressure 124/54 - Exam Physical Exam: Gen: This is a 61-year-old female currently sedated and intubated. mechanical ventilation Fio2 60% with a PEEP of 16 HEENT: Head is atraumatic, normocephalic. Pupils equal, round. Sclerae is anicteric. tracheostomy noted NECK: Supple. No JVD. No lymphadenopathy. No thyromegaly. subcutaneous emphysema noted in the neck and chest wall area bilaterally extensive. LUNGS: Diminished breath sounds bilaterally with coarse rhonchi and crackles noted. Left more diminished than right. No intercostal retractions. Chest tube in place. HEART: S1, S2 are muffled ABDOMEN: Soft. Bowel sounds are present. No masses. No tenderness. peg tube noted. EXTREMITIES: No pedal edema. No calf tenderness. generalized edema noted NEUROLOGICAL: Patient is currently intubated and sedated - Labs CBC & Chem 7: 10/24/21 04:15 10/24/21 17:21 Labs: Abnormal Lab Results - Last 24 Hours (Table) 10/23/21 10/24/21 10/24/21 Range/Units 23:15 04:15 04:15 WBC 14.2 H (3.8-10.6) k/uL RBC 2.55 L (3.80-5.40) m/uL Hgb 7.1 L (11.4-16.0) gm/dL Hct 23.8 L (34.0-46.0) % MCHC 29.7 L (31.0-37.0) g/dL RDW 17.1 H (11.5-15.5) % ABG pH (7.35-7.45) ABG pCO2 (35-45) mmHg ABG HCO3 (21-25) mmol/L ABG Total CO2 (19-24) mmol/L ABG O2 Saturation (94-97) % Potassium 3.4 L (3.5-5.1) mmol/L Carbon Dioxide 38 H (22-30) mmol/L BUN 20 H (7-17) mg/dL Creatinine 0.46 L (0.52-1.04) mg/dL Glucose 103 H (74-99) mg/dL POC Glucose (mg/dL) 131 H (75-99) mg/dL Calcium 7.8 L (8.4-10.2) mg/dL 10/24/21 10/24/21 10/24/21 Range/Units 05:23 05:44 10:53 WBC (3.8-10.6) k/uL RBC (3.80-5.40) m/uL Hgb (11.4-16.0) gm/dL Hct (34.0-46.0) % MCHC (31.0-37.0) g/dL RDW (11.5-15.5) % ABG pH 7.50 H (7.35-7.45) ABG pCO2 47 H (35-45) mmHg ABG HCO3 37 H (21-25) mmol/L ABG Total CO2 39 H (19-24) mmol/L ABG O2 Saturation 99.0 H (94-97) % Potassium 3.3 L (3.5-5.1) mmol/L Carbon Dioxide 37 H (22-30) mmol/L BUN 20 H (7-17) mg/dL Creatinine 0.46 L (0.52-1.04) mg/dL Glucose 119 H (74-99) mg/dL POC Glucose (mg/dL) 121 H (75-99) mg/dL Calcium 8.1 L (8.4-10.2) mg/dL 10/24/21 10/24/21 Range/Units 12:08 17:22 WBC (3.8-10.6) k/uL RBC (3.80-5.40) m/uL Hgb (11.4-16.0) gm/dL Hct (34.0-46.0) % MCHC (31.0-37.0) g/dL RDW (11.5-15.5) % ABG pH (7.35-7.45) ABG pCO2 (35-45) mmHg ABG HCO3 (21-25) mmol/L ABG Total CO2 (19-24) mmol/L ABG O2 Saturation (94-97) % Potassium (3.5-5.1) mmol/L Carbon Dioxide (22-30) mmol/L BUN (7-17) mg/dL Creatinine (0.52-1.04) mg/dL Glucose (74-99) mg/dL POC Glucose (mg/dL) 167 H 149 H (75-99) mg/dL Calcium (8.4-10.2) mg/dL Assessment and Plan Assessment: Assessment: Acute COVID-19 infection with acute COVID-19 bilateral interstitial pneumonia with hypoxic hypercarbic respiratory failure on mechanical vent.S/p trach and PEG placement on 10/14/2021.Patient developed pneumothorax and chest tube was reinserted on 08/21/2022 due to tension pneumothorax on the right. Subcutaneous emphysema of the neck and chest with a left pneumothorax 10-15%. Chest tubes removed. status post peg tube and tracheostomy placement Left pneumothorax status post chest tube placement Right-sided pleural effusion with new small right pneumothorax status post chest tube placement Acute blood loss anemia secondary to bilateral chest tube placements with a drop in hemoglobin to 6.5 and was given 1 unit of PRBC, possible hypovolemic shock requiring pressor support Non-sustained ventricular tachycardia, currently sinus Acute left leg deep vein thrombosis Acute respiratory acidosis Primary hypercoagulable state and factor V week deficiency candidiasis secondary to prolonged indwelling Corbin catheter Mild transaminitis, possibly secondary to COVID-19 History of DVT History of degenerative joint disease History of fibromyalgia Acute respiratory acidosis Increased white blood count anemia, of undetermined etiology Elevated inflammatory markers of COVID-19 Obesity with a body mass index of 38.1 Full code Plan: Patient developed right-sided tension pneumothorax and chest tube was reinserted on 10/22/21.Patient is requiring pressor support. Currently on sedation. Recommend to continue with current medications and follow along closely with multiple medical consultations. Prognosis remains extremely poor and guarded with multiple complex medical issues noted. Patient continues on mechanical ventilation via tracheostomy and FiO2 70% with PEEP of 13. Recommend to continue with current medications. Recommend repeat labs and continued close monitoring. Again due to multiple complex medical issues overall prognosis is extremely poor and quite guarded. Time with Patient: Greater than 30
[2021-10-24 23:36] LABS: Glucose,Whole Blood 115 mg/dL (75-99)
[2021-10-24 23:49] LABS: Glucose,Whole Blood 122 mg/dL (75-99)
[2021-10-25] MEDS ORDERED: SODIUM CHLORIDE 0.9% 1,000 ML IV ONE (00:50)
[2021-10-25 05:00] LABS: ABG Base Excess 12.1 mmol/L; ABG HCO3 37 mmol/L (21-25); ABG Oxygen Saturation 98.9 % (94-97); ABG PCO2 58 mmHg (35-45); ABG PH 7.41 (7.35-7.45); ABG PO2 100 mmHg (83-108); ABG TCO2 39 mmol/L (19-24)
[2021-10-25 05:27] LABS: Anisocytosis Slight; HCT 21.6 % (34.0-46.0); Hypochromasia Marked; MCH 27.8 pg (25.0-35.0); MCHC 29.4 g/dL (31.0-37.0); MCV 94.7 fL (80.0-100.0); Platelet Count 278 k/uL (150-450); Poikilocytosis Slight; RBC 2.28 m/uL (3.80-5.40); WBC 9.1 k/uL (3.8-10.6)
[2021-10-25 05:32] LABS: HGB 6.3 gm/dL (11.4-16.0)
[2021-10-25 05:53] LABS: African American GFR (CKD) >90 (>60 ml/min/1.73 sqM); Anion Gap 0 mmol/L; Blood Urea Nitrogen 22 mg/dL (7-17); Calcium 7.7 mg/dL (8.4-10.2); Carbon Dioxide 35 mmol/L (22-30); Chloride 104 mmol/L (98-107); Glucose 85 mg/dL (74-99); Non-African American GFR(CKD) >90 (>60 ml/min/1.73 sqM); Potassium 3.4 mmol/L (3.5-5.1); Sodium 139 mmol/L (137-145)
[2021-10-25 05:53] LABS: Glucose,Whole Blood 88 mg/dL (75-99)
[2021-10-25] MEDS: INSULIN ASPART (NovoLOG) 100 UNIT/ML VIAL SQ SCH ×3 (05:57→17:47)
[2021-10-25 06:01] LABS: Allen Test Performed? no
[2021-10-25] MEDS: POTASSIUM BICARBONATE/CIT AC 20 MEQ TABLET.EFF NG-TUBE SCH ×2 (06:18→06:44)
--- NOTE | 2021-10-25 07:31 | XR ---
EXAMINATION TYPE: XR chest 1V portable DATE OF EXAM: 10/25/2021 Comparison: 10/24/2021 Clinical History: 61-year-old female covid Findings: Tracheostomy cannula. ACDF hardware. Right PICC tip at the upper right atrium. Right chest tube in pl ricky with redemonstrated small to moderate-sized right-sided pneumothorax. Apical component 2.3 cm susana izzy 2.8 cm, previously. Lateral component 1 cm versus 1.2 cm, previously. Interstitial opacities pers ist bilaterally. Patchy right basilar opacity is similar. Heart remains upper limits of normal in siz e. Impression: 1. Right-sided chest tube in place with continued small to moderate sized right-sided pneumothorax (s lightly smaller in the interval), apical component measuring 2.3 cm versus 2.8 cm, previously. 2. Interstitial opacities persist, pneumonitis versus mild pulmonary edema.
[2021-10-25] MEDS: ZINC SULFATE 220 MG CAP PO SCH (08:37)
[2021-10-25] MEDS: ASCORBIC ACID 500 MG TAB PO SCH ×2 (08:37→20:14)
[2021-10-25] MEDS: dexAMETHasone 2 MG TAB PO SCH (08:37)
[2021-10-25] MEDS: CHLORHEXIDINE GLUCONATE 15 ML CUP MUCOUS MEM SCH ×2 (08:37→20:14)
[2021-10-25] MEDS: FUROSEMIDE 10 MG/ML 4 ML VIAL IV SCH (08:37)
[2021-10-25] MEDS: PANTOPRAZOLE 40 MG/10 ML VIAL IV SCH (08:37)
[2021-10-25] MEDS: APIXABAN 5 MG TAB PO SCH ×2 (08:38→20:14)
[2021-10-25] MEDS: ARTIFICIAL TEARS-HYPROMELLOSE DROPS 15 ML BTL BOTH EYES SCH ×4 (08:38→20:14)
[2021-10-25] MEDS: fentaNYL (PF) 2,500 MCG in SODIUM CHLORIDE 0.9% 200 ML IV SCH ×2 (09:20→18:45)
[2021-10-25] MEDS ORDERED: LIDOCAINE 1% INJ 10MG/ML (20 ML MDV) ONE (09:39)
[2021-10-25] MEDS: CLEVIDIPINE BUTYRATE 25 MG in EMPTY BAG 1 BAG IV SCH ×10 (09:56→23:29)
--- NOTE | 2021-10-25 10:02 | XR ---
EXAMINATION TYPE: XR chest 1V portable DATE OF EXAM: 10/25/2021 Comparison: Earlier today Clinical History: 61-year-old female chest tube placement Findings: Tracheostomy cannula. Right-sided chest tube in place. Redemonstrated small right-sided pneumothorax currently measuring 2.1 cm versus 2.3 cm, previously at the apex and 7 mm laterally versus 1.0 cm, p reviously. Interstitial changes in the lungs persist with patchy bibasilar opacities. Basilar density on the left slightly increased. Right PICC tip at the upper right atrium. Impression: 1. Right-sided chest tube in place. Now small right-sided pneumothorax (2.1 cm at the apex versus 2.3 cm, previously, and 7 mm laterally versus 1.0 cm, previously). 2. Diffuse interstitial changes and patchy bibasilar opacities persist. Slight worsening at the left base.
[2021-10-25] MEDS ORDERED: CISATRACURIUM 2 MG/ML 5 ML VIAL IV ONE (10:20)
--- NOTE | 2021-10-25 10:29 | XR ---
EXAMINATION TYPE: XR chest 1V portable DATE OF EXAM: 10/25/2021 Comparison: Earlier today Clinical History: 61-year-old female new chest tube placement Findings: Tracheostomy cannula. ACDF hardware. In addition to the right-sided chest tube, there has been interv al placement of a right-sided Thoravent catheter. Small basilar component to the pneumothorax is demo nstrated measuring 5 mm laterally and 5 mm medially, unchanged. However, the lateral and apical compo nents appear to have resolved. Interstitial opacity basilar opacities are similar. Tracheostomy cannu la. Heart upper limits of normal in size. Impression: 1. Right-sided chest tube in place. Right-sided Thoravent catheter inserted in the interval. Resoluti on of the apical and lateral components of the pneumothorax. 5 mm basilar components remain. 2. Otherwise, stable exam with interstitial changes and patchy bibasilar densities.
[2021-10-25] MEDS: CISATRACURIUM 200 MG in SODIUM CHLORIDE 0.9% 180 ML IV SCH (11:14)
[2021-10-25 11:56] LABS: Glucose,Whole Blood 202 mg/dL (75-99)
[2021-10-25] MEDS: LACTATED RINGERS 1,000 ML IV SCH (12:12)
--- NOTE | 2021-10-25 13:14 | P.PN ---
Subjective Progress Note Date: 10/25/21 This is a 61-year-old female who was recently admitted with acute COVID-19 pneumonia with acute COVID-19 bilateral interstitial pneumonia and also with transaminitis and being closely monitored. Patient remains in the ICU and currently intubated and sedated with an FiO2 of 70% and PEEP is 18. 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 Patient did have a venous Doppler study done recently which showed left leg DVT and patient is maintained on Eliquis will continue. Patient also continues on empiric antibiotics and awaiting for sputum culture finalized. Patient was started on IV cefepime and will continue. Patient is also continued on oral dexamethasone along with vitamin and zinc supplements and will continue. Patient with some mild volume overload and given a dose of IV Lasix push today. 09/29/2021 Patient is seen and evaluated this morning continues to be closely monitored in the ICU and continues to be on mechanical ventilation and sedated. FiO2 was increased at 80% with a PEEP of 18 and oxygen saturations between 87-91%. Patient developing subcutaneous emphysema in the neck and chest wall area and chest x-ray today shows bilateral multifocal and confluent opacification is redemonstrated consistent with COVID-19 infection with a new small left apical pneumothorax estimated under 5% with new pneumomediastinum and recurrent overlying subcutaneous emphysema noted. Patient is white blood count mildly elevated at 16.1 and is continued on oral dexamethasone along with oral eliquis for anticoagulation. Patient continues to be on IV cefepime and blood and sputum cultures are negative thus far. 09/30/2021 Patient is seen today continues to be closely monitored in the ICU with multiple medical consultations following. Patient continues to be mechanically intubated and sedated with continued subcutaneous emphysema noted. Chest xray shows a trace left apical pneumothorax that is minimally smaller 7mm versus 1cm previously, extensive bilateral subcutaneous emphysema persists and diffuse interstitial changes and bilateral patchy opacities persist with slight improvement in aeration in the lower lungs. Per nursing staff corbin was clogged with copious amounts of white discharge and will add diflucan and corbin catheter has been changed and draining adequately. Patient continues on IV cefepime. Patient tolerating tube feeds and will continue. 10/01/2021 Patient is seen and evaluated in follow up this morning and continues to be closely monitored. Multiple medical consultations following and patient c ontinues to be on mechanical vent and sedated. Patient continues on IV Cefepime and diflucan. Patient chest xray today shows stable extensive subcutaneous emphysema, no pneumothorax, and patchy bilateral lung infiltrates remain present. INflammatory markers trending down. 10/04/2021 Patient is seen in follow-up continues to be closely monitored in the ICU. Patient remains on mechanical vent with an FI02 of 65% and peep is 18. Weaning trials being attempted with pulmonary java technical architect following closely. Patient continues with extensive subq emphysema noted on exam. 10/05/2021 Patient Is seen and evaluated this morning with continued attempts at weaning and continues on mechanical vent and intubated with pulmonary java technical architect following closely. Patient remains on Eliquis which will be held as surgery Dr. Nelson was consulted for possible PEG and trach tube placement for unsuccessful attempts at weaning from ventilation and prolonged hospitalization on mechanical vent. Chest x-ray today shows recurrent tiny left apical pneumothorax estimated under 5% with worsening overlying subcutaneous emphysema and again pneumomediastinum redemonstrated with multifocal confluent opacification's redemonstrated consistent with COVID-19 infection and/or arts are redemonstrated with no significant change from one day previously. Patient continues on FiO2 of 65% and PEEP was weaned down to 14 today. IV cefepime discontinued. 10/06/2021 Patient is seen in follow-up this morning per nursing staff patient had multiple runs of ectopy an irregular heart rate and rhythms with PVCs and cardiology consulted. Patient was placed on lidocaine drip and was originally on eliquis is currently on hold for possible PEG and trach placement with general surgery following. Patient had difficulty maintaining oxygen saturations and FiO2 was increased to 100% and PEEP continues at 14. Multiple medical consultations following and patient continues on oral steroids along with vitamin and zinc supplements along with fluconazole. Patient being started on IV Lasix daily and recommend close monitoring of electrolytes and kidney functions. 10/07/2021 Patient is seen in follow-up this morning continues to be monitored closely in the ICU with multiple medical consultations following. Patient is currently on mechanical vent with an FiO2 of 80% and PEEP is 16. General surgery also following for possible PEG and trach placement and will need to discuss with surgery about when this will occur. Patient remains on fluconazole. She also continues on vitamin and zinc supplements along with oral dexamethasone, clevidipine, Nimbex, IV Lasix, fentanyl and propofol and is off norepinephrine. Chest x-ray shows stable bilateral lung infiltrates. 10/08/2021 Patient is seen this morning continues to be on mechanical vent with an FiO2 of 85% and PEEP of 16. Patient continues with extensive subcutaneous emphysema and plans are for possible PEG and trach placement although on hold until possibly next week once more stable. Patient continues on Cleviprex along with fentanyl and propofol and is receiving IV Lasix daily. Patient also continues on lidocaine drip which is currently on hold and cardiology is following closely. Anticoagulant was resumed for now again until more stable to undergo PEG and trach placement. Chest x-ray today shows persistent bilateral multifocal and confluent increased opacification is with persistent overlying subcutaneous emphysema noted in pneumomediastinum is again redemonstrated. 10/09/2021 Patient evaluated today in ICU mechanical ventilation with FiO2 of 80%. Chest x-ray this morning shows similar multifocal airspace opacities and stable support lines and tubes. Similar subcutaneous emphysema scattered throughout the visualized thorax. PEG and trach plan for next week once more stable. Current meds include Cleviprex, Nimbex, fentanyl, propofol. She is receiving IV fluconazole, as well as IV Lasix. Levophed and Lidocaine gtt;s are on hold. Positive bowel sounds. Current vitals afebrile, heart rate 71, blood pressure 135/60 and oxygen saturation is 93%. Respirations 30. Labs today, white count 17, hemoglobin 11.6, sodium 139, potassium 3.8, BUN 34, creatinine 0.91, CO2 33, calcium 8.7, ALT 54, albumin 2.8 with blood sugars in the 100s. 10/10/2021 Patient evaluated today in the ICU on the mechanical VENT with fio2 of 100%. Positive bowel movement today, Stage 2 pressure ulcer on coccyx per RN, optifoam ordered. Per RN they were unable to patient as she was desaturating. They're unable to wean Fi02 currently as she does desaturate with any time of movement. She was lying more on her right side during evaluation and pulse ox was dropping into high 80s she was being repositioned by nurses. Plan is to PEG/TRACH patient tomorrow. Last family update was 4 days ago. We will call and discuss case today. Patient is afebrile, heart rate 84, respirations 30, blood pressure 141/55, 92% oxygen saturation on 100% Fi02, which was increased today up from 70 Fi02%. Labs today show WBC of 15.6, hgbl 10.7, sodium 138, potassium 3.9, chloride 100, CO2 37, glucose 117, calcium 8.2. Chest xray today shows pneumonia, ARDS. 10/11/2021 Patient is seen and evaluated in follow-up this morning continues to be closely monitored in the ICU and patient is continued on FiO2 of 90% and PEEP is 16 with multiple medical consultations following. Chest x-ray today shows new left- sided pneumothorax estimated 10-20% with overlying subcutaneous emphysema and pneumomediastinum redemonstrated with bilateral multifocal and confluent op acification's redemonstrated consistent with COVID-19 infection and/or arts and no significant change from one day previous. Patient is status post left chest tube insertion with pulmonary java technical architect. Cardiology following and patient is off lidocaine drip and maintaining sinus rhythm. Patient also continues on vitamin and zinc supplements along with oral dexamethasone and patient continues on IV Lasix 40 mg daily. Patient also continues off norepinephrine and is currently maintained on IV cefepime along with fluconazole. General surgery following as well and plan is for peg and trach placement in the am 10/12/2021 Patient is seen in the ICU this morning continues to be closely monitored by multiple medical consultations. Patient was scheduled for PEG and trach placement with general surgery Dr. Nelson today although canceled as patient became hypotensive requiring Levophed along with acute blood loss anemia and hemoglobin dropped to 6.5 this morning requiring 1 unit of PRBC. Patient continues with left chest tube with pneumothorax and chest x-ray today shows the jahaira is difficult to clearly identify on the present exam and the ET tube may be approximately 1 cm from the jahaira and there are bilateral chest tubes present with continued diffuse interstitial opacification is and more focal bibasilar opacification is with subcutaneous emphysema persists along the upper chest with slight improvement on the left. No appreciable pneumothorax noted. Patient having worsening right pleural effusion last night and received a right- sided chest tube with pulmonary java technical architect. FiO2 is 90% and PEEP of 16. Again overall prognosis remains extremely poor and guarded. 10/13/2021 Patient is seen in follow-up this morning in the ICU with multiple medical consultations following. Lengthy discussion was had with pulmonary java technical architect and family members and would like to continue with full CODE STATUS and plan is in place for PEG tube and tracheostomy placement tomorrow. Anticoagulant on hold and Dr. Nelson plans for surgery tomorrow. Patient continues on oral dexamethasone along with IV cefepime, vitamin and zinc supplements. Patient also continues on Cleviprex and Nimbex. Patient also continues on fentanyl and propofol and will continue. Chest x-ray today shows stable portable chest with bilateral chest tubes without sizable pneumothorax identified and continued subcutaneous air persists with persistent interstitial changes bilaterally with airspace disease in the bilateral lung bases that are unchanged. FiO2 is 60% and PEEP of 16. 10/14/2021 Patient is seen and evaluated in the ICU being closely monitored with multiple medical consultations following. at the bedside today and had detailed discussion with overall prognosis. Plan is to proceed with PEG tube and tracheostomy placement with surgery Dr. Nelson today and anticoagulant continues to be on hold for this procedure. Patient continues on mechanical ventilation with an FiO2 of 70% and PEEP of 16. Chest x-ray today shows improving infiltrate with bibasilar residual and bilateral chest tubes remain present with no pneumothorax evident on either side and again subcutaneous emphysema is noted. 10/15/2021 Patient is seen in the ICU being closely monitored. Patient is status post PEG and trach placement yesterday. Chest x-ray today shows bilateral patchy lung infiltrates greater at the right base with diffuse increased lung markings and bilateral chest tubes remain present and subcutaneous emphysema on the right is diminished. Patient continues with an FI02 of 60 and peep is 16. To resume tube feeds per surgery. Patient continues on norepinephrine and sedation. Patient is receiving IV lasix daily. 10/16/2021 Patient is currently in the MICU and remains on ventilator. Status post tracheostomy and PEG tube placement on 10/14/2021. Patient is sedated and paralyzed. Also on Cleviprex. Chest x-ray showed no acute cardiopulmonary disease with no interval changes. Laboratory data showed WBC 16.9 hemoglobin 8.9 and platelets 278 BUN 19 and creatinine 0.5 and calcium 8.1 patient is being continued on dexamethasone 6 mg daily, Lasix 40 mg IV daily and multivitamins and anticoagulation with Eliquis. Pulmonary and general surgery is on board. 10/17/2021 Patient is in the MICU. Remains on the current ventilator via tracheostomy. Status post tracheostomy and PEG tube placement on 10/14/2021. Sedated and paralyzed and also on fentanyl drip. Currently on assist control with tidal volume of 420, FiO2 80% and PEEP of 16. Respiratory of 30. Chest x-ray showed no interval change in acute cardiopulmonary disease Laboratory data showed WBC 15.8 hemoglobin 8.2 and platelets 271 Sodium 136 potassium 3.1 chloride 100 bicarb is 32 BUN 21 creatinine 0.48 and albumin 2.3 Patient is being continued on Lasix IV, dexamethasone and anticoagulation with Eliquis. 10/18/2021 Patient is seen in follow-up and continues in the ICU with multiple medical consultations following. Patient continues on mechanical vent with an FI02 of 70% and peep is 16. Chest xray shows overall stable exam with interstitial changes and bilateral patchy infiltrates with right greater than left and greater at the bases with bilateral chest tubes noted. no appreciable pneumothorax. Patient continues on propofol and fentanyl along with cleviprex and rocuronium. Eliquis has been resumed. Potassium is 3.3 and will be replaced per protocol. Patient also continues to receive IV lasix daily. 10/19/2021 Patient is seen this morning and continues to be in the ICU with multiple medical consultations following. Patient continues with bilateral chest tubes and remains on mechanical ventilation with an FiO2 of 65% and PEEP is 16. Chest x-ray today shows Bilateral multifocal and confluent opacification greatest in the lower lungs consistent with COVID-19 infection and/or ARDS all redemon strated with no significant change from one day earlier and continued bilateral chest tubes without pneumothorax redemonstrated. 10/20/2021 Patient continues to be in the ICU under close critical monitoring with multiple medical consultations following. Patient continues with bilateral chest tubes although per nursing staff may possibly discontinued today. Chest x-ray today shows stable portable chest with no change in scattered mixed interstitial and alveolar infiltrates. Patient remains on mechanical ventilation via tracheostomy with an FiO2 of 55% and PEEP is 15. Patient continues on Cleviprex along with rocuronium and sedation. 10/21/2021 Patient continues in the MICU being closely monitored. Chest tubes were removed today and chest xray stable with interstitial changes and basilar ground glass, that is similar to previous with slight improvement. Patient continues on mechanical vent with an FI02 of 70% and peep is 14. Patient remains sedated and per nursing staff working on weaning paralytics. Patient continued on rocuronium. Patient is tolerating tube feeds and also continues on IV lasix daily with generalized edema noted throughout. 10/22/2021 Patient is currently MICU. Patient was taken off paralytic and chest tubes yesterday. Continued on pressure support with PEEP of 13. 88 this morning patient again desaturated. Patient became hypotensive and patient was started on norepinephrine. Chest x-ray showed large pneumothorax on the right. Right chest tube was reinserted. Patient is on pressure control. Remains sedated and mechanically ventilated. Laboratory data showed WBC 13.7 hemoglobin 7.7 and platelets 314 Sodium 140 potassium 3.0 chloride 102 bicarb is 37 BUN 19 and creatinine 0.44 and calcium 8.1 Patient is being continued dexamethasone multivitamins and anticoagulation with Eliquis. Patient is also on IV Lasix. Potassium will be replaced. 10/23/2021 Patient is currently MICU. Patient is on mechanical ventilator via trach tube. Patient developed right-sided tension pneumothorax. Again patient had issues with pneumothorax around 10 PM yesterday. Chest tube has to be replaced. Patient is also requiring pressor support. Off pressors this morning. On pressure support. PEEP of 13 and FiO2 100%. Laboratory data showed WBC 13.7 hemoglobin 7.7 and platelets 314 Sodium 140 potassium 3.0 chloride 102 bicarb is 37 BUN 19 and creatinine 0.44 and calcium 8.1 cultures have been negative. Patient is being current on dexamethasone, Eliquis and also IV Lasix 40 mg daily. 10/24/2021 Patient is currently in the MICU. Currently on mechanical ventilator via tracheal tube. Continue propofol and fentanyl. Remains pressure support with PEEP of 13 FiO2 reduced to 70%. Chest x-ray showed bilateral multifocal and confluent opacities consistent with COVID-19 infection and ARDS are redemonstrated and stable. Right-sided chest tube with small apical pneumothorax estimated 10 to 15% improved from 1 day earlier. Pneumo mediastinum noted. Laboratory data showed WBC 14.2 hemoglobin 7.1 and platelets 317 Sodium 140 potassium 3.2 chloride 104 bicarb is 38 BUN 20 and creatinine 0.46 and calcium 7.8. Patient is being continued on dexamethasone, Eliquis and also on IV Lasix. Currently on multivitamins. 10/25/2021 Patient is seen this morning continues to be in the ICU with close monitoring. Patient continues on mechanical vent via tracheostomy and FiO2 of 65% with a PEEP of 13. Chest x-ray this morning shows right-sided chest tube in place with continued small to moderate right sided pneumothorax slightly smaller in the interval, apical component measuring 2.3 cm versus 2.8 cm previously along with interstitial opacities persist in pneumonitis versus mild pulmonary edema, status post right side thoravent place this morning with pulmonary java technical architect showing resolution of the apical and lateral components of the pneumothorax and 5 mm basilar components remain. Patient requiring more oxygen supplementation and FiO2 being increased to 75%. Hemoglobin found to be 6.3 and awaiting to receive a unit of PRBC. Patient also continues on Nimbex along with Cleviprex, oral dexamethasone, vitamin and zinc supplements along with oral eliquis, along with fentanyl and propofol for sedation. Review of systems: Unable to obtain as patient is mechanically intubated and sedated Labs: WBC is 9.1, hemoglobin is 6.3, platelets are 278, sodium is 139, potassium 3.4, BUN 22, creatinine 0.41, calcium 7.7. Active Medications Apixaban (Apixaban 5 Mg Tab) 5 mg PO BID [facility]; Protocol Last Admin: 10/25/21 08:38 Dose: 5 mg Documented by: Artificial Tears (Artificial Tears-Hypromellose Drops 15 Ml Btl) 2 drops BOTH EYES QID [facility] Last Admin: 10/25/21 12:12 Dose: 2 drops Documented by: Ascorbic Acid (Ascorbic Acid 500 Mg Tab) 500 mg PO BID [facility] Last Admin: 10/25/21 08:37 Dose: 500 mg Documented by: Chlorhexidine Gluconate (Chlorhexidine Gluconate 15 Ml Cup) 15 ml MUCOUS MEM BID [facility] Last Admin: 10/25/21 08:37 Dose: 15 ml Documented by: Dexamethasone (Dexamethasone 2 Mg Tab) 4 mg PO DAILY [facility] Last Admin: 10/25/21 08:37 Dose: 4 mg Documented by: Docusate Sodium (Docusate Oral Soln 100 Mg/10 Ml Cup) 100 mg PO DAILY PRN PRN Reason: Constipation Last Admin: 10/18/21 15:53 Dose: 100 mg Documented by: Ergocalciferol (Ergocalciferol 1,250 Mcg (50,000 Iu) Capsule) 1,250 mcg PO [facility] Last Admin: 10/24/21 09:11 Dose: Not Given Documented by: Furosemide (Furosemide 10 Mg/Ml 4 Ml Vial) 40 mg IV DAILY [facility] Last Admin: 10/25/21 08:37 Dose: 40 mg Documented by: Propofol 1,000 mg/ IV Solution 100 mls @ 0 mls/hr IV .Q0M [facility]; Protocol Last Admin: 10/25/21 10:40 Dose: 50 mcg/kg/min, 27.12 mls/hr Documented by: Sodium Chloride (Saline 0.9%) 1,000 mls @ 20 mls/hr IV .Q24H [facility] Last Admin: 10/24/21 23:38 Dose: 20 mls/hr Documented by: Fentanyl Citrate 2,500 mcg/ (Sodium Chloride) 250 mls @ 4.6 mls/hr IV .Q24H [facility]; Protocol Last Titration: 10/25/21 10:28 Dose: 3 mcg/kg/hr, 27.6 mls/hr Documented by: Clevidipine 25 mg/ IV Solution 50 mls @ 2 mls/hr IV .Q24H [facility]; Protocol Last Admin: 10/25/21 12:30 Dose: 18 mg/hr, 36 mls/hr Documented by: Lactated Ringer's (Lactated Ringers) 1,000 mls @ 20 mls/hr IV .Q24H [facility] Last Admin: 10/25/21 12:12 Dose: Not Given Documented by: Norepinephrine Bitartrate 8 mg (/ Sodium Chloride) 258 mls @ 9.143 mls/hr IV .Q24H [facility]; Protocol Last Titration: 10/25/21 03:13 Dose: 0 mcg/kg/min, 0 mls/hr Documented by: Rocuronium [place] 400 mg/ (Sodium Chloride) 140 mls @ 9.954 mls/hr IV .Q14H4M [facility]; Protocol Last Admin: 10/24/21 23:38 Dose: Not Given Documented by: Cisatracurium Besylate 200 mg/ (Sodium Chloride) 200 mls @ 5.424 mls/hr IV .Q24H [facility]; Protocol Last Titration: 10/25/21 12:13 Dose: 2 mcg/kg/min, 10.848 mls/hr Documented by: Insulin Aspart (Insulin Aspart (Novolog) 100 Unit/Ml Vial) 0 unit SQ Q6HR [facility]; Protocol Last Admin: 10/25/21 12:12 Dose: 2 unit Documented by: Miscellaneous Information (Pneumonia Protocol Utilized 1 Each [facility]) 1 each PO ONCE PRN PRN Reason: Per Protocol Miscellaneous Information (Potassium Replacement Protocol 1 Each [facility]) 1 each MISCELLANE DAILY PRN; Protocol PRN Reason: Per Protocol Miscellaneous Information (Potassium Replacement Protocol 1 Each [facility]) 1 each MISCELLANE DAILY PRN; Protocol PRN Reason: Per Protocol Naloxone HCl (Naloxone 0.4 Mg/Ml 1 Ml Vial) 0.2 mg IV Q2M PRN PRN Reason: Opioid Reversal Pantoprazole Sodium (Pantoprazole 40 Mg/10 Ml Vial) 40 mg IV DAILY [facility] Last Admin: 10/25/21 08:37 Dose: 40 mg Documented by: Zinc Sulfate (Zinc Sulfate 220 Mg Cap) 220 mg PO DAILY [facility] Last Admin: 10/25/21 08:37 Dose: 220 mg Documented by: Physical Exam: Gen: This is a 61-year-old female currently sedated and intubated. mechanical ventilation Fio2 increased today to 75% with a PEEP of 13 HEENT: Head is atraumatic, normocephalic. Pupils equal, round. Sclerae is anicteric. tracheostomy noted NECK: Supple. No JVD. No lymphadenopathy. No thyromegaly. tracheostomy noted LUNGS: Diminished breath sounds bilaterally with coarse rhonchi and crackles noted. No intercostal retractions. Right side chest tube and thoravent noted HEART: S1, S2 are muffled ABDOMEN: Soft. Bowel sounds are present. No masses. No tenderness. peg tube noted. EXTREMITIES: No pedal edema. No calf tenderness. generalized edema noted NEUROLOGICAL: Patient is currently intubated and sedated Assessment: Acute COVID-19 infection with acute COVID-19 bilateral interstitial pneumonia with hypoxic hypercarbic respiratory failure on mechanical vent status post trach and peg tube placement on 10/14/2021 Subcutaneous emphysema of the neck and chest, improving bilateral pneumothoraces with chest tube placement and is status post removal of chest tubes today 2. Status post reinsertion of chest tubes on 10/22/2021 due to a tension pneumothorax on the right, status post thoraVent placement as well on the right today 10/25/2021 Acute blood loss anemia secondary to bilateral chest tube placements, possible hypovolemic shock requiring pressor support, currently hypertensive and off pressors, continues on cleviprex Non-sustained ventricular tachycardia, currently sinus Acute left leg deep vein thrombosis Acute respiratory acidosis Primary hypercoagulable state and factor V deficiency Mild transaminitis, possibly secondary to COVID-19 History of degenerative joint disease History of fibromyalgia Elevated inflammatory markers of COVID-19 Obesity with a body mass index of 38.1 Full code Plan: Recommend to continue with current medications and follow along closely with multiple medical consultations. Prognosis remains extremely poor and guarded with multiple complex medical issues noted. Patient continues on mechanical ventilation via tracheostomy and FiO2 75% with PEEP of 13. Recommend to continue with current medications. Patient developed tension pneumothorax on the right and underwent chest tube placement although chest x-rays today continue to show pneumothorax and patient continues with chest tubes and received thoravent on the right as well showing some resolution in the pneumothorax done by pulmonary java technical architect. Patient continues on cleviprex along with propofol and fentanyl. Hemoglobin was 6.5 today and currently receiving a unit of PRBC. Recommend repeat labs and continued close monitoring. Again due to multiple complex medical issues overall prognosis is extremely poor and quite guarded. Objective - Vital Signs Vital signs: Vital Signs Temp 98.3 F 10/25/21 08:00 Pulse 76 10/25/21 08:30 Resp 26 H 10/25/21 08:30 BP 105/59 10/24/21 10:00 Pulse Ox 93 L 10/25/21 08:30 Intake & Output 10/24/21 10/25/21 10/25/21 18:59 06:59 18:59 Intake Total 8863.753 9643.803 183 Output Total 2715 317 30 Balance -9482.478 6911.803 153 Weight 90.4 kg Intake: IV 276 1276 23 0.9 NS 240 1240 20 pressure bag 36 36 3 Intake, IV Titration 787.369 554.803 Amount Clevidipine Butyrate 25 74.0 mg In Empty Bag 1 bag @ 1 MG/HR 2 mls/hr IV .Q24H [facility] Rx#:[id number] Norepinephrine 8 mg In 0 36.875 Sodium Chloride 0.9% 250 ml @ 0.05 MCG/KG/MIN 9. 143 mls/hr IV .Q24H [facility] Rx#:[id number] fentaNYL (PF) 2,500 mcg 421.974 236.670 In Sodium Chloride 0.9% 200 ml @ 0.5 MCG/KG/HR 4. 6 mls/hr IV .Q24H [facility] Rx# :[id number] propofoL 1,000 mg In 291.395 281.258 Empty Bag 1 bag @ Titrate IV .Q0M [facility] Rx#: [id number] Tube Feeding 110 120 10 Other 240 90 150 Output: Chest Tube Drainage 20 12 Chest Tube Right 20 12 Urine 2695 305 30 Other: Voiding Method Indwelling Catheter Indwelling Catheter Indwelling Catheter ABP, PAP, CO, CI - Last Documented Arterial Blood Pressure 180/62 - Labs CBC & Chem 7: 10/25/21 04:45 10/25/21 04:45 Labs: Abnormal Lab Results - Last 24 Hours (Table) 10/24/21 10/24/21 10/24/21 Range/Units 10:53 12:08 17:22 RBC (3.80-5.40) m/uL Hgb (11.4-16.0) gm/dL Hct (34.0-46.0) % MCHC (31.0-37.0) g/dL RDW (11.5-15.5) % ABG pCO2 (35-45) mmHg ABG HCO3 (21-25) mmol/L ABG Total CO2 (19-24) mmol/L ABG O2 Saturation (94-97) % Potassium 3.3 L (3.5-5.1) mmol/L Carbon Dioxide 37 H (22-30) mmol/L BUN 20 H (7-17) mg/dL Creatinine 0.46 L (0.52-1.04) mg/dL Glucose 119 H (74-99) mg/dL POC Glucose (mg/dL) 167 H 149 H (75-99) mg/dL Calcium 8.1 L (8.4-10.2) mg/dL 10/24/21 10/24/21 10/25/21 Range/Units 23:35 23:47 04:45 RBC 2.28 L (3.80-5.40) m/uL Hgb 6.3 L* (11.4-16.0) gm/dL Hct 21.6 L (34.0-46.0) % MCHC 29.4 L (31.0-37.0) g/dL RDW 17.0 H (11.5-15.5) % ABG pCO2 (35-45) mmHg ABG HCO3 (21-25) mmol/L ABG Total CO2 (19-24) mmol/L ABG O2 Saturation (94-97) % Potassium (3.5-5.1) mmol/L Carbon Dioxide (22-30) mmol/L BUN (7-17) mg/dL Creatinine (0.52-1.04) mg/dL Glucose (74-99) mg/dL POC Glucose (mg/dL) 115 H 122 H (75-99) mg/dL Calcium (8.4-10.2) mg/dL 10/25/21 10/25/21 Range/Units 04:45 04:57 RBC (3.80-5.40) m/uL Hgb (11.4-16.0) gm/dL Hct (34.0-46.0) % MCHC (31.0-37.0) g/dL RDW (11.5-15.5) % ABG pCO2 58 H (35-45) mmHg ABG HCO3 37 H (21-25) mmol/L ABG Total CO2 39 H (19-24) mmol/L ABG O2 Saturation 98.9 H (94-97) % Potassium 3.4 L (3.5-5.1) mmol/L Carbon Dioxide 35 H (22-30) mmol/L BUN 22 H (7-17) mg/dL Creatinine 0.41 L (0.52-1.04) mg/dL Glucose (74-99) mg/dL POC Glucose (mg/dL) (75-99) mg/dL Calcium 7.7 L (8.4-10.2) mg/dL
--- NOTE | 2021-10-25 13:27 | PCN ---
PROCEDURE NOTE OPERATIVE REPORT: Placement of the right sided chest tube/Thoravent/13 Stateless. PREOPERATIVE DIAGNOSIS: Right-sided pneumothorax, and failure to expand the right lung despite of a chest tube present already in the right pleural space. POSTOPERATIVE DIAGNOSIS: Right-sided pneumothorax, and failure to expand the right lung despite of a chest tube present already in the right pleural space. ANESTHESIA USED: 2 mL of 1% lidocaine. PROCEDURE DETAILS: The patient was placed in a supine position, the area of the right upper chest wall was prepared in a sterile fashion. Drapes were applied. The area at the level of the midclavicular line, and the third intercostal space was locally anesthetized with lidocaine. Then a small tiny incision was made. A Thoravent was introduced by placing the trocar in the Thoravent and it was advanced at the same site of the incision was made, until the pleural space was entered, then the catheter was advanced over the trocar, and the trocar was removed. The Thoravent was secured on the anterior chest wall, and connected to Pleur-Evac, no complications, followup chest x-ray showed adequate placement and almost near complete expansion of the right lung. Procedure was well tolerated, no complications. MMODL / IJN: [id number] /
--- NOTE | 2021-10-25 13:39 | P.PN ---
Subjective Progress Note Date: 10/25/21 Principal diagnosis: Acute hypoxic respiratory failure secondary to COVID-19 pneumonia 10/24/2021, the patient remains on a mechanical ventilator. This morning, she is sedated with a combination of propofol and fentanyl. Propofol is running at 45 mcg/kg per minute and the fentanyl is running at 1.5 mcg/kg/h. I have taken this patient off paralytics. Meanwhile, switch this patient a pressure control mode of mechanical ventilation at the rate of 26, pressure control of 22, FiO2 of 70% with a PEEP of 13. The chest x-ray from today showing a small right apical pneumothorax. Chest tube is in a good location. There are still persistent air leak and the chest tube. Tracheostomy tube is high in the trachea. Nevertheless, there is no air leaks. The patient continues to have diffuse bilateral pulmonary infiltrates more so in the right lower lobe. The blood gases from today shows a pH of 7.50 with a pCO2 of 47 and pO2 of 96 and this was on FiO2 of 70%. Otherwise, the patient remains hemodynamically stable. She remains on anticoagulation and the patient remains on Eliquis 5 mg by mouth twice a day.. The patient is also on Decadron as well as a 4 mg by mouth daily no other new complaints otherwise for now. The patient is receiving enteral feeding for nutritional support via PEG tube. She is currently on vital high protein at the rate of 10 mL an hour. The blood work from today shows a white cell count 14.2 with hemoglobin of 7.1 and a platelet count of 317. Sodium is at 140 with potassium level of 3.4 which is going to be replaced. BUN is at 20 with a creatinine of 0.4. Blood sugar is at 103. No other significant events overnight. No synovitis fluid overload. Overall fluid balance over the past 24 hours has been -1083 cc. Reevaluated today on 10/25/2021, patient remains in the ICU, intubated, mechanically ventilated. Patient is presently on pressure control mode of mechanical ventilation, pressure control of 18, TI of 0.9 FiO2 60% PEEP of 15. ABG showed a pO2 of 100 pCO2 of 58 pH of 7.41, however during my evaluation the patient was noted to desaturate and her chest x-ray was showing worsening right- sided pneumothorax, hence went ahead and placed a 13-Persian thoravent in the right upper chest area at the level of the midclavicular line and third intercostal space. Follow-up chest x-ray showed complete reexpansion of the right lung, To the old chest tube in place, and connected both to pleural vacs. Patient is on fentanyl at 2.5 mcg/kg/h, is also on propofol at 50 and considering the patient was noted to have increased work of breathing and she was desaturating I recommended we place her back on Nimbex. Patient is rece iving vital Hb at 10 mL per hour. She is not requiring any pressors. Her peak airway pressure is 36 plateau pressure is 34. Her pressure control was increased from 18-22, and a PEEP was cut down to 13. Instructed the nurses to titrate FiO2 down while the patient is on Nimbex. Patient is noted to be awake, opens eyes, but does not follow any instructions. Hemoglobin today is 6.3, patient will receive at least a unit of packed RBCs. WBC count is 9.1. Electrolytes and renal profile are normal except for low potassium of 3.4. Chest x-ray post chest tube placement showed interval resolution of the apical and lateral pneumothorax. Objective - Vital Signs Vital signs: Vital Signs Temp 98.7 F 10/25/21 12:00 Pulse 107 H 10/25/21 12:00 Resp 27 H 10/25/21 12:00 BP 136/55 10/25/21 11:56 Pulse Ox 88 L 10/25/21 12:00 Intake & Output 10/24/21 10/25/21 10/25/21 18:59 06:59 18:59 Intake Total 3216.877 9684.803 557.564 Output Total 2715 317 1480 Balance -2389.882 4978.803 -922.436 Weight 90.4 kg 90.4 kg Intake: IV 276 1276 112 0.9 NS 240 1240 100 pressure bag 36 36 12 Intake, IV Titration 787.369 554.803 215.564 Amount Cisatracurium 200 mg In 5.334 Sodium Chloride 0.9% 180 ml @ 1 MCG/KG/MIN 5.424 mls/hr IV .Q24H [facility] Rx#: [id number] Clevidipine Butyrate 25 74.0 70.833 mg In Empty Bag 1 bag @ 1 MG/HR 2 mls/hr IV .Q24H [facility] Rx#:[id number] Norepinephrine 8 mg In 0 36.875 Sodium Chloride 0.9% 250 ml @ 0.05 MCG/KG/MIN 9. 143 mls/hr IV .Q24H [facility] Rx#:[id number] fentaNYL (PF) 2,500 mcg 421.974 236.670 39.397 In Sodium Chloride 0.9% 200 ml @ 0.5 MCG/KG/HR 4. 6 mls/hr IV .Q24H [facility] Rx# :[id number] propofoL 1,000 mg In 291.395 281.258 100 Empty Bag 1 bag @ Titrate IV .Q0M [facility] Rx#: [id number] Tube Feeding 110 120 50 Blood Product 0 Rc As-1 Unit 0 [id number] Other 240 90 180 Output: Chest Tube Drainage 20 12 Chest Tube Right 20 12 Urine 2695 305 1480 Other: Voiding Method Indwelling Catheter Indwelling Catheter Indwelling Catheter ABP, PAP, CO, CI - Last Documented Arterial Blood Pressure 139/56 - Exam Physical Exam: Revealed a 61-year-old female in no distress. Intubated, sedated Nimbex was added after my evaluation. Head: Atraumatic, normocephalic PEG tube is intact. Tracheostomy is intact. HEENT:[Neck is supple.] [No neck masses.] [No thyromegaly.] [No JVD.] Tracheostomy seems to be intact. Chest: [Symmetrical chest expansion crackles and rhonchi at the bases. Right- sided chest tube and the right sided thoravent noted. Cardiac Exam: [Distant S1 and S2, no S3 gallop. No murmur. Abdomen: [Soft, nontender, no megaly, no rebound, no guarding, normal bowel sounds.] Extremities: [No clubbing, trace of bipedal edema, no cyanosis.] Good pulses bilaterally. Neurological Exam: Opens eyes but does not follow any instructions. No purposeful movement. Psychiatric: Cannot assess patient is as noted above Skin: No rashes. - Labs CBC & Chem 7: 10/25/21 04:45 10/25/21 04:45 Labs: Abnormal Lab Results - Last 24 Hours (Table) 10/12/21 10/24/21 10/24/21 Range/Units 02:23 17:22 23:35 RBC (3.80-5.40) m/uL Hgb (11.4-16.0) gm/dL Hct (34.0-46.0) % MCHC (31.0-37.0) g/dL RDW (11.5-15.5) % ABG pCO2 (35-45) mmHg ABG HCO3 (21-25) mmol/L ABG Total CO2 (19-24) mmol/L ABG O2 Saturation (94-97) % Potassium (3.5-5.1) mmol/L Carbon Dioxide (22-30) mmol/L BUN (7-17) mg/dL Creatinine (0.52-1.04) mg/dL POC Glucose (mg/dL) 149 H 115 H (75-99) mg/dL Calcium (8.4-10.2) mg/dL Crossmatch See Detail 10/24/21 10/25/21 10/25/21 Range/Units 23:47 04:45 04:45 RBC 2.28 L (3.80-5.40) m/uL Hgb 6.3 L* (11.4-16.0) gm/dL Hct 21.6 L (34.0-46.0) % MCHC 29.4 L (31.0-37.0) g/dL RDW 17.0 H (11.5-15.5) % ABG pCO2 (35-45) mmHg ABG HCO3 (21-25) mmol/L ABG Total CO2 (19-24) mmol/L ABG O2 Saturation (94-97) % Potassium 3.4 L (3.5-5.1) mmol/L Carbon Dioxide 35 H (22-30) mmol/L BUN 22 H (7-17) mg/dL Creatinine 0.41 L (0.52-1.04) mg/dL POC Glucose (mg/dL) 122 H (75-99) mg/dL Calcium 7.7 L (8.4-10.2) mg/dL Crossmatch 10/25/21 10/25/21 10/25/21 Range/Units 04:57 06:15 11:54 RBC (3.80-5.40) m/uL Hgb (11.4-16.0) gm/dL Hct (34.0-46.0) % MCHC (31.0-37.0) g/dL RDW (11.5-15.5) % ABG pCO2 58 H (35-45) mmHg ABG HCO3 37 H (21-25) mmol/L ABG Total CO2 39 H (19-24) mmol/L ABG O2 Saturation 98.9 H (94-97) % Potassium (3.5-5.1) mmol/L Carbon Dioxide (22-30) mmol/L BUN (7-17) mg/dL Creatinine (0.52-1.04) mg/dL POC Glucose (mg/dL) 202 H (75-99) mg/dL Calcium (8.4-10.2) mg/dL Crossmatch See Detail Assessment and Plan Assessment: Impression: Acute hypoxic respiratory failure secondary to COVID-19 pneumonia and complicated with ARDS. Patient was intubated on 09/25/2021. Status post tracheostomy and PEG tube placement. 10/14/2021. Acute deep vein thrombosis, on Eliquis. Bilateral pneumothoraces requiring bilateral chest tube placement. However since then the left-sided chest tube was removed, right-sided chest tube had to be placed again by Dr. Harris, and today I placed a right sided thoravent on 10/25/21 Acute COVID-19 pneumonia Subcutaneous emphysema, this is a complication of COVID-19 infection/pneumonia mostly resolved. Prior history of DVT History of fibromyalgia Degenerative joint disease Mildly elevated liver enzymes secondary to cardona virus infection. Nonsustained ventricular tachycardia, resolved Recommendation: Continue ventilatory support. Continue propofol, fentanyl, and Nimbex. Tracheostomy care Continue Eliquis at 5 mg twice a day. Continue ventilatory support. He should is on pressure [facility] of [facility] ventilation with a pressure control of 22, PEEP of 13, inspiratory time of 0.9, FiO2 60%. Continue to titrate oxygen and FiO2 as tolerated. Continue nutritional support/enteral feeding Continue GI and DVT prophylaxis, patient is on Protonix Continue COVID-19 cocktail. Continue Decadron and dose is now 4 mg by mouth daily. Patient is critically ill. Continue to monitor daily x-rays of the chest. Critical care time is over 30 minutes. Not including the time spent on procedures/chest tube placement. Time with Patient: Greater than 30
[2021-10-25 16:34] LABS: Anisocytosis Slight; Basophils # (A) 0.1 k/uL (0-0.2); Basophils % (A) 0 %; Eosinophils % (A) 0 %; HCT 34.5 % (34.0-46.0); Hypochromasia Marked; Lymphocytes # (A) 0.7 k/uL (1.0-4.8); Lymphocytes % (A) 3 %; MCH 29.3 pg (25.0-35.0); MCHC 31.1 g/dL (31.0-37.0); MCV 94.2 fL (80.0-100.0); Mean Platelet Volume 8.1; Monocytes # (A) 1.1 k/uL (0-1.0); Monocytes % (A) 6 %; Neutrophils # (A) 17.7 k/uL (1.3-7.7); Neutrophils % (A) 90 %; Platelet Count 391 k/uL (150-450); Poikilocytosis Moderate; RBC 3.66 m/uL (3.80-5.40); RDW 16.5 % (11.5-15.5); WBC 19.8 k/uL (3.8-10.6)
[2021-10-25 16:36] LABS: HGB 10.7 gm/dL (11.4-16.0)
[2021-10-25 17:33] LABS: Glucose,Whole Blood 167 mg/dL (75-99)
[2021-10-25] MEDS: ROCURONIUM 400 MG in SODIUM CHLORIDE 0.9% 100 ML IV SCH (19:37)
[2021-10-25 23:56] LABS: Glucose,Whole Blood 108 mg/dL (75-99)
[2021-10-26] MEDS: INSULIN ASPART (NovoLOG) 100 UNIT/ML VIAL SQ SCH ×4 (00:34→18:13)
[2021-10-26] MEDS: SODIUM CHLORIDE 0.9% 1,000 ML IV SCH (00:41)
[2021-10-26] MEDS: CLEVIDIPINE BUTYRATE 25 MG in EMPTY BAG 1 BAG IV SCH ×5 (00:47→19:46)
[2021-10-26] MEDS: NOREPINEPHRINE 8 MG in SODIUM CHLORIDE 0.9% 250 ML IV SCH ×2 (02:05→09:15)
[2021-10-26] MEDS: CISATRACURIUM 200 MG in SODIUM CHLORIDE 0.9% 180 ML IV SCH ×2 (03:32→12:50)
[2021-10-26 04:12] LABS: Anisocytosis Slight; HCT 27.7 % (34.0-46.0); Hypochromasia Marked; MCHC 31.5 g/dL (31.0-37.0); MCV 92.3 fL (80.0-100.0); Mean Platelet Volume 8.1; Platelet Count 321 k/uL (150-450); Poikilocytosis Marked; RDW 16.5 % (11.5-15.5); WBC 13.1 k/uL (3.8-10.6)
[2021-10-26 04:31] LABS: HGB 8.7 gm/dL (11.4-16.0)
[2021-10-26 05:02] LABS: African American GFR (CKD) >90 (>60 ml/min/1.73 sqM); Anion Gap 0 mmol/L; Blood Urea Nitrogen 23 mg/dL (7-17); Calcium 8.2 mg/dL (8.4-10.2); Carbon Dioxide 35 mmol/L (22-30); Chloride 101 mmol/L (98-107); Glucose 86 mg/dL (74-99); Non-African American GFR(CKD) >90 (>60 ml/min/1.73 sqM); Potassium 3.5 mmol/L (3.5-5.1); Sodium 136 mmol/L (137-145)
[2021-10-26 05:29] LABS: ABG Base Excess 12.1 mmol/L; ABG HCO3 36 mmol/L (21-25); ABG PCO2 53 mmHg (35-45); ABG PH 7.44 (7.35-7.45); ABG PO2 182 mmHg (83-108); ABG TCO2 38 mmol/L (19-24)
[2021-10-26 05:51] LABS: Allen Test Performed? no
[2021-10-26] MEDS: POTASSIUM BICARBONATE/CIT AC 20 MEQ TABLET.EFF NG-TUBE SCH ×4 (06:07→14:54)
[2021-10-26 06:17] LABS: Glucose,Whole Blood 92 mg/dL (75-99)
[2021-10-26] MEDS: fentaNYL (PF) 2,500 MCG in SODIUM CHLORIDE 0.9% 200 ML IV SCH ×2 (07:19→17:31)
--- NOTE | 2021-10-26 08:13 | XR ---
EXAMINATION TYPE: XR chest 1V portable DATE OF EXAM: 10/26/2021 COMPARISON: Chest x-ray 10/25/2021 HISTORY: Chest tube TECHNIQUE: Single frontal view of the chest is obtained. FINDINGS: Right-sided thoracic vent, chest tube are both present and overlying appropriate positions . Minimal right-sided apical pneumothorax is present. Tracheostomy tube is overlying the tracheal air column. There is right-sided PICC line, distal tip is overlying the right atrium. Bilateral intersti tial, groundglass opacities persist. No evident pleural effusion. Cardiomediastinal silhouette is sta ble. There are overlying artifacts. Lung volumes are low. IMPRESSION: Correlate for pneumonia.
[2021-10-26] MEDS: ZINC SULFATE 220 MG CAP PO SCH (08:40)
[2021-10-26] MEDS: APIXABAN 5 MG TAB PO SCH ×2 (08:40→21:29)
[2021-10-26] MEDS: dexAMETHasone 2 MG TAB PO SCH (08:40)
[2021-10-26] MEDS: ASCORBIC ACID 500 MG TAB PO SCH ×2 (08:40→21:29)
[2021-10-26] MEDS: FUROSEMIDE 10 MG/ML 4 ML VIAL IV SCH (08:41)
[2021-10-26] MEDS: PANTOPRAZOLE 40 MG/10 ML VIAL IV SCH (08:41)
[2021-10-26] MEDS: CHLORHEXIDINE GLUCONATE 15 ML CUP MUCOUS MEM SCH ×2 (08:42→21:30)
[2021-10-26] MEDS: ARTIFICIAL TEARS-HYPROMELLOSE DROPS 15 ML BTL BOTH EYES SCH ×4 (08:42→21:31)
[2021-10-26] MEDS: ROCURONIUM 400 MG in SODIUM CHLORIDE 0.9% 100 ML IV SCH (10:22)
[2021-10-26] MEDS: QUEtiapine 25 MG TAB PO SCH ×2 (10:23→21:30)
--- NOTE | 2021-10-26 11:48 | P.PN ---
Subjective Progress Note Date: 10/26/21 Principal diagnosis: Acute hypoxic respiratory failure secondary to COVID-19 pneumonia 10/24/2021, the patient remains on a mechanical ventilator. This morning, she is sedated with a combination of propofol and fentanyl. Propofol is running at 45 mcg/kg per minute and the fentanyl is running at 1.5 mcg/kg/h. I have taken this patient off paralytics. Meanwhile, switch this patient a pressure control mode of mechanical ventilation at the rate of 26, pressure control of 22, FiO2 of 70% with a PEEP of 13. The chest x-ray from today showing a small right apical pneumothorax. Chest tube is in a good location. There are still persistent air leak and the chest tube. Tracheostomy tube is high in the trachea. Nevertheless, there is no air leaks. The patient continues to have diffuse bilateral pulmonary infiltrates more so in the right lower lobe. The blood gases from today shows a pH of 7.50 with a pCO2 of 47 and pO2 of 96 and this was on FiO2 of 70%. Otherwise, the patient remains hemodynamically stable. She remains on anticoagulation and the patient remains on Eliquis 5 mg by mouth twice a day.. The patient is also on Decadron as well as a 4 mg by mouth daily no other new complaints otherwise for now. The patient is receiving enteral feeding for nutritional support via PEG tube. She is currently on vital high protein at the rate of 10 mL an hour. The blood work from today shows a white cell count 14.2 with hemoglobin of 7.1 and a platelet count of 317. Sodium is at 140 with potassium level of 3.4 which is going to be replaced. BUN is at 20 with a creatinine of 0.4. Blood sugar is at 103. No other significant events overnight. No synovitis fluid overload. Overall fluid balance over the past 24 hours has been -1083 cc. Reevaluated today on 10/25/2021, patient remains in the ICU, intubated, mechanically ventilated. Patient is presently on pressure control mode of mechanical ventilation, pressure control of 18, TI of 0.9 FiO2 60% PEEP of 15. ABG showed a pO2 of 100 pCO2 of 58 pH of 7.41, however during my evaluation the patient was noted to desaturate and her chest x-ray was showing worsening right- sided pneumothorax, hence went ahead and placed a 13-Swedish thoravent in the right upper chest area at the level of the midclavicular line and third intercostal space. Follow-up chest x-ray showed complete reexpansion of the right lung, To the old chest tube in place, and connected both to pleural vacs. Patient is on fentanyl at 2.5 mcg/kg/h, is also on propofol at 50 and considering the patient was noted to have increased work of breathing and she was desaturating I recommended we place her back on Nimbex. Patient is rece iving vital Hb at 10 mL per hour. She is not requiring any pressors. Her peak airway pressure is 36 plateau pressure is 34. Her pressure control was increased from 18-22, and a PEEP was cut down to 13. Instructed the nurses to titrate FiO2 down while the patient is on Nimbex. Patient is noted to be awake, opens eyes, but does not follow any instructions. Hemoglobin today is 6.3, patient will receive at least a unit of packed RBCs. WBC count is 9.1. Electrolytes and renal profile are normal except for low potassium of 3.4. Chest x-ray post chest tube placement showed interval resolution of the apical and lateral pneumothorax. Reevaluated today on 10/26/2021, patient remains in the ICU, remains intubated mechanically ventilated, sedated and paralyzed. She is on pressure control mode of mechanical ventilation with a pressure control of 22 inspiratory time of 0.10 seconds. FiO2 60% PEEP of 13. ABG on 75% earlier showed a pO2 of 182 pCO2 of 53 pH of 7.44. Patient remains on multiple drips including Nimbex at 1.5 pg/kg/m, propofol at 50 mcg/kg/m, fentanyl 2 mcg/kg/h. IV fluid at 20 mL per hour. Peak airway pressure is 36 plateau pressure is 25. Patient remains on vital hpf at 10 mL per hour. Today I cut down the FiO2 to 50%. Chest x-ray showed excellent expansion of the right lung, right-sided chest tube and right sided thoravent are in the proper position, no evidence of air leak and the pleural VAC. And the right lung seems to be almost completely reexpanded. Very small tiny apical pneumothorax is noted. Today I'm planning to hold the Nimbex and hopefully maintain the patient on propofol and sentinel if possible. And I have no plans to remove any of the chest tubes at present. Chest x-ray continues show bilateral infiltrates consistent with COVID-19 pneumonia, nonetheless overall the chest x-ray is showing improvement. WBC count is 13.1 hemoglobin 8.7. A left was are normal renal profile is normal bicarb is 35 Objective - Vital Signs Vital signs: Vital Signs Temp 98.1 F 10/26/21 08:00 Pulse 75 10/26/21 11:00 Resp 27 H 10/26/21 11:00 BP 129/56 10/25/21 13:58 Pulse Ox 87 L 10/26/21 11:00 Intake & Output 10/25/21 10/26/21 10/26/21 18:59 06:59 18:59 Intake Total 0692.720 6618.465 390.837 Output Total 1930 415 805 Balance -235.211 816.465 -414.163 Weight 90.4 kg 92 kg Intake: IV 273 253 115 0.9 NS 240 220 100 pressure bag 33 33 15 Intake, IV Titration 781.789 778.465 195.837 Amount Cisatracurium 200 mg In 5.334 193.637 26.532 Sodium Chloride 0.9% 180 ml @ 1 MCG/KG/MIN 5.424 mls/hr IV .Q24H [facility] Rx#: [id number] Clevidipine Butyrate 25 213.233 134.800 0 mg In Empty Bag 1 bag @ 1 MG/HR 2 mls/hr IV .Q24H [facility]RAHAM Rx#:[id number] Norepinephrine 8 mg In 17.312 0.305 Sodium Chloride 0.9% 250 ml @ 0.05 MCG/KG/MIN 9. 143 mls/hr IV .Q24H [facility] Rx#:[id number] fentaNYL (PF) 2,500 mcg 263.330 250.00 69 In Sodium Chloride 0.9% 200 ml @ 0.5 MCG/KG/HR 4. 6 mls/hr IV .Q24H [facility] Rx# :[id number] propofoL 1,000 mg In 299.892 182.716 100 Empty Bag 1 bag @ Titrate IV .Q0M [facility] Rx#: [id number] Tube Feeding 120 110 50 Blood Product 310 Rc As-1 Unit 310 [id number] Other 210 90 30 Output: Chest Tube Drainage 15 Chest Tube Right 15 Urine 1930 415 790 Other: Voiding Method Indwelling Catheter Indwelling Catheter Indwelling Catheter ABP, PAP, CO, CI - Last Documented Arterial Blood Pressure 182/55 - Exam Physical Exam: Revealed a 61-year-old female in no distress. Intubated, sedated and paralyzed with Nimbex Head: Atraumatic, normocephalic PEG tube is intact. Tracheostomy is intact. HEENT:[Neck is supple.] [No neck masses.] [No thyromegaly.] [No JVD.] Tracheostomy seems to be intact. Chest: [Symmetrical chest expansion crackles and rhonchi at the bases. Right- sided chest tube and the right sided thoravent noted. Seems to be in proper position. Cardiac Exam: [Distant S1 and S2, no S3 gallop. No murmur. Abdomen: [Soft, nontender, no megaly, no rebound, no guarding, normal bowel sounds.] Extremities: [No clubbing, trace of bipedal edema, no cyanosis.] Good pulses bilaterally. Neurological Exam: Opens eyes but does not follow any instructions. No purp oseful movement. Psychiatric: Cannot assess patient is as noted above Skin: No rashes. - Labs CBC & Chem 7: 10/26/21 04:00 10/26/21 04:00 Labs: Abnormal Lab Results - Last 24 Hours (Table) 10/12/21 10/25/21 10/25/21 Range/Units 02:23 06:15 11:54 WBC (3.8-10.6) k/uL RBC (3.80-5.40) m/uL Hgb (11.4-16.0) gm/dL Hct (34.0-46.0) % RDW (11.5-15.5) % Neutrophils # (1.3-7.7) k/uL Lymphocytes # (1.0-4.8) k/uL Monocytes # (0-1.0) k/uL ABG pCO2 (35-45) mmHg ABG pO2 (83-108) mmHg ABG HCO3 (21-25) mmol/L ABG Total CO2 (19-24) mmol/L ABG O2 Saturation (94-97) % Sodium (137-145) mmol/L Carbon Dioxide (22-30) mmol/L BUN (7-17) mg/dL Creatinine (0.52-1.04) mg/dL POC Glucose (mg/dL) 202 H (75-99) mg/dL Calcium (8.4-10.2) mg/dL Crossmatch See Detail See Detail 10/25/21 10/25/21 10/25/21 Range/Units 16:17 17:31 23:55 WBC 19.8 H (3.8-10.6) k/uL RBC 3.66 L (3.80-5.40) m/uL Hgb 10.7 L D (11.4-16.0) gm/dL Hct (34.0-46.0) % RDW 16.5 H (11.5-15.5) % Neutrophils # 17.7 H (1.3-7.7) k/uL Lymphocytes # 0.7 L (1.0-4.8) k/uL Monocytes # 1.1 H (0-1.0) k/uL ABG pCO2 (35-45) mmHg ABG pO2 (83-108) mmHg ABG HCO3 (21-25) mmol/L ABG Total CO2 (19-24) mmol/L ABG O2 Saturation (94-97) % Sodium (137-145) mmol/L Carbon Dioxide (22-30) mmol/L BUN (7-17) mg/dL Creatinine (0.52-1.04) mg/dL POC Glucose (mg/dL) 167 H 108 H (75-99) mg/dL Calcium (8.4-10.2) mg/dL Crossmatch 10/26/21 10/26/21 10/26/21 Range/Units 04:00 04:00 05:25 WBC 13.1 H (3.8-10.6) k/uL RBC 3.00 L (3.80-5.40) m/uL Hgb 8.7 L D (11.4-16.0) gm/dL Hct 27.7 L (34.0-46.0) % RDW 16.5 H (11.5-15.5) % Neutrophils # (1.3-7.7) k/uL Lymphocytes # (1.0-4.8) k/uL Monocytes # (0-1.0) k/uL ABG pCO2 53 H (35-45) mmHg ABG pO2 182 H (83-108) mmHg ABG HCO3 36 H (21-25) mmol/L ABG Total CO2 38 H (19-24) mmol/L ABG O2 Saturation 100.0 H (94-97) % Sodium 136 L (137-145) mmol/L Carbon Dioxide 35 H (22-30) mmol/L BUN 23 H (7-17) mg/dL Creatinine 0.35 L (0.52-1.04) mg/dL POC Glucose (mg/dL) (75-99) mg/dL Calcium 8.2 L (8.4-10.2) mg/dL Crossmatch Assessment and Plan Assessment: Impression: Acute hypoxic respiratory failure secondary to COVID-19 pneumonia and complicated with ARDS. Patient was intubated on 09/25/2021. Status post tracheostomy and PEG tube placement. 10/14/2021. Acute deep vein thrombosis, on Eliquis. Bilateral pneumothoraces requiring bilateral chest tube placement. However since then the left-sided chest tube was removed, right-sided chest tube had to be placed again by Dr. Harris, and today I placed a right sided thoravent on 10/25/21 Acute COVID-19 pneumonia Subcutaneous emphysema, this is a complication of COVID-19 infection/pneumonia mostly resolved. Prior history of DVT History of fibromyalgia Degenerative joint disease Mildly elevated liver enzymes secondary to cardona virus infection. Nonsustained ventricular tachycardia, resolved Recommendation: Hold Nimbex a day and assess if the patient couldn't tolerate being on fentanyl and propofol only Continue ventilatory support. Continue propofol, fentanyl, hold Nimbex today. Tracheostomy care Continue Eliquis at 5 mg twice a day. Continue ventilatory support. He should is on pressure control mode of mechanical ventilation with a pressure control of 22, PEEP of 13, inspiratory time of 0.9, FiO2 50% and this will be adjusted accordingly to maintain O2 saturation above 90%. Continue to titrate oxygen and FiO2 as tolerated. Continue nutritional support/enteral feeding Continue GI and DVT prophylaxis, patient is on Protonix Continue COVID-19 cocktail. Continue Decadron and dose is now 4 mg by mouth daily. Patient is critically ill. Critical care time is over 30 minutes. Time with Patient: Greater than 30
[2021-10-26 11:50] LABS: Glucose,Whole Blood 112 mg/dL (75-99)
[2021-10-26] MEDS ORDERED: Potassium Replacement Protocol 1 EACH MISC MISCELLANE PRN (12:11)
[2021-10-26] MEDS: LACTATED RINGERS 1,000 ML IV SCH (12:50)
--- NOTE | 2021-10-26 14:20 | P.PN ---
Subjective Progress Note Date: 10/26/21 This is a 61-year-old female who was recently admitted with acute COVID-19 pneumonia with acute COVID-19 bilateral interstitial pneumonia and also with transaminitis and being closely monitored. Patient remains in the ICU and currently intubated and sedated with an FiO2 of 70% and PEEP is 18. 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 Patient did have a venous Doppler study done recently which showed left leg DVT and patient is maintained on Eliquis will continue. Patient also continues on empiric antibiotics and awaiting for sputum culture finalized. Patient was started on IV cefepime and will continue. Patient is also continued on oral dexamethasone along with vitamin and zinc supplements and will continue. Patient with some mild volume overload and given a dose of IV Lasix push today. 09/29/2021 Patient is seen and evaluated this morning continues to be closely monitored in the ICU and continues to be on mechanical ventilation and sedated. FiO2 was increased at 80% with a PEEP of 18 and oxygen saturations between 87-91%. Patient developing subcutaneous emphysema in the neck and chest wall area and chest x-ray today shows bilateral multifocal and confluent opacification is redemonstrated consistent with COVID-19 infection with a new small left apical pneumothorax estimated under 5% with new pneumomediastinum and recurrent overlying subcutaneous emphysema noted. Patient is white blood count mildly elevated at 16.1 and is continued on oral dexamethasone along with oral eliquis for anticoagulation. Patient continues to be on IV cefepime and blood and sputum cultures are negative thus far. 09/30/2021 Patient is seen today continues to be closely monitored in the ICU with multiple medical consultations following. Patient continues to be mechanically intubated and sedated with continued subcutaneous emphysema noted. Chest xray shows a trace left apical pneumothorax that is minimally smaller 7mm versus 1cm previously, extensive bilateral subcutaneous emphysema persists and diffuse interstitial changes and bilateral patchy opacities persist with slight improvement in aeration in the lower lungs. Per nursing staff corbin was clogged with copious amounts of white discharge and will add diflucan and corbin catheter has been changed and draining adequately. Patient continues on IV cefepime. Patient tolerating tube feeds and will continue. 10/01/2021 Patient is seen and evaluated in follow up this morning and continues to be closely monitored. Multiple medical consultations following and patient c ontinues to be on mechanical vent and sedated. Patient continues on IV Cefepime and diflucan. Patient chest xray today shows stable extensive subcutaneous emphysema, no pneumothorax, and patchy bilateral lung infiltrates remain present. INflammatory markers trending down. 10/04/2021 Patient is seen in follow-up continues to be closely monitored in the ICU. Patient remains on mechanical vent with an FI02 of 65% and peep is 18. Weaning trials being attempted with pulmonary stove mechanic following closely. Patient continues with extensive subq emphysema noted on exam. 10/05/2021 Patient Is seen and evaluated this morning with continued attempts at weaning and continues on mechanical vent and intubated with pulmonary stove mechanic following closely. Patient remains on Eliquis which will be held as surgery Dr. Nelson was consulted for possible PEG and trach tube placement for unsuccessful attempts at weaning from ventilation and prolonged hospitalization on mechanical vent. Chest x-ray today shows recurrent tiny left apical pneumothorax estimated under 5% with worsening overlying subcutaneous emphysema and again pneumomediastinum redemonstrated with multifocal confluent opacification's redemonstrated consistent with COVID-19 infection and/or arts are redemonstrated with no significant change from one day previously. Patient continues on FiO2 of 65% and PEEP was weaned down to 14 today. IV cefepime discontinued. 10/06/2021 Patient is seen in follow-up this morning per nursing staff patient had multiple runs of ectopy an irregular heart rate and rhythms with PVCs and cardiology consulted. Patient was placed on lidocaine drip and was originally on eliquis is currently on hold for possible PEG and trach placement with general surgery following. Patient had difficulty maintaining oxygen saturations and FiO2 was increased to 100% and PEEP continues at 14. Multiple medical consultations following and patient continues on oral steroids along with vitamin and zinc supplements along with fluconazole. Patient being started on IV Lasix daily and recommend close monitoring of electrolytes and kidney functions. 10/07/2021 Patient is seen in follow-up this morning continues to be monitored closely in the ICU with multiple medical consultations following. Patient is currently on mechanical vent with an FiO2 of 80% and PEEP is 16. General surgery also following for possible PEG and trach placement and will need to discuss with surgery about when this will occur. Patient remains on fluconazole. She also continues on vitamin and zinc supplements along with oral dexamethasone, clevidipine, Nimbex, IV Lasix, fentanyl and propofol and is off norepinephrine. Chest x-ray shows stable bilateral lung infiltrates. 10/08/2021 Patient is seen this morning continues to be on mechanical vent with an FiO2 of 85% and PEEP of 16. Patient continues with extensive subcutaneous emphysema and plans are for possible PEG and trach placement although on hold until possibly next week once more stable. Patient continues on Cleviprex along with fentanyl and propofol and is receiving IV Lasix daily. Patient also continues on lidocaine drip which is currently on hold and cardiology is following closely. Anticoagulant was resumed for now again until more stable to undergo PEG and trach placement. Chest x-ray today shows persistent bilateral multifocal and confluent increased opacification is with persistent overlying subcutaneous emphysema noted in pneumomediastinum is again redemonstrated. 10/09/2021 Patient evaluated today in ICU mechanical ventilation with FiO2 of 80%. Chest x-ray this morning shows similar multifocal airspace opacities and stable support lines and tubes. Similar subcutaneous emphysema scattered throughout the visualized thorax. PEG and trach plan for next week once more stable. Current meds include Cleviprex, Nimbex, fentanyl, propofol. She is receiving IV fluconazole, as well as IV Lasix. Levophed and Lidocaine gtt;s are on hold. Positive bowel sounds. Current vitals afebrile, heart rate 71, blood pressure 135/60 and oxygen saturation is 93%. Respirations 30. Labs today, white count 17, hemoglobin 11.6, sodium 139, potassium 3.8, BUN 34, creatinine 0.91, CO2 33, calcium 8.7, ALT 54, albumin 2.8 with blood sugars in the 100s. 10/10/2021 Patient evaluated today in the ICU on the mechanical VENT with fio2 of 100%. Positive bowel movement today, Stage 2 pressure ulcer on coccyx per RN, optifoam ordered. Per RN they were unable to patient as she was desaturating. They're unable to wean Fi02 currently as she does desaturate with any time of movement. She was lying more on her right side during evaluation and pulse ox was dropping into high 80s she was being repositioned by nurses. Plan is to PEG/TRACH patient tomorrow. Last family update was 4 days ago. We will call and discuss case today. Patient is afebrile, heart rate 84, respirations 30, blood pressure 141/55, 92% oxygen saturation on 100% Fi02, which was increased today up from 70 Fi02%. Labs today show WBC of 15.6, hgbl 10.7, sodium 138, potassium 3.9, chloride 100, CO2 37, glucose 117, calcium 8.2. Chest xray today shows pneumonia, ARDS. 10/11/2021 Patient is seen and evaluated in follow-up this morning continues to be closely monitored in the ICU and patient is continued on FiO2 of 90% and PEEP is 16 with multiple medical consultations following. Chest x-ray today shows new left- sided pneumothorax estimated 10-20% with overlying subcutaneous emphysema and pneumomediastinum redemonstrated with bilateral multifocal and confluent op acification's redemonstrated consistent with COVID-19 infection and/or arts and no significant change from one day previous. Patient is status post left chest tube insertion with pulmonary stove mechanic. Cardiology following and patient is off lidocaine drip and maintaining sinus rhythm. Patient also continues on vitamin and zinc supplements along with oral dexamethasone and patient continues on IV Lasix 40 mg daily. Patient also continues off norepinephrine and is currently maintained on IV cefepime along with fluconazole. General surgery following as well and plan is for peg and trach placement in the am 10/12/2021 Patient is seen in the ICU this morning continues to be closely monitored by multiple medical consultations. Patient was scheduled for PEG and trach placement with general surgery Dr. Nelson today although canceled as patient became hypotensive requiring Levophed along with acute blood loss anemia and hemoglobin dropped to 6.5 this morning requiring 1 unit of PRBC. Patient continues with left chest tube with pneumothorax and chest x-ray today shows the jahaira is difficult to clearly identify on the present exam and the ET tube may be approximately 1 cm from the jahaira and there are bilateral chest tubes present with continued diffuse interstitial opacification is and more focal bibasilar opacification is with subcutaneous emphysema persists along the upper chest with slight improvement on the left. No appreciable pneumothorax noted. Patient having worsening right pleural effusion last night and received a right- sided chest tube with pulmonary stove mechanic. FiO2 is 90% and PEEP of 16. Again overall prognosis remains extremely poor and guarded. 10/13/2021 Patient is seen in follow-up this morning in the ICU with multiple medical consultations following. Lengthy discussion was had with pulmonary stove mechanic and family members and would like to continue with full CODE STATUS and plan is in place for PEG tube and tracheostomy placement tomorrow. Anticoagulant on hold and Dr. Nelson plans for surgery tomorrow. Patient continues on oral dexamethasone along with IV cefepime, vitamin and zinc supplements. Patient also continues on Cleviprex and Nimbex. Patient also continues on fentanyl and propofol and will continue. Chest x-ray today shows stable portable chest with bilateral chest tubes without sizable pneumothorax identified and continued subcutaneous air persists with persistent interstitial changes bilaterally with airspace disease in the bilateral lung bases that are unchanged. FiO2 is 60% and PEEP of 16. 10/14/2021 Patient is seen and evaluated in the ICU being closely monitored with multiple medical consultations following. at the bedside today and had detailed discussion with overall prognosis. Plan is to proceed with PEG tube and tracheostomy placement with surgery Dr. Nelson today and anticoagulant continues to be on hold for this procedure. Patient continues on mechanical ventilation with an FiO2 of 70% and PEEP of 16. Chest x-ray today shows improving infiltrate with bibasilar residual and bilateral chest tubes remain present with no pneumothorax evident on either side and again subcutaneous emphysema is noted. 10/15/2021 Patient is seen in the ICU being closely monitored. Patient is status post PEG and trach placement yesterday. Chest x-ray today shows bilateral patchy lung infiltrates greater at the right base with diffuse increased lung markings and bilateral chest tubes remain present and subcutaneous emphysema on the right is diminished. Patient continues with an FI02 of 60 and peep is 16. To resume tube feeds per surgery. Patient continues on norepinephrine and sedation. Patient is receiving IV lasix daily. 10/16/2021 Patient is currently in the MICU and remains on ventilator. Status post tracheostomy and PEG tube placement on 10/14/2021. Patient is sedated and paralyzed. Also on Cleviprex. Chest x-ray showed no acute cardiopulmonary disease with no interval changes. Laboratory data showed WBC 16.9 hemoglobin 8.9 and platelets 278 BUN 19 and creatinine 0.5 and calcium 8.1 patient is being continued on dexamethasone 6 mg daily, Lasix 40 mg IV daily and multivitamins and anticoagulation with Eliquis. Pulmonary and general surgery is on board. 10/17/2021 Patient is in the MICU. Remains on the current ventilator via tracheostomy. Status post tracheostomy and PEG tube placement on 10/14/2021. Sedated and paralyzed and also on fentanyl drip. Currently on assist control with tidal volume of 420, FiO2 80% and PEEP of 16. Respiratory of 30. Chest x-ray showed no interval change in acute cardiopulmonary disease Laboratory data showed WBC 15.8 hemoglobin 8.2 and platelets 271 Sodium 136 potassium 3.1 chloride 100 bicarb is 32 BUN 21 creatinine 0.48 and albumin 2.3 Patient is being continued on Lasix IV, dexamethasone and anticoagulation with Eliquis. 10/18/2021 Patient is seen in follow-up and continues in the ICU with multiple medical consultations following. Patient continues on mechanical vent with an FI02 of 70% and peep is 16. Chest xray shows overall stable exam with interstitial changes and bilateral patchy infiltrates with right greater than left and greater at the bases with bilateral chest tubes noted. no appreciable pneumothorax. Patient continues on propofol and fentanyl along with cleviprex and rocuronium. Eliquis has been resumed. Potassium is 3.3 and will be replaced per protocol. Patient also continues to receive IV lasix daily. 10/19/2021 Patient is seen this morning and continues to be in the ICU with multiple medical consultations following. Patient continues with bilateral chest tubes and remains on mechanical ventilation with an FiO2 of 65% and PEEP is 16. Chest x-ray today shows Bilateral multifocal and confluent opacification greatest in the lower lungs consistent with COVID-19 infection and/or ARDS all redemon strated with no significant change from one day earlier and continued bilateral chest tubes without pneumothorax redemonstrated. 10/20/2021 Patient continues to be in the ICU under close critical monitoring with multiple medical consultations following. Patient continues with bilateral chest tubes although per nursing staff may possibly discontinued today. Chest x-ray today shows stable portable chest with no change in scattered mixed interstitial and alveolar infiltrates. Patient remains on mechanical ventilation via tracheostomy with an FiO2 of 55% and PEEP is 15. Patient continues on Cleviprex along with rocuronium and sedation. 10/21/2021 Patient continues in the MICU being closely monitored. Chest tubes were removed today and chest xray stable with interstitial changes and basilar ground glass, that is similar to previous with slight improvement. Patient continues on mechanical vent with an FI02 of 70% and peep is 14. Patient remains sedated and per nursing staff working on weaning paralytics. Patient continued on rocuronium. Patient is tolerating tube feeds and also continues on IV lasix daily with generalized edema noted throughout. 10/22/2021 Patient is currently MICU. Patient was taken off paralytic and chest tubes yesterday. Continued on pressure support with PEEP of 13. 88 this morning patient again desaturated. Patient became hypotensive and patient was started on norepinephrine. Chest x-ray showed large pneumothorax on the right. Right chest tube was reinserted. Patient is on pressure control. Remains sedated and mechanically ventilated. Laboratory data showed WBC 13.7 hemoglobin 7.7 and platelets 314 Sodium 140 potassium 3.0 chloride 102 bicarb is 37 BUN 19 and creatinine 0.44 and calcium 8.1 Patient is being continued dexamethasone multivitamins and anticoagulation with Eliquis. Patient is also on IV Lasix. Potassium will be replaced. 10/23/2021 Patient is currently MICU. Patient is on mechanical ventilator via trach tube. Patient developed right-sided tension pneumothorax. Again patient had issues with pneumothorax around 10 PM yesterday. Chest tube has to be replaced. Patient is also requiring pressor support. Off pressors this morning. On pressure support. PEEP of 13 and FiO2 100%. Laboratory data showed WBC 13.7 hemoglobin 7.7 and platelets 314 Sodium 140 potassium 3.0 chloride 102 bicarb is 37 BUN 19 and creatinine 0.44 and calcium 8.1 cultures have been negative. Patient is being current on dexamethasone, Eliquis and also IV Lasix 40 mg daily. 10/24/2021 Patient is currently in the MICU. Currently on mechanical ventilator via tracheal tube. Continue propofol and fentanyl. Remains pressure support with PEEP of 13 FiO2 reduced to 70%. Chest x-ray showed bilateral multifocal and confluent opacities consistent with COVID-19 infection and ARDS are redemonstrated and stable. Right-sided chest tube with small apical pneumothorax estimated 10 to 15% improved from 1 day earlier. Pneumo mediastinum noted. Laboratory data showed WBC 14.2 hemoglobin 7.1 and platelets 317 Sodium 140 potassium 3.2 chloride 104 bicarb is 38 BUN 20 and creatinine 0.46 and calcium 7.8. Patient is being continued on dexamethasone, Eliquis and also on IV Lasix. Currently on multivitamins. 10/25/2021 Patient is seen this morning continues to be in the ICU with close monitoring. Patient continues on mechanical vent via tracheostomy and FiO2 of 65% with a PEEP of 13. Chest x-ray this morning shows right-sided chest tube in place with continued small to moderate right sided pneumothorax slightly smaller in the interval, apical component measuring 2.3 cm versus 2.8 cm previously along with interstitial opacities persist in pneumonitis versus mild pulmonary edema, status post right side thoravent place this morning with pulmonary stove mechanic showing resolution of the apical and lateral components of the pneumothorax and 5 mm basilar components remain. Patient requiring more oxygen supplementation and FiO2 being increased to 75%. Hemoglobin found to be 6.3 and awaiting to receive a unit of PRBC. Patient also continues on Nimbex along with Cleviprex, oral dexamethasone, vitamin and zinc supplements along with oral eliquis, along with fentanyl and propofol for sedation. 10/26/2021 Patient is seen in follow-up today continues on mechanical ventilation with an FiO2 of 75% which is currently titrating down to 65% per nursing staff with an FiO2 of 13. Patient continues on Cleviprex and Nimbex and attempts at weaning although not tolerating well. Patient also continues on fentanyl and propofol for sedation. Chest x-ray today shows a right-sided thoracic vent and chest to both present and overlying appropriate positions with minimal right-sided apical pneumothorax present and persistent bilateral interstitial groundglass opacities noted with no evident pleural effusion to correlate for pneumonia. Hemoglobin improved to 8.7 today after 1 unit of PRBC. Will continue to monitor closely. Review of systems: Unable to obtain as patient is mechanically intubated and sedated Labs: WBC is 13.1, hemoglobin is 8.7, platelets are 321, sodium is 136, potassium 3.5, BUN 23, creatinine 0.35, calcium 8.2. Active Medications Apixaban (Apixaban 5 Mg Tab) 5 mg PO BID [facility]; Protocol Last Admin: 10/26/21 08:40 Dose: 5 mg Documented by: Artificial Tears (Artificial Tears-Hypromellose Drops 15 Ml Btl) 2 drops BOTH EYES QID [facility] Last Admin: 10/26/21 12:51 Dose: 2 drops Documented by: Ascorbic Acid (Ascorbic Acid 500 Mg Tab) 500 mg PO BID [facility] Last Admin: 10/26/21 08:40 Dose: 500 mg Documented by: Chlorhexidine Gluconate (Chlorhexidine Gluconate 15 Ml Cup) 15 ml MUCOUS MEM BID [facility] Last Admin: 10/26/21 08:42 Dose: 15 ml Documented by: Dexamethasone (Dexamethasone 2 Mg Tab) 4 mg PO DAILY [facility] Last Admin: 10/26/21 08:40 Dose: 4 mg Documented by: Docusate Sodium (Docusate Oral Soln 100 Mg/10 Ml Cup) 100 mg PO DAILY PRN PRN Reason: Constipation Last Admin: 10/18/21 15:53 Dose: 100 mg Documented by: Ergocalciferol (Ergocalciferol 1,250 Mcg (50,000 Iu) Capsule) 1,250 mcg PO MORRIS [facility] Last Admin: 10/24/21 09:11 Dose: Not Given Documented by: Furosemide (Furosemide 10 Mg/Ml 4 Ml Vial) 40 mg IV DAILY [facility] Last Admin: 10/26/21 08:41 Dose: 40 mg Documented by: Propofol 1,000 mg/ IV Solution 100 mls @ 0 mls/hr IV .Q0M [facility]; Protocol Last Admin: 10/26/21 13:46 Dose: 50 mcg/kg/min, 27.6 mls/hr Documented by: Sodium Chloride (Saline 0.9%) 1,000 mls @ 20 mls/hr IV .Q24H [facility] Last Admin: 10/26/21 00:41 Dose: 20 mls/hr Documented by: Fentanyl Citrate 2,500 mcg/ (Sodium Chloride) 250 mls @ 4.6 mls/hr IV .Q24H [facility]; Protocol Last Titration: 10/26/21 11:04 Dose: 3 mcg/kg/hr, 27.6 mls/hr Documented by: Clevidipine 25 mg/ IV Solution 50 mls @ 2 mls/hr IV .Q24H [facility]; Protocol Last Admin: 10/26/21 13:47 Dose: 10 mg/hr, 20 mls/hr Documented by: Lactated Ringer's (Lactated Ringers) 1,000 mls @ 20 mls/hr IV .Q24H [facility] Last Admin: 10/26/21 12:50 Dose: Not Given Documented by: Norepinephrine Bitartrate 8 mg (/ Sodium Chloride) 258 mls @ 9.143 mls/hr IV .Q24H [facility]; Protocol Last Admin: 10/26/21 09:15 Dose: Not Given Documented by: Rocuronium [place] 400 mg/ (Sodium Chloride) 140 mls @ 9.954 mls/hr IV .Q14H4M [facility]; Protocol Last Admin: 10/26/21 10:22 Dose: Not Given Documented by: Cisatracurium Besylate 200 mg/ (Sodium Chloride) 200 mls @ 5.424 mls/hr IV .Q24H [facility]; Protocol Last Admin: 10/26/21 12:50 Dose: Not Given Documented by: Insulin Aspart (Insulin Aspart (Novolog) 100 Unit/Ml Vial) 0 unit SQ Q6HR [facility]; Protocol Last Admin: 10/26/21 12:42 Dose: Not Given Documented by: Miscellaneous Information (Pneumonia Protocol Utilized 1 Each Misc) 1 each PO ONCE PRN PRN Reason: Per Protocol Miscellaneous Information (Potassium Replacement Protocol 1 Each Mis) 1 each MISCELLANE DAILY PRN; Protocol PRN Reason: Per Protocol Naloxone HCl (Naloxone 0.4 Mg/Ml 1 Ml Vial) 0.2 mg IV Q2M PRN PRN Reason: Opioid Reversal Pantoprazole Sodium (Pantoprazole 40 Mg/10 Ml Vial) 40 mg IV DAILY [facility] Last Admin: 10/26/21 08:41 Dose: 40 mg Documented by: Potassium Bicarbonate (Potassium Bicarbonate/Cit Ac 20 Meq Tablet.Eff) 20 meq NG-TUBE Q1HR [facility]; Protocol Stop: 10/26/21 14:01 Last Admin: 10/26/21 12:50 Dose: 20 meq Documented by: Quetiapine Fumarate (Quetiapine 25 Mg Tab) 25 mg PO BID [facility] Last Admin: 10/26/21 10:23 Dose: 25 mg Documented by: Zinc Sulfate (Zinc Sulfate 220 Mg Cap) 220 mg PO DAILY [facility] Last Admin: 10/26/21 08:40 Dose: 220 mg Documented by: Physical Exam: Gen: This is a 61-year-old female currently sedated and intubated. mechanical ventilation Fio2 increased today to 65% with a PEEP of 13 HEENT: Head is atraumatic, normocephalic. Pupils equal, round. Sclerae is anicteric. tracheostomy noted NECK: Supple. No JVD. No lymphadenopathy. No thyromegaly. tracheostomy noted LUNGS: Diminished breath sounds bilaterally with coarse rhonchi and crackles noted. No intercostal retractions. Right side chest tube and thoravent noted HEART: S1, S2 are muffled ABDOMEN: Soft. Bowel sounds are present. No masses. No tenderness. peg tube noted. EXTREMITIES: No pedal edema. No calf tenderness. generalized edema noted NEUROLOGICAL: Patient is currently intubated and sedated Assessment: Acute COVID-19 infection with acute COVID-19 bilateral interstitial pneumonia with hypoxic hypercarbic respiratory failure on mechanical vent status post trach and peg tube placement on 10/14/2021 Subcutaneous emphysema of the neck and chest, improving bilateral pneumothoraces with chest tube placement and is status post removal of chest tubes 2.3.2021 Status post reinsertion of chest tubes on 10/22/2021 due to a tension pneumothorax on the right, status post thoraVent placement as well on the right on 10/25/2021 Acute blood loss anemia secondary to bilateral chest tube placements, possible hypovolemic shock requiring pressor support, currently hypertensive and off pressors, continues on cleviprex Non-sustained ventricular tachycardia, currently sinus Acute left leg deep vein thrombosis Acute respiratory acidosis Primary hypercoagulable state and factor V deficiency Mild transaminitis, possibly secondary to COVID-19 History of degenerative joint disease History of fibromyalgia Elevated inflammatory markers of COVID-19 Obesity with a body mass index of 38.1 Full code Plan: Recommend to continue with current medications and follow along closely with multiple medical consultations. Prognosis remains extremely poor and guarded with multiple complex medical issues noted. Patient continues on mechanical ventilation via tracheostomy and FiO2 65% with PEEP of 13. Recommend to continue with current medications. Patient developed tension pneumothorax on the right and underwent chest tube placement although chest x-rays yesterday and chest x-ray today reviewed as mentioned previously. Patient continues on cleviprex and Nimbex currently attempting to hold Nimbex to assess patient and will continue along with propofol and fentanyl. Hemoglobin improved today status post 1 unit of PRBC. Recommend repeat labs and continued close monitoring. Again due to multiple complex medical issues overall prognosis is extremely poor and quite guarded. Objective - Vital Signs Vital signs: Vital Signs Temp 98.9 F 10/26/21 04:00 Pulse 57 L 10/26/21 07:00 Resp 26 H 10/26/21 07:00 BP 129/56 10/25/21 13:58 Pulse Ox 99 10/26/21 07:00 Intake & Output 10/25/21 10/26/21 10/26/21 18:59 06:59 18:59 Intake Total 8972.329 1392.465 33.305 Output Total 1930 415 45 Balance -235.211 816.465 -11.695 Weight 90.4 kg 92 kg Intake: IV 273 253 23 0.9 NS 240 220 20 pressure bag 33 33 3 Intake, IV Titration 781.789 778.465 0.305 Amount Cisatracurium 200 mg In 5.334 193.637 Sodium Chloride 0.9% 180 ml @ 1 MCG/KG/MIN 5.424 mls/hr IV .Q24H [facility] Rx#: [id number] Clevidipine Butyrate 25 213.233 134.800 mg In Empty Bag 1 bag @ 1 MG/HR 2 mls/hr IV .Q24H [facility] Rx#:[id number] Norepinephrine 8 mg In 17.312 0.305 Sodium Chloride 0.9% 250 ml @ 0.05 MCG/KG/MIN 9. 143 mls/hr IV .Q24H [facility] Rx#:[id number] fentaNYL (PF) 2,500 mcg 263.330 250.00 In Sodium Chloride 0.9% 200 ml @ 0.5 MCG/KG/HR 4. 6 mls/hr IV .Q24H [facility] Rx# :[id number] propofoL 1,000 mg In 299.892 182.716 Empty Bag 1 bag @ Titrate IV .Q0M [facility] Rx#: [id number] Tube Feeding 120 110 10 Blood Product 310 Rc As-1 Unit 310 [id number] Other 210 90 Output: Chest Tube Drainage 15 Chest Tube Right 15 Urine 1930 415 30 Other: Voiding Method Indwelling Catheter Indwelling Catheter ABP, PAP, CO, CI - Last Documented Arterial Blood Pressure 122/47 - Labs CBC & Chem 7: 10/26/21 04:00 10/26/21 11:23 Labs: Abnormal Lab Results - Last 24 Hours (Table) 10/12/21 10/25/21 10/25/21 Range/Units 02:23 06:15 11:54 WBC (3.8-10.6) k/uL RBC (3.80-5.40) m/uL Hgb (11.4-16.0) gm/dL Hct (34.0-46.0) % RDW (11.5-15.5) % Neutrophils # (1.3-7.7) k/uL Lymphocytes # (1.0-4.8) k/uL Monocytes # (0-1.0) k/uL ABG pCO2 (35-45) mmHg ABG pO2 (83-108) mmHg ABG HCO3 (21-25) mmol/L ABG Total CO2 (19-24) mmol/L ABG O2 Saturation (94-97) % Sodium (137-145) mmol/L Carbon Dioxide (22-30) mmol/L BUN (7-17) mg/dL Creatinine (0.52-1.04) mg/dL POC Glucose (mg/dL) 202 H (75-99) mg/dL Calcium (8.4-10.2) mg/dL Crossmatch See Detail See Detail 10/25/21 10/25/21 10/25/21 Range/Units 16:17 17:31 23:55 WBC 19.8 H (3.8-10.6) k/uL RBC 3.66 L (3.80-5.40) m/uL Hgb 10.7 L D (11.4-16.0) gm/dL Hct (34.0-46.0) % RDW 16.5 H (11.5-15.5) % Neutrophils # 17.7 H (1.3-7.7) k/uL Lymphocytes # 0.7 L (1.0-4.8) k/uL Monocytes # 1.1 H (0-1.0) k/uL ABG pCO2 (35-45) mmHg ABG pO2 (83-108) mmHg ABG HCO3 (21-25) mmol/L ABG Total CO2 (19-24) mmol/L ABG O2 Saturation (94-97) % Sodium (137-145) mmol/L Carbon Dioxide (22-30) mmol/L BUN (7-17) mg/dL Creatinine (0.52-1.04) mg/dL POC Glucose (mg/dL) 167 H 108 H (75-99) mg/dL Calcium (8.4-10.2) mg/dL Crossmatch 10/26/21 10/26/21 10/26/21 Range/Units 04:00 04:00 05:25 WBC 13.1 H (3.8-10.6) k/uL RBC 3.00 L (3.80-5.40) m/uL Hgb 8.7 L D (11.4-16.0) gm/dL Hct 27.7 L (34.0-46.0) % RDW 16.5 H (11.5-15.5) % Neutrophils # (1.3-7.7) k/uL Lymphocytes # (1.0-4.8) k/uL Monocytes # (0-1.0) k/uL ABG pCO2 53 H (35-45) mmHg ABG pO2 182 H (83-108) mmHg ABG HCO3 36 H (21-25) mmol/L ABG Total CO2 38 H (19-24) mmol/L ABG O2 Saturation 100.0 H (94-97) % Sodium 136 L (137-145) mmol/L Carbon Dioxide 35 H (22-30) mmol/L BUN 23 H (7-17) mg/dL Creatinine 0.35 L (0.52-1.04) mg/dL POC Glucose (mg/dL) (75-99) mg/dL Calcium 8.2 L (8.4-10.2) mg/dL Crossmatch
[2021-10-26 18:05] LABS: Glucose,Whole Blood 128 mg/dL (75-99)
[2021-10-27] MEDS: CLEVIDIPINE BUTYRATE 25 MG in EMPTY BAG 1 BAG IV SCH ×5 (00:12→13:22)
[2021-10-27] MEDS: SODIUM CHLORIDE 0.9% 1,000 ML IV SCH (00:14)
[2021-10-27 00:18] LABS: Glucose,Whole Blood 86 mg/dL (75-99)
[2021-10-27] MEDS: INSULIN ASPART (NovoLOG) 100 UNIT/ML VIAL SQ SCH ×4 (00:18→19:13)
[2021-10-27] MEDS: fentaNYL (PF) 2,500 MCG in SODIUM CHLORIDE 0.9% 200 ML IV SCH ×2 (03:12→18:09)
[2021-10-27 04:22] LABS: Anisocytosis Slight; Basophils % (A) 0 %; Eosinophils # (A) 0.2 k/uL (0-0.7); Eosinophils % (A) 2 %; HCT 29.2 % (34.0-46.0); HGB 9.2 gm/dL (11.4-16.0); Hypochromasia Marked; Lymphocytes # (A) 1.8 k/uL (1.0-4.8); Lymphocytes % (A) 20 %; MCH 28.7 pg (25.0-35.0); MCHC 31.4 g/dL (31.0-37.0); MCV 91.4 fL (80.0-100.0); Mean Platelet Volume 7.9; Monocytes # (A) 0.5 k/uL (0-1.0); Monocytes % (A) 6 %; Neutrophils # (A) 6.4 k/uL (1.3-7.7); Neutrophils % (A) 71 %; Platelet Count 320 k/uL (150-450); Poikilocytosis Moderate; RDW 16.4 % (11.5-15.5); WBC 9.1 k/uL (3.8-10.6)
[2021-10-27 04:33] LABS: African American GFR (CKD) >90 (>60 ml/min/1.73 sqM); Anion Gap 3 mmol/L; Blood Urea Nitrogen 20 mg/dL (7-17); Calcium 8.3 mg/dL (8.4-10.2); Carbon Dioxide 34 mmol/L (22-30); Chloride 100 mmol/L (98-107); Glucose 82 mg/dL (74-99); Non-African American GFR(CKD) >90 (>60 ml/min/1.73 sqM); Potassium 3.3 mmol/L (3.5-5.1); Sodium 137 mmol/L (137-145)
[2021-10-27 05:32] LABS: ABG Base Excess 13.3 mmol/L; ABG HCO3 36 mmol/L (21-25); ABG Oxygen Saturation 89.1 % (94-97); ABG PCO2 46 mmHg (35-45); ABG PH 7.51 (7.35-7.45); ABG TCO2 38 mmol/L (19-24)
[2021-10-27 05:36] LABS: ABG PO2 53 mmHg (83-108); Allen Test Performed? no
[2021-10-27 06:17] LABS: Glucose,Whole Blood 86 mg/dL (75-99)
--- NOTE | 2021-10-27 07:23 | XR ---
EXAMINATION TYPE: XR chest 1V portable DATE OF EXAM: 10/27/2021 COMPARISON: 10/26/2021 HISTORY: SOB, Follow Up FINDINGS: Indwelling tubes and catheters are unchanged. Right thoracic vent is in place as well as a right-sided chest tube. Right sided pneumothorax has inc reased in size and is estimated at 15%. No significant change in interstitial infiltrates seen bilaterally. Stable appearance of the cardio-mediastinal structures at this time. IMPRESSION: 1. Enlarging right-sided pneumothorax estimated at 15%. Clinical correlation and follow up until reso lution is recommended.
[2021-10-27] MEDS: APIXABAN 5 MG TAB PO SCH ×2 (09:26→21:05)
[2021-10-27] MEDS: ZINC SULFATE 220 MG CAP PO SCH (09:26)
[2021-10-27] MEDS: ASCORBIC ACID 500 MG TAB PO SCH ×2 (09:26→21:05)
[2021-10-27] MEDS: dexAMETHasone 2 MG TAB PO SCH (09:26)
[2021-10-27] MEDS: FUROSEMIDE 10 MG/ML 4 ML VIAL IV SCH (09:26)
[2021-10-27] MEDS: QUEtiapine 25 MG TAB PO SCH ×2 (09:27→21:06)
[2021-10-27] MEDS: PANTOPRAZOLE 40 MG/10 ML VIAL IV SCH (09:27)
[2021-10-27] MEDS: ARTIFICIAL TEARS-HYPROMELLOSE DROPS 15 ML BTL BOTH EYES SCH ×4 (09:28→21:06)
[2021-10-27] MEDS: POTASSIUM BICARBONATE/CIT AC 20 MEQ TABLET.EFF NG-TUBE SCH ×2 (09:34→10:37)
[2021-10-27 11:31] LABS: Glucose,Whole Blood 154 mg/dL (75-99)
--- NOTE | 2021-10-27 11:37 | P.PN ---
Subjective Progress Note Date: 10/27/21 Principal diagnosis: Acute hypoxic respiratory failure secondary to COVID-19 pneumonia 10/24/2021, the patient remains on a mechanical ventilator. This morning, she is sedated with a combination of propofol and fentanyl. Propofol is running at 45 mcg/kg per minute and the fentanyl is running at 1.5 mcg/kg/h. I have taken this patient off paralytics. Meanwhile, switch this patient a pressure control mode of mechanical ventilation at the rate of 26, pressure control of 22, FiO2 of 70% with a PEEP of 13. The chest x-ray from today showing a small right apical pneumothorax. Chest tube is in a good location. There are still persistent air leak and the chest tube. Tracheostomy tube is high in the trachea. Nevertheless, there is no air leaks. The patient continues to have diffuse bilateral pulmonary infiltrates more so in the right lower lobe. The blood gases from today shows a pH of 7.50 with a pCO2 of 47 and pO2 of 96 and this was on FiO2 of 70%. Otherwise, the patient remains hemodynamically stable. She remains on anticoagulation and the patient remains on Eliquis 5 mg by mouth twice a day.. The patient is also on Decadron as well as a 4 mg by mouth daily no other new complaints otherwise for now. The patient is receiving enteral feeding for nutritional support via PEG tube. She is currently on vital high protein at the rate of 10 mL an hour. The blood work from today shows a white cell count 14.2 with hemoglobin of 7.1 and a platelet count of 317. Sodium is at 140 with potassium level of 3.4 which is going to be replaced. BUN is at 20 with a creatinine of 0.4. Blood sugar is at 103. No other significant events overnight. No synovitis fluid overload. Overall fluid balance over the past 24 hours has been -1083 cc. Reevaluated today on 10/25/2021, patient remains in the ICU, intubated, mechanically ventilated. Patient is presently on pressure control mode of mechanical ventilation, pressure control of 18, TI of 0.9 FiO2 60% PEEP of 15. ABG showed a pO2 of 100 pCO2 of 58 pH of 7.41, however during my evaluation the patient was noted to desaturate and her chest x-ray was showing worsening right- sided pneumothorax, hence went ahead and placed a 13-Turkmen thoravent in the right upper chest area at the level of the midclavicular line and third intercostal space. Follow-up chest x-ray showed complete reexpansion of the right lung, To the old chest tube in place, and connected both to pleural vacs. Patient is on fentanyl at 2.5 mcg/kg/h, is also on propofol at 50 and considering the patient was noted to have increased work of breathing and she was desaturating I recommended we place her back on Nimbex. Patient is rece iving vital Hb at 10 mL per hour. She is not requiring any pressors. Her peak airway pressure is 36 plateau pressure is 34. Her pressure control was increased from 18-22, and a PEEP was cut down to 13. Instructed the nurses to titrate FiO2 down while the patient is on Nimbex. Patient is noted to be awake, opens eyes, but does not follow any instructions. Hemoglobin today is 6.3, patient will receive at least a unit of packed RBCs. WBC count is 9.1. Electrolytes and renal profile are normal except for low potassium of 3.4. Chest x-ray post chest tube placement showed interval resolution of the apical and lateral pneumothorax. Reevaluated today on 10/26/2021, patient remains in the ICU, remains intubated mechanically ventilated, sedated and paralyzed. She is on pressure control mode of mechanical ventilation with a pressure control of 22 inspiratory time of 0.10 seconds. FiO2 60% PEEP of 13. ABG on 75% earlier showed a pO2 of 182 pCO2 of 53 pH of 7.44. Patient remains on multiple drips including Nimbex at 1.5 pg/kg/m, propofol at 50 mcg/kg/m, fentanyl 2 mcg/kg/h. IV fluid at 20 mL per hour. Peak airway pressure is 36 plateau pressure is 25. Patient remains on vital hpf at 10 mL per hour. Today I cut down the FiO2 to 50%. Chest x-ray showed excellent expansion of the right lung, right-sided chest tube and right sided thoravent are in the proper position, no evidence of air leak and the pleural VAC. And the right lung seems to be almost completely reexpanded. Very small tiny apical pneumothorax is noted. Today I'm planning to hold the Nimbex and hopefully maintain the patient on propofol and sentinel if possible. And I have no plans to remove any of the chest tubes at present. Chest x-ray continues show bilateral infiltrates consistent with COVID-19 pneumonia, nonetheless overall the chest x-ray is showing improvement. WBC count is 13.1 hemoglobin 8.7. A left was are normal renal profile is normal bicarb is 35 Reevaluated today on 11/06/2021, patient remains in the ICU, intubated and mechanically ventilated. She is on assist control rate of 26, pressure control 22, TI of 0.90 PEEP of 13 FiO2 70%. Continues to have a relatively elevated plateau pressure of 36 consistent with ARDS. Continues to have abnormal chest x-ray showing bilateral airspace disease, and a small right apical right-sided pneumothorax. Continues to have air leak in the right-sided chest tube, but none in the THORAVENT pleural VAC. ABG showed a pO2 of 53 pCO2 46 pH of 7.50 hence the FiO2 was increased from 65% to 70%. CBC is relatively normal WBC count is 9.1 hemoglobin is 9.2. Basic metabolic profile is normal, potassium is low being corrected. Patient remains on multiple drips including fentanyl 2 mcg/kg/h, propofol at 55 mcg/kg/m, she is on clevidipine 12 mg per hour, patient is off Nimbex since yesterday. IV fluids at KVO. Objective - Vital Signs Vital signs: Vital Signs Temp 98.4 F 10/27/21 08:00 Pulse 105 H 10/27/21 11:00 Resp 36 H 10/27/21 11:00 BP 141/55 10/26/21 18:30 Pulse Ox 84 L 10/27/21 11:00 Intake & Output 10/26/21 10/27/21 10/27/21 18:59 06:59 18:59 Intake Total 8539.941 2598.137 406.892 Output Total 3715 670 850 Balance -2542.145 668.137 -443.108 Weight 92 kg 93 kg Intake: IV 299 276 92 0.9 NS 260 240 80 pressure bag 39 36 12 Intake, IV Titration 653.855 792.137 244.892 Amount Cisatracurium 200 mg In 38.917 Sodium Chloride 0.9% 180 ml @ 1 MCG/KG/MIN 5.424 mls/hr IV .Q24H [facility] Rx#: [id number] Clevidipine Butyrate 25 93.733 174.233 49.2 mg In Empty Bag 1 bag @ 1 MG/HR 2 mls/hr IV .Q24H [facility] Rx#:[id number] Norepinephrine 8 mg In 0.305 95.692 Sodium Chloride 0.9% 250 ml @ 0.05 MCG/KG/MIN 9. 143 mls/hr IV .Q24H [facility] Rx#:[id number] fentaNYL (PF) 2,500 mcg 247.02 257.82 In Sodium Chloride 0.9% 200 ml @ 0.5 MCG/KG/HR 4. 6 mls/hr IV .Q24H [facility] Rx# :[id number] propofoL 1,000 mg In 273.88 360.084 100 Empty Bag 1 bag @ Titrate IV .Q0M [facility] Rx#: [id number] Tube Feeding 130 120 40 Other 90 150 30 Output: Chest Tube Drainage 20 10 Chest Tube Right 15 Thora-Vent Right Upper 5 10 Anterior Chest Urine 3695 660 850 Other: Voiding Method Indwelling Catheter Indwelling Catheter ABP, PAP, CO, CI - Last Documented Arterial Blood Pressure 147/53 - Exam Physical Exam: Revealed a 61-year-old female in no distress. Intubated, sedated not paralyzed since yesterday. Head: Atraumatic, normocephalic PEG tube is intact. Tracheostomy is intact. HEENT:[Neck is supple.] [No neck masses.] [No thyromegaly.] [No JVD.] Chest: [Symmetrical chest expansion crackles and rhonchi at the bases. Right- sided chest tube and the right sided thoravent noted. Air leak noted in the Pleur-evac of the right-sided chest tube but none in the right sided thoravent Cardiac Exam: [Distant S1 and S2, no S3 gallop. No murmur. Abdomen: [Soft, nontender, no megaly, no rebound, no guarding, normal bowel sounds.] Extremities: [No clubbing, trace of bipedal edema, no cyanosis.] Good pulses bilaterally. Neurological Exam: Sedated, could not assess. Psychiatric: Cannot assess patient is as noted above Skin: No rashes. - Labs CBC & Chem 7: 10/27/21 04:05 10/27/21 04:05 Labs: Abnormal Lab Results - Last 24 Hours (Table) 10/26/21 10/26/21 10/26/21 Range/Units 11:23 11:48 18:04 RBC (3.80-5.40) m/uL Hgb (11.4-16.0) gm/dL Hct (34.0-46.0) % RDW (11.5-15.5) % ABG pH (7.35-7.45) ABG pCO2 (35-45) mmHg ABG pO2 (83-108) mmHg ABG HCO3 (21-25) mmol/L ABG Total CO2 (19-24) mmol/L ABG O2 Saturation (94-97) % Potassium 3.4 L (3.5-5.1) mmol/L Carbon Dioxide (22-30) mmol/L BUN (7-17) mg/dL Creatinine (0.52-1.04) mg/dL POC Glucose (mg/dL) 112 H 128 H (75-99) mg/dL Calcium (8.4-10.2) mg/dL 10/27/21 10/27/21 10/27/21 Range/Units 04:05 04:05 05:26 RBC 3.20 L (3.80-5.40) m/uL Hgb 9.2 L (11.4-16.0) gm/dL Hct 29.2 L (34.0-46.0) % RDW 16.4 H (11.5-15.5) % ABG pH 7.51 H (7.35-7.45) ABG pCO2 46 H (35-45) mmHg ABG pO2 53 L* (83-108) mmHg ABG HCO3 36 H (21-25) mmol/L ABG Total CO2 38 H (19-24) mmol/L ABG O2 Saturation 89.1 L (94-97) % Potassium 3.3 L (3.5-5.1) mmol/L Carbon Dioxide 34 H (22-30) mmol/L BUN 20 H (7-17) mg/dL Creatinine 0.35 L (0.52-1.04) mg/dL POC Glucose (mg/dL) (75-99) mg/dL Calcium 8.3 L (8.4-10.2) mg/dL Assessment and Plan Assessment: Impression: Acute hypoxic respiratory failure secondary to COVID-19 pneumonia and complicated with ARDS. Patient was intubated on 09/25/2021. Status post tracheostomy and PEG tube placement. 10/14/2021. Acute deep vein thrombosis, on Eliquis. Bilateral pneumothoraces requiring bilateral chest tube placement. However since then the left-sided chest tube was removed, right-sided chest tube had to be placed again by Dr. Harris,I placed a right sided thoravent on 10/25/21 Acute COVID-19 pneumonia Subcutaneous emphysema, resolved. Prior history of DVT History of fibromyalgia Degenerative joint disease Mildly elevated liver enzymes secondary to cardona virus infection. Nonsustained ventricular tachycardia, resolved Recommendation: Keep patient off Nimbex, continue lower doses of fentanyl and propofol at this period. Continue ventilatory support. Continue pressure control mode of mechanical ventilation, titrate FiO2 accordingly maintaining O2 saturation above 89% Continue propofol, fentanyl, however cut down the dose.. Tracheostomy care Continue Eliquis at 5 mg twice a day. Continue nutritional support/enteral feeding Continue GI and DVT prophylaxis, patient is on Protonix Continue COVID-19 cocktail. Including Decadron. Patient is critically ill. Critical care time is over 30 minutes. Time with Patient: Greater than 30
[2021-10-27] MEDS: CISATRACURIUM 200 MG in SODIUM CHLORIDE 0.9% 180 ML IV SCH (13:29)
[2021-10-27] MEDS: NOREPINEPHRINE 8 MG in SODIUM CHLORIDE 0.9% 250 ML IV SCH (13:29)
[2021-10-27] MEDS: LACTATED RINGERS 1,000 ML IV SCH (14:12)
[2021-10-27 14:17] LABS: Glucose,Whole Blood 189 mg/dL (75-99)
--- NOTE | 2021-10-27 15:23 | P.PN ---
Subjective Progress Note Date: 10/27/21 This is a 61-year-old female who was recently admitted with acute COVID-19 pneumonia with acute COVID-19 bilateral interstitial pneumonia and also with transaminitis and being closely monitored. Patient remains in the ICU and currently intubated and sedated with an FiO2 of 70% and PEEP is 18. 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 Patient did have a venous Doppler study done recently which showed left leg DVT and patient is maintained on Eliquis will continue. Patient also continues on empiric antibiotics and awaiting for sputum culture finalized. Patient was started on IV cefepime and will continue. Patient is also continued on oral dexamethasone along with vitamin and zinc supplements and will continue. Patient with some mild volume overload and given a dose of IV Lasix push today. 09/29/2021 Patient is seen and evaluated this morning continues to be closely monitored in the ICU and continues to be on mechanical ventilation and sedated. FiO2 was increased at 80% with a PEEP of 18 and oxygen saturations between 87-91%. Patient developing subcutaneous emphysema in the neck and chest wall area and chest x-ray today shows bilateral multifocal and confluent opacification is redemonstrated consistent with COVID-19 infection with a new small left apical pneumothorax estimated under 5% with new pneumomediastinum and recurrent overlying subcutaneous emphysema noted. Patient is white blood count mildly elevated at 16.1 and is continued on oral dexamethasone along with oral eliquis for anticoagulation. Patient continues to be on IV cefepime and blood and sputum cultures are negative thus far. 09/30/2021 Patient is seen today continues to be closely monitored in the ICU with multiple medical consultations following. Patient continues to be mechanically intubated and sedated with continued subcutaneous emphysema noted. Chest xray shows a trace left apical pneumothorax that is minimally smaller 7mm versus 1cm previously, extensive bilateral subcutaneous emphysema persists and diffuse interstitial changes and bilateral patchy opacities persist with slight improvement in aeration in the lower lungs. Per nursing staff corbin was clogged with copious amounts of white discharge and will add diflucan and corbin catheter has been changed and draining adequately. Patient continues on IV cefepime. Patient tolerating tube feeds and will continue. 10/01/2021 Patient is seen and evaluated in follow up this morning and continues to be closely monitored. Multiple medical consultations following and patient c ontinues to be on mechanical vent and sedated. Patient continues on IV Cefepime and diflucan. Patient chest xray today shows stable extensive subcutaneous emphysema, no pneumothorax, and patchy bilateral lung infiltrates remain present. INflammatory markers trending down. 10/04/2021 Patient is seen in follow-up continues to be closely monitored in the ICU. Patient remains on mechanical vent with an FI02 of 65% and peep is 18. Weaning trials being attempted with pulmonary autocad detailer following closely. Patient continues with extensive subq emphysema noted on exam. 10/05/2021 Patient Is seen and evaluated this morning with continued attempts at weaning and continues on mechanical vent and intubated with pulmonary autocad detailer following closely. Patient remains on Eliquis which will be held as surgery Dr. Nelson was consulted for possible PEG and trach tube placement for unsuccessful attempts at weaning from ventilation and prolonged hospitalization on mechanical vent. Chest x-ray today shows recurrent tiny left apical pneumothorax estimated under 5% with worsening overlying subcutaneous emphysema and again pneumomediastinum redemonstrated with multifocal confluent opacification's redemonstrated consistent with COVID-19 infection and/or arts are redemonstrated with no significant change from one day previously. Patient continues on FiO2 of 65% and PEEP was weaned down to 14 today. IV cefepime discontinued. 10/06/2021 Patient is seen in follow-up this morning per nursing staff patient had multiple runs of ectopy an irregular heart rate and rhythms with PVCs and cardiology consulted. Patient was placed on lidocaine drip and was originally on eliquis is currently on hold for possible PEG and trach placement with general surgery following. Patient had difficulty maintaining oxygen saturations and FiO2 was increased to 100% and PEEP continues at 14. Multiple medical consultations following and patient continues on oral steroids along with vitamin and zinc supplements along with fluconazole. Patient being started on IV Lasix daily and recommend close monitoring of electrolytes and kidney functions. 10/07/2021 Patient is seen in follow-up this morning continues to be monitored closely in the ICU with multiple medical consultations following. Patient is currently on mechanical vent with an FiO2 of 80% and PEEP is 16. General surgery also following for possible PEG and trach placement and will need to discuss with surgery about when this will occur. Patient remains on fluconazole. She also continues on vitamin and zinc supplements along with oral dexamethasone, clevidipine, Nimbex, IV Lasix, fentanyl and propofol and is off norepinephrine. Chest x-ray shows stable bilateral lung infiltrates. 10/08/2021 Patient is seen this morning continues to be on mechanical vent with an FiO2 of 85% and PEEP of 16. Patient continues with extensive subcutaneous emphysema and plans are for possible PEG and trach placement although on hold until possibly next week once more stable. Patient continues on Cleviprex along with fentanyl and propofol and is receiving IV Lasix daily. Patient also continues on lidocaine drip which is currently on hold and cardiology is following closely. Anticoagulant was resumed for now again until more stable to undergo PEG and trach placement. Chest x-ray today shows persistent bilateral multifocal and confluent increased opacification is with persistent overlying subcutaneous emphysema noted in pneumomediastinum is again redemonstrated. 10/09/2021 Patient evaluated today in ICU mechanical ventilation with FiO2 of 80%. Chest x-ray this morning shows similar multifocal airspace opacities and stable support lines and tubes. Similar subcutaneous emphysema scattered throughout the visualized thorax. PEG and trach plan for next week once more stable. Current meds include Cleviprex, Nimbex, fentanyl, propofol. She is receiving IV fluconazole, as well as IV Lasix. Levophed and Lidocaine gtt;s are on hold. Positive bowel sounds. Current vitals afebrile, heart rate 71, blood pressure 135/60 and oxygen saturation is 93%. Respirations 30. Labs today, white count 17, hemoglobin 11.6, sodium 139, potassium 3.8, BUN 34, creatinine 0.91, CO2 33, calcium 8.7, ALT 54, albumin 2.8 with blood sugars in the 100s. 10/10/2021 Patient evaluated today in the ICU on the mechanical VENT with fio2 of 100%. Positive bowel movement today, Stage 2 pressure ulcer on coccyx per RN, optifoam ordered. Per RN they were unable to patient as she was desaturating. They're unable to wean Fi02 currently as she does desaturate with any time of movement. She was lying more on her right side during evaluation and pulse ox was dropping into high 80s she was being repositioned by nurses. Plan is to PEG/TRACH patient tomorrow. Last family update was 4 days ago. We will call and discuss case today. Patient is afebrile, heart rate 84, respirations 30, blood pressure 141/55, 92% oxygen saturation on 100% Fi02, which was increased today up from 70 Fi02%. Labs today show WBC of 15.6, hgbl 10.7, sodium 138, potassium 3.9, chloride 100, CO2 37, glucose 117, calcium 8.2. Chest xray today shows pneumonia, ARDS. 10/11/2021 Patient is seen and evaluated in follow-up this morning continues to be closely monitored in the ICU and patient is continued on FiO2 of 90% and PEEP is 16 with multiple medical consultations following. Chest x-ray today shows new left- sided pneumothorax estimated 10-20% with overlying subcutaneous emphysema and pneumomediastinum redemonstrated with bilateral multifocal and confluent op acification's redemonstrated consistent with COVID-19 infection and/or arts and no significant change from one day previous. Patient is status post left chest tube insertion with pulmonary autocad detailer. Cardiology following and patient is off lidocaine drip and maintaining sinus rhythm. Patient also continues on vitamin and zinc supplements along with oral dexamethasone and patient continues on IV Lasix 40 mg daily. Patient also continues off norepinephrine and is currently maintained on IV cefepime along with fluconazole. General surgery following as well and plan is for peg and trach placement in the am 10/12/2021 Patient is seen in the ICU this morning continues to be closely monitored by multiple medical consultations. Patient was scheduled for PEG and trach placement with general surgery Dr. Nelson today although canceled as patient became hypotensive requiring Levophed along with acute blood loss anemia and hemoglobin dropped to 6.5 this morning requiring 1 unit of PRBC. Patient continues with left chest tube with pneumothorax and chest x-ray today shows the jahaira is difficult to clearly identify on the present exam and the ET tube may be approximately 1 cm from the jahaira and there are bilateral chest tubes present with continued diffuse interstitial opacification is and more focal bibasilar opacification is with subcutaneous emphysema persists along the upper chest with slight improvement on the left. No appreciable pneumothorax noted. Patient having worsening right pleural effusion last night and received a right- sided chest tube with pulmonary autocad detailer. FiO2 is 90% and PEEP of 16. Again overall prognosis remains extremely poor and guarded. 10/13/2021 Patient is seen in follow-up this morning in the ICU with multiple medical consultations following. Lengthy discussion was had with pulmonary autocad detailer and family members and would like to continue with full CODE STATUS and plan is in place for PEG tube and tracheostomy placement tomorrow. Anticoagulant on hold and Dr. Nelson plans for surgery tomorrow. Patient continues on oral dexamethasone along with IV cefepime, vitamin and zinc supplements. Patient also continues on Cleviprex and Nimbex. Patient also continues on fentanyl and propofol and will continue. Chest x-ray today shows stable portable chest with bilateral chest tubes without sizable pneumothorax identified and continued subcutaneous air persists with persistent interstitial changes bilaterally with airspace disease in the bilateral lung bases that are unchanged. FiO2 is 60% and PEEP of 16. 10/14/2021 Patient is seen and evaluated in the ICU being closely monitored with multiple medical consultations following. at the bedside today and had detailed discussion with overall prognosis. Plan is to proceed with PEG tube and tracheostomy placement with surgery Dr. Nelson today and anticoagulant continues to be on hold for this procedure. Patient continues on mechanical ventilation with an FiO2 of 70% and PEEP of 16. Chest x-ray today shows improving infiltrate with bibasilar residual and bilateral chest tubes remain present with no pneumothorax evident on either side and again subcutaneous emphysema is noted. 10/15/2021 Patient is seen in the ICU being closely monitored. Patient is status post PEG and trach placement yesterday. Chest x-ray today shows bilateral patchy lung infiltrates greater at the right base with diffuse increased lung markings and bilateral chest tubes remain present and subcutaneous emphysema on the right is diminished. Patient continues with an FI02 of 60 and peep is 16. To resume tube feeds per surgery. Patient continues on norepinephrine and sedation. Patient is receiving IV lasix daily. 10/16/2021 Patient is currently in the MICU and remains on ventilator. Status post tracheostomy and PEG tube placement on 10/14/2021. Patient is sedated and paralyzed. Also on Cleviprex. Chest x-ray showed no acute cardiopulmonary disease with no interval changes. Laboratory data showed WBC 16.9 hemoglobin 8.9 and platelets 278 BUN 19 and creatinine 0.5 and calcium 8.1 patient is being continued on dexamethasone 6 mg daily, Lasix 40 mg IV daily and multivitamins and anticoagulation with Eliquis. Pulmonary and general surgery is on board. 10/17/2021 Patient is in the MICU. Remains on the current ventilator via tracheostomy. Status post tracheostomy and PEG tube placement on 10/14/2021. Sedated and paralyzed and also on fentanyl drip. Currently on assist control with tidal volume of 420, FiO2 80% and PEEP of 16. Respiratory of 30. Chest x-ray showed no interval change in acute cardiopulmonary disease Laboratory data showed WBC 15.8 hemoglobin 8.2 and platelets 271 Sodium 136 potassium 3.1 chloride 100 bicarb is 32 BUN 21 creatinine 0.48 and albumin 2.3 Patient is being continued on Lasix IV, dexamethasone and anticoagulation with Eliquis. 10/18/2021 Patient is seen in follow-up and continues in the ICU with multiple medical consultations following. Patient continues on mechanical vent with an FI02 of 70% and peep is 16. Chest xray shows overall stable exam with interstitial changes and bilateral patchy infiltrates with right greater than left and greater at the bases with bilateral chest tubes noted. no appreciable pneumothorax. Patient continues on propofol and fentanyl along with cleviprex and rocuronium. Eliquis has been resumed. Potassium is 3.3 and will be replaced per protocol. Patient also continues to receive IV lasix daily. 10/19/2021 Patient is seen this morning and continues to be in the ICU with multiple medical consultations following. Patient continues with bilateral chest tubes and remains on mechanical ventilation with an FiO2 of 65% and PEEP is 16. Chest x-ray today shows Bilateral multifocal and confluent opacification greatest in the lower lungs consistent with COVID-19 infection and/or ARDS all redemon strated with no significant change from one day earlier and continued bilateral chest tubes without pneumothorax redemonstrated. 10/20/2021 Patient continues to be in the ICU under close critical monitoring with multiple medical consultations following. Patient continues with bilateral chest tubes although per nursing staff may possibly discontinued today. Chest x-ray today shows stable portable chest with no change in scattered mixed interstitial and alveolar infiltrates. Patient remains on mechanical ventilation via tracheostomy with an FiO2 of 55% and PEEP is 15. Patient continues on Cleviprex along with rocuronium and sedation. 10/21/2021 Patient continues in the MICU being closely monitored. Chest tubes were removed today and chest xray stable with interstitial changes and basilar ground glass, that is similar to previous with slight improvement. Patient continues on mechanical vent with an FI02 of 70% and peep is 14. Patient remains sedated and per nursing staff working on weaning paralytics. Patient continued on rocuronium. Patient is tolerating tube feeds and also continues on IV lasix daily with generalized edema noted throughout. 10/22/2021 Patient is currently MICU. Patient was taken off paralytic and chest tubes yesterday. Continued on pressure support with PEEP of 13. 88 this morning patient again desaturated. Patient became hypotensive and patient was started on norepinephrine. Chest x-ray showed large pneumothorax on the right. Right chest tube was reinserted. Patient is on pressure control. Remains sedated and mechanically ventilated. Laboratory data showed WBC 13.7 hemoglobin 7.7 and platelets 314 Sodium 140 potassium 3.0 chloride 102 bicarb is 37 BUN 19 and creatinine 0.44 and calcium 8.1 Patient is being continued dexamethasone multivitamins and anticoagulation with Eliquis. Patient is also on IV Lasix. Potassium will be replaced. 10/23/2021 Patient is currently MICU. Patient is on mechanical ventilator via trach tube. Patient developed right-sided tension pneumothorax. Again patient had issues with pneumothorax around 10 PM yesterday. Chest tube has to be replaced. Patient is also requiring pressor support. Off pressors this morning. On pressure support. PEEP of 13 and FiO2 100%. Laboratory data showed WBC 13.7 hemoglobin 7.7 and platelets 314 Sodium 140 potassium 3.0 chloride 102 bicarb is 37 BUN 19 and creatinine 0.44 and calcium 8.1 cultures have been negative. Patient is being current on dexamethasone, Eliquis and also IV Lasix 40 mg daily. 10/24/2021 Patient is currently in the MICU. Currently on mechanical ventilator via tracheal tube. Continue propofol and fentanyl. Remains pressure support with PEEP of 13 FiO2 reduced to 70%. Chest x-ray showed bilateral multifocal and confluent opacities consistent with COVID-19 infection and ARDS are redemonstrated and stable. Right-sided chest tube with small apical pneumothorax estimated 10 to 15% improved from 1 day earlier. Pneumo mediastinum noted. Laboratory data showed WBC 14.2 hemoglobin 7.1 and platelets 317 Sodium 140 potassium 3.2 chloride 104 bicarb is 38 BUN 20 and creatinine 0.46 and calcium 7.8. Patient is being continued on dexamethasone, Eliquis and also on IV Lasix. Currently on multivitamins. 10/25/2021 Patient is seen this morning continues to be in the ICU with close monitoring. Patient continues on mechanical vent via tracheostomy and FiO2 of 65% with a PEEP of 13. Chest x-ray this morning shows right-sided chest tube in place with continued small to moderate right sided pneumothorax slightly smaller in the interval, apical component measuring 2.3 cm versus 2.8 cm previously along with interstitial opacities persist in pneumonitis versus mild pulmonary edema, status post right side thoravent place this morning with pulmonary autocad detailer showing resolution of the apical and lateral components of the pneumothorax and 5 mm basilar components remain. Patient requiring more oxygen supplementation and FiO2 being increased to 75%. Hemoglobin found to be 6.3 and awaiting to receive a unit of PRBC. Patient also continues on Nimbex along with Cleviprex, oral dexamethasone, vitamin and zinc supplements along with oral eliquis, along with fentanyl and propofol for sedation. 10/26/2021 Patient is seen in follow-up today continues on mechanical ventilation with an FiO2 of 75% which is currently titrating down to 65% per nursing staff with an FiO2 of 13. Patient continues on Cleviprex and Nimbex and attempts at weaning although not tolerating well. Patient also continues on fentanyl and propofol for sedation. Chest x-ray today shows a right-sided thoracic vent and chest to both present and overlying appropriate positions with minimal right-sided apical pneumothorax present and persistent bilateral interstitial groundglass opacities noted with no evident pleural effusion to correlate for pneumonia. Hemoglobin improved to 8.7 today after 1 unit of PRBC. Will continue to monitor closely. 10/27/2021 Patient is seen today continues to be closely monitored in the ICU on mechanical vent via tracheostomy with an FiO2 of 70% and PEEP is 13. Patient continues on IV Lasix daily along with propofol and fentanyl for sedation. Patient also continues to be on Cleviprex as blood pressure is elevated. Per nursing staff attempts at weaning some sedation although patient not tolerating well. Patient continues with chest tubes on the right and there is an air leak noted and also continues with thoravent on the right. Chest x-ray today shows enlarging right- sided pneumothorax estimated at 15% with no significant change in interstitial infiltrate seen bilaterally. Review of systems: Unable to obtain as patient is mechanically intubated and sedated Labs: WBC is 9.1, hemoglobin is 9.2, platelets are 320, sodium is 137, potassium is 3.3, BUN is 20, creatinine is 0.35, calcium is 8.3 Active Medications Apixaban (Apixaban 5 Mg Tab) 5 mg PO BID [facility]; Protocol Last Admin: 10/27/21 09:26 Dose: 5 mg Documented by: Artificial Tears (Artificial Tears-Hypromellose Drops 15 Ml Btl) 2 drops BOTH EYES QID [facility] Last Admin: 10/27/21 14:38 Dose: 2 drops Documented by: Ascorbic Acid (Ascorbic Acid 500 Mg Tab) 500 mg PO BID [facility] Last Admin: 10/27/21 09:26 Dose: 500 mg Documented by: Dexamethasone (Dexamethasone 2 Mg Tab) 4 mg PO DAILY [facility] Last Admin: 10/27/21 09:26 Dose: 4 mg Documented by: Docusate Sodium (Docusate Oral Soln 100 Mg/10 Ml Cup) 100 mg PO DAILY PRN PRN Reason: Constipation Last Admin: 10/18/21 15:53 Dose: 100 mg Documented by: Ergocalciferol (Ergocalciferol 1,250 Mcg (50,000 Iu) Capsule) 1,250 mcg PO MORRIS [facility] Last Admin: 10/24/21 09:11 Dose: Not Given Documented by: Furosemide (Furosemide 10 Mg/Ml 4 Ml Vial) 40 mg IV DAILY [facility] Last Admin: 10/27/21 09:26 Dose: 40 mg Documented by: Propofol 1,000 mg/ IV Solution 100 mls @ 0 mls/hr IV .Q0M [facility]; Protocol Last Admin: 10/27/21 13:21 Dose: 55 mcg/kg/min, 30.36 mls/hr Documented by: Sodium Chloride (Saline 0.9%) 1,000 mls @ 20 mls/hr IV .Q24H [facility] Last Admin: 10/27/21 00:14 Dose: 20 mls/hr Documented by: Fentanyl Citrate 2,500 mcg/ (Sodium Chloride) 250 mls @ 4.6 mls/hr IV .Q24H [facility]; Protocol Last Titration: 10/27/21 03:29 Dose: 2 mcg/kg/hr, 18.4 mls/hr Documented by: Clevidipine 25 mg/ IV Solution 50 mls @ 2 mls/hr IV .Q24H [facility]; Protocol Last Titration: 10/27/21 14:40 Dose: 6 mg/hr, 12 mls/hr Documented by: Norepinephrine Bitartrate 8 mg (/ Sodium Chloride) 258 mls @ 9.143 mls/hr IV .Q24H [facility]; Protocol Last Admin: 10/27/21 13:29 Dose: Not Given Documented by: Cisatracurium Besylate 200 mg/ (Sodium Chloride) 200 mls @ 5.424 mls/hr IV .Q24H [facility]; Protocol Last Admin: 10/27/21 13:29 Dose: Not Given Documented by: Insulin Aspart (Insulin Aspart (Novolog) 100 Unit/Ml Vial) 0 unit SQ Q6HR [facility]; Protocol Last Admin: 10/27/21 14:37 Dose: 2 unit Documented by: Miscellaneous Information (Pneumonia Protocol Utilized 1 Each Misc) 1 each PO ONCE PRN PRN Reason: Per Protocol Miscellaneous Information (Potassium Replacement Protocol 1 Each Misc) 1 each MISCELLANE DAILY PRN; Protocol PRN Reason: Per Protocol Naloxone HCl (Naloxone 0.4 Mg/Ml 1 Ml Vial) 0.2 mg IV Q2M PRN PRN Reason: Opioid Reversal Pantoprazole Sodium (Pantoprazole 40 Mg/10 Ml Vial) 40 mg IV DAILY [facility] Last Admin: 10/27/21 09:27 Dose: 40 mg Documented by: Quetiapine Fumarate (Quetiapine 25 Mg Tab) 25 mg PO BID [facility] Last Admin: 10/27/21 09:27 Dose: 25 mg Documented by: Zinc Sulfate (Zinc Sulfate 220 Mg Cap) 220 mg PO DAILY [facility] Last Admin: 10/27/21 09:26 Dose: 220 mg Documented by: Physical Exam: Gen: This is a 61-year-old female currently sedated and intubated. mechanical ventilation Fio2 increased today to 70% with a PEEP of 13 HEENT: Head is atraumatic, normocephalic. Pupils equal, round. Sclerae is anicte alejandra. tracheostomy noted NECK: Supple. No JVD. No lymphadenopathy. No thyromegaly. tracheostomy noted LUNGS: Diminished breath sounds bilaterally with coarse rhonchi and crackles noted. No intercostal retractions. Right side chest tube and thoravent noted HEART: S1, S2 are muffled ABDOMEN: Soft. Bowel sounds are present. No masses. No tenderness. peg tube noted. EXTREMITIES: No pedal edema. No calf tenderness. generalized edema noted NEUROLOGICAL: Patient is currently intubated and sedated Assessment: Acute COVID-19 infection with acute COVID-19 bilateral interstitial pneumonia with hypoxic hypercarbic respiratory failure on mechanical vent status post trach and peg tube placement on 10/14/2021 Subcutaneous emphysema of the neck and chest, improving bilateral pneumothoraces with chest tube placement and is status post removal of chest tubes 2.3.2021 Status post reinsertion of chest tubes on 10/22/2021 due to a tension pneumothorax on the right, status post thoraVent placement as well on the right on 10/25/2021, worsening pneumothorax on the right with continued air leak of the chest tube but not thoravent Acute blood loss anemia secondary to bilateral chest tube placements, possible hypovolemic shock requiring pressor support, currently hypertensive and off pressors, continues on cleviprex Non-sustained ventricular tachycardia, currently sinus Acute left leg deep vein thrombosis Acute respiratory acidosis Primary hypercoagulable state and factor V deficiency Mild transaminitis, possibly secondary to COVID-19 History of degenerative joint disease History of fibromyalgia Elevated inflammatory markers of COVID-19 Obesity with a body mass index of 38.1 Full code Plan: Recommend to continue with current medications and follow along closely with multiple medical consultations. Prognosis remains extremely poor and guarded with multiple complex medical issues noted. Patient continues on mechanical ventilation via tracheostomy and FiO2 70% with PEEP of 13. Recommend to continue with current medications. Patient continues with right side chest tube with an air leak and chest x-ray today shows increase in pneumothorax of approximately 15% on the right and Also continues with thoravent. Patient continues on cleviprex and attempting to wean sedation. Patient currently off Nimbex since yesterday. Recommend repeat labs and continued close monitoring. Again due to multiple complex medical issues overall prognosis is extremely poor and quite guarded. Objective - Vital Signs Vital signs: Vital Signs Temp 98.2 F 10/27/21 04:00 Pulse 92 10/27/21 06:00 Resp 28 H 10/27/21 06:00 BP 141/55 10/26/21 18:30 Pulse Ox 89 L 10/27/21 06:00 Intake & Output 10/26/21 10/27/21 10/27/21 18:59 06:59 18:59 Intake Total 5007.918 0104.337 Output Total 3715 670 Balance -2542.145 630.337 Weight 92 kg 93 kg Intake: IV 299 276 0.9 NS 260 240 pressure bag 39 36 Intake, IV Titration 653.855 754.337 Amount Cisatracurium 200 mg In 38.917 Sodium Chloride 0.9% 180 ml @ 1 MCG/KG/MIN 5.424 mls/hr IV .Q24H [facility] Rx#: [id number] Clevidipine Butyrate 25 93.733 136.433 mg In Empty Bag 1 bag @ 1 MG/HR 2 mls/hr IV .Q24H [facility] Rx#:[id number] Norepinephrine 8 mg In 0.305 Sodium Chloride 0.9% 250 ml @ 0.05 MCG/KG/MIN 9. 143 mls/hr IV .Q24H [facility] Rx#:[id number] fentaNYL (PF) 2,500 mcg 247.02 257.82 In Sodium Chloride 0.9% 200 ml @ 0.5 MCG/KG/HR 4. 6 mls/hr IV .Q24H [facility] Rx# :[id number] propofoL 1,000 mg In 273.88 360.084 Empty Bag 1 bag @ Titrate IV .Q0M AB[facility] Rx#: [id number] Tube Feeding 130 120 Other 90 150 Output: Chest Tube Drainage 20 10 Chest Tube Right 15 Thora-Vent Right Upper 5 10 Anterior Chest Urine 3695 660 Other: Voiding Method Indwelling Catheter Indwelling Catheter ABP, PAP, CO, CI - Last Documented Arterial Blood Pressure 155/53 - Labs CBC & Chem 7: 10/27/21 04:05 10/27/21 04:05 Labs: Abnormal Lab Results - Last 24 Hours (Table) 10/26/21 10/26/21 10/26/21 Range/Units 11:23 11:48 18:04 RBC (3.80-5.40) m/uL Hgb (11.4-16.0) gm/dL Hct (34.0-46.0) % RDW (11.5-15.5) % ABG pH (7.35-7.45) ABG pCO2 (35-45) mmHg ABG pO2 (83-108) mmHg ABG HCO3 (21-25) mmol/L ABG Total CO2 (19-24) mmol/L ABG O2 Saturation (94-97) % Potassium 3.4 L (3.5-5.1) mmol/L Carbon Dioxide (22-30) mmol/L BUN (7-17) mg/dL Creatinine (0.52-1.04) mg/dL POC Glucose (mg/dL) 112 H 128 H (75-99) mg/dL Calcium (8.4-10.2) mg/dL 10/27/21 10/27/21 10/27/21 Range/Units 04:05 04:05 05:26 RBC 3.20 L (3.80-5.40) m/uL Hgb 9.2 L (11.4-16.0) gm/dL Hct 29.2 L (34.0-46.0) % RDW 16.4 H (11.5-15.5) % ABG pH 7.51 H (7.35-7.45) ABG pCO2 46 H (35-45) mmHg ABG pO2 53 L* (83-108) mmHg ABG HCO3 36 H (21-25) mmol/L ABG Total CO2 38 H (19-24) mmol/L ABG O2 Saturation 89.1 L (94-97) % Potassium 3.3 L (3.5-5.1) mmol/L Carbon Dioxide 34 H (22-30) mmol/L BUN 20 H (7-17) mg/dL Creatinine 0.35 L (0.52-1.04) mg/dL POC Glucose (mg/dL) (75-99) mg/dL Calcium 8.3 L (8.4-10.2) mg/dL
[2021-10-27 19:18] LABS: Glucose,Whole Blood 131 mg/dL (75-99)
[2021-10-28 00:02] LABS: Glucose,Whole Blood 96 mg/dL (75-99)
[2021-10-28] MEDS: INSULIN ASPART (NovoLOG) 100 UNIT/ML VIAL SQ SCH ×4 (00:15→18:10)
[2021-10-28 04:31] LABS: Anisocytosis Slight; Basophils % (A) 0 %; Eosinophils # (A) 0.2 k/uL (0-0.7); Eosinophils % (A) 2 %; HCT 29.2 % (34.0-46.0); HGB 9.1 gm/dL (11.4-16.0); Hypochromasia Marked; Lymphocytes # (A) 1.9 k/uL (1.0-4.8); Lymphocytes % (A) 22 %; MCH 28.4 pg (25.0-35.0); MCHC 31.1 g/dL (31.0-37.0); MCV 91.3 fL (80.0-100.0); Mean Platelet Volume 8.1; Monocytes # (A) 0.5 k/uL (0-1.0); Monocytes % (A) 5 %; Neutrophils % (A) 70 %; Platelet Count 331 k/uL (150-450); Poikilocytosis Moderate; RDW 16.4 % (11.5-15.5); WBC 8.6 k/uL (3.8-10.6)
[2021-10-28 04:43] LABS: African American GFR (CKD) >90 (>60 ml/min/1.73 sqM); Anion Gap 2 mmol/L; Blood Urea Nitrogen 20 mg/dL (7-17); Carbon Dioxide 34 mmol/L (22-30); Chloride 102 mmol/L (98-107); Glucose 75 mg/dL (74-99); Non-African American GFR(CKD) >90 (>60 ml/min/1.73 sqM); Sodium 138 mmol/L (137-145)
[2021-10-28] MEDS: SODIUM CHLORIDE 0.9% 1,000 ML IV SCH (04:53)
[2021-10-28] MEDS: CLEVIDIPINE BUTYRATE 25 MG in EMPTY BAG 1 BAG IV SCH ×3 (05:18→13:27)
[2021-10-28] MEDS: POTASSIUM BICARBONATE/CIT AC 20 MEQ TABLET.EFF NG-TUBE SCH ×4 (05:34→09:32)
--- NOTE | 2021-10-28 08:01 | XR ---
EXAMINATION TYPE: XR chest 1V portable DATE OF EXAM: 10/28/2021 Comparison: 10/27/2021 Clinical History: 61-year-old female SOB Findings: Tracheostomy cannula. ACDF hardware. Right-sided chest tube. Additional right-sided Thoravent cathete r. Right PICC tip at the cavoatrial junction. Diffuse interstitial opacities persist. Redemonstrated small right-sided pneumothorax. Apical component slightly larger at 1.9 cm versus 1.5 cm, previously. The lateral upper lobe component measures 7 mm versus 5 mm, previously. Impression: 1. Continued diffuse interstitial infiltrates. 2. Right-sided chest tube and right-sided Thoravent catheter in place. There is continued small right -sided pneumothorax, slightly larger in the interval, apical component measuring 1.9 cm versus 1.5.
[2021-10-28] MEDS: dexAMETHasone 2 MG TAB PO SCH (08:49)
[2021-10-28] MEDS: QUEtiapine 25 MG TAB PO SCH ×2 (08:51→20:03)
[2021-10-28] MEDS: ASCORBIC ACID 500 MG TAB PO SCH ×2 (08:51→20:02)
[2021-10-28] MEDS: ZINC SULFATE 220 MG CAP PO SCH (08:51)
[2021-10-28] MEDS: APIXABAN 5 MG TAB PO SCH ×2 (08:51→20:02)
[2021-10-28] MEDS: PANTOPRAZOLE 40 MG/10 ML VIAL IV SCH (08:51)
[2021-10-28] MEDS: ARTIFICIAL TEARS-HYPROMELLOSE DROPS 15 ML BTL BOTH EYES SCH ×4 (09:20→23:34)
[2021-10-28 10:05] LABS: ABG Base Excess 11.3 mmol/L; ABG HCO3 34 mmol/L (21-25); ABG Oxygen Saturation 95.1 % (94-97); ABG PCO2 43 mmHg (35-45); ABG PH 7.51 (7.35-7.45); ABG PO2 72 mmHg (83-108); ABG TCO2 36 mmol/L (19-24)
[2021-10-28 10:07] LABS: Allen Test Performed? no
[2021-10-28] MEDS: CISATRACURIUM 200 MG in SODIUM CHLORIDE 0.9% 180 ML IV SCH (11:22)
[2021-10-28 11:29] LABS: Glucose,Whole Blood 161 mg/dL (75-99)
[2021-10-28] MEDS: FUROSEMIDE 10 MG/ML 4 ML VIAL IV SCH (11:38)
--- NOTE | 2021-10-28 11:53 | P.PN ---
Subjective Progress Note Date: 10/28/21 Principal diagnosis: Acute hypoxic respiratory failure secondary to COVID-19 pneumonia 10/24/2021, the patient remains on a mechanical ventilator. This morning, she is sedated with a combination of propofol and fentanyl. Propofol is running at 45 mcg/kg per minute and the fentanyl is running at 1.5 mcg/kg/h. I have taken this patient off paralytics. Meanwhile, switch this patient a pressure control mode of mechanical ventilation at the rate of 26, pressure control of 22, FiO2 of 70% with a PEEP of 13. The chest x-ray from today showing a small right apical pneumothorax. Chest tube is in a good location. There are still persistent air leak and the chest tube. Tracheostomy tube is high in the trachea. Nevertheless, there is no air leaks. The patient continues to have diffuse bilateral pulmonary infiltrates more so in the right lower lobe. The blood gases from today shows a pH of 7.50 with a pCO2 of 47 and pO2 of 96 and this was on FiO2 of 70%. Otherwise, the patient remains hemodynamically stable. She remains on anticoagulation and the patient remains on Eliquis 5 mg by mouth twice a day.. The patient is also on Decadron as well as a 4 mg by mouth daily no other new complaints otherwise for now. The patient is receiving enteral feeding for nutritional support via PEG tube. She is currently on vital high protein at the rate of 10 mL an hour. The blood work from today shows a white cell count 14.2 with hemoglobin of 7.1 and a platelet count of 317. Sodium is at 140 with potassium level of 3.4 which is going to be replaced. BUN is at 20 with a creatinine of 0.4. Blood sugar is at 103. No other significant events overnight. No synovitis fluid overload. Overall fluid balance over the past 24 hours has been -1083 cc. Reevaluated today on 10/25/2021, patient remains in the ICU, intubated, mechanically ventilated. Patient is presently on pressure control mode of mechanical ventilation, pressure control of 18, TI of 0.9 FiO2 60% PEEP of 15. ABG showed a pO2 of 100 pCO2 of 58 pH of 7.41, however during my evaluation the patient was noted to desaturate and her chest x-ray was showing worsening right- sided pneumothorax, hence went ahead and placed a 13-Romansh thoravent in the right upper chest area at the level of the midclavicular line and third intercostal space. Follow-up chest x-ray showed complete reexpansion of the right lung, To the old chest tube in place, and connected both to pleural vacs. Patient is on fentanyl at 2.5 mcg/kg/h, is also on propofol at 50 and considering the patient was noted to have increased work of breathing and she was desaturating I recommended we place her back on Nimbex. Patient is rece iving vital Hb at 10 mL per hour. She is not requiring any pressors. Her peak airway pressure is 36 plateau pressure is 34. Her pressure control was increased from 18-22, and a PEEP was cut down to 13. Instructed the nurses to titrate FiO2 down while the patient is on Nimbex. Patient is noted to be awake, opens eyes, but does not follow any instructions. Hemoglobin today is 6.3, patient will receive at least a unit of packed RBCs. WBC count is 9.1. Electrolytes and renal profile are normal except for low potassium of 3.4. Chest x-ray post chest tube placement showed interval resolution of the apical and lateral pneumothorax. Reevaluated today on 10/26/2021, patient remains in the ICU, remains intubated mechanically ventilated, sedated and paralyzed. She is on pressure control mode of mechanical ventilation with a pressure control of 22 inspiratory time of 0.10 seconds. FiO2 60% PEEP of 13. ABG on 75% earlier showed a pO2 of 182 pCO2 of 53 pH of 7.44. Patient remains on multiple drips including Nimbex at 1.5 pg/kg/m, propofol at 50 mcg/kg/m, fentanyl 2 mcg/kg/h. IV fluid at 20 mL per hour. Peak airway pressure is 36 plateau pressure is 25. Patient remains on vital hpf at 10 mL per hour. Today I cut down the FiO2 to 50%. Chest x-ray showed excellent expansion of the right lung, right-sided chest tube and right sided thoravent are in the proper position, no evidence of air leak and the pleural VAC. And the right lung seems to be almost completely reexpanded. Very small tiny apical pneumothorax is noted. Today I'm planning to hold the Nimbex and hopefully maintain the patient on propofol and sentinel if possible. And I have no plans to remove any of the chest tubes at present. Chest x-ray continues show bilateral infiltrates consistent with COVID-19 pneumonia, nonetheless overall the chest x-ray is showing improvement. WBC count is 13.1 hemoglobin 8.7. A left was are normal renal profile is normal bicarb is 35 Reevaluated today on 10/27/2021, patient remains in the ICU, intubated and mechanically ventilated. She is on assist control rate of 26, pressure control 22, TI of 0.90 PEEP of 13 FiO2 70%. Continues to have a relatively elevated plateau pressure of 36 consistent with ARDS. Continues to have abnormal chest x-ray showing bilateral airspace disease, and a small right apical right-sided pneumothorax. Continues to have air leak in the right-sided chest tube, but none in the THORAVENT pleural VAC. ABG showed a pO2 of 53 pCO2 46 pH of 7.50 hence the FiO2 was increased from 65% to 70%. CBC is relatively normal WBC count is 9.1 hemoglobin is 9.2. Basic metabolic profile is normal, potassium is low being corrected. Patient remains on multiple drips including fentanyl 2 mcg/kg/h, propofol at 55 mcg/kg/m, she is on clevidipine 12 mg per hour, patient is off Nimbex since yesterday. IV fluids at KVO. Reevaluated today on 10/28/21, patient remains in the ICU, remains intubated and mechanically ventilated. She is on pressure control mode of mechanical ventilation, pressure control is set at 22, rate is 26, inspiratory time is 0.9, remains on FiO2 of 85% and PEEP of 13. Patient is sedated but not paralyzed, she is now on fentanyl at 1.5 and I increased the dose to 2 mcg/kg/m. I have also increased her propofol from 50-75. Patient remains on clevidipine to my milligrams per hour and she remains on enteral feeding using vital Hb at 10 mL per hour. CBC is relatively unremarkable hemoglobin is 9.1 electrolytes are nor mal except for low potassium of 3.0. Profile is normal. Chest x-ray continues to show bilateral airspace disease, and a small tiny right apical right-sided pneumothorax in spite of having a chest tube and a thoravent in place. Not much of a change noted in the last 24 hours, patient is basically about the same but seems to be a bit more agitated and restless as her sedation was increased. Objective - Vital Signs Vital signs: Vital Signs Temp 99.8 F H 10/28/21 08:00 Pulse 90 10/28/21 11:00 Resp 26 H 10/28/21 11:00 BP 120/62 10/28/21 07:00 Pulse Ox 97 10/28/21 11:00 Intake & Output 10/27/21 10/28/21 10/28/21 18:59 06:59 18:59 Intake Total 1263.661 802.315 406.604 Output Total 2410 685 830 Balance -1146.339 117.315 -423.396 Intake: IV 253 276 115 0.9 NS 220 240 100 pressure bag 33 36 15 Intake, IV Titration 810.661 376.315 211.604 Amount Clevidipine Butyrate 25 134.333 0.666 67.600 mg In Empty Bag 1 bag @ 1 MG/HR 2 mls/hr IV .Q24H [facility] Rx#:[id number] Norepinephrine 8 mg In 95.692 1.219 Sodium Chloride 0.9% 250 ml @ 0.05 MCG/KG/MIN 9. 143 mls/hr IV .Q24H [facility] Rx#:[id number] fentaNYL (PF) 2,500 mcg 242.18 117.989 42.32 In Sodium Chloride 0.9% 200 ml @ 0.5 MCG/KG/HR 4. 6 mls/hr IV .Q24H [facility] Rx# :[id number] propofoL 1,000 mg In 338.456 257.66 100.465 Empty Bag 1 bag @ Titrate IV .Q0M [facility] Rx#: [id number] Tube Feeding 110 120 50 Other 90 30 30 Output: Urine 2410 685 830 Other: Voiding Method Indwelling Catheter Indwelling Catheter ABP, PAP, CO, CI - Last Documented Arterial Blood Pressure 101/54 - Exam Physical Exam: Revealed a 61-year-old female in no distress. Intubated, sedated, seems to be a bit restless today Head: Atraumatic, normocephalic PEG tube is intact. Tracheostomy is intact. Tracheostomy site is to be addressed by general surgery on the case. HEENT:[Neck is supple.] [No neck masses.] [No thyromegaly.] [No JVD.] Chest: [Symmetrical chest expansion crackles and rhonchi at the bases. Right- sided chest tube and the right sided thoravent noted. Air leak noted in the Pleur-evac of the right-sided chest tube but none in the right sided thoravent Cardiac Exam: [Distant S1 and S2, no S3 gallop. No murmur. Abdomen: [Soft, nontender, no megaly, no rebound, no guarding, normal bowel sounds.] Extremities: [No clubbing, trace of bipedal edema, no cyanosis.] Good pulses bilaterally. Neurological Exam: Sedated, could not assess. Patient does not respond to any stimuli. Psychiatric: Cannot assess patient is as noted above not responding to any s timuli. Skin: No rashes. However there is significant widening of the surgical incision around the tracheostomy site. - Labs CBC & Chem 7: 10/28/21 04:10 10/28/21 10:52 Labs: Abnormal Lab Results - Last 24 Hours (Table) 10/27/21 10/27/21 10/28/21 Range/Units 14:16 19:06 04:10 RBC 3.20 L (3.80-5.40) m/uL Hgb 9.1 L (11.4-16.0) gm/dL Hct 29.2 L (34.0-46.0) % RDW 16.4 H (11.5-15.5) % ABG pH (7.35-7.45) ABG pO2 (83-108) mmHg ABG HCO3 (21-25) mmol/L ABG Total CO2 (19-24) mmol/L Potassium (3.5-5.1) mmol/L Carbon Dioxide (22-30) mmol/L BUN (7-17) mg/dL Creatinine (0.52-1.04) mg/dL POC Glucose (mg/dL) 189 H 131 H (75-99) mg/dL Calcium (8.4-10.2) mg/dL 10/28/21 10/28/21 10/28/21 Range/Units 04:10 10:03 11:27 RBC (3.80-5.40) m/uL Hgb (11.4-16.0) gm/dL Hct (34.0-46.0) % RDW (11.5-15.5) % ABG pH 7.51 H (7.35-7.45) ABG pO2 72 L (83-108) mmHg ABG HCO3 34 H (21-25) mmol/L ABG Total CO2 36 H (19-24) mmol/L Potassium 3.0 L (3.5-5.1) mmol/L Carbon Dioxide 34 H (22-30) mmol/L BUN 20 H (7-17) mg/dL Creatinine 0.39 L (0.52-1.04) mg/dL POC Glucose (mg/dL) 161 H (75-99) mg/dL Calcium 8.0 L (8.4-10.2) mg/dL Assessment and Plan Assessment: Impression: Acute hypoxic respiratory failure secondary to COVID-19 pneumonia and complicated with ARDS. Patient was intubated on 09/25/2021. Status post tracheostomy and PEG tube placement. 10/14/2021. Acute deep vein thrombosis, on Eliquis. Bilateral pneumothoraces requiring bilateral chest tube placement. However since then the left-sided chest tube was removed, right-sided chest tube had to be placed again by Dr. Harris,I placed a right sided thoravent on 10/25/21 Acute COVID-19 pneumonia Subcutaneous emphysema, resolved. Prior history of DVT History of fibromyalgia Degenerative joint disease Mildly elevated liver enzymes secondary to cardona virus infection. Nonsustained ventricular tachycardia, resolved Recommendation: Continue propofol and fentanyl, avoid Nimbex if possible. Continue ventilatory support. Tracheostomy care, surgery to evaluate the tracheostomy site and the surgical site Continue Eliquis at 5 mg twice a day. Continue nutritional support/enteral feeding Continue GI and DVT prophylaxis, patient is on Protonix Continue COVID-19 cocktail. Including Decadron. Patient is critically ill. Critical care time is over 30 minutes. Time with Patient: Greater than 30
[2021-10-28] MEDS: fentaNYL (PF) 2,500 MCG in SODIUM CHLORIDE 0.9% 200 ML IV SCH (15:43)
[2021-10-28] MEDS: NOREPINEPHRINE 8 MG in SODIUM CHLORIDE 0.9% 250 ML IV SCH (15:45)
[2021-10-28 17:43] LABS: Glucose,Whole Blood 157 mg/dL (75-99)
[2021-10-29 00:01] LABS: Glucose,Whole Blood 111 mg/dL (75-99)
[2021-10-29] MEDS: INSULIN ASPART (NovoLOG) 100 UNIT/ML VIAL SQ SCH ×5 (00:01→23:50)
--- NOTE | 2021-10-29 02:02 | P.PN ---
Subjective Progress Note Date: 10/28/21 This is a 61-year-old female who was recently admitted with acute COVID-19 pneumonia with acute COVID-19 bilateral interstitial pneumonia and also with transaminitis and being closely monitored. Patient remains in the ICU and currently intubated and sedated with an FiO2 of 70% and PEEP is 18. 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 Patient did have a venous Doppler study done recently which showed left leg DVT and patient is maintained on Eliquis will continue. Patient also continues on empiric antibiotics and awaiting for sputum culture finalized. Patient was started on IV cefepime and will continue. Patient is also continued on oral dexamethasone along with vitamin and zinc supplements and will continue. Patient with some mild volume overload and given a dose of IV Lasix push today. 09/29/2021 Patient is seen and evaluated this morning continues to be closely monitored in the ICU and continues to be on mechanical ventilation and sedated. FiO2 was increased at 80% with a PEEP of 18 and oxygen saturations between 87-91%. Patient developing subcutaneous emphysema in the neck and chest wall area and chest x-ray today shows bilateral multifocal and confluent opacification is redemonstrated consistent with COVID-19 infection with a new small left apical pneumothorax estimated under 5% with new pneumomediastinum and recurrent overlying subcutaneous emphysema noted. Patient is white blood count mildly elevated at 16.1 and is continued on oral dexamethasone along with oral eliquis for anticoagulation. Patient continues to be on IV cefepime and blood and sputum cultures are negative thus far. 09/30/2021 Patient is seen today continues to be closely monitored in the ICU with multiple medical consultations following. Patient continues to be mechanically intubated and sedated with continued subcutaneous emphysema noted. Chest xray shows a trace left apical pneumothorax that is minimally smaller 7mm versus 1cm previously, extensive bilateral subcutaneous emphysema persists and diffuse interstitial changes and bilateral patchy opacities persist with slight improvement in aeration in the lower lungs. Per nursing staff corbin was clogged with copious amounts of white discharge and will add diflucan and corbin catheter has been changed and draining adequately. Patient continues on IV cefepime. Patient tolerating tube feeds and will continue. 10/01/2021 Patient is seen and evaluated in follow up this morning and continues to be closely monitored. Multiple medical consultations following and patient c ontinues to be on mechanical vent and sedated. Patient continues on IV Cefepime and diflucan. Patient chest xray today shows stable extensive subcutaneous emphysema, no pneumothorax, and patchy bilateral lung infiltrates remain present. INflammatory markers trending down. 10/04/2021 Patient is seen in follow-up continues to be closely monitored in the ICU. Patient remains on mechanical vent with an FI02 of 65% and peep is 18. Weaning trials being attempted with pulmonary bench tool maker following closely. Patient continues with extensive subq emphysema noted on exam. 10/05/2021 Patient Is seen and evaluated this morning with continued attempts at weaning and continues on mechanical vent and intubated with pulmonary bench tool maker following closely. Patient remains on Eliquis which will be held as surgery Dr. Nelson was consulted for possible PEG and trach tube placement for unsuccessful attempts at weaning from ventilation and prolonged hospitalization on mechanical vent. Chest x-ray today shows recurrent tiny left apical pneumothorax estimated under 5% with worsening overlying subcutaneous emphysema and again pneumomediastinum redemonstrated with multifocal confluent opacification's redemonstrated consistent with COVID-19 infection and/or arts are redemonstrated with no significant change from one day previously. Patient continues on FiO2 of 65% and PEEP was weaned down to 14 today. IV cefepime discontinued. 10/06/2021 Patient is seen in follow-up this morning per nursing staff patient had multiple runs of ectopy an irregular heart rate and rhythms with PVCs and cardiology consulted. Patient was placed on lidocaine drip and was originally on eliquis is currently on hold for possible PEG and trach placement with general surgery following. Patient had difficulty maintaining oxygen saturations and FiO2 was increased to 100% and PEEP continues at 14. Multiple medical consultations following and patient continues on oral steroids along with vitamin and zinc supplements along with fluconazole. Patient being started on IV Lasix daily and recommend close monitoring of electrolytes and kidney functions. 10/07/2021 Patient is seen in follow-up this morning continues to be monitored closely in the ICU with multiple medical consultations following. Patient is currently on mechanical vent with an FiO2 of 80% and PEEP is 16. General surgery also following for possible PEG and trach placement and will need to discuss with surgery about when this will occur. Patient remains on fluconazole. She also continues on vitamin and zinc supplements along with oral dexamethasone, clevidipine, Nimbex, IV Lasix, fentanyl and propofol and is off norepinephrine. Chest x-ray shows stable bilateral lung infiltrates. 10/08/2021 Patient is seen this morning continues to be on mechanical vent with an FiO2 of 85% and PEEP of 16. Patient continues with extensive subcutaneous emphysema and plans are for possible PEG and trach placement although on hold until possibly next week once more stable. Patient continues on Cleviprex along with fentanyl and propofol and is receiving IV Lasix daily. Patient also continues on lidocaine drip which is currently on hold and cardiology is following closely. Anticoagulant was resumed for now again until more stable to undergo PEG and trach placement. Chest x-ray today shows persistent bilateral multifocal and confluent increased opacification is with persistent overlying subcutaneous emphysema noted in pneumomediastinum is again redemonstrated. 10/09/2021 Patient evaluated today in ICU mechanical ventilation with FiO2 of 80%. Chest x-ray this morning shows similar multifocal airspace opacities and stable support lines and tubes. Similar subcutaneous emphysema scattered throughout the visualized thorax. PEG and trach plan for next week once more stable. Current meds include Cleviprex, Nimbex, fentanyl, propofol. She is receiving IV fluconazole, as well as IV Lasix. Levophed and Lidocaine gtt;s are on hold. Positive bowel sounds. Current vitals afebrile, heart rate 71, blood pressure 135/60 and oxygen saturation is 93%. Respirations 30. Labs today, white count 17, hemoglobin 11.6, sodium 139, potassium 3.8, BUN 34, creatinine 0.91, CO2 33, calcium 8.7, ALT 54, albumin 2.8 with blood sugars in the 100s. 10/10/2021 Patient evaluated today in the ICU on the mechanical VENT with fio2 of 100%. Positive bowel movement today, Stage 2 pressure ulcer on coccyx per RN, optifoam ordered. Per RN they were unable to patient as she was desaturating. They're unable to wean Fi02 currently as she does desaturate with any time of movement. She was lying more on her right side during evaluation and pulse ox was dropping into high 80s she was being repositioned by nurses. Plan is to PEG/TRACH patient tomorrow. Last family update was 4 days ago. We will call and discuss case today. Patient is afebrile, heart rate 84, respirations 30, blood pressure 141/55, 92% oxygen saturation on 100% Fi02, which was increased today up from 70 Fi02%. Labs today show WBC of 15.6, hgbl 10.7, sodium 138, potassium 3.9, chloride 100, CO2 37, glucose 117, calcium 8.2. Chest xray today shows pneumonia, ARDS. 10/11/2021 Patient is seen and evaluated in follow-up this morning continues to be closely monitored in the ICU and patient is continued on FiO2 of 90% and PEEP is 16 with multiple medical consultations following. Chest x-ray today shows new left- sided pneumothorax estimated 10-20% with overlying subcutaneous emphysema and pneumomediastinum redemonstrated with bilateral multifocal and confluent op acification's redemonstrated consistent with COVID-19 infection and/or arts and no significant change from one day previous. Patient is status post left chest tube insertion with pulmonary bench tool maker. Cardiology following and patient is off lidocaine drip and maintaining sinus rhythm. Patient also continues on vitamin and zinc supplements along with oral dexamethasone and patient continues on IV Lasix 40 mg daily. Patient also continues off norepinephrine and is currently maintained on IV cefepime along with fluconazole. General surgery following as well and plan is for peg and trach placement in the am 10/12/2021 Patient is seen in the ICU this morning continues to be closely monitored by multiple medical consultations. Patient was scheduled for PEG and trach placement with general surgery Dr. Nelson today although canceled as patient became hypotensive requiring Levophed along with acute blood loss anemia and hemoglobin dropped to 6.5 this morning requiring 1 unit of PRBC. Patient continues with left chest tube with pneumothorax and chest x-ray today shows the jahaira is difficult to clearly identify on the present exam and the ET tube may be approximately 1 cm from the jahaira and there are bilateral chest tubes present with continued diffuse interstitial opacification is and more focal bibasilar opacification is with subcutaneous emphysema persists along the upper chest with slight improvement on the left. No appreciable pneumothorax noted. Patient having worsening right pleural effusion last night and received a right- sided chest tube with pulmonary bench tool maker. FiO2 is 90% and PEEP of 16. Again overall prognosis remains extremely poor and guarded. 10/13/2021 Patient is seen in follow-up this morning in the ICU with multiple medical consultations following. Lengthy discussion was had with pulmonary bench tool maker and family members and would like to continue with full CODE STATUS and plan is in place for PEG tube and tracheostomy placement tomorrow. Anticoagulant on hold and Dr. Nelson plans for surgery tomorrow. Patient continues on oral dexamethasone along with IV cefepime, vitamin and zinc supplements. Patient also continues on Cleviprex and Nimbex. Patient also continues on fentanyl and propofol and will continue. Chest x-ray today shows stable portable chest with bilateral chest tubes without sizable pneumothorax identified and continued subcutaneous air persists with persistent interstitial changes bilaterally with airspace disease in the bilateral lung bases that are unchanged. FiO2 is 60% and PEEP of 16. 10/14/2021 Patient is seen and evaluated in the ICU being closely monitored with multiple medical consultations following. at the bedside today and had detailed discussion with overall prognosis. Plan is to proceed with PEG tube and tracheostomy placement with surgery Dr. Nelson today and anticoagulant continues to be on hold for this procedure. Patient continues on mechanical ventilation with an FiO2 of 70% and PEEP of 16. Chest x-ray today shows improving infiltrate with bibasilar residual and bilateral chest tubes remain present with no pneumothorax evident on either side and again subcutaneous emphysema is noted. 10/15/2021 Patient is seen in the ICU being closely monitored. Patient is status post PEG and trach placement yesterday. Chest x-ray today shows bilateral patchy lung infiltrates greater at the right base with diffuse increased lung markings and bilateral chest tubes remain present and subcutaneous emphysema on the right is diminished. Patient continues with an FI02 of 60 and peep is 16. To resume tube feeds per surgery. Patient continues on norepinephrine and sedation. Patient is receiving IV lasix daily. 10/16/2021 Patient is currently in the MICU and remains on ventilator. Status post tracheostomy and PEG tube placement on 10/14/2021. Patient is sedated and paralyzed. Also on Cleviprex. Chest x-ray showed no acute cardiopulmonary disease with no interval changes. Laboratory data showed WBC 16.9 hemoglobin 8.9 and platelets 278 BUN 19 and creatinine 0.5 and calcium 8.1 patient is being continued on dexamethasone 6 mg daily, Lasix 40 mg IV daily and multivitamins and anticoagulation with Eliquis. Pulmonary and general surgery is on board. 10/17/2021 Patient is in the MICU. Remains on the current ventilator via tracheostomy. Status post tracheostomy and PEG tube placement on 10/14/2021. Sedated and paralyzed and also on fentanyl drip. Currently on assist control with tidal volume of 420, FiO2 80% and PEEP of 16. Respiratory of 30. Chest x-ray showed no interval change in acute cardiopulmonary disease Laboratory data showed WBC 15.8 hemoglobin 8.2 and platelets 271 Sodium 136 potassium 3.1 chloride 100 bicarb is 32 BUN 21 creatinine 0.48 and albumin 2.3 Patient is being continued on Lasix IV, dexamethasone and anticoagulation with Eliquis. 10/18/2021 Patient is seen in follow-up and continues in the ICU with multiple medical consultations following. Patient continues on mechanical vent with an FI02 of 70% and peep is 16. Chest xray shows overall stable exam with interstitial changes and bilateral patchy infiltrates with right greater than left and greater at the bases with bilateral chest tubes noted. no appreciable pneumothorax. Patient continues on propofol and fentanyl along with cleviprex and rocuronium. Eliquis has been resumed. Potassium is 3.3 and will be replaced per protocol. Patient also continues to receive IV lasix daily. 10/19/2021 Patient is seen this morning and continues to be in the ICU with multiple medical consultations following. Patient continues with bilateral chest tubes and remains on mechanical ventilation with an FiO2 of 65% and PEEP is 16. Chest x-ray today shows Bilateral multifocal and confluent opacification greatest in the lower lungs consistent with COVID-19 infection and/or ARDS all redemon strated with no significant change from one day earlier and continued bilateral chest tubes without pneumothorax redemonstrated. 10/20/2021 Patient continues to be in the ICU under close critical monitoring with multiple medical consultations following. Patient continues with bilateral chest tubes although per nursing staff may possibly discontinued today. Chest x-ray today shows stable portable chest with no change in scattered mixed interstitial and alveolar infiltrates. Patient remains on mechanical ventilation via tracheostomy with an FiO2 of 55% and PEEP is 15. Patient continues on Cleviprex along with rocuronium and sedation. 10/21/2021 Patient continues in the MICU being closely monitored. Chest tubes were removed today and chest xray stable with interstitial changes and basilar ground glass, that is similar to previous with slight improvement. Patient continues on mechanical vent with an FI02 of 70% and peep is 14. Patient remains sedated and per nursing staff working on weaning paralytics. Patient continued on rocuronium. Patient is tolerating tube feeds and also continues on IV lasix daily with generalized edema noted throughout. 10/22/2021 Patient is currently MICU. Patient was taken off paralytic and chest tubes yesterday. Continued on pressure support with PEEP of 13. 88 this morning patient again desaturated. Patient became hypotensive and patient was started on norepinephrine. Chest x-ray showed large pneumothorax on the right. Right chest tube was reinserted. Patient is on pressure control. Remains sedated and mechanically ventilated. Laboratory data showed WBC 13.7 hemoglobin 7.7 and platelets 314 Sodium 140 potassium 3.0 chloride 102 bicarb is 37 BUN 19 and creatinine 0.44 and calcium 8.1 Patient is being continued dexamethasone multivitamins and anticoagulation with Eliquis. Patient is also on IV Lasix. Potassium will be replaced. 10/23/2021 Patient is currently MICU. Patient is on mechanical ventilator via trach tube. Patient developed right-sided tension pneumothorax. Again patient had issues with pneumothorax around 10 PM yesterday. Chest tube has to be replaced. Patient is also requiring pressor support. Off pressors this morning. On pressure support. PEEP of 13 and FiO2 100%. Laboratory data showed WBC 13.7 hemoglobin 7.7 and platelets 314 Sodium 140 potassium 3.0 chloride 102 bicarb is 37 BUN 19 and creatinine 0.44 and calcium 8.1 cultures have been negative. Patient is being current on dexamethasone, Eliquis and also IV Lasix 40 mg daily. 10/24/2021 Patient is currently in the MICU. Currently on mechanical ventilator via tracheal tube. Continue propofol and fentanyl. Remains pressure support with PEEP of 13 FiO2 reduced to 70%. Chest x-ray showed bilateral multifocal and confluent opacities consistent with COVID-19 infection and ARDS are redemonstrated and stable. Right-sided chest tube with small apical pneumothorax estimated 10 to 15% improved from 1 day earlier. Pneumo mediastinum noted. Laboratory data showed WBC 14.2 hemoglobin 7.1 and platelets 317 Sodium 140 potassium 3.2 chloride 104 bicarb is 38 BUN 20 and creatinine 0.46 and calcium 7.8. Patient is being continued on dexamethasone, Eliquis and also on IV Lasix. Currently on multivitamins. 10/25/2021 Patient is seen this morning continues to be in the ICU with close monitoring. Patient continues on mechanical vent via tracheostomy and FiO2 of 65% with a PEEP of 13. Chest x-ray this morning shows right-sided chest tube in place with continued small to moderate right sided pneumothorax slightly smaller in the interval, apical component measuring 2.3 cm versus 2.8 cm previously along with interstitial opacities persist in pneumonitis versus mild pulmonary edema, status post right side thoravent place this morning with pulmonary bench tool maker showing resolution of the apical and lateral components of the pneumothorax and 5 mm basilar components remain. Patient requiring more oxygen supplementation and FiO2 being increased to 75%. Hemoglobin found to be 6.3 and awaiting to receive a unit of PRBC. Patient also continues on Nimbex along with Cleviprex, oral dexamethasone, vitamin and zinc supplements along with oral eliquis, along with fentanyl and propofol for sedation. 10/26/2021 Patient is seen in follow-up today continues on mechanical ventilation with an FiO2 of 75% which is currently titrating down to 65% per nursing staff with an FiO2 of 13. Patient continues on Cleviprex and Nimbex and attempts at weaning although not tolerating well. Patient also continues on fentanyl and propofol for sedation. Chest x-ray today shows a right-sided thoracic vent and chest to both present and overlying appropriate positions with minimal right-sided apical pneumothorax present and persistent bilateral interstitial groundglass opacities noted with no evident pleural effusion to correlate for pneumonia. Hemoglobin improved to 8.7 today after 1 unit of PRBC. Will continue to monitor closely. 10/27/2021 Patient is seen today continues to be closely monitored in the ICU on mechanical vent via tracheostomy with an FiO2 of 70% and PEEP is 13. Patient continues on IV Lasix daily along with propofol and fentanyl for sedation. Patient also continues to be on Cleviprex as blood pressure is elevated. Per nursing staff attempts at weaning some sedation although patient not tolerating well. Patient continues with chest tubes on the right and there is an air leak noted and also continues with thoravent on the right. Chest x-ray today shows enlarging right- sided pneumothorax estimated at 15% with no significant change in interstitial infiltrate seen bilaterally. 10/28/2021 Patient is seen in the ICU this morning continues on mechanical ventilation with a FI02 of 85% and peep is 13. Patient continues on propofol for sedation along with Nimbex and also patient is on norepinephrine with hypotension at times. Chest xray today shows continued diffuse interstitial infiltrates with continued right side pneumothorax slightly larger in the interval, apical component measu ring 1.9cm versus 1.5. Potassium was found to be 3.0 and being replaced. Review of systems: Unable to obtain as patient is mechanically intubated and sedated Labs: WBC is 8.6, hemoglobin is 9.1, platelets are 331, sodium is 138, potassium is 3.0, BUN is 20, creatinine is 0.39, calcium is 8.0, mag is 2.1 Active Medications Apixaban (Apixaban 5 Mg Tab) 5 mg PO BID [facility]; Protocol Last Admin: 10/28/21 08:51 Dose: 5 mg Documented by: Artificial Tears (Artificial Tears-Hypromellose Drops 15 Ml Btl) 2 drops BOTH EYES QID [facility] Last Admin: 10/28/21 15:44 Dose: 2 drops Documented by: Ascorbic Acid (Ascorbic Acid 500 Mg Tab) 500 mg PO BID [facility] Last Admin: 10/28/21 08:51 Dose: 500 mg Documented by: Dexamethasone (Dexamethasone 2 Mg Tab) 4 mg PO DAILY [facility] Last Admin: 10/28/21 08:49 Dose: 4 mg Documented by: Docusate Sodium (Docusate Oral Soln 100 Mg/10 Ml Cup) 100 mg PO DAILY PRN PRN Reason: Constipation Last Admin: 10/18/21 15:53 Dose: 100 mg Documented by: Ergocalciferol (Ergocalciferol 1,250 Mcg (50,000 Iu) Capsule) 1,250 mcg PO [facility] Last Admin: 10/24/21 09:11 Dose: Not Given Documented by: Furosemide (Furosemide 10 Mg/Ml 4 Ml Vial) 40 mg IV DAILY [facility] Last Admin: 10/28/21 11:38 Dose: 40 mg Documented by: Sodium Chloride (Saline 0.9%) 1,000 mls @ 20 mls/hr IV .Q24H [facility] Last Admin: 10/28/21 04:53 Dose: Not Given Documented by: Fentanyl Citrate 2,500 mcg/ (Sodium Chloride) 250 mls @ 4.6 mls/hr IV .Q24H [facility]; Protocol Last Admin: 10/28/21 15:43 Dose: 2 mcg/kg/hr, 18.4 mls/hr Documented by: Clevidipine 25 mg/ IV Solution 50 mls @ 2 mls/hr IV .Q24H [facility]; Protocol Last Titration: 10/28/21 14:40 Dose: 4 mg/hr, 8 mls/hr Documented by: Norepinephrine Bitartrate 8 mg (/ Sodium Chloride) 258 mls @ 9.143 mls/hr IV .Q24H [facility]; Protocol Last Titration: 10/28/21 16:18 Dose: 0.08 mcg/kg/min, 14.629 mls/hr Documented by: Cisatracurium Besylate 200 mg/ (Sodium Chloride) 200 mls @ 5.424 mls/hr IV .Q24H [facility]; Protocol Last Admin: 10/28/21 11:22 Dose: Not Given Documented by: Propofol 1,000 mg/ IV Solution 100 mls @ 0 mls/hr IV .Q0M [facility]; Protocol Insulin Aspart (Insulin Aspart (Novolog) 100 Unit/Ml Vial) 0 unit SQ Q6HR [facility]; Protocol Last Admin: 10/28/21 11:37 Dose: 1 unit Documented by: Miscellaneous Information (Pneumonia Protocol Utilized 1 Each Misc) 1 each PO ONCE PRN PRN Reason: Per Protocol Miscellaneous Information (Potassium Replacement Protocol 1 Each Misc) 1 each MISCELLANE DAILY PRN; Protocol PRN Reason: Per Protocol Naloxone HCl (Naloxone 0.4 Mg/Ml 1 Ml Vial) 0.2 mg IV Q2M PRN PRN Reason: Opioid Reversal Pantoprazole Sodium (Pantoprazole 40 Mg/10 Ml Vial) 40 mg IV DAILY [facility] Last Admin: 10/28/21 08:51 Dose: 40 mg Documented by: Quetiapine Fumarate (Quetiapine 25 Mg Tab) 25 mg PO BID [facility] Last Admin: 10/28/21 08:51 Dose: 25 mg Documented by: Zinc Sulfate (Zinc Sulfate 220 Mg Cap) 220 mg PO DAILY [facility] Last Admin: 10/28/21 08:51 Dose: 220 mg Documented by: Physical Exam: Gen: This is a 61-year-old female currently sedated and intubated. mechanical ventilation Fio2 increased today to 85% with a PEEP of 13 HEENT: Head is atraumatic, normocephalic. Pupils equal, round. Sclerae is anicteric. tracheostomy noted NECK: Supple. No JVD. No lymphadenopathy. No thyromegaly. tracheostomy noted LUNGS: Diminished breath sounds bilaterally with coarse rhonchi and crackles noted. No intercostal retractions. Right side chest tube and thoravent noted HEART: S1, S2 are muffled ABDOMEN: Soft. Bowel sounds are present. No masses. No tenderness. peg tube no ailin. EXTREMITIES: No pedal edema. No calf tenderness. generalized edema noted NEUROLOGICAL: Patient is currently intubated and sedated Assessment: Acute COVID-19 infection with acute COVID-19 bilateral interstitial pneumonia with hypoxic hypercarbic respiratory failure on mechanical vent status post trach and peg tube placement on 10/14/2021 Subcutaneous emphysema of the neck and chest, improving bilateral pneumothoraces with chest tube placement and is status post removal of chest tubes 2.3.2021 Status post reinsertion of chest tubes on 10/22/2021 due to a tension pneumothorax on the right, status post thoraVent placement as well on the right on 10/25/2021, worsening pneumothorax on the right with continued air leak of the chest tube but not thoravent Acute blood loss anemia secondary to bilateral chest tube placements, possible hypovolemic shock requiring pressor support, currently hypertensive and off pressors, continues on cleviprex Non-sustained ventricular tachycardia, currently sinus Acute left leg deep vein thrombosis Acute respiratory acidosis Primary hypercoagulable state and factor V deficiency Mild transaminitis, possibly secondary to COVID-19 History of degenerative joint disease History of fibromyalgia Elevated inflammatory markers of COVID-19 Obesity with a body mass index of 38.1 Full code Plan: Recommend to continue with current medications and follow along closely with multiple medical consultations. Prognosis remains extremely poor and guarded with multiple complex medical issues noted. Patient continues on mechanical ventilation via tracheostomy and FiO2 85% with PEEP of 13. Recommend to continue with current medications. Patient continues with right side chest tube with an air leak and chest x-ray today shows increase in pneumothorax and Also continues with thoravent. Patient continues on cleviprex and attempting to wean sedation. Per nursing staff patient is also requiring small amounts of levophed as well. Patient currently off Nimbex since yesterday. Recommend repeat labs and continued close monitoring. Again due to multiple complex medical issues overall prognosis is extremely poor and quite guarded. Objective - Vital Signs Vital signs: Vital Signs Temp 99.8 F H 10/28/21 08:00 Pulse 115 H 10/28/21 08:00 Resp 29 H 10/28/21 08:00 BP 120/62 10/28/21 07:00 Pulse Ox 90 L 10/28/21 08:00 Intake & Output 10/27/21 10/28/21 10/28/21 18:59 06:59 18:59 Intake Total 1263.661 802.315 60.467 Output Total 2410 685 350 Balance -1146.339 117.315 -289.533 Intake: IV 253 276 23 0.9 NS 220 240 20 pressure bag 33 36 3 Intake, IV Titration 810.661 376.315 27.467 Amount Clevidipine Butyrate 25 134.333 0.666 27.467 mg In Empty Bag 1 bag @ 1 MG/HR 2 mls/hr IV .Q24H [facility] Rx#:[id number] Norepinephrine 8 mg In 95.692 Sodium Chloride 0.9% 250 ml @ 0.05 MCG/KG/MIN 9. 143 mls/hr IV .Q24H [facility] Rx#:[id number] fentaNYL (PF) 2,500 mcg 242.18 117.989 In Sodium Chloride 0.9% 200 ml @ 0.5 MCG/KG/HR 4. 6 mls/hr IV .Q24H [facility] Rx# :[id number] propofoL 1,000 mg In 338.456 257.66 Empty Bag 1 bag @ Titrate IV .Q0M [facility] Rx#: [id number] Tube Feeding 110 120 10 Other 90 30 Output: Urine 2410 685 350 Other: Voiding Method Indwelling Catheter Indwelling Catheter ABP, PAP, CO, CI - Last Documented Arterial Blood Pressure 140/58 - Labs CBC & Chem 7: 10/28/21 04:10 10/28/21 10:52 Labs: Abnormal Lab Results - Last 24 Hours (Table) 10/27/21 10/27/21 10/27/21 Range/Units 11:30 14:16 19:06 RBC (3.80-5.40) m/uL Hgb (11.4-16.0) gm/dL Hct (34.0-46.0) % RDW (11.5-15.5) % Potassium (3.5-5.1) mmol/L Carbon Dioxide (22-30) mmol/L BUN (7-17) mg/dL Creatinine (0.52-1.04) mg/dL POC Glucose (mg/dL) 154 H 189 H 131 H (75-99) mg/dL Calcium (8.4-10.2) mg/dL 10/28/21 10/28/21 Range/Units 04:10 04:10 RBC 3.20 L (3.80-5.40) m/uL Hgb 9.1 L (11.4-16.0) gm/dL Hct 29.2 L (34.0-46.0) % RDW 16.4 H (11.5-15.5) % Potassium 3.0 L (3.5-5.1) mmol/L Carbon Dioxide 34 H (22-30) mmol/L BUN 20 H (7-17) mg/dL Creatinine 0.39 L (0.52-1.04) mg/dL POC Glucose (mg/dL) (75-99) mg/dL Calcium 8.0 L (8.4-10.2) mg/dL
[2021-10-29 04:12] LABS: Anisocytosis Slight; Basophils % (A) 0 %; Eosinophils # (A) 0.2 k/uL (0-0.7); Eosinophils % (A) 2 %; HCT 29.9 % (34.0-46.0); HGB 9.1 gm/dL (11.4-16.0); Hypochromasia Marked; Lymphocytes # (A) 1.6 k/uL (1.0-4.8); Lymphocytes % (A) 20 %; MCH 28.2 pg (25.0-35.0); MCHC 30.5 g/dL (31.0-37.0); MCV 92.5 fL (80.0-100.0); Mean Platelet Volume 8.2; Monocytes # (A) 0.3 k/uL (0-1.0); Monocytes % (A) 4 %; Neutrophils # (A) 5.6 k/uL (1.3-7.7); Neutrophils % (A) 72 %; Platelet Count 329 k/uL (150-450); Poikilocytosis Moderate; RBC 3.23 m/uL (3.80-5.40); WBC 7.8 k/uL (3.8-10.6)
[2021-10-29 04:23] LABS: African American GFR (CKD) >90 (>60 ml/min/1.73 sqM); Anion Gap 1 mmol/L; Blood Urea Nitrogen 21 mg/dL (7-17); Carbon Dioxide 35 mmol/L (22-30); Chloride 104 mmol/L (98-107); Glucose 84 mg/dL (74-99); Non-African American GFR(CKD) >90 (>60 ml/min/1.73 sqM); Potassium 2.8 mmol/L (3.5-5.1); Sodium 140 mmol/L (137-145)
[2021-10-29] MEDS: fentaNYL (PF) 2,500 MCG in SODIUM CHLORIDE 0.9% 200 ML IV SCH ×2 (04:23→18:25)
[2021-10-29 05:42] LABS: Glucose,Whole Blood 81 mg/dL (75-99)
[2021-10-29] MEDS: SODIUM CHLORIDE 0.9% 1,000 ML IV SCH (05:45)
[2021-10-29 05:55] LABS: ABG Base Excess 13.2 mmol/L; ABG HCO3 39 mmol/L (21-25); ABG Oxygen Saturation 96.7 % (94-97); ABG PCO2 57 mmHg (35-45); ABG PH 7.45 (7.35-7.45); ABG PO2 88 mmHg (83-108); Allen Test Performed? Yes
[2021-10-29] MEDS: POTASSIUM BICARBONATE/CIT AC 20 MEQ TABLET.EFF NG-TUBE SCH ×3 (06:03→10:15)
--- NOTE | 2021-10-29 08:06 | XR ---
"EXAMINATION TYPE: XR chest 1V portable DATE OF EXAM: 10/29/2021 COMPARISON: 10/28/2021 INDICATION: Short of breath TECHNIQUE: Single frontal view of the chest is obtained. FINDINGS: The heart size is normal. The pulmonary vasculature is somewhat prominent. Mild diffuse increased lung markings are present. There is a right-sided pneumothorax. This is increasing in size over the interval. Right-sided chest tube appears stable in position. A pleural vac catheter appears to be moved from the comparison. Righ t-sided PICC line is present with the tip in the distal superior vena cava region. Tracheostomy tube is in the midline. IMPRESSION: 1. Increasing size right-sided pneumothorax currently estimated at 40%. A [place] critical message alert has been initiated for Jose Manuel Ramirez MD~[id number] via the [employer] 36 0 | Critical Results System on 10/29/2021 8:04 AM. This message alert has been sent to Jose Manuel Ramirez MD ~[id number] via the preferences provided by the clinician for the receipt of Radiology Critical Findings. Message ID [id number]."
[2021-10-29] MEDS ORDERED: CISATRACURIUM 2 MG/ML 5 ML VIAL IV ONE ×2 (08:35→08:41)
[2021-10-29] MEDS: NOREPINEPHRINE 8 MG in SODIUM CHLORIDE 0.9% 250 ML IV SCH (08:48)
--- NOTE | 2021-10-29 10:00 | XR ---
EXAMINATION TYPE: XR chest 1V portable DATE OF EXAM: 10/29/2021 COMPARISON: Same date INDICATION: Increasing pneumothorax TECHNIQUE: Single frontal view of the chest is obtained. FINDINGS: The heart size is normal. The pulmonary vasculature is normal. Diffuse increased lung markings are present, this may be increasing on the right. There is a small right apical pneumothorax, diminished from comparison. Pleur-evac catheter has been removed. The right-sided chest tube is stable in position. A new right-sided chest tube is been place d and there is diminished pneumothorax on the right. Tracheostomy tube is in the midline. PICC line enters on the right with the tip in the distal superio r vena cava region. IMPRESSION: 1. Diminished right-sided pneumothorax. There is placement of a new right-sided chest tube smaller ri ght upper chest tube. 2. Additional lines and catheters discussed above. 3. Increasing diffuse infiltrates greater on the right.
[2021-10-29] MEDS: ASCORBIC ACID 500 MG TAB PO SCH ×2 (10:14→20:47)
[2021-10-29] MEDS: ZINC SULFATE 220 MG CAP PO SCH (10:14)
[2021-10-29] MEDS: APIXABAN 5 MG TAB PO SCH ×2 (10:14→20:47)
[2021-10-29] MEDS: LEVOFLOXACIN 500MG-D5W PMX 500 MG in DEXTROSE/WATER 1 100ML.BAG IVPB SCH (10:15)
[2021-10-29] MEDS: dexAMETHasone 2 MG TAB PO SCH (10:15)
[2021-10-29] MEDS: QUEtiapine 25 MG TAB PO SCH ×2 (10:15→20:47)
[2021-10-29] MEDS: PANTOPRAZOLE 40 MG/10 ML VIAL IV SCH (10:15)
[2021-10-29] MEDS: FUROSEMIDE 10 MG/ML 4 ML VIAL IV SCH ×2 (10:15→20:48)
[2021-10-29] MEDS: ARTIFICIAL TEARS-HYPROMELLOSE DROPS 15 ML BTL BOTH EYES SCH ×4 (10:16→20:48)
[2021-10-29 11:30] LABS: Glucose,Whole Blood 116 mg/dL (75-99)
--- NOTE | 2021-10-29 12:28 | OP ---
OPERATIVE REPORT OPERATIVE REPORT: Placement of right-sided chest tube/right-sided tube thorac . PREOPERATIVE DIAGNOSIS: Worsening right-sided pneumothorax secondary to barotrauma and secondary to COVID-19 complications. POSTOPERATIVE DIAGNOSIS: Worsening right-sided pneumothorax secondary to barotrauma and secondary to COVID-19 complications. ANESTHESIA USED: Ten mL of 1% lidocaine. The patient was already on fentanyl, propofol, and she was given 10 mg of Nimbex prior to the procedure. PROCEDURE DESCRIPTION: The patient was placed in supine position. The area of the right chest was prepared in a sterile fashion. Drapes were applied. The area at the level of the anterior axillary line and fifth intercostal space was locally anesthetized. Then a 1.5 cm incision was made at the same site. The pleural space was entered by dissecting fascia using Thao forceps and using index finger. As the pleural space was entered, there was a gush of air. A size 32 argyle chest tube was placed pointing atypically, and it was secured and connected to Pleur-Evac. The tube was secured using 0.0 Ethibond sutures. Chest x-ray postoperatively showed adequate placement of the right-sided chest tube and significant resolution of the right-sided pneumothorax. The tube was secured and dressing was applied. Then we went ahead and removed the ThoraVent which was placed a few days ago in the right upper chest area. Again, no complications. Procedure was well tolerated. TORY / RICHIEN: [id number] /
--- NOTE | 2021-10-29 12:52 | P.PN ---
Subjective Progress Note Date: 10/29/21 Principal diagnosis: Acute hypoxic respiratory failure secondary to COVID-19 pneumonia 10/24/2021, the patient remains on a mechanical ventilator. This morning, she is sedated with a combination of propofol and fentanyl. Propofol is running at 45 mcg/kg per minute and the fentanyl is running at 1.5 mcg/kg/h. I have taken this patient off paralytics. Meanwhile, switch this patient a pressure control mode of mechanical ventilation at the rate of 26, pressure control of 22, FiO2 of 70% with a PEEP of 13. The chest x-ray from today showing a small right apical pneumothorax. Chest tube is in a good location. There are still persistent air leak and the chest tube. Tracheostomy tube is high in the trachea. Nevertheless, there is no air leaks. The patient continues to have diffuse bilateral pulmonary infiltrates more so in the right lower lobe. The blood gases from today shows a pH of 7.50 with a pCO2 of 47 and pO2 of 96 and this was on FiO2 of 70%. Otherwise, the patient remains hemodynamically stable. She remains on anticoagulation and the patient remains on Eliquis 5 mg by mouth twice a day.. The patient is also on Decadron as well as a 4 mg by mouth daily no other new complaints otherwise for now. The patient is receiving enteral feeding for nutritional support via PEG tube. She is currently on vital high protein at the rate of 10 mL an hour. The blood work from today shows a white cell count 14.2 with hemoglobin of 7.1 and a platelet count of 317. Sodium is at 140 with potassium level of 3.4 which is going to be replaced. BUN is at 20 with a creatinine of 0.4. Blood sugar is at 103. No other significant events overnight. No synovitis fluid overload. Overall fluid balance over the past 24 hours has been -1083 cc. Reevaluated today on 10/25/2021, patient remains in the ICU, intubated, mechanically ventilated. Patient is presently on pressure control mode of mechanical ventilation, pressure control of 18, TI of 0.9 FiO2 60% PEEP of 15. ABG showed a pO2 of 100 pCO2 of 58 pH of 7.41, however during my evaluation the patient was noted to desaturate and her chest x-ray was showing worsening right- sided pneumothorax, hence went ahead and placed a 13-Persian thoravent in the right upper chest area at the level of the midclavicular line and third intercostal space. Follow-up chest x-ray showed complete reexpansion of the right lung, To the old chest tube in place, and connected both to pleural vacs. Patient is on fentanyl at 2.5 mcg/kg/h, is also on propofol at 50 and considering the patient was noted to have increased work of breathing and she was desaturating I recommended we place her back on Nimbex. Patient is rece iving vital Hb at 10 mL per hour. She is not requiring any pressors. Her peak airway pressure is 36 plateau pressure is 34. Her pressure control was increased from 18-22, and a PEEP was cut down to 13. Instructed the nurses to titrate FiO2 down while the patient is on Nimbex. Patient is noted to be awake, opens eyes, but does not follow any instructions. Hemoglobin today is 6.3, patient will receive at least a unit of packed RBCs. WBC count is 9.1. Electrolytes and renal profile are normal except for low potassium of 3.4. Chest x-ray post chest tube placement showed interval resolution of the apical and lateral pneumothorax. Reevaluated today on 10/26/2021, patient remains in the ICU, remains intubated mechanically ventilated, sedated and paralyzed. She is on pressure control mode of mechanical ventilation with a pressure control of 22 inspiratory time of 0.10 seconds. FiO2 60% PEEP of 13. ABG on 75% earlier showed a pO2 of 182 pCO2 of 53 pH of 7.44. Patient remains on multiple drips including Nimbex at 1.5 pg/kg/m, propofol at 50 mcg/kg/m, fentanyl 2 mcg/kg/h. IV fluid at 20 mL per hour. Peak airway pressure is 36 plateau pressure is 25. Patient remains on vital hpf at 10 mL per hour. Today I cut down the FiO2 to 50%. Chest x-ray showed excellent expansion of the right lung, right-sided chest tube and right sided thoravent are in the proper position, no evidence of air leak and the pleural VAC. And the right lung seems to be almost completely reexpanded. Very small tiny apical pneumothorax is noted. Today I'm planning to hold the Nimbex and hopefully maintain the patient on propofol and sentinel if possible. And I have no plans to remove any of the chest tubes at present. Chest x-ray continues show bilateral infiltrates consistent with COVID-19 pneumonia, nonetheless overall the chest x-ray is showing improvement. WBC count is 13.1 hemoglobin 8.7. A left was are normal renal profile is normal bicarb is 35 Reevaluated today on 10/27/2021, patient remains in the ICU, intubated and mechanically ventilated. She is on assist control rate of 26, pressure control 22, TI of 0.90 PEEP of 13 FiO2 70%. Continues to have a relatively elevated plateau pressure of 36 consistent with ARDS. Continues to have abnormal chest x-ray showing bilateral airspace disease, and a small right apical right-sided pneumothorax. Continues to have air leak in the right-sided chest tube, but none in the THORAVENT pleural VAC. ABG showed a pO2 of 53 pCO2 46 pH of 7.50 hence the FiO2 was increased from 65% to 70%. CBC is relatively normal WBC count is 9.1 hemoglobin is 9.2. Basic metabolic profile is normal, potassium is low being corrected. Patient remains on multiple drips including fentanyl 2 mcg/kg/h, propofol at 55 mcg/kg/m, she is on clevidipine 12 mg per hour, patient is off Nimbex since yesterday. IV fluids at KVO. Reevaluated today on 10/28/21, patient remains in the ICU, remains intubated and mechanically ventilated. She is on pressure control mode of mechanical ventilation, pressure control is set at 22, rate is 26, inspiratory time is 0.9, remains on FiO2 of 85% and PEEP of 13. Patient is sedated but not paralyzed, she is now on fentanyl at 1.5 and I increased the dose to 2 mcg/kg/m. I have also increased her propofol from 50-75. Patient remains on clevidipine to my milligrams per hour and she remains on enteral feeding using vital Hb at 10 mL per hour. CBC is relatively unremarkable hemoglobin is 9.1 electrolytes are nor mal except for low potassium of 3.0. Profile is normal. Chest x-ray continues to show bilateral airspace disease, and a small tiny right apical right-sided pneumothorax in spite of having a chest tube and a thoravent in place. Not much of a change noted in the last 24 hours, patient is basically about the same but seems to be a bit more agitated and restless as her sedation was increased. Reevaluated today on , patient remains in the ICU, intubated and mechanically ventilated. Chest x-ray early this morning showed 40% right-sided pneumothorax, hence went ahead and placed another chest tube a size 32 [place] chest tube, placed lateral to the previous chest tube, and the thoravent was removed from the upper chest. Chest x-ray showed significant improvement, and now early is noted in both chest tubes the new one and the old one. Patient is on pressure control mode of mechanical ventilation with a pressure control of 22, rate of 26, inspiratory time of 0.90, FiO2 60% PEEP 13. . CBC is relatively unremarkable, electrolytes are normal except for low potassium of 2.8. Patient is not requiring any pressors, she is not on Nimbex, but she is requiring propofol at propofol at 75 mcg/kg/m, and fentanyl 2 mcg/kg per hour. Patient is also receiving vital Hb at 10 mL per hour. Patient had a low-grade temp yesterday, TROPONIN was ordered, and started the patient empirically on Levaquin. Sputum cultures are pending. Today I had a chance to have a long discussion with all family members and updated on her status. Objective - Vital Signs Vital signs: Vital Signs Temp 98.0 F 10/29/21 08:00 Pulse 99 10/29/21 11:00 Resp 26 H 10/29/21 11:00 BP 120/65 10/28/21 12:00 Pulse Ox 87 L 10/29/21 11:00 Intake & Output 10/28/21 10/29/21 10/29/21 18:59 06:59 18:59 Intake Total 114.633 5774.295 569.833 Output Total 2540 260 1098 Balance -1548.088 951.295 -528.167 Weight 93 kg Intake: IV 276 253 238 0.9 Normal Saline @ 20mL/ 240 220 120 hr Levofloxacin 500Mg-D5w 100 Pmx 500 mg In Dextrose/ Water 1 100ml.bag @ 100 mls/hr IVPB Q24H [facility] Rx#: [id number] pressure bag 36 33 18 Intake, IV Titration 525.912 758.295 211.833 Amount Clevidipine Butyrate 25 81.467 34.667 mg In Empty Bag 1 bag @ 1 MG/HR 2 mls/hr IV .Q24H [facility] Rx#:[id number] Norepinephrine 8 mg In 12.434 90.819 Sodium Chloride 0.9% 250 ml @ 0.05 MCG/KG/MIN 9. 143 mls/hr IV .Q24H [facility] Rx#:[id number] fentaNYL (PF) 2,500 mcg 132.011 233.067 In Sodium Chloride 0.9% 200 ml @ 0.5 MCG/KG/HR 4. 6 mls/hr IV .Q24H [facility] Rx# :[id number] propofoL 1,000 mg In 300.000 Empty Bag 1 bag @ Titrate IV .Q0M [facility] Rx#: [id number] propofoL 1,000 mg In 399.742 211.833 Empty Bag 1 bag @ Titrate IV .Q0M [facility] Rx#: [id number] Tube Feeding 130 110 60 Other 60 90 60 Output: Chest Tube Drainage 10 Chest Tube Right 10 Thora-Vent Right Upper 0 Anterior Chest Urine 2530 260 1098 Other: Voiding Method Indwelling Catheter Indwelling Catheter Indwelling Catheter ABP, PAP, CO, CI - Last Documented Arterial Blood Pressure 170/67 - Exam Physical Exam: Revealed a 61-year-old female in no distress. Intubated, sedated, not in distress. Head: Atraumatic, normocephalic PEG tube is intact. Tracheostomy is about the same. HEENT:[Neck is supple.] [No neck masses.] [No thyromegaly.] [No JVD.] Chest: [Symmetrical chest expansion crackles and rhonchi at the bases. Chest tubes were noted, and another chest tube was added today. Cardiac Exam: [Distant S1 and S2, no S3 gallop. No murmur. Abdomen: [Soft, nontender, no megaly, no rebound, no guarding, normal bowel sounds.] Extremities: [No clubbing, trace of bipedal edema, no cyanosis.] Good pulses bilaterally. Neurological Exam: Sedated, could not assess. Patient does not respond to any stimuli. Psychiatric: Cannot assess patient is as noted above not responding to any stimuli. Skin: No rashes. - Labs CBC & Chem 7: 10/29/21 03:50 10/29/21 03:50 Labs: Abnormal Lab Results - Last 24 Hours (Table) 0210/29/21 10/29/21 Range/Units 17:41 00:00 03:50 RBC 3.23 L (3.80-5.40) m/uL Hgb 9.1 L (11.4-16.0) gm/dL Hct 29.9 L (34.0-46.0) % MCHC 30.5 L (31.0-37.0) g/dL RDW 16.0 H (11.5-15.5) % ABG pCO2 (35-45) mmHg ABG HCO3 (21-25) mmol/L Potassium (3.5-5.1) mmol/L Carbon Dioxide (22-30) mmol/L BUN (7-17) mg/dL Creatinine (0.52-1.04) mg/dL POC Glucose (mg/dL) 157 H 111 H (75-99) mg/dL Calcium (8.4-10.2) mg/dL 10/29/21 10/29/21 10/29/21 Range/Units 03:50 05:21 11:29 RBC (3.80-5.40) m/uL Hgb (11.4-16.0) gm/dL Hct (34.0-46.0) % MCHC (31.0-37.0) g/dL RDW (11.5-15.5) % ABG pCO2 57 H (35-45) mmHg ABG HCO3 39 H (21-25) mmol/L Potassium 2.8 L (3.5-5.1) mmol/L Carbon Dioxide 35 H (22-30) mmol/L BUN 21 H (7-17) mg/dL Creatinine 0.36 L (0.52-1.04) mg/dL POC Glucose (mg/dL) 116 H (75-99) mg/dL Calcium 8.0 L (8.4-10.2) mg/dL Assessment and Plan Assessment: Impression: Acute hypoxic respiratory failure secondary to COVID-19 pneumonia and complicated with ARDS. Patient was intubated on 09/25/2021. Status post tracheostomy and PEG tube placement. 10/14/2021. Acute deep vein thrombosis, on Eliquis. Bilateral pneumothoraces requiring bilateral chest tube placement. However since then the left-sided chest tube was removed, right-sided chest tube had to be placed again by Dr. Harris,I placed a right sided thoravent on 10/25/21, status post chest tube placement again on 10/29/2021, and the removal of thoravent on 10/29. Acute COVID-19 pneumonia Subcutaneous emphysema, resolved. Prior history of DVT History of fibromyalgia Degenerative joint disease Mildly elevated liver enzymes secondary to cardona virus infection. Nonsustained ventricular tachycardia, resolved Recommendation: Updated family on her condition today. And the fact we had to place another chest tube on the right side today. Patient is not ready for any form of weaning, however will try to cut down on the sedation as much as possible. Continue ventilatory support. Tracheostomy care Continue Eliquis at 5 mg twice a day. Continue nutritional support/enteral feeding Continue GI and DVT prophylaxis, patient is on Protonix Continue COVID-19 cocktail. Including Decadron. Check pro calcitonin level and empirically start the patient on Levaquin, sputum cultures were ordered. This was ordered mostly because of the low-grade fever noted and a bit of leukocytosis is noted Patient is critically ill. Family meeting was done today. Critical care time is over 30 minutes. Time with Patient: Greater than 30
--- NOTE | 2021-10-29 14:30 | P.PN ---
Subjective Progress Note Date: 10/29/21 This is a 61-year-old female who was recently admitted with acute COVID-19 pneumonia with acute COVID-19 bilateral interstitial pneumonia and also with transaminitis and being closely monitored. Patient remains in the ICU and currently intubated and sedated with an FiO2 of 70% and PEEP is 18. 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 Patient did have a venous Doppler study done recently which showed left leg DVT and patient is maintained on Eliquis will continue. Patient also continues on empiric antibiotics and awaiting for sputum culture finalized. Patient was started on IV cefepime and will continue. Patient is also continued on oral dexamethasone along with vitamin and zinc supplements and will continue. Patient with some mild volume overload and given a dose of IV Lasix push today. 09/29/2021 Patient is seen and evaluated this morning continues to be closely monitored in the ICU and continues to be on mechanical ventilation and sedated. FiO2 was increased at 80% with a PEEP of 18 and oxygen saturations between 87-91%. Patient developing subcutaneous emphysema in the neck and chest wall area and chest x-ray today shows bilateral multifocal and confluent opacification is redemonstrated consistent with COVID-19 infection with a new small left apical pneumothorax estimated under 5% with new pneumomediastinum and recurrent overlying subcutaneous emphysema noted. Patient is white blood count mildly elevated at 16.1 and is continued on oral dexamethasone along with oral eliquis for anticoagulation. Patient continues to be on IV cefepime and blood and sputum cultures are negative thus far. 09/30/2021 Patient is seen today continues to be closely monitored in the ICU with multiple medical consultations following. Patient continues to be mechanically intubated and sedated with continued subcutaneous emphysema noted. Chest xray shows a trace left apical pneumothorax that is minimally smaller 7mm versus 1cm previously, extensive bilateral subcutaneous emphysema persists and diffuse interstitial changes and bilateral patchy opacities persist with slight improvement in aeration in the lower lungs. Per nursing staff corbin was clogged with copious amounts of white discharge and will add diflucan and corbin catheter has been changed and draining adequately. Patient continues on IV cefepime. Patient tolerating tube feeds and will continue. 10/01/2021 Patient is seen and evaluated in follow up this morning and continues to be closely monitored. Multiple medical consultations following and patient c ontinues to be on mechanical vent and sedated. Patient continues on IV Cefepime and diflucan. Patient chest xray today shows stable extensive subcutaneous emphysema, no pneumothorax, and patchy bilateral lung infiltrates remain present. INflammatory markers trending down. 10/04/2021 Patient is seen in follow-up continues to be closely monitored in the ICU. Patient remains on mechanical vent with an FI02 of 65% and peep is 18. Weaning trials being attempted with pulmonary security representative following closely. Patient continues with extensive subq emphysema noted on exam. 10/05/2021 Patient Is seen and evaluated this morning with continued attempts at weaning and continues on mechanical vent and intubated with pulmonary security representative following closely. Patient remains on Eliquis which will be held as surgery Dr. Nelson was consulted for possible PEG and trach tube placement for unsuccessful attempts at weaning from ventilation and prolonged hospitalization on mechanical vent. Chest x-ray today shows recurrent tiny left apical pneumothorax estimated under 5% with worsening overlying subcutaneous emphysema and again pneumomediastinum redemonstrated with multifocal confluent opacification's redemonstrated consistent with COVID-19 infection and/or arts are redemonstrated with no significant change from one day previously. Patient continues on FiO2 of 65% and PEEP was weaned down to 14 today. IV cefepime discontinued. 10/06/2021 Patient is seen in follow-up this morning per nursing staff patient had multiple runs of ectopy an irregular heart rate and rhythms with PVCs and cardiology consulted. Patient was placed on lidocaine drip and was originally on eliquis is currently on hold for possible PEG and trach placement with general surgery following. Patient had difficulty maintaining oxygen saturations and FiO2 was increased to 100% and PEEP continues at 14. Multiple medical consultations following and patient continues on oral steroids along with vitamin and zinc supplements along with fluconazole. Patient being started on IV Lasix daily and recommend close monitoring of electrolytes and kidney functions. 10/07/2021 Patient is seen in follow-up this morning continues to be monitored closely in the ICU with multiple medical consultations following. Patient is currently on mechanical vent with an FiO2 of 80% and PEEP is 16. General surgery also following for possible PEG and trach placement and will need to discuss with surgery about when this will occur. Patient remains on fluconazole. She also continues on vitamin and zinc supplements along with oral dexamethasone, clevidipine, Nimbex, IV Lasix, fentanyl and propofol and is off norepinephrine. Chest x-ray shows stable bilateral lung infiltrates. 10/08/2021 Patient is seen this morning continues to be on mechanical vent with an FiO2 of 85% and PEEP of 16. Patient continues with extensive subcutaneous emphysema and plans are for possible PEG and trach placement although on hold until possibly next week once more stable. Patient continues on Cleviprex along with fentanyl and propofol and is receiving IV Lasix daily. Patient also continues on lidocaine drip which is currently on hold and cardiology is following closely. Anticoagulant was resumed for now again until more stable to undergo PEG and trach placement. Chest x-ray today shows persistent bilateral multifocal and confluent increased opacification is with persistent overlying subcutaneous emphysema noted in pneumomediastinum is again redemonstrated. 10/09/2021 Patient evaluated today in ICU mechanical ventilation with FiO2 of 80%. Chest x-ray this morning shows similar multifocal airspace opacities and stable support lines and tubes. Similar subcutaneous emphysema scattered throughout the visualized thorax. PEG and trach plan for next week once more stable. Current meds include Cleviprex, Nimbex, fentanyl, propofol. She is receiving IV fluconazole, as well as IV Lasix. Levophed and Lidocaine gtt;s are on hold. Positive bowel sounds. Current vitals afebrile, heart rate 71, blood pressure 135/60 and oxygen saturation is 93%. Respirations 30. Labs today, white count 17, hemoglobin 11.6, sodium 139, potassium 3.8, BUN 34, creatinine 0.91, CO2 33, calcium 8.7, ALT 54, albumin 2.8 with blood sugars in the 100s. 10/10/2021 Patient evaluated today in the ICU on the mechanical VENT with fio2 of 100%. Positive bowel movement today, Stage 2 pressure ulcer on coccyx per RN, optifoam ordered. Per RN they were unable to patient as she was desaturating. They're unable to wean Fi02 currently as she does desaturate with any time of movement. She was lying more on her right side during evaluation and pulse ox was dropping into high 80s she was being repositioned by nurses. Plan is to PEG/TRACH patient tomorrow. Last family update was 4 days ago. We will call and discuss case today. Patient is afebrile, heart rate 84, respirations 30, blood pressure 141/55, 92% oxygen saturation on 100% Fi02, which was increased today up from 70 Fi02%. Labs today show WBC of 15.6, hgbl 10.7, sodium 138, potassium 3.9, chloride 100, CO2 37, glucose 117, calcium 8.2. Chest xray today shows pneumonia, ARDS. 10/11/2021 Patient is seen and evaluated in follow-up this morning continues to be closely monitored in the ICU and patient is continued on FiO2 of 90% and PEEP is 16 with multiple medical consultations following. Chest x-ray today shows new left- sided pneumothorax estimated 10-20% with overlying subcutaneous emphysema and pneumomediastinum redemonstrated with bilateral multifocal and confluent op acification's redemonstrated consistent with COVID-19 infection and/or arts and no significant change from one day previous. Patient is status post left chest tube insertion with pulmonary security representative. Cardiology following and patient is off lidocaine drip and maintaining sinus rhythm. Patient also continues on vitamin and zinc supplements along with oral dexamethasone and patient continues on IV Lasix 40 mg daily. Patient also continues off norepinephrine and is currently maintained on IV cefepime along with fluconazole. General surgery following as well and plan is for peg and trach placement in the am 10/12/2021 Patient is seen in the ICU this morning continues to be closely monitored by multiple medical consultations. Patient was scheduled for PEG and trach placement with general surgery Dr. Nelson today although canceled as patient became hypotensive requiring Levophed along with acute blood loss anemia and hemoglobin dropped to 6.5 this morning requiring 1 unit of PRBC. Patient continues with left chest tube with pneumothorax and chest x-ray today shows the jahaira is difficult to clearly identify on the present exam and the ET tube may be approximately 1 cm from the jahaira and there are bilateral chest tubes present with continued diffuse interstitial opacification is and more focal bibasilar opacification is with subcutaneous emphysema persists along the upper chest with slight improvement on the left. No appreciable pneumothorax noted. Patient having worsening right pleural effusion last night and received a right- sided chest tube with pulmonary security representative. FiO2 is 90% and PEEP of 16. Again overall prognosis remains extremely poor and guarded. 10/13/2021 Patient is seen in follow-up this morning in the ICU with multiple medical consultations following. Lengthy discussion was had with pulmonary security representative and family members and would like to continue with full CODE STATUS and plan is in place for PEG tube and tracheostomy placement tomorrow. Anticoagulant on hold and Dr. Nelson plans for surgery tomorrow. Patient continues on oral dexamethasone along with IV cefepime, vitamin and zinc supplements. Patient also continues on Cleviprex and Nimbex. Patient also continues on fentanyl and propofol and will continue. Chest x-ray today shows stable portable chest with bilateral chest tubes without sizable pneumothorax identified and continued subcutaneous air persists with persistent interstitial changes bilaterally with airspace disease in the bilateral lung bases that are unchanged. FiO2 is 60% and PEEP of 16. 10/14/2021 Patient is seen and evaluated in the ICU being closely monitored with multiple medical consultations following. at the bedside today and had detailed discussion with overall prognosis. Plan is to proceed with PEG tube and tracheostomy placement with surgery Dr. Nelson today and anticoagulant continues to be on hold for this procedure. Patient continues on mechanical ventilation with an FiO2 of 70% and PEEP of 16. Chest x-ray today shows improving infiltrate with bibasilar residual and bilateral chest tubes remain present with no pneumothorax evident on either side and again subcutaneous emphysema is noted. 10/15/2021 Patient is seen in the ICU being closely monitored. Patient is status post PEG and trach placement yesterday. Chest x-ray today shows bilateral patchy lung infiltrates greater at the right base with diffuse increased lung markings and bilateral chest tubes remain present and subcutaneous emphysema on the right is diminished. Patient continues with an FI02 of 60 and peep is 16. To resume tube feeds per surgery. Patient continues on norepinephrine and sedation. Patient is receiving IV lasix daily. 10/16/2021 Patient is currently in the MICU and remains on ventilator. Status post tracheostomy and PEG tube placement on 10/14/2021. Patient is sedated and paralyzed. Also on Cleviprex. Chest x-ray showed no acute cardiopulmonary disease with no interval changes. Laboratory data showed WBC 16.9 hemoglobin 8.9 and platelets 278 BUN 19 and creatinine 0.5 and calcium 8.1 patient is being continued on dexamethasone 6 mg daily, Lasix 40 mg IV daily and multivitamins and anticoagulation with Eliquis. Pulmonary and general surgery is on board. 10/17/2021 Patient is in the MICU. Remains on the current ventilator via tracheostomy. Status post tracheostomy and PEG tube placement on 10/14/2021. Sedated and paralyzed and also on fentanyl drip. Currently on assist control with tidal volume of 420, FiO2 80% and PEEP of 16. Respiratory of 30. Chest x-ray showed no interval change in acute cardiopulmonary disease Laboratory data showed WBC 15.8 hemoglobin 8.2 and platelets 271 Sodium 136 potassium 3.1 chloride 100 bicarb is 32 BUN 21 creatinine 0.48 and albumin 2.3 Patient is being continued on Lasix IV, dexamethasone and anticoagulation with Eliquis. 10/18/2021 Patient is seen in follow-up and continues in the ICU with multiple medical consultations following. Patient continues on mechanical vent with an FI02 of 70% and peep is 16. Chest xray shows overall stable exam with interstitial changes and bilateral patchy infiltrates with right greater than left and greater at the bases with bilateral chest tubes noted. no appreciable pneumothorax. Patient continues on propofol and fentanyl along with cleviprex and rocuronium. Eliquis has been resumed. Potassium is 3.3 and will be replaced per protocol. Patient also continues to receive IV lasix daily. 10/19/2021 Patient is seen this morning and continues to be in the ICU with multiple medical consultations following. Patient continues with bilateral chest tubes and remains on mechanical ventilation with an FiO2 of 65% and PEEP is 16. Chest x-ray today shows Bilateral multifocal and confluent opacification greatest in the lower lungs consistent with COVID-19 infection and/or ARDS all redemon strated with no significant change from one day earlier and continued bilateral chest tubes without pneumothorax redemonstrated. 10/20/2021 Patient continues to be in the ICU under close critical monitoring with multiple medical consultations following. Patient continues with bilateral chest tubes although per nursing staff may possibly discontinued today. Chest x-ray today shows stable portable chest with no change in scattered mixed interstitial and alveolar infiltrates. Patient remains on mechanical ventilation via tracheostomy with an FiO2 of 55% and PEEP is 15. Patient continues on Cleviprex along with rocuronium and sedation. 10/21/2021 Patient continues in the MICU being closely monitored. Chest tubes were removed today and chest xray stable with interstitial changes and basilar ground glass, that is similar to previous with slight improvement. Patient continues on mechanical vent with an FI02 of 70% and peep is 14. Patient remains sedated and per nursing staff working on weaning paralytics. Patient continued on rocuronium. Patient is tolerating tube feeds and also continues on IV lasix daily with generalized edema noted throughout. 10/22/2021 Patient is currently MICU. Patient was taken off paralytic and chest tubes yesterday. Continued on pressure support with PEEP of 13. 88 this morning patient again desaturated. Patient became hypotensive and patient was started on norepinephrine. Chest x-ray showed large pneumothorax on the right. Right chest tube was reinserted. Patient is on pressure control. Remains sedated and mechanically ventilated. Laboratory data showed WBC 13.7 hemoglobin 7.7 and platelets 314 Sodium 140 potassium 3.0 chloride 102 bicarb is 37 BUN 19 and creatinine 0.44 and calcium 8.1 Patient is being continued dexamethasone multivitamins and anticoagulation with Eliquis. Patient is also on IV Lasix. Potassium will be replaced. 10/23/2021 Patient is currently MICU. Patient is on mechanical ventilator via trach tube. Patient developed right-sided tension pneumothorax. Again patient had issues with pneumothorax around 10 PM yesterday. Chest tube has to be replaced. Patient is also requiring pressor support. Off pressors this morning. On pressure support. PEEP of 13 and FiO2 100%. Laboratory data showed WBC 13.7 hemoglobin 7.7 and platelets 314 Sodium 140 potassium 3.0 chloride 102 bicarb is 37 BUN 19 and creatinine 0.44 and calcium 8.1 cultures have been negative. Patient is being current on dexamethasone, Eliquis and also IV Lasix 40 mg daily. 10/24/2021 Patient is currently in the MICU. Currently on mechanical ventilator via tracheal tube. Continue propofol and fentanyl. Remains pressure support with PEEP of 13 FiO2 reduced to 70%. Chest x-ray showed bilateral multifocal and confluent opacities consistent with COVID-19 infection and ARDS are redemonstrated and stable. Right-sided chest tube with small apical pneumothorax estimated 10 to 15% improved from 1 day earlier. Pneumo mediastinum noted. Laboratory data showed WBC 14.2 hemoglobin 7.1 and platelets 317 Sodium 140 potassium 3.2 chloride 104 bicarb is 38 BUN 20 and creatinine 0.46 and calcium 7.8. Patient is being continued on dexamethasone, Eliquis and also on IV Lasix. Currently on multivitamins. 10/25/2021 Patient is seen this morning continues to be in the ICU with close monitoring. Patient continues on mechanical vent via tracheostomy and FiO2 of 65% with a PEEP of 13. Chest x-ray this morning shows right-sided chest tube in place with continued small to moderate right sided pneumothorax slightly smaller in the interval, apical component measuring 2.3 cm versus 2.8 cm previously along with interstitial opacities persist in pneumonitis versus mild pulmonary edema, status post right side thoravent place this morning with pulmonary security representative showing resolution of the apical and lateral components of the pneumothorax and 5 mm basilar components remain. Patient requiring more oxygen supplementation and FiO2 being increased to 75%. Hemoglobin found to be 6.3 and awaiting to receive a unit of PRBC. Patient also continues on Nimbex along with Cleviprex, oral dexamethasone, vitamin and zinc supplements along with oral eliquis, along with fentanyl and propofol for sedation. 10/26/2021 Patient is seen in follow-up today continues on mechanical ventilation with an FiO2 of 75% which is currently titrating down to 65% per nursing staff with an FiO2 of 13. Patient continues on Cleviprex and Nimbex and attempts at weaning although not tolerating well. Patient also continues on fentanyl and propofol for sedation. Chest x-ray today shows a right-sided thoracic vent and chest to both present and overlying appropriate positions with minimal right-sided apical pneumothorax present and persistent bilateral interstitial groundglass opacities noted with no evident pleural effusion to correlate for pneumonia. Hemoglobin improved to 8.7 today after 1 unit of PRBC. Will continue to monitor closely. 10/27/2021 Patient is seen today continues to be closely monitored in the ICU on mechanical vent via tracheostomy with an FiO2 of 70% and PEEP is 13. Patient continues on IV Lasix daily along with propofol and fentanyl for sedation. Patient also continues to be on Cleviprex as blood pressure is elevated. Per nursing staff attempts at weaning some sedation although patient not tolerating well. Patient continues with chest tubes on the right and there is an air leak noted and also continues with thoravent on the right. Chest x-ray today shows enlarging right- sided pneumothorax estimated at 15% with no significant change in interstitial infiltrate seen bilaterally. 10/28/2021 Patient is seen in the ICU this morning continues on mechanical ventilation with a FI02 of 85% and peep is 13. Patient continues on propofol for sedation along with Nimbex and also patient is on norepinephrine with hypotension at times. Chest xray today shows continued diffuse interstitial infiltrates with continued right side pneumothorax slightly larger in the interval, apical component measu ring 1.9cm versus 1.5. Potassium was found to be 3.0 and being replaced. 10/29/2021 Patient is seen and evaluated today and continues to be closely monitored in the ICU. Multiple medical consultations following. Patient continues on mechanical ventilation via tracheostomy and also PEG tube with tube feedings and tolerating. FiO2 is currently 60% with a PEEP of 14. Cleviprex is currently off and patient continues on decreased doses of sedation. Patient also continues on IV Levaquin and will continue. Patient is currently off of Levophed and Nimbex. Patient was continued on 40 mg of Lasix daily which is currently being increased to twice daily and will continue to monitor closely. Patient's potassium was found to be 2.8 today and being replaced per protocol. Chest x-ray this morning showed a continued right-sided pneumothorax increasing in size currently estimated at 40% and emergent chest tube placement on the right was performed by pulmonary security representative and subsequent removal of right side thoravent. Repeat chest x-ray showed a diminished right sided pneumothorax on the right and increasing diffuse infiltrates greater on the right. Review of systems: Unable to obtain as patient is mechanically intubated and sedated Labs: WBC is 7.8, hgb 9.1, plt 329, sodium 140, potassium 2.8, bun 21, creatinine 0.36, calcium 8.0 Active Medications Apixaban (Apixaban 5 Mg Tab) 5 mg PO BID [facility]; Protocol Last Admin: 10/29/21 10:14 Dose: 5 mg Documented by: Artificial Tears (Artificial Tears-Hypromellose Drops 15 Ml Btl) 2 drops BOTH EYES QID [facility] Last Admin: 10/29/21 12:24 Dose: 2 drops Documented by: Ascorbic Acid (Ascorbic Acid 500 Mg Tab) 500 mg PO BID [facility] Last Admin: 10/29/21 10:14 Dose: 500 mg Documented by: Dexamethasone (Dexamethasone 2 Mg Tab) 4 mg PO DAILY [facility] Last Admin: 10/29/21 10:15 Dose: 4 mg Documented by: Docusate Sodium (Docusate Oral Soln 100 Mg/10 Ml Cup) 100 mg PO DAILY PRN PRN Reason: Constipation Last Admin: 10/18/21 15:53 Dose: 100 mg Documented by: Ergocalciferol (Ergocalciferol 1,250 Mcg (50,000 Iu) Capsule) 1,250 mcg PO MORRIS [facility] Last Admin: 10/24/21 09:11 Dose: Not Given Documented by: Furosemide (Furosemide 10 Mg/Ml 4 Ml Vial) 40 mg IV DAILY [facility] Last Admin: 10/29/21 10:15 Dose: 40 mg Documented by: Sodium Chloride (Saline 0.9%) 1,000 mls @ 20 mls/hr IV .Q24H [facility] Last Admin: 10/29/21 05:45 Dose: Not Given Documented by: Fentanyl Citrate 2,500 mcg/ (Sodium Chloride) 250 mls @ 4.6 mls/hr IV .Q24H [facility]; Protocol Last Admin: 10/29/21 04:23 Dose: 2 mcg/kg/hr, 18.4 mls/hr Documented by: Clevidipine 25 mg/ IV Solution 50 mls @ 2 mls/hr IV .Q24H [facility]; Protocol Last Titration: 10/28/21 19:00 Dose: 0 mg/hr, 0 mls/hr Documented by: Norepinephrine Bitartrate 8 mg (/ Sodium Chloride) 258 mls @ 9.143 mls/hr IV .Q24H [facility]; Protocol Last Admin: 10/29/21 08:48 Dose: Not Given Documented by: Propofol 1,000 mg/ IV Solution 100 mls @ 0 mls/hr IV .Q0M [facility]; Protocol Last Titration: 10/29/21 12:23 Dose: 30 mcg/kg/min, 16.74 mls/hr Documented by: Levofloxacin 500 mg/ IV (Solution) 100 mls @ 100 mls/hr IVPB Q24H [facility] Last Admin: 10/29/21 10:15 Dose: 100 mls/hr Documented by: Insulin Aspart (Insulin Aspart (Novolog) 100 Unit/Ml Vial) 0 unit SQ Q6HR [facility]; Protocol Last Admin: 10/29/21 11:40 Dose: Not Given Documented by: Miscellaneous Information (Pneumonia Protocol Utilized 1 Each Misc) 1 each PO ONCE PRN PRN Reason: Per Protocol Miscellaneous Information (Potassium Replacement Protocol 1 Each Misc) 1 each MISCELLANE DAILY PRN; Protocol PRN Reason: Per Protocol Naloxone HCl (Naloxone 0.4 Mg/Ml 1 Ml Vial) 0.2 mg IV Q2M PRN PRN Reason: Opioid Reversal Pantoprazole Sodium (Pantoprazole 40 Mg/10 Ml Vial) 40 mg IV DAILY [facility] Last Admin: 10/29/21 10:15 Dose: 40 mg Documented by: Potassium Bicarbonate (Potassium Bicarbonate/Cit Ac 20 Meq Tablet.Eff) 20 meq PO BID [facility] Quetiapine Fumarate (Quetiapine 25 Mg Tab) 25 mg PO BID [facility] Last Admin: 10/29/21 10:15 Dose: 25 mg Documented by: Zinc Sulfate (Zinc Sulfate 220 Mg Cap) 220 mg PO DAILY [facility] Last Admin: 10/29/21 10:14 Dose: 220 mg Documented by: Physical Exam: Gen: This is a 61-year-old female currently sedated and intubated. mechanical ventilation Fio2 increased today to 60% with a PEEP of 14. Temp is 98F, pulse is 68, respirations are 26, blood pressure arterial is 129 were 44, oxygen saturation is 92% on 60% FiO2. HEENT: Head is atraumatic, normocephalic. Pupils equal, round. Sclerae is anicteric. tracheostomy noted NECK: Supple. No JVD. No lymphadenopathy. No thyromegaly. tracheostomy noted LUNGS: Diminished breath sounds bilaterally with coarse rhonchi and crackles noted. No intercostal retractions. Right side chest tube and thoravent noted HEART: S1, S2 are muffled ABDOMEN: Soft. Obese. Bowel sounds are present. No masses. No tenderness. peg tube noted. EXTREMITIES: No pedal edema. No calf tenderness. generalized edema noted NEUROLOGICAL: Patient is currently intubated and sedated Assessment: Acute COVID-19 infection with acute COVID-19 bilateral interstitial pneumonia with hypoxic hypercarbic respiratory failure on mechanical vent status post trach and peg tube placement on 10/14/2021 Worsening right side pneumothorax status post chest tube placement and thoravent removal on 10/29/2021 bilateral pneumothoraces with chest tube placement and status post removal of chest tubes 2.3 Status post reinsertion of chest tubes on 10/22/2021 due to a tension pneumothorax on the right, status post thoraVent placement as well on the right on 10/25/2021, worsening pneumothorax on the right with continued air leak of the chest tube Acute blood loss anemia secondary to bilateral chest tube placements, possible hypovolemic shock requiring pressor support, currently hypertensive and off pressors, currently improved Non-sustained ventricular tachycardia, currently sinus Acute left leg deep vein thrombosis Acute respiratory acidosis Primary hypercoagulable state and factor V deficiency Mild transaminitis, possibly secondary to COVID-19 History of degenerative joint disease History of fibromyalgia Elevated inflammatory markers of COVID-19 Obesity with a body mass index of 38.1 Full code Plan: Recommend to continue with current medications and follow along closely with multiple medical consultations. Prognosis remains extremely poor and guarded with multiple complex medical issues noted. Patient continues on mechanical ventilation via tracheostomy and FiO2 60% with PEEP of 13. Recommend to continue with current medications. Currently attempting to wean some sedation and decrease the dose of fentanyl and propofol to better assess mentation although patient does not tolerate well. Patient continues with right side chest tube and urgently had to replace the chest tube this morning for worsening pneumothorax as noted on chest x-ray and also thoravent on the right was removed. Patient continues off Nimbex since yesterday. Recommend repeat labs and chest x-ray in a.m. and continued close monitoring. Again due to multiple complex medical issues overall prognosis is extremely poor and quite guarded. Objective - Vital Signs Vital signs: Vital Signs Temp 98.0 F 10/29/21 08:00 Pulse 68 10/29/21 08:00 Resp 26 H 10/29/21 08:00 BP 120/65 10/28/21 12:00 Pulse Ox 92 L 10/29/21 08:00 Intake & Output 10/28/21 10/29/21 10/29/21 18:59 06:59 18:59 Intake Total 747.867 7342.295 96 Output Total 2540 260 58 Balance -1548.088 951.295 38 Intake: IV 276 253 46 0.9 Normal Saline @ 20mL/ 240 220 40 hr pressure bag 36 33 6 Intake, IV Titration 525.912 758.295 Amount Clevidipine Butyrate 25 81.467 34.667 mg In Empty Bag 1 bag @ 1 MG/HR 2 mls/hr IV .Q24H [facility] Rx#:[id number] Norepinephrine 8 mg In 12.434 90.819 Sodium Chloride 0.9% 250 ml @ 0.05 MCG/KG/MIN 9. 143 mls/hr IV .Q24H [facility] Rx#:[id number] fentaNYL (PF) 2,500 mcg 132.011 233.067 In Sodium Chloride 0.9% 200 ml @ 0.5 MCG/KG/HR 4. 6 mls/hr IV .Q24H [facility] Rx# :[id number] propofoL 1,000 mg In 300.000 Empty Bag 1 bag @ Titrate IV .Q0M [facility] Rx#: [id number] propofoL 1,000 mg In 399.742 Empty Bag 1 bag @ Titrate IV .Q0M [facility] Rx#: [id number] Tube Feeding 130 110 20 Other 60 90 30 Output: Chest Tube Drainage 10 Chest Tube Right 10 Thora-Vent Right Upper 0 Anterior Chest Urine 2530 260 58 Other: Voiding Method Indwelling Catheter Indwelling Catheter ABP, PAP, CO, CI - Last Documented Arterial Blood Pressure 129/44 - Labs CBC & Chem 7: 10/29/21 03:50 10/29/21 13:00 Labs: Abnormal Lab Results - Last 24 Hours (Table) 10/28/21 10/28/21 10/28/21 Range/Units 10:03 11:27 17:41 RBC (3.80-5.40) m/uL Hgb (11.4-16.0) gm/dL Hct (34.0-46.0) % MCHC (31.0-37.0) g/dL RDW (11.5-15.5) % ABG pH 7.51 H (7.35-7.45) ABG pCO2 (35-45) mmHg ABG pO2 72 L (83-108) mmHg ABG HCO3 34 H (21-25) mmol/L ABG Total CO2 36 H (19-24) mmol/L Potassium (3.5-5.1) mmol/L Carbon Dioxide (22-30) mmol/L BUN (7-17) mg/dL Creatinine (0.52-1.04) mg/dL POC Glucose (mg/dL) 161 H 157 H (75-99) mg/dL Calcium (8.4-10.2) mg/dL 10/29/21 10/29/21 10/29/21 Range/Units 00:00 03:50 03:50 RBC 3.23 L (3.80-5.40) m/uL Hgb 9.1 L (11.4-16.0) gm/dL Hct 29.9 L (34.0-46.0) % MCHC 30.5 L (31.0-37.0) g/dL RDW 16.0 H (11.5-15.5) % ABG pH (7.35-7.45) ABG pCO2 (35-45) mmHg ABG pO2 (83-108) mmHg ABG HCO3 (21-25) mmol/L ABG Total CO2 (19-24) mmol/L Potassium 2.8 L (3.5-5.1) mmol/L Carbon Dioxide 35 H (22-30) mmol/L BUN 21 H (7-17) mg/dL Creatinine 0.36 L (0.52-1.04) mg/dL POC Glucose (mg/dL) 111 H (75-99) mg/dL Calcium 8.0 L (8.4-10.2) mg/dL 10/29/21 Range/Units 05:21 RBC (3.80-5.40) m/uL Hgb (11.4-16.0) gm/dL Hct (34.0-46.0) % MCHC (31.0-37.0) g/dL RDW (11.5-15.5) % ABG pH (7.35-7.45) ABG pCO2 57 H (35-45) mmHg ABG pO2 (83-108) mmHg ABG HCO3 39 H (21-25) mmol/L ABG Total CO2 (19-24) mmol/L Potassium (3.5-5.1) mmol/L Carbon Dioxide (22-30) mmol/L BUN (7-17) mg/dL Creatinine (0.52-1.04) mg/dL POC Glucose (mg/dL) (75-99) mg/dL Calcium (8.4-10.2) mg/dL
[2021-10-29] MEDS ORDERED: POTASSIUM BICARBONATE/CIT AC 20 MEQ TABLET.EFF NG-TUBE SCH (15:00)
[2021-10-29 17:52] LABS: Glucose,Whole Blood 163 mg/dL (75-99)
[2021-10-29] MEDS: POTASSIUM BICARBONATE/CIT AC 20 MEQ TABLET.EFF PO SCH (20:47)
[2021-10-29 23:50] LABS: Glucose,Whole Blood 125 mg/dL (75-99)
[2021-10-30] MEDS: CLEVIDIPINE BUTYRATE 25 MG in EMPTY BAG 1 BAG IV SCH ×2 (00:48→11:43)
[2021-10-30 05:38] LABS: Anisocytosis Slight; HCT 34.3 % (34.0-46.0); HGB 10.5 gm/dL (11.4-16.0); Hypochromasia Marked; MCH 28.1 pg (25.0-35.0); MCHC 30.6 g/dL (31.0-37.0); Mean Platelet Volume 7.9; Platelet Count 379 k/uL (150-450); Poikilocytosis Slight; RBC 3.72 m/uL (3.80-5.40); RDW 16.1 % (11.5-15.5); WBC 8.9 k/uL (3.8-10.6)
[2021-10-30 05:48] LABS: African American GFR (CKD) >90 (>60 ml/min/1.73 sqM); Anion Gap 5 mmol/L; Blood Urea Nitrogen 18 mg/dL (7-17); Calcium 8.5 mg/dL (8.4-10.2); Carbon Dioxide 34 mmol/L (22-30); Chloride 101 mmol/L (98-107); Glucose 94 mg/dL (74-99); Non-African American GFR(CKD) >90 (>60 ml/min/1.73 sqM); Potassium 3.1 mmol/L (3.5-5.1); Sodium 140 mmol/L (137-145)
[2021-10-30 05:49] LABS: Glucose,Whole Blood 85 mg/dL (75-99)
[2021-10-30] MEDS: SODIUM CHLORIDE 0.9% 1,000 ML IV SCH (05:57)
[2021-10-30] MEDS: INSULIN ASPART (NovoLOG) 100 UNIT/ML VIAL SQ SCH ×3 (05:59→18:44)
[2021-10-30 06:13] LABS: ABG Base Excess 13.4 mmol/L; ABG HCO3 37 mmol/L (21-25); ABG Oxygen Saturation 92.4 % (94-97); ABG PCO2 51 mmHg (35-45); ABG PH 7.47 (7.35-7.45); ABG PO2 65 mmHg (83-108); ABG TCO2 39 mmol/L (19-24); Allen Test Performed? Yes
[2021-10-30] MEDS: POTASSIUM BICARBONATE/CIT AC 20 MEQ TABLET.EFF NG-TUBE SCH ×2 (06:51→08:29)
[2021-10-30] MEDS: NOREPINEPHRINE 8 MG in SODIUM CHLORIDE 0.9% 250 ML IV SCH (07:36)
[2021-10-30] MEDS: ASCORBIC ACID 500 MG TAB PO SCH ×2 (08:29→20:15)
[2021-10-30] MEDS: APIXABAN 5 MG TAB PO SCH ×2 (08:29→20:15)
[2021-10-30] MEDS: POTASSIUM BICARBONATE/CIT AC 20 MEQ TABLET.EFF PO SCH ×2 (08:29→20:16)
[2021-10-30] MEDS: dexAMETHasone 2 MG TAB PO SCH (08:30)
[2021-10-30] MEDS: ZINC SULFATE 220 MG CAP PO SCH (08:30)
[2021-10-30] MEDS: LEVOFLOXACIN 500MG-D5W PMX 500 MG in DEXTROSE/WATER 1 100ML.BAG IVPB SCH (08:31)
[2021-10-30] MEDS: FUROSEMIDE 10 MG/ML 4 ML VIAL IV SCH ×2 (08:31→20:17)
[2021-10-30] MEDS: QUEtiapine 25 MG TAB PO SCH (08:31)
[2021-10-30] MEDS: PANTOPRAZOLE 40 MG/10 ML VIAL IV SCH (08:31)
[2021-10-30] MEDS: ARTIFICIAL TEARS-HYPROMELLOSE DROPS 15 ML BTL BOTH EYES SCH ×3 (08:32→18:43)
--- NOTE | 2021-10-30 08:43 | XR ---
EXAMINATION TYPE: XR chest 1V portable DATE OF EXAM: 10/30/2021 8:36 AM COMPARISON:Chest radiograph from two days prior. TECHNIQUE: XR chest 1V portable Frontal view of the chest. CLINICAL INDICATION:Female, 61 years old with history of covid pna; FINDINGS: Lungs/Pleura: Interval increase in right pneumothorax moderate in size scattered airspace opacities a re again seen. Pulmonary vascularity: Unremarkable. Heart/mediastinum: Cardiomediastinal silhouette is unremarkable. Musculoskeletal: No acute osseous pathology. There is fixation hardware in the lower cervical spine. Other findings: None Lines/Tubes: Tracheostomy cannula tip projecting over the trachea. Right thoracotomy tubes are present with a pneumothorax. Right-sided PICC line with distal tip at the cavoatrial junction. IMPRESSION: 1. Right thoracotomy tubes with persistent apical pneumothorax. Pneumothorax appears mildly larger on today's exam. 2. Persistent multifocal airspace opacities.
[2021-10-30] MEDS: fentaNYL (PF) 2,500 MCG in SODIUM CHLORIDE 0.9% 200 ML IV SCH ×2 (09:20→23:58)
--- NOTE | 2021-10-30 10:53 | P.PN ---
Subjective Progress Note Date: 10/30/21 Principal diagnosis: Acute hypoxic respiratory failure secondary to COVID-19 pneumonia 10/24/2021, the patient remains on a mechanical ventilator. This morning, she is sedated with a combination of propofol and fentanyl. Propofol is running at 45 mcg/kg per minute and the fentanyl is running at 1.5 mcg/kg/h. I have taken this patient off paralytics. Meanwhile, switch this patient a pressure control mode of mechanical ventilation at the rate of 26, pressure control of 22, FiO2 of 70% with a PEEP of 13. The chest x-ray from today showing a small right apical pneumothorax. Chest tube is in a good location. There are still persistent air leak and the chest tube. Tracheostomy tube is high in the trachea. Nevertheless, there is no air leaks. The patient continues to have diffuse bilateral pulmonary infiltrates more so in the right lower lobe. The blood gases from today shows a pH of 7.50 with a pCO2 of 47 and pO2 of 96 and this was on FiO2 of 70%. Otherwise, the patient remains hemodynamically stable. She remains on anticoagulation and the patient remains on Eliquis 5 mg by mouth twice a day.. The patient is also on Decadron as well as a 4 mg by mouth daily no other new complaints otherwise for now. The patient is receiving enteral feeding for nutritional support via PEG tube. She is currently on vital high protein at the rate of 10 mL an hour. The blood work from today shows a white cell count 14.2 with hemoglobin of 7.1 and a platelet count of 317. Sodium is at 140 with potassium level of 3.4 which is going to be replaced. BUN is at 20 with a creatinine of 0.4. Blood sugar is at 103. No other significant events overnight. No synovitis fluid overload. Overall fluid balance over the past 24 hours has been -1083 cc. Reevaluated today on 10/25/2021, patient remains in the ICU, intubated, mechanically ventilated. Patient is presently on pressure control mode of mechanical ventilation, pressure control of 18, TI of 0.9 FiO2 60% PEEP of 15. ABG showed a pO2 of 100 pCO2 of 58 pH of 7.41, however during my evaluation the patient was noted to desaturate and her chest x-ray was showing worsening right- sided pneumothorax, hence went ahead and placed a 13-Turkish thoravent in the right upper chest area at the level of the midclavicular line and third intercostal space. Follow-up chest x-ray showed complete reexpansion of the right lung, To the old chest tube in place, and connected both to pleural vacs. Patient is on fentanyl at 2.5 mcg/kg/h, is also on propofol at 50 and considering the patient was noted to have increased work of breathing and she was desaturating I recommended we place her back on Nimbex. Patient is rece iving vital Hb at 10 mL per hour. She is not requiring any pressors. Her peak airway pressure is 36 plateau pressure is 34. Her pressure control was increased from 18-22, and a PEEP was cut down to 13. Instructed the nurses to titrate FiO2 down while the patient is on Nimbex. Patient is noted to be awake, opens eyes, but does not follow any instructions. Hemoglobin today is 6.3, patient will receive at least a unit of packed RBCs. WBC count is 9.1. Electrolytes and renal profile are normal except for low potassium of 3.4. Chest x-ray post chest tube placement showed interval resolution of the apical and lateral pneumothorax. Reevaluated today on 10/26/2021, patient remains in the ICU, remains intubated mechanically ventilated, sedated and paralyzed. She is on pressure control mode of mechanical ventilation with a pressure control of 22 inspiratory time of 0.10 seconds. FiO2 60% PEEP of 13. ABG on 75% earlier showed a pO2 of 182 pCO2 of 53 pH of 7.44. Patient remains on multiple drips including Nimbex at 1.5 pg/kg/m, propofol at 50 mcg/kg/m, fentanyl 2 mcg/kg/h. IV fluid at 20 mL per hour. Peak airway pressure is 36 plateau pressure is 25. Patient remains on vital hpf at 10 mL per hour. Today I cut down the FiO2 to 50%. Chest x-ray showed excellent expansion of the right lung, right-sided chest tube and right sided thoravent are in the proper position, no evidence of air leak and the pleural VAC. And the right lung seems to be almost completely reexpanded. Very small tiny apical pneumothorax is noted. Today I'm planning to hold the Nimbex and hopefully maintain the patient on propofol and sentinel if possible. And I have no plans to remove any of the chest tubes at present. Chest x-ray continues show bilateral infiltrates consistent with COVID-19 pneumonia, nonetheless overall the chest x-ray is showing improvement. WBC count is 13.1 hemoglobin 8.7. A left was are normal renal profile is normal bicarb is 35 Reevaluated today on 10/27/2021, patient remains in the ICU, intubated and mechanically ventilated. She is on assist control rate of 26, pressure control 22, TI of 0.90 PEEP of 13 FiO2 70%. Continues to have a relatively elevated plateau pressure of 36 consistent with ARDS. Continues to have abnormal chest x-ray showing bilateral airspace disease, and a small right apical right-sided pneumothorax. Continues to have air leak in the right-sided chest tube, but none in the THORAVENT pleural VAC. ABG showed a pO2 of 53 pCO2 46 pH of 7.50 hence the FiO2 was increased from 65% to 70%. CBC is relatively normal WBC count is 9.1 hemoglobin is 9.2. Basic metabolic profile is normal, potassium is low being corrected. Patient remains on multiple drips including fentanyl 2 mcg/kg/h, propofol at 55 mcg/kg/m, she is on clevidipine 12 mg per hour, patient is off Nimbex since yesterday. IV fluids at KVO. Reevaluated today on 10/28/21, patient remains in the ICU, remains intubated and mechanically ventilated. She is on pressure control mode of mechanical ventilation, pressure control is set at 22, rate is 26, inspiratory time is 0.9, remains on FiO2 of 85% and PEEP of 13. Patient is sedated but not paralyzed, she is now on fentanyl at 1.5 and I increased the dose to 2 mcg/kg/m. I have also increased her propofol from 50-75. Patient remains on clevidipine to my milligrams per hour and she remains on enteral feeding using vital Hb at 10 mL per hour. CBC is relatively unremarkable hemoglobin is 9.1 electrolytes are nor mal except for low potassium of 3.0. Profile is normal. Chest x-ray continues to show bilateral airspace disease, and a small tiny right apical right-sided pneumothorax in spite of having a chest tube and a thoravent in place. Not much of a change noted in the last 24 hours, patient is basically about the same but seems to be a bit more agitated and restless as her sedation was increased. Reevaluated today on , patient remains in the ICU, intubated and mechanically ventilated. Chest x-ray early this morning showed 40% right-sided pneumothorax, hence went ahead and placed another chest tube a size 32 [place] chest tube, placed lateral to the previous chest tube, and the thoravent was removed from the upper chest. Chest x-ray showed significant improvement, and now early is noted in both chest tubes the new one and the old one. Patient is on pressure control mode of mechanical ventilation with a pressure control of 22, rate of 26, inspiratory time of 0.90, FiO2 60% PEEP 13. . CBC is relatively unremarkable, electrolytes are normal except for low potassium of 2.8. Patient is not requiring any pressors, she is not on Nimbex, but she is requiring propofol at propofol at 75 mcg/kg/m, and fentanyl 2 mcg/kg per hour. Patient is also receiving vital Hb at 10 mL per hour. Patient had a low-grade temp yesterday, TROPONIN was ordered, and started the patient empirically on Levaquin. Sputum cultures are pending. Today I had a chance to have a long discussion with all family members and updated on her status. Reevaluated today on 10/30/2021, patient remains in the ICU, intubated mechanically ventilated she is now on pressure control 22, inspiratory time of 0.9, PEEP of 14, rate of 36. FiO2 at 65%, and PEEP at 14. Today I went ahead and recommended different mode of mechanical ventilation, I placed the patient on volume control with a rate of 26 and a volume of 350 FiO2 of 65% and PEEP of 14. ABG earlier showed a pO2 of 65 pCO2 51 pH of 7.47. Patient remains on propofol at 75 mcg/kg/m fentanyl 2 mcg/kg/h. She is not requiring any pressors or any medication for hemodynamic support. Her IV fluids remains at KVO, patient is receiving vital Hb at 10 mL per hour. Chest x-ray continues to show bilateral infiltrates, and small right apical pneumothorax in spite of [address], and both seem to be showing air leak. Today I am planning to cut down on the sedation if possible. I'm hoping that we could discontinue at least sentinel if possible, may eventually try again the patient on Precedex. Patient remains on Eliquis at 5 mg twice a day Decadron 4 mg by mouth daily Lasix 40 mg IV push every 12 hours Levaquin, Protonix, and Seroquel, I plan to increase the dose to 50 mg twice a day. Objective - Vital Signs Vital signs: Vital Signs Temp 98.6 F 10/30/21 08:00 Pulse 105 H 10/30/21 09:00 Resp 26 H 10/30/21 09:00 BP 120/65 10/28/21 12:00 Pulse Ox 97 10/30/21 09:00 Intake & Output 10/29/21 10/30/21 10/30/21 18:59 06:59 18:59 Intake Total 1226.908 819.042 479 Output Total 1858 1415 345 Balance -631.092 -595.958 134 Weight 93 kg 88 kg Intake: IV 376 276 69 0.9 Normal Saline @ 20mL/ 240 240 60 hr Levofloxacin 500Mg-D5w 100 Pmx 500 mg In Dextrose/ Water 1 100ml.bag @ 100 mls/hr IVPB Q24H [facility] Rx#: [id number] pressure bag 36 36 9 Intake, IV Titration 640.908 393.042 250 Amount Clevidipine Butyrate 25 44.267 0 mg In Empty Bag 1 bag @ 1 MG/HR 2 mls/hr IV .Q24H [facility] Rx#:[id number] fentaNYL (PF) 2,500 mcg 250 250 In Sodium Chloride 0.9% 200 ml @ 0.5 MCG/KG/HR 4. 6 mls/hr IV .Q24H [facility] Rx# :[id number] propofoL 1,000 mg In 390.908 348.775 Empty Bag 1 bag @ Titrate IV .Q0M [facility] Rx#: [id number] Tube Feeding 120 120 30 Other 90 30 130 Output: Urine 1858 1415 345 Other: Voiding Method Indwelling Catheter Indwelling Catheter Indwelling Catheter ABP, PAP, CO, CI - Last Documented Arterial Blood Pressure 171/67 - Exam Physical Exam: Revealed a 61-year-old female in no distress. Head: Atraumatic, normocephalic PEG tube is intact. HEENT:[Neck is supple.] [No neck masses.] [No thyromegaly.] [No JVD.] Chest: [Symmetrical chest expansion crackles and rhonchi at the bases. 2 chest tubes noted on the right side, and both are showing air leak. Cardiac Exam: [Distant S1 and S2, no S3 gallop. No murmur. Abdomen: [Soft, nontender, no megaly, no rebound, no guarding, normal bowel sounds.] Extremities: [No clubbing, trace of bipedal edema, no cyanosis.] Good pulses bilaterally. Neurological Exam: Opens eyes, Patient does not respond to any stimuli. Psychiatric: Cannot assess Skin: No rashes. - Labs CBC & Chem 7: 10/30/21 05:10 10/30/21 05:10 Labs: Abnormal Lab Results - Last 24 Hours (Table) 10/29/21 10/29/21 10/29/21 Range/Units 03:50 11:29 17:51 RBC (3.80-5.40) m/uL Hgb (11.4-16.0) gm/dL MCHC (31.0-37.0) g/dL RDW (11.5-15.5) % ABG pH (7.35-7.45) ABG pCO2 (35-45) mmHg ABG pO2 (83-108) mmHg ABG HCO3 (21-25) mmol/L ABG Total CO2 (19-24) mmol/L ABG O2 Saturation (94-97) % Potassium (3.5-5.1) mmol/L Carbon Dioxide (22-30) mmol/L BUN (7-17) mg/dL Creatinine (0.52-1.04) mg/dL POC Glucose (mg/dL) 116 H 163 H (75-99) mg/dL Procalcitonin 0.23 H (0.02-0.09) ng/mL 10/29/21 10/30/21 10/30/21 Range/Units 23:48 05:10 05:10 RBC 3.72 L (3.80-5.40) m/uL Hgb 10.5 L (11.4-16.0) gm/dL MCHC 30.6 L (31.0-37.0) g/dL RDW 16.1 H (11.5-15.5) % ABG pH (7.35-7.45) ABG pCO2 (35-45) mmHg ABG pO2 (83-108) mmHg ABG HCO3 (21-25) mmol/L ABG Total CO2 (19-24) mmol/L ABG O2 Saturation (94-97) % Potassium 3.1 L (3.5-5.1) mmol/L Carbon Dioxide 34 H (22-30) mmol/L BUN 18 H (7-17) mg/dL Creatinine 0.31 L (0.52-1.04) mg/dL POC Glucose (mg/dL) 125 H (75-99) mg/dL Procalcitonin (0.02-0.09) ng/mL 10/30/21 Range/Units 05:36 RBC (3.80-5.40) m/uL Hgb (11.4-16.0) gm/dL MCHC (31.0-37.0) g/dL RDW (11.5-15.5) % ABG pH 7.47 H (7.35-7.45) ABG pCO2 51 H (35-45) mmHg ABG pO2 65 L (83-108) mmHg ABG HCO3 37 H (21-25) mmol/L ABG Total CO2 39 H (19-24) mmol/L ABG O2 Saturation 92.4 L (94-97) % Potassium (3.5-5.1) mmol/L Carbon Dioxide (22-30) mmol/L BUN (7-17) mg/dL Creatinine (0.52-1.04) mg/dL POC Glucose (mg/dL) (75-99) mg/dL Procalcitonin (0.02-0.09) ng/mL Microbiology - Last 24 Hours (Table) 10/30/21 03:30 Sputum Culture - Preliminary Sputum Assessment and Plan Assessment: Impression: Acute hypoxic respiratory failure secondary to COVID-19 pneumonia and complicated with ARDS. Patient was intubated on 09/25/2021. Status post tracheos mary and PEG tube placement. 10/14/2021. Acute deep vein thrombosis, on Eliquis. Bilateral pneumothoraces requiring bilateral chest tube placement. However since then the left-sided chest tube was removed, right-sided chest tube had to be placed again by Dr. Harris,I placed a right sided thoravent on 10/25/21, status post chest tube placement again on 10/29/2021, and the removal of thoravent on 10/29. Acute COVID-19 pneumonia Subcutaneous emphysema, resolved. Prior history of DVT History of fibromyalgia Degenerative joint disease Mildly elevated liver enzymes secondary to cardona virus infection. Nonsustained ventricular tachycardia, resolved Recommendation: Continue ventilatory support. Cut down on sedation, increase Seroquel to 50 mg twice a day. Change mode of mechanical ventilation to volume control, and discontinue pressure control mode of mechanical ventilation. Tracheostomy care Continue Eliquis at 5 mg twice a day. Continue nutritional support/enteral feeding Continue GI and DVT prophylaxis, patient is on Protonix Continue COVID-19 cocktail Borderline elevated pro calcitonin, will continue Levaquin. Patient is critically ill. Critical care time is over 30 minutes. Time with Patient: Greater than 30
[2021-10-30 11:50] LABS: Glucose,Whole Blood 158 mg/dL (75-99)
--- NOTE | 2021-10-30 16:56 | P.PN ---
Progress Note - Text Progress Note Date: 10/30/21 *Live* Natanael Stuyvesant [address], [place] [address] Progress Note - SOAP Patient Name: Matti Estrella Date of : 1960 Patient Status: Inpatient Attending Provider: Juan Trevino Date: 10/29/21 09:13 Initialization Date: 10/29/21 09:13 Subjective Progress Note Date: 10/29/21 This is a 61-year-old female who was recently admitted with acute COVID-19 pneumonia with acute COVID-19 bilateral interstitial pneumonia and also with transaminitis and being closely monitored. Patient remains in the ICU and currently intubated and sedated with an FiO2 of 70% and PEEP is 18. 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 Patient did have a venous Doppler study done recently which showed left leg DVT and patient is maintained on Eliquis will continue. Patient also continues on empiric antibiotics and awaiting for sputum culture finalized. Patient was started on IV cefepime and will continue. Patient is also continued on oral dexamethasone along with vitamin and zinc supplements and will continue. Patient with some mild volume overload and given a dose of IV Lasix push today. 09/29/2021 Patient is seen and evaluated this morning continues to be closely monitored in the ICU and continues to be on mechanical ventilation and sedated. FiO2 was increased at 80% with a PEEP of 18 and oxygen saturations between 87-91%. Patient developing subcutaneous emphysema in the neck and chest wall area and chest x-ray today shows bilateral multifocal and confluent opacification is redemonstrated consistent with COVID-19 infection with a new small left apical pneumothorax estimated under 5% with new pneumomediastinum and recurrent overlying subcutaneous emphysema noted. Patient is white blood count mildly elevated at 16.1 and is continued on oral dexamethasone along with oral eliquis for anticoagulation. Patient continues to be on IV cefepime and blood and sputum cultures are negative thus far. 09/30/2021 Patient is seen today continues to be closely monitored in the ICU with multiple medical consultations following. Patient continues to be mechanically intubated and sedated with continued subcutaneous emphysema noted. Chest xray shows a trace left apical pneumothorax that is minimally smaller 7mm versus 1cm previously, extensive bilateral subcutaneous emphysema persists and diffuse interstitial changes and bilateral patchy opacities persist with slight improvement in aeration in the lower lungs. Per nursing staff corbin was clogged with copious amounts of white discharge and will add diflucan and corbin catheter has been changed and draining adequately. Patient continues on IV cefepime. Patient tolerating tube feeds and will continue. 10/01/2021 Patient is seen and evaluated in follow up this morning and continues to be closely monitored. Multiple medical consultations following and patient continues to be on mechanical vent and sedated. Patient continues on IV Cefepime and diflucan. Patient chest xray today shows stable extensive subcutaneous emphysema, no pneumothorax, and patchy bilateral lung infiltrates remain pr esent. INflammatory markers trending down. 10/04/2021 Patient is seen in follow-up continues to be closely monitored in the ICU. Patient remains on mechanical vent with an FI02 of 65% and peep is 18. Weaning trials being attempted with pulmonary supply requirements officer following closely. Patient continues with extensive subq emphysema noted on exam. 10/05/2021 Patient Is seen and evaluated this morning with continued attempts at weaning and continues on mechanical vent and intubated with pulmonary supply requirements officer following closely. Patient remains on Eliquis which will be held as surgery Dr. Nelson was consulted for possible PEG and trach tube placement for unsuccessful attempts at weaning from ventilation and prolonged hospitalization on mechanical vent. Chest x-ray today shows recurrent tiny left apical pneumothorax estimated under 5% with worsening overlying subcutaneous emphysema and again pneumomediastinum redemonstrated with multifocal confluent opacification's redemonstrated consistent with COVID-19 infection and/or arts are redemonstrated with no significant change from one day previously. Patient continues on FiO2 of 65% and PEEP was weaned down to 14 today. IV cefepime discontinued. 10/06/2021 Patient is seen in follow-up this morning per nursing staff patient had multiple runs of ectopy an irregular heart rate and rhythms with PVCs and cardiology consulted. Patient was placed on lidocaine drip and was originally on eliquis is currently on hold for possible PEG and trach placement with general surgery following. Patient had difficulty maintaining oxygen saturations and FiO2 was increased to 100% and PEEP continues at 14. Multiple medical consultations following and patient continues on oral steroids along with vitamin and zinc supplements along with fluconazole. Patient being started on IV Lasix daily and recommend close monitoring of electrolytes and kidney functions. 10/07/2021 Patient is seen in follow-up this morning continues to be monitored closely in the ICU with multiple medical consultations following. Patient is currently on mechanical vent with an FiO2 of 80% and PEEP is 16. General surgery also following for possible PEG and trach placement and will need to discuss with surgery about when this will occur. Patient remains on fluconazole. She also continues on vitamin and zinc supplements along with oral dexamethasone, clevidipine, Nimbex, IV Lasix, fentanyl and propofol and is off norepinephrine. Chest x-ray shows stable bilateral lung infiltrates. 10/08/2021 Patient is seen this morning continues to be on mechanical vent with an FiO2 of 85% and PEEP of 16. Patient continues with extensive subcutaneous emphysema and plans are for possible PEG and trach placement although on hold until possibly next week once more stable. Patient continues on Cleviprex along with fentanyl and propofol and is receiving IV Lasix daily. Patient also continues on lidocaine drip which is currently on hold and cardiology is following closely. Anticoagulant was resumed for now again until more stable to undergo PEG and trach placement. Chest x-ray today shows persistent bilateral multifocal and confluent increased opacification is with persistent overlying subcutaneous emphysema noted in pneumomediastinum is again redemonstrated. 10/09/2021 Patient evaluated today in ICU mechanical ventilation with FiO2 of 80%. Chest x-ray this morning shows similar multifocal airspace opacities and stable support lines and tubes. Similar subcutaneous emphysema scattered throughout the visualized thorax. PEG and trach plan for next week once more stable. Current meds include Cleviprex, Nimbex, fentanyl, propofol. She is receiving IV fluconazole, as well as IV Lasix. Levophed and Lidocaine gtt;s are on hold. Positive bowel sounds. Current vitals afebrile, heart rate 71, blood pressure 135/60 and oxygen saturation is 93%. Respirations 30. Labs today, white count 17, hemoglobin 11.6, sodium 139, potassium 3.8, BUN 34, creatinine 0.91, CO2 33, calcium 8.7, ALT 54, albumin 2.8 with blood sugars in the 100s. 10/10/2021 Patient evaluated today in the ICU on the mechanical VENT with fio2 of 100%. Positive bowel movement today, Stage 2 pressure ulcer on coccyx per RN, optifoam ordered. Per RN they were unable to patient as she was desaturating. They're unable to wean Fi02 currently as she does desaturate with any time of movement. She was lying more on her right side during evaluation and pulse ox was dropping into high 80s she was being repositioned by nurses. Plan is to PEG/TRACH patient tomorrow. Last family update was 4 days ago. We will call and discuss case today. Patient is afebrile, heart rate 84, respirations 30, blood pressure 141/55, 92% oxygen saturation on 100% Fi02, which was increased today up from 70 Fi02%. Labs today show WBC of 15.6, hgbl 10.7, sodium 138, potassium 3.9, chloride 100, CO2 37, glucose 117, calcium 8.2. Chest xray today shows pneumonia, ARDS. 10/11/2021 Patient is seen and evaluated in follow-up this morning continues to be closely monitored in the ICU and patient is continued on FiO2 of 90% and PEEP is 16 with multiple medical consultations following. Chest x-ray today shows new left- sided pneumothorax estimated 10-20% with overlying subcutaneous emphysema and pneumomediastinum redemonstrated with bilateral multifocal and confluent opacification's redemonstrated consistent with COVID-19 infection and/or arts and no significant change from one day previous. Patient is status post left chest tube insertion with pulmonary supply requirements officer. Cardiology following and p atient is off lidocaine drip and maintaining sinus rhythm. Patient also continues on vitamin and zinc supplements along with oral dexamethasone and patient continues on IV Lasix 40 mg daily. Patient also continues off norepinephrine and is currently maintained on IV cefepime along with fluconazole. General surgery following as well and plan is for peg and trach placement in the am 10/12/2021 Patient is seen in the ICU this morning continues to be closely monitored by multiple medical consultations. Patient was scheduled for PEG and trach placement with general surgery Dr. Nelson today although canceled as patient became hypotensive requiring Levophed along with acute blood loss anemia and hemoglobin dropped to 6.5 this morning requiring 1 unit of PRBC. Patient continues with left chest tube with pneumothorax and chest x-ray today shows the jahaira is difficult to clearly identify on the present exam and the ET tube may be approximately 1 cm from the jahaira and there are bilateral chest tubes present with continued diffuse interstitial opacification is and more focal bibasilar opacification is with subcutaneous emphysema persists along the upper chest with slight improvement on the left. No appreciable pneumothorax noted. Patient having worsening right pleural effusion last night and received a right- sided chest tube with pulmonary supply requirements officer. FiO2 is 90% and PEEP of 16. Again overall prognosis remains extremely poor and guarded. 10/13/2021 Patient is seen in follow-up this morning in the ICU with multiple medical consultations following. Lengthy discussion was had with pulmonary supply requirements officer and family members and would like to continue with full CODE STATUS and plan is in place for PEG tube and tracheostomy placement tomorrow. Anticoagulant on hold and Dr. Nelson plans for surgery tomorrow. Patient continues on oral dexamethasone along with IV cefepime, vitamin and zinc supplements. Patient also continues on Cleviprex and Nimbex. Patient also continues on fentanyl and propofol and will continue. Chest x-ray today shows stable portable chest with bilateral chest tubes without sizable pneumothorax identified and continued subcutaneous air persists with persistent interstitial changes bilaterally with airspace disease in the bilateral lung bases that are unchanged. FiO2 is 60% and PEEP of 16. 10/14/2021 Patient is seen and evaluated in the ICU being closely monitored with multiple medical consultations following. at the bedside today and had detailed discussion with overall prognosis. Plan is to proceed with PEG tube and tracheostomy placement with surgery Dr. Nelson today and anticoagulant continues to be on hold for this procedure. Patient continues on mechanical ventilation with an FiO2 of 70% and PEEP of 16. Chest x-ray today shows improving infiltrate with bibasilar residual and bilateral chest tubes remain present with no pneumothorax evident on either side and again subcutaneous emphysema is noted. 10/15/2021 Patient is seen in the ICU being closely monitored. Patient is status post PEG and trach placement yesterday. Chest x-ray today shows bilateral patchy lung infiltrates greater at the right base with diffuse increased lung markings and bilateral chest tubes remain present and subcutaneous emphysema on the right is diminished. Patient continues with an FI02 of 60 and peep is 16. To resume tube feeds per surgery. Patient continues on norepinephrine and sedation. Patient is receiving IV lasix daily. 10/16/2021 Patient is currently in the MICU and remains on ventilator. Status post tracheostomy and PEG tube placement on 10/14/2021. Patient is sedated and paralyzed. Also on Cleviprex. Chest x-ray showed no acute cardiopulmonary disease with no interval changes. Laboratory data showed WBC 16.9 hemoglobin 8.9 and platelets 278 BUN 19 and creatinine 0.5 and calcium 8.1 patient is being continued on dexamethasone 6 mg daily, Lasix 40 mg IV daily and multivitamins and anticoagulation with Eliquis. Pulmonary and general surgery is on board. 10/17/2021 Patient is in the MICU. Remains on the current ventilator via tracheostomy. Status post tracheostomy and PEG tube placement on 10/14/2021. Sedated and paralyzed and also on fentanyl drip. Currently on assist control with tidal volume of 420, FiO2 80% and PEEP of 16. Respiratory of 30. Chest x-ray showed no interval change in acute cardiopulmonary disease Laboratory data showed WBC 15.8 hemoglobin 8.2 and platelets 271 Sodium 136 potassium 3.1 chloride 100 bicarb is 32 BUN 21 creatinine 0.48 and albumin 2.3 Patient is being continued on Lasix IV, dexamethasone and anticoagulation with Eliquis. 10/18/2021 Patient is seen in follow-up and continues in the ICU with multiple medical consultations following. Patient continues on mechanical vent with an FI02 of 70% and peep is 16. Chest xray shows overall stable exam with interstitial changes and bilateral patchy infiltrates with right greater than left and greater at the bases with bilateral chest tubes noted. no appreciable pneumothorax. Patient continues on propofol and fentanyl along with cleviprex and rocuronium. Eliquis has been resumed. Potassium is 3.3 and will be replaced per protocol. Patient also continues to receive IV lasix daily. 10/19/2021 Patient is seen this morning and continues to be in the ICU with multiple medical consultations following. Patient continues with bilateral chest tubes and remains on mechanical ventilation with an FiO2 of 65% and PEEP is 16. Chest x-ray today shows Bilateral multifocal and confluent opacification greatest in the lower lungs consistent with COVID-19 infection and/or ARDS all redemonstrated with no significant change from one day earlier and continued bilateral chest tubes without pneumothorax redemonstrated. 10/20/2021 Patient continues to be in the ICU under close critical monitoring with multiple medical consultations following. Patient continues with bilateral chest tubes although per nursing staff may possibly discontinued today. Chest x-ray today shows stable portable chest with no change in scattered mixed interstitial and alveolar infiltrates. Patient remains on mechanical ventilation via t racheostomy with an FiO2 of 55% and PEEP is 15. Patient continues on Cleviprex along with rocuronium and sedation. 10/21/2021 Patient continues in the MICU being closely monitored. Chest tubes were removed today and chest xray stable with interstitial changes and basilar ground glass, that is similar to previous with slight improvement. Patient continues on mechanical vent with an FI02 of 70% and peep is 14. Patient remains sedated and per nursing staff working on weaning paralytics. Patient continued on rocuronium. Patient is tolerating tube feeds and also continues on IV lasix daily with generalized edema noted throughout. 10/22/2021 Patient is currently MICU. Patient was taken off paralytic and chest tubes yesterday. Continued on pressure support with PEEP of 13. 88 this morning p atient again desaturated. Patient became hypotensive and patient was started on norepinephrine. Chest x-ray showed large pneumothorax on the right. Right chest tube was reinserted. Patient is on pressure control. Remains sedated and mechanically ventilated. Laboratory data showed WBC 13.7 hemoglobin 7.7 and platelets 314 Sodium 140 potassium 3.0 chloride 102 bicarb is 37 BUN 19 and creatinine 0.44 and calcium 8.1 Patient is being continued dexamethasone multivitamins and anticoagulation with Eliquis. Patient is also on IV Lasix. Potassium will be replaced. 10/23/2021 Patient is currently MICU. Patient is on mechanical ventilator via trach tube. Patient developed right-sided tension pneumothorax. Again patient had issues with pneumothorax around 10 PM yesterday. Chest tube has to be replaced. Patient is also requiring pressor support. Off pressors this morning. On pressure support. PEEP of 13 and FiO2 100%. Laboratory data showed WBC 13.7 hemoglobin 7.7 and platelets 314 Sodium 140 potassium 3.0 chloride 102 bicarb is 37 BUN 19 and creatinine 0.44 and calcium 8.1 cultures have been negative. Patient is being current on dexamethasone, Eliquis and also IV Lasix 40 mg daily. 10/24/2021 Patient is currently in the MICU. Currently on mechanical ventilator via tracheal tube. Continue propofol and fentanyl. Remains pressure support with PEEP of 13 FiO2 reduced to 70%. Chest x-ray showed bilateral multifocal and confluent opacities consistent with COVID-19 infection and ARDS are redemonstrated and stable. Right-sided chest tube with small apical pneumothorax estimated 10 to 15% improved from 1 day earlier. Pneumo mediastinum noted. Laboratory data showed WBC 14.2 hemoglobin 7.1 and platelets 317 Sodium 140 potassium 3.2 chloride 104 bicarb is 38 BUN 20 and creatinine 0.46 and calcium 7.8. Patient is being continued on dexamethasone, Eliquis and also on IV Lasix. Currently on multivitamins. 10/25/2021 Patient is seen this morning continues to be in the ICU with close monitoring. Patient continues on mechanical vent via tracheostomy and FiO2 of 65% with a PEEP of 13. Chest x-ray this morning shows right-sided chest tube in place with continued small to moderate right sided pneumothorax slightly smaller in the interval, apical component measuring 2.3 cm versus 2.8 cm previously along with interstitial opacities persist in pneumonitis versus mild pulmonary edema, status post right side thoravent place this morning with pulmonary supply requirements officer showing resolution of the apical and lateral components of the pneumothorax and 5 mm basilar components remain. Patient requiring more oxygen supplementation and FiO2 being increased to 75%. Hemoglobin found to be 6.3 and awaiting to receive a unit of PRBC. Patient also continues on Nimbex along with Cleviprex, oral dexamethasone, vitamin and zinc supplements along with oral eliquis, along with fentanyl and propofol for sedation. 10/26/2021 Patient is seen in follow-up today continues on mechanical ventilation with an FiO2 of 75% which is currently titrating down to 65% per nursing staff with an FiO2 of 13. Patient continues on Cleviprex and Nimbex and attempts at weaning although not tolerating well. Patient also continues on fentanyl and propofol for sedation. Chest x-ray today shows a right-sided thoracic vent and chest to both present and overlying appropriate positions with minimal right-sided apical pneumothorax present and persistent bilateral interstitial groundglass opacities noted with no evident pleural effusion to correlate for pneumonia. Hemoglobin improved to 8.7 today after 1 unit of PRBC. Will continue to monitor closely. 10/27/2021 Patient is seen today continues to be closely monitored in the ICU on mechanical vent via tracheostomy with an FiO2 of 70% and PEEP is 13. Patient continues on IV Lasix daily along with propofol and fentanyl for sedation. Patient also continues to be on Cleviprex as blood pressure is elevated. Per nursing staff attempts at weaning some sedation although patient not tolerating well. Patient continues with chest tubes on the right and there is an air leak noted and also continues with thoravent on the right. Chest x-ray today shows enlarging right- sided pneumothorax estimated at 15% with no significant change in interstitial infiltrate seen bilaterally. 10/28/2021 Patient is seen in the ICU this morning continues on mechanical ventilation with a FI02 of 85% and peep is 13. Patient continues on propofol for sedation along with Nimbex and also patient is on norepinephrine with hypotension at times. Chest xray today shows continued diffuse interstitial infiltrates with continued right side pneumothorax slightly larger in the interval, apical component measuring 1.9cm versus 1.5. Potassium was found to be 3.0 and being replaced. 10/29/2021 Patient is seen and evaluated today and continues to be closely monitored in the ICU. Multiple medical consultations following. Patient continues on mechanical ventilation via tracheostomy and also PEG tube with tube feedings and tolerating. FiO2 is currently 60% with a PEEP of 14. Cleviprex is currently off and patient continues on decreased doses of sedation. Patient also continues on IV Levaquin and will continue. Patient is currently off of Levophed and Nimbex. Patient was continued on 40 mg of Lasix daily which is currently being increased to twice daily and will continue to monitor closely. Patient's potassium was found to be 2.8 today and being replaced per protocol. Chest x-ray this morning showed a continued right-sided pneumothorax increasing in size currently estimated at 40% and emergent chest tube placement on the right was performed by pulmonary supply requirements officer and subsequent removal of right side thoravent. Repeat chest x-ray showed a diminished right sided pneumothorax on the right and increasing diffuse infiltrates greater on the right. 10/30/21 This patient is still on the vent. Vent settings are noted. The patient continues to be unresponsive. Blood pressure is fluctuating. Dr. Alejandro is following the patient closely. Family updated. Prognosis guarded. Lites monitored. See orders for further details. Review of systems: Unable to obtain as patient is mechanically intubated and sedated Labs: WBC is 7.8, hgb 9.1, plt 329, sodium 140, potassium 2.8, bun 21, creatinine 0.36, calcium 8.0 Active Medications Apixaban (Apixaban 5 Mg Tab) 5 mg PO BID [facility]; Protocol Last Admin: 10/29/21 10:14 Dose: 5 mg Documented by: Artificial Tears (Artificial Tears-Hypromellose Drops 15 Ml Btl) 2 drops BOTH EYES QID [facility] Last Admin: 10/29/21 12:24 Dose: 2 drops Documented by: Ascorbic Acid (Ascorbic Acid 500 Mg Tab) 500 mg PO BID [facility] Last Admin: 10/29/21 10:14 Dose: 500 mg Documented by: Dexamethasone (Dexamethasone 2 Mg Tab) 4 mg PO DAILY [facility] Last Admin: 10/29/21 10:15 Dose: 4 mg Documented by: Docusate Sodium (Docusate Oral Soln 100 Mg/10 Ml Cup) 100 mg PO DAILY PRN PRN Reason: Constipation Last Admin: 10/18/21 15:53 Dose: 100 mg Documented by: Ergocalciferol (Ergocalciferol 1,250 Mcg (50,000 Iu) Capsule) 1,250 mcg PO [facility] Last Admin: 10/24/21 09:11 Dose: Not Given Documented by: Furosemide (Furosemide 10 Mg/Ml 4 Ml Vial) 40 mg IV DAILY [facility] Last Admin: 10/29/21 10:15 Dose: 40 mg Documented by: Sodium Chloride (Saline 0.9%) 1,000 mls @ 20 mls/hr IV .Q24H [facility] Last Admin: 10/29/21 05:45 Dose: Not Given Documented by: Fentanyl Citrate 2,500 mcg/ (Sodium Chloride) 250 mls @ 4.6 mls/hr IV .Q24H [facility]; Protocol Last Admin: 10/29/21 04:23 Dose: 2 mcg/kg/hr, 18.4 mls/hr Documented by: Clevidipine 25 mg/ IV Solution 50 mls @ 2 mls/hr IV .Q24H [facility]; Protocol Last Titration: 10/28/21 19:00 Dose: 0 mg/hr, 0 mls/hr Documented by: Norepinephrine Bitartrate 8 mg (/ Sodium Chloride) 258 mls @ 9.143 mls/hr IV .Q24H [facility]; Protocol Last Admin: 10/29/21 08:48 Dose: Not Given Documented by: Propofol 1,000 mg/ IV Solution 100 mls @ 0 mls/hr IV .Q0M [facility]; Protocol Last Titration: 10/29/21 12:23 Dose: 30 mcg/kg/min, 16.74 mls/hr Documented by: Levofloxacin 500 mg/ IV (Solution) 100 mls @ 100 mls/hr IVPB Q24H [facility] Last Admin: 10/29/21 10:15 Dose: 100 mls/hr Documented by: Insulin Aspart (Insulin Aspart (Novolog) 100 Unit/Ml Vial) 0 unit SQ Q6HR [facility]; Protocol Last Admin: 10/29/21 11:40 Dose: Not Given Documented by: Miscellaneous Information (Pneumonia Protocol Utilized 1 Each Misc) 1 each PO ONCE PRN PRN Reason: Per Protocol Miscellaneous Information (Potassium Replacement Protocol 1 Each Misc) 1 each MISCELLANE DAILY PRN; Protocol PRN Reason: Per Protocol Naloxone HCl (Naloxone 0.4 Mg/Ml 1 Ml Vial) 0.2 mg IV Q2M PRN PRN Reason: Opioid Reversal Pantoprazole Sodium (Pantoprazole 40 Mg/10 Ml Vial) 40 mg IV DAILY [facility] Last Admin: 10/29/21 10:15 Dose: 40 mg Documented by: Potassium Bicarbonate (Potassium Bicarbonate/Cit Ac 20 Meq Tablet.Eff) 20 meq PO BID [facility] Quetiapine Fumarate (Quetiapine 25 Mg Tab) 25 mg PO BID [facility] Last Admin: 10/29/21 10:15 Dose: 25 mg Documented by: Zinc Sulfate (Zinc Sulfate 220 Mg Cap) 220 mg PO DAILY [facility] Last Admin: 10/29/21 10:14 Dose: 220 mg Documented by: Physical Exam: Gen: This is a 61-year-old female currently sedated and intubated. mechanical ventilation Fio2 increased today to 60% with a PEEP of 14. Temp is 98F, pulse is 68, respirations are 26, blood pressure arterial is 129 were 44, oxygen saturation is 92% on 60% FiO2. HEENT: Head is atraumatic, normocephalic. Pupils equal, round. Sclerae is anicteric. tracheostomy noted NECK: Supple. No JVD. No lymphadenopathy. No thyromegaly. tracheostomy noted LUNGS: Diminished breath sounds bilaterally with coarse rhonchi and crackles noted. No intercostal retractions. Right side chest tube and thoravent noted HEART: S1, S2 are muffled ABDOMEN: Soft. Obese. Bowel sounds are present. No masses. No tenderness. peg tube noted. EXTREMITIES: No pedal edema. No calf tenderness. generalized edema noted NEUROLOGICAL: Patient is currently intubated and sedated Assessment: Acute COVID-19 infection with acute COVID-19 bilateral interstitial pneumonia with hypoxic hypercarbic respiratory failure on mechanical vent status post trach and peg tube placement on 10/14/2021 Worsening right side pneumothorax status post chest tube placement and thoravent removal on 10/29/2021 bilateral pneumothoraces with chest tube placement and status post removal of chest tubes 2.3.2021 Status post reinsertion of chest tubes on 10/22/2021 due to a tension pneumothorax on the right, status post thoraVent placement as well on the right on 10/25/2021, worsening pneumothorax on the right with continued air leak of the chest tube Acute blood loss anemia secondary to bilateral chest tube placements, possible hypovolemic shock requiring pressor support, currently hypertensive and off pressors, currently improved Non-sustained ventricular tachycardia, currently sinus Acute left leg deep vein thrombosis Acute respiratory acidosis Primary hypercoagulable state and factor V deficiency Mild transaminitis, possibly secondary to COVID-19 History of degenerative joint disease History of fibromyalgia Elevated inflammatory markers of COVID-19 Obesity with a body mass index of 38.1 Full code Plan: Recommend to continue with current medications and follow along closely with multiple medical consultations. Prognosis remains extremely poor and guarded with multiple complex medical issues noted. Patient continues on mechanical ventilation via tracheostomy and FiO2 60% with PEEP of 13. Recommend to continue with current medications. Currently attempting to wean some sedation and decrease the dose of fentanyl and propofol to better assess mentation although patient does not tolerate well. Patient continues with right side chest tube and urgently had to replace the chest tube this morning for worsening pneumothorax as noted on chest x-ray and also thoravent on the right was removed. Patient continues off Nimbex since yesterday. Recommend repeat labs and chest x-ray in a.m. and continued close monitoring. Again due to multiple complex medical issues overall prognosis is extremely poor and quite guarded. Objective - Vital Signs Vital signs: Vital Signs Temp 98.0 F 10/29/21 08:00 Pulse 68 10/29/21 08:00 Resp 26 H 10/29/21 08:00 BP 120/65 10/28/21 12:00 Pulse Ox 92 L 10/29/21 08:00 Intake & Output 10/28/21 10/29/21 10/29/21 18:59 06:59 18:59 Intake Total 127.433 3898.295 96 Output Total 2540 260 58 Balance -1548.088 951.295 38 Intake: IV 276 253 46 0.9 Normal Saline @ 20mL/ 240 220 40 hr pressure bag 36 33 6 Intake, IV Titration 525.912 758.295 Amount Clevidipine Butyrate 25 81.467 34.667 mg In Empty Bag 1 bag @ 1 MG/HR 2 mls/hr IV .Q24H [facility] Rx#:[id number] Norepinephrine 8 mg In 12.434 90.819 Sodium Chloride 0.9% 250 ml @ 0.05 MCG/KG/MIN 9. 143 mls/hr IV .Q24H [facility] Rx#:[id number] fentaNYL (PF) 2,500 mcg 132.011 233.067 In Sodium Chloride 0.9% 200 ml @ 0.5 MCG/KG/HR 4. 6 mls/hr IV .Q24H [facility] Rx# :[id number] propofoL 1,000 mg In 300.000 Empty Bag 1 bag @ Titrate IV .Q0M [facility] Rx#: [id number] propofoL 1,000 mg In 399.742 Empty Bag 1 bag @ Titrate IV .Q0M [facility] Rx#: [id number] Tube Feeding 130 110 20 Other 60 90 30 Output: Chest Tube Drainage 10 Chest Tube Right 10 Thora-Vent Right Upper 0 Anterior Chest Urine 2530 260 58 Other: Voiding Method Indwelling Catheter Indwelling Catheter ABP, PAP, CO, CI - Last Documented Arterial Blood Pressure 129/44 - Labs CBC & Chem 7: 10/29/21 03:50 10/29/21 13:00 Labs: Abnormal Lab Results - Last 24 Hours (Table) 10/28/21 10/28/21 10/28/21 Range/Units 10:03 11:27 17:41 RBC (3.80-5.40) m/uL Hgb (11.4-16.0) gm/dL Hct (34.0-46.0) % MCHC (31.0-37.0) g/dL RDW (11.5-15.5) % ABG pH 7.51 H (7.35-7.45) ABG pCO2 (35-45) mmHg ABG pO2 72 L (83-108) mmHg ABG HCO3 34 H (21-25) mmol/L ABG Total CO2 36 H (19-24) mmol/L Potassium (3.5-5.1) mmol/L Carbon Dioxide (22-30) mmol/L BUN (7-17) mg/dL Creatinine (0.52-1.04) mg/dL POC Glucose (mg/dL) 161 H 157 H (75-99) mg/dL Calcium (8.4-10.2) mg/dL 10/29/21 10/29/21 10/29/21 Range/Units 00:00 03:50 03:50 RBC 3.23 L (3.80-5.40) m/uL Hgb 9.1 L (11.4-16.0) gm/dL Hct 29.9 L (34.0-46.0) % MCHC 30.5 L (31.0-37.0) g/dL RDW 16.0 H (11.5-15.5) % ABG pH (7.35-7.45) ABG pCO2 (35-45) mmHg ABG pO2 (83-108) mmHg ABG HCO3 (21-25) mmol/L ABG Total CO2 (19-24) mmol/L Potassium 2.8 L (3.5-5.1) mmol/L Carbon Dioxide 35 H (22-30) mmol/L BUN 21 H (7-17) mg/dL Creatinine 0.36 L (0.52-1.04) mg/dL POC Glucose (mg/dL) 111 H (75-99) mg/dL Calcium 8.0 L (8.4-10.2) mg/dL 10/29/21 Range/Units 05:21 RBC (3.80-5.40) m/uL Hgb (11.4-16.0) gm/dL Hct (34.0-46.0) % MCHC (31.0-37.0) g/dL RDW (11.5-15.5) % ABG pH (7.35-7.45) ABG pCO2 57 H (35-45) mmHg ABG pO2 (83-108) mmHg ABG HCO3 39 H (21-25) mmol/L ABG Total CO2 (19-24) mmol/L Potassium (3.5-5.1) mmol/L Carbon Dioxide (22-30) mmol/L BUN (7-17) mg/dL Creatinine (0.52-1.04) mg/dL POC Glucose (mg/dL) (75-99) mg/dL Calcium (8.4-10.2) mg/dL
[2021-10-30 17:39] LABS: Glucose,Whole Blood 123 mg/dL (75-99)
[2021-10-30] MEDS: QUEtiapine 50 MG TAB PO SCH (20:15)
[2021-10-30 23:48] LABS: Glucose,Whole Blood 112 mg/dL (75-99)
[2021-10-31] MEDS: ARTIFICIAL TEARS-HYPROMELLOSE DROPS 15 ML BTL BOTH EYES SCH ×5 (00:06→22:21)
[2021-10-31] MEDS: INSULIN ASPART (NovoLOG) 100 UNIT/ML VIAL SQ SCH ×4 (00:08→19:05)
[2021-10-31 05:09] LABS: HCT 30.1 % (34.0-46.0); HGB 9.3 gm/dL (11.4-16.0); Hypochromasia Marked; MCH 28.8 pg (25.0-35.0); MCV 92.9 fL (80.0-100.0); Platelet Count 296 k/uL (150-450); Poikilocytosis Slight; RBC 3.24 m/uL (3.80-5.40); RDW 15.7 % (11.5-15.5); WBC 7.8 k/uL (3.8-10.6)
[2021-10-31 05:14] LABS: African American GFR (CKD) >90 (>60 ml/min/1.73 sqM); Anion Gap 2 mmol/L; Blood Urea Nitrogen 19 mg/dL (7-17); Calcium 8.3 mg/dL (8.4-10.2); Carbon Dioxide 38 mmol/L (22-30); Chloride 100 mmol/L (98-107); Glucose 83 mg/dL (74-99); Non-African American GFR(CKD) >90 (>60 ml/min/1.73 sqM); Potassium 2.8 mmol/L (3.5-5.1); Sodium 140 mmol/L (137-145)
[2021-10-31 05:50] LABS: Glucose,Whole Blood 83 mg/dL (75-99)
[2021-10-31 06:00] LABS: ABG Base Excess 14.6 mmol/L; ABG HCO3 39 mmol/L (21-25); ABG Oxygen Saturation 98.9 % (94-97); ABG PCO2 63 mmHg (35-45); ABG PH 7.41 (7.35-7.45); ABG PO2 122 mmHg (83-108); ABG TCO2 41 mmol/L (19-24); Allen Test Performed? Yes
[2021-10-31] MEDS: SODIUM CHLORIDE 0.9% 1,000 ML IV SCH (06:48)
[2021-10-31] MEDS: POTASSIUM BICARBONATE/CIT AC 20 MEQ TABLET.EFF NG-TUBE SCH ×5 (06:50→16:46)
[2021-10-31] MEDS: NOREPINEPHRINE 8 MG in SODIUM CHLORIDE 0.9% 250 ML IV SCH (07:38)
[2021-10-31] MEDS: ERGOCALCIFEROL 1,250 MCG (50,000 IU) CAPSULE PO SCH (08:21)
[2021-10-31] MEDS: dexAMETHasone 2 MG TAB PO SCH (08:21)
[2021-10-31] MEDS: ASCORBIC ACID 500 MG TAB PO SCH ×2 (08:21→19:58)
[2021-10-31] MEDS: ZINC SULFATE 220 MG CAP PO SCH (08:21)
[2021-10-31] MEDS: QUEtiapine 50 MG TAB PO SCH ×2 (08:21→19:58)
[2021-10-31] MEDS: APIXABAN 5 MG TAB PO SCH ×2 (08:21→19:58)
[2021-10-31] MEDS: LEVOFLOXACIN 500MG-D5W PMX 500 MG in DEXTROSE/WATER 1 100ML.BAG IVPB SCH (08:23)
[2021-10-31] MEDS: PANTOPRAZOLE 40 MG/10 ML VIAL IV SCH (08:23)
[2021-10-31] MEDS ORDERED: DILTIAZEM 5 MG/ML 5 ML VIAL IVP STA (08:41)
[2021-10-31] MEDS ORDERED: DILTIAZEM DRIP BOLUS FROM BAG 1 MG SOLN IV ONE (08:45)
--- NOTE | 2021-10-31 08:51 | XR ---
EXAMINATION TYPE: XR chest 1V portable DATE OF EXAM: 10/31/2021 COMPARISON: 10/30/2021 INDICATION: Pneumothorax TECHNIQUE: Single frontal view of the chest is obtained. FINDINGS: The heart size is normal. The pulmonary vasculature is normal. Diffuse increased lung markings are present bilaterally. There is a right sided pneumothorax. This is slightly diminished over the interval. Tracheostomy tube is in the midline. Right-sided PICC line is present with the tip in the superior ve na cava region. 2 right-sided chest tubes remain present and stable. IMPRESSION: 1. Diminishing right-sided pneumothorax. 2. Right-sided chest tubes remain in stable position. 3. Additional lines and catheters discussed above. 4. Diffuse increased lung markings bilaterally appears stable.
[2021-10-31] MEDS ORDERED: DILTIAZEM 125 MG in SODIUM CHLORIDE 0.9% 100 ML IV SCH (09:00)
[2021-10-31] MEDS ORDERED: FUROSEMIDE 10 MG/ML 4 ML VIAL IV SCH (09:00)
--- NOTE | 2021-10-31 10:11 | P.PN ---
Subjective Progress Note Date: 10/31/21 Principal diagnosis: Acute hypoxic respiratory failure secondary to COVID-19 pneumonia 10/24/2021, the patient remains on a mechanical ventilator. This morning, she is sedated with a combination of propofol and fentanyl. Propofol is running at 45 mcg/kg per minute and the fentanyl is running at 1.5 mcg/kg/h. I have taken this patient off paralytics. Meanwhile, switch this patient a pressure control mode of mechanical ventilation at the rate of 26, pressure control of 22, FiO2 of 70% with a PEEP of 13. The chest x-ray from today showing a small right apical pneumothorax. Chest tube is in a good location. There are still persistent air leak and the chest tube. Tracheostomy tube is high in the trachea. Nevertheless, there is no air leaks. The patient continues to have diffuse bilateral pulmonary infiltrates more so in the right lower lobe. The blood gases from today shows a pH of 7.50 with a pCO2 of 47 and pO2 of 96 and this was on FiO2 of 70%. Otherwise, the patient remains hemodynamically stable. She remains on anticoagulation and the patient remains on Eliquis 5 mg by mouth twice a day.. The patient is also on Decadron as well as a 4 mg by mouth daily no other new complaints otherwise for now. The patient is receiving enteral feeding for nutritional support via PEG tube. She is currently on vital high protein at the rate of 10 mL an hour. The blood work from today shows a white cell count 14.2 with hemoglobin of 7.1 and a platelet count of 317. Sodium is at 140 with potassium level of 3.4 which is going to be replaced. BUN is at 20 with a creatinine of 0.4. Blood sugar is at 103. No other significant events overnight. No synovitis fluid overload. Overall fluid balance over the past 24 hours has been -1083 cc. Reevaluated today on 10/25/2021, patient remains in the ICU, intubated, mechanically ventilated. Patient is presently on pressure control mode of mechanical ventilation, pressure control of 18, TI of 0.9 FiO2 60% PEEP of 15. ABG showed a pO2 of 100 pCO2 of 58 pH of 7.41, however during my evaluation the patient was noted to desaturate and her chest x-ray was showing worsening right- sided pneumothorax, hence went ahead and placed a 13-[place] thoravent in the right upper chest area at the level of the midclavicular line and third intercostal space. Follow-up chest x-ray showed complete reexpansion of the right lung, To the old chest tube in place, and connected both to pleural vacs. Patient is on fentanyl at 2.5 mcg/kg/h, is also on propofol at 50 and considering the patient was noted to have increased work of breathing and she was desaturating I recommended we place her back on Nimbex. Patient is rece iving vital Hb at 10 mL per hour. She is not requiring any pressors. Her peak airway pressure is 36 plateau pressure is 34. Her pressure control was increased from 18-22, and a PEEP was cut down to 13. Instructed the nurses to titrate FiO2 down while the patient is on Nimbex. Patient is noted to be awake, opens eyes, but does not follow any instructions. Hemoglobin today is 6.3, patient will receive at least a unit of packed RBCs. WBC count is 9.1. Electrolytes and renal profile are normal except for low potassium of 3.4. Chest x-ray post chest tube placement showed interval resolution of the apical and lateral pneumothorax. Reevaluated today on 10/26/2021, patient remains in the ICU, remains intubated mechanically ventilated, sedated and paralyzed. She is on pressure control mode of mechanical ventilation with a pressure control of 22 inspiratory time of 0.10 seconds. FiO2 60% PEEP of 13. ABG on 75% earlier showed a pO2 of 182 pCO2 of 53 pH of 7.44. Patient remains on multiple drips including Nimbex at 1.5 pg/kg/m, propofol at 50 mcg/kg/m, fentanyl 2 mcg/kg/h. IV fluid at 20 mL per hour. Peak airway pressure is 36 plateau pressure is 25. Patient remains on vital hpf at 10 mL per hour. Today I cut down the FiO2 to 50%. Chest x-ray showed excellent expansion of the right lung, right-sided chest tube and right sided thoravent are in the proper position, no evidence of air leak and the pleural VAC. And the right lung seems to be almost completely reexpanded. Very small tiny apical pneumothorax is noted. Today I'm planning to hold the Nimbex and hopefully maintain the patient on propofol and sentinel if possible. And I have no plans to remove any of the chest tubes at present. Chest x-ray continues show bilateral infiltrates consistent with COVID-19 pneumonia, nonetheless overall the chest x-ray is showing improvement. WBC count is 13.1 hemoglobin 8.7. A left was are normal renal profile is normal bicarb is 35 Reevaluated today on 10/27/2021, patient remains in the ICU, intubated and mechanically ventilated. She is on assist control rate of 26, pressure control 22, TI of 0.90 PEEP of 13 FiO2 70%. Continues to have a relatively elevated plateau pressure of 36 consistent with ARDS. Continues to have abnormal chest x-ray showing bilateral airspace disease, and a small right apical right-sided pneumothorax. Continues to have air leak in the right-sided chest tube, but none in the THORAVENT pleural VAC. ABG showed a pO2 of 53 pCO2 46 pH of 7.50 hence the FiO2 was increased from 65% to 70%. CBC is relatively normal WBC count is 9.1 hemoglobin is 9.2. Basic metabolic profile is normal, potassium is low being corrected. Patient remains on multiple drips including fentanyl 2 mcg/kg/h, propofol at 55 mcg/kg/m, she is on clevidipine 12 mg per hour, patient is off Nimbex since yesterday. IV fluids at KVO. Reevaluated today on 10/28/21, patient remains in the ICU, remains intubated and mechanically ventilated. She is on pressure control mode of mechanical ventilation, pressure control is set at 22, rate is 26, inspiratory time is 0.9, remains on FiO2 of 85% and PEEP of 13. Patient is sedated but not paralyzed, she is now on fentanyl at 1.5 and I increased the dose to 2 mcg/kg/m. I have also increased her propofol from 50-75. Patient remains on clevidipine to my milligrams per hour and she remains on enteral feeding using vital Hb at 10 mL per hour. CBC is relatively unremarkable hemoglobin is 9.1 electrolytes are nor mal except for low potassium of 3.0. Profile is normal. Chest x-ray continues to show bilateral airspace disease, and a small tiny right apical right-sided pneumothorax in spite of having a chest tube and a thoravent in place. Not much of a change noted in the last 24 hours, patient is basically about the same but seems to be a bit more agitated and restless as her sedation was increased. Reevaluated today on , patient remains in the ICU, intubated and mechanically ventilated. Chest x-ray early this morning showed 40% right-sided pneumothorax, hence went ahead and placed another chest tube a size 32 [place] chest tube, placed lateral to the previous chest tube, and the thoravent was removed from the upper chest. Chest x-ray showed significant improvement, and now early is noted in both chest tubes the new one and the old one. Patient is on pressure control mode of mechanical ventilation with a pressure control of 22, rate of 26, inspiratory time of 0.90, FiO2 60% PEEP 13. . CBC is relatively unremarkable, electrolytes are normal except for low potassium of 2.8. Patient is not requiring any pressors, she is not on Nimbex, but she is requiring propofol at propofol at 75 mcg/kg/m, and fentanyl 2 mcg/kg per hour. Patient is also receiving vital Hb at 10 mL per hour. Patient had a low-grade temp yesterday, TROPONIN was ordered, and started the patient empirically on Levaquin. Sputum cultures are pending. Today I had a chance to have a long discussion with all family members and updated on her status. Reevaluated today on 10/30/2021, patient remains in the ICU, intubated mechanically ventilated she is now on pressure control 22, inspiratory time of 0.9, PEEP of 14, rate of 36. FiO2 at 65%, and PEEP at 14. Today I went ahead and recommended different mode of mechanical ventilation, I placed the patient on volume control with a rate of 26 and a volume of 350 FiO2 of 65% and PEEP of 14. ABG earlier showed a pO2 of 65 pCO2 51 pH of 7.47. Patient remains on propofol at 75 mcg/kg/m fentanyl 2 mcg/kg/h. She is not requiring any pressors or any medication for hemodynamic support. Her IV fluids remains at KVO, patient is receiving vital Hb at 10 mL per hour. Chest x-ray continues to show bilateral infiltrates, and small right apical pneumothorax in spite of [address], and both seem to be showing air leak. Today I am planning to cut down on the sedation if possible. I'm hoping that we could discontinue at least sentinel if possible, may eventually try again the patient on Precedex. Patient remains on Eliquis at 5 mg twice a day Decadron 4 mg by mouth daily Lasix 40 mg IV push every 12 hours Levaquin, Protonix, and Seroquel, I plan to increase the dose to 50 mg twice a day. Reevaluated today on 10/31/2021, patient remains in the ICU intubated mechanically ventilated, sedated, off paralysis, however has been difficult to wean down her sedation to assess fully her mental status. Patient will get extremely agitated on a lower dose of fentanyl or propofol, she desaturates, she becomes very short of breath, and asynchronous with the ventilator. Multiple attempts have been done in the last few days, and they have been unsuccessful nonetheless the patient is now is off paralytics. Yesterday I changed the patient from pressure control to volume control, she is on assist control rate of 26 tidal volume 350 FiO2 of 55% PEEP is 14. ABG earlier on 65% showed a pO2 of 122 pCO2 63 pH of 7.41. Electrolytes are normal except for low potassium of 2.8, being corrected accordingly. Renal profile is normal sodium is normal that is scattered 7.8 hemoglobin is 9.3. Patient remains on fentanyl 2 mcg/kg/m, propofol at 75 mcg/kg/m she is receiving vital Hb at 10 mL per hour. Chest x- ray today showed improvement in her right-sided pneumothorax, nonetheless on physical examination she continues to have some air leak in the newly placed chest tube, and hardly any leak in the old chest tube. The pneumothorax seems to be much smaller today compared to the last few days. As I was finishing my balance in the ICU, patient developed an episode of atrial fibrillation with RVR, and I recommended Cardizem bolus, Cardizem drip, and cardiology was consulted. Objective - Vital Signs Vital signs: Vital Signs Temp 98.2 F 10/31/21 04:00 Pulse 101 H 10/31/21 08:00 Resp 34 H 10/31/21 08:00 BP 109/68 10/31/21 08:00 Pulse Ox 92 L 10/31/21 08:00 Intake & Output 10/30/21 10/31/21 10/31/21 18:59 06:59 18:59 Intake Total 4002.295 0963 575.690 Output Total 1370 1143 130 Balance -157.592 -37 445.690 Weight 86 kg Intake: IV 276 276 46 0.9 Normal Saline @ 20mL/ 240 240 40 hr pressure bag 36 36 6 Intake, IV Titration 646.408 650 379.690 Amount Clevidipine Butyrate 25 5.733 mg In Empty Bag 1 bag @ 1 MG/HR 2 mls/hr IV .Q24H [facility] Rx#:[id number] fentaNYL (PF) 2,500 mcg 250 250 183.693 In Sodium Chloride 0.9% 200 ml @ 0.5 MCG/KG/HR 4. 6 mls/hr IV .Q24H [facility] Rx# :[id number] propofoL 1,000 mg In 390.675 400 195.997 Empty Bag 1 bag @ Titrate IV .Q0M [facility] Rx#: [id number] Tube Feeding 100 120 20 Other 190 60 130 Output: Chest Tube Drainage 58 10 Chest Tube Right 28 Chest Tube Right Pleural 30 10 Urine 1370 1085 120 Other: Voiding Method Indwelling Catheter Indwelling Catheter Indwelling Catheter ABP, PAP, CO, CI - Last Documented Arterial Blood Pressure 116/83 - Exam Physical Exam: Revealed a 61-year-old female in no distress. Head: Atraumatic, normocephalic PEG tube is intact. HEENT:[Neck is supple.] [No neck masses.] [No thyromegaly.] [No JVD.] Chest: [Symmetrical chest expansion crackles and rhonchi at the bases. No change in chest tubes noted on the right side, Cardiac Exam: [Distant S1 and S2, no S3 gallop. No murmur. Abdomen: [Soft, nontender, no megaly, no rebound, no guarding, normal bowel sounds.] Extremities: [No clubbing, trace of bipedal edema, no cyanosis.] Good pulses bilaterally. Neurological Exam: Opens eyes, Patient does not respond to any stimuli. Psychiatric: Cannot assess Skin: No rashes. - Labs CBC & Chem 7: 10/31/21 04:30 10/31/21 04:30 Labs: Abnormal Lab Results - Last 24 Hours (Table) 10/30/21 10/30/21 10/30/21 Range/Units 11:49 17:37 23:47 RBC (3.80-5.40) m/uL Hgb (11.4-16.0) gm/dL Hct (34.0-46.0) % RDW (11.5-15.5) % ABG pCO2 (35-45) mmHg ABG pO2 (83-108) mmHg ABG HCO3 (21-25) mmol/L ABG Total CO2 (19-24) mmol/L ABG O2 Saturation (94-97) % Potassium (3.5-5.1) mmol/L Carbon Dioxide (22-30) mmol/L BUN (7-17) mg/dL Creatinine (0.52-1.04) mg/dL POC Glucose (mg/dL) 158 H 123 H 112 H (75-99) mg/dL Calcium (8.4-10.2) mg/dL 10/31/21 10/31/21 10/31/21 Range/Units 04:30 04:30 05:44 RBC 3.24 L (3.80-5.40) m/uL Hgb 9.3 L (11.4-16.0) gm/dL Hct 30.1 L (34.0-46.0) % RDW 15.7 H (11.5-15.5) % ABG pCO2 63 H (35-45) mmHg ABG pO2 122 H (83-108) mmHg ABG HCO3 39 H (21-25) mmol/L ABG Total CO2 41 H (19-24) mmol/L ABG O2 Saturation 98.9 H (94-97) % Potassium 2.8 L (3.5-5.1) mmol/L Carbon Dioxide 38 H (22-30) mmol/L BUN 19 H (7-17) mg/dL Creatinine 0.38 L (0.52-1.04) mg/dL POC Glucose (mg/dL) (75-99) mg/dL Calcium 8.3 L (8.4-10.2) mg/dL Microbiology - Last 24 Hours (Table) 10/30/21 03:30 Gram Stain - Preliminary Sputum Sputum Culture - Preliminary Assessment and Plan Assessment: Impression: Acute hypoxic respiratory failure secondary to COVID-19 pneumonia and complicated with ARDS. Patient was intubated on 09/25/2021. Status post tracheostomy and PEG tube placement. 10/14/2021. Acute deep vein thrombosis, on Eliquis. Bilateral pneumothoraces requiring bilateral chest tube placement. However since then the left-sided chest tube was removed, right-sided chest tube had to be placed again by Dr. Harris,I placed a right sided thoravent on 10/25/21, status post chest tube placement again on 10/29/2021, and the removal of thoravent on 10/29. Acute COVID-19 pneumonia Subcutaneous emphysema, resolved. Prior history of DVT History of fibromyalgia Degenerative joint disease Mildly elevated liver enzymes secondary to cardona virus infection. Nonsustained ventricular tachycardia, resolved New onset atrial fibrillation on 10/31, patient is already on anticoagulations therapy, placed on Cardizem drip, given Cardizem bolus, cardiology consulted. Recommendation: Continue ventilatory support. Cut down on sedation, continue Seroquel and try to lower fentanyl and propofol. Continue volume control mode of mechanical ventilation.. Tracheostomy care Continue Eliquis at 5 mg twice a day. Continue nutritional support/enteral feeding Continue GI and DVT prophylaxis, patient is on Protonix Continue COVID-19 cocktail Borderline elevated pro calcitonin, will continue Levaquin. 2 days ago I had a full meeting with all the family members and updated them on her condition and given the option of continued medical care as it is, also given the option of comfort care measures, seems to prefer that we continue doing what we are doing at this point. Family is undecided yet about comfort care measures. Patient is critically ill. Critical care time is over 30 minutes. Time with Patient: Greater than 30
--- NOTE | 2021-10-31 11:27 | P.PN ---
Subjective HISTORY OF PRESENTING ILLNESS Cardiac arrhythmia/COVID-19 pneumonia The patient is a 62-year-old female patient who was admitted to the intensive c are unit with COVID-19 pneumonia and subsequently she developed acute hypoxic respiratory failure requiring intubation and mechanical ventilation. The infection was complicated by deep venous thrombosis. 10/31 Patient seen and examined. Cardiology had previously seen patient with echo attempted to be performed however unable to adequately visualize the heart and therefore this was unable to read and ejection fraction. She has had a lengthy recovery with tracheostomy and PEG tube placement and has been off and on vasopressors occasionally however also occasionally hypertensive. Per nursing patient has been fairly unresponsive on ventilator. Currently on 55% FiO2 with a PEEP of 14. Cardiology was asked to reevaluate secondary to brief episode of proximally 45 minutes of A. fib with mild RVR. Initially patient was in sinus rhythm with heart rates 90s to 100s however that one and 2 A. fib with heart rates 110s to 140s for approximately 45 minutes. There was no significant hemodynamic compromise. Cardizem drip had just begun and then she continuously converted back to sinus rhythm. She has been on Eliquis for DVT. PHYSICAL EXAMINATION Vital signs reviewed. CONSTITUTIONAL: No apparent distress, ill appearing HEENT: Head is normocephalic. Pupils are equal, round. Sclerae anicteric. Mucous membranes of the mouth are moist. +trach CHEST EXAMINATION: Lungs are clear to auscultation. No chest wall tenderness is noted on palpation or with deep breathing. HEART EXAMINATION: Regular rate and rhythm. S1, S2 heard. No murmurs, gallops or rub. ABDOMEN: Soft, nontender. Positive bowel sounds. EXTREMITIES: 2+ peripheral pulses, no lower extremity edema and no calf tendern ess. NEUROLOGIC EXAMINATION: Patient is nonresponsive on vent Assessment #1 COVID-19 pneumonia #2 acute hypoxic respiratory failure #3 history of deep venous thrombosis #4 subcutaneous emphysema #5 ventricular arrhythmia in the term of nonsustained VT which has resolved #6 Paroxysmal Afib with mild RVR Plan We will change to oral Cardizem if she is able to tolerate. Check 2-D echo for completeness sake with prior echo unreliable. She is already anticoagulated for DVT however technically CHADSVASC 1 only for female and anticoaugulation more for DVT. Continue supportive care. Prognosis guarded. Objective - Vital Signs Vital signs: Vital Signs Temp 98.2 F 10/31/21 04:00 Pulse 129 H 10/31/21 11:00 Resp 22 10/31/21 11:00 BP 109/68 10/31/21 11:00 Pulse Ox 91 L 10/31/21 11:00 Intake & Output 10/30/21 10/31/21 10/31/21 18:59 06:59 18:59 Intake Total 3875.832 3526 674.690 Output Total 1370 1143 1055 Balance -157.592 -37 -380.310 Weight 86 kg Intake: IV 276 276 115 0.9 Normal Saline @ 20mL/ 240 240 100 hr pressure bag 36 36 15 Intake, IV Titration 646.408 650 379.690 Amount Clevidipine Butyrate 25 5.733 mg In Empty Bag 1 bag @ 1 MG/HR 2 mls/hr IV .Q24H [facility] Rx#:[id number] fentaNYL (PF) 2,500 mcg 250 250 183.693 In Sodium Chloride 0.9% 200 ml @ 0.5 MCG/KG/HR 4. 6 mls/hr IV .Q24H [facility] Rx# :[id number] propofoL 1,000 mg In 390.675 400 195.997 Empty Bag 1 bag @ Titrate IV .Q0M [facility] Rx#: [id number] Tube Feeding 100 120 50 Other 190 60 130 Output: Chest Tube Drainage 58 10 Chest Tube Right 28 Chest Tube Right Pleural 30 10 Urine 1370 1085 1045 Other: Voiding Method Indwelling Catheter Indwelling Catheter Indwelling Catheter ABP, PAP, CO, CI - Last Documented Arterial Blood Pressure 138/79 - Labs CBC & Chem 7: 10/31/21 04:30 10/31/21 04:30 Labs: Abnormal Lab Results - Last 24 Hours (Table) 10/30/21 10/30/21 10/30/21 Range/Units 11:49 17:37 23:47 RBC (3.80-5.40) m/uL Hgb (11.4-16.0) gm/dL Hct (34.0-46.0) % RDW (11.5-15.5) % ABG pCO2 (35-45) mmHg ABG pO2 (83-108) mmHg ABG HCO3 (21-25) mmol/L ABG Total CO2 (19-24) mmol/L ABG O2 Saturation (94-97) % Potassium (3.5-5.1) mmol/L Carbon Dioxide (22-30) mmol/L BUN (7-17) mg/dL Creatinine (0.52-1.04) mg/dL POC Glucose (mg/dL) 158 H 123 H 112 H (75-99) mg/dL Calcium (8.4-10.2) mg/dL 10/31/21 10/31/21 10/31/21 Range/Units 04:30 04:30 05:44 RBC 3.24 L (3.80-5.40) m/uL Hgb 9.3 L (11.4-16.0) gm/dL Hct 30.1 L (34.0-46.0) % RDW 15.7 H (11.5-15.5) % ABG pCO2 63 H (35-45) mmHg ABG pO2 122 H (83-108) mmHg ABG HCO3 39 H (21-25) mmol/L ABG Total CO2 41 H (19-24) mmol/L ABG O2 Saturation 98.9 H (94-97) % Potassium 2.8 L (3.5-5.1) mmol/L Carbon Dioxide 38 H (22-30) mmol/L BUN 19 H (7-17) mg/dL Creatinine 0.38 L (0.52-1.04) mg/dL POC Glucose (mg/dL) (75-99) mg/dL Calcium 8.3 L (8.4-10.2) mg/dL Microbiology - Last 24 Hours (Table) 10/30/21 03:30 Gram Stain - Preliminary Sputum Sputum Culture - Preliminary
[2021-10-31] MEDS: DILTIAZEM ORAL 30 MG TAB PO SCH ×3 (12:12→22:21)
[2021-10-31 12:29] LABS: Glucose,Whole Blood 152 mg/dL (75-99)
[2021-10-31] MEDS ORDERED: Potassium Replacement Protocol 1 EACH MISC MISCELLANE PRN (14:41)
[2021-10-31] MEDS: POTASSIUM BICARBONATE/CIT AC 20 MEQ TABLET.EFF PO SCH (16:46)
[2021-10-31] MEDS: fentaNYL (PF) 2,500 MCG in SODIUM CHLORIDE 0.9% 200 ML IV SCH (17:08)
--- NOTE | 2021-10-31 18:11 | P.PN ---
Progress Note - Text Progress Note Date: 10/31/21 *Live* Natanael Darby [address] [place], [place] [address] Progress Note - Text Patient Name: Matti Estrella Date of : 1960 Patient Status: Inpatient Attending Provider: Juan Trevino Date: 10/30/21 16:53 Initialization Date: 10/30/21 16:53 Progress Note - Text Progress Note Date: 10/30/21 *Live* Natanael Darby [address] [place], [place] [id number] Progress Note - SOAP Patient Name: Matti Estrella Date of : 1960 Patient Status: Inpatient Attending Provider: Juan Trevino Date: 10/29/21 09:13 Initialization Date: 10/29/21 09:13 Subjective Progress Note Date: 10/29/21 This is a 61-year-old female who was recently admitted with acute COVID-19 pneumonia with acute COVID-19 bilateral interstitial pneumonia and also with transaminitis and being closely monitored. Patient remains in the ICU and currently intubated and sedated with an FiO2 of 70% and PEEP is 18. 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 Patient did have a venous Doppler study done recently which showed left leg DVT and patient is maintained on Eliquis will continue. Patient also continues on empiric antibiotics and awaiting for sputum culture finalized. Patient was started on IV cefepime and will continue. Patient is also continued on oral dexamethasone along with vitamin and zinc supplements and will continue. Patient with some mild volume overload and given a dose of IV Lasix push today. 09/29/2021 Patient is seen and evaluated this morning continues to be closely monitored in the ICU and continues to be on mechanical ventilation and sedated. FiO2 was increased at 80% with a PEEP of 18 and oxygen saturations between 87-91%. Patient developing subcutaneous emphysema in the neck and chest wall area and chest x-ray today shows bilateral multifocal and confluent opacification is redemonstrated consistent with COVID-19 infection with a new small left apical pneumothorax estimated under 5% with new pneumomediastinum and recurrent overlying subcutaneous emphysema noted. Patient is white blood count mildly elevated at 16.1 and is continued on oral dexamethasone along with oral eliquis for anticoagulation. Patient continues to be on IV cefepime and blood and sputum cultures are negative thus far. 09/30/2021 Patient is seen today continues to be closely monitored in the ICU with multiple medical consultations following. Patient continues to be mechanically intubated and sedated with continued subcutaneous emphysema noted. Chest xray shows a trace left apical pneumothorax that is minimally smaller 7mm versus 1cm previously, extensive bilateral subcutaneous emphysema persists and diffuse interstitial changes and bilateral patchy opacities persist with slight improvem ent in aeration in the lower lungs. Per nursing staff corbin was clogged with copious amounts of white discharge and will add diflucan and corbin catheter has been changed and draining adequately. Patient continues on IV cefepime. Patient tolerating tube feeds and will continue. 10/01/2021 Patient is seen and evaluated in follow up this morning and continues to be closely monitored. Multiple medical consultations following and patient continues to be on mechanical vent and sedated. Patient continues on IV Cefepime and diflucan. Patient chest xray today shows stable extensive subcutaneous emphy sema, no pneumothorax, and patchy bilateral lung infiltrates remain present. INflammatory markers trending down. 10/04/2021 Patient is seen in follow-up continues to be closely monitored in the ICU. Patient remains on mechanical vent with an FI02 of 65% and peep is 18. Weaning trials being attempted with pulmonary mend worker following closely. Patient continues with extensive subq emphysema noted on exam. 10/05/2021 Patient Is seen and evaluated this morning with continued attempts at weaning and continues on mechanical vent and intubated with pulmonary mend worker following closely. Patient remains on Eliquis which will be held as surgery Dr. Nelson was consulted for possible PEG and trach tube placement for unsuccessful attempts at weaning from ventilation and prolonged hospitalization on mechanical vent. Chest x-ray today shows recurrent tiny left apical pneumothorax estimated under 5% with worsening overlying subcutaneous emphysema and again pneumomediastinum redemonstrated with multifocal confluent opacification's redemonstrated consistent with COVID-19 infection and/or arts are redemonstrated with no significant change from one day previously. Patient continues on FiO2 of 65% and PEEP was weaned down to 14 today. IV cefepime discontinued. 10/06/2021 Patient is seen in follow-up this morning per nursing staff patient had multiple runs of ectopy an irregular heart rate and rhythms with PVCs and cardiology consulted. Patient was placed on lidocaine drip and was originally on eliquis is currently on hold for possible PEG and trach placement with general surgery following. Patient had difficulty maintaining oxygen saturations and FiO2 was increased to 100% and PEEP continues at 14. Multiple medical consultations following and patient continues on oral steroids along with vitamin and zinc supplements along with fluconazole. Patient being started on IV Lasix daily and recommend close monitoring of electrolytes and kidney functions. 10/07/2021 Patient is seen in follow-up this morning continues to be monitored closely in the ICU with multiple medical consultations following. Patient is currently on mechanical vent with an FiO2 of 80% and PEEP is 16. General surgery also following for possible PEG and trach placement and will need to discuss with surgery about when this will occur. Patient remains on fluconazole. She also continues on vitamin and zinc supplements along with oral dexamethasone, clevidipine, Nimbex, IV Lasix, fentanyl and propofol and is off norepinephrine. Chest x-ray shows stable bilateral lung infiltrates. 10/08/2021 Patient is seen this morning continues to be on mechanical vent with an FiO2 of 85% and PEEP of 16. Patient continues with extensive subcutaneous emphysema and plans are for possible PEG and trach placement although on hold until possibly next week once more stable. Patient continues on Cleviprex along with fentanyl and propofol and is receiving IV Lasix daily. Patient also continues on lidoc santosh drip which is currently on hold and cardiology is following closely. Anticoagulant was resumed for now again until more stable to undergo PEG and trach placement. Chest x-ray today shows persistent bilateral multifocal and confluent increased opacification is with persistent overlying subcutaneous emphysema noted in pneumomediastinum is again redemonstrated. 10/09/2021 Patient evaluated today in ICU mechanical ventilation with FiO2 of 80%. Chest x-ray this morning shows similar multifocal airspace opacities and stable support lines and tubes. Similar subcutaneous emphysema scattered throughout the visualized thorax. PEG and trach plan for next week once more stable. Current meds include Cleviprex, Nimbex, fentanyl, propofol. She is receiving IV fluconazole, as well as IV Lasix. Levophed and Lidocaine gtt;s are on hold. Positive bowel sounds. Current vitals afebrile, heart rate 71, blood pressure 135/60 and oxygen saturation is 93%. Respirations 30. Labs today, white count 17, hemoglobin 11.6, sodium 139, potassium 3.8, BUN 34, creatinine 0.91, CO2 33, calcium 8.7, ALT 54, albumin 2.8 with blood sugars in the 100s. 10/10/2021 Patient evaluated today in the ICU on the mechanical VENT with fio2 of 100%. Positive bowel movement today, Stage 2 pressure ulcer on coccyx per RN, optifoam ordered. Per RN they were unable to patient as she was desaturating. They're unable to wean Fi02 currently as she does desaturate with any time of movement. She was lying more on her right side during evaluation and pulse ox was dropping into high 80s she was being repositioned by nurses. Plan is to PEG/TRACH patient tomorrow. Last family update was 4 days ago. We will call and discuss case today. Patient is afebrile, heart rate 84, respirations 30, blood pressure 141/55, 92% oxygen saturation on 100% Fi02, which was increased today up from 70 Fi02%. Labs today show WBC of 15.6, hgbl 10.7, sodium 138, potassium 3.9, chloride 100, CO2 37, glucose 117, calcium 8.2. Chest xray today shows pneumonia, ARDS. 10/11/2021 Patient is seen and evaluated in follow-up this morning continues to be closely monitored in the ICU and patient is continued on FiO2 of 90% and PEEP is 16 with multiple medical consultations following. Chest x-ray today shows new left- sided pneumothorax estimated 10-20% with overlying subcutaneous emphysema and pneumomediastinum redemonstrated with bilateral multifocal and confluent opacification's redemonstrated consistent with COVID-19 infection and/or arts and no significant change from one day previous. Patient is status post left chest tube insertion with pulmonary mend worker. Cardiology following and patient is off lidocaine drip and maintaining sinus rhythm. Patient also continues on vitamin and zinc supplements along with oral dexamethasone and patient continues on IV Lasix 40 mg daily. Patient also continues off norepinephrine and is currently maintained on IV cefepime along with fluconazole. General surgery following as well and plan is for peg and trach placement in the am 10/12/2021 Patient is seen in the ICU this morning continues to be closely monitored by multiple medical consultations. Patient was scheduled for PEG and trach placement with general surgery Dr. Nelson today although canceled as patient became hypotensive requiring Levophed along with acute blood loss anemia and hemoglobin dropped to 6.5 this morning requiring 1 unit of PRBC. Patient continues with left chest tube with pneumothorax and chest x-ray today shows the jahaira is difficult to clearly identify on the present exam and the ET tube may be approximately 1 cm from the jahaira and there are bilateral chest tubes present with continued diffuse interstitial opacification is and more focal bibasilar opacification is with subcutaneous emphysema persists along the upper chest with slight improvement on the left. No appreciable pneumothorax noted. Patient having worsening right pleural effusion last night and received a right-sided chest tube with pulmonary mend worker. FiO2 is 90% and PEEP of 16. Again overall prognosis remains extremely poor and guarded. 10/13/2021 Patient is seen in follow-up this morning in the ICU with multiple medical consultations following. Lengthy discussion was had with pulmonary mend worker and family members and would like to continue with full CODE STATUS and plan is in place for PEG tube and tracheostomy placement tomorrow. Anticoagulant on hold and Dr. Nelson plans for surgery tomorrow. Patient continues on oral dexamethasone along with IV cefepime, vitamin and zinc supplements. Patient also continues on Cleviprex and Nimbex. Patient also continues on fentanyl and propofol and will continue. Chest x-ray today shows stable portable chest with bilateral chest tubes without sizable pneumothorax identified and continued subcutaneous air persists with persistent interstitial changes bilaterally with airspace disease in the bilateral lung bases that are unchanged. FiO2 is 60% and PEEP of 16. 10/14/2021 Patient is seen and evaluated in the ICU being closely monitored with multiple medical consultations following. at the bedside today and had detailed discussion with overall prognosis. Plan is to proceed with PEG tube and tracheostomy placement with surgery Dr. Nelson today and anticoagulant continues to be on hold for this procedure. Patient continues on mechanical ventilation with an FiO2 of 70% and PEEP of 16. Chest x-ray today shows improving infiltrate with bibasilar residual and bilateral chest tubes remain present with no pneumothorax evident on either side and again subcutaneous emphysema is noted. 10/15/2021 Patient is seen in the ICU being closely monitored. Patient is status post PEG and trach placement yesterday. Chest x-ray today shows bilateral patchy lung infiltrates greater at the right base with diffuse increased lung markings and bilateral chest tubes remain present and subcutaneous emphysema on the right is diminished. Patient continues with an FI02 of 60 and peep is 16. To resume tube feeds per surgery. Patient continues on norepinephrine and sedation. Patient is receiving IV lasix daily. 10/16/2021 Patient is currently in the MICU and remains on ventilator. Status post tracheostomy and PEG tube placement on 10/14/2021. Patient is sedated and paralyzed. Also on Cleviprex. Chest x-ray showed no acute cardiopulmonary disease with no interval changes. Laboratory data showed WBC 16.9 hemoglobin 8.9 and platelets 278 BUN 19 and creatinine 0.5 and calcium 8.1 patient is being continued on dexamethasone 6 mg daily, Lasix 40 mg IV daily and multivitamins and anticoagulation with Eliquis. Pulmonary and general surgery is on board. 10/17/2021 Patient is in the MICU. Remains on the current ventilator via tracheostomy. Status post tracheostomy and PEG tube placement on 10/14/2021. Sedated and paralyzed and also on fentanyl drip. Currently on assist control with tidal volume of 420, FiO2 80% and PEEP of 16. Respiratory of 30. Chest x-ray showed no interval change in acute cardiopulmonary disease Laboratory data showed WBC 15.8 hemoglobin 8.2 and platelets 271 Sodium 136 potassium 3.1 chloride 100 bicarb is 32 BUN 21 creatinine 0.48 and albumin 2.3 Patient is being continued on Lasix IV, dexamethasone and anticoagulation with Eliquis. 10/18/2021 Patient is seen in follow-up and continues in the ICU with multiple medical consultations following. Patient continues on mechanical vent with an FI02 of 70% and peep is 16. Chest xray shows overall stable exam with interstitial changes and bilateral patchy infiltrates with right greater than left and greater at the bases with bilateral chest tubes noted. no appreciable pneumothorax. Patient continues on propofol and fentanyl along with cleviprex and rocuronium. Eliquis has been resumed. Potassium is 3.3 and will be replaced per protocol. Patient also continues to receive IV lasix daily. 10/19/2021 Patient is seen this morning and continues to be in the ICU with multiple medical consultations following. Patient continues with bilateral chest tubes and remains on mechanical ventilation with an FiO2 of 65% and PEEP is 16. Chest x-ray today shows Bilateral multifocal and confluent opacification greatest in the lower lungs consistent with COVID-19 infection and/or ARDS all redemonstrated with no significant change from one day earlier and continued bilateral chest tubes without pneumothorax redemonstrated. 10/20/2021 Patient continues to be in the ICU under close critical monitoring with multiple medical consultations following. Patient continues with bilateral chest tubes although per nursing staff may possibly discontinued today. Chest x-ray today shows stable portable chest with no change in scattered mixed interstitial and alveolar infiltrates. Patient remains on mechanical ventilation via tracheostomy with an FiO2 of 55% and PEEP is 15. Patient continues on Cleviprex along with rocuronium and sedation. 10/21/2021 Patient continues in the MICU being closely monitored. Chest tubes were removed today and chest xray stable with interstitial changes and basilar ground glass, that is similar to previous with slight improvement. Patient continues on mechanical vent with an FI02 of 70% and peep is 14. Patient remains sedated and per nursing staff working on weaning paralytics. Patient continued on rocuronium. Patient is tolerating tube feeds and also continues on IV lasix daily with generalized edema noted throughout. 10/22/2021 Patient is currently MICU. Patient was taken off paralytic and chest tubes yesterday. Continued on pressure support with PEEP of 13. 88 this morning patient again desaturated. Patient became hypotensive and patient was started on norepinephrine. Chest x-ray showed large pneumothorax on the right. Right chest tube was reinserted. Patient is on pressure control. Remains sedated and mechanically ventilated. Laboratory data showed WBC 13.7 hemoglobin 7.7 and platelets 314 Sodium 140 potassium 3.0 chloride 102 bicarb is 37 BUN 19 and creatinine 0.44 and calcium 8.1 Patient is being continued dexamethasone multivitamins and anticoagulation with Eliquis. Patient is also on IV Lasix. Potassium will be replaced. 10/23/2021 Patient is currently MICU. Patient is on mechanical ventilator via trach tube. Patient developed right-sided tension pneumothorax. Again patient had issues with pneumothorax around 10 PM yesterday. Chest tube has to be replaced. Patient is also requiring pressor support. Off pressors this morning. On pressure support. PEEP of 13 and FiO2 100%. Laboratory data showed WBC 13.7 hemoglobin 7.7 and platelets 314 Sodium 140 potassium 3.0 chloride 102 bicarb is 37 BUN 19 and creatinine 0.44 and calcium 8.1 cultures have been negative. Patient is being current on dexamethasone, Eliquis and also IV Lasix 40 mg daily. 10/24/2021 Patient is currently in the MICU. Currently on mechanical ventilator via tracheal tube. Continue propofol and fentanyl. Remains pressure support with PEEP of 13 FiO2 reduced to 70%. Chest x-ray showed bilateral multifocal and confluent opacities consistent with COVID-19 infection and ARDS are redemonstrated and stable. Right-sided chest tube with small apical pneumothorax estimated 10 to 15% improved from 1 day earlier. Pneumo mediastinum noted. Laboratory data showed WBC 14.2 hemoglobin 7.1 and platelets 317 Sodium 140 potassium 3.2 chloride 104 bicarb is 38 BUN 20 and creatinine 0.46 and calcium 7.8. Patient is being continued on dexamethasone, Eliquis and also on IV Lasix. Cur rently on multivitamins. 10/25/2021 Patient is seen this morning continues to be in the ICU with close monitoring. Patient continues on mechanical vent via tracheostomy and FiO2 of 65% with a PEEP of 13. Chest x-ray this morning shows right-sided chest tube in place with continued small to moderate right sided pneumothorax slightly smaller in the interval, apical component measuring 2.3 cm versus 2.8 cm previously along with interstitial opacities persist in pneumonitis versus mild pulmonary edema, status post right side thoravent place this morning with pulmonary mend worker showing resolution of the apical and lateral components of the pneumothorax and 5 mm basilar components remain. Patient requiring more oxygen supplementation and FiO2 being increased to 75%. Hemoglobin found to be 6.3 and awaiting to receive a unit of PRBC. Patient also continues on Nimbex along with Cleviprex, oral dexamethasone, vitamin and zinc supplements along with oral eliquis, along with fentanyl and propofol for sedation. 10/26/2021 Patient is seen in follow-up today continues on mechanical ventilation with an FiO2 of 75% which is currently titrating down to 65% per nursing staff with an FiO2 of 13. Patient continues on Cleviprex and Nimbex and attempts at weaning although not tolerating well. Patient also continues on fentanyl and propofol for sedation. Chest x-ray today shows a right-sided thoracic vent and chest to both present and overlying appropriate positions with minimal right-sided apical pneumothorax present and persistent bilateral interstitial groundglass opacities noted with no evident pleural effusion to correlate for pneumonia. Hemoglobin improved to 8.7 today after 1 unit of PRBC. Will continue to monitor closely. 10/27/2021 Patient is seen today continues to be closely monitored in the ICU on mechanical vent via tracheostomy with an FiO2 of 70% and PEEP is 13. Patient continues on IV Lasix daily along with propofol and fentanyl for sedation. Patient also continues to be on Cleviprex as blood pressure is elevated. Per nursing staff attempts at weaning some sedation although patient not tolerating well. Patient continues with chest tubes on the right and there is an air leak noted and also continues with thoravent on the right. Chest x-ray today shows enlarging right- sided pneumothorax estimated at 15% with no significant change in interstitial infiltrate seen bilaterally. 10/28/2021 Patient is seen in the ICU this morning continues on mechanical ventilation with a FI02 of 85% and peep is 13. Patient continues on propofol for sedation along with Nimbex and also patient is on norepinephrine with hypotension at times. Chest xray today shows continued diffuse interstitial infiltrates with continued right side pneumothorax slightly larger in the interval, apical component measuring 1.9cm versus 1.5. Potassium was found to be 3.0 and being replaced. 10/29/2021 Patient is seen and evaluated today and continues to be closely monitored in the ICU. Multiple medical consultations following. Patient continues on mechanical ventilation via tracheostomy and also PEG tube with tube feedings and tolerating. FiO2 is currently 60% with a PEEP of 14. Cleviprex is currently off and patient continues on decreased doses of sedation. Patient also continues on IV Levaquin and will continue. Patient is currently off of Levophed and Nimbex. Patient was continued on 40 mg of Lasix daily which is currently being increased to twice daily and will continue to monitor closely. Patient's potassium was found to be 2.8 today and being replaced per protocol. Chest x-ray this morning showed a continued right-sided pneumothorax increasing in size currently estimated at 40% and emergent chest tube placement on the right was performed by pulmonary mend worker and subsequent removal of right side thoravent. Repeat chest x-ray showed a diminished right sided pneumothorax on the right and increasing diffuse infiltrates greater on the right. 10/30/21 This patient is still on the vent. Vent settings are noted. The patient continues to be unresponsive. Blood pressure is fluctuating. Dr. Alejandro is following the patient closely. Family updated. Prognosis guarded. Lites monitored. See orders for further details. 10/31/2021 This patient remains to be on the vent. The patient has significant difficulties in weaning off from the vent. The pneumothorax on the right seemed to be little improving. Patient has chest tubes in situ. Patient also developed atrial fibrillation faster [place]. The patient is mechanically intubated. Cardizem initiated. Cardiology is consulted. Dr. Alejandro is following the patient closely. The family at the bedside updated about the prognosis. Review of systems: Unable to obtain as patient is mechanically intubated and sedated Labs: WBC is 7.8, hgb 9.1, plt 329, sodium 140, potassium 2.8, bun 21, creatinine 0.36, calcium 8.0 Active Medications Apixaban (Apixaban 5 Mg Tab) 5 mg PO BID [facility]; Protocol Last Admin: 10/29/21 10:14 Dose: 5 mg Documented by: Artificial Tears (Artificial Tears-Hypromellose Drops 15 Ml Btl) 2 drops BOTH EYES QID [facility] Last Admin: 10/29/21 12:24 Dose: 2 drops Documented by: Ascorbic Acid (Ascorbic Acid 500 Mg Tab) 500 mg PO BID [facility] Last Admin: 10/29/21 10:14 Dose: 500 mg Documented by: Dexamethasone (Dexamethasone 2 Mg Tab) 4 mg PO DAILY [facility] Last Admin: 10/29/21 10:15 Dose: 4 mg Documented by: Docusate Sodium (Docusate Oral Soln 100 Mg/10 Ml Cup) 100 mg PO DAILY PRN PRN Reason: Constipation Last Admin: 10/18/21 15:53 Dose: 100 mg Documented by: Ergocalciferol (Ergocalciferol 1,250 Mcg (50,000 Iu) Capsule) 1,250 mcg PO [place] [facility] Last Admin: 10/24/21 09:11 Dose: Not Given Documented by: Furosemide (Furosemide 10 Mg/Ml 4 Ml Vial) 40 mg IV DAILY [facility] Last Admin: 10/29/21 10:15 Dose: 40 mg Documented by: Sodium Chloride (Saline 0.9%) 1,000 mls @ 20 mls/hr IV .Q24H [facility] Last Admin: 10/29/21 05:45 Dose: Not Given Documented by: Fentanyl Citrate 2,500 mcg/ (Sodium Chloride) 250 mls @ 4.6 mls/hr IV .Q24H [facility]; Protocol Last Admin: 10/29/21 04:23 Dose: 2 mcg/kg/hr, 18.4 mls/hr Documented by: Clevidipine 25 mg/ IV Solution 50 mls @ 2 mls/hr IV .Q24H [facility]; Protocol Last Titration: 10/28/21 19:00 Dose: 0 mg/hr, 0 mls/hr Documented by: Norepinephrine Bitartrate 8 mg (/ Sodium Chloride) 258 mls @ 9.143 mls/hr IV .Q24H [facility]; Protocol Last Admin: 10/29/21 08:48 Dose: Not Given Documented by: Propofol 1,000 mg/ IV Solution 100 mls @ 0 mls/hr IV .Q0M [facility]; Protocol Last Titration: 10/29/21 12:23 Dose: 30 mcg/kg/min, 16.74 mls/hr Documented by: Levofloxacin 500 mg/ IV (Solution) 100 mls @ 100 mls/hr IVPB Q24H [facility] Last Admin: 10/29/21 10:15 Dose: 100 mls/hr Documented by: Insulin Aspart (Insulin Aspart (Novolog) 100 Unit/Ml Vial) 0 unit SQ Q6HR [facility]; Protocol Last Admin: 10/29/21 11:40 Dose: Not Given Documented by: Miscellaneous Information (Pneumonia Protocol Utilized 1 Each Misc) 1 each PO ONCE PRN PRN Reason: Per Protocol Miscellaneous Information (Potassium Replacement Protocol 1 Each Misc) 1 each MISCELLANE DAILY PRN; Protocol PRN Reason: Per Protocol Naloxone HCl (Naloxone 0.4 Mg/Ml 1 Ml Vial) 0.2 mg IV Q2M PRN PRN Reason: Opioid Reversal Pantoprazole Sodium (Pantoprazole 40 Mg/10 Ml Vial) 40 mg IV DAILY [facility] Last Admin: 10/29/21 10:15 Dose: 40 mg Documented by: Potassium Bicarbonate (Potassium Bicarbonate/Cit Ac 20 Meq Tablet.Eff) 20 meq PO BID [facility] Quetiapine Fumarate (Quetiapine 25 Mg Tab) 25 mg PO BID [facility] Last Admin: 10/29/21 10:15 Dose: 25 mg Documented by: Zinc Sulfate (Zinc Sulfate 220 Mg Cap) 220 mg PO DAILY [facility] Last Admin: 10/29/21 10:14 Dose: 220 mg Documented by: Physical Exam: Gen: This is a 61-year-old female currently sedated and intubated. mechanical ventilation Fio2 increased today to 60% with a PEEP of 14. Temp is 98F, pulse is 68, respirations are 26, blood pressure arterial is 129 were 44, oxygen saturation is 92% on 60% FiO2. HEENT: Head is atraumatic, normocephalic. Pupils equal, round. Sclerae is anicteric. tracheostomy noted NECK: Supple. No JVD. No lymphadenopathy. No thyromegaly. tracheostomy noted LUNGS: Diminished breath sounds bilaterally with coarse rhonchi and crackles noted. No intercostal retractions. Right side chest tube and thoravent noted HEART: S1, S2 are muffled ABDOMEN: Soft. Obese. Bowel sounds are present. No masses. No tenderness. peg tube noted. EXTREMITIES: No pedal edema. No calf tenderness. generalized edema noted NEUROLOGICAL: Patient is currently intubated and sedated Assessment: Acute COVID-19 infection with acute COVID-19 bilateral interstitial pneumonia with hypoxic hypercarbic respiratory failure on mechanical vent status post trac h and peg tube placement on 10/14/2021 Worsening right side pneumothorax status post chest tube placement and thoravent removal on 10/29/2021 bilateral pneumothoraces with chest tube placement and status post removal of chest tubes 2.3.2021 Status post reinsertion of chest tubes on 10/22/2021 due to a tension pneumothorax on the right, status post thoraVent placement as well on the right on 10/25/2021, worsening pneumothorax on the right with continued air leak of the chest tube Acute blood loss anemia secondary to bilateral chest tube placements, possible hypovolemic shock requiring pressor support, currently hypertensive and off pressors, currently improved Non-sustained ventricular tachycardia, currently sinus Acute left leg deep vein thrombosis Acute respiratory acidosis Primary hypercoagulable state and factor V deficiency Mild transaminitis, possibly secondary to COVID-19 History of degenerative joint disease History of fibromyalgia Elevated inflammatory markers of COVID-19 Obesity with a body mass index of 38.1 Full code Atrial fibrillation with the fasting to tolerate Plan: Recommend to continue with current medications and follow along closely with multiple medical consultations. Prognosis remains extremely poor and guarded with multiple complex medical issues noted. Patient continues on mechanical ventilation via tracheostomy and FiO2 60% with PEEP of 13. Recommend to continue with current medications. Currently attempting to wean some sedation and decrease the dose of fentanyl and propofol to better assess mentation although patient does not tolerate well. Patient continues with right side chest tube and urgently had to replace the chest tube this morning for worsening pneumothorax as noted on chest x-ray and also thoravent on the right was removed . Patient continues off Nimbex since yesterday. Recommend repeat labs and chest x-ray in a.m. and continued close monitoring. Again due to multiple complex medical issues overall prognosis is extremely poor and quite guarded. We'll continue monitoring. Prognosis guarded. Continue the Cardizem and progress of the medications O
[2021-10-31 18:59] LABS: Glucose,Whole Blood 115 mg/dL (75-99)
[2021-11-01 00:30] LABS: Glucose,Whole Blood 94 mg/dL (75-99)
[2021-11-01] MEDS: INSULIN ASPART (NovoLOG) 100 UNIT/ML VIAL SQ SCH ×4 (00:33→18:11)
[2021-11-01] MEDS: SODIUM CHLORIDE 0.9% 1,000 ML IV SCH (00:34)
[2021-11-01] MEDS ORDERED: POTASSIUM BICARBONATE/CIT AC 20 MEQ TABLET.EFF NG-TUBE SCH ×2 (01:00→06:00)
[2021-11-01 04:43] LABS: HCT 31.5 % (34.0-46.0); HGB 9.3 gm/dL (11.4-16.0); Hypochromasia Marked; MCH 27.1 pg (25.0-35.0); MCHC 29.6 g/dL (31.0-37.0); MCV 91.4 fL (80.0-100.0); Mean Platelet Volume 7.8; Platelet Count 338 k/uL (150-450); Poikilocytosis Slight; RBC 3.44 m/uL (3.80-5.40); RDW 15.8 % (11.5-15.5); WBC 7.8 k/uL (3.8-10.6)
[2021-11-01 04:55] LABS: African American GFR (CKD) >90 (>60 ml/min/1.73 sqM); Anion Gap 1 mmol/L; Blood Urea Nitrogen 15 mg/dL (7-17); Calcium 8.6 mg/dL (8.4-10.2); Carbon Dioxide 39 mmol/L (22-30); Chloride 99 mmol/L (98-107); Glucose 89 mg/dL (74-99); Non-African American GFR(CKD) >90 (>60 ml/min/1.73 sqM); Potassium 3.6 mmol/L (3.5-5.1); Sodium 139 mmol/L (137-145)
[2021-11-01] MEDS: DILTIAZEM ORAL 30 MG TAB PO SCH ×4 (05:42→20:14)
[2021-11-01] MEDS: CLEVIDIPINE BUTYRATE 25 MG in EMPTY BAG 1 BAG IV SCH ×2 (05:48→09:42)
[2021-11-01 05:55] LABS: ABG Base Excess 15.2 mmol/L; ABG PCO2 63 mmHg (35-45); ABG PH 7.41 (7.35-7.45); ABG PO2 72 mmHg (83-108); ABG TCO2 42 mmol/L (19-24); Allen Test Performed? Yes
[2021-11-01 05:56] LABS: ABG HCO3 40 mmol/L (21-25)
--- NOTE | 2021-11-01 07:58 | XR ---
EXAMINATION TYPE: XR chest 1V portable DATE OF EXAM: 11/01/2021 Comparison: 10/31/2021 Clinical History: 61-year-old female increased work of breathing Findings: ACDF hardware. Tracheostomy cannula. Redemonstrated are 2 right-sided chest tubes. There is a small r ight-sided pneumothorax redemonstrated. Lateral and lateral basilar components are now apparent measu ring up to 5 mm at the base. 2.3 cm at the right apex versus 1.8 cm, previously. Diffuse patchy inte rstitial opacities persist without significant change. Impression: 1. Interval increase in size of small right-sided pneumothorax. Apical component 2.3 cm versus 1.8 cm , previously. A lateral basilar component is now seen measuring 5 mm. [address] in place. 2. Similar diffuse patchy interstitial opacities.
[2021-11-01] MEDS: fentaNYL (PF) 2,500 MCG in SODIUM CHLORIDE 0.9% 200 ML IV SCH ×2 (09:30→20:20)
[2021-11-01] MEDS ORDERED: CLEVIDIPINE BUTYRATE 25 MG/50 ML VIAL IV ONE (09:38)
[2021-11-01] MEDS: PANTOPRAZOLE 40 MG/10 ML VIAL IV SCH (10:01)
[2021-11-01] MEDS: POTASSIUM BICARBONATE/CIT AC 20 MEQ TABLET.EFF PO SCH ×3 (10:01→20:13)
[2021-11-01] MEDS: METOPROLOL TARTRATE 50 MG TAB PO SCH ×2 (10:01→20:13)
[2021-11-01] MEDS: APIXABAN 5 MG TAB PO SCH ×2 (10:02→20:13)
[2021-11-01] MEDS: ASCORBIC ACID 500 MG TAB PO SCH ×2 (10:02→20:13)
[2021-11-01] MEDS: predniSONE 20 MG TAB PO SCH (10:02)
[2021-11-01] MEDS: ZINC SULFATE 220 MG CAP PO SCH (10:02)
[2021-11-01] MEDS: ARTIFICIAL TEARS-HYPROMELLOSE DROPS 15 ML BTL BOTH EYES SCH ×4 (10:03→20:13)
--- NOTE | 2021-11-01 10:14 | P.PN ---
Subjective Progress Note Date: 11/01/21 Principal diagnosis: Acute hypoxic respiratory failure secondary to COVID-19 pneumonia On 11/01/2021 patient seen in follow-up in the intensive care unit, she remains trached to the ventilator, and sedated, she is currently on assist control with a rate of 26, tidal arm is 350, FiO2 of 70% and PEEP of 14, this morning's blood gas shows pO2 of 72, pCO2 of 63 and pH of 7.41. Today's chest x-ray showing interval increase in the size of small right-sided pneumothorax with apical component of 2.3 cm versus 1.8 cm previously. Bilateral basilar component is now seen measuring 5 mm, there are [address] place. In and there is similar diffuse patchy interstitial opacities. 2 right-sided chest tubes are to wall suction, with no evidence of leak. Patient is sedated with Diprivan and at 75 mics per kilo per minute, fat no added 2.5 mics per kilo per minute, 0.9 normal saline at 10, Cleviprex is up 4 mg per hour. She is on the tube feedings with vital HP at 10 with a goal of 10, is standard water flushes with 30 mL of water every 4 hours. Patient has not been tolerating sedation holidays very well for the past several days and become quite agitated h ypertensive, and starts having unstable vital signs. The patient has not had any weaning trials thus far. Today's labs have been reviewed, white blood cell, 7.8, hemoglobin is 9.3, platelet count is 338, sodium is 139, potassium 3.6, chloride is 99, CO2 is 39, BUN is 15, creatinine 0.39. Patient remains on Levaquin, she has had blood and sputum cultures that have shown no growth thus far, sputum Gram stain from 10/30/2021 showed many PMNs, rare epithelial cells, many gram-positive bacilli and few gram-negative bacilli and few gram-positive cocci. She had some low-grade fevers overnight. Patient has been tachycardic in the sinus mechanism with a rate of 125 BPM. She is on oral Cardizem at 30 mg 4 times a day for recent history of runs of A. fib with RVR. She is on Eliquis for anticoagulation. As far as COVID-19 treatment she is on Decadron 4 mg daily she is on multivitamins. Her last set of inflammatory markers back on 10/01/2021 showed LDH within normal limits at 531, and CRP of 2.1. Most recent pro- calcitonin from 10/29/2021 was 0.23. Patient has not required any vasopressor support, she is actually been hypertensive and for that reason we will add metoprolol 50 mg twice daily for improved blood pressure control. Objective - Vital Signs Vital signs: Vital Signs Temp 99.5 F 11/01/21 08:00 Pulse 124 H 11/01/21 08:00 Resp 21 11/01/21 08:00 BP 109/68 11/01/21 08:00 Pulse Ox 91 L 11/01/21 08:00 Intake & Output 10/31/21 11/01/21 11/01/21 18:59 06:59 18:59 Intake Total 0314.893 4719.433 128.17 Output Total 1670 880 80 Balance -458.759 173.433 48.17 Intake: IV 253 276 46 0.9 Normal Saline @ 20mL/ 220 240 40 hr pressure bag 33 36 6 Intake, IV Titration 648.241 567.433 72.17 Amount Clevidipine Butyrate 25 0 15.6 mg In Empty Bag 1 bag @ 1 MG/HR 2 mls/hr IV .Q24H [facility] Rx#:[id number] Diltiazem 125 mg In 8.5 Sodium Chloride 0.9% 100 ml @ 5 MG/HR 5 mls/hr IV .Q24H [facility] Rx#:[id number] fentaNYL (PF) 2,500 mcg 250.000 193.43 56.57 In Sodium Chloride 0.9% 200 ml @ 0.5 MCG/KG/HR 4. 6 mls/hr IV .Q24H [facility] Rx# :[id number] propofoL 1,000 mg In 389.741 374.003 Empty Bag 1 bag @ Titrate IV .Q0M [facility] Rx#: [id number] Tube Feeding 120 120 10 Other 190 90 Output: Chest Tube Drainage 10 10 10 Chest Tube Right 0 Chest Tube Right Pleural 10 10 10 Urine 1660 870 70 Other: Voiding Method Indwelling Catheter Indwelling Catheter ABP, PAP, CO, CI - Last Documented Arterial Blood Pressure 115/57 - Exam GENERAL EXAM: Sedated, trached to the ventilator, on assist control mode of ventilation with a rate of 26, tidal 350, FiO2 of 70% and PEEP of 1193-jffv-ema white female, comfortable in no apparent distress. HEAD: Normocephalic/atraumatic. EYES: Normal reaction of pupils, equal size. Conjunctiva pink, sclera white. NOSE: Clear with pink turbinates. THROAT: No erythema or exudates. NECK: No masses, no JVD, no thyroid enlargement, no adenopathy. CHEST: No chest wall deformity. Symmetrical expansion. 2 right-sided chest tubes in place, no evidence of air leak, to wall suction LUNGS: Equal air entry with no crackles, wheeze, rhonchi or dullness. CVS: Regular rate and rhythm, normal S1 and S2, no gallops, no murmurs, no rubs ABDOMEN: Soft, nontender. No hepatosplenomegaly, normal bowel sounds, no guarding or rigidity. PEG tube in place with tube feedings infusing with vital HP at a rate of 10 with a goal of 10 EXTREMITIES: No clubbing, mild generalized edema, no cyanosis, 2+ pulses and upper and lower extremities. MUSCULOSKELETAL: Muscle strength and tone normal. SPINE: No scoliosis or deformity SKIN: No rashes CENTRAL NERVOUS SYSTEM: Sedated, trached to the ventilator, does not follow commands. No focal deficits, tone is normal in all 4 extremities. - Labs CBC & Chem 7: 11/01/21 04:05 11/01/21 04:05 Labs: Abnormal Lab Results - Last 24 Hours (Table) 10/31/21 10/31/21 11/01/21 Range/Units 12:27 18:57 04:05 RBC 3.44 L (3.80-5.40) m/uL Hgb 9.3 L (11.4-16.0) gm/dL Hct 31.5 L (34.0-46.0) % MCHC 29.6 L (31.0-37.0) g/dL RDW 15.8 H (11.5-15.5) % ABG pCO2 (35-45) mmHg ABG pO2 (83-108) mmHg ABG HCO3 (21-25) mmol/L ABG Total CO2 (19-24) mmol/L Carbon Dioxide (22-30) mmol/L Creatinine (0.52-1.04) mg/dL POC Glucose (mg/dL) 152 H 115 H (75-99) mg/dL 11/01/21 11/01/21 Range/Units 04:05 05:50 RBC (3.80-5.40) m/uL Hgb (11.4-16.0) gm/dL Hct (34.0-46.0) % MCHC (31.0-37.0) g/dL RDW (11.5-15.5) % ABG pCO2 63 H (35-45) mmHg ABG pO2 72 L (83-108) mmHg ABG HCO3 40 H* (21-25) mmol/L ABG Total CO2 42 H (19-24) mmol/L Carbon Dioxide 39 H (22-30) mmol/L Creatinine 0.39 L (0.52-1.04) mg/dL POC Glucose (mg/dL) (75-99) mg/dL Microbiology - Last 24 Hours (Table) 10/30/21 03:30 Gram Stain - Preliminary Sputum Sputum Culture - Preliminary Assessment and Plan Plan: Assessment: #1. Acute hypoxic respiratory failure related to COVID-19 pneumonia complicated with ARDS. Patient was intubated and on 09/25/2021, status post tracheostomy and PEG tube placement on 10/14/2021. On 11/01/2021 patient remains sedated, an d trach to the ventilator on assist control mode of ventilation with a rate of 26, TV was 350, FiO2 of 70%, and PEEP of 14. She has had ongoing difficulty with sedation holidays, and has remained persistently hypoxic. #2. Bilateral pneumothoraces requiring bilateral chest tube placements, with soto bsequent removal and recurrence of right-sided pneumothorax, requiring placement of another chest tube on the right, and subsequent fluoroscopy vent placement on 10/25/2021, and subsequent removal of the Serevent on 10/29/2021 and placement of another right-sided chest tube on 10/29/2021. Today on 11/01/2021 patient has slightly increased right apical and lateral pneumothorax, please refer to the chest x-ray report, apical pneumothorax measuring 2.3 cm and lateral pneumothorax on the right at 5 mm #3. Acute deep vein thrombosis on Eliquis #4. New-onset A. fib on 10/31/2021, currently in sinus, patient was on Cardizem drip, now on oral Cardizem, remains on Eliquis #5. Subcutaneous emphysema resolved #6. Prior history of DVT #7. Possible superinfection with bacterial pneumonia, currently on Levaquin, so far culture data is negative, awaiting final report on the sputum culture from 10/29/2021 #8. Mildly elevated liver enzymes secondary to COVID-19 #9. Nonsustained ventricular tachycardia resolved #10. History of fibromyalgia #11. Suspect underlying delirium, patient has not been tolerating sedation holidays, patient has been started on Seroquel 50 mg twice a day Plan: Today's chest x-ray, blood gases and labs reviewed Continue with current ventilator settings Continue attempting to wean FiO2 to keep O2 sats at 90% or above Continue the same PEEP We will add prednisone 60 mg daily, discontinue Decadron Continue Levaquin, awaiting final sputum culture We will add metoprolol 50 mg twice daily Wean clevidipine Continue nutritional support Chest tubes will remain in place Follow-up labs, blood gases and chest x-ray in the morning I performed a history & physical examination of the patient and discussed their management with my nurse practitioner, Ashley Granado. I reviewed the nurse practitioner's note and agree with the documented findings and plan of care. Lung sounds are positive for dim breath sounds throughout the lung patterson. The findings and the impression was discussed with the patient. I attest to the documentation by the nurse practitioner. Time with Patient: Greater than 30
[2021-11-01] MEDS: QUEtiapine 50 MG TAB PO SCH ×2 (10:20→21:16)
[2021-11-01] MEDS: LEVOFLOXACIN 500MG-D5W PMX 500 MG in DEXTROSE/WATER 1 100ML.BAG IVPB SCH (10:45)
[2021-11-01 11:21] LABS: Glucose,Whole Blood 149 mg/dL (75-99)
--- NOTE | 2021-11-01 11:37 | P.PN ---
Subjective Progress Note Date: 11/01/21 This is a 61-year-old female who is in the intensive care unit for treatment of respiratory failure related to Coumadin pneumonia complicated by bilateral pneumothorax. We are consulted for management of atrial fibrillation. Patient is currently on Cardizem and also atelectasis. She is in sinus rhythm and sinus tachycardia. Patient had tracheostomy and on respirator. From Cardec standpoint we'll continue current medical therapy. She is also on her face for DVT. Rest of the management as for the intensivists. Objective - Vital Signs Vital signs: Vital Signs Temp 99.5 F 11/01/21 08:00 Pulse 122 H 11/01/21 11:00 Resp 27 H 11/01/21 11:00 BP 109/68 11/01/21 11:00 Pulse Ox 95 11/01/21 11:00 Intake & Output 10/31/21 11/01/21 11/01/21 18:59 06:59 18:59 Intake Total 0321.230 0359.433 237.17 Output Total 1670 880 185 Balance -458.759 173.433 52.17 Intake: IV 253 276 115 0.9 Normal Saline @ 20mL/ 220 240 100 hr pressure bag 33 36 15 Intake, IV Titration 648.241 567.433 72.17 Amount Clevidipine Butyrate 25 0 15.6 mg In Empty Bag 1 bag @ 1 MG/HR 2 mls/hr IV .Q24H [facility] Rx#:[id number] Diltiazem 125 mg In 8.5 Sodium Chloride 0.9% 100 ml @ 5 MG/HR 5 mls/hr IV .Q24H [facility] Rx#:[id number] fentaNYL (PF) 2,500 mcg 250.000 193.43 56.57 In Sodium Chloride 0.9% 200 ml @ 0.5 MCG/KG/HR 4. 6 mls/hr IV .Q24H [facility] Rx# :[id number] propofoL 1,000 mg In 389.741 374.003 Empty Bag 1 bag @ Titrate IV .Q0M [facility] Rx#: [id number] Tube Feeding 120 120 50 Other 190 90 Output: Chest Tube Drainage 10 10 10 Chest Tube Right 0 Chest Tube Right Pleural 10 10 10 Urine 1660 870 175 Other: Voiding Method Indwelling Catheter Indwelling Catheter ABP, PAP, CO, CI - Last Documented Arterial Blood Pressure 94/55 - Exam As per the chart. Patient is not personally examined information is gathered from automotive consultant notes - Labs CBC & Chem 7: 11/01/21 04:05 11/01/21 04:05 Labs: Abnormal Lab Results - Last 24 Hours (Table) 10/31/21 10/31/21 11/01/21 Range/Units 12:27 18:57 04:05 RBC 3.44 L (3.80-5.40) m/uL Hgb 9.3 L (11.4-16.0) gm/dL Hct 31.5 L (34.0-46.0) % MCHC 29.6 L (31.0-37.0) g/dL RDW 15.8 H (11.5-15.5) % ABG pCO2 (35-45) mmHg ABG pO2 (83-108) mmHg ABG HCO3 (21-25) mmol/L ABG Total CO2 (19-24) mmol/L Carbon Dioxide (22-30) mmol/L Creatinine (0.52-1.04) mg/dL POC Glucose (mg/dL) 152 H 115 H (75-99) mg/dL 11/01/21 11/01/21 11/01/21 Range/Units 04:05 05:50 11:20 RBC (3.80-5.40) m/uL Hgb (11.4-16.0) gm/dL Hct (34.0-46.0) % MCHC (31.0-37.0) g/dL RDW (11.5-15.5) % ABG pCO2 63 H (35-45) mmHg ABG pO2 72 L (83-108) mmHg ABG HCO3 40 H* (21-25) mmol/L ABG Total CO2 42 H (19-24) mmol/L Carbon Dioxide 39 H (22-30) mmol/L Creatinine 0.39 L (0.52-1.04) mg/dL POC Glucose (mg/dL) 149 H (75-99) mg/dL Microbiology - Last 24 Hours (Table) 10/30/21 03:30 Gram Stain - Preliminary Sputum Sputum Culture - Preliminary Assessment and Plan (1) Transient atrial fibrillation Current Visit: Yes Status: Acute Code(s): I48.91 - UNSPECIFIED ATRIAL FIBRILLATION SNOMED Code(s): 07820462 (2) DVT (deep vein thrombosis) in Current Visit: Yes Status: Acute Code(s): O22.30 - DEEP PHLEBOTHROMBOSIS IN , UNSPECIFIED TRIMESTER SNOMED Code(s): 80589726 (3) Pneumonia due to COVID-19 virus Current Visit: Yes Status: Acute Code(s): U07.1 - COVID-19; J12.82 - PNEUMONIA DUE TO CORONAVIRUS DISEASE 2018 SNOMED Code(s): 319499955470955787 Plan: Continue Cardizem and anticoagulation. We'll see her as needed
--- NOTE | 2021-11-01 12:22 | ECHOF ---
Referral Reason:A FIB MEASUREMENTS -------- HEIGHT: 157.5 cm WEIGHT: 85.7 kg BP: 109/68 RVIDd: 2.9 cm (< 3.3) IVSd: 1.2 cm (0.6 - 1.1) LVIDd: 3.5 cm (3.9 - 5.3) LVPWd: 1.2 cm (0.6 - 1.1) IVSs: 1.7 cm LVIDs: 2.4 cm LVPWs: 1.6 cm Ao Diam: 2.9 cm (2.0 - 3.7) MV EXCURSION: 10.065 mm (> 18.000) MV EF SLOPE: 51 mm/s (70 - 150) EPSS: 0.6 cm MV E Curt: 0.91 m/s MV DecT: 105 ms MV A Curt: 0.60 m/s MV E/A Ratio: 1.52 FINDINGS -------- Sinus rhythm. Resting tachycardia (HR>100bpm). This was a technically difficult study with suboptimal views. The left ventricular size is normal. There is mild concentric left ventricular hypertrophy. Overa ll left ventricular systolic function is normal with, an EF between 55 - 60 %. The right ventricle is normal in size. The left atrium was not well visualized. The right atrium was not well visualized. 3 ml of Lumason was utilized for enhancement of images. Interatrial and interventricular septum intact. The aortic valve was not well visualized. The mitral valve was not well visualized. The tricuspid valve was not well visualized. The pulmonic valve was not well visualized. The aortic root size is normal. Normal inferior vena cava with less than 50% inspiratory collapse consistent with estimated right atr ial pressure of 15 mmHg. Echo free space may represent effusion or a pericardial fat pad. CONCLUSIONS -------- 1. This was a technically difficult study with suboptimal views. 2. There is mild concentric left ventricular hypertrophy. 3. Overall left ventricular systolic function is normal with, an EF between 55 - 60 %. 4. 3 ml of Lumason was utilized for enhancement of images. 5. The aortic valve was not well visualized. 6. Normal inferior vena cava with less than 50% inspiratory collapse consistent with estimated right atrial pressure of 15 mmHg. 7. Echo free space may represent effusion or a pericardial fat pad. DATA CONTROL ASSISTANT: Amber Merchant RDCS
--- NOTE | 2021-11-01 15:16 | P.PN ---
Subjective Progress Note Date: 11/01/21 This is a 61-year-old female who was recently admitted with acute COVID-19 pneumonia with acute COVID-19 bilateral interstitial pneumonia and also with transaminitis and being closely monitored. Patient remains in the ICU and currently intubated and sedated with an FiO2 of 70% and PEEP is 18. 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 Patient did have a venous Doppler study done recently which showed left leg DVT and patient is maintained on Eliquis will continue. Patient also continues on empiric antibiotics and awaiting for sputum culture finalized. Patient was started on IV cefepime and will continue. Patient is also continued on oral dexamethasone along with vitamin and zinc supplements and will continue. Patient with some mild volume overload and given a dose of IV Lasix push today. 09/29/2021 Patient is seen and evaluated this morning continues to be closely monitored in the ICU and continues to be on mechanical ventilation and sedated. FiO2 was increased at 80% with a PEEP of 18 and oxygen saturations between 87-91%. Patient developing subcutaneous emphysema in the neck and chest wall area and chest x-ray today shows bilateral multifocal and confluent opacification is redemonstrated consistent with COVID-19 infection with a new small left apical pneumothorax estimated under 5% with new pneumomediastinum and recurrent overlying subcutaneous emphysema noted. Patient is white blood count mildly elevated at 16.1 and is continued on oral dexamethasone along with oral eliquis for anticoagulation. Patient continues to be on IV cefepime and blood and sputum cultures are negative thus far. 09/30/2021 Patient is seen today continues to be closely monitored in the ICU with multiple medical consultations following. Patient continues to be mechanically intubated and sedated with continued subcutaneous emphysema noted. Chest xray shows a trace left apical pneumothorax that is minimally smaller 7mm versus 1cm previously, extensive bilateral subcutaneous emphysema persists and diffuse interstitial changes and bilateral patchy opacities persist with slight improvement in aeration in the lower lungs. Per nursing staff corbin was clogged with copious amounts of white discharge and will add diflucan and corbin catheter has been changed and draining adequately. Patient continues on IV cefepime. Patient tolerating tube feeds and will continue. 10/01/2021 Patient is seen and evaluated in follow up this morning and continues to be closely monitored. Multiple medical consultations following and patient c ontinues to be on mechanical vent and sedated. Patient continues on IV Cefepime and diflucan. Patient chest xray today shows stable extensive subcutaneous emphysema, no pneumothorax, and patchy bilateral lung infiltrates remain present. INflammatory markers trending down. 10/04/2021 Patient is seen in follow-up continues to be closely monitored in the ICU. Patient remains on mechanical vent with an FI02 of 65% and peep is 18. Weaning trials being attempted with pulmonary meteorology instructor following closely. Patient continues with extensive subq emphysema noted on exam. 10/05/2021 Patient Is seen and evaluated this morning with continued attempts at weaning and continues on mechanical vent and intubated with pulmonary meteorology instructor following closely. Patient remains on Eliquis which will be held as surgery Dr. Nelson was consulted for possible PEG and trach tube placement for unsuccessful attempts at weaning from ventilation and prolonged hospitalization on mechanical vent. Chest x-ray today shows recurrent tiny left apical pneumothorax estimated under 5% with worsening overlying subcutaneous emphysema and again pneumomediastinum redemonstrated with multifocal confluent opacification's redemonstrated consistent with COVID-19 infection and/or arts are redemonstrated with no significant change from one day previously. Patient continues on FiO2 of 65% and PEEP was weaned down to 14 today. IV cefepime discontinued. 10/06/2021 Patient is seen in follow-up this morning per nursing staff patient had multiple runs of ectopy an irregular heart rate and rhythms with PVCs and cardiology consulted. Patient was placed on lidocaine drip and was originally on eliquis is currently on hold for possible PEG and trach placement with general surgery following. Patient had difficulty maintaining oxygen saturations and FiO2 was increased to 100% and PEEP continues at 14. Multiple medical consultations following and patient continues on oral steroids along with vitamin and zinc supplements along with fluconazole. Patient being started on IV Lasix daily and recommend close monitoring of electrolytes and kidney functions. 10/07/2021 Patient is seen in follow-up this morning continues to be monitored closely in the ICU with multiple medical consultations following. Patient is currently on mechanical vent with an FiO2 of 80% and PEEP is 16. General surgery also following for possible PEG and trach placement and will need to discuss with surgery about when this will occur. Patient remains on fluconazole. She also continues on vitamin and zinc supplements along with oral dexamethasone, clevidipine, Nimbex, IV Lasix, fentanyl and propofol and is off norepinephrine. Chest x-ray shows stable bilateral lung infiltrates. 10/08/2021 Patient is seen this morning continues to be on mechanical vent with an FiO2 of 85% and PEEP of 16. Patient continues with extensive subcutaneous emphysema and plans are for possible PEG and trach placement although on hold until possibly next week once more stable. Patient continues on Cleviprex along with fentanyl and propofol and is receiving IV Lasix daily. Patient also continues on lidocaine drip which is currently on hold and cardiology is following closely. Anticoagulant was resumed for now again until more stable to undergo PEG and trach placement. Chest x-ray today shows persistent bilateral multifocal and confluent increased opacification is with persistent overlying subcutaneous emphysema noted in pneumomediastinum is again redemonstrated. 10/09/2021 Patient evaluated today in ICU mechanical ventilation with FiO2 of 80%. Chest x-ray this morning shows similar multifocal airspace opacities and stable support lines and tubes. Similar subcutaneous emphysema scattered throughout the visualized thorax. PEG and trach plan for next week once more stable. Current meds include Cleviprex, Nimbex, fentanyl, propofol. She is receiving IV fluconazole, as well as IV Lasix. Levophed and Lidocaine gtt;s are on hold. Positive bowel sounds. Current vitals afebrile, heart rate 71, blood pressure 135/60 and oxygen saturation is 93%. Respirations 30. Labs today, white count 17, hemoglobin 11.6, sodium 139, potassium 3.8, BUN 34, creatinine 0.91, CO2 33, calcium 8.7, ALT 54, albumin 2.8 with blood sugars in the 100s. 10/10/2021 Patient evaluated today in the ICU on the mechanical VENT with fio2 of 100%. Positive bowel movement today, Stage 2 pressure ulcer on coccyx per RN, optifoam ordered. Per RN they were unable to patient as she was desaturating. They're unable to wean Fi02 currently as she does desaturate with any time of movement. She was lying more on her right side during evaluation and pulse ox was dropping into high 80s she was being repositioned by nurses. Plan is to PEG/TRACH patient tomorrow. Last family update was 4 days ago. We will call and discuss case today. Patient is afebrile, heart rate 84, respirations 30, blood pressure 141/55, 92% oxygen saturation on 100% Fi02, which was increased today up from 70 Fi02%. Labs today show WBC of 15.6, hgbl 10.7, sodium 138, potassium 3.9, chloride 100, CO2 37, glucose 117, calcium 8.2. Chest xray today shows pneumonia, ARDS. 10/11/2021 Patient is seen and evaluated in follow-up this morning continues to be closely monitored in the ICU and patient is continued on FiO2 of 90% and PEEP is 16 with multiple medical consultations following. Chest x-ray today shows new left- sided pneumothorax estimated 10-20% with overlying subcutaneous emphysema and pneumomediastinum redemonstrated with bilateral multifocal and confluent op acification's redemonstrated consistent with COVID-19 infection and/or arts and no significant change from one day previous. Patient is status post left chest tube insertion with pulmonary meteorology instructor. Cardiology following and patient is off lidocaine drip and maintaining sinus rhythm. Patient also continues on vitamin and zinc supplements along with oral dexamethasone and patient continues on IV Lasix 40 mg daily. Patient also continues off norepinephrine and is currently maintained on IV cefepime along with fluconazole. General surgery following as well and plan is for peg and trach placement in the am 10/12/2021 Patient is seen in the ICU this morning continues to be closely monitored by multiple medical consultations. Patient was scheduled for PEG and trach placement with general surgery Dr. Nelson today although canceled as patient became hypotensive requiring Levophed along with acute blood loss anemia and hemoglobin dropped to 6.5 this morning requiring 1 unit of PRBC. Patient continues with left chest tube with pneumothorax and chest x-ray today shows the jahaira is difficult to clearly identify on the present exam and the ET tube may be approximately 1 cm from the jahaira and there are bilateral chest tubes present with continued diffuse interstitial opacification is and more focal bibasilar opacification is with subcutaneous emphysema persists along the upper chest with slight improvement on the left. No appreciable pneumothorax noted. Patient having worsening right pleural effusion last night and received a right- sided chest tube with pulmonary meteorology instructor. FiO2 is 90% and PEEP of 16. Again overall prognosis remains extremely poor and guarded. 10/13/2021 Patient is seen in follow-up this morning in the ICU with multiple medical consultations following. Lengthy discussion was had with pulmonary meteorology instructor and family members and would like to continue with full CODE STATUS and plan is in place for PEG tube and tracheostomy placement tomorrow. Anticoagulant on hold and Dr. Nelson plans for surgery tomorrow. Patient continues on oral dexamethasone along with IV cefepime, vitamin and zinc supplements. Patient also continues on Cleviprex and Nimbex. Patient also continues on fentanyl and propofol and will continue. Chest x-ray today shows stable portable chest with bilateral chest tubes without sizable pneumothorax identified and continued subcutaneous air persists with persistent interstitial changes bilaterally with airspace disease in the bilateral lung bases that are unchanged. FiO2 is 60% and PEEP of 16. 10/14/2021 Patient is seen and evaluated in the ICU being closely monitored with multiple medical consultations following. at the bedside today and had detailed discussion with overall prognosis. Plan is to proceed with PEG tube and tracheostomy placement with surgery Dr. Nelson today and anticoagulant continues to be on hold for this procedure. Patient continues on mechanical ventilation with an FiO2 of 70% and PEEP of 16. Chest x-ray today shows improving infiltrate with bibasilar residual and bilateral chest tubes remain present with no pneumothorax evident on either side and again subcutaneous emphysema is noted. 10/15/2021 Patient is seen in the ICU being closely monitored. Patient is status post PEG and trach placement yesterday. Chest x-ray today shows bilateral patchy lung infiltrates greater at the right base with diffuse increased lung markings and bilateral chest tubes remain present and subcutaneous emphysema on the right is diminished. Patient continues with an FI02 of 60 and peep is 16. To resume tube feeds per surgery. Patient continues on norepinephrine and sedation. Patient is receiving IV lasix daily. 10/16/2021 Patient is currently in the MICU and remains on ventilator. Status post tracheostomy and PEG tube placement on 10/14/2021. Patient is sedated and paralyzed. Also on Cleviprex. Chest x-ray showed no acute cardiopulmonary disease with no interval changes. Laboratory data showed WBC 16.9 hemoglobin 8.9 and platelets 278 BUN 19 and creatinine 0.5 and calcium 8.1 patient is being continued on dexamethasone 6 mg daily, Lasix 40 mg IV daily and multivitamins and anticoagulation with Eliquis. Pulmonary and general surgery is on board. 10/17/2021 Patient is in the MICU. Remains on the current ventilator via tracheostomy. Status post tracheostomy and PEG tube placement on 10/14/2021. Sedated and paralyzed and also on fentanyl drip. Currently on assist control with tidal volume of 420, FiO2 80% and PEEP of 16. Respiratory of 30. Chest x-ray showed no interval change in acute cardiopulmonary disease Laboratory data showed WBC 15.8 hemoglobin 8.2 and platelets 271 Sodium 136 potassium 3.1 chloride 100 bicarb is 32 BUN 21 creatinine 0.48 and albumin 2.3 Patient is being continued on Lasix IV, dexamethasone and anticoagulation with Eliquis. 10/18/2021 Patient is seen in follow-up and continues in the ICU with multiple medical consultations following. Patient continues on mechanical vent with an FI02 of 70% and peep is 16. Chest xray shows overall stable exam with interstitial changes and bilateral patchy infiltrates with right greater than left and greater at the bases with bilateral chest tubes noted. no appreciable pneumothorax. Patient continues on propofol and fentanyl along with cleviprex and rocuronium. Eliquis has been resumed. Potassium is 3.3 and will be replaced per protocol. Patient also continues to receive IV lasix daily. 10/19/2021 Patient is seen this morning and continues to be in the ICU with multiple medical consultations following. Patient continues with bilateral chest tubes and remains on mechanical ventilation with an FiO2 of 65% and PEEP is 16. Chest x-ray today shows Bilateral multifocal and confluent opacification greatest in the lower lungs consistent with COVID-19 infection and/or ARDS all redemon strated with no significant change from one day earlier and continued bilateral chest tubes without pneumothorax redemonstrated. 10/20/2021 Patient continues to be in the ICU under close critical monitoring with multiple medical consultations following. Patient continues with bilateral chest tubes although per nursing staff may possibly discontinued today. Chest x-ray today shows stable portable chest with no change in scattered mixed interstitial and alveolar infiltrates. Patient remains on mechanical ventilation via tracheostomy with an FiO2 of 55% and PEEP is 15. Patient continues on Cleviprex along with rocuronium and sedation. 10/21/2021 Patient continues in the MICU being closely monitored. Chest tubes were removed today and chest xray stable with interstitial changes and basilar ground glass, that is similar to previous with slight improvement. Patient continues on mechanical vent with an FI02 of 70% and peep is 14. Patient remains sedated and per nursing staff working on weaning paralytics. Patient continued on rocuronium. Patient is tolerating tube feeds and also continues on IV lasix daily with generalized edema noted throughout. 10/22/2021 Patient is currently MICU. Patient was taken off paralytic and chest tubes yesterday. Continued on pressure support with PEEP of 13. 88 this morning patient again desaturated. Patient became hypotensive and patient was started on norepinephrine. Chest x-ray showed large pneumothorax on the right. Right chest tube was reinserted. Patient is on pressure control. Remains sedated and mechanically ventilated. Laboratory data showed WBC 13.7 hemoglobin 7.7 and platelets 314 Sodium 140 potassium 3.0 chloride 102 bicarb is 37 BUN 19 and creatinine 0.44 and calcium 8.1 Patient is being continued dexamethasone multivitamins and anticoagulation with Eliquis. Patient is also on IV Lasix. Potassium will be replaced. 10/23/2021 Patient is currently MICU. Patient is on mechanical ventilator via trach tube. Patient developed right-sided tension pneumothorax. Again patient had issues with pneumothorax around 10 PM yesterday. Chest tube has to be replaced. Patient is also requiring pressor support. Off pressors this morning. On pressure support. PEEP of 13 and FiO2 100%. Laboratory data showed WBC 13.7 hemoglobin 7.7 and platelets 314 Sodium 140 potassium 3.0 chloride 102 bicarb is 37 BUN 19 and creatinine 0.44 and calcium 8.1 cultures have been negative. Patient is being current on dexamethasone, Eliquis and also IV Lasix 40 mg daily. 10/24/2021 Patient is currently in the MICU. Currently on mechanical ventilator via tracheal tube. Continue propofol and fentanyl. Remains pressure support with PEEP of 13 FiO2 reduced to 70%. Chest x-ray showed bilateral multifocal and confluent opacities consistent with COVID-19 infection and ARDS are redemonstrated and stable. Right-sided chest tube with small apical pneumothorax estimated 10 to 15% improved from 1 day earlier. Pneumo mediastinum noted. Laboratory data showed WBC 14.2 hemoglobin 7.1 and platelets 317 Sodium 140 potassium 3.2 chloride 104 bicarb is 38 BUN 20 and creatinine 0.46 and calcium 7.8. Patient is being continued on dexamethasone, Eliquis and also on IV Lasix. Currently on multivitamins. 10/25/2021 Patient is seen this morning continues to be in the ICU with close monitoring. Patient continues on mechanical vent via tracheostomy and FiO2 of 65% with a PEEP of 13. Chest x-ray this morning shows right-sided chest tube in place with continued small to moderate right sided pneumothorax slightly smaller in the interval, apical component measuring 2.3 cm versus 2.8 cm previously along with interstitial opacities persist in pneumonitis versus mild pulmonary edema, status post right side thoravent place this morning with pulmonary meteorology instructor showing resolution of the apical and lateral components of the pneumothorax and 5 mm basilar components remain. Patient requiring more oxygen supplementation and FiO2 being increased to 75%. Hemoglobin found to be 6.3 and awaiting to receive a unit of PRBC. Patient also continues on Nimbex along with Cleviprex, oral dexamethasone, vitamin and zinc supplements along with oral eliquis, along with fentanyl and propofol for sedation. 10/26/2021 Patient is seen in follow-up today continues on mechanical ventilation with an FiO2 of 75% which is currently titrating down to 65% per nursing staff with an FiO2 of 13. Patient continues on Cleviprex and Nimbex and attempts at weaning although not tolerating well. Patient also continues on fentanyl and propofol for sedation. Chest x-ray today shows a right-sided thoracic vent and chest to both present and overlying appropriate positions with minimal right-sided apical pneumothorax present and persistent bilateral interstitial groundglass opacities noted with no evident pleural effusion to correlate for pneumonia. Hemoglobin improved to 8.7 today after 1 unit of PRBC. Will continue to monitor closely. 10/27/2021 Patient is seen today continues to be closely monitored in the ICU on mechanical vent via tracheostomy with an FiO2 of 70% and PEEP is 13. Patient continues on IV Lasix daily along with propofol and fentanyl for sedation. Patient also continues to be on Cleviprex as blood pressure is elevated. Per nursing staff attempts at weaning some sedation although patient not tolerating well. Patient continues with chest tubes on the right and there is an air leak noted and also continues with thoravent on the right. Chest x-ray today shows enlarging right- sided pneumothorax estimated at 15% with no significant change in interstitial infiltrate seen bilaterally. 10/28/2021 Patient is seen in the ICU this morning continues on mechanical ventilation with a FI02 of 85% and peep is 13. Patient continues on propofol for sedation along with Nimbex and also patient is on norepinephrine with hypotension at times. Chest xray today shows continued diffuse interstitial infiltrates with continued right side pneumothorax slightly larger in the interval, apical component measu ring 1.9cm versus 1.5. Potassium was found to be 3.0 and being replaced. 10/29/2021 Patient is seen and evaluated today and continues to be closely monitored in the ICU. Multiple medical consultations following. Patient continues on mechanical ventilation via tracheostomy and also PEG tube with tube feedings and tolerating. FiO2 is currently 60% with a PEEP of 14. Cleviprex is currently off and patient continues on decreased doses of sedation. Patient also continues on IV Levaquin and will continue. Patient is currently off of Levophed and Nimbex. Patient was continued on 40 mg of Lasix daily which is currently being increased to twice daily and will continue to monitor closely. Patient's potassium was found to be 2.8 today and being replaced per protocol. Chest x-ray this morning showed a continued right-sided pneumothorax increasing in size currently estimated at 40% and emergent chest tube placement on the right was performed by pulmonary meteorology instructor and subsequent removal of right side thoravent. Repeat chest x-ray showed a diminished right sided pneumothorax on the right and increasing diffuse infiltrates greater on the right. 10/30/21 This patient is still on the vent. Vent settings are noted. The patient continues to be unresponsive. Blood pressure is fluctuating. Dr. Alejandro is following the patient closely. Family updated. Prognosis guarded. Brad morrison. See orders for further details. 10/31/2021 This patient remains to be on the vent. The patient has significant difficulties in weaning off from the vent. The pneumothorax on the right seemed to be little improving. Patient has chest tubes in situ. Patient also developed atrial fibrillation faster [place]. The patient is mechanically intubated. Cardizem initiated. Cardiology is consulted. Dr. Alejandro is following the patient closely. The family at the bedside updated about the prognosis. Review of systems: Unable to obtain as patient is mechanically intubated and sedated 11/01/2021 She continues in the ICU on mechanical vent via tracheostomy and FiO2 is currently 70% with a PEEP of 14. Currently working on transitioning to metoprolol multiple medical consultations following. Patient continues with right-sided chest tubes and cardiology also following and patient is t ransitioned to oral Cardizem along with metoprolol. 2-D echo shows mild concentric left ventricular hypertrophy with overall LV systolic function normal with an EF of 55-60% and also noted to have some free space that may represent effusion or a pericardial fat pad. Chest x-ray today shows interval increase in size of small right-sided pneumothorax apical component 2.3 cm versus 1.8 cm previously and a lateral basilar component is now seen measuring 5 mm with 2 chest tubes continuing and also similar diffuse patchy interstitial opacification persist. Review of systems: Unable to obtain as patient is mechanically intubated and sedated Active Medications Apixaban (Apixaban 5 Mg Tab) 5 mg PO BID [facility]; Protocol Last Admin: 11/01/21 10:02 Dose: 5 mg Documented by: Artificial Tears (Artificial Tears-Hypromellose Drops 15 Ml Btl) 2 drops BOTH EYES QID [facility] Last Admin: 11/01/21 13:52 Dose: 2 drops Documented by: Ascorbic Acid (Ascorbic Acid 500 Mg Tab) 500 mg PO BID [facility] Last Admin: 11/01/21 10:02 Dose: 500 mg Documented by: Diltiazem HCl (Diltiazem Oral 30 Mg Tab) 30 mg PO QID [facility] Last Admin: 11/01/21 13:52 Dose: 30 mg Documented by: Docusate Sodium (Docusate Oral Soln 100 Mg/10 Ml Cup) 100 mg PO DAILY PRN PRN Reason: Constipation Last Admin: 10/18/21 15:53 Dose: 100 mg Documented by: Ergocalciferol (Ergocalciferol 1,250 Mcg (50,000 Iu) Capsule) 1,250 mcg PO MORRIS [facility] Last Admin: 10/31/21 08:21 Dose: 1,250 mcg Documented by: Sodium Chloride (Saline 0.9%) 1,000 mls @ 20 mls/hr IV .Q24H [facility] Last Admin: 11/01/21 00:34 Dose: 20 mls/hr Documented by: Fentanyl Citrate 2,500 mcg/ (Sodium Chloride) 250 mls @ 4.6 mls/hr IV .Q24H [facility]; Protocol Last Admin: 11/01/21 09:30 Dose: 2.5 mcg/kg/hr, 23 mls/hr Documented by: Clevidipine 25 mg/ IV Solution 50 mls @ 2 mls/hr IV .Q24H [facility]; Protocol Last Titration: 11/01/21 10:45 Dose: 0 mg/hr, 0 mls/hr Documented by: Propofol 1,000 mg/ IV Solution 100 mls @ 0 mls/hr IV .Q0M [facility]; Protocol Last Admin: 11/01/21 14:55 Dose: 75 mcg/kg/min, 41.85 mls/hr Documented by: Levofloxacin 500 mg/ IV (Solution) 100 mls @ 100 mls/hr IVPB Q24H [facility] Last Admin: 11/01/21 10:45 Dose: 100 mls/hr Documented by: Insulin Aspart (Insulin Aspart (Novolog) 100 Unit/Ml Vial) 0 unit SQ Q6HR [facility]; Protocol Last Admin: 11/01/21 11:31 Dose: 1 unit Documented by: Metoprolol Tartrate (Metoprolol Tartrate 50 Mg Tab) 50 mg PO BID [facility] Last Admin: 11/01/21 10:01 Dose: 50 mg Documented by: Miscellaneous Information (Pneumonia Protocol Utilized 1 Each Misc) 1 each PO ONCE PRN PRN Reason: Per Protocol Miscellaneous Information (Potassium Replacement Protocol 1 Each Misc) 1 each MISCELLANE DAILY PRN; Protocol PRN Reason: Per Protocol Naloxone HCl (Naloxone 0.4 Mg/Ml 1 Ml Vial) 0.2 mg IV Q2M PRN PRN Reason: Opioid Reversal Pantoprazole Sodium (Pantoprazole 40 Mg/10 Ml Vial) 40 mg IV DAILY [facility] Last Admin: 11/01/21 10:01 Dose: 40 mg Documented by: Potassium Bicarbonate (Potassium Bicarbonate/Cit Ac 20 Meq Tablet.Eff) 20 meq PO TID [facility] Last Admin: 11/01/21 10:01 Dose: 20 meq Documented by: Prednisone (Prednisone 20 Mg Tab) 60 mg PO DAILY [facility] Last Admin: 11/01/21 10:02 Dose: 60 mg Documented by: Quetiapine Fumarate (Quetiapine 50 Mg Tab) 50 mg PO BID [facility] Last Admin: 11/01/21 10:20 Dose: 50 mg Documented by: Zinc Sulfate (Zinc Sulfate 220 Mg Cap) 220 mg PO DAILY [facility] Last Admin: 11/01/21 10:02 Dose: 220 mg Documented by: Physical Exam: Gen: This is a 61-year-old female currently sedated and intubated. mechanical ventilation Fio2 670% with a PEEP of 14. HEENT: Head is atraumatic, normocephalic. Pupils equal, round. Sclerae is anicteric. tracheostomy noted NECK: Supple. No JVD. No lymphadenopathy. No thyromegaly. tracheostomy noted LUNGS: Diminished breath sounds bilaterally with coarse rhonchi and crackles noted. No intercostal retractions. Right side chest tubes noted HEART: S1, S2 are muffled ABDOMEN: Soft. Obese. Bowel sounds are present. No masses. No tenderness. peg tube noted. EXTREMITIES: No pedal edema. No calf tenderness. generalized edema noted NEUROLOGICAL: Patient is currently intubated and sedated Assessment: Acute COVID-19 infection with acute COVID-19 bilateral interstitial pneumonia with hypoxic hypercarbic respiratory failure on mechanical vent status post trach and peg tube placement on 10/14/2021 Worsening right side pneumothorax status post chest tube placement and thoravent removal on 10/29/2021 bilateral pneumothoraces with chest tube placement and status post removal of chest tubes 2.3.2021 Status post reinsertion of chest tubes on 10/22/2021 due to a tension pneumothorax on the right, status post thoraVent placement as well on the right on 10/25/2021, worsening pneumothorax on the right with continued air leak of the chest tube Acute blood loss anemia secondary to bilateral chest tube placements, possible hypovolemic shock requiring pressor support, currently hypertensive and off pressors, currently improved Non-sustained ventricular tachycardia, currently sinus Acute left leg deep vein thrombosis Primary hypercoagulable state and factor V deficiency Obesity with a body mass index of 38.1 Full code Plan: Recommend to continue with current medications and follow along closely with multiple medical consultations. Prognosis remains extremely poor and guarded with multiple complex medical issues noted. Patient continues on mechanical ventilation via tracheostomy and FiO2 70% with PEEP of 14. Recommend to continue with current medications. Currently cardiology following closely and making medication adjustments patient is off IV Cardizem and on oral Cardizem with titration of metoprolol. Chest x-ray as mentioned previously and continued with right-sided chest tubes. Recommend repeat labs and chest x-ray in a.m. and continued close monitoring. Again due to multiple complex medical issues overall prognosis is extremely poor and quite guarded. Objective - Vital Signs Vital signs: Vital Signs Temp 99.5 F 11/01/21 08:00 Pulse 124 H 11/01/21 08:00 Resp 21 11/01/21 08:00 BP 109/68 11/01/21 08:00 Pulse Ox 91 L 02/14/22 08:00 Intake & Output 10/31/21 11/01/21 11/01/21 18:59 06:59 18:59 Intake Total 8971.072 1714.433 112.57 Output Total 1670 880 80 Balance -458.759 173.433 32.57 Intake: IV 253 276 46 0.9 Normal Saline @ 20mL/ 220 240 40 hr pressure bag 33 36 6 Intake, IV Titration 648.241 567.433 56.57 Amount Clevidipine Butyrate 25 0 mg In Empty Bag 1 bag @ 1 MG/HR 2 mls/hr IV .Q24H [facility] Rx#:[id number] Diltiazem 125 mg In 8.5 Sodium Chloride 0.9% 100 ml @ 5 MG/HR 5 mls/hr IV .Q24H [facility] Rx#:[id number] fentaNYL (PF) 2,500 mcg 250.000 193.43 56.57 In Sodium Chloride 0.9% 200 ml @ 0.5 MCG/KG/HR 4. 6 mls/hr IV .Q24H [facility] Rx# :[id number] propofoL 1,000 mg In 389.741 374.003 Empty Bag 1 bag @ Titrate IV .Q0M [facility] Rx#: [id number] Tube Feeding 120 120 10 Other 190 90 Output: Chest Tube Drainage 10 10 10 Chest Tube Right 0 Chest Tube Right Pleural 10 10 10 Urine 1660 870 70 Other: Voiding Method Indwelling Catheter Indwelling Catheter ABP, PAP, CO, CI - Last Documented Arterial Blood Pressure 115/57 - Labs CBC & Chem 7: 11/01/21 04:05 11/01/21 11:30 Labs: Abnormal Lab Results - Last 24 Hours (Table) 10/31/21 10/31/21 11/01/21 Range/Units 12:27 18:57 04:05 RBC 3.44 L (3.80-5.40) m/uL Hgb 9.3 L (11.4-16.0) gm/dL Hct 31.5 L (34.0-46.0) % MCHC 29.6 L (31.0-37.0) g/dL RDW 15.8 H (11.5-15.5) % ABG pCO2 (35-45) mmHg ABG pO2 (83-108) mmHg ABG HCO3 (21-25) mmol/L ABG Total CO2 (19-24) mmol/L Carbon Dioxide (22-30) mmol/L Creatinine (0.52-1.04) mg/dL POC Glucose (mg/dL) 152 H 115 H (75-99) mg/dL 11/01/21 11/01/21 Range/Units 04:05 05:50 RBC (3.80-5.40) m/uL Hgb (11.4-16.0) gm/dL Hct (34.0-46.0) % MCHC (31.0-37.0) g/dL RDW (11.5-15.5) % ABG pCO2 63 H (35-45) mmHg ABG pO2 72 L (83-108) mmHg ABG HCO3 40 H* (21-25) mmol/L ABG Total CO2 42 H (19-24) mmol/L Carbon Dioxide 39 H (22-30) mmol/L Creatinine 0.39 L (0.52-1.04) mg/dL POC Glucose (mg/dL) (75-99) mg/dL Microbiology - Last 24 Hours (Table) 10/30/21 03:30 Gram Stain - Preliminary Sputum Sputum Culture - Preliminary
[2021-11-01 17:59] LABS: Glucose,Whole Blood 148 mg/dL (75-99)
[2021-11-02 01:01] LABS: Glucose,Whole Blood 130 mg/dL (75-99)
[2021-11-02] MEDS: INSULIN ASPART (NovoLOG) 100 UNIT/ML VIAL SQ SCH ×4 (01:21→18:28)
[2021-11-02] MEDS: SODIUM CHLORIDE 0.9% 1,000 ML IV SCH (02:00)
[2021-11-02 03:47] LABS: Basophils % (A) 0 %; Eosinophils # (A) 0.1 k/uL (0-0.7); Eosinophils % (A) 1 %; HCT 29.3 % (34.0-46.0); HGB 8.9 gm/dL (11.4-16.0); Hypochromasia Marked; Lymphocytes # (A) 1.1 k/uL (1.0-4.8); Lymphocytes % (A) 16 %; MCH 27.7 pg (25.0-35.0); MCHC 30.3 g/dL (31.0-37.0); MCV 91.6 fL (80.0-100.0); Mean Platelet Volume 8.1; Monocytes # (A) 0.3 k/uL (0-1.0); Monocytes % (A) 5 %; Neutrophils # (A) 5.5 k/uL (1.3-7.7); Neutrophils % (A) 77 %; Platelet Count 304 k/uL (150-450); Poikilocytosis Slight; RBC 3.19 m/uL (3.80-5.40); RDW 15.9 % (11.5-15.5); WBC 7.2 k/uL (3.8-10.6)
[2021-11-02 04:03] LABS: African American GFR (CKD) >90 (>60 ml/min/1.73 sqM); Anion Gap 2 mmol/L; Blood Urea Nitrogen 20 mg/dL (7-17); Calcium 8.4 mg/dL (8.4-10.2); Carbon Dioxide 37 mmol/L (22-30); Chloride 97 mmol/L (98-107); Glucose 110 mg/dL (74-99); Non-African American GFR(CKD) >90 (>60 ml/min/1.73 sqM); Sodium 136 mmol/L (137-145)
[2021-11-02 05:42] LABS: ABG Base Excess 13.7 mmol/L; ABG HCO3 39 mmol/L (21-25); ABG Oxygen Saturation 99.3 % (94-97); ABG PCO2 67 mmHg (35-45); ABG PH 7.37 (7.35-7.45); ABG PO2 150 mmHg (83-108); ABG TCO2 41 mmol/L (19-24); Allen Test Performed? Yes
[2021-11-02 06:19] LABS: Glucose,Whole Blood 104 mg/dL (75-99)
--- NOTE | 2021-11-02 06:35 | XR ---
EXAMINATION TYPE: XR chest 1V portable DATE OF EXAM: 11/02/2021 CLINICAL HISTORY: Difficulty breathing and pneumothorax progress study. TECHNIQUE: Single AP portable semiupright view of the chest is obtained. COMPARISON: Chest x-ray from one day earlier and older studies. FINDINGS: Redemonstration of tracheostomy tube and 2 right-sided chest tubes along with right-sided PICC line. Anterior fusion plate in the lower cervical spine redemonstrated. Fairly stable small right upper lung pneumothorax with lateral extension. Bilateral multifocal and co nfluent increased opacity is redemonstrated. Cardiac silhouette size stable and within normal limits. No mediastinal shift. Osseous structures are intact. IMPRESSION: Stable right upper lung pneumothorax despite [address]. Persistent multifoca l and confluent increased opacity consistent with covid-19 infection and/or ARDS. No significant brunson ge from one day earlier.
[2021-11-02] MEDS: fentaNYL (PF) 2,500 MCG in SODIUM CHLORIDE 0.9% 200 ML IV SCH (06:53)
[2021-11-02] MEDS ORDERED: FUROSEMIDE 10 MG/ML 4 ML VIAL IV STA (08:25)
[2021-11-02] MEDS: predniSONE 20 MG TAB PO SCH (08:30)
[2021-11-02] MEDS: POTASSIUM BICARBONATE/CIT AC 20 MEQ TABLET.EFF PO SCH ×3 (08:31→21:19)
[2021-11-02] MEDS: METOPROLOL TARTRATE 50 MG TAB PO SCH ×2 (08:31→20:27)
[2021-11-02] MEDS: ZINC SULFATE 220 MG CAP PO SCH (08:31)
[2021-11-02] MEDS: QUEtiapine 50 MG TAB PO SCH ×2 (08:31→20:27)
[2021-11-02] MEDS: ASCORBIC ACID 500 MG TAB PO SCH ×2 (08:31→20:27)
[2021-11-02] MEDS: DILTIAZEM ORAL 30 MG TAB PO SCH ×4 (08:31→21:20)
[2021-11-02] MEDS: ARTIFICIAL TEARS-HYPROMELLOSE DROPS 15 ML BTL BOTH EYES SCH ×4 (08:32→21:20)
[2021-11-02] MEDS: PANTOPRAZOLE 40 MG/10 ML VIAL IV SCH (08:32)
[2021-11-02] MEDS: APIXABAN 5 MG TAB PO SCH ×2 (08:54→20:27)
--- NOTE | 2021-11-02 10:38 | P.PN ---
Subjective Progress Note Date: 11/02/21 Principal diagnosis: Acute hypoxic respiratory failure secondary to COVID-19 pneumonia On 11/01/2021 patient seen in follow-up in the intensive care unit, she remains trached to the ventilator, and sedated, she is currently on assist control with a rate of 26, tidal arm is 350, FiO2 of 70% and PEEP of 14, this morning's blood gas shows pO2 of 72, pCO2 of 63 and pH of 7.41. Today's chest x-ray showing interval increase in the size of small right-sided pneumothorax with apical component of 2.3 cm versus 1.8 cm previously. Bilateral basilar component is now seen measuring 5 mm, there are [address] chest [address] in place. In and there is similar diffuse patchy interstitial opacities. 2 right-sided chest tubes are to wall suction, with no evidence of leak. Patient is sedated with Diprivan and at 75 mics per kilo per minute, fat no added 2.5 mics per kilo per minute, 0.9 normal saline at 10, Cleviprex is up 4 mg per hour. She is on the tube feedings with vital HP at 10 with a goal of 10, is standard water flushes with 30 mL of water every 4 hours. Patient has not been tolerating sedation holidays very well for the past several days and become quite agitated h ypertensive, and starts having unstable vital signs. The patient has not had any weaning trials thus far. Today's labs have been reviewed, white blood cell, 7.8, hemoglobin is 9.3, platelet count is 338, sodium is 139, potassium 3.6, chloride is 99, CO2 is 39, BUN is 15, creatinine 0.39. Patient remains on Levaquin, she has had blood and sputum cultures that have shown no growth thus far, sputum Gram stain from 10/30/2021 showed many PMNs, rare epithelial cells, many gram-positive bacilli and few gram-negative bacilli and few gram-positive cocci. She had some low-grade fevers overnight. Patient has been tachycardic in the sinus mechanism with a rate of 125 BPM. She is on oral Cardizem at 30 mg 4 times a day for recent history of runs of A. fib with RVR. She is on Eliquis for anticoagulation. As far as COVID-19 treatment she is on Decadron 4 mg daily she is on multivitamins. Her last set of inflammatory markers back on 10/01/2021 showed LDH within normal limits at 531, and CRP of 2.1. Most recent pro- calcitonin from 10/29/2021 was 0.23. Patient has not required any vasopressor support, she is actually been hypertensive and for that reason we will add metoprolol 50 mg twice daily for improved blood pressure control. On 11/02/2021 patient seen in follow-up in the intensive care unit, she remains trached to the ventilator, sedated, currently on assist-control with a rate of 26, tidal M3 50, FiO2 of 55% and PEEP of 14. This morning's blood gas shows pO2 of 150, pCO2 of 67, and pH of 7.37, this was done on FiO2 of 70%, and FiO2 has been decreased down to 55%. Today's chest x-ray shows stable right upper lobe pneumothorax despite [address], persistent multifocal confluent increased opacity consistent with COVID-19 infection, no significant change from one day earlier. Patient is currently sedated with Diprivan at 65 mics per kilo per minute, fentanyl infusion at 2.5 mics per kilo per minute, 0.9 normal saline at a rate of 20 ML per hour, patient is on tube feedings at 10 mL per hour, with a goal of 10. Patient has [address], the medial chest tube has no air leak, remains to wall suction, and more lateral right-sided chest tube has intermittent air leak and remains to wall suction. Patient has been off the Cleviprex since yesterday morning at 10:45 in the morning, patient was placed on metoprolol 50 mg twice daily, and she remains on oral Cardizem 30 mg 4 times daily and Eliquis for new onset atrial fibrillation . Yesterday we had dexamethasone DC'd and place the patient on prednisone 60 mg daily. In addition patient is an +1.3 L net fluid balance over the last 24 hours, and patient will be given a dose of Lasix. Her oxygenation seems to have improved on today's blood gas, and we were able to contact the FiO2 down to 55%. She's had no acute events overnight. The rest of her blood work has been reviewed her white blood cell count is 7.2, hemoglobin is 8.9, platelet count is 304, sodium is 136, potassium is 4.0, chloride is 97, CO2 is 37, B1 is 20 creatinine 0.37. Her sputum culture showed Corynebacterium species, and blood cultures have been negative. Patient has received 5 day course of Levaquin which can be discontinued at this time, her progress on level was negative at 0.23. Objective - Vital Signs Vital signs: Vital Signs Temp 97.7 F 11/02/21 08:00 Pulse 93 11/02/21 09:00 Resp 23 11/02/21 09:00 BP 109/68 11/02/21 09:00 Pulse Ox 96 11/02/21 09:00 Intake & Output 11/01/21 11/02/21 11/02/21 18:59 06:59 18:59 Intake Total 098.480 2647.237 99 Output Total 400 305 85 Balance 222.153 2125.237 14 Weight 86 kg 88.4 kg Intake: IV 276 299 69 0.9 Normal Saline @ 20mL/ 240 260 60 hr pressure bag 36 39 9 Intake, IV Titration 253.978 963.237 Amount Clevidipine Butyrate 25 19.8 mg In Empty Bag 1 bag @ 1 MG/HR 2 mls/hr IV .Q24H [facility] Rx#:[id number] fentaNYL (PF) 2,500 mcg 56.57 491.817 In Sodium Chloride 0.9% 200 ml @ 0.5 MCG/KG/HR 4. 6 mls/hr IV .Q24H [facility] Rx# :[id number] propofoL 1,000 mg In 177.608 471.420 Empty Bag 1 bag @ Titrate IV .Q0M [facility] Rx#: [id number] Tube Feeding 120 110 30 Other 60 Output: Chest Tube Drainage 10 Chest Tube Right 0 Chest Tube Right Pleural 10 Urine 390 305 85 Other: Voiding Method Indwelling Catheter Indwelling Catheter Indwelling Catheter ABP, PAP, CO, CI - Last Documented Arterial Blood Pressure 132/46 - Exam GENERAL EXAM: Sedated, trached to the ventilator, on assist control mode of ventilation with a rate of 26, tidal 350, FiO2 of 55% and PEEP of 14, 61-year-old white female, comfortable in no apparent distress. HEAD: Normocephalic/atraumatic. EYES: Normal reaction of pupils, equal size. Conjunctiva pink, sclera white. NOSE: Clear with pink turbinates. THROAT: No erythema or exudates. NECK: No masses, no JVD, no thyroid enlargement, no adenopathy. CHEST: No chest wall deformity. Symmetrical expansion. 2 right-sided chest tubes in place, no evidence of air leak, to wall suction LUNGS: Equal air entry with no crackles, wheeze, rhonchi or dullness. CVS: Regular rate and rhythm, normal S1 and S2, no gallops, no murmurs, no rubs ABDOMEN: Soft, nontender. No hepatosplenomegaly, normal bowel sounds, no guarding or rigidity. PEG tube in place with tube feedings infusing with vital HP at a rate of 10 with a goal of 10 EXTREMITIES: No clubbing, mild generalized edema, no cyanosis, 2+ pulses and upper and lower extremities. MUSCULOSKELETAL: Muscle strength and tone normal. SPINE: No scoliosis or deformity SKIN: No rashes CENTRAL NERVOUS SYSTEM: Sedated, trached to the ventilator, does not follow commands. No focal deficits, tone is normal in all 4 extremities. - Labs CBC & Chem 7: 11/02/21 03:29 11/02/21 03:29 Labs: Abnormal Lab Results - Last 24 Hours (Table) 11/01/21 11/01/21 11/02/21 Range/Units 11:20 17:58 01:00 RBC (3.80-5.40) m/uL Hgb (11.4-16.0) gm/dL Hct (34.0-46.0) % MCHC (31.0-37.0) g/dL RDW (11.5-15.5) % ABG pCO2 (35-45) mmHg ABG pO2 (83-108) mmHg ABG HCO3 (21-25) mmol/L ABG Total CO2 (19-24) mmol/L ABG O2 Saturation (94-97) % Sodium (137-145) mmol/L Chloride (98-107) mmol/L Carbon Dioxide (22-30) mmol/L BUN (7-17) mg/dL Creatinine (0.52-1.04) mg/dL Glucose (74-99) mg/dL POC Glucose (mg/dL) 149 H 148 H 130 H (75-99) mg/dL 02/15/22 02/15/22 02/15/22 Range/Units 03:29 03:29 05:38 RBC 3.19 L (3.80-5.40) m/uL Hgb 8.9 L (11.4-16.0) gm/dL Hct 29.3 L (34.0-46.0) % MCHC 30.3 L (31.0-37.0) g/dL RDW 15.9 H (11.5-15.5) % ABG pCO2 67 H (35-45) mmHg ABG pO2 150 H (83-108) mmHg ABG HCO3 39 H (21-25) mmol/L ABG Total CO2 41 H (19-24) mmol/L ABG O2 Saturation 99.3 H (94-97) % Sodium 136 L (137-145) mmol/L Chloride 97 L (98-107) mmol/L Carbon Dioxide 37 H (22-30) mmol/L BUN 20 H (7-17) mg/dL Creatinine 0.37 L (0.52-1.04) mg/dL Glucose 110 H (74-99) mg/dL POC Glucose (mg/dL) (75-99) mg/dL 11/02/21 Range/Units 06:17 RBC (3.80-5.40) m/uL Hgb (11.4-16.0) gm/dL Hct (34.0-46.0) % MCHC (31.0-37.0) g/dL RDW (11.5-15.5) % ABG pCO2 (35-45) mmHg ABG pO2 (83-108) mmHg ABG HCO3 (21-25) mmol/L ABG Total CO2 (19-24) mmol/L ABG O2 Saturation (94-97) % Sodium (137-145) mmol/L Chloride (98-107) mmol/L Carbon Dioxide (22-30) mmol/L BUN (7-17) mg/dL Creatinine (0.52-1.04) mg/dL Glucose (74-99) mg/dL POC Glucose (mg/dL) 104 H (75-99) mg/dL Microbiology - Last 24 Hours (Table) 10/30/21 03:30 Gram Stain - Final Sputum Sputum Culture - Final Corynebacterium species Assessment and Plan Plan: Assessment: #1. Acute hypoxic respiratory failure related to COVID-19 pneumonia complicated with ARDS. Patient was intubated and on 09/25/2021, status post tracheostomy and PEG tube placement on 10/14/2021. On 11/01/2021 patient remains sedated, and trach to the ventilator on assist control mode of ventilation with a rate of 26, TV was 350, FiO2 of 70%, and PEEP of 14. She has had ongoing difficulty with sedation holidays, and has remained persistently hypoxic. Today on 11/02/2021 patient blood gas shows improvement in oxygenation, FiO2 is currently down to 55% and PEEP of 14. We'll attempt a sedation holiday, and if tolerates it possible spontaneous breathing trials. #2. Bilateral pneumothoraces requiring bilateral chest tube placements, with subsequent removal and recurrence of right-sided pneumothorax, requiring placement of another chest tube on the right, and subsequent fluoroscopy vent placement on 10/25/2021, and subsequent removal of the Serevent on 10/29/2021 and placement of another right-sided chest tube on 10/29/2021. Today on 11/01/2021 patient has slightly increased right apical and lateral pneumothorax, please refer to the chest x-ray report, apical pneumothorax measuring 2.3 cm and lateral pneumothorax on the right at 5 mm #3. Acute deep vein thrombosis on Eliquis #4. New-onset A. fib on 10/31/2021, currently in sinus, patient was on Cardizem drip, now on oral Cardizem, remains on Eliquis #5. Subcutaneous emphysema resolved #6. Prior history of DVT #7. Possible superinfection with bacterial pneumonia, currently on Levaquin, so far culture data is negative, awaiting final report on the sputum culture from 10/29/2021 #8. Mildly elevated liver enzymes secondary to COVID-19 #9. Nonsustained ventricular tachycardia resolved #10. History of fibromyalgia #11. Suspect underlying delirium, patient has not been tolerating sedation holidays, patient has been started on Seroquel 50 mg twice a day Plan: Today's chest x-ray, blood gases and labs reviewed Continue with current ventilator settings, FiO2 is currently down to 55%, continue weaning to keep O2 sat at or above 90% We'll discontinue fentanyl infusion, use a combination of topotecan and Dilaudid PRN to achieve a target level of sedation Continue attempting to wean FiO2 to keep O2 sats at 90% or above Sputum culture showed Corynebacterium, patient has completed 5 day course of Levaquin Continue prednisone 60 mg daily, we will give the patient 1 time dose of Lasix Blood pressure is better controlled, Clevidipine drip has been weaned off, Chest tubes will remain in place Follow-up chest x-ray tomorrow We'll attempt sedation holiday today, assess mental status, if tolerates it we'll obtain a set weaning parameters We'll continue with nutritional support Overall prognosis is guarded Continue post monitoring in intensive care unit Follow-up labs, blood gases and chest x-ray in the morning I performed a history & physical examination of the patient and discussed their management with my nurse practitioner, Ashley Granado. I reviewed the nurse practitioner's note and agree with the documented findings and plan of care. Lung sounds are positive for dim breath sounds throughout the lung patterson. The findings and the impression was discussed with the patient. I attest to the documentation by the nurse practitioner. Time with Patient: Greater than 30
[2021-11-02 11:24] LABS: Glucose,Whole Blood 146 mg/dL (75-99)
[2021-11-02] MEDS: HYDROmorphone 1 MG/ML 1 ML SYRINGE IVP PRN ×2 (12:47→17:03)
--- NOTE | 2021-11-02 17:07 | P.PN ---
Subjective Progress Note Date: 11/02/21 This is a 61-year-old female who is in the intensive care unit for treatment of respiratory failure related to Covid pneumonia complicated by bilateral pneumothorax. We are consulted for management of atrial fibrillation. Patient is currently on Cardizem and also metoprolol and Eliquis. She is in sinus rhythm and sinus tachycardia. Patient had tracheostomy and on respirator. From [facility] standpoint we'll continue current medical therapy. She is also on her face for DVT. Rest of the management as for the intensivists. 11/02/2021: From [facility] standpoint patient remains in sinus rhythm. Tolerating medications. Pulmonary status as per truck rental clerk. We'll continue both metoprolol and Cardizem along with anticoagulation. Objective - Vital Signs Vital signs: Vital Signs Temp 98.2 F 11/02/21 12:00 Pulse 95 11/02/21 15:00 Resp 30 H 11/02/21 15:00 BP 109/68 11/02/21 15:00 Pulse Ox 96 11/02/21 15:00 Intake & Output 11/01/21 11/02/21 11/02/21 18:59 06:59 18:59 Intake Total 898.374 5315.237 397 Output Total 357 019 5589 Balance 822.617 3008.237 -1818 Weight 86 kg 88.4 kg 88.4 kg Intake: IV 276 299 207 0.9 Normal Saline @ 20mL/ 240 260 180 hr pressure bag 36 39 27 Intake, IV Titration 253.978 963.237 100 Amount Clevidipine Butyrate 25 19.8 mg In Empty Bag 1 bag @ 1 MG/HR 2 mls/hr IV .Q24H [facility] Rx#:[id number] fentaNYL (PF) 2,500 mcg 56.57 491.817 In Sodium Chloride 0.9% 200 ml @ 0.5 MCG/KG/HR 4. 6 mls/hr IV .Q24H [facility] Rx# :[id number] propofoL 1,000 mg In 177.608 471.420 100 Empty Bag 1 bag @ Titrate IV .Q0M [facility] Rx#: [id number] Tube Feeding 120 110 90 Other 60 Output: Chest Tube Drainage 10 Chest Tube Right 0 Chest Tube Right Pleural 10 Urine 055 918 3942 Other: Voiding Method Indwelling Catheter Indwelling Catheter Indwelling Catheter ABP, PAP, CO, CI - Last Documented Arterial Blood Pressure 160/55 - Exam As per the chart. Patient is not personally examined information is gathered from databases software consultant notes - Labs CBC & Chem 7: 11/02/21 03:29 11/02/21 03:29 Labs: Abnormal Lab Results - Last 24 Hours (Table) 11/01/21 11/02/21 11/02/21 Range/Units 17:58 01:00 03:29 RBC 3.19 L (3.80-5.40) m/uL Hgb 8.9 L (11.4-16.0) gm/dL Hct 29.3 L (34.0-46.0) % MCHC 30.3 L (31.0-37.0) g/dL RDW 15.9 H (11.5-15.5) % ABG pCO2 (35-45) mmHg ABG pO2 (83-108) mmHg ABG HCO3 (21-25) mmol/L ABG Total CO2 (19-24) mmol/L ABG O2 Saturation (94-97) % Sodium (137-145) mmol/L Chloride (98-107) mmol/L Carbon Dioxide (22-30) mmol/L BUN (7-17) mg/dL Creatinine (0.52-1.04) mg/dL Glucose (74-99) mg/dL POC Glucose (mg/dL) 148 H 130 H (75-99) mg/dL 11/02/21 11/02/21 11/02/21 Range/Units 03:29 05:38 06:17 RBC (3.80-5.40) m/uL Hgb (11.4-16.0) gm/dL Hct (34.0-46.0) % MCHC (31.0-37.0) g/dL RDW (11.5-15.5) % ABG pCO2 67 H (35-45) mmHg ABG pO2 150 H (83-108) mmHg ABG HCO3 39 H (21-25) mmol/L ABG Total CO2 41 H (19-24) mmol/L ABG O2 Saturation 99.3 H (94-97) % Sodium 136 L (137-145) mmol/L Chloride 97 L (98-107) mmol/L Carbon Dioxide 37 H (22-30) mmol/L BUN 20 H (7-17) mg/dL Creatinine 0.37 L (0.52-1.04) mg/dL Glucose 110 H (74-99) mg/dL POC Glucose (mg/dL) 104 H (75-99) mg/dL 11/02/21 Range/Units 11:22 RBC (3.80-5.40) m/uL Hgb (11.4-16.0) gm/dL Hct (34.0-46.0) % MCHC (31.0-37.0) g/dL RDW (11.5-15.5) % ABG pCO2 (35-45) mmHg ABG pO2 (83-108) mmHg ABG HCO3 (21-25) mmol/L ABG Total CO2 (19-24) mmol/L ABG O2 Saturation (94-97) % Sodium (137-145) mmol/L Chloride (98-107) mmol/L Carbon Dioxide (22-30) mmol/L BUN (7-17) mg/dL Creatinine (0.52-1.04) mg/dL Glucose (74-99) mg/dL POC Glucose (mg/dL) 146 H (75-99) mg/dL Microbiology - Last 24 Hours (Table) 10/30/21 03:30 Gram Stain - Final Sputum Sputum Culture - Final Corynebacterium species Assessment and Plan (1) Transient atrial fibrillation Current Visit: Yes Status: Acute Code(s): I48.91 - UNSPECIFIED ATRIAL FIBRILLATION SNOMED Code(s): 44465169 (2) DVT (deep vein thrombosis) in Current Visit: Yes Status: Acute Code(s): O22.30 - DEEP PHLEBOTHROMBOSIS IN , UNSPECIFIED TRIMESTER SNOMED Code(s): 86426774 (3) Pneumonia due to COVID-19 virus Current Visit: Yes Status: Acute Code(s): U07.1 - COVID-19; J12.82 - PNEUMONIA DUE TO CORONAVIRUS DISEASE 2019 SNOMED Code(s): 883566341489113124 Plan: Continue current management with metoprolol, Cardizem and anticoagulation therapy. The rest of the management as for truck rental clerk
--- NOTE | 2021-11-02 17:34 | P.PN ---
Subjective Progress Note Date: 11/02/21 This is a 61-year-old female who was recently admitted with acute COVID-19 pneumonia with acute COVID-19 bilateral interstitial pneumonia and also with transaminitis and being closely monitored. Patient remains in the ICU and currently intubated and sedated with an FiO2 of 70% and PEEP is 18. 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 Patient did have a venous Doppler study done recently which showed left leg DVT and patient is maintained on Eliquis will continue. Patient also continues on empiric antibiotics and awaiting for sputum culture finalized. Patient was started on IV cefepime and will continue. Patient is also continued on oral dexamethasone along with vitamin and zinc supplements and will continue. Patient with some mild volume overload and given a dose of IV Lasix push today. 09/29/2021 Patient is seen and evaluated this morning continues to be closely monitored in the ICU and continues to be on mechanical ventilation and sedated. FiO2 was increased at 80% with a PEEP of 18 and oxygen saturations between 87-91%. Patient developing subcutaneous emphysema in the neck and chest wall area and chest x-ray today shows bilateral multifocal and confluent opacification is redemonstrated consistent with COVID-19 infection with a new small left apical pneumothorax estimated under 5% with new pneumomediastinum and recurrent overlying subcutaneous emphysema noted. Patient is white blood count mildly elevated at 16.1 and is continued on oral dexamethasone along with oral eliquis for anticoagulation. Patient continues to be on IV cefepime and blood and sputum cultures are negative thus far. 09/30/2021 Patient is seen today continues to be closely monitored in the ICU with multiple medical consultations following. Patient continues to be mechanically intubated and sedated with continued subcutaneous emphysema noted. Chest xray shows a trace left apical pneumothorax that is minimally smaller 7mm versus 1cm previously, extensive bilateral subcutaneous emphysema persists and diffuse interstitial changes and bilateral patchy opacities persist with slight improvement in aeration in the lower lungs. Per nursing staff corbin was clogged with copious amounts of white discharge and will add diflucan and corbin catheter has been changed and draining adequately. Patient continues on IV cefepime. Patient tolerating tube feeds and will continue. 10/01/2021 Patient is seen and evaluated in follow up this morning and continues to be closely monitored. Multiple medical consultations following and patient c ontinues to be on mechanical vent and sedated. Patient continues on IV Cefepime and diflucan. Patient chest xray today shows stable extensive subcutaneous emphysema, no pneumothorax, and patchy bilateral lung infiltrates remain present. INflammatory markers trending down. 10/04/2021 Patient is seen in follow-up continues to be closely monitored in the ICU. Patient remains on mechanical vent with an FI02 of 65% and peep is 18. Weaning trials being attempted with pulmonary regional sales director following closely. Patient continues with extensive subq emphysema noted on exam. 10/05/2021 Patient Is seen and evaluated this morning with continued attempts at weaning and continues on mechanical vent and intubated with pulmonary regional sales director following closely. Patient remains on Eliquis which will be held as surgery Dr. Nelson was consulted for possible PEG and trach tube placement for unsuccessful attempts at weaning from ventilation and prolonged hospitalization on mechanical vent. Chest x-ray today shows recurrent tiny left apical pneumothorax estimated under 5% with worsening overlying subcutaneous emphysema and again pneumomediastinum redemonstrated with multifocal confluent opacification's redemonstrated consistent with COVID-19 infection and/or arts are redemonstrated with no significant change from one day previously. Patient continues on FiO2 of 65% and PEEP was weaned down to 14 today. IV cefepime discontinued. 10/06/2021 Patient is seen in follow-up this morning per nursing staff patient had multiple runs of ectopy an irregular heart rate and rhythms with PVCs and cardiology consulted. Patient was placed on lidocaine drip and was originally on eliquis is currently on hold for possible PEG and trach placement with general surgery following. Patient had difficulty maintaining oxygen saturations and FiO2 was increased to 100% and PEEP continues at 14. Multiple medical consultations following and patient continues on oral steroids along with vitamin and zinc supplements along with fluconazole. Patient being started on IV Lasix daily and recommend close monitoring of electrolytes and kidney functions. 10/07/2021 Patient is seen in follow-up this morning continues to be monitored closely in the ICU with multiple medical consultations following. Patient is currently on mechanical vent with an FiO2 of 80% and PEEP is 16. General surgery also following for possible PEG and trach placement and will need to discuss with surgery about when this will occur. Patient remains on fluconazole. She also continues on vitamin and zinc supplements along with oral dexamethasone, clevidipine, Nimbex, IV Lasix, fentanyl and propofol and is off norepinephrine. Chest x-ray shows stable bilateral lung infiltrates. 10/08/2021 Patient is seen this morning continues to be on mechanical vent with an FiO2 of 85% and PEEP of 16. Patient continues with extensive subcutaneous emphysema and plans are for possible PEG and trach placement although on hold until possibly next week once more stable. Patient continues on Cleviprex along with fentanyl and propofol and is receiving IV Lasix daily. Patient also continues on lidocaine drip which is currently on hold and cardiology is following closely. Anticoagulant was resumed for now again until more stable to undergo PEG and trach placement. Chest x-ray today shows persistent bilateral multifocal and confluent increased opacification is with persistent overlying subcutaneous emphysema noted in pneumomediastinum is again redemonstrated. 10/09/2021 Patient evaluated today in ICU mechanical ventilation with FiO2 of 80%. Chest x-ray this morning shows similar multifocal airspace opacities and stable support lines and tubes. Similar subcutaneous emphysema scattered throughout the visualized thorax. PEG and trach plan for next week once more stable. Current meds include Cleviprex, Nimbex, fentanyl, propofol. She is receiving IV fluconazole, as well as IV Lasix. Levophed and Lidocaine gtt;s are on hold. Positive bowel sounds. Current vitals afebrile, heart rate 71, blood pressure 135/60 and oxygen saturation is 93%. Respirations 30. Labs today, white count 17, hemoglobin 11.6, sodium 139, potassium 3.8, BUN 34, creatinine 0.91, CO2 33, calcium 8.7, ALT 54, albumin 2.8 with blood sugars in the 100s. 10/10/2021 Patient evaluated today in the ICU on the mechanical VENT with fio2 of 100%. Positive bowel movement today, Stage 2 pressure ulcer on coccyx per RN, optifoam ordered. Per RN they were unable to patient as she was desaturating. They're unable to wean Fi02 currently as she does desaturate with any time of movement. She was lying more on her right side during evaluation and pulse ox was dropping into high 80s she was being repositioned by nurses. Plan is to PEG/TRACH patient tomorrow. Last family update was 4 days ago. We will call and discuss case today. Patient is afebrile, heart rate 84, respirations 30, blood pressure 141/55, 92% oxygen saturation on 100% Fi02, which was increased today up from 70 Fi02%. Labs today show WBC of 15.6, hgbl 10.7, sodium 138, potassium 3.9, chloride 100, CO2 37, glucose 117, calcium 8.2. Chest xray today shows pneumonia, ARDS. 10/11/2021 Patient is seen and evaluated in follow-up this morning continues to be closely monitored in the ICU and patient is continued on FiO2 of 90% and PEEP is 16 with multiple medical consultations following. Chest x-ray today shows new left- sided pneumothorax estimated 10-20% with overlying subcutaneous emphysema and pneumomediastinum redemonstrated with bilateral multifocal and confluent op acification's redemonstrated consistent with COVID-19 infection and/or arts and no significant change from one day previous. Patient is status post left chest tube insertion with pulmonary regional sales director. Cardiology following and patient is off lidocaine drip and maintaining sinus rhythm. Patient also continues on vitamin and zinc supplements along with oral dexamethasone and patient continues on IV Lasix 40 mg daily. Patient also continues off norepinephrine and is currently maintained on IV cefepime along with fluconazole. General surgery following as well and plan is for peg and trach placement in the am 10/12/2021 Patient is seen in the ICU this morning continues to be closely monitored by multiple medical consultations. Patient was scheduled for PEG and trach placement with general surgery Dr. Nelson today although canceled as patient became hypotensive requiring Levophed along with acute blood loss anemia and hemoglobin dropped to 6.5 this morning requiring 1 unit of PRBC. Patient continues with left chest tube with pneumothorax and chest x-ray today shows the jahaira is difficult to clearly identify on the present exam and the ET tube may be approximately 1 cm from the jaahira and there are bilateral chest tubes present with continued diffuse interstitial opacification is and more focal bibasilar opacification is with subcutaneous emphysema persists along the upper chest with slight improvement on the left. No appreciable pneumothorax noted. Patient having worsening right pleural effusion last night and received a right- sided chest tube with pulmonary regional sales director. FiO2 is 90% and PEEP of 16. Again overall prognosis remains extremely poor and guarded. 10/13/2021 Patient is seen in follow-up this morning in the ICU with multiple medical consultations following. Lengthy discussion was had with pulmonary regional sales director and family members and would like to continue with full CODE STATUS and plan is in place for PEG tube and tracheostomy placement tomorrow. Anticoagulant on hold and Dr. Nelson plans for surgery tomorrow. Patient continues on oral dexamethasone along with IV cefepime, vitamin and zinc supplements. Patient also continues on Cleviprex and Nimbex. Patient also continues on fentanyl and propofol and will continue. Chest x-ray today shows stable portable chest with bilateral chest tubes without sizable pneumothorax identified and continued subcutaneous air persists with persistent interstitial changes bilaterally with airspace disease in the bilateral lung bases that are unchanged. FiO2 is 60% and PEEP of 16. 10/14/2021 Patient is seen and evaluated in the ICU being closely monitored with multiple medical consultations following. at the bedside today and had detailed discussion with overall prognosis. Plan is to proceed with PEG tube and tracheostomy placement with surgery Dr. Nelson today and anticoagulant continues to be on hold for this procedure. Patient continues on mechanical ventilation with an FiO2 of 70% and PEEP of 16. Chest x-ray today shows improving infiltrate with bibasilar residual and bilateral chest tubes remain present with no pneumothorax evident on either side and again subcutaneous emphysema is noted. 10/15/2021 Patient is seen in the ICU being closely monitored. Patient is status post PEG and trach placement yesterday. Chest x-ray today shows bilateral patchy lung infiltrates greater at the right base with diffuse increased lung markings and bilateral chest tubes remain present and subcutaneous emphysema on the right is diminished. Patient continues with an FI02 of 60 and peep is 16. To resume tube feeds per surgery. Patient continues on norepinephrine and sedation. Patient is receiving IV lasix daily. 10/16/2021 Patient is currently in the MICU and remains on ventilator. Status post tracheostomy and PEG tube placement on 10/14/2021. Patient is sedated and paralyzed. Also on Cleviprex. Chest x-ray showed no acute cardiopulmonary disease with no interval changes. Laboratory data showed WBC 16.9 hemoglobin 8.9 and platelets 278 BUN 19 and creatinine 0.5 and calcium 8.1 patient is being continued on dexamethasone 6 mg daily, Lasix 40 mg IV daily and multivitamins and anticoagulation with Eliquis. Pulmonary and general surgery is on board. 10/17/2021 Patient is in the MICU. Remains on the current ventilator via tracheostomy. Status post tracheostomy and PEG tube placement on 10/14/2021. Sedated and paralyzed and also on fentanyl drip. Currently on assist control with tidal volume of 420, FiO2 80% and PEEP of 16. Respiratory of 30. Chest x-ray showed no interval change in acute cardiopulmonary disease Laboratory data showed WBC 15.8 hemoglobin 8.2 and platelets 271 Sodium 136 potassium 3.1 chloride 100 bicarb is 32 BUN 21 creatinine 0.48 and albumin 2.3 Patient is being continued on Lasix IV, dexamethasone and anticoagulation with Eliquis. 10/18/2021 Patient is seen in follow-up and continues in the ICU with multiple medical consultations following. Patient continues on mechanical vent with an FI02 of 70% and peep is 16. Chest xray shows overall stable exam with interstitial changes and bilateral patchy infiltrates with right greater than left and greater at the bases with bilateral chest tubes noted. no appreciable pneumothorax. Patient continues on propofol and fentanyl along with cleviprex and rocuronium. Eliquis has been resumed. Potassium is 3.3 and will be replaced per protocol. Patient also continues to receive IV lasix daily. 10/19/2021 Patient is seen this morning and continues to be in the ICU with multiple medical consultations following. Patient continues with bilateral chest tubes and remains on mechanical ventilation with an FiO2 of 65% and PEEP is 16. Chest x-ray today shows Bilateral multifocal and confluent opacification greatest in the lower lungs consistent with COVID-19 infection and/or ARDS all redemon strated with no significant change from one day earlier and continued bilateral chest tubes without pneumothorax redemonstrated. 10/20/2021 Patient continues to be in the ICU under close critical monitoring with multiple medical consultations following. Patient continues with bilateral chest tubes although per nursing staff may possibly discontinued today. Chest x-ray today shows stable portable chest with no change in scattered mixed interstitial and alveolar infiltrates. Patient remains on mechanical ventilation via tracheostomy with an FiO2 of 55% and PEEP is 15. Patient continues on Cleviprex along with rocuronium and sedation. 10/21/2021 Patient continues in the MICU being closely monitored. Chest tubes were removed today and chest xray stable with interstitial changes and basilar ground glass, that is similar to previous with slight improvement. Patient continues on mechanical vent with an FI02 of 70% and peep is 14. Patient remains sedated and per nursing staff working on weaning paralytics. Patient continued on rocuronium. Patient is tolerating tube feeds and also continues on IV lasix daily with generalized edema noted throughout. 10/22/2021 Patient is currently MICU. Patient was taken off paralytic and chest tubes yesterday. Continued on pressure support with PEEP of 13. 88 this morning patient again desaturated. Patient became hypotensive and patient was started on norepinephrine. Chest x-ray showed large pneumothorax on the right. Right chest tube was reinserted. Patient is on pressure control. Remains sedated and mechanically ventilated. Laboratory data showed WBC 13.7 hemoglobin 7.7 and platelets 314 Sodium 140 potassium 3.0 chloride 102 bicarb is 37 BUN 19 and creatinine 0.44 and calcium 8.1 Patient is being continued dexamethasone multivitamins and anticoagulation with Eliquis. Patient is also on IV Lasix. Potassium will be replaced. 10/23/2021 Patient is currently MICU. Patient is on mechanical ventilator via trach tube. Patient developed right-sided tension pneumothorax. Again patient had issues with pneumothorax around 10 PM yesterday. Chest tube has to be replaced. Patient is also requiring pressor support. Off pressors this morning. On pressure support. PEEP of 13 and FiO2 100%. Laboratory data showed WBC 13.7 hemoglobin 7.7 and platelets 314 Sodium 140 potassium 3.0 chloride 102 bicarb is 37 BUN 19 and creatinine 0.44 and calcium 8.1 cultures have been negative. Patient is being current on dexamethasone, Eliquis and also IV Lasix 40 mg daily. 10/24/2021 Patient is currently in the MICU. Currently on mechanical ventilator via tracheal tube. Continue propofol and fentanyl. Remains pressure support with PEEP of 13 FiO2 reduced to 70%. Chest x-ray showed bilateral multifocal and confluent opacities consistent with COVID-19 infection and ARDS are redemonstrated and stable. Right-sided chest tube with small apical pneumothorax estimated 10 to 15% improved from 1 day earlier. Pneumo mediastinum noted. Laboratory data showed WBC 14.2 hemoglobin 7.1 and platelets 317 Sodium 140 potassium 3.2 chloride 104 bicarb is 38 BUN 20 and creatinine 0.46 and calcium 7.8. Patient is being continued on dexamethasone, Eliquis and also on IV Lasix. Currently on multivitamins. 10/25/2021 Patient is seen this morning continues to be in the ICU with close monitoring. Patient continues on mechanical vent via tracheostomy and FiO2 of 65% with a PEEP of 13. Chest x-ray this morning shows right-sided chest tube in place with continued small to moderate right sided pneumothorax slightly smaller in the interval, apical component measuring 2.3 cm versus 2.8 cm previously along with interstitial opacities persist in pneumonitis versus mild pulmonary edema, status post right side thoravent place this morning with pulmonary regional sales director showing resolution of the apical and lateral components of the pneumothorax and 5 mm basilar components remain. Patient requiring more oxygen supplementation and FiO2 being increased to 75%. Hemoglobin found to be 6.3 and awaiting to receive a unit of PRBC. Patient also continues on Nimbex along with Cleviprex, oral dexamethasone, vitamin and zinc supplements along with oral eliquis, along with fentanyl and propofol for sedation. 10/26/2021 Patient is seen in follow-up today continues on mechanical ventilation with an FiO2 of 75% which is currently titrating down to 65% per nursing staff with an FiO2 of 13. Patient continues on Cleviprex and Nimbex and attempts at weaning although not tolerating well. Patient also continues on fentanyl and propofol for sedation. Chest x-ray today shows a right-sided thoracic vent and chest to both present and overlying appropriate positions with minimal right-sided apical pneumothorax present and persistent bilateral interstitial groundglass opacities noted with no evident pleural effusion to correlate for pneumonia. Hemoglobin improved to 8.7 today after 1 unit of PRBC. Will continue to monitor closely. 10/27/2021 Patient is seen today continues to be closely monitored in the ICU on mechanical vent via tracheostomy with an FiO2 of 70% and PEEP is 13. Patient continues on IV Lasix daily along with propofol and fentanyl for sedation. Patient also continues to be on Cleviprex as blood pressure is elevated. Per nursing staff attempts at weaning some sedation although patient not tolerating well. Patient continues with chest tubes on the right and there is an air leak noted and also continues with thoravent on the right. Chest x-ray today shows enlarging right- sided pneumothorax estimated at 15% with no significant change in interstitial infiltrate seen bilaterally. 10/28/2021 Patient is seen in the ICU this morning continues on mechanical ventilation with a FI02 of 85% and peep is 13. Patient continues on propofol for sedation along with Nimbex and also patient is on norepinephrine with hypotension at times. Chest xray today shows continued diffuse interstitial infiltrates with continued right side pneumothorax slightly larger in the interval, apical component measu ring 1.9cm versus 1.5. Potassium was found to be 3.0 and being replaced. 10/29/2021 Patient is seen and evaluated today and continues to be closely monitored in the ICU. Multiple medical consultations following. Patient continues on mechanical ventilation via tracheostomy and also PEG tube with tube feedings and tolerating. FiO2 is currently 60% with a PEEP of 14. Cleviprex is currently off and patient continues on decreased doses of sedation. Patient also continues on IV Levaquin and will continue. Patient is currently off of Levophed and Nimbex. Patient was continued on 40 mg of Lasix daily which is currently being increased to twice daily and will continue to monitor closely. Patient's potassium was found to be 2.8 today and being replaced per protocol. Chest x-ray this morning showed a continued right-sided pneumothorax increasing in size currently estimated at 40% and emergent chest tube placement on the right was performed by pulmonary regional sales director and subsequent removal of right side thoravent. Repeat chest x-ray showed a diminished right sided pneumothorax on the right and increasing diffuse infiltrates greater on the right. 10/30/21 This patient is still on the vent. Vent settings are noted. The patient continues to be unresponsive. Blood pressure is fluctuating. Dr. Alejandro is following the patient closely. Family updated. Prognosis guarded. Brad morrison. See orders for further details. 10/31/2021 This patient remains to be on the vent. The patient has significant difficulties in weaning off from the vent. The pneumothorax on the right seemed to be little improving. Patient has chest tubes in situ. Patient also developed atrial fibrillation faster [place]. The patient is mechanically intubated. Cardizem initiated. Cardiology is consulted. Dr. Alejandro is following the patient closely. The family at the bedside updated about the prognosis. Review of systems: Unable to obtain as patient is mechanically intubated and sedated 11/01/2021 She continues in the ICU on mechanical vent via tracheostomy and FiO2 is currently 70% with a PEEP of 14. Currently working on transitioning to metoprolol multiple medical consultations following. Patient continues with right-sided chest tubes and cardiology also following and patient is t ransitioned to oral Cardizem along with metoprolol. 2-D echo shows mild concentric left ventricular hypertrophy with overall LV systolic function normal with an EF of 55-60% and also noted to have some free space that may represent effusion or a pericardial fat pad. Chest x-ray today shows interval increase in size of small right-sided pneumothorax apical component 2.3 cm versus 1.8 cm previously and a lateral basilar component is now seen measuring 5 mm with 2 chest tubes continuing and also similar diffuse patchy interstitial opacification persist. 11/02/2021 Patient continues in the MICU on mechanical ventilation and FI02 is 55% with a peep of 14. Continued attempts at weaning sedatives to assess mentation and using dilaudid as needed to control sedation. Cardiology following and patient continues in sinus rhythym currently with oral cardizem and metoprolol. Patient has completed the antibiotic course of Levaquin and is being discontinued. Chest xray shows stable right upper lung pneumothorax with 2 chest tubes that will remain. Persistent patchy and confluent increase opacities redemonstrated. Patient will be given a dose of lasix today. Patient is afebrile. Review of systems: Unable to obtain as patient is mechanically intubated and sedated Active Medications Apixaban (Apixaban 5 Mg Tab) 5 mg PO BID [facility]; Protocol Last Admin: 11/02/21 08:54 Dose: 5 mg Documented by: Artificial Tears (Artificial Tears-Hypromellose Drops 15 Ml Btl) 2 drops BOTH EYES QID CRITICAL ACCESS [facility] Last Admin: 11/02/21 12:47 Dose: 2 drops Documented by: Ascorbic Acid (Ascorbic Acid 500 Mg Tab) 500 mg PO BID [facility] Last Admin: 11/02/21 08:31 Dose: 500 mg Documented by: Diltiazem HCl (Diltiazem Oral 30 Mg Tab) 30 mg PO QID [facility] Last Admin: 11/02/21 12:59 Dose: 30 mg Documented by: Docusate Sodium (Docusate Oral Soln 100 Mg/10 Ml Cup) 100 mg PO DAILY PRN PRN Reason: Constipation Last Admin: 10/18/21 15:53 Dose: 100 mg Documented by: Ergocalciferol (Ergocalciferol 1,250 Mcg (50,000 Iu) Capsule) 1,250 mcg PO [facility] Last Admin: 10/31/21 08:21 Dose: 1,250 mcg Documented by: Hydromorphone HCl (Hydromorphone 1 Mg/Ml 1 Ml Syringe) 1 mg IVP Q3H PRN PRN Reason: Pain Last Admin: 11/02/21 17:03 Dose: 1 mg Documented by: Sodium Chloride (Saline 0.9%) 1,000 mls @ 20 mls/hr IV .Q24H [facility] Last Admin: 11/02/21 02:00 Dose: 20 mls/hr Documented by: Clevidipine 25 mg/ IV Solution 50 mls @ 2 mls/hr IV .Q24H [facility]; Protocol Last Titration: 11/01/21 10:45 Dose: 0 mg/hr, 0 mls/hr Documented by: Propofol 1,000 mg/ IV Solution 100 mls @ 0 mls/hr IV .Q0M [facility]; Protocol Last Admin: 11/02/21 11:25 Dose: 50 mcg/kg/min, 27.9 mls/hr Documented by: Insulin Aspart (Insulin Aspart (Novolog) 100 Unit/Ml Vial) 0 unit SQ Q6HR [facility]; Protocol Last Admin: 11/02/21 12:47 Dose: 1 unit Documented by: Metoprolol Tartrate (Metoprolol Tartrate 50 Mg Tab) 50 mg PO BID [facility] Last Admin: 11/02/21 08:31 Dose: 50 mg Documented by: Miscellaneous Information (Pneumonia Protocol Utilized 1 Each Mis) 1 each PO ONCE PRN PRN Reason: Per Protocol Miscellaneous Information (Potassium Replacement Protocol 1 Each Mis) 1 each MISCELLANE DAILY PRN; Protocol PRN Reason: Per Protocol Naloxone HCl (Naloxone 0.4 Mg/Ml 1 Ml Vial) 0.2 mg IV Q2M PRN PRN Reason: Opioid Reversal Pantoprazole Sodium (Pantoprazole 40 Mg/10 Ml Vial) 40 mg IV DAILY [facility] Last Admin: 11/02/21 08:32 Dose: 40 mg Documented by: Potassium Bicarbonate (Potassium Bicarbonate/Cit Ac 20 Meq Tablet.Eff) 20 meq PO TID [facility] Last Admin: 11/02/21 15:21 Dose: 20 meq Documented by: Prednisone (Prednisone 20 Mg Tab) 60 mg PO DAILY [facility] Last Admin: 11/02/21 08:30 Dose: 60 mg Documented by: Quetiapine Fumarate (Quetiapine 50 Mg Tab) 50 mg PO BID [facility] Last Admin: 11/02/21 08:31 Dose: 50 mg Documented by: Zinc Sulfate (Zinc Sulfate 220 Mg Cap) 220 mg PO DAILY [facility] Last Admin: 11/02/21 08:31 Dose: 220 mg Documented by: Physical Exam: Gen: This is a 61-year-old female currently sedated and intubated. mechanical ventilation Fio2 55% with a PEEP of 14. HEENT: Head is atraumatic, normocephalic. Pupils equal, round. Sclerae is anicteric. tracheostomy noted NECK: Supple. No JVD. No lymphadenopathy. No thyromegaly. tracheostomy noted LUNGS: Diminished breath sounds bilaterally with coarse rhonchi and crackles noted. No intercostal retractions. Right side chest tubes noted, tachypneic HEART: S1, S2 are muffled ABDOMEN: Soft. Obese. Bowel sounds are present. No masses. No tenderness. peg tube noted. EXTREMITIES: No pedal edema. No calf tenderness. generalized edema noted NEUROLOGICAL: Patient is currently intubated and sedated Assessment: Acute COVID-19 infection with acute COVID-19 bilateral interstitial pneumonia with hypoxic hypercarbic respiratory failure on mechanical vent status post trach and peg tube placement on 10/14/2021 Worsening right side pneumothorax status post chest tube placement and thoravent removal on 10/29/2021 bilateral pneumothoraces with chest tube placement and status post removal of chest tubes 2.3.2021 Status post reinsertion of chest tubes on 10/22/2021 due to a tension pneumothorax on the right, status post thoraVent placement as well on the right on 10/25/2021, worsening pneumothorax on the right with continued air leak of the chest tube Atrial fibrillation, new onset, currently rate controlled on metoprolol and cardizem Non-sustained ventricular tachycardia, currently sinus Acute left leg deep vein thrombosis Primary hypercoagulable state and factor V deficiency Obesity with a body mass index of 38.1 DVT prophylaxis: on Eliquis Full code Plan: Recommend to continue with current medications and follow along closely with multiple medical consultations. Prognosis remains extremely poor and guarded with multiple complex medical issues noted. Patient continues on mechanical ventilation via tracheostomy and FiO2 55% with PEEP of 14. Recommend to continue with current medications. Currently cardiology following closely and continued on oral Cardizem and metoprolol. Chest x-ray as mentioned previously and continued with right-sided chest tubes. Attempting to wean some sedation to assess mentation. Recommend repeat labs and chest x-ray in a.m. and continued close monitoring. Again due to multiple complex medical issues overall prognosis is extremely poor and quite guarded. Objective - Vital Signs Vital signs: Vital Signs Temp 97.7 F 11/02/21 04:00 Pulse 81 11/02/21 07:00 Resp 26 H 11/02/21 07:00 BP 109/68 11/01/21 19:00 Pulse Ox 95 11/02/21 07:00 Intake & Output 11/01/21 11/02/21 11/02/21 18:59 06:59 18:59 Intake Total 372.161 6111.237 Output Total 400 305 Balance 117.131 8026.237 Weight 86 kg 88.4 kg Intake: IV 276 299 0.9 Normal Saline @ 20mL/ 240 260 hr pressure bag 36 39 Intake, IV Titration 253.978 963.237 Amount Clevidipine Butyrate 25 19.8 mg In Empty Bag 1 bag @ 1 MG/HR 2 mls/hr IV .Q24H [facility] Rx#:[id number] fentaNYL (PF) 2,500 mcg 56.57 491.817 In Sodium Chloride 0.9% 200 ml @ 0.5 MCG/KG/HR 4. 6 mls/hr IV .Q24H [facility] Rx# :[id number] propofoL 1,000 mg In 177.608 471.420 Empty Bag 1 bag @ Titrate IV .Q0M [facility] Rx#: [id number] Tube Feeding 120 110 Other 60 Output: Chest Tube Drainage 10 Chest Tube Right 0 Chest Tube Right Pleural 10 Urine 390 305 Other: Voiding Method Indwelling Catheter Indwelling Catheter ABP, PAP, CO, CI - Last Documented Arterial Blood Pressure 124/53 - Labs CBC & Chem 7: 11/02/21 03:29 11/02/21 03:29 Labs: Abnormal Lab Results - Last 24 Hours (Table) 11/01/21 11/01/21 11/02/21 Range/Units 11:20 17:58 01:00 RBC (3.80-5.40) m/uL Hgb (11.4-16.0) gm/dL Hct (34.0-46.0) % MCHC (31.0-37.0) g/dL RDW (11.5-15.5) % ABG pCO2 (35-45) mmHg ABG pO2 (83-108) mmHg ABG HCO3 (21-25) mmol/L ABG Total CO2 (19-24) mmol/L ABG O2 Saturation (94-97) % Sodium (137-145) mmol/L Chloride (98-107) mmol/L Carbon Dioxide (22-30) mmol/L BUN (7-17) mg/dL Creatinine (0.52-1.04) mg/dL Glucose (74-99) mg/dL POC Glucose (mg/dL) 149 H 148 H 130 H (75-99) mg/dL 11/02/21 11/02/21 11/02/21 Range/Units 03:29 03:29 05:38 RBC 3.19 L (3.80-5.40) m/uL Hgb 8.9 L (11.4-16.0) gm/dL Hct 29.3 L (34.0-46.0) % MCHC 30.3 L (31.0-37.0) g/dL RDW 15.9 H (11.5-15.5) % ABG pCO2 67 H (35-45) mmHg ABG pO2 150 H (83-108) mmHg ABG HCO3 39 H (21-25) mmol/L ABG Total CO2 41 H (19-24) mmol/L ABG O2 Saturation 99.3 H (94-97) % Sodium 136 L (137-145) mmol/L Chloride 97 L (98-107) mmol/L Carbon Dioxide 37 H (22-30) mmol/L BUN 20 H (7-17) mg/dL Creatinine 0.37 L (0.52-1.04) mg/dL Glucose 110 H (74-99) mg/dL POC Glucose (mg/dL) (75-99) mg/dL 11/02/21 Range/Units 06:17 RBC (3.80-5.40) m/uL Hgb (11.4-16.0) gm/dL Hct (34.0-46.0) % MCHC (31.0-37.0) g/dL RDW (11.5-15.5) % ABG pCO2 (35-45) mmHg ABG pO2 (83-108) mmHg ABG HCO3 (21-25) mmol/L ABG Total CO2 (19-24) mmol/L ABG O2 Saturation (94-97) % Sodium (137-145) mmol/L Chloride (98-107) mmol/L Carbon Dioxide (22-30) mmol/L BUN (7-17) mg/dL Creatinine (0.52-1.04) mg/dL Glucose (74-99) mg/dL POC Glucose (mg/dL) 104 H (75-99) mg/dL Microbiology - Last 24 Hours (Table) 10/30/21 03:30 Gram Stain - Final Sputum Sputum Culture - Final Corynebacterium species
[2021-11-02 17:42] LABS: Glucose,Whole Blood 152 mg/dL (75-99)
[2021-11-02] MEDS: NYSTATIN 100,000 UNIT/ML SUSP 500,000 UNIT/5 ML CUP PO SCH ×2 (18:29→21:20)
[2021-11-03 02:41] LABS: Glucose,Whole Blood 123 mg/dL (75-99)
[2021-11-03] MEDS: INSULIN ASPART (NovoLOG) 100 UNIT/ML VIAL SQ SCH ×5 (04:27→23:52)
[2021-11-03 05:13] LABS: Glucose,Whole Blood 105 mg/dL (75-99)
[2021-11-03 05:46] LABS: ABG Base Excess 17.8 mmol/L; ABG Oxygen Saturation 95.6 % (94-97); ABG PCO2 60 mmHg (35-45); ABG PH 7.45 (7.35-7.45); ABG PO2 77 mmHg (83-108); ABG TCO2 44 mmol/L (19-24)
[2021-11-03 05:49] LABS: Anisocytosis Slight; Basophils % (A) 0 %; Eosinophils # (A) 0.1 k/uL (0-0.7); Eosinophils % (A) 1 %; HCT 30.9 % (34.0-46.0); HGB 9.3 gm/dL (11.4-16.0); Hypochromasia Marked; Lymphocytes # (A) 1.9 k/uL (1.0-4.8); Lymphocytes % (A) 24 %; MCH 27.7 pg (25.0-35.0); MCHC 30.2 g/dL (31.0-37.0); MCV 91.6 fL (80.0-100.0); Mean Platelet Volume 8.4; Monocytes # (A) 0.4 k/uL (0-1.0); Monocytes % (A) 6 %; Neutrophils # (A) 5.3 k/uL (1.3-7.7); Neutrophils % (A) 68 %; Platelet Count 353 k/uL (150-450); Poikilocytosis Slight; RBC 3.37 m/uL (3.80-5.40); RDW 16.2 % (11.5-15.5); WBC 7.8 k/uL (3.8-10.6)
[2021-11-03 05:49] LABS: ABG HCO3 42 mmol/L (21-25); Allen Test Performed? no
[2021-11-03 05:52] LABS: African American GFR (CKD) >90 (>60 ml/min/1.73 sqM); Blood Urea Nitrogen 19 mg/dL (7-17); Calcium 8.6 mg/dL (8.4-10.2); Carbon Dioxide 39 mmol/L (22-30); Chloride 98 mmol/L (98-107); Glucose 88 mg/dL (74-99); Non-African American GFR(CKD) >90 (>60 ml/min/1.73 sqM); Potassium 3.3 mmol/L (3.5-5.1)
[2021-11-03 06:31] LABS: Anion Gap 2 mmol/L; Sodium 139 mmol/L (137-145)
[2021-11-03] MEDS: SODIUM CHLORIDE 0.9% 1,000 ML IV SCH (08:14)
[2021-11-03] MEDS: CLEVIDIPINE BUTYRATE 25 MG in EMPTY BAG 1 BAG IV SCH (08:15)
--- NOTE | 2021-11-03 08:17 | XR ---
EXAMINATION TYPE: XR chest 1V portable DATE OF EXAM: 11/03/2021 COMPARISON: 11/02/2021 HISTORY: SOB, Follow Up FINDINGS: Tracheostomy tube is in place. 2 right-sided chest tubes noted. Right-sided pneumothorax is unchanged . Right-sided PICC line in place. Scattered interstitial and alveolar infiltrates throughout both lung patterson persist unchanged. Stable appearance of the cardio-mediastinal structures at this time. IMPRESSION: 1. Stable portable chest. Clinical correlation and follow up until resolution is recommended.
[2021-11-03] MEDS: predniSONE 20 MG TAB PO SCH (08:22)
[2021-11-03] MEDS: POTASSIUM BICARBONATE/CIT AC 20 MEQ TABLET.EFF PO SCH ×3 (08:22→20:32)
[2021-11-03] MEDS: amLODIPine 10 MG TAB PO SCH (08:23)
[2021-11-03] MEDS: QUEtiapine 50 MG TAB PO SCH ×2 (08:23→20:32)
[2021-11-03] MEDS: DILTIAZEM ORAL 30 MG TAB PO SCH ×4 (08:23→20:32)
[2021-11-03] MEDS: ZINC SULFATE 220 MG CAP PO SCH (08:23)
[2021-11-03] MEDS: ASCORBIC ACID 500 MG TAB PO SCH ×2 (08:23→20:32)
[2021-11-03] MEDS: APIXABAN 5 MG TAB PO SCH ×2 (08:23→20:32)
[2021-11-03] MEDS: METOPROLOL TARTRATE 50 MG TAB PO SCH ×2 (08:24→23:52)
[2021-11-03] MEDS: ARTIFICIAL TEARS-HYPROMELLOSE DROPS 15 ML BTL BOTH EYES SCH ×4 (08:26→20:33)
[2021-11-03] MEDS: PANTOPRAZOLE 40 MG/10 ML VIAL IV SCH (08:27)
[2021-11-03] MEDS: NYSTATIN 100,000 UNIT/ML SUSP 500,000 UNIT/5 ML CUP PO SCH ×4 (08:27→20:32)
[2021-11-03] MEDS: DEXMEDETOMIDINE/0.9% NACL(PMX) 400 MCG in EMPTY BAG 1 BAG IV SCH ×2 (08:34→14:27)
[2021-11-03] MEDS: LOSARTAN 25 MG TAB PO SCH (08:42)
--- NOTE | 2021-11-03 09:51 | P.PN ---
Subjective Progress Note Date: 11/03/21 Principal diagnosis: Acute hypoxic respiratory failure secondary to COVID-19 pneumonia On 11/01/2021 patient seen in follow-up in the intensive care unit, she remains trached to the ventilator, and sedated, she is currently on assist control with a rate of 26, tidal arm is 350, FiO2 of 70% and PEEP of 14, this morning's blood gas shows pO2 of 72, pCO2 of 63 and pH of 7.41. Today's chest x-ray showing interval increase in the size of small right-sided pneumothorax with apical component of 2.3 cm versus 1.8 cm previously. Bilateral basilar component is now seen measuring 5 mm, there are 2 chest [address]. In and there is similar diffuse patchy interstitial opacities. 2 right-sided chest tubes are to wall suction, with no evidence of leak. Patient is sedated with Diprivan and at 75 mics per kilo per minute, fat no added 2.5 mics per kilo per minute, 0.9 normal saline at 10, Cleviprex is up 4 mg per hour. She is on the tube feedings with vital HP at 10 with a goal of 10, is standard water flushes with 30 mL of water every 4 hours. Patient has not been tolerating sedation holidays very well for the past several days and become quite agitated h ypertensive, and starts having unstable vital signs. The patient has not had any weaning trials thus far. Today's labs have been reviewed, white blood cell, 7.8, hemoglobin is 9.3, platelet count is 338, sodium is 139, potassium 3.6, chloride is 99, CO2 is 39, BUN is 15, creatinine 0.39. Patient remains on Levaquin, she has had blood and sputum cultures that have shown no growth thus far, sputum Gram stain from 10/30/2021 showed many PMNs, rare epithelial cells, many gram-positive bacilli and few gram-negative bacilli and few gram-positive cocci. She had some low-grade fevers overnight. Patient has been tachycardic in the sinus mechanism with a rate of 125 BPM. She is on oral Cardizem at 30 mg 4 times a day for recent history of runs of A. fib with RVR. She is on Eliquis for anticoagulation. As far as COVID-19 treatment she is on Decadron 4 mg daily she is on multivitamins. Her last set of inflammatory markers back on 10/01/2021 showed LDH within normal limits at 531, and CRP of 2.1. Most recent pro- calcitonin from 10/29/2021 was 0.23. Patient has not required any vasopressor support, she is actually been hypertensive and for that reason we will add metoprolol 50 mg twice daily for improved blood pressure control. On 11/02/2021 patient seen in follow-up in the intensive care unit, she remains trached to the ventilator, sedated, currently on assist-control with a rate of 26, tidal M3 50, FiO2 of 55% and PEEP of 14. This morning's blood gas shows pO2 of 150, pCO2 of 67, and pH of 7.37, this was done on FiO2 of 70%, and FiO2 has been decreased down to 55%. Today's chest x-ray shows stable right upper lobe pneumothorax despite [address], persistent multifocal confluent increased opacity consistent with COVID-19 infection, no significant change from one day earlier. Patient is currently sedated with Diprivan at 65 mics per kilo per minute, fentanyl infusion at 2.5 mics per kilo per minute, 0.9 normal saline at a rate of 20 ML per hour, patient is on tube feedings at 10 mL per hour, with a goal of 10. Patient has [address], the medial chest tube has no air leak, remains to wall suction, and more lateral right-sided chest tube has intermittent air leak and remains to wall suction. Patient has been off the Cleviprex since yesterday morning at 10:45 in the morning, patient was placed on metoprolol 50 mg twice daily, and she remains on oral Cardizem 30 mg 4 times daily and Eliquis for new onset atrial fibrillation . Yesterday we had dexamethasone DC'd and place the patient on prednisone 60 mg daily. In addition patient is an +1.3 L net fluid balance over the last 24 hours, and patient will be given a dose of Lasix. Her oxygenation seems to have improved on today's blood gas, and we were able to contact the FiO2 down to 55%. She's had no acute events overnight. The rest of her blood work has been reviewed her white blood cell count is 7.2, hemoglobin is 8.9, platelet count is 304, sodium is 136, potassium is 4.0, chloride is 97, CO2 is 37, B1 is 20 creatinine 0.37. Her sputum culture showed Corynebacterium species, and blood cultures have been negative. Patient has received 5 day course of Levaquin which can be discontinued at this time, her procalcitonin level was negative at 0.23. On November 03, 2021 patient seen in follow-up in intensive care unit. she remains trached to the ventilator, sedated, she is on control with a rate of 26, tidal 350, FiO2 55% and PEEP of 14. This morning's blood gas shows pO2 of 76, pCO2 of 60, and pH of 7.45. Her peak airway pressures 26, and plateau pressure of 30. Today's chest x-ray shows stable portable chest, 2 right-sided chest tubes, right-sided pneumothorax is unchanged compared to yesterday, there are scattered interstitial and alveolar infiltrates throughout both lungs unchanged. Patient is currently sedated on Diprivan at 55 mics per kilo per minute, fentanyl drip has been discontinued, patient has been getting intermittent doses of IV Dilaudid for discomfort. Patient has been hypertensive especially during periods of agitation, and sedation holidays. Yesterday patient was off sedation for 30 minutes, did not follow purposeful command. she did however become agitated, restless, and her vital signs were becoming unstable, she was very d yssynchronous with the ventilator, and she had to be placed back on sedation. Today's labs have been reviewed, her white blood cell count is 7.8, hemoglobin is 9.3, platelet count is 353, sodium is 139, potassium is 3.3, this is being replaced per protocol, in addition to scheduled doses of K-Lyte 20 in the every 3 times daily, chloride is 98, CO2 39, BUN is 19 creatinine 0.30. Patient is receiving nutrition with vital hypertension at a rate of 47 with a goal of 47 and standard water flushes. She has had no acute events overnight, she still has [address], the medial chest tube is positive for intermittent air leak, and lateral chest tube on the right side shows no air leak. Patient continues on prednisone 60 mg daily, she is on oral Cardizem, and Eliquis for anticoagulation, she remains in A. fib with a controlled rate. Objective - Vital Signs Vital signs: Vital Signs Temp 98.6 F 11/03/21 00:00 Pulse 92 11/03/21 07:00 Resp 26 H 11/03/21 07:00 BP 109/68 11/03/21 04:00 Pulse Ox 93 L 11/03/21 07:00 Intake & Output 11/02/21 11/03/21 11/03/21 18:59 06:59 18:59 Intake Total 563 746 140.467 Output Total 2360 555 90 Balance -1797 191 50.467 Weight 88.4 kg 89.4 kg Intake: IV 253 276 23 0.9 Normal Saline @ 20mL/ 220 240 20 hr pressure bag 33 36 3 Intake, IV Titration 200 200 107.467 Amount Clevidipine Butyrate 25 7.467 mg In Empty Bag 1 bag @ 1 MG/HR 2 mls/hr IV .Q24H [facility] Rx#:[id number] propofoL 1,000 mg In 200 200 100 Empty Bag 1 bag @ Titrate IV .Q0M [facility] Rx#: [id number] Tube Feeding 110 120 10 Other 150 Output: Chest Tube Drainage 20 Chest Tube Right Pleural 20 Urine 2340 555 90 Other: Voiding Method Indwelling Catheter Indwelling Catheter ABP, PAP, CO, CI - Last Documented Arterial Blood Pressure 144/59 - Exam GENERAL EXAM: Sedated, trached to the ventilator, on assist control mode of ventilation with a rate of 26, tidal 350, FiO2 of 55% and PEEP of 14, 61-year-old white female, comfortable in no apparent distress. HEAD: Normocephalic/atraumatic. EYES: Normal reaction of pupils, equal size. Conjunctiva pink, sclera white. NOSE: Clear with pink turbinates. THROAT: No erythema or exudates. NECK: No masses, no JVD, no thyroid enlargement, no adenopathy. CHEST: No chest wall deformity. Symmetrical expansion. 2 right-sided chest tubes in place, there is intermittent air leak from the medial right-sided chest tube, and no air leak from the lateral right-sided chest tube LUNGS: Equal air entry with no crackles, wheeze, rhonchi or dullness. CVS: Irregular rate and rhythm, normal S1 and S2, no gallops, no murmurs, no rubs ABDOMEN: Soft, nontender. No hepatosplenomegaly, normal bowel sounds, no guarding or rigidity. PEG tube in place with tube feedings infusing with vital HP at a rate of 10 with a goal of 10 EXTREMITIES: No clubbing, mild generalized edema, no cyanosis, 2+ pulses and upper and lower extremities. MUSCULOSKELETAL: Muscle strength and tone normal. SPINE: No scoliosis or deformity SKIN: No rashes CENTRAL NERVOUS SYSTEM: Sedated, trached to the ventilator, does not follow commands. No focal deficits, tone is normal in all 4 extremities. - Labs CBC & Chem 7: 11/03/21 04:35 11/03/21 04:35 Labs: Abnormal Lab Results - Last 24 Hours (Table) 11/02/21 11/02/21 11/02/21 Range/Units 11:22 17:40 23:36 RBC (3.80-5.40) m/uL Hgb (11.4-16.0) gm/dL Hct (34.0-46.0) % MCHC (31.0-37.0) g/dL RDW (11.5-15.5) % ABG pCO2 (35-45) mmHg ABG pO2 (83-108) mmHg ABG HCO3 (21-25) mmol/L ABG Total CO2 (19-24) mmol/L Potassium (3.5-5.1) mmol/L Carbon Dioxide (22-30) mmol/L BUN (7-17) mg/dL Creatinine (0.52-1.04) mg/dL POC Glucose (mg/dL) 146 H 152 H 123 H (75-99) mg/dL 11/03/21 11/03/21 11/03/21 Range/Units 04:35 04:35 05:11 RBC 3.37 L (3.80-5.40) m/uL Hgb 9.3 L (11.4-16.0) gm/dL Hct 30.9 L (34.0-46.0) % MCHC 30.2 L (31.0-37.0) g/dL RDW 16.2 H (11.5-15.5) % ABG pCO2 (35-45) mmHg ABG pO2 (83-108) mmHg ABG HCO3 (21-25) mmol/L ABG Total CO2 (19-24) mmol/L Potassium 3.3 L (3.5-5.1) mmol/L Carbon Dioxide 39 H (22-30) mmol/L BUN 19 H (7-17) mg/dL Creatinine 0.30 L (0.52-1.04) mg/dL POC Glucose (mg/dL) 105 H (75-99) mg/dL 11/03/21 Range/Units 05:42 RBC (3.80-5.40) m/uL Hgb (11.4-16.0) gm/dL Hct (34.0-46.0) % MCHC (31.0-37.0) g/dL RDW (11.5-15.5) % ABG pCO2 60 H (35-45) mmHg ABG pO2 77 L (83-108) mmHg ABG HCO3 42 H* (21-25) mmol/L ABG Total CO2 44 H (19-24) mmol/L Potassium (3.5-5.1) mmol/L Carbon Dioxide (22-30) mmol/L BUN (7-17) mg/dL Creatinine (0.52-1.04) mg/dL POC Glucose (mg/dL) (75-99) mg/dL Assessment and Plan Plan: Assessment: #1. Acute hypoxic respiratory failure related to COVID-19 pneumonia complicated with ARDS. Patient was intubated and on 09/25/2021, status post tracheostomy and PEG tube placement on 10/14/2021. On 11/01/2021 patient remains sedated, and trach to the ventilator on assist control mode of ventilation with a rate of 26, TV was 350, FiO2 of 70%, and PEEP of 14. She has had ongoing difficulty with sedation holidays, and has remained persistently hypoxic. Today on 11/02/2021 patient blood gas shows improvement in oxygenation, FiO2 is currently down to 55% and PEEP of 14. Patient has not been tolerating sedation holidays very well, we'll attempt again today. #2. Bilateral pneumothoraces requiring bilateral chest tube placements, with subsequent removal and recurrence of right-sided pneumothorax, requiring place ment of another chest tube on the right, and subsequent fluoroscopy vent placement on 10/25/2021, and subsequent removal of the Serevent on 10/29/2021 and placement of another right-sided chest tube on 10/29/2021. Today on 11/01/2021 patient has slightly increased right apical and lateral pneumothorax, please refer to the chest x-ray report, apical pneumothorax measuring 2.3 cm and lateral pneumothorax on the right at 5 mm #3. Acute deep vein thrombosis on Eliquis #4. New-onset A. fib on 10/31/2021, currently in sinus, patient was on Cardizem drip, now on oral Cardizem, remains on Eliquis #5. Subcutaneous emphysema resolved #6. Prior history of DVT #7. Possible superinfection with bacterial pneumonia, currently on Levaquin, so far culture data is negative, awaiting final report on the sputum culture from 10/29/2021 #8. Mildly elevated liver enzymes secondary to COVID-19 #9. Nonsustained ventricular tachycardia resolved #10. History of fibromyalgia #11. Suspect underlying delirium, patient has not been tolerating sedation holidays, patient has been started on Seroquel 50 mg twice a day Plan: Today's chest x-ray, blood gases and labs reviewed Continue with current ventilator settings, FiO2 is currently down to 45%, continue weaning to keep O2 sat at or above 90% Today's chest x-ray shows stable right-sided pneumothorax We'll continue with chest tubes to wall suction We'll proceed with another sedation holiday today, if tolerates sedation holiday, obtain a set of weaning parameters We'll try the patient on Precedex and wean Diprivan and off Patient remains hypotensive especially during sedation holidays We will add losartan 12.5 mg once daily, and Norvasc 10 mg daily, continue metoprolol 50 mg twice daily, and oral Cardizem 30 mg every 8 hours Continue prednisone 60 mg daily, we'll hold on Lasix today Follow-up chest x-ray tomorrow We'll continue with nutritional support Overall prognosis is guarded Continue post monitoring in intensive care unit Follow-up labs, blood gases and chest x-ray in the morning I performed a history & physical examination of the patient and discussed their management with my nurse practitioner, Ashley Granado. I reviewed the nurse practitioner's note and agree with the documented findings and plan of care. Lung sounds are positive for dim breath sounds throughout the lung patterson. The findings and the impression was discussed with the patient. I attest to the documentation by the nurse practitioner. Time with Patient: Greater than 30
[2021-11-03 11:21] LABS: Glucose,Whole Blood 214 mg/dL (75-99)
--- NOTE | 2021-11-03 15:02 | P.PN ---
Subjective Progress Note Date: 11/03/21 This is a 61-year-old female who is in the intensive care unit for treatment of respiratory failure related to Covid pneumonia complicated by bilateral pneumothorax. We are consulted for management of atrial fibrillation. Patient is currently on Cardizem and also metoprolol and Eliquis. She is in sinus rhythm and sinus tachycardia. Patient had tracheostomy and on respirator. From [facility] standpoint we'll continue current medical therapy. She is also on her face for DVT. Rest of the management as for the intensivists. 11/02/2021: From [facility] standpoint patient remains in sinus rhythm. Tolerating medications. 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 We'll continue both metoprolol and Cardizem along with anticoagulation. 11/03/2021: This 61-year-old female is admitted to the hospital with respiratory failure related to Covid pneumonia. Patient also developed bilateral pneumothorax. We are asked to see the patient because of atrial fibrillation. Patient was treated with IV Cardizem and currently on by mouth Cardizem and also on anticoagulation therapy since been maintaining sinus rhythm. No significant improvement in the pulmonary status or mental status. We'll continue current m edical therapy. We'll follow as needed Objective - Vital Signs Vital signs: Vital Signs Temp 99.3 F 11/03/21 12:00 Pulse 115 H 11/03/21 13:00 Resp 35 H 11/03/21 13:00 BP 109/68 11/03/21 12:00 Pulse Ox 96 11/03/21 13:00 Intake & Output 11/02/21 11/03/21 11/03/21 18:59 06:59 18:59 Intake Total 563 746 562.351 Output Total 2360 555 860 Balance -1797 191 -297.649 Weight 88.4 kg 89.4 kg Intake: IV 253 276 161 0.9 Normal Saline @ 20mL/ 220 240 140 hr pressure bag 33 36 21 Intake, IV Titration 200 200 211.351 Amount Clevidipine Butyrate 25 7.467 mg In Empty Bag 1 bag @ 1 MG/HR 2 mls/hr IV .Q24H [facility] Rx#:[id number] Dexmedetomidine/0.9% NaCl 97.932 (Pmx) 400 mcg In Empty Bag 1 bag @ 0.2 MCG/KG/HR 4.47 mls/hr IV .[id number] [facility] Rx#:[id number] propofoL 1,000 mg In 200 200 105.952 Empty Bag 1 bag @ Titrate IV .Q0M [facility] Rx#: [id number] Tube Feeding 110 120 60 Other 150 130 Output: Chest Tube Drainage 20 Chest Tube Right Pleural 20 Urine 2340 555 860 Other: Voiding Method Indwelling Catheter Indwelling Catheter Indwelling Catheter ABP, PAP, CO, CI - Last Documented Arterial Blood Pressure 143/66 - Exam As per the chart. Patient is not personally examined information is gathered from therapeutic consultant notes - Labs CBC & Chem 7: 11/03/21 04:35 11/03/21 04:35 Labs: Abnormal Lab Results - Last 24 Hours (Table) 11/02/21 11/02/21 11/03/21 Range/Units 17:40 23:36 04:35 RBC 3.37 L (3.80-5.40) m/uL Hgb 9.3 L (11.4-16.0) gm/dL Hct 30.9 L (34.0-46.0) % MCHC 30.2 L (31.0-37.0) g/dL RDW 16.2 H (11.5-15.5) % ABG pCO2 (35-45) mmHg ABG pO2 (83-108) mmHg ABG HCO3 (21-25) mmol/L ABG Total CO2 (19-24) mmol/L Potassium (3.5-5.1) mmol/L Carbon Dioxide (22-30) mmol/L BUN (7-17) mg/dL Creatinine (0.52-1.04) mg/dL POC Glucose (mg/dL) 152 H 123 H (75-99) mg/dL 11/03/21 11/03/21 11/03/21 Range/Units 04:35 05:11 05:42 RBC (3.80-5.40) m/uL Hgb (11.4-16.0) gm/dL Hct (34.0-46.0) % MCHC (31.0-37.0) g/dL RDW (11.5-15.5) % ABG pCO2 60 H (35-45) mmHg ABG pO2 77 L (83-108) mmHg ABG HCO3 42 H* (21-25) mmol/L ABG Total CO2 44 H (19-24) mmol/L Potassium 3.3 L (3.5-5.1) mmol/L Carbon Dioxide 39 H (22-30) mmol/L BUN 19 H (7-17) mg/dL Creatinine 0.30 L (0.52-1.04) mg/dL POC Glucose (mg/dL) 105 H (75-99) mg/dL 11/03/21 Range/Units 11:20 RBC (3.80-5.40) m/uL Hgb (11.4-16.0) gm/dL Hct (34.0-46.0) % MCHC (31.0-37.0) g/dL RDW (11.5-15.5) % ABG pCO2 (35-45) mmHg ABG pO2 (83-108) mmHg ABG HCO3 (21-25) mmol/L ABG Total CO2 (19-24) mmol/L Potassium (3.5-5.1) mmol/L Carbon Dioxide (22-30) mmol/L BUN (7-17) mg/dL Creatinine (0.52-1.04) mg/dL POC Glucose (mg/dL) 214 H (75-99) mg/dL Assessment and Plan (1) Transient atrial fibrillation Current Visit: Yes Status: Acute Code(s): I48.91 - UNSPECIFIED ATRIAL FIBRILLATION SNOMED Code(s): 74911885 (2) DVT (deep vein thrombosis) in Current Visit: Yes Status: Acute Code(s): O22.30 - DEEP PHLEBOTHROMBOSIS IN , UNSPECIFIED TRIMESTER SNOMED Code(s): 66584224 (3) Pneumonia due to COVID-19 virus Current Visit: Yes Status: Acute Code(s): U07.1 - COVID-19; J12.82 - PNEUMONIA DUE TO CORONAVIRUS DISEASE 2019 SNOMED Code(s): 926914179080204001 Plan: Patient is maintaining sinus rhythm .on by mouth Cardizem and also anticoagulation. Continue rest of the management. We'll follow as needed
[2021-11-03] MEDS ORDERED: NOREPINEPHRIN 4 MG-0.9% NS PMX 4 MG/250 ML ML IV ONE (16:03)
[2021-11-03] MEDS ORDERED: ATROPINE SULFATE 0.1 MG/ML 10ML SYRINGE ONE (16:11)
[2021-11-03] MEDS: NOREPINEPHRINE 4 MG in SODIUM CHLORIDE 0.9% 250 ML IV SCH (16:39)
[2021-11-03] MEDS: HYDROmorphone 1 MG/ML 1 ML SYRINGE IVP PRN ×2 (18:32→23:27)
[2021-11-03 18:55] LABS: Glucose,Whole Blood 131 mg/dL (75-99)
--- NOTE | 2021-11-03 21:49 | P.PN ---
Subjective Progress Note Date: 11/03/21 This is a 61-year-old female who was recently admitted with acute COVID-19 pneumonia with acute COVID-19 bilateral interstitial pneumonia and also with transaminitis and being closely monitored. Patient remains in the ICU and currently intubated and sedated with an FiO2 of 70% and PEEP is 18. 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 Patient did have a venous Doppler study done recently which showed left leg DVT and patient is maintained on Eliquis will continue. Patient also continues on empiric antibiotics and awaiting for sputum culture finalized. Patient was started on IV cefepime and will continue. Patient is also continued on oral dexamethasone along with vitamin and zinc supplements and will continue. Patient with some mild volume overload and given a dose of IV Lasix push today. 09/29/2021 Patient is seen and evaluated this morning continues to be closely monitored in the ICU and continues to be on mechanical ventilation and sedated. FiO2 was increased at 80% with a PEEP of 18 and oxygen saturations between 87-91%. Patient developing subcutaneous emphysema in the neck and chest wall area and chest x-ray today shows bilateral multifocal and confluent opacification is redemonstrated consistent with COVID-19 infection with a new small left apical pneumothorax estimated under 5% with new pneumomediastinum and recurrent overlying subcutaneous emphysema noted. Patient is white blood count mildly elevated at 16.1 and is continued on oral dexamethasone along with oral eliquis for anticoagulation. Patient continues to be on IV cefepime and blood and sputum cultures are negative thus far. 09/30/2021 Patient is seen today continues to be closely monitored in the ICU with multiple medical consultations following. Patient continues to be mechanically intubated and sedated with continued subcutaneous emphysema noted. Chest xray shows a trace left apical pneumothorax that is minimally smaller 7mm versus 1cm previously, extensive bilateral subcutaneous emphysema persists and diffuse interstitial changes and bilateral patchy opacities persist with slight improvement in aeration in the lower lungs. Per nursing staff corbin was clogged with copious amounts of white discharge and will add diflucan and corbin catheter has been changed and draining adequately. Patient continues on IV cefepime. Patient tolerating tube feeds and will continue. 10/01/2021 Patient is seen and evaluated in follow up this morning and continues to be closely monitored. Multiple medical consultations following and patient c ontinues to be on mechanical vent and sedated. Patient continues on IV Cefepime and diflucan. Patient chest xray today shows stable extensive subcutaneous emphysema, no pneumothorax, and patchy bilateral lung infiltrates remain present. INflammatory markers trending down. 10/04/2021 Patient is seen in follow-up continues to be closely monitored in the ICU. Patient remains on mechanical vent with an FI02 of 65% and peep is 18. Weaning trials being attempted with pulmonary hris coordinator following closely. Patient continues with extensive subq emphysema noted on exam. 10/05/2021 Patient Is seen and evaluated this morning with continued attempts at weaning and continues on mechanical vent and intubated with pulmonary hris coordinator following closely. Patient remains on Eliquis which will be held as surgery Dr. Nelson was consulted for possible PEG and trach tube placement for unsuccessful attempts at weaning from ventilation and prolonged hospitalization on mechanical vent. Chest x-ray today shows recurrent tiny left apical pneumothorax estimated under 5% with worsening overlying subcutaneous emphysema and again pneumomediastinum redemonstrated with multifocal confluent opacification's redemonstrated consistent with COVID-19 infection and/or arts are redemonstrated with no significant change from one day previously. Patient continues on FiO2 of 65% and PEEP was weaned down to 14 today. IV cefepime discontinued. 10/06/2021 Patient is seen in follow-up this morning per nursing staff patient had multiple runs of ectopy an irregular heart rate and rhythms with PVCs and cardiology consulted. Patient was placed on lidocaine drip and was originally on eliquis is currently on hold for possible PEG and trach placement with general surgery following. Patient had difficulty maintaining oxygen saturations and FiO2 was increased to 100% and PEEP continues at 14. Multiple medical consultations following and patient continues on oral steroids along with vitamin and zinc supplements along with fluconazole. Patient being started on IV Lasix daily and recommend close monitoring of electrolytes and kidney functions. 10/07/2021 Patient is seen in follow-up this morning continues to be monitored closely in the ICU with multiple medical consultations following. Patient is currently on mechanical vent with an FiO2 of 80% and PEEP is 16. General surgery also following for possible PEG and trach placement and will need to discuss with surgery about when this will occur. Patient remains on fluconazole. She also continues on vitamin and zinc supplements along with oral dexamethasone, clevidipine, Nimbex, IV Lasix, fentanyl and propofol and is off norepinephrine. Chest x-ray shows stable bilateral lung infiltrates. 10/08/2021 Patient is seen this morning continues to be on mechanical vent with an FiO2 of 85% and PEEP of 16. Patient continues with extensive subcutaneous emphysema and plans are for possible PEG and trach placement although on hold until possibly next week once more stable. Patient continues on Cleviprex along with fentanyl and propofol and is receiving IV Lasix daily. Patient also continues on lidocaine drip which is currently on hold and cardiology is following closely. Anticoagulant was resumed for now again until more stable to undergo PEG and trach placement. Chest x-ray today shows persistent bilateral multifocal and confluent increased opacification is with persistent overlying subcutaneous emphysema noted in pneumomediastinum is again redemonstrated. 10/09/2021 Patient evaluated today in ICU mechanical ventilation with FiO2 of 80%. Chest x-ray this morning shows similar multifocal airspace opacities and stable support lines and tubes. Similar subcutaneous emphysema scattered throughout the visualized thorax. PEG and trach plan for next week once more stable. Current meds include Cleviprex, Nimbex, fentanyl, propofol. She is receiving IV fluconazole, as well as IV Lasix. Levophed and Lidocaine gtt;s are on hold. Positive bowel sounds. Current vitals afebrile, heart rate 71, blood pressure 135/60 and oxygen saturation is 93%. Respirations 30. Labs today, white count 17, hemoglobin 11.6, sodium 139, potassium 3.8, BUN 34, creatinine 0.91, CO2 33, calcium 8.7, ALT 54, albumin 2.8 with blood sugars in the 100s. 10/10/2021 Patient evaluated today in the ICU on the mechanical VENT with fio2 of 100%. Positive bowel movement today, Stage 2 pressure ulcer on coccyx per RN, optifoam ordered. Per RN they were unable to patient as she was desaturating. They're unable to wean Fi02 currently as she does desaturate with any time of movement. She was lying more on her right side during evaluation and pulse ox was dropping into high 80s she was being repositioned by nurses. Plan is to PEG/TRACH patient tomorrow. Last family update was 4 days ago. We will call and discuss case today. Patient is afebrile, heart rate 84, respirations 30, blood pressure 141/55, 92% oxygen saturation on 100% Fi02, which was increased today up from 70 Fi02%. Labs today show WBC of 15.6, hgbl 10.7, sodium 138, potassium 3.9, chloride 100, CO2 37, glucose 117, calcium 8.2. Chest xray today shows pneumonia, ARDS. 10/11/2021 Patient is seen and evaluated in follow-up this morning continues to be closely monitored in the ICU and patient is continued on FiO2 of 90% and PEEP is 16 with multiple medical consultations following. Chest x-ray today shows new left- sided pneumothorax estimated 10-20% with overlying subcutaneous emphysema and pneumomediastinum redemonstrated with bilateral multifocal and confluent op acification's redemonstrated consistent with COVID-19 infection and/or arts and no significant change from one day previous. Patient is status post left chest tube insertion with pulmonary hris coordinator. Cardiology following and patient is off lidocaine drip and maintaining sinus rhythm. Patient also continues on vitamin and zinc supplements along with oral dexamethasone and patient continues on IV Lasix 40 mg daily. Patient also continues off norepinephrine and is currently maintained on IV cefepime along with fluconazole. General surgery following as well and plan is for peg and trach placement in the am 10/12/2021 Patient is seen in the ICU this morning continues to be closely monitored by multiple medical consultations. Patient was scheduled for PEG and trach placement with general surgery Dr. Nelson today although canceled as patient became hypotensive requiring Levophed along with acute blood loss anemia and hemoglobin dropped to 6.5 this morning requiring 1 unit of PRBC. Patient continues with left chest tube with pneumothorax and chest x-ray today shows the jahaira is difficult to clearly identify on the present exam and the ET tube may be approximately 1 cm from the jahaira and there are bilateral chest tubes present with continued diffuse interstitial opacification is and more focal bibasilar opacification is with subcutaneous emphysema persists along the upper chest with slight improvement on the left. No appreciable pneumothorax noted. Patient having worsening right pleural effusion last night and received a right- sided chest tube with pulmonary hris coordinator. FiO2 is 90% and PEEP of 16. Again overall prognosis remains extremely poor and guarded. 10/13/2021 Patient is seen in follow-up this morning in the ICU with multiple medical consultations following. Lengthy discussion was had with pulmonary hris coordinator and family members and would like to continue with full CODE STATUS and plan is in place for PEG tube and tracheostomy placement tomorrow. Anticoagulant on hold and Dr. Nelson plans for surgery tomorrow. Patient continues on oral dexamethasone along with IV cefepime, vitamin and zinc supplements. Patient also continues on Cleviprex and Nimbex. Patient also continues on fentanyl and propofol and will continue. Chest x-ray today shows stable portable chest with bilateral chest tubes without sizable pneumothorax identified and continued subcutaneous air persists with persistent interstitial changes bilaterally with airspace disease in the bilateral lung bases that are unchanged. FiO2 is 60% and PEEP of 16. 10/14/2021 Patient is seen and evaluated in the ICU being closely monitored with multiple medical consultations following. at the bedside today and had detailed discussion with overall prognosis. Plan is to proceed with PEG tube and tracheostomy placement with surgery Dr. Nelson today and anticoagulant continues to be on hold for this procedure. Patient continues on mechanical ventilation with an FiO2 of 70% and PEEP of 16. Chest x-ray today shows improving infiltrate with bibasilar residual and bilateral chest tubes remain present with no pneumothorax evident on either side and again subcutaneous emphysema is noted. 10/15/2021 Patient is seen in the ICU being closely monitored. Patient is status post PEG and trach placement yesterday. Chest x-ray today shows bilateral patchy lung infiltrates greater at the right base with diffuse increased lung markings and bilateral chest tubes remain present and subcutaneous emphysema on the right is diminished. Patient continues with an FI02 of 60 and peep is 16. To resume tube feeds per surgery. Patient continues on norepinephrine and sedation. Patient is receiving IV lasix daily. 10/16/2021 Patient is currently in the MICU and remains on ventilator. Status post tracheostomy and PEG tube placement on 10/14/2021. Patient is sedated and paralyzed. Also on Cleviprex. Chest x-ray showed no acute cardiopulmonary disease with no interval changes. Laboratory data showed WBC 16.9 hemoglobin 8.9 and platelets 278 BUN 19 and creatinine 0.5 and calcium 8.1 patient is being continued on dexamethasone 6 mg daily, Lasix 40 mg IV daily and multivitamins and anticoagulation with Eliquis. Pulmonary and general surgery is on board. 10/17/2021 Patient is in the MICU. Remains on the current ventilator via tracheostomy. Status post tracheostomy and PEG tube placement on 10/14/2021. Sedated and paralyzed and also on fentanyl drip. Currently on assist control with tidal volume of 420, FiO2 80% and PEEP of 16. Respiratory of 30. Chest x-ray showed no interval change in acute cardiopulmonary disease Laboratory data showed WBC 15.8 hemoglobin 8.2 and platelets 271 Sodium 136 potassium 3.1 chloride 100 bicarb is 32 BUN 21 creatinine 0.48 and albumin 2.3 Patient is being continued on Lasix IV, dexamethasone and anticoagulation with Eliquis. 10/18/2021 Patient is seen in follow-up and continues in the ICU with multiple medical consultations following. Patient continues on mechanical vent with an FI02 of 70% and peep is 16. Chest xray shows overall stable exam with interstitial changes and bilateral patchy infiltrates with right greater than left and greater at the bases with bilateral chest tubes noted. no appreciable pneumothorax. Patient continues on propofol and fentanyl along with cleviprex and rocuronium. Eliquis has been resumed. Potassium is 3.3 and will be replaced per protocol. Patient also continues to receive IV lasix daily. 10/19/2021 Patient is seen this morning and continues to be in the ICU with multiple medical consultations following. Patient continues with bilateral chest tubes and remains on mechanical ventilation with an FiO2 of 65% and PEEP is 16. Chest x-ray today shows Bilateral multifocal and confluent opacification greatest in the lower lungs consistent with COVID-19 infection and/or ARDS all redemon strated with no significant change from one day earlier and continued bilateral chest tubes without pneumothorax redemonstrated. 10/20/2021 Patient continues to be in the ICU under close critical monitoring with multiple medical consultations following. Patient continues with bilateral chest tubes although per nursing staff may possibly discontinued today. Chest x-ray today shows stable portable chest with no change in scattered mixed interstitial and alveolar infiltrates. Patient remains on mechanical ventilation via tracheostomy with an FiO2 of 55% and PEEP is 15. Patient continues on Cleviprex along with rocuronium and sedation. 10/21/2021 Patient continues in the MICU being closely monitored. Chest tubes were removed today and chest xray stable with interstitial changes and basilar ground glass, that is similar to previous with slight improvement. Patient continues on mechanical vent with an FI02 of 70% and peep is 14. Patient remains sedated and per nursing staff working on weaning paralytics. Patient continued on rocuronium. Patient is tolerating tube feeds and also continues on IV lasix daily with generalized edema noted throughout. 10/22/2021 Patient is currently MICU. Patient was taken off paralytic and chest tubes yesterday. Continued on pressure support with PEEP of 13. 88 this morning patient again desaturated. Patient became hypotensive and patient was started on norepinephrine. Chest x-ray showed large pneumothorax on the right. Right chest tube was reinserted. Patient is on pressure control. Remains sedated and mechanically ventilated. Laboratory data showed WBC 13.7 hemoglobin 7.7 and platelets 314 Sodium 140 potassium 3.0 chloride 102 bicarb is 37 BUN 19 and creatinine 0.44 and calcium 8.1 Patient is being continued dexamethasone multivitamins and anticoagulation with Eliquis. Patient is also on IV Lasix. Potassium will be replaced. 10/23/2021 Patient is currently MICU. Patient is on mechanical ventilator via trach tube. Patient developed right-sided tension pneumothorax. Again patient had issues with pneumothorax around 10 PM yesterday. Chest tube has to be replaced. Patient is also requiring pressor support. Off pressors this morning. On pressure support. PEEP of 13 and FiO2 100%. Laboratory data showed WBC 13.7 hemoglobin 7.7 and platelets 314 Sodium 140 potassium 3.0 chloride 102 bicarb is 37 BUN 19 and creatinine 0.44 and calcium 8.1 cultures have been negative. Patient is being current on dexamethasone, Eliquis and also IV Lasix 40 mg daily. 10/24/2021 Patient is currently in the MICU. Currently on mechanical ventilator via tracheal tube. Continue propofol and fentanyl. Remains pressure support with PEEP of 13 FiO2 reduced to 70%. Chest x-ray showed bilateral multifocal and confluent opacities consistent with COVID-19 infection and ARDS are redemonstrated and stable. Right-sided chest tube with small apical pneumothorax estimated 10 to 15% improved from 1 day earlier. Pneumo mediastinum noted. Laboratory data showed WBC 14.2 hemoglobin 7.1 and platelets 317 Sodium 140 potassium 3.2 chloride 104 bicarb is 38 BUN 20 and creatinine 0.46 and calcium 7.8. Patient is being continued on dexamethasone, Eliquis and also on IV Lasix. Currently on multivitamins. 10/25/2021 Patient is seen this morning continues to be in the ICU with close monitoring. Patient continues on mechanical vent via tracheostomy and FiO2 of 65% with a PEEP of 13. Chest x-ray this morning shows right-sided chest tube in place with continued small to moderate right sided pneumothorax slightly smaller in the interval, apical component measuring 2.3 cm versus 2.8 cm previously along with interstitial opacities persist in pneumonitis versus mild pulmonary edema, status post right side thoravent place this morning with pulmonary hris coordinator showing resolution of the apical and lateral components of the pneumothorax and 5 mm basilar components remain. Patient requiring more oxygen supplementation and FiO2 being increased to 75%. Hemoglobin found to be 6.3 and awaiting to receive a unit of PRBC. Patient also continues on Nimbex along with Cleviprex, oral dexamethasone, vitamin and zinc supplements along with oral eliquis, along with fentanyl and propofol for sedation. 10/26/2021 Patient is seen in follow-up today continues on mechanical ventilation with an FiO2 of 75% which is currently titrating down to 65% per nursing staff with an FiO2 of 13. Patient continues on Cleviprex and Nimbex and attempts at weaning although not tolerating well. Patient also continues on fentanyl and propofol for sedation. Chest x-ray today shows a right-sided thoracic vent and chest to both present and overlying appropriate positions with minimal right-sided apical pneumothorax present and persistent bilateral interstitial groundglass opacities noted with no evident pleural effusion to correlate for pneumonia. Hemoglobin improved to 8.7 today after 1 unit of PRBC. Will continue to monitor closely. 10/27/2021 Patient is seen today continues to be closely monitored in the ICU on mechanical vent via tracheostomy with an FiO2 of 70% and PEEP is 13. Patient continues on IV Lasix daily along with propofol and fentanyl for sedation. Patient also continues to be on Cleviprex as blood pressure is elevated. Per nursing staff attempts at weaning some sedation although patient not tolerating well. Patient continues with chest tubes on the right and there is an air leak noted and also continues with thoravent on the right. Chest x-ray today shows enlarging right- sided pneumothorax estimated at 15% with no significant change in interstitial infiltrate seen bilaterally. 10/28/2021 Patient is seen in the ICU this morning continues on mechanical ventilation with a FI02 of 85% and peep is 13. Patient continues on propofol for sedation along with Nimbex and also patient is on norepinephrine with hypotension at times. Chest xray today shows continued diffuse interstitial infiltrates with continued right side pneumothorax slightly larger in the interval, apical component measu ring 1.9cm versus 1.5. Potassium was found to be 3.0 and being replaced. 10/29/2021 Patient is seen and evaluated today and continues to be closely monitored in the ICU. Multiple medical consultations following. Patient continues on mechanical ventilation via tracheostomy and also PEG tube with tube feedings and tolerating. FiO2 is currently 60% with a PEEP of 14. Cleviprex is currently off and patient continues on decreased doses of sedation. Patient also continues on IV Levaquin and will continue. Patient is currently off of Levophed and Nimbex. Patient was continued on 40 mg of Lasix daily which is currently being increased to twice daily and will continue to monitor closely. Patient's potassium was found to be 2.8 today and being replaced per protocol. Chest x-ray this morning showed a continued right-sided pneumothorax increasing in size currently estimated at 40% and emergent chest tube placement on the right was performed by pulmonary hris coordinator and subsequent removal of right side thoravent. Repeat chest x-ray showed a diminished right sided pneumothorax on the right and increasing diffuse infiltrates greater on the right. 10/30/21 This patient is still on the vent. Vent settings are noted. The patient continues to be unresponsive. Blood pressure is fluctuating. Dr. Alejandro is following the patient closely. Family updated. Prognosis guarded. Brad morrison. See orders for further details. 10/31/2021 This patient remains to be on the vent. The patient has significant difficulties in weaning off from the vent. The pneumothorax on the right seemed to be little improving. Patient has chest tubes in situ. Patient also developed atrial fibrillation faster [place]. The patient is mechanically intubated. Cardizem initiated. Cardiology is consulted. Dr. Alejandro is following the patient closely. The family at the bedside updated about the prognosis. Review of systems: Unable to obtain as patient is mechanically intubated and sedated 11/01/2021 She continues in the ICU on mechanical vent via tracheostomy and FiO2 is currently 70% with a PEEP of 14. Currently working on transitioning to metoprolol multiple medical consultations following. Patient continues with right-sided chest tubes and cardiology also following and patient is t ransitioned to oral Cardizem along with metoprolol. 2-D echo shows mild concentric left ventricular hypertrophy with overall LV systolic function normal with an EF of 55-60% and also noted to have some free space that may represent effusion or a pericardial fat pad. Chest x-ray today shows interval increase in size of small right-sided pneumothorax apical component 2.3 cm versus 1.8 cm previously and a lateral basilar component is now seen measuring 5 mm with 2 chest tubes continuing and also similar diffuse patchy interstitial opacification persist. 11/02/2021 Patient continues in the MICU on mechanical ventilation and FI02 is 55% with a peep of 14. Continued attempts at weaning sedatives to assess mentation and using dilaudid as needed to control sedation. Cardiology following and patient continues in sinus rhythym currently with oral cardizem and metoprolol. Patient has completed the antibiotic course of Levaquin and is being discontinued. Chest xray shows stable right upper lung pneumothorax with 2 chest tubes that will remain. Persistent patchy and confluent increase opacities redemonstrated. Patient will be given a dose of lasix today. Patient is afebrile. 11/03/2021 Patient is seen in follow-up this morning and continues to be closely monitored in the ICU with multiple medical consultations following. Per nursing staff working on weaning sedation and is currently off propofol to assess and no responses noted and patient is not following commands. FiO2 titrated down to 45% with a PEEP of 14 and currently on Precedex for hypertension. Chest xray shows stable scattered interstitial and alveolar infiltrates throughout both lung patterson that persist and are unchanged. Potassium is low at 3.3 and will replace per protocol and recommend repeat labs. Review of systems: Unable to obtain as patient is mechanically intubated and sedated Active Medications Amlodipine Besylate (Amlodipine 10 Mg Tab) 10 mg PO DAILY [facility] Last Admin: 11/03/21 08:23 Dose: 10 mg Documented by: Apixaban (Apixaban 5 Mg Tab) 5 mg PO BID [facility]; Protocol Last Admin: 11/03/21 08:23 Dose: 5 mg Documented by: Artificial Tears (Artificial Tears-Hypromellose Drops 15 Ml Btl) 2 drops BOTH EYES QID [facility] Last Admin: 11/03/21 12:36 Dose: 2 drops Documented by: Ascorbic Acid (Ascorbic Acid 500 Mg Tab) 500 mg PO BID [facility] Last Admin: 11/03/21 08:23 Dose: 500 mg Documented by: Diltiazem HCl (Diltiazem Oral 30 Mg Tab) 30 mg PO QID [facility] Last Admin: 11/03/21 12:36 Dose: 30 mg Documented by: Docusate Sodium (Docusate Oral Soln 100 Mg/10 Ml Cup) 100 mg PO DAILY PRN PRN Reason: Constipation Last Admin: 10/18/21 15:53 Dose: 100 mg Documented by: Ergocalciferol (Ergocalciferol 1,250 Mcg (50,000 Iu) Capsule) 1,250 mcg PO MORRIS [facility] Last Admin: 10/31/21 08:21 Dose: 1,250 mcg Documented by: Hydromorphone HCl (Hydromorphone 1 Mg/Ml 1 Ml Syringe) 1 mg IVP Q3H PRN PRN Reason: Pain Last Admin: 11/02/21 17:03 Dose: 1 mg Documented by: Sodium Chloride (Saline 0.9%) 1,000 mls @ 20 mls/hr IV .Q24H [facility] Last Admin: 11/03/21 08:14 Dose: 20 mls/hr Documented by: Clevidipine 25 mg/ IV Solution 50 mls @ 2 mls/hr IV .Q24H [facility]; Protocol Last Titration: 11/03/21 12:00 Dose: 2 mg/hr, 4 mls/hr Documented by: Propofol 1,000 mg/ IV Solution 100 mls @ 0 mls/hr IV .Q0M [facility]; Protocol Last Titration: 11/03/21 09:40 Dose: 0 mcg/kg/min, 0 mls/hr Documented by: Dexmedetomidine HCl 400 mcg/ (IV Solution) 100 mls @ 4.47 mls/hr IV .[id number] [facility]; Protocol Last Titration: 11/03/21 12:30 Dose: 1.1 mcg/kg/hr, 24.585 mls/hr Documented by: Insulin Aspart (Insulin Aspart (Novolog) 100 Unit/Ml Vial) 0 unit SQ Q6HR [facility]; Protocol Last Admin: 11/03/21 11:27 Dose: 3 unit Documented by: Losartan Potassium (Losartan 25 Mg Tab) 12.5 mg PO DAILY [facility] Last Admin: 11/03/21 08:42 Dose: 12.5 mg Documented by: Metoprolol Tartrate (Metoprolol Tartrate 50 Mg Tab) 50 mg PO BID [facility] Last Admin: 11/03/21 08:24 Dose: 50 mg Documented by: Miscellaneous Information (Pneumonia Protocol Utilized 1 Each [facility] [place]) 1 each PO ONCE PRN PRN Reason: Per Protocol Miscellaneous Information (Potassium Replacement Protocol 1 Each [facility] [place]) 1 each MISCELLANE DAILY PRN; Protocol PRN Reason: Per Protocol Naloxone HCl (Naloxone 0.4 Mg/Ml 1 Ml Vial) 0.2 mg IV Q2M PRN PRN Reason: Opioid Reversal Nystatin (Nystatin 100,000 Unit/Ml Susp 500,000 Unit/5 Ml Cup) 500,000 unit PO QID [facility] Last Admin: 11/03/21 12:34 Dose: 500,000 unit Documented by: Pantoprazole Sodium (Pantoprazole 40 Mg/10 Ml Vial) 40 mg IV DAILY [facility] Last Admin: 11/03/21 08:27 Dose: 40 mg Documented by: Potassium Bicarbonate (Potassium Bicarbonate/Cit Ac 20 Meq Tablet.Eff) 20 meq PO TID [facility] Last Admin: 11/03/21 08:22 Dose: 20 meq Documented by: Prednisone (Prednisone 20 Mg Tab) 60 mg PO DAILY [facility] Last Admin: 11/03/21 08:22 Dose: 60 mg Documented by: Quetiapine Fumarate (Quetiapine 50 Mg Tab) 50 mg PO BID [facility] Last Admin: 11/03/21 08:23 Dose: 50 mg Documented by: Zinc Sulfate (Zinc Sulfate 220 Mg Cap) 220 mg PO DAILY [facility] Last Admin: 11/03/21 08:23 Dose: 220 mg Documented by: Physical Exam: Gen: This is a 61-year-old female currently sedated and intubated. mechanical ventilation Fio2 45% with a PEEP of 14. HEENT: Head is atraumatic, normocephalic. Pupils equal, round. Sclerae is anicteric. tracheostomy noted NECK: Supple. No JVD. No lymphadenopathy. No thyromegaly. tracheostomy noted LUNGS: Diminished breath sounds bilaterally with coarse rhonchi and crackles noted. No intercostal retractions. Right side chest tubes noted, tachypneic HEART: S1, S2 are muffled ABDOMEN: Soft. Obese. Bowel sounds are present. No masses. No tenderness. peg tube noted. EXTREMITIES: No pedal edema. No calf tenderness. generalized edema noted NEUROLOGICAL: Patient is currently intubated and sedated Assessment: Acute COVID-19 infection with acute COVID-19 bilateral interstitial pneumonia with hypoxic hypercarbic respiratory failure on mechanical vent status post trach and peg tube placement on 10/14/2021 Worsening right side pneumothorax status post chest tube placement and thoravent removal on 10/29/2021 bilateral pneumothoraces with chest tube placement and status post removal of chest tubes 2.3.2021 Atrial fibrillation, new onset, currently rate controlled on metoprolol and cardizem Non-sustained ventricular tachycardia, currently sinus Acute left leg deep vein thrombosis Primary hypercoagulable state and factor V deficiency Obesity with a body mass index of 36.0 DVT prophylaxis: on Eliquis Full code Plan: Recommend to continue with current medications and follow along closely with multiple medical consultations. Prognosis remains extremely guarded with multiple complex medical issues noted. Patient continues on mechanical ventilation via tracheostomy and FiO2 45% with PEEP of 14. Recommend to continue with current medications. Patient is continued on oral Cardizem and metoprolol and maintaining sinus rhythm. Patient is currently off propofol and requiring Precidex. Chest x-ray as mentioned previously and continued with right-sided chest tubes. Conitnued with daily attempts to wean some sedation to assess mentation. Recommend repeat labs and chest x-ray in a.m. and continued close monitoring. Again due to multiple complex medical issues overall prognosis is extremely poor and quite guarded. The impression and plan of care has been dictated by Carla Schmidt, nurse practitioner as directed. MD Nicole I have performed a history and examination and MDM of this patient, discussed the same with the dictator, and agree with the dictator's assessment and plan as written ,documented as a scribe. Based on total visit time, I have performed more than 50% of the visit. Any additional findings or plans will be noted. Objective - Vital Signs Vital signs: Vital Signs Temp 98.6 F 11/03/21 00:00 Pulse 92 11/03/21 07:00 Resp 26 H 11/03/21 07:00 BP 109/68 11/03/21 04:00 Pulse Ox 93 L 11/03/21 07:00 Intake & Output 11/02/21 11/03/21 11/03/21 18:59 06:59 18:59 Intake Total 563 746 34.667 Output Total 2360 555 90 Balance -1797 191 -55.333 Weight 88.4 kg 89.4 kg Intake: IV 253 276 23 0.9 Normal Saline @ 20mL/ 220 240 20 hr pressure bag 33 36 3 Intake, IV Titration 200 200 1.667 Amount Clevidipine Butyrate 25 1.667 mg In Empty Bag 1 bag @ 1 MG/HR 2 mls/hr IV .Q24H [facility] Rx#:[id number] propofoL 1,000 mg In 200 200 Empty Bag 1 bag @ Titrate IV .Q0M [facility] Rx#: [id number] Tube Feeding 110 120 10 Other 150 Output: Chest Tube Drainage 20 Chest Tube Right Pleural 20 Urine 2340 555 90 Other: Voiding Method Indwelling Catheter Indwelling Catheter ABP, PAP, CO, CI - Last Documented Arterial Blood Pressure 144/59 - Labs CBC & Chem 7: 11/03/21 04:35 11/03/21 04:35 Labs: Abnormal Lab Results - Last 24 Hours (Table) 11/02/21 11/02/21 11/02/21 Range/Units 11:22 17:40 23:36 RBC (3.80-5.40) m/uL Hgb (11.4-16.0) gm/dL Hct (34.0-46.0) % MCHC (31.0-37.0) g/dL RDW (11.5-15.5) % ABG pCO2 (35-45) mmHg ABG pO2 (83-108) mmHg ABG HCO3 (21-25) mmol/L ABG Total CO2 (19-24) mmol/L Potassium (3.5-5.1) mmol/L Carbon Dioxide (22-30) mmol/L BUN (7-17) mg/dL Creatinine (0.52-1.04) mg/dL POC Glucose (mg/dL) 146 H 152 H 123 H (75-99) mg/dL 11/03/21 11/03/21 11/03/21 Range/Units 04:35 04:35 05:11 RBC 3.37 L (3.80-5.40) m/uL Hgb 9.3 L (11.4-16.0) gm/dL Hct 30.9 L (34.0-46.0) % MCHC 30.2 L (31.0-37.0) g/dL RDW 16.2 H (11.5-15.5) % ABG pCO2 (35-45) mmHg ABG pO2 (83-108) mmHg ABG HCO3 (21-25) mmol/L ABG Total CO2 (19-24) mmol/L Potassium 3.3 L (3.5-5.1) mmol/L Carbon Dioxide 39 H (22-30) mmol/L BUN 19 H (7-17) mg/dL Creatinine 0.30 L (0.52-1.04) mg/dL POC Glucose (mg/dL) 105 H (75-99) mg/dL 11/03/21 Range/Units 05:42 RBC (3.80-5.40) m/uL Hgb (11.4-16.0) gm/dL Hct (34.0-46.0) % MCHC (31.0-37.0) g/dL RDW (11.5-15.5) % ABG pCO2 60 H (35-45) mmHg ABG pO2 77 L (83-108) mmHg ABG HCO3 42 H* (21-25) mmol/L ABG Total CO2 44 H (19-24) mmol/L Potassium (3.5-5.1) mmol/L Carbon Dioxide (22-30) mmol/L BUN (7-17) mg/dL Creatinine (0.52-1.04) mg/dL POC Glucose (mg/dL) (75-99) mg/dL
[2021-11-03 23:33] LABS: Glucose,Whole Blood 109 mg/dL (75-99)
[2021-11-04] MEDS: SODIUM CHLORIDE 0.9% 1,000 ML IV SCH (00:13)
[2021-11-04] MEDS: HYDROmorphone 1 MG/ML 1 ML SYRINGE IVP PRN ×5 (03:06→23:10)
[2021-11-04 04:46] LABS: Anisocytosis Slight; HCT 29.3 % (34.0-46.0); HGB 9.4 gm/dL (11.4-16.0); Hypochromasia Marked; MCH 29.5 pg (25.0-35.0); MCV 92.2 fL (80.0-100.0); Mean Platelet Volume 8.3; Platelet Count 397 k/uL (150-450); RBC 3.18 m/uL (3.80-5.40); RDW 16.1 % (11.5-15.5); WBC 10.5 k/uL (3.8-10.6)
[2021-11-04 05:10] LABS: ABG Base Excess 13.6 mmol/L; ABG HCO3 37 mmol/L (21-25); ABG PCO2 52 mmHg (35-45); ABG PH 7.47 (7.35-7.45); ABG PO2 73 mmHg (83-108); ABG TCO2 39 mmol/L (19-24); Allen Test Performed? Yes
[2021-11-04] MEDS: INSULIN ASPART (NovoLOG) 100 UNIT/ML VIAL SQ SCH ×4 (05:23→23:39)
[2021-11-04 05:24] LABS: Glucose,Whole Blood 102 mg/dL (75-99)
[2021-11-04 05:35] LABS: African American GFR (CKD) >90 (>60 ml/min/1.73 sqM); Anion Gap 3 mmol/L; Blood Urea Nitrogen 21 mg/dL (7-17); Calcium 8.8 mg/dL (8.4-10.2); Carbon Dioxide 36 mmol/L (22-30); Chloride 101 mmol/L (98-107); Glucose 93 mg/dL (74-99); Non-African American GFR(CKD) >90 (>60 ml/min/1.73 sqM); Potassium 3.6 mmol/L (3.5-5.1); Sodium 140 mmol/L (137-145)
[2021-11-04] MEDS: NOREPINEPHRINE 4 MG in SODIUM CHLORIDE 0.9% 250 ML IV SCH ×2 (06:54→23:16)
--- NOTE | 2021-11-04 07:32 | XR ---
EXAMINATION TYPE: XR chest 1V portable DATE OF EXAM: 11/04/2021 Comparison: 11/03/2021 Clinical History: 61-year-old female SOB Findings: Tracheostomy cannula. Before meals of hardware partially visualized. Right PICC tip cavoatrial juncti on. Heart mildly enlarged. Diffuse groundglass and interstitial opacities bilaterally without signifi cant change. 2 right-sided chest tubes remain in place. Small to moderate-sized right pneumothorax has increased i n size measuring 3.7 cm at the apex versus 2.5 cm, previously. 6 mm laterally versus 4.6 mm previousl y. Impression: 1. 2 right-sided chest tubes remain in place. Small to moderate size right pneumothorax shows slight interval increase in size (3.7 cm at the apex versus 2.5 cm, previously). 2. Mild cardiomegaly and diffuse groundglass/interstitial changes are similar.
[2021-11-04] MEDS: ARTIFICIAL TEARS-HYPROMELLOSE DROPS 15 ML BTL BOTH EYES SCH ×4 (08:12→20:06)
[2021-11-04] MEDS: POTASSIUM BICARBONATE/CIT AC 20 MEQ TABLET.EFF PO SCH ×3 (08:13→20:05)
[2021-11-04] MEDS: predniSONE 20 MG TAB PO SCH (08:13)
[2021-11-04] MEDS: QUEtiapine 50 MG TAB PO SCH ×2 (08:13→20:05)
[2021-11-04] MEDS: amLODIPine 10 MG TAB PO SCH (08:14)
[2021-11-04] MEDS: ZINC SULFATE 220 MG CAP PO SCH (08:14)
[2021-11-04] MEDS: APIXABAN 5 MG TAB PO SCH ×2 (08:14→20:05)
[2021-11-04] MEDS: NYSTATIN 100,000 UNIT/ML SUSP 500,000 UNIT/5 ML CUP PO SCH ×4 (08:15→20:06)
[2021-11-04] MEDS: ASCORBIC ACID 500 MG TAB PO SCH ×2 (08:15→20:05)
[2021-11-04] MEDS: METOPROLOL TARTRATE 50 MG TAB PO SCH ×2 (08:15→20:05)
[2021-11-04] MEDS: LOSARTAN 25 MG TAB PO SCH (08:17)
[2021-11-04] MEDS: DILTIAZEM ORAL 30 MG TAB PO SCH ×4 (08:17→20:05)
[2021-11-04] MEDS: PANTOPRAZOLE 40 MG/10 ML VIAL IV SCH (08:18)
[2021-11-04] MEDS ORDERED: SODIUM CHLORIDE 0.9% 500 ML 500 ML IV ONE (08:45)
--- NOTE | 2021-11-04 09:29 | P.PN ---
Subjective Progress Note Date: 11/04/21 Principal diagnosis: Acute hypoxic respiratory failure secondary to COVID-19 pneumonia On 11/01/2021 patient seen in follow-up in the intensive care unit, she remains trached to the ventilator, and sedated, she is currently on assist control with a rate of 26, tidal arm is 350, FiO2 of 70% and PEEP of 14, this morning's blood gas shows pO2 of 72, pCO2 of 63 and pH of 7.41. Today's chest x-ray showing interval increase in the size of small right-sided pneumothorax with apical component of 2.3 cm versus 1.8 cm previously. Bilateral basilar component is now seen measuring 5 mm, there are [address] chest [address] remaining in place. In and there is similar diffuse patchy interstitial opacities. 2 right-sided chest tubes are to wall suction, with no evidence of leak. Patient is sedated with Diprivan and at 75 mics per kilo per minute, fat no added 2.5 mics per kilo per minute, 0.9 normal saline at 10, Cleviprex is up 4 mg per hour. She is on the tube feedings with vital HP at 10 with a goal of 10, is standard water flushes with 30 mL of water every 4 hours. Patient has not been tolerating sedation holidays very well for the past several days and become quite agitated h ypertensive, and starts having unstable vital signs. The patient has not had any weaning trials thus far. Today's labs have been reviewed, white blood cell, 7.8, hemoglobin is 9.3, platelet count is 338, sodium is 139, potassium 3.6, chloride is 99, CO2 is 39, BUN is 15, creatinine 0.39. Patient remains on Levaquin, she has had blood and sputum cultures that have shown no growth thus far, sputum Gram stain from 10/30/2021 showed many PMNs, rare epithelial cells, many gram-positive bacilli and few gram-negative bacilli and few gram-positive cocci. She had some low-grade fevers overnight. Patient has been tachycardic in the sinus mechanism with a rate of 125 BPM. She is on oral Cardizem at 30 mg 4 times a day for recent history of runs of A. fib with RVR. She is on Eliquis for anticoagulation. As far as COVID-19 treatment she is on Decadron 4 mg daily she is on multivitamins. Her last set of inflammatory markers back on 10/01/2021 showed LDH within normal limits at 531, and CRP of 2.1. Most recent pro- calcitonin from 10/29/2021 was 0.23. Patient has not required any vasopressor support, she is actually been hypertensive and for that reason we will add metoprolol 50 mg twice daily for improved blood pressure control. On 11/02/2021 patient seen in follow-up in the intensive care unit, she remains trached to the ventilator, sedated, currently on assist-control with a rate of 26, tidal M3 50, FiO2 of 55% and PEEP of 14. This morning's blood gas shows pO2 of 150, pCO2 of 67, and pH of 7.37, this was done on FiO2 of 70%, and FiO2 has been decreased down to 55%. Today's chest x-ray shows stable right upper lobe pneumothorax despite [address], persistent multifocal confluent increased opacity consistent with COVID-19 infection, no significant change from one day earlier. Patient is currently sedated with Diprivan at 65 mics per kilo per minute, fentanyl infusion at 2.5 mics per kilo per minute, 0.9 normal saline at a rate of 20 ML per hour, patient is on tube feedings at 10 mL per hour, with a goal of 10. Patient has [address], the medial chest tube has no air leak, remains to wall suction, and more lateral right-sided chest tube has intermittent air leak and remains to wall suction. Patient has been off the Cleviprex since yesterday morning at 10:45 in the morning, patient was placed on metoprolol 50 mg twice daily, and she remains on oral Cardizem 30 mg 4 times daily and Eliquis for new onset atrial fibrillation . Yesterday we had dexamethasone DC'd and place the patient on prednisone 60 mg daily. In addition patient is an +1.3 L net fluid balance over the last 24 hours, and patient will be given a dose of Lasix. Her oxygenation seems to have improved on today's blood gas, and we were able to contact the FiO2 down to 55%. She's had no acute events overnight. The rest of her blood work has been reviewed her white blood cell count is 7.2, hemoglobin is 8.9, platelet count is 304, sodium is 136, potassium is 4.0, chloride is 97, CO2 is 37, B1 is 20 creatinine 0.37. Her sputum culture showed Corynebacterium species, and blood cultures have been negative. Patient has received 5 day course of Levaquin which can be discontinued at this time, her procalcitonin level was negative at 0.23. On November 03, 2021 patient seen in follow-up in intensive care unit. she remains trached to the ventilator, sedated, she is on control with a rate of 26, tidal 350, FiO2 55% and PEEP of 14. This morning's blood gas shows pO2 of 76, pCO2 of 60, and pH of 7.45. Her peak airway pressures 26, and plateau pressure of 30. Today's chest x-ray shows stable portable chest, 2 right-sided chest tubes, right-sided pneumothorax is unchanged compared to yesterday, there are scattered interstitial and alveolar infiltrates throughout both lungs unchanged. Patient is currently sedated on Diprivan at 55 mics per kilo per minute, fentanyl drip has been discontinued, patient has been getting intermittent doses of IV Dilaudid for discomfort. Patient has been hypertensive especially during periods of agitation, and sedation holidays. Yesterday patient was off sedation for 30 minutes, did not follow purposeful command. she did however become agitated, restless, and her vital signs were becoming unstable, she was very d yssynchronous with the ventilator, and she had to be placed back on sedation. Today's labs have been reviewed, her white blood cell count is 7.8, hemoglobin is 9.3, platelet count is 353, sodium is 139, potassium is 3.3, this is being replaced per protocol, in addition to scheduled doses of K-Lyte 20 in the every 3 times daily, chloride is 98, CO2 39, BUN is 19 creatinine 0.30. Patient is receiving nutrition with vital hypertension at a rate of 47 with a goal of 47 and standard water flushes. She has had no acute events overnight, she still has [address], the medial chest tube is positive for intermittent air leak, and lateral chest tube on the right side shows no air leak. Patient continues on prednisone 60 mg daily, she is on oral Cardizem, and Eliquis for anticoagulation, she remains in A. fib with a controlled rate. On 11/04/2021 patient seen in follow-up in the intensive care, she remains trached to the ventilator, she is currently not on any sedation since 4:00 y afternoon. She is on assist-control with a rate of 26, tidal on his 350, FiO2 50% and PEEP of 14, this morning blood gas shows pO2 of 73, pCO2 52 and pH of 7.47. She is currently on no drips other than 0.9 normal saline at a rate of 20 ML per hour, patient has been off all sedation since yesterday 4:00 PM. Yesterday afternoon patient had developed bradycardia, with sinus pauses and the heart rate was down to 38, patient was hypotensive, Precedex was discontinued, and patient had recovered. She has not responded to any verbal stimuli, she grimaces to painful stimuli, does not follow instructions. Today's chest x-ray shows small to moderate size right pneumothorax with slight interval increase in size, currently at 3.7 cm at the apex versus 2.5 cm previously, and cardiomegaly and diffuse groundglass interstitial changes that are similar in appearance to yesterday's chest x-ray. Patient still has 2 right-sided chest tubes in place with intermittent air leaks alternating between the 2. Both chest tubes remained to wall suction. Patient is currently in sinus mechanism, slightly tachycardic with a rate of 115 BPM, currently remains on oral Cardizem 30 mg 4 times a day, Eliquis 5 mg twice a day, Lopressor 50 mg twice a day, she remains on Norvasc 10 mg daily and losartan 12.5 mg daily. Cleviprex has been off since yesterday. Blood pressure seems to be better controlled on today's exam. Patient has been afebrile. She is tolerating tube feedings. Today's labs have been reviewed, white blood cell, 10.5, hemoglobin is 9.4, platelet count is 397, sodium is 140, potassium 3.6, chloride is 101, CO2 36, B1 is 21 creatinine 0.3. The patient's family has been receiving daily updates on patient's condition from the nursing staff, at this time they're considering etta alejo's CODE STATUS. Patient has been hospitalized for a total of 42 days, 40 days on the ventilator support. Patient has been maximizing medical treatment, currently she has not shown significant improvement, and has developed multiple complications along the way. Neurologically patient has not woken up, or followed any instructions. We will proceed with CT of the brain without contrast today. Patient's family has been updated by the nursing staff Objective - Vital Signs Vital signs: Vital Signs Temp 98.2 F 11/04/21 08:00 Pulse 107 H 11/04/21 08:00 Resp 37 H 11/04/21 08:00 BP 146/76 11/04/21 08:00 Pulse Ox 93 L 11/04/21 08:00 Intake & Output 11/03/21 11/04/21 11/04/21 18:59 06:59 18:59 Intake Total 822.010 500.741 66 Output Total 1105 595 55 Balance -282.990 -94.259 11 Weight 90.5 kg Intake: IV 276 276 46 0.9 Normal Saline @ 20mL/ 240 240 40 hr pressure bag 36 36 6 Intake, IV Titration 276.010 14.741 Amount Clevidipine Butyrate 25 7.467 mg In Empty Bag 1 bag @ 1 MG/HR 2 mls/hr IV .Q24H [facility] Rx#:[id number] Dexmedetomidine/0.9% NaCl 159.469 (Pmx) 400 mcg In Empty Bag 1 bag @ 0.2 MCG/KG/HR 4.47 mls/hr IV .[id number] [facility] Rx#:[id number] Norepinephrine 4 mg In 3.122 Sodium Chloride 0.9% 250 ml @ 0.05 MCG/KG/MIN 17. 031 mls/hr IV .[id number] [facility] Rx#:[id number] propofoL 1,000 mg In 105.952 14.741 Empty Bag 1 bag @ Titrate IV .Q0M [facility] Rx#: [id number] Tube Feeding 110 120 20 Other 160 90 Output: Urine 1105 595 55 Other: Voiding Method Indwelling Catheter Indwelling Catheter Indwelling Catheter ABP, PAP, CO, CI - Last Documented Arterial Blood Pressure 164/60 - Exam GENERAL EXAM: Comatose, withdraws to painful stimuli, trached to the ventilator, on assist control mode of ventilation with a rate of 26, tidal 350, FiO2 of 50% and PEEP of 14, 61-year-old white female, comfortable in no apparent distress. HEAD: Normocephalic/atraumatic. EYES: Normal reaction of pupils, equal size. Conjunctiva pink, sclera white. NOSE: Clear with pink turbinates. THROAT: No erythema or exudates. NECK: No masses, no JVD, no thyroid enlargement, no adenopathy. CHEST: No chest wall deformity. Symmetrical expansion. 2 right-sided chest tubes in place, there is intermittent air leak from the medial and lateral right-sided chest tubes LUNGS: Equal air entry with no crackles, wheeze, rhonchi or dullness. CVS: Irregular rate and rhythm, normal S1 and S2, no gallops, no murmurs, no rubs ABDOMEN: Soft, nontender. No hepatosplenomegaly, normal bowel sounds, no gua rding or rigidity. PEG tube in place with tube feedings infusing with vital HP at a rate of 10 with a goal of 10 EXTREMITIES: No clubbing, mild generalized edema, no cyanosis, 2+ pulses and upper and lower extremities. MUSCULOSKELETAL: Muscle strength and tone normal. SPINE: No scoliosis or deformity SKIN: No rashes CENTRAL NERVOUS SYSTEM:Comatose, withdraws to painful stimuli, trached to the ventilator, does not follow commands. No focal deficits, tone is normal in all 4 extremities. - Labs CBC & Chem 7: 11/04/21 04:30 11/04/21 04:30 Labs: Abnormal Lab Results - Last 24 Hours (Table) 11/03/21 11/03/21 11/03/21 Range/Units 11:20 18:52 23:32 RBC (3.80-5.40) m/uL Hgb (11.4-16.0) gm/dL Hct (34.0-46.0) % RDW (11.5-15.5) % ABG pH (7.35-7.45) ABG pCO2 (35-45) mmHg ABG pO2 (83-108) mmHg ABG HCO3 (21-25) mmol/L ABG Total CO2 (19-24) mmol/L Carbon Dioxide (22-30) mmol/L BUN (7-17) mg/dL Creatinine (0.52-1.04) mg/dL POC Glucose (mg/dL) 214 H 131 H 109 H (75-99) mg/dL 11/04/21 11/04/21 11/04/21 Range/Units 04:30 04:30 04:54 RBC 3.18 L (3.80-5.40) m/uL Hgb 9.4 L (11.4-16.0) gm/dL Hct 29.3 L (34.0-46.0) % RDW 16.1 H (11.5-15.5) % ABG pH 7.47 H (7.35-7.45) ABG pCO2 52 H (35-45) mmHg ABG pO2 73 L (83-108) mmHg ABG HCO3 37 H (21-25) mmol/L ABG Total CO2 39 H (19-24) mmol/L Carbon Dioxide 36 H (22-30) mmol/L BUN 21 H (7-17) mg/dL Creatinine 0.33 L (0.52-1.04) mg/dL POC Glucose (mg/dL) (75-99) mg/dL 11/04/21 Range/Units 05:22 RBC (3.80-5.40) m/uL Hgb (11.4-16.0) gm/dL Hct (34.0-46.0) % RDW (11.5-15.5) % ABG pH (7.35-7.45) ABG pCO2 (35-45) mmHg ABG pO2 (83-108) mmHg ABG HCO3 (21-25) mmol/L ABG Total CO2 (19-24) mmol/L Carbon Dioxide (22-30) mmol/L BUN (7-17) mg/dL Creatinine (0.52-1.04) mg/dL POC Glucose (mg/dL) 102 H (75-99) mg/dL Assessment and Plan Plan: Assessment: #1. Acute hypoxic respiratory failure related to COVID-19 pneumonia complicated with ARDS. Patient was intubated and on 09/25/2021, status post tracheostomy and PEG tube placement on 10/14/2021. On 11/01/2021 patient remains sedated, and trach to the ventilator on assist control mode of ventilation with a rate of 26, TV was 350, FiO2 of 70%, and PEEP of 14. She has had ongoing difficulty with sedation holidays, and has remained persistently hypoxic. Today on 11/02/2021 patient blood gas shows improvement in oxygenation, FiO2 is currently down to 55% and PEEP of 14. Patient has not been tolerating sedation holidays very well. On 11/04/2021 patient has been off sedation for 18 hours, remains comatose, does not follow instructions #2. Episode of bradycardia, sinus pause, possibly related to Precedex, rec overed. Precedex has been discontinued #3. Altered mental status, acute hypoxic and possibly metabolic encephalopathy, rule out possibility of CVA. Brain CT without contrast is pending today on #4. Bilateral pneumothoraces requiring bilateral chest tube placements, with subsequent removal and recurrence of right-sided pneumothorax, requiring placement of another chest tube on the right, and subsequent fluoroscopy vent placement on 10/25/2021, and subsequent removal of the Serevent on 10/29/2021 and placement of another right-sided chest tube on 10/29/2021. Today on 11/01/2021 patient has slightly increased right apical and lateral pneumothorax, please refer to the chest x-ray report, apical pneumothorax measuring 2.3 cm and lateral pneumothorax on the right at 5 mm #5. Acute deep vein thrombosis on Eliquis #6. New-onset A. fib on 10/31/2021, currently in sinus, patient was on Cardizem drip, now on oral Cardizem, remains on Eliquis #7. Subcutaneous emphysema resolved #8. Prior history of DVT #9. Possible superinfection with bacterial pneumonia, currently on Levaquin, so far culture data is negative, awaiting final report on the sputum culture from 10/29/2021 #10. Mildly elevated liver enzymes secondary to COVID-19 #11. Nonsustained ventricular tachycardia resolved #12. History of fibromyalgia #13. Suspect underlying delirium, patient has not been tolerating sedation holidays, patient has been started on Seroquel 50 mg twice a day Plan: Today's chest x-ray, blood gases and labs reviewed Continue with current ventilator settings, FiO2 is currently down to 50%, Today's chest x-ray shows slightly increased right-sided apical and lateral pne umothorax Chest tubes remain in place, continue to wall suction Patient had episode of bradycardia yesterday, she has recovered, Currently off sedation for close to 18 hours Neurologically patient is comatose, only withdrawing to pain Proceed with CT brain without contrast Continue current dose prednisone, hold Lasix We'll give the patient small IV fluid bolus 0.9 normal saline 500 mL and increas e IV fluids to 50 ML per hour Continue nutritional support Patient's family has been updated by the nursing staff on patient's progress At this time they have decided to change CODE STATUS to DO NOT RESUSCITATE They would like to continue with supportive treatment Overall prognosis is poor and guarded Continue close monitoring in intensive care unit Follow-up labs, blood gases and chest x-ray in the morning I performed a history & physical examination of the patient and discussed their management with my nurse practitioner, Ashley Granado. I reviewed the nurse practitioner's note and agree with the documented findings and plan of care. Lung sounds are positive for dim breath sounds throughout the lung patterson. The findings and the impression was discussed with the patient. I attest to the documentation by the nurse practitioner. Time with Patient: Greater than 30
--- NOTE | 2021-11-04 10:34 | CT ---
EXAMINATION TYPE: CT brain wo con DATE OF EXAM: 11/04/2021 COMPARISON: CT dated 04/23/2010 HISTORY: Altered mental status, COVID encephalopathy CT DLP: 1070.4 mGycm Automated exposure control for dose reduction was used. TECHNIQUE: Multiplanar CT scan of the brain is performed without IV contrast administration. FINDINGS: Unremarkable morphology of the cerebral hemispheres, cerebellum and brainstem. No acute intracranial hemorrhage. No gross acute cortical infarct. No midline shift, herniation or ventriculectomy. Unremar kable chery-white matter differentiation, basal cisterns, sella and CP angles. No gross space-occupyin g lesion, vasogenic edema or mass effect. Unremarkable orbits. Mucosal thickening and debris within the sphenoid sinus. Complete opacification of the mastoid air cells and middle ear cavities suggestive of bilateral otomastoiditis which could b e acute or chronic, please correlate clinically. Unremarkable calvarial bones. IMPRESSION: 1. No acute intracranial abnormality or gross space-occupying lesion by this nonenhanced CT scan. 2. Complete opacification of the mastoid air cells and middle ear cavities suggestive of bilateral ot omastoiditis which could be acute or chronic, please correlate clinically.
[2021-11-04 11:07] LABS: Glucose,Whole Blood 181 mg/dL (75-99)
[2021-11-04 11:51] LABS: Glucose,Whole Blood 184 mg/dL (75-99)
[2021-11-04 17:36] LABS: Glucose,Whole Blood 165 mg/dL (75-99)
[2021-11-04 23:16] LABS: Glucose,Whole Blood 112 mg/dL (75-99)
[2021-11-05] MEDS: HYDROmorphone 1 MG/ML 1 ML SYRINGE IVP PRN ×6 (01:56→20:31)
--- NOTE | 2021-11-05 02:04 | P.PN ---
Subjective Progress Note Date: 11/04/21 This is a 61-year-old female who was recently admitted with acute COVID-19 pneumonia with acute COVID-19 bilateral interstitial pneumonia and also with transaminitis and being closely monitored. Patient remains in the ICU and currently intubated and sedated with an FiO2 of 70% and PEEP is 18. 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 Patient did have a venous Doppler study done recently which showed left leg DVT and patient is maintained on Eliquis will continue. Patient also continues on empiric antibiotics and awaiting for sputum culture finalized. Patient was started on IV cefepime and will continue. Patient is also continued on oral dexamethasone along with vitamin and zinc supplements and will continue. Patient with some mild volume overload and given a dose of IV Lasix push today. 09/29/2021 Patient is seen and evaluated this morning continues to be closely monitored in the ICU and continues to be on mechanical ventilation and sedated. FiO2 was increased at 80% with a PEEP of 18 and oxygen saturations between 87-91%. Patient developing subcutaneous emphysema in the neck and chest wall area and chest x-ray today shows bilateral multifocal and confluent opacification is redemonstrated consistent with COVID-19 infection with a new small left apical pneumothorax estimated under 5% with new pneumomediastinum and recurrent overlying subcutaneous emphysema noted. Patient is white blood count mildly elevated at 16.1 and is continued on oral dexamethasone along with oral eliquis for anticoagulation. Patient continues to be on IV cefepime and blood and sputum cultures are negative thus far. 09/30/2021 Patient is seen today continues to be closely monitored in the ICU with multiple medical consultations following. Patient continues to be mechanically intubated and sedated with continued subcutaneous emphysema noted. Chest xray shows a trace left apical pneumothorax that is minimally smaller 7mm versus 1cm previously, extensive bilateral subcutaneous emphysema persists and diffuse interstitial changes and bilateral patchy opacities persist with slight improvement in aeration in the lower lungs. Per nursing staff corbin was clogged with copious amounts of white discharge and will add diflucan and corbin catheter has been changed and draining adequately. Patient continues on IV cefepime. Patient tolerating tube feeds and will continue. 10/01/2021 Patient is seen and evaluated in follow up this morning and continues to be closely monitored. Multiple medical consultations following and patient c ontinues to be on mechanical vent and sedated. Patient continues on IV Cefepime and diflucan. Patient chest xray today shows stable extensive subcutaneous emphysema, no pneumothorax, and patchy bilateral lung infiltrates remain present. INflammatory markers trending down. 10/04/2021 Patient is seen in follow-up continues to be closely monitored in the ICU. Patient remains on mechanical vent with an FI02 of 65% and peep is 18. Weaning trials being attempted with pulmonary furnace builder following closely. Patient continues with extensive subq emphysema noted on exam. 10/05/2021 Patient Is seen and evaluated this morning with continued attempts at weaning and continues on mechanical vent and intubated with pulmonary furnace builder following closely. Patient remains on Eliquis which will be held as surgery Dr. Nelson was consulted for possible PEG and trach tube placement for unsuccessful attempts at weaning from ventilation and prolonged hospitalization on mechanical vent. Chest x-ray today shows recurrent tiny left apical pneumothorax estimated under 5% with worsening overlying subcutaneous emphysema and again pneumomediastinum redemonstrated with multifocal confluent opacification's redemonstrated consistent with COVID-19 infection and/or arts are redemonstrated with no significant change from one day previously. Patient continues on FiO2 of 65% and PEEP was weaned down to 14 today. IV cefepime discontinued. 10/06/2021 Patient is seen in follow-up this morning per nursing staff patient had multiple runs of ectopy an irregular heart rate and rhythms with PVCs and cardiology consulted. Patient was placed on lidocaine drip and was originally on eliquis is currently on hold for possible PEG and trach placement with general surgery following. Patient had difficulty maintaining oxygen saturations and FiO2 was increased to 100% and PEEP continues at 14. Multiple medical consultations following and patient continues on oral steroids along with vitamin and zinc supplements along with fluconazole. Patient being started on IV Lasix daily and recommend close monitoring of electrolytes and kidney functions. 10/07/2021 Patient is seen in follow-up this morning continues to be monitored closely in the ICU with multiple medical consultations following. Patient is currently on mechanical vent with an FiO2 of 80% and PEEP is 16. General surgery also following for possible PEG and trach placement and will need to discuss with surgery about when this will occur. Patient remains on fluconazole. She also continues on vitamin and zinc supplements along with oral dexamethasone, clevidipine, Nimbex, IV Lasix, fentanyl and propofol and is off norepinephrine. Chest x-ray shows stable bilateral lung infiltrates. 10/08/2021 Patient is seen this morning continues to be on mechanical vent with an FiO2 of 85% and PEEP of 16. Patient continues with extensive subcutaneous emphysema and plans are for possible PEG and trach placement although on hold until possibly next week once more stable. Patient continues on Cleviprex along with fentanyl and propofol and is receiving IV Lasix daily. Patient also continues on lidocaine drip which is currently on hold and cardiology is following closely. Anticoagulant was resumed for now again until more stable to undergo PEG and trach placement. Chest x-ray today shows persistent bilateral multifocal and confluent increased opacification is with persistent overlying subcutaneous emphysema noted in pneumomediastinum is again redemonstrated. 10/09/2021 Patient evaluated today in ICU mechanical ventilation with FiO2 of 80%. Chest x-ray this morning shows similar multifocal airspace opacities and stable support lines and tubes. Similar subcutaneous emphysema scattered throughout the visualized thorax. PEG and trach plan for next week once more stable. Current meds include Cleviprex, Nimbex, fentanyl, propofol. She is receiving IV fluconazole, as well as IV Lasix. Levophed and Lidocaine gtt;s are on hold. Positive bowel sounds. Current vitals afebrile, heart rate 71, blood pressure 135/60 and oxygen saturation is 93%. Respirations 30. Labs today, white count 17, hemoglobin 11.6, sodium 139, potassium 3.8, BUN 34, creatinine 0.91, CO2 33, calcium 8.7, ALT 54, albumin 2.8 with blood sugars in the 100s. 10/10/2021 Patient evaluated today in the ICU on the mechanical VENT with fio2 of 100%. Positive bowel movement today, Stage 2 pressure ulcer on coccyx per RN, optifoam ordered. Per RN they were unable to patient as she was desaturating. They're unable to wean Fi02 currently as she does desaturate with any time of movement. She was lying more on her right side during evaluation and pulse ox was dropping into high 80s she was being repositioned by nurses. Plan is to PEG/TRACH patient tomorrow. Last family update was 4 days ago. We will call and discuss case today. Patient is afebrile, heart rate 84, respirations 30, blood pressure 141/55, 92% oxygen saturation on 100% Fi02, which was increased today up from 70 Fi02%. Labs today show WBC of 15.6, hgbl 10.7, sodium 138, potassium 3.9, chloride 100, CO2 37, glucose 117, calcium 8.2. Chest xray today shows pneumonia, ARDS. 10/11/2021 Patient is seen and evaluated in follow-up this morning continues to be closely monitored in the ICU and patient is continued on FiO2 of 90% and PEEP is 16 with multiple medical consultations following. Chest x-ray today shows new left- sided pneumothorax estimated 10-20% with overlying subcutaneous emphysema and pneumomediastinum redemonstrated with bilateral multifocal and confluent op acification's redemonstrated consistent with COVID-19 infection and/or arts and no significant change from one day previous. Patient is status post left chest tube insertion with pulmonary furnace builder. Cardiology following and patient is off lidocaine drip and maintaining sinus rhythm. Patient also continues on vitamin and zinc supplements along with oral dexamethasone and patient continues on IV Lasix 40 mg daily. Patient also continues off norepinephrine and is currently maintained on IV cefepime along with fluconazole. General surgery following as well and plan is for peg and trach placement in the am 10/12/2021 Patient is seen in the ICU this morning continues to be closely monitored by multiple medical consultations. Patient was scheduled for PEG and trach placement with general surgery Dr. Nelson today although canceled as patient became hypotensive requiring Levophed along with acute blood loss anemia and hemoglobin dropped to 6.5 this morning requiring 1 unit of PRBC. Patient continues with left chest tube with pneumothorax and chest x-ray today shows the jahaira is difficult to clearly identify on the present exam and the ET tube may be approximately 1 cm from the jahaira and there are bilateral chest tubes present with continued diffuse interstitial opacification is and more focal bibasilar opacification is with subcutaneous emphysema persists along the upper chest with slight improvement on the left. No appreciable pneumothorax noted. Patient having worsening right pleural effusion last night and received a right- sided chest tube with pulmonary furnace builder. FiO2 is 90% and PEEP of 16. Again overall prognosis remains extremely poor and guarded. 10/13/2021 Patient is seen in follow-up this morning in the ICU with multiple medical consultations following. Lengthy discussion was had with pulmonary furnace builder and family members and would like to continue with full CODE STATUS and plan is in place for PEG tube and tracheostomy placement tomorrow. Anticoagulant on hold and Dr. Nelson plans for surgery tomorrow. Patient continues on oral dexamethasone along with IV cefepime, vitamin and zinc supplements. Patient also continues on Cleviprex and Nimbex. Patient also continues on fentanyl and propofol and will continue. Chest x-ray today shows stable portable chest with bilateral chest tubes without sizable pneumothorax identified and continued subcutaneous air persists with persistent interstitial changes bilaterally with airspace disease in the bilateral lung bases that are unchanged. FiO2 is 60% and PEEP of 16. 10/14/2021 Patient is seen and evaluated in the ICU being closely monitored with multiple medical consultations following. at the bedside today and had detailed discussion with overall prognosis. Plan is to proceed with PEG tube and tracheostomy placement with surgery Dr. Nelson today and anticoagulant continues to be on hold for this procedure. Patient continues on mechanical ventilation with an FiO2 of 70% and PEEP of 16. Chest x-ray today shows improving infiltrate with bibasilar residual and bilateral chest tubes remain present with no pneumothorax evident on either side and again subcutaneous emphysema is noted. 10/15/2021 Patient is seen in the ICU being closely monitored. Patient is status post PEG and trach placement yesterday. Chest x-ray today shows bilateral patchy lung infiltrates greater at the right base with diffuse increased lung markings and bilateral chest tubes remain present and subcutaneous emphysema on the right is diminished. Patient continues with an FI02 of 60 and peep is 16. To resume tube feeds per surgery. Patient continues on norepinephrine and sedation. Patient is receiving IV lasix daily. 10/16/2021 Patient is currently in the MICU and remains on ventilator. Status post tracheostomy and PEG tube placement on 10/14/2021. Patient is sedated and paralyzed. Also on Cleviprex. Chest x-ray showed no acute cardiopulmonary disease with no interval changes. Laboratory data showed WBC 16.9 hemoglobin 8.9 and platelets 278 BUN 19 and creatinine 0.5 and calcium 8.1 patient is being continued on dexamethasone 6 mg daily, Lasix 40 mg IV daily and multivitamins and anticoagulation with Eliquis. Pulmonary and general surgery is on board. 10/17/2021 Patient is in the MICU. Remains on the current ventilator via tracheostomy. Status post tracheostomy and PEG tube placement on 10/14/2021. Sedated and paralyzed and also on fentanyl drip. Currently on assist control with tidal volume of 420, FiO2 80% and PEEP of 16. Respiratory of 30. Chest x-ray showed no interval change in acute cardiopulmonary disease Laboratory data showed WBC 15.8 hemoglobin 8.2 and platelets 271 Sodium 136 potassium 3.1 chloride 100 bicarb is 32 BUN 21 creatinine 0.48 and albumin 2.3 Patient is being continued on Lasix IV, dexamethasone and anticoagulation with Eliquis. 10/18/2021 Patient is seen in follow-up and continues in the ICU with multiple medical consultations following. Patient continues on mechanical vent with an FI02 of 70% and peep is 16. Chest xray shows overall stable exam with interstitial changes and bilateral patchy infiltrates with right greater than left and greater at the bases with bilateral chest tubes noted. no appreciable pneumothorax. Patient continues on propofol and fentanyl along with cleviprex and rocuronium. Eliquis has been resumed. Potassium is 3.3 and will be replaced per protocol. Patient also continues to receive IV lasix daily. 10/19/2021 Patient is seen this morning and continues to be in the ICU with multiple medical consultations following. Patient continues with bilateral chest tubes and remains on mechanical ventilation with an FiO2 of 65% and PEEP is 16. Chest x-ray today shows Bilateral multifocal and confluent opacification greatest in the lower lungs consistent with COVID-19 infection and/or ARDS all redemon strated with no significant change from one day earlier and continued bilateral chest tubes without pneumothorax redemonstrated. 10/20/2021 Patient continues to be in the ICU under close critical monitoring with multiple medical consultations following. Patient continues with bilateral chest tubes although per nursing staff may possibly discontinued today. Chest x-ray today shows stable portable chest with no change in scattered mixed interstitial and alveolar infiltrates. Patient remains on mechanical ventilation via tracheostomy with an FiO2 of 55% and PEEP is 15. Patient continues on Cleviprex along with rocuronium and sedation. 10/21/2021 Patient continues in the MICU being closely monitored. Chest tubes were removed today and chest xray stable with interstitial changes and basilar ground glass, that is similar to previous with slight improvement. Patient continues on mechanical vent with an FI02 of 70% and peep is 14. Patient remains sedated and per nursing staff working on weaning paralytics. Patient continued on rocuronium. Patient is tolerating tube feeds and also continues on IV lasix daily with generalized edema noted throughout. 10/22/2021 Patient is currently MICU. Patient was taken off paralytic and chest tubes yesterday. Continued on pressure support with PEEP of 13. 88 this morning patient again desaturated. Patient became hypotensive and patient was started on norepinephrine. Chest x-ray showed large pneumothorax on the right. Right chest tube was reinserted. Patient is on pressure control. Remains sedated and mechanically ventilated. Laboratory data showed WBC 13.7 hemoglobin 7.7 and platelets 314 Sodium 140 potassium 3.0 chloride 102 bicarb is 37 BUN 19 and creatinine 0.44 and calcium 8.1 Patient is being continued dexamethasone multivitamins and anticoagulation with Eliquis. Patient is also on IV Lasix. Potassium will be replaced. 10/23/2021 Patient is currently MICU. Patient is on mechanical ventilator via trach tube. Patient developed right-sided tension pneumothorax. Again patient had issues with pneumothorax around 10 PM yesterday. Chest tube has to be replaced. Patient is also requiring pressor support. Off pressors this morning. On pressure support. PEEP of 13 and FiO2 100%. Laboratory data showed WBC 13.7 hemoglobin 7.7 and platelets 314 Sodium 140 potassium 3.0 chloride 102 bicarb is 37 BUN 19 and creatinine 0.44 and calcium 8.1 cultures have been negative. Patient is being current on dexamethasone, Eliquis and also IV Lasix 40 mg daily. 10/24/2021 Patient is currently in the MICU. Currently on mechanical ventilator via tracheal tube. Continue propofol and fentanyl. Remains pressure support with PEEP of 13 FiO2 reduced to 70%. Chest x-ray showed bilateral multifocal and confluent opacities consistent with COVID-19 infection and ARDS are redemonstrated and stable. Right-sided chest tube with small apical pneumothorax estimated 10 to 15% improved from 1 day earlier. Pneumo mediastinum noted. Laboratory data showed WBC 14.2 hemoglobin 7.1 and platelets 317 Sodium 140 potassium 3.2 chloride 104 bicarb is 38 BUN 20 and creatinine 0.46 and calcium 7.8. Patient is being continued on dexamethasone, Eliquis and also on IV Lasix. Currently on multivitamins. 10/25/2021 Patient is seen this morning continues to be in the ICU with close monitoring. Patient continues on mechanical vent via tracheostomy and FiO2 of 65% with a PEEP of 13. Chest x-ray this morning shows right-sided chest tube in place with continued small to moderate right sided pneumothorax slightly smaller in the interval, apical component measuring 2.3 cm versus 2.8 cm previously along with interstitial opacities persist in pneumonitis versus mild pulmonary edema, status post right side thoravent place this morning with pulmonary furnace builder showing resolution of the apical and lateral components of the pneumothorax and 5 mm basilar components remain. Patient requiring more oxygen supplementation and FiO2 being increased to 75%. Hemoglobin found to be 6.3 and awaiting to receive a unit of PRBC. Patient also continues on Nimbex along with Cleviprex, oral dexamethasone, vitamin and zinc supplements along with oral eliquis, along with fentanyl and propofol for sedation. 10/26/2021 Patient is seen in follow-up today continues on mechanical ventilation with an FiO2 of 75% which is currently titrating down to 65% per nursing staff with an FiO2 of 13. Patient continues on Cleviprex and Nimbex and attempts at weaning although not tolerating well. Patient also continues on fentanyl and propofol for sedation. Chest x-ray today shows a right-sided thoracic vent and chest to both present and overlying appropriate positions with minimal right-sided apical pneumothorax present and persistent bilateral interstitial groundglass opacities noted with no evident pleural effusion to correlate for pneumonia. Hemoglobin improved to 8.7 today after 1 unit of PRBC. Will continue to monitor closely. 10/27/2021 Patient is seen today continues to be closely monitored in the ICU on mechanical vent via tracheostomy with an FiO2 of 70% and PEEP is 13. Patient continues on IV Lasix daily along with propofol and fentanyl for sedation. Patient also continues to be on Cleviprex as blood pressure is elevated. Per nursing staff attempts at weaning some sedation although patient not tolerating well. Patient continues with chest tubes on the right and there is an air leak noted and also continues with thoravent on the right. Chest x-ray today shows enlarging right- sided pneumothorax estimated at 15% with no significant change in interstitial infiltrate seen bilaterally. 10/28/2021 Patient is seen in the ICU this morning continues on mechanical ventilation with a FI02 of 85% and peep is 13. Patient continues on propofol for sedation along with Nimbex and also patient is on norepinephrine with hypotension at times. Chest xray today shows continued diffuse interstitial infiltrates with continued right side pneumothorax slightly larger in the interval, apical component measu ring 1.9cm versus 1.5. Potassium was found to be 3.0 and being replaced. 10/29/2021 Patient is seen and evaluated today and continues to be closely monitored in the ICU. Multiple medical consultations following. Patient continues on mechanical ventilation via tracheostomy and also PEG tube with tube feedings and tolerating. FiO2 is currently 60% with a PEEP of 14. Cleviprex is currently off and patient continues on decreased doses of sedation. Patient also continues on IV Levaquin and will continue. Patient is currently off of Levophed and Nimbex. Patient was continued on 40 mg of Lasix daily which is currently being increased to twice daily and will continue to monitor closely. Patient's potassium was found to be 2.8 today and being replaced per protocol. Chest x-ray this morning showed a continued right-sided pneumothorax increasing in size currently estimated at 40% and emergent chest tube placement on the right was performed by pulmonary furnace builder and subsequent removal of right side thoravent. Repeat chest x-ray showed a diminished right sided pneumothorax on the right and increasing diffuse infiltrates greater on the right. 10/30/21 This patient is still on the vent. Vent settings are noted. The patient continues to be unresponsive. Blood pressure is fluctuating. Dr. Alejandro is following the patient closely. Family updated. Prognosis guarded. Brad morrison. See orders for further details. 10/31/2021 This patient remains to be on the vent. The patient has significant difficulties in weaning off from the vent. The pneumothorax on the right seemed to be little improving. Patient has chest tubes in situ. Patient also developed atrial fibrillation faster [place]. The patient is mechanically intubated. Cardizem initiated. Cardiology is consulted. Dr. Alejandro is following the patient closely. The family at the bedside updated about the prognosis. Review of systems: Unable to obtain as patient is mechanically intubated and sedated 11/01/2021 She continues in the ICU on mechanical vent via tracheostomy and FiO2 is currently 70% with a PEEP of 14. Currently working on transitioning to metoprolol multiple medical consultations following. Patient continues with right-sided chest tubes and cardiology also following and patient is t ransitioned to oral Cardizem along with metoprolol. 2-D echo shows mild concentric left ventricular hypertrophy with overall LV systolic function normal with an EF of 55-60% and also noted to have some free space that may represent effusion or a pericardial fat pad. Chest x-ray today shows interval increase in size of small right-sided pneumothorax apical component 2.3 cm versus 1.8 cm previously and a lateral basilar component is now seen measuring 5 mm with 2 chest tubes continuing and also similar diffuse patchy interstitial opacification persist. 11/02/2021 Patient continues in the MICU on mechanical ventilation and FI02 is 55% with a peep of 14. Continued attempts at weaning sedatives to assess mentation and using dilaudid as needed to control sedation. Cardiology following and patient continues in sinus rhythym currently with oral cardizem and metoprolol. Patient has completed the antibiotic course of Levaquin and is being discontinued. Chest xray shows stable right upper lung pneumothorax with 2 chest tubes that will remain. Persistent patchy and confluent increase opacities redemonstrated. Patient will be given a dose of lasix today. Patient is afebrile. 11/03/2021 Patient is seen in follow-up this morning and continues to be closely monitored in the ICU with multiple medical consultations following. Per nursing staff working on weaning sedation and is currently off propofol to assess and no responses noted and patient is not following commands. FiO2 titrated down to 45% with a PEEP of 14 and currently on Precedex for hypertension. Chest xray shows stable scattered interstitial and alveolar infiltrates throughout both lung patterson that persist and are unchanged. Potassium is low at 3.3 and will replace per protocol and recommend repeat labs. 11/04/2021 Patient is seen and evaluated today and continues to be in critical condition. Continued right chest tubes x2 and chest xray today shows some increase in size of the pneumothorax on the right. Patient is off sedation since yesterday and does not respond to commands only painful stimuli. CT brain ordered and pending. Patient currently on precidex and having multiple issues with blood pressure. Code status was changed to no code by family today. Patient continues on vent and FI02 is 50% with a peep of 14. Overall prognosis is extremely poor and guarded. Review of systems: Unable to obtain as patient is mechanically intubated and sedated Active Medications Amlodipine Besylate (Amlodipine 10 Mg Tab) 10 mg PO DAILY [facility] Last Admin: 11/04/21 08:14 Dose: 10 mg Documented by: Apixaban (Apixaban 5 Mg Tab) 5 mg PO BID [facility]; Protocol Last Admin: 11/04/21 20:05 Dose: 5 mg Documented by: Artificial Tears (Artificial Tears-Hypromellose Drops 15 Ml Btl) 2 drops BOTH EYES QID [facility] Last Admin: 11/04/21 20:06 Dose: 2 drops Documented by: Ascorbic Acid (Ascorbic Acid 500 Mg Tab) 500 mg PO BID [facility] Last Admin: 11/04/21 20:05 Dose: 500 mg Documented by: Diltiazem HCl (Diltiazem Oral 30 Mg Tab) 30 mg PO QID [facility] Last Admin: 11/04/21 20:05 Dose: 30 mg Documented by: Docusate Sodium (Docusate Oral Soln 100 Mg/10 Ml Cup) 100 mg PO DAILY PRN PRN Reason: Constipation Last Admin: 10/18/21 15:53 Dose: 100 mg Documented by: Ergocalciferol (Ergocalciferol 1,250 Mcg (50,000 Iu) Capsule) 1,250 mcg PO MORRIS [facility] Last Admin: 10/31/21 08:21 Dose: 1,250 mcg Documented by: Hydromorphone HCl (Hydromorphone 1 Mg/Ml 1 Ml Syringe) 1 mg IVP Q3H PRN PRN Reason: Pain Last Admin: 11/05/21 01:56 Dose: 1 mg Documented by: Sodium Chloride (Saline 0.9%) 1,000 mls @ 50 mls/hr IV .Q20H [facility] Last Admin: 11/04/21 00:13 Dose: 20 mls/hr Documented by: Clevidipine 25 mg/ IV Solution 50 mls @ 2 mls/hr IV .Q24H [facility]; Protocol Last Titration: 11/03/21 12:00 Dose: 2 mg/hr, 4 mls/hr Documented by: Propofol 1,000 mg/ IV Solution 100 mls @ 0 mls/hr IV .Q0M [facility]; Protocol Last Admin: 11/05/21 00:42 Dose: 10 mcg/kg/min, 5.58 mls/hr Documented by: Norepinephrine Bitartrate 4 mg (/ Sodium Chloride) 254 mls @ 17.031 mls/hr IV .[id number] [facility]; Protocol Last Admin: 11/04/21 23:16 Dose: Not Given Documented by: Insulin Aspart (Insulin Aspart (Novolog) 100 Unit/Ml Vial) 0 unit SQ Q6HR [facility]; Protocol Last Admin: 11/04/21 23:39 Dose: Not Given Documented by: Losartan Potassium (Losartan 25 Mg Tab) 12.5 mg PO DAILY [facility] Last Admin: 11/04/21 08:17 Dose: 12.5 mg Documented by: Metoprolol Tartrate (Metoprolol Tartrate 50 Mg Tab) 50 mg PO BID [facility] Last Admin: 11/04/21 20:05 Dose: 50 mg Documented by: Miscellaneous Information (Pneumonia Protocol Utilized 1 Each [facility]) 1 each PO ONCE PRN PRN Reason: Per Protocol Miscellaneous Information (Potassium Replacement Protocol 1 Each [facility]) 1 each MISCELLANE DAILY PRN; Protocol PRN Reason: Per Protocol Naloxone HCl (Naloxone 0.4 Mg/Ml 1 Ml Vial) 0.2 mg IV Q2M PRN PRN Reason: Opioid Reversal Nystatin (Nystatin 100,000 Unit/Ml Susp 500,000 Unit/5 Ml Cup) 500,000 unit PO QID [facility] Last Admin: 11/04/21 20:06 Dose: 500,000 unit Documented by: Pantoprazole Sodium (Pantoprazole 40 Mg/10 Ml Vial) 40 mg IV DAILY [facility] Last Admin: 11/04/21 08:18 Dose: 40 mg Documented by: Potassium Bicarbonate (Potassium Bicarbonate/Cit Ac 20 Meq Tablet.Eff) 20 meq PO TID [facility] Last Admin: 11/04/21 20:05 Dose: 20 meq Documented by: Prednisone (Prednisone 20 Mg Tab) 60 mg PO DAILY [facility] Last Admin: 11/04/21 08:13 Dose: 60 mg Documented by: Quetiapine Fumarate (Quetiapine 50 Mg Tab) 50 mg PO BID [facility] Last Admin: 11/04/21 20:05 Dose: 50 mg Documented by: Zinc Sulfate (Zinc Sulfate 220 Mg Cap) 220 mg PO DAILY [facility] Last Admin: 11/04/21 08:14 Dose: 220 mg Documented by: Physical Exam: Gen: This is a 61-year-old female currently sedated and intubated. mechanical ventilation Fio2 50% with a PEEP of 14. HEENT: Head is atraumatic, normocephalic. Pupils equal, round. Sclerae is an icteric. tracheostomy noted NECK: Supple. No JVD. No lymphadenopathy. No thyromegaly. tracheostomy noted LUNGS: Diminished breath sounds bilaterally with coarse rhonchi and crackles noted. No intercostal retractions. Right side chest tubes noted, tachypneic HEART: S1, S2 are muffled ABDOMEN: Soft. Obese. Bowel sounds are present. No masses. No tenderness. peg tube noted. EXTREMITIES: No pedal edema. No calf tenderness. generalized edema noted NEUROLOGICAL: Patient is currently intubated and off sedation not following commands and is comatose Assessment: Acute COVID-19 infection with acute COVID-19 bilateral interstitial pneumonia with hypoxic hypercarbic respiratory failure on mechanical vent status post trach and peg tube placement on 10/14/2021 Worsening right side pneumothorax status post chest tube placement and thoravent removal on 10/29/2021 bilateral pneumothoraces with chest tube placement and status post removal of chest tubes 2.3.2021 Atrial fibrillation, new onset, currently rate controlled on metoprolol and cardizem Non-sustained ventricular tachycardia, currently sinus Acute left leg deep vein thrombosis Primary hypercoagulable state and factor V deficiency Obesity with a body mass index of 36.0 DVT prophylaxis: on Eliquis No code Plan: Recommend to continue with current medications and follow along closely with multiple medical consultations. Prognosis remains extremely guarded with multiple complex medical issues noted. Patient continues on mechanical ventilation via tracheostomy and FiO2 50% with PEEP of 14. Recommend to continue with current medications. Patient is currently off propofol and requiring Precidex. CT brain ordered and pending. Chest x-ray as mentioned previously and continued with right-sided chest tubes. Recommend repeat labs and chest x-ray in a.m. and continued close monitoring. Code status was changed by family to NO CODE today. Again due to multiple complex medical issues overall prognosis is extremely poor and quite guarded. The impression and plan of care has been dictated by Carla Schmidt, nurse practitioner as directed. MD Nicole I have performed a history and examination and MDM of this patient, discussed the same with the dictator, and agree with the dictator's assessment and plan as written ,documented as a scribe. Based on total visit time, I have performed more than 50% of the visit. Any additional findings or plans will be noted. Objective - Vital Signs Vital signs: Vital Signs Temp 98.2 F 11/04/21 08:00 Pulse 107 H 11/04/21 08:00 Resp 37 H 11/04/21 08:00 BP 146/76 11/04/21 08:00 Pulse Ox 93 L 11/04/21 08:00 Intake & Output 11/03/21 11/04/21 11/04/21 18:59 06:59 18:59 Intake Total 822.010 500.741 66 Output Total 1105 595 55 Balance -282.990 -94.259 11 Weight 90.5 kg Intake: IV 276 276 46 0.9 Normal Saline @ 20mL/ 240 240 40 hr pressure bag 36 36 6 Intake, IV Titration 276.010 14.741 Amount Clevidipine Butyrate 25 7.467 mg In Empty Bag 1 bag @ 1 MG/HR 2 mls/hr IV .Q24H [facility] Rx#:[id number] Dexmedetomidine/0.9% NaCl 159.469 (Pmx) 400 mcg In Empty Bag 1 bag @ 0.2 MCG/KG/HR 4.47 mls/hr IV .[id number] [facility] Rx#:[id number] Norepinephrine 4 mg In 3.122 Sodium Chloride 0.9% 250 ml @ 0.05 MCG/KG/MIN 17. 031 mls/hr IV .[id number] [facility] Rx#:[id number] propofoL 1,000 mg In 105.952 14.741 Empty Bag 1 bag @ Titrate IV .Q0M [facility] Rx#: [id number] Tube Feeding 110 120 20 Other 160 90 Output: Urine 1105 595 55 Other: Voiding Method Indwelling Catheter Indwelling Catheter Indwelling Catheter ABP, PAP, CO, CI - Last Documented Arterial Blood Pressure 164/60 - Labs CBC & Chem 7: 11/04/21 04:30 11/04/21 04:30 Labs: Abnormal Lab Results - Last 24 Hours (Table) 11/03/21 11/03/21 11/03/21 Range/Units 11:20 18:52 23:32 RBC (3.80-5.40) m/uL Hgb (11.4-16.0) gm/dL Hct (34.0-46.0) % RDW (11.5-15.5) % ABG pH (7.35-7.45) ABG pCO2 (35-45) mmHg ABG pO2 (83-108) mmHg ABG HCO3 (21-25) mmol/L ABG Total CO2 (19-24) mmol/L Carbon Dioxide (22-30) mmol/L BUN (7-17) mg/dL Creatinine (0.52-1.04) mg/dL POC Glucose (mg/dL) 214 H 131 H 109 H (75-99) mg/dL 11/04/21 11/04/21 11/04/21 Range/Units 04:30 04:30 04:54 RBC 3.18 L (3.80-5.40) m/uL Hgb 9.4 L (11.4-16.0) gm/dL Hct 29.3 L (34.0-46.0) % RDW 16.1 H (11.5-15.5) % ABG pH 7.47 H (7.35-7.45) ABG pCO2 52 H (35-45) mmHg ABG pO2 73 L (83-108) mmHg ABG HCO3 37 H (21-25) mmol/L ABG Total CO2 39 H (19-24) mmol/L Carbon Dioxide 36 H (22-30) mmol/L BUN 21 H (7-17) mg/dL Creatinine 0.33 L (0.52-1.04) mg/dL POC Glucose (mg/dL) (75-99) mg/dL 11/04/21 Range/Units 05:22 RBC (3.80-5.40) m/uL Hgb (11.4-16.0) gm/dL Hct (34.0-46.0) % RDW (11.5-15.5) % ABG pH (7.35-7.45) ABG pCO2 (35-45) mmHg ABG pO2 (83-108) mmHg ABG HCO3 (21-25) mmol/L ABG Total CO2 (19-24) mmol/L Carbon Dioxide (22-30) mmol/L BUN (7-17) mg/dL Creatinine (0.52-1.04) mg/dL POC Glucose (mg/dL) 102 H (75-99) mg/dL
[2021-11-05] MEDS: SODIUM CHLORIDE 0.9% 1,000 ML IV SCH ×2 (04:10→20:13)
[2021-11-05 04:40] LABS: Basophils # (A) 0.1 k/uL (0-0.2); Basophils % (A) 1 %; Eosinophils # (A) 0.1 k/uL (0-0.7); Eosinophils % (A) 1 %; HCT 31.5 % (34.0-46.0); HGB 9.3 gm/dL (11.4-16.0); Hypochromasia Marked; Lymphocytes # (A) 2.4 k/uL (1.0-4.8); Lymphocytes % (A) 23 %; MCH 27.6 pg (25.0-35.0); MCHC 29.6 g/dL (31.0-37.0); MCV 93.1 fL (80.0-100.0); Mean Platelet Volume 8.1; Monocytes # (A) 0.8 k/uL (0-1.0); Monocytes % (A) 7 %; Neutrophils % (A) 67 %; Platelet Count 427 k/uL (150-450); RBC 3.39 m/uL (3.80-5.40); RDW 15.9 % (11.5-15.5); WBC 10.5 k/uL (3.8-10.6)
[2021-11-05 04:43] LABS: African American GFR (CKD) >90 (>60 ml/min/1.73 sqM); Anion Gap -2 mmol/L; Blood Urea Nitrogen 20 mg/dL (7-17); Calcium 8.6 mg/dL (8.4-10.2); Carbon Dioxide 36 mmol/L (22-30); Chloride 106 mmol/L (98-107); Glucose 105 mg/dL (74-99); Non-African American GFR(CKD) >90 (>60 ml/min/1.73 sqM); Potassium 3.5 mmol/L (3.5-5.1); Sodium 140 mmol/L (137-145)
[2021-11-05 05:09] LABS: ABG Base Excess 11.6 mmol/L; ABG HCO3 36 mmol/L (21-25); ABG Oxygen Saturation 94.7 % (94-97); ABG PCO2 56 mmHg (35-45); ABG PH 7.42 (7.35-7.45); ABG PO2 74 mmHg (83-108); ABG TCO2 38 mmol/L (19-24)
[2021-11-05 05:11] LABS: Allen Test Performed? no
[2021-11-05] MEDS: INSULIN ASPART (NovoLOG) 100 UNIT/ML VIAL SQ SCH ×3 (05:14→19:00)
[2021-11-05 05:15] LABS: Glucose,Whole Blood 109 mg/dL (75-99)
--- NOTE | 2021-11-05 07:34 | XR ---
EXAMINATION TYPE: XR chest 1V portable DATE OF EXAM: 11/05/2021 COMPARISON: 11/04/2021 HISTORY: SOB, Follow Up FINDINGS: Right upper lobe pneumothorax persists and appears to be slightly smaller in size with current measur ement of 2.4 cm versus 3.7 cm previously. 2 right-sided chest tubes are in place. Right-sided PICC li ne and tracheostomy tube unchanged. Scattered reticulonodular infiltrates throughout both lung patterson are stable. Stable appearance of the cardio-mediastinal structures at this time. IMPRESSION: 1. Slight improvement in right-sided pneumothorax otherwise stable examination. Clinical correlation and follow up until resolution is recommended.
[2021-11-05] MEDS: predniSONE 20 MG TAB PO SCH (07:56)
[2021-11-05] MEDS: DILTIAZEM ORAL 30 MG TAB PO SCH ×4 (07:57→22:31)
[2021-11-05] MEDS: amLODIPine 10 MG TAB PO SCH (07:57)
[2021-11-05] MEDS: METOPROLOL TARTRATE 50 MG TAB PO SCH ×2 (07:57→20:12)
[2021-11-05] MEDS: ASCORBIC ACID 500 MG TAB PO SCH ×2 (07:57→20:12)
[2021-11-05] MEDS: LOSARTAN 25 MG TAB PO SCH (07:57)
[2021-11-05] MEDS: QUEtiapine 50 MG TAB PO SCH ×2 (07:57→20:13)
[2021-11-05] MEDS: PANTOPRAZOLE 40 MG/10 ML VIAL IV SCH (07:57)
[2021-11-05] MEDS: POTASSIUM BICARBONATE/CIT AC 20 MEQ TABLET.EFF PO SCH ×3 (07:57→22:31)
[2021-11-05] MEDS: NYSTATIN 100,000 UNIT/ML SUSP 500,000 UNIT/5 ML CUP PO SCH ×4 (07:58→22:29)
[2021-11-05] MEDS: APIXABAN 5 MG TAB PO SCH ×2 (07:58→20:12)
[2021-11-05] MEDS: ARTIFICIAL TEARS-HYPROMELLOSE DROPS 15 ML BTL BOTH EYES SCH ×4 (07:58→22:29)
[2021-11-05] MEDS: ZINC SULFATE 220 MG CAP PO SCH (07:58)
[2021-11-05] MEDS: CLEVIDIPINE BUTYRATE 25 MG in EMPTY BAG 1 BAG IV SCH (08:15)
--- NOTE | 2021-11-05 11:16 | P.PN ---
Subjective Progress Note Date: 11/05/21 Principal diagnosis: Hypoxemic respiratory failure. Pulmonary consult dated 09/24/2021. 61-year-old female who states that she's been having symptoms, since September 10. The symptoms included shortness of breath, cough, fatigue, muscle aches, and generally just not feeling well. The patient is on vaccinated. She tested positive for coronavirus on September 23. Currently, she is on BiPAP with settings of 16/8, at 100%. Her primary care physician is Dr. Dionte Bal. The patient takes Coumadin chronically for her factor V or Leiden factor deficiency. Initially, on room air, her saturations were in the 70s, and on a nonrebreather, only got up into the mid 80s. In addition to the primary hypercoagulable state, she has a history of DVT, fibromyalgia, pneumonia, arthritis, and degenerative disc disease. She is a lifelong nonsmoker. She is getting saline at 50 mL an hour currently. White count 12.1, with a normal hemoglobin, hematocrit, and platelet count. PTT 24.2 INR 2.5, and d-dimer was 32.13. Sodium 1:30, potassium 3.1, chlorides 106, CO2 20, anion gap 12, BUN 47, and creatinine 1.5. Lactic acid was 1.5. AST was 95 with an ALT of 60. Pro-calcitonin level was 0.52. N-terminal proBNP is 259. Chest x-ray reveals diffuse bilateral infiltrates. CT angiogram was negative for pulmonary embolism, but did show diffuse infiltrates consistent with coronavirus pneumonia. Progress note dated 09/25/2021. 62-year-old female that I saw yesterday in consultation. She's been having coronavirus symptoms since September 10. The patient sees Dr. Dionte Bal as a primary. Yesterday, she was on BiPAP, at 16/8 and 100%. She was doing okay. Today, her saturations are quite low, she is much more tachypnea, and I decided to go ahead and move her to the ICU. The patient may require intubation and mechanical ventilation before the end of the day. CT angiogram was negative for pulmonary embolism. I did speak to her daughter, and her . White count 17.1, hemoglobin 11.9, hematocrit 37.5, platelet count 390,000. PTT is 33.3 INR is 3.5. Blood gases done on 100% show pO2 of only 49, pCO2 32, and a pH is 7.42. Sodium is 142, potassium 3.7, chlorides 113, CO2 21, anion gap 8, BUN 35, with a creatinine of 1.01. Progress note dated 09/26/2021. 62-year-old female, who was admitted with a diagnosis of hypoxemic respiratory failure secondary to coronavirus associated pneumonia. She's had coronavirus symptoms since September 10. Yesterday, she was transferred down to the intensive care unit for worsening respiratory status, and required intubation and mechanical ventilation. In addition, she had a central line placed and an arterial line placed yesterday. She remains on the ventilator, she is on the volume assist control mode, rate 26, tidal volume 400, FiO2 100%, and PEEP of 15. Arterial blood gases show pO2 of 82, pCO2 46, and a pH is 7.27. The patient's getting saline at 50 mL an hour, Nimbex at 1 mcg/kg/m, propofol at 50 mcg/kg/m, and norepinephrine at 2 mcg/m. Tube feedings have yet to be started. Chest x-ray shows a properly placed endotracheal tube, and diffuse bilateral infiltrates, which are essentially unchanged. White count 14.4, hemoglobin 10.5, hematocrit 32.4, and platelet count 250,000. PTT 34.5 with an INR 3.6. Sodium 143, potassium 4, chlorides 118, CO2 22, anion gap 3, BUN 27, and creatinine 0.95. LDH is 930. C-reactive protein is 16.2. CT angiogram was negative for pulmonary embolism. Reevaluated today on 10/08/21, patient remains in the ICU, intubated, mechanically ventilated, does not seem to be doing much better today. Patient is basically about the same, remains on assist control rate of 30 tidal volume 325 FiO2 is up to 85% PEEP remains at 16. Try to increase the PEEP, however there was a significant increase in her peak airway pressure and plateau pressure. Presently her peak airway pressure is 38, and plateau pressure is 34. Patient remains on propofol at 40 mcg/kg/m Nimbex of 0.5 but granted kilo per minute fentanyl 1 mcg/kg/h clevidipine 5 mg per hour. Chest x-ray is basically about the same, continues to show bilateral infiltrates and most likely underlying ARDS. Her labs showed WBC count of 13.0 hemoglobin 10.4. Electrolytes are normal renal profile is normal. ABG showed a pO2 of 61 pCO2 57 pH of 7.47. This was on 75%, and increase her FiO2 to 80% O2 saturation seems to be marginal on the monitor. Patient is off lidocaine drip today. Reevaluated today on 10/09/21, patient remains in the ICU, intubated and mechanically ventilated. Not much of the changes noted in the last few days, remains on assist control rate of 11/18/2024 FiO2 80% and PEEP of 16. ABG remains marginal, her pO2 is 62 pCO2 56 pH of 7.42. Patient remains on Nimbex at 3 mcg/kg/m fentanyl 1 mcg/kg/h propofol 40 mcg/kg/m, she is on clevidipine for milligrams per hour, IV fluids at KVO. Her WBC count is 17.1, and hemoglobin is 11.6. Electrolytes are normal and renal profile is normal. Chest x-ray continues to show multifocalopacities. And subcutaneous emphysema. No evidence of pneumothorax. Endotracheal tube, nasogastric tube and left central line are all in proper positions. Reevaluated today on 10/10/21, patient remains in the ICU, intubated and mechanically ventilated. She is presently on assist control rate of 30 tidal volume 325 FiO2 70% PEEP of 16. Her ABG showed a pO2 of 79 pCO2 48 pH of 7.50. Chest x-ray is basically showing no change. Continues to have bilateral infiltrates. Electrolytes are normal bicarb is 37 BUN is 35 creatinine 0.69 WBC count is 15.6 hemoglobin is 10.7. Patient remains on vital HPI 10 mL per hour. She is off level Prax, and her blood pressure seems to be relatively stable. Patient remains sedated and paralyzed, she is on propofol at 50 mcg/kg/m Nimbex at 3 mcg/kg/m fentanyl 12 mcg/kg/h, she is supposed to undergo tracheostomy and PEG tube placement next week, her Eliquis was restarted, needs to be placed on hold once the decision was made whether she is undergoing tracheostomy and PEG tube tomorrow by Dr. balbuena Progress note dated 10/11/2021. 61-year-old female admitted back on September 23. She came in with a diagnosis of coronavirus associated pneumonia. She came to the intensive care unit on the , and was intubated for respiratory failure on 09/25/2021. The patient remains on mechanical ventilator. The patient's on the volume assist control mode, rate 30, tidal volume 325, FiO2 90%, PEEP of 16. Blood gases show pO2 of 62, pCO2 of 51, and a pH is 7.47. The patient's getting saline at 20 mL an hour, propofol at 40 mcg/kg/m, fentanyl at 1 mcg/kg/h, Nimbex at 3 mcg/kg/m, and vital high protein at 10 mL an hour, which is goal. The patient's chest x-ray showed a left-sided pneumothorax, about 20-25%. A #28-Pashto chest tube was inserted today. Also, a fresh arterial line was placed today, and the left radial artery. White count 16.5, hemoglobin 10.6, hematocrit 34.5, platelet count 2 48,000. Sodium 136, potassium 3.6, chlorides 99, CO2 36, anion gap 1, BUN 32, with a creatinine 0.7. Microbiologic studies are all negative. Chest x-ray shows a very properly placed left-sided chest tube, with complete resolution of prior left-sided pneumothorax. Progress note dated 10/12/2021. 61-year-old female admitted back on 09/23/2021. She came in with a diagnosis of coronavirus associated pneumonia. The patient came to the intensive care unit on 09/25/2021, and was intubated on 09/25/2021 for worsening respiratory status. The patient remains on the mechanical ventilator. The patient was to have a tracheostomy and PEG tube placed today, but unfortunately, her hospital course is now been complicated by bilateral pneumothorax, requiring bilateral chest tube placements on October 11, and bleeding from the left chest tube site, since yesterday. That is despite the fact that the patient received fresh frozen plasma, vitamin K, and 4 factor prothrombin complex concentrate. Currently, the patient remains on the volume assist control, rate 30, tidal volume 325, FiO2 90%, and PEEP of 16. Blood gases show pO2 of 74, pCO2 of 58, and a pH is 7.41. The patient's on saline at KVO, propofol at 40 mics per kilogram per minute, Nimbex at 3 mcg/kg/m, fentanyl at 1 mcg/kg/h, norepinephrine at 2 mcg/m, and tube feeds are currently on hold. I did order 1 unit packed red blood cells. I told the nurse to call the physician, they canceled the anticipated surgery today. I was able to speak to the patient's , Taco, at [phone]. He was going to talk to the family about CODE STATUS, and possibly withdrawing life support. White count 17.3, hemoglobin 6.5, down from 10.1, hematocrit 20.4, and platelet count 194,000. PT 10.6 INR 1 PTT fibrinogen 326, and d-dimer is 0.92. Sodium 138, potassium 3.6, chlorides 101, CO2 36, anion gap 1, BUN 30, creatinine 0.69. Sputum is negative. Blood cultures are negative. Chest x-ray shows bilateral chest tubes, without pneumothorax, and diffuse patchy bilateral infiltrates. Progress note dated 10/13/2021. 61-year-old female, admitted back on 09/23/2021. She was admitted with a diagnosis of coronavirus associated pneumonia. He came to the intensive care unit on 09/25/2021, and was intubated on the same day for worsening respiratory status. She remains on mechanical ventilator. The patient was to have a trache ostomy and PEG tube placed, but that was put on hold. She did develop bilateral pneumothoraces, and required bilateral chest tube insertions. At one point, she was bleeding from the left chest tube site. That subsequently, has stopped. She remains on the ventilator, volume assist control, rate 30, tidal volume 325, FiO2 60%, and PEEP of 16. Blood gases show pO2 of 89, pCO2 of 50, and pH is 7. 44. The patient's currently on Nimbex at 3 mics per kilogram per minute, propofol at 50 mcg/kg/m, fentanyl 1 mcg/kg/h, Cleveprex at 11 mg an hour, saline at 20 mL an hour, and vital high protein at 10 mL an hour, which is goal. The tube feeds are currently on hold in anticipation of tracheostomy and PEG tube placement. White count 18, hemoglobin 7.3, hematocrit 22.8, and platelet count 208,000. Sodium 138, potassium 3.6, chlorides 104, CO2 32, anion gap 2, BUN 27, and creatinine 0.62. Microbiologic studies are negative. Chest x-ray shows bilateral chest tubes. No sizable pneumothorax is noted. Subcutaneous air persist. Persistent interstitial densities are noted bilaterally. Progress note dated 10/14/2021. 61-year-old female, admitted back on 09/23/2021. She was admitted with a diagnosis of coronavirus associated pneumonia. She came to the intensive care unit 2 days later, on September 25. She was intubated on the same day, for worsening hypoxemic respiratory failure. The patient is apparently scheduled to have a tracheostomy and PEG tube placement performed today. Tube feeds are on hold. She remains on the ventilator. She is on the volume assist control mode, rate 30, tidal volume 325, FiO2 70%, and PEEP of 16. Arterial blood gases on 60%, show pO2 of 53, pCO2 of 57, and pH is 7.38. The patient's on Cleveprex at 4 mg an hour, fentanyl 1.5 mcg/kg/h, Nimbex at 3 mcg/kg/m, propofol at 50 mcg/kg/m, and saline at KVO. The patient is again seen in room 253. White count was 21.7. Hemoglobin 8.7, hematocrit 27.4, and platelet count was normal. Sodium 138, potassium 3.4, chlorides 103, CO2 35, BUN 25, and creatinine 0.59. Chest x-ray shows improving bilateral infiltrates. Progress note dated 10/15/2021. 61-year-old female, admitted back on 09/23/2021. She is again seen in room 253. She was admitted with a diagnosis of coronavirus associated pneumonia. She came to the intensive care unit on 09/25/2021. She was intubated on 09/25/2021, for worsening respiratory status. The patient underwent tracheostomy and PEG tube placement yesterday, 10/14/2021. She remains on the ventilator. She is on the volume assist control mode, rate 30, tidal volume 325, FiO2 60%, to be dropped down to 50%, and a PEEP of 16. Blood gases show pO2 of 93, pCO2 61, pH is 7.35. The patient is on saline at KVO, propofol at 40 mcg/kg/m, Nimbex at 3 mcg/kg/m, and fentanyl 1 mcg/kg/h. The patient's also on norepinephrine at 2 mcg/m. Tube feedings are on hold. The patient has [address] This is slightly from the right chest tube. Thus far, microbiology is negative. We will discontinue the Diflucan. Currently, the patient is not on any antibiotics. We'll resume the patient's Eliquis, at 5 mg twice a day. White count 21.5, hemoglobin 8.3, hematocrit 27.2, and platelet count normal. Sodium 137, potassium 3.9, chlorides 104, CO2 32, anion gap 1, BUN 22, and creatinine 0.52. Chest x-ray shows patchy bilateral lung infiltrates. Progress note dated 10/16/2021. 61-year-old female, admitted back on 09/23/2021. The patient was again seen in room 253. She was admitted with a diagnosis of coronavirus associated pneumonia. She came to the intensive care unit on September 25. She was intubated on 09/25/2021. The patient underwent tracheostomy and PEG tube placement on 10/14/2021. She remains on the ventilator. Currently, she is on the volume assist control mode, rate 30, with a respiratory rate of 33. Tidal volume is 325. FiO2 60%, and PEEP of 16. Blood gases show pO2 of 80, pCO2 of 58, and a pH is 7.41. The patient is currently on propofol at 50 mcg/kg/m, saline at 20 mL an hour, Nimbex at 5 mcg/kg/m, and fentanyl 1.5 mcg/kg/h. The patient's also getting Cleveprex 5 mg an hour, and vital 1.2 at 10 mL an hour, which is goal. Chest x-ray shows no change. Microbiologic studies are currently negative. There is a small intermittent leak from the right-sided chest tube. The left- sided chest tube shows no leak so ever. The patient should be paralyzed, but apparently is overbreathing the ventilator. We will switch to a different paralytic. In addition, the ventilator may need to be switched out. White count 16.9, hemoglobin 8.9, hematocrit 29.2, and platelet count 278,000. Sodium 137, potassium 3.6, 2, CO2 33, anion gap 2, BUN 19, and creatinine 0.5. Progress note dated 10/17/2021. 61-year-old female, admitted back on 09/23/2021. The patient was again seen in room 253. She was admitted with a diagnosis of coronavirus associated pneumonia. She came to the intensive care unit on 09/25/2021, and was intubated on the same day. The patient underwent tracheostomy and PEG tube placement on 10/14/2021. She remains on the ventilator. Yesterday, or having issues with her tracheostomy tube. Her returned tidal lines were much lower than that should've been. We were able to do a bronchoscopy, suction her airway, and reposition the tracheostomy tube, which I believe was against the wall of the trachea. Currently, she is doing much better. She is on the volume assist control mode, rate 30, tidal volume 420, FiO2 80%, and PEEP of 16. Blood gases show a PaO2 of 69, pCO2 of 48, pH is 7.46. The patient is on propofol at 50 mcg/kg/m, saline at 20 mL an hour, fentanyl 1.5 mcg/kg/h, and rocuronium at 11 mcg/kg/m. The patient is also getting vital 1.2 at 10 mL an hour, which is goal. Today we will attempt to wean the FiO2. In addition, the patient will need a new arterial line, at the right radial site. Current labs include a white count 15.8, hemoglobin 8.2, hematocrit 24.4, and platelet count 271,000. Sodium 136, potassium 3.1, chlorides 100, CO2 32, anion gap 4, BUN 21, and creatinine 0.48. Chest x-ray today, shows diffuse infiltrates, and is largely unchanged. On 11/02/2021 patient seen in follow-up in the intensive care unit, she remains trached to the ventilator, sedated, currently on assist-control with a rate of 26, tidal M3 50, FiO2 of 55% and PEEP of 14. This morning's blood gas shows pO2 of 150, pCO2 of 67, and pH of 7.37, this was done on FiO2 of 70%, and FiO2 has been decreased down to 55%. Today's chest x-ray shows stable right upper lobe pneumothorax despite [address], persistent multifocal confluent increased opacity consistent with COVID-19 infection, no significant change from one day earlier. Patient is currently sedated with Diprivan at 65 mics per kilo per minute, fentanyl infusion at 2.5 mics per kilo per minute, 0.9 normal saline at a rate of 20 ML per hour, patient is on tube feedings at 10 mL per hour, with a goal of 10. Patient has [address], the medial chest tube has no air leak, remains to wall suction, and more lateral right-sided chest tube has intermittent air leak and remains to wall suction. Patient has been off the Cleviprex since yesterday morning at 10:45 in the morning, patient was placed on metoprolol 50 mg twice daily, and she remains on oral Cardizem 30 mg 4 times daily and Eliquis for new onset atrial fibrillation . Yesterday we had dexamethasone DC'd and place the patient on prednisone 60 mg daily. In addition patient is an +1.3 L net fluid balance over the last 24 hours, and patient will be given a dose of Lasix. Her oxygenation seems to have improved on today's blood gas, and we were able to contact the FiO2 down to 55%. She's had no acute events overnight. The rest of her blood work has been reviewed her white blood cell count is 7.2, hemoglobin is 8.9, platelet count is 304, sodium is 136, potassium is 4.0, chloride is 97, CO2 is 37, B1 is 20 creatinine 0.37. Her sp utum culture showed Corynebacterium species, and blood cultures have been negative. Patient has received 5 day course of Levaquin which can be discontinued at this time, her procalcitonin level was negative at 0.23. On November 03, 2021 patient seen in follow-up in intensive care unit. she remains trached to the ventilator, sedated, she is on control with a rate of 26, tidal 350, FiO2 55% and PEEP of 14. This morning's blood gas shows pO2 of 76, pCO2 of 60, and pH of 7.45. Her peak airway pressures 26, and plateau pressure of 30. Today's chest x-ray shows stable portable chest, 2 right-sided chest tubes, right-sided pneumothorax is unchanged compared to yesterday, there are scattered interstitial and alveolar infiltrates throughout both lungs unchanged. Patient is currently sedated on Diprivan at 55 mics per kilo per minute, fentanyl drip has been discontinued, patient has been getting intermittent doses of IV Dilaudid for discomfort. Patient has been hypertensive especially during periods of agitation, and sedation holidays. Yesterday patient was off sedation for 30 minutes, did not follow purposeful command. she did however become agitated, restless, and her vital signs were becoming unstable, she was very dyssynchronous with the ventilator, and she had to be placed back on sedation. Today's labs have been reviewed, her white blood cell count is 7.8, hemoglobin is 9.3, platelet count is 353, sodium is 139, potassium is 3.3, this is being replaced per protocol, in addition to scheduled doses of K-Lyte 20 in the every 3 times daily, chloride is 98, CO2 39, BUN is 19 creatinine 0.30. Patient is receiving nutrition with vital hypertension at a rate of 47 with a goal of 47 and standard water flushes. She has had no acute events overnight, she still has [address], the medial chest tube is positive for intermittent air leak, and lateral chest tube on the right side shows no air leak. Patient continues on prednisone 60 mg daily, she is on oral Cardizem, and Eliquis for anticoagulation, she remains in A. fib with a controlled rate. On 11/04/2021 patient seen in follow-up in the intensive care, she remains trached to the ventilator, she is currently not on any sedation since 4:00 yesterday afternoon. She is on assist-control with a rate of 26, tidal on his 350, FiO2 50% and PEEP of 14, this morning blood gas shows pO2 of 73, pCO2 52 and pH of 7.47. She is currently on no drips other than 0.9 normal saline at a rate of 20 ML per hour, patient has been off all sedation since yesterday 4:00 PM. Yesterday afternoon patient had developed bradycardia, with sinus pauses and the heart rate was down to 38, patient was hypotensive, Precedex was discontinued, and patient had recovered. She has not responded to any verbal stimuli, she grimaces to painful stimuli, does not follow instructions. Today's chest x-ray shows small to moderate size right pneumothorax with slight interval increase in size, currently at 3.7 cm at the apex versus 2.5 cm previously, and cardiomegaly and diffuse groundglass interstitial changes that are similar in appearance to yesterday's chest x-ray. Patient still has 2 right-sided chest tubes in place with intermittent air leaks alternating between the 2. Both chest tubes remained to wall suction. Patient is currently in sinus mechanism, slightly tachycardic with a rate of 115 BPM, currently remains on oral Cardizem 30 mg 4 times a day, Eliquis 5 mg twice a day, Lopressor 50 mg twice a day, she remains on Norvasc 10 mg daily and losartan 12.5 mg daily. Cleviprex has been off since yesterday. Blood pressure seems to be better controlled on today's exam. Patient has been afebrile. She is tolerating tube feedings. Today's labs have been reviewed, white blood cell, 10.5, hemoglobin is 9.4, platelet count is 397, sodium is 140, potassium 3.6, chloride is 101, CO2 36, B1 is 21 creatinine 0.3. The patient's family has been receiving daily updates on patient's condition from the nursing staff, at this time they're considering patient's CODE STATUS. Patient has been hospitalized for a total of 42 days, 40 days on the ventilator support. Patient has been maximizing medical treatment, currently she has not shown significant improvement, and has developed multiple complications along the way. Neurologically patient has not woken up, or followed any instructions. We will proceed with CT of the brain without contrast today. Patient's family has been updated by the nursing staff Progress note dated 11/05/2021. The patient is again seen in the intensive care unit, room 253. The patient is now been in the hospital for 43 days. The patient remains on the mechanical ventilator. The family did make the patient a DO NOT RESUSCITATE patient, yesterday. She is on the volume assist control, rate 26, tidal volume 350, FiO2 50%, and PEEP of 14. Her tear blood gases show pO2 of 74, pCO2 56, and pH is 7.42. The patient's getting saline at 50 mL an hour, propofol at 10 mcg/kg/m, a nd vital high protein at 40 mL, with a goal of 55 mL an hour. She had a brain CT, that was negative for anything acute. She has a right apical pneumothorax on chest x-ray. She has 2 right-sided chest tubes in place. White count 10.5, hemoglobin 9.3, hematocrit 31.5, platelet count 427,000. Sodium 140, potassium 3.5, chlorides 106, CO2 36, anion gap -2, BUN 20, creatinine 0.34. Chest x-ray shows a right apical pneumothorax, which may be slightly better. Objective - Vital Signs Vital signs: Vital Signs Temp 99 F 11/05/21 08:00 Pulse 92 11/05/21 10:00 Resp 38 H 11/05/21 10:00 BP 134/72 11/05/21 08:00 Pulse Ox 92 L 11/05/21 10:00 Intake & Output 11/04/21 11/05/21 11/05/21 18:59 06:59 18:59 Intake Total 586 1027.204 299 Output Total 620 625 55 Balance -34 402.204 244 Weight 90.5 kg 86.5 kg 86.5 kg Intake: IV 276 606 159 0.9 Normal Saline @ 20mL/ 240 570 50 hr Sodium Chloride 0.9% 1, 100 000 ml @ 50 mls/hr IV . Q20H ABRAHAM Rx#:[id number] pressure bag 36 36 9 Intake, IV Titration 21.204 0 Amount propofoL 1,000 mg In 21.204 0 Empty Bag 1 bag @ Titrate IV .Q0M ABRAHAM Rx#: [id number] Tube Feeding 120 310 110 Other 190 90 30 Output: Chest Tube Drainage 85 Chest Tube Right 50 Chest Tube Right Pleural 35 Urine 620 540 55 Other: Voiding Method Indwelling Catheter Indwelling Catheter # Bowel Movements 1 ABP, PAP, CO, CI - Last Documented Arterial Blood Pressure 155/61 - Exam No acute distress, sedated , with a midline tracheostomy tube. HEENT examination is grossly unremarkable. Neck supple. Full range of motion. No adenopathy thyromegaly or neck vein distention. Midline tracheostomy tube is noted. Cardiovascular examination reveals regular rhythm rate. S1-S2 normal. No S3 or S4. No discernible murmur noted. Heart rate 92 bpm. Heart sounds are distant. Lungs reveal coarse bilateral rhonchi. Breath sounds are equal bilaterally. No wheezes. No crackles. Saturations are 93 %. The patient has 2 chest tubes on the right. Abdomen soft, without bowel sounds. No masses. A PEG tube is noted. Extremities are intact. No cyanosis clubbing or edema. Skin is without rash or lesion. Neurologic examination cannot be assessed as the patient is currently sedated. - Labs CBC & Chem 7: 11/05/21 04:15 11/05/21 04:15 Labs: Abnormal Lab Results - Last 24 Hours (Table) 11/04/21 11/04/21 11/04/21 Range/Units 11:05 11:50 17:34 RBC (3.80-5.40) m/uL Hgb (11.4-16.0) gm/dL Hct (34.0-46.0) % MCHC (31.0-37.0) g/dL RDW (11.5-15.5) % ABG pCO2 (35-45) mmHg ABG pO2 (83-108) mmHg ABG HCO3 (21-25) mmol/L ABG Total CO2 (19-24) mmol/L Carbon Dioxide (22-30) mmol/L BUN (7-17) mg/dL Creatinine (0.52-1.04) mg/dL Glucose (74-99) mg/dL POC Glucose (mg/dL) 181 H 184 H 165 H (75-99) mg/dL 11/04/21 11/05/21 11/05/21 Range/Units 23:15 04:15 04:15 RBC 3.39 L (3.80-5.40) m/uL Hgb 9.3 L (11.4-16.0) gm/dL Hct 31.5 L (34.0-46.0) % MCHC 29.6 L (31.0-37.0) g/dL RDW 15.9 H (11.5-15.5) % ABG pCO2 (35-45) mmHg ABG pO2 (83-108) mmHg ABG HCO3 (21-25) mmol/L ABG Total CO2 (19-24) mmol/L Carbon Dioxide 36 H (22-30) mmol/L BUN 20 H (7-17) mg/dL Creatinine 0.34 L (0.52-1.04) mg/dL Glucose 105 H (74-99) mg/dL POC Glucose (mg/dL) 112 H (75-99) mg/dL 11/05/21 11/05/21 Range/Units 05:07 05:13 RBC (3.80-5.40) m/uL Hgb (11.4-16.0) gm/dL Hct (34.0-46.0) % MCHC (31.0-37.0) g/dL RDW (11.5-15.5) % ABG pCO2 56 H (35-45) mmHg ABG pO2 74 L (83-108) mmHg ABG HCO3 36 H (21-25) mmol/L ABG Total CO2 38 H (19-24) mmol/L Carbon Dioxide (22-30) mmol/L BUN (7-17) mg/dL Creatinine (0.52-1.04) mg/dL Glucose (74-99) mg/dL POC Glucose (mg/dL) 109 H (75-99) mg/dL Assessment and Plan Assessment: Acute hypoxemic respiratory failure secondary to coronavirus associated pneum onia, status post intubation, and mechanical ventilation on 09/25/2021, with tracheostomy and PEG tube placement on 10/14/2021. No evidence of pulmonary embolism on CT angiogram. Acute bilateral pneumothoraces, status post bilateral chest tube placements, on 10/11/2021. Currently, no left-sided chest tube, and 2 chest tubes on the right. Status post bronchoscopy, on 10/16/2021, to reposition the tracheostomy tube. Acute blood loss anemia. New-onset atrial fibrillation, stable. Extensive subcutaneous emphysema, as a complication of mechanical ventilation and coronavirus associated pneumonia. Acute deep vein thrombosis. Mild transaminitis secondary to coronavirus infection. Primary hypercoagulable state in the form of Leiden factor deficiency/factor V deficiency. Nonsustained ventricular tachycardia, resolved. Prior history of DVT. History of fibromyalgia. History of arthritis. History of degenerative disc disease. Lifelong non-tobacco user. Plan: Plan dated 09/24/2021. The patient is not a candidate for REM, and she's had symptoms for more than 7 days. Actually sees, symptoms date back to September 10. 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 The patient does qualify for Decadron. In addition, the patient should be on vitamin C, vitamin D3, and zinc. Additional recommendations and suggestions are forthcoming. Prognosis is guarded. The patient is currently on Levaquin. That may disqualify her from [facility]. Plan dated 09/25/2021. The patient's blood gases suggests worsening respiratory status, and therefore, the patient was transferred down to the intensive care unit. The patient was on saline, at 50 mL an hour. Blood gases again showed a pO2 of only 49, and a pCO2 32, with a pH is 7.42. This is on BiPAP, at 100%. I did speak to her and her about the fact that she may require intubation and mechanical ventilation, before the end of the day. She will continue on Coumadin, as well as Decadron, and vitamins. The patient was placed on Levaquin. Her pro- calcitonin level was elevated. This likely disqualifies her for [facility]. We will continue to follow and make recommendations where appropriate. Prognosis is certainly guarded. Plan dated 09/26/2021. The patient was intubated and mechanically ventilated yesterday. A right radial art line was placed as was a left-sided triple-lumen catheter. The patient's currently sedated and paralyzed. Tube feedings will start today. She did get fluid resuscitation yesterday. She remains on a small dose of norepinephrine. The patient will have labs ordered for the morning including a CBC, basic metabolic profile, and blood gas. The patient remains on Coumadin. In addition, the patient will have a chest x-ray ordered for the morning. Tube feedings will be started today. Prognosis is guarded. We will continue to follow and make recommendations where appropriate. Prognosis is certainly very guarded. Plan dated 10/11/2021. Labs, x-rays, and medications are reviewed. A left-sided chest tube was placed by our team today. In addition, surgery has been consulted for possible tracheostomy and PEG tube placement. The patient remains on propofol, fentanyl, and Nimbex. The patient is on the mechanical ventilator, on 90% FiO2 and PEEP of 16. Additional recommendations and suggestions are forthcoming. Tube feedings are currently going to be placed on hold for possible tracheostomy and PEG tube placement. We will continue to follow and make recommendations where appropriate. Plan dated 10/12/2021. The patient developed bilateral pneumothoraces, and required bilateral chest tube placements, on October 11. There is some bleeding from the left-sided chest tube. The patient did receive vitamin K, fresh shows some plasma, and 4 factor prothrombin complex concentrate. In addition, the patient is going to receive 1 unit of packed red blood cells. I asked the nurse to call the surgeon to delay surgery. I was able to speak to the patient's , Taco. He is going to talk to the rest of the family about CODE STATUS and whether or not they wish to withdrawal of I support. I spoke to him for about 20 minutes on the phone. The patient remains on propofol, fentanyl, Nimbex, and norepinephrine. Prognosis is poor. We will continue to follow and make recommendations where appropriate. Plan dated 10/13/2021. The patient hopefully will proceed to tracheostomy and PEG tube placement. The patient's currently much more stable today than she was yesterday. We did talk to the about CODE STATUS. He has not made any decision as yet. The patient remains on Nimbex, propofol, and fentanyl. The patient is also receiving Cleveprex for elevated blood pressure. We will continue to follow make recommendations where appropriate. Prognosis is guarded. Labs, x-rays, and medications are all reviewed. Plan dated 10/14/2021. The patient should have a tracheostomy and PEG tube placed today. Currently, the patient remains on fentanyl, Nimbex, and propofol. In addition, the patient's on Cleveprex for blood pressure control. The patient's FiO2 was increased from 60% up to 70%, based on the blood gas today. We will continue to follow and make recommendations where appropriate. Labs, x-rays, and medications are all reviewed. Prognosis is guarded. I did speak to the about CODE STATUS. The patient is full code for now. Plan dated 10/15/2021. The patient had a tracheostomy and PEG tube placed on October 14. The patient remains on propofol, Nimbex, and fentanyl. We will attempt to discontinue the Nimbex at possible. The patient is started back on Eliquis, at 5 mg twice a d ay. Currently, we are going to DC Diflucan. There is a small air leak on the right chest tube area chest x-ray does not show any evidence of pneumothorax. She does have bilateral diffuse infiltrates. Currently, the patient is a full code. I did speak to the a couple days ago. Prognosis is guarded. We will continue to follow make recommendations where appropriate. The patient has now been in the hospital for 22 days. Plan dated 10/16/2021. The patient had a tracheostomy tube placed and PEG tube placement on October 14. The patient remains on Nimbex fentanyl and propofol. Interestingly, she does not appear that she is properly paralyzed. We may need to change to different paralytic or change off the ventilator. The patient remains on Cleveprex at 5 mg an hour. The patient's microbiologic studies are negative. Chest x-ray shows no changes. Additional recommendations and suggestions are forthcoming. We will continue to follow make recommendations where appropriate. Culture data as mentioned is negative. The patient is not on any antibiotics. Prognosis is guarded. Plan dated 10/17/2021. The patient had a bronchoscopy performed yesterday, to help reposition the tracheostomy tube. I believe that was up against the wall of the trachea. The patient's exhaled tidal volumes are much lower than that should've been. The patient remains on rocuronium, fentanyl, and propofol. In addition, the patient had a new arterial line placed, in the right radial artery. The other arterial line was not working properly. Culture data thus far negative. The patient is currently not on antibiotics. We will continue to follow and make recommendations where appropriate. Prognosis is guarded. I did speak to the patient's and daughter yesterday. Plan dated 11/05/2021. Currently, the patient seems be about the same today as she was yesterday. Chemical ventilation. Her propofol dose is 10 mcg/kg/m. She is getting tube feedings. She has 2 right-sided chest tube. Because of mental status changes, she had a computed tomography scan of the brain yesterday, which showed no acute abnormality. Her chest x-ray shows a right apical pneumothorax, which is slightly better today than it was yesterday. There is no left-sided chest tube. There are 2 chest tubes on the right. We will continue to follow make recommendations were appropriate. Overall prognosis remains very guarded. I have talked to the family in the past. Time with Patient: Greater than 30
[2021-11-05 12:03] LABS: Glucose,Whole Blood 215 mg/dL (75-99)
[2021-11-05] MEDS: NOREPINEPHRINE 4 MG in SODIUM CHLORIDE 0.9% 250 ML IV SCH (13:24)
[2021-11-05 18:57] LABS: Glucose,Whole Blood 150 mg/dL (75-99)
[2021-11-05] MEDS: ACETAMINOPHEN TAB 500 MG TAB PO PRN (20:11)
[2021-11-05 23:35] LABS: Glucose,Whole Blood 133 mg/dL (75-99)
[2021-11-06] MEDS: INSULIN ASPART (NovoLOG) 100 UNIT/ML VIAL SQ SCH ×4 (00:03→18:12)
--- NOTE | 2021-11-06 00:09 | P.PN ---
Subjective Progress Note Date: 11/05/21 This is a 61-year-old female who was recently admitted with acute COVID-19 pneumonia with acute COVID-19 bilateral interstitial pneumonia and also with transaminitis and being closely monitored. Patient remains in the ICU and currently intubated and sedated with an FiO2 of 70% and PEEP is 18. 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 Patient did have a venous Doppler study done recently which showed left leg DVT and patient is maintained on Eliquis will continue. Patient also continues on empiric antibiotics and awaiting for sputum culture finalized. Patient was started on IV cefepime and will continue. Patient is also continued on oral dexamethasone along with vitamin and zinc supplements and will continue. Patient with some mild volume overload and given a dose of IV Lasix push today. 09/29/2021 Patient is seen and evaluated this morning continues to be closely monitored in the ICU and continues to be on mechanical ventilation and sedated. FiO2 was increased at 80% with a PEEP of 18 and oxygen saturations between 87-91%. Patient developing subcutaneous emphysema in the neck and chest wall area and chest x-ray today shows bilateral multifocal and confluent opacification is redemonstrated consistent with COVID-19 infection with a new small left apical pneumothorax estimated under 5% with new pneumomediastinum and recurrent overlying subcutaneous emphysema noted. Patient is white blood count mildly elevated at 16.1 and is continued on oral dexamethasone along with oral eliquis for anticoagulation. Patient continues to be on IV cefepime and blood and sputum cultures are negative thus far. 09/30/2021 Patient is seen today continues to be closely monitored in the ICU with multiple medical consultations following. Patient continues to be mechanically intubated and sedated with continued subcutaneous emphysema noted. Chest xray shows a trace left apical pneumothorax that is minimally smaller 7mm versus 1cm previously, extensive bilateral subcutaneous emphysema persists and diffuse interstitial changes and bilateral patchy opacities persist with slight improvement in aeration in the lower lungs. Per nursing staff corbin was clogged with copious amounts of white discharge and will add diflucan and corbin catheter has been changed and draining adequately. Patient continues on IV cefepime. Patient tolerating tube feeds and will continue. 10/01/2021 Patient is seen and evaluated in follow up this morning and continues to be closely monitored. Multiple medical consultations following and patient c ontinues to be on mechanical vent and sedated. Patient continues on IV Cefepime and diflucan. Patient chest xray today shows stable extensive subcutaneous emphysema, no pneumothorax, and patchy bilateral lung infiltrates remain present. INflammatory markers trending down. 10/04/2021 Patient is seen in follow-up continues to be closely monitored in the ICU. Patient remains on mechanical vent with an FI02 of 65% and peep is 18. Weaning trials being attempted with pulmonary typewriter ribbon winder following closely. Patient continues with extensive subq emphysema noted on exam. 10/05/2021 Patient Is seen and evaluated this morning with continued attempts at weaning and continues on mechanical vent and intubated with pulmonary typewriter ribbon winder following closely. Patient remains on Eliquis which will be held as surgery Dr. Nelson was consulted for possible PEG and trach tube placement for unsuccessful attempts at weaning from ventilation and prolonged hospitalization on mechanical vent. Chest x-ray today shows recurrent tiny left apical pneumothorax estimated under 5% with worsening overlying subcutaneous emphysema and again pneumomediastinum redemonstrated with multifocal confluent opacification's redemonstrated consistent with COVID-19 infection and/or arts are redemonstrated with no significant change from one day previously. Patient continues on FiO2 of 65% and PEEP was weaned down to 14 today. IV cefepime discontinued. 10/06/2021 Patient is seen in follow-up this morning per nursing staff patient had multiple runs of ectopy an irregular heart rate and rhythms with PVCs and cardiology consulted. Patient was placed on lidocaine drip and was originally on eliquis is currently on hold for possible PEG and trach placement with general surgery following. Patient had difficulty maintaining oxygen saturations and FiO2 was increased to 100% and PEEP continues at 14. Multiple medical consultations following and patient continues on oral steroids along with vitamin and zinc supplements along with fluconazole. Patient being started on IV Lasix daily and recommend close monitoring of electrolytes and kidney functions. 10/07/2021 Patient is seen in follow-up this morning continues to be monitored closely in the ICU with multiple medical consultations following. Patient is currently on mechanical vent with an FiO2 of 80% and PEEP is 16. General surgery also following for possible PEG and trach placement and will need to discuss with surgery about when this will occur. Patient remains on fluconazole. She also continues on vitamin and zinc supplements along with oral dexamethasone, clevidipine, Nimbex, IV Lasix, fentanyl and propofol and is off norepinephrine. Chest x-ray shows stable bilateral lung infiltrates. 10/08/2021 Patient is seen this morning continues to be on mechanical vent with an FiO2 of 85% and PEEP of 16. Patient continues with extensive subcutaneous emphysema and plans are for possible PEG and trach placement although on hold until possibly next week once more stable. Patient continues on Cleviprex along with fentanyl and propofol and is receiving IV Lasix daily. Patient also continues on lidocaine drip which is currently on hold and cardiology is following closely. Anticoagulant was resumed for now again until more stable to undergo PEG and trach placement. Chest x-ray today shows persistent bilateral multifocal and confluent increased opacification is with persistent overlying subcutaneous emphysema noted in pneumomediastinum is again redemonstrated. 10/09/2021 Patient evaluated today in ICU mechanical ventilation with FiO2 of 80%. Chest x-ray this morning shows similar multifocal airspace opacities and stable support lines and tubes. Similar subcutaneous emphysema scattered throughout the visualized thorax. PEG and trach plan for next week once more stable. Current meds include Cleviprex, Nimbex, fentanyl, propofol. She is receiving IV fluconazole, as well as IV Lasix. Levophed and Lidocaine gtt;s are on hold. Positive bowel sounds. Current vitals afebrile, heart rate 71, blood pressure 135/60 and oxygen saturation is 93%. Respirations 30. Labs today, white count 17, hemoglobin 11.6, sodium 139, potassium 3.8, BUN 34, creatinine 0.91, CO2 33, calcium 8.7, ALT 54, albumin 2.8 with blood sugars in the 100s. 10/10/2021 Patient evaluated today in the ICU on the mechanical VENT with fio2 of 100%. Positive bowel movement today, Stage 2 pressure ulcer on coccyx per RN, optifoam ordered. Per RN they were unable to patient as she was desaturating. They're unable to wean Fi02 currently as she does desaturate with any time of movement. She was lying more on her right side during evaluation and pulse ox was dropping into high 80s she was being repositioned by nurses. Plan is to PEG/TRACH patient tomorrow. Last family update was 4 days ago. We will call and discuss case today. Patient is afebrile, heart rate 84, respirations 30, blood pressure 141/55, 92% oxygen saturation on 100% Fi02, which was increased today up from 70 Fi02%. Labs today show WBC of 15.6, hgbl 10.7, sodium 138, potassium 3.9, chloride 100, CO2 37, glucose 117, calcium 8.2. Chest xray today shows pneumonia, ARDS. 10/11/2021 Patient is seen and evaluated in follow-up this morning continues to be closely monitored in the ICU and patient is continued on FiO2 of 90% and PEEP is 16 with multiple medical consultations following. Chest x-ray today shows new left- sided pneumothorax estimated 10-20% with overlying subcutaneous emphysema and pneumomediastinum redemonstrated with bilateral multifocal and confluent op acification's redemonstrated consistent with COVID-19 infection and/or arts and no significant change from one day previous. Patient is status post left chest tube insertion with pulmonary typewriter ribbon winder. Cardiology following and patient is off lidocaine drip and maintaining sinus rhythm. Patient also continues on vitamin and zinc supplements along with oral dexamethasone and patient continues on IV Lasix 40 mg daily. Patient also continues off norepinephrine and is currently maintained on IV cefepime along with fluconazole. General surgery following as well and plan is for peg and trach placement in the am 10/12/2021 Patient is seen in the ICU this morning continues to be closely monitored by multiple medical consultations. Patient was scheduled for PEG and trach placement with general surgery Dr. Nelson today although canceled as patient became hypotensive requiring Levophed along with acute blood loss anemia and hemoglobin dropped to 6.5 this morning requiring 1 unit of PRBC. Patient continues with left chest tube with pneumothorax and chest x-ray today shows the jahaira is difficult to clearly identify on the present exam and the ET tube may be approximately 1 cm from the jahaira and there are bilateral chest tubes present with continued diffuse interstitial opacification is and more focal bibasilar opacification is with subcutaneous emphysema persists along the upper chest with slight improvement on the left. No appreciable pneumothorax noted. Patient having worsening right pleural effusion last night and received a right- sided chest tube with pulmonary typewriter ribbon winder. FiO2 is 90% and PEEP of 16. Again overall prognosis remains extremely poor and guarded. 10/13/2021 Patient is seen in follow-up this morning in the ICU with multiple medical consultations following. Lengthy discussion was had with pulmonary typewriter ribbon winder and family members and would like to continue with full CODE STATUS and plan is in place for PEG tube and tracheostomy placement tomorrow. Anticoagulant on hold and Dr. Nelson plans for surgery tomorrow. Patient continues on oral dexamethasone along with IV cefepime, vitamin and zinc supplements. Patient also continues on Cleviprex and Nimbex. Patient also continues on fentanyl and propofol and will continue. Chest x-ray today shows stable portable chest with bilateral chest tubes without sizable pneumothorax identified and continued subcutaneous air persists with persistent interstitial changes bilaterally with airspace disease in the bilateral lung bases that are unchanged. FiO2 is 60% and PEEP of 16. 10/14/2021 Patient is seen and evaluated in the ICU being closely monitored with multiple medical consultations following. at the bedside today and had detailed discussion with overall prognosis. Plan is to proceed with PEG tube and tracheostomy placement with surgery Dr. Nelson today and anticoagulant continues to be on hold for this procedure. Patient continues on mechanical ventilation with an FiO2 of 70% and PEEP of 16. Chest x-ray today shows improving infiltrate with bibasilar residual and bilateral chest tubes remain present with no pneumothorax evident on either side and again subcutaneous emphysema is noted. 10/15/2021 Patient is seen in the ICU being closely monitored. Patient is status post PEG and trach placement yesterday. Chest x-ray today shows bilateral patchy lung infiltrates greater at the right base with diffuse increased lung markings and bilateral chest tubes remain present and subcutaneous emphysema on the right is diminished. Patient continues with an FI02 of 60 and peep is 16. To resume tube feeds per surgery. Patient continues on norepinephrine and sedation. Patient is receiving IV lasix daily. 10/16/2021 Patient is currently in the MICU and remains on ventilator. Status post tracheostomy and PEG tube placement on 10/14/2021. Patient is sedated and paralyzed. Also on Cleviprex. Chest x-ray showed no acute cardiopulmonary disease with no interval changes. Laboratory data showed WBC 16.9 hemoglobin 8.9 and platelets 278 BUN 19 and creatinine 0.5 and calcium 8.1 patient is being continued on dexamethasone 6 mg daily, Lasix 40 mg IV daily and multivitamins and anticoagulation with Eliquis. Pulmonary and general surgery is on board. 10/17/2021 Patient is in the MICU. Remains on the current ventilator via tracheostomy. Status post tracheostomy and PEG tube placement on 10/14/2021. Sedated and paralyzed and also on fentanyl drip. Currently on assist control with tidal volume of 420, FiO2 80% and PEEP of 16. Respiratory of 30. Chest x-ray showed no interval change in acute cardiopulmonary disease Laboratory data showed WBC 15.8 hemoglobin 8.2 and platelets 271 Sodium 136 potassium 3.1 chloride 100 bicarb is 32 BUN 21 creatinine 0.48 and albumin 2.3 Patient is being continued on Lasix IV, dexamethasone and anticoagulation with Eliquis. 10/18/2021 Patient is seen in follow-up and continues in the ICU with multiple medical consultations following. Patient continues on mechanical vent with an FI02 of 70% and peep is 16. Chest xray shows overall stable exam with interstitial changes and bilateral patchy infiltrates with right greater than left and greater at the bases with bilateral chest tubes noted. no appreciable pneumothorax. Patient continues on propofol and fentanyl along with cleviprex and rocuronium. Eliquis has been resumed. Potassium is 3.3 and will be replaced per protocol. Patient also continues to receive IV lasix daily. 10/19/2021 Patient is seen this morning and continues to be in the ICU with multiple medical consultations following. Patient continues with bilateral chest tubes and remains on mechanical ventilation with an FiO2 of 65% and PEEP is 16. Chest x-ray today shows Bilateral multifocal and confluent opacification greatest in the lower lungs consistent with COVID-19 infection and/or ARDS all redemon strated with no significant change from one day earlier and continued bilateral chest tubes without pneumothorax redemonstrated. 10/20/2021 Patient continues to be in the ICU under close critical monitoring with multiple medical consultations following. Patient continues with bilateral chest tubes although per nursing staff may possibly discontinued today. Chest x-ray today shows stable portable chest with no change in scattered mixed interstitial and alveolar infiltrates. Patient remains on mechanical ventilation via tracheostomy with an FiO2 of 55% and PEEP is 15. Patient continues on Cleviprex along with rocuronium and sedation. 10/21/2021 Patient continues in the MICU being closely monitored. Chest tubes were removed today and chest xray stable with interstitial changes and basilar ground glass, that is similar to previous with slight improvement. Patient continues on mechanical vent with an FI02 of 70% and peep is 14. Patient remains sedated and per nursing staff working on weaning paralytics. Patient continued on rocuronium. Patient is tolerating tube feeds and also continues on IV lasix daily with generalized edema noted throughout. 10/22/2021 Patient is currently MICU. Patient was taken off paralytic and chest tubes yesterday. Continued on pressure support with PEEP of 13. 88 this morning patient again desaturated. Patient became hypotensive and patient was started on norepinephrine. Chest x-ray showed large pneumothorax on the right. Right chest tube was reinserted. Patient is on pressure control. Remains sedated and mechanically ventilated. Laboratory data showed WBC 13.7 hemoglobin 7.7 and platelets 314 Sodium 140 potassium 3.0 chloride 102 bicarb is 37 BUN 19 and creatinine 0.44 and calcium 8.1 Patient is being continued dexamethasone multivitamins and anticoagulation with Eliquis. Patient is also on IV Lasix. Potassium will be replaced. 10/23/2021 Patient is currently MICU. Patient is on mechanical ventilator via trach tube. Patient developed right-sided tension pneumothorax. Again patient had issues with pneumothorax around 10 PM yesterday. Chest tube has to be replaced. Patient is also requiring pressor support. Off pressors this morning. On pressure support. PEEP of 13 and FiO2 100%. Laboratory data showed WBC 13.7 hemoglobin 7.7 and platelets 314 Sodium 140 potassium 3.0 chloride 102 bicarb is 37 BUN 19 and creatinine 0.44 and calcium 8.1 cultures have been negative. Patient is being current on dexamethasone, Eliquis and also IV Lasix 40 mg daily. 10/24/2021 Patient is currently in the MICU. Currently on mechanical ventilator via tracheal tube. Continue propofol and fentanyl. Remains pressure support with PEEP of 13 FiO2 reduced to 70%. Chest x-ray showed bilateral multifocal and confluent opacities consistent with COVID-19 infection and ARDS are redemonstrated and stable. Right-sided chest tube with small apical pneumothorax estimated 10 to 15% improved from 1 day earlier. Pneumo mediastinum noted. Laboratory data showed WBC 14.2 hemoglobin 7.1 and platelets 317 Sodium 140 potassium 3.2 chloride 104 bicarb is 38 BUN 20 and creatinine 0.46 and calcium 7.8. Patient is being continued on dexamethasone, Eliquis and also on IV Lasix. Currently on multivitamins. 10/25/2021 Patient is seen this morning continues to be in the ICU with close monitoring. Patient continues on mechanical vent via tracheostomy and FiO2 of 65% with a PEEP of 13. Chest x-ray this morning shows right-sided chest tube in place with continued small to moderate right sided pneumothorax slightly smaller in the interval, apical component measuring 2.3 cm versus 2.8 cm previously along with interstitial opacities persist in pneumonitis versus mild pulmonary edema, status post right side thoravent place this morning with pulmonary typewriter ribbon winder showing resolution of the apical and lateral components of the pneumothorax and 5 mm basilar components remain. Patient requiring more oxygen supplementation and FiO2 being increased to 75%. Hemoglobin found to be 6.3 and awaiting to receive a unit of PRBC. Patient also continues on Nimbex along with Cleviprex, oral dexamethasone, vitamin and zinc supplements along with oral eliquis, along with fentanyl and propofol for sedation. 10/26/2021 Patient is seen in follow-up today continues on mechanical ventilation with an FiO2 of 75% which is currently titrating down to 65% per nursing staff with an FiO2 of 13. Patient continues on Cleviprex and Nimbex and attempts at weaning although not tolerating well. Patient also continues on fentanyl and propofol for sedation. Chest x-ray today shows a right-sided thoracic vent and chest to both present and overlying appropriate positions with minimal right-sided apical pneumothorax present and persistent bilateral interstitial groundglass opacities noted with no evident pleural effusion to correlate for pneumonia. Hemoglobin improved to 8.7 today after 1 unit of PRBC. Will continue to monitor closely. 10/27/2021 Patient is seen today continues to be closely monitored in the ICU on mechanical vent via tracheostomy with an FiO2 of 70% and PEEP is 13. Patient continues on IV Lasix daily along with propofol and fentanyl for sedation. Patient also continues to be on Cleviprex as blood pressure is elevated. Per nursing staff attempts at weaning some sedation although patient not tolerating well. Patient continues with chest tubes on the right and there is an air leak noted and also continues with thoravent on the right. Chest x-ray today shows enlarging right- sided pneumothorax estimated at 15% with no significant change in interstitial infiltrate seen bilaterally. 10/28/2021 Patient is seen in the ICU this morning continues on mechanical ventilation with a FI02 of 85% and peep is 13. Patient continues on propofol for sedation along with Nimbex and also patient is on norepinephrine with hypotension at times. Chest xray today shows continued diffuse interstitial infiltrates with continued right side pneumothorax slightly larger in the interval, apical component measu ring 1.9cm versus 1.5. Potassium was found to be 3.0 and being replaced. 10/29/2021 Patient is seen and evaluated today and continues to be closely monitored in the ICU. Multiple medical consultations following. Patient continues on mechanical ventilation via tracheostomy and also PEG tube with tube feedings and tolerating. FiO2 is currently 60% with a PEEP of 14. Cleviprex is currently off and patient continues on decreased doses of sedation. Patient also continues on IV Levaquin and will continue. Patient is currently off of Levophed and Nimbex. Patient was continued on 40 mg of Lasix daily which is currently being increased to twice daily and will continue to monitor closely. Patient's potassium was found to be 2.8 today and being replaced per protocol. Chest x-ray this morning showed a continued right-sided pneumothorax increasing in size currently estimated at 40% and emergent chest tube placement on the right was performed by pulmonary typewriter ribbon winder and subsequent removal of right side thoravent. Repeat chest x-ray showed a diminished right sided pneumothorax on the right and increasing diffuse infiltrates greater on the right. 10/30/21 This patient is still on the vent. Vent settings are noted. The patient continues to be unresponsive. Blood pressure is fluctuating. Dr. Alejandro is following the patient closely. Family updated. Prognosis guarded. Brad morrison. See orders for further details. 10/31/2021 This patient remains to be on the vent. The patient has significant difficulties in weaning off from the vent. The pneumothorax on the right seemed to be little improving. Patient has chest tubes in situ. Patient also developed atrial fibrillation faster [place]. The patient is mechanically intubated. Cardizem initiated. Cardiology is consulted. Dr. Alejandro is following the patient closely. The family at the bedside updated about the prognosis. Review of systems: Unable to obtain as patient is mechanically intubated and sedated 11/01/2021 She continues in the ICU on mechanical vent via tracheostomy and FiO2 is currently 70% with a PEEP of 14. Currently working on transitioning to metoprolol multiple medical consultations following. Patient continues with right-sided chest tubes and cardiology also following and patient is t ransitioned to oral Cardizem along with metoprolol. 2-D echo shows mild concentric left ventricular hypertrophy with overall LV systolic function normal with an EF of 55-60% and also noted to have some free space that may represent effusion or a pericardial fat pad. Chest x-ray today shows interval increase in size of small right-sided pneumothorax apical component 2.3 cm versus 1.8 cm previously and a lateral basilar component is now seen measuring 5 mm with 2 chest tubes continuing and also similar diffuse patchy interstitial opacification persist. 11/02/2021 Patient continues in the MICU on mechanical ventilation and FI02 is 55% with a peep of 14. Continued attempts at weaning sedatives to assess mentation and using dilaudid as needed to control sedation. Cardiology following and patient continues in sinus rhythym currently with oral cardizem and metoprolol. Patient has completed the antibiotic course of Levaquin and is being discontinued. Chest xray shows stable right upper lung pneumothorax with 2 chest tubes that will remain. Persistent patchy and confluent increase opacities redemonstrated. Patient will be given a dose of lasix today. Patient is afebrile. 11/03/2021 Patient is seen in follow-up this morning and continues to be closely monitored in the ICU with multiple medical consultations following. Per nursing staff working on weaning sedation and is currently off propofol to assess and no responses noted and patient is not following commands. FiO2 titrated down to 45% with a PEEP of 14 and currently on Precedex for hypertension. Chest xray shows stable scattered interstitial and alveolar infiltrates throughout both lung patterson that persist and are unchanged. Potassium is low at 3.3 and will replace per protocol and recommend repeat labs. 11/04/2021 Patient is seen and evaluated today and continues to be in critical condition. Continued right chest tubes x2 and chest xray today shows some increase in size of the pneumothorax on the right. Patient is off sedation since yesterday and does not respond to commands only painful stimuli. CT brain ordered and pending. Patient currently on precidex and having multiple issues with blood pressure. Code status was changed to no code by family today. Patient continues on vent and FI02 is 50% with a peep of 14. Overall prognosis is extremely poor and guarded. 11/05/2021 Patient continues in the ICU being closely monitored. Fi02 is 50% with a peep of 14. Patient also continues with 2 right side chest tubes with chest xray showing possible slight improvement in the size of right side pneumothorax and otherwise stable chest. Patient continues on eliquis along with oral prednisone and vitamin and zinc supplements. Patient is off propofol and not following commands. CT brain was negative yesterday. Review of systems: Unable to obtain as patient is mechanically intubated and sedated Active Medications Acetaminophen (Acetaminophen Tab 500 Mg Tab) 1,000 mg PO Q6HR PRN PRN Reason: Fever and/ or Pain Last Admin: 11/05/21 20:11 Dose: 1,000 mg Documented by: Amlodipine Besylate (Amlodipine 10 Mg Tab) 10 mg PO DAILY [facility] Last Admin: 11/05/21 07:57 Dose: 10 mg Documented by: Apixaban (Apixaban 5 Mg Tab) 5 mg PO BID [facility]; Protocol Last Admin: 11/05/21 20:12 Dose: 5 mg Documented by: Artificial Tears (Artificial Tears-Hypromellose Drops 15 Ml Btl) 2 drops BOTH EYES QID [facility] Last Admin: 11/05/21 22:29 Dose: 2 drops Documented by: Ascorbic Acid (Ascorbic Acid 500 Mg Tab) 500 mg PO BID [facility] Last Admin: 11/05/21 20:12 Dose: 500 mg Documented by: Diltiazem HCl (Diltiazem Oral 30 Mg Tab) 30 mg PO QID [facility] Last Admin: 11/05/21 22:31 Dose: 30 mg Documented by: Docusate Sodium (Docusate Oral Soln 100 Mg/10 Ml Cup) 100 mg PO DAILY PRN PRN Reason: Constipation Last Admin: 10/18/21 15:53 Dose: 100 mg Documented by: Ergocalciferol (Ergocalciferol 1,250 Mcg (50,000 Iu) Capsule) 1,250 mcg PO MORRIS [facility] Last Admin: 10/31/21 08:21 Dose: 1,250 mcg Documented by: Hydromorphone HCl (Hydromorphone 1 Mg/Ml 1 Ml Syringe) 1 mg IVP Q3H PRN PRN Reason: Pain Last Admin: 11/05/21 20:31 Dose: 1 mg Documented by: Sodium Chloride (Saline 0.9%) 1,000 mls @ 50 mls/hr IV .Q20H [facility] Last Admin: 11/05/21 20:13 Dose: 50 mls/hr Documented by: Clevidipine 25 mg/ IV Solution 50 mls @ 2 mls/hr IV .Q24H [facility]; Protocol Last Admin: 11/05/21 08:15 Dose: Not Given Documented by: Propofol 1,000 mg/ IV Solution 100 mls @ 0 mls/hr IV .Q0M [facility]; Protocol Last Titration: 11/05/21 20:50 Dose: 0 mcg/kg/min, 0 mls/hr Documented by: Norepinephrine Bitartrate 4 mg (/ Sodium Chloride) 254 mls @ 17.031 mls/hr IV .[id number] [facility]; Protocol Last Admin: 11/05/21 13:24 Dose: Not Given Documented by: Insulin Aspart (Insulin Aspart (Novolog) 100 Unit/Ml Vial) 0 unit SQ Q6HR [facility]; Protocol Last Admin: 11/05/21 19:00 Dose: 1 unit Documented by: Losartan Potassium (Losartan 25 Mg Tab) 12.5 mg PO DAILY [facility] Last Admin: 11/05/21 07:57 Dose: 12.5 mg Documented by: Metoprolol Tartrate (Metoprolol Tartrate 50 Mg Tab) 50 mg PO BID [facility] Last Admin: 11/05/21 20:12 Dose: 50 mg Documented by: Miscellaneous Information (Pneumonia Protocol Utilized 1 Each Misc) 1 each PO ONCE PRN PRN Reason: Per Protocol Miscellaneous Information (Potassium Replacement Protocol 1 Each Misc) 1 each MISCELLANE DAILY PRN; Protocol PRN Reason: Per Protocol Naloxone HCl (Naloxone 0.4 Mg/Ml 1 Ml Vial) 0.2 mg IV Q2M PRN PRN Reason: Opioid Reversal Nystatin (Nystatin 100,000 Unit/Ml Susp 500,000 Unit/5 Ml Cup) 500,000 unit PO QID [facility] Last Admin: 11/05/21 22:29 Dose: 500,000 unit Documented by: Pantoprazole Sodium (Pantoprazole 40 Mg/10 Ml Vial) 40 mg IV DAILY [facility] Last Admin: 11/05/21 07:57 Dose: 40 mg Documented by: Potassium Bicarbonate (Potassium Bicarbonate/Cit Ac 20 Meq Tablet.Eff) 20 meq PO TID [facility] Last Admin: 11/05/21 22:31 Dose: 20 meq Documented by: Prednisone (Prednisone 20 Mg Tab) 60 mg PO DAILY [facility] Last Admin: 11/05/21 07:56 Dose: 60 mg Documented by: Quetiapine Fumarate (Quetiapine 50 Mg Tab) 50 mg PO BID [facility] Last Admin: 11/05/21 20:13 Dose: 50 mg Documented by: Zinc Sulfate (Zinc Sulfate 220 Mg Cap) 220 mg PO DAILY [facility] Last Admin: 11/05/21 07:58 Dose: 220 mg Documented by: Physical Exam: Gen: This is a 61-year-old female currently sedated and intubated. mechanical ventilation Fio2 50% with a PEEP of 14. HEENT: Head is atraumatic, normocephalic. Pupils equal, round. Sclerae is anicteric. tracheostomy noted NECK: Supple. No JVD. No lymphadenopathy. No thyromegaly. tracheostomy noted LUNGS: Diminished breath sounds bilaterally with coarse rhonchi and crackles noted. No intercostal retractions. Right side chest tubes noted, tachypneic HEART: S1, S2 are muffled ABDOMEN: Soft. Obese. Bowel sounds are present. No masses. No tenderness. peg tube noted. EXTREMITIES: No pedal edema. No calf tenderness. generalized edema noted NEUROLOGICAL: Patient is currently intubated and off sedation not following commands and is comatose Assessment: Acute COVID-19 infection with acute COVID-19 bilateral interstitial pneumonia with hypoxic hypercarbic respiratory failure on mechanical vent status post trach and peg tube placement on 10/14/2021 Worsening right side pneumothorax status post chest tube placement and thoravent removal on 10/29/2021 bilateral pneumothoraces with chest tube placement and status post removal of chest tubes 2.3.2021 Atrial fibrillation, new onset, currently rate controlled on metoprolol and cardizem Non-sustained ventricular tachycardia, currently sinus Acute left leg deep vein thrombosis Primary hypercoagulable state and factor V deficiency Obesity with a body mass index of 36.0 DVT prophylaxis: on Eliquis No code Plan: Recommend to continue with current medications and follow along closely with multiple medical consultations. Prognosis remains extremely guarded with multiple complex medical issues noted. Patient continues on mechanical ventilation via tracheostomy and FiO2 50% with PEEP of 14. Recommend to continue with current medications. Patient is currently off propofol and off Precidex. CT brain done showing no acute process. Chest x-ray as mentioned previously and continued with right-sided chest tubes. Recommend repeat labs and chest x-ray in a.m. and continued close monitoring. Code status was recently changed by family to NO CODE although would like to continue care. Again due to multiple complex medical issues overall prognosis is extremely poor and quite guarded. The impression and plan of care has been dictated by Carla Schmidt, nurse practitioner as directed. MD Nicole I have performed a history and examination and MDM of this patient, discussed the same with the dictator, and agree with the dictator's assessment and plan as written ,documented as a scribe. Based on total visit time, I have performed more than 50% of the visit. Any additional findings or plans will be noted. Objective - Vital Signs Vital signs: Vital Signs Temp 99 F 11/05/21 08:00 Pulse 93 11/05/21 09:00 Resp 35 H 11/05/21 09:00 BP 134/72 11/05/21 08:00 Pulse Ox 91 L 11/05/21 09:00 Intake & Output 11/04/21 11/05/21 11/05/21 18:59 06:59 18:59 Intake Total 586 1027.204 299 Output Total 620 625 55 Balance -34 402.204 244 Weight 90.5 kg 86.5 kg Intake: IV 276 606 159 0.9 Normal Saline @ 20mL/ 240 570 50 hr Sodium Chloride 0.9% 1, 100 000 ml @ 50 mls/hr IV . Q20H [facility] Rx#:[id number] pressure bag 36 36 9 Intake, IV Titration 21.204 0 Amount propofoL 1,000 mg In 21.204 0 Empty Bag 1 bag @ Titrate IV .Q0M [facility] Rx#: [id number] Tube Feeding 120 310 110 Other 190 90 30 Output: Chest Tube Drainage 85 Chest Tube Right 50 Chest Tube Right Pleural 35 Urine 620 540 55 Other: Voiding Method Indwelling Catheter Indwelling Catheter # Bowel Movements 1 ABP, PAP, CO, CI - Last Documented Arterial Blood Pressure 126/50 - Labs CBC & Chem 7: 11/05/21 04:15 11/05/21 04:15 Labs: Abnormal Lab Results - Last 24 Hours (Table) 11/04/21 11/04/21 11/04/21 Range/Units 11:05 11:50 17:34 RBC (3.80-5.40) m/uL Hgb (11.4-16.0) gm/dL Hct (34.0-46.0) % MCHC (31.0-37.0) g/dL RDW (11.5-15.5) % ABG pCO2 (35-45) mmHg ABG pO2 (83-108) mmHg ABG HCO3 (21-25) mmol/L ABG Total CO2 (19-24) mmol/L Carbon Dioxide (22-30) mmol/L BUN (7-17) mg/dL Creatinine (0.52-1.04) mg/dL Glucose (74-99) mg/dL POC Glucose (mg/dL) 181 H 184 H 165 H (75-99) mg/dL 11/04/21 11/05/21 11/05/21 Range/Units 23:15 04:15 04:15 RBC 3.39 L (3.80-5.40) m/uL Hgb 9.3 L (11.4-16.0) gm/dL Hct 31.5 L (34.0-46.0) % MCHC 29.6 L (31.0-37.0) g/dL RDW 15.9 H (11.5-15.5) % ABG pCO2 (35-45) mmHg ABG pO2 (83-108) mmHg ABG HCO3 (21-25) mmol/L ABG Total CO2 (19-24) mmol/L Carbon Dioxide 36 H (22-30) mmol/L BUN 20 H (7-17) mg/dL Creatinine 0.34 L (0.52-1.04) mg/dL Glucose 105 H (74-99) mg/dL POC Glucose (mg/dL) 112 H (75-99) mg/dL 11/05/21 11/05/21 Range/Units 05:07 05:13 RBC (3.80-5.40) m/uL Hgb (11.4-16.0) gm/dL Hct (34.0-46.0) % MCHC (31.0-37.0) g/dL RDW (11.5-15.5) % ABG pCO2 56 H (35-45) mmHg ABG pO2 74 L (83-108) mmHg ABG HCO3 36 H (21-25) mmol/L ABG Total CO2 38 H (19-24) mmol/L Carbon Dioxide (22-30) mmol/L BUN (7-17) mg/dL Creatinine (0.52-1.04) mg/dL Glucose (74-99) mg/dL POC Glucose (mg/dL) 109 H (75-99) mg/dL
[2021-11-06] MEDS: HYDROmorphone 1 MG/ML 1 ML SYRINGE IVP PRN ×8 (00:50→23:14)
[2021-11-06] MEDS: NOREPINEPHRINE 4 MG in SODIUM CHLORIDE 0.9% 250 ML IV SCH ×2 (04:50→19:47)
[2021-11-06 05:29] LABS: African American GFR (CKD) >90 (>60 ml/min/1.73 sqM); Anion Gap 0 mmol/L; Blood Urea Nitrogen 23 mg/dL (7-17); Calcium 8.6 mg/dL (8.4-10.2); Carbon Dioxide 34 mmol/L (22-30); Chloride 105 mmol/L (98-107); Glucose 103 mg/dL (74-99); Non-African American GFR(CKD) >90 (>60 ml/min/1.73 sqM); Potassium 3.6 mmol/L (3.5-5.1); Sodium 139 mmol/L (137-145)
[2021-11-06 05:34] LABS: Glucose,Whole Blood 112 mg/dL (75-99)
[2021-11-06 05:34] LABS: Anisocytosis Slight; Basophils # (A) 0.1 k/uL (0-0.2); Basophils % (A) 1 %; Eosinophils # (A) 0.2 k/uL (0-0.7); Eosinophils % (A) 1 %; HCT 29.1 % (34.0-46.0); Hypochromasia Marked; Lymphocytes # (A) 3.1 k/uL (1.0-4.8); Lymphocytes % (A) 21 %; MCH 28.2 pg (25.0-35.0); MCHC 30.8 g/dL (31.0-37.0); MCV 91.4 fL (80.0-100.0); Mean Platelet Volume 8.6; Monocytes # (A) 0.8 k/uL (0-1.0); Monocytes % (A) 6 %; Neutrophils # (A) 10.1 k/uL (1.3-7.7); Neutrophils % (A) 70 %; Platelet Count 409 k/uL (150-450); RBC 3.19 m/uL (3.80-5.40); RDW 16.1 % (11.5-15.5); WBC 14.4 k/uL (3.8-10.6)
[2021-11-06 05:34] LABS: ABG Base Excess 11.6 mmol/L; ABG HCO3 35 mmol/L (21-25); ABG Oxygen Saturation 91.1 % (94-97); ABG PCO2 44 mmHg (35-45); ABG TCO2 36 mmol/L (19-24); Allen Test Performed? Yes
[2021-11-06 05:37] LABS: ABG PO2 57 mmHg (83-108)
--- NOTE | 2021-11-06 08:14 | XR ---
EXAMINATION TYPE: XR chest 1V portable DATE OF EXAM: 11/06/2021 COMPARISON: 11/05/2021 HISTORY: 61 years Female. STUDY INDICATION GIVEN: covid . TECHNIQUE: AP chest radiograph IMPRESSION: There are 2 chest tubes on the right which are stable in positioning. Tracheostomy is again seen. Right upper extremity PICC appears retracted in the interval now terminating at the junction of the i nnominate vein and SVC. Size of right small pneumothorax appears increased. There is trace right pleural effusion. No pleural effusion seen on the left. The heart size is normal. Mild diffuse interstitial edema is not significantly changed. Left lower lobe opacities may be reflec tive of atelectasis or consolidation, no significant change.
[2021-11-06] MEDS: ZINC SULFATE 220 MG CAP PO SCH (08:41)
[2021-11-06] MEDS: PANTOPRAZOLE 40 MG/10 ML VIAL IV SCH (08:41)
[2021-11-06] MEDS: predniSONE 20 MG TAB PO SCH (08:41)
[2021-11-06] MEDS: LOSARTAN 25 MG TAB PO SCH (08:42)
[2021-11-06] MEDS: DILTIAZEM ORAL 30 MG TAB PO SCH ×4 (08:43→20:36)
[2021-11-06] MEDS: APIXABAN 5 MG TAB PO SCH ×2 (08:43→20:36)
[2021-11-06] MEDS: METOPROLOL TARTRATE 50 MG TAB PO SCH ×2 (08:43→20:36)
[2021-11-06] MEDS: POTASSIUM BICARBONATE/CIT AC 20 MEQ TABLET.EFF PO SCH ×3 (08:44→20:36)
[2021-11-06] MEDS: amLODIPine 10 MG TAB PO SCH (08:44)
[2021-11-06] MEDS: ASCORBIC ACID 500 MG TAB PO SCH ×2 (08:44→20:36)
[2021-11-06] MEDS: QUEtiapine 50 MG TAB PO SCH ×2 (08:44→20:36)
[2021-11-06] MEDS: ARTIFICIAL TEARS-HYPROMELLOSE DROPS 15 ML BTL BOTH EYES SCH (08:45)
[2021-11-06] MEDS: NYSTATIN 100,000 UNIT/ML SUSP 500,000 UNIT/5 ML CUP PO SCH ×4 (08:45→20:36)
[2021-11-06] MEDS: CLEVIDIPINE BUTYRATE 25 MG in EMPTY BAG 1 BAG IV SCH (09:44)
--- NOTE | 2021-11-06 11:22 | P.PN ---
Subjective Progress Note Date: 11/06/21 Principal diagnosis: Hypoxemic respiratory failure. Pulmonary consult dated 09/24/2021. 61-year-old female who states that she's been having symptoms, since September 10. The symptoms included shortness of breath, cough, fatigue, muscle aches, and generally just not feeling well. The patient is on vaccinated. She tested positive for coronavirus on September 23. Currently, she is on BiPAP with settings of 16/8, at 100%. Her primary care physician is Dr. Dionte Bal. The patient takes Coumadin chronically for her factor V or Leiden factor deficiency. Initially, on room air, her saturations were in the 70s, and on a nonrebreather, only got up into the mid 80s. In addition to the primary hypercoagulable state, she has a history of DVT, fibromyalgia, pneumonia, arthritis, and degenerative disc disease. She is a lifelong nonsmoker. She is getting saline at 50 mL an hour currently. White count 12.1, with a normal hemoglobin, hematocrit, and platelet count. PTT 24.2 INR 2.5, and d-dimer was 32.13. Sodium 1:30, potassium 3.1, chlorides 106, CO2 20, anion gap 12, BUN 47, and creatinine 1.5. Lactic acid was 1.5. AST was 95 with an ALT of 60. Pro-calcitonin level was 0.52. N-terminal proBNP is 259. Chest x-ray reveals diffuse bilateral infiltrates. CT angiogram was negative for pulmonary embolism, but did show diffuse infiltrates consistent with coronavirus pneumonia. Progress note dated 09/25/2021. 62-year-old female that I saw yesterday in consultation. She's been having coronavirus symptoms since September 10. The patient sees Dr. Dionte Bal as a primary. Yesterday, she was on BiPAP, at 16/8 and 100%. She was doing okay. Today, her saturations are quite low, she is much more tachypnea, and I decided to go ahead and move her to the ICU. The patient may require intubation and mechanical ventilation before the end of the day. CT angiogram was negative for pulmonary embolism. I did speak to her daughter, and her . White count 17.1, hemoglobin 11.9, hematocrit 37.5, platelet count 390,000. PTT is 33.3 INR is 3.5. Blood gases done on 100% show pO2 of only 49, pCO2 32, and a pH is 7.42. Sodium is 142, potassium 3.7, chlorides 113, CO2 21, anion gap 8, BUN 35, with a creatinine of 1.01. Progress note dated 09/26/2021. 62-year-old female, who was admitted with a diagnosis of hypoxemic respiratory failure secondary to coronavirus associated pneumonia. She's had coronavirus symptoms since September 10. Yesterday, she was transferred down to the intensive care unit for worsening respiratory status, and required intubation and mechanical ventilation. In addition, she had a central line placed and an arterial line placed yesterday. She remains on the ventilator, she is on the volume assist control mode, rate 26, tidal volume 400, FiO2 100%, and PEEP of 15. Arterial blood gases show pO2 of 82, pCO2 46, and a pH is 7.27. The patient's getting saline at 50 mL an hour, Nimbex at 1 mcg/kg/m, propofol at 50 mcg/kg/m, and norepinephrine at 2 mcg/m. Tube feedings have yet to be started. Chest x-ray shows a properly placed endotracheal tube, and diffuse bilateral infiltrates, which are essentially unchanged. White count 14.4, hemoglobin 10.5, hematocrit 32.4, and platelet count 250,000. PTT 34.5 with an INR 3.6. Sodium 143, potassium 4, chlorides 118, CO2 22, anion gap 3, BUN 27, and creatinine 0.95. LDH is 930. C-reactive protein is 16.2. CT angiogram was negative for pulmonary embolism. Reevaluated today on 10/08/21, patient remains in the ICU, intubated, mechanically ventilated, does not seem to be doing much better today. Patient is basically about the same, remains on assist control rate of 30 tidal volume 325 FiO2 is up to 85% PEEP remains at 16. Try to increase the PEEP, however there was a significant increase in her peak airway pressure and plateau pressure. Presently her peak airway pressure is 38, and plateau pressure is 34. Patient remains on propofol at 40 mcg/kg/m Nimbex of 0.5 but granted kilo per minute fentanyl 1 mcg/kg/h clevidipine 5 mg per hour. Chest x-ray is basically about the same, continues to show bilateral infiltrates and most likely underlying ARDS. Her labs showed WBC count of 13.0 hemoglobin 10.4. Electrolytes are normal renal profile is normal. ABG showed a pO2 of 61 pCO2 57 pH of 7.47. This was on 75%, and increase her FiO2 to 80% O2 saturation seems to be marginal on the monitor. Patient is off lidocaine drip today. Reevaluated today on 10/09/21, patient remains in the ICU, intubated and mechanically ventilated. Not much of the changes noted in the last few days, remains on assist control rate of 11/18/2024 FiO2 80% and PEEP of 16. ABG remains marginal, her pO2 is 62 pCO2 56 pH of 7.42. Patient remains on Nimbex at 3 mcg/kg/m fentanyl 1 mcg/kg/h propofol 40 mcg/kg/m, she is on clevidipine for milligrams per hour, IV fluids at KVO. Her WBC count is 17.1, and hemoglobin is 11.6. Electrolytes are normal and renal profile is normal. Chest x-ray continues to show multifocalopacities. And subcutaneous emphysema. No evidence of pneumothorax. Endotracheal tube, nasogastric tube and left central line are all in proper positions. Reevaluated today on 10/10/21, patient remains in the ICU, intubated and mechanically ventilated. She is presently on assist control rate of 30 tidal volume 325 FiO2 70% PEEP of 16. Her ABG showed a pO2 of 79 pCO2 48 pH of 7.50. Chest x-ray is basically showing no change. Continues to have bilateral infiltrates. Electrolytes are normal bicarb is 37 BUN is 35 creatinine 0.69 WBC count is 15.6 hemoglobin is 10.7. Patient remains on vital HPI 10 mL per hour. She is off level Prax, and her blood pressure seems to be relatively stable. Patient remains sedated and paralyzed, she is on propofol at 50 mcg/kg/m Nimbex at 3 mcg/kg/m fentanyl 12 mcg/kg/h, she is supposed to undergo tracheostomy and PEG tube placement next week, her Eliquis was restarted, needs to be placed on hold once the decision was made whether she is undergoing tracheostomy and PEG tube tomorrow by Dr. balbuena Progress note dated 10/11/2021. 61-year-old female admitted back on September 23. She came in with a diagnosis of coronavirus associated pneumonia. She came to the intensive care unit on the , and was intubated for respiratory failure on 09/25/2021. The patient remains on mechanical ventilator. The patient's on the volume assist control mode, rate 30, tidal volume 325, FiO2 90%, PEEP of 16. Blood gases show pO2 of 62, pCO2 of 51, and a pH is 7.47. The patient's getting saline at 20 mL an hour, propofol at 40 mcg/kg/m, fentanyl at 1 mcg/kg/h, Nimbex at 3 mcg/kg/m, and vital high protein at 10 mL an hour, which is goal. The patient's chest x-ray showed a left-sided pneumothorax, about 20-25%. A #28-Syriac chest tube was inserted today. Also, a fresh arterial line was placed today, and the left radial artery. White count 16.5, hemoglobin 10.6, hematocrit 34.5, platelet count 2 48,000. Sodium 136, potassium 3.6, chlorides 99, CO2 36, anion gap 1, BUN 32, with a creatinine 0.7. Microbiologic studies are all negative. Chest x-ray shows a very properly placed left-sided chest tube, with complete resolution of prior left-sided pneumothorax. Progress note dated 10/12/2021. 61-year-old female admitted back on 09/23/2021. She came in with a diagnosis of coronavirus associated pneumonia. The patient came to the intensive care unit on 09/25/2021, and was intubated on 09/25/2021 for worsening respiratory status. The patient remains on the mechanical ventilator. The patient was to have a tracheostomy and PEG tube placed today, but unfortunately, her hospital course is now been complicated by bilateral pneumothorax, requiring bilateral chest tube placements on October 11, and bleeding from the left chest tube site, since yesterday. That is despite the fact that the patient received fresh frozen plasma, vitamin K, and 4 factor prothrombin complex concentrate. Currently, the patient remains on the volume assist control, rate 30, tidal volume 325, FiO2 90%, and PEEP of 16. Blood gases show pO2 of 74, pCO2 of 58, and a pH is 7.41. The patient's on saline at KVO, propofol at 40 mics per kilogram per minute, Nimbex at 3 mcg/kg/m, fentanyl at 1 mcg/kg/h, norepinephrine at 2 mcg/m, and tube feeds are currently on hold. I did order 1 unit packed red blood cells. I told the nurse to call the physician, they canceled the anticipated surgery today. I was able to speak to the patient's , Taco, at [phone]. He was going to talk to the family about CODE STATUS, and possibly withdrawing life support. White count 17.3, hemoglobin 6.5, down from 10.1, hematocrit 20.4, and platelet count 194,000. PT 10.6 INR 1 PTT fibrinogen 326, and d-dimer is 0.92. Sodium 138, potassium 3.6, chlorides 101, CO2 36, anion gap 1, BUN 30, creatinine 0.69. Sputum is negative. Blood cultures are negative. Chest x-ray shows bilateral chest tubes, without pneumothorax, and diffuse patchy bilateral infiltrates. Progress note dated 10/13/2021. 61-year-old female, admitted back on 09/23/2021. She was admitted with a diagnosis of coronavirus associated pneumonia. He came to the intensive care unit on 09/25/2021, and was intubated on the same day for worsening respiratory status. She remains on mechanical ventilator. The patient was to have a trache ostomy and PEG tube placed, but that was put on hold. She did develop bilateral pneumothoraces, and required bilateral chest tube insertions. At one point, she was bleeding from the left chest tube site. That subsequently, has stopped. She remains on the ventilator, volume assist control, rate 30, tidal volume 325, FiO2 60%, and PEEP of 16. Blood gases show pO2 of 89, pCO2 of 50, and pH is 7. 44. The patient's currently on Nimbex at 3 mics per kilogram per minute, propofol at 50 mcg/kg/m, fentanyl 1 mcg/kg/h, Cleveprex at 11 mg an hour, saline at 20 mL an hour, and vital high protein at 10 mL an hour, which is goal. The tube feeds are currently on hold in anticipation of tracheostomy and PEG tube placement. White count 18, hemoglobin 7.3, hematocrit 22.8, and platelet count 208,000. Sodium 138, potassium 3.6, chlorides 104, CO2 32, anion gap 2, BUN 27, and creatinine 0.62. Microbiologic studies are negative. Chest x-ray shows bilateral chest tubes. No sizable pneumothorax is noted. Subcutaneous air persist. Persistent interstitial densities are noted bilaterally. Progress note dated 10/14/2021. 61-year-old female, admitted back on 09/23/2021. She was admitted with a diagnosis of coronavirus associated pneumonia. She came to the intensive care unit 2 days later, on September 25. She was intubated on the same day, for worsening hypoxemic respiratory failure. The patient is apparently scheduled to have a tracheostomy and PEG tube placement performed today. Tube feeds are on hold. She remains on the ventilator. She is on the volume assist control mode, rate 30, tidal volume 325, FiO2 70%, and PEEP of 16. Arterial blood gases on 60%, show pO2 of 53, pCO2 of 57, and pH is 7.38. The patient's on Cleveprex at 4 mg an hour, fentanyl 1.5 mcg/kg/h, Nimbex at 3 mcg/kg/m, propofol at 50 mcg/kg/m, and saline at KVO. The patient is again seen in room 253. White count was 21.7. Hemoglobin 8.7, hematocrit 27.4, and platelet count was normal. Sodium 138, potassium 3.4, chlorides 103, CO2 35, BUN 25, and creatinine 0.59. Chest x-ray shows improving bilateral infiltrates. Progress note dated 10/15/2021. 61-year-old female, admitted back on 09/23/2021. She is again seen in room 253. She was admitted with a diagnosis of coronavirus associated pneumonia. She came to the intensive care unit on 09/25/2021. She was intubated on 09/25/2021, for worsening respiratory status. The patient underwent tracheostomy and PEG tube placement yesterday, 10/14/2021. She remains on the ventilator. She is on the volume assist control mode, rate 30, tidal volume 325, FiO2 60%, to be dropped down to 50%, and a PEEP of 16. Blood gases show pO2 of 93, pCO2 61, pH is 7.35. The patient is on saline at KVO, propofol at 40 mcg/kg/m, Nimbex at 3 mcg/kg/m, and fentanyl 1 mcg/kg/h. The patient's also on norepinephrine at 2 mcg/m. Tube feedings are on hold. The patient has [address] This is slightly from the right chest tube. Thus far, microbiology is negative. We will discontinue the Diflucan. Currently, the patient is not on any antibiotics. We'll resume the patient's Eliquis, at 5 mg twice a day. White count 21.5, hemoglobin 8.3, hematocrit 27.2, and platelet count normal. Sodium 137, potassium 3.9, chlorides 104, CO2 32, anion gap 1, BUN 22, and creatinine 0.52. Chest x-ray shows patchy bilateral lung infiltrates. Progress note dated 10/16/2021. 61-year-old female, admitted back on 09/23/2021. The patient was again seen in room 253. She was admitted with a diagnosis of coronavirus associated pneumonia. She came to the intensive care unit on September 25. She was intubated on 09/25/2021. The patient underwent tracheostomy and PEG tube placement on 10/14/2021. She remains on the ventilator. Currently, she is on the volume assist control mode, rate 30, with a respiratory rate of 33. Tidal volume is 325. FiO2 60%, and PEEP of 16. Blood gases show pO2 of 80, pCO2 of 58, and a pH is 7.41. The patient is currently on propofol at 50 mcg/kg/m, saline at 20 mL an hour, Nimbex at 5 mcg/kg/m, and fentanyl 1.5 mcg/kg/h. The patient's also getting Cleveprex 5 mg an hour, and vital 1.2 at 10 mL an hour, which is goal. Chest x-ray shows no change. Microbiologic studies are currently negative. There is a small intermittent leak from the right-sided chest tube. The left- sided chest tube shows no leak so ever. The patient should be paralyzed, but apparently is overbreathing the ventilator. We will switch to a different paralytic. In addition, the ventilator may need to be switched out. White count 16.9, hemoglobin 8.9, hematocrit 29.2, and platelet count 278,000. Sodium 137, potassium 3.6, 2, CO2 33, anion gap 2, BUN 19, and creatinine 0.5. Progress note dated 10/17/2021. 61-year-old female, admitted back on 09/23/2021. The patient was again seen in room 253. She was admitted with a diagnosis of coronavirus associated pneumonia. She came to the intensive care unit on 09/25/2021, and was intubated on the same day. The patient underwent tracheostomy and PEG tube placement on 10/14/2021. She remains on the ventilator. Yesterday, or having issues with her tracheostomy tube. Her returned tidal lines were much lower than that should've been. We were able to do a bronchoscopy, suction her airway, and reposition the tracheostomy tube, which I believe was against the wall of the trachea. Currently, she is doing much better. She is on the volume assist control mode, rate 30, tidal volume 420, FiO2 80%, and PEEP of 16. Blood gases show a PaO2 of 69, pCO2 of 48, pH is 7.46. The patient is on propofol at 50 mcg/kg/m, saline at 20 mL an hour, fentanyl 1.5 mcg/kg/h, and rocuronium at 11 mcg/kg/m. The patient is also getting vital 1.2 at 10 mL an hour, which is goal. Today we will attempt to wean the FiO2. In addition, the patient will need a new arterial line, at the right radial site. Current labs include a white count 15.8, hemoglobin 8.2, hematocrit 24.4, and platelet count 271,000. Sodium 136, potassium 3.1, chlorides 100, CO2 32, anion gap 4, BUN 21, and creatinine 0.48. Chest x-ray today, shows diffuse infiltrates, and is largely unchanged. On 11/02/2021 patient seen in follow-up in the intensive care unit, she remains trached to the ventilator, sedated, currently on assist-control with a rate of 26, tidal M3 50, FiO2 of 55% and PEEP of 14. This morning's blood gas shows pO2 of 150, pCO2 of 67, and pH of 7.37, this was done on FiO2 of 70%, and FiO2 has been decreased down to 55%. Today's chest x-ray shows stable right upper lobe pneumothorax despite [address], persistent multifocal confluent increased opacity consistent with COVID-19 infection, no significant change from one day earlier. Patient is currently sedated with Diprivan at 65 mics per kilo per minute, fentanyl infusion at 2.5 mics per kilo per minute, 0.9 normal saline at a rate of 20 ML per hour, patient is on tube feedings at 10 mL per hour, with a goal of 10. Patient has [address], the medial chest tube has no air leak, remains to wall suction, and more lateral right-sided chest tube has intermittent air leak and remains to wall suction. Patient has been off the Cleviprex since yesterday morning at 10:45 in the morning, patient was placed on metoprolol 50 mg twice daily, and she remains on oral Cardizem 30 mg 4 times daily and Eliquis for new onset atrial fibrillation . Yesterday we had dexamethasone DC'd and place the patient on prednisone 60 mg daily. In addition patient is an +1.3 L net fluid balance over the last 24 hours, and patient will be given a dose of Lasix. Her oxygenation seems to have improved on today's blood gas, and we were able to contact the FiO2 down to 55%. She's had no acute events overnight. The rest of her blood work has been reviewed her white blood cell count is 7.2, hemoglobin is 8.9, platelet count is 304, sodium is 136, potassium is 4.0, chloride is 97, CO2 is 37, B1 is 20 creatinine 0.37. Her sp utum culture showed Corynebacterium species, and blood cultures have been negative. Patient has received 5 day course of Levaquin which can be discontinued at this time, her procalcitonin level was negative at 0.23. On November 03, 2021 patient seen in follow-up in intensive care unit. she remains trached to the ventilator, sedated, she is on control with a rate of 26, tidal 350, FiO2 55% and PEEP of 14. This morning's blood gas shows pO2 of 76, pCO2 of 60, and pH of 7.45. Her peak airway pressures 26, and plateau pressure of 30. Today's chest x-ray shows stable portable chest, 2 right-sided chest tubes, right-sided pneumothorax is unchanged compared to yesterday, there are scattered interstitial and alveolar infiltrates throughout both lungs unchanged. Patient is currently sedated on Diprivan at 55 mics per kilo per minute, fentanyl drip has been discontinued, patient has been getting intermittent doses of IV Dilaudid for discomfort. Patient has been hypertensive especially during periods of agitation, and sedation holidays. Yesterday patient was off sedation for 30 minutes, did not follow purposeful command. she did however become agitated, restless, and her vital signs were becoming unstable, she was very dyssynchronous with the ventilator, and she had to be placed back on sedation. Today's labs have been reviewed, her white blood cell count is 7.8, hemoglobin is 9.3, platelet count is 353, sodium is 139, potassium is 3.3, this is being replaced per protocol, in addition to scheduled doses of K-Lyte 20 in the every 3 times daily, chloride is 98, CO2 39, BUN is 19 creatinine 0.30. Patient is receiving nutrition with vital hypertension at a rate of 47 with a goal of 47 and standard water flushes. She has had no acute events overnight, she still has [address], the medial chest tube is positive for intermittent air leak, and lateral chest tube on the right side shows no air leak. Patient continues on prednisone 60 mg daily, she is on oral Cardizem, and Eliquis for anticoagulation, she remains in A. fib with a controlled rate. On 11/04/2021 patient seen in follow-up in the intensive care, she remains trached to the ventilator, she is currently not on any sedation since 4:00 yesterday afternoon. She is on assist-control with a rate of 26, tidal on his 350, FiO2 50% and PEEP of 14, this morning blood gas shows pO2 of 73, pCO2 52 and pH of 7.47. She is currently on no drips other than 0.9 normal saline at a rate of 20 ML per hour, patient has been off all sedation since yesterday 4:00 PM. Yesterday afternoon patient had developed bradycardia, with sinus pauses and the heart rate was down to 38, patient was hypotensive, Precedex was discontinued, and patient had recovered. She has not responded to any verbal stimuli, she grimaces to painful stimuli, does not follow instructions. Today's chest x-ray shows small to moderate size right pneumothorax with slight interval increase in size, currently at 3.7 cm at the apex versus 2.5 cm previously, and cardiomegaly and diffuse groundglass interstitial changes that are similar in appearance to yesterday's chest x-ray. Patient still has 2 right-sided chest tubes in place with intermittent air leaks alternating between the 2. Both chest tubes remained to wall suction. Patient is currently in sinus mechanism, slightly tachycardic with a rate of 115 BPM, currently remains on oral Cardizem 30 mg 4 times a day, Eliquis 5 mg twice a day, Lopressor 50 mg twice a day, she remains on Norvasc 10 mg daily and losartan 12.5 mg daily. Cleviprex has been off since yesterday. Blood pressure seems to be better controlled on today's exam. Patient has been afebrile. She is tolerating tube feedings. Today's labs have been reviewed, white blood cell, 10.5, hemoglobin is 9.4, platelet count is 397, sodium is 140, potassium 3.6, chloride is 101, CO2 36, B1 is 21 creatinine 0.3. The patient's family has been receiving daily updates on patient's condition from the nursing staff, at this time they're considering patient's CODE STATUS. Patient has been hospitalized for a total of 42 days, 40 days on the ventilator support. Patient has been maximizing medical treatment, currently she has not shown significant improvement, and has developed multiple complications along the way. Neurologically patient has not woken up, or followed any instructions. We will proceed with CT of the brain without contrast today. Patient's family has been updated by the nursing staff Progress note dated 11/05/2021. The patient is again seen in the intensive care unit, room 253. The patient is now been in the hospital for 43 days. The patient remains on the mechanical ventilator. The family did make the patient a DO NOT RESUSCITATE patient, yesterday. She is on the volume assist control, rate 26, tidal volume 350, FiO2 50%, and PEEP of 14. Her tear blood gases show pO2 of 74, pCO2 56, and pH is 7.42. The patient's getting saline at 50 mL an hour, propofol at 10 mcg/kg/m, a nd vital high protein at 40 mL, with a goal of 55 mL an hour. She had a brain CT, that was negative for anything acute. She has a right apical pneumothorax on chest x-ray. She has 2 right-sided chest tubes in place. White count 10.5, hemoglobin 9.3, hematocrit 31.5, platelet count 427,000. Sodium 140, potassium 3.5, chlorides 106, CO2 36, anion gap -2, BUN 20, creatinine 0.34. Chest x-ray shows a right apical pneumothorax, which may be slightly better. Progress note dated 11/06/2021. 61-year-old female again seen in the intensive care unit, room 253. She's now been in the hospital for 44 days. She was admitted with a diagnosis of coronavirus associated pneumonia. The patient remains on mechanical ventilator. She is currently on pressure regulated volume control ventilation, with a targeted tidal volume of 400, inspiratory time of 0.8 seconds, rate of 26, FiO2 of 50%, and a PEEP of 14. Blood gases show pO2 of 57, pCO2 44, and pH is 7.5. Saturations are 91-92%. The patient's getting saline at 50 mL an hour and vital high protein at 46 mL an hour, which is goal. She has 2 right-sided chest tubes. There is bit of a leak. The pneumothorax on the right is slightly large r. The patient is now a DO NOT RESUSCITATE patient. White count 14.4, hemoglobin 9, hematocrit 29.1, platelet count 409,000. Sodium 139, potassium 3.6, chlorides 105, CO2 34, BUN 23, and creatinine 0.28. Calcium is 8.6. Chest x-ray shows diffuse bilateral infiltrates. There is a right-sided apical pneumothorax. It may be a bit bigger. Two right-sided chest tubes are noted. Objective - Vital Signs Vital signs: Vital Signs Temp 99.5 F 11/06/21 08:00 Pulse 85 11/06/21 11:00 Resp 29 H 11/06/21 11:00 BP 130/65 11/06/21 11:00 Pulse Ox 91 L 11/06/21 11:00 Intake & Output 11/05/21 11/06/21 11/06/21 18:59 06:59 18:59 Intake Total 2918.534 8686.246 495 Output Total 248 290 154 Balance 4635.739 2431.246 341 Weight 86.5 kg 86.5 kg Intake: IV 636 636 265 0.9 Normal Saline @ 20mL/ 50 hr Sodium Chloride 0.9% 1, 550 600 250 000 ml @ 50 mls/hr IV . Q20H [facility] Rx#:[id number] pressure bag 36 36 15 Intake, IV Titration 70.308 39.246 Amount propofoL 1,000 mg In 70.308 39.246 Empty Bag 1 bag @ Titrate IV .Q0M AB[facility] Rx#: [id number] Tube Feeding 512 552 230 Other 60 90 Output: Chest Tube Drainage 30 Chest Tube Right 30 Urine 248 290 124 Other: Voiding Method Indwelling Catheter Indwelling Catheter Indwelling Catheter # Bowel Movements 1 ABP, PAP, CO, CI - Last Documented Arterial Blood Pressure 138/58 - Exam No acute distress, sedated , with a midline tracheostomy tube. HEENT examination is grossly unremarkable. Neck supple. Full range of motion. No adenopathy thyromegaly or neck vein distention. Midline tracheostomy tube is noted. Cardiovascular examination reveals regular rhythm rate. S1-S2 normal. No S3 or S4. No discernible murmur noted. Heart rate 85 bpm. Heart sounds are distant. Lungs reveal coarse bilateral rhonchi. Breath sounds are equal bilaterally. No wheezes. No crackles. Saturations are 91 %. The patient has 2 chest tubes on the right. Abdomen soft, without bowel sounds. No masses. A PEG tube is noted. Extremities are intact. No cyanosis clubbing or edema. Skin is without rash or lesion. Neurologic examination cannot be assessed as the patient is currently sedated. - Labs CBC & Chem 7: 11/06/21 04:45 11/06/21 04:45 Labs: Abnormal Lab Results - Last 24 Hours (Table) 11/05/21 11/05/21 11/05/21 Range/Units 12:00 18:55 23:33 WBC (3.8-10.6) k/uL RBC (3.80-5.40) m/uL Hgb (11.4-16.0) gm/dL Hct (34.0-46.0) % MCHC (31.0-37.0) g/dL RDW (11.5-15.5) % Neutrophils # (1.3-7.7) k/uL ABG pH (7.35-7.45) ABG pO2 (83-108) mmHg ABG HCO3 (21-25) mmol/L ABG Total CO2 (19-24) mmol/L ABG O2 Saturation (94-97) % Carbon Dioxide (22-30) mmol/L BUN (7-17) mg/dL Creatinine (0.52-1.04) mg/dL Glucose (74-99) mg/dL POC Glucose (mg/dL) 215 H 150 H 133 H (75-99) mg/dL 11/06/21 11/06/21 11/06/21 Range/Units 04:45 04:45 05:30 WBC 14.4 H (3.8-10.6) k/uL RBC 3.19 L (3.80-5.40) m/uL Hgb 9.0 L (11.4-16.0) gm/dL Hct 29.1 L (34.0-46.0) % MCHC 30.8 L (31.0-37.0) g/dL RDW 16.1 H (11.5-15.5) % Neutrophils # 10.1 H (1.3-7.7) k/uL ABG pH 7.50 H (7.35-7.45) ABG pO2 57 L* (83-108) mmHg ABG HCO3 35 H (21-25) mmol/L ABG Total CO2 36 H (19-24) mmol/L ABG O2 Saturation 91.1 L (94-97) % Carbon Dioxide 34 H (22-30) mmol/L BUN 23 H (7-17) mg/dL Creatinine 0.28 L (0.52-1.04) mg/dL Glucose 103 H (74-99) mg/dL POC Glucose (mg/dL) (75-99) mg/dL 11/06/21 Range/Units 05:32 WBC (3.8-10.6) k/uL RBC (3.80-5.40) m/uL Hgb (11.4-16.0) gm/dL Hct (34.0-46.0) % MCHC (31.0-37.0) g/dL RDW (11.5-15.5) % Neutrophils # (1.3-7.7) k/uL ABG pH (7.35-7.45) ABG pO2 (83-108) mmHg ABG HCO3 (21-25) mmol/L ABG Total CO2 (19-24) mmol/L ABG O2 Saturation (94-97) % Carbon Dioxide (22-30) mmol/L BUN (7-17) mg/dL Creatinine (0.52-1.04) mg/dL Glucose (74-99) mg/dL POC Glucose (mg/dL) 112 H (75-99) mg/dL Assessment and Plan Assessment: Acute hypoxemic respiratory failure secondary to coronavirus associated pneumonia, status post intubation, and mechanical ventilation on 09/25/2021, with tracheostomy and PEG tube placement on 10/14/2021. No evidence of pulmonary embolism on CT angiogram. Acute bilateral pneumothoraces, status post bilateral chest tube placements, on 10/11/2021. Currently, no left-sided chest tube, and 2 chest tubes on the right. Status post bronchoscopy, on 10/16/2021, to reposition the tracheostomy tube. Acute blood loss anemia. New-onset atrial fibrillation, stable. Extensive subcutaneous emphysema, as a complication of mechanical ventilation and coronavirus associated pneumonia. Acute deep vein thrombosis. Mild transaminitis secondary to coronavirus infection. Primary hypercoagulable state in the form of Leiden factor deficiency/factor V deficiency. Nonsustained ventricular tachycardia, resolved. Prior history of DVT. History of fibromyalgia. History of arthritis. History of degenerative disc disease. Lifelong non-tobacco user. Plan: Plan dated 09/24/2021. The patient is not a candidate for REM, and she's had symptoms for more than 7 days. Actually sees, symptoms date back to September 10. 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 The patient does qualify for Decadron. In addition, the patient should be on vitamin C, vitamin D3, and zinc. Additional recommendations and suggestions are forthcoming. Prognosis is guarded. The patient is currently on Levaquin. That may disqualify her from [facility]. Plan dated 09/25/2021. The patient's blood gases suggests worsening respiratory status, and therefore, the patient was transferred down to the intensive care unit. The patient was on saline, at 50 mL an hour. Blood gases again showed a pO2 of only 49, and a pCO2 32, with a pH is 7.42. This is on BiPAP, at 100%. I did speak to her and her about the fact that she may require intubation and mechanical ve ntilation, before the end of the day. She will continue on Coumadin, as well as Decadron, and vitamins. The patient was placed on Levaquin. Her pro-calcitonin level was elevated. This likely disqualifies her for [facility]. We will continue to follow and make recommendations where appropriate. Prognosis is certainly guarded. Plan dated 09/26/2021. The patient was intubated and mechanically ventilated yesterday. A right radial art line was placed as was a left-sided triple-lumen catheter. The patient's currently sedated and paralyzed. Tube feedings will start today. She did get fluid resuscitation yesterday. She remains on a small dose of norepinephrine. The patient will have labs ordered for the morning including a CBC, basic metabolic profile, and blood gas. The patient remains on Coumadin. In addition, the patient will have a chest x-ray ordered for the morning. Tube feedings will be started today. Prognosis is guarded. We will continue to follow and make recommendations where appropriate. Prognosis is certainly very guarded. Plan dated 10/11/2021. Labs, x-rays, and medications are reviewed. A left-sided chest tube was placed by our team today. In addition, surgery has been consulted for possible tracheostomy and PEG tube placement. The patient remains on propofol, fentanyl, and Nimbex. The patient is on the mechanical ventilator, on 90% FiO2 and PEEP of 16. Additional recommendations and suggestions are forthcoming. Tube feedings are currently going to be placed on hold for possible tracheostomy and PEG tube placement. We will continue to follow and make recommendations where appropriate. Plan dated 10/12/2021. The patient developed bilateral pneumothoraces, and required bilateral chest tube placements, on October 11. There is some bleeding from the left-sided chest tube. The patient did receive vitamin K, fresh shows some plasma, and 4 factor prothrombin complex concentrate. In addition, the patient is going to receive 1 unit of packed red blood cells. I asked the nurse to call the surgeon to delay surgery. I was able to speak to the patient's , Taco. He is going to talk to the rest of the family about CODE STATUS and whether or not they wish to withdrawal of I support. I spoke to him for about 20 minutes on the phone. The patient remains on propofol, fentanyl, Nimbex, and norepinephrine. Prognosis is poor. We will continue to follow and make recommendations where appropriate. Plan dated 10/13/2021. The patient hopefully will proceed to tracheostomy and PEG tube placement. The patient's currently much more stable today than she was yesterday. We did talk to the about CODE STATUS. He has not made any decision as yet. The patient remains on Nimbex, propofol, and fentanyl. The patient is also receiving Cleveprex for elevated blood pressure. We will continue to follow make recommendations where appropriate. Prognosis is guarded. Labs, x-rays, and medications are all reviewed. Plan dated 10/14/2021. The patient should have a tracheostomy and PEG tube placed today. Currently, the patient remains on fentanyl, Nimbex, and propofol. In addition, the patient's on Cleveprex for blood pressure control. The patient's FiO2 was increased from 60% up to 70%, based on the blood gas today. We will continue to follow and make recommendations where appropriate. Labs, x-rays, and medicatio ns are all reviewed. Prognosis is guarded. I did speak to the about CODE STATUS. The patient is full code for now. Plan dated 10/15/2021. The patient had a tracheostomy and PEG tube placed on October 14. The patient remains on propofol, Nimbex, and fentanyl. We will attempt to discontinue the Nimbex at possible. The patient is started back on Eliquis, at 5 mg twice a day. Currently, we are going to DC Diflucan. There is a small air leak on the right chest tube area chest x-ray does not show any evidence of pneumothorax. She does have bilateral diffuse infiltrates. Currently, the patient is a full code. I did speak to the a couple days ago. Prognosis is guarded. We will continue to follow make recommendations where appropriate. The patient has now been in the hospital for 22 days. Plan dated 10/16/2021. The patient had a tracheostomy tube placed and PEG tube placement on October 14. The patient remains on Nimbex fentanyl and propofol. Interestingly, she does not appear that she is properly paralyzed. We may need to change to different paralytic or change off the ventilator. The patient remains on Cleveprex at 5 mg an hour. The patient's microbiologic studies are negative. Chest x-ray shows no changes. Additional recommendations and suggestions are forthcoming. We will continue to follow make recommendations where appropriate. Culture data as mentioned is negative. The patient is not on any antibiotics. Prognosis is guarded. Plan dated 10/17/2021. The patient had a bronchoscopy performed yesterday, to help reposition the trach eostomy tube. I believe that was up against the wall of the trachea. The patient's exhaled tidal volumes are much lower than that should've been. The patient remains on rocuronium, fentanyl, and propofol. In addition, the patient had a new arterial line placed, in the right radial artery. The other arterial line was not working properly. Culture data thus far negative. The patient is currently not on antibiotics. We will continue to follow and make recommendations where appropriate. Prognosis is guarded. I did speak to the patient's and daughter yesterday. Plan dated 11/05/2021. Currently, the patient seems be about the same today as she was yesterday. Chemical ventilation. Her propofol dose is 10 mcg/kg/m. She is getting tube feedings. She has 2 right-sided chest tube. Because of mental status changes, she had a computed tomography scan of the brain yesterday, which showed no acute abnormality. Her chest x-ray shows a right apical pneumothorax, which is sligh tly better today than it was yesterday. There is no left-sided chest tube. There are 2 chest tubes on the right. We will continue to follow make recommendations were appropriate. Overall prognosis remains very guarded. I have talked to the family in the past. Plan dated 11/06/2021. The patient seems about the same today as she was yesterday. The right-sided pneumothorax is just a bit larger. There is a small leak from one of the chest tubes. She remains on mechanical ventilation. Currently, she's not receiving any sedation. Yesterday, we changed to pressure regulated volume control ventilation or VC plus. She seems to be doing better with that mode. The patient remains on tube feedings. The patient is now a DO NOT RESUSCITATE patient. We will continue to follow make recommendations where appropriate. Prognosis is certainly guarded. We have been in contact with the family, and giving them updates, as necessary. Time with Patient: Greater than 30
[2021-11-06 11:54] LABS: Glucose,Whole Blood 211 mg/dL (75-99)
--- NOTE | 2021-11-06 17:21 | P.PN ---
Subjective This is a 61-year-old female who was recently admitted with acute COVID-19 pneumonia with acute COVID-19 bilateral interstitial pneumonia and also with transaminitis and being closely monitored. Patient remains in the ICU and currently intubated and sedated with an FiO2 of 70% and PEEP is 18. 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 Patient did have a venous Doppler study done recently which showed left leg DVT and patient is maintained on Eliquis will continue. Patient also continues on empiric antibiotics and awaiting for sputum culture finalized. Patient was started on IV cefepime and will continue. Patient is also continued on oral dexamethasone along with vitamin and zinc supplements and will continue. Patient with some mild volume overload and given a dose of IV L asix push today. 11/03/2021 Patient is seen in follow-up this morning and continues to be closely monitored in the ICU with multiple medical consultations following. Per nursing staff working on weaning sedation and is currently off propofol to assess and no responses noted and patient is not following commands. FiO2 titrated down to 45% with a PEEP of 14 and currently on Precedex for hypertension. Chest xray shows stable scattered interstitial and alveolar infiltrates throughout both lung patterson that persist and are unchanged. Potassium is low at 3.3 and will replace per protocol and recommend repeat labs. 11/04/2021 Patient is seen and evaluated today and continues to be in critical condition. Continued right chest tubes x2 and chest xray today shows some increase in size of the pneumothorax on the right. Patient is off sedation since yesterday and does not respond to commands only painful stimuli. CT brain ordered and pending. Patient currently on precidex and having multiple issues with blood pressure. Code status was changed to no code by family today. Patient continues on vent and FI02 is 50% with a peep of 14. Overall prognosis is extremely poor and guarded. 11/05/2021 Patient continues in the ICU being closely monitored. Fi02 is 50% with a peep of 14. Patient also continues with 2 right side chest tubes with chest xray showing possible slight improvement in the size of right side pneumothorax and otherwise stable chest. Patient continues on eliquis along with oral prednisone and vitamin and zinc supplements. Patient is off propofol and not following command s. CT brain was negative yesterday. 11/06/2021 Patient with bilateral pneumonia and acute hypoxic respiratory failure requiring intubation and mechanical ventilation with pulmonary/critical care team following him closely and help with vent management. Patient has prolonged course in the hospital and intensive care unit. And his courses marked by several complications including bilateral pneumothoraces status post chest tubes, more on the right side. New-onset A. 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 His condition remains critical. Distal hypoxic requiring high FiO2 50%, his blood pressure is borderline 80/53, he had no fever today but yesterday his temperature was found and draped. He is tachypneic and 28. He is kept on Eliquis 5 mg, prednisone 60 mg, normal saline 50 mg as well as vitamin C, D and zinc. He is also on Protonix and Cardizem 30 mg 4 times a day Objective - Vital Signs Vital signs: Vital Signs Temp 99.5 F 11/06/21 08:00 Pulse 85 11/06/21 11:00 Resp 29 H 11/06/21 11:00 BP 130/65 11/06/21 11:00 Pulse Ox 91 L 11/06/21 11:00 Intake & Output 11/05/21 11/06/21 11/06/21 18:59 06:59 18:59 Intake Total 5730.040 6858.246 495 Output Total 248 290 154 Balance 3358.289 3225.246 341 Weight 86.5 kg 86.5 kg Intake: IV 636 636 265 0.9 Normal Saline @ 20mL/ 50 hr Sodium Chloride 0.9% 1, 550 600 250 000 ml @ 50 mls/hr IV . Q20H [facility] Rx#:[id number] pressure bag 36 36 15 Intake, IV Titration 70.308 39.246 Amount propofoL 1,000 mg In 70.308 39.246 Empty Bag 1 bag @ Titrate IV .Q0M [facility] Rx#: [id number] Tube Feeding 512 552 230 Other 60 90 Output: Chest Tube Drainage 30 Chest Tube Right 30 Urine 248 290 124 Other: Voiding Method Indwelling Catheter Indwelling Catheter Indwelling Catheter # Bowel Movements 1 ABP, PAP, CO, CI - Last Documented Arterial Blood Pressure 138/58 - Exam -GENERAL: The patient is intubated and sedated HEENT: Pupils are round and equally reacting to light. EOMI. No scleral icterus. No conjunctival pallor. Normocephalic, atraumatic. No pharyngeal erythema. No thyromegaly. CARDIOVASCULAR: S1 and S2 present. No murmurs, rubs, or gallops. -PULMONARY: Bilateral decreased breath sounds with bilateral crepitation ABDOMEN: Soft, nontender, nondistended, normoactive bowel sounds. No palpable organomegaly. MUSCULOSKELETAL: No joint swelling or deformity. EXTREMITIES: No cyanosis, clubbing, or pedal edema. NEUROLOGICAL: Gross neurological examination did not reveal any focal deficits. SKIN: No rashes. no petechiae. - Labs CBC & Chem 7: 11/06/21 04:45 11/06/21 04:45 Labs: Abnormal Lab Results - Last 24 Hours (Table) 11/05/21 11/05/21 11/06/21 Range/Units 18:55 23:33 04:45 WBC 14.4 H (3.8-10.6) k/uL RBC 3.19 L (3.80-5.40) m/uL Hgb 9.0 L (11.4-16.0) gm/dL Hct 29.1 L (34.0-46.0) % MCHC 30.8 L (31.0-37.0) g/dL RDW 16.1 H (11.5-15.5) % Neutrophils # 10.1 H (1.3-7.7) k/uL ABG pH (7.35-7.45) ABG pO2 (83-108) mmHg ABG HCO3 (21-25) mmol/L ABG Total CO2 (19-24) mmol/L ABG O2 Saturation (94-97) % Carbon Dioxide (22-30) mmol/L BUN (7-17) mg/dL Creatinine (0.52-1.04) mg/dL Glucose (74-99) mg/dL POC Glucose (mg/dL) 150 H 133 H (75-99) mg/dL 11/06/21 11/06/21 11/06/21 Range/Units 04:45 05:30 05:32 WBC (3.8-10.6) k/uL RBC (3.80-5.40) m/uL Hgb (11.4-16.0) gm/dL Hct (34.0-46.0) % MCHC (31.0-37.0) g/dL RDW (11.5-15.5) % Neutrophils # (1.3-7.7) k/uL ABG pH 7.50 H (7.35-7.45) ABG pO2 57 L* (83-108) mmHg ABG HCO3 35 H (21-25) mmol/L ABG Total CO2 36 H (19-24) mmol/L ABG O2 Saturation 91.1 L (94-97) % Carbon Dioxide 34 H (22-30) mmol/L BUN 23 H (7-17) mg/dL Creatinine 0.28 L (0.52-1.04) mg/dL Glucose 103 H (74-99) mg/dL POC Glucose (mg/dL) 112 H (75-99) mg/dL 11/06/21 Range/Units 11:52 WBC (3.8-10.6) k/uL RBC (3.80-5.40) m/uL Hgb (11.4-16.0) gm/dL Hct (34.0-46.0) % MCHC (31.0-37.0) g/dL RDW (11.5-15.5) % Neutrophils # (1.3-7.7) k/uL ABG pH (7.35-7.45) ABG pO2 (83-108) mmHg ABG HCO3 (21-25) mmol/L ABG Total CO2 (19-24) mmol/L ABG O2 Saturation (94-97) % Carbon Dioxide (22-30) mmol/L BUN (7-17) mg/dL Creatinine (0.52-1.04) mg/dL Glucose (74-99) mg/dL POC Glucose (mg/dL) 211 H (75-99) mg/dL Assessment and Plan Assessment: Acute COVID-19 infection with acute COVID-19 bilateral interstitial pneumonia with hypoxic hypercarbic respiratory failure on mechanical vent status post trach and peg tube placement on 10/14/2021 Worsening right side pneumothorax status post chest tube placement and thoravent removal on 10/29/2021 bilateral pneumothoraces with chest tube placement and status post removal of chest tubes 2.3.2021 Atrial fibrillation, new onset, currently rate controlled on metoprolol and cardizem Non-sustained ventricular tachycardia, currently sinus Acute left leg deep vein thrombosis Primary hypercoagulable state and factor V deficiency Obesity with a body mass index of 36.0 DVT prophylaxis: on Eliquis No code Plan: This is a pleasant 61 years old female with covert pneumonia, hypoxia, DVT and A. fib. Continue with multiple vitamins and prednisone 60 mg Continue with gentle hydration normal saline 50 ml per hour Continue with the [facility] cardiology and pulmonary/critical care team on the case. Labs and medication were reviewed.. Continue same treatment. Continue with symptomatic treatment. Resume home medication. Monitor lytes and vitals. DVT and GI prophylaxis. Further recommendations as per clinical course of the patient DVT prophylaxis: Eliquis GI Prophylaxis: Ppi Prognosis is extremely guarded
[2021-11-06 17:54] LABS: Glucose,Whole Blood 190 mg/dL (75-99)
[2021-11-06] MEDS: SODIUM CHLORIDE 0.9% 1,000 ML IV SCH (18:12)
[2021-11-06 23:54] LABS: Glucose,Whole Blood 126 mg/dL (75-99)
[2021-11-07] MEDS: INSULIN ASPART (NovoLOG) 100 UNIT/ML VIAL SQ SCH ×4 (01:29→18:33)
[2021-11-07] MEDS: HYDROmorphone 1 MG/ML 1 ML SYRINGE IVP PRN ×4 (03:24→15:35)
[2021-11-07 05:08] LABS: Anisocytosis Slight; Basophils # (A) 0.1 k/uL (0-0.2); Basophils % (A) 1 %; Eosinophils # (A) 0.2 k/uL (0-0.7); Eosinophils % (A) 1 %; HCT 29.7 % (34.0-46.0); Hypochromasia Marked; Lymphocytes % (A) 19 %; MCH 27.5 pg (25.0-35.0); MCHC 30.2 g/dL (31.0-37.0); MCV 91.1 fL (80.0-100.0); Monocytes # (A) 0.8 k/uL (0-1.0); Monocytes % (A) 5 %; Neutrophils % (A) 74 %; Platelet Count 416 k/uL (150-450); RBC 3.26 m/uL (3.80-5.40); RDW 16.2 % (11.5-15.5); WBC 16.2 k/uL (3.8-10.6)
[2021-11-07 05:19] LABS: African American GFR (CKD) >90 (>60 ml/min/1.73 sqM); Anion Gap -1 mmol/L; Blood Urea Nitrogen 18 mg/dL (7-17); Calcium 8.3 mg/dL (8.4-10.2); Carbon Dioxide 29 mmol/L (22-30); Chloride 111 mmol/L (98-107); Glucose 106 mg/dL (74-99); Non-African American GFR(CKD) >90 (>60 ml/min/1.73 sqM); Potassium 3.4 mmol/L (3.5-5.1); Sodium 139 mmol/L (137-145)
[2021-11-07 05:43] LABS: Glucose,Whole Blood 125 mg/dL (75-99)
[2021-11-07 05:49] LABS: ABG Base Excess 8.8 mmol/L; ABG HCO3 32 mmol/L (21-25); ABG PCO2 41 mmHg (35-45); ABG PO2 73 mmHg (83-108); ABG TCO2 33 mmol/L (19-24)
[2021-11-07 06:12] LABS: Allen Test Performed? No
--- NOTE | 2021-11-07 08:44 | XR ---
EXAMINATION TYPE: XR chest 1V portable DATE OF EXAM: 11/07/2021 Comparison: 11/06/2021 Clinical History: 61-year-old female covid Findings: Tracheostomy cannula. Partially visualized ACDF hardware. Right PICC tip cavoatrial junction. 2 right -sided chest tubes remain in place. Right apical pneumothorax decreased in size currently measuring 1 .1 cm at the apex versus 2.7 cm, previously 1.0 cm along the periphery of the right upper lobe (versu s 1.2 cm, previously). Heart remains borderline in size. Mild diffuse interstitial groundglass remain similar. Impression: 1. Small right-sided pneumothorax persists, decreased in size (1.1 cm at the apex versus 2.7 cm, prev iously). 2. Continued mild diffuse bilateral groundglass changes.
[2021-11-07] MEDS: predniSONE 20 MG TAB PO SCH (09:59)
[2021-11-07] MEDS: NYSTATIN 100,000 UNIT/ML SUSP 500,000 UNIT/5 ML CUP PO SCH ×4 (09:59→20:59)
[2021-11-07] MEDS: ZINC SULFATE 220 MG CAP PO SCH (09:59)
[2021-11-07] MEDS: ASCORBIC ACID 500 MG TAB PO SCH ×2 (09:59→20:14)
[2021-11-07] MEDS: PANTOPRAZOLE 40 MG/10 ML VIAL IV SCH (09:59)
[2021-11-07] MEDS: DILTIAZEM ORAL 30 MG TAB PO SCH ×4 (09:59→20:14)
[2021-11-07] MEDS: amLODIPine 10 MG TAB PO SCH (09:59)
[2021-11-07] MEDS: QUEtiapine 50 MG TAB PO SCH ×2 (09:59→20:14)
[2021-11-07] MEDS: POTASSIUM BICARBONATE/CIT AC 20 MEQ TABLET.EFF PO SCH ×3 (09:59→20:59)
[2021-11-07] MEDS: METOPROLOL TARTRATE 50 MG TAB PO SCH ×2 (10:00→20:14)
[2021-11-07] MEDS: APIXABAN 5 MG TAB PO SCH ×2 (10:00→20:14)
[2021-11-07] MEDS: LOSARTAN 25 MG TAB PO SCH (10:00)
[2021-11-07] MEDS: ERGOCALCIFEROL 1,250 MCG (50,000 IU) CAPSULE PO SCH (10:01)
--- NOTE | 2021-11-07 11:16 | P.PN ---
Subjective Progress Note Date: 11/07/21 Principal diagnosis: Hypoxemic respiratory failure. Pulmonary consult dated 09/24/2021. 61-year-old female who states that she's been having symptoms, since September 10. The symptoms included shortness of breath, cough, fatigue, muscle aches, and generally just not feeling well. The patient is on vaccinated. She tested positive for coronavirus on September 23. Currently, she is on BiPAP with settings of 16/8, at 100%. Her primary care physician is Dr. Dionte Bal. The patient takes Coumadin chronically for her factor V or Leiden factor deficiency. Initially, on room air, her saturations were in the 70s, and on a nonrebreather, only got up into the mid 80s. In addition to the primary hypercoagulable state, she has a history of DVT, fibromyalgia, pneumonia, arthritis, and degenerative disc disease. She is a lifelong nonsmoker. She is getting saline at 50 mL an hour currently. White count 12.1, with a normal hemoglobin, hematocrit, and platelet count. PTT 24.2 INR 2.5, and d-dimer was 32.13. Sodium 1:30, potassium 3.1, chlorides 106, CO2 20, anion gap 12, BUN 47, and creatinine 1.5. Lactic acid was 1.5. AST was 95 with an ALT of 60. Pro-calcitonin level was 0.52. N-terminal proBNP is 259. Chest x-ray reveals diffuse bilateral infiltrates. CT angiogram was negative for pulmonary embolism, but did show diffuse infiltrates consistent with coronavirus pneumonia. Progress note dated 09/25/2021. 62-year-old female that I saw yesterday in consultation. She's been having coronavirus symptoms since September 10. The patient sees Dr. Dionte Bal as a primary. Yesterday, she was on BiPAP, at 16/8 and 100%. She was doing okay. Today, her saturations are quite low, she is much more tachypnea, and I decided to go ahead and move her to the ICU. The patient may require intubation and mechanical ventilation before the end of the day. CT angiogram was negative for pulmonary embolism. I did speak to her daughter, and her . White count 17.1, hemoglobin 11.9, hematocrit 37.5, platelet count 390,000. PTT is 33.3 INR is 3.5. Blood gases done on 100% show pO2 of only 49, pCO2 32, and a pH is 7.42. Sodium is 142, potassium 3.7, chlorides 113, CO2 21, anion gap 8, BUN 35, with a creatinine of 1.01. Progress note dated 09/26/2021. 62-year-old female, who was admitted with a diagnosis of hypoxemic respiratory failure secondary to coronavirus associated pneumonia. She's had coronavirus symptoms since September 10. Yesterday, she was transferred down to the intensive care unit for worsening respiratory status, and required intubation and mechanical ventilation. In addition, she had a central line placed and an arterial line placed yesterday. She remains on the ventilator, she is on the volume assist control mode, rate 26, tidal volume 400, FiO2 100%, and PEEP of 15. Arterial blood gases show pO2 of 82, pCO2 46, and a pH is 7.27. The patient's getting saline at 50 mL an hour, Nimbex at 1 mcg/kg/m, propofol at 50 mcg/kg/m, and norepinephrine at 2 mcg/m. Tube feedings have yet to be started. Chest x-ray shows a properly placed endotracheal tube, and diffuse bilateral infiltrates, which are essentially unchanged. White count 14.4, hemoglobin 10.5, hematocrit 32.4, and platelet count 250,000. PTT 34.5 with an INR 3.6. Sodium 143, potassium 4, chlorides 118, CO2 22, anion gap 3, BUN 27, and creatinine 0.95. LDH is 930. C-reactive protein is 16.2. CT angiogram was negative for pulmonary embolism. Reevaluated today on 10/08/21, patient remains in the ICU, intubated, mechanically ventilated, does not seem to be doing much better today. Patient is basically about the same, remains on assist control rate of 30 tidal volume 325 FiO2 is up to 85% PEEP remains at 16. Try to increase the PEEP, however there was a significant increase in her peak airway pressure and plateau pressure. Presently her peak airway pressure is 38, and plateau pressure is 34. Patient remains on propofol at 40 mcg/kg/m Nimbex of 0.5 but granted kilo per minute fentanyl 1 mcg/kg/h clevidipine 5 mg per hour. Chest x-ray is basically about the same, continues to show bilateral infiltrates and most likely underlying ARDS. Her labs showed WBC count of 13.0 hemoglobin 10.4. Electrolytes are normal renal profile is normal. ABG showed a pO2 of 61 pCO2 57 pH of 7.47. This was on 75%, and increase her FiO2 to 80% O2 saturation seems to be marginal on the monitor. Patient is off lidocaine drip today. Reevaluated today on 10/09/21, patient remains in the ICU, intubated and mechanically ventilated. Not much of the changes noted in the last few days, remains on assist control rate of 11/18/2024 FiO2 80% and PEEP of 16. ABG remains marginal, her pO2 is 62 pCO2 56 pH of 7.42. Patient remains on Nimbex at 3 mcg/kg/m fentanyl 1 mcg/kg/h propofol 40 mcg/kg/m, she is on clevidipine for milligrams per hour, IV fluids at KVO. Her WBC count is 17.1, and hemoglobin is 11.6. Electrolytes are normal and renal profile is normal. Chest x-ray continues to show multifocalopacities. And subcutaneous emphysema. No evidence of pneumothorax. Endotracheal tube, nasogastric tube and left central line are all in proper positions. Reevaluated today on 10/10/21, patient remains in the ICU, intubated and mechanically ventilated. She is presently on assist control rate of 30 tidal volume 325 FiO2 70% PEEP of 16. Her ABG showed a pO2 of 79 pCO2 48 pH of 7.50. Chest x-ray is basically showing no change. Continues to have bilateral infiltrates. Electrolytes are normal bicarb is 37 BUN is 35 creatinine 0.69 WBC count is 15.6 hemoglobin is 10.7. Patient remains on vital HPI 10 mL per hour. She is off level Prax, and her blood pressure seems to be relatively stable. Patient remains sedated and paralyzed, she is on propofol at 50 mcg/kg/m Nimbex at 3 mcg/kg/m fentanyl 12 mcg/kg/h, she is supposed to undergo tracheostomy and PEG tube placement next week, her Eliquis was restarted, needs to be placed on hold once the decision was made whether she is undergoing tracheostomy and PEG tube tomorrow by Dr. balbuena Progress note dated 10/11/2021. 61-year-old female admitted back on September 23. She came in with a diagnosis of coronavirus associated pneumonia. She came to the intensive care unit on the , and was intubated for respiratory failure on 09/25/2021. The patient remains on mechanical ventilator. The patient's on the volume assist control mode, rate 30, tidal volume 325, FiO2 90%, PEEP of 16. Blood gases show pO2 of 62, pCO2 of 51, and a pH is 7.47. The patient's getting saline at 20 mL an hour, propofol at 40 mcg/kg/m, fentanyl at 1 mcg/kg/h, Nimbex at 3 mcg/kg/m, and vital high protein at 10 mL an hour, which is goal. The patient's chest x-ray showed a left-sided pneumothorax, about 20-25%. A #28-Kazakh chest tube was inserted today. Also, a fresh arterial line was placed today, and the left radial artery. White count 16.5, hemoglobin 10.6, hematocrit 34.5, platelet count 2 48,000. Sodium 136, potassium 3.6, chlorides 99, CO2 36, anion gap 1, BUN 32, with a creatinine 0.7. Microbiologic studies are all negative. Chest x-ray shows a very properly placed left-sided chest tube, with complete resolution of prior left-sided pneumothorax. Progress note dated 10/12/2021. 61-year-old female admitted back on 09/23/2021. She came in with a diagnosis of coronavirus associated pneumonia. The patient came to the intensive care unit on 09/25/2021, and was intubated on 09/25/2021 for worsening respiratory status. The patient remains on the mechanical ventilator. The patient was to have a tracheostomy and PEG tube placed today, but unfortunately, her hospital course is now been complicated by bilateral pneumothorax, requiring bilateral chest tube placements on October 11, and bleeding from the left chest tube site, since yesterday. That is despite the fact that the patient received fresh frozen plasma, vitamin K, and 4 factor prothrombin complex concentrate. Currently, the patient remains on the volume assist control, rate 30, tidal volume 325, FiO2 90%, and PEEP of 16. Blood gases show pO2 of 74, pCO2 of 58, and a pH is 7.41. The patient's on saline at KVO, propofol at 40 mics per kilogram per minute, Nimbex at 3 mcg/kg/m, fentanyl at 1 mcg/kg/h, norepinephrine at 2 mcg/m, and tube feeds are currently on hold. I did order 1 unit packed red blood cells. I told the nurse to call the physician, they canceled the anticipated surgery today. I was able to speak to the patient's , Taco, at [phone]. He was going to talk to the family about CODE STATUS, and possibly withdrawing life support. White count 17.3, hemoglobin 6.5, down from 10.1, hematocrit 20.4, and platelet count 194,000. PT 10.6 INR 1 PTT fibrinogen 326, and d-dimer is 0.92. Sodium 138, potassium 3.6, chlorides 101, CO2 36, anion gap 1, BUN 30, creatinine 0.69. Sputum is negative. Blood cultures are negative. Chest x-ray shows bilateral chest tubes, without pneumothorax, and diffuse patchy bilateral infiltrates. Progress note dated 10/13/2021. 61-year-old female, admitted back on 09/23/2021. She was admitted with a diagnosis of coronavirus associated pneumonia. He came to the intensive care unit on 09/25/2021, and was intubated on the same day for worsening respiratory status. She remains on mechanical ventilator. The patient was to have a trache ostomy and PEG tube placed, but that was put on hold. She did develop bilateral pneumothoraces, and required bilateral chest tube insertions. At one point, she was bleeding from the left chest tube site. That subsequently, has stopped. She remains on the ventilator, volume assist control, rate 30, tidal volume 325, FiO2 60%, and PEEP of 16. Blood gases show pO2 of 89, pCO2 of 50, and pH is 7. 44. The patient's currently on Nimbex at 3 mics per kilogram per minute, propofol at 50 mcg/kg/m, fentanyl 1 mcg/kg/h, Cleveprex at 11 mg an hour, saline at 20 mL an hour, and vital high protein at 10 mL an hour, which is goal. The tube feeds are currently on hold in anticipation of tracheostomy and PEG tube placement. White count 18, hemoglobin 7.3, hematocrit 22.8, and platelet count 208,000. Sodium 138, potassium 3.6, chlorides 104, CO2 32, anion gap 2, BUN 27, and creatinine 0.62. Microbiologic studies are negative. Chest x-ray shows bilateral chest tubes. No sizable pneumothorax is noted. Subcutaneous air persist. Persistent interstitial densities are noted bilaterally. Progress note dated 10/14/2021. 61-year-old female, admitted back on 09/23/2021. She was admitted with a diagnosis of coronavirus associated pneumonia. She came to the intensive care unit 2 days later, on September 25. She was intubated on the same day, for worsening hypoxemic respiratory failure. The patient is apparently scheduled to have a tracheostomy and PEG tube placement performed today. Tube feeds are on hold. She remains on the ventilator. She is on the volume assist control mode, rate 30, tidal volume 325, FiO2 70%, and PEEP of 16. Arterial blood gases on 60%, show pO2 of 53, pCO2 of 57, and pH is 7.38. The patient's on Cleveprex at 4 mg an hour, fentanyl 1.5 mcg/kg/h, Nimbex at 3 mcg/kg/m, propofol at 50 mcg/kg/m, and saline at KVO. The patient is again seen in room 253. White count was 21.7. Hemoglobin 8.7, hematocrit 27.4, and platelet count was normal. Sodium 138, potassium 3.4, chlorides 103, CO2 35, BUN 25, and creatinine 0.59. Chest x-ray shows improving bilateral infiltrates. Progress note dated 10/15/2021. 61-year-old female, admitted back on 09/23/2021. She is again seen in room 253. She was admitted with a diagnosis of coronavirus associated pneumonia. She came to the intensive care unit on 09/25/2021. She was intubated on 09/25/2021, for worsening respiratory status. The patient underwent tracheostomy and PEG tube placement yesterday, 10/14/2021. She remains on the ventilator. She is on the volume assist control mode, rate 30, tidal volume 325, FiO2 60%, to be dropped down to 50%, and a PEEP of 16. Blood gases show pO2 of 93, pCO2 61, pH is 7.35. The patient is on saline at KVO, propofol at 40 mcg/kg/m, Nimbex at 3 mcg/kg/m, and fentanyl 1 mcg/kg/h. The patient's also on norepinephrine at 2 mcg/m. Tube feedings are on hold. The patient has [address] This is slightly from the right chest tube. Thus far, microbiology is negative. We will discontinue the Diflucan. Currently, the patient is not on any antibiotics. We'll resume the patient's Eliquis, at 5 mg twice a day. White count 21.5, hemoglobin 8.3, hematocrit 27.2, and platelet count normal. Sodium 137, potassium 3.9, chlorides 104, CO2 32, anion gap 1, BUN 22, and creatinine 0.52. Chest x-ray shows patchy bilateral lung infiltrates. Progress note dated 10/16/2021. 61-year-old female, admitted back on 09/23/2021. The patient was again seen in room 253. She was admitted with a diagnosis of coronavirus associated pneumonia. She came to the intensive care unit on September 25. She was intubated on 09/25/2021. The patient underwent tracheostomy and PEG tube placement on 10/14/2021. She remains on the ventilator. Currently, she is on the volume assist control mode, rate 30, with a respiratory rate of 33. Tidal volume is 325. FiO2 60%, and PEEP of 16. Blood gases show pO2 of 80, pCO2 of 58, and a pH is 7.41. The patient is currently on propofol at 50 mcg/kg/m, saline at 20 mL an hour, Nimbex at 5 mcg/kg/m, and fentanyl 1.5 mcg/kg/h. The patient's also getting Cleveprex 5 mg an hour, and vital 1.2 at 10 mL an hour, which is goal. Chest x-ray shows no change. Microbiologic studies are currently negative. There is a small intermittent leak from the right-sided chest tube. The left- sided chest tube shows no leak so ever. The patient should be paralyzed, but apparently is overbreathing the ventilator. We will switch to a different paralytic. In addition, the ventilator may need to be switched out. White count 16.9, hemoglobin 8.9, hematocrit 29.2, and platelet count 278,000. Sodium 137, potassium 3.6, 2, CO2 33, anion gap 2, BUN 19, and creatinine 0.5. Progress note dated 10/17/2021. 61-year-old female, admitted back on 09/23/2021. The patient was again seen in room 253. She was admitted with a diagnosis of coronavirus associated pneumonia. She came to the intensive care unit on 09/25/2021, and was intubated on the same day. The patient underwent tracheostomy and PEG tube placement on 10/14/2021. She remains on the ventilator. Yesterday, or having issues with her tracheostomy tube. Her returned tidal lines were much lower than that should've been. We were able to do a bronchoscopy, suction her airway, and reposition the tracheostomy tube, which I believe was against the wall of the trachea. Currently, she is doing much better. She is on the volume assist control mode, rate 30, tidal volume 420, FiO2 80%, and PEEP of 16. Blood gases show a PaO2 of 69, pCO2 of 48, pH is 7.46. The patient is on propofol at 50 mcg/kg/m, saline at 20 mL an hour, fentanyl 1.5 mcg/kg/h, and rocuronium at 11 mcg/kg/m. The patient is also getting vital 1.2 at 10 mL an hour, which is goal. Today we will attempt to wean the FiO2. In addition, the patient will need a new arterial line, at the right radial site. Current labs include a white count 15.8, hemoglobin 8.2, hematocrit 24.4, and platelet count 271,000. Sodium 136, potassium 3.1, chlorides 100, CO2 32, anion gap 4, BUN 21, and creatinine 0.48. Chest x-ray today, shows diffuse infiltrates, and is largely unchanged. On 11/02/2021 patient seen in follow-up in the intensive care unit, she remains trached to the ventilator, sedated, currently on assist-control with a rate of 26, tidal M3 50, FiO2 of 55% and PEEP of 14. This morning's blood gas shows pO2 of 150, pCO2 of 67, and pH of 7.37, this was done on FiO2 of 70%, and FiO2 has been decreased down to 55%. Today's chest x-ray shows stable right upper lobe pneumothorax despite [address], persistent multifocal confluent increased opacity consistent with COVID-19 infection, no significant change from one day earlier. Patient is currently sedated with Diprivan at 65 mics per kilo per minute, fentanyl infusion at 2.5 mics per kilo per minute, 0.9 normal saline at a rate of 20 ML per hour, patient is on tube feedings at 10 mL per hour, with a goal of 10. Patient has [address], the medial chest tube has no air leak, remains to wall suction, and more lateral right-sided chest tube has intermittent air leak and remains to wall suction. Patient has been off the Cleviprex since yesterday morning at 10:45 in the morning, patient was placed on metoprolol 50 mg twice daily, and she remains on oral Cardizem 30 mg 4 times daily and Eliquis for new onset atrial fibrillation . Yesterday we had dexamethasone DC'd and place the patient on prednisone 60 mg daily. In addition patient is an +1.3 L net fluid balance over the last 24 hours, and patient will be given a dose of Lasix. Her oxygenation seems to have improved on today's blood gas, and we were able to contact the FiO2 down to 55%. She's had no acute events overnight. The rest of her blood work has been reviewed her white blood cell count is 7.2, hemoglobin is 8.9, platelet count is 304, sodium is 136, potassium is 4.0, chloride is 97, CO2 is 37, B1 is 20 creatinine 0.37. Her sp utum culture showed Corynebacterium species, and blood cultures have been negative. Patient has received 5 day course of Levaquin which can be discontinued at this time, her procalcitonin level was negative at 0.23. On November 03, 2021 patient seen in follow-up in intensive care unit. she remains trached to the ventilator, sedated, she is on control with a rate of 26, tidal 350, FiO2 55% and PEEP of 14. This morning's blood gas shows pO2 of 76, pCO2 of 60, and pH of 7.45. Her peak airway pressures 26, and plateau pressure of 30. Today's chest x-ray shows stable portable chest, 2 right-sided chest tubes, right-sided pneumothorax is unchanged compared to yesterday, there are scattered interstitial and alveolar infiltrates throughout both lungs unchanged. Patient is currently sedated on Diprivan at 55 mics per kilo per minute, fentanyl drip has been discontinued, patient has been getting intermittent doses of IV Dilaudid for discomfort. Patient has been hypertensive especially during periods of agitation, and sedation holidays. Yesterday patient was off sedation for 30 minutes, did not follow purposeful command. she did however become agitated, restless, and her vital signs were becoming unstable, she was very dyssynchronous with the ventilator, and she had to be placed back on sedation. Today's labs have been reviewed, her white blood cell count is 7.8, hemoglobin is 9.3, platelet count is 353, sodium is 139, potassium is 3.3, this is being replaced per protocol, in addition to scheduled doses of K-Lyte 20 in the every 3 times daily, chloride is 98, CO2 39, BUN is 19 creatinine 0.30. Patient is receiving nutrition with vital hypertension at a rate of 47 with a goal of 47 and standard water flushes. She has had no acute events overnight, she still has [address], the medial chest tube is positive for intermittent air leak, and lateral chest tube on the right side shows no air leak. Patient continues on prednisone 60 mg daily, she is on oral Cardizem, and Eliquis for anticoagulation, she remains in A. fib with a controlled rate. On 11/04/2021 patient seen in follow-up in the intensive care, she remains trached to the ventilator, she is currently not on any sedation since 4:00 yesterday afternoon. She is on assist-control with a rate of 26, tidal on his 350, FiO2 50% and PEEP of 14, this morning blood gas shows pO2 of 73, pCO2 52 and pH of 7.47. She is currently on no drips other than 0.9 normal saline at a rate of 20 ML per hour, patient has been off all sedation since yesterday 4:00 PM. Yesterday afternoon patient had developed bradycardia, with sinus pauses and the heart rate was down to 38, patient was hypotensive, Precedex was discontinued, and patient had recovered. She has not responded to any verbal stimuli, she grimaces to painful stimuli, does not follow instructions. Today's chest x-ray shows small to moderate size right pneumothorax with slight interval increase in size, currently at 3.7 cm at the apex versus 2.5 cm previously, and cardiomegaly and diffuse groundglass interstitial changes that are similar in appearance to yesterday's chest x-ray. Patient still has 2 right-sided chest tubes in place with intermittent air leaks alternating between the 2. Both chest tubes remained to wall suction. Patient is currently in sinus mechanism, slightly tachycardic with a rate of 115 BPM, currently remains on oral Cardizem 30 mg 4 times a day, Eliquis 5 mg twice a day, Lopressor 50 mg twice a day, she remains on Norvasc 10 mg daily and losartan 12.5 mg daily. Cleviprex has been off since yesterday. Blood pressure seems to be better controlled on today's exam. Patient has been afebrile. She is tolerating tube feedings. Today's labs have been reviewed, white blood cell, 10.5, hemoglobin is 9.4, platelet count is 397, sodium is 140, potassium 3.6, chloride is 101, CO2 36, B1 is 21 creatinine 0.3. The patient's family has been receiving daily updates on patient's condition from the nursing staff, at this time they're considering patient's CODE STATUS. Patient has been hospitalized for a total of 42 days, 40 days on the ventilator support. Patient has been maximizing medical treatment, currently she has not shown significant improvement, and has developed multiple complications along the way. Neurologically patient has not woken up, or followed any instructions. We will proceed with CT of the brain without contrast today. Patient's family has been updated by the nursing staff Progress note dated 11/05/2021. The patient is again seen in the intensive care unit, room 253. The patient is now been in the hospital for 43 days. The patient remains on the mechanical ventilator. The family did make the patient a DO NOT RESUSCITATE patient, yesterday. She is on the volume assist control, rate 26, tidal volume 350, FiO2 50%, and PEEP of 14. Her tear blood gases show pO2 of 74, pCO2 56, and pH is 7.42. The patient's getting saline at 50 mL an hour, propofol at 10 mcg/kg/m, a nd vital high protein at 40 mL, with a goal of 55 mL an hour. She had a brain CT, that was negative for anything acute. She has a right apical pneumothorax on chest x-ray. She has 2 right-sided chest tubes in place. White count 10.5, hemoglobin 9.3, hematocrit 31.5, platelet count 427,000. Sodium 140, potassium 3.5, chlorides 106, CO2 36, anion gap -2, BUN 20, creatinine 0.34. Chest x-ray shows a right apical pneumothorax, which may be slightly better. Progress note dated 11/06/2021. 61-year-old female again seen in the intensive care unit, room 253. She's now been in the hospital for 44 days. She was admitted with a diagnosis of coronavirus associated pneumonia. The patient remains on mechanical ventilator. She is currently on pressure regulated volume control ventilation, with a targeted tidal volume of 400, inspiratory time of 0.8 seconds, rate of 26, FiO2 of 50%, and a PEEP of 14. Blood gases show pO2 of 57, pCO2 44, and pH is 7.5. Saturations are 91-92%. The patient's getting saline at 50 mL an hour and vital high protein at 46 mL an hour, which is goal. She has 2 right-sided chest tubes. There is bit of a leak. The pneumothorax on the right is slightly large r. The patient is now a DO NOT RESUSCITATE patient. White count 14.4, hemoglobin 9, hematocrit 29.1, platelet count 409,000. Sodium 139, potassium 3.6, chlorides 105, CO2 34, BUN 23, and creatinine 0.28. Calcium is 8.6. Chest x-ray shows diffuse bilateral infiltrates. There is a right-sided apical pneumothorax. It may be a bit bigger. Two right-sided chest tubes are noted. Progress note dated 11/07/2021. 61-year-old female again seen in the intensive care unit, room 253. The patient has been here in the hospital now for 45 days. She was admitted with a diagnosis of coronavirus associated pneumonia. She remains on mechanical ventilator. She is on the VC plus modality, with a targeted tidal volume of 400, and inspiratory time of 0.8 seconds. Her set rate is 26 with a spontaneous rate of 30, FiO2 50%, and a PEEP of 14. Blood gases are excellent with a pO2 of 73, pCO2 41, and a pH is 7.49. The patient's on saline at 50 mL an hour, and vital high protein at 46 mL an hour, which is goal. The patient has 2 chest tubes on the right, one of which has a intermittent leak. The patient's arterial line is been in for quite some time. Will be discontinued, and the tip cultured. The patient will also have blood urine and sputum cultures. White count 16.2, hemoglobin 9, hematocrit 29.7, and platelet count 416,000. Sodium 139, potassium 3.4, chlorides 111, CO2 29, BUN 18, creatinine 0.3. Calcium is 8.3. Chest x-ray shows a small right-sided pneumothorax. It's actually a bit smaller than it was before. Diffuse bilateral groundglass opacities are noted. Objective - Vital Signs Vital signs: Vital Signs Temp 99.6 F 11/07/21 08:00 Pulse 114 H 11/07/21 11:00 Resp 38 H 11/07/21 11:00 BP 125/75 11/07/21 11:00 Pulse Ox 91 L 11/07/21 11:00 Intake & Output 11/06/21 11/07/21 11/07/21 18:59 06:59 18:59 Intake Total 1218 1377 376 Output Total 1184 515 700 Balance 34 862 -324 Weight 91.5 kg Intake: IV 636 689 162 Sodium Chloride 0.9% 1, 600 650 150 000 ml @ 50 mls/hr IV . Q20H [facility] Rx#:[id number] pressure bag 36 39 12 Tube Feeding 552 598 184 Other 30 90 30 Output: Chest Tube Drainage 30 15 Chest Tube Right 30 5 Chest Tube Right Pleural 10 Urine 1154 500 700 Other: Voiding Method Indwelling Catheter Indwelling Catheter Indwelling Catheter ABP, PAP, CO, CI - Last Documented Arterial Blood Pressure 122/100 - Exam No acute distress , with a midline tracheostomy tube. HEENT examination is grossly unremarkable. Neck supple. Full range of motion. No adenopathy thyromegaly or neck vein distention. Midline tracheostomy tube is noted. Cardiovascular examination reveals regular rhythm rate. S1-S2 normal. No S3 or S4. No discernible murmur noted. Heart rate 114 bpm. Heart sounds are distant. Lungs reveal coarse bilateral rhonchi. Breath sounds are equal bilaterally. No wheezes. No crackles. Saturations are 92 %. The patient has 2 chest tubes on the right. Abdomen soft, without bowel sounds. No masses. A PEG tube is noted. Extremities are intact. No cyanosis clubbing or edema. Skin is without rash or lesion. Neurologic examination reveals a somewhat responsive white female. - Labs CBC & Chem 7: 11/07/21 04:40 11/07/21 04:40 Labs: Abnormal Lab Results - Last 24 Hours (Table) 11/06/21 11/06/21 11/06/21 Range/Units 11:52 17:51 23:53 WBC (3.8-10.6) k/uL RBC (3.80-5.40) m/uL Hgb (11.4-16.0) gm/dL Hct (34.0-46.0) % MCHC (31.0-37.0) g/dL RDW (11.5-15.5) % Neutrophils # (1.3-7.7) k/uL ABG pH (7.35-7.45) ABG pO2 (83-108) mmHg ABG HCO3 (21-25) mmol/L ABG Total CO2 (19-24) mmol/L Potassium (3.5-5.1) mmol/L Chloride (98-107) mmol/L BUN (7-17) mg/dL Creatinine (0.52-1.04) mg/dL Glucose (74-99) mg/dL POC Glucose (mg/dL) 211 H 190 H 126 H (75-99) mg/dL Calcium (8.4-10.2) mg/dL 11/07/21 11/07/21 11/07/21 Range/Units 04:40 04:40 05:28 WBC 16.2 H (3.8-10.6) k/uL RBC 3.26 L (3.80-5.40) m/uL Hgb 9.0 L (11.4-16.0) gm/dL Hct 29.7 L (34.0-46.0) % MCHC 30.2 L (31.0-37.0) g/dL RDW 16.2 H (11.5-15.5) % Neutrophils # 12.0 H (1.3-7.7) k/uL ABG pH 7.50 H (7.35-7.45) ABG pO2 73 L (83-108) mmHg ABG HCO3 32 H (21-25) mmol/L ABG Total CO2 33 H (19-24) mmol/L Potassium 3.4 L (3.5-5.1) mmol/L Chloride 111 H (98-107) mmol/L BUN 18 H (7-17) mg/dL Creatinine 0.30 L (0.52-1.04) mg/dL Glucose 106 H (74-99) mg/dL POC Glucose (mg/dL) (75-99) mg/dL Calcium 8.3 L (8.4-10.2) mg/dL 11/07/21 Range/Units 05:42 WBC (3.8-10.6) k/uL RBC (3.80-5.40) m/uL Hgb (11.4-16.0) gm/dL Hct (34.0-46.0) % MCHC (31.0-37.0) g/dL RDW (11.5-15.5) % Neutrophils # (1.3-7.7) k/uL ABG pH (7.35-7.45) ABG pO2 (83-108) mmHg ABG HCO3 (21-25) mmol/L ABG Total CO2 (19-24) mmol/L Potassium (3.5-5.1) mmol/L Chloride (98-107) mmol/L BUN (7-17) mg/dL Creatinine (0.52-1.04) mg/dL Glucose (74-99) mg/dL POC Glucose (mg/dL) 125 H (75-99) mg/dL Calcium (8.4-10.2) mg/dL Assessment and Plan Assessment: Acute hypoxemic respiratory failure secondary to coronavirus associated pneumonia, status post intubation, and mechanical ventilation on 09/25/2021, with tracheostomy and PEG tube placement on 10/14/2021. No evidence of pulmonary embolism on CT angiogram. Acute bilateral pneumothoraces, status post bilateral chest tube placements, on 10/11/2021. Currently, no left-sided chest tube, and 2 chest tubes on the right. Status post bronchoscopy, on 10/16/2021, to reposition the tracheostomy tube. Acute blood loss anemia. New-onset atrial fibrillation, stable. Extensive subcutaneous emphysema, as a complication of mechanical ventilation and coronavirus associated pneumonia. Acute deep vein thrombosis. Mild transaminitis secondary to coronavirus infection. Primary hypercoagulable state in the form of Leiden factor deficiency/factor V deficiency. Nonsustained ventricular tachycardia, resolved. Prior history of DVT. History of fibromyalgia. History of arthritis. History of degenerative disc disease. Lifelong non-tobacco user. Plan: Plan dated 09/24/2021. The patient is not a candidate for REM, and she's had symptoms for more than 7 days. Actually sees, symptoms date back to September 10. The patient's chron ically on warfarin, for her factor V deficiency. The patient does qualify for Decadron. In addition, the patient should be on vitamin C, vitamin D3, and zinc. Additional recommendations and suggestions are forthcoming. Prognosis is guarded. The patient is currently on Levaquin. That may disqualify her from [facility]. Plan dated 09/25/2021. The patient's blood gases suggests worsening respiratory status, and therefore, the patient was transferred down to the intensive care unit. The patient was on saline, at 50 mL an hour. Blood gases again showed a pO2 of only 49, and a pCO2 32, with a pH is 7.42. This is on BiPAP, at 100%. I did speak to her and her about the fact that she may require intubation and mechanical ventilation, before the end of the day. She will continue on Coumadin, as well as Decadron, and vitamins. The patient was placed on Levaquin. Her pro-calcitonin level was elevated. This likely disqualifies her for [facility]. We will continue to follow and make recommendations where appropriate. Prognosis is certainly guarded. Plan dated 09/26/2021. The patient was intubated and mechanically ventilated yesterday. A right radial art line was placed as was a left-sided triple-lumen catheter. The patient's currently sedated and paralyzed. Tube feedings will start today. She did get fluid resuscitation yesterday. She remains on a small dose of norepinephrine. The patient will have labs ordered for the morning including a CBC, basic metabolic profile, and blood gas. The patient remains on Coumadin. In addition, the patient will have a chest x-ray ordered for the morning. Tube feedings will be started today. Prognosis is guarded. We will continue to follow and make recommendations where appropriate. Prognosis is certainly very guarded. Plan dated 10/11/2021. Labs, x-rays, and medications are reviewed. A left-sided chest tube was placed by our team today. In addition, surgery has been consulted for possible tracheostomy and PEG tube placement. The patient remains on propofol, fentanyl, and Nimbex. The patient is on the mechanical ventilator, on 90% FiO2 and PEEP of 16. Additional recommendations and suggestions are forthcoming. Tube feedings are currently going to be placed on hold for possible tracheostomy and PEG tube placement. We will continue to follow and make recommendations where appropriate. Plan dated 10/12/2021. The patient developed bilateral pneumothoraces, and required bilateral chest tube placements, on October 11. There is some bleeding from the left-sided chest tube. The patient did receive vitamin K, fresh shows some plasma, and 4 factor prothrombin complex concentrate. In addition, the patient is going to receive 1 unit of packed red blood cells. I asked the nurse to call the surgeon to delay surgery. I was able to speak to the patient's , Taco. He is going to talk to the rest of the family about CODE STATUS and whether or not they wish to withdrawal of I support. I spoke to him for about 20 minutes on the phone. The patient remains on propofol, fentanyl, Nimbex, and no repinephrine. Prognosis is poor. We will continue to follow and make recommendations where appropriate. Plan dated 10/13/2021. The patient hopefully will proceed to tracheostomy and PEG tube placement. The patient's currently much more stable today than she was yesterday. We did talk to the about CODE STATUS. He has not made any decision as yet. The patient remains on Nimbex, propofol, and fentanyl. The patient is also receiving Cleveprex for elevated blood pressure. We will continue to follow make recommendations where appropriate. Prognosis is guarded. Labs, x-rays, and medications are all reviewed. Plan dated 10/14/2021. The patient should have a tracheostomy and PEG tube placed today. Currently, the patient remains on fentanyl, Nimbex, and propofol. In addition, the patient's on Cleveprex for blood pressure control. The patient's FiO2 was increased from 60% up to 70%, based on the blood gas today. We will continue to follow and make recommendations where appropriate. Labs, x-rays, and medications are all reviewed. Prognosis is guarded. I did speak to the about CODE STATUS. The patient is full code for now. Plan dated 10/15/2021. The patient had a tracheostomy and PEG tube placed on October 14. The patient remains on propofol, Nimbex, and fentanyl. We will attempt to discontinue the Nimbex at possible. The patient is started back on Eliquis, at 5 mg twice a day. Currently, we are going to DC Diflucan. There is a small air leak on the right chest tube area chest x-ray does not show any evidence of pneumothorax. She does have bilateral diffuse infiltrates. Currently, the patient is a full code. I did speak to the a couple days ago. Prognosis is guarded. We will continue to follow make recommendations where appropriate. The patient has now been in the hospital for 22 days. Plan dated 10/16/2021. The patient had a tracheostomy tube placed and PEG tube placement on October 14. The patient remains on Nimbex fentanyl and propofol. Interestingly, she does not appear that she is properly paralyzed. We may need to change to different paralytic or change off the ventilator. The patient remains on Cleveprex at 5 mg an hour. The patient's microbiologic studies are negative. Chest x-ray shows no changes. Additional recommendations and suggestions are forthcoming. We will continue to follow make recommendations where appropriate. Culture data as mentioned is negative. The patient is not on any antibiotics. Prognosis is guarded. Plan dated 10/17/2021. The patient had a bronchoscopy performed yesterday, to help reposition the tracheostomy tube. I believe that was up against the wall of the trachea. The patient's exhaled tidal volumes are much lower than that should've been. The patient remains on rocuronium, fentanyl, and propofol. In addition, the patient had a new arterial line placed, in the right radial artery. The other arterial line was not working properly. Culture data thus far negative. The patient is currently not on antibiotics. We will continue to follow and make recommendations where appropriate. Prognosis is guarded. I did speak to the patient's and daughter yesterday. Plan dated 11/05/2021. Currently, the patient seems be about the same today as she was yesterday. Chemical ventilation. Her propofol dose is 10 mcg/kg/m. She is getting tube feedings. She has 2 right-sided chest tube. Because of mental status changes, she had a computed tomography scan of the brain yesterday, which showed no acute abnormality. Her chest x-ray shows a right apical pneumothorax, which is slightly better today than it was yesterday. There is no left-sided chest tube. There are 2 chest tubes on the right. We will continue to follow make recommendations were appropriate. Overall prognosis remains very guarded. I have talked to the family in the past. Plan dated 11/06/2021. The patient seems about the same today as she was yesterday. The right-sided pneumothorax is just a bit larger. There is a small leak from one of the chest tubes. She remains on mechanical ventilation. Currently, she's not receiving any sedation. Yesterday, we changed to pressure regulated volume control ventilation or VC plus. She seems to be doing better with that mode. The patient remains on tube feedings. The patient is now a DO NOT RESUSCITATE patient. We will continue to follow make recommendations where appropriate. Prognosis is certainly guarded. We have been in contact with the family, and giving them updates, as necessary. Plan dated 11/07/2021. The patient is about the same today as she was yesterday. She has been off of propofol for a number of days. The right-sided pneumothorax today is a bit smaller. She has 2 right-sided chest tubes. The patient continues on pressure regulated volume control mode of ventilation. The patient is now a DO NOT RESUSCITATE as per the family. Labs, x-rays, and medications are all reviewed. The arterial line will be discontinued in the tip will be cultured. In addition, because of slight temperature elevation, the patient will have blood sputum and urine cultures. The patient is currently off all antibiotics. Prognosis is very guarded. We will continue to follow make recommendations where appropriate. Time with Patient: Greater than 30
[2021-11-07 11:48] LABS: Glucose,Whole Blood 202 mg/dL (75-99)
[2021-11-07] MEDS: SODIUM CHLORIDE 0.9% 1,000 ML IV SCH (17:18)
[2021-11-07 18:30] LABS: Glucose,Whole Blood 213 mg/dL (75-99)
--- NOTE | 2021-11-07 21:30 | P.PN ---
Subjective This is a 61-year-old female who was recently admitted with acute COVID-19 pneumonia with acute COVID-19 bilateral interstitial pneumonia and also with transaminitis and being closely monitored. Patient remains in the ICU and currently intubated and sedated with an FiO2 of 70% and PEEP is 18. 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 Patient did have a venous Doppler study done recently which showed left leg DVT and patient is maintained on Eliquis will continue. Patient also continues on empiric antibiotics and awaiting for sputum culture finalized. Patient was started on IV cefepime and will continue. Patient is also continued on oral dexamethasone along with vitamin and zinc supplements and will continue. Patient with some mild volume overload and given a dose of IV L asix push today. 11/03/2021 Patient is seen in follow-up this morning and continues to be closely monitored in the ICU with multiple medical consultations following. Per nursing staff working on weaning sedation and is currently off propofol to assess and no responses noted and patient is not following commands. FiO2 titrated down to 45% with a PEEP of 14 and currently on Precedex for hypertension. Chest xray shows stable scattered interstitial and alveolar infiltrates throughout both lung patterson that persist and are unchanged. Potassium is low at 3.3 and will replace per protocol and recommend repeat labs. 11/04/2021 Patient is seen and evaluated today and continues to be in critical condition. Continued right chest tubes x2 and chest xray today shows some increase in size of the pneumothorax on the right. Patient is off sedation since yesterday and does not respond to commands only painful stimuli. CT brain ordered and pending. Patient currently on precidex and having multiple issues with blood pressure. Code status was changed to no code by family today. Patient continues on vent and FI02 is 50% with a peep of 14. Overall prognosis is extremely poor and guarded. 11/05/2021 Patient continues in the ICU being closely monitored. Fi02 is 50% with a peep of 14. Patient also continues with 2 right side chest tubes with chest xray showing possible slight improvement in the size of right side pneumothorax and otherwise stable chest. Patient continues on eliquis along with oral prednisone and vitamin and zinc supplements. Patient is off propofol and not following command s. CT brain was negative yesterday. 11/06/2021 Patient with bilateral pneumonia and acute hypoxic respiratory failure requiring intubation and mechanical ventilation with pulmonary/critical care team following him closely and help with vent management. Patient has prolonged course in the hospital and intensive care unit. And his courses marked by several complications including bilateral pneumothoraces status post chest tubes, more on the right side. New-onset A. 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 His condition remains critical. Distal hypoxic requiring high FiO2 50%, his blood pressure is borderline 80/53, he had no fever today but yesterday his temperature was found and draped. He is tachypneic and 28. He is kept on Eliquis 5 mg, prednisone 60 mg, normal saline 50 mg as well as vitamin C, D and zinc. He is also on Protonix and Cardizem 30 mg 4 times a day 11/07/2021 Patient remains intubated on mechanical ventilation with pulmonary/critical care team following her closely and help with her ICU management and vent management. Patient still tachypneic, tachycardic and low-grade fever of 100.2. Blood pr essure is a stable on pressors were discontinued. WBC is 16.2, hemoglobin 9. She has sputum culture showing Corynebacterium but repeat sputum culture is pending. Chest x-ray showing small right pneumothorax and similar diffuse bilateral ground glass opacity. She remains on Eliquis 5 mg, prednisone, normal saline at 50 and vitamins. Antibiotics were discontinued by pulmonary/critical care team and they recommended to keep monitoring while she is off antibiotics. She has DO NOT RESUSCITATE order. Family Objective - Vital Signs Vital signs: Vital Signs Temp 99.6 F 11/07/21 08:00 Pulse 107 H 11/07/21 10:00 Resp 44 H 11/07/21 10:00 BP 137/73 11/07/21 10:00 Pulse Ox 90 L 11/07/21 10:00 Intake & Output 11/06/21 11/07/21 11/07/21 18:59 06:59 18:59 Intake Total 1218 1377 297 Output Total 1184 515 575 Balance 34 862 -278 Weight 91.5 kg Intake: IV 636 689 159 Sodium Chloride 0.9% 1, 600 650 150 000 ml @ 50 mls/hr IV . Q20H [facility] Rx#:[id number] pressure bag 36 39 9 Tube Feeding 552 598 138 Other 30 90 Output: Chest Tube Drainage 30 15 Chest Tube Right 30 5 Chest Tube Right Pleural 10 Urine 1154 500 575 Other: Voiding Method Indwelling Catheter Indwelling Catheter ABP, PAP, CO, CI - Last Documented Arterial Blood Pressure 120/111 - Exam -GENERAL: The patient is intubated and sedated HEENT: Pupils are round and equally reacting to light. EOMI. No scleral icterus. No conjunctival pallor. Normocephalic, atraumatic. No pharyngeal erythema. No thyromegaly. CARDIOVASCULAR: S1 and S2 present. No murmurs, rubs, or gallops. -PULMONARY: Bilateral decreased breath sounds with bilateral crepitation ABDOMEN: Soft, nontender, nondistended, normoactive bowel sounds. No palpable organomegaly. MUSCULOSKELETAL: No joint swelling or deformity. EXTREMITIES: No cyanosis, clubbing, or pedal edema. NEUROLOGICAL: Gross neurological examination did not reveal any focal deficits. SKIN: No rashes. no petechiae. - Labs CBC & Chem 7: 11/07/21 04:40 11/07/21 04:40 Labs: Abnormal Lab Results - Last 24 Hours (Table) 11/06/21 11/06/21 11/06/21 Range/Units 11:52 17:51 23:53 WBC (3.8-10.6) k/uL RBC (3.80-5.40) m/uL Hgb (11.4-16.0) gm/dL Hct (34.0-46.0) % MCHC (31.0-37.0) g/dL RDW (11.5-15.5) % Neutrophils # (1.3-7.7) k/uL ABG pH (7.35-7.45) ABG pO2 (83-108) mmHg ABG HCO3 (21-25) mmol/L ABG Total CO2 (19-24) mmol/L Potassium (3.5-5.1) mmol/L Chloride (98-107) mmol/L BUN (7-17) mg/dL Creatinine (0.52-1.04) mg/dL Glucose (74-99) mg/dL POC Glucose (mg/dL) 211 H 190 H 126 H (75-99) mg/dL Calcium (8.4-10.2) mg/dL 11/07/21 11/07/21 11/07/21 Range/Units 04:40 04:40 05:28 WBC 16.2 H (3.8-10.6) k/uL RBC 3.26 L (3.80-5.40) m/uL Hgb 9.0 L (11.4-16.0) gm/dL Hct 29.7 L (34.0-46.0) % MCHC 30.2 L (31.0-37.0) g/dL RDW 16.2 H (11.5-15.5) % Neutrophils # 12.0 H (1.3-7.7) k/uL ABG pH 7.50 H (7.35-7.45) ABG pO2 73 L (83-108) mmHg ABG HCO3 32 H (21-25) mmol/L ABG Total CO2 33 H (19-24) mmol/L Potassium 3.4 L (3.5-5.1) mmol/L Chloride 111 H (98-107) mmol/L BUN 18 H (7-17) mg/dL Creatinine 0.30 L (0.52-1.04) mg/dL Glucose 106 H (74-99) mg/dL POC Glucose (mg/dL) (75-99) mg/dL Calcium 8.3 L (8.4-10.2) mg/dL 11/07/21 Range/Units 05:42 WBC (3.8-10.6) k/uL RBC (3.80-5.40) m/uL Hgb (11.4-16.0) gm/dL Hct (34.0-46.0) % MCHC (31.0-37.0) g/dL RDW (11.5-15.5) % Neutrophils # (1.3-7.7) k/uL ABG pH (7.35-7.45) ABG pO2 (83-108) mmHg ABG HCO3 (21-25) mmol/L ABG Total CO2 (19-24) mmol/L Potassium (3.5-5.1) mmol/L Chloride (98-107) mmol/L BUN (7-17) mg/dL Creatinine (0.52-1.04) mg/dL Glucose (74-99) mg/dL POC Glucose (mg/dL) 125 H (75-99) mg/dL Calcium (8.4-10.2) mg/dL Assessment and Plan Assessment: Acute COVID-19 infection with acute COVID-19 bilateral interstitial pneumonia with hypoxic hypercarbic respiratory failure on mechanical vent status post trach and peg tube placement on 10/14/2021 Worsening right side pneumothorax status post chest tube placement and thoravent removal on 10/29/2021 bilateral pneumothoraces with chest tube placement and status post removal of chest tubes 2.3.2021 Atrial fibrillation, new onset, currently rate controlled on metoprolol and cardizem Non-sustained ventricular tachycardia, currently sinus Acute left leg deep vein thrombosis Primary hypercoagulable state and factor V deficiency Obesity with a body mass index of 36.0 DVT prophylaxis: on Eliquis No code Plan: This is a pleasant 61 years old female with covert pneumonia, hypoxia, DVT and A. fib. Continue with multiple vitamins and prednisone 60 mg Continue with gentle hydration normal saline 50 ml per hour Continue with the Eliquis cardiology and pulmonary/critical care team on the c ase. Labs and medication were reviewed.. Continue same treatment. Continue with symptomatic treatment. Resume home medication. Monitor lytes and vitals. DVT and GI prophylaxis. Further recommendations as per clinical course of the patient DVT prophylaxis: Eliquis GI Prophylaxis: Ppi Prognosis is extremely guarded
[2021-11-08 00:39] LABS: Glucose,Whole Blood 150 mg/dL (75-99)
[2021-11-08] MEDS: INSULIN ASPART (NovoLOG) 100 UNIT/ML VIAL SQ SCH ×4 (00:45→17:16)
[2021-11-08] MEDS: HYDROmorphone 1 MG/ML 1 ML SYRINGE IVP PRN ×5 (02:26→20:26)
[2021-11-08 06:18] LABS: Glucose,Whole Blood 113 mg/dL (75-99)
[2021-11-08 06:25] LABS: ABG Base Excess 6.9 mmol/L; ABG HCO3 31 mmol/L (21-25); ABG Oxygen Saturation 95.5 % (94-97); ABG PCO2 47 mmHg (35-45); ABG PH 7.43 (7.35-7.45); ABG PO2 75 mmHg (83-108); ABG TCO2 33 mmol/L (19-24); Allen Test Performed? Yes
[2021-11-08 06:50] LABS: Anisocytosis Slight; Basophils # (A) 0.1 k/uL (0-0.2); Basophils % (A) 1 %; Eosinophils # (A) 0.1 k/uL (0-0.7); Eosinophils % (A) 1 %; HCT 29.9 % (34.0-46.0); HGB 9.2 gm/dL (11.4-16.0); Hypochromasia Marked; Lymphocytes # (A) 2.4 k/uL (1.0-4.8); Lymphocytes % (A) 17 %; MCHC 30.8 g/dL (31.0-37.0); MCV 94.4 fL (80.0-100.0); Mean Platelet Volume 8.9; Monocytes # (A) 0.8 k/uL (0-1.0); Monocytes % (A) 6 %; Neutrophils # (A) 10.8 k/uL (1.3-7.7); Neutrophils % (A) 75 %; Platelet Count 362 k/uL (150-450); RBC 3.17 m/uL (3.80-5.40); RDW 16.2 % (11.5-15.5); WBC 14.3 k/uL (3.8-10.6)
[2021-11-08 07:29] LABS: African American GFR (CKD) >90 (>60 ml/min/1.73 sqM); Anion Gap 2 mmol/L; Blood Urea Nitrogen 18 mg/dL (7-17); Calcium 8.6 mg/dL (8.4-10.2); Carbon Dioxide 27 mmol/L (22-30); Chloride 110 mmol/L (98-107); Glucose 115 mg/dL (74-99); Non-African American GFR(CKD) >90 (>60 ml/min/1.73 sqM); Potassium 3.6 mmol/L (3.5-5.1); Sodium 139 mmol/L (137-145)
[2021-11-08] MEDS: ASCORBIC ACID 500 MG TAB PO SCH ×2 (08:54→20:24)
[2021-11-08] MEDS: ZINC SULFATE 220 MG CAP PO SCH (08:54)
[2021-11-08] MEDS: PANTOPRAZOLE 40 MG/10 ML VIAL IV SCH (08:54)
[2021-11-08] MEDS: POTASSIUM BICARBONATE/CIT AC 20 MEQ TABLET.EFF PO SCH ×3 (08:54→21:14)
[2021-11-08] MEDS: amLODIPine 10 MG TAB PO SCH (08:54)
[2021-11-08] MEDS: predniSONE 20 MG TAB PO SCH (08:54)
[2021-11-08] MEDS: DILTIAZEM ORAL 30 MG TAB PO SCH ×4 (08:54→21:14)
[2021-11-08] MEDS: QUEtiapine 50 MG TAB PO SCH (08:54)
[2021-11-08] MEDS: LOSARTAN 25 MG TAB PO SCH (08:55)
[2021-11-08] MEDS: NYSTATIN 100,000 UNIT/ML SUSP 500,000 UNIT/5 ML CUP PO SCH ×4 (08:55→21:27)
[2021-11-08] MEDS: APIXABAN 5 MG TAB PO SCH ×2 (08:55→20:24)
[2021-11-08] MEDS: METOPROLOL TARTRATE 50 MG TAB PO SCH ×2 (08:55→20:24)
--- NOTE | 2021-11-08 09:17 | XR ---
"EXAMINATION TYPE: XR chest 1V portable DATE OF EXAM: 11/08/2021 COMPARISON: 11/07/2021 INDICATION: Covid TECHNIQUE: Single frontal view of the chest is obtained. FINDINGS: The heart size is normal. The pulmonary vasculature is slightly prominent. Diffuse groundglass opacity is present. Patchy infiltrate at the left base. There is enlargement of the right sided pneumothorax. Lung apex to the upper thoracic cavity currentl y measures 2.9 cm, increased from 1.1 cm. 2 right-sided chest tubes are present. Tracheostomy tube is in the midline. PICC line enters on the right with the tip in the proximal right atrium. IMPRESSION: 1. Increasing size right-sided pneumothorax. 2. Lines and catheters discussed above. 3. Suggestion of diffuse pulmonary edema. A [place] critical message alert has been initiated for Ash Pope [id number] via the [facility] | Critical Results System on 11/08/2021 9:14 AM. This message alert has been sent to Ash jensen [id number] via the preferences provided by the clinician for the receipt of Radiology Critical Findings. Message ID [id number]."
[2021-11-08 09:53] LABS: Glucose,Whole Blood 138 mg/dL (75-99)
--- NOTE | 2021-11-08 11:31 | P.GSCN ---
<Selma Jose - Last Filed: 11/08/21 12:49> History of Present Illness Consult date: 11/08/21 Reason for Consult: Right-sided pneumothorax Requesting physician: Jose Manuel Ramirez History of present illness: This is a 61-year-old female patient who follows on an outpatient basis with Dr. Gay for primary care. She has a previous medical history of multiple comorbidities including but not limited to factor V leiden disorder on chronic Coumadin, DVT, arthritis, never smoker. She has been hospitalized at [facility] for 46 days, she originally came into the emergency room on September 23 with complaints of shortness of breath since [place] which was getting progressively worse. She remains unvaccinated and was found to be Covid po sitive on admission. Initially she was on BiPAP but quickly required ICU admission and intubation, she has been intubated ever since September 25. During her hospitalization she developed bilateral pneumothoraces with chest tube placement. The left pneumothorax has since healed, however the patient has had multiple right sided chest tube re-placements, most recently placed October 29. Her pneumothorax appeared worse this morning on x-ray and subsequently consultation was placed to cardiothoracic surgery for treatment recommendations. Of note, over the course of her 46 days being hospitalized she has had a PICC line placed, tracheostomy and PEG tube placement October 14, she has had inte rmittent atrial fibrillation as well as left lower extremity DVT on Eliquis for anticoagulation, leukocytosis and low-grade fevers, as well as CT of the brain on November 04 for mental status change with no acute process noted, and CT of the brain today for left-sided weakness. Apparently she has been off sedation for several days and has followed some commands but remains very weak on the left side. Review of Systems Review of systems taken from the chart as patient remains mechanically ventilated and is not currently following commands - Constitutional Reports as per HPI - Respiratory Reports as per HPI, Reports dyspnea Past Medical History Past Medical History: Deep Vein Thrombosis (DVT), Fibromyalgia, Pneumonia Additional Past Medical History / Comment(s): Clotting disorder (factor V leiden on coumadin). arthritis. plate in neck. developed while in hospital afib, DVT left lower extremity History of Any Multi-Drug Resistant Organisms: None Reported Past Surgical History: Cholecystectomy, Hysterectomy Additional Past Surgical History / Comment(s): carpal tunnel surgery. plate neck. tracheostomy and peg tube placement 10/14/21 Past Psychological History: No Psychological Hx Reported Smoking Status: Never smoker Past Alcohol Use History: None Reported Past Drug Use History: None Reported Medications and Allergies Home Medications Medication Instructions Recorded Confirmed Type Ergocalciferol [Vitamin D2] 50,000 unit PO MORRIS 07/04/20 09/23/21 History Meloxicam [Mobic] 7.5 mg PO DAILY 07/04/20 09/23/21 History Warfarin Sodium [Jantoven] 6 mg PO DAILY 07/04/20 09/23/21 History metHOTREXate sodium [Methotrexate] 20 mg PO FR 07/04/20 09/23/21 History Allergies Allergy/AdvReac Type Severity Reaction Status Date / Time cefaclor [From Ceclor] Allergy Unknown Verified 09/23/21 19:51 cephalexin [From Keflex] Allergy Unknown Verified 09/23/21 19:51 cyclobenzaprine Allergy Unknown Verified 09/23/21 19:51 [From Flexeril] Penicillins Allergy Unknown Verified 09/23/21 19:51 Sulfa (Sulfonamide Allergy Unknown Verified 09/23/21 19:51 Antibiotics) acetaminophen [From Tylenol] AdvReac Rash/Hives Verified 09/23/21 19:51 codeine AdvReac Rash/Hives Verified 09/23/21 19:51 enoxaparin [From Lovenox] AdvReac Unknown Verified 10/07/21 17:06 erythromycin base AdvReac Rash/Hives Verified 09/23/21 19:51 Surgical - Exam Vital Signs Temp Pulse Resp BP Pulse Ox 98.5 F 78 16 110/64 80 L 09/23/21 17:29 09/23/21 17:29 09/23/21 17:29 09/23/21 17:29 09/23/21 17:29 CONSTITUTIONAL: Remains on mechanical ventilation with tracheostomy, well- developed, well-nourished, obese EYES: Pupils equal, round, reactive to light, normal ocular movement ENT: Moist mucous membranes without oral lesions present NECK: No masses, no bruits, trachea midline. Tracheostomy present RESPIRATORY: Lungs sounds coarse, diminished on the right side. Respirations currently tachypneic. Currently on mechanical ventilation through tracheostomy, assist control mode with FiO2 50%, tidal volume 400, respiratory rate 26, PEEP 14. CARDIOVASCULAR: S1, S2 present. Tachycardic but regular rate and rhythm, sinus tach on telemetry. Palpable peripheral pulses bilaterally. Left lower extremity edema present. GASTROINTESTINAL: Abdomen soft, nontender, nondistended without masses or organomegaly noted. There is no rebound or guarding present. Active bowel sounds present 4 quadrants. Tube feeding infusing through PEG at 46 mL/h GENITOURINARY: Golden present draining yellow urine INTEGUMENTARY: Skin is warm and dry NEUROLOGIC: Does open her eyes to commands and shakes had no when asked if in pain, withdraws to painful stimuli to the her right upper and lower extremities INVASIVE LINES: Right-sided double-lumen PICC present. Right-sided pleural chest tubes present 2, no air leaks present in either chest tube, serous drainage present Results - Labs 11/08/21 06:14 11/08/21 06:14 Abnormal Lab Results - Last 24 Hours (Table) 11/07/21 11/07/21 11/08/21 Range/Units 11:46 18:28 00:38 WBC (3.8-10.6) k/uL RBC (3.80-5.40) m/uL Hgb (11.4-16.0) gm/dL Hct (34.0-46.0) % MCHC (31.0-37.0) g/dL RDW (11.5-15.5) % Neutrophils # (1.3-7.7) k/uL ABG pCO2 (35-45) mmHg ABG pO2 (83-108) mmHg ABG HCO3 (21-25) mmol/L ABG Total CO2 (19-24) mmol/L Chloride (98-107) mmol/L BUN (7-17) mg/dL Creatinine (0.52-1.04) mg/dL Glucose (74-99) mg/dL POC Glucose (mg/dL) 202 H 213 H 150 H (75-99) mg/dL 11/08/21 11/08/21 11/08/21 Range/Units 05:46 06:14 06:14 WBC 14.3 H (3.8-10.6) k/uL RBC 3.17 L (3.80-5.40) m/uL Hgb 9.2 L (11.4-16.0) gm/dL Hct 29.9 L (34.0-46.0) % MCHC 30.8 L (31.0-37.0) g/dL RDW 16.2 H (11.5-15.5) % Neutrophils # 10.8 H (1.3-7.7) k/uL ABG pCO2 47 H (35-45) mmHg ABG pO2 75 L (83-108) mmHg ABG HCO3 31 H (21-25) mmol/L ABG Total CO2 33 H (19-24) mmol/L Chloride 110 H (98-107) mmol/L BUN 18 H (7-17) mg/dL Creatinine 0.25 L (0.52-1.04) mg/dL Glucose 115 H (74-99) mg/dL POC Glucose (mg/dL) (75-99) mg/dL 11/08/21 11/08/21 Range/Units 06:17 09:50 WBC (3.8-10.6) k/uL RBC (3.80-5.40) m/uL Hgb (11.4-16.0) gm/dL Hct (34.0-46.0) % MCHC (31.0-37.0) g/dL RDW (11.5-15.5) % Neutrophils # (1.3-7.7) k/uL ABG pCO2 (35-45) mmHg ABG pO2 (83-108) mmHg ABG HCO3 (21-25) mmol/L ABG Total CO2 (19-24) mmol/L Chloride (98-107) mmol/L BUN (7-17) mg/dL Creatinine (0.52-1.04) mg/dL Glucose (74-99) mg/dL POC Glucose (mg/dL) 113 H 138 H (75-99) mg/dL Microbiology - Last 24 Hours (Table) 11/07/21 11:53 Catheter Tip Culture - Preliminary Catheter Tip 11/07/21 11:41 Gram Stain - Preliminary Sputum Sputum Culture - Preliminary 11/07/21 11:53 Urine Culture - Preliminary Urine,Catheterized Diabetes panel 11/08/21 Range/Units 06:14 Sodium 139 (137-145) mmol/L Potassium 3.6 (3.5-5.1) mmol/L Chloride 110 H (98-107) mmol/L Carbon Dioxide 27 (22-30) mmol/L BUN 18 H (7-17) mg/dL Creatinine 0.25 L (0.52-1.04) mg/dL Glucose 115 H (74-99) mg/dL Calcium 8.6 (8.4-10.2) mg/dL Calcium panel 11/08/21 Range/Units 06:14 Calcium 8.6 (8.4-10.2) mg/dL Pituitary panel 11/08/21 Range/Units 06:14 Sodium 139 (137-145) mmol/L Potassium 3.6 (3.5-5.1) mmol/L Chloride 110 H (98-107) mmol/L Carbon Dioxide 27 (22-30) mmol/L BUN 18 H (7-17) mg/dL Creatinine 0.25 L (0.52-1.04) mg/dL Glucose 115 H (74-99) mg/dL Calcium 8.6 (8.4-10.2) mg/dL Adrenal panel 11/08/21 Range/Units 06:14 Sodium 139 (137-145) mmol/L Potassium 3.6 (3.5-5.1) mmol/L Chloride 110 H (98-107) mmol/L Carbon Dioxide 27 (22-30) mmol/L BUN 18 H (7-17) mg/dL Creatinine 0.25 L (0.52-1.04) mg/dL Glucose 115 H (74-99) mg/dL Calcium 8.6 (8.4-10.2) mg/dL - Imaging Chest x-ray: report reviewed, image reviewed Assessment and Plan Assessment: 1. Continued right-sided pneumothorax despite chest tube placement 2. Acute hypoxic respiratory failure requiring mechanical ventilation 3. Covid pneumonia on admission, remains on vaccinated 4. Leukocytosis with low-grade fever 5. Acute DVT to left lower extremity this admission on Eliquis, with history of prior DVT 6. New diagnosis of paroxysmal atrial fibrillation this admission, currently in sinus 7. History of factor V leiden disorder on Coumadin at home 8. Multiple other comorbidities Plan: The patient was seen and examined in the intensive care unit. She does appear to be in a bit of distress as she just returned from CT. Both chest tubes were examined and appeared to be patent, there is no air leak present in either chest tube. Case discussed with Dr. Gunn, plan for apical chest tube placement. Medical management of other comorbidities per primary care, inventory control specialist service. Thank you Dr. Ramirez for this consult. Time with Patient: Greater than 30 <Marie Gunney - Last Filed: 11/08/21 14:07> Surgical - Exam Vital Signs Temp Pulse Resp BP Pulse Ox 98.5 F 78 16 110/64 80 L 09/23/21 17:29 09/23/21 17:29 09/23/21 17:29 09/23/21 17:29 09/23/21 17:29 Results - Labs 11/08/21 06:14 11/08/21 06:14 Abnormal Lab Results - Last 24 Hours (Table) 11/07/21 11/08/21 11/08/21 Range/Units 18:28 00:38 05:46 WBC (3.8-10.6) k/uL RBC (3.80-5.40) m/uL Hgb (11.4-16.0) gm/dL Hct (34.0-46.0) % MCHC (31.0-37.0) g/dL RDW (11.5-15.5) % Neutrophils # (1.3-7.7) k/uL ABG pCO2 47 H (35-45) mmHg ABG pO2 75 L (83-108) mmHg ABG HCO3 31 H (21-25) mmol/L ABG Total CO2 33 H (19-24) mmol/L Chloride (98-107) mmol/L BUN (7-17) mg/dL Creatinine (0.52-1.04) mg/dL Glucose (74-99) mg/dL POC Glucose (mg/dL) 213 H 150 H (75-99) mg/dL 11/08/21 11/08/21 11/08/21 Range/Units 06:14 06:14 06:17 WBC 14.3 H (3.8-10.6) k/uL RBC 3.17 L (3.80-5.40) m/uL Hgb 9.2 L (11.4-16.0) gm/dL Hct 29.9 L (34.0-46.0) % MCHC 30.8 L (31.0-37.0) g/dL RDW 16.2 H (11.5-15.5) % Neutrophils # 10.8 H (1.3-7.7) k/uL ABG pCO2 (35-45) mmHg ABG pO2 (83-108) mmHg ABG HCO3 (21-25) mmol/L ABG Total CO2 (19-24) mmol/L Chloride 110 H (98-107) mmol/L BUN 18 H (7-17) mg/dL Creatinine 0.25 L (0.52-1.04) mg/dL Glucose 115 H (74-99) mg/dL POC Glucose (mg/dL) 113 H (75-99) mg/dL 11/08/21 11/08/21 Range/Units 09:50 11:40 WBC (3.8-10.6) k/uL RBC (3.80-5.40) m/uL Hgb (11.4-16.0) gm/dL Hct (34.0-46.0) % MCHC (31.0-37.0) g/dL RDW (11.5-15.5) % Neutrophils # (1.3-7.7) k/uL ABG pCO2 (35-45) mmHg ABG pO2 (83-108) mmHg ABG HCO3 (21-25) mmol/L ABG Total CO2 (19-24) mmol/L Chloride (98-107) mmol/L BUN (7-17) mg/dL Creatinine (0.52-1.04) mg/dL Glucose (74-99) mg/dL POC Glucose (mg/dL) 138 H 174 H (75-99) mg/dL Microbiology - Last 24 Hours (Table) 11/07/21 11:35 Blood Culture - Preliminary Blood No Growth after 24 hours 11/07/21 11:53 Urine Culture - Final Urine,Catheterized 11/07/21 10:20 Blood Culture - Preliminary Blood No Growth after 24 hours 11/07/21 11:53 Catheter Tip Culture - Preliminary Catheter Tip 11/07/21 11:41 Gram Stain - Preliminary Sputum Sputum Culture - Preliminary Diabetes panel 11/08/21 Range/Units 06:14 Sodium 139 (137-145) mmol/L Potassium 3.6 (3.5-5.1) mmol/L Chloride 110 H (98-107) mmol/L Carbon Dioxide 27 (22-30) mmol/L BUN 18 H (7-17) mg/dL Creatinine 0.25 L (0.52-1.04) mg/dL Glucose 115 H (74-99) mg/dL Calcium 8.6 (8.4-10.2) mg/dL Calcium panel 11/08/21 Range/Units 06:14 Calcium 8.6 (8.4-10.2) mg/dL Pituitary panel 11/08/21 Range/Units 06:14 Sodium 139 (137-145) mmol/L Potassium 3.6 (3.5-5.1) mmol/L Chloride 110 H (98-107) mmol/L Carbon Dioxide 27 (22-30) mmol/L BUN 18 H (7-17) mg/dL Creatinine 0.25 L (0.52-1.04) mg/dL Glucose 115 H (74-99) mg/dL Calcium 8.6 (8.4-10.2) mg/dL Adrenal panel 11/08/21 Range/Units 06:14 Sodium 139 (137-145) mmol/L Potassium 3.6 (3.5-5.1) mmol/L Chloride 110 H (98-107) mmol/L Carbon Dioxide 27 (22-30) mmol/L BUN 18 H (7-17) mg/dL Creatinine 0.25 L (0.52-1.04) mg/dL Glucose 115 H (74-99) mg/dL Calcium 8.6 (8.4-10.2) mg/dL Assessment and Plan Plan: I have personally seen and examined the patient, performed the documentation and the assessment and plan as written. Number of minutes spent on the consult: 30
--- NOTE | 2021-11-08 11:34 | CT ---
EXAMINATION TYPE: CT brain wo con DATE OF EXAM: 11/08/2021 COMPARISON: CT dated 11/04/2021 HISTORY: Altered mental status. CT DLP: 1094.4 mGycm Automated exposure control for dose reduction was used. TECHNIQUE: Multiplanar CT scan of the brain without IV contrast administration. FINDINGS: No acute intracranial hemorrhage or gross acute cortical infarct. No midline shift or herniation. Unr emarkable basal cisterns, sella and CP angles. No gross space-occupying lesion, vasogenic edema or ma ss effect. Unremarkable orbits. Persistent opacification of the mastoid air cells and middle ear cavity suggesti ve of persistent otomastoiditis. Mucosal thickening right sphenoid sinus. Unremarkable calvarial bone s. IMPRESSION: No acute intracranial hemorrhage or gross acute cortical infarct. A subtle acute or hyperacute infarc t can't be excluded by this CT scan. Persistent changes suggestive of bilateral otomastoiditis, pleas e correlate clinically.
[2021-11-08 11:42] LABS: Glucose,Whole Blood 174 mg/dL (75-99)
--- NOTE | 2021-11-08 11:49 | P.PN ---
Subjective Progress Note Date: 11/08/21 Principal diagnosis: Acute hypoxic respiratory failure secondary to COVID-19 pneumonia Reevaluated today on 10/31/2021, patient remains in the ICU intubated mechanically ventilated, sedated, off paralysis, however has been difficult to wean down her sedation to assess fully her mental status. Patient will get extremely agitated on a lower dose of fentanyl or propofol, she desaturates, she becomes very short of breath, and asynchronous with the ventilator. Multiple attempts have been done in the last few days, and they have been unsuccessful nonetheless the patient is now is off paralytics. Yesterday I changed the patient from pressure control to volume control, she is on assist control rate of 26 tidal volume 350 FiO2 of 55% PEEP is 14. ABG earlier on 65% showed a pO2 of 122 pCO2 63 pH of 7.41. Electrolytes are normal except for low potassium of 2.8, being corrected accordingly. Renal profile is normal sodium is normal that is scattered 7.8 hemoglobin is 9.3. Patient remains on fentanyl 2 mcg/kg/m, propofol at 75 mcg/kg/m she is receiving vital Hb at 10 mL per hour. Chest x- ray today showed improvement in her right-sided pneumothorax, nonetheless on physical examination she continues to have some air leak in the newly placed chest tube, and hardly any leak in the old chest tube. The pneumothorax seems to be much smaller today compared to the last few days. As I was finishing my balance in the ICU, patient developed an episode of atrial fibrillation with RVR, and I recommended Cardizem bolus, Cardizem drip, and cardiology was consulted. Reevaluated today on 11/08/2021, patient remains in the ICU, intubated and mechanically ventilated. She is on assist control rate of 26, tidal volume is 400, FiO2 50%, PEEP of 14. Patient is off sedation, she is only on Seroquel 50 mg twice a day, she is off all the drips including propofol, fentanyl, and Nimbex. Her IV fluids at 50 mL per hour. Patient is awake, follows simple instructions however she seems to be completely paralyzed on the left side. Hence I'm recommending today a neurology evaluation, and a CT of the brain without contrast. Her labs today were all reviewed, ABG showed a pO2 of 75 pCO2 47 pH of 7.43, WBC count is 14.3 hemoglobin is 9.2. Lites are normal renal profile is normal. Patient remains on enteral feeding, and she remains on Eliquis because of her history of DVT and pulmonary embolism. Patient is also on amlodipine 10 mg daily, she remains remains on the COVID-19 cocktail. On Seroquel at 50 mg by mouth twice a day, and prednisone at 60 mg daily however I will cut down to 40 mg daily. Objective - Vital Signs Vital signs: Vital Signs Temp 98.0 F 11/08/21 08:00 Pulse 89 11/08/21 11:00 Resp 36 H 11/08/21 11:00 BP 121/78 11/08/21 11:00 Pulse Ox 88 L 11/08/21 11:00 Intake & Output 11/07/21 11/08/21 11/08/21 18:59 06:59 18:59 Intake Total 1155 1338 414 Output Total 1533 985 460 Balance -378 353 -46 Weight 92 kg Intake: IV 559 650 200 Sodium Chloride 0.9% 1, 550 650 200 000 ml @ 50 mls/hr IV . Q20H [facility] Rx#:[id number] pressure bag 9 Tube Feeding 506 598 184 Other 90 90 30 Output: Chest Tube Drainage 18 35 Chest Tube Right 10 30 Chest Tube Right Pleural 8 5 Urine 1515 950 460 Other: Voiding Method Indwelling Catheter Indwelling Catheter # Bowel Movements 1 ABP, PAP, CO, CI - Last Documented Arterial Blood Pressure 120/111 - Exam Physical Exam: Revealed a 61-year-old female in no distress. Awake, follows simple instructions, however she seems to be paralyzed on the left side cannot move her left upper extremity and her left lower extremity. Head: Atraumatic, normocephalic PEG tube is intact. HEENT:[Neck is supple.] [No neck masses.] [No thyromegaly.] [No JVD.] Chest: [Symmetrical chest expansion crackles and rhonchi at the bases. Right- sided chest tubes are noted. Cardiac Exam: [Distant S1 and S2, no S3 gallop. No murmur. Abdomen: [Soft, nontender, no megaly, no rebound, no guarding, normal bowel sounds.] Extremities: [No clubbing, 2+ bipedal edema, no cyanosis.] Good pulses bilaterally. Neurological Exam: Opens eyes, follows instructions, but cannot move the left side. Patient is generally weak throughout. Psychiatric: Appropriate mood affect and appropriate mental status. However the patient is generally weak Skin: No rashes. - Labs CBC & Chem 7: 11/08/21 06:14 11/08/21 06:14 Labs: Abnormal Lab Results - Last 24 Hours (Table) 11/07/21 11/07/21 11/08/21 Range/Units 11:46 18:28 00:38 WBC (3.8-10.6) k/uL RBC (3.80-5.40) m/uL Hgb (11.4-16.0) gm/dL Hct (34.0-46.0) % MCHC (31.0-37.0) g/dL RDW (11.5-15.5) % Neutrophils # (1.3-7.7) k/uL ABG pCO2 (35-45) mmHg ABG pO2 (83-108) mmHg ABG HCO3 (21-25) mmol/L ABG Total CO2 (19-24) mmol/L Chloride (98-107) mmol/L BUN (7-17) mg/dL Creatinine (0.52-1.04) mg/dL Glucose (74-99) mg/dL POC Glucose (mg/dL) 202 H 213 H 150 H (75-99) mg/dL 11/08/21 11/08/21 11/08/21 Range/Units 05:46 06:14 06:14 WBC 14.3 H (3.8-10.6) k/uL RBC 3.17 L (3.80-5.40) m/uL Hgb 9.2 L (11.4-16.0) gm/dL Hct 29.9 L (34.0-46.0) % MCHC 30.8 L (31.0-37.0) g/dL RDW 16.2 H (11.5-15.5) % Neutrophils # 10.8 H (1.3-7.7) k/uL ABG pCO2 47 H (35-45) mmHg ABG pO2 75 L (83-108) mmHg ABG HCO3 31 H (21-25) mmol/L ABG Total CO2 33 H (19-24) mmol/L Chloride 110 H (98-107) mmol/L BUN 18 H (7-17) mg/dL Creatinine 0.25 L (0.52-1.04) mg/dL Glucose 115 H (74-99) mg/dL POC Glucose (mg/dL) (75-99) mg/dL 11/08/21 11/08/21 Range/Units 06:17 09:50 WBC (3.8-10.6) k/uL RBC (3.80-5.40) m/uL Hgb (11.4-16.0) gm/dL Hct (34.0-46.0) % MCHC (31.0-37.0) g/dL RDW (11.5-15.5) % Neutrophils # (1.3-7.7) k/uL ABG pCO2 (35-45) mmHg ABG pO2 (83-108) mmHg ABG HCO3 (21-25) mmol/L ABG Total CO2 (19-24) mmol/L Chloride (98-107) mmol/L BUN (7-17) mg/dL Creatinine (0.52-1.04) mg/dL Glucose (74-99) mg/dL POC Glucose (mg/dL) 113 H 138 H (75-99) mg/dL Microbiology - Last 24 Hours (Table) 11/07/21 11:53 Catheter Tip Culture - Preliminary Catheter Tip 11/07/21 11:41 Gram Stain - Preliminary Sputum Sputum Culture - Preliminary 11/07/21 11:53 Urine Culture - Preliminary Urine,Catheterized Assessment and Plan Assessment: Impression: Acute hypoxic respiratory failure secondary to COVID-19 pneumonia and complicated with ARDS. Patient was intubated on 09/25/2021. Status post tracheostomy and PEG tube placement. 10/14/2021. Acute deep vein thrombosis, on Eliquis. History of hypercoagulable state, factor V Leyden mutation. Bilateral pneumothoraces requiring bilateral chest tube placement. However since then the left-sided chest tube was removed, right-sided chest tube had to be placed again by Dr. Harris,I placed a right sided thoravent on 10/25/21, status post chest tube placement again on 10/29/2021, and the removal of thoravent on 10/29. Acute COVID-19 pneumonia Subcutaneous emphysema, resolved. Prior history of DVT History of fibromyalgia Degenerative joint disease Mildly elevated liver enzymes secondary to cardona virus infection. Nonsustained ventricular tachycardia, resolved Paroxysmal atrial fibrillation. Being followed by cardiology. Persistent right-sided pneumothorax in spite of [address], hence I'm recommending a thoracic surgery consultation. Left sided weakness and paralysis, hence a neurological consultation was initiated, and CT of the brain was ordered. Critical illness polyneuropathy. Secondary to prolonged course of COVID-19 infection and a story failure. Recommendation: Continue ventilatory support. No changes made today and her ventilator settings. Continue Seroquel. Continue volume control mode of mechanical ventilation.. Continue tracheostomy care. Continue Eliquis Continue Seroquel. Thoracic surgery consultation for her persistent right-sided pneumothorax. Continue nutritional support/enteral feeding Continue GI and DVT prophylaxis, patient is on Protonix Continue COVID-[address] of the brain to be done today. Neurology consultation. Patient is critically ill. Critical care time is over 30 minutes. Time with Patient: Greater than 30
--- NOTE | 2021-11-08 11:51 | XR ---
EXAMINATION TYPE: XR chest 1V portable DATE OF EXAM: 11/08/2021 COMPARISON: Same date earlier exam INDICATION: Pneumothorax TECHNIQUE: Single frontal view of the chest is obtained. FINDINGS: The heart size is normal. The pulmonary vasculature is somewhat prominent. Diffuse opacity is present within the bilateral lung patterson. Findings are similar to comparison. There is a right side pneumothorax. The size of the pneumothorax has diminished slightly over the int erval. 2 right-sided chest tubes remain in position. Right-sided PICC line remains stable. Tracheosto my tube is in the midline IMPRESSION: 1. Improving right sided pneumothorax. 2. Diffuse increased lung opacities with prominent pulmonary vascular markings. Correlate for pulmona ry edema
[2021-11-08] MEDS ORDERED: LIDOCAINE 2% (PF) 20 MG/ML 5 ML VIAL ONE (12:23)
[2021-11-08] MEDS ORDERED: fentaNYL (PF) 50 MCG/ML 2 ML AMP ONE (12:29)
[2021-11-08] MEDS ORDERED: fentaNYL (PF) 50 MCG/ML 2 ML AMP IVP PRN (12:29)
--- NOTE | 2021-11-08 12:47 | P.CNNES ---
History of Present Illness Consult date: 11/08/21 Requesting physician: Jose Manuel Ramirez Reason for Consult: Left-sided weakness History of Present Illness: Patient is a 61-year-old female who came to the hospital on 09/23/2021 with Covid-19 pneumonia. Patient was transferred to ICU on 09/25/2021. She was intubated. She had undergone trach and PEG placement in end of September 2021. She has developed pneumothorax. She has been significantly sick for prolonged period of time. Patient Had Undergone thoravent Placement on 10/25/2021. Patient Has Been Having Low-Grade Fever. Patient Also on Eliquis for her history of acute DVT in the left leg. Her left leg is severely swollen. Patient has been somnolent. This morning patient was noted to have less amount of movement of the left arm and left leg, which prompted this neurology consultation. Computed tomography scan of the head was done, which showed no acute process. I personally reviewed CT of head and there is no evidence of an acute stroke. No hemorrhage. Review of Systems Patient has tracheostomy. ROS unobtainable: due to endotracheal tube, due to mental status Past Medical History Past Medical History: Deep Vein Thrombosis (DVT), Fibromyalgia, Pneumonia Additional Past Medical History / Comment(s): Clotting disorder (factor V leiden on coumadin). arthritis. plate in neck. developed while in hospital afib, DVT left lower extremity History of Any Multi-Drug Resistant Organisms: None Reported Past Surgical History: Cholecystectomy, Hysterectomy Additional Past Surgical History / Comment(s): carpal tunnel surgery. plate neck. tracheostomy and peg tube placement 10/14/21 Past Psychological History: No Psychological Hx Reported Smoking Status: Never smoker Past Alcohol Use History: None Reported Past Drug Use History: None Reported - Past Family History Father History Unknown: Yes Additional Family Medical History / Comment(s): Pt on ventilator, unable to provide hx Mother History Unknown: Yes Additional Family Medical History / Comment(s): Pt on ventilator, unable to provide hx Medications and Allergies Home Medications Medication Instructions Recorded Confirmed Type Ergocalciferol [Vitamin D2] 50,000 unit PO MORRIS 07/04/20 09/23/21 History Meloxicam [Mobic] 7.5 mg PO DAILY 07/04/20 09/23/21 History Warfarin Sodium [Jantoven] 6 mg PO DAILY 07/04/20 09/23/21 History metHOTREXate sodium [Methotrexate] 20 mg PO FR 07/04/20 09/23/21 History Allergies Allergy/AdvReac Type Severity Reaction Status Date / Time cefaclor [From Ceclor] Allergy Unknown Verified 09/23/21 19:51 cephalexin [From Keflex] Allergy Unknown Verified 09/23/21 19:51 cyclobenzaprine Allergy Unknown Verified 09/23/21 19:51 [From Flexeril] Penicillins Allergy Unknown Verified 09/23/21 19:51 Sulfa (Sulfonamide Allergy Unknown Verified 09/23/21 19:51 Antibiotics) acetaminophen [From Tylenol] AdvReac Rash/Hives Verified 09/23/21 19:51 codeine AdvReac Rash/Hives Verified 09/23/21 19:51 enoxaparin [From Lovenox] AdvReac Unknown Verified 10/07/21 17:06 erythromycin base AdvReac Rash/Hives Verified 09/23/21 19:51 Physical Examination - Vital Signs Vital Signs: Vital Signs Temp Pulse Resp BP Pulse Ox 11/08/21 12:00 98.4 F 92 32 H 131/67 91 L 11/08/21 11:00 89 36 H 121/78 88 L 11/08/21 10:00 97 37 H 96/50 91 L 11/08/21 09:00 103 H 33 H 121/65 91 L 11/08/21 08:00 98.0 F 100 34 H 130/61 92 L 11/08/21 07:00 96 31 H 129/68 92 L 11/08/21 06:00 90 19 116/91 91 L 11/08/21 05:00 91 28 H 136/67 92 L 11/08/21 04:00 98.1 F 99 33 H 123/55 92 L 11/08/21 03:00 89 27 H 117/56 93 L 11/08/21 02:00 98 39 H 148/77 93 L 11/08/21 01:00 104 H 37 H 144/78 92 L 11/08/21 00:00 98.6 F 102 H 33 H 130/69 93 L 11/07/21 23:43 98 34 H 94 L 11/07/21 23:00 90 30 H 123/67 94 L 11/07/21 22:00 98.2 F 86 31 H 103/54 94 L 11/07/21 21:00 87 30 H 125/65 93 L 11/07/21 20:00 100.2 F H 112 H 38 H 153/72 91 L 11/07/21 19:00 108 H 33 H 134/62 93 L 11/07/21 18:00 105 H 36 H 132/71 94 L 11/07/21 17:00 116 H 50 H 135/75 95 11/07/21 16:00 99.9 F H 93 27 H 152/81 94 L 11/07/21 15:00 96 31 H 133/76 92 L 11/07/21 14:00 97 26 H 134/67 93 L 11/07/21 13:00 94 27 H 99/56 93 L Intake and Output 11/07/21 11/08/21 11/08/21 22:59 06:59 14:59 Intake Total 828 924 510 Output Total 745 840 490 Balance 83 84 20 Intake: IV 400 450 250 Sodium Chloride 0.9% 1, 400 450 250 000 ml @ 50 mls/hr IV . Q20H REPLACED BY [facility] Rx#:[id number] Tube Feeding 368 414 230 Other 60 60 30 Output: Chest Tube Drainage 5 30 Chest Tube Right 0 30 Chest Tube Right Pleural 5 Urine 740 810 490 Other: Voiding Method Indwelling Catheter Indwelling Catheter Indwelling Catheter # Bowel Movements 1 Weight 92 kg Patient is a late middle aged female, appears generalized weak, encephalopathic, slightly somnolent. Patient is somnolent, lethargic, but does wake up. Speech and language functions cannot be assessed because of tracheostomy. Patient does tell "ouch" on checking reflexes and it was hurting her. Attention, concentration and fund of knowledge is limited. On cranial examination, pupils are round and reacting to light, visual patterson could not be tested because of mental status, extraocular muscles are intact with no nystagmus. Face is symmetric, tongue protrudes to the midline. Palatal elevation and sensation cannot be assessed. Her facial sensation normal. Shoulder shrug week. On muscle strength testing, patient is extremely weak in the arms and legs distally and proximally. Tone is decreased. Patient only able to minimally wiggle her index and middle finger of the right hand, but nothing on the left. When the arms are held up passively, both of them fall down with equal force with no resistance, or attempt to hold. In the lower limbs patient only able to wiggle her right foot, but not the left. Deep tendon reflexes are (right/left) biceps 1+/0, brachioradialis 0/0, knee 1+/1+, knees 0/0, ankles 0/0, plantar is flat bilaterally. Sensory to touch is equal. Cerebellar function cannot be performed. Tone is decreased. Gait cannot be checked. On general examination, carotid bruit or murmur could not be heard clearly. Patient is on ventilator through tracheostomy. Patient has severe peripheral edema on the left. Her left leg is very swollen. Mild peripheral edema in the right. Abdomen is soft. Peripheral pulses could not be felt clearly. Results - Laboratory Findings CBC and BMP: 11/10/21 06:14 11/10/21 06:14 Abnormal Lab Findings: Abnormal Labs 09/23/21 09/23/21 09/23/21 17:53 17:53 18:45 WBC 12.1 H RBC Hgb Hct MCHC RDW Neutrophils # 9.8 H Neutrophils # (Manual) Lymphocytes # Monocytes # Metamyelocytes # (Man) Myelocytes # (Manual) PT 24.2 H INR 2.5 H APTT D-Dimer 32.13 H ABG pH ABG pCO2 ABG pO2 ABG HCO3 ABG Total CO2 ABG O2 Saturation Sodium Potassium 3.1 L Chloride Carbon Dioxide 20 L BUN 47 H Creatinine 1.50 H Glucose 122 H POC Glucose (mg/dL) Calcium 8.2 L Magnesium 2.6 H AST 95 H ALT 60 H Lactate Dehydrogenase LD Isoenzymes LD 2 LD 5 C-Reactive Protein Total Protein Albumin 2.9 L Procalcitonin SARS-CoV-2 (PCR) Crossmatch 09/23/21 09/23/21 09/24/21 18:45 Unknown 11:16 WBC RBC Hgb Hct MCHC RDW Neutrophils # Neutrophils # (Manual) Lymphocytes # Monocytes # Metamyelocytes # (Man) Myelocytes # (Manual) PT 26.7 H INR 2.8 H APTT D-Dimer ABG pH ABG pCO2 ABG pO2 ABG HCO3 ABG Total CO2 ABG O2 Saturation Sodium Potassium Chloride Carbon Dioxide BUN Creatinine Glucose POC Glucose (mg/dL) Calcium Magnesium AST ALT Lactate Dehydrogenase LD Isoenzymes LD 2 LD 5 C-Reactive Protein Total Protein Albumin Procalcitonin 0.52 H SARS-CoV-2 (PCR) Detected A Crossmatch 09/25/21 09/25/21 09/25/21 09:01 09:01 09:01 WBC 17.1 H RBC Hgb Hct MCHC RDW Neutrophils # 14.6 H Neutrophils # (Manual) Lymphocytes # Monocytes # Metamyelocytes # (Man) Myelocytes # (Manual) PT 33.3 H INR 3.5 H APTT D-Dimer ABG pH ABG pCO2 ABG pO2 ABG HCO3 ABG Total CO2 ABG O2 Saturation Sodium Potassium Chloride 113 H Carbon Dioxide 21 L BUN 35 H Creatinine Glucose 103 H POC Glucose (mg/dL) Calcium Magnesium AST ALT Lactate Dehydrogenase LD Isoenzymes LD 2 LD 5 C-Reactive Protein Total Protein Albumin Procalcitonin SARS-CoV-2 (PCR) Crossmatch 09/25/21 09/25/21 09/26/21 11:26 17:18 03:00 WBC RBC Hgb Hct MCHC RDW Neutrophils # Neutrophils # (Manual) Lymphocytes # Monocytes # Metamyelocytes # (Man) Myelocytes # (Manual) PT 34.5 H INR 3.6 H APTT D-Dimer ABG pH ABG pCO2 32 L ABG pO2 49 L* 65 L ABG HCO3 20 L ABG Total CO2 ABG O2 Saturation 84.7 L 91.5 L Sodium Potassium Chloride Carbon Dioxide BUN Creatinine Glucose POC Glucose (mg/dL) Calcium Magnesium AST ALT Lactate Dehydrogenase LD Isoenzymes LD 2 LD 5 C-Reactive Protein Total Protein Albumin Procalcitonin SARS-CoV-2 (PCR) Crossmatch 09/26/21 09/26/21 09/26/21 03:00 03:00 05:59 WBC 14.4 H RBC 3.74 L Hgb 10.5 L Hct 32.4 L MCHC RDW Neutrophils # 12.7 H Neutrophils # (Manual) Lymphocytes # 0.8 L Monocytes # Metamyelocytes # (Man) Myelocytes # (Manual) PT INR APTT D-Dimer ABG pH 7.27 L ABG pCO2 46 H ABG pO2 82 L ABG HCO3 ABG Total CO2 ABG O2 Saturation Sodium Potassium Chloride 118 H Carbon Dioxide BUN 27 H Creatinine Glucose 110 H POC Glucose (mg/dL) Calcium 7.8 L Magnesium AST ALT Lactate Dehydrogenase 930 H LD Isoenzymes LD 2 LD 5 C-Reactive Protein 16.2 H Total Protein Albumin Procalcitonin SARS-CoV-2 (PCR) Crossmatch 09/26/21 09/27/21 09/27/21 15:44 03:30 03:30 WBC 14.4 H RBC Hgb 10.9 L Hct 33.4 L MCHC RDW Neutrophils # 12.0 H Neutrophils # (Manual) Lymphocytes # Monocytes # Metamyelocytes # (Man) Myelocytes # (Manual) PT 21.2 H INR 2.2 H APTT D-Dimer 9.46 H ABG pH ABG pCO2 ABG pO2 ABG HCO3 ABG Total CO2 ABG O2 Saturation Sodium Potassium Chloride Carbon Dioxide BUN Creatinine Glucose POC Glucose (mg/dL) Calcium Magnesium AST ALT Lactate Dehydrogenase LD Isoenzymes LD 2 LD 5 C-Reactive Protein Total Protein Albumin Procalcitonin SARS-CoV-2 (PCR) Crossmatch 09/27/21 09/27/21 09/28/21 03:30 06:00 04:15 WBC 19.4 H RBC Hgb 11.0 L Hct MCHC 30.6 L RDW Neutrophils # 16.8 H Neutrophils # (Manual) Lymphocytes # Monocytes # Metamyelocytes # (Man) Myelocytes # (Manual) PT INR APTT D-Dimer ABG pH 7.27 L ABG pCO2 47 H ABG pO2 72 L ABG HCO3 ABG Total CO2 ABG O2 Saturation 93.9 L Sodium Potassium Chloride 118 H Carbon Dioxide 20 L BUN 23 H Creatinine Glucose POC Glucose (mg/dL) Calcium 8.1 L Magnesium AST ALT Lactate Dehydrogenase LD Isoenzymes LD 2 LD 5 C-Reactive Protein Total Protein Albumin Procalcitonin SARS-CoV-2 (PCR) Crossmatch 09/28/21 09/28/21 09/29/21 04:15 04:55 04:40 WBC RBC Hgb Hct MCHC RDW Neutrophils # Neutrophils # (Manual) Lymphocytes # Monocytes # Metamyelocytes # (Man) Myelocytes # (Manual) PT INR APTT D-Dimer ABG pH 7.24 L 7.33 L ABG pCO2 54 H 52 H ABG pO2 63 L 56 L* ABG HCO3 28 H ABG Total CO2 25 H 29 H ABG O2 Saturation 91.8 L 89.8 L Sodium Potassium Chloride 119 H Carbon Dioxide 21 L BUN 23 H Creatinine Glucose 107 H POC Glucose (mg/dL) Calcium 7.9 L Magnesium AST ALT Lactate Dehydrogenase LD Isoenzymes LD 2 LD 5 C-Reactive Protein Total Protein Albumin Procalcitonin SARS-CoV-2 (PCR) Crossmatch 09/29/21 09/29/21 09/29/21 04:48 04:48 04:48 WBC 16.1 H RBC Hgb 10.5 L Hct 33.7 L MCHC RDW Neutrophils # 13.5 H Neutrophils # (Manual) Lymphocytes # Monocytes # Metamyelocytes # (Man) Myelocytes # (Manual) PT INR APTT D-Dimer 2.19 H ABG pH ABG pCO2 ABG pO2 ABG HCO3 ABG Total CO2 ABG O2 Saturation Sodium Potassium Chloride 114 H Carbon Dioxide BUN 27 H Creatinine Glucose 115 H POC Glucose (mg/dL) Calcium 7.9 L Magnesium AST ALT Lactate Dehydrogenase 650 H LD Isoenzymes LD 2 LD 5 C-Reactive Protein 5.8 H Total Protein Albumin Procalcitonin SARS-CoV-2 (PCR) Crossmatch 09/29/21 09/30/21 09/30/21 04:48 04:00 04:00 WBC 15.8 H RBC Hgb 10.6 L Hct MCHC 30.8 L RDW Neutrophils # 12.8 H Neutrophils # (Manual) Lymphocytes # Monocytes # 1.1 H Metamyelocytes # (Man) Myelocytes # (Manual) PT INR APTT D-Dimer ABG pH ABG pCO2 ABG pO2 ABG HCO3 ABG Total CO2 ABG O2 Saturation Sodium Potassium Chloride 111 H Carbon Dioxide 31 H BUN 35 H Creatinine Glucose 126 H POC Glucose (mg/dL) Calcium 8.0 L Magnesium AST ALT Lactate Dehydrogenase LD Isoenzymes LD 2 LD 5 C-Reactive Protein 5.3 H Total Protein Albumin Procalcitonin 0.18 H SARS-CoV-2 (PCR) Crossmatch 09/30/21 09/30/21 10/01/21 04:00 05:40 05:10 WBC RBC Hgb Hct MCHC RDW Neutrophils # Neutrophils # (Manual) Lymphocytes # Monocytes # Metamyelocytes # (Man) Myelocytes # (Manual) PT INR APTT D-Dimer 2.30 H ABG pH 7.27 L 7.32 L ABG pCO2 66 H 67 H ABG pO2 75 L 64 L ABG HCO3 30 H 34 H ABG Total CO2 32 H 36 H ABG O2 Saturation 92.3 L Sodium Potassium Chloride Carbon Dioxide BUN Creatinine Glucose POC Glucose (mg/dL) Calcium Magnesium AST ALT Lactate Dehydrogenase LD Isoenzymes LD 2 LD 5 C-Reactive Protein Total Protein Albumin Procalcitonin SARS-CoV-2 (PCR) Crossmatch 10/01/21 10/01/21 10/01/21 08:13 08:13 08:13 WBC 15.2 H RBC Hgb 10.6 L Hct MCHC 30.2 L RDW Neutrophils # 12.1 H Neutrophils # (Manual) Lymphocytes # Monocytes # Metamyelocytes # (Man) Myelocytes # (Manual) PT INR APTT D-Dimer 2.58 H ABG pH ABG pCO2 ABG pO2 ABG HCO3 ABG Total CO2 ABG O2 Saturation Sodium Potassium Chloride 109 H Carbon Dioxide 35 H BUN 43 H Creatinine Glucose 138 H POC Glucose (mg/dL) Calcium Magnesium AST ALT Lactate Dehydrogenase LD Isoenzymes LD 2 LD 5 C-Reactive Protein 4.2 H Total Protein Albumin Procalcitonin SARS-CoV-2 (PCR) Crossmatch 10/01/21 10/01/21 10/02/21 11:25 18:44 03:45 WBC 13.0 H RBC 3.57 L Hgb 9.8 L Hct 32.1 L MCHC 30.6 L RDW Neutrophils # 10.6 H Neutrophils # (Manual) Lymphocytes # Monocytes # Metamyelocytes # (Man) Myelocytes # (Manual) PT INR APTT D-Dimer ABG pH ABG pCO2 ABG pO2 ABG HCO3 ABG Total CO2 ABG O2 Saturation Sodium Potassium Chloride Carbon Dioxide BUN Creatinine Glucose POC Glucose (mg/dL) 133 H 167 H Calcium Magnesium AST ALT Lactate Dehydrogenase LD Isoenzymes LD 2 LD 5 C-Reactive Protein Total Protein Albumin Procalcitonin SARS-CoV-2 (PCR) Crossmatch 10/02/21 10/02/21 10/02/21 03:45 05:26 09:56 WBC RBC Hgb Hct MCHC RDW Neutrophils # Neutrophils # (Manual) Lymphocytes # Monocytes # Metamyelocytes # (Man) Myelocytes # (Manual) PT INR APTT D-Dimer ABG pH 7.27 L 7.31 L ABG pCO2 74 H* 69 H ABG pO2 63 L ABG HCO3 34 H 35 H ABG Total CO2 36 H 37 H ABG O2 Saturation 91.4 L Sodium Potassium Chloride Carbon Dioxide 33 H BUN 44 H Creatinine Glucose 137 H POC Glucose (mg/dL) Calcium Magnesium AST ALT Lactate Dehydrogenase LD Isoenzymes LD 2 LD 5 C-Reactive Protein Total Protein Albumin Procalcitonin SARS-CoV-2 (PCR) Crossmatch 10/02/21 10/03/21 10/03/21 11:46 04:10 04:10 WBC RBC 3.51 L Hgb 9.5 L Hct 31.7 L MCHC 30.0 L RDW Neutrophils # 8.4 H Neutrophils # (Manual) Lymphocytes # 0.9 L Monocytes # Metamyelocytes # (Man) Myelocytes # (Manual) PT INR APTT D-Dimer ABG pH ABG pCO2 ABG pO2 ABG HCO3 ABG Total CO2 ABG O2 Saturation Sodium Potassium Chloride Carbon Dioxide 33 H BUN 43 H Creatinine Glucose 162 H POC Glucose (mg/dL) 123 H Calcium Magnesium AST ALT Lactate Dehydrogenase LD Isoenzymes LD 2 LD 5 C-Reactive Protein Total Protein Albumin Procalcitonin SARS-CoV-2 (PCR) Crossmatch 10/03/21 10/03/21 10/03/21 06:01 12:08 12:51 WBC RBC Hgb Hct MCHC RDW Neutrophils # Neutrophils # (Manual) Lymphocytes # Monocytes # Metamyelocytes # (Man) Myelocytes # (Manual) PT INR APTT D-Dimer ABG pH 7.34 L 7.28 L ABG pCO2 64 H 74 H* ABG pO2 61 L 60 L ABG HCO3 34 H 35 H ABG Total CO2 36 H 37 H ABG O2 Saturation 90.9 L 89.2 L Sodium Potassium Chloride Carbon Dioxide BUN Creatinine Glucose POC Glucose (mg/dL) 195 H Calcium Magnesium AST ALT Lactate Dehydrogenase LD Isoenzymes LD 2 LD 5 C-Reactive Protein Total Protein Albumin Procalcitonin SARS-CoV-2 (PCR) Crossmatch 10/03/21 10/03/21 10/03/21 14:16 17:43 23:50 WBC RBC Hgb Hct MCHC RDW Neutrophils # Neutrophils # (Manual) Lymphocytes # Monocytes # Metamyelocytes # (Man) Myelocytes # (Manual) PT INR APTT D-Dimer ABG pH ABG pCO2 ABG pO2 ABG HCO3 ABG Total CO2 ABG O2 Saturation Sodium Potassium Chloride Carbon Dioxide BUN Creatinine Glucose POC Glucose (mg/dL) 216 H 240 H 168 H Calcium Magnesium AST ALT Lactate Dehydrogenase LD Isoenzymes LD 2 LD 5 C-Reactive Protein Total Protein Albumin Procalcitonin SARS-CoV-2 (PCR) Crossmatch 10/04/21 10/04/21 10/04/21 01:30 04:40 04:40 WBC 10.8 H RBC 3.30 L Hgb 9.2 L Hct 29.5 L MCHC RDW Neutrophils # 8.8 H Neutrophils # (Manual) Lymphocytes # Monocytes # Metamyelocytes # (Man) Myelocytes # (Manual) PT INR APTT D-Dimer ABG pH ABG pCO2 ABG pO2 ABG HCO3 ABG Total CO2 ABG O2 Saturation Sodium Potassium Chloride Carbon Dioxide 35 H 35 H BUN 35 H Creatinine Glucose 133 H POC Glucose (mg/dL) Calcium Magnesium AST ALT 48 H Lactate Dehydrogenase LD Isoenzymes LD 2 LD 5 C-Reactive Protein Total Protein 4.7 L Albumin 2.1 L Procalcitonin SARS-CoV-2 (PCR) Crossmatch 10/04/21 10/04/21 10/04/21 05:30 11:25 17:33 WBC RBC Hgb Hct MCHC RDW Neutrophils # Neutrophils # (Manual) Lymphocytes # Monocytes # Metamyelocytes # (Man) Myelocytes # (Manual) PT INR APTT D-Dimer ABG pH ABG pCO2 59 H ABG pO2 69 L ABG HCO3 35 H ABG Total CO2 37 H ABG O2 Saturation Sodium Potassium Chloride Carbon Dioxide BUN Creatinine Glucose POC Glucose (mg/dL) 134 H 197 H Calcium Magnesium AST ALT Lactate Dehydrogenase LD Isoenzymes LD 2 LD 5 C-Reactive Protein Total Protein Albumin Procalcitonin SARS-CoV-2 (PCR) Crossmatch 10/04/21 10/05/21 10/05/21 23:41 04:22 04:22 WBC 18.1 H RBC Hgb 11.2 L Hct MCHC RDW 16.0 H Neutrophils # 15.1 H Neutrophils # (Manual) Lymphocytes # Monocytes # 1.1 H Metamyelocytes # (Man) Myelocytes # (Manual) PT INR APTT D-Dimer ABG pH ABG pCO2 ABG pO2 ABG HCO3 ABG Total CO2 ABG O2 Saturation Sodium Potassium Chloride Carbon Dioxide 35 H BUN 35 H Creatinine Glucose 147 H POC Glucose (mg/dL) 177 H Calcium Magnesium AST ALT Lactate Dehydrogenase LD Isoenzymes LD 2 LD 5 C-Reactive Protein Total Protein Albumin Procalcitonin SARS-CoV-2 (PCR) Crossmatch 10/05/21 10/05/21 10/05/21 04:22 04:22 04:22 WBC RBC Hgb Hct MCHC RDW Neutrophils # Neutrophils # (Manual) Lymphocytes # Monocytes # Metamyelocytes # (Man) Myelocytes # (Manual) PT INR APTT D-Dimer 1.69 H ABG pH ABG pCO2 ABG pO2 ABG HCO3 ABG Total CO2 ABG O2 Saturation Sodium Potassium Chloride Carbon Dioxide BUN Creatinine Glucose POC Glucose (mg/dL) Calcium Magnesium AST ALT Lactate Dehydrogenase LD Isoenzymes LD 2 LD 5 C-Reactive Protein 2.1 H Total Protein Albumin Procalcitonin 0.14 H SARS-CoV-2 (PCR) Crossmatch 10/05/21 10/05/21 10/05/21 04:22 05:22 06:17 WBC RBC Hgb Hct MCHC RDW Neutrophils # Neutrophils # (Manual) Lymphocytes # Monocytes # Metamyelocytes # (Man) Myelocytes # (Manual) PT INR APTT D-Dimer ABG pH ABG pCO2 63 H ABG pO2 58 L* ABG HCO3 38 H ABG Total CO2 40 H ABG O2 Saturation 90.1 L Sodium Potassium Chloride Carbon Dioxide BUN Creatinine Glucose POC Glucose (mg/dL) 135 H Calcium Magnesium AST ALT Lactate Dehydrogenase LD Isoenzymes 263 H LD 2 29 L LD 5 22 H C-Reactive Protein Total Protein Albumin Procalcitonin SARS-CoV-2 (PCR) Crossmatch 10/05/21 10/05/21 10/05/21 11:53 17:29 21:48 WBC RBC Hgb Hct MCHC RDW Neutrophils # Neutrophils # (Manual) Lymphocytes # Monocytes # Metamyelocytes # (Man) Myelocytes # (Manual) PT INR APTT D-Dimer ABG pH ABG pCO2 ABG pO2 47 L* ABG HCO3 ABG Total CO2 25 H ABG O2 Saturation 84.4 L Sodium Potassium Chloride Carbon Dioxide BUN Creatinine Glucose POC Glucose (mg/dL) 152 H 196 H Calcium Magnesium AST ALT Lactate Dehydrogenase LD Isoenzymes LD 2 LD 5 C-Reactive Protein Total Protein Albumin Procalcitonin SARS-CoV-2 (PCR) Crossmatch 10/05/21 10/05/21 10/06/21 23:49 23:51 04:03 WBC 16.1 H RBC Hgb 11.2 L Hct MCHC RDW 16.1 H Neutrophils # Neutrophils # (Manual) 12.30 H Lymphocytes # Monocytes # Metamyelocytes # (Man) 0.16 H Myelocytes # (Manual) PT INR APTT D-Dimer ABG pH ABG pCO2 60 H ABG pO2 69 L ABG HCO3 38 H ABG Total CO2 40 H ABG O2 Saturation 93.4 L Sodium Potassium Chloride Carbon Dioxide BUN Creatinine Glucose POC Glucose (mg/dL) 137 H Calcium Magnesium AST ALT Lactate Dehydrogenase LD Isoenzymes LD 2 LD 5 C-Reactive Protein Total Protein Albumin Procalcitonin SARS-CoV-2 (PCR) Crossmatch 10/06/21 10/06/21 10/06/21 04:03 04:03 05:47 WBC RBC Hgb Hct MCHC RDW Neutrophils # Neutrophils # (Manual) Lymphocytes # Monocytes # Metamyelocytes # (Man) Myelocytes # (Manual) PT INR APTT D-Dimer ABG pH ABG pCO2 58 H ABG pO2 67 L ABG HCO3 39 H ABG Total CO2 41 H ABG O2 Saturation 93.9 L Sodium Potassium Chloride Carbon Dioxide 36 H BUN 30 H Creatinine Glucose 130 H POC Glucose (mg/dL) Calcium Magnesium 2.5 H AST ALT Lactate Dehydrogenase LD Isoenzymes LD 2 LD 5 C-Reactive Protein Total Protein Albumin Procalcitonin SARS-CoV-2 (PCR) Crossmatch 10/06/21 10/06/21 10/07/21 11:40 17:47 00:05 WBC RBC Hgb Hct MCHC RDW Neutrophils # Neutrophils # (Manual) Lymphocytes # Monocytes # Metamyelocytes # (Man) Myelocytes # (Manual) PT INR APTT D-Dimer ABG pH ABG pCO2 ABG pO2 ABG HCO3 ABG Total CO2 ABG O2 Saturation Sodium Potassium Chloride Carbon Dioxide BUN Creatinine Glucose POC Glucose (mg/dL) 149 H 195 H 124 H Calcium Magnesium AST ALT Lactate Dehydrogenase LD Isoenzymes LD 2 LD 5 C-Reactive Protein Total Protein Albumin Procalcitonin SARS-CoV-2 (PCR) Crossmatch 10/07/21 10/07/21 10/07/21 04:25 04:25 05:55 WBC 15.9 H RBC Hgb Hct MCHC RDW 16.8 H Neutrophils # 12.9 H Neutrophils # (Manual) 12.70 H Lymphocytes # Monocytes # Metamyelocytes # (Man) 0.64 H Myelocytes # (Manual) 0.16 H PT INR APTT D-Dimer ABG pH ABG pCO2 57 H ABG pO2 61 L ABG HCO3 36 H ABG Total CO2 38 H ABG O2 Saturation 90.9 L Sodium Potassium Chloride Carbon Dioxide 34 H BUN 35 H Creatinine Glucose 131 H POC Glucose (mg/dL) Calcium Magnesium AST ALT Lactate Dehydrogenase LD Isoenzymes LD 2 LD 5 C-Reactive Protein Total Protein Albumin Procalcitonin SARS-CoV-2 (PCR) Crossmatch 10/07/21 10/07/21 10/08/21 11:50 18:00 00:09 WBC RBC Hgb Hct MCHC RDW Neutrophils # Neutrophils # (Manual) Lymphocytes # Monocytes # Metamyelocytes # (Man) Myelocytes # (Manual) PT INR APTT D-Dimer ABG pH ABG pCO2 ABG pO2 ABG HCO3 ABG Total CO2 ABG O2 Saturation Sodium Potassium Chloride Carbon Dioxide BUN Creatinine Glucose POC Glucose (mg/dL) 196 H 134 H 149 H Calcium Magnesium AST ALT Lactate Dehydrogenase LD Isoenzymes LD 2 LD 5 C-Reactive Protein Total Protein Albumin Procalcitonin SARS-CoV-2 (PCR) Crossmatch 10/08/21 10/08/21 10/08/21 04:50 04:52 04:52 WBC 13.0 H RBC Hgb 10.4 L Hct MCHC 29.8 L RDW 17.2 H Neutrophils # 10.6 H Neutrophils # (Manual) Lymphocytes # Monocytes # Metamyelocytes # (Man) Myelocytes # (Manual) PT INR APTT D-Dimer ABG pH ABG pCO2 57 H ABG pO2 61 L ABG HCO3 38 H ABG Total CO2 40 H ABG O2 Saturation 91.4 L Sodium Potassium Chloride Carbon Dioxide 36 H BUN 29 H Creatinine Glucose 111 H POC Glucose (mg/dL) Calcium Magnesium AST ALT Lactate Dehydrogenase LD Isoenzymes LD 2 LD 5 C-Reactive Protein Total Protein Albumin Procalcitonin SARS-CoV-2 (PCR) Crossmatch 10/08/21 10/08/21 10/08/21 11:36 18:01 23:46 WBC RBC Hgb Hct MCHC RDW Neutrophils # Neutrophils # (Manual) Lymphocytes # Monocytes # Metamyelocytes # (Man) Myelocytes # (Manual) PT INR APTT D-Dimer ABG pH ABG pCO2 ABG pO2 ABG HCO3 ABG Total CO2 ABG O2 Saturation Sodium Potassium Chloride Carbon Dioxide BUN Creatinine Glucose POC Glucose (mg/dL) 148 H 165 H 105 H Calcium Magnesium AST ALT Lactate Dehydrogenase LD Isoenzymes LD 2 LD 5 C-Reactive Protein Total Protein Albumin Procalcitonin SARS-CoV-2 (PCR) Crossmatch 10/09/21 10/09/21 10/09/21 04:55 05:32 05:32 WBC 17.1 H RBC Hgb Hct MCHC 29.6 L RDW 17.4 H Neutrophils # 14.0 H Neutrophils # (Manual) Lymphocytes # Monocytes # 1.1 H Metamyelocytes # (Man) Myelocytes # (Manual) PT INR APTT D-Dimer ABG pH ABG pCO2 56 H ABG pO2 62 L ABG HCO3 36 H ABG Total CO2 38 H ABG O2 Saturation 91.8 L Sodium Potassium Chloride Carbon Dioxide 33 H BUN 34 H Creatinine Glucose 127 H POC Glucose (mg/dL) Calcium Magnesium AST ALT 54 H Lactate Dehydrogenase LD Isoenzymes LD 2 LD 5 C-Reactive Protein Total Protein 5.9 L Albumin 2.8 L Procalcitonin SARS-CoV-2 (PCR) Crossmatch 10/09/21 10/09/21 10/09/21 06:03 12:41 17:50 WBC RBC Hgb Hct MCHC RDW Neutrophils # Neutrophils # (Manual) Lymphocytes # Monocytes # Metamyelocytes # (Man) Myelocytes # (Manual) PT INR APTT D-Dimer ABG pH ABG pCO2 ABG pO2 ABG HCO3 ABG Total CO2 ABG O2 Saturation Sodium Potassium Chloride Carbon Dioxide BUN Creatinine Glucose POC Glucose (mg/dL) 118 H 190 H 167 H Calcium Magnesium AST ALT Lactate Dehydrogenase LD Isoenzymes LD 2 LD 5 C-Reactive Protein Total Protein Albumin Procalcitonin SARS-CoV-2 (PCR) Crossmatch 10/09/21 10/10/21 10/10/21 23:03 03:45 03:45 WBC 15.6 H RBC 3.65 L Hgb 10.7 L Hct 32.7 L MCHC RDW 17.6 H Neutrophils # 12.7 H Neutrophils # (Manual) Lymphocytes # Monocytes # Metamyelocytes # (Man) Myelocytes # (Manual) PT INR APTT D-Dimer ABG pH ABG pCO2 ABG pO2 ABG HCO3 ABG Total CO2 ABG O2 Saturation Sodium Potassium Chloride Carbon Dioxide 37 H BUN 35 H Creatinine Glucose 117 H POC Glucose (mg/dL) 136 H Calcium 8.2 L Magnesium AST ALT Lactate Dehydrogenase LD Isoenzymes LD 2 LD 5 C-Reactive Protein Total Protein Albumin Procalcitonin SARS-CoV-2 (PCR) Crossmatch 10/10/21 10/10/21 10/10/21 05:25 05:35 11:40 WBC RBC Hgb Hct MCHC RDW Neutrophils # Neutrophils # (Manual) Lymphocytes # Monocytes # Metamyelocytes # (Man) Myelocytes # (Manual) PT INR APTT D-Dimer ABG pH 7.50 H ABG pCO2 48 H ABG pO2 79 L ABG HCO3 37 H ABG Total CO2 39 H ABG O2 Saturation Sodium Potassium Chloride Carbon Dioxide BUN Creatinine Glucose POC Glucose (mg/dL) 101 H 166 H Calcium Magnesium AST ALT Lactate Dehydrogenase LD Isoenzymes LD 2 LD 5 C-Reactive Protein Total Protein Albumin Procalcitonin SARS-CoV-2 (PCR) Crossmatch 10/10/21 10/10/21 10/11/21 18:03 23:41 04:05 WBC 16.5 H RBC 3.79 L Hgb 10.6 L Hct MCHC 30.7 L RDW 18.0 H Neutrophils # 13.0 H Neutrophils # (Manual) Lymphocytes # Monocytes # Metamyelocytes # (Man) Myelocytes # (Manual) PT INR APTT D-Dimer ABG pH ABG pCO2 ABG pO2 ABG HCO3 ABG Total CO2 ABG O2 Saturation Sodium Potassium Chloride Carbon Dioxide BUN Creatinine Glucose POC Glucose (mg/dL) 149 H 125 H Calcium Magnesium AST ALT Lactate Dehydrogenase LD Isoenzymes LD 2 LD 5 C-Reactive Protein Total Protein Albumin Procalcitonin SARS-CoV-2 (PCR) Crossmatch 10/11/21 10/11/21 10/11/21 04:05 05:28 05:37 WBC RBC Hgb Hct MCHC RDW Neutrophils # Neutrophils # (Manual) Lymphocytes # Monocytes # Metamyelocytes # (Man) Myelocytes # (Manual) PT INR APTT D-Dimer ABG pH 7.47 H ABG pCO2 51 H ABG pO2 62 L ABG HCO3 37 H ABG Total CO2 38 H ABG O2 Saturation 92.4 L Sodium 136 L Potassium Chloride Carbon Dioxide 36 H BUN 32 H Creatinine Glucose 115 H POC Glucose (mg/dL) 111 H Calcium Magnesium AST ALT Lactate Dehydrogenase LD Isoenzymes LD 2 LD 5 C-Reactive Protein Total Protein Albumin Procalcitonin SARS-CoV-2 (PCR) Crossmatch 10/11/21 10/11/2122 11:42 14:10 14:10 WBC 18.0 H RBC 3.73 L Hgb 10.7 L Hct MCHC RDW 17.9 H Neutrophils # Neutrophils # (Manual) Lymphocytes # Monocytes # Metamyelocytes # (Man) Myelocytes # (Manual) PT INR APTT 21.8 L D-Dimer ABG pH ABG pCO2 ABG pO2 ABG HCO3 ABG Total CO2 ABG O2 Saturation Sodium Potassium Chloride Carbon Dioxide BUN Creatinine Glucose POC Glucose (mg/dL) 164 H Calcium Magnesium AST ALT Lactate Dehydrogenase LD Isoenzymes LD 2 LD 5 C-Reactive Protein Total Protein Albumin Procalcitonin SARS-CoV-2 (PCR) Crossmatch 10/11/21 10/11/21 10/11/21 17:45 23:45 23:46 WBC RBC Hgb Hct MCHC RDW Neutrophils # Neutrophils # (Manual) Lymphocytes # Monocytes # Metamyelocytes # (Man) Myelocytes # (Manual) PT INR APTT 21.5 L D-Dimer 1.24 H ABG pH ABG pCO2 ABG pO2 ABG HCO3 ABG Total CO2 ABG O2 Saturation Sodium Potassium Chloride Carbon Dioxide BUN Creatinine Glucose POC Glucose (mg/dL) 164 H 136 H Calcium Magnesium AST ALT Lactate Dehydrogenase LD Isoenzymes LD 2 LD 5 C-Reactive Protein Total Protein Albumin Procalcitonin SARS-CoV-2 (PCR) Crossmatch 10/12/21 10/12/21 10/12/21 00:10 02:23 06:13 WBC 23.4 H RBC 3.55 L Hgb 10.1 L Hct 31.8 L MCHC RDW 17.7 H Neutrophils # 20.3 H Neutrophils # (Manual) Lymphocytes # Monocytes # 1.6 H Metamyelocytes # (Man) Myelocytes # (Manual) PT INR APTT D-Dimer ABG pH ABG pCO2 58 H ABG pO2 74 L ABG HCO3 37 H ABG Total CO2 39 H ABG O2 Saturation Sodium Potassium Chloride Carbon Dioxide BUN Creatinine Glucose POC Glucose (mg/dL) Calcium Magnesium AST ALT Lactate Dehydrogenase LD Isoenzymes LD 2 LD 5 C-Reactive Protein Total Protein Albumin Procalcitonin SARS-CoV-2 (PCR) Crossmatch See Detail 10/12/21 10/12/21 10/12/21 06:24 07:20 07:20 WBC 17.3 H RBC 2.27 L Hgb 6.5 L* D Hct 20.4 L MCHC RDW 17.8 H Neutrophils # 14.1 H Neutrophils # (Manual) Lymphocytes # Monocytes # 1.1 H Metamyelocytes # (Man) Myelocytes # (Manual) PT INR APTT D-Dimer ABG pH ABG pCO2 ABG pO2 ABG HCO3 ABG Total CO2 ABG O2 Saturation Sodium Potassium Chloride Carbon Dioxide 36 H BUN 30 H Creatinine Glucose 125 H POC Glucose (mg/dL) 129 H Calcium 8.2 L Magnesium AST ALT Lactate Dehydrogenase LD Isoenzymes LD 2 LD 5 C-Reactive Protein Total Protein 4.7 L Albumin 2.4 L Procalcitonin SARS-CoV-2 (PCR) Crossmatch 10/12/21 10/12/21 10/12/21 07:20 11:47 12:02 WBC 14.4 H RBC 2.63 L Hgb 7.7 L Hct 23.3 L MCHC RDW 17.5 H Neutrophils # 11.2 H Neutrophils # (Manual) Lymphocytes # Monocytes # Metamyelocytes # (Man) Myelocytes # (Manual) PT INR APTT 20.6 L D-Dimer 0.92 H ABG pH ABG pCO2 ABG pO2 ABG HCO3 ABG Total CO2 ABG O2 Saturation Sodium Potassium Chloride Carbon Dioxide BUN Creatinine Glucose POC Glucose (mg/dL) 128 H Calcium Magnesium AST ALT Lactate Dehydrogenase LD Isoenzymes LD 2 LD 5 C-Reactive Protein Total Protein Albumin Procalcitonin SARS-CoV-2 (PCR) Crossmatch 10/12/21 10/12/21 10/12/21 16:58 18:48 23:05 WBC 14.9 H RBC 2.76 L Hgb 7.9 L Hct 24.7 L MCHC RDW 17.9 H Neutrophils # 13.0 H Neutrophils # (Manual) Lymphocytes # 0.9 L Monocytes # Metamyelocytes # (Man) Myelocytes # (Manual) PT INR APTT D-Dimer ABG pH ABG pCO2 ABG pO2 ABG HCO3 ABG Total CO2 ABG O2 Saturation Sodium Potassium Chloride Carbon Dioxide BUN Creatinine Glucose POC Glucose (mg/dL) 172 H 133 H Calcium Magnesium AST ALT Lactate Dehydrogenase LD Isoenzymes LD 2 LD 5 C-Reactive Protein Total Protein Albumin Procalcitonin SARS-CoV-2 (PCR) Crossmatch 10/13/21 10/13/21 10/13/21 04:13 04:13 05:17 WBC 18.0 H RBC 2.56 L Hgb 7.3 L Hct 22.8 L MCHC RDW 18.4 H Neutrophils # 15.1 H Neutrophils # (Manual) Lymphocytes # Monocytes # Metamyelocytes # (Man) Myelocytes # (Manual) PT INR APTT D-Dimer ABG pH ABG pCO2 50 H ABG pO2 ABG HCO3 34 H ABG Total CO2 35 H ABG O2 Saturation 98.1 H Sodium Potassium Chloride Carbon Dioxide 32 H BUN 27 H Creatinine Glucose 106 H POC Glucose (mg/dL) Calcium 8.1 L Magnesium AST ALT Lactate Dehydrogenase LD Isoenzymes LD 2 LD 5 C-Reactive Protein Total Protein Albumin Procalcitonin SARS-CoV-2 (PCR) Crossmatch 10/13/21 10/13/21 10/13/21 05:25 11:59 17:55 WBC RBC Hgb Hct MCHC RDW Neutrophils # Neutrophils # (Manual) Lymphocytes # Monocytes # Metamyelocytes # (Man) Myelocytes # (Manual) PT INR APTT D-Dimer ABG pH ABG pCO2 ABG pO2 ABG HCO3 ABG Total CO2 ABG O2 Saturation Sodium Potassium Chloride Carbon Dioxide BUN Creatinine Glucose POC Glucose (mg/dL) 102 H 169 H 191 H Calcium Magnesium AST ALT Lactate Dehydrogenase LD Isoenzymes LD 2 LD 5 C-Reactive Protein Total Protein Albumin Procalcitonin SARS-CoV-2 (PCR) Crossmatch 10/13/21 10/14/21 10/14/21 23:46 05:50 06:09 WBC RBC Hgb Hct MCHC RDW Neutrophils # Neutrophils # (Manual) Lymphocytes # Monocytes # Metamyelocytes # (Man) Myelocytes # (Manual) PT INR APTT D-Dimer ABG pH ABG pCO2 57 H ABG pO2 53 L* ABG HCO3 34 H ABG Total CO2 36 H ABG O2 Saturation 86.6 L Sodium Potassium Chloride Carbon Dioxide BUN Creatinine Glucose POC Glucose (mg/dL) 111 H 118 H Calcium Magnesium AST ALT Lactate Dehydrogenase LD Isoenzymes LD 2 LD 5 C-Reactive Protein Total Protein Albumin Procalcitonin SARS-CoV-2 (PCR) Crossmatch 10/14/21 10/14/21 10/14/21 08:40 08:40 11:31 WBC 21.7 H RBC 3.00 L Hgb 8.7 L Hct 27.4 L MCHC RDW 18.6 H Neutrophils # 17.4 H Neutrophils # (Manual) Lymphocytes # Monocytes # 1.3 H Metamyelocytes # (Man) Myelocytes # (Manual) PT INR APTT D-Dimer ABG pH ABG pCO2 ABG pO2 ABG HCO3 ABG Total CO2 ABG O2 Saturation Sodium Potassium 3.4 L Chloride Carbon Dioxide 35 H BUN 25 H Creatinine Glucose 111 H POC Glucose (mg/dL) 110 H Calcium Magnesium AST ALT Lactate Dehydrogenase LD Isoenzymes LD 2 LD 5 C-Reactive Protein Total Protein Albumin Procalcitonin SARS-CoV-2 (PCR) Crossmatch 10/14/21 10/15/21 10/15/21 21:30 00:16 04:00 WBC RBC Hgb Hct MCHC RDW Neutrophils # Neutrophils # (Manual) Lymphocytes # Monocytes # Metamyelocytes # (Man) Myelocytes # (Manual) PT INR APTT D-Dimer ABG pH ABG pCO2 ABG pO2 ABG HCO3 ABG Total CO2 ABG O2 Saturation Sodium Potassium 3.3 L Chloride Carbon Dioxide 32 H BUN 22 H Creatinine Glucose 101 H POC Glucose (mg/dL) 110 H Calcium 8.1 L Magnesium AST ALT Lactate Dehydrogenase LD Isoenzymes LD 2 LD 5 C-Reactive Protein Total Protein Albumin Procalcitonin SARS-CoV-2 (PCR) Crossmatch 10/15/21 10/15/21 10/15/21 04:00 05:50 12:11 WBC 21.5 H RBC 2.93 L Hgb 8.3 L Hct 27.2 L MCHC 30.7 L RDW 18.6 H Neutrophils # 17.4 H Neutrophils # (Manual) Lymphocytes # Monocytes # 1.4 H Metamyelocytes # (Man) Myelocytes # (Manual) PT INR APTT D-Dimer ABG pH ABG pCO2 61 H ABG pO2 ABG HCO3 34 H ABG Total CO2 36 H ABG O2 Saturation 97.9 H Sodium Potassium Chloride Carbon Dioxide BUN Creatinine Glucose POC Glucose (mg/dL) 167 H Calcium Magnesium AST ALT Lactate Dehydrogenase LD Isoenzymes LD 2 LD 5 C-Reactive Protein Total Protein Albumin Procalcitonin SARS-CoV-2 (PCR) Crossmatch 10/15/21 10/15/21 10/16/21 13:47 17:32 00:27 WBC RBC Hgb Hct MCHC RDW Neutrophils # Neutrophils # (Manual) Lymphocytes # Monocytes # Metamyelocytes # (Man) Myelocytes # (Manual) PT INR APTT D-Dimer ABG pH ABG pCO2 ABG pO2 ABG HCO3 ABG Total CO2 ABG O2 Saturation Sodium Potassium Chloride Carbon Dioxide BUN Creatinine Glucose POC Glucose (mg/dL) 151 H 162 H 134 H Calcium Magnesium AST ALT Lactate Dehydrogenase LD Isoenzymes LD 2 LD 5 C-Reactive Protein Total Protein Albumin Procalcitonin SARS-CoV-2 (PCR) Crossmatch 10/16/21 10/16/21 10/16/21 05:50 08:00 08:00 WBC 16.9 H RBC 3.01 L Hgb 8.9 L Hct 28.2 L MCHC RDW 19.2 H Neutrophils # 13.6 H Neutrophils # (Manual) Lymphocytes # Monocytes # Metamyelocytes # (Man) Myelocytes # (Manual) PT INR APTT D-Dimer ABG pH ABG pCO2 58 H ABG pO2 80 L ABG HCO3 37 H ABG Total CO2 39 H ABG O2 Saturation Sodium Potassium Chloride Carbon Dioxide 33 H BUN 19 H Creatinine 0.50 L Glucose 114 H POC Glucose (mg/dL) Calcium 8.1 L Magnesium AST ALT Lactate Dehydrogenase LD Isoenzymes LD 2 LD 5 C-Reactive Protein Total Protein Albumin Procalcitonin SARS-CoV-2 (PCR) Crossmatch 10/16/21 10/16/21 10/16/21 13:14 15:29 18:16 WBC RBC Hgb Hct MCHC RDW Neutrophils # Neutrophils # (Manual) Lymphocytes # Monocytes # Metamyelocytes # (Man) Myelocytes # (Manual) PT INR APTT D-Dimer ABG pH 7.58 H* ABG pCO2 ABG pO2 185 H ABG HCO3 37 H ABG Total CO2 39 H ABG O2 Saturation 100.0 H Sodium Potassium Chloride Carbon Dioxide BUN Creatinine Glucose POC Glucose (mg/dL) 193 H 132 H Calcium Magnesium AST ALT Lactate Dehydrogenase LD Isoenzymes LD 2 LD 5 C-Reactive Protein Total Protein Albumin Procalcitonin SARS-CoV-2 (PCR) Crossmatch 10/16/21 10/17/21 10/17/21 23:29 04:58 05:00 WBC RBC Hgb Hct MCHC RDW Neutrophils # Neutrophils # (Manual) Lymphocytes # Monocytes # Metamyelocytes # (Man) Myelocytes # (Manual) PT INR APTT D-Dimer ABG pH 7.46 H ABG pCO2 47 H ABG pO2 54 L* ABG HCO3 33 H ABG Total CO2 35 H ABG O2 Saturation 89.7 L Sodium Potassium 2.9 L Chloride Carbon Dioxide BUN 20 H Creatinine 0.39 L Glucose 104 H POC Glucose (mg/dL) 129 H Calcium 7.2 L Magnesium AST ALT Lactate Dehydrogenase LD Isoenzymes LD 2 LD 5 C-Reactive Protein Total Protein Albumin Procalcitonin SARS-CoV-2 (PCR) Crossmatch 10/17/21 10/17/21 10/17/21 06:57 07:26 08:33 WBC RBC Hgb Hct MCHC RDW Neutrophils # Neutrophils # (Manual) Lymphocytes # Monocytes # Metamyelocytes # (Man) Myelocytes # (Manual) PT INR APTT D-Dimer ABG pH 7.46 H ABG pCO2 48 H ABG pO2 69 L ABG HCO3 34 H ABG Total CO2 35 H ABG O2 Saturation Sodium 136 L Potassium 3.1 L Chloride Carbon Dioxide 32 H BUN 21 H Creatinine 0.48 L Glucose 111 H POC Glucose (mg/dL) 120 H Calcium 7.8 L Magnesium AST ALT Lactate Dehydrogenase LD Isoenzymes LD 2 LD 5 C-Reactive Protein Total Protein 4.6 L Albumin 2.3 L Procalcitonin SARS-CoV-2 (PCR) Crossmatch 10/17/21 10/17/21 10/17/21 08:33 11:20 17:27 WBC 15.8 H RBC 2.68 L Hgb 8.2 L Hct 24.4 L MCHC RDW 18.8 H Neutrophils # 12.6 H Neutrophils # (Manual) Lymphocytes # Monocytes # 1.1 H Metamyelocytes # (Man) Myelocytes # (Manual) PT INR APTT D-Dimer ABG pH ABG pCO2 ABG pO2 ABG HCO3 ABG Total CO2 ABG O2 Saturation Sodium Potassium Chloride Carbon Dioxide BUN Creatinine Glucose POC Glucose (mg/dL) 131 H 200 H Calcium Magnesium AST ALT Lactate Dehydrogenase LD Isoenzymes LD 2 LD 5 C-Reactive Protein Total Protein Albumin Procalcitonin SARS-CoV-2 (PCR) Crossmatch 10/17/21 10/18/21 10/18/21 23:02 05:10 05:15 WBC RBC Hgb Hct MCHC RDW Neutrophils # Neutrophils # (Manual) Lymphocytes # Monocytes # Metamyelocytes # (Man) Myelocytes # (Manual) PT INR APTT D-Dimer ABG pH 7.47 H ABG pCO2 49 H ABG pO2 49 L* ABG HCO3 36 H ABG Total CO2 38 H ABG O2 Saturation 85.7 L Sodium Potassium Chloride Carbon Dioxide BUN Creatinine Glucose POC Glucose (mg/dL) 135 H 117 H Calcium Magnesium AST ALT Lactate Dehydrogenase LD Isoenzymes LD 2 LD 5 C-Reactive Protein Total Protein Albumin Procalcitonin SARS-CoV-2 (PCR) Crossmatch 10/18/21 10/18/21 10/18/21 05:17 05:17 11:26 WBC 19.7 H RBC 2.86 L Hgb 8.3 L Hct 26.1 L MCHC RDW 19.0 H Neutrophils # 15.2 H Neutrophils # (Manual) Lymphocytes # Monocytes # 1.5 H Metamyelocytes # (Man) Myelocytes # (Manual) PT INR APTT D-Dimer ABG pH ABG pCO2 ABG pO2 ABG HCO3 ABG Total CO2 ABG O2 Saturation Sodium Potassium 3.3 L Chloride Carbon Dioxide 36 H BUN 23 H Creatinine Glucose 107 H POC Glucose (mg/dL) 173 H Calcium 8.1 L Magnesium AST ALT Lactate Dehydrogenase LD Isoenzymes LD 2 LD 5 C-Reactive Protein Total Protein 5.0 L Albumin 2.6 L Procalcitonin SARS-CoV-2 (PCR) Crossmatch 10/18/21 10/18/21 10/18/21 13:40 17:33 23:40 WBC RBC Hgb Hct MCHC RDW Neutrophils # Neutrophils # (Manual) Lymphocytes # Monocytes # Metamyelocytes # (Man) Myelocytes # (Manual) PT INR APTT D-Dimer ABG pH ABG pCO2 ABG pO2 ABG HCO3 ABG Total CO2 ABG O2 Saturation Sodium Potassium 3.4 L Chloride Carbon Dioxide BUN Creatinine Glucose POC Glucose (mg/dL) 168 H 137 H Calcium Magnesium AST ALT Lactate Dehydrogenase LD Isoenzymes LD 2 LD 5 C-Reactive Protein Total Protein Albumin Procalcitonin SARS-CoV-2 (PCR) Crossmatch 10/19/21 10/19/21 10/19/21 03:00 03:00 05:20 WBC 14.8 H RBC 2.71 L Hgb 7.6 L Hct 24.8 L MCHC 30.8 L RDW 19.2 H Neutrophils # 11.4 H Neutrophils # (Manual) Lymphocytes # Monocytes # Metamyelocytes # (Man) Myelocytes # (Manual) PT INR APTT D-Dimer ABG pH 7.55 H ABG pCO2 ABG pO2 66 L ABG HCO3 37 H ABG Total CO2 38 H ABG O2 Saturation Sodium Potassium Chloride Carbon Dioxide 35 H BUN 24 H Creatinine Glucose 100 H POC Glucose (mg/dL) Calcium 7.9 L Magnesium AST ALT Lactate Dehydrogenase LD Isoenzymes LD 2 LD 5 C-Reactive Protein Total Protein 4.6 L Albumin 2.4 L Procalcitonin SARS-CoV-2 (PCR) Crossmatch 10/19/21 10/19/21 10/19/21 05:54 11:46 17:43 WBC RBC Hgb Hct MCHC RDW Neutrophils # Neutrophils # (Manual) Lymphocytes # Monocytes # Metamyelocytes # (Man) Myelocytes # (Manual) PT INR APTT D-Dimer ABG pH ABG pCO2 ABG pO2 ABG HCO3 ABG Total CO2 ABG O2 Saturation Sodium Potassium Chloride Carbon Dioxide BUN Creatinine Glucose POC Glucose (mg/dL) 114 H 171 H 193 H Calcium Magnesium AST ALT Lactate Dehydrogenase LD Isoenzymes LD 2 LD 5 C-Reactive Protein Total Protein Albumin Procalcitonin SARS-CoV-2 (PCR) Crossmatch 10/19/21 10/20/21 10/20/21 23:40 04:40 04:40 WBC 13.5 H RBC 2.75 L Hgb 8.1 L Hct 25.7 L MCHC RDW 18.7 H Neutrophils # 10.0 H Neutrophils # (Manual) Lymphocytes # Monocytes # Metamyelocytes # (Man) Myelocytes # (Manual) PT INR APTT D-Dimer ABG pH ABG pCO2 ABG pO2 ABG HCO3 ABG Total CO2 ABG O2 Saturation Sodium Potassium 3.1 L Chloride Carbon Dioxide 36 H BUN 23 H Creatinine 0.50 L Glucose POC Glucose (mg/dL) 129 H Calcium 8.3 L Magnesium AST ALT Lactate Dehydrogenase LD Isoenzymes LD 2 LD 5 C-Reactive Protein Total Protein 5.0 L Albumin 2.6 L Procalcitonin SARS-CoV-2 (PCR) Crossmatch 10/20/21 10/20/21 10/20/21 05:56 06:10 12:27 WBC RBC Hgb Hct MCHC RDW Neutrophils # Neutrophils # (Manual) Lymphocytes # Monocytes # Metamyelocytes # (Man) Myelocytes # (Manual) PT INR APTT D-Dimer ABG pH 7.50 H ABG pCO2 48 H ABG pO2 65 L ABG HCO3 38 H ABG Total CO2 39 H ABG O2 Saturation Sodium Potassium Chloride Carbon Dioxide BUN Creatinine Glucose POC Glucose (mg/dL) 105 H 142 H Calcium Magnesium AST ALT Lactate Dehydrogenase LD Isoenzymes LD 2 LD 5 C-Reactive Protein Total Protein Albumin Procalcitonin SARS-CoV-2 (PCR) Crossmatch 10/20/21 10/20/21 10/20/21 17:30 18:32 23:56 WBC RBC Hgb Hct MCHC RDW Neutrophils # Neutrophils # (Manual) Lymphocytes # Monocytes # Metamyelocytes # (Man) Myelocytes # (Manual) PT INR APTT D-Dimer ABG pH ABG pCO2 ABG pO2 ABG HCO3 ABG Total CO2 ABG O2 Saturation Sodium Potassium Chloride Carbon Dioxide BUN Creatinine Glucose POC Glucose (mg/dL) 230 H 201 H 109 H Calcium Magnesium AST ALT Lactate Dehydrogenase LD Isoenzymes LD 2 LD 5 C-Reactive Protein Total Protein Albumin Procalcitonin SARS-CoV-2 (PCR) Crossmatch 10/21/21 10/21/21 10/21/21 05:04 05:15 05:15 WBC 14.4 H RBC 2.96 L Hgb 8.4 L Hct 27.7 L MCHC 30.3 L RDW 18.8 H Neutrophils # 10.7 H Neutrophils # (Manual) Lymphocytes # Monocytes # Metamyelocytes # (Man) Myelocytes # (Manual) PT INR APTT D-Dimer ABG pH 7.46 H ABG pCO2 53 H ABG pO2 58 L* ABG HCO3 38 H ABG Total CO2 40 H ABG O2 Saturation 90.3 L Sodium Potassium Chloride Carbon Dioxide 36 H BUN 22 H Creatinine Glucose 105 H POC Glucose (mg/dL) Calcium 8.3 L Magnesium AST ALT Lactate Dehydrogenase LD Isoenzymes LD 2 LD 5 C-Reactive Protein Total Protein Albumin Procalcitonin SARS-CoV-2 (PCR) Crossmatch 10/21/21 10/21/21 10/21/21 05:45 11:53 17:40 WBC RBC Hgb Hct MCHC RDW Neutrophils # Neutrophils # (Manual) Lymphocytes # Monocytes # Metamyelocytes # (Man) Myelocytes # (Manual) PT INR APTT D-Dimer ABG pH ABG pCO2 ABG pO2 ABG HCO3 ABG Total CO2 ABG O2 Saturation Sodium Potassium Chloride Carbon Dioxide BUN Creatinine Glucose POC Glucose (mg/dL) 116 H 220 H 144 H Calcium Magnesium AST ALT Lactate Dehydrogenase LD Isoenzymes LD 2 LD 5 C-Reactive Protein Total Protein Albumin Procalcitonin SARS-CoV-2 (PCR) Crossmatch 10/22/21 10/22/21 10/22/21 00:27 03:35 03:35 WBC 20.0 H RBC 2.92 L Hgb 8.5 L Hct 27.5 L MCHC 30.9 L RDW 18.4 H Neutrophils # 16.0 H Neutrophils # (Manual) Lymphocytes # Monocytes # 1.2 H Metamyelocytes # (Man) Myelocytes # (Manual) PT INR APTT D-Dimer ABG pH ABG pCO2 ABG pO2 ABG HCO3 ABG Total CO2 ABG O2 Saturation Sodium Potassium 3.3 L Chloride Carbon Dioxide 36 H BUN 23 H Creatinine 0.37 L Glucose 121 H POC Glucose (mg/dL) 126 H Calcium 8.3 L Magnesium AST ALT Lactate Dehydrogenase LD Isoenzymes LD 2 LD 5 C-Reactive Protein Total Protein Albumin Procalcitonin SARS-CoV-2 (PCR) Crossmatch 10/22/21 10/22/21 10/22/21 05:18 05:23 08:55 WBC RBC Hgb Hct MCHC RDW Neutrophils # Neutrophils # (Manual) Lymphocytes # Monocytes # Metamyelocytes # (Man) Myelocytes # (Manual) PT INR APTT D-Dimer ABG pH 7.46 H 7.47 H ABG pCO2 54 H 53 H ABG pO2 59 L* 138 H ABG HCO3 39 H 38 H ABG Total CO2 40 H 40 H ABG O2 Saturation 90.9 L 99.9 H Sodium Potassium Chloride Carbon Dioxide BUN Creatinine Glucose POC Glucose (mg/dL) 117 H Calcium Magnesium AST ALT Lactate Dehydrogenase LD Isoenzymes LD 2 LD 5 C-Reactive Protein Total Protein Albumin Procalcitonin SARS-CoV-2 (PCR) Crossmatch 10/22/21 10/22/21 10/22/21 12:05 18:00 22:36 WBC RBC Hgb Hct MCHC RDW Neutrophils # Neutrophils # (Manual) Lymphocytes # Monocytes # Metamyelocytes # (Man) Myelocytes # (Manual) PT INR APTT D-Dimer ABG pH 7.63 H* ABG pCO2 ABG pO2 43 L* ABG HCO3 38 H ABG Total CO2 39 H ABG O2 Saturation 85.6 L Sodium Potassium Chloride Carbon Dioxide BUN Creatinine Glucose POC Glucose (mg/dL) 169 H 153 H Calcium Magnesium AST ALT Lactate Dehydrogenase LD Isoenzymes LD 2 LD 5 C-Reactive Protein Total Protein Albumin Procalcitonin SARS-CoV-2 (PCR) Crossmatch 10/22/21 10/23/21 10/23/21 23:16 04:20 04:20 WBC 13.7 H RBC 2.67 L Hgb 7.7 L Hct 24.9 L MCHC RDW 18.0 H Neutrophils # 10.6 H Neutrophils # (Manual) Lymphocytes # Monocytes # Metamyelocytes # (Man) Myelocytes # (Manual) PT INR APTT D-Dimer ABG pH ABG pCO2 ABG pO2 ABG HCO3 ABG Total CO2 ABG O2 Saturation Sodium Potassium 3.0 L Chloride Carbon Dioxide 37 H BUN 19 H Creatinine 0.44 L Glucose POC Glucose (mg/dL) 106 H Calcium 8.1 L Magnesium AST ALT Lactate Dehydrogenase LD Isoenzymes LD 2 LD 5 C-Reactive Protein Total Protein Albumin Procalcitonin SARS-CoV-2 (PCR) Crossmatch 10/23/21 10/23/21 10/23/21 05:43 05:49 11:44 WBC RBC Hgb Hct MCHC RDW Neutrophils # Neutrophils # (Manual) Lymphocytes # Monocytes # Metamyelocytes # (Man) Myelocytes # (Manual) PT INR APTT D-Dimer ABG pH 7.58 H* ABG pCO2 ABG pO2 63 L ABG HCO3 37 H ABG Total CO2 38 H ABG O2 Saturation Sodium Potassium Chloride Carbon Dioxide BUN Creatinine Glucose POC Glucose (mg/dL) 109 H 184 H Calcium Magnesium AST ALT Lactate Dehydrogenase LD Isoenzymes LD 2 LD 5 C-Reactive Protein Total Protein Albumin Procalcitonin SARS-CoV-2 (PCR) Crossmatch 10/23/21 10/23/21 10/23/21 12:30 14:46 17:39 WBC RBC Hgb Hct MCHC RDW Neutrophils # Neutrophils # (Manual) Lymphocytes # Monocytes # Metamyelocytes # (Man) Myelocytes # (Manual) PT INR APTT D-Dimer ABG pH 7.50 H ABG pCO2 48 H ABG pO2 167 H ABG HCO3 38 H ABG Total CO2 39 H ABG O2 Saturation 100.0 H Sodium Potassium 3.4 L Chloride Carbon Dioxide BUN Creatinine Glucose POC Glucose (mg/dL) 191 H Calcium Magnesium AST ALT Lactate Dehydrogenase LD Isoenzymes LD 2 LD 5 C-Reactive Protein Total Protein Albumin Procalcitonin SARS-CoV-2 (PCR) Crossmatch 10/23/21 10/24/21 10/24/21 23:15 04:15 04:15 WBC 14.2 H RBC 2.55 L Hgb 7.1 L Hct 23.8 L MCHC 29.7 L RDW 17.1 H Neutrophils # Neutrophils # (Manual) Lymphocytes # Monocytes # Metamyelocytes # (Man) Myelocytes # (Manual) PT INR APTT D-Dimer ABG pH ABG pCO2 ABG pO2 ABG HCO3 ABG Total CO2 ABG O2 Saturation Sodium Potassium 3.4 L Chloride Carbon Dioxide 38 H BUN 20 H Creatinine 0.46 L Glucose 103 H POC Glucose (mg/dL) 131 H Calcium 7.8 L Magnesium AST ALT Lactate Dehydrogenase LD Isoenzymes LD 2 LD 5 C-Reactive Protein Total Protein Albumin Procalcitonin SARS-CoV-2 (PCR) Crossmatch 10/24/21 10/24/21 10/24/21 05:23 05:44 10:53 WBC RBC Hgb Hct MCHC RDW Neutrophils # Neutrophils # (Manual) Lymphocytes # Monocytes # Metamyelocytes # (Man) Myelocytes # (Manual) PT INR APTT D-Dimer ABG pH 7.50 H ABG pCO2 47 H ABG pO2 ABG HCO3 37 H ABG Total CO2 39 H ABG O2 Saturation 99.0 H Sodium Potassium 3.3 L Chloride Carbon Dioxide 37 H BUN 20 H Creatinine 0.46 L Glucose 119 H POC Glucose (mg/dL) 121 H Calcium 8.1 L Magnesium AST ALT Lactate Dehydrogenase LD Isoenzymes LD 2 LD 5 C-Reactive Protein Total Protein Albumin Procalcitonin SARS-CoV-2 (PCR) Crossmatch 10/24/21 10/24/21 10/24/21 12:08 17:22 23:35 WBC RBC Hgb Hct MCHC RDW Neutrophils # Neutrophils # (Manual) Lymphocytes # Monocytes # Metamyelocytes # (Man) Myelocytes # (Manual) PT INR APTT D-Dimer ABG pH ABG pCO2 ABG pO2 ABG HCO3 ABG Total CO2 ABG O2 Saturation Sodium Potassium Chloride Carbon Dioxide BUN Creatinine Glucose POC Glucose (mg/dL) 167 H 149 H 115 H Calcium Magnesium AST ALT Lactate Dehydrogenase LD Isoenzymes LD 2 LD 5 C-Reactive Protein Total Protein Albumin Procalcitonin SARS-CoV-2 (PCR) Crossmatch 10/24/21 10/25/21 10/25/21 23:47 04:45 04:45 WBC RBC 2.28 L Hgb 6.3 L* Hct 21.6 L MCHC 29.4 L RDW 17.0 H Neutrophils # Neutrophils # (Manual) Lymphocytes # Monocytes # Metamyelocytes # (Man) Myelocytes # (Manual) PT INR APTT D-Dimer ABG pH ABG pCO2 ABG pO2 ABG HCO3 ABG Total CO2 ABG O2 Saturation Sodium Potassium 3.4 L Chloride Carbon Dioxide 35 H BUN 22 H Creatinine 0.41 L Glucose POC Glucose (mg/dL) 122 H Calcium 7.7 L Magnesium AST ALT Lactate Dehydrogenase LD Isoenzymes LD 2 LD 5 C-Reactive Protein Total Protein Albumin Procalcitonin SARS-CoV-2 (PCR) Crossmatch 10/25/21 10/25/21 10/25/21 04:57 06:15 11:54 WBC RBC Hgb Hct MCHC RDW Neutrophils # Neutrophils # (Manual) Lymphocytes # Monocytes # Metamyelocytes # (Man) Myelocytes # (Manual) PT INR APTT D-Dimer ABG pH ABG pCO2 58 H ABG pO2 ABG HCO3 37 H ABG Total CO2 39 H ABG O2 Saturation 98.9 H Sodium Potassium Chloride Carbon Dioxide BUN Creatinine Glucose POC Glucose (mg/dL) 202 H Calcium Magnesium AST ALT Lactate Dehydrogenase LD Isoenzymes LD 2 LD 5 C-Reactive Protein Total Protein Albumin Procalcitonin SARS-CoV-2 (PCR) Crossmatch See Detail 10/25/21 10/25/21 10/25/21 16:17 17:31 23:55 WBC 19.8 H RBC 3.66 L Hgb 10.7 L D Hct MCHC RDW 16.5 H Neutrophils # 17.7 H Neutrophils # (Manual) Lymphocytes # 0.7 L Monocytes # 1.1 H Metamyelocytes # (Man) Myelocytes # (Manual) PT INR APTT D-Dimer ABG pH ABG pCO2 ABG pO2 ABG HCO3 ABG Total CO2 ABG O2 Saturation Sodium Potassium Chloride Carbon Dioxide BUN Creatinine Glucose POC Glucose (mg/dL) 167 H 108 H Calcium Magnesium AST ALT Lactate Dehydrogenase LD Isoenzymes LD 2 LD 5 C-Reactive Protein Total Protein Albumin Procalcitonin SARS-CoV-2 (PCR) Crossmatch 10/26/21 10/26/21 10/26/21 04:00 04:00 05:25 WBC 13.1 H RBC 3.00 L Hgb 8.7 L D Hct 27.7 L MCHC RDW 16.5 H Neutrophils # Neutrophils # (Manual) Lymphocytes # Monocytes # Metamyelocytes # (Man) Myelocytes # (Manual) PT INR APTT D-Dimer ABG pH ABG pCO2 53 H ABG pO2 182 H ABG HCO3 36 H ABG Total CO2 38 H ABG O2 Saturation 100.0 H Sodium 136 L Potassium Chloride Carbon Dioxide 35 H BUN 23 H Creatinine 0.35 L Glucose POC Glucose (mg/dL) Calcium 8.2 L Magnesium AST ALT Lactate Dehydrogenase LD Isoenzymes LD 2 LD 5 C-Reactive Protein Total Protein Albumin Procalcitonin SARS-CoV-2 (PCR) Crossmatch 10/26/21 10/26/21 10/26/21 11:23 11:48 18:04 WBC RBC Hgb Hct MCHC RDW Neutrophils # Neutrophils # (Manual) Lymphocytes # Monocytes # Metamyelocytes # (Man) Myelocytes # (Manual) PT INR APTT D-Dimer ABG pH ABG pCO2 ABG pO2 ABG HCO3 ABG Total CO2 ABG O2 Saturation Sodium Potassium 3.4 L Chloride Carbon Dioxide BUN Creatinine Glucose POC Glucose (mg/dL) 112 H 128 H Calcium Magnesium AST ALT Lactate Dehydrogenase LD Isoenzymes LD 2 LD 5 C-Reactive Protein Total Protein Albumin Procalcitonin SARS-CoV-2 (PCR) Crossmatch 10/27/21 10/27/21 10/27/21 04:05 04:05 05:26 WBC RBC 3.20 L Hgb 9.2 L Hct 29.2 L MCHC RDW 16.4 H Neutrophils # Neutrophils # (Manual) Lymphocytes # Monocytes # Metamyelocytes # (Man) Myelocytes # (Manual) PT INR APTT D-Dimer ABG pH 7.51 H ABG pCO2 46 H ABG pO2 53 L* ABG HCO3 36 H ABG Total CO2 38 H ABG O2 Saturation 89.1 L Sodium Potassium 3.3 L Chloride Carbon Dioxide 34 H BUN 20 H Creatinine 0.35 L Glucose POC Glucose (mg/dL) Calcium 8.3 L Magnesium AST ALT Lactate Dehydrogenase LD Isoenzymes LD 2 LD 5 C-Reactive Protein Total Protein Albumin Procalcitonin SARS-CoV-2 (PCR) Crossmatch 10/27/21 10/27/21 10/27/21 11:30 14:16 19:06 WBC RBC Hgb Hct MCHC RDW Neutrophils # Neutrophils # (Manual) Lymphocytes # Monocytes # Metamyelocytes # (Man) Myelocytes # (Manual) PT INR APTT D-Dimer ABG pH ABG pCO2 ABG pO2 ABG HCO3 ABG Total CO2 ABG O2 Saturation Sodium Potassium Chloride Carbon Dioxide BUN Creatinine Glucose POC Glucose (mg/dL) 154 H 189 H 131 H Calcium Magnesium AST ALT Lactate Dehydrogenase LD Isoenzymes LD 2 LD 5 C-Reactive Protein Total Protein Albumin Procalcitonin SARS-CoV-2 (PCR) Crossmatch 10/28/21 10/28/21 10/28/21 04:10 04:10 10:03 WBC RBC 3.20 L Hgb 9.1 L Hct 29.2 L MCHC RDW 16.4 H Neutrophils # Neutrophils # (Manual) Lymphocytes # Monocytes # Metamyelocytes # (Man) Myelocytes # (Manual) PT INR APTT D-Dimer ABG pH 7.51 H ABG pCO2 ABG pO2 72 L ABG HCO3 34 H ABG Total CO2 36 H ABG O2 Saturation Sodium Potassium 3.0 L Chloride Carbon Dioxide 34 H BUN 20 H Creatinine 0.39 L Glucose POC Glucose (mg/dL) Calcium 8.0 L Magnesium AST ALT Lactate Dehydrogenase LD Isoenzymes LD 2 LD 5 C-Reactive Protein Total Protein Albumin Procalcitonin SARS-CoV-2 (PCR) Crossmatch 10/28/21 10/28/21 10/29/21 11:27 17:41 00:00 WBC RBC Hgb Hct MCHC RDW Neutrophils # Neutrophils # (Manual) Lymphocytes # Monocytes # Metamyelocytes # (Man) Myelocytes # (Manual) PT INR APTT D-Dimer ABG pH ABG pCO2 ABG pO2 ABG HCO3 ABG Total CO2 ABG O2 Saturation Sodium Potassium Chloride Carbon Dioxide BUN Creatinine Glucose POC Glucose (mg/dL) 161 H 157 H 111 H Calcium Magnesium AST ALT Lactate Dehydrogenase LD Isoenzymes LD 2 LD 5 C-Reactive Protein Total Protein Albumin Procalcitonin SARS-CoV-2 (PCR) Crossmatch 10/29/21 10/29/21 10/29/21 03:50 03:50 03:50 WBC RBC 3.23 L Hgb 9.1 L Hct 29.9 L MCHC 30.5 L RDW 16.0 H Neutrophils # Neutrophils # (Manual) Lymphocytes # Monocytes # Metamyelocytes # (Man) Myelocytes # (Manual) PT INR APTT D-Dimer ABG pH ABG pCO2 ABG pO2 ABG HCO3 ABG Total CO2 ABG O2 Saturation Sodium Potassium 2.8 L Chloride Carbon Dioxide 35 H BUN 21 H Creatinine 0.36 L Glucose POC Glucose (mg/dL) Calcium 8.0 L Magnesium AST ALT Lactate Dehydrogenase LD Isoenzymes LD 2 LD 5 C-Reactive Protein Total Protein Albumin Procalcitonin 0.23 H SARS-CoV-2 (PCR) Crossmatch 10/29/21 10/29/21 10/29/21 05:21 11:29 17:51 WBC RBC Hgb Hct MCHC RDW Neutrophils # Neutrophils # (Manual) Lymphocytes # Monocytes # Metamyelocytes # (Man) Myelocytes # (Manual) PT INR APTT D-Dimer ABG pH ABG pCO2 57 H ABG pO2 ABG HCO3 39 H ABG Total CO2 ABG O2 Saturation Sodium Potassium Chloride Carbon Dioxide BUN Creatinine Glucose POC Glucose (mg/dL) 116 H 163 H Calcium Magnesium AST ALT Lactate Dehydrogenase LD Isoenzymes LD 2 LD 5 C-Reactive Protein Total Protein Albumin Procalcitonin SARS-CoV-2 (PCR) Crossmatch 10/29/21 10/30/21 10/30/21 23:48 05:10 05:10 WBC RBC 3.72 L Hgb 10.5 L Hct MCHC 30.6 L RDW 16.1 H Neutrophils # Neutrophils # (Manual) Lymphocytes # Monocytes # Metamyelocytes # (Man) Myelocytes # (Manual) PT INR APTT D-Dimer ABG pH ABG pCO2 ABG pO2 ABG HCO3 ABG Total CO2 ABG O2 Saturation Sodium Potassium 3.1 L Chloride Carbon Dioxide 34 H BUN 18 H Creatinine 0.31 L Glucose POC Glucose (mg/dL) 125 H Calcium Magnesium AST ALT Lactate Dehydrogenase LD Isoenzymes LD 2 LD 5 C-Reactive Protein Total Protein Albumin Procalcitonin SARS-CoV-2 (PCR) Crossmatch 10/30/21 10/30/21 10/30/21 05:36 11:49 17:37 WBC RBC Hgb Hct MCHC RDW Neutrophils # Neutrophils # (Manual) Lymphocytes # Monocytes # Metamyelocytes # (Man) Myelocytes # (Manual) PT INR APTT D-Dimer ABG pH 7.47 H ABG pCO2 51 H ABG pO2 65 L ABG HCO3 37 H ABG Total CO2 39 H ABG O2 Saturation 92.4 L Sodium Potassium Chloride Carbon Dioxide BUN Creatinine Glucose POC Glucose (mg/dL) 158 H 123 H Calcium Magnesium AST ALT Lactate Dehydrogenase LD Isoenzymes LD 2 LD 5 C-Reactive Protein Total Protein Albumin Procalcitonin SARS-CoV-2 (PCR) Crossmatch 10/30/21 10/31/21 10/31/21 23:47 04:30 04:30 WBC RBC 3.24 L Hgb 9.3 L Hct 30.1 L MCHC RDW 15.7 H Neutrophils # Neutrophils # (Manual) Lymphocytes # Monocytes # Metamyelocytes # (Man) Myelocytes # (Manual) PT INR APTT D-Dimer ABG pH ABG pCO2 ABG pO2 ABG HCO3 ABG Total CO2 ABG O2 Saturation Sodium Potassium 2.8 L Chloride Carbon Dioxide 38 H BUN 19 H Creatinine 0.38 L Glucose POC Glucose (mg/dL) 112 H Calcium 8.3 L Magnesium AST ALT Lactate Dehydrogenase LD Isoenzymes LD 2 LD 5 C-Reactive Protein Total Protein Albumin Procalcitonin SARS-CoV-2 (PCR) Crossmatch 10/31/21 10/31/21 10/31/21 05:44 12:27 18:57 WBC RBC Hgb Hct MCHC RDW Neutrophils # Neutrophils # (Manual) Lymphocytes # Monocytes # Metamyelocytes # (Man) Myelocytes # (Manual) PT INR APTT D-Dimer ABG pH ABG pCO2 63 H ABG pO2 122 H ABG HCO3 39 H ABG Total CO2 41 H ABG O2 Saturation 98.9 H Sodium Potassium Chloride Carbon Dioxide BUN Creatinine Glucose POC Glucose (mg/dL) 152 H 115 H Calcium Magnesium AST ALT Lactate Dehydrogenase LD Isoenzymes LD 2 LD 5 C-Reactive Protein Total Protein Albumin Procalcitonin SARS-CoV-2 (PCR) Crossmatch 11/01/21 11/01/21 11/01/21 04:05 04:05 05:50 WBC RBC 3.44 L Hgb 9.3 L Hct 31.5 L MCHC 29.6 L RDW 15.8 H Neutrophils # Neutrophils # (Manual) Lymphocytes # Monocytes # Metamyelocytes # (Man) Myelocytes # (Manual) PT INR APTT D-Dimer ABG pH ABG pCO2 63 H ABG pO2 72 L ABG HCO3 40 H* ABG Total CO2 42 H ABG O2 Saturation Sodium Potassium Chloride Carbon Dioxide 39 H BUN Creatinine 0.39 L Glucose POC Glucose (mg/dL) Calcium Magnesium AST ALT Lactate Dehydrogenase LD Isoenzymes LD 2 LD 5 C-Reactive Protein Total Protein Albumin Procalcitonin SARS-CoV-2 (PCR) Crossmatch 11/01/21 11/01/21 11/02/21 11:20 17:58 01:00 WBC RBC Hgb Hct MCHC RDW Neutrophils # Neutrophils # (Manual) Lymphocytes # Monocytes # Metamyelocytes # (Man) Myelocytes # (Manual) PT INR APTT D-Dimer ABG pH ABG pCO2 ABG pO2 ABG HCO3 ABG Total CO2 ABG O2 Saturation Sodium Potassium Chloride Carbon Dioxide BUN Creatinine Glucose POC Glucose (mg/dL) 149 H 148 H 130 H Calcium Magnesium AST ALT Lactate Dehydrogenase LD Isoenzymes LD 2 LD 5 C-Reactive Protein Total Protein Albumin Procalcitonin SARS-CoV-2 (PCR) Crossmatch 11/02/21 11/02/21 11/02/21 03:29 03:29 05:38 WBC RBC 3.19 L Hgb 8.9 L Hct 29.3 L MCHC 30.3 L RDW 15.9 H Neutrophils # Neutrophils # (Manual) Lymphocytes # Monocytes # Metamyelocytes # (Man) Myelocytes # (Manual) PT INR APTT D-Dimer ABG pH ABG pCO2 67 H ABG pO2 150 H ABG HCO3 39 H ABG Total CO2 41 H ABG O2 Saturation 99.3 H Sodium 136 L Potassium Chloride 97 L Carbon Dioxide 37 H BUN 20 H Creatinine 0.37 L Glucose 110 H POC Glucose (mg/dL) Calcium Magnesium AST ALT Lactate Dehydrogenase LD Isoenzymes LD 2 LD 5 C-Reactive Protein Total Protein Albumin Procalcitonin SARS-CoV-2 (PCR) Crossmatch 11/02/21 11/02/21 11/02/21 06:17 11:22 17:40 WBC RBC Hgb Hct MCHC RDW Neutrophils # Neutrophils # (Manual) Lymphocytes # Monocytes # Metamyelocytes # (Man) Myelocytes # (Manual) PT INR APTT D-Dimer ABG pH ABG pCO2 ABG pO2 ABG HCO3 ABG Total CO2 ABG O2 Saturation Sodium Potassium Chloride Carbon Dioxide BUN Creatinine Glucose POC Glucose (mg/dL) 104 H 146 H 152 H Calcium Magnesium AST ALT Lactate Dehydrogenase LD Isoenzymes LD 2 LD 5 C-Reactive Protein Total Protein Albumin Procalcitonin SARS-CoV-2 (PCR) Crossmatch 11/02/21 11/03/21 11/03/21 23:36 04:35 04:35 WBC RBC 3.37 L Hgb 9.3 L Hct 30.9 L MCHC 30.2 L RDW 16.2 H Neutrophils # Neutrophils # (Manual) Lymphocytes # Monocytes # Metamyelocytes # (Man) Myelocytes # (Manual) PT INR APTT D-Dimer ABG pH ABG pCO2 ABG pO2 ABG HCO3 ABG Total CO2 ABG O2 Saturation Sodium Potassium 3.3 L Chloride Carbon Dioxide 39 H BUN 19 H Creatinine 0.30 L Glucose POC Glucose (mg/dL) 123 H Calcium Magnesium AST ALT Lactate Dehydrogenase LD Isoenzymes LD 2 LD 5 C-Reactive Protein Total Protein Albumin Procalcitonin SARS-CoV-2 (PCR) Crossmatch 11/03/21 11/03/21 11/03/21 05:11 05:42 11:20 WBC RBC Hgb Hct MCHC RDW Neutrophils # Neutrophils # (Manual) Lymphocytes # Monocytes # Metamyelocytes # (Man) Myelocytes # (Manual) PT INR APTT D-Dimer ABG pH ABG pCO2 60 H ABG pO2 77 L ABG HCO3 42 H* ABG Total CO2 44 H ABG O2 Saturation Sodium Potassium Chloride Carbon Dioxide BUN Creatinine Glucose POC Glucose (mg/dL) 105 H 214 H Calcium Magnesium AST ALT Lactate Dehydrogenase LD Isoenzymes LD 2 LD 5 C-Reactive Protein Total Protein Albumin Procalcitonin SARS-CoV-2 (PCR) Crossmatch 11/03/21 11/03/21 11/04/21 18:52 23:32 04:30 WBC RBC 3.18 L Hgb 9.4 L Hct 29.3 L MCHC RDW 16.1 H Neutrophils # Neutrophils # (Manual) Lymphocytes # Monocytes # Metamyelocytes # (Man) Myelocytes # (Manual) PT INR APTT D-Dimer ABG pH ABG pCO2 ABG pO2 ABG HCO3 ABG Total CO2 ABG O2 Saturation Sodium Potassium Chloride Carbon Dioxide BUN Creatinine Glucose POC Glucose (mg/dL) 131 H 109 H Calcium Magnesium AST ALT Lactate Dehydrogenase LD Isoenzymes LD 2 LD 5 C-Reactive Protein Total Protein Albumin Procalcitonin SARS-CoV-2 (PCR) Crossmatch 11/04/21 11/04/21 11/04/21 04:30 04:54 05:22 WBC RBC Hgb Hct MCHC RDW Neutrophils # Neutrophils # (Manual) Lymphocytes # Monocytes # Metamyelocytes # (Man) Myelocytes # (Manual) PT INR APTT D-Dimer ABG pH 7.47 H ABG pCO2 52 H ABG pO2 73 L ABG HCO3 37 H ABG Total CO2 39 H ABG O2 Saturation Sodium Potassium Chloride Carbon Dioxide 36 H BUN 21 H Creatinine 0.33 L Glucose POC Glucose (mg/dL) 102 H Calcium Magnesium AST ALT Lactate Dehydrogenase LD Isoenzymes LD 2 LD 5 C-Reactive Protein Total Protein Albumin Procalcitonin SARS-CoV-2 (PCR) Crossmatch 11/04/21 11/04/21 11/04/21 11:05 11:50 17:34 WBC RBC Hgb Hct MCHC RDW Neutrophils # Neutrophils # (Manual) Lymphocytes # Monocytes # Metamyelocytes # (Man) Myelocytes # (Manual) PT INR APTT D-Dimer ABG pH ABG pCO2 ABG pO2 ABG HCO3 ABG Total CO2 ABG O2 Saturation Sodium Potassium Chloride Carbon Dioxide BUN Creatinine Glucose POC Glucose (mg/dL) 181 H 184 H 165 H Calcium Magnesium AST ALT Lactate Dehydrogenase LD Isoenzymes LD 2 LD 5 C-Reactive Protein Total Protein Albumin Procalcitonin SARS-CoV-2 (PCR) Crossmatch 11/04/21 11/05/21 11/05/21 23:15 04:15 04:15 WBC RBC 3.39 L Hgb 9.3 L Hct 31.5 L MCHC 29.6 L RDW 15.9 H Neutrophils # Neutrophils # (Manual) Lymphocytes # Monocytes # Metamyelocytes # (Man) Myelocytes # (Manual) PT INR APTT D-Dimer ABG pH ABG pCO2 ABG pO2 ABG HCO3 ABG Total CO2 ABG O2 Saturation Sodium Potassium Chloride Carbon Dioxide 36 H BUN 20 H Creatinine 0.34 L Glucose 105 H POC Glucose (mg/dL) 112 H Calcium Magnesium AST ALT Lactate Dehydrogenase LD Isoenzymes LD 2 LD 5 C-Reactive Protein Total Protein Albumin Procalcitonin SARS-CoV-2 (PCR) Crossmatch 11/05/21 11/05/2111/05/22 05:07 05:13 12:00 WBC RBC Hgb Hct MCHC RDW Neutrophils # Neutrophils # (Manual) Lymphocytes # Monocytes # Metamyelocytes # (Man) Myelocytes # (Manual) PT INR APTT D-Dimer ABG pH ABG pCO2 56 H ABG pO2 74 L ABG HCO3 36 H ABG Total CO2 38 H ABG O2 Saturation Sodium Potassium Chloride Carbon Dioxide BUN Creatinine Glucose POC Glucose (mg/dL) 109 H 215 H Calcium Magnesium AST ALT Lactate Dehydrogenase LD Isoenzymes LD 2 LD 5 C-Reactive Protein Total Protein Albumin Procalcitonin SARS-CoV-2 (PCR) Crossmatch 11/05/21 11/05/21 11/06/21 18:55 23:33 04:45 WBC 14.4 H RBC 3.19 L Hgb 9.0 L Hct 29.1 L MCHC 30.8 L RDW 16.1 H Neutrophils # 10.1 H Neutrophils # (Manual) Lymphocytes # Monocytes # Metamyelocytes # (Man) Myelocytes # (Manual) PT INR APTT D-Dimer ABG pH ABG pCO2 ABG pO2 ABG HCO3 ABG Total CO2 ABG O2 Saturation Sodium Potassium Chloride Carbon Dioxide BUN Creatinine Glucose POC Glucose (mg/dL) 150 H 133 H Calcium Magnesium AST ALT Lactate Dehydrogenase LD Isoenzymes LD 2 LD 5 C-Reactive Protein Total Protein Albumin Procalcitonin SARS-CoV-2 (PCR) Crossmatch 11/06/21 11/06/21 11/06/21 04:45 05:30 05:32 WBC RBC Hgb Hct MCHC RDW Neutrophils # Neutrophils # (Manual) Lymphocytes # Monocytes # Metamyelocytes # (Man) Myelocytes # (Manual) PT INR APTT D-Dimer ABG pH 7.50 H ABG pCO2 ABG pO2 57 L* ABG HCO3 35 H ABG Total CO2 36 H ABG O2 Saturation 91.1 L Sodium Potassium Chloride Carbon Dioxide 34 H BUN 23 H Creatinine 0.28 L Glucose 103 H POC Glucose (mg/dL) 112 H Calcium Magnesium AST ALT Lactate Dehydrogenase LD Isoenzymes LD 2 LD 5 C-Reactive Protein Total Protein Albumin Procalcitonin SARS-CoV-2 (PCR) Crossmatch 11/06/21 11/06/21 11/06/21 11:52 17:51 23:53 WBC RBC Hgb Hct MCHC RDW Neutrophils # Neutrophils # (Manual) Lymphocytes # Monocytes # Metamyelocytes # (Man) Myelocytes # (Manual) PT INR APTT D-Dimer ABG pH ABG pCO2 ABG pO2 ABG HCO3 ABG Total CO2 ABG O2 Saturation Sodium Potassium Chloride Carbon Dioxide BUN Creatinine Glucose POC Glucose (mg/dL) 211 H 190 H 126 H Calcium Magnesium AST ALT Lactate Dehydrogenase LD Isoenzymes LD 2 LD 5 C-Reactive Protein Total Protein Albumin Procalcitonin SARS-CoV-2 (PCR) Crossmatch 11/07/21 11/07/21 11/07/21 04:40 04:40 05:28 WBC 16.2 H RBC 3.26 L Hgb 9.0 L Hct 29.7 L MCHC 30.2 L RDW 16.2 H Neutrophils # 12.0 H Neutrophils # (Manual) Lymphocytes # Monocytes # Metamyelocytes # (Man) Myelocytes # (Manual) PT INR APTT D-Dimer ABG pH 7.50 H ABG pCO2 ABG pO2 73 L ABG HCO3 32 H ABG Total CO2 33 H ABG O2 Saturation Sodium Potassium 3.4 L Chloride 111 H Carbon Dioxide BUN 18 H Creatinine 0.30 L Glucose 106 H POC Glucose (mg/dL) Calcium 8.3 L Magnesium AST ALT Lactate Dehydrogenase LD Isoenzymes LD 2 LD 5 C-Reactive Protein Total Protein Albumin Procalcitonin SARS-CoV-2 (PCR) Crossmatch 11/07/21 11/07/21 11/07/21 05:42 11:46 18:28 WBC RBC Hgb Hct MCHC RDW Neutrophils # Neutrophils # (Manual) Lymphocytes # Monocytes # Metamyelocytes # (Man) Myelocytes # (Manual) PT INR APTT D-Dimer ABG pH ABG pCO2 ABG pO2 ABG HCO3 ABG Total CO2 ABG O2 Saturation Sodium Potassium Chloride Carbon Dioxide BUN Creatinine Glucose POC Glucose (mg/dL) 125 H 202 H 213 H Calcium Magnesium AST ALT Lactate Dehydrogenase LD Isoenzymes LD 2 LD 5 C-Reactive Protein Total Protein Albumin Procalcitonin SARS-CoV-2 (PCR) Crossmatch 11/08/21 11/08/21 11/08/21 00:38 05:46 06:14 WBC 14.3 H RBC 3.17 L Hgb 9.2 L Hct 29.9 L MCHC 30.8 L RDW 16.2 H Neutrophils # 10.8 H Neutrophils # (Manual) Lymphocytes # Monocytes # Metamyelocytes # (Man) Myelocytes # (Manual) PT INR APTT D-Dimer ABG pH ABG pCO2 47 H ABG pO2 75 L ABG HCO3 31 H ABG Total CO2 33 H ABG O2 Saturation Sodium Potassium Chloride Carbon Dioxide BUN Creatinine Glucose POC Glucose (mg/dL) 150 H Calcium Magnesium AST ALT Lactate Dehydrogenase LD Isoenzymes LD 2 LD 5 C-Reactive Protein Total Protein Albumin Procalcitonin SARS-CoV-2 (PCR) Crossmatch 11/08/21 11/08/21 11/08/21 06:14 06:17 09:50 WBC RBC Hgb Hct MCHC RDW Neutrophils # Neutrophils # (Manual) Lymphocytes # Monocytes # Metamyelocytes # (Man) Myelocytes # (Manual) PT INR APTT D-Dimer ABG pH ABG pCO2 ABG pO2 ABG HCO3 ABG Total CO2 ABG O2 Saturation Sodium Potassium Chloride 110 H Carbon Dioxide BUN 18 H Creatinine 0.25 L Glucose 115 H POC Glucose (mg/dL) 113 H 138 H Calcium Magnesium AST ALT Lactate Dehydrogenase LD Isoenzymes LD 2 LD 5 C-Reactive Protein Total Protein Albumin Procalcitonin SARS-CoV-2 (PCR) Crossmatch 11/08/21 11:40 WBC RBC Hgb Hct MCHC RDW Neutrophils # Neutrophils # (Manual) Lymphocytes # Monocytes # Metamyelocytes # (Man) Myelocytes # (Manual) PT INR APTT D-Dimer ABG pH ABG pCO2 ABG pO2 ABG HCO3 ABG Total CO2 ABG O2 Saturation Sodium Potassium Chloride Carbon Dioxide BUN Creatinine Glucose POC Glucose (mg/dL) 174 H Calcium Magnesium AST ALT Lactate Dehydrogenase LD Isoenzymes LD 2 LD 5 C-Reactive Protein Total Protein Albumin Procalcitonin SARS-CoV-2 (PCR) Crossmatch Assessment and Plan Assessment: * Generalized weakness, 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 Examination shows very minimal finger wiggling on the right, but nothing on the left. Suspect part of myopathy/neuropathy with a relatively slightly preserved muscle functioning and the right side. No clearcut evidence of CVA. Her face is symmetric, and her comprehension is intact. * Encephalopathy, probably toxic metabolic. Also related to medication. Patient on Seroquel 50 mg twice a day. * Ventilator-dependent respiratory failure * Status post tracheostomy and PEG placement * Status post Covid-19 pneumonia * Pneumothorax * Obesity * DVT left leg, currently on anticoagulation with Eliquis. Plan: * Patient's examination is relatively nonfocal. * CT head showed no acute process. * We will check carotid Doppler to rule out stenosis. * Patient currently on Seroquel 50 mg twice a day and she is very somnolent. We will decrease Seroquel to 25 mg at bedtime. May increase the dose if there is any agitation. * We will observe clinically. * Neurology will follow. * Thank you for the consult.
--- NOTE | 2021-11-08 14:10 | XR ---
EXAMINATION TYPE: XR chest 1V DATE OF EXAM: 11/08/2021 COMPARISON: 11/08/2021 HISTORY: Chest tube TECHNIQUE: Single frontal view of the chest is obtained. FINDINGS: There are multiple right-sided chest tubes with interval reduction in size of the pneumoth orax with a persistent approximately 5-10% apical pneumothorax. Diffuse interstitial pattern is seen bilaterally with bilateral subsegmental areas of consolidation and small effusion. Subcutaneous emphy sema noted on the right. Tracheostomy tube similar in position and there is a stable appearing right- sided PICC line. IMPRESSION: 1. Interval reduction in size of the pneumothorax now measuring 5-10%. 2. Diffuse subcutaneous edema and diffuse bilateral airspace disease stable from prior exam.
--- NOTE | 2021-11-08 14:14 | P.PCN ---
Date of Procedure: 11/08/21 Preoperative Diagnosis: COVID 19 Infection Postoperative Diagnosis: Same Procedure(s) Performed: Right sided tube thoracostomy Anesthesia: local Surgeon: Al Gunn Access Control Specialist #1: Selma Jose Estimated Blood Loss (ml): 5 Condition: stable Disposition: ICU Indications for Procedure: This patient is a 61 year-old male recovering from COVID 19 infection. Despite two good chest tubes the patient continues to have an apical and lateral ptx. She now requires a chest tube to this area. Operative Findings: Continuous air leak after chest tube placement Description of Procedure: The patients right chest was prepped and draped in the usual sterile fashion. 2% lidocaine was infiltrated into the dermis and intercostal space. A incision was made. The pleural cavity was entered above the 3rd rib bluntly. A 24F chest tube was inserted, sutured to the skin and connected to suction with a continuous air leak. CXR confirmed placement.
[2021-11-08] MEDS ORDERED: QUEtiapine 25 MG TAB PO SCH ×2 (15:30→21:00)
[2021-11-08 17:06] LABS: Glucose,Whole Blood 240 mg/dL (75-99)
--- NOTE | 2021-11-08 18:27 | P.PN ---
Subjective This is a 61-year-old female who was recently admitted with acute COVID-19 pneumonia with acute COVID-19 bilateral interstitial pneumonia and also with transaminitis and being closely monitored. Patient remains in the ICU and currently intubated and sedated with an FiO2 of 70% and PEEP is 18. 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 Patient did have a venous Doppler study done recently which showed left leg DVT and patient is maintained on Eliquis will continue. Patient also continues on empiric antibiotics and awaiting for sputum culture finalized. Patient was started on IV cefepime and will continue. Patient is also continued on oral dexamethasone along with vitamin and zinc supplements and will continue. Patient with some mild volume overload and given a dose of IV L asix push today. 11/03/2021 Patient is seen in follow-up this morning and continues to be closely monitored in the ICU with multiple medical consultations following. Per nursing staff working on weaning sedation and is currently off propofol to assess and no responses noted and patient is not following commands. FiO2 titrated down to 45% with a PEEP of 14 and currently on Precedex for hypertension. Chest xray shows stable scattered interstitial and alveolar infiltrates throughout both lung patterson that persist and are unchanged. Potassium is low at 3.3 and will replace per protocol and recommend repeat labs. 11/04/2021 Patient is seen and evaluated today and continues to be in critical condition. Continued right chest tubes x2 and chest xray today shows some increase in size of the pneumothorax on the right. Patient is off sedation since yesterday and does not respond to commands only painful stimuli. CT brain ordered and pending. Patient currently on precidex and having multiple issues with blood pressure. Code status was changed to no code by family today. Patient continues on vent and FI02 is 50% with a peep of 14. Overall prognosis is extremely poor and guarded. 11/05/2021 Patient continues in the ICU being closely monitored. Fi02 is 50% with a peep of 14. Patient also continues with 2 right side chest tubes with chest xray showing possible slight improvement in the size of right side pneumothorax and otherwise stable chest. Patient continues on eliquis along with oral prednisone and vitamin and zinc supplements. Patient is off propofol and not following command s. CT brain was negative yesterday. 11/06/2021 Patient with bilateral pneumonia and acute hypoxic respiratory failure requiring intubation and mechanical ventilation with pulmonary/critical care team following him closely and help with vent management. Patient has prolonged course in the hospital and intensive care unit. And his courses marked by several complications including bilateral pneumothoraces status post chest tubes, more on the right side. New-onset A. 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 His condition remains critical. Distal hypoxic requiring high FiO2 50%, his blood pressure is borderline 80/53, he had no fever today but yesterday his temperature was found and draped. He is tachypneic and 28. He is kept on Eliquis 5 mg, prednisone 60 mg, normal saline 50 mg as well as vitamin C, D and zinc. He is also on Protonix and Cardizem 30 mg 4 times a day 11/07/2021 Patient remains intubated on mechanical ventilation with pulmonary/critical care team following her closely and help with her ICU management and vent management. Patient still tachypneic, tachycardic and low-grade fever of 100.2. Blood pr essure is a stable on pressors were discontinued. WBC is 16.2, hemoglobin 9. She has sputum culture showing Corynebacterium but repeat sputum culture is pending. Chest x-ray showing small right pneumothorax and similar diffuse bilateral ground glass opacity. She remains on Eliquis 5 mg, prednisone, normal saline at 50 and vitamins. Antibiotics were discontinued by pulmonary/critical care team and they recommended to keep monitoring while she is off antibiotics. She has DO NOT RESUSCITATE order. Family 11/08/2021 Patient is still in critical condition in the ICU with pulmonary/critical care t eam followed closely and help with vent management and critical care management. Patient was noticed to be still weak all over and drowsy, her weakness was thought to be more on the left side, therefore neurological consult was obtained patient was diagnosed with critical illness myopathy/neuropathy plus toxic/metabolic encephalopathy partly related to medication therefore surgical dose lowered 50 down to 25 twice a day. Patient with low-grade fever, FiO2 of 50%, blood pressure is stable, slightly tachycardic and tachypneic. Labs show leukocytosis 14.3 and hemoglobin 9.2. Chest x-ray showing decreased pneumothorax 5-10% after placement of chest tube on the right side by cardiothoracic surgery team consulted today also there is diffuse subcutaneous edema which looks stable. Patient remains on Eliquis 5 mg, prednisone 60 mg, vitamins on normal saline at 50 mL per hour Objective - Vital Signs Vital signs: Vital Signs Temp 98.0 F 11/08/21 08:00 Pulse 97 11/08/21 10:00 Resp 37 H 11/08/21 10:00 BP 96/50 11/08/21 10:00 Pulse Ox 91 L 11/08/21 10:00 Intake & Output 11/07/21 11/08/21 11/08/21 18:59 06:59 18:59 Intake Total 1155 1338 318 Output Total 1533 985 400 Balance -378 353 -82 Weight 92 kg Intake: IV 559 650 150 Sodium Chloride 0.9% 1, 550 650 150 000 ml @ 50 mls/hr IV . [facility]H [facility] Rx#:[id number] pressure bag 9 Tube Feeding 506 598 138 Other 90 90 30 Output: Chest Tube Drainage 18 35 Chest Tube Right 10 30 Chest Tube Right Pleural 8 5 Urine 1515 950 400 Other: Voiding Method Indwelling Catheter Indwelling Catheter # Bowel Movements 1 ABP, PAP, CO, CI - Last Documented Arterial Blood Pressure 120/111 - Exam -GENERAL: The patient is intubated status post tracheostomy. Patient generally weak HEENT: Pupils are round and equally reacting to light. EOMI. No scleral icterus. No conjunctival pallor. Normocephalic, atraumatic. No pharyngeal erythema. No thyromegaly. CARDIOVASCULAR: S1 and S2 present. No murmurs, rubs, or gallops. -PULMONARY: Bilateral decreased breath sounds with bilateral crepitation ABDOMEN: Soft, nontender, nondistended, normoactive bowel sounds. No palpable organomegaly. MUSCULOSKELETAL: No joint swelling or deformity. EXTREMITIES: No cyanosis, clubbing, or pedal edema. -NEUROLOGICAL: Gross neurological examination did not reveal any focal deficits. General awake, more on the left side SKIN: No rashes. no petechiae. - Labs CBC & Chem 7: 11/08/21 06:14 11/08/21 06:14 Labs: Abnormal Lab Results - Last 24 Hours (Table) 11/07/21 11/07/21 11/08/21 Range/Units 11:46 18:28 00:38 WBC (3.8-10.6) k/uL RBC (3.80-5.40) m/uL Hgb (11.4-16.0) gm/dL Hct (34.0-46.0) % MCHC (31.0-37.0) g/dL RDW (11.5-15.5) % Neutrophils # (1.3-7.7) k/uL ABG pCO2 (35-45) mmHg ABG pO2 (83-108) mmHg ABG HCO3 (21-25) mmol/L ABG Total CO2 (19-24) mmol/L Chloride (98-107) mmol/L BUN (7-17) mg/dL Creatinine (0.52-1.04) mg/dL Glucose (74-99) mg/dL POC Glucose (mg/dL) 202 H 213 H 150 H (75-99) mg/dL 11/08/21 11/08/21 11/08/21 Range/Units 05:46 06:14 06:14 WBC 14.3 H (3.8-10.6) k/uL RBC 3.17 L (3.80-5.40) m/uL Hgb 9.2 L (11.4-16.0) gm/dL Hct 29.9 L (34.0-46.0) % MCHC 30.8 L (31.0-37.0) g/dL RDW 16.2 H (11.5-15.5) % Neutrophils # 10.8 H (1.3-7.7) k/uL ABG pCO2 47 H (35-45) mmHg ABG pO2 75 L (83-108) mmHg ABG HCO3 31 H (21-25) mmol/L ABG Total CO2 33 H (19-24) mmol/L Chloride 110 H (98-107) mmol/L BUN 18 H (7-17) mg/dL Creatinine 0.25 L (0.52-1.04) mg/dL Glucose 115 H (74-99) mg/dL POC Glucose (mg/dL) (75-99) mg/dL 11/08/21 11/08/21 Range/Units 06:17 09:50 WBC (3.8-10.6) k/uL RBC (3.80-5.40) m/uL Hgb (11.4-16.0) gm/dL Hct (34.0-46.0) % MCHC (31.0-37.0) g/dL RDW (11.5-15.5) % Neutrophils # (1.3-7.7) k/uL ABG pCO2 (35-45) mmHg ABG pO2 (83-108) mmHg ABG HCO3 (21-25) mmol/L ABG Total CO2 (19-24) mmol/L Chloride (98-107) mmol/L BUN (7-17) mg/dL Creatinine (0.52-1.04) mg/dL Glucose (74-99) mg/dL POC Glucose (mg/dL) 113 H 138 H (75-99) mg/dL Microbiology - Last 24 Hours (Table) 11/07/21 11:41 Gram Stain - Preliminary Sputum Sputum Culture - Preliminary 11/07/21 11:53 Catheter Tip Culture - Preliminary Catheter Tip 11/07/21 11:53 Urine Culture - Preliminary Urine,Catheterized Assessment and Plan Assessment: Acute COVID-19 infection with acute COVID-19 bilateral interstitial pneumonia with hypoxic hypercarbic respiratory failure on mechanical vent status post trach and peg tube placement on 10/14/2021 Worsening right side pneumothorax status post chest tube placement and thoravent removal on 10/29/2021 Right pneumothorax status post chest tube placement Critical illness myopathy and neuropathy Atrial fibrillation, new onset, currently rate controlled on metoprolol and cardizem Non-sustained ventricular tachycardia, currently sinus Acute left leg deep vein thrombosis Primary hypercoagulable state and factor V deficiency Obesity with a body mass index of 36.0 DVT prophylaxis: on Eliquis No code Plan: This is a pleasant 61 years old female with covert pneumonia, hypoxia, DVT and A. fib. Continue with multiple vitamins and prednisone 60 mg Continue with gentle hydration normal saline 50 ml per hour Continue with the [facility] cardiology and pulmonary/critical care team on the case. Neurology consult, vascular surgery consult Labs and medication were reviewed.. Continue same treatment. Continue with symptomatic treatment. Resume home medication. Monitor lytes and vitals. DVT and GI prophylaxis. Further recommendations as per clinical course of the patient DVT prophylaxis: Eliquis GI Prophylaxis: Ppi Prognosis is extremely guarded
[2021-11-08] MEDS: SODIUM CHLORIDE 0.9% 1,000 ML IV SCH ×3 (21:32→21:34)
[2021-11-08 23:59] LABS: Glucose,Whole Blood 142 mg/dL (75-99)
[2021-11-09 00:14] LABS: Glucose,Whole Blood 159 mg/dL (75-99)
[2021-11-09] MEDS: INSULIN ASPART (NovoLOG) 100 UNIT/ML VIAL SQ SCH ×4 (00:28→18:13)
[2021-11-09] MEDS: HYDROmorphone 1 MG/ML 1 ML SYRINGE IVP PRN ×8 (01:41→19:51)
[2021-11-09 05:50] LABS: Glucose,Whole Blood 117 mg/dL (75-99)
[2021-11-09 06:36] LABS: Anisocytosis Slight; Basophils # (A) 0.1 k/uL (0-0.2); Basophils % (A) 0 %; Eosinophils # (A) 0.1 k/uL (0-0.7); Eosinophils % (A) 1 %; HCT 27.7 % (34.0-46.0); HGB 8.2 gm/dL (11.4-16.0); Hypochromasia Marked; Lymphocytes # (A) 2.8 k/uL (1.0-4.8); Lymphocytes % (A) 20 %; MCH 27.6 pg (25.0-35.0); MCHC 29.6 g/dL (31.0-37.0); MCV 93.2 fL (80.0-100.0); Mean Platelet Volume 9.2; Monocytes # (A) 0.8 k/uL (0-1.0); Monocytes % (A) 5 %; Neutrophils # (A) 10.3 k/uL (1.3-7.7); Neutrophils % (A) 72 %; Platelet Count 355 k/uL (150-450); RBC 2.97 m/uL (3.80-5.40); RDW 16.6 % (11.5-15.5); WBC 14.3 k/uL (3.8-10.6)
[2021-11-09 06:57] LABS: African American GFR (CKD) >90 (>60 ml/min/1.73 sqM); Anion Gap 3 mmol/L; Blood Urea Nitrogen 20 mg/dL (7-17); Calcium 8.7 mg/dL (8.4-10.2); Carbon Dioxide 28 mmol/L (22-30); Chloride 108 mmol/L (98-107); Glucose 105 mg/dL (74-99); Non-African American GFR(CKD) >90 (>60 ml/min/1.73 sqM); Sodium 139 mmol/L (137-145)
[2021-11-09] MEDS: PANTOPRAZOLE 40 MG/10 ML VIAL IV SCH (08:50)
[2021-11-09] MEDS: DILTIAZEM ORAL 30 MG TAB PO SCH ×4 (08:52→20:17)
[2021-11-09] MEDS: ASCORBIC ACID 500 MG TAB PO SCH ×2 (08:52→20:17)
[2021-11-09] MEDS: amLODIPine 10 MG TAB PO SCH (08:53)
[2021-11-09] MEDS: ZINC SULFATE 220 MG CAP PO SCH (08:53)
[2021-11-09] MEDS: predniSONE 20 MG TAB PO SCH (08:53)
[2021-11-09] MEDS: NYSTATIN 100,000 UNIT/ML SUSP 500,000 UNIT/5 ML CUP PO SCH ×4 (08:54→20:17)
[2021-11-09] MEDS: LOSARTAN 25 MG TAB PO SCH (08:54)
--- NOTE | 2021-11-09 09:00 | XR ---
EXAMINATION TYPE: XR chest 1V DATE OF EXAM: 11/09/2021 COMPARISON: 11/08/2021 HISTORY: 61-year-old female COVID pneumonia TECHNIQUE: Single frontal view of the chest is obtained. FINDINGS: Tracheostomy cannula. Right PICC tip cavoatrial junction. 3 right-sided chest tubes are demonstrated. There is a small right-sided pneumothorax again seen, overall stable measuring 8 mm at the apex. Pos sibly slightly larger laterally now measuring 4 mm. Diffuse interstitial and groundglass changes persist. Subcutaneous emphysema persists along the right chest wall. IMPRESSION: 1. 3 right-sided chest tubes. Small right-sided pneumothorax redemonstrated. Apical component similar at 8 mm. Lateral component may be minimally larger at 4 mm. 2. Continued diffuse interstitial groundglass changes.
[2021-11-09] MEDS: POTASSIUM BICARBONATE/CIT AC 20 MEQ TABLET.EFF PO SCH ×3 (09:04→20:17)
[2021-11-09] MEDS: METOPROLOL TARTRATE 50 MG TAB PO SCH ×2 (09:04→20:17)
[2021-11-09] MEDS: APIXABAN 5 MG TAB PO SCH ×2 (10:03→20:17)
[2021-11-09] MEDS ORDERED: QUEtiapine 50 MG TAB PO STA (10:06)
--- NOTE | 2021-11-09 10:58 | P.PN ---
Subjective Progress Note Date: 11/09/21 Principal diagnosis: Continued right-sided pneumothorax despite chest tube placement, acute hypoxic respiratory failure requiring mechanical ventilation, covid pneumonia on admissi on, remains unvaccinated, leukocytosis with low-grade fever, acute DVT to left lower extremity this admission on Eliquis, with history of prior DVT, new diagnosis of paroxysmal atrial fibrillation this admission. Previous medical history of factor V leiden disorder on Coumadin at home The patient was seen and examined this morning laying in bed in the intensive care unit, still being mechanically ventilated. She does open her eyes, nods and shakes head appropriately to command, she does squeeze with her right hand and wiggle her right toes but still no movement on the left side. Anterior chest tube placed yesterday continues to show continuous air leak, both lateral chest tubes continue to have no air leak present. Ventilator changes made this morning by Dr. Ramirez. Patient's daughter was updated this morning regarding chest tube management. Objective - Vital Signs Vital signs: Vital Signs Temp 98.3 F 11/09/21 09:00 Pulse 95 11/09/21 09:00 Resp 26 H 11/09/21 09:00 BP 126/64 11/09/21 09:00 Pulse Ox 94 L 11/09/21 09:00 Intake & Output 11/08/21 11/09/21 11/09/21 18:59 06:59 18:59 Intake Total 1146 1278 222 Output Total 1055 934 65 Balance 91 344 157 Weight 92 kg 92.2 kg Intake: IV 550 650 100 Sodium Chloride 0.9% 1, 550 650 100 000 ml @ 50 mls/hr IV . Q20H [facility] Rx#:[id number] Tube Feeding 506 598 92 Other 90 30 30 Output: Chest Tube Drainage 109 10 Chest Tube Right 10 0 Chest Tube Right Pleural 8 0 Chest Tube Right Upper 91 10 Anterior Chest Urine 1055 825 55 Other: Voiding Method Indwelling Catheter Indwelling Catheter # Bowel Movements 1 ABP, PAP, CO, CI - Last Documented Arterial Blood Pressure 120/111 - Exam CONSTITUTIONAL: Appears comfortable, cooperative, no acute distress RESPIRATORY: Lungs sounds diminished bilaterally. Respirations even, nonlabored. Currently on mechanical ventilation through tracheostomy, ventilator settings this morning were FiO2 50%, tidal volume 400, respiratory rate 26, PT 14. CARDIOVASCULAR: S1, S2 present. Regular rate and rhythm, sinus rhythm on telemetry. Palpable peripheral pulses bilaterally. Left lower extremity edema present GASTROINTESTINAL: Abdomen soft, nontender, nondistended. Active bowel sounds present 4 quadrants. Tolerating tube feedings through PEG at 46 mL/h GENITOURINARY: Golden present draining clear yellow urine INTEGUMENTARY: Skin is warm and dry NEUROLOGIC: Opens eyes to command, shakes and nods head, squeezes with the right hand and wiggles right toes, no movement on the left side INVASIVE LINES AND TUBES: Right-sided double-lumen PICC present. Right-sided pleural chest tubes present 3 to wall suction, no air leaks present in either lateral chest tube, continuous air leak present in anterior chest tube - Allied health notes Allied health notes reviewed: nursing - Labs CBC & Chem 7: 11/09/21 05:49 11/09/21 05:49 Labs: Abnormal Lab Results - Last 24 Hours (Table) 11/08/21 11/08/21 11/08/21 Range/Units 09:50 11:40 17:05 WBC (3.8-10.6) k/uL RBC (3.80-5.40) m/uL Hgb (11.4-16.0) gm/dL Hct (34.0-46.0) % MCHC (31.0-37.0) g/dL RDW (11.5-15.5) % Neutrophils # (1.3-7.7) k/uL Chloride (98-107) mmol/L BUN (7-17) mg/dL Creatinine (0.52-1.04) mg/dL Glucose (74-99) mg/dL POC Glucose (mg/dL) 138 H 174 H 240 H (75-99) mg/dL 11/08/21 11/09/21 11/09/21 Range/Units 23:57 00:13 05:48 WBC (3.8-10.6) k/uL RBC (3.80-5.40) m/uL Hgb (11.4-16.0) gm/dL Hct (34.0-46.0) % MCHC (31.0-37.0) g/dL RDW (11.5-15.5) % Neutrophils # (1.3-7.7) k/uL Chloride (98-107) mmol/L BUN (7-17) mg/dL Creatinine (0.52-1.04) mg/dL Glucose (74-99) mg/dL POC Glucose (mg/dL) 142 H 159 H 117 H (75-99) mg/dL 11/09/21 11/09/21 Range/Units 05:49 05:49 WBC 14.3 H (3.8-10.6) k/uL RBC 2.97 L (3.80-5.40) m/uL Hgb 8.2 L (11.4-16.0) gm/dL Hct 27.7 L (34.0-46.0) % MCHC 29.6 L (31.0-37.0) g/dL RDW 16.6 H (11.5-15.5) % Neutrophils # 10.3 H (1.3-7.7) k/uL Chloride 108 H (98-107) mmol/L BUN 20 H (7-17) mg/dL Creatinine 0.29 L (0.52-1.04) mg/dL Glucose 105 H (74-99) mg/dL POC Glucose (mg/dL) (75-99) mg/dL Microbiology - Last 24 Hours (Table) 11/07/21 11:35 Blood Culture - Preliminary Blood No Growth after 24 hours 11/07/21 11:53 Urine Culture - Final Urine,Catheterized 11/07/21 10:20 Blood Culture - Preliminary Blood No Growth after 24 hours 11/07/21 11:53 Catheter Tip Culture - Preliminary Catheter Tip - Imaging and Cardiology Chest x-ray: report reviewed, image reviewed Assessment and Plan Assessment: 1. Continued right-sided pneumothorax despite chest tube placement, status post anterior chest tube placement by Dr. Gunn 2. Acute hypoxic respiratory failure requiring mechanical ventilation 3. Covid pneumonia on admission, remains on vaccinated 4. Leukocytosis with low-grade fever 5. Acute DVT to left lower extremity this admission on Eliquis, with history of prior DVT 6. New diagnosis of paroxysmal atrial fibrillation this admission, currently in sinus 7. History of factor V leiden disorder on Coumadin at home 8. Multiple other comorbidities Plan: 1. Continue anterior chest tube to continuous wall suction, monitor for resolution of air leak 2. Will discontinue one lateral chest tube today, likely will discontinue other lateral chest tube tomorrow 3. Will monitor daily x-rays 4. Ventilator management per dance therapist 5. Medical management of other comorbidities per primary care 6. More recommendations to follow Time with Patient: Greater than 30
[2021-11-09 11:34] LABS: Glucose,Whole Blood 189 mg/dL (75-99)
--- NOTE | 2021-11-09 12:16 | P.PN ---
Subjective Progress Note Date: 11/09/21 Principal diagnosis: Acute hypoxic respiratory failure secondary to COVID-19 pneumonia Reevaluated today on 10/31/2021, patient remains in the ICU intubated mechanically ventilated, sedated, off paralysis, however has been difficult to wean down her sedation to assess fully her mental status. Patient will get extremely agitated on a lower dose of fentanyl or propofol, she desaturates, she becomes very short of breath, and asynchronous with the ventilator. Multiple attempts have been done in the last few days, and they have been unsuccessful nonetheless the patient is now is off paralytics. Yesterday I changed the patient from pressure control to volume control, she is on assist control rate of 26 tidal volume 350 FiO2 of 55% PEEP is 14. ABG earlier on 65% showed a pO2 of 122 pCO2 63 pH of 7.41. Electrolytes are normal except for low potassium of 2.8, being corrected accordingly. Renal profile is normal sodium is normal that is scattered 7.8 hemoglobin is 9.3. Patient remains on fentanyl 2 mcg/kg/m, propofol at 75 mcg/kg/m she is receiving vital Hb at 10 mL per hour. Chest x- ray today showed improvement in her right-sided pneumothorax, nonetheless on physical examination she continues to have some air leak in the newly placed chest tube, and hardly any leak in the old chest tube. The pneumothorax seems to be much smaller today compared to the last few days. As I was finishing my balance in the ICU, patient developed an episode of atrial fibrillation with RVR, and I recommended Cardizem bolus, Cardizem drip, and cardiology was consulted. Reevaluated today on 11/08/2021, patient remains in the ICU, intubated and mechanically ventilated. She is on assist control rate of 26, tidal volume is 400, FiO2 50%, PEEP of 14. Patient is off sedation, she is only on Seroquel 50 mg twice a day, she is off all the drips including propofol, fentanyl, and Nimbex. Her IV fluids at 50 mL per hour. Patient is awake, follows simple instructions however she seems to be completely paralyzed on the left side. Hence I'm recommending today a neurology evaluation, and a CT of the brain without contrast. Her labs today were all reviewed, ABG showed a pO2 of 75 pCO2 47 pH of 7.43, WBC count is 14.3 hemoglobin is 9.2. Lites are normal renal profile is normal. Patient remains on enteral feeding, and she remains on Eliquis because of her history of DVT and pulmonary embolism. Patient is also on amlodipine 10 mg daily, she remains remains on the COVID-19 cocktail. On Seroquel at 50 mg by mouth twice a day, and prednisone at 60 mg daily however I will cut down to 40 mg daily. Reevaluated today on 11/09/2021, patient remains in the ICU, intubated and mechanically ventilated. Patient is on assist control mode of mechanical ventilation, today I made sure that the patient is on volume control with a leak. Compensation. Rate is set at 300 FiO2 is 50% PEEP is down to 12 FiO2 50% and tidal volume is 400. Patient is having some leak from the chest tube, and possibly from leak in the tracheostomy. Hence we added leak compensation to the volume control mode of mechanical ventilation making up for the volume loss. Patient seems to be more comfortable on this mode, however I had to give the patient 1 dose of Dilaudid this morning calm her down as she was not getting the upper volumes and she was getting more and more anxious and tachycardic and tachypneic. Chest x-ray continues to show a small right-sided apical pneumothorax in spite of the fact the patient has not [address] The new chest tube is showing air leak, but the other 2 chest tubes are not showing any air leak. ABG today was relatively unremarkable, hence minimal adjustment was made on the ventilator settings, and the PEEP down is down to 12. Her electrolytes are normal renal profile is normal WBC count is 14.3 hemoglobin is 8.2, chest x-ray shows bilateral interstitial infiltrates, and again a right-sided small pneumothorax. Patient remains on enteral feeding, she is not requiring any propofol at present and she is not on any sedatives, she is on when necessary Dilaudid. I also increased her Seroquel dose to 50 mg twice a day. Objective - Vital Signs Vital signs: Vital Signs Temp 98.3 F 11/09/21 09:00 Pulse 82 11/09/21 11:00 Resp 33 H 11/09/21 11:00 BP 106/51 11/09/21 11:00 Pulse Ox 92 L 11/09/21 11:00 Intake & Output 11/08/21 11/09/2122 18:59 06:59 18:59 Intake Total 1146 1278 414 Output Total 1055 934 265 Balance 91 344 149 Weight 92 kg 92.2 kg Intake: IV 550 650 200 Sodium Chloride 0.9% 1, 550 650 200 000 ml @ 50 mls/hr IV . Q20H [facility] Rx#:[id number] Tube Feeding 506 598 184 Other 90 30 30 Output: Chest Tube Drainage 109 10 Chest Tube Right 10 0 Chest Tube Right Pleural 8 0 Chest Tube Right Upper 91 10 Anterior Chest Urine 1055 825 255 Other: Voiding Method Indwelling Catheter Indwelling Catheter # Bowel Movements 1 ABP, PAP, CO, CI - Last Documented Arterial Blood Pressure 120/111 - Exam Physical Exam: Revealed a 61-year-old female in no distress. Awake, follows simple instructions, however she seems to be paralyzed on the left side cannot move her left upper extremity and her left lower extremity. Head: Atraumatic, normocephalic PEG tube is intact. HEENT:[Neck is supple.] [No neck masses.] [No thyromegaly.] [No JVD.] Chest: [Symmetrical chest expansion crackles and rhonchi at the bases. Right- sided chest tubes are noted. Cardiac Exam: [Distant S1 and S2, no S3 gallop. No murmur. Abdomen: [Soft, nontender, no megaly, no rebound, no guarding, normal bowel sounds.] Extremities: [No clubbing, 2+ bipedal edema, no cyanosis.] Good pulses bilaterally. Neurological Exam: Opens eyes, follows instructions, but cannot move the left side. Patient is generally weak throughout. Psychiatric: Appropriate mood affect and appropriate mental status. However the patient is generally weak Skin: No rashes. - Labs CBC & Chem 7: 11/09/21 05:49 11/09/21 05:49 Labs: Abnormal Lab Results - Last 24 Hours (Table) 11/08/21 11/08/21 11/09/21 Range/Units 17:05 23:57 00:13 WBC (3.8-10.6) k/uL RBC (3.80-5.40) m/uL Hgb (11.4-16.0) gm/dL Hct (34.0-46.0) % MCHC (31.0-37.0) g/dL RDW (11.5-15.5) % Neutrophils # (1.3-7.7) k/uL Chloride (98-107) mmol/L BUN (7-17) mg/dL Creatinine (0.52-1.04) mg/dL Glucose (74-99) mg/dL POC Glucose (mg/dL) 240 H 142 H 159 H (75-99) mg/dL 11/09/21 11/09/21 11/09/21 Range/Units 05:48 05:49 05:49 WBC 14.3 H (3.8-10.6) k/uL RBC 2.97 L (3.80-5.40) m/uL Hgb 8.2 L (11.4-16.0) gm/dL Hct 27.7 L (34.0-46.0) % MCHC 29.6 L (31.0-37.0) g/dL RDW 16.6 H (11.5-15.5) % Neutrophils # 10.3 H (1.3-7.7) k/uL Chloride 108 H (98-107) mmol/L BUN 20 H (7-17) mg/dL Creatinine 0.29 L (0.52-1.04) mg/dL Glucose 105 H (74-99) mg/dL POC Glucose (mg/dL) 117 H (75-99) mg/dL 11/09/21 Range/Units 11:33 WBC (3.8-10.6) k/uL RBC (3.80-5.40) m/uL Hgb (11.4-16.0) gm/dL Hct (34.0-46.0) % MCHC (31.0-37.0) g/dL RDW (11.5-15.5) % Neutrophils # (1.3-7.7) k/uL Chloride (98-107) mmol/L BUN (7-17) mg/dL Creatinine (0.52-1.04) mg/dL Glucose (74-99) mg/dL POC Glucose (mg/dL) 189 H (75-99) mg/dL Microbiology - Last 24 Hours (Table) 11/07/21 11:35 Blood Culture - Preliminary Blood No Growth after 24 hours 11/07/21 11:53 Urine Culture - Final Urine,Catheterized 11/07/21 10:20 Blood Culture - Preliminary Blood No Growth after 24 hours 11/07/21 11:53 Catheter Tip Culture - Preliminary Catheter Tip Assessment and Plan Assessment: Impression: Acute hypoxic respiratory failure secondary to COVID-19 pneumonia and complicated with ARDS. Patient was intubated on 09/25/2021. Status post tracheostomy and PEG tube placement. 10/14/2021. Acute deep vein thrombosis, on Eliquis. History of hypercoagulable state, factor V Leyden mutation. Bilateral pneumothoraces requiring bilateral chest tube placement. However since then the left-sided chest tube was removed, right-sided chest tube had to be placed again by Dr. Harris,I placed a right sided thoravent on 10/25/21, stat us post chest tube placement again on 10/29/2021, and the removal of thoravent on 10/29. Acute COVID-19 pneumonia Subcutaneous emphysema, resolved. Prior history of DVT History of fibromyalgia Degenerative joint disease Mildly elevated liver enzymes secondary to cardona virus infection. Nonsustained ventricular tachycardia, resolved Paroxysmal atrial fibrillation. Being followed by cardiology. Persistent right-sided pneumothorax in spite of [address], hence I'm recommending a thoracic surgery consultation. Left sided weakness and paralysis, hence a neurological consultation was ini tiated, and CT of the brain was ordered. Critical illness polyneuropathy. Secondary to prolonged course of COVID-19 infection and a story failure. Recommendation: Continue ventilatory support. Some vent changes were made today to compensate for the air leak. Continue Seroquel. Dose was increased to 50 mg twice a day. Continue volume control mode of mechanical ventilation.. Continue tracheostomy care. Continue Eliquis Thoracic surgery was done yesterday, and the patient had a third a chest tube placed. Continue nutritional support/enteral feeding Continue GI and DVT prophylaxis, patient is on Protonix Continue COVID-19 cocktail Patient was seen by neurology, and the left-sided weakness was felt to be related to critical illness polyneuropathy, no clear-cut evidence of stroke. Patient is critically ill. Patient is not quite ready for weaning off mechanical ventilation at this point. Critical care time is over 30 minutes. Time with Patient: Greater than 30
[2021-11-09 18:04] LABS: Glucose,Whole Blood 222 mg/dL (75-99)
--- NOTE | 2021-11-09 19:31 | P.PN ---
Subjective This is a 61-year-old female who was recently admitted with acute COVID-19 pneumonia with acute COVID-19 bilateral interstitial pneumonia and also with transaminitis and being closely monitored. Patient remains in the ICU and currently intubated and sedated with an FiO2 of 70% and PEEP is 18. 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 Patient did have a venous Doppler study done recently which showed left leg DVT and patient is maintained on Eliquis will continue. Patient also continues on empiric antibiotics and awaiting for sputum culture finalized. Patient was started on IV cefepime and will continue. Patient is also continued on oral dexamethasone along with vitamin and zinc supplements and will continue. Patient with some mild volume overload and given a dose of IV L asix push today. 11/03/2021 Patient is seen in follow-up this morning and continues to be closely monitored in the ICU with multiple medical consultations following. Per nursing staff working on weaning sedation and is currently off propofol to assess and no responses noted and patient is not following commands. FiO2 titrated down to 45% with a PEEP of 14 and currently on Precedex for hypertension. Chest xray shows stable scattered interstitial and alveolar infiltrates throughout both lung patterson that persist and are unchanged. Potassium is low at 3.3 and will replace per protocol and recommend repeat labs. 11/04/2021 Patient is seen and evaluated today and continues to be in critical condition. Continued right chest tubes x2 and chest xray today shows some increase in size of the pneumothorax on the right. Patient is off sedation since yesterday and does not respond to commands only painful stimuli. CT brain ordered and pending. Patient currently on precidex and having multiple issues with blood pressure. Code status was changed to no code by family today. Patient continues on vent and FI02 is 50% with a peep of 14. Overall prognosis is extremely poor and guarded. 11/05/2021 Patient continues in the ICU being closely monitored. Fi02 is 50% with a peep of 14. Patient also continues with 2 right side chest tubes with chest xray showing possible slight improvement in the size of right side pneumothorax and otherwise stable chest. Patient continues on eliquis along with oral prednisone and vitamin and zinc supplements. Patient is off propofol and not following command s. CT brain was negative yesterday. 11/06/2021 Patient with bilateral pneumonia and acute hypoxic respiratory failure requiring intubation and mechanical ventilation with pulmonary/critical care team following him closely and help with vent management. Patient has prolonged course in the hospital and intensive care unit. And his courses marked by several complications including bilateral pneumothoraces status post chest tubes, more on the right side. New-onset A. 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 His condition remains critical. Distal hypoxic requiring high FiO2 50%, his blood pressure is borderline 80/53, he had no fever today but yesterday his temperature was found and draped. He is tachypneic and 28. He is kept on Eliquis 5 mg, prednisone 60 mg, normal saline 50 mg as well as vitamin C, D and zinc. He is also on Protonix and Cardizem 30 mg 4 times a day 11/07/2021 Patient remains intubated on mechanical ventilation with pulmonary/critical care team following her closely and help with her ICU management and vent management. Patient still tachypneic, tachycardic and low-grade fever of 100.2. Blood pr essure is a stable on pressors were discontinued. WBC is 16.2, hemoglobin 9. She has sputum culture showing Corynebacterium but repeat sputum culture is pending. Chest x-ray showing small right pneumothorax and similar diffuse bilateral ground glass opacity. She remains on Eliquis 5 mg, prednisone, normal saline at 50 and vitamins. Antibiotics were discontinued by pulmonary/critical care team and they recommended to keep monitoring while she is off antibiotics. She has DO NOT RESUSCITATE order. Family 11/08/2021 Patient is still in critical condition in the ICU with pulmonary/critical care t eam followed closely and help with vent management and critical care management. Patient was noticed to be still weak all over and drowsy, her weakness was thought to be more on the left side, therefore neurological consult was obtained patient was diagnosed with critical illness myopathy/neuropathy plus toxic/metabolic encephalopathy partly related to medication therefore surgical dose lowered 50 down to 25 twice a day. Patient with low-grade fever, FiO2 of 50%, blood pressure is stable, slightly tachycardic and tachypneic. Labs show leukocytosis 14.3 and hemoglobin 9.2. Chest x-ray showing decreased pneumothorax 5-10% after placement of chest tube on the right side by cardiothoracic surgery team consulted today also there is diffuse subcutaneous edema which looks stable. Patient remains on Eliquis 5 mg, prednisone 60 mg, vitamins on normal saline at 50 mL per hour 11/09/2021 Patient still on the critical care unit requiring special attention with tracheostomy placed yesterday status post mechanical ventilation with pulmonary/critical care team followed closely and help with vent management. Today patient is afebrile, tachycardia improved still tachypneic blood pressure is stable, FiO2 stable at 50%. Left unstable leukocytosis 14.3, hemoglobin 8.2. Chest x-ray showing 3 chest tubes on the right side with lateral component of the pneumothorax is slightly worse by 4 mm and there is diffuse interstitial and groundglass changes. Remains on Eliquis 5 mg, multiple vitamins, prednisone lowered to 40 mg and still on normal saline at 50 mL/h No sedation trial today Objective - Vital Signs Vital signs: Vital Signs Temp 98.3 F 11/09/21 09:00 Pulse 82 11/09/21 11:00 Resp 33 H 11/09/21 11:00 BP 106/51 11/09/21 11:00 Pulse Ox 92 L 11/09/21 11:00 Intake & Output 11/08/21 11/09/21 11/09/21 18:59 06:59 18:59 Intake Total 1146 1278 414 Output Total 1055 934 265 Balance 91 344 149 Weight 92 kg 92.2 kg Intake: IV 550 650 200 Sodium Chloride 0.9% 1, 550 650 200 000 ml @ 50 mls/hr IV . Q20H [facility] Rx#:[id number] Tube Feeding 506 598 184 Other 90 30 30 Output: Chest Tube Drainage 109 10 Chest Tube Right 10 0 Chest Tube Right Pleural 8 0 Chest Tube Right Upper 91 10 Anterior Chest Urine 1055 825 255 Other: Voiding Method Indwelling Catheter Indwelling Catheter # Bowel Movements 1 ABP, PAP, CO, CI - Last Documented Arterial Blood Pressure 120/111 - Exam -GENERAL: The patient is intubated status post tracheostomy. Patient generally weak HEENT: Pupils are round and equally reacting to light. EOMI. No scleral icterus. No conjunctival pallor. Normocephalic, atraumatic. No pharyngeal erythema. No thyromegaly. CARDIOVASCULAR: S1 and S2 present. No murmurs, rubs, or gallops. -PULMONARY: Bilateral decreased breath sounds with bilateral crepitation ABDOMEN: Soft, nontender, nondistended, normoactive bowel sounds. No palpable organomegaly. MUSCULOSKELETAL: No joint swelling or deformity. EXTREMITIES: No cyanosis, clubbing, or pedal edema. -NEUROLOGICAL: Gross neurological examination did not reveal any focal deficits. General awake, more on the left side SKIN: No rashes. no petechiae. - Labs CBC & Chem 7: 11/09/21 05:49 11/09/21 05:49 Labs: Abnormal Lab Results - Last 24 Hours (Table) 11/08/21 11/08/21 11/08/21 Range/Units 11:40 17:05 23:57 WBC (3.8-10.6) k/uL RBC (3.80-5.40) m/uL Hgb (11.4-16.0) gm/dL Hct (34.0-46.0) % MCHC (31.0-37.0) g/dL RDW (11.5-15.5) % Neutrophils # (1.3-7.7) k/uL Chloride (98-107) mmol/L BUN (7-17) mg/dL Creatinine (0.52-1.04) mg/dL Glucose (74-99) mg/dL POC Glucose (mg/dL) 174 H 240 H 142 H (75-99) mg/dL 11/09/21 11/09/21 11/09/21 Range/Units 00:13 05:48 05:49 WBC 14.3 H (3.8-10.6) k/uL RBC 2.97 L (3.80-5.40) m/uL Hgb 8.2 L (11.4-16.0) gm/dL Hct 27.7 L (34.0-46.0) % MCHC 29.6 L (31.0-37.0) g/dL RDW 16.6 H (11.5-15.5) % Neutrophils # 10.3 H (1.3-7.7) k/uL Chloride (98-107) mmol/L BUN (7-17) mg/dL Creatinine (0.52-1.04) mg/dL Glucose (74-99) mg/dL POC Glucose (mg/dL) 159 H 117 H (75-99) mg/dL 11/09/21 Range/Units 05:49 WBC (3.8-10.6) k/uL RBC (3.80-5.40) m/uL Hgb (11.4-16.0) gm/dL Hct (34.0-46.0) % MCHC (31.0-37.0) g/dL RDW (11.5-15.5) % Neutrophils # (1.3-7.7) k/uL Chloride 108 H (98-107) mmol/L BUN 20 H (7-17) mg/dL Creatinine 0.29 L (0.52-1.04) mg/dL Glucose 105 H (74-99) mg/dL POC Glucose (mg/dL) (75-99) mg/dL Microbiology - Last 24 Hours (Table) 11/07/21 11:35 Blood Culture - Preliminary Blood No Growth after 24 hours 11/07/21 11:53 Urine Culture - Final Urine,Catheterized 11/07/21 10:20 Blood Culture - Preliminary Blood No Growth after 24 hours 11/07/21 11:53 Catheter Tip Culture - Preliminary Catheter Tip Assessment and Plan Assessment: Acute COVID-19 infection with acute COVID-19 bilateral interstitial pneumonia with hypoxic hypercarbic respiratory failure on mechanical vent status post trach and peg tube placement on 10/14/2021 Worsening right side pneumothorax status post chest tube placement and thoravent removal on 10/29/2021 Right pneumothorax status post chest tube placement Critical illness myopathy and neuropathy Atrial fibrillation, new onset, currently rate controlled on metoprolol and cardizem Non-sustained ventricular tachycardia, currently sinus Acute left leg deep vein thrombosis Primary hypercoagulable state and factor V deficiency Obesity with a body mass index of 36.0 DVT prophylaxis: on Eliquis No code Plan: This is a pleasant 61 years old female with covert pneumonia, hypoxia, DVT and A. fib. Continue with multiple vitamins and prednisone 60 mg Continue with gentle hydration normal saline 50 ml per hour Continue with the [facility] cardiology and pulmonary/critical care team on the case. Neurology consult, vascular surgery consult Labs and medication were reviewed.. Continue same treatment. Continue with symptomatic treatment. Resume home medication. Monitor lytes and vitals. DVT and GI prophylaxis. Further recommendations as per clinical course of the patient DVT prophylaxis: Eliquis GI Prophylaxis: Ppi Prognosis is extremely guarded
[2021-11-09] MEDS: QUEtiapine 50 MG TAB PO SCH (20:17)
[2021-11-09 23:30] LABS: Glucose,Whole Blood 130 mg/dL (75-99)
[2021-11-10] MEDS: LORazepam 2 MG/ML INJ IV PRN (00:01)
[2021-11-10] MEDS: INSULIN ASPART (NovoLOG) 100 UNIT/ML VIAL SQ SCH ×4 (00:14→17:35)
[2021-11-10] MEDS: HYDROmorphone 1 MG/ML 1 ML SYRINGE IVP PRN ×7 (02:46→18:39)
[2021-11-10] MEDS: SODIUM CHLORIDE 0.9% 1,000 ML IV SCH ×3 (05:12→20:13)
[2021-11-10 06:02] LABS: ABG Base Excess 8.6 mmol/L; ABG HCO3 33 mmol/L (21-25); ABG Oxygen Saturation 96.3 % (94-97); ABG PCO2 52 mmHg (35-45); ABG PH 7.42 (7.35-7.45); ABG PO2 77 mmHg (83-108); ABG TCO2 35 mmol/L (19-24); Allen Test Performed? Yes
[2021-11-10 06:03] LABS: Glucose,Whole Blood 123 mg/dL (75-99)
[2021-11-10 06:58] LABS: Anisocytosis Slight; Basophils # (A) 0.1 k/uL (0-0.2); Basophils % (A) 0 %; Eosinophils # (A) 0.2 k/uL (0-0.7); Eosinophils % (A) 1 %; HCT 29.9 % (34.0-46.0); HGB 8.9 gm/dL (11.4-16.0); Hypochromasia Marked; Lymphocytes # (A) 3.1 k/uL (1.0-4.8); Lymphocytes % (A) 20 %; MCH 27.9 pg (25.0-35.0); MCHC 29.7 g/dL (31.0-37.0); MCV 93.9 fL (80.0-100.0); Mean Platelet Volume 9.5; Monocytes % (A) 6 %; Neutrophils # (A) 10.8 k/uL (1.3-7.7); Neutrophils % (A) 71 %; Platelet Count 337 k/uL (150-450); RBC 3.19 m/uL (3.80-5.40); RDW 16.2 % (11.5-15.5); WBC 15.2 k/uL (3.8-10.6)
[2021-11-10 07:17] LABS: African American GFR (CKD) >90 (>60 ml/min/1.73 sqM); Anion Gap 2 mmol/L; Blood Urea Nitrogen 27 mg/dL (7-17); Carbon Dioxide 31 mmol/L (22-30); Chloride 106 mmol/L (98-107); Glucose 117 mg/dL (74-99); Non-African American GFR(CKD) >90 (>60 ml/min/1.73 sqM); Potassium 3.9 mmol/L (3.5-5.1); Sodium 139 mmol/L (137-145)
--- NOTE | 2021-11-10 08:12 | P.PN ---
Subjective Progress Note Date: 11/10/21 Principal diagnosis: Continued right-sided pneumothorax despite chest tube placement, acute hypoxic respiratory failure requiring mechanical ventilation, covid pneumonia on admissi on, remains unvaccinated, leukocytosis with low-grade fever, acute DVT to left lower extremity this admission on Eliquis, with history of prior DVT, new diagnosis of paroxysmal atrial fibrillation this admission. Previous medical history of factor V leiden disorder on Coumadin at home The patient was seen and examined this morning laying in bed in the intensive care unit, still being mechanically ventilated. She does open her eyes, follow some commands but still no movement on the left side. Anterior chest tube continues to show continuous air leak, one lateral chest tube removed yesterday, remaining lateral chest tube continues to have no air leak present. Objective - Vital Signs Vital signs: Vital Signs Temp 98.7 F 11/10/21 04:00 Pulse 96 11/10/21 07:00 Resp 33 H 11/10/21 07:00 BP 109/56 11/10/21 07:00 Pulse Ox 92 L 11/10/21 07:00 Intake & Output 11/09/21 11/10/21 11/10/21 18:59 06:59 18:59 Intake Total 1146 1242 96 Output Total 1035 390 30 Balance 111 852 66 Weight 93.3 kg Intake: IV 550 600 50 Sodium Chloride 0.9% 1, 550 600 50 000 ml @ 50 mls/hr IV . Q20H [facility] Rx#:[id number] Tube Feeding 506 552 46 Other 90 90 Output: Chest Tube Drainage 80 25 Chest Tube Right 0 Chest Tube Right Pleural 0 5 Chest Tube Right Upper 80 20 Anterior Chest Urine 955 365 30 Other: Voiding Method Indwelling Catheter Indwelling Catheter ABP, PAP, CO, CI - Last Documented Arterial Blood Pressure 120/111 - Exam CONSTITUTIONAL: Appears comfortable, cooperative, no acute distress RESPIRATORY: Lungs sounds diminished bilaterally. Respirations even, nonlabored. Currently on mechanical ventilation through tracheostomy, ventilator settings this morning were FiO2 50%, tidal volume 400, respiratory rate 30, peep 12. CARDIOVASCULAR: S1, S2 present. Regular rate and rhythm, sinus rhythm on telemetry. Palpable peripheral pulses bilaterally. Left lower extremity edema present GASTROINTESTINAL: Abdomen soft, nontender, nondistended. Active bowel sounds present 4 quadrants. Tolerating tube feedings through PEG at 46 mL/h GENITOURINARY: Golden present draining clear yellow urine INTEGUMENTARY: Skin is warm and dry NEUROLOGIC: Opens eyes, follows some commands, no movement on the left side INVASIVE LINES AND TUBES: Right-sided double-lumen PICC present. Right-sided pleural chest tubes present 2 to wall suction, no air leaks present in lateral chest tube, continuous air leak present in anterior chest tube - Allied health notes Allied health notes reviewed: nursing - Labs CBC & Chem 7: 11/10/21 06:14 11/10/21 06:14 Labs: Abnormal Lab Results - Last 24 Hours (Table) 11/09/21 11/09/21 11/09/21 Range/Units 11:33 18:02 23:28 WBC (3.8-10.6) k/uL RBC (3.80-5.40) m/uL Hgb (11.4-16.0) gm/dL Hct (34.0-46.0) % MCHC (31.0-37.0) g/dL RDW (11.5-15.5) % Neutrophils # (1.3-7.7) k/uL ABG pCO2 (35-45) mmHg ABG pO2 (83-108) mmHg ABG HCO3 (21-25) mmol/L ABG Total CO2 (19-24) mmol/L Carbon Dioxide (22-30) mmol/L BUN (7-17) mg/dL Creatinine (0.52-1.04) mg/dL Glucose (74-99) mg/dL POC Glucose (mg/dL) 189 H 222 H 130 H (75-99) mg/dL 11/10/21 11/10/21 11/10/21 Range/Units 05:42 06:02 06:14 WBC 15.2 H (3.8-10.6) k/uL RBC 3.19 L (3.80-5.40) m/uL Hgb 8.9 L (11.4-16.0) gm/dL Hct 29.9 L (34.0-46.0) % MCHC 29.7 L (31.0-37.0) g/dL RDW 16.2 H (11.5-15.5) % Neutrophils # 10.8 H (1.3-7.7) k/uL ABG pCO2 52 H (35-45) mmHg ABG pO2 77 L (83-108) mmHg ABG HCO3 33 H (21-25) mmol/L ABG Total CO2 35 H (19-24) mmol/L Carbon Dioxide (22-30) mmol/L BUN (7-17) mg/dL Creatinine (0.52-1.04) mg/dL Glucose (74-99) mg/dL POC Glucose (mg/dL) 123 H (75-99) mg/dL 11/10/21 Range/Units 06:14 WBC (3.8-10.6) k/uL RBC (3.80-5.40) m/uL Hgb (11.4-16.0) gm/dL Hct (34.0-46.0) % MCHC (31.0-37.0) g/dL RDW (11.5-15.5) % Neutrophils # (1.3-7.7) k/uL ABG pCO2 (35-45) mmHg ABG pO2 (83-108) mmHg ABG HCO3 (21-25) mmol/L ABG Total CO2 (19-24) mmol/L Carbon Dioxide 31 H (22-30) mmol/L BUN 27 H (7-17) mg/dL Creatinine 0.29 L (0.52-1.04) mg/dL Glucose 117 H (74-99) mg/dL POC Glucose (mg/dL) (75-99) mg/dL Microbiology - Last 24 Hours (Table) 11/07/21 11:41 Gram Stain - Final Sputum Sputum Culture - Final Corynebacterium species 11/07/21 11:53 Catheter Tip Culture - Final Catheter Tip 11/07/21 11:35 Blood Culture - Preliminary Blood No Growth after 48 hours 11/07/21 10:20 Blood Culture - Preliminary Blood No Growth after 48 hours - Imaging and Cardiology Chest x-ray: image reviewed Assessment and Plan Assessment: 1. Continued right-sided pneumothorax despite chest tube placement, status post anterior chest tube placement by Dr. Gunn 2. Acute hypoxic respiratory failure requiring mechanical ventilation 3. Covid pneumonia on admission, remains on vaccinated 4. Leukocytosis with low-grade fever 5. Acute DVT to left lower extremity this admission on Eliquis, with history of prior DVT 6. New diagnosis of paroxysmal atrial fibrillation this admission, currently in sinus 7. History of factor V leiden disorder on Coumadin at home 8. Multiple other comorbidities Plan: 1. Continue anterior chest tube to continuous wall suction, monitor for res olution of air leak 2. Will discontinue lateral chest tube today 3. Will monitor daily x-rays 4. Ventilator management per linker up 5. Medical management of other comorbidities per primary care 6. More recommendations to follow Time with Patient: Greater than 30
[2021-11-10] MEDS: DEXMEDETOMIDINE/0.9% NACL(PMX) 400 MCG in EMPTY BAG 1 BAG IV SCH ×2 (10:13→20:07)
[2021-11-10] MEDS: QUEtiapine 50 MG TAB PO SCH ×2 (10:14→20:09)
[2021-11-10] MEDS: PANTOPRAZOLE 40 MG/10 ML VIAL IV SCH (10:14)
[2021-11-10] MEDS: NYSTATIN 100,000 UNIT/ML SUSP 500,000 UNIT/5 ML CUP PO SCH ×4 (10:14→20:09)
[2021-11-10] MEDS: ZINC SULFATE 220 MG CAP PO SCH (10:14)
[2021-11-10] MEDS: DILTIAZEM ORAL 30 MG TAB PO SCH ×4 (10:14→20:12)
[2021-11-10] MEDS: predniSONE 20 MG TAB PO SCH (10:14)
[2021-11-10] MEDS: LOSARTAN 25 MG TAB PO SCH (10:15)
[2021-11-10] MEDS: ASCORBIC ACID 500 MG TAB PO SCH ×2 (10:15→20:12)
[2021-11-10] MEDS: APIXABAN 5 MG TAB PO SCH ×2 (10:15→20:13)
[2021-11-10] MEDS: amLODIPine 10 MG TAB PO SCH (10:15)
[2021-11-10] MEDS: POTASSIUM BICARBONATE/CIT AC 20 MEQ TABLET.EFF PO SCH ×3 (10:15→20:13)
[2021-11-10] MEDS: METOPROLOL TARTRATE 50 MG TAB PO SCH ×2 (10:16→20:09)
--- NOTE | 2021-11-10 10:27 | P.PN ---
Subjective Progress Note Date: 11/10/21 Principal diagnosis: COVID-19 infection with acute hypoxemic respiratory failure Reevaluated today on 10/31/2021, patient remains in the ICU intubated mechanically ventilated, sedated, off paralysis, however has been difficult to wean down her sedation to assess fully her mental status. Patient will get extremely agitated on a lower dose of fentanyl or propofol, she desaturates, she becomes very short of breath, and asynchronous with the ventilator. Multiple attempts have been done in the last few days, and they have been unsuccessful nonetheless the patient is now is off paralytics. Yesterday I changed the patient from pressure control to volume control, she is on assist control rate of 26 tidal volume 350 FiO2 of 55% PEEP is 14. ABG earlier on 65% showed a pO2 of 122 pCO2 63 pH of 7.41. Electrolytes are normal except for low potassium of 2.8, being corrected accordingly. Renal profile is normal sodium is normal that is scattered 7.8 hemoglobin is 9.3. Patient remains on fentanyl 2 mcg/kg/m, propofol at 75 mcg/kg/m she is receiving vital Hb at 10 mL per hour. Chest x- ray today showed improvement in her right-sided pneumothorax, nonetheless on physical examination she continues to have some air leak in the newly placed chest tube, and hardly any leak in the old chest tube. The pneumothorax seems to be much smaller today compared to the last few days. As I was finishing my balance in the ICU, patient developed an episode of atrial fibrillation with RVR, and I recommended Cardizem bolus, Cardizem drip, and cardiology was consulted. Reevaluated today on 11/08/2021, patient remains in the ICU, intubated and mechanically ventilated. She is on assist control rate of 26, tidal volume is 400, FiO2 50%, PEEP of 14. Patient is off sedation, she is only on Seroquel 50 mg twice a day, she is off all the drips including propofol, fentanyl, and Nimb ex. Her IV fluids at 50 mL per hour. Patient is awake, follows simple instructions however she seems to be completely paralyzed on the left side. Hence I'm recommending today a neurology evaluation, and a CT of the brain without contrast. Her labs today were all reviewed, ABG showed a pO2 of 75 pCO2 47 pH of 7.43, WBC count is 14.3 hemoglobin is 9.2. Lites are normal renal profile is normal. Patient remains on enteral feeding, and she remains on Eliquis because of her history of DVT and pulmonary embolism. Patient is also on amlodipine 10 mg daily, she remains remains on the COVID-19 cocktail. On Seroquel at 50 mg by mouth twice a day, and prednisone at 60 mg daily however I will cut down to 40 mg daily. Reevaluated today on 11/09/2021, patient remains in the ICU, intubated and mec hanically ventilated. Patient is on assist control mode of mechanical ventilation, today I made sure that the patient is on volume control with a leak. Compensation. Rate is set at 300 FiO2 is 50% PEEP is down to 12 FiO2 50% and tidal volume is 400. Patient is having some leak from the chest tube, and possibly from leak in the tracheostomy. Hence we added leak compensation to the volume control mode of mechanical ventilation making up for the volume loss. Patient seems to be more comfortable on this mode, however I had to give the patient 1 dose of Dilaudid this morning calm her down as she was not getting the upper volumes and she was getting more and more anxious and tachycardic and tachypneic. Chest x-ray continues to show a small right-sided apical pneumothorax in spite of the fact the patient has not [address] The new chest tube is showing air leak, but the other 2 chest tubes are not showing any air leak. ABG today was relatively unremarkable, hence minimal adjustment was made on the ventilator settings, and the PEEP down is down to 12. Her electrolytes are normal renal profile is normal WBC count is 14.3 hemoglobin is 8.2, chest x-ray shows bilateral interstitial infiltrates, and again a right-sided small pneumothorax. Patient remains on enteral feeding, she is not requiring any propofol at present and she is not on any sedatives, she is on when necessary Dilaudid. I also increased her Seroquel dose to 50 mg twice a day. The patient is seen today 11/10/2021 in follow-up in the intensive care unit. She remains on the mechanical ventilator in assist control mode with a tidal volume of 400, respiratory rate of 30, FiO2 50% and a PEEP of 12. Leak compensation is also engaged. Tracheostomy tube is secured in place. Arterial blood gases reveal a pO2 of 77, pCO2 52, pH 7.42. Chest x-ray continues to show diffuse interstitial groundglass changes. Small right-sided pneumothorax is redemonstrated. One of the lateral chest tubes was removed yesterday. One lateral chest tube remains in place. The apical chest tube remains in place. There is a positive air leak. She currently remains off sedation. She is following commands. Left-sided remains weak. Right side is stronger. She remains nourished with vital HPI 46 ML's per hour which is goal. His normal saline running at 50 MLS per hour. Urine output is marginal at 25-40 mL per hour. She is continuing to receive Seroquel, Dilaudid and Ativan for restlessness. She gets tachypneic and tachycardic at times. She is anticoagulated with Eliquis. Continued on prednisone. The WBC 15.2. Hemoglobin 8.9. Platelets 337. Sodium 139. Potassium 3.9. Bicarb 31. BUN 27. Creatinine 0.29. Glucose 117. She is currently in a positive balance of 960 ML's. Objective - Vital Signs Vital signs: Vital Signs Temp 98.4 F 11/10/21 08:00 Pulse 110 H 11/10/21 09:00 Resp 38 H 11/10/21 09:00 BP 128/67 11/10/21 09:00 Pulse Ox 96 11/10/21 09:00 Intake & Output 11/09/21 11/10/21 11/10/21 18:59 06:59 18:59 Intake Total 1146 1242 288 Output Total 1035 390 90 Balance 111 852 198 Weight 93.3 kg Intake: IV 550 600 150 Sodium Chloride 0.9% 1, 550 600 150 000 ml @ 50 mls/hr IV . Q20H [facility] Rx#:[id number] Tube Feeding 506 552 138 Other 90 90 Output: Chest Tube Drainage 80 25 0 Chest Tube Right 0 Chest Tube Right Pleural 0 5 0 Chest Tube Right Upper 80 20 0 Anterior Chest Urine 955 365 90 Other: Voiding Method Indwelling Catheter Indwelling Catheter ABP, PAP, CO, CI - Last Documented Arterial Blood Pressure 120/111 - Exam GENERAL EXAM: Alert, following commands, remains on mechanical ventilator, fairly comfortable in no apparent distress. HEAD: Normocephalic. EYES: Normal reaction of pupils, equal size. NOSE: Clear with pink turbinates. THROAT: Tracheostomy tube secured in place. No erythema or exudates. NECK: No masses, no JVD. CHEST: No chest wall deformity. LUNGS: Equal air entry with coarse crackles in the bilateral bases. CVS: S1 and S2 normal with no audible murmur, regular rhythm. ABDOMEN: PEG tube exit site clean and dry. No hepatosplenomegaly, normal bowel sounds, no guarding or rigidity. SPINE: No scoliosis or deformity SKIN: No rashes CENTRAL NERVOUS SYSTEM: No focal deficits, generalized weakness, tone is normal in all 4 extremities. EXTREMITIES: There is trace peripheral edema. No clubbing, no cyanosis. Peripheral pulses are intact. - Labs CBC & Chem 7: 11/10/21 06:14 11/10/21 06:14 Labs: Abnormal Lab Results - Last 24 Hours (Table) 11/09/21 11/09/21 11/09/21 Range/Units 11:33 18:02 23:28 WBC (3.8-10.6) k/uL RBC (3.80-5.40) m/uL Hgb (11.4-16.0) gm/dL Hct (34.0-46.0) % MCHC (31.0-37.0) g/dL RDW (11.5-15.5) % Neutrophils # (1.3-7.7) k/uL ABG pCO2 (35-45) mmHg ABG pO2 (83-108) mmHg ABG HCO3 (21-25) mmol/L ABG Total CO2 (19-24) mmol/L Carbon Dioxide (22-30) mmol/L BUN (7-17) mg/dL Creatinine (0.52-1.04) mg/dL Glucose (74-99) mg/dL POC Glucose (mg/dL) 189 H 222 H 130 H (75-99) mg/dL 11/10/21 11/10/21 11/10/21 Range/Units 05:42 06:02 06:14 WBC 15.2 H (3.8-10.6) k/uL RBC 3.19 L (3.80-5.40) m/uL Hgb 8.9 L (11.4-16.0) gm/dL Hct 29.9 L (34.0-46.0) % MCHC 29.7 L (31.0-37.0) g/dL RDW 16.2 H (11.5-15.5) % Neutrophils # 10.8 H (1.3-7.7) k/uL ABG pCO2 52 H (35-45) mmHg ABG pO2 77 L (83-108) mmHg ABG HCO3 33 H (21-25) mmol/L ABG Total CO2 35 H (19-24) mmol/L Carbon Dioxide (22-30) mmol/L BUN (7-17) mg/dL Creatinine (0.52-1.04) mg/dL Glucose (74-99) mg/dL POC Glucose (mg/dL) 123 H (75-99) mg/dL 11/10/21 Range/Units 06:14 WBC (3.8-10.6) k/uL RBC (3.80-5.40) m/uL Hgb (11.4-16.0) gm/dL Hct (34.0-46.0) % MCHC (31.0-37.0) g/dL RDW (11.5-15.5) % Neutrophils # (1.3-7.7) k/uL ABG pCO2 (35-45) mmHg ABG pO2 (83-108) mmHg ABG HCO3 (21-25) mmol/L ABG Total CO2 (19-24) mmol/L Carbon Dioxide 31 H (22-30) mmol/L BUN 27 H (7-17) mg/dL Creatinine 0.29 L (0.52-1.04) mg/dL Glucose 117 H (74-99) mg/dL POC Glucose (mg/dL) (75-99) mg/dL Microbiology - Last 24 Hours (Table) 11/07/21 11:41 Gram Stain - Final Sputum Sputum Culture - Final Corynebacterium species 11/07/21 11:53 Catheter Tip Culture - Final Catheter Tip 11/07/21 11:35 Blood Culture - Preliminary Blood No Growth after 48 hours 11/07/21 10:20 Blood Culture - Preliminary Blood No Growth after 48 hours Assessment and Plan Assessment: 1 Acute hypoxic respiratory failure secondary to COVID-19 pneumonia and complicated with ARDS. Patient was intubated on 09/25/2021. Status post tracheostomy and PEG tube placement. 10/14/2021. 2 Acute deep vein thrombosis, on Eliquis. History of hypercoagulable state, factor V Leyden mutation. 3 Bilateral pneumothoraces requiring bilateral chest tube placement. However since then the left-sided chest tube was removed, right-sided chest tube had to be placed again, a right sided thoravent on 10/25/21, status post chest tube placement again on 10/29/2021, and the removal of thoravent on 10/29. Third right-sided chest tube was placed again on 11/08/2021 and position more towards the apex. One lateral chest tube removed on 11/09/2021. One remains laterally and the one remains in the apex with a positive leak. 4 Acute COVID-19 pneumonia 5 Subcutaneous emphysema, resolved. 6 Prior history of DVT 7 History of fibromyalgia 8 Degenerative joint disease 9 Mildly elevated liver enzymes secondary to cardona virus infection. 10 Nonsustained ventricular tachycardia, resolved 11 Paroxysmal atrial fibrillation. Being followed by cardiology. 12 Persistent right-sided pneumothorax in spite of [address], hence I'm recommending a thoracic surgery consultation. 13 Left sided weakness and paralysis, hence a neurological consultation was initiated, and CT of the brain was ordered. 14 Critical illness polyneuropathy. Secondary to prolonged course of COVID-19 infection and a story failure. Plan: The patient was seen and evaluated Chest x-ray, ABGs and labs reviewed Plan is to remove the second right lateral chest tube today One apical right-sided chest tube to remain in place, positive leak Increase normal saline to 100 ML's per hour Add Precedex, watch for bradycardia Decrease frequency of Dilaudid and Ativan Continue nourishment with vital HPI 46 ML's per hour which is goal We will continue to follow and make further recommendations based on her clinical status I, the cosigning physician, performed a history & physical examination of the patient. Lungs sounds are coarse crackles in the bilateral bases. Maintaining good O2 saturations in the 90s on 50% FiO2 and a PEEP of 12 via the mechanical ventilator. I discussed the assessment and plan of care with my nurse practit rickey, Melinda Ansari. I attest to the above note as dictated by her. I have personally seen and examined the patient, performed the documentation and the assessment and plan as written. Number of minutes spent on the visit: 15.
--- NOTE | 2021-11-10 10:27 | P.PN ---
Subjective Progress Note Date: 11/09/21 Patient was seen for a follow-up. Patient's and daughter were present today. Patient is much more alert and awake. She appears delirious. Very tremulous. Patient denies headache, or any pain anywhere. However when she was examined, she was continuously saying "ouch "ouch" whenever she was touched or examined. Patient's mentioned that patient has history of rheumatoid arthritis and has decreased range of motion in the upper limbs, particularly in the hands. She walks by herself, does not use any assistive device. She has limited range of motion of shoulder and hands are worse particularly in this weather. Patient never received any vaccination for cardona wireless. Objective - Vital Signs Vital signs: Vital Signs Temp 98.4 F 11/10/21 08:00 Pulse 110 H 11/10/21 09:00 Resp 38 H 11/10/21 09:00 BP 128/67 11/10/21 09:00 Pulse Ox 96 11/10/21 09:00 Intake & Output 11/09/21 11/10/21 11/10/21 18:59 06:59 18:59 Intake Total 1146 1242 288 Output Total 1035 390 90 Balance 111 852 198 Weight 93.3 kg Intake: IV 550 600 150 Sodium Chloride 0.9% 1, 550 600 150 000 ml @ 50 mls/hr IV . Q20H [facility] Rx#:[id number] Tube Feeding 506 552 138 Other 90 90 Output: Chest Tube Drainage 80 25 0 Chest Tube Right 0 Chest Tube Right Pleural 0 5 0 Chest Tube Right Upper 80 20 0 Anterior Chest Urine 955 365 90 Other: Voiding Method Indwelling Catheter Indwelling Catheter ABP, PAP, CO, CI - Last Documented Arterial Blood Pressure 120/111 - Exam Patient is very alert and awake. She has tracheostomy. She is on ventilator. Patient appears severely generalized weak. Patient's pupils are round and reacting. Extraocular muscles are intact. Her face is symmetric. Her hearing appears normal. Patient is quadriplegic. 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 She could not wiggle any finger of the left hand. Likewise patient was wiggling her right foot much better, nothing on the left. Patient was tender for touch, and any movement. She would continuously moves her mouth saying "ouch ouch" Deep tendon reflexes are (right/left) biceps 1+/0, brachioradialis 0/0, triceps 1+/1+, knees 0/0, ankles 0/0, and plantars are flat bilaterally. Patient has significant peripheral edema. - Labs CBC & Chem 7: 11/10/21 06:14 11/10/21 06:14 Labs: Abnormal Lab Results - Last 24 Hours (Table) 11/09/21 11/09/21 11/09/21 Range/Units 11:33 18:02 23:28 WBC (3.8-10.6) k/uL RBC (3.80-5.40) m/uL Hgb (11.4-16.0) gm/dL Hct (34.0-46.0) % MCHC (31.0-37.0) g/dL RDW (11.5-15.5) % Neutrophils # (1.3-7.7) k/uL ABG pCO2 (35-45) mmHg ABG pO2 (83-108) mmHg ABG HCO3 (21-25) mmol/L ABG Total CO2 (19-24) mmol/L Carbon Dioxide (22-30) mmol/L BUN (7-17) mg/dL Creatinine (0.52-1.04) mg/dL Glucose (74-99) mg/dL POC Glucose (mg/dL) 189 H 222 H 130 H (75-99) mg/dL 11/10/21 11/10/21 11/10/21 Range/Units 05:42 06:02 06:14 WBC 15.2 H (3.8-10.6) k/uL RBC 3.19 L (3.80-5.40) m/uL Hgb 8.9 L (11.4-16.0) gm/dL Hct 29.9 L (34.0-46.0) % MCHC 29.7 L (31.0-37.0) g/dL RDW 16.2 H (11.5-15.5) % Neutrophils # 10.8 H (1.3-7.7) k/uL ABG pCO2 52 H (35-45) mmHg ABG pO2 77 L (83-108) mmHg ABG HCO3 33 H (21-25) mmol/L ABG Total CO2 35 H (19-24) mmol/L Carbon Dioxide (22-30) mmol/L BUN (7-17) mg/dL Creatinine (0.52-1.04) mg/dL Glucose (74-99) mg/dL POC Glucose (mg/dL) 123 H (75-99) mg/dL 11/10/21 Range/Units 06:14 WBC (3.8-10.6) k/uL RBC (3.80-5.40) m/uL Hgb (11.4-16.0) gm/dL Hct (34.0-46.0) % MCHC (31.0-37.0) g/dL RDW (11.5-15.5) % Neutrophils # (1.3-7.7) k/uL ABG pCO2 (35-45) mmHg ABG pO2 (83-108) mmHg ABG HCO3 (21-25) mmol/L ABG Total CO2 (19-24) mmol/L Carbon Dioxide 31 H (22-30) mmol/L BUN 27 H (7-17) mg/dL Creatinine 0.29 L (0.52-1.04) mg/dL Glucose 117 H (74-99) mg/dL POC Glucose (mg/dL) (75-99) mg/dL Microbiology - Last 24 Hours (Table) 11/07/21 11:41 Gram Stain - Final Sputum Sputum Culture - Final Corynebacterium species 11/07/21 11:53 Catheter Tip Culture - Final Catheter Tip 11/07/21 11:35 Blood Culture - Preliminary Blood No Growth after 48 hours 11/07/21 10:20 Blood Culture - Preliminary Blood No Growth after 48 hours Assessment and Plan Assessment: * Generalized weakness, 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 Suspect part of myopathy/neuropathy with a relatively slightly preserved muscle functioning on the right side. No clearcut evidence of CVA. Her face is symmetric, and her comprehension is intact. * Encephalopathy, improved, but patient appears delirious, very tremulous. * Ventilator-dependent respiratory failure * Status post tracheostomy and PEG placement * Status post Covid-19 pneumonia * Pneumothorax * Obesity * DVT left leg, currently on anticoagulation with Eliquis. Plan: * Patient continues to be generalized weak, but left side is much worse than right. Uncertain why there is some worsening weakness on the left side. * CT head showed no acute process. * We will check carotid Doppler to rule out stenosis. * 2-D echo from 11/01/2021 showed mild concentric LVH. EF is between 55-60%. Aortic valve not well visualized. * Patient's level of alertness and consciousness have improved since decreasing dose of Seroquel, but continues to be delirious. * We will check B12, folate, hemoglobin A1c, CK, aldolase, rheumatoid factor. Patient's TSH is normal 1.38. * Patient currently on Eliquis. * Discussed with patient's and daughters in detail.
[2021-11-10 11:29] LABS: Glucose,Whole Blood 176 mg/dL (75-99)
--- NOTE | 2021-11-10 14:17 | P.PN ---
Subjective This is a 61-year-old female who was recently admitted with acute COVID-19 pneumonia with acute COVID-19 bilateral interstitial pneumonia and also with transaminitis and being closely monitored. Patient remains in the ICU and currently intubated and sedated with an FiO2 of 70% and PEEP is 18. 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 Patient did have a venous Doppler study done recently which showed left leg DVT and patient is maintained on Eliquis will continue. Patient also continues on empiric antibiotics and awaiting for sputum culture finalized. Patient was started on IV cefepime and will continue. Patient is also continued on oral dexamethasone along with vitamin and zinc supplements and will continue. Patient with some mild volume overload and given a dose of IV L asix push today. 11/03/2021 Patient is seen in follow-up this morning and continues to be closely monitored in the ICU with multiple medical consultations following. Per nursing staff working on weaning sedation and is currently off propofol to assess and no responses noted and patient is not following commands. FiO2 titrated down to 45% with a PEEP of 14 and currently on Precedex for hypertension. Chest xray shows stable scattered interstitial and alveolar infiltrates throughout both lung patterson that persist and are unchanged. Potassium is low at 3.3 and will replace per protocol and recommend repeat labs. 11/04/2021 Patient is seen and evaluated today and continues to be in critical condition. Continued right chest tubes x2 and chest xray today shows some increase in size of the pneumothorax on the right. Patient is off sedation since yesterday and does not respond to commands only painful stimuli. CT brain ordered and pending. Patient currently on precidex and having multiple issues with blood pressure. Code status was changed to no code by family today. Patient continues on vent and FI02 is 50% with a peep of 14. Overall prognosis is extremely poor and guarded. 11/05/2021 Patient continues in the ICU being closely monitored. Fi02 is 50% with a peep of 14. Patient also continues with 2 right side chest tubes with chest xray showing possible slight improvement in the size of right side pneumothorax and otherwise stable chest. Patient continues on eliquis along with oral prednisone and vitamin and zinc supplements. Patient is off propofol and not following command s. CT brain was negative yesterday. 11/06/2021 Patient with bilateral pneumonia and acute hypoxic respiratory failure requiring intubation and mechanical ventilation with pulmonary/critical care team following him closely and help with vent management. Patient has prolonged course in the hospital and intensive care unit. And his courses marked by several complications including bilateral pneumothoraces status post chest tubes, more on the right side. New-onset A. 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 His condition remains critical. Distal hypoxic requiring high FiO2 50%, his blood pressure is borderline 80/53, he had no fever today but yesterday his temperature was found and draped. He is tachypneic and 28. He is kept on Eliquis 5 mg, prednisone 60 mg, normal saline 50 mg as well as vitamin C, D and zinc. He is also on Protonix and Cardizem 30 mg 4 times a day 11/07/2021 Patient remains intubated on mechanical ventilation with pulmonary/critical care team following her closely and help with her ICU management and vent management. Patient still tachypneic, tachycardic and low-grade fever of 100.2. Blood pr essure is a stable on pressors were discontinued. WBC is 16.2, hemoglobin 9. She has sputum culture showing Corynebacterium but repeat sputum culture is pending. Chest x-ray showing small right pneumothorax and similar diffuse bilateral ground glass opacity. She remains on Eliquis 5 mg, prednisone, normal saline at 50 and vitamins. Antibiotics were discontinued by pulmonary/critical care team and they recommended to keep monitoring while she is off antibiotics. She has DO NOT RESUSCITATE order. Family 11/08/2021 Patient is still in critical condition in the ICU with pulmonary/critical care t eam followed closely and help with vent management and critical care management. Patient was noticed to be still weak all over and drowsy, her weakness was thought to be more on the left side, therefore neurological consult was obtained patient was diagnosed with critical illness myopathy/neuropathy plus toxic/metabolic encephalopathy partly related to medication therefore surgical dose lowered 50 down to 25 twice a day. Patient with low-grade fever, FiO2 of 50%, blood pressure is stable, slightly tachycardic and tachypneic. Labs show leukocytosis 14.3 and hemoglobin 9.2. Chest x-ray showing decreased pneumothorax 5-10% after placement of chest tube on the right side by cardiothoracic surgery team consulted today also there is diffuse subcutaneous edema which looks stable. Patient remains on Eliquis 5 mg, prednisone 60 mg, vitamins on normal saline at 50 mL per hour 11/09/2021 Patient still on the critical care unit requiring special attention with tracheostomy placed yesterday status post mechanical ventilation with pulmonary/critical care team followed closely and help with vent management. Today patient is afebrile, tachycardia improved still tachypneic blood pressure is stable, FiO2 stable at 50%. Left unstable leukocytosis 14.3, hemoglobin 8.2. Chest x-ray showing 3 chest tubes on the right side with lateral component of the pneumothorax is slightly worse by 4 mm and there is diffuse interstitial and groundglass changes. Remains on Eliquis 5 mg, multiple vitamins, prednisone lowered to 40 mg and still on normal saline at 50 mL/h No sedation trial today 11/10/2021 Patient remains in the ICU on mechanical ventilation in a critical condition. She is status post tracheostomy. With pulmonary/critical care team following her closely and help with vent management and critical care management. Patient is tachycardic and tachypneic, blood pressure is stable. She has FiO2 of 50%. Leukocytosis of 15,000, hemoglobin 8.9. Showing bilateral infiltrates Patient remains on Eliquis 5 mg, prednisone 40 mg, increase normal saline 100 mL per hour. Continue with multiple vitamins. 2 chest tubes have been removed and the apical [address] Objective - Vital Signs Vital signs: Vital Signs Temp 98.4 F 11/10/21 08:00 Pulse 102 H 11/10/21 10:00 Resp 37 H 11/10/21 10:00 BP 154/83 11/10/21 10:00 Pulse Ox 95 11/10/21 10:00 Intake & Output 11/09/21 11/10/21 11/10/21 18:59 06:59 18:59 Intake Total 1146 1242 434 Output Total 1035 390 125 Balance 111 852 309 Weight 93.3 kg Intake: IV 550 600 250 Sodium Chloride 0.9% 1, 550 600 250 000 ml @ 50 mls/hr IV . Q20H [facility] Rx#:[id number] Tube Feeding 506 552 184 Other 90 90 Output: Chest Tube Drainage 80 25 0 Chest Tube Right 0 Chest Tube Right Pleural 0 5 0 Chest Tube Right Upper 80 20 0 Anterior Chest Urine 955 365 125 Other: Voiding Method Indwelling Catheter Indwelling Catheter ABP, PAP, CO, CI - Last Documented Arterial Blood Pressure 120/111 - Exam -GENERAL: The patient is intubated status post tracheostomy. Patient generally weak HEENT: Pupils are round and equally reacting to light. EOMI. No scleral icterus. No conjunctival pallor. Normocephalic, atraumatic. No pharyngeal erythema. No thyromegaly. CARDIOVASCULAR: S1 and S2 present. No murmurs, rubs, or gallops. -PULMONARY: Bilateral decreased breath sounds with bilateral crepitation ABDOMEN: Soft, nontender, nondistended, normoactive bowel sounds. No palpable organomegaly. MUSCULOSKELETAL: No joint swelling or deformity. EXTREMITIES: No cyanosis, clubbing, or pedal edema. -NEUROLOGICAL: Gross neurological examination did not reveal any focal deficits. General awake, more on the left side SKIN: No rashes. no petechiae. - Labs CBC & Chem 7: 11/10/21 06:14 11/10/21 06:14 Labs: Abnormal Lab Results - Last 24 Hours (Table) 11/09/21 11/09/21 11/09/21 Range/Units 11:33 18:02 23:28 WBC (3.8-10.6) k/uL RBC (3.80-5.40) m/uL Hgb (11.4-16.0) gm/dL Hct (34.0-46.0) % MCHC (31.0-37.0) g/dL RDW (11.5-15.5) % Neutrophils # (1.3-7.7) k/uL ABG pCO2 (35-45) mmHg ABG pO2 (83-108) mmHg ABG HCO3 (21-25) mmol/L ABG Total CO2 (19-24) mmol/L Carbon Dioxide (22-30) mmol/L BUN (7-17) mg/dL Creatinine (0.52-1.04) mg/dL Glucose (74-99) mg/dL POC Glucose (mg/dL) 189 H 222 H 130 H (75-99) mg/dL 11/10/21 11/10/21 11/10/21 Range/Units 05:42 06:02 06:14 WBC 15.2 H (3.8-10.6) k/uL RBC 3.19 L (3.80-5.40) m/uL Hgb 8.9 L (11.4-16.0) gm/dL Hct 29.9 L (34.0-46.0) % MCHC 29.7 L (31.0-37.0) g/dL RDW 16.2 H (11.5-15.5) % Neutrophils # 10.8 H (1.3-7.7) k/uL ABG pCO2 52 H (35-45) mmHg ABG pO2 77 L (83-108) mmHg ABG HCO3 33 H (21-25) mmol/L ABG Total CO2 35 H (19-24) mmol/L Carbon Dioxide (22-30) mmol/L BUN (7-17) mg/dL Creatinine (0.52-1.04) mg/dL Glucose (74-99) mg/dL POC Glucose (mg/dL) 123 H (75-99) mg/dL 11/10/21 Range/Units 06:14 WBC (3.8-10.6) k/uL RBC (3.80-5.40) m/uL Hgb (11.4-16.0) gm/dL Hct (34.0-46.0) % MCHC (31.0-37.0) g/dL RDW (11.5-15.5) % Neutrophils # (1.3-7.7) k/uL ABG pCO2 (35-45) mmHg ABG pO2 (83-108) mmHg ABG HCO3 (21-25) mmol/L ABG Total CO2 (19-24) mmol/L Carbon Dioxide 31 H (22-30) mmol/L BUN 27 H (7-17) mg/dL Creatinine 0.29 L (0.52-1.04) mg/dL Glucose 117 H (74-99) mg/dL POC Glucose (mg/dL) (75-99) mg/dL Microbiology - Last 24 Hours (Table) 11/07/21 11:41 Gram Stain - Final Sputum Sputum Culture - Final Corynebacterium species 11/07/21 11:53 Catheter Tip Culture - Final Catheter Tip 11/07/21 11:35 Blood Culture - Preliminary Blood No Growth after 48 hours 11/07/21 10:20 Blood Culture - Preliminary Blood No Growth after 48 hours Assessment and Plan Assessment: Acute COVID-19 infection with acute COVID-19 bilateral interstitial pneumonia with hypoxic hypercarbic respiratory failure on mechanical vent status post trach and peg tube placement on 10/14/2021 Worsening right side pneumothorax status post chest tube placement and thoravent removal on 10/29/2021 Right pneumothorax status post chest tube placement Critical illness myopathy and neuropathy Atrial fibrillation, new onset, currently rate controlled on metoprolol and cardizem Non-sustained ventricular tachycardia, currently sinus Acute left leg deep vein thrombosis Primary hypercoagulable state and factor V deficiency Obesity with a body mass index of 36.0 DVT prophylaxis: on Eliquis No code Plan: This is a pleasant 61 years old female with covert pneumonia, hypoxia, DVT and A. fib. Continue with multiple vitamins and prednisone 60 mg Continue with gentle hydration normal saline 50 ml per hour Continue with the Eliquis cardiology and pulmonary/critical care team on the case. Neurology consult, vascular surgery consult Labs and medication were reviewed.. Continue same treatment. Continue with symptomatic treatment. Resume home medication. Monitor lytes and vitals. DVT and GI prophylaxis. Further recommendations as per clinical course of the patient DVT prophylaxis: Eliquis GI Prophylaxis: Ppi Prognosis is extremely guarded
[2021-11-10 14:43] LABS: Folate, Serum 3.8 ng/mL (4.40-31.00)
--- NOTE | 2021-11-10 15:14 | XR ---
EXAMINATION TYPE: XR chest 1V portable DATE OF EXAM: 11/10/2021 COMPARISON: 11/09/2021 INDICATION: Pneumothorax TECHNIQUE: Single frontal view of the chest is obtained. FINDINGS: The heart size is normal. The pulmonary vasculature is prominent. Diffuse increased lung markings are present bilaterally. There is diminished size of the right apical pneumothorax. 2 right-sided chest tubes are present. The third chest tube is been removed. PICC line enters on the right with the tip in the proximal right atrium. Tracheostomy tube is in the midline. IMPRESSION: 1. Normal residual right apical pneumothorax, diminished from comparison. 2. 2 right-sided chest tubes remain in position. 3. Diffuse increased lung markings bilaterally
--- NOTE | 2021-11-10 15:32 | US ---
EXAMINATION TYPE: US carotid duplex BILAT DATE OF EXAM: 11/10/2021 COMPARISON: NONE CLINICAL HISTORY: Weakness, left-sided. patient has lung CA and Covid pneumonia, patient has tracheos mary so exam was limited due to starts around neck EXAM MEASUREMENTS: RIGHT: Peak Systolic Velocity (PSV) cm/sec ----- Right CCA: 96.1 ----- Right ICA: 100.0 ----- Right ECA: not seen ICA/CCA ratio: 1.0 RIGHT: End Diastole cm/sec ----- Right CCA: 11.7 ----- Right ICA: 20.6 ----- Right ECA: not seen LEFT: Peak Systolic Velocity (PSV) cm/sec ----- Left CCA: 97.4 ----- Left ICA: 106 ----- Left ECA: 96.7 ICA/CCA ratio: 1.1 LEFT: End Diastole cm/sec ----- Left CCA: 16.2 ----- Left ICA: 20.5 ----- Left ECA: 0.0 VERTEBRALS (direction of flow): Right Vertebral: not seen due to reasons stated above Left Vertebral: Antegrade Rhythm: Normal Very limited scan due to tracheostomy straps limiting view of neck, no significant stenosis seen. IMPRESSION: 1. Limitations on this examination due to patient's condition. 2. No obvious flow-limiting stenosis carotid bifurcations. Consider CTA if additional evaluation woul d be of benefit. Criteria for Assigning % of Stenosis / Diameter reduction (Estimation based on the indirect measurements of the internal carotid artery velocities (ICA PSV). 1. Normal (no stenosis)=ICA PSV < 125 cm/s: ratio < 2.0: ICA EDV<40 cm/s. 2. Less than 50% stenosis=ICA PSV < 125 cm/s: ratio < 2.0: ICA EDV<40 cm/s. 3. 50 to 69% stenosis=ICA PSV of 125 to 230 cm/s: ration 2.0 ? 4.0: ICA EDV 40-100 cm/s. 4. Greater than 70% stenosis to near occlusion= ICA PSV > 230 cm/s: ratio > 4.0: ICA EDV > 100 cm/s. 5. Near occlusion= ICA PSV velocities may be low or undetectable: variable ratio and ICA EDV. 6. Total occlusion=unable to detect flow.
[2021-11-10 17:35] LABS: Glucose,Whole Blood 236 mg/dL (75-99)
[2021-11-10] MEDS: FOLIC ACID 1 MG TAB PO SCH (18:39)
--- NOTE | 2021-11-10 23:20 | P.PN ---
Subjective Progress Note Date: 11/10/21 Patient was seen for a follow-up. Patient's was present today. Patient is much more alert and awake. She appears delirious, but better than yesterday. Very tremulous. Patient's mentioned that patient has history of rheumatoid arthritis and has decreased range of motion in the upper limbs, particularly in the hands. She walks by herself, does not use any assistive device. She has limited range of motion of shoulder and hands are worse particularly in this weather. Patient never received any vaccination for cardona wireless. Objective - Vital Signs Vital signs: Vital Signs Temp 98.9 F 11/10/21 12:00 Pulse 94 11/10/21 18:00 Resp 36 H 11/10/21 18:00 BP 110/59 11/10/21 18:00 Pulse Ox 97 11/10/21 18:00 Intake & Output 11/09/21 11/10/21 11/10/21 18:59 06:59 18:59 Intake Total 1146 1242 1632.362 Output Total 0527 252 2148 Balance 111 852 -277.638 Weight 93.3 kg 93.3 kg Intake: IV 883 881 3266 Sodium Chloride 0.9% 1, 725 568 4332 000 ml @ 50 mls/hr IV . Q20H [facility] Rx#:[id number] Intake, IV Titration 30.362 Amount Dexmedetomidine/0.9% NaCl 30.362 (Pmx) 400 mcg In Empty Bag 1 bag @ 0.2 MCG/KG/HR 4.665 mls/hr IV .[id number] [facility] Rx#:[id number] Tube Feeding 506 552 552 Other 90 90 Output: Chest Tube Drainage 80 25 0 Chest Tube Right 0 Chest Tube Right Pleural 0 5 0 Chest Tube Right Upper 80 20 0 Anterior Chest Urine 903 608 2238 Other: Voiding Method Indwelling Catheter Indwelling Catheter Indwelling Catheter ABP, PAP, CO, CI - Last Documented Arterial Blood Pressure 120/111 - Exam Patient is very alert and awake. She has tracheostomy. She is on ventilator. Patient appears severely generalized weak. Patient's pupils are round and reacting. Extraocular muscles are intact. Her face is symmetric. Her hearing appears normal. Patient is quadriplegic. Her greenskeeper on the right is further decreased as compared to yesterday. Her right toe and foot wiggling is also decreased as compared to yesterday and left arm and leg have no movement possible. Patient was tender for touch, and any movement. She would continuously moves her mouth saying "ouch ouch" Deep tendon reflexes are (right/left) biceps 0/0, brachioradialis 0/0, triceps 1+/1+, knees 0/0, ankles 0/0, and plantars are flat bilaterally. Patient has significant peripheral edema. - Labs CBC & Chem 7: 11/10/21 06:14 11/10/21 06:14 Labs: Abnormal Lab Results - Last 24 Hours (Table) 11/09/21 11/10/21 11/10/21 Range/Units 23:28 05:42 06:02 WBC (3.8-10.6) k/uL RBC (3.80-5.40) m/uL Hgb (11.4-16.0) gm/dL Hct (34.0-46.0) % MCHC (31.0-37.0) g/dL RDW (11.5-15.5) % Neutrophils # (1.3-7.7) k/uL ABG pCO2 52 H (35-45) mmHg ABG pO2 77 L (83-108) mmHg ABG HCO3 33 H (21-25) mmol/L ABG Total CO2 35 H (19-24) mmol/L Carbon Dioxide (22-30) mmol/L BUN (7-17) mg/dL Creatinine (0.52-1.04) mg/dL Glucose (74-99) mg/dL POC Glucose (mg/dL) 130 H 123 H (75-99) mg/dL Folate (4.40-31.00) ng/mL Rheumatoid Factor (0-15) IU/mL 11/10/21 11/10/21 11/10/21 Range/Units 06:14 06:14 06:14 WBC 15.2 H (3.8-10.6) k/uL RBC 3.19 L (3.80-5.40) m/uL Hgb 8.9 L (11.4-16.0) gm/dL Hct 29.9 L (34.0-46.0) % MCHC 29.7 L (31.0-37.0) g/dL RDW 16.2 H (11.5-15.5) % Neutrophils # 10.8 H (1.3-7.7) k/uL ABG pCO2 (35-45) mmHg ABG pO2 (83-108) mmHg ABG HCO3 (21-25) mmol/L ABG Total CO2 (19-24) mmol/L Carbon Dioxide 31 H (22-30) mmol/L BUN 27 H (7-17) mg/dL Creatinine 0.29 L (0.52-1.04) mg/dL Glucose 117 H (74-99) mg/dL POC Glucose (mg/dL) (75-99) mg/dL Folate 3.80 L (4.40-31.00) ng/mL Rheumatoid Factor 68 H (0-15) IU/mL 11/10/21 11/10/21 Range/Units 11:27 17:34 WBC (3.8-10.6) k/uL RBC (3.80-5.40) m/uL Hgb (11.4-16.0) gm/dL Hct (34.0-46.0) % MCHC (31.0-37.0) g/dL RDW (11.5-15.5) % Neutrophils # (1.3-7.7) k/uL ABG pCO2 (35-45) mmHg ABG pO2 (83-108) mmHg ABG HCO3 (21-25) mmol/L ABG Total CO2 (19-24) mmol/L Carbon Dioxide (22-30) mmol/L BUN (7-17) mg/dL Creatinine (0.52-1.04) mg/dL Glucose (74-99) mg/dL POC Glucose (mg/dL) 176 H 236 H (75-99) mg/dL Folate (4.40-31.00) ng/mL Rheumatoid Factor (0-15) IU/mL Microbiology - Last 24 Hours (Table) 11/07/21 11:35 Blood Culture - Preliminary Blood No Growth after 72 hours 11/07/21 10:20 Blood Culture - Preliminary Blood No Growth after 72 hours 11/07/21 11:41 Gram Stain - Final Sputum Sputum Culture - Final Corynebacterium species 11/07/21 11:53 Catheter Tip Culture - Final Catheter Tip Assessment and Plan Assessment: * Generalized weakness, 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 Examination shows worsening muscle strength on the rig ht as compared to yesterday. Now becoming more symmetric weakness, consistent with critical illness myopathy/neuropathy. GBS less likely due to preserved triceps reflex bilaterally. * Encephalopathy, improved, but patient appears delirious, very tremulous. * Ventilator-dependent respiratory failure * Status post tracheostomy and PEG placement * Status post Covid-19 pneumonia * Folate deficiency * Rheumatoid Arthritis. * Pneumothorax * Obesity * DVT left leg, currently on anticoagulation with Eliquis. Plan: * Patient continues to be generalized weak, and the right side also getting weaker now becoming more symmetric polyneuropathy. * CT head showed no acute process. * Carotid Doppler showed no significant stenosis. * 2-D echo from 11/01/2021 showed mild concentric LVH. EF is between 55-60%. Aortic valve not well visualized. * Patient's level of alertness and consciousness have improved since decreasing dose of Seroquel, but continues to be delirious. * B12 586, folate 3.8 (4.4-31), hemoglobin A1c 4.9, CK, aldolase, rheumatoid factor 68. Patient's TSH is normal 1.38. We wull start folate replacement. * Patient currently on Eliquis. * Discussed with patient's in detail.
[2021-11-10 23:36] LABS: Glucose,Whole Blood 130 mg/dL (75-99)
[2021-11-11] MEDS: INSULIN ASPART (NovoLOG) 100 UNIT/ML VIAL SQ SCH ×5 (01:19→23:37)
[2021-11-11] MEDS: DEXMEDETOMIDINE/0.9% NACL(PMX) 400 MCG in EMPTY BAG 1 BAG IV SCH ×3 (04:51→18:47)
[2021-11-11 05:46] LABS: Glucose,Whole Blood 129 mg/dL (75-99)
--- NOTE | 2021-11-11 07:31 | XR ---
EXAMINATION TYPE: XR chest 1V portable DATE OF EXAM: 11/11/2021 Comparison: 11/10/2021 Clinical History: 61-year-old female pneumothorax Findings: Tracheostomy cannula. ACDF hardware. Right PICC tip upper right atrium. A single right-sided chest tu be remains. No appreciable pneumothorax on the right on the current exam. Diffuse interstitial and gr oundglass changes persist without significant change. Heart remains mildly enlarged. Impression: 1. Only one right-sided chest tube remains. No appreciable pneumothorax. 2. Similar mild cardiomegaly. 3. Unchanged diffuse interstitial groundglass opacities.
[2021-11-11 07:55] LABS: Anisocytosis Slight; Basophils # (A) 0.1 k/uL (0-0.2); Basophils % (A) 1 %; Eosinophils # (A) 0.1 k/uL (0-0.7); Eosinophils % (A) 1 %; HCT 28.1 % (34.0-46.0); HGB 8.3 gm/dL (11.4-16.0); Hypochromasia Marked; Lymphocytes # (A) 2.2 k/uL (1.0-4.8); Lymphocytes % (A) 17 %; MCH 27.7 pg (25.0-35.0); MCHC 29.4 g/dL (31.0-37.0); MCV 94.2 fL (80.0-100.0); Mean Platelet Volume 9.3; Monocytes # (A) 0.8 k/uL (0-1.0); Monocytes % (A) 6 %; Neutrophils # (A) 9.9 k/uL (1.3-7.7); Neutrophils % (A) 74 %; Platelet Count 319 k/uL (150-450); RBC 2.99 m/uL (3.80-5.40); RDW 16.2 % (11.5-15.5); WBC 13.4 k/uL (3.8-10.6)
[2021-11-11 08:04] LABS: African American GFR (CKD) >90 (>60 ml/min/1.73 sqM); Anion Gap 0 mmol/L; Blood Urea Nitrogen 24 mg/dL (7-17); Calcium 8.8 mg/dL (8.4-10.2); Carbon Dioxide 33 mmol/L (22-30); Chloride 105 mmol/L (98-107); Glucose 127 mg/dL (74-99); Non-African American GFR(CKD) >90 (>60 ml/min/1.73 sqM); Potassium 3.9 mmol/L (3.5-5.1); Sodium 138 mmol/L (137-145)
--- NOTE | 2021-11-11 08:20 | P.PN ---
Subjective Progress Note Date: 11/11/21 Principal diagnosis: Continued right-sided pneumothorax despite chest tube placement, acute hypoxic respiratory failure requiring mechanical ventilation, covid pneumonia on admissi on, remains unvaccinated, leukocytosis with low-grade fever, acute DVT to left lower extremity this admission on Eliquis, with history of prior DVT, new diagnosis of paroxysmal atrial fibrillation this admission. Previous medical history of factor V leiden disorder on Coumadin at home The patient was seen and examined this morning laying in bed in the intensive care unit, still being mechanically ventilated. She does open her eyes, follow commands, currently able to wiggle fingers on both right and left hand, wiggle right toes. Anterior chest tube continues to show continuous air leak. Chest x-ray reviewed, no pneumothorax seen Objective - Vital Signs Vital signs: Vital Signs Temp 97.3 F L 11/11/21 04:00 Pulse 92 11/11/21 07:00 Resp 40 H 11/11/21 07:00 BP 125/68 11/11/21 07:00 Pulse Ox 97 11/11/21 07:00 Intake & Output 11/10/21 11/11/21 11/11/21 18:59 06:59 18:59 Intake Total 1917.978 6445.762 Output Total 1910 1802 Balance -277.638 -263.238 Weight 93.3 kg 96.2 kg Intake: IV 1050 700 Sodium Chloride 0.9% 1, 1050 700 000 ml @ 50 mls/hr IV . Q20H [facility] Rx#:[id number] Intake, IV Titration 30.362 150.762 Amount Dexmedetomidine/0.9% NaCl 30.362 150.762 (Pmx) 400 mcg In Empty Bag 1 bag @ 0.2 MCG/KG/HR 4.665 mls/hr IV .[id number] [facility] Rx#:[id number] Tube Feeding 552 598 Other 90 Output: Chest Tube Drainage 0 82 Chest Tube Right Pleural 0 Chest Tube Right Upper 0 82 Anterior Chest Urine 1910 1720 Other: Voiding Method Indwelling Catheter Indwelling Catheter ABP, PAP, CO, CI - Last Documented Arterial Blood Pressure 120/111 - Exam CONSTITUTIONAL: Appears comfortable, cooperative, no acute distress RESPIRATORY: Lungs sounds diminished bilaterally. Respirations even, nonlabored. Currently on mechanical ventilation through tracheostomy, ventilator settings this morning were FiO2 50%, tidal volume 400, respiratory rate 30, peep 10. CARDIOVASCULAR: S1, S2 present. Regular rate and rhythm, sinus rhythm on telemetry. Palpable peripheral pulses bilaterally. Left lower extremity edema present GASTROINTESTINAL: Abdomen soft, nontender, nondistended. Active bowel sounds present 4 quadrants. Tolerating tube feedings through PEG at 46 mL/h GENITOURINARY: Golden present draining clear yellow urine INTEGUMENTARY: Skin is warm and dry NEUROLOGIC: Opens eyes, follows commands, able to wiggle fingers on both hands, wiggles right toes INVASIVE LINES AND TUBES: Right-sided double-lumen PICC present. Right-sided anterior pleural chest tube present to wall suction, continuous air leak present - Labs CBC & Chem 7: 11/11/21 06:48 11/11/21 06:48 Labs: Abnormal Lab Results - Last 24 Hours (Table) 11/10/21 11/10/21 11/10/21 Range/Units 06:14 11:27 17:34 WBC (3.8-10.6) k/uL RBC (3.80-5.40) m/uL Hgb (11.4-16.0) gm/dL Hct (34.0-46.0) % MCHC (31.0-37.0) g/dL RDW (11.5-15.5) % Neutrophils # (1.3-7.7) k/uL Carbon Dioxide (22-30) mmol/L BUN (7-17) mg/dL Creatinine (0.52-1.04) mg/dL Glucose (74-99) mg/dL POC Glucose (mg/dL) 176 H 236 H (75-99) mg/dL Folate 3.80 L (4.40-31.00) ng/mL Rheumatoid Factor 68 H (0-15) IU/mL 11/10/21 11/11/21 11/11/21 Range/Units 23:34 05:44 06:48 WBC 13.4 H (3.8-10.6) k/uL RBC 2.99 L (3.80-5.40) m/uL Hgb 8.3 L (11.4-16.0) gm/dL Hct 28.1 L (34.0-46.0) % MCHC 29.4 L (31.0-37.0) g/dL RDW 16.2 H (11.5-15.5) % Neutrophils # 9.9 H (1.3-7.7) k/uL Carbon Dioxide (22-30) mmol/L BUN (7-17) mg/dL Creatinine (0.52-1.04) mg/dL Glucose (74-99) mg/dL POC Glucose (mg/dL) 130 H 129 H (75-99) mg/dL Folate (4.40-31.00) ng/mL Rheumatoid Factor (0-15) IU/mL 11/11/21 Range/Units 06:48 WBC (3.8-10.6) k/uL RBC (3.80-5.40) m/uL Hgb (11.4-16.0) gm/dL Hct (34.0-46.0) % MCHC (31.0-37.0) g/dL RDW (11.5-15.5) % Neutrophils # (1.3-7.7) k/uL Carbon Dioxide 33 H (22-30) mmol/L BUN 24 H (7-17) mg/dL Creatinine 0.27 L (0.52-1.04) mg/dL Glucose 127 H (74-99) mg/dL POC Glucose (mg/dL) (75-99) mg/dL Folate (4.40-31.00) ng/mL Rheumatoid Factor (0-15) IU/mL Microbiology - Last 24 Hours (Table) 11/07/21 11:35 Blood Culture - Preliminary Blood No Growth after 72 hours 11/07/21 10:20 Blood Culture - Preliminary Blood No Growth after 72 hours - Imaging and Cardiology Chest x-ray: report reviewed, image reviewed Assessment and Plan Assessment: 1. Continued right-sided pneumothorax despite chest tube placement, status post anterior chest tube placement by Dr. Gunn 2. Acute hypoxic respiratory failure requiring mechanical ventilation 3. Covid pneumonia on admission, remains on vaccinated 4. Leukocytosis with low-grade fever 5. Acute DVT to left lower extremity this admission on Eliquis, with history of prior DVT 6. New diagnosis of paroxysmal atrial fibrillation this admission, currently in sinus 7. History of factor V leiden disorder on Coumadin at home 8. Multiple other comorbidities Plan: 1. Continue anterior chest tube to continuous wall suction, monitor for resolution of air leak 2. Will monitor daily x-rays 3. Ventilator management per consumer loan underwriter 4. Medical management of other comorbidities per primary care 5. More recommendations to follow Time with Patient: Greater than 30
[2021-11-11] MEDS: NYSTATIN 100,000 UNIT/ML SUSP 500,000 UNIT/5 ML CUP PO SCH ×4 (08:47→21:08)
[2021-11-11] MEDS: PANTOPRAZOLE 40 MG/10 ML VIAL IV SCH (08:47)
[2021-11-11] MEDS: FOLIC ACID 1 MG TAB PO SCH (08:47)
[2021-11-11] MEDS: ZINC SULFATE 220 MG CAP PO SCH (08:47)
[2021-11-11] MEDS: LOSARTAN 25 MG TAB PO SCH (08:47)
[2021-11-11] MEDS: DILTIAZEM ORAL 30 MG TAB PO SCH (08:47)
[2021-11-11] MEDS: ASCORBIC ACID 500 MG TAB PO SCH ×2 (08:47→21:08)
[2021-11-11] MEDS: POTASSIUM BICARBONATE/CIT AC 20 MEQ TABLET.EFF PO SCH ×3 (08:47→21:08)
[2021-11-11] MEDS: APIXABAN 5 MG TAB PO SCH ×2 (08:47→21:08)
[2021-11-11] MEDS: predniSONE 20 MG TAB PO SCH (08:47)
[2021-11-11] MEDS: QUEtiapine 50 MG TAB PO SCH ×2 (08:50→21:08)
[2021-11-11] MEDS: amLODIPine 10 MG TAB PO SCH (08:50)
[2021-11-11] MEDS: METOPROLOL TARTRATE 50 MG TAB PO SCH ×2 (08:51→21:07)
[2021-11-11] MEDS: HYDROmorphone 1 MG/ML 1 ML SYRINGE IVP PRN ×2 (09:03→19:13)
[2021-11-11 09:25] LABS: Aldolase 7.3 U/L (1.2-7.6)
--- NOTE | 2021-11-11 11:15 | P.PN ---
Subjective Progress Note Date: 11/11/21 Principal diagnosis: Acute hypoxic respiratory failure secondary to COVID-19 pneumonia Reevaluated today on 10/31/2021, patient remains in the ICU intubated mechanically ventilated, sedated, off paralysis, however has been difficult to wean down her sedation to assess fully her mental status. Patient will get extremely agitated on a lower dose of fentanyl or propofol, she desaturates, she becomes very short of breath, and asynchronous with the ventilator. Multiple attempts have been done in the last few days, and they have been unsuccessful nonetheless the patient is now is off paralytics. Yesterday I changed the patient from pressure control to volume control, she is on assist control rate of 26 tidal volume 350 FiO2 of 55% PEEP is 14. ABG earlier on 65% showed a pO2 of 122 pCO2 63 pH of 7.41. Electrolytes are normal except for low potassium of 2.8, being corrected accordingly. Renal profile is normal sodium is normal that is scattered 7.8 hemoglobin is 9.3. Patient remains on fentanyl 2 mcg/kg/m, propofol at 75 mcg/kg/m she is receiving vital Hb at 10 mL per hour. Chest x- ray today showed improvement in her right-sided pneumothorax, nonetheless on physical examination she continues to have some air leak in the newly placed chest tube, and hardly any leak in the old chest tube. The pneumothorax seems to be much smaller today compared to the last few days. As I was finishing my balance in the ICU, patient developed an episode of atrial fibrillation with RVR, and I recommended Cardizem bolus, Cardizem drip, and cardiology was consulted. Reevaluated today on 11/08/2021, patient remains in the ICU, intubated and mechanically ventilated. She is on assist control rate of 26, tidal volume is 400, FiO2 50%, PEEP of 14. Patient is off sedation, she is only on Seroquel 50 mg twice a day, she is off all the drips including propofol, fentanyl, and Nimbex. Her IV fluids at 50 mL per hour. Patient is awake, follows simple instructions however she seems to be completely paralyzed on the left side. Hence I'm recommending today a neurology evaluation, and a CT of the brain without contrast. Her labs today were all reviewed, ABG showed a pO2 of 75 pCO2 47 pH of 7.43, WBC count is 14.3 hemoglobin is 9.2. Lites are normal renal profile is normal. Patient remains on enteral feeding, and she remains on Eliquis because of her history of DVT and pulmonary embolism. Patient is also on amlodipine 10 mg daily, she remains remains on the COVID-19 cocktail. On Seroquel at 50 mg by mouth twice a day, and prednisone at 60 mg daily however I will cut down to 40 mg daily. Reevaluated today on 11/09/2021, patient remains in the ICU, intubated and mechanically ventilated. Patient is on assist control mode of mechanical ventilation, today I made sure that the patient is on volume control with a leak. Compensation. Rate is set at 300 FiO2 is 50% PEEP is down to 12 FiO2 50% and tidal volume is 400. Patient is having some leak from the chest tube, and possibly from leak in the tracheostomy. Hence we added leak compensation to the volume control mode of mechanical ventilation making up for the volume loss. Patient seems to be more comfortable on this mode, however I had to give the patient 1 dose of Dilaudid this morning calm her down as she was not getting the upper volumes and she was getting more and more anxious and tachycardic and tachypneic. Chest x-ray continues to show a small right-sided apical pneumothorax in spite of the fact the patient has not [address] The new chest tube is showing air leak, but the other 2 chest tubes are not showing any air leak. ABG today was relatively unremarkable, hence minimal adjustment was made on the ventilator settings, and the PEEP down is down to 12. Her electrolytes are normal renal profile is normal WBC count is 14.3 hemoglobin is 8.2, chest x-ray shows bilateral interstitial infiltrates, and again a right-sided small pneumothorax. Patient remains on enteral feeding, she is not requiring any propofol at present and she is not on any sedatives, she is on when necessary Dilaudid. I also increased her Seroquel dose to 50 mg twice a day. The patient is seen today 11/10/2021 in follow-up in the intensive care unit. She remains on the mechanical ventilator in assist control mode with a tidal volume of 400, respiratory rate of 30, FiO2 50% and a PEEP of 12. Leak compensation is also engaged. Tracheostomy tube is secured in place. Arterial blood gases reveal a pO2 of 77, pCO2 52, pH 7.42. Chest x-ray continues to show diffuse interstitial groundglass changes. Small right-sided pneumothorax is redemonstrated. One of the lateral chest tubes was removed yesterday. One lateral chest tube remains in place. The apical chest tube remains in place. There is a positive air leak. She currently remains off sedation. She is following commands. Left-sided remains weak. Right side is stronger. She remains nourished with vital HPI 46 ML's per hour which is goal. His normal saline running at 50 MLS per hour. Urine output is marginal at 25-40 mL per hour. She is continuing to receive Seroquel, Dilaudid and Ativan for restlessness. She gets tachypneic and tachycardic at times. She is anticoagulated with Eliquis. Continued on prednisone. The WBC 15.2. Hemoglobin 8.9. Platelets 337. Sodium 139. Potassium 3.9. Bicarb 31. BUN 2 7. Creatinine 0.29. Glucose 117. She is currently in a positive balance of 960 ML's. Patient was reevaluated today on , remains in the ICU, intubated and mechanically ventilated. Patient remains on assist control mode of mechanical ventilation, she is on tidal volume of 400 with leak compensation, she is on a rate of 30 FiO2 50% PEEP of 10. Patient has been tolerating the Precedex well over the last 24 hours, nonetheless she continues to require intermittent Dilaudid injections. At times she gets extremely agitated, and Dilaudid seems to help her extreme agitation chest x-ray is basically about the same, continues to have bilateral interstitial changes related to her recent COVID-19 pneumonia. Continues to have a small right-sided apical pneumothorax, continues to have on e right-sided chest tube, clearly she has critical illness polyneuropathy. Remains edematous and swollen, hence I cut down her dose of Norvasc to 5 mg daily, and increase losartan to 50 mg daily. The patient on Eliquis. Reviewed all labs today reviewed chest x-ray, and otherwise no major changes made. W BC count is 13.4 hemoglobin is 8.3 left breast are normal renal profile is normal bicarb is 33. No ABG was done today, patient has excellent saturations in the mid 90s all along over the last 2 days. Continues to have good urine output. Remains on enteral feeding and that is well tolerated. Patient is receiving vital HPI 46 mL per hour. Patient is also on Precedex, and 0.6 mcg/kg/h, intermittently receiving Dilaudid. IV fluids at 50 mL per hour. Objective - Vital Signs Vital signs: Vital Signs Temp 98.3 F 11/11/21 08:00 Pulse 87 11/11/21 09:00 Resp 37 H 11/11/21 09:00 BP 145/74 11/11/21 09:00 Pulse Ox 92 L 11/11/21 09:00 Intake & Output 11/10/21 11/11/21 11/11/21 18:59 06:59 18:59 Intake Total 6131.785 9942.762 53.881 Output Total 1910 1802 Balance -277.638 -263.238 53.881 Weight 93.3 kg 96.2 kg Intake: IV 1050 700 Sodium Chloride 0.9% 1, 1050 700 000 ml @ 50 mls/hr IV . Q20H [facility] Rx#:[id number] Intake, IV Titration 30.362 150.762 53.881 Amount Dexmedetomidine/0.9% NaCl 30.362 150.762 53.881 (Pmx) 400 mcg In Empty Bag 1 bag @ 0.2 MCG/KG/HR 4.665 mls/hr IV .[id number] [facility] Rx#:[id number] Tube Feeding 552 598 Other 90 Output: Chest Tube Drainage 0 82 Chest Tube Right Pleural 0 Chest Tube Right Upper 0 82 Anterior Chest Urine 1910 1720 Other: Voiding Method Indwelling Catheter Indwelling Catheter ABP, PAP, CO, CI - Last Documented Arterial Blood Pressure 120/111 - Exam Physical Exam: Revealed a 61-year-old female in no distress. Awake, follows simple instructions, remained generally weak. Head: Atraumatic, normocephalic PEG tube is intact. HEENT:[Neck is supple.] [No neck masses.] [No thyromegaly.] [No JVD.] Chest: [Symmetrical chest expansion crackles and rhonchi at the bases.1 Right- sided chest tube is still in place. Air leak is noted Cardiac Exam: [Distant S1 and S2, no S3 gallop. No murmur. Abdomen: [Soft, nontender, no megaly, no rebound, no guarding, normal bowel sounds.] Extremities: [No clubbing, 2+ bipedal edema, no cyanosis.] Good pulses bilaterally. Neurological Exam: Opens eyes, follows instructions, remains weak on the left side mostly and she is also generally weak Psychiatric: Appropriate mood affect and appropriate mental status. However the patient is generally weak Skin: No rashes. - Labs CBC & Chem 7: 11/11/21 06:48 11/11/21 06:48 Labs: Abnormal Lab Results - Last 24 Hours (Table) 11/10/21 11/10/21 11/10/21 Range/Units 06:14 11:27 17:34 WBC (3.8-10.6) k/uL RBC (3.80-5.40) m/uL Hgb (11.4-16.0) gm/dL Hct (34.0-46.0) % MCHC (31.0-37.0) g/dL RDW (11.5-15.5) % Neutrophils # (1.3-7.7) k/uL Carbon Dioxide (22-30) mmol/L BUN (7-17) mg/dL Creatinine (0.52-1.04) mg/dL Glucose (74-99) mg/dL POC Glucose (mg/dL) 176 H 236 H (75-99) mg/dL Folate 3.80 L (4.40-31.00) ng/mL Rheumatoid Factor 68 H (0-15) IU/mL 11/10/21 11/11/21 11/11/21 Range/Units 23:34 05:44 06:48 WBC 13.4 H (3.8-10.6) k/uL RBC 2.99 L (3.80-5.40) m/uL Hgb 8.3 L (11.4-16.0) gm/dL Hct 28.1 L (34.0-46.0) % MCHC 29.4 L (31.0-37.0) g/dL RDW 16.2 H (11.5-15.5) % Neutrophils # 9.9 H (1.3-7.7) k/uL Carbon Dioxide (22-30) mmol/L BUN (7-17) mg/dL Creatinine (0.52-1.04) mg/dL Glucose (74-99) mg/dL POC Glucose (mg/dL) 130 H 129 H (75-99) mg/dL Folate (4.40-31.00) ng/mL Rheumatoid Factor (0-15) IU/mL 11/11/21 Range/Units 06:48 WBC (3.8-10.6) k/uL RBC (3.80-5.40) m/uL Hgb (11.4-16.0) gm/dL Hct (34.0-46.0) % MCHC (31.0-37.0) g/dL RDW (11.5-15.5) % Neutrophils # (1.3-7.7) k/uL Carbon Dioxide 33 H (22-30) mmol/L BUN 24 H (7-17) mg/dL Creatinine 0.27 L (0.52-1.04) mg/dL Glucose 127 H (74-99) mg/dL POC Glucose (mg/dL) (75-99) mg/dL Folate (4.40-31.00) ng/mL Rheumatoid Factor (0-15) IU/mL Microbiology - Last 24 Hours (Table) 11/07/21 11:35 Blood Culture - Preliminary Blood No Growth after 72 hours 11/07/21 10:20 Blood Culture - Preliminary Blood No Growth after 72 hours Assessment and Plan Assessment: Impression: Acute hypoxic respiratory failure secondary to COVID-19 pneumonia and complicated with ARDS. Patient was intubated on 09/25/2021. Status post tracheostomy and PEG tube placement. 10/14/2021. Acute deep vein thrombosis, on Eliquis. History of hypercoagulable state, factor V Leyden mutation. Bilateral pneumothoraces requiring bilateral chest tube placement. However since then the left-sided chest tube was removed, right-sided chest tube had to be placed again by Dr. Harris,I placed a right sided thoravent on 10/25/21, status post chest tube placement again on 10/29/2021, and the removal of thoravent on 10/29. Third chest tube was placed few days ago, and the old 2 chest tubes have been removed yesterday.. Continues to have significant air leak. And continues to have a small right apical pneumothorax Acute COVID-19 pneumonia, patient continues to have post inflammatory changes in both lungs. Prior history of DVT History of fibromyalgia Degenerative joint disease Nonsustained ventricular tachycardia, resolved Paroxysmal atrial fibrillation. Patient remains on metoprolol, today I have discontinued her Cardizem. Now that the patient is on Precedex, rate seems to be better controlled, and she is mostly bradycardic. Persistent right-sided pneumothorax , in spite of multiple chest tubes placed on the right side. Critical illness polyneuropathy. Secondary to prolonged course of COVID-19 infection and a story failure. followed by neurology. Recommendation: Continue ventilatory support. Continue Seroquel. Continue Precedex and use Dilaudid only as needed Continue tracheostomy care. Continue Eliquis Continue nutritional support/enteral feeding Continue GI and DVT prophylaxis, patient is on Protonix Continue COVID-19 cocktail Change amlodipine to 5 mg daily Changes losartan to 50 mg daily Continue metoprolol at 50 mg twice a day Discontinue Cardizem. Change prednisone to 30 mg by mouth daily Patient is critically ill. Patient is not quite ready for weaning off mechanical ventilation at this point. Critical care time is over 30 minutes. Time with Patient: Greater than 30
[2021-11-11 11:57] LABS: Glucose,Whole Blood 230 mg/dL (75-99)
[2021-11-11] MEDS: LORazepam 2 MG/ML INJ IV PRN (14:16)
[2021-11-11 17:58] LABS: Glucose,Whole Blood 213 mg/dL (75-99)
[2021-11-11] MEDS: SODIUM CHLORIDE 0.9% 1,000 ML IV SCH (20:17)
--- NOTE | 2021-11-11 21:08 | P.PN ---
Subjective This is a 61-year-old female who was recently admitted with acute COVID-19 pneumonia with acute COVID-19 bilateral interstitial pneumonia and also with transaminitis and being closely monitored. Patient remains in the ICU and currently intubated and sedated with an FiO2 of 70% and PEEP is 18. 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 Patient did have a venous Doppler study done recently which showed left leg DVT and patient is maintained on Eliquis will continue. Patient also continues on empiric antibiotics and awaiting for sputum culture finalized. Patient was started on IV cefepime and will continue. Patient is also continued on oral dexamethasone along with vitamin and zinc supplements and will continue. Patient with some mild volume overload and given a dose of IV L asix push today. 11/03/2021 Patient is seen in follow-up this morning and continues to be closely monitored in the ICU with multiple medical consultations following. Per nursing staff working on weaning sedation and is currently off propofol to assess and no responses noted and patient is not following commands. FiO2 titrated down to 45% with a PEEP of 14 and currently on Precedex for hypertension. Chest xray shows stable scattered interstitial and alveolar infiltrates throughout both lung patterson that persist and are unchanged. Potassium is low at 3.3 and will replace per protocol and recommend repeat labs. 11/04/2021 Patient is seen and evaluated today and continues to be in critical condition. Continued right chest tubes x2 and chest xray today shows some increase in size of the pneumothorax on the right. Patient is off sedation since yesterday and does not respond to commands only painful stimuli. CT brain ordered and pending. Patient currently on precidex and having multiple issues with blood pressure. Code status was changed to no code by family today. Patient continues on vent and FI02 is 50% with a peep of 14. Overall prognosis is extremely poor and guarded. 11/05/2021 Patient continues in the ICU being closely monitored. Fi02 is 50% with a peep of 14. Patient also continues with 2 right side chest tubes with chest xray showing possible slight improvement in the size of right side pneumothorax and otherwise stable chest. Patient continues on eliquis along with oral prednisone and vitamin and zinc supplements. Patient is off propofol and not following command s. CT brain was negative yesterday. 11/06/2021 Patient with bilateral pneumonia and acute hypoxic respiratory failure requiring intubation and mechanical ventilation with pulmonary/critical care team following him closely and help with vent management. Patient has prolonged course in the hospital and intensive care unit. And his courses marked by several complications including bilateral pneumothoraces status post chest tubes, more on the right side. New-onset A. 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 His condition remains critical. Distal hypoxic requiring high FiO2 50%, his blood pressure is borderline 80/53, he had no fever today but yesterday his temperature was found and draped. He is tachypneic and 28. He is kept on Eliquis 5 mg, prednisone 60 mg, normal saline 50 mg as well as vitamin C, D and zinc. He is also on Protonix and Cardizem 30 mg 4 times a day 11/07/2021 Patient remains intubated on mechanical ventilation with pulmonary/critical care team following her closely and help with her ICU management and vent management. Patient still tachypneic, tachycardic and low-grade fever of 100.2. Blood pr essure is a stable on pressors were discontinued. WBC is 16.2, hemoglobin 9. She has sputum culture showing Corynebacterium but repeat sputum culture is pending. Chest x-ray showing small right pneumothorax and similar diffuse bilateral ground glass opacity. She remains on Eliquis 5 mg, prednisone, normal saline at 50 and vitamins. Antibiotics were discontinued by pulmonary/critical care team and they recommended to keep monitoring while she is off antibiotics. She has DO NOT RESUSCITATE order. Family 11/08/2021 Patient is still in critical condition in the ICU with pulmonary/critical care t eam followed closely and help with vent management and critical care management. Patient was noticed to be still weak all over and drowsy, her weakness was thought to be more on the left side, therefore neurological consult was obtained patient was diagnosed with critical illness myopathy/neuropathy plus toxic/metabolic encephalopathy partly related to medication therefore surgical dose lowered 50 down to 25 twice a day. Patient with low-grade fever, FiO2 of 50%, blood pressure is stable, slightly tachycardic and tachypneic. Labs show leukocytosis 14.3 and hemoglobin 9.2. Chest x-ray showing decreased pneumothorax 5-10% after placement of chest tube on the right side by cardiothoracic surgery team consulted today also there is diffuse subcutaneous edema which looks stable. Patient remains on Eliquis 5 mg, prednisone 60 mg, vitamins on normal saline at 50 mL per hour 11/09/2021 Patient still on the critical care unit requiring special attention with tracheostomy placed yesterday status post mechanical ventilation with pulmonary/critical care team followed closely and help with vent management. Today patient is afebrile, tachycardia improved still tachypneic blood pressure is stable, FiO2 stable at 50%. Left unstable leukocytosis 14.3, hemoglobin 8.2. Chest x-ray showing 3 chest tubes on the right side with lateral component of the pneumothorax is slightly worse by 4 mm and there is diffuse interstitial and groundglass changes. Remains on Eliquis 5 mg, multiple vitamins, prednisone lowered to 40 mg and still on normal saline at 50 mL/h No sedation trial today 11/10/2021 Patient remains in the ICU on mechanical ventilation in a critical condition. She is status post tracheostomy. With pulmonary/critical care team following her closely and help with vent management and critical care management. Patient is tachycardic and tachypneic, blood pressure is stable. She has FiO2 of 50%. Leukocytosis of 15,000, hemoglobin 8.9. Showing bilateral infiltrates Patient remains on Eliquis 5 mg, prednisone 40 mg, increase normal saline 100 mL per hour. Continue with multiple vitamins. 2 chest tubes have been removed and the apical [address] 11/11/21 Patient remains in the ICU in critical condition with mechanical ventilation, and his been monitored closely. A still tachycardic with heart rate 114 tachypneic with respiratory rate 30, afebrile, blood pressure is a stable. And FiO2 of 50%. WBCs 13,000, hemoglobin 8.3, Chest x-ray showing only 1 right-sided chest tube and diffuse interstitial ground glass opacity. Patient remains on Eliquis 5 mg, prednisone lowered to 30 mg, normal saline At 50 mL per hour, him is on multiple vitamins. His antihypertensive medication will be adjusted today. Objective - Vital Signs Vital signs: Vital Signs Temp 98.4 F 11/11/21 20:00 Pulse 99 11/11/21 20:00 Resp 30 H 11/11/21 20:00 BP 128/81 11/11/21 20:00 Pulse Ox 97 11/11/21 20:00 Intake & Output 11/11/21 11/11/21 11/12/21 06:59 18:59 06:59 Intake Total 2369.938 6737.881 216 Output Total 1802 1335 450 Balance -263.238 48.881 -234 Weight 96.2 kg Intake: IV 700 550 100 Sodium Chloride 0.9% 1, 700 550 100 000 ml @ 50 mls/hr IV . Q20H [facility] Rx#:[id number] Intake, IV Titration 150.762 153.881 Amount Dexmedetomidine/0.9% NaCl 150.762 153.881 (Pmx) 400 mcg In Empty Bag 1 bag @ 0.2 MCG/KG/HR 4.665 mls/hr IV .[id number] [facility] Rx#:[id number] Tube Feeding 598 590 116 Other 90 90 Output: Chest Tube Drainage 82 40 Chest Tube Right Upper 82 40 Anterior Chest Urine 1720 1335 410 Other: Voiding Method Indwelling Catheter Indwelling Catheter Indwelling Catheter ABP, PAP, CO, CI - Last Documented Arterial Blood Pressure 120/111 - Exam -GENERAL: The patient is intubated status post tracheostomy. Patient generally weak HEENT: Pupils are round and equally reacting to light. EOMI. No scleral icterus. No conjunctival pallor. Normocephalic, atraumatic. No pharyngeal erythema. No thyromegaly. CARDIOVASCULAR: S1 and S2 present. No murmurs, rubs, or gallops. -PULMONARY: Bilateral decreased breath sounds with bilateral crepitation ABDOMEN: Soft, nontender, nondistended, normoactive bowel sounds. No palpable organomegaly. MUSCULOSKELETAL: No joint swelling or deformity. EXTREMITIES: No cyanosis, clubbing, or pedal edema. -NEUROLOGICAL: Gross neurological examination did not reveal any focal deficits. General awake, more on the left side SKIN: No rashes. no petechiae. - Labs CBC & Chem 7: 11/11/21 06:48 11/11/21 06:48 Labs: Abnormal Lab Results - Last 24 Hours (Table) 11/10/21 11/11/21 11/11/21 Range/Units 23:34 05:44 06:48 WBC 13.4 H (3.8-10.6) k/uL RBC 2.99 L (3.80-5.40) m/uL Hgb 8.3 L (11.4-16.0) gm/dL Hct 28.1 L (34.0-46.0) % MCHC 29.4 L (31.0-37.0) g/dL RDW 16.2 H (11.5-15.5) % Neutrophils # 9.9 H (1.3-7.7) k/uL Carbon Dioxide (22-30) mmol/L BUN (7-17) mg/dL Creatinine (0.52-1.04) mg/dL Glucose (74-99) mg/dL POC Glucose (mg/dL) 130 H 129 H (75-99) mg/dL 11/11/21 11/11/21 11/11/21 Range/Units 06:48 11:56 17:56 WBC (3.8-10.6) k/uL RBC (3.80-5.40) m/uL Hgb (11.4-16.0) gm/dL Hct (34.0-46.0) % MCHC (31.0-37.0) g/dL RDW (11.5-15.5) % Neutrophils # (1.3-7.7) k/uL Carbon Dioxide 33 H (22-30) mmol/L BUN 24 H (7-17) mg/dL Creatinine 0.27 L (0.52-1.04) mg/dL Glucose 127 H (74-99) mg/dL POC Glucose (mg/dL) 230 H 213 H (75-99) mg/dL Microbiology - Last 24 Hours (Table) 11/07/21 11:35 Blood Culture - Preliminary Blood No Growth after 96 hours 11/07/21 10:20 Blood Culture - Preliminary Blood No Growth after 96 hours Assessment and Plan Assessment: Acute COVID-19 infection with acute COVID-19 bilateral interstitial pneumonia with hypoxic hypercarbic respiratory failure on mechanical vent status post trach and peg tube placement on 10/14/2021 Worsening right side pneumothorax status post chest tube placement and thoravent removal on 10/29/2021 Right pneumothorax status post chest tube placement Critical illness myopathy and neuropathy Atrial fibrillation, new onset, currently rate controlled on metoprolol and cardizem Non-sustained ventricular tachycardia, currently sinus Acute left leg deep vein thrombosis Primary hypercoagulable state and factor V deficiency Obesity with a body mass index of 36.0 DVT prophylaxis: on Eliquis No code Plan: This is a pleasant 61 years old female with covert pneumonia, hypoxia, DVT and A. fib. Continue with multiple vitamins and prednisone 60 mg Continue with gentle hydration normal saline 50 ml per hour [facility] on [facility]. Neurology consult, vascular surgery consult Labs and medication were reviewed.. Continue same treatment. Continue with symptomatic treatment. Resume home medication. Monitor lytes and vitals. DVT and GI prophylaxis. Further recommendations as per clinical course of the patient DVT prophylaxis: Eliquis GI Prophylaxis: Ppi Prognosis is extremely guarded
[2021-11-11 23:35] LABS: Glucose,Whole Blood 122 mg/dL (75-99)
[2021-11-12] MEDS: DEXMEDETOMIDINE/0.9% NACL(PMX) 400 MCG in EMPTY BAG 1 BAG IV SCH ×3 (01:09→18:33)
[2021-11-12] MEDS: LORazepam 2 MG/ML INJ IV PRN ×3 (02:46→16:47)
[2021-11-12] MEDS: HYDROmorphone 1 MG/ML 1 ML SYRINGE IVP PRN ×2 (05:45→14:34)
[2021-11-12 06:14] LABS: Glucose,Whole Blood 140 mg/dL (75-99)
[2021-11-12] MEDS: INSULIN ASPART (NovoLOG) 100 UNIT/ML VIAL SQ SCH ×3 (06:21→18:33)
--- NOTE | 2021-11-12 07:31 | XR ---
EXAMINATION TYPE: XR chest 1V portable DATE OF EXAM: 11/12/2021 COMPARISON: 11/11/2021 HISTORY: SOB, Follow Up FINDINGS: Right-sided chest tube is in place. There is an approximate 10% pneumothorax on the right. Small amou nt of subcutaneous emphysema noted. Scattered reticulonodular infiltrates persist throughout both lung patterson. Stable appearance of the cardio-mediastinal structures at this time. IMPRESSION: 1. There is an approximate 10% pneumothorax on the right.
[2021-11-12 08:01] LABS: Methylmalonic Acid 0.45 umol/L (<0.40)
[2021-11-12] MEDS: NYSTATIN 100,000 UNIT/ML SUSP 500,000 UNIT/5 ML CUP PO SCH ×4 (08:46→21:25)
[2021-11-12] MEDS: PANTOPRAZOLE 40 MG/10 ML VIAL IV SCH (08:46)
[2021-11-12] MEDS: METOPROLOL TARTRATE 50 MG TAB PO SCH ×2 (08:47→20:31)
[2021-11-12] MEDS: POTASSIUM BICARBONATE/CIT AC 20 MEQ TABLET.EFF PO SCH ×3 (08:47→21:25)
[2021-11-12] MEDS: amLODIPine 5 MG TAB PO SCH (08:48)
[2021-11-12] MEDS: ZINC SULFATE 220 MG CAP PO SCH (08:48)
[2021-11-12] MEDS: FOLIC ACID 1 MG TAB PO SCH (08:48)
[2021-11-12] MEDS: APIXABAN 5 MG TAB PO SCH ×2 (08:48→20:31)
[2021-11-12] MEDS: QUEtiapine 50 MG TAB PO SCH ×2 (08:48→20:32)
[2021-11-12] MEDS: LOSARTAN 50 MG TAB PO SCH (08:48)
[2021-11-12] MEDS: ASCORBIC ACID 500 MG TAB PO SCH ×2 (08:48→20:31)
[2021-11-12] MEDS ORDERED: predniSONE 10 MG TAB PO SCH (09:00)
--- NOTE | 2021-11-12 09:14 | P.PN ---
Subjective Progress Note Date: 11/12/21 Principal diagnosis: Continued right-sided pneumothorax despite chest tube placement, acute hypoxic respiratory failure requiring mechanical ventilation, covid pneumonia on admissi on, remains unvaccinated against COVID-19, leukocytosis with low-grade fever, acute DVT to left lower extremity this admission on Eliquis, with history of prior DVT, new diagnosis of paroxysmal atrial fibrillation this admission. Past medical history significant for factor V leiden disorder on Coumadin at home. The patient was seen in follow-up today 11/12/2021 at her bedside in the intensive care unit. Currently the patient is laying in bed with her head elevated, trach is midline and remains with mechanical ventilator support. The patient does open up her eyes with verbal stimuli and will follow some simple commands with wiggling her fingers and wiggling her toes only to her right foot. Right anterior chest tube remains in place to low continuous wall suction -20 cm H2O. Continuous air leak is present. Chest x-ray this morning shows a 10% right apical pneumothorax. Objective - Vital Signs Vital signs: Vital Signs Temp 99.8 F H 11/12/21 06:00 Pulse 99 11/12/21 07:00 Resp 30 H 11/12/21 07:00 BP 113/62 11/12/21 07:00 Pulse Ox 95 11/12/21 07:00 Intake & Output 11/11/21 11/12/21 11/12/21 18:59 06:59 18:59 Intake Total 8516.783 7003.151 108 Output Total 1335 1275 Balance 48.881 279.151 108 Weight 90 kg Intake: IV 550 600 50 Sodium Chloride 0.9% 1, 550 600 50 000 ml @ 50 mls/hr IV . Q20H [facility] Rx#:[id number] Intake, IV Titration 153.881 168.151 Amount Dexmedetomidine/0.9% NaCl 153.881 168.151 (Pmx) 400 mcg In Empty Bag 1 bag @ 0.2 MCG/KG/HR 4.665 mls/hr IV .[id number] [facility] Rx#:[id number] Tube Feeding 590 696 58 Other 90 90 Output: Chest Tube Drainage 90 Chest Tube Right Upper 90 Anterior Chest Urine 1335 1185 Other: Voiding Method Indwelling Catheter Indwelling Catheter ABP, PAP, CO, CI - Last Documented Arterial Blood Pressure 120/111 - Exam CONSTITUTIONAL: Appears comfortable, cooperative, no acute distress. RESPIRATORY: Lungs sounds diminished bilaterally. Respirations are symmetrical, and Tachypneic. Tracheostomy tube is midline and intact with mechanical ventilator support, ventilator settings this morning are FiO2 50%, tidal volume 400, respiratory rate 30, peep 10. CARDIOVASCULAR: S1, S2 present. Regular rate and rhythm, sinus rhythm on bedside telemetry. Palpable peripheral pulses bilaterally. Left lower extremity edema present. GASTROINTESTINAL: Abdomen soft, nontender, nondistended. Active bowel sounds present 4 quadrants. Tolerating tube feedings through PEG. GENITOURINARY: Golden present draining clear yellow urine. INTEGUMENTARY: Skin is warm and dry, no clubbing or cyanosis present. NEUROLOGIC: Opens eyes, follows commands, able to wiggle fingers on both hands, wiggles right toes. INVASIVE LINES AND TUBES: Right-sided double-lumen PICC present. Right-sided anterior pleural chest tube present to wall suction, continuous air leak present. - Allied health notes Allied health notes reviewed: nursing - Labs CBC & Chem 7: 11/11/21 06:48 11/11/21 06:48 Labs: Abnormal Lab Results - Last 24 Hours (Table) 11/10/21 11/11/21 11/11/21 Range/Units 11:05 11:56 17:56 POC Glucose (mg/dL) 230 H 213 H (75-99) mg/dL Methylmalonic Acid 0.45 H (<0.40) umol/L 11/11/21 11/12/21 Range/Units 23:33 06:13 POC Glucose (mg/dL) 122 H 140 H (75-99) mg/dL Methylmalonic Acid (<0.40) umol/L Microbiology - Last 24 Hours (Table) 11/07/21 11:35 Blood Culture - Preliminary Blood No Growth after 96 hours 11/07/21 10:20 Blood Culture - Preliminary Blood No Growth after 96 hours - Imaging and Cardiology Chest x-ray: report reviewed, image reviewed Assessment and Plan Assessment: 1. Continued right-sided pneumothorax despite chest tube placement, status post anterior chest tube placement by Dr. Gunn 2. Acute hypoxic respiratory failure requiring mechanical ventilation 3. Covid-19 pneumonia on admission, remains unvaccinated 4. Leukocytosis with low-grade fever 5. Acute DVT to left lower extremity this admission on Eliquis, with history of prior DVT 6. New diagnosis of paroxysmal atrial fibrillation this admission, currently in normal sinus rhythm 7. History of factor V leiden disorder on Coumadin at home 8. Multiple other comorbidities Plan: 1. Continue right pleural chest tube to low continuous wall suction -20 cm H2O, continue to monitor for air leak resolution. 2. Will monitor daily chest x-rays. 3. Ventilator management per pulmonary critical care medicine. 4. Medical management of other comorbidities per primary care. 5. More recommendations to follow based on patient's clinical course. Time with Patient: Greater than 30
--- NOTE | 2021-11-12 09:14 | P.PN ---
Subjective Progress Note Date: 11/11/21 Patient was seen for a follow-up. Patient is sedated with Precedex to calm her down, otherwise she is very anxious. She has incoordination with the ventilator. Patient was also given 0.5 mg Ativan. Patient's mentioned that patient has history of rheumatoid arthritis and has decreased range of motion in the upper limbs, particularly in the hands. She walks by herself, does not use any assistive device. She has limited range of motion of shoulder and hands are worse particularly in this weather. Patient never received any vaccination for [employer]ona wireless. Objective - Vital Signs Vital signs: Vital Signs Temp 99.8 F H 11/12/21 06:00 Pulse 99 11/12/21 07:00 Resp 30 H 11/12/21 07:00 BP 113/62 11/12/21 07:00 Pulse Ox 95 11/12/21 07:00 Intake & Output 11/11/21 11/12/21 11/12/21 18:59 06:59 18:59 Intake Total 5384.145 1215.151 108 Output Total 1335 1275 Balance 48.881 279.151 108 Weight 90 kg Intake: IV 550 600 50 Sodium Chloride 0.9% 1, 550 600 50 000 ml @ 50 mls/hr IV . Q20H [facility] Rx#:[id number] Intake, IV Titration 153.881 168.151 Amount Dexmedetomidine/0.9% NaCl 153.881 168.151 (Pmx) 400 mcg In Empty Bag 1 bag @ 0.2 MCG/KG/HR 4.665 mls/hr IV .[id number] [facility] Rx#:[id number] Tube Feeding 590 696 58 Other 90 90 Output: Chest Tube Drainage 90 Chest Tube Right Upper 90 Anterior Chest Urine 1335 1185 Other: Voiding Method Indwelling Catheter Indwelling Catheter ABP, PAP, CO, CI - Last Documented Arterial Blood Pressure 120/111 - Exam 11/11/2021: Patient is sedated with Precedex. Her pupils are round and reacting. I was able to elicit reflexes better when she was sleeping. Her biceps reflexes are trace, triceps 1, brachioradialis 0, knees 0, ankles 0. Plantars flat. 11/10/2021: Patient is very alert and awake. She has tracheostomy. She is on ventilator. Patient appears severely generalized weak. Patient's pupils are round and reacting. Extraocular muscles are intact. Her face is symmetric. Her hearing appears normal. Patient is quadriplegic. Her caul fat puller on the right is further decreased as compared to yesterday. Her right toe and foot wiggling is also decreased as compared to yesterday and left arm and leg have no movement possible. Patient was tender for touch, and any movement. She would continuously moves her mouth saying "ouch ouch" Deep tendon reflexes are (right/left) biceps 0/0, brachioradialis 0/0, triceps 1+/1+, knees 0/0, ankles 0/0, and plantars are flat bilaterally. Patient has significant peripheral edema. - Labs CBC & Chem 7: 11/11/21 06:48 11/11/21 06:48 Labs: Abnormal Lab Results - Last 24 Hours (Table) 11/10/21 11/10/21 11/11/21 Range/Units 11:05 11:05 11:56 POC Glucose (mg/dL) 230 H (75-99) mg/dL Vitamin B6 4 L (5-50) ug/L Methylmalonic Acid 0.45 H (<0.40) umol/L 11/11/21 11/11/21 11/12/21 Range/Units 17:56 23:33 06:13 POC Glucose (mg/dL) 213 H 122 H 140 H (75-99) mg/dL Vitamin B6 (5-50) ug/L Methylmalonic Acid (<0.40) umol/L Microbiology - Last 24 Hours (Table) 11/07/21 11:35 Blood Culture - Preliminary Blood No Growth after 96 hours 11/07/21 10:20 Blood Culture - Preliminary Blood No Growth after 96 hours Assessment and Plan Assessment: * Generalized weakness, 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 Examination shows worsening muscle strength on the right as compared to yesterday. Now becoming more symmetric weakness, consistent with critical illness myopathy/neuropathy. GBS less likely due to preserved triceps reflex bilaterally. * Encephalopathy, improved, but patient appears delirious, very tremulous. * Ventilator-dependent respiratory failure * Status post tracheostomy and PEG placement * Status post Covid-19 pneumonia * Folate deficiency * Rheumatoid Arthritis. * Pneumothorax * Obesity * DVT left leg, currently on anticoagulation with Eliquis. Plan: * Patient will need prolonged therapy. * CT head showed no acute process. * Carotid Doppler showed no significant stenosis. * 2-D echo from 11/01/2021 showed mild concentric LVH. EF is between 55-60%. Aortic valve not well visualized. * B12 586, folate 3.8 (4.4-31), hemoglobin A1c 4.9, CK, aldolase, rheumatoid factor 68. Patient's TSH is normal 1.38. We wull start folate replacement. * Patient currently on Eliquis for her history of DVT.
--- NOTE | 2021-11-12 09:52 | P.PN ---
<Ashley Granado M - Last Filed: 11/12/21 09:52> Subjective Progress Note Date: 11/12/21 Principal diagnosis: Acute hypoxic respiratory failure secondary to COVID-19 pneumonia On 11/01/2021 patient seen in follow-up in the intensive care unit, she remains trached to the ventilator, and sedated, she is currently on assist control with a rate of 26, tidal arm is 350, FiO2 of 70% and PEEP of 14, this morning's blood gas shows pO2 of 72, pCO2 of 63 and pH of 7.41. Today's chest x-ray showing interval increase in the size of small right-sided pneumothorax with apical component of 2.3 cm versus 1.8 cm previously. Bilateral basilar component is now seen measuring 5 mm, there are [address] in place[address] In and there is similar diffuse patchy interstitial opacities. 2 right-sided chest tubes are to wall suction, with no evidence of leak. Patient is sedated with Diprivan and at 75 mics per kilo per minute, fat no added 2.5 mics per kilo per minute, 0.9 normal saline at 10, Cleviprex is up 4 mg per hour. She is on the tube feedings with vital HP at 10 with a goal of 10, is standard water flushes with 30 mL of water every 4 hours. Patient has not been tolerating sedation holidays very well for the past several days and become quite agitated hypertensive, and starts having unstable vital signs. The patient has not had any weaning trials thus far. Today's labs have been reviewed, white blood cell, 7.8, hemoglobin is 9.3, platelet count is 338, sodium is 139, potassium 3.6, chloride is 99, CO2 is 39, BUN is 15, creatinine 0.39. Patient remains on Levaquin, she has had blood and sputum cultures that have shown no growth thus far, sputum Gram stain from 10/30/2021 showed many PMNs, rare epithelial cells, many gram-positive bacilli and few gram-negative bacilli and few gram-positive cocci. She had some low-grade fevers overnight. Patient has been tachycardic in the sinus mechanism with a rate of 125 BPM. She is on oral Cardizem at 30 mg 4 times a day for recent history of runs of A. fib with RVR. She is on Eliquis for anticoagulation. As far as COVID-19 treatment she is on Decadron 4 mg daily she is on multivitamins. Her last set of inflammatory markers back on 10/01/2021 showed LDH within normal limits at 531, and CRP of 2.1. Most recent pro-ca lcitonin from 10/29/2021 was 0.23. Patient has not required any vasopressor support, she is actually been hypertensive and for that reason we will add metoprolol 50 mg twice daily for improved blood pressure control. On 11/02/2021 patient seen in follow-up in the intensive care unit, she remains trached to the ventilator, sedated, currently on assist-control with a rate of 26, tidal M3 50, FiO2 of 55% and PEEP of 14. This morning's blood gas shows pO2 of 150, pCO2 of 67, and pH of 7.37, this was done on FiO2 of 70%, and FiO2 has been decreased down to 55%. Today's chest x-ray shows stable right upper lobe pneumothorax despite [address], persistent multifocal confluent increased opacity consistent with COVID-19 infection, no significant change from one day earlier. Patient is currently sedated with Diprivan at 65 mics per kilo per minute, fentanyl infusion at 2.5 mics per kilo per minute, 0.9 normal saline at a rate of 20 ML per hour, patient is on tube feedings at 10 mL per hour, with a goal of 10. Patient has [address], the medial chest tube has no air leak, remains to wall suction, and more lateral right-sided chest tube has intermittent air leak and remains to wall suction. Patient has been off the Cleviprex since yesterday morning at 10:45 in the morning, patient was placed on metoprolol 50 mg twice daily, and she remains on oral Cardizem 30 mg 4 times daily and Eliquis for new onset atrial fibrillation . Yesterday we had dexamethasone DC'd and place the patient on prednisone 60 mg daily. In addition patient is an +1.3 L net fluid balance over the last 24 hours, and patient will be given a dose of Lasix. Her oxygenation seems to have improved on today's blood gas, and we were able to contact the FiO2 down to 55%. She's had no acute events overnight. The rest of her blood work has been reviewed her white blood cell count is 7.2, hemoglobin is 8.9, platelet count is 304, sodium is 136, potassium is 4.0, chloride is 97, CO2 is 37, B1 is 20 creatinine 0.37. Her sputum culture showed Corynebacterium species, and blood cultures have been negative. Patient has received 5 day course of Levaquin which can be discontinued at this time, her procalcitonin level was negative at 0.23. On November 03, 2021 patient seen in follow-up in intensive care unit. she remains trached to the ventilator, sedated, she is on control with a rate of 26, tidal 350, FiO2 55% and PEEP of 14. This morning's blood gas shows pO2 of 76, pCO2 of 60, and pH of 7.45. Her peak airway pressures 26, and plateau pressure of 30. Today's chest x-ray shows stable portable chest, 2 right-sided chest tubes, right-sided pneumothorax is unchanged compared to yesterday, there are scattered interstitial and alveolar infiltrates throughout both lungs unchanged. Patient is currently sedated on Diprivan at 55 mics per kilo per minute, fentanyl drip has been discontinued, patient has been getting intermittent doses of IV Dilaudid for discomfort. Patient has been hypertensive especially during periods of agitation, and sedation holidays. Yesterday patient was off sedation for 30 minutes, did not follow purposeful command. she did however become agit ated, restless, and her vital signs were becoming unstable, she was very dyssynchronous with the ventilator, and she had to be placed back on sedation. Today's labs have been reviewed, her white blood cell count is 7.8, hemoglobin is 9.3, platelet count is 353, sodium is 139, potassium is 3.3, this is being replaced per protocol, in addition to scheduled doses of K-Lyte 20 in the every 3 times daily, chloride is 98, CO2 39, BUN is 19 creatinine 0.30. Patient is receiving nutrition with vital hypertension at a rate of 47 with a goal of 47 and standard water flushes. She has had no acute events overnight, she still has [address], the medial chest tube is positive for intermittent air leak, and lateral chest tube on the right side shows no air leak. Patient continues on prednisone 60 mg daily, she is on oral Cardizem, and Eliquis for anticoagulation, she remains in A. fib with a controlled rate. On 11/04/2021 patient seen in follow-up in the intensive care, she remains tr ached to the ventilator, she is currently not on any sedation since 4:00 yesterday afternoon. She is on assist-control with a rate of 26, tidal on his 350, FiO2 50% and PEEP of 14, this morning blood gas shows pO2 of 73, pCO2 52 and pH of 7.47. She is currently on no drips other than 0.9 normal saline at a rate of 20 ML per hour, patient has been off all sedation since yesterday 4:00 PM. Yesterday afternoon patient had developed bradycardia, with sinus pauses and the heart rate was down to 38, patient was hypotensive, Precedex was discontinued, and patient had recovered. She has not responded to any verbal stimuli, she grimaces to painful stimuli, does not follow instructions. Today's chest x-ray shows small to moderate size right pneumothorax with slight interval increase in size, currently at 3.7 cm at the apex versus 2.5 cm previously, and cardiomegaly and diffuse groundglass interstitial changes that are similar in appearance to yesterday's chest x-ray. Patient still has 2 right-sided chest tubes in place with intermittent air leaks alternating between the 2. Both chest tubes remained to wall suction. Patient is currently in sinus mechanism, slightly tachycardic with a rate of 115 BPM, currently remains on oral Cardizem 30 mg 4 times a day, Eliquis 5 mg twice a day, Lopressor 50 mg twice a day, she remains on Norvasc 10 mg daily and losartan 12.5 mg daily. Cleviprex has been off since yesterday. Blood pressure seems to be better controlled on today's exam. Patient has been afebrile. She is tolerating tube feedings. Today's labs have been reviewed, white blood cell, 10.5, hemoglobin is 9.4, platelet count is 397, sodium is 140, potassium 3.6, chloride is 101, CO2 36, B1 is 21 creatinine 0.3. The patient's family has been receiving daily updates on nghia aguirre's condition from the nursing staff, at this time they're considering patient's CODE STATUS. Patient has been hospitalized for a total of 42 days, 40 days on the ventilator support. Patient has been maximizing medical treatment, currently she has not shown significant improvement, and has developed multiple complications along the way. Neurologically patient has not woken up, or followed any instructions. We will proceed with CT of the brain without contrast today. Patient's family has been updated by the nursing staff On 11/12/2021 patient seen in follow-up in the intensive care unit, she is awake and she is following simple commands, she is extremely weak, but she is wiggling her toes, and moving her fingers on bilateral upper and lower extremities. She is trached to the ventilator, she is currently on assist control with a rate of 30, TV 400, FiO2 of 50% and PEEP of 10, no blood gas this morning, pulse ox is 92% on the above-mentioned ventilator settings, patient is currently on 0.9 normal saline at a rate of 50 ML per hour, and Precedex is a 0.6 mics per kilo per minute. Today's chest x-ray reveals 10% pneumothorax on the right side, there are scattered reticulonodular infiltrates bilaterally. Right-sided chest tube remains in place with the continuous air leak. Generally patient appears swollen, with 1+ edema in upper and lower extremities. She is in +375 ML net fluid balance over the last 24 hours. Urine output has been in the order of 70- 100 ML per hour. Feeling tube feedings with vital HP at 58 with a goal of 58 and standard water flushes. She has been tolerating tube feedings quite well via PEG tube. Patient has a tracheostomy, #8 Shiley. Trach site is clean dry and intact, covered with a dressing. Patient remains on oral anticoagulation with Eliquis for a diagnosis of DVT diagnosed during this admission, she is currently on prednisone 30 mg daily, she is on amlodipine, Cozaar and metoprolol for blood pressure control. Her blood pressure has been well-controlled, and patient has not required clevidipine infusion. She is receiving as needed doses of lorazepam 0.5 mg every 6 hours and Dilaudid 1 mg every 3 hours for anxiety and generalized discomfort. Precedex drip has been initiated and continued in an effort to improve anxiety, patient is also on Seroquel 50 mg twice daily. Patient is following all commands, she is not an her head appropriately, she is mouthing some simple verbal responses, but she is anxious,, and tachypneic. Generally she is quite weak, physical therapy is on board, working with the patient Objective - Vital Signs Vital signs: Vital Signs Temp 99.8 F H 11/12/21 06:00 Pulse 99 11/12/21 07:00 Resp 30 H 11/12/21 07:00 BP 113/62 11/12/21 07:00 Pulse Ox 95 11/12/21 07:00 Intake & Output 11/11/21 11/12/21 11/12/21 18:59 06:59 18:59 Intake Total 7081.228 3330.151 108 Output Total 1335 1275 Balance 48.881 279.151 108 Weight 90 kg Intake: IV 550 600 50 Sodium Chloride 0.9% 1, 550 600 50 000 ml @ 50 mls/hr IV . Q20H [facility] Rx#:[id number] Intake, IV Titration 153.881 168.151 Amount Dexmedetomidine/0.9% NaCl 153.881 168.151 (Pmx) 400 mcg In Empty Bag 1 bag @ 0.2 MCG/KG/HR 4.665 mls/hr IV .[id number] [facility] Rx#:[id number] Tube Feeding 590 696 58 Other 90 90 Output: Chest Tube Drainage 90 Chest Tube Right Upper 90 Anterior Chest Urine 1335 1185 Other: Voiding Method Indwelling Catheter Indwelling Catheter ABP, PAP, CO, CI - Last Documented Arterial Blood Pressure 120/111 - Exam GENERAL EXAM: Awake and follows simple command, trached to the ventilator, on assist control mode of ventilation with a rate of 30, tidal volume 400, FiO2 of 50% and PEEP of 10, 61-year-old white female, tachypneic and anxious. Currently on low dose of Precedex HEAD: Normocephalic/atraumatic. EYES: Normal reaction of pupils, equal size. Conjunctiva pink, sclera white. NOSE: Clear with pink turbinates. THROAT: No erythema or exudates. NECK: No masses, no JVD, no thyroid enlargement, no adenopathy. CHEST: No chest wall deformity. Symmetrical expansion. 1 right-sided chest tubes in place, there is continous air leak from right-sided chest tube LUNGS: Equal air entry with no crackles, wheeze, rhonchi or dullness. CVS: Irregular rate and rhythm, normal S1 and S2, no gallops, no murmurs, no rubs ABDOMEN: Soft, nontender. No hepatosplenomegaly, normal bowel sounds, no guarding or rigidity. PEG tube in place with tube feedings infusing with vital HP at a rate of 10 with a goal of 10 EXTREMITIES: No clubbing, significant gen edema, no cyanosis, 2+ pulses and upper and lower extremities. MUSCULOSKELETAL: Muscle strength and tone extremely weak SPINE: No scoliosis or deformity SKIN: No rashes CENTRAL NERVOUS SYSTEM:Awke and alert, trached to the ventilator, Follows simple command. No focal deficits, tone is normal in all 4 extremities. - Labs CBC & Chem 7: 11/11/21 06:48 11/11/21 06:48 Labs: Abnormal Lab Results - Last 24 Hours (Table) 11/10/21 11/10/21 11/11/21 Range/Units 11:05 11:05 11:56 POC Glucose (mg/dL) 230 H (75-99) mg/dL Vitamin B6 4 L (5-50) ug/L Methylmalonic Acid 0.45 H (<0.40) umol/L 11/11/21 11/11/21 11/12/21 Range/Units 17:56 23:33 06:13 POC Glucose (mg/dL) 213 H 122 H 140 H (75-99) mg/dL Vitamin B6 (5-50) ug/L Methylmalonic Acid (<0.40) umol/L Microbiology - Last 24 Hours (Table) 11/07/21 11:35 Blood Culture - Preliminary Blood No Growth after 96 hours 11/07/21 10:20 Blood Culture - Preliminary Blood No Growth after 96 hours Assessment and Plan Plan: Assessment: #1. Acute hypoxic respiratory failure related to COVID-19 pneumonia complicated with ARDS. Patient was intubated and on 09/25/2021, status post tracheostomy and PEG tube placement on 10/14/2021. On 11/12/2021 patient remains trached to vent, AC 30, TV On 11/04/2021 patient has been off sedation for 18 hours, remains comatose, does not follow instructions. On 11/12/2021 mental status has improved, patient is awake and follows simple command #2. Episode of bradycardia, sinus pause, possibly related to Precedex, recovered. Precedex has been discontinued, currently re-started for anxiety #3. Altered mental status, acute hypoxic and possibly metabolic encephalopathy, rule out possibility of CVA. Brain CT without contrast shows no acute abnormality, neurology following #4. Bilateral pneumothoraces requiring bilateral chest tube placements, with subsequent removal and recurrence of right-sided pneumothorax, requiring place ment of another chest tube on the right, and subsequent Thoravent placement on 10/25/2021, and subsequent removal of the Thoravent on 10/29/2021 and placement of another right-sided chest tube on 10/29/2021. Today on 11/01/2021 patient has slightly increased right apical and lateral pneumothorax, please refer to the chest x-ray report, apical pneumothorax measuring 2.3 cm and lateral pneumothorax on the right at 5 mm. Patient had yet another chest tube put in on the right by the CT surgery in view of continued right lung pneumothorax. The two other chest tubes had been removed #5. Acute deep vein thrombosis on Eliquis #6. New-onset A. fib on 10/31/2021, currently in sinus, patient was on Cardizem drip, now on oral Cardizem, remains on Eliquis, currently in sinus rhythm #7. Subcutaneous emphysema resolved #8. Prior history of DVT #9. Possible superinfection with bacterial pneumonia, currently on Levaquin, so far culture data is negative, awaiting final report on the sputum culture from 10/29/2021 #10. Mildly elevated liver enzymes secondary to COVID-19 #11. Nonsustained ventricular tachycardia resolved #12. History of fibromyalgia #13. Suspect underlying delirium, patient has not been tolerating sedation holidays, patient has been started on Seroquel 50 mg twice a day Plan: Today's chest x-ray, and labs reviewed Continue with current ventilator settings, FiO2 is currently down to 50%, Today's chest x-ray shows persistent right-sided apical pneumothorax of 10% Chest tubes remain in place, continue to wall suction, there is a continuous air leak Continue current dose prednisone, give Lasix 40 mg daily IV fluids to KVO Continue nutritional support Physical therapy to continue treating Continue close monitoring in intensive care unit Continue Precedex for anxiety Follow-up labs, chest x-ray in the morning [facility] following for possible LTAC placement I performed a history & physical examination of the patient and discussed their management with my nurse practitioner, Ashley Granado. I reviewed the nurse practitioner's note and agree with the documented findings and plan of care. Lung sounds are positive for dim breath sounds throughout the lung patterson. The findings and the impression was discussed with the patient. I attest to the documentation by the nurse practitioner. I have personally seen and examined the patient, performed the documentation and the assessment and plan as written. Number of minutes spent on the visit: [20] Time with Patient: Greater than 30 <Armen Harris - Last Filed: 11/12/21 18:52> Objective - Vital Signs Vital signs: Vital Signs Temp 99.9 F H 11/12/21 16:00 Pulse 111 H 11/12/21 18:00 Resp 34 H 11/12/21 18:00 BP 121/64 11/12/21 18:00 Pulse Ox 97 11/12/21 18:00 Intake & Output 11/11/21 11/12/21 11/12/21 18:59 06:59 18:59 Intake Total 8067.263 4059.151 1061.849 Output Total 1335 1275 2880 Balance 48.881 279.151 -1818.151 Weight 90 kg 90 kg Intake: IV 550 600 290 Sodium Chloride 0.9% 1, 550 600 290 000 ml @ 10 mls/hr IV . Q24H [facility] Rx#:[id number] Intake, IV Titration 153.881 168.151 131.849 Amount Dexmedetomidine/0.9% NaCl 153.881 168.151 131.849 (Pmx) 400 mcg In Empty Bag 1 bag @ 0.2 MCG/KG/HR 4.665 mls/hr IV .[id number] [facility] Rx#:[id number] Tube Feeding 590 086 580 Other 90 90 60 Output: Chest Tube Drainage 90 50 Chest Tube Right Upper 90 50 Anterior Chest Urine 1335 1185 2830 Other: Voiding Method Indwelling Catheter Indwelling Catheter Indwelling Catheter ABP, PAP, CO, CI - Last Documented Arterial Blood Pressure 120/111 - Labs CBC & Chem 7: 11/11/21 06:48 11/11/21 06:48 Labs: Abnormal Lab Results - Last 24 Hours (Table) 11/10/21 11/10/21 11/11/21 Range/Units 11:05 11:05 23:33 POC Glucose (mg/dL) 122 H (75-99) mg/dL Vitamin B6 4 L (5-50) ug/L Methylmalonic Acid 0.45 H (<0.40) umol/L 11/12/21 11/12/21 11/12/21 Range/Units 06:13 11:51 18:25 POC Glucose (mg/dL) 140 H 223 H 180 H (75-99) mg/dL Vitamin B6 (5-50) ug/L Methylmalonic Acid (<0.40) umol/L Microbiology - Last 24 Hours (Table) 11/07/21 11:35 Blood Culture - Preliminary Blood No Growth after 120 hours 11/07/21 10:20 Blood Culture - Preliminary Blood No Growth after 120 hours Assessment and Plan Plan: This is a critically care evaluation that was done in conjunction with the nurse practitioner. This evaluation was done and more than 40 minutes. I also met the patient's and updated the patient's family on her condition. The patient continues to have patient with respiratory failure. The patient remains on a mechanical ventilator. She is not ready for weaning yet. She continues to have persistent air leak and the right-sided chest tube is showing a persistent air leak and there is still a persistent pneumothorax on today's chest x-ray. The patient will be kept in ICU. We'll start the patient on Lasix. I reviewed those will be kept at KVO. Continue to coagulation with Eliquis 5 mg by mouth twice a day. Precedex only for agitation and increased anxiety. Rest of the treatment will be kept unchanged patient is already on cervical 50 mg by mouth twice a day and this will be kept and use Ativan only on an as-needed basis. IV fluids are currently at KVO. Lasix will be started for the grams IV every 24 hours to offer this patient a negative fluid balance. We'll continue to follow. Time with Patient: Greater than 30
[2021-11-12] MEDS ORDERED: FUROSEMIDE 10 MG/ML 4 ML VIAL IV SCH (10:15)
[2021-11-12 11:53] LABS: Glucose,Whole Blood 223 mg/dL (75-99)
[2021-11-12] MEDS: SODIUM CHLORIDE 0.9% 1,000 ML IV SCH (14:33)
--- NOTE | 2021-11-12 16:18 | CONS ---
CONSULTATION DATE OF SERVICE: 11/08/21 I have seen, examined, and agree with the midlevel's findings. I met with this patient for 45 minutes during this consultation. TORY / FAVIOLA: [id number] / -01
[2021-11-12] MEDS: PYRIDOXINE 50 MG TAB PO SCH (18:26)
[2021-11-12] MEDS: CYANOCOBALAMIN 1,000 MCG/ML 1 ML VIAL IM SCH (18:26)
[2021-11-12 18:27] LABS: Glucose,Whole Blood 180 mg/dL (75-99)
--- NOTE | 2021-11-12 21:30 | P.PN ---
Subjective Progress Note Date: 11/12/21 Patient was seen for a follow-up. Patient is sedated with Precedex 0.6 mg/kg/m to calm her down, otherwise she is very anxious. Patient also getting Dilaudid only one dose every shift. She is aspirating fast on the ventilator otherwise. Patient at present appears sedated. Patient's mentioned that patient has history of rheumatoid arthritis and has decreased range of motion in the upper limbs, particularly in the hands. She walks by herself, does not use any assistive device. She has limited range of motion of shoulder and hands are worse particularly in this weather. Patient never received any vaccination for cardona wireless. Objective - Vital Signs Vital signs: Vital Signs Temp 99.9 F H 11/12/21 16:00 Pulse 95 11/12/21 19:00 Resp 34 H 11/12/21 19:00 BP 109/73 11/12/21 19:00 Pulse Ox 97 11/12/21 19:00 Intake & Output 11/12/21 11/12/21 11/13/21 06:59 18:59 06:59 Intake Total 1008.840 7990.849 Output Total 1275 2880 Balance 279.151 -1818.151 Weight 90 kg 90 kg Intake: IV 600 290 Sodium Chloride 0.9% 1, 600 290 000 ml @ 10 mls/hr IV . Q24H [facility] Rx#:[id number] Intake, IV Titration 168.151 131.849 Amount Dexmedetomidine/0.9% NaCl 168.151 131.849 (Pmx) 400 mcg In Empty Bag 1 bag @ 0.2 MCG/KG/HR 4.665 mls/hr IV .[id number] [facility] Rx#:[id number] Tube Feeding 696 580 Other 90 60 Output: Chest Tube Drainage 90 50 Chest Tube Right Upper 90 50 Anterior Chest Urine 1185 2830 Other: Voiding Method Indwelling Catheter Indwelling Catheter ABP, PAP, CO, CI - Last Documented Arterial Blood Pressure 120/111 - Exam 11/12/2021: Patient sedated with Precedex. Patient able to wiggle her fingers of the left hand. No movement of the right hand. Per report, patient lifted her left arm at the elbow. No movement of the lower extremities. Patient's reflexes continue to be trace at the biceps, 1 at the triceps, absent brachioradialis and in the lower limbs. Patient has peripheral edema. 11/11/2021: Patient is sedated with Precedex. Her pupils are round and reacting. I was able to elicit reflexes better when she was sleeping. Her biceps reflexes are trace, triceps 1, brachioradialis 0, knees 0, ankles 0. Plantars flat. 11/10/2021: Patient is very alert and awake. She has tracheostomy. She is on ventilator. Patient appears severely generalized weak. Patient's pupils are round and reacting. Extraocular muscles are intact. Her face is symmetric. Her hearing appears normal. Patient is quadriplegic. Her apple turner on the right is further decreased as compared to yesterday. Her right toe and foot wiggling is also decreased as compared to yesterday and left arm and leg have no movement possible. Patient was tender for touch, and any movement. She would continuously moves her mouth saying "ouch ouch" Deep tendon reflexes are (right/left) biceps 0/0, brachioradialis 0/0, triceps 1+/1+, knees 0/0, ankles 0/0, and plantars are flat bilaterally. Patient has significant peripheral edema. - Labs CBC & Chem 7: 11/11/21 06:48 11/11/21 06:48 Labs: Abnormal Lab Results - Last 24 Hours (Table) 11/10/21 11/10/21 11/11/21 Range/Units 11:05 11:05 23:33 POC Glucose (mg/dL) 122 H (75-99) mg/dL Vitamin B6 4 L (5-50) ug/L Methylmalonic Acid 0.45 H (<0.40) umol/L 11/12/21 11/12/21 11/12/21 Range/Units 06:13 11:51 18:25 POC Glucose (mg/dL) 140 H 223 H 180 H (75-99) mg/dL Vitamin B6 (5-50) ug/L Methylmalonic Acid (<0.40) umol/L Microbiology - Last 24 Hours (Table) 11/07/21 11:35 Blood Culture - Preliminary Blood No Growth after 120 hours 11/07/21 10:20 Blood Culture - Preliminary Blood No Growth after 120 hours Assessment and Plan Assessment: * Generalized weakness, 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 GBS less likely due to preserved biceps and triceps r eflex bilaterally. * Encephalopathy, improved, but patient appears delirious, very tremulous. * Ventilator-dependent respiratory failure * Status post tracheostomy and PEG placement * Status post Covid-19 pneumonia * B12 deficiency (elevated methylmalonic acid) * Folate deficiency * Vitamin B6 deficiency * Rheumatoid Arthritis. * Pneumothorax * Obesity * DVT left leg, currently on anticoagulation with Eliquis. 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 GBS less likely due to preserved triceps reflex. ?LP could be considered, but patient is on Eliquis for DVT in the right lower extremity. Clinical picture appears more like critical illness myopathy/neuropathy. Patient also has nutritional deficiency with B12, folate and B6 deficiency. * Patient will need prolonged therapy. * CT head showed no acute process. * Carotid Doppler showed no significant stenosis. * 2-D echo from 11/01/2021 showed mild concentric LVH. EF is between 55-60%. Aortic valve not well visualized. * B12 586, methylmalonic acid elevated 0.45 (<0.40), folate 3.8 (4.4-31), vitam in B6 4 (5-50), hemoglobin A1c 4.9, CK 31 normal, aldolase 7.3 normal, rheumatoid factor 68. Patient's TSH is normal 1.38. We will start vitamin B12 injections 1000 g IM for 3 days. Then may take oral B12. We will also start vitamin B6 replacement. Continue folic acid 1 mg daily. * Patient currently on Eliquis for her history of DVT. * Discussed with patient's in detail. He states that patient has rheumatoid arthritis, always needed methotrexate. She has not received her methotrexate since last 2 months. * Dr. Jean-Paul Pope to resume neurology service in the morning.
[2021-11-13 00:26] LABS: Glucose,Whole Blood 141 mg/dL (75-99)
[2021-11-13] MEDS: INSULIN ASPART (NovoLOG) 100 UNIT/ML VIAL SQ SCH ×4 (00:39→18:20)
[2021-11-13] MEDS: DEXMEDETOMIDINE/0.9% NACL(PMX) 400 MCG in EMPTY BAG 1 BAG IV SCH ×3 (02:32→18:24)
[2021-11-13 05:44] LABS: Glucose,Whole Blood 130 mg/dL (75-99)
--- NOTE | 2021-11-13 07:21 | XR ---
EXAMINATION TYPE: XR chest 1V portable DATE OF EXAM: 11/13/2021 COMPARISON: Chest x-ray 11/12/2021 HISTORY: Chest tube, pneumothorax TECHNIQUE: Single frontal view of the chest is obtained. FINDINGS: Bilateral airspace disease is present, lung volumes are low and the patient is rotated. Tr acheostomy tube is overlying the tracheal air column, there is right-sided PICC line with the distal tip is at the cavoatrial junction. Right-sided chest tube remains in place. Apical right pneumothorax persists. Cardiac mediastinal silhouette is stable. There is subcutaneous emphysema. IMPRESSION: There is not a significant interval change. Correlate for pneumonia, stable right pneumo thorax
[2021-11-13] MEDS ORDERED: predniSONE 10 MG TAB PO SCH (08:00)
[2021-11-13 08:35] LABS: African American GFR (CKD) >90 (>60 ml/min/1.73 sqM); Anion Gap 2 mmol/L; Blood Urea Nitrogen 30 mg/dL (7-17); Calcium 8.2 mg/dL (8.4-10.2); Carbon Dioxide 31 mmol/L (22-30); Chloride 104 mmol/L (98-107); Glucose 162 mg/dL (74-99); Non-African American GFR(CKD) >90 (>60 ml/min/1.73 sqM); Potassium 3.6 mmol/L (3.5-5.1); Sodium 137 mmol/L (137-145)
[2021-11-13 08:44] LABS: Anisocytosis Slight; Basophils # (A) 0.1 k/uL (0-0.2); Basophils % (A) 1 %; Eosinophils # (A) 0.1 k/uL (0-0.7); Eosinophils % (A) 1 %; HCT 29.9 % (34.0-46.0); HGB 8.8 gm/dL (11.4-16.0); Hypochromasia Marked; Lymphocytes # (A) 2.4 k/uL (1.0-4.8); Lymphocytes % (A) 17 %; MCH 27.5 pg (25.0-35.0); MCHC 29.5 g/dL (31.0-37.0); MCV 93.1 fL (80.0-100.0); Mean Platelet Volume 8.8; Monocytes # (A) 0.8 k/uL (0-1.0); Monocytes % (A) 6 %; Neutrophils # (A) 10.9 k/uL (1.3-7.7); Neutrophils % (A) 75 %; Platelet Count 330 k/uL (150-450); RBC 3.21 m/uL (3.80-5.40); RDW 16.4 % (11.5-15.5); WBC 14.6 k/uL (3.8-10.6)
[2021-11-13] MEDS: busPIRone HCl 5 MG TAB PO SCH ×2 (09:35→20:17)
[2021-11-13] MEDS: ZINC SULFATE 220 MG CAP PO SCH (09:36)
[2021-11-13] MEDS: ASCORBIC ACID 500 MG TAB PO SCH ×2 (09:36→20:17)
[2021-11-13] MEDS: METOPROLOL TARTRATE 50 MG TAB PO SCH ×2 (09:36→20:17)
[2021-11-13] MEDS: NYSTATIN 100,000 UNIT/ML SUSP 500,000 UNIT/5 ML CUP PO SCH ×4 (09:36→21:05)
[2021-11-13] MEDS: QUEtiapine 50 MG TAB PO SCH ×2 (09:36→20:17)
[2021-11-13] MEDS: POTASSIUM BICARBONATE/CIT AC 20 MEQ TABLET.EFF PO SCH ×3 (09:37→21:05)
[2021-11-13] MEDS: predniSONE 10 MG TAB PO SCH (09:38)
[2021-11-13] MEDS: PANTOPRAZOLE 40 MG/10 ML VIAL IV SCH (09:38)
[2021-11-13] MEDS: FUROSEMIDE 10 MG/ML 4 ML VIAL IV SCH ×2 (09:46→20:18)
[2021-11-13] MEDS: APIXABAN 5 MG TAB PO SCH ×2 (09:52→20:17)
[2021-11-13] MEDS: PYRIDOXINE 50 MG TAB PO SCH (09:52)
[2021-11-13] MEDS: FOLIC ACID 1 MG TAB PO SCH (09:53)
[2021-11-13] MEDS: LOSARTAN 50 MG TAB PO SCH (09:53)
[2021-11-13] MEDS: CYANOCOBALAMIN 1,000 MCG/ML 1 ML VIAL IM SCH (09:54)
[2021-11-13] MEDS: amLODIPine 5 MG TAB PO SCH (09:54)
[2021-11-13] MEDS: LORazepam 2 MG/ML INJ IV PRN (10:54)
[2021-11-13 11:42] LABS: Glucose,Whole Blood 215 mg/dL (75-99)
--- NOTE | 2021-11-13 11:47 | P.PN ---
Subjective Progress Note Date: 11/13/21 Principal diagnosis: Continued right-sided pneumothorax despite chest tube placement, acute hypoxic respiratory failure requiring mechanical ventilation, covid pneumonia on admissi on, remains unvaccinated against COVID-19, leukocytosis with low-grade fever, acute DVT to left lower extremity this admission on Eliquis, with history of prior DVT, new diagnosis of paroxysmal atrial fibrillation this admission. Past medical history significant for factor V leiden disorder on Coumadin at home. The patient was seen in follow-up today 11/13/2021 at her bedside in the intensive care unit. Currently the patient is laying in bed with her head elevated, trach is midline and remains with mechanical ventilator support. The patient continues to open up her eyes with verbal stimuli and will follow some simple commands with wiggling her fingers and wiggling her toes only to her r ight foot. Right anterior chest tube remains in place to low continuous wall suction -20 cm H2O. Continuous air leak is present. Chest x-ray this morning shows a stable right apical pneumothorax. Objective - Vital Signs Vital signs: Vital Signs Temp 98.7 F 11/13/21 04:00 Pulse 101 H 11/13/21 07:00 Resp 43 H 11/13/21 07:00 BP 126/79 11/13/21 07:00 Pulse Ox 96 11/13/21 07:00 Intake & Output 11/12/21 11/13/21 11/13/21 18:59 06:59 18:59 Intake Total 3799.419 9263 100 Output Total 2880 720 Balance -1818.151 286 100 Weight 90 kg 92 kg Intake: IV 290 120 Sodium Chloride 0.9% 1, 290 120 000 ml @ 10 mls/hr IV . Q24H [facility] Rx#:[id number] Intake, IV Titration 131.849 100 100 Amount Dexmedetomidine/0.9% NaCl 131.849 100 100 (Pmx) 400 mcg In Empty Bag 1 bag @ 0.2 MCG/KG/HR 4.665 mls/hr IV .[id number] [facility] Rx#:[id number] Tube Feeding 580 696 Other 60 90 Output: Chest Tube Drainage 50 40 Chest Tube Right Upper 50 40 Anterior Chest Urine 2830 680 Other: Voiding Method Indwelling Catheter Indwelling Catheter ABP, PAP, CO, CI - Last Documented Arterial Blood Pressure 120/111 - Exam CONSTITUTIONAL: Appears comfortable, cooperative, no acute distress. RESPIRATORY: Lungs sounds diminished bilaterally. Respirations are symmetrical, and Tachypneic. Tracheostomy tube is midline and intact with mechanical ventilator support, ventilator settings this morning are FiO2 50%, tidal volume 400, respiratory rate 30, peep 10. CARDIOVASCULAR: S1, S2 present. Regular rate and rhythm, sinus rhythm on bedside telemetry. Palpable peripheral pulses bilaterally. Left lower extremity edema present. GASTROINTESTINAL: Abdomen soft, nontender, nondistended. Active bowel sounds present 4 quadrants. Tolerating tube feedings through PEG. GENITOURINARY: Golden present draining clear yellow urine. INTEGUMENTARY: Skin is warm and dry, no clubbing or cyanosis present. NEUROLOGIC: Opens eyes, follows commands, able to wiggle fingers on both hands, wiggles right toes. INVASIVE LINES AND TUBES: Right-sided double-lumen PICC present. Right-sided anterior pleural chest tube present to wall suction, continuous air leak present. - Allied health notes Allied health notes reviewed: nursing - Labs CBC & Chem 7: 11/13/21 08:12 11/13/21 08:12 Labs: Abnormal Lab Results - Last 24 Hours (Table) 11/12/21 11/12/21 11/13/21 Range/Units 11:51 18:25 00:24 WBC (3.8-10.6) k/uL RBC (3.80-5.40) m/uL Hgb (11.4-16.0) gm/dL Hct (34.0-46.0) % MCHC (31.0-37.0) g/dL RDW (11.5-15.5) % Neutrophils # (1.3-7.7) k/uL Carbon Dioxide (22-30) mmol/L BUN (7-17) mg/dL Creatinine (0.52-1.04) mg/dL Glucose (74-99) mg/dL POC Glucose (mg/dL) 223 H 180 H 141 H (75-99) mg/dL Calcium (8.4-10.2) mg/dL 11/13/21 11/13/21 11/13/21 Range/Units 05:43 08:12 08:12 WBC 14.6 H (3.8-10.6) k/uL RBC 3.21 L (3.80-5.40) m/uL Hgb 8.8 L (11.4-16.0) gm/dL Hct 29.9 L (34.0-46.0) % MCHC 29.5 L (31.0-37.0) g/dL RDW 16.4 H (11.5-15.5) % Neutrophils # 10.9 H (1.3-7.7) k/uL Carbon Dioxide 31 H (22-30) mmol/L BUN 30 H (7-17) mg/dL Creatinine 0.27 L (0.52-1.04) mg/dL Glucose 162 H (74-99) mg/dL POC Glucose (mg/dL) 130 H (75-99) mg/dL Calcium 8.2 L (8.4-10.2) mg/dL 11/13/21 Range/Units 11:40 WBC (3.8-10.6) k/uL RBC (3.80-5.40) m/uL Hgb (11.4-16.0) gm/dL Hct (34.0-46.0) % MCHC (31.0-37.0) g/dL RDW (11.5-15.5) % Neutrophils # (1.3-7.7) k/uL Carbon Dioxide (22-30) mmol/L BUN (7-17) mg/dL Creatinine (0.52-1.04) mg/dL Glucose (74-99) mg/dL POC Glucose (mg/dL) 215 H (75-99) mg/dL Calcium (8.4-10.2) mg/dL Microbiology - Last 24 Hours (Table) 11/07/21 11:35 Blood Culture - Preliminary Blood No Growth after 120 hours 11/07/21 10:20 Blood Culture - Preliminary Blood No Growth after 120 hours - Imaging and Cardiology Chest x-ray: report reviewed, image reviewed Assessment and Plan Assessment: 1. Continued right-sided pneumothorax despite chest tube placement, status post anterior chest tube placement by Dr. Gunn 2. Acute hypoxic respiratory failure requiring mechanical ventilation 3. Covid-19 pneumonia on admission, remains unvaccinated 4. Leukocytosis with low-grade fever 5. Acute DVT to left lower extremity this admission on Eliquis, with history of prior DVT 6. New diagnosis of paroxysmal atrial fibrillation this admission, currently in normal sinus rhythm 7. History of factor V leiden disorder on Coumadin at home 8. Multiple other comorbidities Plan: 1. Continue right pleural chest tube to low continuous wall suction -20 cm H2O, continue to monitor for air leak resolution. 2. Will monitor daily chest x-rays. 3. Ventilator management per pulmonary critical care medicine. 4. Medical management of other comorbidities per primary care. 5. More recommendations to follow based on patient's clinical course. Time with Patient: Greater than 30
--- NOTE | 2021-11-13 11:57 | P.PN ---
Subjective Progress Note Date: 11/13/21 On 11/13/2021, the patient is being seen for a follow-up. The patient is anxious. She is awake and arousable and she is following commands. She is able to move her fingers and toes and she remains profoundly weak. She remains ventilator dependent and the patient continues to have a persistent air leak from the right-sided chest tube. Note that on today's chest x-ray, there is a still a 10% pneumothorax in the right apex. Air leak and adjacent chest tube is continuous. The patient remains on a mechanical ventilator and she is on a volume cycled assist-control mode at the rate of 30 with a tidal volume of 400 and FiO2 is currently at 50% with a PEEP of 10. the patient is losing approximately 50 cc with each breath. Nevertheless, she is able to maintain adequate oxygenation. Her pulse ox is above 92% on the monitor. Blood gases not done from today. No significant secretions through her tracheostomy tube. The patient is a number HIDA tracheostomy tube in place. The patient is also on Precedex at 0.6 mcg/kg per minute for restlessness and agitation and increased anxiety. Her overall fluid balance is positive sound 28th disease over the past 24 hours and the patient is receiving Lasix 40 mg IV every 24 hours. He is also receiving tube feeds in the form of vital high protein at the rate of 50 mL an hour. She is tolerating her tube feeds. No abdominal distention. No nausea. No emesis. No fever. She is hemodynamically stable on no pressors. She is afebrile. She is on no antibiotics. She remains on prednisone that needs to be further tapered down. She continues to be quite anxious and this makes her quite tachypneic and tachycardic. No other significant events otherwise overnight. The patient is on long-term anticoagulation with Eliquis 5 mg by mouth twice a day without any signs of bleeding. Objective - Vital Signs Vital signs: Vital Signs Temp 98.7 F 11/13/21 04:00 Pulse 101 H 11/13/21 07:00 Resp 43 H 11/13/21 07:00 BP 126/79 11/13/21 07:00 Pulse Ox 96 11/13/21 07:00 Intake & Output 11/12/21 11/13/21 11/13/21 18:59 06:59 18:59 Intake Total 3713.696 1878 372 Output Total 2880 720 1200 Balance -1818.151 286 -828 Weight 90 kg 92 kg Intake: IV 290 120 40 Sodium Chloride 0.9% 1, 290 120 40 000 ml @ 10 mls/hr IV . Q24H [facility] Rx#:[id number] Intake, IV Titration 131.849 100 100 Amount Dexmedetomidine/0.9% NaCl 131.849 100 100 (Pmx) 400 mcg In Empty Bag 1 bag @ 0.2 MCG/KG/HR 4.665 mls/hr IV .[id number] [facility] Rx#:[id number] Tube Feeding 580 696 232 Other 60 90 Output: Chest Tube Drainage 50 40 Chest Tube Right Upper 50 40 Anterior Chest Urine 2830 680 1200 Other: Voiding Method Indwelling Catheter Indwelling Catheter ABP, PAP, CO, CI - Last Documented Arterial Blood Pressure 120/111 - Exam GENERAL EXAM: Awake and follows simple command, trached to the ventilator, on assist control mode of ventilation with a rate of 30, tidal volume 400, FiO2 of 50% and PEEP of 10, 61-year-old white female, tachypneic and anxious. Currently on low dose of Precedex HEAD: Normocephalic/atraumatic. EYES: Normal reaction of pupils, equal size. Conjunctiva pink, sclera white. NOSE: Clear with pink turbinates. THROAT: No erythema or exudates. NECK: No masses, no JVD, no thyroid enlargement, no adenopathy. CHEST: No chest wall deformity. Symmetrical expansion. 1 right-sided chest tubes in place, there is continous air leak from right-sided chest tube LUNGS: Equal air entry with no crackles, wheeze, rhonchi or dullness. CVS: Irregular rate and rhythm, normal S1 and S2, no gallops, no murmurs, no rubs ABDOMEN: Soft, nontender. No hepatosplenomegaly, normal bowel sounds, no guardi ng or rigidity. PEG tube in place with tube feedings infusing with vital HP at a rate of 10 with a goal of 10 EXTREMITIES: No clubbing, significant gen edema, no cyanosis, 2+ pulses and upper and lower extremities. MUSCULOSKELETAL: Muscle strength and tone extremely weak SPINE: No scoliosis or deformity SKIN: No rashes CENTRAL NERVOUS SYSTEM:Awke and alert, trached to the ventilator, Follows simple command. No focal deficits, tone is normal in all 4 extremities. - Labs CBC & Chem 7: 11/13/21 08:12 11/13/21 08:12 Labs: Abnormal Lab Results - Last 24 Hours (Table) 11/12/21 11/12/21 11/13/21 Range/Units 11:51 18:25 00:24 WBC (3.8-10.6) k/uL RBC (3.80-5.40) m/uL Hgb (11.4-16.0) gm/dL Hct (34.0-46.0) % MCHC (31.0-37.0) g/dL RDW (11.5-15.5) % Neutrophils # (1.3-7.7) k/uL Carbon Dioxide (22-30) mmol/L BUN (7-17) mg/dL Creatinine (0.52-1.04) mg/dL Glucose (74-99) mg/dL POC Glucose (mg/dL) 223 H 180 H 141 H (75-99) mg/dL Calcium (8.4-10.2) mg/dL 11/13/21 11/13/21 11/13/21 Range/Units 05:43 08:12 08:12 WBC 14.6 H (3.8-10.6) k/uL RBC 3.21 L (3.80-5.40) m/uL Hgb 8.8 L (11.4-16.0) gm/dL Hct 29.9 L (34.0-46.0) % MCHC 29.5 L (31.0-37.0) g/dL RDW 16.4 H (11.5-15.5) % Neutrophils # 10.9 H (1.3-7.7) k/uL Carbon Dioxide 31 H (22-30) mmol/L BUN 30 H (7-17) mg/dL Creatinine 0.27 L (0.52-1.04) mg/dL Glucose 162 H (74-99) mg/dL POC Glucose (mg/dL) 130 H (75-99) mg/dL Calcium 8.2 L (8.4-10.2) mg/dL 11/13/21 Range/Units 11:40 WBC (3.8-10.6) k/uL RBC (3.80-5.40) m/uL Hgb (11.4-16.0) gm/dL Hct (34.0-46.0) % MCHC (31.0-37.0) g/dL RDW (11.5-15.5) % Neutrophils # (1.3-7.7) k/uL Carbon Dioxide (22-30) mmol/L BUN (7-17) mg/dL Creatinine (0.52-1.04) mg/dL Glucose (74-99) mg/dL POC Glucose (mg/dL) 215 H (75-99) mg/dL Calcium (8.4-10.2) mg/dL Microbiology - Last 24 Hours (Table) 11/07/21 11:35 Blood Culture - Preliminary Blood No Growth after 120 hours 11/07/21 10:20 Blood Culture - Preliminary Blood No Growth after 120 hours Assessment and Plan Plan: #1. Acute hypoxic respiratory failure related to COVID-19 pneumonia complicated with ARDS. Patient was intubated and on 09/25/2021, status post tracheostomy and PEG tube placement on 10/14/2021. The patient remains ventilator dependent and the patient continues to have a persistent pneumothorax on the right and order of 5-10% and there is persistent air leak on the Pleur-evac. Nevertheless, she has adequate oxygenation and ventilation for now. She remains on a volume cycle assist-control mode of mechanical ventilation. #2. Acute community related pneumonia, still on prednisone which is a part of the burst taper. #3. Generalized motor weakness in all 4 extremities related to critical illness polyneuropathy and myopathy #4. Bilateral pneumothoraces requiring bilateral chest tube placements, with subsequent removal and recurrence of right-sided pneumothorax, requiring placement of another chest tube on the right, and subsequent Thoravent placement on 10/25/2021, and subsequent removal of the Thoravent on 10/29/2021 and placement of another right-sided chest tube on 10/29/2021. The patient is a persistent air leak in the right sided chest tube and there is a persistent pneumothorax on the right and order of 5-10%. Left lung is well expanded for now. #5. Acute deep vein thrombosis on Eliquis, no signs of bleeding #6. New-onset A. fib on 10/31/2021, currently in sinus, patient was on Cardizem drip, now on oral Cardizem, remains on Eliquis, currently in sinus rhythm #7. Subcutaneous emphysema resolved #8. Prior history of DVT #9. Increased anxiety #10. Mildly elevated liver enzymes secondary to COVID-19, recovered #11. Nonsustained ventricular tachycardia resolved #12. History of fibromyalgia #13 chronic anemia, multifactorial, expected outcome of prolonged ICU stay Plan Continue ventilator support No change in the ventilator settings Cut down the prednisone to 10 mg by mouth daily Continue Precedex and the patient is also on Seroquel 50 mg by mouth twice a day. Start the patient on buspirone 15 mg by mouth twice a day. Increase Lasix up to 40 mg IV every 12 hours Continue anticoagulation with Eliquis Continue Precedex and gradually wean it off and use Ativan only as needed IV Protonix Enteral feeding for nutritional support Physical therapy for passive range of motion Condition remains critical and will continue to follow make further accomm odation based on her progress. This critically care evaluation was done and more than 30 minutes. Time with Patient: Greater than 30
--- NOTE | 2021-11-13 11:59 | P.PN ---
Subjective Progress Note Date: 11/13/21 I am seeing the patient for the first time for neurological management. Please refer to Dr. Orellana's notes for further details. Per the patients nurse she is about the same. Per nurse she is following commsivan ds intermittently. She is trached on ventilator. Objective - Vital Signs Vital signs: Vital Signs Temp 98.7 F 11/13/21 04:00 Pulse 101 H 11/13/21 07:00 Resp 43 H 11/13/21 07:00 BP 126/79 11/13/21 07:00 Pulse Ox 96 11/13/21 07:00 Intake & Output 11/12/21 11/13/21 11/13/21 18:59 06:59 18:59 Intake Total 7820.278 0156 100 Output Total 2880 720 Balance -1818.151 286 100 Weight 90 kg 92 kg Intake: IV 290 120 Sodium Chloride 0.9% 1, 290 120 000 ml @ 10 mls/hr IV . Q24H [facility] Rx#:[id number] Intake, IV Titration 131.849 100 100 Amount Dexmedetomidine/0.9% NaCl 131.849 100 100 (Pmx) 400 mcg In Empty Bag 1 bag @ 0.2 MCG/KG/HR 4.665 mls/hr IV .[id number] [facility] Rx#:[id number] Tube Feeding 580 696 Other 60 90 Output: Chest Tube Drainage 50 40 Chest Tube Right Upper 50 40 Anterior Chest Urine 2830 680 Other: Voiding Method Indwelling Catheter Indwelling Catheter ABP, PAP, CO, CI - Last Documented Arterial Blood Pressure 120/111 - Exam GENERAL: The patient is lying in bed and is not in acute distress. LUNG: Trached and on ventilator. INTEGUMENTARY: Edema 1-2+ NEUROLOGICAL: Higher mental function: The patient is awake but at times is drowsy and is aweakable to voice. She is following some commands (sticking tongue out, moving extremities). She is not vocally verbalizing. Cranial nerves: The pupils are round, equal and reactive to light. Visual patterson are hard to assess. EOM is intact looking to right and left and no nystagmus. No facial weakness. Motor: The strength is limited because of her condition. But is able to move the right side better than left. Right hand/finger is 2-3 and right ankle is 3/5. Left fingers/wrist is few episode of flicker of fingers 1-2. Decrease tone throughout. Normal bulk. Sensation: Sensation is normal to touch throughout. WORK-UP: * CT head showed no acute process. * Carotid Doppler showed no significant stenosis. * 2-D echo from 11/01/2021 showed mild concentric LVH. EF is between 55-60%. Aortic valve not well visualized. - Labs CBC & Chem 7: 11/13/21 08:12 11/13/21 08:12 Labs: Abnormal Lab Results - Last 24 Hours (Table) 11/12/21 11/12/21 11/13/21 Range/Units 11:51 18:25 00:24 WBC (3.8-10.6) k/uL RBC (3.80-5.40) m/uL Hgb (11.4-16.0) gm/dL Hct (34.0-46.0) % MCHC (31.0-37.0) g/dL RDW (11.5-15.5) % Neutrophils # (1.3-7.7) k/uL Carbon Dioxide (22-30) mmol/L BUN (7-17) mg/dL Creatinine (0.52-1.04) mg/dL Glucose (74-99) mg/dL POC Glucose (mg/dL) 223 H 180 H 141 H (75-99) mg/dL Calcium (8.4-10.2) mg/dL 11/13/21 11/13/21 11/13/21 Range/Units 05:43 08:12 08:12 WBC 14.6 H (3.8-10.6) k/uL RBC 3.21 L (3.80-5.40) m/uL Hgb 8.8 L (11.4-16.0) gm/dL Hct 29.9 L (34.0-46.0) % MCHC 29.5 L (31.0-37.0) g/dL RDW 16.4 H (11.5-15.5) % Neutrophils # 10.9 H (1.3-7.7) k/uL Carbon Dioxide 31 H (22-30) mmol/L BUN 30 H (7-17) mg/dL Creatinine 0.27 L (0.52-1.04) mg/dL Glucose 162 H (74-99) mg/dL POC Glucose (mg/dL) 130 H (75-99) mg/dL Calcium 8.2 L (8.4-10.2) mg/dL 11/13/21 Range/Units 11:40 WBC (3.8-10.6) k/uL RBC (3.80-5.40) m/uL Hgb (11.4-16.0) gm/dL Hct (34.0-46.0) % MCHC (31.0-37.0) g/dL RDW (11.5-15.5) % Neutrophils # (1.3-7.7) k/uL Carbon Dioxide (22-30) mmol/L BUN (7-17) mg/dL Creatinine (0.52-1.04) mg/dL Glucose (74-99) mg/dL POC Glucose (mg/dL) 215 H (75-99) mg/dL Calcium (8.4-10.2) mg/dL Microbiology - Last 24 Hours (Table) 11/07/21 11:35 Blood Culture - Preliminary Blood No Growth after 120 hours 11/07/21 10:20 Blood Culture - Preliminary Blood No Growth after 120 hours Assessment and Plan Assessment: * Generalized weakness, 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 * Encephalopathy, improving. * Ventilator-dependent respiratory failure * Status post tracheostomy and PEG placement * Status post Covid-19 pneumonia * B12 deficiency (elevated methylmalonic acid) * Folate deficiency * Vitamin B6 deficiency * Rheumatoid Arthritis. * Pneumothorax * Obesity * DVT left leg, currently on anticoagulation with Eliquis. 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 GBS was felt to be low on differential. ?LP could be considered, but patient is on Eliquis for DVT in the right lower extremity. Clinical picture appears more like critical illness myopathy/neuropathy. Patient also has nutritional deficiency with B12, folate and B6 deficiency. * Patient will need prolonged therapy. * B12 586, methylmalonic acid elevated 0.45 (<0.40), folate 3.8 (4.4-31), v itamin B6 4 (5-50), hemoglobin A1c 4.9, CK 31 normal, aldolase 7.3 normal, rheumatoid factor 68. Patient's TSH is normal 1.38. We will start vitamin B12 injections 1000 g IM for total 3 days. Then may take oral B12. We will also start vitamin B6 replacement. Continue folic acid 1 mg daily. * Patient currently on Eliquis for her history of DVT. * Patient has rheumatoid arthritis, always needed methotrexate. She has not received her methotrexate since last 2 months. * Will defer the rest of medical management to the primary and ICU team. Will follow-up with patient sporadically. Jean-Paul Pope M.D. Neuro-Hospitalist Time with Patient: Less than 30
[2021-11-13] MEDS: SODIUM CHLORIDE 0.9% 1,000 ML IV SCH (12:35)
[2021-11-13] MEDS: HYDROmorphone 1 MG/ML 1 ML SYRINGE IVP PRN (14:31)
[2021-11-13 18:00] LABS: Glucose,Whole Blood 167 mg/dL (75-99)
--- NOTE | 2021-11-13 21:41 | P.PN ---
Subjective Progress Note Date: 11/13/21 This is a 61-year-old female who was recently admitted with acute COVID-19 pneumonia with acute COVID-19 bilateral interstitial pneumonia and also with transaminitis and being closely monitored. Patient remains in the ICU and currently intubated and sedated with an FiO2 of 70% and PEEP is 18. 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 Patient did have a venous Doppler study done recently which showed left leg DVT and patient is maintained on Eliquis will continue. Patient also continues on empiric antibiotics and awaiting for sputum culture finalized. Patient was started on IV cefepime and will continue. Patient is also continued on oral dexamethasone along with vitamin and zinc supplements and will continue. Patient with some mild volume overload and given a dose of IV Lasix push today. 09/29/2021 Patient is seen and evaluated this morning continues to be closely monitored in the ICU and continues to be on mechanical ventilation and sedated. FiO2 was increased at 80% with a PEEP of 18 and oxygen saturations between 87-91%. Patient developing subcutaneous emphysema in the neck and chest wall area and chest x-ray today shows bilateral multifocal and confluent opacification is redemonstrated consistent with COVID-19 infection with a new small left apical pneumothorax estimated under 5% with new pneumomediastinum and recurrent overlying subcutaneous emphysema noted. Patient is white blood count mildly elevated at 16.1 and is continued on oral dexamethasone along with oral eliquis for anticoagulation. Patient continues to be on IV cefepime and blood and sputum cultures are negative thus far. 09/30/2021 Patient is seen today continues to be closely monitored in the ICU with multiple medical consultations following. Patient continues to be mechanically intubated and sedated with continued subcutaneous emphysema noted. Chest xray shows a trace left apical pneumothorax that is minimally smaller 7mm versus 1cm previously, extensive bilateral subcutaneous emphysema persists and diffuse interstitial changes and bilateral patchy opacities persist with slight improvement in aeration in the lower lungs. Per nursing staff corbin was clogged with copious amounts of white discharge and will add diflucan and corbin catheter has been changed and draining adequately. Patient continues on IV cefepime. Patient tolerating tube feeds and will continue. 10/01/2021 Patient is seen and evaluated in follow up this morning and continues to be closely monitored. Multiple medical consultations following and patient con tinues to be on mechanical vent and sedated. Patient continues on IV Cefepime and diflucan. Patient chest xray today shows stable extensive subcutaneous emphysema, no pneumothorax, and patchy bilateral lung infiltrates remain present. INflammatory markers trending down. 10/04/2021 Patient is seen in follow-up continues to be closely monitored in the ICU. Patient remains on mechanical vent with an FI02 of 65% and peep is 18. Weaning trials being attempted with pulmonary waiter/waitress dining car following closely. Patient continues with extensive subq emphysema noted on exam. 10/05/2021 Patient Is seen and evaluated this morning with continued attempts at weaning and continues on mechanical vent and intubated with pulmonary waiter/waitress dining car following closely. Patient remains on Eliquis which will be held as surgery Dr. Nelson was consulted for possible PEG and trach tube placement for unsuccessful attempts at weaning from ventilation and prolonged hospitalization on mechanical vent. Chest x-ray today shows recurrent tiny left apical pneumothorax estimated under 5% with worsening overlying subcutaneous emphysema and again pneumomediastinum redemonstrated with multifocal confluent opacification's redemonstrated consistent with COVID-19 infection and/or arts are redemonstrated with no significant change from one day previously. Patient continues on FiO2 of 65% and PEEP was weaned down to 14 today. IV cefepime discontinued. 10/06/2021 Patient is seen in follow-up this morning per nursing staff patient had multiple runs of ectopy an irregular heart rate and rhythms with PVCs and cardiology consulted. Patient was placed on lidocaine drip and was originally on eliquis is currently on hold for possible PEG and trach placement with general surgery following. Patient had difficulty maintaining oxygen saturations and FiO2 was increased to 100% and PEEP continues at 14. Multiple medical consultations following and patient continues on oral steroids along with vitamin and zinc supplements along with fluconazole. Patient being started on IV Lasix daily and recommend close monitoring of electrolytes and kidney functions. 10/07/2021 Patient is seen in follow-up this morning continues to be monitored closely in the ICU with multiple medical consultations following. Patient is currently on mechanical vent with an FiO2 of 80% and PEEP is 16. General surgery also following for possible PEG and trach placement and will need to discuss with surgery about when this will occur. Patient remains on fluconazole. She also continues on vitamin and zinc supplements along with oral dexamethasone, clevidipine, Nimbex, IV Lasix, fentanyl and propofol and is off norepinephrine. Chest x-ray shows stable bilateral lung infiltrates. 10/08/2021 Patient is seen this morning continues to be on mechanical vent with an FiO2 of 85% and PEEP of 16. Patient continues with extensive subcutaneous emphysema and plans are for possible PEG and trach placement although on hold until possibly next week once more stable. Patient continues on Cleviprex along with fentanyl and propofol and is receiving IV Lasix daily. Patient also continues on lidocaine drip which is currently on hold and cardiology is following closely. Anticoagulant was resumed for now again until more stable to undergo PEG and trach placement. Chest x-ray today shows persistent bilateral multifocal and confluent increased opacification is with persistent overlying subcutaneous emphysema noted in pneumomediastinum is again redemonstrated. 10/09/2021 Patient evaluated today in ICU mechanical ventilation with FiO2 of 80%. Chest x-ray this morning shows similar multifocal airspace opacities and stable support lines and tubes. Similar subcutaneous emphysema scattered throughout the visualized thorax. PEG and trach plan for next week once more stable. Current meds include Cleviprex, Nimbex, fentanyl, propofol. She is receiving IV fluconazole, as well as IV Lasix. Levophed and Lidocaine gtt;s are on hold. Positive bowel sounds. Current vitals afebrile, heart rate 71, blood pressure 135/60 and oxygen saturation is 93%. Respirations 30. Labs today, white count 17, hemoglobin 11.6, sodium 139, potassium 3.8, BUN 34, creatinine 0.91, CO2 33, calcium 8.7, ALT 54, albumin 2.8 with blood sugars in the 100s. 10/10/2021 Patient evaluated today in the ICU on the mechanical VENT with fio2 of 100%. Po sitive bowel movement today, Stage 2 pressure ulcer on coccyx per RN, optifoam ordered. Per RN they were unable to patient as she was desaturating. They're unable to wean Fi02 currently as she does desaturate with any time of movement. She was lying more on her right side during evaluation and pulse ox was dropping into high 80s she was being repositioned by nurses. Plan is to PEG/TRACH patient tomorrow. Last family update was 4 days ago. We will call and discuss case today. Patient is afebrile, heart rate 84, respirations 30, blood pressure 141/55, 92% oxygen saturation on 100% Fi02, which was increased today up from 70 Fi02%. Labs today show WBC of 15.6, hgbl 10.7, sodium 138, potassium 3.9, chloride 100, CO2 37, glucose 117, calcium 8.2. Chest xray today shows pneumonia, ARDS. 10/11/2021 Patient is seen and evaluated in follow-up this morning continues to be closely monitored in the ICU and patient is continued on FiO2 of 90% and PEEP is 16 with multiple medical consultations following. Chest x-ray today shows new left- sided pneumothorax estimated 10-20% with overlying subcutaneous emphysema and pneumomediastinum redemonstrated with bilateral multifocal and confluent opac ification's redemonstrated consistent with COVID-19 infection and/or arts and no significant change from one day previous. Patient is status post left chest tube insertion with pulmonary waiter/waitress dining car. Cardiology following and patient is off lidocaine drip and maintaining sinus rhythm. Patient also continues on vitamin and zinc supplements along with oral dexamethasone and patient continues on IV Lasix 40 mg daily. Patient also continues off norepinephrine and is currently maintained on IV cefepime along with fluconazole. General surgery following as well and plan is for peg and trach placement in the am 10/12/2021 Patient is seen in the ICU this morning continues to be closely monitored by multiple medical consultations. Patient was scheduled for PEG and trach placement with general surgery Dr. Nelson today although canceled as patient became hypotensive requiring Levophed along with acute blood loss anemia and hemoglobin dropped to 6.5 this morning requiring 1 unit of PRBC. Patient continues with left chest tube with pneumothorax and chest x-ray today shows the jahaira is difficult to clearly identify on the present exam and the ET tube may be approximately 1 cm from the jahaira and there are bilateral chest tubes present with continued diffuse interstitial opacification is and more focal bibasilar opacification is with subcutaneous emphysema persists along the upper chest with slight improvement on the left. No appreciable pneumothorax noted. Patient having worsening right pleural effusion last night and received a right- sided chest tube with pulmonary waiter/waitress dining car. FiO2 is 90% and PEEP of 16. Again overall prognosis remains extremely poor and guarded. 10/13/2021 Patient is seen in follow-up this morning in the ICU with multiple medical consultations following. Lengthy discussion was had with pulmonary waiter/waitress dining car and family members and would like to continue with full CODE STATUS and plan is in place for PEG tube and tracheostomy placement tomorrow. Anticoagulant on hold and Dr. Nelson plans for surgery tomorrow. Patient continues on oral dexamethasone along with IV cefepime, vitamin and zinc supplements. Patient also continues on Cleviprex and Nimbex. Patient also continues on fentanyl and propofol and will continue. Chest x-ray today shows stable portable chest with bilateral chest tubes without sizable pneumothorax identified and continued subcutaneous air persists with persistent interstitial changes bilaterally with airspace disease in the bilateral lung bases that are unchanged. FiO2 is 60% and PEEP of 16. 10/14/2021 Patient is seen and evaluated in the ICU being closely monitored with multiple medical consultations following. at the bedside today and had detailed discussion with overall prognosis. Plan is to proceed with PEG tube and tracheostomy placement with surgery Dr. Nelson today and anticoagulant continues to be on hold for this procedure. Patient continues on mechanical ventilation with an FiO2 of 70% and PEEP of 16. Chest x-ray today shows improving infiltrate with bibasilar residual and bilateral chest tubes remain present with no pneumothorax evident on either side and again subcutaneous emphysema is noted. 10/15/2021 Patient is seen in the ICU being closely monitored. Patient is status post PEG and trach placement yesterday. Chest x-ray today shows bilateral patchy lung infiltrates greater at the right base with diffuse increased lung markings and bilateral chest tubes remain present and subcutaneous emphysema on the right is diminished. Patient continues with an FI02 of 60 and peep is 16. To resume tube feeds per surgery. Patient continues on norepinephrine and sedation. Patient is receiving IV lasix daily. 10/16/2021 Patient is currently in the MICU and remains on ventilator. Status post tracheostomy and PEG tube placement on 10/14/2021. Patient is sedated and paralyzed. Also on Cleviprex. Chest x-ray showed no acute cardiopulmonary disease with no interval changes. Laboratory data showed WBC 16.9 hemoglobin 8.9 and platelets 278 BUN 19 and creatinine 0.5 and calcium 8.1 patient is being continued on dexamethasone 6 mg daily, Lasix 40 mg IV daily and multivitamins and anticoagulation with Eliquis. Pulmonary and general surgery is on board. 10/17/2021 Patient is in the MICU. Remains on the current ventilator via tracheostomy. Status post tracheostomy and PEG tube placement on 10/14/2021. Sedated and paralyzed and also on fentanyl drip. Currently on assist control with tidal volume of 420, FiO2 80% and PEEP of 16. Respiratory of 30. Chest x-ray showed no interval change in acute cardiopulmonary disease Laboratory data showed WBC 15.8 hemoglobin 8.2 and platelets 271 Sodium 136 potassium 3.1 chloride 100 bicarb is 32 BUN 21 creatinine 0.48 and albumin 2.3 Patient is being continued on Lasix IV, dexamethasone and anticoagulation with Eliquis. 10/18/2021 Patient is seen in follow-up and continues in the ICU with multiple medical consultations following. Patient continues on mechanical vent with an FI02 of 70% and peep is 16. Chest xray shows overall stable exam with interstitial changes and bilateral patchy infiltrates with right greater than left and greater at the bases with bilateral chest tubes noted. no appreciable pneumothorax. Patient continues on propofol and fentanyl along with cleviprex and rocuronium. Eliquis has been resumed. Potassium is 3.3 and will be replaced per protocol. Patient also continues to receive IV lasix daily. 10/19/2021 Patient is seen this morning and continues to be in the ICU with multiple medical consultations following. Patient continues with bilateral chest tubes and remains on mechanical ventilation with an FiO2 of 65% and PEEP is 16. Chest x-ray today shows Bilateral multifocal and confluent opacification greatest in the lower lungs consistent with COVID-19 infection and/or ARDS all redemonst rated with no significant change from one day earlier and continued bilateral chest tubes without pneumothorax redemonstrated. 10/20/2021 Patient continues to be in the ICU under close critical monitoring with multiple medical consultations following. Patient continues with bilateral chest tubes although per nursing staff may possibly discontinued today. Chest x-ray today shows stable portable chest with no change in scattered mixed interstitial and alveolar infiltrates. Patient remains on mechanical ventilation via tracheostomy with an FiO2 of 55% and PEEP is 15. Patient continues on Cleviprex along with rocuronium and sedation. 10/21/2021 Patient continues in the MICU being closely monitored. Chest tubes were removed today and chest xray stable with interstitial changes and basilar ground glass, that is similar to previous with slight improvement. Patient continues on mechanical vent with an FI02 of 70% and peep is 14. Patient remains sedated and per nursing staff working on weaning paralytics. Patient continued on rocuronium. Patient is tolerating tube feeds and also continues on IV lasix daily with generalized edema noted throughout. 10/22/2021 Patient is currently MICU. Patient was taken off paralytic and chest tubes yesterday. Continued on pressure support with PEEP of 13. 88 this morning patient again desaturated. Patient became hypotensive and patient was started on norepinephrine. Chest x-ray showed large pneumothorax on the right. Right chest tube was r einserted. Patient is on pressure control. Remains sedated and mechanically ventilated. Laboratory data showed WBC 13.7 hemoglobin 7.7 and platelets 314 Sodium 140 potassium 3.0 chloride 102 bicarb is 37 BUN 19 and creatinine 0.44 and calcium 8.1 Patient is being continued dexamethasone multivitamins and anticoagulation with Eliquis. Patient is also on IV Lasix. Potassium will be replaced. 10/23/2021 Patient is currently MICU. Patient is on mechanical ventilator via trach tube. Patient developed right-sided tension pneumothorax. Again patient had issues with pneumothorax around 10 PM yesterday. Chest tube has to be replaced. Patient is also requiring pressor support. Off pressors this morning. On pressure support. PEEP of 13 and FiO2 100%. Laboratory data showed WBC 13.7 hemoglobin 7.7 and platelets 314 Sodium 140 potassium 3.0 chloride 102 bicarb is 37 BUN 19 and creatinine 0.44 and calcium 8.1 cultures have been negative. Patient is being current on dexamethasone, Eliquis and also IV Lasix 40 mg daily. 10/24/2021 Patient is currently in the MICU. Currently on mechanical ventilator via tracheal tube. Continue propofol and fentanyl. Remains pressure support with PEEP of 13 FiO2 reduced to 70%. Chest x-ray showed bilateral multifocal and confluent opacities consistent with COVID-19 infection and ARDS are redemonstrated and stable. Right-sided chest tube with small apical pneumothorax estimated 10 to 15% improved from 1 day earlier. Pneumo mediastinum noted. Laboratory data showed WBC 14.2 hemoglobin 7.1 and platelets 317 Sodium 140 potassium 3.2 chloride 104 bicarb is 38 BUN 20 and creatinine 0.46 and calcium 7.8. Patient is being continued on dexamethasone, Eliquis and also on IV Lasix. Currently on multivitamins. 11/13/2021 Patient is currently in the MICU. Awake alert and opening her eyes with verbal stimuli. Continues to be mechanical ventilator via tracheostomy tube. And also right sided chest tube in place.. Chest x-ray showed there is not significant interval change. Correlate for pneumonia. Stable right pneumothorax. Patient is being Precedex due to restlessness Anxiety. Patient is IV Lasix 40 mg twice daily. Tolerating tube feedings. Patient has been afebrile. Currently being continued anticoagulation with El iquis and prednisone 10 mg daily which is being tapered down. Neurology and pulmonary is on board. Current medications reviewed. Review of systems: Unable to obtain as patient is mechanically intubated and sedated Objective - Vital Signs Vital signs: Vital Signs Temp 99.9 F H 11/13/21 08:00 Pulse 93 11/13/21 13:00 Resp 38 H 11/13/21 13:00 BP 104/56 11/13/21 13:00 Pulse Ox 96 11/13/21 13:00 Intake & Output 11/12/21 11/13/21 11/13/21 18:59 06:59 18:59 Intake Total 6881.756 6328 668 Output Total 2880 720 1750 Balance -1818.151 286 -1082 Weight 90 kg 92 kg Intake: IV 290 120 60 Sodium Chloride 0.9% 1, 290 120 60 000 ml @ 10 mls/hr IV . Q24H [facility] Rx#:[id number] Intake, IV Titration 131.849 100 100 Amount Dexmedetomidine/0.9% NaCl 131.849 100 100 (Pmx) 400 mcg In Empty Bag 1 bag @ 0.2 MCG/KG/HR 4.665 mls/hr IV .[id number] [facility] Rx#:[id number] Tube Feeding 580 696 348 Other 60 90 160 Output: Chest Tube Drainage 50 40 Chest Tube Right Upper 50 40 Anterior Chest Urine 2830 680 1750 Other: Voiding Method Indwelling Catheter Indwelling Catheter Indwelling Catheter ABP, PAP, CO, CI - Last Documented Arterial Blood Pressure 120/111 - Exam - Exam -GENERAL: The patient is intubated status post tracheostomy. Patient generally weak HEENT: Pupils are round and equally reacting to light. EOMI. No scleral icterus. No conjunctival pallor. Normocephalic, atraumatic. No pharyngeal erythema. No thyromegaly. CARDIOVASCULAR: S1 and S2 present. No murmurs, rubs, or gallops. -PULMONARY: Bilateral decreased breath sounds with bilateral crepitation ABDOMEN: Soft, nontender, nondistended, normoactive bowel sounds. No palpable organomegaly. MUSCULOSKELETAL: No joint swelling or deformity. EXTREMITIES: No cyanosis, clubbing, or pedal edema. -NEUROLOGICAL: Gross neurological examination did not reveal any focal deficits. General awake, more on the left side SKIN: No rashes. no petechiae. - Labs CBC & Chem 7: 11/13/21 08:12 11/13/21 08:12 Labs: Abnormal Lab Results - Last 24 Hours (Table) 11/12/21 11/13/21 11/13/21 Range/Units 18:25 00:24 05:43 WBC (3.8-10.6) k/uL RBC (3.80-5.40) m/uL Hgb (11.4-16.0) gm/dL Hct (34.0-46.0) % MCHC (31.0-37.0) g/dL RDW (11.5-15.5) % Neutrophils # (1.3-7.7) k/uL Carbon Dioxide (22-30) mmol/L BUN (7-17) mg/dL Creatinine (0.52-1.04) mg/dL Glucose (74-99) mg/dL POC Glucose (mg/dL) 180 H 141 H 130 H (75-99) mg/dL Calcium (8.4-10.2) mg/dL 11/13/21 11/13/21 11/13/21 Range/Units 08:12 08:12 11:40 WBC 14.6 H (3.8-10.6) k/uL RBC 3.21 L (3.80-5.40) m/uL Hgb 8.8 L (11.4-16.0) gm/dL Hct 29.9 L (34.0-46.0) % MCHC 29.5 L (31.0-37.0) g/dL RDW 16.4 H (11.5-15.5) % Neutrophils # 10.9 H (1.3-7.7) k/uL Carbon Dioxide 31 H (22-30) mmol/L BUN 30 H (7-17) mg/dL Creatinine 0.27 L (0.52-1.04) mg/dL Glucose 162 H (74-99) mg/dL POC Glucose (mg/dL) 215 H (75-99) mg/dL Calcium 8.2 L (8.4-10.2) mg/dL Microbiology - Last 24 Hours (Table) 11/07/21 11:35 Blood Culture - Final Blood No Growth after 144 hours 11/07/21 10:20 Blood Culture - Final Blood No Growth after 144 hours Assessment and Plan Assessment: Acute COVID-19 infection with acute COVID-19 bilateral interstitial pneumonia with hypoxic hypercarbic respiratory failure on mechanical vent status post trach and peg tube placement on 10/14/2021 Worsening right side pneumothorax status post chest tube placement and thoravent removal on 10/29/2021 Right pneumothorax status post chest tube placement Critical illness myopathy and neuropathy Atrial fibrillation, new onset, currently rate controlled on metoprolol and cardizem Non-sustained ventricular tachycardia, currently sinus Acute left leg deep vein thrombosis Primary hypercoagulable state and factor V deficiency Obesity with a body mass index of 36.0 DVT prophylaxis: on Eliquis No code Plan: This is a pleasant 61 years old female with covert pneumonia, hypoxia, DVT and A. fib. Continue with multiple vitamins and prednisone 60 mg Continue with gentle hydration normal saline 50 ml per hour Continue with the [facility] and pulmonary/critical care team on the case. Neurology consult, vascular surgery consult Labs and medication were reviewed.. Monitor lytes and vitals. DVT and GI prophylaxis. DVT prophylaxis: Eliquis GI Prophylaxis: Ppi Prognosis is extremely guarded
[2021-11-14 00:47] LABS: Glucose,Whole Blood 136 mg/dL (75-99)
[2021-11-14] MEDS: INSULIN ASPART (NovoLOG) 100 UNIT/ML VIAL SQ SCH ×4 (00:49→17:26)
[2021-11-14] MEDS: DEXMEDETOMIDINE/0.9% NACL(PMX) 400 MCG in EMPTY BAG 1 BAG IV SCH ×2 (01:11→21:40)
[2021-11-14] MEDS: HYDROmorphone 1 MG/ML 1 ML SYRINGE IVP PRN ×3 (02:41→13:00)
[2021-11-14 05:38] LABS: Glucose,Whole Blood 150 mg/dL (75-99)
--- NOTE | 2021-11-14 07:33 | XR ---
EXAMINATION TYPE: XR chest 1V portable DATE OF EXAM: 11/14/2021 COMPARISON: Chest x-ray 11/13/2021 HISTORY: Right-sided pneumothorax TECHNIQUE: Single frontal view of the chest is obtained. FINDINGS: There is a small right apical pneumothorax. Right-sided chest tube is in place. Right-side d PICC line is stable. Bilateral airspace disease is present. Subcutaneous emphysema is noted. There are overlying leads. Tracheostomy tube is stable. Cardiac mediastinal silhouette is unchanged. IMPRESSION: Stable right-sided pneumothorax. Findings consistent with pneumonia, correlate for ARDS
--- NOTE | 2021-11-14 08:41 | P.PN ---
Subjective Progress Note Date: 11/14/21 Principal diagnosis: Continued right-sided pneumothorax despite chest tube placement, acute hypoxic respiratory failure requiring mechanical ventilation, covid pneumonia on admissi on, remains unvaccinated against COVID-19, leukocytosis with low-grade fever, acute DVT to left lower extremity this admission on Eliquis, with history of prior DVT, new diagnosis of paroxysmal atrial fibrillation this admission. Past medical history significant for factor V leiden disorder on Coumadin at home. The patient was seen in follow-up today 11/14/2021 at her bedside in the intensive care unit. He intensive care unit, currently has her eyes open, following some simple commands with wiggling her fingers to her bilateral upper extremities and will continue her toes to her right foot only. Tracheostomy tube remains midline and intact with mechanical ventilator support. Current [facility] ventilator settings are as follows, rate 26, tidal volume 400, FiO2 50% and PEEP of 8. Right pleural chest tube remains in place to low continuous wall suction -20 cm H2O. Continuous air leak is present. Draining thin serosanguineous drainage. Chest x-ray this morning shows a stable right-sided pneumothorax. Objective - Vital Signs Vital signs: Vital Signs Temp 97.8 F 11/14/21 04:00 Pulse 92 11/14/21 07:00 Resp 31 H 11/14/21 07:00 BP 91/48 11/14/21 07:00 Pulse Ox 98 11/14/21 07:00 Intake & Output 11/13/21 11/14/21 11/14/21 18:59 06:59 18:59 Intake Total 1138 978.933 Output Total 2550 1410 Balance -1412 -431.067 Weight 91.9 kg Intake: IV 110 130 Sodium Chloride 0.9% 1, 110 130 000 ml @ 10 mls/hr IV . Q24H [facility] Rx#:[id number] Intake, IV Titration 200 94.933 Amount Dexmedetomidine/0.9% NaCl 200 94.933 (Pmx) 400 mcg In Empty Bag 1 bag @ 0.2 MCG/KG/HR 4.665 mls/hr IV .[id number] [facility] Rx#:[id number] Tube Feeding 638 754 Other 190 Output: Chest Tube Drainage 70 Chest Tube Right Upper 70 Anterior Chest Urine 2550 1340 Other: Voiding Method Indwelling Catheter Indwelling Catheter ABP, PAP, CO, CI - Last Documented Arterial Blood Pressure 120/111 - Exam CONSTITUTIONAL: Appears comfortable, cooperative, no acute distress. RESPIRATORY: Lungs sounds diminished bilaterally. Respirations are symmetrical, and Tachypneic. Tracheostomy tube is midline and intact with mechanical ventilator support, ventilator settings this morning are FiO2 50%, tidal volume 400, respiratory rate 26, peep 8. CARDIOVASCULAR: S1, S2 present. Regular rate and rhythm, sinus rhythm on bedside telemetry. Palpable peripheral pulses bilaterally. Left lower extremity edema present. GASTROINTESTINAL: Abdomen soft, nontender, nondistended. Active bowel sounds present 4 quadrants. Tolerating tube feedings through PEG. GENITOURINARY: Golden present draining clear yellow urine. INTEGUMENTARY: Skin is warm and dry, no clubbing or cyanosis present. NEUROLOGIC: Opens eyes, follows commands, able to wiggle fingers on both hands, wiggles right toes. INVASIVE LINES AND TUBES: Right-sided double-lumen PICC present. Right-sided anterior pleural chest tube present to wall suction, continuous air leak present. - Allied health notes Allied health notes reviewed: nursing - Labs CBC & Chem 7: 11/13/21 08:12 11/13/21 08:12 Labs: Abnormal Lab Results - Last 24 Hours (Table) 11/13/21 11/13/21 11/13/21 Range/Units 08:12 11:40 17:58 WBC 14.6 H (3.8-10.6) k/uL RBC 3.21 L (3.80-5.40) m/uL Hgb 8.8 L (11.4-16.0) gm/dL Hct 29.9 L (34.0-46.0) % MCHC 29.5 L (31.0-37.0) g/dL RDW 16.4 H (11.5-15.5) % Neutrophils # 10.9 H (1.3-7.7) k/uL POC Glucose (mg/dL) 215 H 167 H (75-99) mg/dL 11/14/21 11/14/21 Range/Units 00:46 05:36 WBC (3.8-10.6) k/uL RBC (3.80-5.40) m/uL Hgb (11.4-16.0) gm/dL Hct (34.0-46.0) % MCHC (31.0-37.0) g/dL RDW (11.5-15.5) % Neutrophils # (1.3-7.7) k/uL POC Glucose (mg/dL) 136 H 150 H (75-99) mg/dL Microbiology - Last 24 Hours (Table) 11/07/21 11:35 Blood Culture - Final Blood No Growth after 144 hours 11/07/21 10:20 Blood Culture - Final Blood No Growth after 144 hours - Imaging and Cardiology Chest x-ray: report reviewed, image reviewed Assessment and Plan Assessment: 1. Continued right-sided pneumothorax despite chest tube placement, status post anterior chest tube placement by Dr. Gunn 2. Acute hypoxic respiratory failure requiring mechanical ventilation 3. Covid-19 pneumonia on admission, remains unvaccinated 4. Leukocytosis with low-grade fever 5. Acute DVT to left lower extremity this admission on Eliquis, with history of prior DVT 6. New diagnosis of paroxysmal atrial fibrillation this admission, currently in normal sinus rhythm 7. History of factor V leiden disorder on Coumadin at home 8. Multiple other comorbidities Plan: 1. Continue right pleural chest tube to low continuous wall suction -20 cm H2O, continue to monitor for air leak resolution. 2. Will monitor daily chest x-rays. 3. Ventilator management per pulmonary critical care medicine. 4. Medical management of other comorbidities per primary care. 5. More recommendations to follow based on patient's clinical course. Time with Patient: Greater than 30
[2021-11-14] MEDS: PYRIDOXINE 50 MG TAB PO SCH (08:50)
[2021-11-14] MEDS: PANTOPRAZOLE 40 MG/10 ML VIAL IV SCH (08:50)
[2021-11-14] MEDS: NYSTATIN 100,000 UNIT/ML SUSP 500,000 UNIT/5 ML CUP PO SCH ×4 (08:50→23:09)
[2021-11-14] MEDS: FUROSEMIDE 10 MG/ML 4 ML VIAL IV SCH ×2 (08:50→23:09)
[2021-11-14] MEDS: CYANOCOBALAMIN 1,000 MCG/ML 1 ML VIAL IM SCH (08:50)
[2021-11-14] MEDS: METOPROLOL TARTRATE 50 MG TAB PO SCH ×2 (08:51→23:10)
[2021-11-14] MEDS: amLODIPine 5 MG TAB PO SCH (08:51)
[2021-11-14] MEDS: ERGOCALCIFEROL 1,250 MCG (50,000 IU) CAPSULE PO SCH (08:51)
[2021-11-14] MEDS: LOSARTAN 50 MG TAB PO SCH (08:51)
[2021-11-14] MEDS: predniSONE 10 MG TAB PO SCH (08:51)
[2021-11-14] MEDS: QUEtiapine 50 MG TAB PO SCH ×2 (08:51→23:09)
[2021-11-14] MEDS: POTASSIUM BICARBONATE/CIT AC 20 MEQ TABLET.EFF PO SCH ×3 (08:51→23:09)
[2021-11-14] MEDS: ZINC SULFATE 220 MG CAP PO SCH (08:51)
[2021-11-14] MEDS: FOLIC ACID 1 MG TAB PO SCH (08:52)
[2021-11-14] MEDS: busPIRone HCl 5 MG TAB PO SCH ×2 (08:52→23:09)
[2021-11-14] MEDS: ASCORBIC ACID 500 MG TAB PO SCH ×2 (08:52→23:10)
[2021-11-14] MEDS: APIXABAN 5 MG TAB PO SCH ×2 (08:52→23:10)
[2021-11-14 11:11] LABS: Glucose,Whole Blood 213 mg/dL (75-99)
--- NOTE | 2021-11-14 11:49 | P.PN ---
Subjective Progress Note Date: 11/14/21 Patient was seen at bedside and per the patient's nurse is about the same. Objective - Vital Signs Vital signs: Vital Signs Temp 98.7 F 11/14/21 08:00 Pulse 88 11/14/21 11:00 Resp 25 H 11/14/21 11:00 BP 100/46 11/14/21 11:00 Pulse Ox 97 11/14/21 11:00 Intake & Output 11/13/21 11/14/21 11/14/21 18:59 06:59 18:59 Intake Total 1138 978.933 362 Output Total 2550 1410 775 Balance -1412 -431.067 -413 Weight 91.9 kg Intake: IV 110 130 40 Sodium Chloride 0.9% 1, 110 130 40 000 ml @ 10 mls/hr IV . Q24H [facility] Rx#:[id number] Intake, IV Titration 200 94.933 Amount Dexmedetomidine/0.9% NaCl 200 94.933 (Pmx) 400 mcg In Empty Bag 1 bag @ 0.2 MCG/KG/HR 4.665 mls/hr IV .[id number] [facility] Rx#:[id number] Tube Feeding 638 754 232 Other 190 90 Output: Chest Tube Drainage 70 0 Chest Tube Right Upper 70 0 Anterior Chest Urine 2550 1340 775 Other: Voiding Method Indwelling Catheter Indwelling Catheter Indwelling Catheter # Voids 1 ABP, PAP, CO, CI - Last Documented Arterial Blood Pressure 120/111 - Exam GENERAL: The patient is lying in bed and is not in acute distress. LUNG: Trached and on ventilator. INTEGUMENTARY: Edema 1-2+ NEUROLOGICAL: Higher mental function: The patient is awake, alert. Is oriented to her self. She is trying to verbalize but not producing any sound but can be understood thru lip reading and her nodding. She correctly stated some objects (watch and pen). She is following some commands (sticking tongue out, moving extremities). Cranial nerves: The pupils are round, equal and reactive to light. Visual patterson are hard to assess. EOM is intact looking to right and left and no nystagmus. No facial weakness. Motor: The strength is limited because of her condition. But is able to move the right side better than left. Right distal extremity is is 2-3 and right ankle is 3/5. Left fingers/wrist is few episode of flicker of fingers 1-2. Decrease tone throughout. Normal bulk. Sensation: Sensation is normal to touch throughout. Reflexes: Patient refused and was in pain upon attempting to perform. WORK-UP: * CT head showed no acute process. * Carotid Doppler showed no significant stenosis. * 2-D echo from 11/01/2021 showed mild concentric LVH. EF is between 55-60%. Aortic valve not well visualized. - Labs CBC & Chem 7: 11/13/21 08:12 11/13/21 08:12 Labs: Abnormal Lab Results - Last 24 Hours (Table) 11/13/21 11/13/21 11/14/21 Range/Units 11:40 17:58 00:46 POC Glucose (mg/dL) 215 H 167 H 136 H (75-99) mg/dL 11/14/21 11/14/21 Range/Units 05:36 11:08 POC Glucose (mg/dL) 150 H 213 H (75-99) mg/dL Microbiology - Last 24 Hours (Table) 11/07/21 11:35 Blood Culture - Final Blood No Growth after 144 hours 11/07/21 10:20 Blood Culture - Final Blood No Growth after 144 hours Assessment and Plan Assessment: * Left sided weakness > right sided (per nurse had this for some time but unsure for how long). Rule out stroke. 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 * Encephalopathy, improving. * Ventilator-dependent respiratory failure * Status post tracheostomy and PEG placement * Status post Covid-19 pneumonia * B12 deficiency (elevated methylmalonic acid) * Folate deficiency * Vitamin B6 deficiency * Rheumatoid Arthritis. * Pneumothorax * Obesity * DVT left leg, currently on anticoagulation with Eliquis. Plan: * I ordered CT brain and CT-cervical spine w/o to rule out stroke. Cannot obtain MRI because of ventilator. 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 GBS was felt to be low on differential. Clinical picture appears more like critical illness myopathy/neuropathy. Patient also has nutritional deficiency with B12, folate and B6 deficiency. * Patient will need prolonged therapy. * B12 586, methylmalonic acid elevated 0.45 (<0.40), folate 3.8 (4.4-31), vitamin B6 4 (5-50), hemoglobin A1c 4.9, CK 31 normal, aldolase 7.3 normal, rheumatoid factor 68. Patient's TSH is normal 1.38. We will start vitamin B12 injections 1000 g IM for total 3 days. Then may take oral B12. We will also start vitamin B6 replacement. Continue folic acid 1 mg daily. * Patient currently on Eliquis for her history of DVT. * Patient has rheumatoid arthritis, always needed methotrexate. She has not received her methotrexate since last 2 months. * Will defer the rest of medical management to the primary and ICU team. The plan is discussed with the patient's nurse. Jean-Paul Pope M.D. Neuro-Hospitalist Time with Patient: Less than 30
[2021-11-14] MEDS: SODIUM CHLORIDE 0.9% 1,000 ML IV SCH (13:45)
--- NOTE | 2021-11-14 14:07 | P.PN ---
Subjective Progress Note Date: 11/14/21 11/14/2021, the patient is being seen for a follow-up. This morning, the patient is on Precedex at 0.6 mitral respiratory per minute. Noted because of increased anxiety, the patient was also started on BuSpar 50 mg by mouth twice a day. She is also on Seroquel 50 mg by mouth twice a day. Doing well. She is calm and comfortable. She remains on a mechanical ventilator. She is an assist-control mode at the rate of 30, tidal volume of 400, FiO2 of 50% with a PEEP of 10. Peak pressures around 26. The patient continues to have persistent air leak through the right-sided chest tube. Volume loss with each tidal volumes around 40 mL. The chest x-ray showed a stable right-sided pneumothorax. There is diffuse bilateral pulmonary infiltrates with to his previous pneumonia. The right-sided pneumothorax and is unchanged. Meanwhile, the patient is being urged IV Lasix. The patient is receiving Lasix 40 mg IV push every 12 hours. Overall fluid balance is -1.5 L over the past 24 hours. The patient remains on vital high protein and enteral feeding is being delivered successfully at the rate of 58 mL an hour. Active site is dry clean and intact. She remains on long-term medical condition with Eliquis 5 mg by mouth twice a day. She remains on metoprolol 50 mg by mouth twice a day which is controlling her heart rate and she has some borderline hypotension after being given the metoprolol. She has not required any pressors. I have also developed a prednisone dose down to 10 mg by mouth daily as part of her burst taper. No other significant events otherwise over the past 24 hours. Objective - Vital Signs Vital signs: Vital Signs Temp 98.6 F 11/14/21 12:00 Pulse 93 11/14/21 14:00 Resp 89 H 11/14/21 14:00 BP 90/47 11/14/21 14:00 Pulse Ox 98 11/14/21 14:00 Intake & Output 11/13/21 11/14/21 11/14/21 18:59 06:59 18:59 Intake Total 1138 978.933 588 Output Total 2550 1410 2085 Balance -1412 -431.067 -1497 Weight 91.9 kg Intake: IV 110 130 70 Sodium Chloride 0.9% 1, 110 130 70 000 ml @ 10 mls/hr IV . Q24H [facility] Rx#:[id number] Intake, IV Titration 200 94.933 Amount Dexmedetomidine/0.9% NaCl 200 94.933 (Pmx) 400 mcg In Empty Bag 1 bag @ 0.2 MCG/KG/HR 4.665 mls/hr IV .[id number] [facility] Rx#:[id number] Tube Feeding 638 754 398 Other 190 120 Output: Chest Tube Drainage 70 10 Chest Tube Right Upper 70 10 Anterior Chest Urine 2550 1340 2075 Other: Voiding Method Indwelling Catheter Indwelling Catheter Indwelling Catheter # Voids 1 ABP, PAP, CO, CI - Last Documented Arterial Blood Pressure 120/111 - Exam GENERAL EXAM: Awake and follows simple command, trached to the ventilator, on assist control mode of ventilation with a rate of 30, tidal volume 400, FiO2 of 50% and PEEP of 10, 61-year-old white female, tachypneic and anxious. Currently on low dose of Precedex HEAD: Normocephalic/atraumatic. EYES: Normal reaction of pupils, equal size. Conjunctiva pink, sclera white. NOSE: Clear with pink turbinates. THROAT: No erythema or exudates. NECK: No masses, no JVD, no thyroid enlargement, no adenopathy. CHEST: No chest wall deformity. Symmetrical expansion. 1 right-sided chest tubes in place, there is continous air leak from right-sided chest tube LUNGS: Equal air entry with no crackles, wheeze, rhonchi or dullness. CVS: Irregular rate and rhythm, normal S1 and S2, no gallops, no murmurs, no rubs ABDOMEN: Soft, nontender. No hepatosplenomegaly, normal bowel sounds, no guarding or rigidity. PEG tube in place with tube feedings infusing with vital HP at a rate of 10 with a goal of 10 EXTREMITIES: No clubbing, significant gen edema, no cyanosis, 2+ pulses and upper and lower extremities. MUSCULOSKELETAL: Muscle strength and tone extremely weak SPINE: No scoliosis or deformity SKIN: No rashes CENTRAL NERVOUS SYSTEM:Awke and alert, trached to the ventilator, Follows simple command. No focal deficits, tone is normal in all 4 extremities. - Labs CBC & Chem 7: 11/13/21 08:12 11/13/21 08:12 Labs: Abnormal Lab Results - Last 24 Hours (Table) 11/13/21 11/14/21 11/14/21 Range/Units 17:58 00:46 05:36 POC Glucose (mg/dL) 167 H 136 H 150 H (75-99) mg/dL 11/14/21 Range/Units 11:08 POC Glucose (mg/dL) 213 H (75-99) mg/dL Microbiology - Last 24 Hours (Table) 11/07/21 11:35 Blood Culture - Final Blood No Growth after 144 hours 11/07/21 10:20 Blood Culture - Final Blood No Growth after 144 hours Assessment and Plan Plan: #1. Acute hypoxic respiratory failure related to COVID-19 pneumonia complicated with ARDS. Patient was intubated and on 09/25/2021, status post tracheostomy and PEG tube placement on 10/14/2021. The patient remains ventilator dependent and the patient continues to have a persistent pneumothorax on the right and order of 5-10% and there is persistent air leak on the Pleur-evac. Nevertheless, she has adequate oxygenation and ventilation for now. She remains on a volume cycle assist-control mode of mechanical ventilation. The chest x- ray shows persistent right-sided pneumothorax from today and the patient continues to have air leak in the order of 40-50 mL with each tidal volume. Adequate oxygenation. Adequate ventilation. Hemodynamically stable. #2. Acute COVID 19 related pneumonia, still on prednisone which is a part of the burst taper. The patient is currently on prednisone 10 mg by mouth daily. #3. Generalized motor weakness in all 4 extremities related to critical illness polyneuropathy and myopathy, extensive edema in all 4 extremities, currently on IV Lasix. #4. Bilateral pneumothoraces requiring bilateral chest tube placements, with subsequent removal and recurrence of right-sided pneumothorax, requiring placement of another chest tube on the right, and subsequent Thoravent placement on 10/25/2021, and subsequent removal of the Thoravent on 10/29/2021 and placement of another right-sided chest tube on 10/29/2021. The patient is a persistent air leak in the right sided chest tube and there is a persistent pneumothorax on the right and order of 5-10%. Left lung is well expanded for now. #5. Acute deep vein thrombosis on Eliquis, no signs of bleeding #6. New-onset A. fib on 10/31/2021, currently in sinus, patient was on Cardizem drip, now on oral Cardizem, remains on Eliquis, currently in sinus rhythm #7. Subcutaneous emphysema resolved #8. Prior history of DVT #9. Increased anxiety #10. Mildly elevated liver enzymes secondary to COVID-19, recovered #11. Nonsustained ventricular tachycardia resolved #12. History of fibromyalgia #13 chronic anemia, multifactorial, expected outcome of prolonged ICU stay Plan Continue ventilator support I'm going to change the PEEP to 8 and the respiratory rate down to 26 Monitor the blood gases in the chest x-ray in the air leak Keep the prednisone low at 10 mg a day Wean off Precedex Continue Seroquel Continue BuSpar Continue Eliquis for long-term anticoagulation Continued IV Protonix Continue vital high protein for enteral feeding and nutritional support Physical therapy for passive range of motion Condition remains critical and will continue to follow make further accommodation based on her progress. This critically care evaluation was done and more than 30 minutes. Time with Patient: Greater than 30
[2021-11-14] MEDS: LORazepam 2 MG/ML INJ IV PRN (15:08)
--- NOTE | 2021-11-14 16:27 | CT ---
EXAMINATION TYPE: CT brain cspine wo con DATE OF EXAM: 11/14/2021 COMPARISON: CT brain 11/08/2021 HISTORY: weakness CT DLP: 1392.6 mGycm Automated exposure control for dose reduction was used. Ventricles have normal size. There is no mass effect or midline shift. There is no sign of intracrani al hemorrhage. Calvarium is intact. Skull base is intact. There is limited aeration of the mastoid si nuses. The cervical vertebra show mild straightening. There is old anterior fusion surgery at C5-6. There is narrowing of the disc spaces at C4-5. There is narrowing of C6-7 disc space with spur formation. The re is no evidence of any significant cervical spinal stenosis.. Facet joints are intact. There is tracheostomy tube. There is significant opacification of the left m iddle ear cavity. There is opacification of the left-sided epitympanic recess. IMPRESSION: Negative CT scan of the brain. Bilateral mastoiditis with also significant left-sided otitis media. Cholesteatoma is possible. No ch omayra compared to recent exam. Previous cervical spine fusion surgery. Spondylotic changes. No acute bony abnormality. No fracture.
[2021-11-14 17:22] LABS: Glucose,Whole Blood 197 mg/dL (75-99)
[2021-11-15 00:24] LABS: Glucose,Whole Blood 137 mg/dL (75-99)
[2021-11-15] MEDS: INSULIN ASPART (NovoLOG) 100 UNIT/ML VIAL SQ SCH ×4 (02:24→18:50)
[2021-11-15] MEDS: HYDROmorphone 1 MG/ML 1 ML SYRINGE IVP PRN (03:33)
[2021-11-15] MEDS: DEXMEDETOMIDINE/0.9% NACL(PMX) 400 MCG in EMPTY BAG 1 BAG IV SCH ×3 (04:30→18:51)
[2021-11-15 06:12] LABS: Glucose,Whole Blood 175 mg/dL (75-99)
[2021-11-15 07:19] LABS: Anisocytosis Slight; Basophils # (A) 0.1 k/uL (0-0.2); Basophils % (A) 1 %; Eosinophils # (A) 0.2 k/uL (0-0.7); Eosinophils % (A) 1 %; HGB 8.4 gm/dL (11.4-16.0); Hypochromasia Marked; Lymphocytes # (A) 2.3 k/uL (1.0-4.8); Lymphocytes % (A) 18 %; MCH 27.6 pg (25.0-35.0); MCHC 30.1 g/dL (31.0-37.0); MCV 91.7 fL (80.0-100.0); Mean Platelet Volume 9.5; Monocytes # (A) 0.7 k/uL (0-1.0); Monocytes % (A) 5 %; Neutrophils # (A) 9.1 k/uL (1.3-7.7); Neutrophils % (A) 73 %; Platelet Count 299 k/uL (150-450); RBC 3.05 m/uL (3.80-5.40); RDW 16.3 % (11.5-15.5); WBC 12.5 k/uL (3.8-10.6)
[2021-11-15 07:41] LABS: African American GFR (CKD) >90 (>60 ml/min/1.73 sqM); Anion Gap 3 mmol/L; Blood Urea Nitrogen 36 mg/dL (7-17); Calcium 8.2 mg/dL (8.4-10.2); Carbon Dioxide 35 mmol/L (22-30); Chloride 99 mmol/L (98-107); Glucose 163 mg/dL (74-99); Non-African American GFR(CKD) >90 (>60 ml/min/1.73 sqM); Potassium 3.4 mmol/L (3.5-5.1); Sodium 137 mmol/L (137-145)
--- NOTE | 2021-11-15 07:45 | XR ---
EXAMINATION TYPE: XR chest 1V portable DATE OF EXAM: 11/15/2021 COMPARISON: 11/14/2021 INDICATION: Chest tube, difficulty breathing, pneumothorax TECHNIQUE: Single frontal view of the chest is obtained. FINDINGS: The heart size is normal. The pulmonary vasculature is dominant. Feces increased lung markings are present bilaterally. Tracheostomy tube is in the midline. Right-batool ed chest tube is present. A right pneumothorax is present with slight improvement. PICC line nurse on the right with the tip in superior vena cava region. IMPRESSION: 1. Diminished size of previous pneumothorax. 2. Lines and catheters discussed above. 3. Diffuse increased lung markings bilaterally, consider ARDS in the proper clinical setting.
[2021-11-15] MEDS: NYSTATIN 100,000 UNIT/ML SUSP 500,000 UNIT/5 ML CUP PO SCH ×4 (08:23→20:05)
[2021-11-15] MEDS: amLODIPine 5 MG TAB PO SCH (08:23)
[2021-11-15] MEDS: CYANOCOBALAMIN 1,000 MCG/ML 1 ML VIAL IM SCH (08:23)
[2021-11-15] MEDS: POTASSIUM BICARBONATE/CIT AC 20 MEQ TABLET.EFF PO SCH ×3 (08:23→20:05)
[2021-11-15] MEDS: busPIRone HCl 5 MG TAB PO SCH ×2 (08:23→20:05)
[2021-11-15] MEDS: FUROSEMIDE 10 MG/ML 4 ML VIAL IV SCH ×2 (08:23→09:47)
[2021-11-15] MEDS: PANTOPRAZOLE 40 MG/10 ML VIAL IV SCH (08:23)
[2021-11-15] MEDS: APIXABAN 5 MG TAB PO SCH ×2 (08:23→20:05)
[2021-11-15] MEDS: FOLIC ACID 1 MG TAB PO SCH (08:24)
[2021-11-15] MEDS: predniSONE 10 MG TAB PO SCH (08:24)
[2021-11-15] MEDS: PYRIDOXINE 50 MG TAB PO SCH (08:24)
[2021-11-15] MEDS: ZINC SULFATE 220 MG CAP PO SCH (08:24)
[2021-11-15] MEDS: QUEtiapine 50 MG TAB PO SCH ×2 (08:24→20:05)
[2021-11-15] MEDS: METOPROLOL TARTRATE 50 MG TAB PO SCH ×2 (08:24→20:05)
[2021-11-15] MEDS: ASCORBIC ACID 500 MG TAB PO SCH ×2 (08:24→20:05)
--- NOTE | 2021-11-15 09:05 | P.PN ---
Subjective Progress Note Date: 11/15/21 Principal diagnosis: Continued right-sided pneumothorax despite chest tube placement, acute hypoxic respiratory failure requiring mechanical ventilation, covid pneumonia on admissi on, remains unvaccinated, leukocytosis with low-grade fever, acute DVT to left lower extremity this admission on Eliquis, with history of prior DVT, new diagnosis of paroxysmal atrial fibrillation this admission. Previous medical history of factor V leiden disorder on Coumadin at home The patient was seen and examined this morning laying in bed in the intensive care unit, still being mechanically ventilated. She does open her eyes, follow commands, able to move all extremities except left foot although does remain very weak. Anterior chest tube continues to show continuous air leak. Chest x- ray reveals stable small right-sided pneumothorax. Objective - Vital Signs Vital signs: Vital Signs Temp 98.1 F 11/15/21 04:00 Pulse 101 H 11/15/21 07:00 Resp 27 H 11/15/21 07:00 BP 91/53 11/15/21 07:00 Pulse Ox 98 11/15/21 07:00 Intake & Output 11/14/21 11/15/21 11/15/21 18:59 06:59 18:59 Intake Total 1046 949.632 66 Output Total 3185 1395 40 Balance -2139 -445.368 26 Weight 90.1 kg Intake: IV 110 120 10 Sodium Chloride 0.9% 1, 110 120 10 000 ml @ 10 mls/hr IV . Q24H [facility] Rx#:[id number] Intake, IV Titration 100 95.632 Amount Dexmedetomidine/0.9% NaCl 100 95.632 (Pmx) 400 mcg In Empty Bag 1 bag @ 0.2 MCG/KG/HR 4.665 mls/hr IV .[id number] [facility] Rx#:[id number] Tube Feeding 626 674 56 Other 210 60 Output: Chest Tube Drainage 10 30 Chest Tube Right Upper 10 30 Anterior Chest Urine 3175 1365 40 Other: Voiding Method Indwelling Catheter Indwelling Catheter # Voids 1 ABP, PAP, CO, CI - Last Documented Arterial Blood Pressure 120/111 - Exam CONSTITUTIONAL: Appears comfortable, cooperative, no acute distress. Shakes head no when asked if in pain RESPIRATORY: Lungs sounds diminished bilaterally. Respirations even, nonlabor ed. Currently on mechanical ventilation through tracheostomy, ventilator settings this morning were FiO2 50%, tidal volume 400, respiratory rate 26, peep 8. CARDIOVASCULAR: S1, S2 present. Regular rate and rhythm, sinus rhythm on telemetry. Palpable peripheral pulses bilaterally. Left lower extremity edema present GASTROINTESTINAL: Abdomen soft, nontender, nondistended. Active bowel sounds present 4 quadrants. Tolerating tube feedings through PEG at 56 mL/h GENITOURINARY: Golden present draining clear yellow urine INTEGUMENTARY: Skin is warm and dry NEUROLOGIC: Opens eyes, follows commands, able to move all extremities except left foot, remains very weak INVASIVE LINES AND TUBES: Right-sided double-lumen PICC present. Right-sided anterior pleural chest tube present to wall suction, continuous air leak present - Allied health notes Allied health notes reviewed: nursing - Labs CBC & Chem 7: 11/15/21 06:22 11/15/21 06:22 Labs: Abnormal Lab Results - Last 24 Hours (Table) 11/14/21 11/14/21 11/15/21 Range/Units 11:08 17:21 00:23 WBC (3.8-10.6) k/uL RBC (3.80-5.40) m/uL Hgb (11.4-16.0) gm/dL Hct (34.0-46.0) % MCHC (31.0-37.0) g/dL RDW (11.5-15.5) % Neutrophils # (1.3-7.7) k/uL Potassium (3.5-5.1) mmol/L Carbon Dioxide (22-30) mmol/L BUN (7-17) mg/dL Creatinine (0.52-1.04) mg/dL Glucose (74-99) mg/dL POC Glucose (mg/dL) 213 H 197 H 137 H (75-99) mg/dL Calcium (8.4-10.2) mg/dL 11/15/21 11/15/21 11/15/21 Range/Units 06:11 06:22 06:22 WBC 12.5 H (3.8-10.6) k/uL RBC 3.05 L (3.80-5.40) m/uL Hgb 8.4 L (11.4-16.0) gm/dL Hct 28.0 L (34.0-46.0) % MCHC 30.1 L (31.0-37.0) g/dL RDW 16.3 H (11.5-15.5) % Neutrophils # 9.1 H (1.3-7.7) k/uL Potassium 3.4 L (3.5-5.1) mmol/L Carbon Dioxide 35 H (22-30) mmol/L BUN 36 H (7-17) mg/dL Creatinine 0.32 L (0.52-1.04) mg/dL Glucose 163 H (74-99) mg/dL POC Glucose (mg/dL) 175 H (75-99) mg/dL Calcium 8.2 L (8.4-10.2) mg/dL - Imaging and Cardiology Chest x-ray: report reviewed, image reviewed Assessment and Plan Assessment: 1. Continued right-sided pneumothorax despite chest tube placement, status post anterior chest tube placement by Dr. Gunn 2. Acute hypoxic respiratory failure requiring mechanical ventilation 3. Covid pneumonia on admission, remains on vaccinated 4. Leukocytosis with low-grade fever 5. Acute DVT to left lower extremity this admission on Eliquis, with history of prior DVT 6. New diagnosis of paroxysmal atrial fibrillation this admission, currently in sinus 7. History of factor V leiden disorder on Coumadin at home 8. Multiple other comorbidities Plan: 1. Continue anterior chest tube to continuous wall suction, monitor for resolution of air leak 2. Will monitor daily x-rays 3. Ventilator management per telecine operator 4. Medical management of other comorbidities per primary care 5. More recommendations to follow Time with Patient: Greater than 30
[2021-11-15] MEDS: LOSARTAN 50 MG TAB PO SCH (11:21)
[2021-11-15 12:07] LABS: Glucose,Whole Blood 235 mg/dL (75-99)
[2021-11-15] MEDS: SODIUM CHLORIDE 0.9% 1,000 ML IV SCH (12:15)
--- NOTE | 2021-11-15 12:35 | P.PN ---
Subjective Progress Note Date: 11/15/21 11/15/2021, the patient is still on Precedex which is running at 0.6 mitral respiratory per minute. The patient is awake and alert and she is comfortable. No significant anxiety. She remains on BuSpar regarding chronic anxiety. She remains on a mechanical ventilator. On today's evaluation, she is an assist- control mode at the rate of 26, tidal volume of 400, FiO2 of 50% with a PEEP of 8. The air leak is still presents with a right-sided chest and persistent air leak seen in the Pleur-evac. Nevertheless, the month of April being lost is less compared to yesterday. Chest x-ray still showing a stable right apical pneumothorax. This of the positive findings are essentially unchanged. Peak airway pressures around 29. The patient is on Lasix 40 mg IV every 12 hours. The patient has a negative fluid balance of 1.8 L over the past 24 hours. The white cell count 12.4 with a hemoglobin of 8.4. She is tolerating enteral feeding for nutritional support and she is currently on vital high protein at the rate of 55 mL an hour. No nausea. No vomiting. No abdominal distention. She is stooling. She remains also on long-term medical condition with Eliquis 5 mg by mouth twice a day. No other significant events. She is weak although her motor function continued to improve slowly. She is able to move her arms and legs more actively compared to yesterday although the weakness persisted profound. The patient remains on metoprolol 50 mg by mouth twice a day. She is on Levemir insulin 5 units at bedtime along with a sinus. Coverage pH is on Cozaar 50 mg for blood pressure control. She is also on milligrams of Lopressor. She is on prednisone 10 mg by mouth daily. Objective - Vital Signs Vital signs: Vital Signs Temp 99.5 F 11/15/21 12:00 Pulse 108 H 11/15/21 12:00 Resp 29 H 11/15/21 12:00 BP 110/59 11/15/21 12:00 Pulse Ox 96 11/15/21 12:00 Intake & Output 11/14/21 11/15/21 11/15/21 18:59 06:59 18:59 Intake Total 1046 949.632 327.732 Output Total 3185 1395 1245 Balance -2139 -445.368 -917.268 Weight 90.1 kg 90.1 kg Intake: IV 110 120 60 Sodium Chloride 0.9% 1, 110 120 60 000 ml @ 10 mls/hr IV . Q24H [facility] Rx#:[id number] Intake, IV Titration 100 95.632 97.732 Amount Dexmedetomidine/0.9% NaCl 100 95.632 97.732 (Pmx) 400 mcg In Empty Bag 1 bag @ 0.2 MCG/KG/HR 4.665 mls/hr IV .[id number] [facility] Rx#:[id number] Tube Feeding 626 674 170 Other 210 60 Output: Chest Tube Drainage 10 30 Chest Tube Right Upper 10 30 Anterior Chest Urine 3175 1365 1245 Other: Voiding Method Indwelling Catheter Indwelling Catheter Indwelling Catheter # Voids 1 ABP, PAP, CO, CI - Last Documented Arterial Blood Pressure 120/111 - Exam GENERAL EXAM: Awake and follows simple command, trached to the ventilator, on assist control mode of ventilation with a rate of 30, tidal volume 400, FiO2 of 50% and PEEP of 10, 61-year-old white female, tachypneic and anxious. Currently on low dose of Precedex HEAD: Normocephalic/atraumatic. EYES: Normal reaction of pupils, equal size. Conjunctiva pink, sclera white. NOSE: Clear with pink turbinates. THROAT: No erythema or exudates. NECK: No masses, no JVD, no thyroid enlargement, no adenopathy. CHEST: No chest wall deformity. Symmetrical expansion. 1 right-sided chest tubes in place, there is continous air leak from right-sided chest tube LUNGS: Equal air entry with no crackles, wheeze, rhonchi or dullness. CVS: Irregular rate and rhythm, normal S1 and S2, no gallops, no murmurs, no rubs ABDOMEN: Soft, nontender. No hepatosplenomegaly, normal bowel sounds, no guarding or rigidity. PEG tube in place with tube feedings infusing with vital HP at a rate of 10 with a goal of 10 EXTREMITIES: No clubbing, significant gen edema, no cyanosis, 2+ pulses and upper and lower extremities. MUSCULOSKELETAL: Muscle strength and tone extremely weak SPINE: No scoliosis or deformity SKIN: No rashes CENTRAL NERVOUS SYSTEM:Awke and alert, trached to the ventilator, Follows simple command. No focal deficits, tone is normal in all 4 extremities. - Labs CBC & Chem 7: 11/15/21 06:22 11/15/21 06:22 Labs: Abnormal Lab Results - Last 24 Hours (Table) 11/14/21 11/15/21 11/15/21 Range/Units 17:21 00:23 06:11 WBC (3.8-10.6) k/uL RBC (3.80-5.40) m/uL Hgb (11.4-16.0) gm/dL Hct (34.0-46.0) % MCHC (31.0-37.0) g/dL RDW (11.5-15.5) % Neutrophils # (1.3-7.7) k/uL Potassium (3.5-5.1) mmol/L Carbon Dioxide (22-30) mmol/L BUN (7-17) mg/dL Creatinine (0.52-1.04) mg/dL Glucose (74-99) mg/dL POC Glucose (mg/dL) 197 H 137 H 175 H (75-99) mg/dL Calcium (8.4-10.2) mg/dL 11/15/21 11/15/21 11/15/21 Range/Units 06:22 06:22 12:05 WBC 12.5 H (3.8-10.6) k/uL RBC 3.05 L (3.80-5.40) m/uL Hgb 8.4 L (11.4-16.0) gm/dL Hct 28.0 L (34.0-46.0) % MCHC 30.1 L (31.0-37.0) g/dL RDW 16.3 H (11.5-15.5) % Neutrophils # 9.1 H (1.3-7.7) k/uL Potassium 3.4 L (3.5-5.1) mmol/L Carbon Dioxide 35 H (22-30) mmol/L BUN 36 H (7-17) mg/dL Creatinine 0.32 L (0.52-1.04) mg/dL Glucose 163 H (74-99) mg/dL POC Glucose (mg/dL) 235 H (75-99) mg/dL Calcium 8.2 L (8.4-10.2) mg/dL Assessment and Plan Plan: #1. Acute hypoxic respiratory failure related to COVID-19 pneumonia complicated with ARDS. Patient was intubated and on 09/25/2021, status post tracheostomy and PEG tube placement on 10/14/2021. The patient remains ventilator dependent and the patient continues to have a persistent pneumothorax on the right and order of 5-10% and there is persistent air leak on the Pleur-evac. Nevertheless, she has adequate oxygenation and ventilation for now. She remains on a volume cycle assist-control mode of mechanical ventilation. The chest x- ray shows persistent right-sided pneumothorax from today and the patient continues to have air leak in the order of 40-50 mL with each tidal volume. Adequate oxygenation. Adequate ventilation. Hemodynamically stable. #2. Acute COVID 19 related pneumonia, still on prednisone which is a part of the burst taper. The patient is currently on prednisone 10 mg by mouth daily. #3. Generalized motor weakness in all 4 extremities related to critical illness polyneuropathy and myopathy, extensive edema in all 4 extremities, currently on IV Lasix. #4. Bilateral pneumothoraces requiring bilateral chest tube placements, with subsequent removal and recurrence of right-sided pneumothorax, requiring placement of another chest tube on the right, and subsequent Thoravent placement on 10/25/2021, and subsequent removal of the Thoravent on 10/29/2021 and placement of another right-sided chest tube on 10/29/2021. The patient is a persistent air leak in the right sided chest tube and there is a persistent pneumothorax on the right and order of 5-10%. Left lung is well expanded for now. #5. Acute deep vein thrombosis on Eliquis, no signs of bleeding #6. New-onset A. fib on 10/31/2021, currently in sinus, patient was on Cardizem drip, now on oral Cardizem, remains on Eliquis, currently in sinus rhythm #7. Subcutaneous emphysema resolved #8. Prior history of DVT #9. Increased anxiety #10. Mildly elevated liver enzymes secondary to COVID-19, recovered #11. Nonsustained ventricular tachycardia resolved #12. History of fibromyalgia #13 chronic anemia, multifactorial, expected outcome of prolonged ICU stay #14 critical illness polyneuropathy and myopathy with profound weakness in all 4 extremities. Plan Continue ventilator support I noticed is amount of air leak is less compared to yesterday. I'm going to drop the PEEP down to 6 and possibly down to 5 as the patient is able to tolerate and maintain a saturation above 95%. I'm going to drop the respiratory rate down to 22. I'm going to drop the Lasix dose to 40 mg once a day Keep the prednisone low at 10 mg a day Wean off Precedex Continue Seroquel Continue BuSpar Continue Eliquis for long-term anticoagulation Continued IV Protonix Continue vital high protein for enteral feeding and nutritional support Physical therapy for passive range of motion We'll check weaning parameters We'll assess the patient's ability to do some sports his breathing trial later stage. This will be a prolonged wean as the patient has significant amount of motor weakness in all 4 extremities. Condition remains critical and will continue to follow make further accommodation based on her progress. This critically care evaluation was done and more than 30 minutes. Time with Patient: Greater than 30
--- NOTE | 2021-11-15 15:49 | P.PN ---
Subjective Progress Note Date: 11/15/21 The patient is seen at bedside and per nurse she is about the same. Is on IV Precedex 0.6mcg/kg/hr. Objective - Vital Signs Vital signs: Vital Signs Temp 99.5 F 11/15/21 12:00 Pulse 106 H 11/15/21 14:00 Resp 34 H 11/15/21 14:00 BP 60/41 11/15/21 14:00 Pulse Ox 98 11/15/21 14:00 Intake & Output 11/14/21 11/15/21 11/15/21 18:59 06:59 18:59 Intake Total 1046 949.632 357.732 Output Total 3185 1395 1650 Balance -2139 -445.368 -1292.268 Weight 90.1 kg 90.1 kg Intake: IV 110 120 90 Sodium Chloride 0.9% 1, 110 120 90 000 ml @ 10 mls/hr IV . Q24H [facility] Rx#:[id number] Intake, IV Titration 100 95.632 97.732 Amount Dexmedetomidine/0.9% NaCl 100 95.632 97.732 (Pmx) 400 mcg In Empty Bag 1 bag @ 0.2 MCG/KG/HR 4.665 mls/hr IV .[id number] [facility] Rx#:[id number] Tube Feeding 626 674 170 Other 210 60 Output: Chest Tube Drainage 10 30 Chest Tube Right Upper 10 30 Anterior Chest Urine 3175 1365 1650 Other: Voiding Method Indwelling Catheter Indwelling Catheter Indwelling Catheter # Voids 1 # Bowel Movements 1 ABP, PAP, CO, CI - Last Documented Arterial Blood Pressure 120/111 - Exam GENERAL: The patient is lying in bed and is not in acute distress. LUNG: Trached and on ventilator. INTEGUMENTARY: Edema 1-2+ NEUROLOGICAL: Is on IV Precedex 0.6mcg/kg/hr. Higher mental function: The patient is awake, alert. Is oriented to her self. She is trying to verbalize but not producing any sound but can be understood thru lip reading and her nodding. She correctly stated some objects (watch and pen). She is following some commands (sticking tongue out, moving extremities). Cranial nerves: The pupils are round, equal and reactive to light. Visual patterson are hard to assess. EOM is intact looking to right and left and no nystagmus. No facial weakness. Motor: The strength is limited because of her condition. But is able to move the right side better than left. Right distal extremity is is 2-3 and right ankle is 3/5. Left fingers/wrist is few episode of flicker of fingers 1-2. Decrease tone throughout. Normal bulk. Sensation: Sensation is normal to touch throughout. Reflexes: Patient refused and was in pain upon attempting to perform. WORK-UP: * CT head on 11/08/21 showed no acute process. * CT head on 11/14/2021 is reported as negative. It is reported as bilateral mastoiditis was also significant left-sided otitis media. Cholesteatoma is possible. No change compared to recent exam on 11/08/2021. I personally reviewed the CT of the head and I do not appreciate any acute subacute ischemia and there is no interpretable hemorrhage * CT cervical spine is reported as previous cervical spine fusion surgery. Spondylitic change. No acute bony abnormality. No fracture. I personally reviewed this. Of the neck and the patient does have previous cervical fusion over the C5-C6 region but there is no severe spondylitic changes. * Carotid Doppler showed no significant stenosis. * 2-D echo from 11/01/2021 showed mild concentric LVH. EF is between 55-60%. Aortic valve not well visualized. - Labs CBC & Chem 7: 11/15/21 06:22 11/15/21 06:22 Labs: Abnormal Lab Results - Last 24 Hours (Table) 11/14/21 11/15/21 11/15/21 Range/Units 17:21 00:23 06:11 WBC (3.8-10.6) k/uL RBC (3.80-5.40) m/uL Hgb (11.4-16.0) gm/dL Hct (34.0-46.0) % MCHC (31.0-37.0) g/dL RDW (11.5-15.5) % Neutrophils # (1.3-7.7) k/uL Potassium (3.5-5.1) mmol/L Carbon Dioxide (22-30) mmol/L BUN (7-17) mg/dL Creatinine (0.52-1.04) mg/dL Glucose (74-99) mg/dL POC Glucose (mg/dL) 197 H 137 H 175 H (75-99) mg/dL Calcium (8.4-10.2) mg/dL 11/15/21 11/15/21 11/15/21 Range/Units 06:22 06:22 12:05 WBC 12.5 H (3.8-10.6) k/uL RBC 3.05 L (3.80-5.40) m/uL Hgb 8.4 L (11.4-16.0) gm/dL Hct 28.0 L (34.0-46.0) % MCHC 30.1 L (31.0-37.0) g/dL RDW 16.3 H (11.5-15.5) % Neutrophils # 9.1 H (1.3-7.7) k/uL Potassium 3.4 L (3.5-5.1) mmol/L Carbon Dioxide 35 H (22-30) mmol/L BUN 36 H (7-17) mg/dL Creatinine 0.32 L (0.52-1.04) mg/dL Glucose 163 H (74-99) mg/dL POC Glucose (mg/dL) 235 H (75-99) mg/dL Calcium 8.2 L (8.4-10.2) mg/dL Assessment and Plan Assessment: * Generalized weakness appears critical illness myopathy/neuropathy. * Left sided weakness > right sided. Unknown cause. Repeat CT head is negative for stroke and CT C-spine is negative for significant spondylotic change. * Encephalopathy, improving. * Ventilator-dependent respiratory failure * Status post tracheostomy and PEG placement * Status post Covid-19 pneumonia * B12 deficiency (elevated methylmalonic acid) * Folate deficiency * Vitamin B6 deficiency * History of cervical fusion (appears C5-C6 region) * Rheumatoid Arthritis. * Pneumothorax * Obesity * DVT left leg, currently on anticoagulation with Eliquis. Plan: * Cannot obtain MRI because of ventilator. If patient has asymmetry of weakness from one side to other recommend MRI Brain and C-spine as outpatient. 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 GBS was felt to be low on differential. Clinical picture appears more like critical illness myopathy/neuropathy. Patient also has nutritional deficiency with B12, folate and B6 deficiency. Consider EMG with NCS as outpatient. * Patient will need prolonged therapy. In the mean time recommend physical therapy and occupational therapy to work with her on a daily basis. * B12 586, methylmalonic acid elevated 0.45 (<0.40), folate 3.8 (4.4-31), vitamin B6 4 (5-50), hemoglobin A1c 4.9, CK 31 normal, aldolase 7.3 normal, rheumatoid factor 68. Patient's TSH is normal 1.38. Completed vitamin B12 injections 1000 g IM for total 3 days and started B12 1000mcg daily. We will also start vitamin B6 replacement. Continue folic acid 1 mg daily. * Patient currently on Eliquis for her history of DVT. * Patient has rheumatoid arthritis, always needed methotrexate. She has not received her methotrexate since last 2 months. * Will defer the rest of medical management to the primary and ICU team. The plan is discussed with the patient's nurse and update the patient's father (via phone). Her , he stated she had been having generalized weakness for the past 1.5 month and feels for the past one week is making improvement. Will follow-up sporadically. Jean-Paul Pope M.D. Neuro-Hospitalist Time with Patient: Less than 30
[2021-11-15] MEDS: CYANOCOBALAMIN 500 MCG TAB PO SCH (16:24)
[2021-11-15 18:04] LABS: Glucose,Whole Blood 160 mg/dL (75-99)
[2021-11-15] MEDS ORDERED: ARTIFICIAL TEARS-HYPROMELLOSE DROPS 15 ML BTL BOTH EYES PRN (18:38)
[2021-11-15] MEDS ORDERED: INSULIN DETEMIR (LEVEMIR) 100 UNIT/ML SYR SQ SCH (21:00)
[2021-11-15 23:36] LABS: Glucose,Whole Blood 168 mg/dL (75-99)
[2021-11-16] MEDS: INSULIN ASPART (NovoLOG) 100 UNIT/ML VIAL SQ SCH ×4 (00:17→18:44)
[2021-11-16] MEDS: DEXMEDETOMIDINE/0.9% NACL(PMX) 400 MCG in EMPTY BAG 1 BAG IV SCH ×3 (01:54→18:44)
[2021-11-16 05:56] LABS: Glucose,Whole Blood 173 mg/dL (75-99)
--- NOTE | 2021-11-16 06:10 | XR ---
EXAMINATION TYPE: XR chest 1V portable DATE OF EXAM: 11/16/2021 CLINICAL HISTORY: Difficulty breathing and pneumothorax progress study. TECHNIQUE: Single AP portable semiupright view of the chest is obtained. COMPARISON: Chest x-ray from one day earlier and older studies. FINDINGS: Stable tracheostomy tube and right-sided PICC line. Stable right-sided chest tube. Persistent small right apical pneumothorax estimated near 10%. Persistent bilateral confluent increas ed opacities. Patient more rotated to the right on current study. Cardiac sludge size stable and with in normal limits. Osseous structures are intact. IMPRESSION: Small right apical pneumothorax estimated near 10% despite chest tube placement redemonst rated and stable. Diffuse bilateral opacities consistent with edema and/or infiltrates redemonstrated . No significant change from one day earlier.
[2021-11-16 06:31] LABS: Anisocytosis Slight; Basophils # (A) 0.1 k/uL (0-0.2); Basophils % (A) 0 %; Eosinophils # (A) 0.2 k/uL (0-0.7); Eosinophils % (A) 1 %; HCT 28.7 % (34.0-46.0); HGB 8.6 gm/dL (11.4-16.0); Hypochromasia Marked; Lymphocytes # (A) 2.4 k/uL (1.0-4.8); Lymphocytes % (A) 20 %; MCHC 30.1 g/dL (31.0-37.0); MCV 89.6 fL (80.0-100.0); Mean Platelet Volume 9.5; Monocytes # (A) 0.7 k/uL (0-1.0); Monocytes % (A) 6 %; Neutrophils # (A) 8.4 k/uL (1.3-7.7); Neutrophils % (A) 71 %; Platelet Count 301 k/uL (150-450); RDW 16.1 % (11.5-15.5); WBC 11.9 k/uL (3.8-10.6)
[2021-11-16 06:51] LABS: African American GFR (CKD) >90 (>60 ml/min/1.73 sqM); Anion Gap -1 mmol/L; Blood Urea Nitrogen 30 mg/dL (7-17); Calcium 8.3 mg/dL (8.4-10.2); Carbon Dioxide 38 mmol/L (22-30); Chloride 100 mmol/L (98-107); Glucose 161 mg/dL (74-99); Non-African American GFR(CKD) >90 (>60 ml/min/1.73 sqM); Potassium 3.5 mmol/L (3.5-5.1); Sodium 137 mmol/L (137-145)
--- NOTE | 2021-11-16 08:28 | P.PN ---
Subjective Progress Note Date: 11/16/21 Principal diagnosis: Continued right-sided pneumothorax despite chest tube placement, acute hypoxic respiratory failure requiring mechanical ventilation, covid pneumonia on admissi on, remains unvaccinated, leukocytosis with low-grade fever, acute DVT to left lower extremity this admission on Eliquis, with history of prior DVT, new diagnosis of paroxysmal atrial fibrillation this admission. Previous medical history of factor V leiden disorder on Coumadin at home The patient was seen and examined this morning laying in bed in the intensive care unit, still being mechanically ventilated. She does open her eyes, follow commands, able to move all extremities except left foot although does remain very weak. Anterior chest tube continues to show continuous air leak. Chest x- ray reveals stable small right-sided pneumothorax, unchanged from previous. Objective - Vital Signs Vital signs: Vital Signs Temp 98.8 F 11/16/21 04:00 Pulse 98 11/16/21 06:00 Resp 31 H 11/16/21 06:00 BP 114/58 11/16/21 06:00 Pulse Ox 94 L 11/16/21 06:00 Intake & Output 11/15/21 11/16/21 11/16/21 18:59 06:59 18:59 Intake Total 311.720 4298.546 68 Output Total 1950 680 50 Balance -1404.268 320.546 18 Weight 90.1 kg 88 kg Intake: IV 120 120 10 Sodium Chloride 0.9% 1, 120 120 10 000 ml @ 10 mls/hr IV . Q24H [facility] Rx#:[id number] Intake, IV Titration 197.732 152.546 Amount Dexmedetomidine/0.9% NaCl 197.732 152.546 (Pmx) 400 mcg In Empty Bag 1 bag @ 0.2 MCG/KG/HR 4.665 mls/hr IV .[id number] [facility] Rx#:[id number] Tube Feeding 228 638 58 Other 90 Output: Urine 1950 680 50 Other: Voiding Method Indwelling Catheter Indwelling Catheter # Bowel Movements 1 ABP, PAP, CO, CI - Last Documented Arterial Blood Pressure 120/111 - Exam CONSTITUTIONAL: Appears comfortable, cooperative, no acute distress. Shakes head no when asked if in pain RESPIRATORY: Lungs sounds diminished bilaterally. Respirations even, nonlabored. Currently on mechanical ventilation through tracheostomy, ventilator settings this morning were FiO2 50%, tidal volume 400, respiratory rate 22, peep 5. CARDIOVASCULAR: S1, S2 present. Regular rate and rhythm, sinus rhythm on tele metry. Palpable peripheral pulses bilaterally. Left lower extremity edema present GASTROINTESTINAL: Abdomen soft, nontender, nondistended. Active bowel sounds present 4 quadrants. Tolerating tube feedings through PEG at 58 mL/h GENITOURINARY: Golden present draining clear yellow urine INTEGUMENTARY: Skin is warm and dry NEUROLOGIC: Opens eyes, follows commands, able to move all extremities except left foot, remains very weak INVASIVE LINES AND TUBES: Right-sided double-lumen PICC present. Right-sided anterior pleural chest tube present to wall suction, continuous air leak present - Allied health notes Allied health notes reviewed: nursing - Labs CBC & Chem 7: 11/16/21 05:57 11/16/21 05:57 Labs: Abnormal Lab Results - Last 24 Hours (Table) 11/15/21 11/15/21 11/15/21 Range/Units 12:05 18:02 23:34 WBC (3.8-10.6) k/uL RBC (3.80-5.40) m/uL Hgb (11.4-16.0) gm/dL Hct (34.0-46.0) % MCHC (31.0-37.0) g/dL RDW (11.5-15.5) % Neutrophils # (1.3-7.7) k/uL Carbon Dioxide (22-30) mmol/L BUN (7-17) mg/dL Creatinine (0.52-1.04) mg/dL Glucose (74-99) mg/dL POC Glucose (mg/dL) 235 H 160 H 168 H (75-99) mg/dL Calcium (8.4-10.2) mg/dL 11/16/21 11/16/21 11/16/21 Range/Units 05:54 05:57 05:57 WBC 11.9 H (3.8-10.6) k/uL RBC 3.20 L (3.80-5.40) m/uL Hgb 8.6 L (11.4-16.0) gm/dL Hct 28.7 L (34.0-46.0) % MCHC 30.1 L (31.0-37.0) g/dL RDW 16.1 H (11.5-15.5) % Neutrophils # 8.4 H (1.3-7.7) k/uL Carbon Dioxide 38 H (22-30) mmol/L BUN 30 H (7-17) mg/dL Creatinine 0.34 L (0.52-1.04) mg/dL Glucose 161 H (74-99) mg/dL POC Glucose (mg/dL) 173 H (75-99) mg/dL Calcium 8.3 L (8.4-10.2) mg/dL - Imaging and Cardiology Chest x-ray: report reviewed, image reviewed Assessment and Plan Assessment: 1. Continued right-sided pneumothorax despite chest tube placement, status post anterior chest tube placement by Dr. Gunn 2. Acute hypoxic respiratory failure requiring mechanical ventilation 3. Covid pneumonia on admission, remains on vaccinated 4. Leukocytosis with low-grade fever 5. Acute DVT to left lower extremity this admission on Eliquis, with history of prior DVT 6. New diagnosis of paroxysmal atrial fibrillation this admission, currently in sinus 7. History of factor V leiden disorder on Coumadin at home 8. Multiple other comorbidities Plan: 1. Continue anterior chest tube to continuous wall suction, monitor for resolution of air leak 2. Will monitor daily x-rays 3. Ventilator management per relocation manager 4. Medical management of other comorbidities per primary care 5. More recommendations to follow Time with Patient: Less than 30
[2021-11-16] MEDS: POTASSIUM BICARBONATE/CIT AC 20 MEQ TABLET.EFF PO SCH ×3 (08:50→20:16)
[2021-11-16] MEDS: PANTOPRAZOLE 40 MG/10 ML VIAL IV SCH (08:50)
[2021-11-16] MEDS: PYRIDOXINE 50 MG TAB PO SCH (08:51)
[2021-11-16] MEDS: ZINC SULFATE 220 MG CAP PO SCH (08:51)
[2021-11-16] MEDS: APIXABAN 5 MG TAB PO SCH ×2 (08:51→20:16)
[2021-11-16] MEDS: busPIRone HCl 5 MG TAB PO SCH ×2 (08:51→20:16)
[2021-11-16] MEDS: LOSARTAN 50 MG TAB PO SCH (08:51)
[2021-11-16] MEDS: QUEtiapine 50 MG TAB PO SCH ×2 (08:51→20:16)
[2021-11-16] MEDS: ASCORBIC ACID 500 MG TAB PO SCH ×2 (08:51→20:17)
[2021-11-16] MEDS: FOLIC ACID 1 MG TAB PO SCH (08:52)
[2021-11-16] MEDS: FUROSEMIDE 10 MG/ML 4 ML VIAL IV SCH (08:52)
[2021-11-16] MEDS: predniSONE 10 MG TAB PO SCH (08:52)
[2021-11-16] MEDS: CYANOCOBALAMIN 500 MCG TAB PO SCH (08:52)
[2021-11-16] MEDS: NYSTATIN 100,000 UNIT/ML SUSP 500,000 UNIT/5 ML CUP PO SCH ×4 (08:52→20:16)
[2021-11-16] MEDS: amLODIPine 5 MG TAB PO SCH (09:13)
[2021-11-16] MEDS: METOPROLOL TARTRATE 50 MG TAB PO SCH ×2 (10:02→20:16)
--- NOTE | 2021-11-16 11:39 | P.PN ---
Subjective Progress Note Date: 11/16/21 11/16/2021, I'm seeing the patient for a follow-up. The patient is awake and alert. The patient remains on Precedex 0.5 mcg/kg per minute. She is arousable. No significant agitation. No significant anxiety. She is less tachypneic pH is less tachycardic. He is also taking BuSpar at a dose of 50 mg twice a day and the patient is taking Seroquel 50 mg twice a day. This is controlled and increased level of anxiety. Meanwhile, the patient remains on a mechanical ventilator. She remains profoundly weak. I do not appreciate any improvement in her motor functions over the past 24-48 hours. She has unable to make a respiratory care practitioner or a fist with her hands. She is barely able to wiggle her fingers and toes. She is able to communicate. She is able to follow commands. She remains on a mechanical ventilator on assist control mode. Yesterday I dropped PEEP down to 6 and furthermore I dropped it down to 5. FiO2 currently is at 50% with a tidal volume of 400 and the rate of 22. She was diureses with Lasix. She is on Lasix 40 g IV every 24 hours and the dose has been modified. The overall fluid balance is -2.5 L over the past 24 hours. She remains on long- term medical condition with Eliquis pH is on vital high protein at the rate of 50 mL an hour. It was noted that the blood pressure was running low and I'm going to eliminate the Cozaar and the Norvasc for now. She is on metoprolol 50 mg twice a day. She is also on Lasix 40 g IV every 24 hours. She is on prednisone 10 mg as part of her taper. She is on Levemir insulin 5 units at bedtime along with that she is taking Effexor coverage. On her chest x-ray, she continues to have a persistent right apical pneumothorax. There is diffuse bilateral pulmonary infiltrates which remain unchanged. The patient continues to have an open air leak. As mentioned earlier, the volume loss in terms of the recurrent tidal volume is less and minimal at this point in time. Nevertheless, there is still persistent air leak and there is still a persistent pneumothorax on the right. Objective - Vital Signs Vital signs: Vital Signs Temp 99.2 F 11/16/21 08:00 Pulse 107 H 11/16/21 09:00 Resp 36 H 11/16/21 09:00 BP 94/61 11/16/21 09:00 Pulse Ox 97 11/16/21 09:00 Intake & Output 11/15/21 11/16/21 11/16/21 18:59 06:59 18:59 Intake Total 412.656 3065.546 495.097 Output Total 1950 680 580 Balance -1404.268 320.546 -84.903 Weight 90.1 kg 88 kg Intake: IV 120 120 40 Sodium Chloride 0.9% 1, 120 120 40 000 ml @ 10 mls/hr IV . Q24H [facility] Rx#:[id number] Intake, IV Titration 197.732 152.546 45.097 Amount Dexmedetomidine/0.9% NaCl 197.732 152.546 45.097 (Pmx) 400 mcg In Empty Bag 1 bag @ 0.2 MCG/KG/HR 4.665 mls/hr IV .[id number] [facility] Rx#:[id number] Tube Feeding 228 638 290 Other 90 120 Output: Chest Tube Drainage 0 Chest Tube Right Upper 0 Anterior Chest Urine 1950 680 580 Other: Voiding Method Indwelling Catheter Indwelling Catheter # Bowel Movements 1 ABP, PAP, CO, CI - Last Documented Arterial Blood Pressure 120/111 - Exam GENERAL EXAM: Awake and follows simple command, trached to the ventilator, on assist control mode of ventilation with a rate of 30, tidal volume 400, FiO2 of 40% with a PEEP of 5, patient remains on a low dose Precedex HEAD: Normocephalic/atraumatic. EYES: Normal reaction of pupils, equal size. Conjunctiva pink, sclera white. NOSE: Clear with pink turbinates. THROAT: No erythema or exudates. NECK: No masses, no JVD, no thyroid enlargement, no adenopathy. CHEST: No chest wall deformity. Symmetrical expansion. 1 right-sided chest tubes in place, there is continous air leak from right-sided chest tube LUNGS: Equal air entry with no crackles, wheeze, rhonchi or dullness. CVS: Irregular rate and rhythm, normal S1 and S2, no gallops, no murmurs, no rubs ABDOMEN: Soft, nontender. No hepatosplenomegaly, normal bowel sounds, no guarding or rigidity. PEG tube in place with tube feedings infusing with vital HP EXTREMITIES: No clubbing, significant gen edema, no cyanosis, 2+ pulses and upper and lower extremities. MUSCULOSKELETAL: Muscle strength and tone extremely weak SPINE: No scoliosis or deformity SKIN: No rashes CENTRAL NERVOUS SYSTEM:Awke and alert, trached to the ventilator, Follows simple command. No focal deficits, tone is normal in all 4 extremities. Generalized motor weakness in all 4 extremities and the patient has difficulties with movement and motor functions. - Labs CBC & Chem 7: 11/16/21 05:57 11/16/21 05:57 Labs: Abnormal Lab Results - Last 24 Hours (Table) 11/15/21 11/15/21 11/15/21 Range/Units 12:05 18:02 23:34 WBC (3.8-10.6) k/uL RBC (3.80-5.40) m/uL Hgb (11.4-16.0) gm/dL Hct (34.0-46.0) % MCHC (31.0-37.0) g/dL RDW (11.5-15.5) % Neutrophils # (1.3-7.7) k/uL Carbon Dioxide (22-30) mmol/L BUN (7-17) mg/dL Creatinine (0.52-1.04) mg/dL Glucose (74-99) mg/dL POC Glucose (mg/dL) 235 H 160 H 168 H (75-99) mg/dL Calcium (8.4-10.2) mg/dL 11/16/21 11/16/21 11/16/21 Range/Units 05:54 05:57 05:57 WBC 11.9 H (3.8-10.6) k/uL RBC 3.20 L (3.80-5.40) m/uL Hgb 8.6 L (11.4-16.0) gm/dL Hct 28.7 L (34.0-46.0) % MCHC 30.1 L (31.0-37.0) g/dL RDW 16.1 H (11.5-15.5) % Neutrophils # 8.4 H (1.3-7.7) k/uL Carbon Dioxide 38 H (22-30) mmol/L BUN 30 H (7-17) mg/dL Creatinine 0.34 L (0.52-1.04) mg/dL Glucose 161 H (74-99) mg/dL POC Glucose (mg/dL) 173 H (75-99) mg/dL Calcium 8.3 L (8.4-10.2) mg/dL Assessment and Plan Plan: #1. Acute hypoxic respiratory failure related to COVID-19 pneumonia complicated with ARDS. Patient was intubated and on 09/25/2021, status post tracheostomy a nd PEG tube placement on 10/14/2021. The patient remains ventilator dependent and the patient continues to have a persistent pneumothorax on the right and order of 5% and there is persistent air leak on the Pleur-evac. Nevertheless, she has adequate oxygenation and ventilation for now. She remains on a volume cycle assist-control mode of mechanical ventilation. The chest x-ray shows persistent right-sided pneumothorax, and that returned tidal volume loss is minimal at this point in time and there is no air leak. Meanwhile, right-sided chest tube remains in place and the patient continues to have a persistent pneumothorax in the order of 5% on the right. I was able to wean down the PEEP and she is currently on a 5 of PEEP with an FiO2 of 40%. Weaning parameters are poor. Rapid shallow breathing index is very high and this essentially due to her significant neuromuscular motor weakness. #2. Acute COVID 19 related pneumonia, still on prednisone which is a part of the burst taper. The patient is currently on prednisone 10 mg by mouth daily. #3. Generalized motor weakness in all 4 extremities related to critical illness polyneuropathy and myopathy, extensive edema in all 4 extremities, currently on IV Lasix. The patient achieve a negative fluid balance and the edema is i mproved in all 4 extremities. #4. Bilateral pneumothoraces requiring bilateral chest tube placements, with subsequent removal and recurrence of right-sided pneumothorax, requiring placement of another chest tube on the right, and subsequent Thoravent placement on 10/25/2021, and subsequent removal of the Thoravent on 10/29/2021 and placement of another right-sided chest tube on 10/29/2021. The patient is a persistent air leak in the right sided chest tube and there is a persistent pneumothorax on the right and order of 5% %. Left lung is well expanded for now. #5. Acute deep vein thrombosis on Eliquis, no signs of bleeding #6. New-onset A. fib on 10/31/2021, currently in sinus, patient was on Cardizem drip, now on oral Cardizem, remains on Eliquis, currently in sinus rhythm #7. Subcutaneous emphysema resolved #8. Prior history of DVT #9. Increased anxiety #10. Mildly elevated liver enzymes secondary to COVID-19, recovered #11. Nonsustained ventricular tachycardia resolved #12. History of fibromyalgia #13 chronic anemia, multifactorial, expected outcome of prolonged ICU stay #14 critical illness polyneuropathy and myopathy with profound weakness in all 4 extremities. Plan Continue ventilator support I noticed is amount of air leak is less . The patient is still has a persistent air leak and a persistent pneumothorax on the left I'm going to drop the PEEP down to5 as the patient is able to tolerate and maintain a saturation above 95%. The current FiO2 is a 40% Continue Lasix dose to 40 mg once a day Keep the prednisone low at 10 mg a day Wean off Precedex and gradually wean it down based on her level of anxiety and agitation Continue Seroquel Continue BuSpar Continue Eliquis for long-term anticoagulation Continued IV Protonix Continue vital high protein for enteral feeding and nutritional support Physical therapy for passive range of motion We'll check weaning parameters, these are being checked on a daily basis. The patient rapid shallow breathing index. She is not ready for any weaning at this point in time. Discontinue the Cozaar Discontinue the Norvasc Monitor the blood pressure This will be a prolonged wean as the patient has significant amount of motor weakness in all 4 extremities. Condition remains critical and will continue to follow make further accommodation based on her progress. This critically care evaluation was done and more than 30 minutes. Time with Patient: Greater than 30
[2021-11-16 12:26] LABS: Glucose,Whole Blood 225 mg/dL (75-99)
[2021-11-16] MEDS: SODIUM CHLORIDE 0.9% 1,000 ML IV SCH (16:40)
[2021-11-16 17:37] LABS: Glucose,Whole Blood 167 mg/dL (75-99)
[2021-11-16] MEDS: INSULIN DETEMIR (LEVEMIR) 100 UNIT/ML SYR SQ SCH (20:17)
--- NOTE | 2021-11-16 22:37 | P.PN ---
Subjective Progress Note Date: 11/14/21 This is a 61-year-old female who was recently admitted with acute COVID-19 pneumonia with acute COVID-19 bilateral interstitial pneumonia and also with transaminitis and being closely monitored. Patient remains in the ICU and currently intubated and sedated with an FiO2 of 70% and PEEP is 18. 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 Patient did have a venous Doppler study done recently which showed left leg DVT and patient is maintained on Eliquis will continue. Patient also continues on empiric antibiotics and awaiting for sputum culture finalized. Patient was started on IV cefepime and will continue. Patient is also continued on oral dexamethasone along with vitamin and zinc supplements and will continue. Patient with some mild volume overload and given a dose of IV Lasix push today. 09/29/2021 Patient is seen and evaluated this morning continues to be closely monitored in the ICU and continues to be on mechanical ventilation and sedated. FiO2 was increased at 80% with a PEEP of 18 and oxygen saturations between 87-91%. Patient developing subcutaneous emphysema in the neck and chest wall area and chest x-ray today shows bilateral multifocal and confluent opacification is redemonstrated consistent with COVID-19 infection with a new small left apical pneumothorax estimated under 5% with new pneumomediastinum and recurrent overlying subcutaneous emphysema noted. Patient is white blood count mildly elevated at 16.1 and is continued on oral dexamethasone along with oral eliquis for anticoagulation. Patient continues to be on IV cefepime and blood and sputum cultures are negative thus far. 09/30/2021 Patient is seen today continues to be closely monitored in the ICU with multiple medical consultations following. Patient continues to be mechanically intubated and sedated with continued subcutaneous emphysema noted. Chest xray shows a trace left apical pneumothorax that is minimally smaller 7mm versus 1cm previously, extensive bilateral subcutaneous emphysema persists and diffuse interstitial changes and bilateral patchy opacities persist with slight improvement in aeration in the lower lungs. Per nursing staff corbin was clogged with copious amounts of white discharge and will add diflucan and corbin catheter has been changed and draining adequately. Patient continues on IV cefepime. Patient tolerating tube feeds and will continue. 10/01/2021 Patient is seen and evaluated in follow up this morning and continues to be closely monitored. Multiple medical consultations following and patient con tinues to be on mechanical vent and sedated. Patient continues on IV Cefepime and diflucan. Patient chest xray today shows stable extensive subcutaneous emphysema, no pneumothorax, and patchy bilateral lung infiltrates remain present. INflammatory markers trending down. 10/04/2021 Patient is seen in follow-up continues to be closely monitored in the ICU. Patient remains on mechanical vent with an FI02 of 65% and peep is 18. Weaning trials being attempted with pulmonary dumpster operator following closely. Patient continues with extensive subq emphysema noted on exam. 10/05/2021 Patient Is seen and evaluated this morning with continued attempts at weaning and continues on mechanical vent and intubated with pulmonary dumpster operator following closely. Patient remains on Eliquis which will be held as surgery Dr. Nelson was consulted for possible PEG and trach tube placement for unsuccessful attempts at weaning from ventilation and prolonged hospitalization on mechanical vent. Chest x-ray today shows recurrent tiny left apical pneumothorax estimated under 5% with worsening overlying subcutaneous emphysema and again pneumomediastinum redemonstrated with multifocal confluent opacification's redemonstrated consistent with COVID-19 infection and/or arts are redemonstrated with no significant change from one day previously. Patient continues on FiO2 of 65% and PEEP was weaned down to 14 today. IV cefepime discontinued. 10/06/2021 Patient is seen in follow-up this morning per nursing staff patient had multiple runs of ectopy an irregular heart rate and rhythms with PVCs and cardiology consulted. Patient was placed on lidocaine drip and was originally on eliquis is currently on hold for possible PEG and trach placement with general surgery following. Patient had difficulty maintaining oxygen saturations and FiO2 was increased to 100% and PEEP continues at 14. Multiple medical consultations following and patient continues on oral steroids along with vitamin and zinc supplements along with fluconazole. Patient being started on IV Lasix daily and recommend close monitoring of electrolytes and kidney functions. 10/07/2021 Patient is seen in follow-up this morning continues to be monitored closely in the ICU with multiple medical consultations following. Patient is currently on mechanical vent with an FiO2 of 80% and PEEP is 16. General surgery also following for possible PEG and trach placement and will need to discuss with surgery about when this will occur. Patient remains on fluconazole. She also continues on vitamin and zinc supplements along with oral dexamethasone, clevidipine, Nimbex, IV Lasix, fentanyl and propofol and is off norepinephrine. Chest x-ray shows stable bilateral lung infiltrates. 10/08/2021 Patient is seen this morning continues to be on mechanical vent with an FiO2 of 85% and PEEP of 16. Patient continues with extensive subcutaneous emphysema and plans are for possible PEG and trach placement although on hold until possibly next week once more stable. Patient continues on Cleviprex along with fentanyl and propofol and is receiving IV Lasix daily. Patient also continues on lidocaine drip which is currently on hold and cardiology is following closely. Anticoagulant was resumed for now again until more stable to undergo PEG and trach placement. Chest x-ray today shows persistent bilateral multifocal and confluent increased opacification is with persistent overlying subcutaneous emphysema noted in pneumomediastinum is again redemonstrated. 10/09/2021 Patient evaluated today in ICU mechanical ventilation with FiO2 of 80%. Chest x-ray this morning shows similar multifocal airspace opacities and stable support lines and tubes. Similar subcutaneous emphysema scattered throughout the visualized thorax. PEG and trach plan for next week once more stable. Current meds include Cleviprex, Nimbex, fentanyl, propofol. She is receiving IV fluconazole, as well as IV Lasix. Levophed and Lidocaine gtt;s are on hold. Positive bowel sounds. Current vitals afebrile, heart rate 71, blood pressure 135/60 and oxygen saturation is 93%. Respirations 30. Labs today, white count 17, hemoglobin 11.6, sodium 139, potassium 3.8, BUN 34, creatinine 0.91, CO2 33, calcium 8.7, ALT 54, albumin 2.8 with blood sugars in the 100s. 10/10/2021 Patient evaluated today in the ICU on the mechanical VENT with fio2 of 100%. Po sitive bowel movement today, Stage 2 pressure ulcer on coccyx per RN, optifoam ordered. Per RN they were unable to patient as she was desaturating. They're unable to wean Fi02 currently as she does desaturate with any time of movement. She was lying more on her right side during evaluation and pulse ox was dropping into high 80s she was being repositioned by nurses. Plan is to PEG/TRACH patient tomorrow. Last family update was 4 days ago. We will call and discuss case today. Patient is afebrile, heart rate 84, respirations 30, blood pressure 141/55, 92% oxygen saturation on 100% Fi02, which was increased today up from 70 Fi02%. Labs today show WBC of 15.6, hgbl 10.7, sodium 138, potassium 3.9, chloride 100, CO2 37, glucose 117, calcium 8.2. Chest xray today shows pneumonia, ARDS. 10/11/2021 Patient is seen and evaluated in follow-up this morning continues to be closely monitored in the ICU and patient is continued on FiO2 of 90% and PEEP is 16 with multiple medical consultations following. Chest x-ray today shows new left- sided pneumothorax estimated 10-20% with overlying subcutaneous emphysema and pneumomediastinum redemonstrated with bilateral multifocal and confluent opac ification's redemonstrated consistent with COVID-19 infection and/or arts and no significant change from one day previous. Patient is status post left chest tube insertion with pulmonary dumpster operator. Cardiology following and patient is off lidocaine drip and maintaining sinus rhythm. Patient also continues on vitamin and zinc supplements along with oral dexamethasone and patient continues on IV Lasix 40 mg daily. Patient also continues off norepinephrine and is currently maintained on IV cefepime along with fluconazole. General surgery following as well and plan is for peg and trach placement in the am 10/12/2021 Patient is seen in the ICU this morning continues to be closely monitored by multiple medical consultations. Patient was scheduled for PEG and trach placement with general surgery Dr. Nelson today although canceled as patient became hypotensive requiring Levophed along with acute blood loss anemia and hemoglobin dropped to 6.5 this morning requiring 1 unit of PRBC. Patient continues with left chest tube with pneumothorax and chest x-ray today shows the jahaira is difficult to clearly identify on the present exam and the ET tube may be approximately 1 cm from the jahaira and there are bilateral chest tubes present with continued diffuse interstitial opacification is and more focal bibasilar opacification is with subcutaneous emphysema persists along the upper chest with slight improvement on the left. No appreciable pneumothorax noted. Patient having worsening right pleural effusion last night and received a right- sided chest tube with pulmonary dumpster operator. FiO2 is 90% and PEEP of 16. Again overall prognosis remains extremely poor and guarded. 10/13/2021 Patient is seen in follow-up this morning in the ICU with multiple medical consultations following. Lengthy discussion was had with pulmonary dumpster operator and family members and would like to continue with full CODE STATUS and plan is in place for PEG tube and tracheostomy placement tomorrow. Anticoagulant on hold and Dr. Nelson plans for surgery tomorrow. Patient continues on oral dexamethasone along with IV cefepime, vitamin and zinc supplements. Patient also continues on Cleviprex and Nimbex. Patient also continues on fentanyl and propofol and will continue. Chest x-ray today shows stable portable chest with bilateral chest tubes without sizable pneumothorax identified and continued subcutaneous air persists with persistent interstitial changes bilaterally with airspace disease in the bilateral lung bases that are unchanged. FiO2 is 60% and PEEP of 16. 10/14/2021 Patient is seen and evaluated in the ICU being closely monitored with multiple medical consultations following. at the bedside today and had detailed discussion with overall prognosis. Plan is to proceed with PEG tube and tracheostomy placement with surgery Dr. Nelson today and anticoagulant continues to be on hold for this procedure. Patient continues on mechanical ventilation with an FiO2 of 70% and PEEP of 16. Chest x-ray today shows improving infiltrate with bibasilar residual and bilateral chest tubes remain present with no pneumothorax evident on either side and again subcutaneous emphysema is noted. 10/15/2021 Patient is seen in the ICU being closely monitored. Patient is status post PEG and trach placement yesterday. Chest x-ray today shows bilateral patchy lung infiltrates greater at the right base with diffuse increased lung markings and bilateral chest tubes remain present and subcutaneous emphysema on the right is diminished. Patient continues with an FI02 of 60 and peep is 16. To resume tube feeds per surgery. Patient continues on norepinephrine and sedation. Patient is receiving IV lasix daily. 10/16/2021 Patient is currently in the MICU and remains on ventilator. Status post tracheostomy and PEG tube placement on 10/14/2021. Patient is sedated and paralyzed. Also on Cleviprex. Chest x-ray showed no acute cardiopulmonary disease with no interval changes. Laboratory data showed WBC 16.9 hemoglobin 8.9 and platelets 278 BUN 19 and creatinine 0.5 and calcium 8.1 patient is being continued on dexamethasone 6 mg daily, Lasix 40 mg IV daily and multivitamins and anticoagulation with Eliquis. Pulmonary and general surgery is on board. 10/17/2021 Patient is in the MICU. Remains on the current ventilator via tracheostomy. Status post tracheostomy and PEG tube placement on 10/14/2021. Sedated and paralyzed and also on fentanyl drip. Currently on assist control with tidal volume of 420, FiO2 80% and PEEP of 16. Respiratory of 30. Chest x-ray showed no interval change in acute cardiopulmonary disease Laboratory data showed WBC 15.8 hemoglobin 8.2 and platelets 271 Sodium 136 potassium 3.1 chloride 100 bicarb is 32 BUN 21 creatinine 0.48 and albumin 2.3 Patient is being continued on Lasix IV, dexamethasone and anticoagulation with Eliquis. 10/18/2021 Patient is seen in follow-up and continues in the ICU with multiple medical consultations following. Patient continues on mechanical vent with an FI02 of 70% and peep is 16. Chest xray shows overall stable exam with interstitial changes and bilateral patchy infiltrates with right greater than left and greater at the bases with bilateral chest tubes noted. no appreciable pneumothorax. Patient continues on propofol and fentanyl along with cleviprex and rocuronium. Eliquis has been resumed. Potassium is 3.3 and will be replaced per protocol. Patient also continues to receive IV lasix daily. 10/19/2021 Patient is seen this morning and continues to be in the ICU with multiple medical consultations following. Patient continues with bilateral chest tubes and remains on mechanical ventilation with an FiO2 of 65% and PEEP is 16. Chest x-ray today shows Bilateral multifocal and confluent opacification greatest in the lower lungs consistent with COVID-19 infection and/or ARDS all redemonst rated with no significant change from one day earlier and continued bilateral chest tubes without pneumothorax redemonstrated. 10/20/2021 Patient continues to be in the ICU under close critical monitoring with multiple medical consultations following. Patient continues with bilateral chest tubes although per nursing staff may possibly discontinued today. Chest x-ray today shows stable portable chest with no change in scattered mixed interstitial and alveolar infiltrates. Patient remains on mechanical ventilation via tracheostomy with an FiO2 of 55% and PEEP is 15. Patient continues on Cleviprex along with rocuronium and sedation. 10/21/2021 Patient continues in the MICU being closely monitored. Chest tubes were removed today and chest xray stable with interstitial changes and basilar ground glass, that is similar to previous with slight improvement. Patient continues on mechanical vent with an FI02 of 70% and peep is 14. Patient remains sedated and per nursing staff working on weaning paralytics. Patient continued on rocuronium. Patient is tolerating tube feeds and also continues on IV lasix daily with generalized edema noted throughout. 10/22/2021 Patient is currently MICU. Patient was taken off paralytic and chest tubes yesterday. Continued on pressure support with PEEP of 13. 88 this morning patient again desaturated. Patient became hypotensive and patient was started on norepinephrine. Chest x-ray showed large pneumothorax on the right. Right chest tube was r einserted. Patient is on pressure control. Remains sedated and mechanically ventilated. Laboratory data showed WBC 13.7 hemoglobin 7.7 and platelets 314 Sodium 140 potassium 3.0 chloride 102 bicarb is 37 BUN 19 and creatinine 0.44 and calcium 8.1 Patient is being continued dexamethasone multivitamins and anticoagulation with Eliquis. Patient is also on IV Lasix. Potassium will be replaced. 10/23/2021 Patient is currently MICU. Patient is on mechanical ventilator via trach tube. Patient developed right-sided tension pneumothorax. Again patient had issues with pneumothorax around 10 PM yesterday. Chest tube has to be replaced. Patient is also requiring pressor support. Off pressors this morning. On pressure support. PEEP of 13 and FiO2 100%. Laboratory data showed WBC 13.7 hemoglobin 7.7 and platelets 314 Sodium 140 potassium 3.0 chloride 102 bicarb is 37 BUN 19 and creatinine 0.44 and calcium 8.1 cultures have been negative. Patient is being current on dexamethasone, Eliquis and also IV Lasix 40 mg daily. 10/24/2021 Patient is currently in the MICU. Currently on mechanical ventilator via tracheal tube. Continue propofol and fentanyl. Remains pressure support with PEEP of 13 FiO2 reduced to 70%. Chest x-ray showed bilateral multifocal and confluent opacities consistent with COVID-19 infection and ARDS are redemonstrated and stable. Right-sided chest tube with small apical pneumothorax estimated 10 to 15% improved from 1 day earlier. Pneumo mediastinum noted. Laboratory data showed WBC 14.2 hemoglobin 7.1 and platelets 317 Sodium 140 potassium 3.2 chloride 104 bicarb is 38 BUN 20 and creatinine 0.46 and calcium 7.8. Patient is being continued on dexamethasone, Eliquis and also on IV Lasix. Currently on multivitamins. 11/13/2021 Patient is currently in the MICU. Awake alert and opening her eyes with verbal stimuli. Continues to be mechanical ventilator via tracheostomy tube. And also right sided chest tube in place.. Chest x-ray showed there is not significant interval change. Correlate for pneumonia. Stable right pneumothorax. Patient is being Precedex due to restlessness Anxiety. Patient is IV Lasix 40 mg twice daily. Tolerating tube feedings. Patient has been afebrile. Currently being continued anticoagulation with El iquis and prednisone 10 mg daily which is being tapered down. Neurology and pulmonary is on board. 11/14/2021 Patient is in the MICU. Awake alert but he is extremely weak. Patient was also Precedex drip. Otherwise remains on mechanical ventilator with assist control tidal volume of 400 and respiratory 30 and FiO2 50% PEEP of 10. Patient does chest tube due to right-sided pneumothorax. Chest x-ray showed stable right- sided pneumothorax. Patient is also receiving IV Lasix 40 mg every 12. Also on long-term anticoagulation with Eliquis. Patient is on prednisone which is being tapered down. Patient has been afebrile. Tolerating tube feedings. No diarrhea.. Laboratory showed WBC 14.6 hemoglobin 8.8 and platelets 330 sodium 137 potassium potassium 3.6 chloride 104 bicarb is 31 BUN 30 and creatinine 0.27 and calcium 8.2 Current medications reviewed. Objective - Vital Signs Vital signs: Vital Signs Temp 98.6 F 11/14/21 12:00 Pulse 110 H 11/14/21 15:00 Resp 39 H 11/14/21 15:00 BP 90/52 11/14/21 15:00 Pulse Ox 97 11/14/21 15:00 Intake & Output 11/13/21 11/14/21 11/14/21 18:59 06:59 18:59 Intake Total 1138 978.933 686 Output Total 2550 1410 2285 Balance -1412 -431.067 -2459 Weight 91.9 kg Intake: IV 110 130 80 Sodium Chloride 0.9% 1, 110 130 80 000 ml @ 10 mls/hr IV . Q24H [facility] Rx#:[id number] Intake, IV Titration 200 94.933 Amount Dexmedetomidine/0.9% NaCl 200 94.933 (Pmx) 400 mcg In Empty Bag 1 bag @ 0.2 MCG/KG/HR 4.665 mls/hr IV .[id number] [facility] Rx#:[id number] Tube Feeding 638 754 456 Other 190 150 Output: Chest Tube Drainage 70 10 Chest Tube Right Upper 70 10 Anterior Chest Urine 2550 1340 2275 Other: Voiding Method Indwelling Catheter Indwelling Catheter Indwelling Catheter # Voids 1 ABP, PAP, CO, CI - Last Documented Arterial Blood Pressure 120/111 - Exam - Exam -GENERAL: The patient is intubated status post tracheostomy. Patient generally weak HEENT: Pupils are round and equally reacting to light. EOMI. No scleral icterus. No conjunctival pallor. Normocephalic, atraumatic. No pharyngeal erythema. No thyromegaly. CARDIOVASCULAR: S1 and S2 present. No murmurs, rubs, or gallops. -PULMONARY: Bilateral decreased breath sounds with bilateral crepitation ABDOMEN: Soft, nontender, nondistended, normoactive bowel sounds. No palpable organomegaly. MUSCULOSKELETAL: No joint swelling or deformity. EXTREMITIES: No cyanosis, clubbing, or pedal edema. -NEUROLOGICAL: Gross neurological examination did not reveal any focal deficits. General awake, more on the left side SKIN: No rashes. no petechiae. - Labs CBC & Chem 7: 11/16/21 05:57 11/16/21 05:57 Labs: Abnormal Lab Results - Last 24 Hours (Table) 11/13/21 11/14/21 11/14/21 Range/Units 17:58 00:46 05:36 POC Glucose (mg/dL) 167 H 136 H 150 H (75-99) mg/dL 11/14/21 Range/Units 11:08 POC Glucose (mg/dL) 213 H (75-99) mg/dL Microbiology - Last 24 Hours (Table) 11/07/21 11:35 Blood Culture - Final Blood No Growth after 144 hours 11/07/21 10:20 Blood Culture - Final Blood No Growth after 144 hours Assessment and Plan Assessment: Acute COVID-19 infection with acute COVID-19 bilateral interstitial pneumonia with hypoxic hypercarbic respiratory failure on mechanical vent status post trach and peg tube placement on 10/14/2021 Worsening right side pneumothorax status post chest tube placement and thoravent removal on 10/29/2021 Right pneumothorax status post chest tube placement Critical illness myopathy and neuropathy Atrial fibrillation, new onset, currently rate controlled on metoprolol and cardizem Non-sustained ventricular tachycardia, currently sinus Acute left leg deep vein thrombosis Primary hypercoagulable state and factor V deficiency Obesity with a body mass index of 36.0 DVT prophylaxis: on Eliquis No code Plan: This is a pleasant 61 years old female with covert pneumonia, hypoxia, DVT and A. fib. Continue with multiple vitamins and prednisone 60 mg-->10mg taper Patient is tolerating tube feeding. CT surgery is on board. Chest tube due to right pneumothorax. Continue with the [facility] cardiology and pulmonary/critical care team on the case. Labs and medication were reviewed.. Monitor lytes and vitals. DVT and GI prophy laxis. DVT prophylaxis: Eliquis GI Prophylaxis: Ppi Prognosis is extremely guarded Time with Patient: Greater than 30
--- NOTE | 2021-11-16 22:40 | P.PN ---
Subjective Progress Note Date: 11/15/21 This is a 61-year-old female who was recently admitted with acute COVID-19 pneumonia with acute COVID-19 bilateral interstitial pneumonia and also with transaminitis and being closely monitored. Patient remains in the ICU and currently intubated and sedated with an FiO2 of 70% and PEEP is 18. 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 Patient did have a venous Doppler study done recently which showed left leg DVT and patient is maintained on Eliquis will continue. Patient also continues on empiric antibiotics and awaiting for sputum culture finalized. Patient was started on IV cefepime and will continue. Patient is also continued on oral dexamethasone along with vitamin and zinc supplements and will continue. Patient with some mild volume overload and given a dose of IV Lasix push today. 09/29/2021 Patient is seen and evaluated this morning continues to be closely monitored in the ICU and continues to be on mechanical ventilation and sedated. FiO2 was increased at 80% with a PEEP of 18 and oxygen saturations between 87-91%. Patient developing subcutaneous emphysema in the neck and chest wall area and chest x-ray today shows bilateral multifocal and confluent opacification is redemonstrated consistent with COVID-19 infection with a new small left apical pneumothorax estimated under 5% with new pneumomediastinum and recurrent overlying subcutaneous emphysema noted. Patient is white blood count mildly elevated at 16.1 and is continued on oral dexamethasone along with oral eliquis for anticoagulation. Patient continues to be on IV cefepime and blood and sputum cultures are negative thus far. 09/30/2021 Patient is seen today continues to be closely monitored in the ICU with multiple medical consultations following. Patient continues to be mechanically intubated and sedated with continued subcutaneous emphysema noted. Chest xray shows a trace left apical pneumothorax that is minimally smaller 7mm versus 1cm previously, extensive bilateral subcutaneous emphysema persists and diffuse interstitial changes and bilateral patchy opacities persist with slight improvement in aeration in the lower lungs. Per nursing staff corbin was clogged with copious amounts of white discharge and will add diflucan and corbin catheter has been changed and draining adequately. Patient continues on IV cefepime. Patient tolerating tube feeds and will continue. 10/01/2021 Patient is seen and evaluated in follow up this morning and continues to be closely monitored. Multiple medical consultations following and patient con tinues to be on mechanical vent and sedated. Patient continues on IV Cefepime and diflucan. Patient chest xray today shows stable extensive subcutaneous emphysema, no pneumothorax, and patchy bilateral lung infiltrates remain present. INflammatory markers trending down. 10/04/2021 Patient is seen in follow-up continues to be closely monitored in the ICU. Patient remains on mechanical vent with an FI02 of 65% and peep is 18. Weaning trials being attempted with pulmonary cost control analyst following closely. Patient continues with extensive subq emphysema noted on exam. 10/05/2021 Patient Is seen and evaluated this morning with continued attempts at weaning and continues on mechanical vent and intubated with pulmonary cost control analyst following closely. Patient remains on Eliquis which will be held as surgery Dr. Nelson was consulted for possible PEG and trach tube placement for unsuccessful attempts at weaning from ventilation and prolonged hospitalization on mechanical vent. Chest x-ray today shows recurrent tiny left apical pneumothorax estimated under 5% with worsening overlying subcutaneous emphysema and again pneumomediastinum redemonstrated with multifocal confluent opacification's redemonstrated consistent with COVID-19 infection and/or arts are redemonstrated with no significant change from one day previously. Patient continues on FiO2 of 65% and PEEP was weaned down to 14 today. IV cefepime discontinued. 10/06/2021 Patient is seen in follow-up this morning per nursing staff patient had multiple runs of ectopy an irregular heart rate and rhythms with PVCs and cardiology consulted. Patient was placed on lidocaine drip and was originally on eliquis is currently on hold for possible PEG and trach placement with general surgery following. Patient had difficulty maintaining oxygen saturations and FiO2 was increased to 100% and PEEP continues at 14. Multiple medical consultations following and patient continues on oral steroids along with vitamin and zinc supplements along with fluconazole. Patient being started on IV Lasix daily and recommend close monitoring of electrolytes and kidney functions. 10/07/2021 Patient is seen in follow-up this morning continues to be monitored closely in the ICU with multiple medical consultations following. Patient is currently on mechanical vent with an FiO2 of 80% and PEEP is 16. General surgery also following for possible PEG and trach placement and will need to discuss with surgery about when this will occur. Patient remains on fluconazole. She also continues on vitamin and zinc supplements along with oral dexamethasone, clevidipine, Nimbex, IV Lasix, fentanyl and propofol and is off norepinephrine. Chest x-ray shows stable bilateral lung infiltrates. 10/08/2021 Patient is seen this morning continues to be on mechanical vent with an FiO2 of 85% and PEEP of 16. Patient continues with extensive subcutaneous emphysema and plans are for possible PEG and trach placement although on hold until possibly next week once more stable. Patient continues on Cleviprex along with fentanyl and propofol and is receiving IV Lasix daily. Patient also continues on lidocaine drip which is currently on hold and cardiology is following closely. Anticoagulant was resumed for now again until more stable to undergo PEG and trach placement. Chest x-ray today shows persistent bilateral multifocal and confluent increased opacification is with persistent overlying subcutaneous emphysema noted in pneumomediastinum is again redemonstrated. 10/09/2021 Patient evaluated today in ICU mechanical ventilation with FiO2 of 80%. Chest x-ray this morning shows similar multifocal airspace opacities and stable support lines and tubes. Similar subcutaneous emphysema scattered throughout the visualized thorax. PEG and trach plan for next week once more stable. Current meds include Cleviprex, Nimbex, fentanyl, propofol. She is receiving IV fluconazole, as well as IV Lasix. Levophed and Lidocaine gtt;s are on hold. Positive bowel sounds. Current vitals afebrile, heart rate 71, blood pressure 135/60 and oxygen saturation is 93%. Respirations 30. Labs today, white count 17, hemoglobin 11.6, sodium 139, potassium 3.8, BUN 34, creatinine 0.91, CO2 33, calcium 8.7, ALT 54, albumin 2.8 with blood sugars in the 100s. 10/10/2021 Patient evaluated today in the ICU on the mechanical VENT with fio2 of 100%. Po sitive bowel movement today, Stage 2 pressure ulcer on coccyx per RN, optifoam ordered. Per RN they were unable to patient as she was desaturating. They're unable to wean Fi02 currently as she does desaturate with any time of movement. She was lying more on her right side during evaluation and pulse ox was dropping into high 80s she was being repositioned by nurses. Plan is to PEG/TRACH patient tomorrow. Last family update was 4 days ago. We will call and discuss case today. Patient is afebrile, heart rate 84, respirations 30, blood pressure 141/55, 92% oxygen saturation on 100% Fi02, which was increased today up from 70 Fi02%. Labs today show WBC of 15.6, hgbl 10.7, sodium 138, potassium 3.9, chloride 100, CO2 37, glucose 117, calcium 8.2. Chest xray today shows pneumonia, ARDS. 10/11/2021 Patient is seen and evaluated in follow-up this morning continues to be closely monitored in the ICU and patient is continued on FiO2 of 90% and PEEP is 16 with multiple medical consultations following. Chest x-ray today shows new left- sided pneumothorax estimated 10-20% with overlying subcutaneous emphysema and pneumomediastinum redemonstrated with bilateral multifocal and confluent opac ification's redemonstrated consistent with COVID-19 infection and/or arts and no significant change from one day previous. Patient is status post left chest tube insertion with pulmonary cost control analyst. Cardiology following and patient is off lidocaine drip and maintaining sinus rhythm. Patient also continues on vitamin and zinc supplements along with oral dexamethasone and patient continues on IV Lasix 40 mg daily. Patient also continues off norepinephrine and is currently maintained on IV cefepime along with fluconazole. General surgery following as well and plan is for peg and trach placement in the am 10/12/2021 Patient is seen in the ICU this morning continues to be closely monitored by multiple medical consultations. Patient was scheduled for PEG and trach placement with general surgery Dr. Nelson today although canceled as patient became hypotensive requiring Levophed along with acute blood loss anemia and hemoglobin dropped to 6.5 this morning requiring 1 unit of PRBC. Patient continues with left chest tube with pneumothorax and chest x-ray today shows the jahaira is difficult to clearly identify on the present exam and the ET tube may be approximately 1 cm from the jahaira and there are bilateral chest tubes present with continued diffuse interstitial opacification is and more focal bibasilar opacification is with subcutaneous emphysema persists along the upper chest with slight improvement on the left. No appreciable pneumothorax noted. Patient having worsening right pleural effusion last night and received a right- sided chest tube with pulmonary cost control analyst. FiO2 is 90% and PEEP of 16. Again overall prognosis remains extremely poor and guarded. 10/13/2021 Patient is seen in follow-up this morning in the ICU with multiple medical consultations following. Lengthy discussion was had with pulmonary cost control analyst and family members and would like to continue with full CODE STATUS and plan is in place for PEG tube and tracheostomy placement tomorrow. Anticoagulant on hold and Dr. Nelson plans for surgery tomorrow. Patient continues on oral dexamethasone along with IV cefepime, vitamin and zinc supplements. Patient also continues on Cleviprex and Nimbex. Patient also continues on fentanyl and propofol and will continue. Chest x-ray today shows stable portable chest with bilateral chest tubes without sizable pneumothorax identified and continued subcutaneous air persists with persistent interstitial changes bilaterally with airspace disease in the bilateral lung bases that are unchanged. FiO2 is 60% and PEEP of 16. 10/14/2021 Patient is seen and evaluated in the ICU being closely monitored with multiple medical consultations following. at the bedside today and had detailed discussion with overall prognosis. Plan is to proceed with PEG tube and tracheostomy placement with surgery Dr. Nelson today and anticoagulant continues to be on hold for this procedure. Patient continues on mechanical ventilation with an FiO2 of 70% and PEEP of 16. Chest x-ray today shows improving infiltrate with bibasilar residual and bilateral chest tubes remain present with no pneumothorax evident on either side and again subcutaneous emphysema is noted. 10/15/2021 Patient is seen in the ICU being closely monitored. Patient is status post PEG and trach placement yesterday. Chest x-ray today shows bilateral patchy lung infiltrates greater at the right base with diffuse increased lung markings and bilateral chest tubes remain present and subcutaneous emphysema on the right is diminished. Patient continues with an FI02 of 60 and peep is 16. To resume tube feeds per surgery. Patient continues on norepinephrine and sedation. Patient is receiving IV lasix daily. 10/16/2021 Patient is currently in the MICU and remains on ventilator. Status post tracheostomy and PEG tube placement on 10/14/2021. Patient is sedated and paralyzed. Also on Cleviprex. Chest x-ray showed no acute cardiopulmonary disease with no interval changes. Laboratory data showed WBC 16.9 hemoglobin 8.9 and platelets 278 BUN 19 and creatinine 0.5 and calcium 8.1 patient is being continued on dexamethasone 6 mg daily, Lasix 40 mg IV daily and multivitamins and anticoagulation with Eliquis. Pulmonary and general surgery is on board. 10/17/2021 Patient is in the MICU. Remains on the current ventilator via tracheostomy. Status post tracheostomy and PEG tube placement on 10/14/2021. Sedated and paralyzed and also on fentanyl drip. Currently on assist control with tidal volume of 420, FiO2 80% and PEEP of 16. Respiratory of 30. Chest x-ray showed no interval change in acute cardiopulmonary disease Laboratory data showed WBC 15.8 hemoglobin 8.2 and platelets 271 Sodium 136 potassium 3.1 chloride 100 bicarb is 32 BUN 21 creatinine 0.48 and albumin 2.3 Patient is being continued on Lasix IV, dexamethasone and anticoagulation with Eliquis. 10/18/2021 Patient is seen in follow-up and continues in the ICU with multiple medical consultations following. Patient continues on mechanical vent with an FI02 of 70% and peep is 16. Chest xray shows overall stable exam with interstitial changes and bilateral patchy infiltrates with right greater than left and greater at the bases with bilateral chest tubes noted. no appreciable pneumothorax. Patient continues on propofol and fentanyl along with cleviprex and rocuronium. Eliquis has been resumed. Potassium is 3.3 and will be replaced per protocol. Patient also continues to receive IV lasix daily. 10/19/2021 Patient is seen this morning and continues to be in the ICU with multiple medical consultations following. Patient continues with bilateral chest tubes and remains on mechanical ventilation with an FiO2 of 65% and PEEP is 16. Chest x-ray today shows Bilateral multifocal and confluent opacification greatest in the lower lungs consistent with COVID-19 infection and/or ARDS all redemonst rated with no significant change from one day earlier and continued bilateral chest tubes without pneumothorax redemonstrated. 10/20/2021 Patient continues to be in the ICU under close critical monitoring with multiple medical consultations following. Patient continues with bilateral chest tubes although per nursing staff may possibly discontinued today. Chest x-ray today shows stable portable chest with no change in scattered mixed interstitial and alveolar infiltrates. Patient remains on mechanical ventilation via tracheostomy with an FiO2 of 55% and PEEP is 15. Patient continues on Cleviprex along with rocuronium and sedation. 10/21/2021 Patient continues in the MICU being closely monitored. Chest tubes were removed today and chest xray stable with interstitial changes and basilar ground glass, that is similar to previous with slight improvement. Patient continues on mechanical vent with an FI02 of 70% and peep is 14. Patient remains sedated and per nursing staff working on weaning paralytics. Patient continued on rocuronium. Patient is tolerating tube feeds and also continues on IV lasix daily with generalized edema noted throughout. 10/22/2021 Patient is currently MICU. Patient was taken off paralytic and chest tubes yesterday. Continued on pressure support with PEEP of 13. 88 this morning patient again desaturated. Patient became hypotensive and patient was started on norepinephrine. Chest x-ray showed large pneumothorax on the right. Right chest tube was r einserted. Patient is on pressure control. Remains sedated and mechanically ventilated. Laboratory data showed WBC 13.7 hemoglobin 7.7 and platelets 314 Sodium 140 potassium 3.0 chloride 102 bicarb is 37 BUN 19 and creatinine 0.44 and calcium 8.1 Patient is being continued dexamethasone multivitamins and anticoagulation with Eliquis. Patient is also on IV Lasix. Potassium will be replaced. 10/23/2021 Patient is currently MICU. Patient is on mechanical ventilator via trach tube. Patient developed right-sided tension pneumothorax. Again patient had issues with pneumothorax around 10 PM yesterday. Chest tube has to be replaced. Patient is also requiring pressor support. Off pressors this morning. On pressure support. PEEP of 13 and FiO2 100%. Laboratory data showed WBC 13.7 hemoglobin 7.7 and platelets 314 Sodium 140 potassium 3.0 chloride 102 bicarb is 37 BUN 19 and creatinine 0.44 and calcium 8.1 cultures have been negative. Patient is being current on dexamethasone, Eliquis and also IV Lasix 40 mg daily. 10/24/2021 Patient is currently in the MICU. Currently on mechanical ventilator via tracheal tube. Continue propofol and fentanyl. Remains pressure support with PEEP of 13 FiO2 reduced to 70%. Chest x-ray showed bilateral multifocal and confluent opacities consistent with COVID-19 infection and ARDS are redemonstrated and stable. Right-sided chest tube with small apical pneumothorax estimated 10 to 15% improved from 1 day earlier. Pneumo mediastinum noted. Laboratory data showed WBC 14.2 hemoglobin 7.1 and platelets 317 Sodium 140 potassium 3.2 chloride 104 bicarb is 38 BUN 20 and creatinine 0.46 and calcium 7.8. Patient is being continued on dexamethasone, Eliquis and also on IV Lasix. Currently on multivitamins. 11/13/2021 Patient is currently in the MICU. Awake alert and opening her eyes with verbal stimuli. Continues to be mechanical ventilator via tracheostomy tube. And also right sided chest tube in place.. Chest x-ray showed there is not significant interval change. Correlate for pneumonia. Stable right pneumothorax. Patient is being Precedex due to restlessness Anxiety. Patient is IV Lasix 40 mg twice daily. Tolerating tube feedings. Patient has been afebrile. Currently being continued anticoagulation with El iquis and prednisone 10 mg daily which is being tapered down. Neurology and pulmonary is on board. 11/14/2021 Patient is in the MICU. Awake alert but he is extremely weak. Patient was also Precedex drip. Otherwise remains on mechanical ventilator with assist control tidal volume of 400 and respiratory 30 and FiO2 50% PEEP of 10. Patient does chest tube due to right-sided pneumothorax. Chest x-ray showed stable right- sided pneumothorax. Patient is also receiving IV Lasix 40 mg every 12. Also on long-term anticoagulation with Eliquis. Patient is on prednisone which is being tapered down. Patient has been afebrile. Tolerating tube feedings. No diarrhea.. Laboratory showed WBC 14.6 hemoglobin 8.8 and platelets 330 sodium 137 potassium potassium 3.6 chloride 104 bicarb is 31 BUN 30 and creatinine 0.27 and calcium 8.2 11/15/2021 Patient remains in the MICU. Currently mechanical ventilator via tracheostomy tube. Remains on assist control with tidal volume 400 and FiO2 50% and PEEP of 8. Patient tolerated pressure support briefly arrives very anxious and is being continued on Precedex drip. Also on BuSpar for chronic anxiety. Patient is being continued IV Lasix every 12 and also on prednisone tapering course. Remains on long-term anticoagulation with Eliquis. Blood sugar slightly elevated and was started Levemir 5 units at bedtime along with insulin sliding scale. Laboratory reviewed showed WBC 12.5 hemoglobin 8.4 and platelets 299 sodium 137 potassium 3.4 chloride 99 bicarb 35 BUN 36 and creatinine 0.32 blood sugar is 160 3 in the morning and 235 before lunch. Calcium 8.2 Current medications reviewed. Objective - Vital Signs Vital signs: Vital Signs Temp 98.5 F 11/15/21 08:00 Pulse 95 11/15/21 11:00 Resp 79 H 11/15/21 11:00 BP 96/53 11/15/21 11:00 Pulse Ox 94 L 11/15/21 11:00 Intake & Output 02/11/15/21 11/15/21 18:59 06:59 18:59 Intake Total 1046 949.632 122 Output Total 3185 1395 40 Balance -2139 -445.368 82 Weight 90.1 kg 90.1 kg Intake: IV 110 120 10 Sodium Chloride 0.9% 1, 110 120 10 000 ml @ 10 mls/hr IV . Q24H [facility] Rx#:[id number] Intake, IV Titration 100 95.632 Amount Dexmedetomidine/0.9% NaCl 100 95.632 (Pmx) 400 mcg In Empty Bag 1 bag @ 0.2 MCG/KG/HR 4.665 mls/hr IV .[id number] [facility] Rx#:[id number] Tube Feeding 626 674 112 Other 210 60 Output: Chest Tube Drainage 10 30 Chest Tube Right Upper 10 30 Anterior Chest Urine 3175 1365 40 Other: Voiding Method Indwelling Catheter Indwelling Catheter Indwelling Catheter # Voids 1 ABP, PAP, CO, CI - Last Documented Arterial Blood Pressure 120/111 - Exam - Exam -GENERAL: The patient is intubated status post tracheostomy. Patient generally weak HEENT: Pupils are round and equally reacting to light. EOMI. No scleral icterus. No conjunctival pallor. Normocephalic, atraumatic. No pharyngeal erythema. No thyromegaly. CARDIOVASCULAR: S1 and S2 present. No murmurs, rubs, or gallops. -PULMONARY: Bilateral decreased breath sounds with bilateral crepitation ABDOMEN: Soft, nontender, nondistended, normoactive bowel sounds. No palpable organomegaly. MUSCULOSKELETAL: No joint swelling or deformity. EXTREMITIES: No cyanosis, clubbing, or pedal edema. -NEUROLOGICAL: Gross neurological examination did not reveal any focal deficits. General awake, more on the left side SKIN: No rashes. no petechiae. - Labs CBC & Chem 7: 11/16/21 05:57 11/16/21 05:57 Labs: Abnormal Lab Results - Last 24 Hours (Table) 11/14/21 11/15/21 11/15/21 Range/Units 17:21 00:23 06:11 WBC (3.8-10.6) k/uL RBC (3.80-5.40) m/uL Hgb (11.4-16.0) gm/dL Hct (34.0-46.0) % MCHC (31.0-37.0) g/dL RDW (11.5-15.5) % Neutrophils # (1.3-7.7) k/uL Potassium (3.5-5.1) mmol/L Carbon Dioxide (22-30) mmol/L BUN (7-17) mg/dL Creatinine (0.52-1.04) mg/dL Glucose (74-99) mg/dL POC Glucose (mg/dL) 197 H 137 H 175 H (75-99) mg/dL Calcium (8.4-10.2) mg/dL 11/15/21 11/15/21 Range/Units 06:22 06:22 WBC 12.5 H (3.8-10.6) k/uL RBC 3.05 L (3.80-5.40) m/uL Hgb 8.4 L (11.4-16.0) gm/dL Hct 28.0 L (34.0-46.0) % MCHC 30.1 L (31.0-37.0) g/dL RDW 16.3 H (11.5-15.5) % Neutrophils # 9.1 H (1.3-7.7) k/uL Potassium 3.4 L (3.5-5.1) mmol/L Carbon Dioxide 35 H (22-30) mmol/L BUN 36 H (7-17) mg/dL Creatinine 0.32 L (0.52-1.04) mg/dL Glucose 163 H (74-99) mg/dL POC Glucose (mg/dL) (75-99) mg/dL Calcium 8.2 L (8.4-10.2) mg/dL Assessment and Plan Assessment: Acute COVID-19 infection with acute COVID-19 bilateral interstitial pneumonia with hypoxic hypercarbic respiratory failure on mechanical vent status post trach and peg tube placement on 10/14/2021.Patient remains mechanical ventilator via trach. Worsening right side pneumothorax status post chest tube placement and thoravent removal on 10/29/2021 Right pneumothorax status post chest tube placement Critical illness myopathy and neuropathy Atrial fibrillation, new onset, currently rate controlled on metoprolol and cardizem Non-sustained ventricular tachycardia, currently sinus Acute left leg deep vein thrombosis Primary hypercoagulable state and factor V deficiency Obesity with a body mass index of 36.0 DVT prophylaxis: on Eliquis No code Plan: This is a pleasant 61 years old female with covert pneumonia, hypoxia, DVT and A. fib. Continue with multiple vitamins and prednisone 60 mg-->10mg taper Patient is tolerating tube feeding. CT surgery is on board. Chest tube due to right pneumothorax. Continue with the [facility] cardiology and pulmonary/critical care team on the case. Labs and medication were reviewed.. Monitor lytes and vitals. DVT and GI prophylaxis. DVT prophylaxis: Eliquis GI Prophylaxis: Ppi Prognosis is extremely guarded Time with Patient: Greater than 30
--- NOTE | 2021-11-16 22:45 | P.PN ---
Subjective Progress Note Date: 11/16/21 This is a 61-year-old female who was recently admitted with acute COVID-19 pneumonia with acute COVID-19 bilateral interstitial pneumonia and also with transaminitis and being closely monitored. Patient remains in the ICU and currently intubated and sedated with an FiO2 of 70% and PEEP is 18. 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 Patient did have a venous Doppler study done recently which showed left leg DVT and patient is maintained on Eliquis will continue. Patient also continues on empiric antibiotics and awaiting for sputum culture finalized. Patient was started on IV cefepime and will continue. Patient is also continued on oral dexamethasone along with vitamin and zinc supplements and will continue. Patient with some mild volume overload and given a dose of IV Lasix push today. 09/29/2021 Patient is seen and evaluated this morning continues to be closely monitored in the ICU and continues to be on mechanical ventilation and sedated. FiO2 was increased at 80% with a PEEP of 18 and oxygen saturations between 87-91%. Patient developing subcutaneous emphysema in the neck and chest wall area and chest x-ray today shows bilateral multifocal and confluent opacification is redemonstrated consistent with COVID-19 infection with a new small left apical pneumothorax estimated under 5% with new pneumomediastinum and recurrent overlying subcutaneous emphysema noted. Patient is white blood count mildly elevated at 16.1 and is continued on oral dexamethasone along with oral eliquis for anticoagulation. Patient continues to be on IV cefepime and blood and sputum cultures are negative thus far. 09/30/2021 Patient is seen today continues to be closely monitored in the ICU with multiple medical consultations following. Patient continues to be mechanically intubated and sedated with continued subcutaneous emphysema noted. Chest xray shows a trace left apical pneumothorax that is minimally smaller 7mm versus 1cm previously, extensive bilateral subcutaneous emphysema persists and diffuse interstitial changes and bilateral patchy opacities persist with slight improvement in aeration in the lower lungs. Per nursing staff corbin was clogged with copious amounts of white discharge and will add diflucan and corbin catheter has been changed and draining adequately. Patient continues on IV cefepime. Patient tolerating tube feeds and will continue. 10/01/2021 Patient is seen and evaluated in follow up this morning and continues to be closely monitored. Multiple medical consultations following and patient con tinues to be on mechanical vent and sedated. Patient continues on IV Cefepime and diflucan. Patient chest xray today shows stable extensive subcutaneous emphysema, no pneumothorax, and patchy bilateral lung infiltrates remain present. INflammatory markers trending down. 10/04/2021 Patient is seen in follow-up continues to be closely monitored in the ICU. Patient remains on mechanical vent with an FI02 of 65% and peep is 18. Weaning trials being attempted with pulmonary retail department reset following closely. Patient continues with extensive subq emphysema noted on exam. 10/05/2021 Patient Is seen and evaluated this morning with continued attempts at weaning and continues on mechanical vent and intubated with pulmonary retail department reset following closely. Patient remains on Eliquis which will be held as surgery Dr. Nelson was consulted for possible PEG and trach tube placement for unsuccessful attempts at weaning from ventilation and prolonged hospitalization on mechanical vent. Chest x-ray today shows recurrent tiny left apical pneumothorax estimated under 5% with worsening overlying subcutaneous emphysema and again pneumomediastinum redemonstrated with multifocal confluent opacification's redemonstrated consistent with COVID-19 infection and/or arts are redemonstrated with no significant change from one day previously. Patient continues on FiO2 of 65% and PEEP was weaned down to 14 today. IV cefepime discontinued. 10/06/2021 Patient is seen in follow-up this morning per nursing staff patient had multiple runs of ectopy an irregular heart rate and rhythms with PVCs and cardiology consulted. Patient was placed on lidocaine drip and was originally on eliquis is currently on hold for possible PEG and trach placement with general surgery following. Patient had difficulty maintaining oxygen saturations and FiO2 was increased to 100% and PEEP continues at 14. Multiple medical consultations following and patient continues on oral steroids along with vitamin and zinc supplements along with fluconazole. Patient being started on IV Lasix daily and recommend close monitoring of electrolytes and kidney functions. 10/07/2021 Patient is seen in follow-up this morning continues to be monitored closely in the ICU with multiple medical consultations following. Patient is currently on mechanical vent with an FiO2 of 80% and PEEP is 16. General surgery also following for possible PEG and trach placement and will need to discuss with surgery about when this will occur. Patient remains on fluconazole. She also continues on vitamin and zinc supplements along with oral dexamethasone, clevidipine, Nimbex, IV Lasix, fentanyl and propofol and is off norepinephrine. Chest x-ray shows stable bilateral lung infiltrates. 10/08/2021 Patient is seen this morning continues to be on mechanical vent with an FiO2 of 85% and PEEP of 16. Patient continues with extensive subcutaneous emphysema and plans are for possible PEG and trach placement although on hold until possibly next week once more stable. Patient continues on Cleviprex along with fentanyl and propofol and is receiving IV Lasix daily. Patient also continues on lidocaine drip which is currently on hold and cardiology is following closely. Anticoagulant was resumed for now again until more stable to undergo PEG and trach placement. Chest x-ray today shows persistent bilateral multifocal and confluent increased opacification is with persistent overlying subcutaneous emphysema noted in pneumomediastinum is again redemonstrated. 10/09/2021 Patient evaluated today in ICU mechanical ventilation with FiO2 of 80%. Chest x-ray this morning shows similar multifocal airspace opacities and stable support lines and tubes. Similar subcutaneous emphysema scattered throughout the visualized thorax. PEG and trach plan for next week once more stable. Current meds include Cleviprex, Nimbex, fentanyl, propofol. She is receiving IV fluconazole, as well as IV Lasix. Levophed and Lidocaine gtt;s are on hold. Positive bowel sounds. Current vitals afebrile, heart rate 71, blood pressure 135/60 and oxygen saturation is 93%. Respirations 30. Labs today, white count 17, hemoglobin 11.6, sodium 139, potassium 3.8, BUN 34, creatinine 0.91, CO2 33, calcium 8.7, ALT 54, albumin 2.8 with blood sugars in the 100s. 10/10/2021 Patient evaluated today in the ICU on the mechanical VENT with fio2 of 100%. Po sitive bowel movement today, Stage 2 pressure ulcer on coccyx per RN, optifoam ordered. Per RN they were unable to patient as she was desaturating. They're unable to wean Fi02 currently as she does desaturate with any time of movement. She was lying more on her right side during evaluation and pulse ox was dropping into high 80s she was being repositioned by nurses. Plan is to PEG/TRACH patient tomorrow. Last family update was 4 days ago. We will call and discuss case today. Patient is afebrile, heart rate 84, respirations 30, blood pressure 141/55, 92% oxygen saturation on 100% Fi02, which was increased today up from 70 Fi02%. Labs today show WBC of 15.6, hgbl 10.7, sodium 138, potassium 3.9, chloride 100, CO2 37, glucose 117, calcium 8.2. Chest xray today shows pneumonia, ARDS. 10/11/2021 Patient is seen and evaluated in follow-up this morning continues to be closely monitored in the ICU and patient is continued on FiO2 of 90% and PEEP is 16 with multiple medical consultations following. Chest x-ray today shows new left- sided pneumothorax estimated 10-20% with overlying subcutaneous emphysema and pneumomediastinum redemonstrated with bilateral multifocal and confluent opac ification's redemonstrated consistent with COVID-19 infection and/or arts and no significant change from one day previous. Patient is status post left chest tube insertion with pulmonary retail department reset. Cardiology following and patient is off lidocaine drip and maintaining sinus rhythm. Patient also continues on vitamin and zinc supplements along with oral dexamethasone and patient continues on IV Lasix 40 mg daily. Patient also continues off norepinephrine and is currently maintained on IV cefepime along with fluconazole. General surgery following as well and plan is for peg and trach placement in the am 10/12/2021 Patient is seen in the ICU this morning continues to be closely monitored by multiple medical consultations. Patient was scheduled for PEG and trach placement with general surgery Dr. Nelson today although canceled as patient became hypotensive requiring Levophed along with acute blood loss anemia and hemoglobin dropped to 6.5 this morning requiring 1 unit of PRBC. Patient continues with left chest tube with pneumothorax and chest x-ray today shows the jahaira is difficult to clearly identify on the present exam and the ET tube may be approximately 1 cm from the jahaira and there are bilateral chest tubes present with continued diffuse interstitial opacification is and more focal bibasilar opacification is with subcutaneous emphysema persists along the upper chest with slight improvement on the left. No appreciable pneumothorax noted. Patient having worsening right pleural effusion last night and received a right- sided chest tube with pulmonary retail department reset. FiO2 is 90% and PEEP of 16. Again overall prognosis remains extremely poor and guarded. 10/13/2021 Patient is seen in follow-up this morning in the ICU with multiple medical consultations following. Lengthy discussion was had with pulmonary retail department reset and family members and would like to continue with full CODE STATUS and plan is in place for PEG tube and tracheostomy placement tomorrow. Anticoagulant on hold and Dr. Nelson plans for surgery tomorrow. Patient continues on oral dexamethasone along with IV cefepime, vitamin and zinc supplements. Patient also continues on Cleviprex and Nimbex. Patient also continues on fentanyl and propofol and will continue. Chest x-ray today shows stable portable chest with bilateral chest tubes without sizable pneumothorax identified and continued subcutaneous air persists with persistent interstitial changes bilaterally with airspace disease in the bilateral lung bases that are unchanged. FiO2 is 60% and PEEP of 16. 10/14/2021 Patient is seen and evaluated in the ICU being closely monitored with multiple medical consultations following. at the bedside today and had detailed discussion with overall prognosis. Plan is to proceed with PEG tube and tracheostomy placement with surgery Dr. Nelson today and anticoagulant continues to be on hold for this procedure. Patient continues on mechanical ventilation with an FiO2 of 70% and PEEP of 16. Chest x-ray today shows improving infiltrate with bibasilar residual and bilateral chest tubes remain present with no pneumothorax evident on either side and again subcutaneous emphysema is noted. 10/15/2021 Patient is seen in the ICU being closely monitored. Patient is status post PEG and trach placement yesterday. Chest x-ray today shows bilateral patchy lung infiltrates greater at the right base with diffuse increased lung markings and bilateral chest tubes remain present and subcutaneous emphysema on the right is diminished. Patient continues with an FI02 of 60 and peep is 16. To resume tube feeds per surgery. Patient continues on norepinephrine and sedation. Patient is receiving IV lasix daily. 10/16/2021 Patient is currently in the MICU and remains on ventilator. Status post tracheostomy and PEG tube placement on 10/14/2021. Patient is sedated and paralyzed. Also on Cleviprex. Chest x-ray showed no acute cardiopulmonary disease with no interval changes. Laboratory data showed WBC 16.9 hemoglobin 8.9 and platelets 278 BUN 19 and creatinine 0.5 and calcium 8.1 patient is being continued on dexamethasone 6 mg daily, Lasix 40 mg IV daily and multivitamins and anticoagulation with Eliquis. Pulmonary and general surgery is on board. 10/17/2021 Patient is in the MICU. Remains on the current ventilator via tracheostomy. Status post tracheostomy and PEG tube placement on 10/14/2021. Sedated and paralyzed and also on fentanyl drip. Currently on assist control with tidal volume of 420, FiO2 80% and PEEP of 16. Respiratory of 30. Chest x-ray showed no interval change in acute cardiopulmonary disease Laboratory data showed WBC 15.8 hemoglobin 8.2 and platelets 271 Sodium 136 potassium 3.1 chloride 100 bicarb is 32 BUN 21 creatinine 0.48 and albumin 2.3 Patient is being continued on Lasix IV, dexamethasone and anticoagulation with Eliquis. 10/18/2021 Patient is seen in follow-up and continues in the ICU with multiple medical consultations following. Patient continues on mechanical vent with an FI02 of 70% and peep is 16. Chest xray shows overall stable exam with interstitial changes and bilateral patchy infiltrates with right greater than left and greater at the bases with bilateral chest tubes noted. no appreciable pneumothorax. Patient continues on propofol and fentanyl along with cleviprex and rocuronium. Eliquis has been resumed. Potassium is 3.3 and will be replaced per protocol. Patient also continues to receive IV lasix daily. 10/19/2021 Patient is seen this morning and continues to be in the ICU with multiple medical consultations following. Patient continues with bilateral chest tubes and remains on mechanical ventilation with an FiO2 of 65% and PEEP is 16. Chest x-ray today shows Bilateral multifocal and confluent opacification greatest in the lower lungs consistent with COVID-19 infection and/or ARDS all redemonst rated with no significant change from one day earlier and continued bilateral chest tubes without pneumothorax redemonstrated. 10/20/2021 Patient continues to be in the ICU under close critical monitoring with multiple medical consultations following. Patient continues with bilateral chest tubes although per nursing staff may possibly discontinued today. Chest x-ray today shows stable portable chest with no change in scattered mixed interstitial and alveolar infiltrates. Patient remains on mechanical ventilation via tracheostomy with an FiO2 of 55% and PEEP is 15. Patient continues on Cleviprex along with rocuronium and sedation. 10/21/2021 Patient continues in the MICU being closely monitored. Chest tubes were removed today and chest xray stable with interstitial changes and basilar ground glass, that is similar to previous with slight improvement. Patient continues on mechanical vent with an FI02 of 70% and peep is 14. Patient remains sedated and per nursing staff working on weaning paralytics. Patient continued on rocuronium. Patient is tolerating tube feeds and also continues on IV lasix daily with generalized edema noted throughout. 10/22/2021 Patient is currently MICU. Patient was taken off paralytic and chest tubes yesterday. Continued on pressure support with PEEP of 13. 88 this morning patient again desaturated. Patient became hypotensive and patient was started on norepinephrine. Chest x-ray showed large pneumothorax on the right. Right chest tube was r einserted. Patient is on pressure control. Remains sedated and mechanically ventilated. Laboratory data showed WBC 13.7 hemoglobin 7.7 and platelets 314 Sodium 140 potassium 3.0 chloride 102 bicarb is 37 BUN 19 and creatinine 0.44 and calcium 8.1 Patient is being continued dexamethasone multivitamins and anticoagulation with Eliquis. Patient is also on IV Lasix. Potassium will be replaced. 10/23/2021 Patient is currently MICU. Patient is on mechanical ventilator via trach tube. Patient developed right-sided tension pneumothorax. Again patient had issues with pneumothorax around 10 PM yesterday. Chest tube has to be replaced. Patient is also requiring pressor support. Off pressors this morning. On pressure support. PEEP of 13 and FiO2 100%. Laboratory data showed WBC 13.7 hemoglobin 7.7 and platelets 314 Sodium 140 potassium 3.0 chloride 102 bicarb is 37 BUN 19 and creatinine 0.44 and calcium 8.1 cultures have been negative. Patient is being current on dexamethasone, Eliquis and also IV Lasix 40 mg daily. 10/24/2021 Patient is currently in the MICU. Currently on mechanical ventilator via tracheal tube. Continue propofol and fentanyl. Remains pressure support with PEEP of 13 FiO2 reduced to 70%. Chest x-ray showed bilateral multifocal and confluent opacities consistent with COVID-19 infection and ARDS are redemonstrated and stable. Right-sided chest tube with small apical pneumothorax estimated 10 to 15% improved from 1 day earlier. Pneumo mediastinum noted. Laboratory data showed WBC 14.2 hemoglobin 7.1 and platelets 317 Sodium 140 potassium 3.2 chloride 104 bicarb is 38 BUN 20 and creatinine 0.46 and calcium 7.8. Patient is being continued on dexamethasone, Eliquis and also on IV Lasix. Currently on multivitamins. 11/13/2021 Patient is currently in the MICU. Awake alert and opening her eyes with verbal stimuli. Continues to be mechanical ventilator via tracheostomy tube. And also right sided chest tube in place.. Chest x-ray showed there is not significant interval change. Correlate for pneumonia. Stable right pneumothorax. Patient is being Precedex due to restlessness Anxiety. Patient is IV Lasix 40 mg twice daily. Tolerating tube feedings. Patient has been afebrile. Currently being continued anticoagulation with El iquis and prednisone 10 mg daily which is being tapered down. Neurology and pulmonary is on board. 11/14/2021 Patient is in the MICU. Awake alert but he is extremely weak. Patient was also Precedex drip. Otherwise remains on mechanical ventilator with assist control tidal volume of 400 and respiratory 30 and FiO2 50% PEEP of 10. Patient does chest tube due to right-sided pneumothorax. Chest x-ray showed stable right- sided pneumothorax. Patient is also receiving IV Lasix 40 mg every 12. Also on long-term anticoagulation with Eliquis. Patient is on prednisone which is being tapered down. Patient has been afebrile. Tolerating tube feedings. No diarrhea.. Laboratory showed WBC 14.6 hemoglobin 8.8 and platelets 330 sodium 137 potassium potassium 3.6 chloride 104 bicarb is 31 BUN 30 and creatinine 0.27 and calcium 8.2 11/15/2021 Patient remains in the MICU. Currently mechanical ventilator via tracheostomy tube. Remains on assist control with tidal volume 400 and FiO2 50% and PEEP of 8. Patient tolerated pressure support briefly arrives very anxious and is being continued on Precedex drip. Also on BuSpar for chronic anxiety. Patient is being continued IV Lasix every 12 and also on prednisone tapering course. Remains on long-term anticoagulation with Eliquis. Blood sugar slightly elevated and was started Levemir 5 units at bedtime along with insulin sliding scale. Laboratory reviewed showed WBC 12.5 hemoglobin 8.4 and platelets 299 sodium 137 potassium 3.4 chloride 99 bicarb 35 BUN 36 and creatinine 0.32 blood sugar is 160 3 in the morning and 235 before lunch. Calcium 8.2 11/16/2021 Patient is awake alert and he is being continued on Precedex drip due to severe anxiety and on BuSpar due to chronic anxiety. Remains on mechanical ventilator via tracheostomy tube. FiO2 50% and tidal volume 400 and PEEP of 5 today. Levemir dose increased to 10 units at bedtime along with insulin sliding scale. Patient is on prednisone taper increase on tapering course at 10 mg daily. Chest x-ray showed small right apical pneumothorax estimated near 10% despite chest tube placement redemonstrated and stable. Patient has been afebrile. Patient has been extremely weak otherwise. Unable to move bilateral lower extremities. Laboratory data showed WBC 11.9 hemoglobin 8.6 and platelets 301 sodium 137 potassium 3.5 chloride 100 bicarb is 38 BUN 13 creatinine 0.34 and blood sugar is 173 and calcium 8.3 Current medications reviewed. Objective - Vital Signs Vital signs: Vital Signs Temp 99 F 11/16/21 12:00 Pulse 97 11/16/21 13:00 Resp 32 H 11/16/21 13:00 BP 92/69 11/16/21 13:00 Pulse Ox 96 11/16/21 13:00 Intake & Output 11/15/21 11/16/21 11/16/21 18:59 06:59 18:59 Intake Total 878.862 6211.546 719.097 Output Total 5252 092 8664 Balance -1404.268 320.546 -585.903 Weight 90.1 kg 88 kg Intake: IV 120 120 60 Sodium Chloride 0.9% 1, 120 120 60 000 ml @ 10 mls/hr IV . Q24H [facility] Rx#:[id number] Intake, IV Titration 197.732 152.546 45.097 Amount Dexmedetomidine/0.9% NaCl 197.732 152.546 45.097 (Pmx) 400 mcg In Empty Bag 1 bag @ 0.2 MCG/KG/HR 4.665 mls/hr IV .[id number] [facility] Rx#:[id number] Tube Feeding 228 638 464 Other 90 150 Output: Chest Tube Drainage 0 Chest Tube Right Upper 0 Anterior Chest Urine 9351 906 0548 Other: Voiding Method Indwelling Catheter Indwelling Catheter # Bowel Movements 1 ABP, PAP, CO, CI - Last Documented Arterial Blood Pressure 120/111 - Exam - Exam -GENERAL: The patient is status post tracheostomy. Patient generally weak HEENT: Pupils are round and equally reacting to light. EOMI. No scleral icterus. No conjunctival pallor. Normocephalic, atraumatic. No pharyngeal erythema. No thyromegaly. CARDIOVASCULAR: S1 and S2 present. No murmurs, rubs, or gallops. -PULMONARY: Bilateral decreased breath sounds with bilateral crepitation ABDOMEN: Soft, nontender, nondistended, normoactive bowel sounds. No palpable organomegaly. MUSCULOSKELETAL: No joint swelling or deformity. EXTREMITIES: No cyanosis, clubbing, or pedal edema. -NEUROLOGICAL: Gross neurological examination did not reveal any focal deficits. General awake, more on the left side SKIN: No rashes. no petechiae. - Labs CBC & Chem 7: 11/16/21 05:57 11/16/21 05:57 Labs: Abnormal Lab Results - Last 24 Hours (Table) 11/15/21 11/15/21 11/16/21 Range/Units 18:02 23:34 05:54 WBC (3.8-10.6) k/uL RBC (3.80-5.40) m/uL Hgb (11.4-16.0) gm/dL Hct (34.0-46.0) % MCHC (31.0-37.0) g/dL RDW (11.5-15.5) % Neutrophils # (1.3-7.7) k/uL Carbon Dioxide (22-30) mmol/L BUN (7-17) mg/dL Creatinine (0.52-1.04) mg/dL Glucose (74-99) mg/dL POC Glucose (mg/dL) 160 H 168 H 173 H (75-99) mg/dL Calcium (8.4-10.2) mg/dL 11/16/21 11/16/21 11/16/21 Range/Units 05:57 05:57 12:24 WBC 11.9 H (3.8-10.6) k/uL RBC 3.20 L (3.80-5.40) m/uL Hgb 8.6 L (11.4-16.0) gm/dL Hct 28.7 L (34.0-46.0) % MCHC 30.1 L (31.0-37.0) g/dL RDW 16.1 H (11.5-15.5) % Neutrophils # 8.4 H (1.3-7.7) k/uL Carbon Dioxide 38 H (22-30) mmol/L BUN 30 H (7-17) mg/dL Creatinine 0.34 L (0.52-1.04) mg/dL Glucose 161 H (74-99) mg/dL POC Glucose (mg/dL) 225 H (75-99) mg/dL Calcium 8.3 L (8.4-10.2) mg/dL Assessment and Plan Assessment: Acute COVID-19 infection with acute COVID-19 bilateral interstitial pneumonia with hypoxic hypercarbic respiratory failure on mechanical vent status post trach and peg tube placement on 10/14/2021.Patient remains mechanical ventilator via trach. Worsening right side pneumothorax status post chest tube placement and thoravent removal on 10/29/2021 Right pneumothorax status post chest tube placement Critical illness myopathy and neuropathy Atrial fibrillation, new onset, currently rate controlled on metoprolol and cardizem Non-sustained ventricular tachycardia, currently sinus Acute left leg deep vein thrombosis Primary hypercoagulable state and factor V deficiency Obesity with a body mass index of 36.0 DVT prophylaxis: on Eliquis No code Plan: This is a pleasant 61 years old female with covert pneumonia, hypoxia, DVT and A. fib. Continue with multiple vitamins and prednisone 60 mg-->10mg taper Patient is tolerating tube feeding. CT surgery is on board. Chest tube due to right pneumothorax is stable Continue [facility] on the case. Labs and medication were reviewed.. Monitor lytes and vitals. DVT and GI prophylaxis. DVT prophylaxis: Eliquis GI Prophylaxis: Ppi Prognosis is extremely guarded Time with Patient: Greater than 30
[2021-11-16] MEDS: HYDROmorphone 1 MG/ML 1 ML SYRINGE IVP PRN (23:15)
[2021-11-17 00:09] LABS: Glucose,Whole Blood 135 mg/dL (75-99)
[2021-11-17] MEDS: INSULIN ASPART (NovoLOG) 100 UNIT/ML VIAL SQ SCH ×5 (00:20→23:38)
[2021-11-17] MEDS: DEXMEDETOMIDINE/0.9% NACL(PMX) 400 MCG in EMPTY BAG 1 BAG IV SCH ×3 (01:12→21:46)
[2021-11-17 05:53] LABS: Anisocytosis Slight; Basophils # (A) 0.1 k/uL (0-0.2); Basophils % (A) 1 %; Eosinophils # (A) 0.2 k/uL (0-0.7); Eosinophils % (A) 2 %; HCT 27.8 % (34.0-46.0); HGB 8.6 gm/dL (11.4-16.0); Hypochromasia Marked; Lymphocytes # (A) 2.5 k/uL (1.0-4.8); Lymphocytes % (A) 23 %; MCH 27.2 pg (25.0-35.0); MCHC 30.7 g/dL (31.0-37.0); MCV 88.5 fL (80.0-100.0); Mean Platelet Volume 9.5; Monocytes # (A) 0.6 k/uL (0-1.0); Monocytes % (A) 6 %; Neutrophils # (A) 7.6 k/uL (1.3-7.7); Neutrophils % (A) 68 %; Platelet Count 277 k/uL (150-450); RBC 3.14 m/uL (3.80-5.40); RDW 16.1 % (11.5-15.5); WBC 11.1 k/uL (3.8-10.6)
[2021-11-17 06:10] LABS: African American GFR (CKD) >90 (>60 ml/min/1.73 sqM); Anion Gap 3 mmol/L; Blood Urea Nitrogen 28 mg/dL (7-17); Calcium 8.4 mg/dL (8.4-10.2); Carbon Dioxide 35 mmol/L (22-30); Chloride 100 mmol/L (98-107); Glucose 129 mg/dL (74-99); Non-African American GFR(CKD) >90 (>60 ml/min/1.73 sqM); Potassium 3.7 mmol/L (3.5-5.1); Sodium 138 mmol/L (137-145)
[2021-11-17 06:11] LABS: Glucose,Whole Blood 139 mg/dL (75-99)
--- NOTE | 2021-11-17 07:08 | XR ---
EXAMINATION TYPE: XR chest 1V portable DATE OF EXAM: 11/17/2021 COMPARISON: 11/16/2021 HISTORY: SOB, Follow Up FINDINGS: Indwelling tubes and catheters are unchanged. There is a small right apical pneumothorax decreased in size from prior study. Right-sided chest tube unchanged. Diffuse reticulonodular infiltrates persist unchanged. Stable appearance of the cardio-mediastinal structures at this time. Pleural effusion unchanged. IMPRESSION: 1. There is a small right apical pneumothorax decreased in size from prior study. 2. Diffuse reticulonodular infiltrates persist unchanged.
[2021-11-17] MEDS: PANTOPRAZOLE 40 MG/10 ML VIAL IV SCH (08:07)
[2021-11-17] MEDS: POTASSIUM BICARBONATE/CIT AC 20 MEQ TABLET.EFF PO SCH ×3 (08:07→20:03)
[2021-11-17] MEDS: NYSTATIN 100,000 UNIT/ML SUSP 500,000 UNIT/5 ML CUP PO SCH ×4 (08:07→20:02)
[2021-11-17] MEDS: FUROSEMIDE 10 MG/ML 4 ML VIAL IV SCH (08:07)
[2021-11-17] MEDS: ASCORBIC ACID 500 MG TAB PO SCH ×2 (08:08→20:02)
[2021-11-17] MEDS: QUEtiapine 50 MG TAB PO SCH ×2 (08:08→20:03)
[2021-11-17] MEDS: busPIRone HCl 5 MG TAB PO SCH ×2 (08:08→20:03)
[2021-11-17] MEDS: METOPROLOL TARTRATE 50 MG TAB PO SCH ×2 (08:08→20:03)
[2021-11-17] MEDS: PYRIDOXINE 50 MG TAB PO SCH (08:08)
[2021-11-17] MEDS: CYANOCOBALAMIN 500 MCG TAB PO SCH (08:08)
[2021-11-17] MEDS: FOLIC ACID 1 MG TAB PO SCH (08:08)
[2021-11-17] MEDS: predniSONE 10 MG TAB PO SCH (08:08)
[2021-11-17] MEDS: APIXABAN 5 MG TAB PO SCH ×2 (08:08→20:02)
[2021-11-17] MEDS: ZINC SULFATE 220 MG CAP PO SCH (08:08)
--- NOTE | 2021-11-17 09:49 | P.PN ---
Subjective Progress Note Date: 11/17/21 Principal diagnosis: Continued right-sided pneumothorax despite chest tube placement, acute hypoxic respiratory failure requiring mechanical ventilation, covid pneumonia on admissi on, remains unvaccinated, leukocytosis with low-grade fever, acute DVT to left lower extremity this admission on Eliquis, with history of prior DVT, new diagnosis of paroxysmal atrial fibrillation this admission. Previous medical history of factor V leiden disorder on Coumadin at home The patient was seen and examined this morning laying in bed in the intensive care unit, still being mechanically ventilated. She does open her eyes, follow commands, able to move all extremities except left foot although does remain very weak. Anterior chest tube continues to show continuous air leak but ap pears more prominent with expiration then inspiration. Objective - Vital Signs Vital signs: Vital Signs Temp 98.9 F 11/17/21 08:00 Pulse 99 11/17/21 09:00 Resp 27 H 11/17/21 09:00 BP 116/63 11/17/21 09:00 Pulse Ox 96 11/17/21 09:00 Intake & Output 11/16/21 11/17/21 11/17/21 18:59 06:59 18:59 Intake Total 1345.097 982.125 352 Output Total 1865 685 200 Balance -519.903 297.125 152 Weight 91.1 kg Intake: IV 120 120 30 Sodium Chloride 0.9% 1, 120 120 30 000 ml @ 10 mls/hr IV . Q24H [facility] Rx#:[id number] Intake, IV Titration 145.097 134.125 Amount Dexmedetomidine/0.9% NaCl 145.097 134.125 (Pmx) 400 mcg In Empty Bag 1 bag @ 0.2 MCG/KG/HR 4.665 mls/hr IV .[id number] [facility] Rx#:[id number] Tube Feeding 870 638 232 Other 210 90 90 Output: Chest Tube Drainage 0 0 Chest Tube Right Upper 0 0 Anterior Chest Urine 1865 685 200 Other: Voiding Method Indwelling Catheter Indwelling Catheter # Bowel Movements 1 ABP, PAP, CO, CI - Last Documented Arterial Blood Pressure 120/111 - Exam CONSTITUTIONAL: Appears comfortable, cooperative, no acute distress. Shakes head no when asked if in pain RESPIRATORY: Lungs sounds diminished bilaterally. Respirations even, nonlabored. Currently on mechanical ventilation through tracheostomy, ventilato r settings this morning were FiO2 40%, tidal volume 400, respiratory rate 22, peep 5. CARDIOVASCULAR: S1, S2 present. Regular rate and rhythm, sinus rhythm on telemetry. Palpable peripheral pulses bilaterally. Left lower extremity edema present GASTROINTESTINAL: Abdomen soft, nontender, nondistended. Active bowel sounds present 4 quadrants. Tolerating tube feedings through PEG at 58 mL/h GENITOURINARY: Golden present draining clear yellow urine INTEGUMENTARY: Skin is warm and dry NEUROLOGIC: Opens eyes, follows commands, able to move all extremities except left foot, remains very weak INVASIVE LINES AND TUBES: Right-sided double-lumen PICC present. Right-sided anterior pleural chest tube present to wall suction, continuous air leak present - Allied health notes Allied health notes reviewed: nursing - Labs CBC & Chem 7: 11/17/21 05:16 11/17/21 05:16 Labs: Abnormal Lab Results - Last 24 Hours (Table) 11/16/21 11/16/21 11/17/21 Range/Units 12:24 17:35 00:07 WBC (3.8-10.6) k/uL RBC (3.80-5.40) m/uL Hgb (11.4-16.0) gm/dL Hct (34.0-46.0) % MCHC (31.0-37.0) g/dL RDW (11.5-15.5) % Carbon Dioxide (22-30) mmol/L BUN (7-17) mg/dL Creatinine (0.52-1.04) mg/dL Glucose (74-99) mg/dL POC Glucose (mg/dL) 225 H 167 H 135 H (75-99) mg/dL 11/17/21 11/17/21 11/17/21 Range/Units 05:16 05:16 06:10 WBC 11.1 H (3.8-10.6) k/uL RBC 3.14 L (3.80-5.40) m/uL Hgb 8.6 L (11.4-16.0) gm/dL Hct 27.8 L (34.0-46.0) % MCHC 30.7 L (31.0-37.0) g/dL RDW 16.1 H (11.5-15.5) % Carbon Dioxide 35 H (22-30) mmol/L BUN 28 H (7-17) mg/dL Creatinine 0.34 L (0.52-1.04) mg/dL Glucose 129 H (74-99) mg/dL POC Glucose (mg/dL) 139 H (75-99) mg/dL - Imaging and Cardiology Chest x-ray: report reviewed, image reviewed Assessment and Plan Assessment: 1. Continued right-sided pneumothorax despite chest tube placement, status post anterior chest tube placement by Dr. Gunn 2. Acute hypoxic respiratory failure requiring mechanical ventilation 3. Covid pneumonia on admission, remains on vaccinated 4. Leukocytosis with low-grade fever 5. Acute DVT to left lower extremity this admission on Eliquis, with history of prior DVT 6. New diagnosis of paroxysmal atrial fibrillation this admission, currently in sinus 7. History of factor V leiden disorder on Coumadin at home 8. Multiple other comorbidities Plan: 1. Continue anterior chest tube to continuous wall suction, monitor for resolution of air leak 2. Will monitor daily x-rays 3. Ventilator management per veterans' coordinator 4. Medical management of other comorbidities per primary care 5. More recommendations to follow Time with Patient: Less than 30
[2021-11-17 11:27] LABS: Glucose,Whole Blood 218 mg/dL (75-99)
--- NOTE | 2021-11-17 11:38 | P.PN ---
Subjective Progress Note Date: 11/17/21 11/17/2021, the patient is awake and alert and she is quite comfortable. She remains on Precedex at 0.4 mcg/kg per minute. No major changes in her condition since yesterday. She is also on buspirone 15 mg twice a day for anxiety and cervical 50 mg twice a day. Arousable, follows commands, answers questions, seems to be slightly more active in terms of motor functions and upper extremity bilaterally on today's evaluation. 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 She is able to move her arms and legs mainly along with gravity. Otherwise, no new issues. She remains on a mechanical ventilator. As stated yesterday, we are checking daily weaning parameters including a rapid shallow breathing index. Nevertheless, her numbers remain extremely poor for now. She is not ready for any further weaning at this point in time. Air leak to the right-sided chest tube has been improving consistently although is still present. The patient had a follow-up chest x-ray today that shows the minor motion of the right apical pneumothorax. The patient is on a mechanical ventilator on assist control mode and the patient remains on a rate of 22, tidal volume 400, FiO2 of 40% with a PEEP of 5. The patient remains on IV Lasix. Overall fluid balance remains negative in the order of 1083 cc. The creatinine is at 0.34 with a mean of 38. Hemoglobin is at 8.6. Sodium level is at 138. The patient is tolerating enteral feeding for nutritional support and the patient remains on vital high protein. Physical therapy is working with her regarding passive range of motion. She has a stage II decub ulcer. Objective - Vital Signs Vital signs: Vital Signs Temp 98.9 F 11/17/21 08:00 Pulse 97 11/17/21 11:00 Resp 33 H 11/17/21 11:00 BP 115/66 11/17/21 11:00 Pulse Ox 94 L 11/17/21 11:00 Intake & Output 11/16/21 11/17/21 11/17/21 18:59 06:59 18:59 Intake Total 1345.097 982.125 529.296 Output Total 1865 685 860 Balance -519.903 297.125 -330.704 Weight 91.1 kg Intake: IV 120 120 50 Sodium Chloride 0.9% 1, 120 120 50 000 ml @ 10 mls/hr IV . Q24H [facility] Rx#:[id number] Intake, IV Titration 145.097 134.125 41.296 Amount Dexmedetomidine/0.9% NaCl 145.097 134.125 41.296 (Pmx) 400 mcg In Empty Bag 1 bag @ 0.2 MCG/KG/HR 4.665 mls/hr IV .[id number] [facility] Rx#:[id number] Tube Feeding 870 638 348 Other 210 90 90 Output: Chest Tube Drainage 0 0 Chest Tube Right Upper 0 0 Anterior Chest Urine 1865 685 860 Other: Voiding Method Indwelling Catheter Indwelling Catheter Indwelling Catheter # Bowel Movements 1 ABP, PAP, CO, CI - Last Documented Arterial Blood Pressure 120/111 - Exam GENERAL EXAM: Awake and follows simple command, trached to the ventilator, on assist control mode of ventilation with a rate of22, tidal volume 400, FiO2 of 40% with a PEEP of 5, patient remains on a low dose Precedex HEAD: Normocephalic/atraumatic. EYES: Normal reaction of pupils, equal size. Conjunctiva pink, sclera white. NOSE: Clear with pink turbinates. THROAT: No erythema or exudates. NECK: No masses, no JVD, no thyroid enlargement, no adenopathy. CHEST: No chest wall deformity. Symmetrical expansion. 1 right-sided chest tubes in place, there is continous air leak from right-sided chest tube LUNGS: Equal air entry with no crackles, wheeze, rhonchi or dullness. CVS: Irregular rate and rhythm, normal S1 and S2, no gallops, no murmurs, no rubs ABDOMEN: Soft, nontender. No hepatosplenomegaly, normal bowel sounds, no guarding or rigidity. PEG tube in place with tube feedings infusing with vital HP EXTREMITIES: No clubbing, significant gen edema, no cyanosis, 2+ pulses and upper and lower extremities. MUSCULOSKELETAL: Muscle strength and tone extremely weak SPINE: No scoliosis or deformity SKIN: No rashes CENTRAL NERVOUS SYSTEM:Awke and alert, trached to the ventilator, Follows simple command. No focal deficits, tone is normal in all 4 extremities. Generalized motor weakness in all 4 extremities and the patient has difficulties with movement and motor functions. - Labs CBC & Chem 7: 11/17/21 05:16 11/17/21 05:16 Labs: Abnormal Lab Results - Last 24 Hours (Table) 11/16/21 11/16/21 11/17/21 Range/Units 12:24 17:35 00:07 WBC (3.8-10.6) k/uL RBC (3.80-5.40) m/uL Hgb (11.4-16.0) gm/dL Hct (34.0-46.0) % MCHC (31.0-37.0) g/dL RDW (11.5-15.5) % Carbon Dioxide (22-30) mmol/L BUN (7-17) mg/dL Creatinine (0.52-1.04) mg/dL Glucose (74-99) mg/dL POC Glucose (mg/dL) 225 H 167 H 135 H (75-99) mg/dL 11/17/21 11/17/21 11/17/21 Range/Units 05:16 05:16 06:10 WBC 11.1 H (3.8-10.6) k/uL RBC 3.14 L (3.80-5.40) m/uL Hgb 8.6 L (11.4-16.0) gm/dL Hct 27.8 L (34.0-46.0) % MCHC 30.7 L (31.0-37.0) g/dL RDW 16.1 H (11.5-15.5) % Carbon Dioxide 35 H (22-30) mmol/L BUN 28 H (7-17) mg/dL Creatinine 0.34 L (0.52-1.04) mg/dL Glucose 129 H (74-99) mg/dL POC Glucose (mg/dL) 139 H (75-99) mg/dL 11/17/21 Range/Units 11:25 WBC (3.8-10.6) k/uL RBC (3.80-5.40) m/uL Hgb (11.4-16.0) gm/dL Hct (34.0-46.0) % MCHC (31.0-37.0) g/dL RDW (11.5-15.5) % Carbon Dioxide (22-30) mmol/L BUN (7-17) mg/dL Creatinine (0.52-1.04) mg/dL Glucose (74-99) mg/dL POC Glucose (mg/dL) 218 H (75-99) mg/dL Assessment and Plan Plan: #1. Acute hypoxic respiratory failure related to COVID-19 pneumonia complicated with ARDS. Patient was intubated and on 09/25/2021, status post tracheostomy and PEG tube placement on 10/14/2021. The patient remains ventilator dependent and the patient continues to have a persistent pneumothorax on the right and order of 5% and there is persistent air leak on the Pleur-evac. Nevertheless, she has adequate oxygenation and ventilation for now. She remains on a volume cycle assist-control mode of mechanical ventilation. The chest x-ray shows persistent right-sided pneumothorax, the patient continues to have a persistent air leak and there is further diminution in the right-sided pneumothorax on today's evaluation of the chest x-ray. Weaning parameters remain weak. No change in her respiratory status over the past 24 hours. #2. Acute COVID 19 related pneumonia, still on prednisone which is a part of the burst taper. The patient is currently on prednisone 10 mg by mouth daily. #3. Generalized motor weakness in all 4 extremities related to critical illness polyneuropathy and myopathy, extensive edema in all 4 extremities, currently on IV Lasix. The patient achieve a negative fluid balance and the edema is improved in all 4 extremities. Slightly improved in terms of the motor function on today's evaluation #4. Bilateral pneumothoraces requiring bilateral chest tube placements, with subsequent removal and recurrence of right-sided pneumothorax, requiring placement of another chest tube on the right, and subsequent Thoravent placement on 10/25/2021, and subsequent removal of the Thoravent on 10/29/2021 and placement of another right-sided chest tube on 10/29/2021. The patient is a persistent air leak in the right sided chest tube and there is a persistent pneumothorax on the right and there is a minor motion the right apical pneumothorax on today's chest x-ray #5. Acute deep vein thrombosis on Eliquis, no signs of bleeding #6. New-onset A. fib on 10/31/2021, currently in sinus, patient was on Cardizem drip, now on oral Cardizem, remains on Eliquis, currently in sinus rhythm #7. Subcutaneous emphysema resolved #8. Prior history of DVT #9. Increased anxiety #10. Mildly elevated liver enzymes secondary to COVID-19, recovered #11. Nonsustained ventricular tachycardia resolved #12. History of fibromyalgia #13 chronic anemia, multifactorial, expected outcome of prolonged ICU stay #14 critical illness polyneuropathy and myopathy with profound weakness in all 4 extremities. Plan Continue ventilator support Weaning parameters remain low Keep the same ventilator settings for now Continue IV Lasix 40 mg once a day Keep the prednisone low at 10 mg a day Wean off Precedex and gradually wean it down based on her level of anxiety and agitation , gradually wean off the Precedex as the patient is calm and comfortable this point in time. Continue Seroquel Continue BuSpar Continue Eliquis for long-term anticoagulation Continued IV Protonix Continue vital high protein for enteral feeding and nutritional support Continue with the Physical therapy for passive range of motion We'll check weaning parameters, these are being checked on a daily basis. The patient rapid shallow breathing index. She is not ready for any weaning at this point in time. This will be a prolonged wean as the patient has significant amount of motor weakness in all 4 extremities. Condition remains critical and will continue to follow make further accommodation based on her progress. This critically care evaluation was done and more than 30 minutes. Time with Patient: Greater than 30
--- NOTE | 2021-11-17 14:50 | P.PN ---
Subjective Progress Note Date: 11/17/21 Per the patient's nurse she is about the same. I spoke with Occupational therapy and they stated they are working with her. Objective - Vital Signs Vital signs: Vital Signs Temp 98.7 F 11/17/21 12:00 Pulse 96 11/17/21 14:00 Resp 22 11/17/21 14:00 BP 122/63 11/17/21 14:00 Pulse Ox 95 11/17/21 14:00 Intake & Output 11/16/21 11/17/21 11/17/21 18:59 06:59 18:59 Intake Total 1345.097 982.125 821.296 Output Total 4039 367 9691 Balance -519.903 297.125 -788.704 Weight 91.1 kg 91.1 kg Intake: IV 120 120 80 Sodium Chloride 0.9% 1, 120 120 80 000 ml @ 10 mls/hr IV . Q24H [facility] Rx#:[id number] Intake, IV Titration 145.097 134.125 41.296 Amount Dexmedetomidine/0.9% NaCl 145.097 134.125 41.296 (Pmx) 400 mcg In Empty Bag 1 bag @ 0.2 MCG/KG/HR 4.665 mls/hr IV .[id number] [facility] Rx#:[id number] Tube Feeding 870 638 580 Other 210 90 120 Output: Chest Tube Drainage 0 0 Chest Tube Right Upper 0 0 Anterior Chest Urine 6627 301 2634 Other: Voiding Method Indwelling Catheter Indwelling Catheter Indwelling Catheter # Bowel Movements 1 ABP, PAP, CO, CI - Last Documented Arterial Blood Pressure 120/111 - Exam GENERAL: The patient is lying in bed and is not in acute distress. LUNG: Trached and on ventilator. INTEGUMENTARY: Edema 1-2+ NEUROLOGICAL: Is on IV Precedex 0.6mcg/kg/hr. Higher mental function: The patient is awake, alert. Is oriented to her self. She is trying to verbalize but not producing any sound but can be understood thru lip reading and her nodding. She correctly stated some objects (watch and pen). She is following some commands (sticking tongue out, moving extremities). Cranial nerves: The pupils are round, equal and reactive to light. Visual patterosn are hard to assess. EOM is intact looking to right and left and no nystagmus. No facial weakness. Motor: The strength is limited because of her condition. But is able to move the right side better than left. Right distal upper extremity is is 2-3 and right ankle is 3/5. Left hand/distal forearm is able to have anitgravity (better than two days ago). No movment over the left lower extremity. Decrease tone throughout. Normal bulk. Sensation: Sensation is normal to touch throughout. Reflexes: Patient refused and was in pain upon attempting to perform. WORK-UP: * CT head on 11/08/21 showed no acute process. * CT head on 11/14/2021 is reported as negative. It is reported as bilateral mastoiditis was also significant left-sided otitis media. Cholesteatoma is possible. No change compared to recent exam on 11/08/2021. I personally reviewed the CT of the head and I do not appreciate any acute subacute ischemia and there is no interpretable hemorrhage * CT cervical spine is reported as previous cervical spine fusion surgery. Spondylitic change. No acute bony abnormality. No fracture. I personally reviewed this. Of the neck and the patient does have previous cervical fusion over the C5-C6 region but there is no severe spondylitic changes. * Carotid Doppler showed no significant stenosis. * 2-D echo from 11/01/2021 showed mild concentric LVH. EF is between 55-60%. Aortic valve not well visualized. - Labs CBC & Chem 7: 11/17/21 05:16 11/17/21 05:16 Labs: Abnormal Lab Results - Last 24 Hours (Table) 11/16/21 11/17/21 11/17/21 Range/Units 17:35 00:07 05:16 WBC 11.1 H (3.8-10.6) k/uL RBC 3.14 L (3.80-5.40) m/uL Hgb 8.6 L (11.4-16.0) gm/dL Hct 27.8 L (34.0-46.0) % MCHC 30.7 L (31.0-37.0) g/dL RDW 16.1 H (11.5-15.5) % Carbon Dioxide (22-30) mmol/L BUN (7-17) mg/dL Creatinine (0.52-1.04) mg/dL Glucose (74-99) mg/dL POC Glucose (mg/dL) 167 H 135 H (75-99) mg/dL 11/17/21 11/17/21 11/17/21 Range/Units 05:16 06:10 11:25 WBC (3.8-10.6) k/uL RBC (3.80-5.40) m/uL Hgb (11.4-16.0) gm/dL Hct (34.0-46.0) % MCHC (31.0-37.0) g/dL RDW (11.5-15.5) % Carbon Dioxide 35 H (22-30) mmol/L BUN 28 H (7-17) mg/dL Creatinine 0.34 L (0.52-1.04) mg/dL Glucose 129 H (74-99) mg/dL POC Glucose (mg/dL) 139 H 218 H (75-99) mg/dL Assessment and Plan Assessment: * Generalized weakness appears critical illness myopathy/neuropathy---is making slow improvement. * Left sided weakness > right sided. Unknown cause. Repeat CT head is negative for stroke and CT C-spine is negative for significant spondylotic change. * Encephalopathy, improving. * Ventilator-dependent respiratory failure * Status post tracheostomy and PEG placement * Status post Covid-19 pneumonia * B12 deficiency (elevated methylmalonic acid) * Folate deficiency * Vitamin B6 deficiency * History of cervical fusion (appears C5-C6 region) * Rheumatoid Arthritis. * Pneumothorax * Obesity * DVT left leg, currently on anticoagulation with Eliquis. Plan: * Cannot obtain MRI because of ventilator. If patient has asymmetry of weakness from one side to other recommend MRI Brain and C-spine as outpatient. 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 GBS was felt to be low on differential. Clinical picture appears more like critical illness myopathy/neuropathy. Patient also has nutritional deficiency with B12, folate and B6 deficiency. Consider EMG with [facility] as outpatient. * Patient will need prolonged therapy. In the mean time recommend physical therapy and occupational therapy to work with her on a daily basis. Patient is making small improvement on daily basis and her agrees (he feels she has been making improvement in the past two weeks). * B12 586, methylmalonic acid elevated 0.45 (<0.40), folate 3.8 (4.4-31), vitamin B6 4 (5-50), hemoglobin A1c 4.9, CK 31 normal, aldolase 7.3 normal, rheumatoid factor 68. Patient's TSH is normal 1.38. Completed vitamin B12 injections 1000 g IM for total 3 days and started B12 1000mcg daily. We will also start vitamin B6 replacement. Continue folic acid 1 mg daily. * Patient currently on Eliquis for her history of DVT. * Patient has rheumatoid arthritis, always needed methotrexate. She has not received her methotrexate since last 2 months. * Will defer the rest of medical management to the primary and ICU team. The plan is discussed with the patient's nurse. Will follow-up sporadically. Jean-Paul Pope M.D. Neuro-Hospitalist Time with Patient: Less than 30
[2021-11-17] MEDS: HYDROmorphone 1 MG/ML 1 ML SYRINGE IVP PRN (14:57)
[2021-11-17] MEDS: SODIUM CHLORIDE 0.9% 1,000 ML IV SCH (16:17)
[2021-11-17 18:33] LABS: Glucose,Whole Blood 155 mg/dL (75-99)
[2021-11-17] MEDS: INSULIN DETEMIR (LEVEMIR) 100 UNIT/ML SYR SQ SCH (20:03)
[2021-11-17 23:23] LABS: Glucose,Whole Blood 153 mg/dL (75-99)
[2021-11-18 05:20] LABS: Glucose,Whole Blood 131 mg/dL (75-99)
[2021-11-18] MEDS: INSULIN ASPART (NovoLOG) 100 UNIT/ML VIAL SQ SCH ×4 (05:40→23:09)
[2021-11-18] MEDS: DEXMEDETOMIDINE/0.9% NACL(PMX) 400 MCG in EMPTY BAG 1 BAG IV SCH (05:55)
[2021-11-18 06:18] LABS: Anisocytosis Slight; HCT 27.8 % (34.0-46.0); HGB 8.5 gm/dL (11.4-16.0); Hypochromasia Marked; MCH 27.1 pg (25.0-35.0); MCHC 30.5 g/dL (31.0-37.0); MCV 88.8 fL (80.0-100.0); Mean Platelet Volume 9.3; Platelet Count 289 k/uL (150-450); RBC 3.13 m/uL (3.80-5.40); RDW 16.2 % (11.5-15.5); WBC 11.8 k/uL (3.8-10.6)
[2021-11-18 06:31] LABS: African American GFR (CKD) >90 (>60 ml/min/1.73 sqM); Anion Gap 5 mmol/L; Blood Urea Nitrogen 30 mg/dL (7-17); Calcium 8.4 mg/dL (8.4-10.2); Carbon Dioxide 32 mmol/L (22-30); Chloride 100 mmol/L (98-107); Glucose 123 mg/dL (74-99); Non-African American GFR(CKD) >90 (>60 ml/min/1.73 sqM); Potassium 3.8 mmol/L (3.5-5.1); Sodium 137 mmol/L (137-145)
[2021-11-18] MEDS: LORazepam 2 MG/ML INJ IV PRN ×3 (06:35→19:41)
--- NOTE | 2021-11-18 07:49 | XR ---
EXAMINATION TYPE: XR chest 1V portable DATE OF EXAM: 11/18/2021 COMPARISON: Chest x-ray 11/17/2021 HISTORY: Pneumothorax, right chest tube TECHNIQUE: Single frontal view of the chest is obtained. FINDINGS: Bilateral airspace disease is again noted, exam is expiratory and rotated. Right-sided PIC C line shows the distal tip in the right atrium. Minimal right apical pneumothorax persists. Right-si ded chest tube is stable. No evident pleural effusion. Tracheostomy tube is overlying appropriate pos ition. Cardiac mediastinal silhouette stable. There is subcutaneous emphysema. There are overlying le ads. IMPRESSION: No significant interval change. Correlate for pneumonia, ARDS, stable minimal pneumothor ax
[2021-11-18] MEDS: predniSONE 10 MG TAB PO SCH (08:20)
[2021-11-18] MEDS: APIXABAN 5 MG TAB PO SCH ×2 (08:20→20:24)
[2021-11-18] MEDS: PANTOPRAZOLE 40 MG/10 ML VIAL IV SCH (08:20)
[2021-11-18] MEDS: CYANOCOBALAMIN 500 MCG TAB PO SCH (08:20)
[2021-11-18] MEDS: FOLIC ACID 1 MG TAB PO SCH (08:20)
[2021-11-18] MEDS: POTASSIUM BICARBONATE/CIT AC 20 MEQ TABLET.EFF PO SCH ×3 (08:21→21:26)
[2021-11-18] MEDS: FUROSEMIDE 10 MG/ML 4 ML VIAL IV SCH (08:21)
[2021-11-18] MEDS: METOPROLOL TARTRATE 50 MG TAB PO SCH ×2 (08:21→20:25)
[2021-11-18] MEDS: ZINC SULFATE 220 MG CAP PO SCH (08:21)
[2021-11-18] MEDS: NYSTATIN 100,000 UNIT/ML SUSP 500,000 UNIT/5 ML CUP PO SCH (08:29)
[2021-11-18] MEDS: QUEtiapine 50 MG TAB PO SCH ×2 (08:35→20:26)
[2021-11-18] MEDS: PYRIDOXINE 50 MG TAB PO SCH (08:35)
[2021-11-18] MEDS: busPIRone HCl 5 MG TAB PO SCH ×2 (08:36→20:25)
--- NOTE | 2021-11-18 08:36 | P.PN ---
Subjective Progress Note Date: 11/18/21 Principal diagnosis: Continued right-sided pneumothorax despite chest tube placement, acute hypoxic respiratory failure requiring mechanical ventilation, covid pneumonia on admissi on, remains unvaccinated, leukocytosis with low-grade fever, acute DVT to left lower extremity this admission on Eliquis, with history of prior DVT, new diagnosis of paroxysmal atrial fibrillation this admission. Previous medical history of factor V leiden disorder on Coumadin at home The patient was seen and examined this morning laying in bed in the intensive care unit, still being mechanically ventilated. She does open her eyes, follow commands, able to move all extremities except left foot although does remain very weak, PT/OT working with daily. Anterior chest tube continues to show air leak but appears more prominent with expiration. Objective - Vital Signs Vital signs: Vital Signs Temp 98.4 F 11/18/21 04:00 Pulse 96 11/18/21 07:00 Resp 32 H 11/18/21 07:00 BP 96/53 11/18/21 07:00 Pulse Ox 94 L 11/18/21 07:00 Intake & Output 11/17/21 11/18/21 11/18/21 18:59 06:59 18:59 Intake Total 5407.467 7615.053 68 Output Total 1860 495 50 Balance -676.704 722.053 18 Weight 91.1 kg 88.6 kg Intake: IV 120 120 10 Sodium Chloride 0.9% 1, 120 120 10 000 ml @ 10 mls/hr IV . Q24H [facility] Rx#:[id number] Intake, IV Titration 41.296 195.053 Amount Dexmedetomidine/0.9% NaCl 41.296 195.053 (Pmx) 400 mcg In Empty Bag 1 bag @ 0.2 MCG/KG/HR 4.665 mls/hr IV .[id number] [facility] Rx#:[id number] Tube Feeding 812 812 58 Other 210 90 Output: Chest Tube Drainage 0 5 Chest Tube Right Upper 0 5 Anterior Chest Urine 1860 490 50 Other: Voiding Method Indwelling Catheter Indwelling Catheter # Bowel Movements 1 2 1 ABP, PAP, CO, CI - Last Documented Arterial Blood Pressure 120/111 - Exam CONSTITUTIONAL: Appears comfortable, cooperative, no acute distress. Shakes head no when asked if in pain RESPIRATORY: Lungs sounds diminished bilaterally. Respirations even, nonlabored. Currently on mechanical ventilation through tracheostomy, ventilator settings this morning were FiO2 40%, tidal volume 400, respiratory rate 22, peep 5. CARDIOVASCULAR: S1, S2 present. Regular rate and rhythm, sinus rhythm on telemetry. Palpable peripheral pulses bilaterally. GASTROINTESTINAL: Abdomen soft, nontender, nondistended. Active bowel sounds present 4 quadrants. Tolerating tube feedings through PEG at 58 mL/h GENITOURINARY: Golden present draining clear yellow urine INTEGUMENTARY: Skin is warm and dry NEUROLOGIC: Opens eyes, follows commands, able to move all extremities except left foot, remains very weak INVASIVE LINES AND TUBES: Right-sided double-lumen PICC present. Right-sided anterior pleural chest tube present to wall suction, air leak present with expiration - Allied health notes Allied health notes reviewed: nursing - Labs CBC & Chem 7: 11/18/21 05:16 11/18/21 05:16 Labs: Abnormal Lab Results - Last 24 Hours (Table) 11/17/21 11/17/21 11/17/21 Range/Units 11:25 18:31 23:21 WBC (3.8-10.6) k/uL RBC (3.80-5.40) m/uL Hgb (11.4-16.0) gm/dL Hct (34.0-46.0) % MCHC (31.0-37.0) g/dL RDW (11.5-15.5) % Carbon Dioxide (22-30) mmol/L BUN (7-17) mg/dL Creatinine (0.52-1.04) mg/dL Glucose (74-99) mg/dL POC Glucose (mg/dL) 218 H 155 H 153 H (75-99) mg/dL 11/18/21 11/18/21 11/18/21 Range/Units 05:16 05:16 05:17 WBC 11.8 H (3.8-10.6) k/uL RBC 3.13 L (3.80-5.40) m/uL Hgb 8.5 L (11.4-16.0) gm/dL Hct 27.8 L (34.0-46.0) % MCHC 30.5 L (31.0-37.0) g/dL RDW 16.2 H (11.5-15.5) % Carbon Dioxide 32 H (22-30) mmol/L BUN 30 H (7-17) mg/dL Creatinine 0.26 L (0.52-1.04) mg/dL Glucose 123 H (74-99) mg/dL POC Glucose (mg/dL) 131 H (75-99) mg/dL - Imaging and Cardiology Chest x-ray: image reviewed Assessment and Plan Assessment: 1. Continued right-sided pneumothorax despite chest tube placement, status post anterior chest tube placement by Dr. Gunn 2. Acute hypoxic respiratory failure requiring mechanical ventilation 3. Covid pneumonia on admission, remains on vaccinated 4. Leukocytosis with low-grade fever 5. Acute DVT to left lower extremity this admission on Eliquis, with history of prior DVT 6. New diagnosis of paroxysmal atrial fibrillation this admission, currently in sinus 7. History of factor V leiden disorder on Coumadin at home 8. Multiple other comorbidities Plan: 1. Continue anterior chest tube to continuous wall suction, monitor for resolution of air leak 2. Will monitor daily x-rays 3. Ventilator management per fire protection designer 4. Medical management of other comorbidities per primary care 5. More recommendations to follow. Will continue to see daily but will only write notes periodically Time with Patient: Less than 30
[2021-11-18] MEDS: HYDROmorphone 1 MG/ML 1 ML SYRINGE IVP PRN ×4 (08:43→23:09)
[2021-11-18] MEDS: ASCORBIC ACID 500 MG TAB PO SCH ×2 (08:43→20:25)
--- NOTE | 2021-11-18 10:59 | P.PN ---
Subjective Progress Note Date: 11/18/21 The patient is seen at bedside and per nurse she agrees that she is showing small minimal improvement on daily basis. Otherwise she is about the same. Objective - Vital Signs Vital signs: Vital Signs Temp 98.2 F 11/18/21 08:00 Pulse 92 11/18/21 09:00 Resp 28 H 11/18/21 09:00 BP 120/67 11/18/21 09:00 Pulse Ox 97 11/18/21 09:00 Intake & Output 11/17/21 11/18/21 11/18/21 18:59 06:59 18:59 Intake Total 4304.146 0856.053 390.301 Output Total 1860 495 160 Balance -676.704 722.053 230.301 Weight 91.1 kg 88.6 kg Intake: IV 120 120 30 Sodium Chloride 0.9% 1, 120 120 30 000 ml @ 10 mls/hr IV . Q24H [facility] Rx#:[id number] Intake, IV Titration 41.296 195.053 28.301 Amount Dexmedetomidine/0.9% NaCl 41.296 195.053 28.301 (Pmx) 400 mcg In Empty Bag 1 bag @ 0.2 MCG/KG/HR 4.665 mls/hr IV .[id number] [facility] Rx#:[id number] Tube Feeding 812 812 232 Other 210 90 100 Output: Chest Tube Drainage 0 5 Chest Tube Right Upper 0 5 Anterior Chest Urine 1860 490 160 Other: Voiding Method Indwelling Catheter Indwelling Catheter Indwelling Catheter # Voids 1 # Bowel Movements 1 2 1 ABP, PAP, CO, CI - Last Documented Arterial Blood Pressure 120/111 - Exam GENERAL: The patient is lying in bed and is not in acute distress. LUNG: Trached and on ventilator. INTEGUMENTARY: Edema 1-2+ NEUROLOGICAL: Is on IV Precedex 0.6mcg/kg/hr. Higher mental function: The patient is awake, alert. Is oriented to her self. She is trying to verbalize but not producing any sound but can be understood thru lip reading and her nodding. She correctly stated some objects (watch and pen). She is following some commands (sticking tongue out, moving extremities). Cranial nerves: The pupils are round, equal and reactive to light. Visual patterson are hard to assess. EOM is intact looking to right and left and no nystagmus. No facial weakness. Motor: The strength is limited because of her condition. But is able to move the right side better than left. Right elbow is able 3/5 and able to pick-up her forearm above bed and lift hand above gravity. While left upper extremity is able to have periodic movement of lifting forearm above gravity. Right ankle is 3/5 While left lower extremity is 0/5. Decrease tone throughout. Normal bulk. Sensation: Sensation is normal to touch throughout. Reflexes: Patient refused and was in pain upon attempting to perform. WORK-UP: * CT head on 11/08/21 showed no acute process. * CT head on 11/14/2021 is reported as negative. It is reported as bilateral mastoiditis was also significant left-sided otitis media. Cholesteatoma is possible. No change compared to recent exam on 11/08/2021. I personally reviewed the CT of the head and I do not appreciate any acute subacute ischemia and there is no interpretable hemorrhage * CT cervical spine is reported as previous cervical spine fusion surgery. Spondylitic change. No acute bony abnormality. No fracture. I personally reviewed this. Of the neck and the patient does have previous cervical fusion over the C5-C6 region but there is no severe spondylitic changes. * Carotid Doppler showed no significant stenosis. * 2-D echo from 11/01/2021 showed mild concentric LVH. EF is between 55-60%. Aortic valve not well visualized. - Labs CBC & Chem 7: 11/18/21 05:16 11/18/21 05:16 Labs: Abnormal Lab Results - Last 24 Hours (Table) 11/17/21 11/17/21 11/17/21 Range/Units 11:25 18:31 23:21 WBC (3.8-10.6) k/uL RBC (3.80-5.40) m/uL Hgb (11.4-16.0) gm/dL Hct (34.0-46.0) % MCHC (31.0-37.0) g/dL RDW (11.5-15.5) % Carbon Dioxide (22-30) mmol/L BUN (7-17) mg/dL Creatinine (0.52-1.04) mg/dL Glucose (74-99) mg/dL POC Glucose (mg/dL) 218 H 155 H 153 H (75-99) mg/dL 11/18/21 11/18/21 11/18/21 Range/Units 05:16 05:16 05:17 WBC 11.8 H (3.8-10.6) k/uL RBC 3.13 L (3.80-5.40) m/uL Hgb 8.5 L (11.4-16.0) gm/dL Hct 27.8 L (34.0-46.0) % MCHC 30.5 L (31.0-37.0) g/dL RDW 16.2 H (11.5-15.5) % Carbon Dioxide 32 H (22-30) mmol/L BUN 30 H (7-17) mg/dL Creatinine 0.26 L (0.52-1.04) mg/dL Glucose 123 H (74-99) mg/dL POC Glucose (mg/dL) 131 H (75-99) mg/dL Assessment and Plan Assessment: * Generalized weakness appears critical illness myopathy/neuropathy---is making slow improvement on in last two weeks on daily basis. * Left sided weakness > right sided. Unknown cause. Repeat CT head is negative for stroke and CT C-spine is negative for significant spondylotic change. * Encephalopathy, improving. * Ventilator-dependent respiratory failure * Status post tracheostomy and PEG placement * Status post Covid-19 pneumonia * B12 deficiency (elevated methylmalonic acid) * Folate deficiency * Vitamin B6 deficiency * History of cervical fusion (appears C5-C6 region) * Rheumatoid Arthritis. * Pneumothorax * Obesity * DVT left leg, currently on anticoagulation with Eliquis. Plan: * Cannot obtain MRI because of ventilator. If patient has asymmetry of weakness from one side to other recommend MRI Brain and C-spine as outpatient. 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 GBS was felt to be low on differential. Clinical picture appears more like critical illness myopathy/neuropathy. Patient also has nutritional deficiency with B12, folate and B6 deficiency. Consider EMG with NCS as outpatient. * Patient will need prolonged therapy. In the mean time recommend physical therapy and occupational therapy to work with her on a daily basis. Patient is making small improvement on daily basis and her agrees (he feels she has been making improvement in the past two weeks). * B12 586, methylmalonic acid elevated 0.45 (<0.40), folate 3.8 (4.4-31), vitamin B6 4 (5-50), hemoglobin A1c 4.9, CK 31 normal, aldolase 7.3 normal, rheumatoid factor 68. Patient's TSH is normal 1.38. Completed vitamin B12 injections 1000 g IM for total 3 days and started B12 1000mcg daily. We will also start vitamin B6 replacement. Continue folic acid 1 mg daily. * Patient currently on Eliquis for her history of DVT. * Patient has rheumatoid arthritis, always needed methotrexate. She has not received her methotrexate since last 2 months. * Will defer the rest of medical management to the primary and ICU team. The plan is discussed with the patient's nurse. Will follow-up sporadically. Jean-Paul Pope M.D. Neuro-Hospitalist Time with Patient: Less than 30
[2021-11-18 11:41] LABS: Glucose,Whole Blood 227 mg/dL (75-99)
--- NOTE | 2021-11-18 12:03 | P.PN ---
Subjective Progress Note Date: 11/18/21 11/18/2021, the patient is being seen for a follow-up. The patient is being gradually weaned off the Precedex and currently she is on to 0.3 mcg/kg per minute. The patient is awake. At times anxious had for the most part of her anxiety is under good control. She remains a combination of BuSpar and Seroquel. The patient's condition is essentially the same as yesterday. She remains profoundly weak and there is significant motor weakness in all 4 extremities. I do not appreciate any improvement in her motor functions. Her ability to use her fingers is extremely poor and she doesn't have any good time study technician at this point in time. Motor function lower extremity is also extremely weak. She remains on a mechanical ventilator and I've noticed significant improvement in the air leak which is intermittent at this point in time. No significant volume loss on the mechanical ventilator and the return tidal volumes are adequate for now. She did assist control mode at the rate of 22 with a tidal v olume of 400 and FiO2 of 40% with a PEEP of 5. Chest x-ray shows a very tiny right apical pneumothorax, significant drop in size. The right-sided chest tube is in place and air leak is intermittent. The patient remains on a negative fluid balance and the fluid balance over the past 24 hours is been -222 mL. The patient has a creatinine of 0.26 with a mean of 30 and a sodium level of 137. The white cell count is at 11.8 and hemoglobin of 8.5. The patient remains on vital high protein at the rate of 50 mL an hour. The patient is afebrile. She is hemodynamically stable. No other significant events otherwise. She has a stage II decub ulcer. She is also working with physical therapy essentially to do passive range of motion. Objective - Vital Signs Vital signs: Vital Signs Temp 98.2 F 11/18/21 08:00 Pulse 90 11/18/21 11:00 Resp 32 H 11/18/21 11:00 BP 113/61 11/18/21 11:00 Pulse Ox 97 11/18/21 11:00 Intake & Output 11/17/21 11/18/21 11/18/21 18:59 06:59 18:59 Intake Total 0800.391 4147.053 506.301 Output Total 1860 495 220 Balance -676.704 722.053 286.301 Weight 91.1 kg 88.6 kg Intake: IV 120 120 30 Sodium Chloride 0.9% 1, 120 120 30 000 ml @ 10 mls/hr IV . Q24H [facility] Rx#:[id number] Intake, IV Titration 41.296 195.053 28.301 Amount Dexmedetomidine/0.9% NaCl 41.296 195.053 28.301 (Pmx) 400 mcg In Empty Bag 1 bag @ 0.2 MCG/KG/HR 4.665 mls/hr IV .[id number] [facility] Rx#:[id number] Tube Feeding 812 812 348 Other 210 90 100 Output: Chest Tube Drainage 0 5 Chest Tube Right Upper 0 5 Anterior Chest Urine 1860 490 220 Other: Voiding Method Indwelling Catheter Indwelling Catheter Indwelling Catheter # Voids 1 # Bowel Movements 1 2 1 ABP, PAP, CO, CI - Last Documented Arterial Blood Pressure 120/111 - Exam GENERAL EXAM: Awake and follows simple command, trached to the ventilator, on assist control mode of ventilation with a rate of22, tidal volume 400, FiO2 of 40% with a PEEP of 5, patient remains on a low dose Precedex HEAD: Normocephalic/atraumatic. EYES: Normal reaction of pupils, equal size. Conjunctiva pink, sclera white. NOSE: Clear with pink turbinates. THROAT: No erythema or exudates. NECK: No masses, no JVD, no thyroid enlargement, no adenopathy. CHEST: No chest wall deformity. Symmetrical expansion. 1 right-sided chest tubes in place, there is continous air leak from right-sided chest tube LUNGS: Equal air entry with no crackles, wheeze, rhonchi or dullness. CVS: Irregular rate and rhythm, normal S1 and S2, no gallops, no murmurs, no rubs ABDOMEN: Soft, nontender. No hepatosplenomegaly, normal bowel sounds, no guarding or rigidity. PEG tube in place with tube feedings infusing with vital HP EXTREMITIES: No clubbing, significant gen edema, no cyanosis, 2+ pulses and upper and lower extremities. MUSCULOSKELETAL: Muscle strength and tone extremely weak SPINE: No scoliosis or deformity SKIN: No rashes CENTRAL NERVOUS SYSTEM:Awke and alert, trached to the ventilator, Follows simple command. No focal deficits, tone is normal in all 4 extremities. Generalized motor weakness in all 4 extremities and the patient has difficulties with movement and motor functions. - Labs CBC & Chem 7: 11/18/21 05:16 11/18/21 05:16 Labs: Abnormal Lab Results - Last 24 Hours (Table) 11/17/21 11/17/21 11/18/21 Range/Units 18:31 23:21 05:16 WBC 11.8 H (3.8-10.6) k/uL RBC 3.13 L (3.80-5.40) m/uL Hgb 8.5 L (11.4-16.0) gm/dL Hct 27.8 L (34.0-46.0) % MCHC 30.5 L (31.0-37.0) g/dL RDW 16.2 H (11.5-15.5) % Carbon Dioxide (22-30) mmol/L BUN (7-17) mg/dL Creatinine (0.52-1.04) mg/dL Glucose (74-99) mg/dL POC Glucose (mg/dL) 155 H 153 H (75-99) mg/dL 11/18/21 11/18/21 11/18/21 Range/Units 05:16 05:17 11:40 WBC (3.8-10.6) k/uL RBC (3.80-5.40) m/uL Hgb (11.4-16.0) gm/dL Hct (34.0-46.0) % MCHC (31.0-37.0) g/dL RDW (11.5-15.5) % Carbon Dioxide 32 H (22-30) mmol/L BUN 30 H (7-17) mg/dL Creatinine 0.26 L (0.52-1.04) mg/dL Glucose 123 H (74-99) mg/dL POC Glucose (mg/dL) 131 H 227 H (75-99) mg/dL Assessment and Plan Plan: #1. Acute hypoxic respiratory failure related to COVID-19 pneumonia complicated with ARDS. Patient was intubated and on 09/25/2021, status post tracheostomy and PEG tube placement on 10/14/2021. The patient remains ventilator dependen weaning parameters remain low. Nevertheless, on a positive note, the air leak is intermittent and minimal at this point in time. The patient's has further diminution of the right apical pneumothorax. There is diffuse bilateral pulmona ry infiltrates as stated earlier. #2. Acute COVID 19 related pneumonia, still on prednisone which is a part of the burst taper. The patient is currently on prednisone 10 mg by mouth daily. #3. Generalized motor weakness in all 4 extremities related to critical illness polyneuropathy and myopathy, extensive edema in all 4 extremities, currently on IV Lasix. The patient achieve a negative fluid balance and the edema is improved in all 4 extremities. The motor function has been unchanged compared to yesterday. #4. Bilateral pneumothoraces requiring bilateral chest tube placements, with s ubsequent removal and recurrence of right-sided pneumothorax, requiring placement of another chest tube on the right, and subsequent Thoravent placement on 10/25/2021, and subsequent removal of the Thoravent on 10/29/2021 and placement of another right-sided chest tube on 10/29/2021. The patient is a intermittent air leak in the right sided chest tube and there is a persistent pneumothorax on the right and there is a minor motion the right apical pneumothorax on today's chest x-ray #5. Acute deep vein thrombosis on Eliquis, no signs of bleeding #6. New-onset A. fib on 10/31/2021, currently in sinus, patient was on Cardizem drip, now on oral Cardizem, remains on Eliquis, currently in sinus rhythm #7. Subcutaneous emphysema resolved #8. Prior history of DVT #9. Increased anxiety #10. Mildly elevated liver enzymes secondary to COVID-19, recovered #11. Nonsustained ventricular tachycardia resolved #12. History of fibromyalgia #13 chronic anemia, multifactorial, expected outcome of prolonged ICU stay #14 critical illness polyneuropathy and myopathy with profound weakness in all 4 extremities. Plan Continue ventilator support Drop the PEEP further down to 3 Weaning parameters remain low, not ready for any weaning exercises as the patient continues to have significant motor weakness in all 4 extremities Illuminate the leak decompensating factor on a mechanical ventilator Wean off Precedex and discontinue Discontinue prednisone Continue IV Lasix 40 mg once a day Continue Seroquel Continue BuSpar Continue Eliquis for long-term anticoagulation Continued IV Protonix Continue vital high protein for enteral feeding and nutritional support Continue with the Physical therapy for passive range of motion We'll check weaning parameters, these are being checked on a daily basis. The patient rapid shallow breathing index. She is not ready for any weaning at this point in time. This will be a prolonged wean as the patient has significant amount of motor weakness in all 4 extremities. Condition remains critical and will continue to follow make further accommod ation based on her progress. This critically care evaluation was done and more than 30 minutes. Time with Patient: Greater than 30
[2021-11-18] MEDS: SODIUM CHLORIDE 0.9% 1,000 ML IV SCH (12:49)
[2021-11-18] MEDS ORDERED: LORazepam 2 MG/ML INJ IV STA (14:15)
[2021-11-18 17:34] LABS: Glucose,Whole Blood 132 mg/dL (75-99)
[2021-11-18] MEDS: INSULIN DETEMIR (LEVEMIR) 100 UNIT/ML SYR SQ SCH (20:25)
--- NOTE | 2021-11-18 21:53 | P.PN ---
Subjective Progress Note Date: 11/17/21 This is a 61-year-old female who was recently admitted with acute COVID-19 pneumonia with acute COVID-19 bilateral interstitial pneumonia and also with transaminitis and being closely monitored. Patient remains in the ICU and currently intubated and sedated with an FiO2 of 70% and PEEP is 18. 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 Patient did have a venous Doppler study done recently which showed left leg DVT and patient is maintained on Eliquis will continue. Patient also continues on empiric antibiotics and awaiting for sputum culture finalized. Patient was started on IV cefepime and will continue. Patient is also continued on oral dexamethasone along with vitamin and zinc supplements and will continue. Patient with some mild volume overload and given a dose of IV Lasix push today. 09/29/2021 Patient is seen and evaluated this morning continues to be closely monitored in the ICU and continues to be on mechanical ventilation and sedated. FiO2 was increased at 80% with a PEEP of 18 and oxygen saturations between 87-91%. Patient developing subcutaneous emphysema in the neck and chest wall area and chest x-ray today shows bilateral multifocal and confluent opacification is redemonstrated consistent with COVID-19 infection with a new small left apical pneumothorax estimated under 5% with new pneumomediastinum and recurrent overlying subcutaneous emphysema noted. Patient is white blood count mildly elevated at 16.1 and is continued on oral dexamethasone along with oral eliquis for anticoagulation. Patient continues to be on IV cefepime and blood and sputum cultures are negative thus far. 09/30/2021 Patient is seen today continues to be closely monitored in the ICU with multiple medical consultations following. Patient continues to be mechanically intubated and sedated with continued subcutaneous emphysema noted. Chest xray shows a trace left apical pneumothorax that is minimally smaller 7mm versus 1cm previously, extensive bilateral subcutaneous emphysema persists and diffuse interstitial changes and bilateral patchy opacities persist with slight improvement in aeration in the lower lungs. Per nursing staff corbin was clogged with copious amounts of white discharge and will add diflucan and corbin catheter has been changed and draining adequately. Patient continues on IV cefepime. Patient tolerating tube feeds and will continue. 10/01/2021 Patient is seen and evaluated in follow up this morning and continues to be closely monitored. Multiple medical consultations following and patient con tinues to be on mechanical vent and sedated. Patient continues on IV Cefepime and diflucan. Patient chest xray today shows stable extensive subcutaneous emphysema, no pneumothorax, and patchy bilateral lung infiltrates remain present. INflammatory markers trending down. 10/04/2021 Patient is seen in follow-up continues to be closely monitored in the ICU. Patient remains on mechanical vent with an FI02 of 65% and peep is 18. Weaning trials being attempted with pulmonary software design engineer following closely. Patient continues with extensive subq emphysema noted on exam. 10/05/2021 Patient Is seen and evaluated this morning with continued attempts at weaning and continues on mechanical vent and intubated with pulmonary software design engineer following closely. Patient remains on Eliquis which will be held as surgery Dr. Nelson was consulted for possible PEG and trach tube placement for unsuccessful attempts at weaning from ventilation and prolonged hospitalization on mechanical vent. Chest x-ray today shows recurrent tiny left apical pneumothorax estimated under 5% with worsening overlying subcutaneous emphysema and again pneumomediastinum redemonstrated with multifocal confluent opacification's redemonstrated consistent with COVID-19 infection and/or arts are redemonstrated with no significant change from one day previously. Patient continues on FiO2 of 65% and PEEP was weaned down to 14 today. IV cefepime discontinued. 10/06/2021 Patient is seen in follow-up this morning per nursing staff patient had multiple runs of ectopy an irregular heart rate and rhythms with PVCs and cardiology consulted. Patient was placed on lidocaine drip and was originally on eliquis is currently on hold for possible PEG and trach placement with general surgery following. Patient had difficulty maintaining oxygen saturations and FiO2 was increased to 100% and PEEP continues at 14. Multiple medical consultations following and patient continues on oral steroids along with vitamin and zinc supplements along with fluconazole. Patient being started on IV Lasix daily and recommend close monitoring of electrolytes and kidney functions. 10/07/2021 Patient is seen in follow-up this morning continues to be monitored closely in the ICU with multiple medical consultations following. Patient is currently on mechanical vent with an FiO2 of 80% and PEEP is 16. General surgery also following for possible PEG and trach placement and will need to discuss with surgery about when this will occur. Patient remains on fluconazole. She also continues on vitamin and zinc supplements along with oral dexamethasone, clevidipine, Nimbex, IV Lasix, fentanyl and propofol and is off norepinephrine. Chest x-ray shows stable bilateral lung infiltrates. 10/08/2021 Patient is seen this morning continues to be on mechanical vent with an FiO2 of 85% and PEEP of 16. Patient continues with extensive subcutaneous emphysema and plans are for possible PEG and trach placement although on hold until possibly next week once more stable. Patient continues on Cleviprex along with fentanyl and propofol and is receiving IV Lasix daily. Patient also continues on lidocaine drip which is currently on hold and cardiology is following closely. Anticoagulant was resumed for now again until more stable to undergo PEG and trach placement. Chest x-ray today shows persistent bilateral multifocal and confluent increased opacification is with persistent overlying subcutaneous emphysema noted in pneumomediastinum is again redemonstrated. 10/09/2021 Patient evaluated today in ICU mechanical ventilation with FiO2 of 80%. Chest x-ray this morning shows similar multifocal airspace opacities and stable support lines and tubes. Similar subcutaneous emphysema scattered throughout the visualized thorax. PEG and trach plan for next week once more stable. Current meds include Cleviprex, Nimbex, fentanyl, propofol. She is receiving IV fluconazole, as well as IV Lasix. Levophed and Lidocaine gtt;s are on hold. Positive bowel sounds. Current vitals afebrile, heart rate 71, blood pressure 135/60 and oxygen saturation is 93%. Respirations 30. Labs today, white count 17, hemoglobin 11.6, sodium 139, potassium 3.8, BUN 34, creatinine 0.91, CO2 33, calcium 8.7, ALT 54, albumin 2.8 with blood sugars in the 100s. 10/10/2021 Patient evaluated today in the ICU on the mechanical VENT with fio2 of 100%. Po sitive bowel movement today, Stage 2 pressure ulcer on coccyx per RN, optifoam ordered. Per RN they were unable to patient as she was desaturating. They're unable to wean Fi02 currently as she does desaturate with any time of movement. She was lying more on her right side during evaluation and pulse ox was dropping into high 80s she was being repositioned by nurses. Plan is to PEG/TRACH patient tomorrow. Last family update was 4 days ago. We will call and discuss case today. Patient is afebrile, heart rate 84, respirations 30, blood pressure 141/55, 92% oxygen saturation on 100% Fi02, which was increased today up from 70 Fi02%. Labs today show WBC of 15.6, hgbl 10.7, sodium 138, potassium 3.9, chloride 100, CO2 37, glucose 117, calcium 8.2. Chest xray today shows pneumonia, ARDS. 10/11/2021 Patient is seen and evaluated in follow-up this morning continues to be closely monitored in the ICU and patient is continued on FiO2 of 90% and PEEP is 16 with multiple medical consultations following. Chest x-ray today shows new left- sided pneumothorax estimated 10-20% with overlying subcutaneous emphysema and pneumomediastinum redemonstrated with bilateral multifocal and confluent opac ification's redemonstrated consistent with COVID-19 infection and/or arts and no significant change from one day previous. Patient is status post left chest tube insertion with pulmonary software design engineer. Cardiology following and patient is off lidocaine drip and maintaining sinus rhythm. Patient also continues on vitamin and zinc supplements along with oral dexamethasone and patient continues on IV Lasix 40 mg daily. Patient also continues off norepinephrine and is currently maintained on IV cefepime along with fluconazole. General surgery following as well and plan is for peg and trach placement in the am 10/12/2021 Patient is seen in the ICU this morning continues to be closely monitored by multiple medical consultations. Patient was scheduled for PEG and trach placement with general surgery Dr. Nelson today although canceled as patient became hypotensive requiring Levophed along with acute blood loss anemia and hemoglobin dropped to 6.5 this morning requiring 1 unit of PRBC. Patient continues with left chest tube with pneumothorax and chest x-ray today shows the jahaira is difficult to clearly identify on the present exam and the ET tube may be approximately 1 cm from the jahaira and there are bilateral chest tubes present with continued diffuse interstitial opacification is and more focal bibasilar opacification is with subcutaneous emphysema persists along the upper chest with slight improvement on the left. No appreciable pneumothorax noted. Patient having worsening right pleural effusion last night and received a right- sided chest tube with pulmonary software design engineer. FiO2 is 90% and PEEP of 16. Again overall prognosis remains extremely poor and guarded. 10/13/2021 Patient is seen in follow-up this morning in the ICU with multiple medical consultations following. Lengthy discussion was had with pulmonary software design engineer and family members and would like to continue with full CODE STATUS and plan is in place for PEG tube and tracheostomy placement tomorrow. Anticoagulant on hold and Dr. Nelson plans for surgery tomorrow. Patient continues on oral dexamethasone along with IV cefepime, vitamin and zinc supplements. Patient also continues on Cleviprex and Nimbex. Patient also continues on fentanyl and propofol and will continue. Chest x-ray today shows stable portable chest with bilateral chest tubes without sizable pneumothorax identified and continued subcutaneous air persists with persistent interstitial changes bilaterally with airspace disease in the bilateral lung bases that are unchanged. FiO2 is 60% and PEEP of 16. 10/14/2021 Patient is seen and evaluated in the ICU being closely monitored with multiple medical consultations following. at the bedside today and had detailed discussion with overall prognosis. Plan is to proceed with PEG tube and tracheostomy placement with surgery Dr. Nelson today and anticoagulant continues to be on hold for this procedure. Patient continues on mechanical ventilation with an FiO2 of 70% and PEEP of 16. Chest x-ray today shows improving infiltrate with bibasilar residual and bilateral chest tubes remain present with no pneumothorax evident on either side and again subcutaneous emphysema is noted. 10/15/2021 Patient is seen in the ICU being closely monitored. Patient is status post PEG and trach placement yesterday. Chest x-ray today shows bilateral patchy lung infiltrates greater at the right base with diffuse increased lung markings and bilateral chest tubes remain present and subcutaneous emphysema on the right is diminished. Patient continues with an FI02 of 60 and peep is 16. To resume tube feeds per surgery. Patient continues on norepinephrine and sedation. Patient is receiving IV lasix daily. 10/16/2021 Patient is currently in the MICU and remains on ventilator. Status post tracheostomy and PEG tube placement on 10/14/2021. Patient is sedated and paralyzed. Also on Cleviprex. Chest x-ray showed no acute cardiopulmonary disease with no interval changes. Laboratory data showed WBC 16.9 hemoglobin 8.9 and platelets 278 BUN 19 and creatinine 0.5 and calcium 8.1 patient is being continued on dexamethasone 6 mg daily, Lasix 40 mg IV daily and multivitamins and anticoagulation with Eliquis. Pulmonary and general surgery is on board. 10/17/2021 Patient is in the MICU. Remains on the current ventilator via tracheostomy. Status post tracheostomy and PEG tube placement on 10/14/2021. Sedated and paralyzed and also on fentanyl drip. Currently on assist control with tidal volume of 420, FiO2 80% and PEEP of 16. Respiratory of 30. Chest x-ray showed no interval change in acute cardiopulmonary disease Laboratory data showed WBC 15.8 hemoglobin 8.2 and platelets 271 Sodium 136 potassium 3.1 chloride 100 bicarb is 32 BUN 21 creatinine 0.48 and albumin 2.3 Patient is being continued on Lasix IV, dexamethasone and anticoagulation with Eliquis. 10/18/2021 Patient is seen in follow-up and continues in the ICU with multiple medical consultations following. Patient continues on mechanical vent with an FI02 of 70% and peep is 16. Chest xray shows overall stable exam with interstitial changes and bilateral patchy infiltrates with right greater than left and greater at the bases with bilateral chest tubes noted. no appreciable pneumothorax. Patient continues on propofol and fentanyl along with cleviprex and rocuronium. Eliquis has been resumed. Potassium is 3.3 and will be replaced per protocol. Patient also continues to receive IV lasix daily. 10/19/2021 Patient is seen this morning and continues to be in the ICU with multiple medical consultations following. Patient continues with bilateral chest tubes and remains on mechanical ventilation with an FiO2 of 65% and PEEP is 16. Chest x-ray today shows Bilateral multifocal and confluent opacification greatest in the lower lungs consistent with COVID-19 infection and/or ARDS all redemonst rated with no significant change from one day earlier and continued bilateral chest tubes without pneumothorax redemonstrated. 10/20/2021 Patient continues to be in the ICU under close critical monitoring with multiple medical consultations following. Patient continues with bilateral chest tubes although per nursing staff may possibly discontinued today. Chest x-ray today shows stable portable chest with no change in scattered mixed interstitial and alveolar infiltrates. Patient remains on mechanical ventilation via tracheostomy with an FiO2 of 55% and PEEP is 15. Patient continues on Cleviprex along with rocuronium and sedation. 10/21/2021 Patient continues in the MICU being closely monitored. Chest tubes were removed today and chest xray stable with interstitial changes and basilar ground glass, that is similar to previous with slight improvement. Patient continues on mechanical vent with an FI02 of 70% and peep is 14. Patient remains sedated and per nursing staff working on weaning paralytics. Patient continued on rocuronium. Patient is tolerating tube feeds and also continues on IV lasix daily with generalized edema noted throughout. 10/22/2021 Patient is currently MICU. Patient was taken off paralytic and chest tubes yesterday. Continued on pressure support with PEEP of 13. 88 this morning patient again desaturated. Patient became hypotensive and patient was started on norepinephrine. Chest x-ray showed large pneumothorax on the right. Right chest tube was r einserted. Patient is on pressure control. Remains sedated and mechanically ventilated. Laboratory data showed WBC 13.7 hemoglobin 7.7 and platelets 314 Sodium 140 potassium 3.0 chloride 102 bicarb is 37 BUN 19 and creatinine 0.44 and calcium 8.1 Patient is being continued dexamethasone multivitamins and anticoagulation with Eliquis. Patient is also on IV Lasix. Potassium will be replaced. 10/23/2021 Patient is currently MICU. Patient is on mechanical ventilator via trach tube. Patient developed right-sided tension pneumothorax. Again patient had issues with pneumothorax around 10 PM yesterday. Chest tube has to be replaced. Patient is also requiring pressor support. Off pressors this morning. On pressure support. PEEP of 13 and FiO2 100%. Laboratory data showed WBC 13.7 hemoglobin 7.7 and platelets 314 Sodium 140 potassium 3.0 chloride 102 bicarb is 37 BUN 19 and creatinine 0.44 and calcium 8.1 cultures have been negative. Patient is being current on dexamethasone, Eliquis and also IV Lasix 40 mg daily. 10/24/2021 Patient is currently in the MICU. Currently on mechanical ventilator via tracheal tube. Continue propofol and fentanyl. Remains pressure support with PEEP of 13 FiO2 reduced to 70%. Chest x-ray showed bilateral multifocal and confluent opacities consistent with COVID-19 infection and ARDS are redemonstrated and stable. Right-sided chest tube with small apical pneumothorax estimated 10 to 15% improved from 1 day earlier. Pneumo mediastinum noted. Laboratory data showed WBC 14.2 hemoglobin 7.1 and platelets 317 Sodium 140 potassium 3.2 chloride 104 bicarb is 38 BUN 20 and creatinine 0.46 and calcium 7.8. Patient is being continued on dexamethasone, Eliquis and also on IV Lasix. Currently on multivitamins. 11/13/2021 Patient is currently in the MICU. Awake alert and opening her eyes with verbal stimuli. Continues to be mechanical ventilator via tracheostomy tube. And also right sided chest tube in place.. Chest x-ray showed there is not significant interval change. Correlate for pneumonia. Stable right pneumothorax. Patient is being Precedex due to restlessness Anxiety. Patient is IV Lasix 40 mg twice daily. Tolerating tube feedings. Patient has been afebrile. Currently being continued anticoagulation with El iquis and prednisone 10 mg daily which is being tapered down. Neurology and pulmonary is on board. 11/14/2021 Patient is in the MICU. Awake alert but he is extremely weak. Patient was also Precedex drip. Otherwise remains on mechanical ventilator with assist control tidal volume of 400 and respiratory 30 and FiO2 50% PEEP of 10. Patient does chest tube due to right-sided pneumothorax. Chest x-ray showed stable right- sided pneumothorax. Patient is also receiving IV Lasix 40 mg every 12. Also on long-term anticoagulation with Eliquis. Patient is on prednisone which is being tapered down. Patient has been afebrile. Tolerating tube feedings. No diarrhea.. Laboratory showed WBC 14.6 hemoglobin 8.8 and platelets 330 sodium 137 potassium potassium 3.6 chloride 104 bicarb is 31 BUN 30 and creatinine 0.27 and calcium 8.2 11/15/2021 Patient remains in the MICU. Currently mechanical ventilator via tracheostomy tube. Remains on assist control with tidal volume 400 and FiO2 50% and PEEP of 8. Patient tolerated pressure support briefly arrives very anxious and is being continued on Precedex drip. Also on BuSpar for chronic anxiety. Patient is being continued IV Lasix every 12 and also on prednisone tapering course. Remains on long-term anticoagulation with Eliquis. Blood sugar slightly elevated and was started Levemir 5 units at bedtime along with insulin sliding scale. Laboratory reviewed showed WBC 12.5 hemoglobin 8.4 and platelets 299 sodium 137 potassium 3.4 chloride 99 bicarb 35 BUN 36 and creatinine 0.32 blood sugar is 160 3 in the morning and 235 before lunch. Calcium 8.2 11/16/2021 Patient is awake alert and he is being continued on Precedex drip due to severe anxiety and on BuSpar due to chronic anxiety. Remains on mechanical ventilator via tracheostomy tube. FiO2 50% and tidal volume 400 and PEEP of 5 today. Levemir dose increased to 10 units at bedtime along with insulin sliding scale. Patient is on prednisone taper increase on tapering course at 10 mg daily. Chest x-ray showed small right apical pneumothorax estimated near 10% despite chest tube placement redemonstrated and stable. Patient has been afebrile. Patient has been extremely weak otherwise. Unable to move bilateral lower extremities. Laboratory data showed WBC 11.9 hemoglobin 8.6 and platelets 301 sodium 137 potassium 3.5 chloride 100 bicarb is 38 BUN 13 creatinine 0.34 and blood sugar is 173 and calcium 8.3 11/17/2021 Patient currently in the MICU. On mechanical letter assist-control next tidal volume 400, FiO2 40% and PEEP of 5. Awake alert but extremely weak. Able to respond verbally. Remains Precedex drip. Chest x-ray showed there is small right apical pneumothorax decreased in size from prior study. Diffuse reticulonodular infiltrates persist unchanged. Righ t-sided chest tube is in place. Laboratory data showed WBC 11.1 hemoglobin 8.6 and platelet 277 BUN 28 and creatinine 0.34 and calcium 8.4. Patient is being continued on Eliquis multivitamin supplementation and Lasix 40 mg IV daily. Blood sugar is controlled. Currently on 10 mg daily of prednisone. Current medications reviewed. Objective - Vital Signs Vital signs: Vital Signs Temp 98.7 F 11/17/21 12:00 Pulse 96 11/17/21 14:00 Resp 22 11/17/21 14:00 BP 122/63 11/17/21 14:00 Pulse Ox 95 11/17/21 14:00 Intake & Output 11/16/21 11/17/21 11/17/21 18:59 06:59 18:59 Intake Total 1345.097 982.125 821.296 Output Total 9545 345 0695 Balance -519.903 297.125 -788.704 Weight 91.1 kg 91.1 kg Intake: IV 120 120 80 Sodium Chloride 0.9% 1, 120 120 80 000 ml @ 10 mls/hr IV . Q24H ABRA[facility] Rx#:[id number] Intake, IV Titration 145.097 134.125 41.296 Amount Dexmedetomidine/0.9% NaCl 145.097 134.125 41.296 (Pmx) 400 mcg In Empty Bag 1 bag @ 0.2 MCG/KG/HR 4.665 mls/hr IV .[id number] ABRAHAM Rx#:[id number] Tube Feeding 870 638 580 Other 210 90 120 Output: Chest Tube Drainage 0 0 Chest Tube Right Upper 0 0 Anterior Chest Urine 1737 970 1743 Other: Voiding Method Indwelling Catheter Indwelling Catheter Indwelling Catheter # Bowel Movements 1 ABP, PAP, CO, CI - Last Documented Arterial Blood Pressure 120/111 - Exam - Exam -GENERAL: The patient is status post tracheostomy. Patient generally weak HEENT: Pupils are round and equally reacting to light. EOMI. No scleral icterus. No conjunctival pallor. Normocephalic, atraumatic. No pharyngeal erythema. No thyromegaly. CARDIOVASCULAR: S1 and S2 present. No murmurs, rubs, or gallops. -PULMONARY: Bilateral decreased breath sounds with bilateral crepitation ABDOMEN: Soft, nontender, nondistended, normoactive bowel sounds. No palpable organomegaly. MUSCULOSKELETAL: No joint swelling or deformity. EXTREMITIES: No cyanosis, clubbing, or pedal edema. -NEUROLOGICAL: Gross neurological examination did not reveal any focal deficits. General awake, more on the left side SKIN: No rashes. no petechiae. - Labs CBC & Chem 7: 11/18/21 05:16 11/18/21 05:16 Labs: Abnormal Lab Results - Last 24 Hours (Table) 11/16/21 11/17/21 11/17/21 Range/Units 17:35 00:07 05:16 WBC 11.1 H (3.8-10.6) k/uL RBC 3.14 L (3.80-5.40) m/uL Hgb 8.6 L (11.4-16.0) gm/dL Hct 27.8 L (34.0-46.0) % MCHC 30.7 L (31.0-37.0) g/dL RDW 16.1 H (11.5-15.5) % Carbon Dioxide (22-30) mmol/L BUN (7-17) mg/dL Creatinine (0.52-1.04) mg/dL Glucose (74-99) mg/dL POC Glucose (mg/dL) 167 H 135 H (75-99) mg/dL 11/17/21 11/17/21 11/17/21 Range/Units 05:16 06:10 11:25 WBC (3.8-10.6) k/uL RBC (3.80-5.40) m/uL Hgb (11.4-16.0) gm/dL Hct (34.0-46.0) % MCHC (31.0-37.0) g/dL RDW (11.5-15.5) % Carbon Dioxide 35 H (22-30) mmol/L BUN 28 H (7-17) mg/dL Creatinine 0.34 L (0.52-1.04) mg/dL Glucose 129 H (74-99) mg/dL POC Glucose (mg/dL) 139 H 218 H (75-99) mg/dL Assessment and Plan Assessment: Acute COVID-19 infection with acute COVID-19 bilateral interstitial pneumonia with hypoxic hypercarbic respiratory failure on mechanical vent status post trach and peg tube placement on 10/14/2021.Patient remains mechanical ventilator via trach. Worsening right side pneumothorax status post chest tube placement and thoravent removal on 10/29/2021 Right pneumothorax status post chest tube placement Critical illness myopathy and neuropathy Atrial fibrillation, new onset, currently rate controlled on metoprolol and cardizem Non-sustained ventricular tachycardia, currently sinus Acute left leg deep vein thrombosis Primary hypercoagulable state and factor V deficiency Obesity with a body mass index of 36.0 DVT prophylaxis: on Eliquis No code Plan: This is a pleasant 61 years old female with covert pneumonia, hypoxia, DVT and A. fib. Continue with multiple vitamins and prednisone 60 mg-->10mg taper Patient is tolerating tube feeding. CT surgery is on board. Chest tube due to right pneumothorax is stable [facility]. Labs and medication were reviewed.. Monitor lytes and vitals. DVT and GI prophylaxis. DVT prophylaxis: Eliquis GI Prophylaxis: Ppi Prognosis is extremely guarded Time with Patient: Greater than 30
--- NOTE | 2021-11-18 21:55 | P.PN ---
Subjective Progress Note Date: 11/18/21 This is a 61-year-old female who was recently admitted with acute COVID-19 pneumonia with acute COVID-19 bilateral interstitial pneumonia and also with transaminitis and being closely monitored. Patient remains in the ICU and currently intubated and sedated with an FiO2 of 70% and PEEP is 18. 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 Patient did have a venous Doppler study done recently which showed left leg DVT and patient is maintained on Eliquis will continue. Patient also continues on empiric antibiotics and awaiting for sputum culture finalized. Patient was started on IV cefepime and will continue. Patient is also continued on oral dexamethasone along with vitamin and zinc supplements and will continue. Patient with some mild volume overload and given a dose of IV Lasix push today. 09/29/2021 Patient is seen and evaluated this morning continues to be closely monitored in the ICU and continues to be on mechanical ventilation and sedated. FiO2 was increased at 80% with a PEEP of 18 and oxygen saturations between 87-91%. Patient developing subcutaneous emphysema in the neck and chest wall area and chest x-ray today shows bilateral multifocal and confluent opacification is redemonstrated consistent with COVID-19 infection with a new small left apical pneumothorax estimated under 5% with new pneumomediastinum and recurrent overlying subcutaneous emphysema noted. Patient is white blood count mildly elevated at 16.1 and is continued on oral dexamethasone along with oral eliquis for anticoagulation. Patient continues to be on IV cefepime and blood and sputum cultures are negative thus far. 09/30/2021 Patient is seen today continues to be closely monitored in the ICU with multiple medical consultations following. Patient continues to be mechanically intubated and sedated with continued subcutaneous emphysema noted. Chest xray shows a trace left apical pneumothorax that is minimally smaller 7mm versus 1cm previously, extensive bilateral subcutaneous emphysema persists and diffuse interstitial changes and bilateral patchy opacities persist with slight improvement in aeration in the lower lungs. Per nursing staff corbin was clogged with copious amounts of white discharge and will add diflucan and corbin catheter has been changed and draining adequately. Patient continues on IV cefepime. Patient tolerating tube feeds and will continue. 10/01/2021 Patient is seen and evaluated in follow up this morning and continues to be closely monitored. Multiple medical consultations following and patient con tinues to be on mechanical vent and sedated. Patient continues on IV Cefepime and diflucan. Patient chest xray today shows stable extensive subcutaneous emphysema, no pneumothorax, and patchy bilateral lung infiltrates remain present. INflammatory markers trending down. 10/04/2021 Patient is seen in follow-up continues to be closely monitored in the ICU. Patient remains on mechanical vent with an FI02 of 65% and peep is 18. Weaning trials being attempted with pulmonary interpreter and translator following closely. Patient continues with extensive subq emphysema noted on exam. 10/05/2021 Patient Is seen and evaluated this morning with continued attempts at weaning and continues on mechanical vent and intubated with pulmonary interpreter and translator following closely. Patient remains on Eliquis which will be held as surgery Dr. Nelson was consulted for possible PEG and trach tube placement for unsuccessful attempts at weaning from ventilation and prolonged hospitalization on mechanical vent. Chest x-ray today shows recurrent tiny left apical pneumothorax estimated under 5% with worsening overlying subcutaneous emphysema and again pneumomediastinum redemonstrated with multifocal confluent opacification's redemonstrated consistent with COVID-19 infection and/or arts are redemonstrated with no significant change from one day previously. Patient continues on FiO2 of 65% and PEEP was weaned down to 14 today. IV cefepime discontinued. 10/06/2021 Patient is seen in follow-up this morning per nursing staff patient had multiple runs of ectopy an irregular heart rate and rhythms with PVCs and cardiology consulted. Patient was placed on lidocaine drip and was originally on eliquis is currently on hold for possible PEG and trach placement with general surgery following. Patient had difficulty maintaining oxygen saturations and FiO2 was increased to 100% and PEEP continues at 14. Multiple medical consultations following and patient continues on oral steroids along with vitamin and zinc supplements along with fluconazole. Patient being started on IV Lasix daily and recommend close monitoring of electrolytes and kidney functions. 10/07/2021 Patient is seen in follow-up this morning continues to be monitored closely in the ICU with multiple medical consultations following. Patient is currently on mechanical vent with an FiO2 of 80% and PEEP is 16. General surgery also following for possible PEG and trach placement and will need to discuss with surgery about when this will occur. Patient remains on fluconazole. She also continues on vitamin and zinc supplements along with oral dexamethasone, clevidipine, Nimbex, IV Lasix, fentanyl and propofol and is off norepinephrine. Chest x-ray shows stable bilateral lung infiltrates. 10/08/2021 Patient is seen this morning continues to be on mechanical vent with an FiO2 of 85% and PEEP of 16. Patient continues with extensive subcutaneous emphysema and plans are for possible PEG and trach placement although on hold until possibly next week once more stable. Patient continues on Cleviprex along with fentanyl and propofol and is receiving IV Lasix daily. Patient also continues on lidocaine drip which is currently on hold and cardiology is following closely. Anticoagulant was resumed for now again until more stable to undergo PEG and trach placement. Chest x-ray today shows persistent bilateral multifocal and confluent increased opacification is with persistent overlying subcutaneous emphysema noted in pneumomediastinum is again redemonstrated. 10/09/2021 Patient evaluated today in ICU mechanical ventilation with FiO2 of 80%. Chest x-ray this morning shows similar multifocal airspace opacities and stable support lines and tubes. Similar subcutaneous emphysema scattered throughout the visualized thorax. PEG and trach plan for next week once more stable. Current meds include Cleviprex, Nimbex, fentanyl, propofol. She is receiving IV fluconazole, as well as IV Lasix. Levophed and Lidocaine gtt;s are on hold. Positive bowel sounds. Current vitals afebrile, heart rate 71, blood pressure 135/60 and oxygen saturation is 93%. Respirations 30. Labs today, white count 17, hemoglobin 11.6, sodium 139, potassium 3.8, BUN 34, creatinine 0.91, CO2 33, calcium 8.7, ALT 54, albumin 2.8 with blood sugars in the 100s. 10/10/2021 Patient evaluated today in the ICU on the mechanical VENT with fio2 of 100%. Po sitive bowel movement today, Stage 2 pressure ulcer on coccyx per RN, optifoam ordered. Per RN they were unable to patient as she was desaturating. They're unable to wean Fi02 currently as she does desaturate with any time of movement. She was lying more on her right side during evaluation and pulse ox was dropping into high 80s she was being repositioned by nurses. Plan is to PEG/TRACH patient tomorrow. Last family update was 4 days ago. We will call and discuss case today. Patient is afebrile, heart rate 84, respirations 30, blood pressure 141/55, 92% oxygen saturation on 100% Fi02, which was increased today up from 70 Fi02%. Labs today show WBC of 15.6, hgbl 10.7, sodium 138, potassium 3.9, chloride 100, CO2 37, glucose 117, calcium 8.2. Chest xray today shows pneumonia, ARDS. 10/11/2021 Patient is seen and evaluated in follow-up this morning continues to be closely monitored in the ICU and patient is continued on FiO2 of 90% and PEEP is 16 with multiple medical consultations following. Chest x-ray today shows new left- sided pneumothorax estimated 10-20% with overlying subcutaneous emphysema and pneumomediastinum redemonstrated with bilateral multifocal and confluent opac ification's redemonstrated consistent with COVID-19 infection and/or arts and no significant change from one day previous. Patient is status post left chest tube insertion with pulmonary interpreter and translator. Cardiology following and patient is off lidocaine drip and maintaining sinus rhythm. Patient also continues on vitamin and zinc supplements along with oral dexamethasone and patient continues on IV Lasix 40 mg daily. Patient also continues off norepinephrine and is currently maintained on IV cefepime along with fluconazole. General surgery following as well and plan is for peg and trach placement in the am 10/12/2021 Patient is seen in the ICU this morning continues to be closely monitored by multiple medical consultations. Patient was scheduled for PEG and trach placement with general surgery Dr. Nelson today although canceled as patient became hypotensive requiring Levophed along with acute blood loss anemia and hemoglobin dropped to 6.5 this morning requiring 1 unit of PRBC. Patient continues with left chest tube with pneumothorax and chest x-ray today shows the jahaira is difficult to clearly identify on the present exam and the ET tube may be approximately 1 cm from the jahaira and there are bilateral chest tubes present with continued diffuse interstitial opacification is and more focal bibasilar opacification is with subcutaneous emphysema persists along the upper chest with slight improvement on the left. No appreciable pneumothorax noted. Patient having worsening right pleural effusion last night and received a right- sided chest tube with pulmonary interpreter and translator. FiO2 is 90% and PEEP of 16. Again overall prognosis remains extremely poor and guarded. 10/13/2021 Patient is seen in follow-up this morning in the ICU with multiple medical consultations following. Lengthy discussion was had with pulmonary interpreter and translator and family members and would like to continue with full CODE STATUS and plan is in place for PEG tube and tracheostomy placement tomorrow. Anticoagulant on hold and Dr. Nelson plans for surgery tomorrow. Patient continues on oral dexamethasone along with IV cefepime, vitamin and zinc supplements. Patient also continues on Cleviprex and Nimbex. Patient also continues on fentanyl and propofol and will continue. Chest x-ray today shows stable portable chest with bilateral chest tubes without sizable pneumothorax identified and continued subcutaneous air persists with persistent interstitial changes bilaterally with airspace disease in the bilateral lung bases that are unchanged. FiO2 is 60% and PEEP of 16. 10/14/2021 Patient is seen and evaluated in the ICU being closely monitored with multiple medical consultations following. at the bedside today and had detailed discussion with overall prognosis. Plan is to proceed with PEG tube and tracheostomy placement with surgery Dr. Nelson today and anticoagulant continues to be on hold for this procedure. Patient continues on mechanical ventilation with an FiO2 of 70% and PEEP of 16. Chest x-ray today shows improving infiltrate with bibasilar residual and bilateral chest tubes remain present with no pneumothorax evident on either side and again subcutaneous emphysema is noted. 10/15/2021 Patient is seen in the ICU being closely monitored. Patient is status post PEG and trach placement yesterday. Chest x-ray today shows bilateral patchy lung infiltrates greater at the right base with diffuse increased lung markings and bilateral chest tubes remain present and subcutaneous emphysema on the right is diminished. Patient continues with an FI02 of 60 and peep is 16. To resume tube feeds per surgery. Patient continues on norepinephrine and sedation. Patient is receiving IV lasix daily. 10/16/2021 Patient is currently in the MICU and remains on ventilator. Status post tracheostomy and PEG tube placement on 10/14/2021. Patient is sedated and paralyzed. Also on Cleviprex. Chest x-ray showed no acute cardiopulmonary disease with no interval changes. Laboratory data showed WBC 16.9 hemoglobin 8.9 and platelets 278 BUN 19 and creatinine 0.5 and calcium 8.1 patient is being continued on dexamethasone 6 mg daily, Lasix 40 mg IV daily and multivitamins and anticoagulation with Eliquis. Pulmonary and general surgery is on board. 10/17/2021 Patient is in the MICU. Remains on the current ventilator via tracheostomy. Status post tracheostomy and PEG tube placement on 10/14/2021. Sedated and paralyzed and also on fentanyl drip. Currently on assist control with tidal volume of 420, FiO2 80% and PEEP of 16. Respiratory of 30. Chest x-ray showed no interval change in acute cardiopulmonary disease Laboratory data showed WBC 15.8 hemoglobin 8.2 and platelets 271 Sodium 136 potassium 3.1 chloride 100 bicarb is 32 BUN 21 creatinine 0.48 and albumin 2.3 Patient is being continued on Lasix IV, dexamethasone and anticoagulation with Eliquis. 10/18/2021 Patient is seen in follow-up and continues in the ICU with multiple medical consultations following. Patient continues on mechanical vent with an FI02 of 70% and peep is 16. Chest xray shows overall stable exam with interstitial changes and bilateral patchy infiltrates with right greater than left and greater at the bases with bilateral chest tubes noted. no appreciable pneumothorax. Patient continues on propofol and fentanyl along with cleviprex and rocuronium. Eliquis has been resumed. Potassium is 3.3 and will be replaced per protocol. Patient also continues to receive IV lasix daily. 10/19/2021 Patient is seen this morning and continues to be in the ICU with multiple medical consultations following. Patient continues with bilateral chest tubes and remains on mechanical ventilation with an FiO2 of 65% and PEEP is 16. Chest x-ray today shows Bilateral multifocal and confluent opacification greatest in the lower lungs consistent with COVID-19 infection and/or ARDS all redemonst rated with no significant change from one day earlier and continued bilateral chest tubes without pneumothorax redemonstrated. 10/20/2021 Patient continues to be in the ICU under close critical monitoring with multiple medical consultations following. Patient continues with bilateral chest tubes although per nursing staff may possibly discontinued today. Chest x-ray today shows stable portable chest with no change in scattered mixed interstitial and alveolar infiltrates. Patient remains on mechanical ventilation via tracheostomy with an FiO2 of 55% and PEEP is 15. Patient continues on Cleviprex along with rocuronium and sedation. 10/21/2021 Patient continues in the MICU being closely monitored. Chest tubes were removed today and chest xray stable with interstitial changes and basilar ground glass, that is similar to previous with slight improvement. Patient continues on mechanical vent with an FI02 of 70% and peep is 14. Patient remains sedated and per nursing staff working on weaning paralytics. Patient continued on rocuronium. Patient is tolerating tube feeds and also continues on IV lasix daily with generalized edema noted throughout. 10/22/2021 Patient is currently MICU. Patient was taken off paralytic and chest tubes yesterday. Continued on pressure support with PEEP of 13. 88 this morning patient again desaturated. Patient became hypotensive and patient was started on norepinephrine. Chest x-ray showed large pneumothorax on the right. Right chest tube was r einserted. Patient is on pressure control. Remains sedated and mechanically ventilated. Laboratory data showed WBC 13.7 hemoglobin 7.7 and platelets 314 Sodium 140 potassium 3.0 chloride 102 bicarb is 37 BUN 19 and creatinine 0.44 and calcium 8.1 Patient is being continued dexamethasone multivitamins and anticoagulation with Eliquis. Patient is also on IV Lasix. Potassium will be replaced. 10/23/2021 Patient is currently MICU. Patient is on mechanical ventilator via trach tube. Patient developed right-sided tension pneumothorax. Again patient had issues with pneumothorax around 10 PM yesterday. Chest tube has to be replaced. Patient is also requiring pressor support. Off pressors this morning. On pressure support. PEEP of 13 and FiO2 100%. Laboratory data showed WBC 13.7 hemoglobin 7.7 and platelets 314 Sodium 140 potassium 3.0 chloride 102 bicarb is 37 BUN 19 and creatinine 0.44 and calcium 8.1 cultures have been negative. Patient is being current on dexamethasone, Eliquis and also IV Lasix 40 mg daily. 10/24/2021 Patient is currently in the MICU. Currently on mechanical ventilator via tracheal tube. Continue propofol and fentanyl. Remains pressure support with PEEP of 13 FiO2 reduced to 70%. Chest x-ray showed bilateral multifocal and confluent opacities consistent with COVID-19 infection and ARDS are redemonstrated and stable. Right-sided chest tube with small apical pneumothorax estimated 10 to 15% improved from 1 day earlier. Pneumo mediastinum noted. Laboratory data showed WBC 14.2 hemoglobin 7.1 and platelets 317 Sodium 140 potassium 3.2 chloride 104 bicarb is 38 BUN 20 and creatinine 0.46 and calcium 7.8. Patient is being continued on dexamethasone, Eliquis and also on IV Lasix. Currently on multivitamins. 11/13/2021 Patient is currently in the MICU. Awake alert and opening her eyes with verbal stimuli. Continues to be mechanical ventilator via tracheostomy tube. And also right sided chest tube in place.. Chest x-ray showed there is not significant interval change. Correlate for pneumonia. Stable right pneumothorax. Patient is being Precedex due to restlessness Anxiety. Patient is IV Lasix 40 mg twice daily. Tolerating tube feedings. Patient has been afebrile. Currently being continued anticoagulation with El iquis and prednisone 10 mg daily which is being tapered down. Neurology and pulmonary is on board. 11/14/2021 Patient is in the MICU. Awake alert but he is extremely weak. Patient was also Precedex drip. Otherwise remains on mechanical ventilator with assist control tidal volume of 400 and respiratory 30 and FiO2 50% PEEP of 10. Patient does chest tube due to right-sided pneumothorax. Chest x-ray showed stable right- sided pneumothorax. Patient is also receiving IV Lasix 40 mg every 12. Also on long-term anticoagulation with Eliquis. Patient is on prednisone which is being tapered down. Patient has been afebrile. Tolerating tube feedings. No diarrhea.. Laboratory showed WBC 14.6 hemoglobin 8.8 and platelets 330 sodium 137 potassium potassium 3.6 chloride 104 bicarb is 31 BUN 30 and creatinine 0.27 and calcium 8.2 11/15/2021 Patient remains in the MICU. Currently mechanical ventilator via tracheostomy tube. Remains on assist control with tidal volume 400 and FiO2 50% and PEEP of 8. Patient tolerated pressure support briefly arrives very anxious and is being continued on Precedex drip. Also on BuSpar for chronic anxiety. Patient is being continued IV Lasix every 12 and also on prednisone tapering course. Remains on long-term anticoagulation with Eliquis. Blood sugar slightly elevated and was started Levemir 5 units at bedtime along with insulin sliding scale. Laboratory reviewed showed WBC 12.5 hemoglobin 8.4 and platelets 299 sodium 137 potassium 3.4 chloride 99 bicarb 35 BUN 36 and creatinine 0.32 blood sugar is 160 3 in the morning and 235 before lunch. Calcium 8.2 11/16/2021 Patient is awake alert and he is being continued on Precedex drip due to severe anxiety and on BuSpar due to chronic anxiety. Remains on mechanical ventilator via tracheostomy tube. FiO2 50% and tidal volume 400 and PEEP of 5 today. Levemir dose increased to 10 units at bedtime along with insulin sliding scale. Patient is on prednisone taper increase on tapering course at 10 mg daily. Chest x-ray showed small right apical pneumothorax estimated near 10% despite chest tube placement redemonstrated and stable. Patient has been afebrile. Patient has been extremely weak otherwise. Unable to move bilateral lower extremities. Laboratory data showed WBC 11.9 hemoglobin 8.6 and platelets 301 sodium 137 potassium 3.5 chloride 100 bicarb is 38 BUN 13 creatinine 0.34 and blood sugar is 173 and calcium 8.3 11/17/2021 Patient currently in the MICU. On mechanical letter assist-control next tidal volume 400, FiO2 40% and PEEP of 5. Awake alert but extremely weak. Able to respond verbally. Remains Precedex drip. Chest x-ray showed there is small right apical pneumothorax decreased in size from prior study. Diffuse reticulonodular infiltrates persist unchanged. Righ t-sided chest tube is in place. Laboratory data showed WBC 11.1 hemoglobin 8.6 and platelet 277 BUN 28 and creatinine 0.34 and calcium 8.4. Patient is being continued on Eliquis multivitamin supplementation and Lasix 40 mg IV daily. Blood sugar is controlled. Currently on 10 mg daily of prednisone. 11/18/2021 Patient is in the MICU. Currently on mechanical ventilator via tracheostomy tube. Continue Precedex drip due to severe anxiety. Patient also profoundly weak. Able to open her eyes with verbal stimuli and tries to communicate. Patient is also being continued right-sided chest tube due to apical pneumothorax. Chest x-ray showed no significant interval change. Correlate for pneumonia, ARDS, stable minimal pneumothorax. Laboratory data showed WBC 11.8 hemoglobin 8.5 and platelets 289 BUN 30 and creatinine 0.26 and blood sugar is 123 and calcium 8.4 Patient is being current on Lasix 40 mg daily. Patient is Eliquis and tapering course of prednisone 10 mg daily. Otherwise hemodynamically stable. Neurology and pulmonary is on board. Current medications reviewed. Objective - Vital Signs Vital signs: Vital Signs Temp 98.2 F 11/18/21 08:00 Pulse 98 11/18/21 14:00 Resp 25 H 11/18/21 14:00 BP 88/68 11/18/21 14:00 Pulse Ox 97 11/18/21 14:00 Intake & Output 11/17/21 11/18/21 11/18/21 18:59 06:59 18:59 Intake Total 8116.664 8824.053 768.301 Output Total 9107 008 9636 Balance -676.704 722.053 -891.699 Weight 91.1 kg 88.6 kg Intake: IV 120 120 30 Sodium Chloride 0.9% 1, 120 120 30 000 ml @ 10 mls/hr IV . Q24H [facility] Rx#:[id number] Intake, IV Titration 41.296 195.053 28.301 Amount Dexmedetomidine/0.9% NaCl 41.296 195.053 28.301 (Pmx) 400 mcg In Empty Bag 1 bag @ 0.2 MCG/KG/HR 4.665 mls/hr IV .[id number] [facility] Rx#:[id number] Tube Feeding 812 812 580 Other 210 90 130 Output: Chest Tube Drainage 0 5 Chest Tube Right Upper 0 5 Anterior Chest Urine 3820 598 0379 Other: Voiding Method Indwelling Catheter Indwelling Catheter Indwelling Catheter # Voids 1 # Bowel Movements 1 2 1 ABP, PAP, CO, CI - Last Documented Arterial Blood Pressure 120/111 - Exam - Exam -GENERAL: The patient is on vent via tracheostomy. Patient generally weak HEENT: Pupils are round and equally reacting to light. EOMI. No scleral icterus. No conjunctival pallor. Normocephalic, atraumatic. No pharyngeal erythema. No thyromegaly. CARDIOVASCULAR: S1 and S2 present. No murmurs, rubs, or gallops. -PULMONARY: Bilateral decreased breath sounds with bilateral crepitation ABDOMEN: Soft, nontender, nondistended, normoactive bowel sounds. No palpable organomegaly. MUSCULOSKELETAL: No joint swelling or deformity. EXTREMITIES: No cyanosis, clubbing, or pedal edema. -NEUROLOGICAL: Gross neurological examination did not reveal any focal deficits. General awake, more on the left side SKIN: No rashes. no petechiae. - Labs CBC & Chem 7: 11/18/21 05:16 11/18/21 05:16 Labs: Abnormal Lab Results - Last 24 Hours (Table) 11/17/21 11/17/21 11/18/21 Range/Units 18:31 23:21 05:16 WBC 11.8 H (3.8-10.6) k/uL RBC 3.13 L (3.80-5.40) m/uL Hgb 8.5 L (11.4-16.0) gm/dL Hct 27.8 L (34.0-46.0) % MCHC 30.5 L (31.0-37.0) g/dL RDW 16.2 H (11.5-15.5) % Carbon Dioxide (22-30) mmol/L BUN (7-17) mg/dL Creatinine (0.52-1.04) mg/dL Glucose (74-99) mg/dL POC Glucose (mg/dL) 155 H 153 H (75-99) mg/dL 11/18/21 11/18/21 11/18/21 Range/Units 05:16 05:17 11:40 WBC (3.8-10.6) k/uL RBC (3.80-5.40) m/uL Hgb (11.4-16.0) gm/dL Hct (34.0-46.0) % MCHC (31.0-37.0) g/dL RDW (11.5-15.5) % Carbon Dioxide 32 H (22-30) mmol/L BUN 30 H (7-17) mg/dL Creatinine 0.26 L (0.52-1.04) mg/dL Glucose 123 H (74-99) mg/dL POC Glucose (mg/dL) 131 H 227 H (75-99) mg/dL Assessment and Plan Assessment: Acute COVID-19 infection with acute COVID-19 bilateral interstitial pneumonia with hypoxic hypercarbic respiratory failure on mechanical vent status post trach and peg tube placement on 10/14/2021.Patient remains mechanical ventilator via trach. Worsening right side pneumothorax status post chest tube placement and thoravent removal on 10/29/2021 Right pneumothorax status post chest tube placement Critical illness myopathy and neuropathy Atrial fibrillation, new onset, currently rate controlled on metoprolol and cardizem Non-sustained ventricular tachycardia, currently sinus Acute left leg deep vein thrombosis Primary hypercoagulable state and factor V deficiency Obesity with a body mass index of 36.0 DVT prophylaxis: on ScreenTag No code Plan: This is a pleasant 61 years old female with covert pneumonia, hypoxia, DVT and A. fib. Continue with multiple vitamins and prednisone 60 mg-->10mg taper Patient is tolerating tube feeding. CT surgery is on board. Chest tube due to right pneumothorax is stable Continue with the [facility] cardiology and pulmonary/critical care team on the case. Labs and medication were reviewed.. Monitor lytes and vitals. DVT and GI prophylaxis. DVT prophylaxis: [facility] GI Prophylaxis: Ppi Prognosis is extremely guarded Time with Patient: Greater than 30
[2021-11-18 22:57] LABS: Glucose,Whole Blood 133 mg/dL (75-99)
[2021-11-19] MEDS: LORazepam 2 MG/ML INJ IV PRN ×2 (03:42→09:49)
[2021-11-19] MEDS: HYDROmorphone 1 MG/ML 1 ML SYRINGE IVP PRN ×6 (04:13→23:53)
[2021-11-19 06:17] LABS: Anisocytosis Slight; Basophils # (A) 0.1 k/uL (0-0.2); Basophils % (A) 1 %; Eosinophils # (A) 0.3 k/uL (0-0.7); Eosinophils % (A) 2 %; HGB 9.1 gm/dL (11.4-16.0); Hypochromasia Marked; Lymphocytes # (A) 4.7 k/uL (1.0-4.8); Lymphocytes % (A) 26 %; MCH 26.2 pg (25.0-35.0); MCHC 29.3 g/dL (31.0-37.0); MCV 89.6 fL (80.0-100.0); Mean Platelet Volume 9.1; Monocytes % (A) 5 %; Neutrophils # (A) 11.8 k/uL (1.3-7.7); Neutrophils % (A) 65 %; Platelet Count 310 k/uL (150-450); RBC 3.46 m/uL (3.80-5.40); RDW 16.3 % (11.5-15.5); WBC 18.2 k/uL (3.8-10.6)
[2021-11-19 06:30] LABS: African American GFR (CKD) >90 (>60 ml/min/1.73 sqM); Anion Gap 3 mmol/L; Blood Urea Nitrogen 32 mg/dL (7-17); Calcium 8.7 mg/dL (8.4-10.2); Carbon Dioxide 32 mmol/L (22-30); Chloride 100 mmol/L (98-107); Glucose 159 mg/dL (74-99); Non-African American GFR(CKD) >90 (>60 ml/min/1.73 sqM); Potassium 3.8 mmol/L (3.5-5.1); Sodium 135 mmol/L (137-145)
[2021-11-19 06:34] LABS: Glucose,Whole Blood 173 mg/dL (75-99)
[2021-11-19] MEDS: INSULIN ASPART (NovoLOG) 100 UNIT/ML VIAL SQ SCH ×4 (06:42→23:12)
--- NOTE | 2021-11-19 07:18 | XR ---
EXAMINATION TYPE: XR chest 1V portable DATE OF EXAM: 11/19/2021 COMPARISON: 11/18/2021 HISTORY: SOB, Follow Up FINDINGS: Right-sided chest tube with the persistent approximately 10% right apical pneumothorax. Small amount of subcutaneous emphysema noted. Persistent diffuse reticulonodular infiltrates throughout both lung fluid patterson. Tracheostomy tube i n place. PICC line noted. Stable appearance of the cardio-mediastinal structures at this time. Pleural effusion unchanged. IMPRESSION: 1. Stable portable chest. Clinical correlation and follow up until resolution is recommended.
[2021-11-19] MEDS: busPIRone HCl 5 MG TAB PO SCH ×2 (09:32→21:12)
[2021-11-19] MEDS: FOLIC ACID 1 MG TAB PO SCH (09:32)
[2021-11-19] MEDS: ASCORBIC ACID 500 MG TAB PO SCH ×2 (09:32→21:12)
[2021-11-19] MEDS: METOPROLOL TARTRATE 50 MG TAB PO SCH ×2 (09:32→21:12)
[2021-11-19] MEDS: APIXABAN 5 MG TAB PO SCH ×2 (09:32→21:11)
[2021-11-19] MEDS: QUEtiapine 50 MG TAB PO SCH ×2 (09:32→21:13)
[2021-11-19] MEDS: CYANOCOBALAMIN 500 MCG TAB PO SCH (09:33)
[2021-11-19] MEDS: predniSONE 10 MG TAB PO SCH (09:33)
[2021-11-19] MEDS: PANTOPRAZOLE 40 MG/10 ML VIAL IV SCH (09:33)
[2021-11-19] MEDS: FUROSEMIDE 10 MG/ML 4 ML VIAL IV SCH (09:33)
[2021-11-19] MEDS: POTASSIUM BICARBONATE/CIT AC 20 MEQ TABLET.EFF PO SCH ×3 (09:33→21:11)
[2021-11-19] MEDS: PYRIDOXINE 50 MG TAB PO SCH (09:33)
[2021-11-19] MEDS: ZINC SULFATE 220 MG CAP PO SCH (09:33)
[2021-11-19 11:46] LABS: Glucose,Whole Blood 201 mg/dL (75-99)
--- NOTE | 2021-11-19 12:44 | P.PN ---
Subjective Progress Note Date: 11/19/21 11/19/2021, I'm seeing the patient for a follow-up. This morning, the patient is off Precedex and she is calm and comfortable. She is following commands and answering questions. She is showing minimal amount of motor function: On a daily basis although this is minimal if any. She remains very comfortable on a mechanical ventilator. The chest x-ray shows further decrease in the right apical pneumothorax. There is improvement daily which is intermittent at this point in time. Patient remains on a mechanical ventilator. She is an assist- control mode at a tidal volume of 400, FiO2 of 40%, PEEP of 3 and the respiratory rate of 22. No blood gas for now. She was on IV Lasix and the patient has been adequately diuresed with improvement in lower extremity edema. Overall fluid balance is +2 34 mL. The patient is receiving vital high protein at the rate of 56 mL an hour. No other complaints otherwise for now. She is tolerating her diet. No nausea. No vomiting. No agitation. No restlessness. Rapid shallow breathing index remains low and the patient continues to be not ready for weaning. She is wearing medical both in lower extremities bilaterally. Chest tubes in a good location. She is on prednisone. She is also off Precedex. Objective - Vital Signs Vital signs: Vital Signs Temp 98.6 F 11/19/21 08:00 Pulse 112 H 11/19/21 10:00 Resp 37 H 11/19/21 10:00 BP 107/56 11/19/21 10:00 Pulse Ox 95 11/19/21 10:00 Intake & Output 11/18/21 11/19/21 11/19/21 18:59 06:59 18:59 Intake Total 1261.052 838 458 Output Total 2370 595 525 Balance -1108.948 243 -67 Weight 85.5 kg 85.5 kg Intake: IV 130 110 50 Sodium Chloride 0.9% 1, 130 110 50 000 ml @ 10 mls/hr IV . Q24H [facility]RAHAM Rx#:[id number] Intake, IV Titration 41.052 Amount Dexmedetomidine/0.9% NaCl 41.052 (Pmx) 400 mcg In Empty Bag 1 bag @ 0.2 MCG/KG/HR 4.665 mls/hr IV .[id number] [facility] Rx#:[id number] Tube Feeding 870 638 348 Other 220 90 60 Output: Chest Tube Drainage 10 10 Chest Tube Right Upper 10 10 Anterior Chest Urine 2360 585 525 Other: Voiding Method Indwelling Catheter Indwelling Catheter # Voids 1 # Bowel Movements 1 ABP, PAP, CO, CI - Last Documented Arterial Blood Pressure 120/111 - Exam GENERAL EXAM: Awake and follows simple command, trached to the ventilator, on assist control mode of ventilation with a rate of22, tidal volume 400, FiO2 of 40% with a PEEP of 3 HEAD: Normocephalic/atraumatic. EYES: Normal reaction of pupils, equal size. Conjunctiva pink, sclera white. NOSE: Clear with pink turbinates. THROAT: No erythema or exudates. NECK: No masses, no JVD, no thyroid enlargement, no adenopathy. CHEST: No chest wall deformity. Symmetrical expansion. 1 right-sided chest tubes in place, there is continous air leak from right-sided chest tube LUNGS: Equal air entry with no crackles, wheeze, rhonchi or dullness. CVS: Irregular rate and rhythm, normal S1 and S2, no gallops, no murmurs, no rubs ABDOMEN: Soft, nontender. No hepatosplenomegaly, normal bowel sounds, no guarding or rigidity. PEG tube in place with tube feedings infusing with vital HP EXTREMITIES: No clubbing, significant gen edema, no cyanosis, 2+ pulses and upper and lower extremities. MUSCULOSKELETAL: Muscle strength and tone extremely weak SPINE: No scoliosis or deformity SKIN: No rashes CENTRAL NERVOUS SYSTEM:Awke and alert, trached to the ventilator, Follows simple command. No focal deficits, tone is normal in all 4 extremities. Generalized motor weakness in all 4 extremities and the patient has difficulties with movement and motor functions. - Labs CBC & Chem 7: 11/19/21 06:01 11/19/21 06:01 Labs: Abnormal Lab Results - Last 24 Hours (Table) 11/18/21 11/18/21 11/19/21 Range/Units 17:32 22:56 06:01 WBC 18.2 H (3.8-10.6) k/uL RBC 3.46 L (3.80-5.40) m/uL Hgb 9.1 L (11.4-16.0) gm/dL Hct 31.0 L (34.0-46.0) % MCHC 29.3 L (31.0-37.0) g/dL RDW 16.3 H (11.5-15.5) % Neutrophils # 11.8 H (1.3-7.7) k/uL Sodium (137-145) mmol/L Carbon Dioxide (22-30) mmol/L BUN (7-17) mg/dL Creatinine (0.52-1.04) mg/dL Glucose (74-99) mg/dL POC Glucose (mg/dL) 132 H 133 H (75-99) mg/dL 11/19/21 11/19/21 11/19/21 Range/Units 06:01 06:32 11:44 WBC (3.8-10.6) k/uL RBC (3.80-5.40) m/uL Hgb (11.4-16.0) gm/dL Hct (34.0-46.0) % MCHC (31.0-37.0) g/dL RDW (11.5-15.5) % Neutrophils # (1.3-7.7) k/uL Sodium 135 L (137-145) mmol/L Carbon Dioxide 32 H (22-30) mmol/L BUN 32 H (7-17) mg/dL Creatinine 0.28 L (0.52-1.04) mg/dL Glucose 159 H (74-99) mg/dL POC Glucose (mg/dL) 173 H 201 H (75-99) mg/dL Assessment and Plan Plan: #1. Acute hypoxic respiratory failure related to COVID-19 pneumonia complicated with ARDS. Patient was intubated and on 09/25/2021, status post tracheostomy and PEG tube placement on 10/14/2021. The patient remains ventilator dependen weaning parameters remain low. Nevertheless, on a positive note, the air leak is intermittent and minimal at this point in time. The patient's has further diminution of the right apical pneumothorax. There is diffuse bilateral pulmonary infiltrates as stated earlier. The patient's chest x-ray shows a very tiny right apical pneumothorax. The air leak is intermittent and the PEEP level is down to 3 with a tidal volume of 400 and FiO2 of 40% with a rate of 22. Wean ing parameters remain low with an elevated appreciable breathing index. #2. Acute COVID 19 related pneumonia, still on prednisone which is a part of the burst taper. The patient is currently on prednisone 10 mg by mouth daily. #3. Generalized motor weakness in all 4 extremities related to critical illness polyneuropathy and myopathy, extensive edema in all 4 extremities, currently on IV Lasix. The patient achieve a negative fluid balance and the edema is improved in all 4 extremities. The motor function has been unchanged compared to yesterday. #4. Bilateral pneumothoraces requiring bilateral chest tube placements, with subsequent removal and recurrence of right-sided pneumothorax, requiring placement of another chest tube on the right, and subsequent Thoravent placement on 10/25/2021, and subsequent removal of the Thoravent on 10/29/2021 and placement of another right-sided chest tube on 10/29/2021. The patient is a intermittent air leak in the right sided chest tube and there is a persistent pneumothorax on the right and there is a minor motion the right apical pneumothorax on today's chest x-ray #5. Acute deep vein thrombosis on Eliquis, no signs of bleeding #6. New-onset A. fib on 10/31/2021, currently in sinus, patient was on Cardizem drip, now on oral Cardizem, remains on Eliquis, currently in sinus rhythm #7. Subcutaneous emphysema resolved #8. Prior history of DVT #9. Increased anxiety #10. Mildly elevated liver enzymes secondary to COVID-19, recovered #11. Nonsustained ventricular tachycardia resolved #12. History of fibromyalgia #13 chronic anemia, multifactorial, expected outcome of prolonged ICU stay #14 critical illness polyneuropathy and myopathy with profound weakness in all 4 extremities. Plan Continue ventilator support Weaning parameters remain low, not ready for any weaning exercises as the patient continues to have significant motor weakness in all 4 extremities Discontinue prednisone Discontinue Lasix Continue Seroquel Continue BuSpar Continue Eliquis for long-term anticoagulation Continued IV Protonix Continue vital high protein for enteral feeding and nutritional support Continue with the Physical therapy for passive range of motion We'll check weaning parameters, these are being checked on a daily basis. The patient rapid shallow breathing index. She is not ready for any weaning at this point in time. This will be a prolonged wean as the patient has significant amount of motor weakness in all 4 extremities. Condition remains critical and will continue to follow make further accommodation based on her progress. This critically care evaluation was done and more than 30 minutes. Time with Patient: Greater than 30
--- NOTE | 2021-11-19 13:37 | P.PN ---
Subjective Progress Note Date: 11/19/21 Principal diagnosis: Acute hypoxemic respiratory failure secondary to coronavirus associated pneumonia. Mild transaminitis secondary to coronavirus infection. Primary hypercoagulable state in the form of Leiden factor deficiency/factor V deficiency 61-year-old female, with history of DVT/clotting disorder-factor V or Leiden factor deficiency , fibromyalgia, arthritis who presents to the emergency department complaining of difficulty breathing since [place]. Patient states it got progressively worse. Patient states she typically gets bronchitis 3 times here in the past which she thinks this. EMS stated her pulse ox on room air was in the 70s. They put her on a nonrebreather and is still only came up into the 80s. Patient denies chest pain difficulty breathing shortest breath per patient states she did not get COVID vaccine. Patient states she has a blood clotting disorder. Patient is on Coumadin. Patient denies any abdominal pain patient denies nausea vomiting diarrhea. Patient denies headache patient denies any numbness or weakness. Patient denies any syncopal episode. Initially, on room air, her saturations were in the 70s, and on a nonrebreather, only got up into the mid 80s. In addition to the primary hypercoagulable state, she has a history of DVT, fibromyalgia, pneumonia, arthritis, and degenerative disc disease. She is a lifelong nonsmoker. She is getting saline at 50 mL an hour currently. White count 12.1, with a normal hemoglobin, hematocrit, and platelet count. PTT 24.2 INR 2.5, and d-dimer was 32.13. Sodium 1:30, potassium 3.1, chlorides 106, CO2 20, anion gap 12, BUN 47, and creatinine 1.5. Lactic acid was 1.5. AST was 95 with an ALT of 60. Pro- calcitonin level was 0.52. N-terminal proBNP is 259. Chest x-ray reveals diffuse bilateral infiltrates. CT angiogram was negative for pulmonary embolism, but did show diffuse infiltrates consistent with coronavirus pneumonia. 09/25/2021 Patient has been evaluated by pulmonary service; continue to decline on BiPAP and is recommended to be transferred to ICU; plan is for possible intubation and mechanical ventilation if patient continues to deteriorate CT angiogram was negative for pulmonary embolism. White count 17.1, hemoglobin 11.9, hematocrit 37.5, platelet count 390,000. PTT is 33.3 INR is 3.5. Blood g ases done on 100% show pO2 of only 49, pCO2 32, and a pH is 7.42. Sodium is 142, potassium 3.7, chlorides 113, CO2 21, anion gap 8, BUN 35, with a creatinine of 1.01. 09/26/2021 Patient is seen and evaluated in ICU; remains on the ventilator. Patient was intubated after transferred to ICU yesterday Arterial blood gases show pO2 of 82, pCO2 46, and a pH is 7.27. Chest x-ray shows a properly placed endotracheal tube, and diffuse bilateral infiltrates, which are essentially unchanged. White count 14.4, hemoglobin 10.5, hematocrit 32.4, and platelet count 250,000. PTT 34.5 with an INR 3.6. Sodium 143, potassium 4, chlorides 118, CO2 22, anion gap 3, BUN 27, and creatinine 0.95. LDH is 930. C-reactive protein is 16.2. CT angiogram was negative for pulmonary embolism. 11/19/2021; patient is seen and evaluated for follow-up in ICU and discussed with nursing staff. This morning, the patient is off Precedex; following commands and an swering questions. The chest x-ray shows further decrease in the right apical pneumothorax. There is improvement daily which is intermittent at this point in time. Patient remains on a mechanical ventilator. She is an assist-control mode She was on IV Lasix and the patient has been adequately diuresed with improvement in lower extremity edema. Overall fluid balance is +2 34 mL. The patient is receiving vital high protein at the rate of 56 mL an hour. No other complaints otherwise for now. She is tolerating her diet. No nausea. No vomiting. No agitation. No restlessness. Rapid shallow breathing index remains low and the patient continues to be not ready for weaning. She is weari ng medical both in lower extremities bilaterally. Chest tubes in a good location. She is on prednisone. She is also off Precedex. pulmonary service recommendations are noted and appreciated; patient is not ready to be weaned Objective - Vital Signs Vital signs: Vital Signs Temp 99.4 F 11/19/21 04:00 Pulse 121 H 11/19/21 07:00 Resp 42 H 11/19/21 07:00 BP 110/51 11/19/21 07:00 Pulse Ox 92 L 11/19/21 07:00 Intake & Output 11/18/21 11/19/21 11/19/21 18:59 06:59 18:59 Intake Total 1261.052 838 68 Output Total 2370 595 25 Balance -1108.948 243 43 Weight 85.5 kg Intake: IV 130 110 10 Sodium Chloride 0.9% 1, 130 110 10 000 ml @ 10 mls/hr IV . Q24H [facility] Rx#:[id number] Intake, IV Titration 41.052 Amount Dexmedetomidine/0.9% NaCl 41.052 (Pmx) 400 mcg In Empty Bag 1 bag @ 0.2 MCG/KG/HR 4.665 mls/hr IV .[id number] [facility] Rx#:[id number] Tube Feeding 870 638 58 Other 220 90 Output: Chest Tube Drainage 10 10 Chest Tube Right Upper 10 10 Anterior Chest Urine 2360 585 25 Other: Voiding Method Indwelling Catheter Indwelling Catheter # Voids 1 # Bowel Movements 1 ABP, PAP, CO, CI - Last Documented Arterial Blood Pressure 120/111 - Exam PHYSICAL EXAMINATION: GENERAL: The patient is alert and oriented x3, not in any acute distress. Well developed, well nourished. HEENT: Pupils are round and equally reacting to light. EOMI. No scleral icterus. No conjunctival pallor. Normocephalic, atraumatic. No pharyngeal erythema. No thyromegaly. CARDIOVASCULAR: S1 and S2 present. No murmurs, rubs, or gallops. PULMONARY: Scattered wheezing with diffusely decreased breath sound. ABDOMEN: Soft, nontender, nondistended, normoactive bowel sounds. No palpable organomegaly. MUSCULOSKELETAL: No joint swelling or deformity. EXTREMITIES: No cyanosis, clubbing, or pedal edema. NEUROLOGICAL: Gross neurological examination did not reveal any focal deficits. SKIN: No rashes. - Labs CBC & Chem 7: 11/19/21 06:01 11/19/21 06:01 Labs: Abnormal Lab Results - Last 24 Hours (Table) 11/18/21 11/18/21 11/18/21 Range/Units 11:40 17:32 22:56 WBC (3.8-10.6) k/uL RBC (3.80-5.40) m/uL Hgb (11.4-16.0) gm/dL Hct (34.0-46.0) % MCHC (31.0-37.0) g/dL RDW (11.5-15.5) % Neutrophils # (1.3-7.7) k/uL Sodium (137-145) mmol/L Carbon Dioxide (22-30) mmol/L BUN (7-17) mg/dL Creatinine (0.52-1.04) mg/dL Glucose (74-99) mg/dL POC Glucose (mg/dL) 227 H 132 H 133 H (75-99) mg/dL 11/19/21 11/19/21 11/19/21 Range/Units 06:01 06:01 06:32 WBC 18.2 H (3.8-10.6) k/uL RBC 3.46 L (3.80-5.40) m/uL Hgb 9.1 L (11.4-16.0) gm/dL Hct 31.0 L (34.0-46.0) % MCHC 29.3 L (31.0-37.0) g/dL RDW 16.3 H (11.5-15.5) % Neutrophils # 11.8 H (1.3-7.7) k/uL Sodium 135 L (137-145) mmol/L Carbon Dioxide 32 H (22-30) mmol/L BUN 32 H (7-17) mg/dL Creatinine 0.28 L (0.52-1.04) mg/dL Glucose 159 H (74-99) mg/dL POC Glucose (mg/dL) 173 H (75-99) mg/dL Assessment and Plan Assessment: 1. Acute hypoxemic respiratory failure - Patient remains on BiPAP at FiO2 of 100%; keeping O2 saturation barely around 90; we will continue to titrate as able 2. COVID-19 viral pneumonia; pulmonary on board; patient not a candidate for Remdesivir, since onset of symptoms is over one week - Patient has been placed on Decadron, vitamin C, vitamin D3 and sitting - Patient placed on Levaquin from ED which may disqualify her for Baricitnib 3. Hypercoagulable state; factor V Leiden deficiency; INR is therapeutic at 2.5; we will continue with Coumadin and monitor PT/INR daily 4. History of DVT; continue anticoagulation with Coumadin 5. Transaminitis; possibly related to COVID-19 infection; we will monitor liver enzymes periodically 6. History of degenerative disc disease/arthritis; patient takes meloxicam at home and methotrexate at home 7. Fibromyalgia; continue home dose of Mobic 7.5 mg daily DVT prophylaxis; SCDs/Coumadin CODE STATUS; full code
--- NOTE | 2021-11-19 14:42 | P.PN ---
Subjective Progress Note Date: 11/19/21 The patient is seen at bedside and nodding that making small steps on daily basis. Objective - Vital Signs Vital signs: Vital Signs Temp 99.9 F H 11/19/21 12:00 Pulse 103 H 11/19/21 13:00 Resp 28 H 11/19/21 13:00 BP 103/41 11/19/21 13:00 Pulse Ox 96 11/19/21 13:00 Intake & Output 11/18/21 11/19/21 11/19/21 18:59 06:59 18:59 Intake Total 1261.052 838 526 Output Total 2370 595 570 Balance -1108.948 243 -44 Weight 85.5 kg 85.5 kg Intake: IV 130 110 60 Sodium Chloride 0.9% 1, 130 110 60 000 ml @ 10 mls/hr IV . Q24H [facility] Rx#:[id number] Intake, IV Titration 41.052 Amount Dexmedetomidine/0.9% NaCl 41.052 (Pmx) 400 mcg In Empty Bag 1 bag @ 0.2 MCG/KG/HR 4.665 mls/hr IV .[id number] [facility] Rx#:[id number] Tube Feeding 870 638 406 Other 220 90 60 Output: Chest Tube Drainage 10 10 Chest Tube Right Upper 10 10 Anterior Chest Urine 2360 585 570 Other: Voiding Method Indwelling Catheter Indwelling Catheter Indwelling Catheter # Voids 1 # Bowel Movements 1 ABP, PAP, CO, CI - Last Documented Arterial Blood Pressure 120/111 - Exam GENERAL: The patient is lying in bed and is not in acute distress. LUNG: Trached and on ventilator. INTEGUMENTARY: Edema 1-2+ NEUROLOGICAL: Is on IV Precedex 0.6mcg/kg/hr. Higher mental function: The patient is awake, alert. Is oriented to her self. She is trying to verbalize but not producing any sound but can be understood thru lip reading and her nodding. She correctly stated some objects (watch and pen). She is following some commands (sticking tongue out, moving extremities). Cranial nerves: The pupils are round, equal and reactive to light. Visual patterson are hard to assess. EOM is intact looking to right and left and no nystagmus. No facial weakness. Motor: The strength is limited because of her condition. But is able to move the right side better than left. Right elbow is able 3/5 and able to pick-up her forearm above bed and lift hand above gravity. While left upper extremity is able to have periodic movement of lifting forearm above gravity. Right ankle is 3/5 While left lower extremity is flicker over the left toe but otherwise 0/5.. Decrease tone throughout. Normal bulk. Sensation: Sensation is normal to touch throughout. Reflexes: Patient refused and was in pain upon attempting to perform. WORK-UP: * CT head on 11/08/21 showed no acute process. * CT head on 11/14/2021 is reported as negative. It is reported as bilateral mastoiditis was also significant left-sided otitis media. Cholesteatoma is possible. No change compared to recent exam on 11/08/2021. I personally reviewed the CT of the head and I do not appreciate any acute subacute ische gilmer and there is no interpretable hemorrhage * CT cervical spine is reported as previous cervical spine fusion surgery. Spondylitic change. No acute bony abnormality. No fracture. I personally reviewed this. Of the neck and the patient does have previous cervical fusion over the C5-C6 region but there is no severe spondylitic changes. * Carotid Doppler showed no significant stenosis. * 2-D echo from 11/01/2021 showed mild concentric LVH. EF is between 55-60%. Aortic valve not well visualized. - Labs CBC & Chem 7: 11/19/21 06:01 11/19/21 06:01 Labs: Abnormal Lab Results - Last 24 Hours (Table) 11/18/21 11/18/21 11/19/21 Range/Units 17:32 22:56 06:01 WBC 18.2 H (3.8-10.6) k/uL RBC 3.46 L (3.80-5.40) m/uL Hgb 9.1 L (11.4-16.0) gm/dL Hct 31.0 L (34.0-46.0) % MCHC 29.3 L (31.0-37.0) g/dL RDW 16.3 H (11.5-15.5) % Neutrophils # 11.8 H (1.3-7.7) k/uL Sodium (137-145) mmol/L Carbon Dioxide (22-30) mmol/L BUN (7-17) mg/dL Creatinine (0.52-1.04) mg/dL Glucose (74-99) mg/dL POC Glucose (mg/dL) 132 H 133 H (75-99) mg/dL 11/19/21 11/19/21 11/19/21 Range/Units 06:01 06:32 11:44 WBC (3.8-10.6) k/uL RBC (3.80-5.40) m/uL Hgb (11.4-16.0) gm/dL Hct (34.0-46.0) % MCHC (31.0-37.0) g/dL RDW (11.5-15.5) % Neutrophils # (1.3-7.7) k/uL Sodium 135 L (137-145) mmol/L Carbon Dioxide 32 H (22-30) mmol/L BUN 32 H (7-17) mg/dL Creatinine 0.28 L (0.52-1.04) mg/dL Glucose 159 H (74-99) mg/dL POC Glucose (mg/dL) 173 H 201 H (75-99) mg/dL Assessment and Plan Assessment: * Generalized weakness appears critical illness myopathy/neuropathy---is making slow improvement on in last two weeks on daily basis. * Left sided weakness > right sided. Unknown cause. Repeat CT head is negative for stroke and CT C-spine is negative for significant spondylotic change. * Encephalopathy, improving. * Ventilator-dependent respiratory failure * Status post tracheostomy and PEG placement * Status post Covid-19 pneumonia * B12 deficiency (elevated methylmalonic acid) * Folate deficiency * Vitamin B6 deficiency * History of cervical fusion (appears C5-C6 region) * Rheumatoid Arthritis. * Pneumothorax * Obesity * DVT left leg, currently on anticoagulation with Eliquis. Plan: * Cannot obtain MRI because of ventilator. If patient has asymmetry of weakness from one side to other recommend MRI Brain and C-spine as outpatient. 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 GBS was felt to be low on differential. Clinical picture appears more like critical illness myopathy/neuropathy. Patient also has nutritional deficiency with B12, folate and B6 deficiency. Consider EMG with NCS as outpatient. * Patient will need prolonged therapy. In the mean time recommend physical therapy and occupational therapy to work with her on a daily basis. Patient is making small improvement on daily basis and her agrees (he feels she has been making improvement in the past two weeks). * B12 586, methylmalonic acid elevated 0.45 (<0.40), folate 3.8 (4.4-31), vitamin B6 4 (5-50), hemoglobin A1c 4.9, CK 31 normal, aldolase 7.3 normal, rheumatoid factor 68. Patient's TSH is normal 1.38. Completed vitamin B12 injections 1000 g IM for total 3 days and started B12 1000mcg daily. We will also start vitamin B6 replacement. Continue folic acid 1 mg daily. * Patient currently on Eliquis for her history of DVT. * Patient has rheumatoid arthritis, always needed methotrexate. She has not received her methotrexate since last 2 months. * Will defer the rest of medical management to the primary and ICU team. I feel the patient would benefit from rehab (subacute). The plan is discussed with the patient's ICU team. There is no further neurological work-up. Jean-Paul Pope M.D. Neuro-Hospitalist Time with Patient: Less than 30
[2021-11-19 18:32] LABS: Glucose,Whole Blood 154 mg/dL (75-99)
[2021-11-19] MEDS: SODIUM CHLORIDE 0.9% 1,000 ML IV SCH (19:08)
[2021-11-19] MEDS: INSULIN DETEMIR (LEVEMIR) 100 UNIT/ML SYR SQ SCH (21:18)
[2021-11-19 23:08] LABS: Glucose,Whole Blood 158 mg/dL (75-99)
[2021-11-20] MEDS: LORazepam 2 MG/ML INJ IV PRN ×3 (02:15→20:38)
[2021-11-20] MEDS: HYDROmorphone 1 MG/ML 1 ML SYRINGE IVP PRN ×4 (03:01→19:12)
[2021-11-20] MEDS: DEXMEDETOMIDINE/0.9% NACL(PMX) 400 MCG in EMPTY BAG 1 BAG IV SCH (04:29)
[2021-11-20 05:30] LABS: Glucose,Whole Blood 178 mg/dL (75-99)
[2021-11-20] MEDS: INSULIN ASPART (NovoLOG) 100 UNIT/ML VIAL SQ SCH ×3 (05:31→17:06)
[2021-11-20 06:04] LABS: Anisocytosis Slight; Basophils # (A) 0.1 k/uL (0-0.2); Basophils % (A) 0 %; Eosinophils # (A) 0.2 k/uL (0-0.7); Eosinophils % (A) 2 %; HGB 8.8 gm/dL (11.4-16.0); Hypochromasia Marked; Lymphocytes % (A) 24 %; MCH 25.7 pg (25.0-35.0); MCHC 29.4 g/dL (31.0-37.0); MCV 87.4 fL (80.0-100.0); Mean Platelet Volume 9.5; Monocytes # (A) 0.8 k/uL (0-1.0); Monocytes % (A) 6 %; Neutrophils # (A) 8.4 k/uL (1.3-7.7); Neutrophils % (A) 66 %; Platelet Count 295 k/uL (150-450); RBC 3.43 m/uL (3.80-5.40); RDW 16.3 % (11.5-15.5); WBC 12.7 k/uL (3.8-10.6)
[2021-11-20 06:23] LABS: ALT 37 U/L (4-34); AST 22 U/L (14-36); African American GFR (CKD) >90 (>60 ml/min/1.73 sqM); Albumin 2.7 g/dL (3.5-5.0); Alkaline Phosphatase 62 U/L (38-126); Anion Gap 5 mmol/L; Blood Urea Nitrogen 29 mg/dL (7-17); Calcium 8.7 mg/dL (8.4-10.2); Carbon Dioxide 35 mmol/L (22-30); Chloride 97 mmol/L (98-107); Glucose 174 mg/dL (74-99); Non-African American GFR(CKD) >90 (>60 ml/min/1.73 sqM); Potassium 3.6 mmol/L (3.5-5.1); Sodium 137 mmol/L (137-145); Total Bilirubin 0.6 mg/dL (0.2-1.3); Total Protein 5.4 g/dL (6.3-8.2)
--- NOTE | 2021-11-20 07:09 | XR ---
EXAMINATION TYPE: XR chest 1V portable DATE OF EXAM: 11/20/2021 COMPARISON: November 19 HISTORY: SOB, Follow Up FINDINGS: Right-sided chest tube redemonstrated as is right upper lobe pneumothorax. Apical pleural measurement of 2.7 cm versus 1.9 cm previously. Scattered reticulonodular infiltrates throughout both lung patterson. Tracheostomy tube and right-sided PICC line are in place. Stable appearance of the cardio-mediastinal structures at this time. IMPRESSION: 1. Right-sided chest tube redemonstrated as is right upper lobe pneumothorax. Apical pleural measure ment of 2.7 cm versus 1.9 cm previously. Scattered reticulonodular infiltrates throughout both lung f ields.
[2021-11-20] MEDS: APIXABAN 5 MG TAB PO SCH ×2 (08:06→20:38)
[2021-11-20] MEDS: ASCORBIC ACID 500 MG TAB PO SCH ×2 (08:06→20:38)
[2021-11-20] MEDS: FOLIC ACID 1 MG TAB PO SCH (08:06)
[2021-11-20] MEDS: CYANOCOBALAMIN 500 MCG TAB PO SCH (08:06)
[2021-11-20] MEDS: busPIRone HCl 5 MG TAB PO SCH ×2 (08:07→20:39)
[2021-11-20] MEDS: METOPROLOL TARTRATE 50 MG TAB PO SCH ×2 (08:07→20:38)
[2021-11-20] MEDS: ZINC SULFATE 220 MG CAP PO SCH (08:07)
[2021-11-20] MEDS: POTASSIUM BICARBONATE/CIT AC 20 MEQ TABLET.EFF PO SCH ×3 (08:07→21:01)
[2021-11-20] MEDS: PANTOPRAZOLE 40 MG/10 ML VIAL IV SCH (08:07)
[2021-11-20] MEDS: QUEtiapine 50 MG TAB PO SCH ×2 (08:08→20:39)
[2021-11-20] MEDS: PYRIDOXINE 50 MG TAB PO SCH (08:08)
[2021-11-20 12:45] LABS: Glucose,Whole Blood 204 mg/dL (75-99)
--- NOTE | 2021-11-20 12:59 | P.PN ---
Subjective Progress Note Date: 11/20/218521, the patient is awake and alert. She remains off Precedex for the past 48 hours. She is calm and comfortable. Chest x-ray showed enlargement of the right sided pneumothorax on today's evaluation. The chest tube is in a good location. Nevertheless, there is an ongoing positive air leak. Patient remains on assist-control at the rate of 22, tidal volume of 400, FiO2 of 40% with a PEEP of 3 with a peak air pressure of 28. Weaning parameters are extremely weak. The patient's rapid shallow breathing index today is at 151. Switch this patient to a pressure support mode which she was unable tolerate. Switch this patient an SIMV mode which she was unable to tolerate. Based on that, the patient was switched back to her volume cycle assist-control mode of mechanical ventilation. The patient otherwise is awake and alert. The fluid balance has been -865 mL over the past 24 hours. The patient is currently on vital high protein at the rate of 58 mL an hour. She is afebrile. She is hemodynamically stable. No agitation. Motor function is quite weak and off oximeter and the patient has a left foot drop. The patient has a white cell count 12.7 with a hemoglobin 8.8 and platelet count of 295. BUN is at 29 with a creatinine of 0.3 and the sodium level is at 137. Glucose a total 4. Active site is dry clean and intact and she is tolerating the enteral feeding for nutritional support without any major difficulties. She was taken off the prednisone. Objective - Vital Signs Vital signs: Vital Signs Temp 98.9 F 11/20/21 08:00 Pulse 101 H 11/20/21 11:00 Resp 27 H 11/20/21 11:00 BP 102/58 11/20/21 11:00 Pulse Ox 94 L 11/20/21 11:00 Intake & Output 11/19/21 11/20/21 11/20/21 18:59 06:59 18:59 Intake Total 888 906 370 Output Total 1015 405 210 Balance -127 501 160 Weight 85.5 kg 87.1 kg Intake: IV 110 120 50 Sodium Chloride 0.9% 1, 110 120 50 000 ml @ 10 mls/hr IV . Q24H [facility] Rx#:[id number] Tube Feeding 688 696 290 Other 90 90 30 Output: Urine 1015 405 210 Other: Voiding Method Indwelling Catheter Indwelling Catheter # Bowel Movements 1 ABP, PAP, CO, CI - Last Documented Arterial Blood Pressure 120/111 - Exam GENERAL EXAM: Awake and follows simple command, trached to the ventilator, on assist control mode of ventilation with a rate of22, tidal volume 400, FiO2 of 40% with a PEEP of 3 HEAD: Normocephalic/atraumatic. EYES: Normal reaction of pupils, equal size. Conjunctiva pink, sclera white. NOSE: Clear with pink turbinates. THROAT: No erythema or exudates. NECK: No masses, no JVD, no thyroid enlargement, no adenopathy. CHEST: No chest wall deformity. Symmetrical expansion. 1 right-sided chest tubes in place, there is continous air leak from right-sided chest tube LUNGS: Equal air entry with no crackles, wheeze, rhonchi or dullness. CVS: Irregular rate and rhythm, normal S1 and S2, no gallops, no murmurs, no rubs ABDOMEN: Soft, nontender. No hepatosplenomegaly, normal bowel sounds, no guarding or rigidity. PEG tube in place with tube feedings infusing with vital HP EXTREMITIES: No clubbing, significant gen edema, no cyanosis, 2+ pulses and upper and lower extremities. MUSCULOSKELETAL: Muscle strength and tone extremely weak SPINE: No scoliosis or deformity SKIN: No rashes CENTRAL NERVOUS SYSTEM:Awke and alert, trached to the ventilator, Follows simple command. No focal deficits, tone is normal in all 4 extremities. Generalized motor weakness in all 4 extremities and the patient has difficulties with movement and motor functions. - Labs CBC & Chem 7: 11/20/21 05:34 11/20/21 05:34 Labs: Abnormal Lab Results - Last 24 Hours (Table) 11/19/21 11/19/21 11/20/21 Range/Units 18:31 23:06 05:29 WBC (3.8-10.6) k/uL RBC (3.80-5.40) m/uL Hgb (11.4-16.0) gm/dL Hct (34.0-46.0) % MCHC (31.0-37.0) g/dL RDW (11.5-15.5) % Neutrophils # (1.3-7.7) k/uL Chloride (98-107) mmol/L Carbon Dioxide (22-30) mmol/L BUN (7-17) mg/dL Creatinine (0.52-1.04) mg/dL Glucose (74-99) mg/dL POC Glucose (mg/dL) 154 H 158 H 178 H (75-99) mg/dL ALT (4-34) U/L Total Protein (6.3-8.2) g/dL Albumin (3.5-5.0) g/dL 11/20/21 11/20/21 11/20/21 Range/Units 05:34 05:34 12:43 WBC 12.7 H (3.8-10.6) k/uL RBC 3.43 L (3.80-5.40) m/uL Hgb 8.8 L (11.4-16.0) gm/dL Hct 30.0 L (34.0-46.0) % MCHC 29.4 L (31.0-37.0) g/dL RDW 16.3 H (11.5-15.5) % Neutrophils # 8.4 H (1.3-7.7) k/uL Chloride 97 L (98-107) mmol/L Carbon Dioxide 35 H (22-30) mmol/L BUN 29 H (7-17) mg/dL Creatinine 0.33 L (0.52-1.04) mg/dL Glucose 174 H (74-99) mg/dL POC Glucose (mg/dL) 204 H (75-99) mg/dL ALT 37 H (4-34) U/L Total Protein 5.4 L (6.3-8.2) g/dL Albumin 2.7 L (3.5-5.0) g/dL Assessment and Plan Plan: #1. Acute hypoxic respiratory failure related to COVID-19 pneumonia complicated with ARDS. Patient was intubated and on 09/25/2021, status post tracheostomy and PEG tube placement on 10/14/2021. The patient remains ventilator dependen weaning parameters remain low. The chest x-ray from today shows a interval enlargement of the right-sided pneumothorax which is normal to above 10% and there is positive air leak. Failed any other mode of weaning including pressure support and SIMV and the patient is currently on volume cycle assist-control mode of mechanical ventilation on the original settings. #2. Acute COVID 19 related pneumonia, still on prednisone which is a part of the burst taper. The patient is currently off prednisone #3. Generalized motor weakness in all 4 extremities related to critical illness polyneuropathy and myopathy, extensive edema in all 4 extremities, currently on IV Lasix. The patient achieve a negative fluid balance and the edema is improved in all 4 extremities. The motor function has been unchanged compared to yesterday. The patient has a left foot drop #4. Bilateral pneumothoraces requiring bilateral chest tube placements, with subsequent removal and recurrence of right-sided pneumothorax, requiring placement of another chest tube on the right, and subsequent Thoravent placement on 10/25/2021, and subsequent removal of the Thoravent on 10/29/2021 and placement of another right-sided chest tube on 10/29/2021. The patient is a intermittent air leak in the right sided chest tube and there is a persistent pneumothorax on the right the chest x-ray from today showing some enlargement of right-sided pneumothorax #5. Acute deep vein thrombosis on Eliquis, no signs of bleeding #6. New-onset A. fib on 10/31/2021, currently in sinus, patient was on Cardizem drip, now on oral Cardizem, remains on Eliquis, currently in sinus rhythm #7. Subcutaneous emphysema resolved #8. Prior history of DVT #9. Increased anxiety #10. Mildly elevated liver enzymes secondary to COVID-19, recovered #11. Nonsustained ventricular tachycardia resolved #12. History of fibromyalgia #13 chronic anemia, multifactorial, expected outcome of prolonged ICU stay #14 critical illness polyneuropathy and myopathy with profound weakness in all 4 extremities. Plan Continue ventilator support, there is interval increase in the right-sided pneumothorax which is currently in the order of 10-15% along with persistent air leak. Unable to wean Significant motor weakness Weaning parameters remain poor, not ready for any weaning exercises as the patient continues to have significant motor weakness in all 4 extremities Continue Seroquel Continue BuSpar Continue Eliquis for long-term anticoagulation Continued IV Protonix Continue vital high protein for enteral feeding and nutritional support Continue with the Physical therapy for passive range of motion We'll check weaning parameters, these are being checked on a daily basis. The patient rapid shallow breathing index. She is not ready for any weaning at this point in time. This will be a prolonged wean as the patient has significant amount of motor weakness in all 4 extremities. Condition remains critical and will continue to follow make further accommodation based on her progress. This critically care evaluation was done and more than 30 minutes. Time with Patient: Greater than 30
--- NOTE | 2021-11-20 15:08 | P.PN ---
Subjective Progress Note Date: 11/20/21 Principal diagnosis: Acute hypoxemic respiratory failure secondary to coronavirus associated pneumonia. Mild transaminitis secondary to coronavirus infection. Primary hypercoagulable state in the form of Leiden factor deficiency/factor V deficiency 61-year-old female, with history of DVT/clotting disorder-factor V or Leiden factor deficiency , fibromyalgia, arthritis who presents to the emergency department complaining of difficulty breathing since [place]. Patient states it got progressively worse. Patient states she typically gets bronchitis 3 times here in the past which she thinks this. EMS stated her pulse ox on room air was in the 70s. They put her on a nonrebreather and is still only came up into the 80s. Patient denies chest pain difficulty breathing shortest breath per patient states she did not get COVID vaccine. Patient states she has a blood clotting disorder. Patient is on Coumadin. Patient denies any abdominal pain patient denies nausea vomiting diarrhea. Patient denies headache patient denies any numbness or weakness. Patient denies any syncopal episode. Initially, on room air, her saturations were in the 70s, and on a nonrebreather, only got up into the mid 80s. In addition to the primary hypercoagulable state, she has a history of DVT, fibromyalgia, pneumonia, arthritis, and degenerative disc disease. She is a lifelong nonsmoker. She is getting saline at 50 mL an hour currently. White count 12.1, with a normal hemoglobin, hematocrit, and platelet count. PTT 24.2 INR 2.5, and d-dimer was 32.13. Sodium 1:30, potassium 3.1, chlorides 106, CO2 20, anion gap 12, BUN 47, and creatinine 1.5. Lactic acid was 1.5. AST was 95 with an ALT of 60. Pro- calcitonin level was 0.52. N-terminal proBNP is 259. Chest x-ray reveals diffuse bilateral infiltrates. CT angiogram was negative for pulmonary embolism, but did show diffuse infiltrates consistent with coronavirus pneumonia. 09/25/2021 Patient has been evaluated by pulmonary service; continue to decline on BiPAP and is recommended to be transferred to ICU; plan is for possible intubation and mechanical ventilation if patient continues to deteriorate CT angiogram was negative for pulmonary embolism. White count 17.1, hemoglobin 11.9, hematocrit 37.5, platelet count 390,000. PTT is 33.3 INR is 3.5. Blood g ases done on 100% show pO2 of only 49, pCO2 32, and a pH is 7.42. Sodium is 142, potassium 3.7, chlorides 113, CO2 21, anion gap 8, BUN 35, with a creatinine of 1.01. 09/26/2021 Patient is seen and evaluated in ICU; remains on the ventilator. Patient was intubated after transferred to ICU yesterday Arterial blood gases show pO2 of 82, pCO2 46, and a pH is 7.27. Chest x-ray shows a properly placed endotracheal tube, and diffuse bilateral infiltrates, which are essentially unchanged. White count 14.4, hemoglobin 10.5, hematocrit 32.4, and platelet count 250,000. PTT 34.5 with an INR 3.6. Sodium 143, potassium 4, chlorides 118, CO2 22, anion gap 3, BUN 27, and creatinine 0.95. LDH is 930. C-reactive protein is 16.2. CT angiogram was negative for pulmonary embolism. 11/19/2021; patient is seen and evaluated for follow-up in ICU and discussed with nursing staff. This morning, the patient is off Precedex; following commands and an swering questions. The chest x-ray shows further decrease in the right apical pneumothorax. There is improvement daily which is intermittent at this point in time. Patient remains on a mechanical ventilator. She is an assist-control mode She was on IV Lasix and the patient has been adequately diuresed with improvement in lower extremity edema. Overall fluid balance is +2 34 mL. The patient is receiving vital high protein at the rate of 56 mL an hour. No other complaints otherwise for now. She is tolerating her diet. No nausea. No vomiting. No agitation. No restlessness. Rapid shallow breathing index remains low and the patient continues to be not ready for weaning. She is weari ng medical both in lower extremities bilaterally. Chest tubes in a good location. She is on prednisone. She is also off Precedex. pulmonary service recommendations are noted and appreciated; patient is not ready to be weaned 11/20/2021 Patient is seen and evaluated; remains in ICU; seems to be comfortable Vital signs remained stable with temperature of 98.9, pulse 11, respiration 27 and blood pressure 102/58 Patient remains intubated and mechanically ventilated; chest x-ray completed reveals enlargement of right-sided pneumothorax; chest tube seems to be in good position Patient is currently not ready to be weaned off The patient has a white cell count 12.7 with a hemoglobin 8.8 and platelet count of 295. BUN is at 29 with a creatinine of 0.3 and the sodium level is at 137; tolerating the enteral feeding for nutritional support without any major difficulties. Objective - Vital Signs Vital signs: Vital Signs Temp 98.9 F 11/20/21 08:00 Pulse 114 H 11/20/21 08:00 Resp 37 H 11/20/21 08:00 BP 98/54 11/20/21 08:00 Pulse Ox 93 L 11/20/21 08:00 Intake & Output 11/19/21 11/20/21 11/20/21 18:59 06:59 18:59 Intake Total 888 906 302 Output Total 1015 405 175 Balance -127 501 127 Weight 85.5 kg 87.1 kg Intake: IV 110 120 40 Sodium Chloride 0.9% 1, 110 120 40 000 ml @ 10 mls/hr IV . Q24H [facility] Rx#:[id number] Tube Feeding 688 696 232 Other 90 90 30 Output: Urine 1015 405 175 Other: Voiding Method Indwelling Catheter Indwelling Catheter # Bowel Movements 1 ABP, PAP, CO, CI - Last Documented Arterial Blood Pressure 120/111 - Exam PHYSICAL EXAMINATION: GENERAL: The patient is alert and oriented x3, not in any acute distress. Well developed, well nourished. HEENT: Pupils are round and equally reacting to light. EOMI. No scleral icterus. No conjunctival pallor. Normocephalic, atraumatic. No pharyngeal erythema. No thyromegaly. CARDIOVASCULAR: S1 and S2 present. No murmurs, rubs, or gallops. PULMONARY: Scattered wheezing with diffusely decreased breath sound. ABDOMEN: Soft, nontender, nondistended, normoactive bowel sounds. No palpable or ganomegaly. MUSCULOSKELETAL: No joint swelling or deformity. EXTREMITIES: No cyanosis, clubbing, or pedal edema. NEUROLOGICAL: Gross neurological examination did not reveal any focal deficits. SKIN: No rashes. - Labs CBC & Chem 7: 11/20/21 05:34 11/20/21 05:34 Labs: Abnormal Lab Results - Last 24 Hours (Table) 11/19/21 11/19/21 11/19/21 Range/Units 11:44 18:31 23:06 WBC (3.8-10.6) k/uL RBC (3.80-5.40) m/uL Hgb (11.4-16.0) gm/dL Hct (34.0-46.0) % MCHC (31.0-37.0) g/dL RDW (11.5-15.5) % Neutrophils # (1.3-7.7) k/uL Chloride (98-107) mmol/L Carbon Dioxide (22-30) mmol/L BUN (7-17) mg/dL Creatinine (0.52-1.04) mg/dL Glucose (74-99) mg/dL POC Glucose (mg/dL) 201 H 154 H 158 H (75-99) mg/dL ALT (4-34) U/L Total Protein (6.3-8.2) g/dL Albumin (3.5-5.0) g/dL 11/20/21 11/20/21 11/20/21 Range/Units 05:29 05:34 05:34 WBC 12.7 H (3.8-10.6) k/uL RBC 3.43 L (3.80-5.40) m/uL Hgb 8.8 L (11.4-16.0) gm/dL Hct 30.0 L (34.0-46.0) % MCHC 29.4 L (31.0-37.0) g/dL RDW 16.3 H (11.5-15.5) % Neutrophils # 8.4 H (1.3-7.7) k/uL Chloride 97 L (98-107) mmol/L Carbon Dioxide 35 H (22-30) mmol/L BUN 29 H (7-17) mg/dL Creatinine 0.33 L (0.52-1.04) mg/dL Glucose 174 H (74-99) mg/dL POC Glucose (mg/dL) 178 H (75-99) mg/dL ALT 37 H (4-34) U/L Total Protein 5.4 L (6.3-8.2) g/dL Albumin 2.7 L (3.5-5.0) g/dL Assessment and Plan Assessment: 1. Acute hypoxemic respiratory failure - Patient remains on BiPAP at FiO2 of 100%; keeping O2 saturation barely around 90; we will continue to titrate as able 2. COVID-19 viral pneumonia; pulmonary on board; patient not a candidate for Remdesivir, since onset of symptoms is over one week - Patient has been placed on Decadron, vitamin C, vitamin D3 and sitting - Patient placed on Levaquin from ED which may disqualify her for Baricitnib 3. Hypercoagulable state; factor V Leiden deficiency; INR is therapeutic at 2.5; we will continue with Coumadin and monitor PT/INR daily 4. History of DVT; continue anticoagulation with Coumadin 5. Transaminitis; possibly related to COVID-19 infection; we will monitor liver enzymes periodically 6. History of degenerative disc disease/arthritis; patient takes meloxicam at home and methotrexate at home 7. Fibromyalgia; continue home dose of Mobic 7.5 mg daily DVT prophylaxis; SCDs/Coumadin CODE STATUS; full code
[2021-11-20] MEDS: SODIUM CHLORIDE 0.9% 1,000 ML IV SCH (16:40)
[2021-11-20 16:58] LABS: Glucose,Whole Blood 180 mg/dL (75-99)
[2021-11-20] MEDS: INSULIN DETEMIR (LEVEMIR) 100 UNIT/ML SYR SQ SCH (20:40)
[2021-11-20 23:42] LABS: Glucose,Whole Blood 177 mg/dL (75-99)
[2021-11-21] MEDS: INSULIN ASPART (NovoLOG) 100 UNIT/ML VIAL SQ SCH ×4 (00:12→18:23)
[2021-11-21] MEDS: HYDROmorphone 1 MG/ML 1 ML SYRINGE IVP PRN ×6 (01:41→19:05)
[2021-11-21] MEDS: DEXMEDETOMIDINE/0.9% NACL(PMX) 400 MCG in EMPTY BAG 1 BAG IV SCH (04:33)
[2021-11-21 06:45] LABS: Glucose,Whole Blood 162 mg/dL (75-99)
[2021-11-21] MEDS: CYANOCOBALAMIN 500 MCG TAB PO SCH (07:31)
[2021-11-21] MEDS: APIXABAN 5 MG TAB PO SCH ×2 (07:31→20:47)
[2021-11-21] MEDS: ZINC SULFATE 220 MG CAP PO SCH (07:31)
[2021-11-21] MEDS: ERGOCALCIFEROL 1,250 MCG (50,000 IU) CAPSULE PO SCH (07:32)
[2021-11-21] MEDS: FOLIC ACID 1 MG TAB PO SCH (07:32)
[2021-11-21] MEDS: METOPROLOL TARTRATE 50 MG TAB PO SCH ×2 (07:32→20:47)
[2021-11-21] MEDS: QUEtiapine 50 MG TAB PO SCH ×2 (07:32→20:47)
[2021-11-21] MEDS: ASCORBIC ACID 500 MG TAB PO SCH ×2 (07:32→20:47)
[2021-11-21] MEDS: PYRIDOXINE 50 MG TAB PO SCH (07:33)
[2021-11-21] MEDS: busPIRone HCl 5 MG TAB PO SCH ×2 (07:33→20:47)
[2021-11-21] MEDS: PANTOPRAZOLE 40 MG/10 ML VIAL IV SCH (07:34)
[2021-11-21] MEDS: POTASSIUM BICARBONATE/CIT AC 20 MEQ TABLET.EFF PO SCH ×3 (07:34→20:49)
--- NOTE | 2021-11-21 07:44 | XR ---
EXAMINATION TYPE: XR chest 1V portable DATE OF EXAM: 11/21/2021 COMPARISON: 11/20/2021 HISTORY: SOB, Follow Up FINDINGS: Tracheostomy tubing obscures the right apical pneumothorax which I presume remains present. Right-batool ed PICC line and right-sided chest tube in place. Scattered reticulonodular infiltrates unchanged. Stable appearance of the cardio-mediastinal structures at this time. IMPRESSION: 1. Tracheostomy tubing obscures the right apical pneumothorax which I presume remains present.
[2021-11-21 07:58] LABS: Anisocytosis Slight; Basophils # (A) 0.1 k/uL (0-0.2); Basophils % (A) 0 %; Eosinophils # (A) 0.4 k/uL (0-0.7); Eosinophils % (A) 2 %; HCT 30.1 % (34.0-46.0); HGB 9.3 gm/dL (11.4-16.0); Hypochromasia Marked; Lymphocytes # (A) 3.9 k/uL (1.0-4.8); Lymphocytes % (A) 25 %; MCH 26.8 pg (25.0-35.0); MCHC 30.8 g/dL (31.0-37.0); Mean Platelet Volume 9.8; Monocytes # (A) 0.9 k/uL (0-1.0); Monocytes % (A) 6 %; Neutrophils # (A) 10.2 k/uL (1.3-7.7); Neutrophils % (A) 65 %; Platelet Count 289 k/uL (150-450); RBC 3.46 m/uL (3.80-5.40); RDW 16.2 % (11.5-15.5); WBC 15.6 k/uL (3.8-10.6)
[2021-11-21 08:15] LABS: African American GFR (CKD) >90 (>60 ml/min/1.73 sqM); Anion Gap 1 mmol/L; Blood Urea Nitrogen 26 mg/dL (7-17); Calcium 8.8 mg/dL (8.4-10.2); Carbon Dioxide 33 mmol/L (22-30); Chloride 100 mmol/L (98-107); Glucose 152 mg/dL (74-99); Non-African American GFR(CKD) >90 (>60 ml/min/1.73 sqM); Sodium 134 mmol/L (137-145)
--- NOTE | 2021-11-21 09:13 | XR ---
EXAMINATION TYPE: XR chest 1V portable DATE OF EXAM: 11/21/2021 COMPARISON: Same day and 11/20/2021 HISTORY: SOB, Follow Up FINDINGS: Indwelling tubes and catheters are unchanged. Right upper lobe pneumothorax appears unchanged relative to 11/20/2021 Category reticulonodular infiltrates persist. Stable appearance of the cardio-mediastinal structures at this time. Pleural effusion unchanged. IMPRESSION: 1. Right upper lobe pneumothorax appears unchanged relative to 11/20/2021
[2021-11-21 11:40] LABS: Glucose,Whole Blood 191 mg/dL (75-99)
--- NOTE | 2021-11-21 11:52 | P.PN ---
Subjective Progress Note Date: 11/21/21 11/21/2021, seeing patient for a follow-up. On today's chest x-ray, the pneumothorax is very tiny and the patient has been amount of air leak from the chest tube. Remains on a mechanical ventilator. She remains on assist-control at the rate of 22, tidal volume of 400, FiO2 of 40% with a PEEP of 3. Weaning parameters remain poor. Rapid shallow breathing index is very high. Unable to tolerate any form of weaning including an SIMV mode. Significant motor weakness still present. No alcohol change since yesterday. Meanwhile, the patient is doing well hemodynamically. She is off diuretics pH is off steroids. Her creatinine is at 0.26 with a BMI of 26. White cell count is 15.6 with a hemoglobin of 9.3. She remains on vital high protein at the rate of 50 mL an hour. No other new complaints otherwise for now. Active site is dry clean and intact. She is awake and alert and communicating. Active issue remains significant neuromuscular motor weakness and a all 4 extremities. The weakness is worse in the left leg where there is a foot drop. No open wounds. Trace edema in lower extremity bilaterally. Afebrile hemodynamically stable. Objective - Vital Signs Vital signs: Vital Signs Temp 99 F 11/21/21 00:00 Pulse 114 H 11/21/21 11:00 Resp 22 11/21/21 11:00 BP 126/64 11/21/21 11:00 Pulse Ox 94 L 11/21/21 11:00 Intake & Output 11/20/21 11/21/21 11/21/21 18:59 06:59 18:59 Intake Total 906 974 302 Output Total 585 665 145 Balance 321 309 157 Weight 86 kg Intake: IV 120 10 40 0.9 NACL 40 Sodium Chloride 0.9% 1, 120 10 000 ml @ 10 mls/hr IV . Q24H [facility] Rx#:[id number] Tube Feeding 696 754 232 Other 90 210 30 Output: Chest Tube Drainage 0 Chest Tube Right Upper 0 Anterior Chest Urine 585 665 145 Other: Voiding Method Indwelling Catheter Indwelling Catheter Indwelling Catheter # Bowel Movements 1 1 ABP, PAP, CO, CI - Last Documented Arterial Blood Pressure 120/111 - Exam GENERAL EXAM: Awake and follows simple command, trached to the ventilator, on assist control mode of ventilation with a rate of22, tidal volume 400, FiO2 of 40% with a PEEP of 3 HEAD: Normocephalic/atraumatic. EYES: Normal reaction of pupils, equal size. Conjunctiva pink, sclera white. NOSE: Clear with pink turbinates. THROAT: No erythema or exudates. NECK: No masses, no JVD, no thyroid enlargement, no adenopathy. CHEST: No chest wall deformity. Symmetrical expansion. 1 right-sided chest tubes in place, there is continous air leak from right-sided chest tube LUNGS: Equal air entry with no crackles, wheeze, rhonchi or dullness. CVS: Irregular rate and rhythm, normal S1 and S2, no gallops, no murmurs, no rubs ABDOMEN: Soft, nontender. No hepatosplenomegaly, normal bowel sounds, no guarding or rigidity. PEG tube in place with tube feedings infusing with vital HP EXTREMITIES: No clubbing, significant gen edema, no cyanosis, 2+ pulses and upper and lower extremities. MUSCULOSKELETAL: Muscle strength and tone extremely weak SPINE: No scoliosis or deformity SKIN: No rashes CENTRAL NERVOUS SYSTEM:Awke and alert, trached to the ventilator, Follows simple command. No focal deficits, tone is normal in all 4 extremities. Generalized motor weakness in all 4 extremities and the patient has difficulties with movement and motor functions. - Labs CBC & Chem 7: 11/21/21 07:11 11/21/21 07:11 Labs: Abnormal Lab Results - Last 24 Hours (Table) 11/20/21 11/20/21 11/20/21 Range/Units 12:43 16:56 23:40 WBC (3.8-10.6) k/uL RBC (3.80-5.40) m/uL Hgb (11.4-16.0) gm/dL Hct (34.0-46.0) % MCHC (31.0-37.0) g/dL RDW (11.5-15.5) % Neutrophils # (1.3-7.7) k/uL Sodium (137-145) mmol/L Carbon Dioxide (22-30) mmol/L BUN (7-17) mg/dL Creatinine (0.52-1.04) mg/dL Glucose (74-99) mg/dL POC Glucose (mg/dL) 204 H 180 H 177 H (75-99) mg/dL 11/21/21 11/21/21 11/21/21 Range/Units 06:44 07:11 07:11 WBC 15.6 H (3.8-10.6) k/uL RBC 3.46 L (3.80-5.40) m/uL Hgb 9.3 L (11.4-16.0) gm/dL Hct 30.1 L (34.0-46.0) % MCHC 30.8 L (31.0-37.0) g/dL RDW 16.2 H (11.5-15.5) % Neutrophils # 10.2 H (1.3-7.7) k/uL Sodium 134 L (137-145) mmol/L Carbon Dioxide 33 H (22-30) mmol/L BUN 26 H (7-17) mg/dL Creatinine 0.26 L (0.52-1.04) mg/dL Glucose 152 H (74-99) mg/dL POC Glucose (mg/dL) 162 H (75-99) mg/dL 11/21/21 Range/Units 11:39 WBC (3.8-10.6) k/uL RBC (3.80-5.40) m/uL Hgb (11.4-16.0) gm/dL Hct (34.0-46.0) % MCHC (31.0-37.0) g/dL RDW (11.5-15.5) % Neutrophils # (1.3-7.7) k/uL Sodium (137-145) mmol/L Carbon Dioxide (22-30) mmol/L BUN (7-17) mg/dL Creatinine (0.52-1.04) mg/dL Glucose (74-99) mg/dL POC Glucose (mg/dL) 191 H (75-99) mg/dL Assessment and Plan Plan: #1. Acute hypoxic respiratory failure related to COVID-19 pneumonia complicated with ARDS. Patient was intubated and on 09/25/2021, status post tracheostomy and PEG tube placement on 10/14/2021. The patient remains ventilator dependen weaning parameters remain low. Failed any other mode of weaning including pressure support and SIMV and the patient is currently on volume cycle assist- control mode of mechanical ventilation on the original settings. On today's evaluation, the pneumothorax is smaller and the air leak is intermittent. Not ready for any form of weaning at this point in time. She still has a significant amount of muscle weakness and motor weakness weaning parameters remain poor and not ready for any weaning yet as of today. #2. Acute COVID 19 related pneumonia, still on prednisone which is a part of the burst taper. The patient is currently off prednisone #3. Generalized motor weakness in all 4 extremities related to critical illness polyneuropathy and myopathy, extensive edema in all 4 extremities, currently on IV Lasix. The patient achieve a negative fluid balance and the edema is improved in all 4 extremities. The motor function has been unchanged compared to yesterday. The patient has a left foot drop #4. Bilateral pneumothoraces requiring bilateral chest tube placements, with subsequent removal and recurrence of right-sided pneumothorax, requiring placeme nt of another chest tube on the right, and subsequent Thoravent placement on 10/25/2021, and subsequent removal of the Thoravent on 10/29/2021 and placement of another right-sided chest tube on 10/29/2021. The air leak is minimal at this point in time and the patient is a small right apical pneumothorax. #5. Acute deep vein thrombosis on Eliquis, no signs of bleeding #6. New-onset A. fib on 10/31/2021, currently in sinus, patient was on Cardizem drip, now on oral Cardizem, remains on Eliquis, currently in sinus rhythm #7. Subcutaneous emphysema resolved #8. Prior history of DVT #9. Increased anxiety #10. Mildly elevated liver enzymes secondary to COVID-19, recovered #11. Nonsustained ventricular tachycardia resolved #12. History of fibromyalgia #13 chronic anemia, multifactorial, expected outcome of prolonged ICU stay #14 critical illness polyneuropathy and myopathy with profound weakness in all 4 extremities. The muscle function is unchanged compared to yesterday Plan Continue ventilator support, The pneumothorax is small and the air leak is intermittent Unable to wean Significant motor weakness Weaning parameters remain poor, not ready for any weaning exercises as the patient continues to have significant motor weakness in all 4 extremities Continue Seroquel Continue BuSpar Continue Eliquis for long-term anticoagulation Continued IV Protonix Continue vital high protein for enteral feeding and nutritional support Continue with the Physical therapy for passive range of motion We'll check weaning parameters, these are being checked on a daily basis. The patient rapid shallow breathing index. She is not ready for any weaning at this point in time. This will be a prolonged wean as the patient has significant amount of motor weakness in all 4 extremities. Condition remains critical and will continue to follow make further accommodation based on her progress. This critically care evaluation was done and more than 30 minutes. Time with Patient: Greater than 30
[2021-11-21] MEDS: LORazepam 2 MG/ML INJ IV PRN ×2 (14:57→21:26)
[2021-11-21] MEDS: SODIUM CHLORIDE 0.9% 1,000 ML IV SCH (16:29)
[2021-11-21 18:11] LABS: Glucose,Whole Blood 164 mg/dL (75-99)
[2021-11-21] MEDS: INSULIN DETEMIR (LEVEMIR) 100 UNIT/ML SYR SQ SCH (20:48)
--- NOTE | 2021-11-21 23:24 | P.PN ---
Subjective Progress Note Date: 11/21/21 Principal diagnosis: Acute hypoxemic respiratory failure secondary to coronavirus associated pneumonia. Mild transaminitis secondary to coronavirus infection. Primary hypercoagulable state in the form of Leiden factor deficiency/factor V deficiency 61-year-old female, with history of DVT/clotting disorder-factor V or Leiden factor deficiency , fibromyalgia, arthritis who presents to the emergency department complaining of difficulty breathing since [place]. Patient states it got progressively worse. Patient states she typically gets bronchitis 3 times here in the past which she thinks this. EMS stated her pulse ox on room air was in the 70s. They put her on a nonrebreather and is still only came up into the 80s. Patient denies chest pain difficulty breathing shortest breath per patient states she did not get COVID vaccine. Patient states she has a blood clotting disorder. Patient is on Coumadin. Patient denies any abdominal pain patient denies nausea vomiting diarrhea. Patient denies headache patient denies any numbness or weakness. Patient denies any syncopal episode. Initially, on room air, her saturations were in the 70s, and on a nonrebreather, only got up into the mid 80s. In addition to the primary hypercoagulable state, she has a history of DVT, fibromyalgia, pneumonia, arthritis, and degenerative disc disease. She is a lifelong nonsmoker. She is getting saline at 50 mL an hour currently. White count 12.1, with a normal hemoglobin, hematocrit, and platelet count. PTT 24.2 INR 2.5, and d-dimer was 32.13. Sodium 1:30, potassium 3.1, chlorides 106, CO2 20, anion gap 12, BUN 47, and creatinine 1.5. Lactic acid was 1.5. AST was 95 with an ALT of 60. Pro- calcitonin level was 0.52. N-terminal proBNP is 259. Chest x-ray reveals diffuse bilateral infiltrates. CT angiogram was negative for pulmonary embolism, but did show diffuse infiltrates consistent with coronavirus pneumonia. 09/25/2021 Patient has been evaluated by pulmonary service; continue to decline on BiPAP and is recommended to be transferred to ICU; plan is for possible intubation and mechanical ventilation if patient continues to deteriorate CT angiogram was negative for pulmonary embolism. White count 17.1, hemoglobin 11.9, hematocrit 37.5, platelet count 390,000. PTT is 33.3 INR is 3.5. Blood g ases done on 100% show pO2 of only 49, pCO2 32, and a pH is 7.42. Sodium is 142, potassium 3.7, chlorides 113, CO2 21, anion gap 8, BUN 35, with a creatinine of 1.01. 09/26/2021 Patient is seen and evaluated in ICU; remains on the ventilator. Patient was intubated after transferred to ICU yesterday Arterial blood gases show pO2 of 82, pCO2 46, and a pH is 7.27. Chest x-ray shows a properly placed endotracheal tube, and diffuse bilateral infiltrates, which are essentially unchanged. White count 14.4, hemoglobin 10.5, hematocrit 32.4, and platelet count 250,000. PTT 34.5 with an INR 3.6. Sodium 143, potassium 4, chlorides 118, CO2 22, anion gap 3, BUN 27, and creatinine 0.95. LDH is 930. C-reactive protein is 16.2. CT angiogram was negative for pulmonary embolism. 11/19/2021; patient is seen and evaluated for follow-up in ICU and discussed with nursing staff. This morning, the patient is off Precedex; following commands and an swering questions. The chest x-ray shows further decrease in the right apical pneumothorax. There is improvement daily which is intermittent at this point in time. Patient remains on a mechanical ventilator. She is an assist-control mode She was on IV Lasix and the patient has been adequately diuresed with improvement in lower extremity edema. Overall fluid balance is +2 34 mL. The patient is receiving vital high protein at the rate of 56 mL an hour. No other complaints otherwise for now. She is tolerating her diet. No nausea. No vomiting. No agitation. No restlessness. Rapid shallow breathing index remains low and the patient continues to be not ready for weaning. She is weari ng medical both in lower extremities bilaterally. Chest tubes in a good location. She is on prednisone. She is also off Precedex. pulmonary service recommendations are noted and appreciated; patient is not ready to be weaned 11/20/2021 Patient is seen and evaluated; remains in ICU; seems to be comfortable Vital signs remained stable with temperature of 98.9, pulse 11, respiration 27 and blood pressure 102/58 Patient remains intubated and mechanically ventilated; chest x-ray completed reveals enlargement of right-sided pneumothorax; chest tube seems to be in good position Patient is currently not ready to be weaned off The patient has a white cell count 12.7 with a hemoglobin 8.8 and platelet count of 295. BUN is at 29 with a creatinine of 0.3 and the sodium level is at 137; tolerating the enteral feeding for nutritional support without any major difficulties. 11/21/2021 Patient is seen and evaluated in room at bedside. Patient remains intubated and mechanically ventilated. Vital signs; temperature 99, pulse 114, respiration 22, and BP of 126/64 Patient remains on assist control weaning parameters remain poor Lab review shoes creatinine of 0.26 WBC of 15.6 Hemoglobin of 9.3 [employer] service on board; continue with ventilator support Continue with weaning trials as able; continue with enteral tube feeding and nutritional support; patient continues to have physical therapy for passive range of motion Prognosis remains guarded Objective - Vital Signs Vital signs: Vital Signs Temp 98.2 F 11/21/21 12:00 Pulse 116 H 11/21/21 15:00 Resp 31 H 11/21/21 15:00 BP 130/81 11/21/21 15:00 Pulse Ox 91 L 11/21/21 15:00 Intake & Output 11/20/21 11/21/21 11/21/21 18:59 06:59 18:59 Intake Total 906 974 594 Output Total 585 665 315 Balance 321 309 279 Weight 86 kg Intake: IV 120 10 70 0.9 NACL 70 Sodium Chloride 0.9% 1, 120 10 000 ml @ 10 mls/hr IV . Q24H [facility] Rx#:[id number] Tube Feeding 696 754 464 Other 90 210 60 Output: Chest Tube Drainage 0 Chest Tube Right Upper 0 Anterior Chest Urine 585 665 315 Other: Voiding Method Indwelling Catheter Indwelling Catheter Indwelling Catheter # Bowel Movements 1 1 ABP, PAP, CO, CI - Last Documented Arterial Blood Pressure 120/111 - Exam PHYSICAL EXAMINATION: GENERAL: The patient is alert and oriented x3, not in any acute distress. Well d eveloped, well nourished. HEENT: Pupils are round and equally reacting to light. EOMI. No scleral icterus. No conjunctival pallor. Normocephalic, atraumatic. No pharyngeal erythema. No thyromegaly. CARDIOVASCULAR: S1 and S2 present. No murmurs, rubs, or gallops. PULMONARY: Scattered wheezing with diffusely decreased breath sound. ABDOMEN: Soft, nontender, nondistended, normoactive bowel sounds. No palpable organomegaly. MUSCULOSKELETAL: No joint swelling or deformity. EXTREMITIES: No cyanosis, clubbing, or pedal edema. NEUROLOGICAL: Gross neurological examination did not reveal any focal deficits. SKIN: No rashes. - Labs CBC & Chem 7: 11/21/21 07:11 11/21/21 07:11 Labs: Abnormal Lab Results - Last 24 Hours (Table) 11/20/21 11/20/21 11/21/21 Range/Units 16:56 23:40 06:44 WBC (3.8-10.6) k/uL RBC (3.80-5.40) m/uL Hgb (11.4-16.0) gm/dL Hct (34.0-46.0) % MCHC (31.0-37.0) g/dL RDW (11.5-15.5) % Neutrophils # (1.3-7.7) k/uL Sodium (137-145) mmol/L Carbon Dioxide (22-30) mmol/L BUN (7-17) mg/dL Creatinine (0.52-1.04) mg/dL Glucose (74-99) mg/dL POC Glucose (mg/dL) 180 H 177 H 162 H (75-99) mg/dL 11/21/21 11/21/21 11/21/21 Range/Units 07:11 07:11 11:39 WBC 15.6 H (3.8-10.6) k/uL RBC 3.46 L (3.80-5.40) m/uL Hgb 9.3 L (11.4-16.0) gm/dL Hct 30.1 L (34.0-46.0) % MCHC 30.8 L (31.0-37.0) g/dL RDW 16.2 H (11.5-15.5) % Neutrophils # 10.2 H (1.3-7.7) k/uL Sodium 134 L (137-145) mmol/L Carbon Dioxide 33 H (22-30) mmol/L BUN 26 H (7-17) mg/dL Creatinine 0.26 L (0.52-1.04) mg/dL Glucose 152 H (74-99) mg/dL POC Glucose (mg/dL) 191 H (75-99) mg/dL Assessment and Plan Assessment: 1. Acute hypoxemic respiratory failure - Patient remains on BiPAP at FiO2 of 100%; keeping O2 saturation barely around 90; we will continue to titrate as able 2. COVID-19 viral pneumonia; pulmonary on board; patient not a candidate for Remdesivir, since onset of symptoms is over one week - Patient has been placed on Decadron, vitamin C, vitamin D3 and sitting - Patient placed on Levaquin from ED which may disqualify her for Baricitnib 3. Hypercoagulable state; factor V Leiden deficiency; INR is therapeutic at 2.5; we will continue with Coumadin and monitor PT/INR daily 4. History of DVT; continue anticoagulation with Coumadin 5. Transaminitis; possibly related to COVID-19 infection; we will monitor liver enzymes periodically 6. History of degenerative disc disease/arthritis; patient takes meloxicam at home and methotrexate at home 7. Fibromyalgia; continue home dose of Mobic 7.5 mg daily DVT prophylaxis; SCDs/Coumadin CODE STATUS; full code
[2021-11-21 23:59] LABS: Glucose,Whole Blood 171 mg/dL (75-99)
[2021-11-22] MEDS: INSULIN ASPART (NovoLOG) 100 UNIT/ML VIAL SQ SCH ×5 (00:42→23:56)
[2021-11-22] MEDS: HYDROmorphone 1 MG/ML 1 ML SYRINGE IVP PRN ×7 (00:43→22:41)
[2021-11-22] MEDS: LORazepam 2 MG/ML INJ IV PRN ×3 (02:59→20:41)
[2021-11-22 05:04] LABS: Glucose,Whole Blood 140 mg/dL (75-99)
[2021-11-22 06:58] LABS: Anisocytosis Slight; Basophils # (A) 0.1 k/uL (0-0.2); Basophils % (A) 0 %; Eosinophils # (A) 0.2 k/uL (0-0.7); Eosinophils % (A) 1 %; HCT 29.3 % (34.0-46.0); HGB 8.8 gm/dL (11.4-16.0); Hypochromasia Marked; Lymphocytes # (A) 3.1 k/uL (1.0-4.8); Lymphocytes % (A) 19 %; MCH 26.6 pg (25.0-35.0); MCHC 30.1 g/dL (31.0-37.0); MCV 88.5 fL (80.0-100.0); Mean Platelet Volume 8.3; Monocytes # (A) 0.8 k/uL (0-1.0); Monocytes % (A) 5 %; Neutrophils # (A) 11.6 k/uL (1.3-7.7); Neutrophils % (A) 72 %; Platelet Count 255 k/uL (150-450); RBC 3.31 m/uL (3.80-5.40); RDW 16.3 % (11.5-15.5); WBC 16.1 k/uL (3.8-10.6)
--- NOTE | 2021-11-22 07:16 | XR ---
EXAMINATION TYPE: XR chest 1V portable DATE OF EXAM: 11/22/2021 COMPARISON: Chest x-ray 11/21/2021 HISTORY: Chest tube, pneumothorax TECHNIQUE: Single frontal view of the chest is obtained. FINDINGS: Tracheostomy tube is overlying the tracheal air column. Bilateral airspace disease is note d left-sided chest tube and PICC line are stable. Small right apical pneumothorax is noted. Cardiac m ediastinal silhouette is stable. IMPRESSION: Similar findings to prior exam. Correlate for pneumonia. Small apical right pneumothorax .
--- NOTE | 2021-11-22 07:55 | P.PN ---
Subjective Progress Note Date: 11/22/21 Principal diagnosis: Continued right-sided pneumothorax despite chest tube placement, acute hypoxic respiratory failure requiring mechanical ventilation, covid pneumonia on admissi on, remains unvaccinated, leukocytosis with low-grade fever, acute DVT to left lower extremity this admission on Eliquis, with history of prior DVT, new diagnosis of paroxysmal atrial fibrillation this admission. Previous medical history of factor V leiden disorder on Coumadin at home The patient was seen and examined this morning laying in bed in the intensive care unit, still being mechanically ventilated. She does open her eyes, follow commands, remains very weak, PT/OT working with daily. Anterior chest tube continues to show air leak with expiration. Objective - Vital Signs Vital signs: Vital Signs Temp 99 F 11/22/21 04:00 Pulse 129 H 11/22/21 07:00 Resp 42 H 11/22/21 07:00 BP 121/59 11/22/21 07:00 Pulse Ox 90 L 11/22/21 07:00 Intake & Output 11/21/21 11/22/21 11/22/21 18:59 06:59 18:59 Intake Total 798 1094 Output Total 415 765 Balance 383 329 Weight 85 kg Intake: IV 100 130 0.9 NACL 100 130 Tube Feeding 638 754 Other 60 210 Output: Chest Tube Drainage 0 0 Chest Tube Right Upper 0 0 Anterior Chest Urine 415 765 Other: Voiding Method Indwelling Catheter Indwelling Catheter # Bowel Movements 1 ABP, PAP, CO, CI - Last Documented Arterial Blood Pressure 120/111 - Exam CONSTITUTIONAL: Appears comfortable, cooperative, no acute distress. RESPIRATORY: Lungs sounds diminished bilaterally. Respirations even, nonlabored. Currently on mechanical ventilation through tracheostomy, ventilator settings this morning were FiO2 50%, tidal volume 400, respiratory ra te 22, peep 3. CARDIOVASCULAR: S1, S2 present. Tachycardia but regular rate and rhythm, sinus tach on telemetry. Palpable peripheral pulses bilaterally. GASTROINTESTINAL: Abdomen soft, nontender, nondistended. Active bowel sounds present 4 quadrants. Tolerating tube feedings through PEG at 58 mL/h GENITOURINARY: Golden present draining clear yellow urine INTEGUMENTARY: Skin is warm and dry NEUROLOGIC: Opens eyes, follows commands, remains very weak INVASIVE LINES AND TUBES: Right-sided double-lumen PICC present. Right-sided anterior pleural chest tube present to wall suction, air leak present with expiration - Allied health notes Allied health notes reviewed: social work - Labs CBC & Chem 7: 11/22/21 06:07 11/21/21 07:11 Labs: Abnormal Lab Results - Last 24 Hours (Table) 11/21/21 11/21/21 11/21/21 Range/Units 07:11 07:11 11:39 WBC 15.6 H (3.8-10.6) k/uL RBC 3.46 L (3.80-5.40) m/uL Hgb 9.3 L (11.4-16.0) gm/dL Hct 30.1 L (34.0-46.0) % MCHC 30.8 L (31.0-37.0) g/dL RDW 16.2 H (11.5-15.5) % Neutrophils # 10.2 H (1.3-7.7) k/uL Sodium 134 L (137-145) mmol/L Carbon Dioxide 33 H (22-30) mmol/L BUN 26 H (7-17) mg/dL Creatinine 0.26 L (0.52-1.04) mg/dL Glucose 152 H (74-99) mg/dL POC Glucose (mg/dL) 191 H (75-99) mg/dL 11/21/21 11/21/21 11/22/21 Range/Units 18:10 23:58 05:03 WBC (3.8-10.6) k/uL RBC (3.80-5.40) m/uL Hgb (11.4-16.0) gm/dL Hct (34.0-46.0) % MCHC (31.0-37.0) g/dL RDW (11.5-15.5) % Neutrophils # (1.3-7.7) k/uL Sodium (137-145) mmol/L Carbon Dioxide (22-30) mmol/L BUN (7-17) mg/dL Creatinine (0.52-1.04) mg/dL Glucose (74-99) mg/dL POC Glucose (mg/dL) 164 H 171 H 140 H (75-99) mg/dL 11/22/21 Range/Units 06:07 WBC 16.1 H (3.8-10.6) k/uL RBC 3.31 L (3.80-5.40) m/uL Hgb 8.8 L (11.4-16.0) gm/dL Hct 29.3 L (34.0-46.0) % MCHC 30.1 L (31.0-37.0) g/dL RDW 16.3 H (11.5-15.5) % Neutrophils # 11.6 H (1.3-7.7) k/uL Sodium (137-145) mmol/L Carbon Dioxide (22-30) mmol/L BUN (7-17) mg/dL Creatinine (0.52-1.04) mg/dL Glucose (74-99) mg/dL POC Glucose (mg/dL) (75-99) mg/dL - Imaging and Cardiology Chest x-ray: report reviewed, image reviewed Assessment and Plan Assessment: 1. Continued right-sided pneumothorax despite chest tube placement, status post anterior chest tube placement by Dr. Gunn 2. Acute hypoxic respiratory failure requiring mechanical ventilation 3. Covid pneumonia on admission, remains on vaccinated 4. Leukocytosis with low-grade fever 5. Acute DVT to left lower extremity this admission on Eliquis, with history of prior DVT 6. New diagnosis of paroxysmal atrial fibrillation this admission, currently in sinus 7. History of factor V leiden disorder on Coumadin at home 8. Multiple other comorbidities Plan: 1. Continue anterior chest tube to continuous wall suction, monitor for resolution of air leak, no intention of removing chest tube until air leak has completely resolved 2. Will monitor daily x-rays 3. Ventilator management per inspector paper products 4. Medical management of other comorbidities per primary care 5. Discharge planning to LTAC in progress, may discharge from our standpoint when okay with other services as long as LTAC will take a chest tube to continuous wall suction 6. Will continue to see daily but will only write notes periodically Time with Patient: Less than 30
[2021-11-22 07:59] LABS: African American GFR (CKD) >90 (>60 ml/min/1.73 sqM); Anion Gap 4 mmol/L; Blood Urea Nitrogen 20 mg/dL (7-17); Calcium 8.4 mg/dL (8.4-10.2); Carbon Dioxide 30 mmol/L (22-30); Chloride 100 mmol/L (98-107); Glucose 179 mg/dL (74-99); Non-African American GFR(CKD) >90 (>60 ml/min/1.73 sqM); Potassium 3.8 mmol/L (3.5-5.1); Sodium 134 mmol/L (137-145)
[2021-11-22] MEDS: ACETAMINOPHEN TAB 500 MG TAB PO PRN (08:00)
[2021-11-22] MEDS: PYRIDOXINE 50 MG TAB PO SCH (10:16)
[2021-11-22] MEDS: QUEtiapine 50 MG TAB PO SCH ×2 (10:16→20:48)
[2021-11-22] MEDS: POTASSIUM BICARBONATE/CIT AC 20 MEQ TABLET.EFF PO SCH ×3 (10:16→20:48)
[2021-11-22] MEDS: APIXABAN 5 MG TAB PO SCH ×2 (10:17→20:48)
[2021-11-22] MEDS: ZINC SULFATE 220 MG CAP PO SCH (10:17)
[2021-11-22] MEDS: CYANOCOBALAMIN 500 MCG TAB PO SCH (10:17)
[2021-11-22] MEDS: FOLIC ACID 1 MG TAB PO SCH (10:17)
[2021-11-22] MEDS: METOPROLOL TARTRATE 50 MG TAB PO SCH ×2 (10:17→20:48)
[2021-11-22] MEDS: busPIRone HCl 5 MG TAB PO SCH ×2 (10:18→20:48)
[2021-11-22] MEDS: PANTOPRAZOLE 40 MG/10 ML VIAL IV SCH (10:18)
[2021-11-22] MEDS: ASCORBIC ACID 500 MG TAB PO SCH ×2 (10:18→20:48)
--- NOTE | 2021-11-22 10:57 | XR ---
EXAMINATION TYPE: XR chest 1V portable DATE OF EXAM: 11/22/2021 COMPARISON: Chest x-ray same dated earlier time HISTORY: Shortness of breath TECHNIQUE: Single frontal view of the chest is obtained. FINDINGS: Lung volumes are low. Bilateral airspace disease persists. Cardiomediastinal silhouette is stable. Tracheostomy tube is overlying the tracheal air column. Right-sided PICC line and chest tube are again noted. There is some pleural thickening noted on the right, difficult to exclude effusion. Pneumothorax appears smaller, less conspicuous on the right. Surgical clips are present right upper quadrant. There are overlying artifacts. IMPRESSION: Expiratory rotated exam. Minimal right apical pneumothorax. Chest tube in place. Correla te for pneumonia, edema, ARDS
--- NOTE | 2021-11-22 11:03 | P.PN ---
Subjective Progress Note Date: 11/22/21 Principal diagnosis: Hypoxemic respiratory failure. Pulmonary consult dated 09/24/2021. 61-year-old female who states that she's been having symptoms, since September 10. The symptoms included shortness of breath, cough, fatigue, muscle aches, and generally just not feeling well. The patient is on vaccinated. She tested positive for coronavirus on September 23. Currently, she is on BiPAP with settings of 16/8, at 100%. Her primary care physician is Dr. Dionte Bal. The patient takes Coumadin chronically for her factor V or Leiden factor deficiency. Initially, on room air, her saturations were in the 70s, and on a nonrebreather, only got up into the mid 80s. In addition to the primary hypercoagulable state, she has a history of DVT, fibromyalgia, pneumonia, arthritis, and degenerative disc disease. She is a lifelong nonsmoker. She is getting saline at 50 mL an hour currently. White count 12.1, with a normal hemoglobin, hematocrit, and platelet count. PTT 24.2 INR 2.5, and d-dimer was 32.13. Sodium 1:30, potassium 3.1, chlorides 106, CO2 20, anion gap 12, BUN 47, and creatinine 1.5. Lactic acid was 1.5. AST was 95 with an ALT of 60. Pro-calcitonin level was 0.52. N-terminal proBNP is 259. Chest x-ray reveals diffuse bilateral infiltrates. CT angiogram was negative for pulmonary embolism, but did show diffuse infiltrates consistent with coronavirus pneumonia. Progress note dated 09/25/2021. 62-year-old female that I saw yesterday in consultation. She's been having coronavirus symptoms since September 10. The patient sees Dr. Dionte Bal as a primary. Yesterday, she was on BiPAP, at 16/8 and 100%. She was doing okay. Today, her saturations are quite low, she is much more tachypnea, and I decided to go ahead and move her to the ICU. The patient may require intubation and mechanical ventilation before the end of the day. CT angiogram was negative for pulmonary embolism. I did speak to her daughter, and her . White count 17.1, hemoglobin 11.9, hematocrit 37.5, platelet count 390,000. PTT is 33.3 INR is 3.5. Blood gases done on 100% show pO2 of only 49, pCO2 32, and a pH is 7.42. Sodium is 142, potassium 3.7, chlorides 113, CO2 21, anion gap 8, BUN 35, with a creatinine of 1.01. Progress note dated 09/26/2021. 62-year-old female, who was admitted with a diagnosis of hypoxemic respiratory failure secondary to coronavirus associated pneumonia. She's had coronavirus symptoms since September 10. Yesterday, she was transferred down to the intensive care unit for worsening respiratory status, and required intubation and mechanical ventilation. In addition, she had a central line placed and an arterial line placed yesterday. She remains on the ventilator, she is on the volume assist control mode, rate 26, tidal volume 400, FiO2 100%, and PEEP of 15. Arterial blood gases show pO2 of 82, pCO2 46, and a pH is 7.27. The patient's getting saline at 50 mL an hour, Nimbex at 1 mcg/kg/m, propofol at 50 mcg/kg/m, and norepinephrine at 2 mcg/m. Tube feedings have yet to be started. Chest x-ray shows a properly placed endotracheal tube, and diffuse bilateral infiltrates, which are essentially unchanged. White count 14.4, hemoglobin 10.5, hematocrit 32.4, and platelet count 250,000. PTT 34.5 with an INR 3.6. Sodium 143, potassium 4, chlorides 118, CO2 22, anion gap 3, BUN 27, and creatinine 0.95. LDH is 930. C-reactive protein is 16.2. CT angiogram was negative for pulmonary embolism. Reevaluated today on 10/08/21, patient remains in the ICU, intubated, mechanically ventilated, does not seem to be doing much better today. Patient is basically about the same, remains on assist control rate of 30 tidal volume 325 FiO2 is up to 85% PEEP remains at 16. Try to increase the PEEP, however there was a significant increase in her peak airway pressure and plateau pressure. Presently her peak airway pressure is 38, and plateau pressure is 34. Patient remains on propofol at 40 mcg/kg/m Nimbex of 0.5 but granted kilo per minute fentanyl 1 mcg/kg/h clevidipine 5 mg per hour. Chest x-ray is basically about the same, continues to show bilateral infiltrates and most likely underlying ARDS. Her labs showed WBC count of 13.0 hemoglobin 10.4. Electrolytes are normal renal profile is normal. ABG showed a pO2 of 61 pCO2 57 pH of 7.47. This was on 75%, and increase her FiO2 to 80% O2 saturation seems to be marginal on the monitor. Patient is off lidocaine drip today. Reevaluated today on 10/09/21, patient remains in the ICU, intubated and mechanically ventilated. Not much of the changes noted in the last few days, remains on assist control rate of 11/18/2024 FiO2 80% and PEEP of 16. ABG remains marginal, her pO2 is 62 pCO2 56 pH of 7.42. Patient remains on Nimbex at 3 mcg/kg/m fentanyl 1 mcg/kg/h propofol 40 mcg/kg/m, she is on clevidipine for milligrams per hour, IV fluids at KVO. Her WBC count is 17.1, and hemoglobin is 11.6. Electrolytes are normal and renal profile is normal. Chest x-ray continues to show multifocalopacities. And subcutaneous emphysema. No evidence of pneumothorax. Endotracheal tube, nasogastric tube and left central line are all in proper positions. Reevaluated today on 10/10/21, patient remains in the ICU, intubated and mechanically ventilated. She is presently on assist control rate of 30 tidal volume 325 FiO2 70% PEEP of 16. Her ABG showed a pO2 of 79 pCO2 48 pH of 7.50. Chest x-ray is basically showing no change. Continues to have bilateral infiltrates. Electrolytes are normal bicarb is 37 BUN is 35 creatinine 0.69 WBC count is 15.6 hemoglobin is 10.7. Patient remains on vital HPI 10 mL per hour. She is off level Prax, and her blood pressure seems to be relatively stable. Patient remains sedated and paralyzed, she is on propofol at 50 mcg/kg/m Nimbex at 3 mcg/kg/m fentanyl 12 mcg/kg/h, she is supposed to undergo tracheostomy and PEG tube placement next week, her Eliquis was restarted, needs to be placed on hold once the decision was made whether she is undergoing tracheostomy and PEG tube tomorrow by Dr. balbuena Progress note dated 10/11/2021. 61-year-old female admitted back on September 23. She came in with a diagnosis of coronavirus associated pneumonia. She came to the intensive care unit on the , and was intubated for respiratory failure on 09/25/2021. The patient remains on mechanical ventilator. The patient's on the volume assist control mode, rate 30, tidal volume 325, FiO2 90%, PEEP of 16. Blood gases show pO2 of 62, pCO2 of 51, and a pH is 7.47. The patient's getting saline at 20 mL an hour, propofol at 40 mcg/kg/m, fentanyl at 1 mcg/kg/h, Nimbex at 3 mcg/kg/m, and vital high protein at 10 mL an hour, which is goal. The patient's chest x-ray showed a left-sided pneumothorax, about 20-25%. A #28-Thai chest tube was inserted today. Also, a fresh arterial line was placed today, and the left radial artery. White count 16.5, hemoglobin 10.6, hematocrit 34.5, platelet count 2 48,000. Sodium 136, potassium 3.6, chlorides 99, CO2 36, anion gap 1, BUN 32, with a creatinine 0.7. Microbiologic studies are all negative. Chest x-ray shows a very properly placed left-sided chest tube, with complete resolution of prior left-sided pneumothorax. Progress note dated 10/12/2021. 61-year-old female admitted back on 09/23/2021. She came in with a diagnosis of coronavirus associated pneumonia. The patient came to the intensive care unit on 09/25/2021, and was intubated on 09/25/2021 for worsening respiratory status. The patient remains on the mechanical ventilator. The patient was to have a tracheostomy and PEG tube placed today, but unfortunately, her hospital course is now been complicated by bilateral pneumothorax, requiring bilateral chest tube placements on October 11, and bleeding from the left chest tube site, since yesterday. That is despite the fact that the patient received fresh frozen plasma, vitamin K, and 4 factor prothrombin complex concentrate. Currently, the patient remains on the volume assist control, rate 30, tidal volume 325, FiO2 90%, and PEEP of 16. Blood gases show pO2 of 74, pCO2 of 58, and a pH is 7.41. The patient's on saline at KVO, propofol at 40 mics per kilogram per minute, Nimbex at 3 mcg/kg/m, fentanyl at 1 mcg/kg/h, norepinephrine at 2 mcg/m, and tube feeds are currently on hold. I did order 1 unit packed red blood cells. I told the nurse to call the physician, they canceled the anticipated surgery today. I was able to speak to the patient's , Taco, at [phone]. He was going to talk to the family about CODE STATUS, and possibly withdrawing life support. White count 17.3, hemoglobin 6.5, down from 10.1, hematocrit 20.4, and platelet count 194,000. PT 10.6 INR 1 PTT fibrinogen 326, and d-dimer is 0.92. Sodium 138, potassium 3.6, chlorides 101, CO2 36, anion gap 1, BUN 30, creatinine 0.69. Sputum is negative. Blood cultures are negative. Chest x-ray shows bilateral chest tubes, without pneumothorax, and diffuse patchy bilateral infiltrates. Progress note dated 10/13/2021. 61-year-old female, admitted back on 09/23/2021. She was admitted with a diagnosis of coronavirus associated pneumonia. He came to the intensive care unit on 09/25/2021, and was intubated on the same day for worsening respiratory status. She remains on mechanical ventilator. The patient was to have a trache ostomy and PEG tube placed, but that was put on hold. She did develop bilateral pneumothoraces, and required bilateral chest tube insertions. At one point, she was bleeding from the left chest tube site. That subsequently, has stopped. She remains on the ventilator, volume assist control, rate 30, tidal volume 325, FiO2 60%, and PEEP of 16. Blood gases show pO2 of 89, pCO2 of 50, and pH is 7. 44. The patient's currently on Nimbex at 3 mics per kilogram per minute, propofol at 50 mcg/kg/m, fentanyl 1 mcg/kg/h, Cleveprex at 11 mg an hour, saline at 20 mL an hour, and vital high protein at 10 mL an hour, which is goal. The tube feeds are currently on hold in anticipation of tracheostomy and PEG tube placement. White count 18, hemoglobin 7.3, hematocrit 22.8, and platelet count 208,000. Sodium 138, potassium 3.6, chlorides 104, CO2 32, anion gap 2, BUN 27, and creatinine 0.62. Microbiologic studies are negative. Chest x-ray shows bilateral chest tubes. No sizable pneumothorax is noted. Subcutaneous air persist. Persistent interstitial densities are noted bilaterally. Progress note dated 10/14/2021. 61-year-old female, admitted back on 09/23/2021. She was admitted with a diagnosis of coronavirus associated pneumonia. She came to the intensive care unit 2 days later, on September 25. She was intubated on the same day, for worsening hypoxemic respiratory failure. The patient is apparently scheduled to have a tracheostomy and PEG tube placement performed today. Tube feeds are on hold. She remains on the ventilator. She is on the volume assist control mode, rate 30, tidal volume 325, FiO2 70%, and PEEP of 16. Arterial blood gases on 60%, show pO2 of 53, pCO2 of 57, and pH is 7.38. The patient's on Cleveprex at 4 mg an hour, fentanyl 1.5 mcg/kg/h, Nimbex at 3 mcg/kg/m, propofol at 50 mcg/kg/m, and saline at KVO. The patient is again seen in room 253. White count was 21.7. Hemoglobin 8.7, hematocrit 27.4, and platelet count was normal. Sodium 138, potassium 3.4, chlorides 103, CO2 35, BUN 25, and creatinine 0.59. Chest x-ray shows improving bilateral infiltrates. Progress note dated 10/15/2021. 61-year-old female, admitted back on 09/23/2021. She is again seen in room 253. She was admitted with a diagnosis of coronavirus associated pneumonia. She came to the intensive care unit on 09/25/2021. She was intubated on 09/25/2021, for worsening respiratory status. The patient underwent tracheostomy and PEG tube placement yesterday, 10/14/2021. She remains on the ventilator. She is on the volume assist control mode, rate 30, tidal volume 325, FiO2 60%, to be dropped down to 50%, and a PEEP of 16. Blood gases show pO2 of 93, pCO2 61, pH is 7.35. The patient is on saline at KVO, propofol at 40 mcg/kg/m, Nimbex at 3 mcg/kg/m, and fentanyl 1 mcg/kg/h. The patient's also on norepinephrine at 2 mcg/m. Tube feedings are on hold. The patient has [address] This is slightly from the right chest tube. Thus far, microbiology is negative. We will discontinue the Diflucan. Currently, the patient is not on any antibiotics. We'll resume the patient's Eliquis, at 5 mg twice a day. White count 21.5, hemoglobin 8.3, hematocrit 27.2, and platelet count normal. Sodium 137, potassium 3.9, chlorides 104, CO2 32, anion gap 1, BUN 22, and creatinine 0.52. Chest x-ray shows patchy bilateral lung infiltrates. Progress note dated 10/16/2021. 61-year-old female, admitted back on 09/23/2021. The patient was again seen in room 253. She was admitted with a diagnosis of coronavirus associated pneumonia. She came to the intensive care unit on September 25. She was intubated on 09/25/2021. The patient underwent tracheostomy and PEG tube placement on 10/14/2021. She remains on the ventilator. Currently, she is on the volume assist control mode, rate 30, with a respiratory rate of 33. Tidal volume is 325. FiO2 60%, and PEEP of 16. Blood gases show pO2 of 80, pCO2 of 58, and a pH is 7.41. The patient is currently on propofol at 50 mcg/kg/m, saline at 20 mL an hour, Nimbex at 5 mcg/kg/m, and fentanyl 1.5 mcg/kg/h. The patient's also getting Cleveprex 5 mg an hour, and vital 1.2 at 10 mL an hour, which is goal. Chest x-ray shows no change. Microbiologic studies are currently negative. There is a small intermittent leak from the right-sided chest tube. The left- sided chest tube shows no leak so ever. The patient should be paralyzed, but apparently is overbreathing the ventilator. We will switch to a different paralytic. In addition, the ventilator may need to be switched out. White count 16.9, hemoglobin 8.9, hematocrit 29.2, and platelet count 278,000. Sodium 137, potassium 3.6, 2, CO2 33, anion gap 2, BUN 19, and creatinine 0.5. Progress note dated 10/17/2021. 61-year-old female, admitted back on 09/23/2021. The patient was again seen in room 253. She was admitted with a diagnosis of coronavirus associated pneumonia. She came to the intensive care unit on 09/25/2021, and was intubated on the same day. The patient underwent tracheostomy and PEG tube placement on 10/14/2021. She remains on the ventilator. Yesterday, or having issues with her tracheostomy tube. Her returned tidal lines were much lower than that should've been. We were able to do a bronchoscopy, suction her airway, and reposition the tracheostomy tube, which I believe was against the wall of the trachea. Currently, she is doing much better. She is on the volume assist control mode, rate 30, tidal volume 420, FiO2 80%, and PEEP of 16. Blood gases show a PaO2 of 69, pCO2 of 48, pH is 7.46. The patient is on propofol at 50 mcg/kg/m, saline at 20 mL an hour, fentanyl 1.5 mcg/kg/h, and rocuronium at 11 mcg/kg/m. The patient is also getting vital 1.2 at 10 mL an hour, which is goal. Today we will attempt to wean the FiO2. In addition, the patient will need a new arterial line, at the right radial site. Current labs include a white count 15.8, hemoglobin 8.2, hematocrit 24.4, and platelet count 271,000. Sodium 136, potassium 3.1, chlorides 100, CO2 32, anion gap 4, BUN 21, and creatinine 0.48. Chest x-ray today, shows diffuse infiltrates, and is largely unchanged. On 11/02/2021 patient seen in follow-up in the intensive care unit, she remains trached to the ventilator, sedated, currently on assist-control with a rate of 26, tidal M3 50, FiO2 of 55% and PEEP of 14. This morning's blood gas shows pO2 of 150, pCO2 of 67, and pH of 7.37, this was done on FiO2 of 70%, and FiO2 has been decreased down to 55%. Today's chest x-ray shows stable right upper lobe pneumothorax despite [address], persistent multifocal confluent increased opacity consistent with COVID-19 infection, no significant change from one day earlier. Patient is currently sedated with Diprivan at 65 mics per kilo per minute, fentanyl infusion at 2.5 mics per kilo per minute, 0.9 normal saline at a rate of 20 ML per hour, patient is on tube feedings at 10 mL per hour, with a goal of 10. Patient has [address], the medial chest tube has no air leak, remains to wall suction, and more lateral right-sided chest tube has intermittent air leak and remains to wall suction. Patient has been off the Cleviprex since yesterday morning at 10:45 in the morning, patient was placed on metoprolol 50 mg twice daily, and she remains on oral Cardizem 30 mg 4 times daily and Eliquis for new onset atrial fibrillation . Yesterday we had dexamethasone DC'd and place the patient on prednisone 60 mg daily. In addition patient is an +1.3 L net fluid balance over the last 24 hours, and patient will be given a dose of Lasix. Her oxygenation seems to have improved on today's blood gas, and we were able to contact the FiO2 down to 55%. She's had no acute events overnight. The rest of her blood work has been reviewed her white blood cell count is 7.2, hemoglobin is 8.9, platelet count is 304, sodium is 136, potassium is 4.0, chloride is 97, CO2 is 37, B1 is 20 creatinine 0.37. Her sp utum culture showed Corynebacterium species, and blood cultures have been negative. Patient has received 5 day course of Levaquin which can be discontinued at this time, her procalcitonin level was negative at 0.23. On November 03, 2021 patient seen in follow-up in intensive care unit. she remains trached to the ventilator, sedated, she is on control with a rate of 26, tidal 350, FiO2 55% and PEEP of 14. This morning's blood gas shows pO2 of 76, pCO2 of 60, and pH of 7.45. Her peak airway pressures 26, and plateau pressure of 30. Today's chest x-ray shows stable portable chest, 2 right-sided chest tubes, right-sided pneumothorax is unchanged compared to yesterday, there are scattered interstitial and alveolar infiltrates throughout both lungs unchanged. Patient is currently sedated on Diprivan at 55 mics per kilo per minute, fentanyl drip has been discontinued, patient has been getting intermittent doses of IV Dilaudid for discomfort. Patient has been hypertensive especially during periods of agitation, and sedation holidays. Yesterday patient was off sedation for 30 minutes, did not follow purposeful command. she did however become agitated, restless, and her vital signs were becoming unstable, she was very dyssynchronous with the ventilator, and she had to be placed back on sedation. Today's labs have been reviewed, her white blood cell count is 7.8, hemoglobin is 9.3, platelet count is 353, sodium is 139, potassium is 3.3, this is being replaced per protocol, in addition to scheduled doses of K-Lyte 20 in the every 3 times daily, chloride is 98, CO2 39, BUN is 19 creatinine 0.30. Patient is receiving nutrition with vital hypertension at a rate of 47 with a goal of 47 and standard water flushes. She has had no acute events overnight, she still has [address], the medial chest tube is positive for intermittent air leak, and lateral chest tube on the right side shows no air leak. Patient continues on prednisone 60 mg daily, she is on oral Cardizem, and Eliquis for anticoagulation, she remains in A. fib with a controlled rate. On 11/04/2021 patient seen in follow-up in the intensive care, she remains trached to the ventilator, she is currently not on any sedation since 4:00 yesterday afternoon. She is on assist-control with a rate of 26, tidal on his 350, FiO2 50% and PEEP of 14, this morning blood gas shows pO2 of 73, pCO2 52 and pH of 7.47. She is currently on no drips other than 0.9 normal saline at a rate of 20 ML per hour, patient has been off all sedation since yesterday 4:00 PM. Yesterday afternoon patient had developed bradycardia, with sinus pauses and the heart rate was down to 38, patient was hypotensive, Precedex was discontinued, and patient had recovered. She has not responded to any verbal stimuli, she grimaces to painful stimuli, does not follow instructions. Today's chest x-ray shows small to moderate size right pneumothorax with slight interval increase in size, currently at 3.7 cm at the apex versus 2.5 cm previously, and cardiomegaly and diffuse groundglass interstitial changes that are similar in appearance to yesterday's chest x-ray. Patient still has 2 right-sided chest tubes in place with intermittent air leaks alternating between the 2. Both chest tubes remained to wall suction. Patient is currently in sinus mechanism, slightly tachycardic with a rate of 115 BPM, currently remains on oral Cardizem 30 mg 4 times a day, Eliquis 5 mg twice a day, Lopressor 50 mg twice a day, she remains on Norvasc 10 mg daily and losartan 12.5 mg daily. Cleviprex has been off since yesterday. Blood pressure seems to be better controlled on today's exam. Patient has been afebrile. She is tolerating tube feedings. Today's labs have been reviewed, white blood cell, 10.5, hemoglobin is 9.4, platelet count is 397, sodium is 140, potassium 3.6, chloride is 101, CO2 36, B1 is 21 creatinine 0.3. The patient's family has been receiving daily updates on patient's condition from the nursing staff, at this time they're considering patient's CODE STATUS. Patient has been hospitalized for a total of 42 days, 40 days on the ventilator support. Patient has been maximizing medical treatment, currently she has not shown significant improvement, and has developed multiple complications along the way. Neurologically patient has not woken up, or followed any instructions. We will proceed with CT of the brain without contrast today. Patient's family has been updated by the nursing staff Progress note dated 11/05/2021. The patient is again seen in the intensive care unit, room 253. The patient is now been in the hospital for 43 days. The patient remains on the mechanical ventilator. The family did make the patient a DO NOT RESUSCITATE patient, yesterday. She is on the volume assist control, rate 26, tidal volume 350, FiO2 50%, and PEEP of 14. Her tear blood gases show pO2 of 74, pCO2 56, and pH is 7.42. The patient's getting saline at 50 mL an hour, propofol at 10 mcg/kg/m, a nd vital high protein at 40 mL, with a goal of 55 mL an hour. She had a brain CT, that was negative for anything acute. She has a right apical pneumothorax on chest x-ray. She has 2 right-sided chest tubes in place. White count 10.5, hemoglobin 9.3, hematocrit 31.5, platelet count 427,000. Sodium 140, potassium 3.5, chlorides 106, CO2 36, anion gap -2, BUN 20, creatinine 0.34. Chest x-ray shows a right apical pneumothorax, which may be slightly better. Progress note dated 11/06/2021. 61-year-old female again seen in the intensive care unit, room 253. She's now been in the hospital for 44 days. She was admitted with a diagnosis of coronavirus associated pneumonia. The patient remains on mechanical ventilator. She is currently on pressure regulated volume control ventilation, with a targeted tidal volume of 400, inspiratory time of 0.8 seconds, rate of 26, FiO2 of 50%, and a PEEP of 14. Blood gases show pO2 of 57, pCO2 44, and pH is 7.5. Saturations are 91-92%. The patient's getting saline at 50 mL an hour and vital high protein at 46 mL an hour, which is goal. She has 2 right-sided chest tubes. There is bit of a leak. The pneumothorax on the right is slightly large r. The patient is now a DO NOT RESUSCITATE patient. White count 14.4, hemoglobin 9, hematocrit 29.1, platelet count 409,000. Sodium 139, potassium 3.6, chlorides 105, CO2 34, BUN 23, and creatinine 0.28. Calcium is 8.6. Chest x-ray shows diffuse bilateral infiltrates. There is a right-sided apical pneumothorax. It may be a bit bigger. Two right-sided chest tubes are noted. Progress note dated 11/07/2021. 61-year-old female again seen in the intensive care unit, room 253. The patient has been here in the hospital now for 45 days. She was admitted with a diagnosis of coronavirus associated pneumonia. She remains on mechanical ventilator. She is on the VC plus modality, with a targeted tidal volume of 400, and inspiratory time of 0.8 seconds. Her set rate is 26 with a spontaneous rate of 30, FiO2 50%, and a PEEP of 14. Blood gases are excellent with a pO2 of 73, pCO2 41, and a pH is 7.49. The patient's on saline at 50 mL an hour, and vital high protein at 46 mL an hour, which is goal. The patient has 2 chest tubes on the right, one of which has a intermittent leak. The patient's arterial line is been in for quite some time. Will be discontinued, and the tip cultured. The patient will also have blood urine and sputum cultures. White count 16.2, hemoglobin 9, hematocrit 29.7, and platelet count 416,000. Sodium 139, potassium 3.4, chlorides 111, CO2 29, BUN 18, creatinine 0.3. Calcium is 8.3. Chest x-ray shows a small right-sided pneumothorax. It's actually a bit smaller than it was before. Diffuse bilateral groundglass opacities are noted. Progress note dated 11/22/2021. 61-year-old female, again seen in room 253. Patient has been in the hospital n for 16 days. I saw the patient last on November 07. She was admitted with a diagnosis of coronavirus associated pneumonia. She remains on the mechanical ventilator. She is a DO NOT RESUSCITATE patient. The patient is on volume assist control, with a rate of 22, tidal volume 400, FiO2 50%, with a PEEP of 3. No blood gases were done. The patient's on saline at 10 mL an hour, and vital high protein at 50 mL an hour, which is goal. There is a intermittent leak from the right chest tube. We'll determine the last time the patient received any sort of bleeding. We apparently waiting for transfer to long-term acute care. One thing holding that up in the right-sided chest tube. White count 16.1, hemoglobin 8.8, hematocrit 29.3, platelet count normal. Sodium 134, potassium 3.8, chlorides 100, CO2 30, anion gap 4, BUN 20, with a creatinine 0.27. Chest x-ray shows a minimal right apical pneumothorax. Bilateral airspace disease is noted, as a sequelae of coronavirus pneumonia. Objective - Vital Signs Vital signs: Vital Signs Temp 99.0 F 11/22/21 09:00 Pulse 125 H 11/22/21 10:00 Resp 47 H 11/22/21 10:00 BP 88/45 11/22/21 10:00 Pulse Ox 87 L 11/22/21 10:00 Intake & Output 11/21/21 11/22/21 11/22/21 18:59 06:59 18:59 Intake Total 798 1094 186 Output Total 415 765 60 Balance 383 329 126 Weight 85 kg Intake: IV 100 130 40 0.9 NACL 100 130 40 Tube Feeding 638 754 116 Other 60 210 30 Output: Chest Tube Drainage 0 0 Chest Tube Right Upper 0 0 Anterior Chest Urine 415 765 60 Other: Voiding Method Indwelling Catheter Indwelling Catheter # Bowel Movements 1 ABP, PAP, CO, CI - Last Documented Arterial Blood Pressure 120/111 - Exam No acute distress , with a midline tracheostomy tube. HEENT examination is grossly unremarkable. Neck supple. Full range of motion. No adenopathy thyromegaly or neck vein distention. Midline tracheostomy tube is noted. Cardiovascular examination reveals regular rhythm rate. S1-S2 normal. No S3 or S4. No discernible murmur noted. Heart rate 119 bpm. Heart sounds are distant. Lungs reveal coarse bilateral rhonchi. Breath sounds are equal bilaterally. No wheezes. No crackles. Saturations are 94 %. The patient has 1 chest tubes on the right. Abdomen soft, without bowel sounds. No masses. A PEG tube is noted. Extremities are intact. No cyanosis clubbing or edema. Skin is without rash or lesion. Neurologic examination reveals a somewhat responsive white female. - Labs CBC & Chem 7: 11/22/21 06:07 11/22/21 06:07 Labs: Abnormal Lab Results - Last 24 Hours (Table) 11/21/21 11/21/21 11/21/21 Range/Units 11:39 18:10 23:58 WBC (3.8-10.6) k/uL RBC (3.80-5.40) m/uL Hgb (11.4-16.0) gm/dL Hct (34.0-46.0) % MCHC (31.0-37.0) g/dL RDW (11.5-15.5) % Neutrophils # (1.3-7.7) k/uL Sodium (137-145) mmol/L BUN (7-17) mg/dL Creatinine (0.52-1.04) mg/dL Glucose (74-99) mg/dL POC Glucose (mg/dL) 191 H 164 H 171 H (75-99) mg/dL 11/22/21 11/22/21 11/22/21 Range/Units 05:03 06:07 06:07 WBC 16.1 H (3.8-10.6) k/uL RBC 3.31 L (3.80-5.40) m/uL Hgb 8.8 L (11.4-16.0) gm/dL Hct 29.3 L (34.0-46.0) % MCHC 30.1 L (31.0-37.0) g/dL RDW 16.3 H (11.5-15.5) % Neutrophils # 11.6 H (1.3-7.7) k/uL Sodium 134 L (137-145) mmol/L BUN 20 H (7-17) mg/dL Creatinine 0.27 L (0.52-1.04) mg/dL Glucose 179 H (74-99) mg/dL POC Glucose (mg/dL) 140 H (75-99) mg/dL Assessment and Plan Assessment: Acute hypoxemic respiratory failure secondary to coronavirus associated pneumonia, status post intubation, and mechanical ventilation on 09/25/2021, with tracheostomy and PEG tube placement on 10/14/2021. No evidence of pulmonary embolism on CT angiogram. Acute bilateral pneumothoraces, status post bilateral chest tube placements, on 10/11/2021. Currently, no left-sided chest tube, and 1 chest tube on the right. Status post bronchoscopy, on 10/16/2021, to reposition the tracheostomy tube. Acute blood loss anemia. New-onset atrial fibrillation, stable. Extensive subcutaneous emphysema, as a complication of mechanical ventilation and coronavirus associated pneumonia. Acute deep vein thrombosis. Mild transaminitis secondary to coronavirus infection. Primary hypercoagulable state in the form of Leiden factor deficiency/factor V deficiency. Nonsustained ventricular tachycardia, resolved. Prior history of DVT. History of fibromyalgia. History of arthritis. History of degenerative disc disease. Lifelong non-tobacco user. Plan: Plan dated 09/24/2021. The patient is not a candidate for REM, and she's had symptoms for more than 7 days. Actually sees, symptoms date back to September 10. 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 The patient does qualify for Decadron. In addition, the patient should be on vitamin C, vitamin D3, and zinc. Additional recommendations and suggestions are forthcoming. Prognosis is guarded. The patient is currently on Levaquin. That may disqualify her from [facility]. Plan dated 09/25/2021. The patient's blood gases suggests worsening respiratory status, and therefore, the patient was transferred down to the intensive care unit. The patient was on saline, at 50 mL an hour. Blood gases again showed a pO2 of only 49, and a pCO2 32, with a pH is 7.42. This is on BiPAP, at 100%. I did speak to her and her about the fact that she may require intubation and mechanical ventilation, before the end of the day. She will continue on Coumadin, as well as Decadron, and vitamins. The patient was placed on Levaquin. Her pro- calcitonin level was elevated. This likely disqualifies her for [facility]. We will continue to follow and make recommendations where appropriate. Prognosis is certainly guarded. Plan dated 09/26/2021. The patient was intubated and mechanically ventilated yesterday. A right radial art line was placed as was a left-sided triple-lumen catheter. The patient's currently sedated and paralyzed. Tube feedings will start today. She did get fluid resuscitation yesterday. She remains on a small dose of norepinephrine. The patient will have labs ordered for the morning including a CBC, basic metabolic profile, and blood gas. The patient remains on Coumadin. In addition, the patient will have a chest x-ray ordered for the morning. Tube feedings will be started today. Prognosis is guarded. We will continue to follow and make recommendations where appropriate. Prognosis is certainly very guarded. Plan dated 10/11/2021. Labs, x-rays, and medications are reviewed. A left-sided chest tube was placed by our team today. In addition, surgery has been consulted for possible tracheostomy and PEG tube placement. The patient remains on propofol, fentanyl, and Nimbex. The patient is on the mechanical ventilator, on 90% FiO2 and PEEP of 16. Additional recommendations and suggestions are forthcoming. Tube feedings are currently going to be placed on hold for possible tracheostomy and PEG tube placement. We will continue to follow and make recommendations where appropriate. Plan dated 10/12/2021. The patient developed bilateral pneumothoraces, and required bilateral chest tube placements, on October 11. There is some bleeding from the left-sided chest tube. The patient did receive vitamin K, fresh shows some plasma, and 4 factor prothrombin complex concentrate. In addition, the patient is going to receive 1 unit of packed red blood cells. I asked the nurse to call the surgeon to delay surgery. I was able to speak to the patient's , Taco. He is going to talk to the rest of the family about CODE STATUS and whether or not they wish to withdrawal of I support. I spoke to him for about 20 minutes on the phone. The patient remains on propofol, fentanyl, Nimbex, and norepinephrine. Prognosis is poor. We will continue to follow and make rec ommendations where appropriate. Plan dated 10/13/2021. The patient hopefully will proceed to tracheostomy and PEG tube placement. The patient's currently much more stable today than she was yesterday. We did talk to the about CODE STATUS. He has not made any decision as yet. The patient remains on Nimbex, propofol, and fentanyl. The patient is also receiving Cleveprex for elevated blood pressure. We will continue to follow make recommendations where appropriate. Prognosis is guarded. Labs, x-rays, and medications are all reviewed. Plan dated 10/14/2021. The patient should have a tracheostomy and PEG tube placed today. Currently, the patient remains on fentanyl, Nimbex, and propofol. In addition, the patient's on Cleveprex for blood pressure control. The patient's FiO2 was increased from 60% up to 70%, based on the blood gas today. We will continue to follow and make recommendations where appropriate. Labs, x-rays, and medications are all reviewed. Prognosis is guarded. I did speak to the about CODE STATUS. The patient is full code for now. Plan dated 10/15/2021. The patient had a tracheostomy and PEG tube placed on October 14. The patient remains on propofol, Nimbex, and fentanyl. We will attempt to discontinue the Nimbex at possible. The patient is started back on Eliquis, at 5 mg twice a day. Currently, we are going to DC Diflucan. There is a small air leak on the right chest tube area chest x-ray does not show any evidence of pneumothorax. She does have bilateral diffuse infiltrates. Currently, the patient is a full code. I did speak to the a couple days ago. Prognosis is guarded. We will continue to follow make recommendations where appropriate. The patient has now been in the hospital for 22 days. Plan dated 10/16/2021. The patient had a tracheostomy tube placed and PEG tube placement on October 14. The patient remains on Nimbex fentanyl and propofol. Interestingly, she does not appear that she is properly paralyzed. We may need to change to different paralytic or change off the ventilator. The patient remains on Cleveprex at 5 mg an hour. The patient's microbiologic studies are negative. Chest x-ray shows no changes. Additional recommendations and suggestions are forthcoming. We will continue to follow make recommendations where appropriate. Culture data as mentioned is negative. The patient is not on any antibiotics. Prognosis is guarded. Plan dated 10/17/2021. The patient had a bronchoscopy performed yesterday, to help reposition the tracheostomy tube. I believe that was up against the wall of the trachea. The patient's exhaled tidal volumes are much lower than that should've been. The patient remains on rocuronium, fentanyl, and propofol. In addition, the patient had a new arterial line placed, in the right radial artery. The other arterial line was not working properly. Culture data thus far negative. The patient is currently not on antibiotics. We will continue to follow and make recommendations where appropriate. Prognosis is guarded. I did speak to the patient's and daughter yesterday. Plan dated 11/05/2021. Currently, the patient seems be about the same today as she was yesterday. Chemical ventilation. Her propofol dose is 10 mcg/kg/m. She is getting tube feedings. She has 2 right-sided chest tube. Because of mental status changes, she had a computed tomography scan of the brain yesterday, which showed no acute abnormality. Her chest x-ray shows a right apical pneumothorax, which is slightly better today than it was yesterday. There is no left-sided chest tube. There are 2 chest tubes on the right. We will continue to follow make recommendations were appropriate. Overall prognosis remains very guarded. I have talked to the family in the past. Plan dated 11/06/2021. The patient seems about the same today as she was yesterday. The right-sided pneumothorax is just a bit larger. There is a small leak from one of the chest tubes. She remains on mechanical ventilation. Currently, she's not receiving any sedation. Yesterday, we changed to pressure regulated volume control ventilation or VC plus. She seems to be doing better with that mode. The patient remains on tube feedings. The patient is now a DO NOT RESUSCITATE patient. We will continue to follow make recommendations where appropriate. Prognosis is certainly guarded. We have been in contact with the family, and giving them updates, as necessary. Plan dated 11/07/2021. The patient is about the same today as she was yesterday. She has been off of propofol for a number of days. The right-sided pneumothorax today is a bit smaller. She has 2 right-sided chest tubes. The patient continues on pressure regulated volume control mode of ventilation. The patient is now a DO NOT RESUSCITATE as per the family. Labs, x-rays, and medications are all reviewed. The arterial line will be discontinued in the tip will be cultured. In juan carlos tion, because of slight temperature elevation, the patient will have blood sputum and urine cultures. The patient is currently off all antibiotics. Prognosis is very guarded. We will continue to follow make recommendations where appropriate. Plan dated 11/22/2021. A repeat chest x-ray, revealed no significant change. A small right apical pneumothorax is noted. Labs, x-rays, and medications are all reviewed. The patient is a DO NOT RESUSCITATE patient. The patient still has a small inter mittent leak from the right-sided chest tube. We will continue to follow make recommendations where appropriate. Overall prognosis remains very guarded. The patient will get an extra dose of Ativan today. No additional recommendations are made. Time with Patient: Greater than 30
[2021-11-22] MEDS ORDERED: LORazepam 2 MG/ML INJ IV STA (11:11)
[2021-11-22 11:23] VITALS: BMI 34.2
[2021-11-22 11:30] LABS: Glucose,Whole Blood 192 mg/dL (75-99)
[2021-11-22] MEDS: SODIUM CHLORIDE 0.9% 1,000 ML IV SCH (15:11)
[2021-11-22 18:07] LABS: Glucose,Whole Blood 157 mg/dL (75-99)
[2021-11-22] MEDS ORDERED: HALOPERIDOL LACTATE 5 MG/ML 1 ML VIAL IVP PRN (20:42)
[2021-11-22] MEDS: INSULIN DETEMIR (LEVEMIR) 100 UNIT/ML SYR SQ SCH (20:48)
[2021-11-22 23:41] LABS: Glucose,Whole Blood 191 mg/dL (75-99)
--- NOTE | 2021-11-23 00:52 | XR ---
EXAMINATION TYPE: XR chest 1V portable DATE OF EXAM: 11/23/2021 COMPARISON: Yesterday HISTORY: Hypoxemia TECHNIQUE: Single view FINDINGS: There is moderate pulmonary interstitial and airspace edema. There is right subclavian cath eter with tip in the superior vena cava. There is tracheostomy tube. There is right-sided chest tube. There is apparent right apical pneumothorax. There is also some lucency at the right cardiac border consistent with additional pneumothorax. Heart shifted slightly to the left side. chest tube over th e right lateral lung field. Trachea is midline. IMPRESSION: There is right-sided pneumothorax that appears new or increased compared to yesterday. Th ere is probably some degree of tension. Heart shifted slightly to the left side. This is suggestive o f right chest tube malfunction. Follow-up recommended.
[2021-11-23] MEDS ORDERED: NOREPINEPHRIN 4 MG-0.9% NS PMX 4 MG/250 ML ML IV ONE (01:07)
[2021-11-23] MEDS ORDERED: CISATRACURIUM 2 MG/ML 5 ML VIAL IV ONE ×2 (01:19→01:35)
[2021-11-23 01:41] LABS: ABG Base Excess 10.1 mmol/L; ABG HCO3 35 mmol/L (21-25); ABG PCO2 62 mmHg (35-45); ABG PH 7.36 (7.35-7.45); ABG PO2 108 mmHg (83-108); ABG TCO2 37 mmol/L (19-24); Allen Test Performed? Yes
[2021-11-23] MEDS ORDERED: CISATRACURIUM 200 MG in SODIUM CHLORIDE 0.9% 180 ML IV SCH (01:45)
[2021-11-23] MEDS ORDERED: METOPROLOL TARTRATE 5 MG/5 ML VIAL IVP PRN (01:50)
[2021-11-23] MEDS ORDERED: METOPROLOL TARTRATE 5 MG/5 ML VIAL IVP ONE (01:54)
[2021-11-23] MEDS: ROCURONIUM 400 MG in SODIUM CHLORIDE 0.9% 100 ML IV SCH ×2 (02:19→10:25)
--- NOTE | 2021-11-23 02:23 | XR ---
EXAMINATION TYPE: XR chest 1V portable DATE OF EXAM: 11/23/2021 COMPARISON: Today HISTORY: Hypoxemia TECHNIQUE: Single view of the chest FINDINGS: There is a second right-sided chest tube placed. There is soft tissue air on the right late ral chest wall. Heart is in the midline. There is no evidence of shift of heart to the left side evid ent on the recent exam. There is tracheostomy tube. There is pulmonary interstitial and airspace maynor a. There are chest leads. There is small right apical pneumothorax. IMPRESSION: There is improvement in the right-sided pneumothorax compared to exam one hour ago. Clear ing of the air at the right cardiac border. Pulmonary edema unchanged.
[2021-11-23] MEDS: HYDROmorphone 1 MG/ML 1 ML SYRINGE IVP PRN (02:25)
--- NOTE | 2021-11-23 02:29 | XR ---
EXAMINATION TYPE: XR chest 1V portable DATE OF EXAM: 11/23/2021 COMPARISON: Today HISTORY: Chest tube replaced TECHNIQUE: Single view FINDINGS: There are 2 right-sided chest tubes appearing in good position. There is mild soft tissue a ir right lateral chest wall. There is patchy pulmonary edema. There is small right apical pneumothora x approximately 10%. No evidence of tension. Trachea is midline. There is tracheostomy tube. There is right subclavian catheter with tip in the right atrium. There are chest leads. IMPRESSION: Small right apical pneumothorax. No evidence of tension. Pulmonary edema unchanged.
[2021-11-23] MEDS ORDERED: HYDROmorphone 1 MG/ML 1 ML SYRINGE IVP PRN (03:09)
[2021-11-23 05:28] LABS: Glucose,Whole Blood 156 mg/dL (75-99)
[2021-11-23] MEDS: INSULIN ASPART (NovoLOG) 100 UNIT/ML VIAL SQ SCH (05:29)
[2021-11-23 06:10] LABS: ABG Base Excess 7.5 mmol/L; ABG HCO3 35 mmol/L (21-25); ABG Oxygen Saturation 95.2 % (94-97); ABG PH 7.23 (7.35-7.45); ABG PO2 89 mmHg (83-108); ABG TCO2 38 mmol/L (19-24); Allen Test Performed? Yes
[2021-11-23 06:34] LABS: ABG PCO2 85 mmHg (35-45)
[2021-11-23 07:10] VITALS: PULSE 125; RESP 26
--- NOTE | 2021-11-23 07:53 | XR ---
EXAMINATION TYPE: XR chest 1V portable DATE OF EXAM: 11/23/2021 Comparison: 11/23/2021 Clinical History: 61 year-old female follow-up pneumothorax Findings: Tracheostomy cannula. Patient rotated towards the left. Right PICC tip cavoatrial junction. 2 right-s ided chest tubes are redemonstrated. The more superiorly positioned chest tube again shows its tip ex tending lateral to the thoracic wall. Bilateral patchy and confluent airspace opacity persists. Heart overall normal size. Right apical pneumothorax redemonstrated along with mild subcutaneous emphysema on the right. The pleural legs for the right-sided apical pneumothorax is not well seen likely due t o superimposition artifacts. Estimated 4.3 cm from the apical margin versus 2.5 cm, previously. Impression: 1. 2 right-sided chest tubes remain in place. The more superiorly positioned chest tube again shows i ts tip extending outside the thoracic wall suggesting that it is malpositioned, clinically correlate. 2. Ongoing right apical pneumothorax. The pleural edge is difficult to identify on the current exam l ikely due to superimposition. Estimated at 4.3 cm versus 2.5 cm, previously. 3. Continued bilateral patchy and confluent airspace disease.
--- NOTE | 2021-11-23 08:48 | P.PN ---
Subjective This is a 61-year-old female who was recently admitted with acute COVID-19 pneumonia with acute COVID-19 bilateral interstitial pneumonia and also with transaminitis and being closely monitored. Patient remains in the ICU and currently intubated and sedated with an FiO2 of 70% and PEEP is 18. 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 Patient did have a venous Doppler study done recently which showed left leg DVT and patient is maintained on Eliquis will continue. Patient also continues on empiric antibiotics and awaiting for sputum culture finalized. Patient was started on IV cefepime and will continue. Patient is also continued on oral dexamethasone along with vitamin and zinc supplements and will continue. Patient with some mild volume overload and given a dose of IV L asix push today. 11/03/2021 Patient is seen in follow-up this morning and continues to be closely monitored in the ICU with multiple medical consultations following. Per nursing staff working on weaning sedation and is currently off propofol to assess and no responses noted and patient is not following commands. FiO2 titrated down to 45% with a PEEP of 14 and currently on Precedex for hypertension. Chest xray shows stable scattered interstitial and alveolar infiltrates throughout both lung patterson that persist and are unchanged. Potassium is low at 3.3 and will replace per protocol and recommend repeat labs. 11/04/2021 Patient is seen and evaluated today and continues to be in critical condition. Continued right chest tubes x2 and chest xray today shows some increase in size of the pneumothorax on the right. Patient is off sedation since yesterday and does not respond to commands only painful stimuli. CT brain ordered and pending. Patient currently on precidex and having multiple issues with blood pressure. Code status was changed to no code by family today. Patient continues on vent and FI02 is 50% with a peep of 14. Overall prognosis is extremely poor and guarded. 11/05/2021 Patient continues in the ICU being closely monitored. Fi02 is 50% with a peep of 14. Patient also continues with 2 right side chest tubes with chest xray showing possible slight improvement in the size of right side pneumothorax and otherwise stable chest. Patient continues on eliquis along with oral prednisone and vitamin and zinc supplements. Patient is off propofol and not following command s. CT brain was negative yesterday. 11/06/2021 Patient with bilateral pneumonia and acute hypoxic respiratory failure requiring intubation and mechanical ventilation with pulmonary/critical care team following him closely and help with vent management. Patient has prolonged course in the hospital and intensive care unit. And his courses marked by several complications including bilateral pneumothoraces status post chest tubes, more on the right side. New-onset A. 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 His condition remains critical. Distal hypoxic requiring high FiO2 50%, his blood pressure is borderline 80/53, he had no fever today but yesterday his temperature was found and draped. He is tachypneic and 28. He is kept on Eliquis 5 mg, prednisone 60 mg, normal saline 50 mg as well as vitamin C, D and zinc. He is also on Protonix and Cardizem 30 mg 4 times a day 11/07/2021 Patient remains intubated on mechanical ventilation with pulmonary/critical care team following her closely and help with her ICU management and vent management. Patient still tachypneic, tachycardic and low-grade fever of 100.2. Blood pr essure is a stable on pressors were discontinued. WBC is 16.2, hemoglobin 9. She has sputum culture showing Corynebacterium but repeat sputum culture is pending. Chest x-ray showing small right pneumothorax and similar diffuse bilateral ground glass opacity. She remains on Eliquis 5 mg, prednisone, normal saline at 50 and vitamins. Antibiotics were discontinued by pulmonary/critical care team and they recommended to keep monitoring while she is off antibiotics. She has DO NOT RESUSCITATE order. Family 11/08/2021 Patient is still in critical condition in the ICU with pulmonary/critical care t eam followed closely and help with vent management and critical care management. Patient was noticed to be still weak all over and drowsy, her weakness was thought to be more on the left side, therefore neurological consult was obtained patient was diagnosed with critical illness myopathy/neuropathy plus toxic/metabolic encephalopathy partly related to medication therefore surgical dose lowered 50 down to 25 twice a day. Patient with low-grade fever, FiO2 of 50%, blood pressure is stable, slightly tachycardic and tachypneic. Labs show leukocytosis 14.3 and hemoglobin 9.2. Chest x-ray showing decreased pneumothorax 5-10% after placement of chest tube on the right side by cardiothoracic surgery team consulted today also there is diffuse subcutaneous edema which looks stable. Patient remains on Eliquis 5 mg, prednisone 60 mg, vitamins on normal saline at 50 mL per hour 11/09/2021 Patient still on the critical care unit requiring special attention with tracheostomy placed yesterday status post mechanical ventilation with pulmonary/critical care team followed closely and help with vent management. Today patient is afebrile, tachycardia improved still tachypneic blood pressure is stable, FiO2 stable at 50%. Left unstable leukocytosis 14.3, hemoglobin 8.2. Chest x-ray showing 3 chest tubes on the right side with lateral component of the pneumothorax is slightly worse by 4 mm and there is diffuse interstitial and groundglass changes. Remains on Eliquis 5 mg, multiple vitamins, prednisone lowered to 40 mg and still on normal saline at 50 mL/h No sedation trial today 11/10/2021 Patient remains in the ICU on mechanical ventilation in a critical condition. She is status post tracheostomy. With pulmonary/critical care team following her closely and help with vent management and critical care management. Patient is tachycardic and tachypneic, blood pressure is stable. She has FiO2 of 50%. Leukocytosis of 15,000, hemoglobin 8.9. Showing bilateral infiltrates Patient remains on Eliquis 5 mg, prednisone 40 mg, increase normal saline 100 mL per hour. Continue with multiple vitamins. 2 chest tubes have been removed and the apical [address] 11/11/21 Patient remains in the ICU in critical condition with mechanical ventilation, and his been monitored closely. A still tachycardic with heart rate 114 tachypneic with respiratory rate 30, afebrile, blood pressure is a stable. And FiO2 of 50%. WBCs 13,000, hemoglobin 8.3, Chest x-ray showing only 1 right-sided chest tube and diffuse interstitial ground glass opacity. Patient remains on Eliquis 5 mg, prednisone lowered to 30 mg, normal saline At 50 mL per hour, him is on multiple vitamins. His antihypertensive medication will be adjusted today. subjective: Resume the care of the patient today 11/23/2019 patient remains in the ICU on mechanical ventilation status post tracheostomy. She is awake and agitation at times is noted and possible given Haldol when necessary. She still on mechanical ventilation with pulmonary/critical care team followed closely. Her FiO2 is 100% and respiratory rate 26 and tachycardic at 120s to 130s. Chest x-ray showed bilateral infiltrates suspicious for pneumonia versus ARDS and edema. She's been on bilateral: Pneumonia and finish her steroid therapy, currently kept on vitamin C, vitamin D and zinc as well as Eliquis 5 mg. Glucose controlled with 10 units at bedtime sliding scale. She has leukocytosis 16.1, hemoglobin 8.8. Also she is on Eliquis 5 mg twice a day. Objective - Vital Signs Vital signs: Vital Signs Temp 98.4 F 11/22/21 16:00 Pulse 116 H 11/22/21 16:00 Resp 32 H 11/22/21 16:00 BP 105/60 11/22/21 16:00 Pulse Ox 93 L 11/22/21 16:00 Intake & Output 11/21/21 11/22/21 11/22/21 18:59 06:59 18:59 Intake Total 798 1094 702 Output Total 415 765 470 Balance 383 329 232 Weight 85 kg 85 kg Intake: IV 100 130 90 0.9 NACL 100 130 90 Tube Feeding 638 754 522 Other 60 210 90 Output: Chest Tube Drainage 0 0 Chest Tube Right Upper 0 0 Anterior Chest Urine 415 765 470 Other: Voiding Method Indwelling Catheter Indwelling Catheter Indwelling Catheter # Bowel Movements 1 ABP, PAP, CO, CI - Last Documented Arterial Blood Pressure 120/111 - Exam -GENERAL: The patient is intubated status post tracheostomy. Patient generally weak HEENT: Pupils are round and equally reacting to light. EOMI. No scleral icterus. No conjunctival pallor. Normocephalic, atraumatic. No pharyngeal erythema. No thyromegaly. CARDIOVASCULAR: S1 and S2 present. No murmurs, rubs, or gallops. -PULMONARY: Bilateral decreased breath sounds with bilateral crepitation ABDOMEN: Soft, nontender, nondistended, normoactive bowel sounds. No palpable organomegaly. MUSCULOSKELETAL: No joint swelling or deformity. EXTREMITIES: No cyanosis, clubbing, or pedal edema. -NEUROLOGICAL: Gross neurological examination did not reveal any focal deficits. General awake, more on the left side SKIN: No rashes. no petechiae. - Labs CBC & Chem 7: 11/22/21 06:07 11/22/21 06:07 Labs: Abnormal Lab Results - Last 24 Hours (Table) 0311/21/21 11/22/21 Range/Units 18:10 23:58 05:03 WBC (3.8-10.6) k/uL RBC (3.80-5.40) m/uL Hgb (11.4-16.0) gm/dL Hct (34.0-46.0) % MCHC (31.0-37.0) g/dL RDW (11.5-15.5) % Neutrophils # (1.3-7.7) k/uL Sodium (137-145) mmol/L BUN (7-17) mg/dL Creatinine (0.52-1.04) mg/dL Glucose (74-99) mg/dL POC Glucose (mg/dL) 164 H 171 H 140 H (75-99) mg/dL 11/22/21 11/22/21 11/22/21 Range/Units 06:07 06:07 11:29 WBC 16.1 H (3.8-10.6) k/uL RBC 3.31 L (3.80-5.40) m/uL Hgb 8.8 L (11.4-16.0) gm/dL Hct 29.3 L (34.0-46.0) % MCHC 30.1 L (31.0-37.0) g/dL RDW 16.3 H (11.5-15.5) % Neutrophils # 11.6 H (1.3-7.7) k/uL Sodium 134 L (137-145) mmol/L BUN 20 H (7-17) mg/dL Creatinine 0.27 L (0.52-1.04) mg/dL Glucose 179 H (74-99) mg/dL POC Glucose (mg/dL) 192 H (75-99) mg/dL Assessment and Plan Assessment: Acute COVID-19 infection with acute COVID-19 bilateral interstitial pneumonia with hypoxic hypercarbic respiratory failure on mechanical vent status post trach and peg tube placement on 10/14/2021 Worsening right side pneumothorax status post chest tube placement and thoravent removal on 10/29/2021 Right pneumothorax status post chest tube placement Critical illness myopathy and neuropathy Atrial fibrillation, new onset, currently rate controlled on metoprolol and cardizem Non-sustained ventricular tachycardia, currently sinus Acute left leg deep vein thrombosis Primary hypercoagulable state and factor V deficiency Obesity with a body mass index of 36.0 DVT prophylaxis: on Eliquis No code Plan: This is a pleasant 61 years old female with covert pneumonia, hypoxia, DVT and A. fib. Patient currently is off steroids. Continue with vitamin C, vitamin D and zinc Continue with the Eliquis cardiology and pulmonary/critical care team on the case. Neurology consult, vascular surgery consult Labs and medication were reviewed.. Continue same treatment. Continue with symptomatic treatment. Resume home medication. Monitor lytes and vitals. DVT and GI prophylaxis. Further recommendations as per clinical course of the patient DVT prophylaxis: Eliquis GI Prophylaxis: Ppi Prognosis is guarded
--- NOTE | 2021-11-23 09:10 | PCN ---
PROCEDURE NOTE PULMONARY/CRITICAL CARE PROCEDURE NOTE: Placement of right-sided chest tube. PREOPERATIVE DIAGNOSIS: Tension pneumothorax. POSTOPERATIVE DIAGNOSIS: Tension pneumothorax. CIVILIAN TECHNICIAN: Dr. Pope. PROCEDURE DESCRIPTION: There was informed consent, as the nurse called the patient's prior to the procedure and let him know that a chest tube was needed. The area was cleansed with chlorhexidine. A small incision was made along the rib border. This incision was at the fifth intercostal space between the anterior and mid axillary lines. The tissues subsequently were dissected with blunt forceps. I was able to push myself into the pleural space with the forceps. There was a whoosh of air. There was some bleeding. A #28-[place] chest tube was placed. It was directed apically. There was some blood noted initially in the chest tube. The chest tube was then secured with 0 nylon suture material. It was dressed by the nurses. It was connected to the Pleur-evac. There was a significant leak noted. The patient tolerated the procedure well. There was no immediate complication. A subsequent chest x-ray revealed improvement in the right- sided pneumothorax. There were no complications noted. The patient tolerated the procedure well. MMODL / IJN: [id number] /
[2021-11-23 09:19] VITALS: BP 111/49; TEMP 99.7
--- NOTE | 2021-11-23 09:38 | P.PN ---
Subjective Progress Note Date: 11/23/21 Principal diagnosis: Hypoxemic respiratory failure. Pulmonary consult dated 09/24/2021. 61-year-old female who states that she's been having symptoms, since September 10. The symptoms included shortness of breath, cough, fatigue, muscle aches, and generally just not feeling well. The patient is on vaccinated. She tested positive for coronavirus on September 23. Currently, she is on BiPAP with settings of 16/8, at 100%. Her primary care physician is Dr. Dionte Bal. The patient takes Coumadin chronically for her factor V or Leiden factor deficiency. Initially, on room air, her saturations were in the 70s, and on a nonrebreather, only got up into the mid 80s. In addition to the primary hypercoagulable state, she has a history of DVT, fibromyalgia, pneumonia, arthritis, and degenerative disc disease. She is a lifelong nonsmoker. She is getting saline at 50 mL an hour currently. White count 12.1, with a normal hemoglobin, hematocrit, and platelet count. PTT 24.2 INR 2.5, and d-dimer was 32.13. Sodium 1:30, potassium 3.1, chlorides 106, CO2 20, anion gap 12, BUN 47, and creatinine 1.5. Lactic acid was 1.5. AST was 95 with an ALT of 60. Pro-calcitonin level was 0.52. N-terminal proBNP is 259. Chest x-ray reveals diffuse bilateral infiltrates. CT angiogram was negative for pulmonary embolism, but did show diffuse infiltrates consistent with coronavirus pneumonia. Progress note dated 09/25/2021. 62-year-old female that I saw yesterday in consultation. She's been having coronavirus symptoms since September 10. The patient sees Dr. Dionte Bal as a primary. Yesterday, she was on BiPAP, at 16/8 and 100%. She was doing okay. Today, her saturations are quite low, she is much more tachypnea, and I decided to go ahead and move her to the ICU. The patient may require intubation and mechanical ventilation before the end of the day. CT angiogram was negative for pulmonary embolism. I did speak to her daughter, and her . White count 17.1, hemoglobin 11.9, hematocrit 37.5, platelet count 390,000. PTT is 33.3 INR is 3.5. Blood gases done on 100% show pO2 of only 49, pCO2 32, and a pH is 7.42. Sodium is 142, potassium 3.7, chlorides 113, CO2 21, anion gap 8, BUN 35, with a creatinine of 1.01. Progress note dated 09/26/2021. 62-year-old female, who was admitted with a diagnosis of hypoxemic respiratory failure secondary to coronavirus associated pneumonia. She's had coronavirus symptoms since September 10. Yesterday, she was transferred down to the intensive care unit for worsening respiratory status, and required intubation and mechanical ventilation. In addition, she had a central line placed and an arterial line placed yesterday. She remains on the ventilator, she is on the volume assist control mode, rate 26, tidal volume 400, FiO2 100%, and PEEP of 15. Arterial blood gases show pO2 of 82, pCO2 46, and a pH is 7.27. The patient's getting saline at 50 mL an hour, Nimbex at 1 mcg/kg/m, propofol at 50 mcg/kg/m, and norepinephrine at 2 mcg/m. Tube feedings have yet to be started. Chest x-ray shows a properly placed endotracheal tube, and diffuse bilateral infiltrates, which are essentially unchanged. White count 14.4, hemoglobin 10.5, hematocrit 32.4, and platelet count 250,000. PTT 34.5 with an INR 3.6. Sodium 143, potassium 4, chlorides 118, CO2 22, anion gap 3, BUN 27, and creatinine 0.95. LDH is 930. C-reactive protein is 16.2. CT angiogram was negative for pulmonary embolism. Reevaluated today on 10/08/21, patient remains in the ICU, intubated, mechanically ventilated, does not seem to be doing much better today. Patient is basically about the same, remains on assist control rate of 30 tidal volume 325 FiO2 is up to 85% PEEP remains at 16. Try to increase the PEEP, however there was a significant increase in her peak airway pressure and plateau pressure. Presently her peak airway pressure is 38, and plateau pressure is 34. Patient remains on propofol at 40 mcg/kg/m Nimbex of 0.5 but granted kilo per minute fentanyl 1 mcg/kg/h clevidipine 5 mg per hour. Chest x-ray is basically about the same, continues to show bilateral infiltrates and most likely underlying ARDS. Her labs showed WBC count of 13.0 hemoglobin 10.4. Electrolytes are normal renal profile is normal. ABG showed a pO2 of 61 pCO2 57 pH of 7.47. This was on 75%, and increase her FiO2 to 80% O2 saturation seems to be marginal on the monitor. Patient is off lidocaine drip today. Reevaluated today on 10/09/21, patient remains in the ICU, intubated and mechanically ventilated. Not much of the changes noted in the last few days, remains on assist control rate of 11/18/2024 FiO2 80% and PEEP of 16. ABG remains marginal, her pO2 is 62 pCO2 56 pH of 7.42. Patient remains on Nimbex at 3 mcg/kg/m fentanyl 1 mcg/kg/h propofol 40 mcg/kg/m, she is on clevidipine for milligrams per hour, IV fluids at KVO. Her WBC count is 17.1, and hemoglobin is 11.6. Electrolytes are normal and renal profile is normal. Chest x-ray continues to show multifocalopacities. And subcutaneous emphysema. No evidence of pneumothorax. Endotracheal tube, nasogastric tube and left central line are all in proper positions. Reevaluated today on 10/10/21, patient remains in the ICU, intubated and mechanically ventilated. She is presently on assist control rate of 30 tidal volume 325 FiO2 70% PEEP of 16. Her ABG showed a pO2 of 79 pCO2 48 pH of 7.50. Chest x-ray is basically showing no change. Continues to have bilateral infiltrates. Electrolytes are normal bicarb is 37 BUN is 35 creatinine 0.69 WBC count is 15.6 hemoglobin is 10.7. Patient remains on vital HPI 10 mL per hour. She is off level Prax, and her blood pressure seems to be relatively stable. Patient remains sedated and paralyzed, she is on propofol at 50 mcg/kg/m Nimbex at 3 mcg/kg/m fentanyl 12 mcg/kg/h, she is supposed to undergo tracheostomy and PEG tube placement next week, her Eliquis was restarted, needs to be placed on hold once the decision was made whether she is undergoing tracheostomy and PEG tube tomorrow by Dr. balbuena Progress note dated 10/11/2021. 61-year-old female admitted back on September 23. She came in with a diagnosis of coronavirus associated pneumonia. She came to the intensive care unit on the , and was intubated for respiratory failure on 09/25/2021. The patient remains on mechanical ventilator. The patient's on the volume assist control mode, rate 30, tidal volume 325, FiO2 90%, PEEP of 16. Blood gases show pO2 of 62, pCO2 of 51, and a pH is 7.47. The patient's getting saline at 20 mL an hour, propofol at 40 mcg/kg/m, fentanyl at 1 mcg/kg/h, Nimbex at 3 mcg/kg/m, and vital high protein at 10 mL an hour, which is goal. The patient's chest x-ray showed a left-sided pneumothorax, about 20-25%. A #28-Frisian chest tube was inserted today. Also, a fresh arterial line was placed today, and the left radial artery. White count 16.5, hemoglobin 10.6, hematocrit 34.5, platelet count 2 48,000. Sodium 136, potassium 3.6, chlorides 99, CO2 36, anion gap 1, BUN 32, with a creatinine 0.7. Microbiologic studies are all negative. Chest x-ray shows a very properly placed left-sided chest tube, with complete resolution of prior left-sided pneumothorax. Progress note dated 10/12/2021. 61-year-old female admitted back on 09/23/2021. She came in with a diagnosis of coronavirus associated pneumonia. The patient came to the intensive care unit on 09/25/2021, and was intubated on 09/25/2021 for worsening respiratory status. The patient remains on the mechanical ventilator. The patient was to have a tracheostomy and PEG tube placed today, but unfortunately, her hospital course is now been complicated by bilateral pneumothorax, requiring bilateral chest tube placements on October 11, and bleeding from the left chest tube site, since yesterday. That is despite the fact that the patient received fresh frozen plasma, vitamin K, and 4 factor prothrombin complex concentrate. Currently, the patient remains on the volume assist control, rate 30, tidal volume 325, FiO2 90%, and PEEP of 16. Blood gases show pO2 of 74, pCO2 of 58, and a pH is 7.41. The patient's on saline at KVO, propofol at 40 mics per kilogram per minute, Nimbex at 3 mcg/kg/m, fentanyl at 1 mcg/kg/h, norepinephrine at 2 mcg/m, and tube feeds are currently on hold. I did order 1 unit packed red blood cells. I told the nurse to call the physician, they canceled the anticipated surgery today. I was able to speak to the patient's , Taco, at [phone]. He was going to talk to the family about CODE STATUS, and possibly withdrawing life support. White count 17.3, hemoglobin 6.5, down from 10.1, hematocrit 20.4, and platelet count 194,000. PT 10.6 INR 1 PTT fibrinogen 326, and d-dimer is 0.92. Sodium 138, potassium 3.6, chlorides 101, CO2 36, anion gap 1, BUN 30, creatinine 0.69. Sputum is negative. Blood cultures are negative. Chest x-ray shows bilateral chest tubes, without pneumothorax, and diffuse patchy bilateral infiltrates. Progress note dated 10/13/2021. 61-year-old female, admitted back on 09/23/2021. She was admitted with a diagnosis of coronavirus associated pneumonia. He came to the intensive care unit on 09/25/2021, and was intubated on the same day for worsening respiratory status. She remains on mechanical ventilator. The patient was to have a trache ostomy and PEG tube placed, but that was put on hold. She did develop bilateral pneumothoraces, and required bilateral chest tube insertions. At one point, she was bleeding from the left chest tube site. That subsequently, has stopped. She remains on the ventilator, volume assist control, rate 30, tidal volume 325, FiO2 60%, and PEEP of 16. Blood gases show pO2 of 89, pCO2 of 50, and pH is 7. 44. The patient's currently on Nimbex at 3 mics per kilogram per minute, propofol at 50 mcg/kg/m, fentanyl 1 mcg/kg/h, Cleveprex at 11 mg an hour, saline at 20 mL an hour, and vital high protein at 10 mL an hour, which is goal. The tube feeds are currently on hold in anticipation of tracheostomy and PEG tube placement. White count 18, hemoglobin 7.3, hematocrit 22.8, and platelet count 208,000. Sodium 138, potassium 3.6, chlorides 104, CO2 32, anion gap 2, BUN 27, and creatinine 0.62. Microbiologic studies are negative. Chest x-ray shows bilateral chest tubes. No sizable pneumothorax is noted. Subcutaneous air persist. Persistent interstitial densities are noted bilaterally. Progress note dated 10/14/2021. 61-year-old female, admitted back on 09/23/2021. She was admitted with a diagnosis of coronavirus associated pneumonia. She came to the intensive care unit 2 days later, on September 25. She was intubated on the same day, for worsening hypoxemic respiratory failure. The patient is apparently scheduled to have a tracheostomy and PEG tube placement performed today. Tube feeds are on hold. She remains on the ventilator. She is on the volume assist control mode, rate 30, tidal volume 325, FiO2 70%, and PEEP of 16. Arterial blood gases on 60%, show pO2 of 53, pCO2 of 57, and pH is 7.38. The patient's on Cleveprex at 4 mg an hour, fentanyl 1.5 mcg/kg/h, Nimbex at 3 mcg/kg/m, propofol at 50 mcg/kg/m, and saline at KVO. The patient is again seen in room 253. White count was 21.7. Hemoglobin 8.7, hematocrit 27.4, and platelet count was normal. Sodium 138, potassium 3.4, chlorides 103, CO2 35, BUN 25, and creatinine 0.59. Chest x-ray shows improving bilateral infiltrates. Progress note dated 10/15/2021. 61-year-old female, admitted back on 09/23/2021. She is again seen in room 253. She was admitted with a diagnosis of coronavirus associated pneumonia. She came to the intensive care unit on 09/25/2021. She was intubated on 09/25/2021, for worsening respiratory status. The patient underwent tracheostomy and PEG tube placement yesterday, 10/14/2021. She remains on the ventilator. She is on the volume assist control mode, rate 30, tidal volume 325, FiO2 60%, to be dropped down to 50%, and a PEEP of 16. Blood gases show pO2 of 93, pCO2 61, pH is 7.35. The patient is on saline at KVO, propofol at 40 mcg/kg/m, Nimbex at 3 mcg/kg/m, and fentanyl 1 mcg/kg/h. The patient's also on norepinephrine at 2 mcg/m. Tube feedings are on hold. The patient has [address] This is slightly from the right chest tube. Thus far, microbiology is negative. We will discontinue the Diflucan. Currently, the patient is not on any antibiotics. We'll resume the patient's Eliquis, at 5 mg twice a day. White count 21.5, hemoglobin 8.3, hematocrit 27.2, and platelet count normal. Sodium 137, potassium 3.9, chlorides 104, CO2 32, anion gap 1, BUN 22, and creatinine 0.52. Chest x-ray shows patchy bilateral lung infiltrates. Progress note dated 10/16/2021. 61-year-old female, admitted back on 09/23/2021. The patient was again seen in room 253. She was admitted with a diagnosis of coronavirus associated pneumonia. She came to the intensive care unit on September 25. She was intubated on 09/25/2021. The patient underwent tracheostomy and PEG tube placement on 10/14/2021. She remains on the ventilator. Currently, she is on the volume assist control mode, rate 30, with a respiratory rate of 33. Tidal volume is 325. FiO2 60%, and PEEP of 16. Blood gases show pO2 of 80, pCO2 of 58, and a pH is 7.41. The patient is currently on propofol at 50 mcg/kg/m, saline at 20 mL an hour, Nimbex at 5 mcg/kg/m, and fentanyl 1.5 mcg/kg/h. The patient's also getting Cleveprex 5 mg an hour, and vital 1.2 at 10 mL an hour, which is goal. Chest x-ray shows no change. Microbiologic studies are currently negative. There is a small intermittent leak from the right-sided chest tube. The left- sided chest tube shows no leak so ever. The patient should be paralyzed, but apparently is overbreathing the ventilator. We will switch to a different paralytic. In addition, the ventilator may need to be switched out. White count 16.9, hemoglobin 8.9, hematocrit 29.2, and platelet count 278,000. Sodium 137, potassium 3.6, 2, CO2 33, anion gap 2, BUN 19, and creatinine 0.5. Progress note dated 10/17/2021. 61-year-old female, admitted back on 09/23/2021. The patient was again seen in room 253. She was admitted with a diagnosis of coronavirus associated pneumonia. She came to the intensive care unit on 09/25/2021, and was intubated on the same day. The patient underwent tracheostomy and PEG tube placement on 10/14/2021. She remains on the ventilator. Yesterday, or having issues with her tracheostomy tube. Her returned tidal lines were much lower than that should've been. We were able to do a bronchoscopy, suction her airway, and reposition the tracheostomy tube, which I believe was against the wall of the trachea. Currently, she is doing much better. She is on the volume assist control mode, rate 30, tidal volume 420, FiO2 80%, and PEEP of 16. Blood gases show a PaO2 of 69, pCO2 of 48, pH is 7.46. The patient is on propofol at 50 mcg/kg/m, saline at 20 mL an hour, fentanyl 1.5 mcg/kg/h, and rocuronium at 11 mcg/kg/m. The patient is also getting vital 1.2 at 10 mL an hour, which is goal. Today we will attempt to wean the FiO2. In addition, the patient will need a new arterial line, at the right radial site. Current labs include a white count 15.8, hemoglobin 8.2, hematocrit 24.4, and platelet count 271,000. Sodium 136, potassium 3.1, chlorides 100, CO2 32, anion gap 4, BUN 21, and creatinine 0.48. Chest x-ray today, shows diffuse infiltrates, and is largely unchanged. On 11/02/2021 patient seen in follow-up in the intensive care unit, she remains trached to the ventilator, sedated, currently on assist-control with a rate of 26, tidal M3 50, FiO2 of 55% and PEEP of 14. This morning's blood gas shows pO2 of 150, pCO2 of 67, and pH of 7.37, this was done on FiO2 of 70%, and FiO2 has been decreased down to 55%. Today's chest x-ray shows stable right upper lobe pneumothorax despite [address], persistent multifocal confluent increased opacity consistent with COVID-19 infection, no significant change from one day earlier. Patient is currently sedated with Diprivan at 65 mics per kilo per minute, fentanyl infusion at 2.5 mics per kilo per minute, 0.9 normal saline at a rate of 20 ML per hour, patient is on tube feedings at 10 mL per hour, with a goal of 10. Patient has [address], the medial chest tube has no air leak, remains to wall suction, and more lateral right-sided chest tube has intermittent air leak and remains to wall suction. Patient has been off the Cleviprex since yesterday morning at 10:45 in the morning, patient was placed on metoprolol 50 mg twice daily, and she remains on oral Cardizem 30 mg 4 times daily and Eliquis for new onset atrial fibrillation . Yesterday we had dexamethasone DC'd and place the patient on prednisone 60 mg daily. In addition patient is an +1.3 L net fluid balance over the last 24 hours, and patient will be given a dose of Lasix. Her oxygenation seems to have improved on today's blood gas, and we were able to contact the FiO2 down to 55%. She's had no acute events overnight. The rest of her blood work has been reviewed her white blood cell count is 7.2, hemoglobin is 8.9, platelet count is 304, sodium is 136, potassium is 4.0, chloride is 97, CO2 is 37, B1 is 20 creatinine 0.37. Her sp utum culture showed Corynebacterium species, and blood cultures have been negative. Patient has received 5 day course of Levaquin which can be discontinued at this time, her procalcitonin level was negative at 0.23. On November 03, 2021 patient seen in follow-up in intensive care unit. she remains trached to the ventilator, sedated, she is on control with a rate of 26, tidal 350, FiO2 55% and PEEP of 14. This morning's blood gas shows pO2 of 76, pCO2 of 60, and pH of 7.45. Her peak airway pressures 26, and plateau pressure of 30. Today's chest x-ray shows stable portable chest, 2 right-sided chest tubes, right-sided pneumothorax is unchanged compared to yesterday, there are scattered interstitial and alveolar infiltrates throughout both lungs unchanged. Patient is currently sedated on Diprivan at 55 mics per kilo per minute, fentanyl drip has been discontinued, patient has been getting intermittent doses of IV Dilaudid for discomfort. Patient has been hypertensive especially during periods of agitation, and sedation holidays. Yesterday patient was off sedation for 30 minutes, did not follow purposeful command. she did however become agitated, restless, and her vital signs were becoming unstable, she was very dyssynchronous with the ventilator, and she had to be placed back on sedation. Today's labs have been reviewed, her white blood cell count is 7.8, hemoglobin is 9.3, platelet count is 353, sodium is 139, potassium is 3.3, this is being replaced per protocol, in addition to scheduled doses of K-Lyte 20 in the every 3 times daily, chloride is 98, CO2 39, BUN is 19 creatinine 0.30. Patient is receiving nutrition with vital hypertension at a rate of 47 with a goal of 47 and standard water flushes. She has had no acute events overnight, she still has [address], the medial chest tube is positive for intermittent air leak, and lateral chest tube on the right side shows no air leak. Patient continues on prednisone 60 mg daily, she is on oral Cardizem, and Eliquis for anticoagulation, she remains in A. fib with a controlled rate. On 11/04/2021 patient seen in follow-up in the intensive care, she remains trached to the ventilator, she is currently not on any sedation since 4:00 yesterday afternoon. She is on assist-control with a rate of 26, tidal on his 350, FiO2 50% and PEEP of 14, this morning blood gas shows pO2 of 73, pCO2 52 and pH of 7.47. She is currently on no drips other than 0.9 normal saline at a rate of 20 ML per hour, patient has been off all sedation since yesterday 4:00 PM. Yesterday afternoon patient had developed bradycardia, with sinus pauses and the heart rate was down to 38, patient was hypotensive, Precedex was discontinued, and patient had recovered. She has not responded to any verbal stimuli, she grimaces to painful stimuli, does not follow instructions. Today's chest x-ray shows small to moderate size right pneumothorax with slight interval increase in size, currently at 3.7 cm at the apex versus 2.5 cm previously, and cardiomegaly and diffuse groundglass interstitial changes that are similar in appearance to yesterday's chest x-ray. Patient still has 2 right-sided chest tubes in place with intermittent air leaks alternating between the 2. Both chest tubes remained to wall suction. Patient is currently in sinus mechanism, slightly tachycardic with a rate of 115 BPM, currently remains on oral Cardizem 30 mg 4 times a day, Eliquis 5 mg twice a day, Lopressor 50 mg twice a day, she remains on Norvasc 10 mg daily and losartan 12.5 mg daily. Cleviprex has been off since yesterday. Blood pressure seems to be better controlled on today's exam. Patient has been afebrile. She is tolerating tube feedings. Today's labs have been reviewed, white blood cell, 10.5, hemoglobin is 9.4, platelet count is 397, sodium is 140, potassium 3.6, chloride is 101, CO2 36, B1 is 21 creatinine 0.3. The patient's family has been receiving daily updates on patient's condition from the nursing staff, at this time they're considering patient's CODE STATUS. Patient has been hospitalized for a total of 42 days, 40 days on the ventilator support. Patient has been maximizing medical treatment, currently she has not shown significant improvement, and has developed multiple complications along the way. Neurologically patient has not woken up, or followed any instructions. We will proceed with CT of the brain without contrast today. Patient's family has been updated by the nursing staff Progress note dated 11/05/2021. The patient is again seen in the intensive care unit, room 253. The patient is now been in the hospital for 43 days. The patient remains on the mechanical ventilator. The family did make the patient a DO NOT RESUSCITATE patient, yesterday. She is on the volume assist control, rate 26, tidal volume 350, FiO2 50%, and PEEP of 14. Her tear blood gases show pO2 of 74, pCO2 56, and pH is 7.42. The patient's getting saline at 50 mL an hour, propofol at 10 mcg/kg/m, a nd vital high protein at 40 mL, with a goal of 55 mL an hour. She had a brain CT, that was negative for anything acute. She has a right apical pneumothorax on chest x-ray. She has 2 right-sided chest tubes in place. White count 10.5, hemoglobin 9.3, hematocrit 31.5, platelet count 427,000. Sodium 140, potassium 3.5, chlorides 106, CO2 36, anion gap -2, BUN 20, creatinine 0.34. Chest x-ray shows a right apical pneumothorax, which may be slightly better. Progress note dated 11/06/2021. 61-year-old female again seen in the intensive care unit, room 253. She's now been in the hospital for 44 days. She was admitted with a diagnosis of coronavirus associated pneumonia. The patient remains on mechanical ventilator. She is currently on pressure regulated volume control ventilation, with a targeted tidal volume of 400, inspiratory time of 0.8 seconds, rate of 26, FiO2 of 50%, and a PEEP of 14. Blood gases show pO2 of 57, pCO2 44, and pH is 7.5. Saturations are 91-92%. The patient's getting saline at 50 mL an hour and vital high protein at 46 mL an hour, which is goal. She has 2 right-sided chest tubes. There is bit of a leak. The pneumothorax on the right is slightly large r. The patient is now a DO NOT RESUSCITATE patient. White count 14.4, hemoglobin 9, hematocrit 29.1, platelet count 409,000. Sodium 139, potassium 3.6, chlorides 105, CO2 34, BUN 23, and creatinine 0.28. Calcium is 8.6. Chest x-ray shows diffuse bilateral infiltrates. There is a right-sided apical pneumothorax. It may be a bit bigger. Two right-sided chest tubes are noted. Progress note dated 11/07/2021. 61-year-old female again seen in the intensive care unit, room 253. The patient has been here in the hospital now for 45 days. She was admitted with a diagnosis of coronavirus associated pneumonia. She remains on mechanical ventilator. She is on the VC plus modality, with a targeted tidal volume of 400, and inspiratory time of 0.8 seconds. Her set rate is 26 with a spontaneous rate of 30, FiO2 50%, and a PEEP of 14. Blood gases are excellent with a pO2 of 73, pCO2 41, and a pH is 7.49. The patient's on saline at 50 mL an hour, and vital high protein at 46 mL an hour, which is goal. The patient has 2 chest tubes on the right, one of which has a intermittent leak. The patient's arterial line is been in for quite some time. Will be discontinued, and the tip cultured. The patient will also have blood urine and sputum cultures. White count 16.2, hemoglobin 9, hematocrit 29.7, and platelet count 416,000. Sodium 139, potassium 3.4, chlorides 111, CO2 29, BUN 18, creatinine 0.3. Calcium is 8.3. Chest x-ray shows a small right-sided pneumothorax. It's actually a bit smaller than it was before. Diffuse bilateral groundglass opacities are noted. Progress note dated 11/22/2021. 61-year-old female, again seen in room 253. Patient has been in the hospital n for 16 days. I saw the patient last on November 07. She was admitted with a diagnosis of coronavirus associated pneumonia. She remains on the mechanical ventilator. She is a DO NOT RESUSCITATE patient. The patient is on volume assist control, with a rate of 22, tidal volume 400, FiO2 50%, with a PEEP of 3. No blood gases were done. The patient's on saline at 10 mL an hour, and vital high protein at 50 mL an hour, which is goal. There is a intermittent leak from the right chest tube. We'll determine the last time the patient received any sort of bleeding. We apparently waiting for transfer to long-term acute care. One thing holding that up in the right-sided chest tube. White count 16.1, hemoglobin 8.8, hematocrit 29.3, platelet count normal. Sodium 134, potassium 3.8, chlorides 100, CO2 30, anion gap 4, BUN 20, with a creatinine 0.27. Chest x-ray shows a minimal right apical pneumothorax. Bilateral airspace disease is noted, as a sequelae of coronavirus pneumonia. Progress note dated 11/23/2021. 61-year-old female, again seen in room 253. She's now been in the hospital for 61 days. The patient was seen yesterday, and I came in last night, at 2:00 in the morning, to place a right-sided chest tube. The patient developed acute respiratory distress, and a chest x-ray revealed a tension pneumothorax on the right. A #28-Frisian chest tube was placed by me last night. There is a significant air leak noted. I did speak to the patient's last night. He was considering comfort measures. She remains on the ventilator. She is on volume assist control, rate 26, tidal volume 400, FiO2 100%, and PEEP of 3. Peak airway pressure is 49 cm water. The patient remains on propofol at 30 mcg/kg/m, 0.9 at 10 mL an hour, and rocuronium at 8 mcg/kg/m. The follow-up chest x-ray showed a very small apical right-sided pneumothorax. Blood gases today show a PaO2 of 89, pCO2 of 85, and pH is 7.23. Tube feedings on hold. No additional blood work was performed. Multiple chest x-rays yesterday, and last night, were performed, and reviewed. Objective - Vital Signs Vital signs: Vital Signs Temp 99.7 F H 11/23/21 08:00 Pulse 125 H 11/23/21 09:00 Resp 26 H 11/23/21 09:00 BP 111/49 11/23/21 09:00 Pulse Ox 96 11/23/21 09:00 Intake & Output 11/22/21 11/23/21 11/23/21 18:59 06:59 18:59 Intake Total 838 590.263 81.944 Output Total 530 480 100 Balance 308 110.263 -18.056 Weight 85 kg 86 kg Intake: IV 110 120 30 0.9 NACL 110 120 30 Intake, IV Titration 62.263 51.944 Amount Rocuronium 400 mg In 2.975 51.944 Sodium Chloride 0.9% 100 ml @ 5 MCG/KG/MIN 8.925 mls/hr IV .[id number] [facility] Rx #:[id number] propofoL 1,000 mg In 59.288 Empty Bag 1 bag @ Titrate IV .Q0M ABRAHAM Rx#: [id number] Tube Feeding 638 348 Other 90 60 Output: Urine 530 480 100 Other: Voiding Method Indwelling Catheter Indwelling Catheter ABP, PAP, CO, CI - Last Documented Arterial Blood Pressure 120/111 - Exam No acute distress , with a midline tracheostomy tube. The patient is currently sedated and paralyzed. HEENT examination is grossly unremarkable. Neck supple. Full range of motion. No adenopathy thyromegaly or neck vein distention. Midline tracheostomy tube is noted. Cardiovascular examination reveals regular rhythm rate. S1-S2 normal. No S3 or S4. No discernible murmur noted. Heart rate 125 bpm. Heart sounds are distant. Lungs reveal coarse bilateral rhonchi. Breath sounds are equal bilaterally. No wheezes. No crackles. Saturations are 94 %. The patient now has 2 right-sided chest tubes, one placed laterally, and 1 anteriorly. Abdomen soft, without bowel sounds. No masses. A PEG tube is noted. Extremities are intact. No cyanosis clubbing or edema. Skin is without rash or lesion. Neurologic examination cannot be evaluated as a patient's currently sedated and paralyzed. - Labs CBC & Chem 7: 11/22/21 06:07 11/22/21 06:07 Labs: Abnormal Lab Results - Last 24 Hours (Table) 11/22/21 11/22/21 11/22/21 Range/Units 11:29 18:05 23:40 ABG pH (7.35-7.45) ABG pCO2 (35-45) mmHg ABG HCO3 (21-25) mmol/L ABG Total CO2 (19-24) mmol/L ABG O2 Saturation (94-97) % POC Glucose (mg/dL) 192 H 157 H 191 H (75-99) mg/dL 11/23/21 11/23/21 11/23/21 Range/Units 01:38 05:27 06:07 ABG pH 7.23 L (7.35-7.45) ABG pCO2 62 H 85 H* (35-45) mmHg ABG HCO3 35 H 35 H (21-25) mmol/L ABG Total CO2 37 H 38 H (19-24) mmol/L ABG O2 Saturation 98.0 H (94-97) % POC Glucose (mg/dL) 156 H (75-99) mg/dL Assessment and Plan Assessment: Acute hypoxemic respiratory failure secondary to coronavirus associated pneumonia, status post intubation, and mechanical ventilation on 09/25/2021, with tracheostomy and PEG tube placement on 10/14/2021. No evidence of pulmonary embolism on CT angiogram. Acute bilateral pneumothoraces, status post bilateral chest tube placements, on 10/11/2021. Currently, no left-sided chest tube. Status post acute tension pneumothorax, 11/23/2021, status post right-sided chest tube placed. Previous anterior chest tube, is still present. Status post bronchoscopy, on 10/16/2021, to reposition the tracheostomy tube. Acute blood loss anemia. New-onset atrial fibrillation, stable. Extensive subcutaneous emphysema, as a complication of mechanical ventilation and coronavirus associated pneumonia. Acute deep vein thrombosis. Mild transaminitis secondary to coronavirus infection. Primary hypercoagulable state in the form of Leiden factor deficiency/factor V deficiency. Nonsustained ventricular tachycardia, resolved. Prior history of DVT. History of fibromyalgia. History of arthritis. History of degenerative disc disease. Lifelong non-tobacco user. Plan: Plan dated 09/24/2021. The patient is not a candidate for REM, and she's had symptoms for more than 7 days. Actually sees, symptoms date back to September 10. 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 The patient does qualify for Decadron. In addition, the patient should be on vitamin C, vitamin D3, and zinc. Additional recommendations and suggestions are forthcoming. Prognosis is guarded. The patient is currently on Levaquin. That may disqualify her from [facility]. Plan dated 09/25/2021. The patient's blood gases suggests worsening respiratory status, and therefore, the patient was transferred down to the intensive care unit. The patient was on saline, at 50 mL an hour. Blood gases again showed a pO2 of only 49, and a pCO2 32, with a pH is 7.42. This is on BiPAP, at 100%. I did speak to her and her about the fact that she may require intubation and mechanical ventilation, before the end of the day. She will continue on Coumadin, as well as Decadron, and vitamins. The patient was placed on Levaquin. Her pro- calcitonin level was elevated. This likely disqualifies her for [facility]. We will continue to follow and make recommendations where appropriate. Prognosis is certainly guarded. Plan dated 09/26/2021. The patient was intubated and mechanically ventilated yesterday. A right radial art line was placed as was a left-sided triple-lumen catheter. The patient's currently sedated and paralyzed. Tube feedings will start today. She did get fluid resuscitation yesterday. She remains on a small dose of norepinephrine. The patient will have labs ordered for the morning including a CBC, basic metabolic profile, and blood gas. The patient remains on Coumadin. In addition, the patient will have a chest x-ray ordered for the morning. Tube feedings will be started today. Prognosis is guarded. We will continue to follow and make recommendations where appropriate. Prognosis is certainly very guarded. Plan dated 10/11/2021. Labs, x-rays, and medications are reviewed. A left-sided chest tube was placed by our team today. In addition, surgery has been consulted for possible tr acheostomy and PEG tube placement. The patient remains on propofol, fentanyl, and Nimbex. The patient is on the mechanical ventilator, on 90% FiO2 and PEEP of 16. Additional recommendations and suggestions are forthcoming. Tube feedings are currently going to be placed on hold for possible tracheostomy and PEG tube placement. We will continue to follow and make recommendations where appropriate. Plan dated 10/12/2021. The patient developed bilateral pneumothoraces, and required bilateral chest tube placements, on October 11. There is some bleeding from the left-sided chest tube. The patient did receive vitamin K, fresh shows some plasma, and 4 factor prothrombin complex concentrate. In addition, the patient is going to receive 1 unit of packed red blood cells. I asked the nurse to call the surgeon to delay surgery. I was able to speak to the patient's , Taco. He is goi ng to talk to the rest of the family about CODE STATUS and whether or not they wish to withdrawal of I support. I spoke to him for about 20 minutes on the phone. The patient remains on propofol, fentanyl, Nimbex, and norepinephrine. Prognosis is poor. We will continue to follow and make recommendations where appropriate. Plan dated 10/13/2021. The patient hopefully will proceed to tracheostomy and PEG tube placement. The patient's currently much more stable today than she was yesterday. We did talk to the about CODE STATUS. He has not made any decision as yet. The patient remains on Nimbex, propofol, and fentanyl. The patient is also receiving Cleveprex for elevated blood pressure. We will continue to follow make recommendations where appropriate. Prognosis is guarded. Labs, x-rays, and medications are all reviewed. Plan dated 10/14/2021. The patient should have a tracheostomy and PEG tube placed today. Currently, the patient remains on fentanyl, Nimbex, and propofol. In addition, the patient's on Cleveprex for blood pressure control. The patient's FiO2 was increased from 60% up to 70%, based on the blood gas today. We will continue to follow and make recommendations where appropriate. Labs, x-rays, and medications are all reviewed. Prognosis is guarded. I did speak to the about CODE STATUS. The patient is full code for now. Plan dated 10/15/2021. The patient had a tracheostomy and PEG tube placed on October 14. The patient remains on propofol, Nimbex, and fentanyl. We will attempt to discontinue the Nimbex at possible. The patient is started back on Eliquis, at 5 mg twice a day. Currently, we are going to DC Diflucan. There is a small air leak on the right chest tube area chest x-ray does not show any evidence of pneumothorax. She does have bilateral diffuse infiltrates. Currently, the patient is a full code. I did speak to the a couple days ago. Prognosis is guarded. We will continue to follow make recommendations where appropriate. The patient has now been in the hospital for 22 days. Plan dated 10/16/2021. The patient had a tracheostomy tube placed and PEG tube placement on October 14. The patient remains on Nimbex fentanyl and propofol. Interestingly, she does not appear that she is properly paralyzed. We may need to change to different paralytic or change off the ventilator. The patient remains on Cleveprex at 5 mg an hour. The patient's microbiologic studies are negative. Chest x-ray shows no changes. Additional recommendations and suggestions are forthcoming. We will continue to follow make recommendations where appropriate. Culture data as mentioned is negative. The patient is not on any antibiotics. Prognosis is guarded. Plan dated 10/17/2021. The patient had a bronchoscopy performed yesterday, to help reposition the tracheostomy tube. I believe that was up against the wall of the trachea. The patient's exhaled tidal volumes are much lower than that should've been. The patient remains on rocuronium, fentanyl, and propofol. In addition, the patient had a new arterial line placed, in the right radial artery. The other arterial line was not working properly. Culture data thus far negative. The patient is currently not on antibiotics. We will continue to follow and make recommendations where appropriate. Prognosis is guarded. I did speak to the patient's and daughter yesterday. Plan dated 11/05/2021. Currently, the patient seems be about the same today as she was yesterday. Chemical ventilation. Her propofol dose is 10 mcg/kg/m. She is getting tube feedings. She has 2 right-sided chest tube. Because of mental status changes, she had a computed tomography scan of the brain yesterday, which showed no acute abnormality. Her chest x-ray shows a right apical pneumothorax, which is slightly better today than it was yesterday. There is no left-sided chest tube. There are 2 chest tubes on the right. We will continue to follow make recommendations were appropriate. Overall prognosis remains very guarded. I have talked to the family in the past. Plan dated 11/06/2021. The patient seems about the same today as she was yesterday. The right-sided pneumothorax is just a bit larger. There is a small leak from one of the chest tubes. She remains on mechanical ventilation. Currently, she's not receiving any sedation. Yesterday, we changed to pressure regulated volume control ventilation or VC plus. She seems to be doing better with that mode. The patient remains on tube feedings. The patient is now a DO NOT RESUSCITATE patient. We will continue to follow make recommendations where appropriate. Prognosis is certainly guarded. We have been in contact with the family, and giving them updates, as necessary. Plan dated 11/07/2021. The patient is about the same today as she was yesterday. She has been off of propofol for a number of days. The right-sided pneumothorax today is a bit smaller. She has 2 right-sided chest tubes. The patient continues on pressure regulated volume control mode of ventilation. The patient is now a DO NOT RESUSCITATE as per the family. Labs, x-rays, and medications are all reviewed. The arterial line will be discontinued in the tip will be cultured. In addition, because of slight temperature elevation, the patient will have blood sputum and urine cultures. The patient is currently off all antibiotics. Prognosis is very guarded. We will continue to follow make recommendations where appropriate. Plan dated 11/22/2021. A repeat chest x-ray, revealed no significant change. A small right apical pneumothorax is noted. Labs, x-rays, and medications are all reviewed. The patient is a DO NOT RESUSCITATE patient. The patient still has a small intermittent leak from the right-sided chest tube. We will continue to follow make recommendations where appropriate. Overall prognosis remains very guarded. The patient will get an extra dose of Ativan today. No additional recommendations are made. Plan dated 11/23/2021. I came in last night at 2:00 in the morning, to place a right-sided chest tube. The patient developed acute respiratory distress, hypotension, and tachypnea. Chest x-ray revealed a tension pneumothorax. A #28-Frisian chest tube was placed at the fifth intercostal space, between the anterior and midaxillary line. The patient was sedated, and paralyzed, and apparently this morning, the family has decided to make her comfort measures. Comfort measure orders will be implemented. The paralytic be discontinued. I talked to the and the stepdaughter this morning. I also spoke to the last night. I explained to him that nothing, dying process comfortable. Obviously, prognosis is extremely poor. Time with Patient: Greater than 30
[2021-11-23] MEDS: busPIRone HCl 5 MG TAB PO SCH (11:04)
[2021-11-23] MEDS: APIXABAN 5 MG TAB PO SCH (11:04)
[2021-11-23] MEDS: ASCORBIC ACID 500 MG TAB PO SCH (11:04)
[2021-11-23] MEDS: CYANOCOBALAMIN 500 MCG TAB PO SCH (11:04)
[2021-11-23] MEDS: FOLIC ACID 1 MG TAB PO SCH (11:05)
[2021-11-23] MEDS: QUEtiapine 50 MG TAB PO SCH (11:05)
[2021-11-23] MEDS: ZINC SULFATE 220 MG CAP PO SCH (11:05)
[2021-11-23] MEDS: PYRIDOXINE 50 MG TAB PO SCH (11:05)
[2021-11-23] MEDS: POTASSIUM BICARBONATE/CIT AC 20 MEQ TABLET.EFF PO SCH (11:05)
[2021-11-23] MEDS: METOPROLOL TARTRATE 50 MG TAB PO SCH (11:05)
[2021-11-23] MEDS: PANTOPRAZOLE 40 MG/10 ML VIAL IV SCH (11:05)
[2021-11-23] MEDS ORDERED: MORPHINE SULFATE 4 MG/ML SYRINGE IVP ONE (11:06)
[2021-11-23] MEDS ORDERED: ATROPINE OPHTH SOLN 1% 5ML BTL SUBLINGUAL PRN (11:06)
[2021-11-23] MEDS ORDERED: MORPHINE SULFATE 2 MG/ML SYRINGE IV PRN (11:06)
[2021-11-23] MEDS ORDERED: MORPHINE SULFATE 4 MG/ML SYRINGE IV PRN (11:06)
[2021-11-23] MEDS ORDERED: MORPHINE SULFATE (100 MG/2 ML) 100 MG in SODIUM CHLORIDE 0.9% 100 ML IV SCH (12:00)
--- NOTE | 2021-11-24 06:50 | P.PN ---
Subjective This is a 61-year-old female who was recently admitted with acute COVID-19 pneumonia with acute COVID-19 bilateral interstitial pneumonia and also with transaminitis and being closely monitored. Patient remains in the ICU and currently intubated and sedated with an FiO2 of 70% and PEEP is 18. 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 Patient did have a venous Doppler study done recently which showed left leg DVT and patient is maintained on Eliquis will continue. Patient also continues on empiric antibiotics and awaiting for sputum culture finalized. Patient was started on IV cefepime and will continue. Patient is also continued on oral dexamethasone along with vitamin and zinc supplements and will continue. Patient with some mild volume overload and given a dose of IV L asix push today. 11/03/2021 Patient is seen in follow-up this morning and continues to be closely monitored in the ICU with multiple medical consultations following. Per nursing staff working on weaning sedation and is currently off propofol to assess and no responses noted and patient is not following commands. FiO2 titrated down to 45% with a PEEP of 14 and currently on Precedex for hypertension. Chest xray shows stable scattered interstitial and alveolar infiltrates throughout both lung patterson that persist and are unchanged. Potassium is low at 3.3 and will replace per protocol and recommend repeat labs. 11/04/2021 Patient is seen and evaluated today and continues to be in critical condition. Continued right chest tubes x2 and chest xray today shows some increase in size of the pneumothorax on the right. Patient is off sedation since yesterday and does not respond to commands only painful stimuli. CT brain ordered and pending. Patient currently on precidex and having multiple issues with blood pressure. Code status was changed to no code by family today. Patient continues on vent and FI02 is 50% with a peep of 14. Overall prognosis is extremely poor and guarded. 11/05/2021 Patient continues in the ICU being closely monitored. Fi02 is 50% with a peep of 14. Patient also continues with 2 right side chest tubes with chest xray showing possible slight improvement in the size of right side pneumothorax and otherwise stable chest. Patient continues on eliquis along with oral prednisone and vitamin and zinc supplements. Patient is off propofol and not following command s. CT brain was negative yesterday. 11/06/2021 Patient with bilateral pneumonia and acute hypoxic respiratory failure requiring intubation and mechanical ventilation with pulmonary/critical care team following him closely and help with vent management. Patient has prolonged course in the hospital and intensive care unit. And his courses marked by several complications including bilateral pneumothoraces status post chest tubes, more on the right side. New-onset A. 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 His condition remains critical. Distal hypoxic requiring high FiO2 50%, his blood pressure is borderline 80/53, he had no fever today but yesterday his temperature was found and draped. He is tachypneic and 28. He is kept on Eliquis 5 mg, prednisone 60 mg, normal saline 50 mg as well as vitamin C, D and zinc. He is also on Protonix and Cardizem 30 mg 4 times a day 11/07/2021 Patient remains intubated on mechanical ventilation with pulmonary/critical care team following her closely and help with her ICU management and vent management. Patient still tachypneic, tachycardic and low-grade fever of 100.2. Blood pr essure is a stable on pressors were discontinued. WBC is 16.2, hemoglobin 9. She has sputum culture showing Corynebacterium but repeat sputum culture is pending. Chest x-ray showing small right pneumothorax and similar diffuse bilateral ground glass opacity. She remains on Eliquis 5 mg, prednisone, normal saline at 50 and vitamins. Antibiotics were discontinued by pulmonary/critical care team and they recommended to keep monitoring while she is off antibiotics. She has DO NOT RESUSCITATE order. Family 11/08/2021 Patient is still in critical condition in the ICU with pulmonary/critical care t eam followed closely and help with vent management and critical care management. Patient was noticed to be still weak all over and drowsy, her weakness was thought to be more on the left side, therefore neurological consult was obtained patient was diagnosed with critical illness myopathy/neuropathy plus toxic/metabolic encephalopathy partly related to medication therefore surgical dose lowered 50 down to 25 twice a day. Patient with low-grade fever, FiO2 of 50%, blood pressure is stable, slightly tachycardic and tachypneic. Labs show leukocytosis 14.3 and hemoglobin 9.2. Chest x-ray showing decreased pneumothorax 5-10% after placement of chest tube on the right side by cardiothoracic surgery team consulted today also there is diffuse subcutaneous edema which looks stable. Patient remains on Eliquis 5 mg, prednisone 60 mg, vitamins on normal saline at 50 mL per hour 11/09/2021 Patient still on the critical care unit requiring special attention with tracheostomy placed yesterday status post mechanical ventilation with pulmonary/critical care team followed closely and help with vent management. Today patient is afebrile, tachycardia improved still tachypneic blood pressure is stable, FiO2 stable at 50%. Left unstable leukocytosis 14.3, hemoglobin 8.2. Chest x-ray showing 3 chest tubes on the right side with lateral component of the pneumothorax is slightly worse by 4 mm and there is diffuse interstitial and groundglass changes. Remains on Eliquis 5 mg, multiple vitamins, prednisone lowered to 40 mg and still on normal saline at 50 mL/h No sedation trial today 11/10/2021 Patient remains in the ICU on mechanical ventilation in a critical condition. She is status post tracheostomy. With pulmonary/critical care team following her closely and help with vent management and critical care management. Patient is tachycardic and tachypneic, blood pressure is stable. She has FiO2 of 50%. Leukocytosis of 15,000, hemoglobin 8.9. Showing bilateral infiltrates Patient remains on Eliquis 5 mg, prednisone 40 mg, increase normal saline 100 mL per hour. Continue with multiple vitamins. 2 chest tubes have been removed and the apical [address] 11/11/21 Patient remains in the ICU in critical condition with mechanical ventilation, and his been monitored closely. A still tachycardic with heart rate 114 tachypneic with respiratory rate 30, afebrile, blood pressure is a stable. And FiO2 of 50%. WBCs 13,000, hemoglobin 8.3, Chest x-ray showing only 1 right-sided chest tube and diffuse interstitial ground glass opacity. Patient remains on Eliquis 5 mg, prednisone lowered to 30 mg, normal saline At 50 mL per hour, him is on multiple vitamins. His antihypertensive medication will be adjusted today. subjective: Resume the care of the patient today 11/22/2021 patient remains in the ICU on mechanical ventilation status post tracheostomy. She is awake and agitation at times is noted and possible given Haldol when necessary. She still on mechanical ventilation with pulmonary/critical care team followed closely. Her FiO2 is 100% and respiratory rate 26 and tachycardic at 120s to 130s. Chest x-ray showed bilateral infiltrates suspicious for pneumonia versus ARDS and edema. She's been on bilateral: Pneumonia and finish her steroid therapy, currently kept on vitamin C, vitamin D and zinc as well as Eliquis 5 mg. Glucose controlled with 10 units at bedtime sliding scale. She has leukocytosis 16.1, hemoglobin 8.8. Also she is on Eliquis 5 mg twice a day. 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 However as per critical care team family decided to pursue with comfort measures for now. Objective - Vital Signs Vital signs: Vital Signs Temp 99.7 F H 11/23/21 08:00 Pulse 125 H 11/23/21 09:00 Resp 26 H 11/23/21 09:00 BP 111/49 11/23/21 09:00 Pulse Ox 96 11/23/21 09:00 Intake & Output 11/22/21 11/23/21 11/23/21 18:59 06:59 18:59 Intake Total 838 590.263 204.248 Output Total 530 480 100 Balance 308 110.263 104.248 Weight 85 kg 86 kg Intake: IV 110 120 30 0.9 NACL 110 120 30 Intake, IV Titration 62.263 174.248 Amount Rocuronium 400 mg In 2.975 94.784 Sodium Chloride 0.9% 100 ml @ 5 MCG/KG/MIN 8.925 mls/hr IV .[id number] [facility] Rx #:[id number] propofoL 1,000 mg In 59.288 79.464 Empty Bag 1 bag @ Titrate IV .Q0M [facility] Rx#: [id number] Tube Feeding 638 348 Other 90 60 Output: Urine 530 480 100 Other: Voiding Method Indwelling Catheter Indwelling Catheter Indwelling Catheter ABP, PAP, CO, CI - Last Documented Arterial Blood Pressure 120/111 - Exam -GENERAL: The patient is intubated status post tracheostomy. Patient generally weak HEENT: Pupils are round and equally reacting to light. EOMI. No scleral icterus. No conjunctival pallor. Normocephalic, atraumatic. No pharyngeal erythema. No thyromegaly. CARDIOVASCULAR: S1 and S2 present. No murmurs, rubs, or gallops. -PULMONARY: Bilateral decreased breath sounds with bilateral crepitation. The right-sided chest tube ABDOMEN: Soft, nontender, nondistended, normoactive bowel sounds. No palpable organomegaly. MUSCULOSKELETAL: No joint swelling or deformity. EXTREMITIES: No cyanosis, clubbing, or pedal edema. -NEUROLOGICAL: Gross neurological examination did not reveal any focal deficits. General awake, more on the left side SKIN: No rashes. no petechiae. - Labs CBC & Chem 7: 11/22/21 06:07 11/22/21 06:07 Labs: Abnormal Lab Results - Last 24 Hours (Table) 11/22/21 11/22/21 11/22/21 Range/Units 11:29 18:05 23:40 ABG pH (7.35-7.45) ABG pCO2 (35-45) mmHg ABG HCO3 (21-25) mmol/L ABG Total CO2 (19-24) mmol/L ABG O2 Saturation (94-97) % POC Glucose (mg/dL) 192 H 157 H 191 H (75-99) mg/dL 11/23/21 11/23/21 11/23/21 Range/Units 01:38 05:27 06:07 ABG pH 7.23 L (7.35-7.45) ABG pCO2 62 H 85 H* (35-45) mmHg ABG HCO3 35 H 35 H (21-25) mmol/L ABG Total CO2 37 H 38 H (19-24) mmol/L ABG O2 Saturation 98.0 H (94-97) % POC Glucose (mg/dL) 156 H (75-99) mg/dL Assessment and Plan Assessment: Acute COVID-19 infection with acute COVID-19 bilateral interstitial pneumonia with hypoxic hypercarbic respiratory failure on mechanical vent status post trach and peg tube placement on 10/14/2021 Worsening right side pneumothorax status post chest tube placement and thoravent removal on 10/29/2021 A new Right sided tension pneumothorax on 11/23 Critical illness myopathy and neuropathy Atrial fibrillation, new onset, currently rate controlled on metoprolol and cardizem Non-sustained ventricular tachycardia, currently sinus Acute left leg deep vein thrombosis Primary hypercoagulable state and factor V deficiency Obesity with a body mass index of 36.0 DVT prophylaxis: on Eliquis No code Plan: This is a pleasant 61 years old female with covert pneumonia, hypoxia, DVT and A. fib. Patient currently is off steroids. Continue with vitamin C, vitamin D and zinc Right-sided chest tube was placed Family decided with comfort measures Continue with the Eliquis cardiology and pulmonary/critical care team on the case. Neurology consult, vascular surgery consult Labs and medication were reviewed.. Continue same treatment. Continue with symptomatic treatment. Resume home medication. Monitor lytes and vitals. DVT and GI prophylaxis. Further recommendations as per clinical course of the patient DVT prophylaxis: Eliquis GI Prophylaxis: Ppi Prognosis is guarded
== END 2021-11-23 15:00 | disposition expired | DRG 4 ==
LOC: EC 17:26 → 3SCARD 21:19 → EEVIPCON 21:19 → 3SCARD 21:28 → 2SICU 09-25 13:00
PROVIDERS: ADMIT Internal Medicine; ATTEND Internal Medicine
PROC: 5A0935A Assistance with Respiratory Ventilation, Less than 24 Consecutive Hours, High Flow/Velocity Cannula (ICD-10-PCS; 2021-09-23)
PROC: 5A09457 Assistance with Respiratory Ventilation, 24-96 Consecutive Hours, Continuous Positive Airway Pressure (ICD-10-PCS; 2021-09-23)
PROC: 0BH17EZ Insertion of Endotracheal Airway into Trachea, Via Natural or Artificial Opening (ICD-10-PCS; 2021-09-25)
PROC: 5A1955Z Respiratory Ventilation, Greater than 96 Consecutive Hours (ICD-10-PCS; 2021-09-25)
PROC: 0D9670Z Drainage of Stomach with Drainage Device, Via Natural or Artificial Opening (ICD-10-PCS; 2021-09-25)
PROC: 4A133J1 Monitoring of Arterial Pulse, Peripheral, Percutaneous Approach (ICD-10-PCS; 2021-09-25)
PROC: 3E043XZ Introduction of Vasopressor into Central Vein, Percutaneous Approach (ICD-10-PCS; 2021-09-25)
PROC: 4A133B1 Monitoring of Arterial Pressure, Peripheral, Percutaneous Approach (ICD-10-PCS; 2021-09-25)
PROC: 03HY32Z Insertion of Monitoring Device into Upper Artery, Percutaneous Approach (ICD-10-PCS; 2021-09-25)
PROC: 02HV33Z Insertion of Infusion Device into Superior Vena Cava, Percutaneous Approach (ICD-10-PCS; 2021-09-25)
PROC: 3E0G76Z Introduction of Nutritional Substance into Upper GI, Via Natural or Artificial Opening (ICD-10-PCS; 2021-09-27)
PROC: 0W9930Z Drainage of Right Pleural Cavity with Drainage Device, Percutaneous Approach (ICD-10-PCS; 2021-10-11)
PROC: 02HV33Z Insertion of Infusion Device into Superior Vena Cava, Percutaneous Approach (ICD-10-PCS; 2021-10-11)
PROC: 03HY32Z Insertion of Monitoring Device into Upper Artery, Percutaneous Approach (ICD-10-PCS; 2021-10-11)
PROC: 4A133B1 Monitoring of Arterial Pressure, Peripheral, Percutaneous Approach (ICD-10-PCS; 2021-10-11)
PROC: 4A133J1 Monitoring of Arterial Pulse, Peripheral, Percutaneous Approach (ICD-10-PCS; 2021-10-11)
PROC: 30283B1 Transfusion of Nonautologous 4-Factor Prothrombin Complex Concentrate into Vein, Percutaneous Approach (ICD-10-PCS; 2021-10-12)
PROC: 30243K1 Transfusion of Nonautologous Frozen Plasma into Central Vein, Percutaneous Approach (ICD-10-PCS; 2021-10-12)
PROC: 30243N1 Transfusion of Nonautologous Red Blood Cells into Central Vein, Percutaneous Approach (ICD-10-PCS; 2021-10-12)
PROC: 0W9B30Z Drainage of Left Pleural Cavity with Drainage Device, Percutaneous Approach (ICD-10-PCS; 2021-10-12)
PROC: 3E0G76Z Introduction of Nutritional Substance into Upper GI, Via Natural or Artificial Opening (ICD-10-PCS; 2021-10-14)
PROC: 0B110F4 Bypass Trachea to Cutaneous with Tracheostomy Device, Open Approach (ICD-10-PCS; principal; 2021-10-14 14:30)
PROC: 0DH63UZ Insertion of Feeding Device into Stomach, Percutaneous Approach (ICD-10-PCS; principal; 2021-10-14 14:30)
PROC: 0B918ZZ Drainage of Trachea, Via Natural or Artificial Opening Endoscopic (ICD-10-PCS; 2021-10-16)
PROC: 4A133J1 Monitoring of Arterial Pulse, Peripheral, Percutaneous Approach (ICD-10-PCS; 2021-10-17)
PROC: 03HY32Z Insertion of Monitoring Device into Upper Artery, Percutaneous Approach (ICD-10-PCS; 2021-10-17)
PROC: 4A133B1 Monitoring of Arterial Pressure, Peripheral, Percutaneous Approach (ICD-10-PCS; 2021-10-17)
PROC: 0W9930Z Drainage of Right Pleural Cavity with Drainage Device, Percutaneous Approach (ICD-10-PCS; 2021-10-22)
PROC: 0W9930Z Drainage of Right Pleural Cavity with Drainage Device, Percutaneous Approach (ICD-10-PCS; 2021-10-25)
PROC: 0W9930Z Drainage of Right Pleural Cavity with Drainage Device, Percutaneous Approach (ICD-10-PCS; 2021-10-29)
PROC: 0W9930Z Drainage of Right Pleural Cavity with Drainage Device, Percutaneous Approach (ICD-10-PCS; 2021-11-08)
PROC: 0W9930Z Drainage of Right Pleural Cavity with Drainage Device, Percutaneous Approach (ICD-10-PCS; 2021-11-23)
DX: U07.1 COVID-19 (principal); J95.811 Postprocedural pneumothorax; J12.82 Pneumonia due to coronavirus disease 2019; R65.21 Severe sepsis with septic shock; A41.9 Sepsis, unspecified organism; G92.8 Other toxic encephalopathy; E43 Unspecified severe protein-calorie malnutrition; J15.9 Unspecified bacterial pneumonia; J80 Acute respiratory distress syndrome; G72.81 Critical illness myopathy; G62.81 Critical illness polyneuropathy; I44.2 Atrioventricular block, complete; J94.8 Other specified pleural conditions; I82.412 Acute embolism and thrombosis of left femoral vein; I47.2 Ventricular tachycardia; E87.2 Acidosis; J90 Pleural effusion, not elsewhere classified; D68.59 Other primary thrombophilia; D62 Acute posthemorrhagic anemia; D68.51 Activated protein C resistance; J98.11 Atelectasis; B37.49 Other urogenital candidiasis; J95.859 Other complication of respirator [ventilator]; J98.2 Interstitial emphysema; L89.152 Pressure ulcer of sacral region, stage 2; I48.0 Paroxysmal atrial fibrillation; M06.9 Rheumatoid arthritis, unspecified; Z66 Do not resuscitate; Z51.5 Encounter for palliative care; I10 Essential (primary) hypertension; E53.1 Pyridoxine deficiency; E53.8 Deficiency of other specified B group vitamins; E87.70 Fluid overload, unspecified; E66.9 Obesity, unspecified; Z68.38 Body mass index [BMI] 38.0-38.9, adult; R00.1 Bradycardia, unspecified; M79.7 Fibromyalgia; F41.9 Anxiety disorder, unspecified; M21.372 Foot drop, left foot; M19.90 Unspecified osteoarthritis, unspecified site; H66.92 Otitis media, unspecified, left ear; R74.01 Elevation of levels of liver transaminase levels; Z79.1 Long term (current) use of non-steroidal anti-inflammatories (NSAID); Z79.01 Long term (current) use of anticoagulants; Z79.899 Other long term (current) drug therapy; Z86.718 Personal history of other venous thrombosis and embolism; Z86.711 Personal history of pulmonary embolism; Z87.01 Personal history of pneumonia (recurrent); Z90.49 Acquired absence of other specified parts of digestive tract; Z90.710 Acquired absence of both cervix and uterus; Z87.19 Personal history of other diseases of the digestive system; Z87.42 Personal history of other diseases of the female genital tract; Z87.39 Personal history of other diseases of the musculoskeletal system and connective tissue; Z98.1 Arthrodesis status; Z98.890 Other specified postprocedural states; Z71.3 Dietary counseling and surveillance; Z88.6 Allergy status to analgesic agent; Z88.1 Allergy status to other antibiotic agents; Z88.5 Allergy status to narcotic agent; Z88.0 Allergy status to penicillin; Z88.2 Allergy status to sulfonamides; Z88.8 Allergy status to other drugs, medicaments and biological substances
CPT/HCPCS: 36415; 36573; 36600; 43246; 70450; 71045; 71275; 72125; 80048; 80051; 80053; 82085; 82533; 82550; 82607; 82746; 82805; 83036; 83605; 83615; 83625; 83735; 83880; 83921; 84132; 84145; 84207; 84443; 84484; 85025; 85027; 85379; 85384; 85610; 85730; 86140; 86431; 86850; 86900; 86901; 86920; 87040; 87070; 87086; 87205; 87635; 87636; 93005; 93306; 93308; 93880; 93970; 94002; 94003; 94660; 96361; 96365; 96375; 99291